=== PATIENT | female | born 1975 | race African-American/Black ===

== ENCOUNTER → 2020-01-09 14:00 | Outpatient (BNVA) | payer OTHER, SELFPAY | PROVIDERS: PCP Nurse Practitioner Family; Referring Provider Nurse Practitioner Family; Visit Provider Urology | DX: N30.10 Interstitial cystitis (chronic) without hematuria (principal); R35.1 Nocturia | CPT/HCPCS: 99212 ==

== ENCOUNTER → 2020-01-11 12:57 | Outpatient (BNVA) | payer OTHER, SELFPAY | PROVIDERS: PCP Nurse Practitioner Family; Visit Provider Urology | DX: R35.1 Nocturia (principal); N30.10 Interstitial cystitis (chronic) without hematuria; R10.2 Pelvic and perineal pain | CPT/HCPCS: 51700; 52000; 99212 ==

== ENCOUNTER → 2020-04-01 14:26 | Outpatient (BNVA) | payer OTHER, SELFPAY | PROVIDERS: PCP Nurse Practitioner Family; Visit Provider Internal Medicine Gastroenterology ==

== ENCOUNTER → 2020-05-21 13:36 | Outpatient (BNVA) | payer OTHER, SELFPAY | PROVIDERS: PCP Nurse Practitioner Family; Visit Provider Urology | DX: Z13.89 Encounter for screening for other disorder (principal) | CPT/HCPCS: 99212 ==

== ENCOUNTER → 2020-07-29 13:26 | Outpatient (BNVA) | payer OTHER, SELFPAY | PROVIDERS: PCP Nurse Practitioner Family; Visit Provider Internal Medicine Gastroenterology ==

== ENCOUNTER → 2020-09-12 14:57 | Outpatient (BNVA) | payer OTHER, SELFPAY | PROVIDERS: PCP Nurse Practitioner Family ==

== ENCOUNTER 2020-10-13 07:04 | Day surgery (SDC) | payer OTHER, SELFPAY ==
[2020-10-07 09:31] VITALS: BMI 35.7
[2020-10-13] VITALS (11 sets, daily range): BP systolic 109–168; BP diastolic 73–99; PULSE 65–84; RESP 16–20; TEMP 36.2–37; O2SAT 95–100
--- NOTE | 2020-10-13 07:39 | P.HPSUR_ITS ---
Pre-Procedural Eval Section A Date of Service: 10/13/20 Section B Chief Complaint: cystitis Details of Present Illness: recurrent IC Relevant Social History: None Present Medications: see Short Stay Collaborative assessment Medical History: No relevant PMH History of Previous Operations: Relevant previous surgery/procedure and date(s) Allergies: Allergies Allergy/AdvReac Type Severity Reaction Status Date / Time sertraline [From ZOLOFT] Allergy Intermediate prolonged Verified 10/07/20 09:01 QT interval Sulfa (Sulfonamide Allergy Intermediate RASH Verified 10/07/20 09:01 Antibiotics) [SULFA (SULFONAMIDE ANTIBIOTICS)] sulfamethoxazole Allergy Intermediate Rash Verified 10/07/20 09:01 [From BACTRIM] trimethoprim [From BACTRIM] Allergy Intermediate Rash Verified 10/07/20 09:01 morphine [MORPHINE] Allergy Mild Rash Verified 10/07/20 09:01 NSAIDS (Non-Steroidal AdvReac Intermediate STOMACH Verified 10/07/20 09:01 Anti-Inflamma UPSET [NSAIDS (NON-STEROIDAL ANTI-INFLAMMA] Review of Systems Sugical H&P ROS: Negative: Constitution, Cardiovascular, Respiratory, Neurological, Psychiatric, Hem-Onc, Allergic/Immunologic, Gastrointestinal, Genitourinary, Musculoskeletal, Integumentary, Endocrine and E yes/Ears/Nose/Throat Exam Surgical H&P Exam: Normal: HEENT, Normal: Heart, Normal: Lungs, Normal: Extremities, Normal: Abdomen, Normal: Skin and Normal: Neurological Plan Diagnosis/Plan: Unchanged (hydrodistention) I have reviewed the history and physical and performed a pertinent physical examination on my patient. No changes have occurred unless specified.
--- NOTE | 2020-10-13 07:41 | P.CONAN_ITS ---
HPI - Anesthesia Eval Consult details Narrative: 45 yo female patient for Cystoscopy, hydrodistension PMFSH Active Problems Active Problems: All Active Problems (Updated 10/07/20 @ 16:44 by Moraima marie) Nausea & vomiting (Acute) Diarrhea associated with pseudomembranous colitis (Acute) Epigastric abdominal pain (Acute) Dysuria (Acute) Interstitial cystitis (Acute) Nocturia more than twice per night (Acute) Pelvic pain in female (Acute) Past Medical History Medical History Anxiety Arthritis Asthma Burn injury Elevated cholesterol HTN (hypertension) Hypersomnia IBS (irritable bowel syndrome) Low back pain Mood disorder Numbness OAB (overactive bladder) Sleep apnea SOB (shortness of breath) Family History Family History Father Hx of colon cancer, stage IV Mother Family history of high blood pressure Family history of problems with anesthesia: No Surgical History Surgical History H/O gastric bypass History of History of colonoscopy History of cystoscopy Hx of endoscopy Hx of hysterectomy Hx of laparoscopic gastric banding History of Problems with Anesthesia: No Social History Social History Alcohol intake: never Patient Tobacco Use Status: Never used Tobacco Use of substances other than those prescribed or required for medical reasons: Yes Substance Use Type: Marijuana Substance Use Frequency: Daily Are you DNR?: No Advance Directives: No Advance Directives Information Provided: No Advance Directives on File: No Patient : No Meds Allergies Allergy/AdvReac Type Severity Reaction Status Date / Time sertraline [From ZOLOFT] Allergy Intermediate prolonged Verified 10/07/20 09:01 QT interval Sulfa (Sulfonamide Allergy Intermediate RASH Verified 10/07/20 09:01 Antibiotics) [SULFA (SULFONAMIDE ANTIBIOTICS)] sulfamethoxazole Allergy Intermediate Rash Verified 10/07/20 09:01 [From BACTRIM] trimethoprim [From BACTRIM] Allergy Intermediate Rash Verified 10/07/20 09:01 morphine [MORPHINE] Allergy Mild Rash Verified 10/07/20 09:01 NSAIDS (Non-Steroidal AdvReac Intermediate STOMACH Verified 10/07/20 09:01 Anti-Inflamma UPSET [NSAIDS (NON-STEROIDAL ANTI-INFLAMMA] Active Medications: Current Medications Generic Name Dose Route Start Last Admin Trade Name Monica PRN Reason Stop Dose Admin Levofloxacin 500 mg 10/13/20 07:38 Levofloxacin 500 Mg Tablet PO 10/13/20 07:39 ONCE ONE Home Medications Medication Instructions Recorded Confirmed Last Taken Type amlodipine 2.5 mg tablet 25 mg PO DAILY tab 07/29/20 10/07/20 10/13/20 06:30 History clonazepam 0.5 mg disintegrating 0.5 mg PO DAILY 07/29/20 10/07/20 10/13/20 06:30 History tablet promethazine 25 mg tablet 25 mg PO TID PRN 07/29/20 10/07/20 Unknown History zolpidem 5 mg tablet (Ambien) 5 mg PO BEDTIME PRN 07/29/20 10/07/20 Unknown History albuterol sulfate 1 vial INHALATION Q6H 10/07/20 10/07/20 Unknown History albuterol sulfate 90 mcg/actuation 2 puff PO Q6H PRN 10/07/20 10/07/20 Unknown History aerosol inhaler (ProAir HFA) bupropion HCl 150 mg 24 hr tablet, 1 tab PO QAM 10/07/20 10/07/20 Unknown History extended release divalproex 500 mg tablet,extended 1,000 mg PO BEDTIME 10/07/20 10/07/20 Unknown History release 24 hr divalproex 500 mg tablet,extended 500 mg PO DAILY@0730 10/07/20 10/07/20 10/13/20 06:30 History release 24 hr fluoxetine 10 mg capsule 10 mg PO DAILY 10/07/20 10/07/20 10/13/20 06:30 History fluticasone propionate 220 2 puff PO BID 10/07/20 10/07/20 Unknown History mcg/actuation HFA aerosol inhaler (Flovent HFA) gabapentin 100 mg capsule 200 mg PO TID 10/07/20 10/07/20 10/13/20 06:30 History montelukast 10 mg tablet 1 tab PO DAILY 10/07/20 10/07/20 Unknown History oxycodone 15 mg tablet 1 tab PO Q4H PRN 10/07/20 10/07/20 10/13/20 06:30 History quetiapine 200 mg tablet 1 tab PO BEDTIME PRN 10/07/20 10/07/20 Unknown History Exam Exam Date and Time: October 13, 2020 0741 Height,Weight and Vital Signs: Height 5 ft 5 in Weight 97.522 kg Last Vital Signs Temp 98.6 F 10/13/20 07:29 Pulse 68 10/13/20 07:29 Resp 16 10/13/20 07:29 BP 109/80 10/13/20 07:29 Pulse Ox 95 10/13/20 07:29 Airway Mallampati Class: II TM Dist: >3cm Neck ROM: Full Partial: Upper and Lower Heart: RRR Lungs: CTAB Assessment and Plan Assessment Anesthesia Assessment: Anesthesia Plan Discussed and Chart Reviewed Final Anesthetic Review Family History of Problems with Anesthesia: No History of Problems with Anesthesia: No NPO: Yes ASA Class: III Final Preanesthetic Review: No Changes in Pt Med Stat, Meds/Allgs Chart Reviewed , Consent Obtained/Reviewed and Anes Risks/Benef Reviewed Patient Risk: Intermediate Procedure Risk: Low Assessment/Block/Sedation in SS: Assess/Block/Sedation-SS Anesthetic Plan Anesthetic Plan: GA Disposition: Standard PACU
[2020-10-13] MEDS: levoFLOXacin 500 MG TABLET PO (07:43)
[2020-10-13] MEDS: Lactated Ringers 1,000 ML 100 ML IVCONT (07:43)
--- NOTE | 2020-10-13 08:26 | W.PM.OPN ---
Operative Note Operative Note Date of Service: 10/13/20 Narrative: PreOperative Diagnosis: Interstitial cystitis with pelvic pain Post Operative Diagnosis: Interstitial cystitis with pelvic pain Procedure: Hydrodistention Surgeon: Dr Kenneth Rodriguez Anesthesia: General Indications for procedure: Is a 45-year-old female with known interstitial cystitis. Prior hydrodistention with success in 2019. Recurrent pelvic pain syndrome. Requesting repeat hydrodistention. Procedure: After informed consent was verified the patient was brought to the operating room and placed in a supine position. Anesthesia was administered per protocol. The patient was placed in a modified dorsal lithotomy position and prepped and draped in sterile fashion. Safety pause time-out was observed. Antibiotics being given. A 22 [place]onian cystoscope was used to empty the bladder. A mixture of bupivacaine lidocaine gel 20 cc was instilled into the bladder and allowed to sit for 2-3 minutes. A belladonna and opiate rectal suppository was placed. Hydrodistention of the bladder was performed. The bladder was filled and allowed to sit for 2 minutes. Filling was from a height of 1 m. On the 1st fill there was 850 cc within the bladder. Cystoscopy revealed glomerulations consistent with interstitial cystitis. Second filling of the bladder was performed in similar fashion. Volume was approximately 1000 cc. Terminal hematuria noted. The the bladder was emptied. The patient tolerated procedure well was extubated in operating room transferred in stable condition to the recovery area. Appropriate postprocedure pain medication was provided. Pathology: None Drains: None
[2020-10-13] MEDS: Acetaminophen 325 MG TABLET 650 MG PO (08:44)
[2020-10-13] MEDS: Phenazopyridine HCL 100 MG TABLET PO (08:45)
[2020-10-13] MEDS: oxyCODONE HCl Immed Release 5 MG TABLET PO (08:46)
[2020-10-13] MEDS: fentaNYL citrate/PF 100 MCG/2 ML VIAL 25 MCG IVPUSH ×2 (09:20→09:27)
== END 2020-10-13 10:20 | disposition home or self-care (01) ==
PROVIDERS: PCP Nurse Practitioner Family; Visit Provider Urology
PROC: 0T7B7ZZ Dilation of Bladder, Via Natural or Artificial Opening (ICD-10-PCS; CPT 52260; principal; 2020-10-13 08:30)
DX: N30.10 Interstitial cystitis (chronic) without hematuria (principal); R10.2 Pelvic and perineal pain; I10 Essential (primary) hypertension; F41.9 Anxiety disorder, unspecified; G47.33 Obstructive sleep apnea (adult) (pediatric); G47.10 Hypersomnia, unspecified; F12.90 Cannabis use, unspecified, uncomplicated; Z79.51 Long term (current) use of inhaled steroids; Z79.1 Long term (current) use of non-steroidal anti-inflammatories (NSAID); Z79.899 Other long term (current) drug therapy; Z88.2 Allergy status to sulfonamides; Z88.8 Allergy status to other drugs, medicaments and biological substances; Z98.84 Bariatric surgery status
CPT/HCPCS: 52260; J1100; J2250; J2405; J3010

== ENCOUNTER → 2020-12-11 14:01 | Outpatient (BNVA) | payer OTHER, SELFPAY | PROVIDERS: PCP Nurse Practitioner Family | DX: R35.1 Nocturia (principal) | CPT/HCPCS: 51798; 99212 ==

== ENCOUNTER 2020-12-30 16:15 | Outpatient (REF) | payer OTHER, SELFPAY ==
[2020-12-30 17:27] LABS: Anion Gap 18 (12-20); Blood Urea Nitrogen 12 mg/dL (9-16); Calcium 9.1 mg/dL (8.4-10.2); Carbon Dioxide 20 mmol/L (22-29); Chloride 106 mmol/L (96-108); Estimated Glomerular Filt Rate > 60; Glucose Random 85 mg/dL (60-115); Potassium 4.7 mmol/L (3.3-5.1); Sodium 139 mmol/L (135-145)
[2020-12-30 17:30] LABS: Valproate 109.6 mcg/mL (50.0-100.0)
== END 2020-12-30 16:16 | disposition home or self-care (01) ==
LOC: HO.LAB 16:15
PROVIDERS: PCP Nurse Practitioner Family; Visit Provider Psychiatry & Neurology Neurology
DX: R55 Syncope and collapse (principal); Z79.899 Other long term (current) drug therapy
CPT/HCPCS: 36415; 80048; 80164

== ENCOUNTER → 2021-02-03 09:58 | Outpatient (BNVA) | payer OTHER, SELFPAY | PROVIDERS: PCP Nurse Practitioner Family; Visit Provider Internal Medicine Gastroenterology ==

== ENCOUNTER → 2021-02-10 12:58 | Outpatient (BNVA) | payer OTHER, SELFPAY | PROVIDERS: PCP Nurse Practitioner Family ==

== ENCOUNTER 2021-02-23 13:48 | Outpatient (REF) | payer OTHER, SELFPAY ==
[2021-02-23 14:16] LABS: Appearance Urine CLEAR; Color Urine YELLOW; Glucose Urine UA NEG (NEG); Leukocyte Esterase Urine NEG (NEG); Nitrite Urine NEG (NEG); PH 5.5 (5.0-8.0); Specific Gravity - Urine >= 1.030 (1.005-1.025); Urine Blood NEG (NEG); Urine Ketones NEG (NEG); Urine Protein NEG (NEG-TRACE)
[2021-02-23 14:46] LABS: Mucus Urine 2+ /LPF; RBC Urine 0 /HPF (0); Squamous Epithelial Cell Urine 3+ /LPF
== END 2021-02-23 13:49 | disposition home or self-care (01) ==
LOC: HO.LAB 13:48
PROVIDERS: PCP Nurse Practitioner Family
DX: R30.0 Dysuria (principal)
CPT/HCPCS: 81001; 87086

== ENCOUNTER → 2021-04-10 13:51 | Outpatient (BNVA) | payer MEDICARE, MEDICAID, SELFPAY | PROVIDERS: PCP Nurse Practitioner Family | DX: Z13.89 Encounter for screening for other disorder (principal) | CPT/HCPCS: Q3014 ==

== ENCOUNTER → 2021-05-25 12:53 | Outpatient (BNVA) | payer MEDICARE, MEDICAID, SELFPAY | PROVIDERS: PCP Nurse Practitioner Family; Visit Provider Internal Medicine Gastroenterology | DX: Z13.89 Encounter for screening for other disorder (principal) | CPT/HCPCS: Q3014 ==

== ENCOUNTER → 2021-08-21 09:06 | Outpatient (BNVA) | payer MEDICARE, MEDICAID, SELFPAY | PROVIDERS: PCP Nurse Practitioner Family; Visit Provider Internal Medicine Gastroenterology | DX: K59.03 Drug induced constipation (principal); K59.00 Constipation, unspecified; T40.2X5D Adverse effect of other opioids, subsequent encounter; R11.2 Nausea with vomiting, unspecified | CPT/HCPCS: 99212 ==

== ENCOUNTER → 2021-08-31 13:03 | Outpatient (BNVA) | payer MEDICARE, MEDICAID, SELFPAY | PROVIDERS: PCP Nurse Practitioner Family | DX: N30.10 Interstitial cystitis (chronic) without hematuria (principal) | CPT/HCPCS: Q3014 ==

== ENCOUNTER 2021-09-15 14:14 | Outpatient (REF) | payer MEDICARE, MEDICAID, SELFPAY ==
--- NOTE | ~2021-09-15 | XR_ITS ---
EXAMINATION: XR ABDOMEN KUB CLINICAL INDICATION: Constipation. COMPARISON: 02/02/2019 TECHNIQUE: 3 views of the abdomen. FINDINGS: The lung bases are clear. The bowel gas pattern is nonobstructive. Moderate gas and stool in the colon. Surgical clips and anastomotic suture material projects over the left upper quadrant. Sclerosis of the left sacroiliac joint. XR/XR KUB IMPRESSION: Moderate stool burden.
[2021-09-15 15:02] LABS: MANUAL DIFF FLAG NO
[2021-09-15 15:21] LABS: Alanine Aminotransferase 9 U/L (0-31); Albumin Level 4.1 g/dL (3.5-5.0); Alkaline Phosphatase 71 U/L (39-117); Anion Gap 12 (12-20); Aspartate Amino Transferase 12 U/L (5-31); Bilirubin Total 0.4 mg/dL (0.0-1.0); Blood Urea Nitrogen 9 mg/dL (9-16); Calcium 8.8 mg/dL (8.4-10.2); Carbon Dioxide 26 mmol/L (22-29); Chloride 106 mmol/L (96-108); Estimated Glomerular Filt Rate > 60; Glucose Random 97 mg/dL (60-115); Potassium 3.6 mmol/L (3.3-5.1); Sodium 140 mmol/L (135-145); Total Protein 7.2 g/dL (6.5-8.0)
[2021-09-15 15:43] LABS: Erythrocyte Sedimentation Rate 19 MM/HR (0-20)
[2021-09-15 15:44] LABS: Ferritin 51 ng/mL (10-250); TSH reflex Free T4 0.14 uIU/mL (0.32-4.0)
[2021-09-15 15:58] LABS: Folate 13.3 ng/mL (> or = 4.0); Vitamin B12 293 pg/mL (200-900)
[2021-09-15 16:41] LABS: Free T4 (Free Thyroxine) 1.14 ng/dL (0.71-1.85)
[2021-09-15 19:55] LABS: Basophils Percent Auto 0.6 % (0-2); Eosinophils Percent Auto 0.4 % (0-4); Hematocrit 31.9 % (37.0-47.0); Hemoglobin 11.1 g/dl (12.0-16.0); Imm Gran Abs Auto 0.01 X10*3/uL (0.00-0.03); Imm Gran Pct Auto 0.2 % (0.0-0.4); Lymphocytes Absolute Auto 2.2 X10*3/uL (1.2-4.9); Lymphocytes Percent Auto 40.4 % (20-40); Mean Corpuscular HGB Conc 34.8 g/dl (31.0-35.0); Mean Corpuscular Hemoglobin 29.6 pg (27.0-33.0); Mean Corpuscular Volume 85.1 fL (80.0-98.0); Mean Platelet Volume 10.7 fL (9.4-12.3); Monocytes Absolute Auto 0.5 X10*3/uL (0.1-1.2); Monocytes Percent Auto 8.7 % (2-11); Neutrophils Absolute Auto 2.7 x10*3/uL (2.0-8.3); Neutrophils Percent Auto 49.7 % (45-73); Platelet Count 181 X10*3/uL (160-400); Red Blood Count 3.75 X10*6/uL (4.20-5.50); Red Cell Distribution Width 13.7 % (11.0-16.0); White Blood Count 5.4 X10*3/uL (4.8-10.8)
[2021-09-17 11:31] LABS: Immunoglobulin G 1345 mg/dL (600-1640)
[2021-09-18 16:16] LABS: Zinc 78 mcg/dL (60-130)
[2021-09-18 16:31] LABS: Histamine Plasma <1.5 ng/mL (< OR = 1.8)
[2021-09-18 21:02] LABS: Vitamin A 51 mcg/dL (38-98)
[2021-09-19 11:26] LABS: Vitamin B6 5.4 ng/mL (2.1-21.7)
[2021-09-23 17:37] LABS: Nicotinamide 35 ng/mL; Vit B3 - Nicotinic Acid <20 ng/mL
[2021-09-25 16:37] LABS: Vitamin B5 (Pantothenic Acid) <40 ng/mL (<275)
== END 2021-09-15 14:15 | disposition home or self-care (01) ==
LOC: HO.XRAY 14:14
PROVIDERS: PCP Nurse Practitioner Family; Visit Provider Internal Medicine Gastroenterology
DX: A04.72 Enterocolitis due to Clostridium difficile, not specified as recurrent (principal); R19.7 Diarrhea, unspecified; K52.839 Microscopic colitis, unspecified; K75.81 Nonalcoholic steatohepatitis (NASH); T40.2X5A Adverse effect of other opioids, initial encounter; R11.2 Nausea with vomiting, unspecified; K59.03 Drug induced constipation
CPT/HCPCS: 36415; 74018; 80053; 82306; 82607; 82728; 82746; 82784; 83088; 83520; 84207; 84439; 84443; 84590; 84591; 84630; 85025; 85652

== ENCOUNTER → 2021-09-25 09:09 | Outpatient (BNVA) | payer MEDICARE, MEDICAID, SELFPAY | PROVIDERS: PCP Nurse Practitioner Family; Visit Provider Internal Medicine Gastroenterology | DX: R10.9 Unspecified abdominal pain (principal); M25.569 Pain in unspecified knee | CPT/HCPCS: Q3014 ==

== ENCOUNTER 2021-12-07 09:15 | Day surgery (SDC) | payer MEDICARE, MEDICAID, SELFPAY ==
[2021-12-02 10:24] VITALS: BMI 33.3
--- NOTE | 2021-12-04 10:07 | P.CONAN_ITS ---
Documented by User: Cecilia Wolff NP 12/04/21 10:14 HPI - Anesthesia Eval Consult details Narrative: 46yo F for Cystoscopy Bladder Botox Injection s/p same 10/2020 [facility]-LMA 4 ? Daily opioids *Multiple Med Allergies* PMFSH Active Problems Active Problems: All Active Problems (Updated 09/25/21 @ 09:30 by Sivan Patino MD) Nausea & vomiting (Acute) Diarrhea associated with pseudomembranous colitis (Acute) Epigastric abdominal pain (Acute) Dysuria (Acute) Interstitial cystitis (Acute) Nocturia more than twice per night (Acute) Pelvic pain in female (Acute) Therapeutic opioid-induced constipation (OIC) (Acute) Constipation (Acute) Visceral abdominal pain (Acute) Knee pain (Acute) Past Medical History Medical History (Updated 09/25/21 @ 09:30 by Sivan Patino MD) Anxiety Arthritis Asthma Burn injury Elevated cholesterol HTN (hypertension) Hypersomnia IBS (irritable bowel syndrome) Low back pain Mood disorder Numbness OAB (overactive bladder) Sleep apnea SOB (shortness of breath) Family History Family History Father Hx of colon cancer, stage IV Mother Family history of high blood pressure Family history of problems with anesthesia: No Surgical History Surgical History (Updated 12/02/21 @ 10:30 by Jannette Alicia RN) H/O gastric bypass History of History of colonoscopy History of cystoscopy Hx of endoscopy Hx of hysterectomy Hx of laparoscopic gastric banding History of Problems with Anesthesia: No Social History Social History Alcohol intake: never Patient Tobacco Use Status: Never used Tobacco Substance Use Type: Marijuana Meds Allergies Allergy/AdvReac Type Severity Reaction Status Date / Time sertraline [From ZOLOFT] Allergy Intermediate prolonged Verified 09/25/21 09:09 QT interval Sulfa (Sulfonamide Allergy Intermediate RASH Verified 09/25/21 09:09 Antibiotics) [SULFA (SULFONAMIDE ANTIBIOTICS)] sulfamethoxazole Allergy Intermediate Rash Verified 09/25/21 09:09 [From BACTRIM] trimethoprim [From BACTRIM] Allergy Intermediate Rash Verified 09/25/21 09:09 morphine [MORPHINE] Allergy Mild Rash Verified 09/25/21 09:09 haloperidol [From Haldol] Allergy Unknown unknown Verified 12/02/21 10:28 NSAIDS (Non-Steroidal AdvReac Intermediate STOMACH Verified 09/25/21 09:09 Anti-Inflamma UPSET [NSAIDS (NON-STEROIDAL ANTI-INFLAMMA] Home Medications Medication Instructions Recorded Confirmed Last Taken Type clonazepam 0.5 mg disintegrating 0.5 mg PO DAILY 07/29/20 10/07/20 10/13/20 06:30 History tablet promethazine 25 mg tablet 25 mg PO TID PRN Nausea 07/29/20 10/07/20 Unknown History albuterol sulfate 2.5 mg/3 mL 1 vial inhalation Q6H 10/07/20 12/02/21 Unknown History (0.083 %) solution for nebulization albuterol sulfate 90 mcg/actuation 2 puff PO Q6H PRN Shortness Of 10/07/20 12/02/21 Unknown History aerosol inhaler (ProAir HFA) Breath Or Wheezing fluoxetine 10 mg capsule 10 mg PO DAILY 10/07/20 10/07/20 10/13/20 06:30 History fluticasone propionate 220 2 puff PO BID 10/07/20 12/02/21 Unknown History mcg/actuation HFA aerosol inhaler (Flovent HFA) gabapentin 100 mg capsule 200 mg PO TID 10/07/20 12/02/21 10/13/20 06:30 History montelukast 10 mg tablet 1 tab PO DAILY 10/07/20 12/02/21 Unknown History oxycodone 15 mg tablet 1 tab PO Q4H PRN pain 10/07/20 10/07/20 10/13/20 06:30 History quetiapine 200 mg tablet 1 tab PO BEDTIME PRN insomnia 10/07/20 10/07/20 Unknown History amlodipine 10 mg tablet 10 mg PO DAILY 02/03/21 Unknown History bupropion HCl 300 mg 24 hr tablet, 300 mg PO QAM 02/03/21 12/02/21 Unknown History extended release fluoxetine 20 mg capsule 20 mg PO DAILY 02/03/21 12/02/21 Unknown History fluticasone propionate 50 2 spray intranasal DAILY 02/03/21 12/02/21 Unknown History mcg/actuation nasal spray,suspension oxcarbazepine 150 mg tablet 150 mg PO BID 02/03/21 12/02/21 Unknown History quetiapine 100 mg tablet 100 mg PO BEDTIME PRN insomnia 02/03/21 12/02/21 Unknown History tizanidine 2 mg tablet 2 mg PO Q8H PRN muscle spasm 02/03/21 Unknown History sucralfate 1 gram tablet 1 g PO QID 08/21/21 12/02/21 Unknown History ursodiol 300 mg capsule 300 mg PO BID 08/21/21 12/02/21 Unknown History amlodipine 5 mg-benazepril 10 mg 1 cap PO DAILY 09/25/21 12/02/21 Unknown History capsule buspirone 7.5 mg tablet 7.5 mg PO BID 09/25/21 12/02/21 Unknown History clonazepam 0.5 mg tablet 1 mg PO BID 09/25/21 12/02/21 Unknown History nitroglycerin 0.2 mg/hr 1 patch topical DAILY 09/25/21 Unknown History transdermal 24 hour patch scopolamine base 1 mg over 3 days 1 patch topical Q3D 09/25/21 Unknown History transdermal patch zolpidem 5 mg tablet 5 mg PO BEDTIME PRN Insomnia 09/25/21 12/02/21 Unknown History Exam Exam Date and Time: December 04, 2021 1007 Height,Weight and Vital Signs: Height 5 ft 5 in Weight 90.718 kg Pertinent Lab Results Pertinent Lab Results: Laboratory Tests 09/15/21 09/15/21 15:01 15:01 WBC 5.4 Hgb 11.1 L Hct 31.9 L Plt Count 181 Sodium 140 Potassium 3.6 D Chloride 106 Carbon Dioxide 26 BUN 9 Creatinine 0.89 Assessment and Plan Assessment Anesthesia Assessment: Chart Reviewed Final Anesthetic Review Family History of Problems with Anesthesia: No History of Problems with Anesthesia: No Documented by User: Rahat Plascencia MD 12/07/21 18:41 [facility] Past Medical History Medical History (Updated 09/25/21 @ 09:30 by Sivan Patino MD) Anxiety Arthritis Asthma Burn injury Elevated cholesterol HTN (hypertension) Hypersomnia IBS (irritable bowel syndrome) Low back pain Mood disorder Numbness OAB (overactive bladder) Sleep apnea SOB (shortness of breath) Functional capacity: uses cane/walker Family History Family History Father Hx of colon cancer, stage IV Mother Family history of high blood pressure Surgical History Surgical History (Updated 12/02/21 @ 10:30 by Jannette Alicia RN) H/O gastric bypass History of History of colonoscopy History of cystoscopy Hx of endoscopy Hx of hysterectomy Hx of laparoscopic gastric banding Social History Social History Alcohol intake: never Patient Tobacco Use Status: Never used Tobacco Substance Use Type: Marijuana Meds Allergies Allergy/AdvReac Type Severity Reaction Status Date / Time sertraline [From ZOLOFT] Allergy Intermediate prolonged Verified 09/25/21 09:09 QT interval Sulfa (Sulfonamide Allergy Intermediate RASH Verified 09/25/21 09:09 Antibiotics) [SULFA (SULFONAMIDE ANTIBIOTICS)] sulfamethoxazole Allergy Intermediate Rash Verified 09/25/21 09:09 [From BACTRIM] trimethoprim [From BACTRIM] Allergy Intermediate Rash Verified 09/25/21 09:09 morphine [MORPHINE] Allergy Mild Rash Verified 09/25/21 09:09 haloperidol [From Haldol] Allergy Unknown unknown Verified 12/02/21 10:28 NSAIDS (Non-Steroidal AdvReac Intermediate STOMACH Verified 09/25/21 09:09 Anti-Inflamma UPSET [NSAIDS (NON-STEROIDAL ANTI-INFLAMMA] Home Medications Medication Instructions Recorded Confirmed Last Taken Type clonazepam 0.5 mg disintegrating 0.5 mg PO DAILY 07/29/20 10/07/20 10/13/20 06:30 History tablet promethazine 25 mg tablet 25 mg PO TID PRN Nausea 07/29/20 10/07/20 Unknown History albuterol sulfate 2.5 mg/3 mL 1 vial inhalation Q6H 10/07/20 12/02/21 Unknown History (0.083 %) solution for nebulization albuterol sulfate 90 mcg/actuation 2 puff PO Q6H PRN Shortness Of 10/07/20 12/02/21 Unknown History aerosol inhaler (ProAir HFA) Breath Or Wheezing fluoxetine 10 mg capsule 10 mg PO DAILY 10/07/20 10/07/20 10/13/20 06:30 History fluticasone propionate 220 2 puff PO BID 10/07/20 12/02/21 Unknown History mcg/actuation HFA aerosol inhaler (Flovent HFA) gabapentin 100 mg capsule 200 mg PO TID 10/07/20 12/02/21 10/13/20 06:30 History montelukast 10 mg tablet 1 tab PO DAILY 10/07/20 12/02/21 Unknown History oxycodone 15 mg tablet 1 tab PO Q4H PRN pain 10/07/20 10/07/20 10/13/20 06:30 History quetiapine 200 mg tablet 1 tab PO BEDTIME PRN insomnia 10/07/20 10/07/20 Unknown History amlodipine 10 mg tablet 10 mg PO DAILY 02/03/21 Unknown History bupropion HCl 300 mg 24 hr tablet, 300 mg PO QAM 02/03/21 12/02/21 Unknown History extended release fluoxetine 20 mg capsule 20 mg PO DAILY 02/03/21 12/02/21 Unknown History fluticasone propionate 50 2 spray intranasal DAILY 02/03/21 12/02/21 Unknown History mcg/actuation nasal spray,suspension oxcarbazepine 150 mg tablet 150 mg PO BID 02/03/21 12/02/21 Unknown History quetiapine 100 mg tablet 100 mg PO BEDTIME PRN insomnia 02/03/21 12/02/21 U nknown History tizanidine 2 mg tablet 2 mg PO Q8H PRN muscle spasm 02/03/21 Unknown History sucralfate 1 gram tablet 1 g PO QID 08/21/21 12/02/21 Unknown History ursodiol 300 mg capsule 300 mg PO BID 08/21/21 12/02/21 Unknown History amlodipine 5 mg-benazepril 10 mg 1 cap PO DAILY 09/25/21 12/02/21 Unknown History capsule buspirone 7.5 mg tablet 7.5 mg PO BID 09/25/21 12/02/21 Unknown History clonazepam 0.5 mg tablet 1 mg PO BID 09/25/21 12/02/21 Unknown History nitroglycerin 0.2 mg/hr 1 patch topical DAILY 09/25/21 Unknown History transdermal 24 hour patch scopolamine base 1 mg over 3 days 1 patch topical Q3D 09/25/21 Unknown History transdermal patch zolpidem 5 mg tablet 5 mg PO BEDTIME PRN Insomnia 09/25/21 12/02/21 Unknown History Exam Airway Mallampati Class: IV TM Dist: >3cm Neck ROM: Full Loose/Missing/Broken Teeth: Yes (Multiple chipped , fillings ) Heart: S1,S2 Lungs: b/l breath sounds Assessment and Plan Assessment Anesthesia Assessment: Anesthesia Plan Discussed Final Anesthetic Review NPO: Yes ASA Class: II Final Preanesthetic Review: Meds/Allgs Chart Reviewed, Consent Obtained/Reviewed and Anes Risks/Benef Reviewed Patient Risk: Intermediate Procedure Risk: Intermediate Anesthetic Plan Anesthetic Plan: GA Disposition: Standard PACU
[2021-12-07 10:32] VITALS: BP 157/91; PULSE 67; RESP 16; TEMP 36.1; O2SAT 97; BMI 33.3
[2021-12-07] MEDS: Lactated Ringers 1,000 ML 100 ML IVCONT (10:53)
[2021-12-07] MEDS: levoFLOXacin 500 MG TABLET PO (11:07)
--- NOTE | 2021-12-07 11:46 | MHC.SHP ---
Pre-Procedural Eval Section A Date of Service: 12/07/21 The patient is an INPATIENT: No Changes since office visit: No Cold of Flu in the past 2 weeks, No New Medical Problems, No Changes in Medication and No Patient answered all questions The History & Physical has been completed within 30 days and I have reviewed it.: Yes Section B Chief Complaint: Interstitial cystitis (chronic) with hematuria Details of Present Illness: IC Relevant Family History (Specify if Yes): No Relevant Social History: None Present Medications: see Short Stay Collaborative assessment Medical History: No relevant PMH History of Previous Operations: Relevant previous surgery/procedure and date(s) Allergies: Allergies Allergy/AdvReac Type Severity Reaction Status Date / Time sertraline [From ZOLOFT] Allergy Intermediate prolonged Verified 09/25/21 09:09 QT interval Sulfa (Sulfonamide Allergy Intermediate RASH Verified 09/25/21 09:09 Antibiotics) [SULFA (SULFONAMIDE ANTIBIOTICS)] sulfamethoxazole Allergy Intermediate Rash Verified 09/25/21 09:09 [From BACTRIM] trimethoprim [From BACTRIM] Allergy Intermediate Rash Verified 09/25/21 09:09 morphine [MORPHINE] Allergy Mild Rash Verified 09/25/21 09:09 haloperidol [From Haldol] Allergy Unknown unknown Verified 12/02/21 10:28 NSAIDS (Non-Steroidal AdvReac Intermediate STOMACH Verified 09/25/21 09:09 Anti-Inflamma UPSET [NSAIDS (NON-STEROIDAL ANTI-INFLAMMA] Review of Systems Sugical H&P ROS: Negative: Constitution, Cardiovascular, Respiratory, Neurological, Psychiatric, Hem-Onc, Allergic/Immunologic, Gastrointestinal, Genitourinary, Musculoskeletal, Integumentary, Endocrine and Eyes/Ears/Nose/Throat Exam Surgical H&P Exam: Normal: HEENT, Normal: Heart, Normal: Lungs, Normal: Extremities, Normal: Abdomen, Normal: Skin and Normal: Neurological Plan Diagnosis/Plan: Unchanged (Plan hydrodistention) I have reviewed the history and physical and performed a pertinent physical examination on my patient. No changes have occurred unless specified.
[2021-12-07 12:40] VITALS: BP 169/97; PULSE 64; RESP 18; TEMP 36.7; O2SAT 100
--- NOTE | 2021-12-07 12:43 | W.PM.OPN ---
Operative Note Operative Note Date of Service: 12/07/21 Narrative: PreOperative Diagnosis: Interstitial cystitis with pelvic pain Post Operative Diagnosis: Interstitial cystitis with pelvic pain Procedure: Hydrodistention Surgeon: Dr Kenneth Rodriguez Anesthesia: General Indications for procedure: 46-year-old female with known interstitial cystitis. Last hydrodistention was October 2020. Procedure: After informed consent was verified the patient was brought to the operating room and placed in a supine position. Anesthesia was administered per protocol. The patient was placed in a modified dorsal lithotomy position and prepped and draped in sterile fashion. Safety pause time-out was observed. Antibiotics being given. A 22 Chinese cystoscope was used to empty the bladder. A mixture of bupivacaine lidocaine gel 20 cc was instilled into the bladder and allowed to sit for 2-3 minutes. A belladonna and opiate rectal suppository was placed. Hydrodistention of the bladder was performed. The bladder was filled and allowed to sit for 2 minutes. Filling was from a height of 1 m. On the 1st fill there was Eight hundred fifty cc within the bladder. Cystoscopy revealed glomerulations consistent with interstitial cystitis. moderate trabeculations consistent with collagen deposition and decreasing bladder wall compliance. Second filling of the bladder was performed in similar fashion. Volume was approximately 950 cc. Terminal hematuria noted. The the bladder was emptied. The patient tolerated procedure well was extubated in operating room transferred in stable condition to the recovery area. Appropriate postprocedure pain medication was provided. Pathology: - Drains: None
[2021-12-07 12:45] VITALS: BP 173/103; PULSE 63; RESP 18; O2SAT 100
[2021-12-07 12:50] VITALS: BP 151/74; PULSE 85; RESP 18; O2SAT 98
[2021-12-07] MEDS: Acetaminophen 325 MG TABLET 650 MG PO (12:52)
[2021-12-07] MEDS: Phenazopyridine HCL 100 MG TABLET PO (12:52)
[2021-12-07] MEDS: oxyCODONE HCl Immed Release 5 MG TABLET PO (12:53)
[2021-12-07 12:57] VITALS: BP 157/98; PULSE 78; RESP 18; O2SAT 100
[2021-12-07 13:12] VITALS: BP 156/100; PULSE 74; RESP 16; TEMP 36.4; O2SAT 99
== END 2021-12-07 14:37 | disposition home or self-care (01) ==
PROVIDERS: PCP Nurse Practitioner Family; Visit Provider Urology
PROC: 0T7B7ZZ Dilation of Bladder, Via Natural or Artificial Opening (ICD-10-PCS; CPT 52260; principal; 2021-12-07 10:40)
DX: N30.11 Interstitial cystitis (chronic) with hematuria (principal); N32.81 Overactive bladder; I10 Essential (primary) hypertension; E78.00 Pure hypercholesterolemia, unspecified; J45.909 Unspecified asthma, uncomplicated; G47.33 Obstructive sleep apnea (adult) (pediatric); Z79.51 Long term (current) use of inhaled steroids; Z79.899 Other long term (current) drug therapy; Z88.2 Allergy status to sulfonamides; Z88.8 Allergy status to other drugs, medicaments and biological substances; F12.90 Cannabis use, unspecified, uncomplicated; Z98.84 Bariatric surgery status
CPT/HCPCS: 52260; J1100; J2250; J2405; J3010

== ENCOUNTER → 2021-12-28 14:15 | Outpatient (BNVA) | payer MEDICARE, MEDICAID, SELFPAY | PROVIDERS: PCP Nurse Practitioner Family; Visit Provider Internal Medicine | DX: M54.50 Low back pain, unspecified (principal); G89.29 Other chronic pain; M53.3 Sacrococcygeal disorders, not elsewhere classified; M25.561 Pain in right knee; M25.562 Pain in left knee; M47.816 Spondylosis without myelopathy or radiculopathy, lumbar region; R10.9 Unspecified abdominal pain; Z98.84 Bariatric surgery status | CPT/HCPCS: 99202 ==

== ENCOUNTER → 2022-01-22 14:48 | Outpatient (BNVA) | payer MEDICARE, MEDICAID, SELFPAY | PROVIDERS: PCP Nurse Practitioner Family; Visit Provider Urology | DX: N30.10 Interstitial cystitis (chronic) without hematuria (principal); R10.2 Pelvic and perineal pain; R23.2 Flushing; T44.3X5A Adverse effect of other parasympatholytics [anticholinergics and antimuscarinics] and spasmolytics, initial encounter | CPT/HCPCS: Q3014 ==

== ENCOUNTER → 2022-01-25 13:59 | Outpatient (BNVA) | payer MEDICARE, MEDICAID, SELFPAY | PROVIDERS: PCP Nurse Practitioner Family; Visit Provider Internal Medicine Gastroenterology | DX: Z13.89 Encounter for screening for other disorder (principal) | CPT/HCPCS: 99212 ==

== ENCOUNTER 2022-01-25 14:42 | Emergency (ER) | payer MEDICARE, MEDICAID, SELFPAY ==
[2022-01-25 15:07] VITALS: BP 148/94; PULSE 83; RESP 20; TEMP 36.4; O2SAT 99; BMI 33.3
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
--- NOTE | 2022-01-25 15:12 | ECG_ITS ---
Test Reason : DEHYDRATION Blood Pressure : / mmHG Vent. Rate : 073 BPM Atrial Rate : 073 BPM P-R Int : 172 ms QRS Dur : 074 ms QT Int : 418 ms P-R-T Axes : 014 007 008 degrees QTc Int : 460 ms Normal sinus rhythm Nonspecific T wave abnormality Prolonged QT Abnormal ECG No previous ECGs available Referred By: Rhea Vicente Electronically Signed By:JARETH LOPEZ MD
[2022-01-25 17:43] LABS: Imm Gran Abs Auto 0.03 X10*3/uL (0.00-0.03); Imm Gran Pct Auto 0.3 % (0.0-0.4); MANUAL DIFF FLAG SCAN; PLT CLUMP 1; Red Cell Distribution Width 13.1 % (11.0-16.0); SCAN SMEAR FLAG 1
[2022-01-25 17:45] LABS: Basophils Percent Auto 0.4 % (0-2); Eosinophils Percent Auto 0.1 % (0-4); Hematocrit 36.5 % (37.0-47.0); Hemoglobin 12.4 g/dl (12.0-16.0); Lymphocytes Absolute Auto 2.3 X10*3/uL (1.2-4.9); Lymphocytes Percent Auto 21.2 % (20-40); Mean Corpuscular Hemoglobin 29.2 pg (27.0-33.0); Mean Corpuscular Volume 85.9 fL (80.0-98.0); Monocytes Absolute Auto 0.4 X10*3/uL (0.1-1.2); Neutrophils Absolute Auto 8.1 x10*3/uL (2.0-8.3); Red Blood Count 4.25 X10*6/uL (4.20-5.50)
[2022-01-25 17:47] LABS: COVID-19 Test Negative (Negative); IDNOW Serial# 9DB6401D
[2022-01-25 17:48] LABS: White Blood Count 10.9 X10*3/uL (4.8-10.8)
[2022-01-25 17:49] LABS: Lactic Acid 0.9 mmol/L (0.5-2.0)
[2022-01-25 17:52] LABS: Alanine Aminotransferase 12 U/L (0-31); Albumin Level 4.8 g/dL (3.5-5.0); Alkaline Phosphatase 90 U/L (39-117); Anion Gap 18 (12-20); Aspartate Amino Transferase 17 U/L (5-31); Bilirubin Direct 0.2 mg/dL (0.0-0.5); Bilirubin Total 0.5 mg/dL (0.0-1.0); Blood Urea Nitrogen 8 mg/dL (9-16); Calcium 9.6 mg/dL (8.4-10.2); Carbon Dioxide 22 mmol/L (22-29); Chloride 105 mmol/L (96-108); Creatinine Clr Calc Pharmacy 98.8; Estimated Glomerular Filt Rate > 60; Glucose Random 91 mg/dL (60-115); Lipase 21 U/L (8-78); Magnesium 1.8 mg/dL (1.6-2.6); Potassium 3.5 mmol/L (3.3-5.1); Sodium 141 mmol/L (135-145); Total Protein 8.6 g/dL (6.5-8.0)
[2022-01-25 17:56] LABS: Troponin-I High Sensitivity < 3.5 ng/L (<3.5-17.0)
[2022-01-25 18:36] LABS: Mean Platelet Volume 10.4 fL (9.4-12.3); Platelet Count 217 X10*3/uL (160-400); SLIDE REVIEW VERIFIED
[2022-01-25] MEDS: 0.9 % Sodium Chloride 1,000 ML 999 ML IV ×2 (21:31→21:32)
[2022-01-25] MEDS: Prochlorperazine Edisylate 10 MG/2 ML VIAL IVPUSH (21:33)
[2022-01-25] MEDS: HYDROmorphone HCl 1 MG/ML SYRINGE IVPUSH (21:33)
[2022-01-25] MEDS: Midazolam HCl/PF 2 MG/2 ML VIAL 1 MG IVPUSH (21:33)
[2022-01-25] MEDS: Famotidine/PF 20 MG/2 ML VIAL IVPUSH (21:33)
[2022-01-25 22:42] VITALS: BP 145/106; PULSE 77; RESP 18; TEMP 36.6; O2SAT 99
[2022-01-26] VITALS: BP 136/83; PULSE 74; RESP 16; TEMP 36.8; O2SAT 100
[2022-01-26 00:38] LABS: Appearance Urine Clear; Color Urine Yellow; Glucose Urine UA Negative (Negative); Leukocyte Esterase Urine Negative (Negative); Nitrite Urine Negative (Negative); Urine Blood Negative (Negative); Urine Ketones 40 mg/dL (Negative); Urine Protein Trace mg/dL (Neg-Trace)
[2022-01-26 00:48] LABS: Amphetamine Screen Urine Not Detected (Not Detect); Barbiturates, Urine Not Detected (Not Detect); Benzodiazepines Screen Urine POSITIVE (Not Detect); Cannabinoid Screen Urine POSITIVE (Not Detect); Cocaine Screen Urine Not Detected (Not Detect); Fentanyl, urine Not Detected (Not Detect); Opiate Screen Urine Not Detected (Not Detect); Phencyclidine Screen Urine Not Detected (Not Detect)
== END 2022-01-26 01:16 | disposition home or self-care (01) ==
PROVIDERS: Emergency Medicine; Emergency Provider Internal Medicine; PCP Nurse Practitioner Family
DX: R11.15 Cyclical vomiting syndrome unrelated to migraine (principal); R10.9 Unspecified abdominal pain; Z20.822 Contact with and (suspected) exposure to COVID-19; I10 Essential (primary) hypertension; F12.90 Cannabis use, unspecified, uncomplicated; Z79.899 Other long term (current) drug therapy
CPT/HCPCS: 36415; 80048; 80076; 80307; 81003; 83605; 83690; 83735; 84484; 85025; 87040; 87635; 93005; 96361; 96374; 96375; 99212; 99284; J1170; J2250

== ENCOUNTER → 2022-03-29 14:09 | Outpatient (BNVA) | payer MEDICARE, MEDICAID, SELFPAY | PROVIDERS: PCP Nurse Practitioner Family; Visit Provider Internal Medicine Gastroenterology | DX: K58.0 Irritable bowel syndrome with diarrhea (principal); Z98.84 Bariatric surgery status | CPT/HCPCS: Q3014 ==

== ENCOUNTER 2022-04-06 11:26 | Day surgery (SDC) | payer MEDICARE, MEDICAID, SELFPAY ==
--- NOTE | 2022-04-05 10:42 | HO.ANESPROP2 ---
Documented by User: Cecilia Wolff NP 04/05/22 10:45 HPI - Anesthesia Eval Consult details Narrative: 46yo F for Upper Endoscopy and Colonoscopy s/p cysto 11/2021 with GA-LMA 4 Chronic prn opioids *Multiple Med Allergies* PMFSH Active Problems Active Problems: All Active Problems (Updated 01/27/22 @ 00:02 by Austin Sabillon) Lumbar spondylosis (Acute) Right knee pain (Acute) Nausea & vomiting (Acute) Diarrhea associated with pseudomembranous colitis (Acute) Epigastric abdominal pain (Acute) Dysuria (Acute) Interstitial cystitis (Acute) Nocturia more than twice per night (Acute) Pelvic pain in female (Acute) Therapeutic opioid-induced constipation (OIC) (Acute) Constipation (Acute) Visceral abdominal pain (Acute) Knee pain (Acute) Past Medical History Medical History Anxiety Arthritis Asthma Burn injury Elevated cholesterol HTN (hypertension) Hypersomnia IBS (irritable bowel syndrome) Low back pain Mood disorder Numbness OAB (overactive bladder) Sleep apnea SOB (shortness of breath) Family History Family History Father Hx of colon cancer, stage IV Mother Family history of high blood pressure Family history of problems with anesthesia: No Surgical History Surgical History H/O gastric bypass History of History of colonoscopy History of cystoscopy Hx of endoscopy Hx of hernia repair Hx of hysterectomy Hx of laparoscopic gastric banding History of Problems with Anesthesia: No Social History Social History Alcohol intake: never Patient Tobacco Use Status: Never used Tobacco Use of substances other than those prescribed or required for medical reasons: Yes Substance Use Type: Marijuana Substance Use Frequency: Weekly Advance Directives: No Advance Directives Information Provided: Yes Meds Allergies Allergy/AdvReac Type Severity Reaction Status Date / Time sertraline [From ZOLOFT] Allergy Intermediate prolonged Verified 03/29/22 14:10 QT interval Sulfa (Sulfonamide Allergy Intermediate RASH Verified 03/29/22 14:10 Antibiotics) [SULFA (SULFONAMIDE ANTIBIOTICS)] morphine [MORPHINE] Allergy Mild Rash Verified 03/29/22 14:10 haloperidol [From Haldol] Allergy Unknown unknown Verified 03/29/22 14:10 NSAIDS (Non-Steroidal AdvReac Intermediate STOMACH Verified 03/29/22 14:10 Anti-Inflamma UPSET [NSAIDS (NON-STEROIDAL ANTI-INFLAMMA] fentanyl patch Allergy Severe Unresponsiv Uncoded 03/29/22 14:10 e Home Medications Medication Instructions Recorded Confirmed Last Taken Type albuterol sulfate 2.5 mg/3 mL 1 vial inhalation Q6H 10/07/20 01/22/22 Unknown History (0.083 %) solution for nebulization fluticasone propionate 220 2 puff PO BID 10/07/20 01/22/22 Unknown History mcg/actuation HFA aerosol inhaler (Flovent HFA) montelukast 10 mg tablet 1 tab PO DAILY 10/07/20 01/22/22 Unknown History oxycodone 15 mg tablet 1 tab PO Q4H PRN pain 10/07/20 01/22/22 10/13/20 06:30 History quetiapine 200 mg tablet 1 tab PO BEDTIME PRN insomnia 10/07/20 01/22/22 Unknown History bupropion HCl 300 mg 24 hr tablet, 300 mg PO QAM 02/03/21 01/22/22 Unknown History extended release fluticasone propionate 50 2 spray intranasal DAILY 02/03/21 01/22/22 Unknown History mcg/actuation nasal spray,suspension oxcarbazepine 150 mg tablet 150 mg PO BID 02/03/21 01/22/22 Unknown History tizanidine 2 mg tablet 2 mg PO Q8H PRN muscle spasm 02/03/21 01/22/22 Unknown History amlodipine 5 mg-benazepril 10 mg 1 cap PO DAILY 09/25/21 01/22/22 Unknown History capsule zolpidem 5 mg tablet 5 mg PO BEDTIME PRN Insomnia 09/25/21 01/22/22 Unknown History clonazepam 0.5 mg tablet 0.5 mg PO QID 12/28/21 01/22/22 Unknown History quetiapine 25 mg tablet 25 mg PO DAILY 12/28/21 01/22/22 Unknown History amlodipine 5 mg tablet 5 mg PO DAILY 01/25/22 Unknown History buspirone 10 mg tablet 10 mg PO BID 01/25/22 Unknown History buspirone 7.5 mg tablet 7.5 mg PO DAILY PRN 01/25/22 Unknown History fluoxetine 20 mg capsule 20 mg PO DAILY 01/25/22 Unknown History oxcarbazepine 300 mg tablet 450 mg PO BID 01/25/22 Unknown History scopolamine base 1 mg over 3 days 1 patch transdermal Q3D 01/25/22 Unknown History transdermal patch Exam Exam Date and Time: April 05, 2022 1042 Height,Weight and Vital Signs: Height 5 ft 5 in Weight 90.718 kg Pertinent Lab Results Pertinent Lab Results: Laboratory Tests 01/25/22 01/25/22 17:20 17:20 WBC 10.9 H Hgb 12.4 Hct 36.5 L Plt Count 217 Sodium 141 Potassium 3.5 Chloride 105 Carbon Dioxide 22 BUN 8 L Creatinine 0.80 Narrative Narrative: EKG 01/2022 (in ED for cyclic vomiting) Vent. Rate : 073 BPM ? ? Atrial Rate : 073 BPM ?? P-R Int : 172 ms? QRS Dur : 074 ms ? ? QT Int : 418 ms ? ? ? P-R-T Axes : 014 007 008 degrees ?? QTc Int : 460 ms ? Normal sinus rhythm Nonspecific T wave abnormality Prolonged QT Abnormal ECG No previous ECGs available Assessment and Plan Assessment Anesthesia Assessment: Chart Reviewed Final Anesthetic Review Family History of Problems with Anesthesia: No History of Problems with Anesthesia: No Documented by User: Rahat Plascencia MD 04/06/22 17:51 HPI - Anesthesia Eval Consult details Narrative: 46yo F for Upper Endoscopy and Colonoscopy s/p cysto 11/2021 with GA-LMA 4 Chronic prn opioids *Multiple Med Allergies* copd PMFSH Past Medical History Medical History Anxiety Arthritis Asthma Burn injury Elevated cholesterol HTN (hypertension) Hypersomnia IBS (irritable bowel syndrome) Low back pain Mood disorder Numbness OAB (overactive bladder) Sleep apnea SOB (shortness of breath) Functional capacity: uses cane/walker Family History Family History Father Hx of colon cancer, stage IV Mother Family history of high blood pressure Surgical History Surgical History H/O gastric bypass History of History of colonoscopy History of cystoscopy Hx of endoscopy Hx of hernia repair Hx of hysterectomy Hx of laparoscopic gastric banding Social History Social History Alcohol intake: never Patient Tobacco Use Status: Never used Tobacco Use of substances other than those prescribed or required for medical reasons: Yes Substance Use Type: Marijuana Substance Use Frequency: Weekly Advance Directives: No Advance Directives Information Provided: Yes Meds Allergies Allergy/AdvReac Type Severity Reaction Status Date / Time sertraline [From ZOLOFT] Allergy Intermediate prolonged Verified 03/29/22 14:10 QT interval Sulfa (Sulfonamide Allergy Intermediate RASH Verified 03/29/22 14:10 Antibiotics) [SULFA (SULFONAMIDE ANTIBIOTICS)] morphine [MORPHINE] Allergy Mild Rash Verified 03/29/22 14:10 haloperidol [From Haldol] Allergy Unknown unknown Verified 03/29/22 14:10 NSAIDS (Non-Steroidal AdvReac Intermediate STOMACH Verified 03/29/22 14:10 Anti-Inflamma UPSET [NSAIDS (NON-STEROIDAL ANTI-INFLAMMA] fentanyl patch Allergy Severe Unresponsiv Uncoded 03/29/22 14:10 e Home Medications Medication Instructions Recorded Confirmed Last Taken Type albuterol sulfate 2.5 mg/3 mL 1 vial inhalation Q6H 10/07/20 01/22/22 Unknown History (0.083 %) solution for nebulization fluticasone propionate 220 2 puff PO BID 10/07/20 01/22/22 Unknown History mcg/actuation HFA aerosol inhaler (Flovent HFA) montelukast 10 mg tablet 1 tab PO DAILY 10/07/20 01/22/22 Unknown History oxycodone 15 mg tablet 1 tab PO Q4H PRN pain 10/07/20 01/22/22 10/13/20 06:30 History quetiapine 200 mg tablet 1 tab PO BEDTIME PRN insomnia 10/07/20 01/22/22 Unknown History bupropion HCl 300 mg 24 hr tablet, 300 mg PO QAM 02/03/21 01/22/22 Unknown History extended release fluticasone propionate 50 2 spray intranasal DAILY 02/03/21 01/22/22 Unknown History mcg/actuation nasal spray,suspension oxcarbazepine 150 mg tablet 150 mg PO BID 02/03/21 01/22/22 Unknown History tizanidine 2 mg tablet 2 mg PO Q8H PRN muscle spasm 02/03/21 01/22/22 Unknown History amlodipine 5 mg-benazepril 10 mg 1 cap PO DAILY 09/25/21 01/22/22 Unknown History capsule zolpidem 5 mg tablet 5 mg PO BEDTIME PRN Insomnia 09/25/21 01/22/22 Unknown History clonazepam 0.5 mg tablet 0.5 mg PO QID 12/28/21 01/22/22 Unknown History quetiapine 25 mg tablet 25 mg PO DAILY 12/28/21 01/22/22 Unknown History amlodipine 5 mg tablet 5 mg PO DAILY 01/25/22 Unknown History buspirone 10 mg tablet 10 mg PO BID 01/25/22 Unknown History buspirone 7.5 mg tablet 7.5 mg PO DAILY PRN 01/25/22 Unknown History fluoxetine 20 mg capsule 20 mg PO DAILY 01/25/22 Unknown History oxcarbazepine 300 mg tablet 450 mg PO BID 01/25/22 Unknown History scopolamine base 1 mg over 3 days 1 patch transdermal Q3D 01/25/22 Unknown History transdermal patch Exam Airway Mallampati Class: III TM Dist: >3cm Neck ROM: Full Loose/Missing/Broken Teeth: Yes Heart: S1,S2 Lungs: b/l breath sounds Assessment and Plan Assessment Anesthesia Assessment: Anesthesia Plan Discussed Final Anesthetic Review NPO: Yes ASA Class: III Final Preanesthetic Review: Meds/Allgs Chart Reviewed, Consent Obtained/Reviewed and Anes Risks/Benef Reviewed Patient Risk: Intermediate Procedure Risk: Intermediate Anesthetic Plan Anesthetic Plan: MAC: Disposition: Standard PACU
[2022-04-06 11:56] VITALS: BMI 31.6
[2022-04-06 12:14] VITALS: BP 136/94; PULSE 88; RESP 16; TEMP 36.8; O2SAT 97
--- NOTE | 2022-04-06 12:29 | MHC.SHP ---
Pre-Procedural Eval Section A Date of Service: 04/06/22 The patient is an INPATIENT: No The History & Physical has been completed within 30 days and I have reviewed it.: No Section B Chief Complaint: Epigastric pain,Enterocolitis due to Clostridium d Details of Present Illness: Abdominal pain, diarrhea and weight loss Relevant Family History (Specify if Yes): Yes Relevant Social History: None Present Medications: see Short Stay Collaborative assessment Medical History: Significant History (Arthritis Asthma Burn injury Elevated cholesterol HTN (hypertension) Hypersomnia IBS (irritable bowel syndrome) Low back pain Mood disorder Numbness OAB (overactive bladder) Sleep apnea) History of Previous Operations: Relevant previous surgery/procedure and date(s) (H/O gastric bypass History of History of colonoscopy History of cystoscopy Hx of endoscopy Hx of hernia repair Hx of hysterectomy Hx of laparoscopic gastric banding) Allergies: Allergies Allergy/AdvReac Type Severity Reaction Status Date / Time sertraline [From ZOLOFT] Allergy Intermediate prolonged Verified 03/29/22 14:10 QT interval Sulfa (Sulfonamide Allergy Intermediate RASH Verified 03/29/22 14:10 Antibiotics) [SULFA (SULFONAMIDE ANTIBIOTICS)] morphine [MORPHINE] Allergy Mild Rash Verified 03/29/22 14:10 haloperidol [From Haldol] Allergy Unknown unknown Verified 03/29/22 14:10 NSAIDS (Non-Steroidal AdvReac Intermediate STOMACH Verified 03/29/22 14:10 Anti-Inflamma UPSET [NSAIDS (NON-STEROIDAL ANTI-INFLAMMA] fentanyl patch Allergy Severe Unresponsiv Uncoded 03/29/22 14:10 e Review of Systems Sugical H&P ROS: Negative: Constitution, Cardiovascular and Respiratory and Yes, Specify: Gastrointestinal (abdominal pain and wt loss) Exam Surgical H&P Exam: Normal: Heart, Normal: Lungs, Normal: Extremities and Normal: Abdomen Plan Diagnosis/Plan: Unchanged I have reviewed the history and physical and performed a pertinent physical examination on my patient. No changes have occurred unless specified. Time Spent With Patient Time: Total time managing care of this patient today ____ minutes.
--- NOTE | 2022-04-06 13:33 | PM.OP ---
Brief Operative Note Date of Service: 04/06/22 Pre-op diagnosis: Abdominal pain, diarrhea, weight loss. Pt had emergency surgery in Jan, 2022 at [facility] with conversion from gastric sleeve to Owen en Y gastric bypass surgery Post-op diagnosis: other (Owen en Y gastric bypass anatomy, Gastritis, anastomotic ulcer, colon polyps, hemorrhoids) Procedure: FLEXIBLE TRANSORAL UPPER GASTROINTESTINAL ENDOSCOPY WITH BIOPSIES AND COLONOSCOPY TILL CECUM WITH BIOPSIES AND SNARE POLYPECTOMY Surgeon: Moisés Allan MD Anesthesia: MAC Was an Crack Off Person used for this Procedure?: Yes Crack Off Person: Selina Boucher Estimated blood loss (mL): 0 Pathology: other (D: jedunal biopsy E: biopsy anastomotic site F:gastric body to rule out H: pylori G :T.I. biopsy H: Biopsy right colon to rule out microscopic colitis I:left colon biopsy to ) Condition: stable Disposition: PACU
--- NOTE | 2022-04-06 13:34 | P.OP_ITS ---
Operative Note Operative Note Date of Service: 04/06/22 Narrative: Pre-op diagnosis: Abdominal pain, diarrhea, weight loss. Pt had emergency surgery in Jan, 2022 at [facility] with conversion from gastric sleeve to Owen en Y gastric bypass surgery Post-op diagnosis:?other (Owen en Y gastric bypass anatomy, Gastritis, anastomotic ulcer, colon polyps, hemorrhoids) Surgeon: Moisés Allan MD Anesthesia:?MAC FLEXIBLE TRANSORAL UPPER GASTROINTESTINAL ENDOSCOPY WITH BIOPSIES AND COLONOSCOPY TILL CECUM WITH BIOPSIES AND SNARE POLYPECTOMY UPPER ENDOSCOPY Consent: Indications for the procedure and potential complications of bleeding, perforation, reaction to medications and missed diagnosis were discussed with the patient and informed consent was obtained. Instrument: Olympus GIF H 190 mid size upper endoscope Monitoring: Vital signs and clinical assessment, continuous EKG monitoring, Pulse oximetry, Carbon Dioxide monitoring and blood pressure monitoring were done throughout the procedure. Procedure: The patient was placed in the left lateral decubitis position and pre-procedure medications were administered and a bite block was placed. The endoscope was inserted into the mouth and advanced under direct vision to the third part of duodenum. A careful inspection was made as the upper endoscope was withdrawn including a retroflexed examination of the proximal stomach; Findings and interventions are described below. Findings: Larynx: Normal Esophagus: GE junction at 35 cms. No esophagitis or Anand's. Stomach: Owen en Y gastric bypass anatomy. Gastro-jejunal anastomosis at 45 cms with 2 sola visible with focal area of friable mucosa and 2 cms long superficial ulceration extending into the jejunum - biopsies were obtain. Mild gastric erythema. Biopsies were obtained from the gastric pouch to check for H Pylori. Grade 2 flap valve on retroflexed examination of the cardia. Jejunum: Normal - random biopsies were obtained to check for celiac sprue. Intervention: Biopsies as noted above COLONOSCOPY PROCEDURE NOTE Consent: Indications for the procedure and potential complications of bleeding, perforation, reaction to medications and missed diagnosis were discussed with the patient and informed consent was obtained. Instrument: Olympus PCF H 190 L variable stiffness pediatric colonoscope Monitoring: Vital signs and clinical assessment, intermittent blood pressure monitoring, continuous EKG monitoring, Pulse oximetry and Carbon Dioxide monitoring were done throughout the procedure. Colon withdrawl time was 22 minutes. Procedure: The patient was placed in the left lateral decubitis position and pre-procedure medications were administered. After a digital rectal examination of the ano-rectum, the video colonoscope was inserted into the rectum and advanced through the colon to the cecum. The colonoscope was slowly withdrawn in a retrograde panoramic fashion and the colon mucosa was carefully examined including a retroflexed view of the rectum. Findings and interventions are described below. Procedure Difficulty: Colon was long and tortuous and there was some loop formation - no maneuvers were required Findings: Terminal Ileum: Distal 5 cm was examined and appeared normal - random biopsies were obtained Cecum: Normal Ascending Colon: Normal Transverse Colon: Normal Descending Colon: Normal Sigmoid Colon: Two 6 to 8 mm diminutive appearing polyps - 1 was removed with a cold snare and 1 was biopsied. Rectum: Normal Ano-rectum: Small internal hemorrhoids Colon preparation: Good Impression and Post Procedure Diagnosis: Endoscopy Findings: STOMACH: Owen en Y gastric bypass anatomy. Gastro-jejunal anastomosis at 45 cms with 2 sola visible with focal area of friable mucosa and 2 cms long superficial ulceration extending into the jejunum - biopsies were obtain. Mild gastric erythema. Biopsies were obtained from the gastric pouch to check for H Pylori. JEJUNUM: Normal - random biopsies were obtained to check for celiac sprue. Colonoscopy Findings: A few diminutive appearing polyps removed. Biopsies were obtained from TI, right and left colon Small hemorrhoids on retroflexed exam. Stool samples were obtained (prior to irrigation) and sent for C Diff, GI panel and lactoferrin Plan: Await pathology results Patient has an appointment on 05/03/22 in the [facility] with Dr Patino. Repeat Colonoscopy interval based on path results - in 5 years if polyps are ad enomatous and 10 years if polyps are hyperplastic. Above findings were reviewed with the patient and colon polyps handouts were given in the discharge area BIOPSIES SHOWED: A.? Jejunum, biopsy:? Small bowel mucosa with preserved villi and no specific change.? B.? Labeled anastomotic site , biopsy:? Small bowel and gastric mucosa with active erosive enteritis and gastritis; negative for H pylori and dysplasia.? C.? Gastric body, biopsy:? Gastric body mucosa with mild reactive changes, focal lamina propria hemorrhage, and minimal chronic inactive gastritis; negative for H pylori, intestinal metaplasia and dysplasia.? D.? Terminal ileum, biopsy:? Ileal mucosa with no specific change.? E.? Colon, right, biopsy:? Colonic mucosa with minor crypt distortion, otherwise no specific change; no evidence of microscopic colitis. F. ? Colon, left, biopsy:? Colonic mucosa with minor crypt distortion, otherwise no specific change; no evidence of microscopic colitis.? G.? Colon, sigmoid, polyp:? Hyperplastic polyp.
[2022-04-06 14:44] VITALS: BP 117/86; PULSE 116; RESP 16; TEMP 36.4; O2SAT 100
[2022-04-06 14:59] VITALS: BP 125/92; PULSE 105; RESP 18; TEMP 36.2; O2SAT 98
[2022-04-06 16:17] LABS: CDiff Gene PCR NEGATIVE (Negative)
[2022-04-07 07:12] LABS: Campylobacter Not Detected (Not Detect.); E. coli EAEC Not Detected (Not Detect.); E. coli EPEC Not Detected (Not Detect.); Plesiomonas shigelloides Not Detected (Not Detect.); Salmonella Not Detected (Not Detect.); Vibrio Not Detected (Not Detect.); Vibrio Cholerae Not Detected (Not Detect.); Yersinia enterocolitica Not Detected (Not Detect.)
[2022-04-07 07:13] LABS: Adenovirus F 40/41 Not Detected (Not Detect.); Astrovirus Not Detected (Not Detect.); Cryptosporidium Not Detected (Not Detect.); Cyclospora cayetanensis Not Detected (Not Detect.); E. coli ETEC Not Detected (Not Detect.); E. coli STEC Not Detected (Not Detect.); Entamoeba histolytica Not Detected (Not Detect.); Giardia lamblia Not Detected (Not Detect.); Norovirus GI/GII Not Detected (Not Detect.); Rotavirus A Not Detected (Not Detect.); Sapovirus Not Detected (Not Detect.); Shigella sp./EIEC Not Detected (Not Detect.)
[2022-04-10 17:28] LABS: Lactoferrin, Fecal, Quant. <6.25 mcg/mL (<7.25)
== END 2022-04-06 15:36 | disposition home or self-care (01) ==
PROVIDERS: PCP Nurse Practitioner Family; Visit Provider Internal Medicine Gastroenterology
PROC: (CPT 45385; principal; 2022-04-06 12:40)
DX: Z12.11 Encounter for screening for malignant neoplasm of colon (principal); K63.5 Polyp of colon; K64.8 Other hemorrhoids; K58.9 Irritable bowel syndrome, unspecified; A04.72 Enterocolitis due to Clostridium difficile, not specified as recurrent; Z98.84 Bariatric surgery status; Z98.0 Intestinal bypass and anastomosis status; G47.33 Obstructive sleep apnea (adult) (pediatric); R10.13 Epigastric pain; J45.909 Unspecified asthma, uncomplicated; I10 Essential (primary) hypertension; E78.00 Pure hypercholesterolemia, unspecified; G47.10 Hypersomnia, unspecified; F39 Unspecified mood [affective] disorder; N32.81 Overactive bladder; Z79.51 Long term (current) use of inhaled steroids; Z79.899 Other long term (current) drug therapy; Z88.2 Allergy status to sulfonamides; Z88.8 Allergy status to other drugs, medicaments and biological substances
CPT/HCPCS: 45385; 45380; 43239; 83631; 87493; 87507; 88305; 88342

== ENCOUNTER → 2022-04-21 10:50 | Outpatient (BNVA) | payer MEDICARE, MEDICAID, SELFPAY | PROVIDERS: PCP Nurse Practitioner Family; Visit Provider Urology | DX: N39.0 Urinary tract infection, site not specified (principal); N30.10 Interstitial cystitis (chronic) without hematuria; R35.1 Nocturia | CPT/HCPCS: Q3014 ==

== ENCOUNTER → 2022-08-04 14:04 | Outpatient (BNVA) | payer MEDICARE, MEDICAID, SELFPAY | PROVIDERS: PCP Nurse Practitioner Family; Visit Provider Urology | DX: N30.10 Interstitial cystitis (chronic) without hematuria (principal); R39.15 Urgency of urination; R35.0 Frequency of micturition; N32.81 Overactive bladder; R10.2 Pelvic and perineal pain; Z79.891 Long term (current) use of opiate analgesic; Z79.899 Other long term (current) drug therapy | CPT/HCPCS: Q3014 ==

== ENCOUNTER → 2022-08-16 14:36 | Outpatient (BNVA) | payer MEDICARE, MEDICAID, SELFPAY | PROVIDERS: PCP Nurse Practitioner Family; Visit Provider Internal Medicine Gastroenterology | DX: R11.2 Nausea with vomiting, unspecified (principal); R10.13 Epigastric pain; K59.00 Constipation, unspecified | CPT/HCPCS: Q3014 ==

== ENCOUNTER 2022-08-24 09:24 | Day surgery (SDC) | payer MEDICARE, MEDICAID, SELFPAY ==
[2022-08-24 09:26] VITALS: BMI 29.5
[2022-08-24 09:35] VITALS: BP 122/90; PULSE 78; RESP 20; TEMP 36.3; O2SAT 97
[2022-08-24] MEDS: Lactated Ringers 1,000 ML 50 ML IVCONT (09:55)
--- NOTE | 2022-08-24 10:33 | MHC.SHP ---
Pre-Procedural Eval Section A Date of Service: 08/24/22 Section B Chief Complaint: Nausea with vomiting,epigastric pain, Relevant Family History (Specify if Yes): No Relevant Social History: Other (specify) (thc) Present Medications: see Short Stay Collaborative assessment Medical History: Significant History (Anxiety Arthritis Asthma Burn injury Elevated cholesterol HTN (hypertension) Hypersomnia IBS (irritable bowel syndrome) Low back pain Mood disorder Numbness OAB (overactive bladder) Sleep apnea SOB (shortness of breath)) History of Previous Operations: Relevant previous surgery/procedure and date(s) (H/O gastric bypass History of History of colonoscopy History of cystoscopy Hx of endoscopy Hx of hernia repair Hx of hysterectomy Hx of knee surgery Hx of laparoscopic gastric banding) Allergies: Allergies Allergy/AdvReac Type Severity Reaction Status Date / Time sertraline [From ZOLOFT] Allergy Intermediate prolonged Verified 08/16/22 14:37 QT interval Sulfa (Sulfonamide Allergy Intermediate RASH Verified 08/16/22 14:37 Antibiotics) [SULFA (SULFONAMIDE ANTIBIOTICS)] morphine [MORPHINE] Allergy Mild Rash Verified 08/16/22 14:37 haloperidol [From Haldol] Allergy Unknown unknown Verified 08/16/22 14:37 NSAIDS (Non-Steroidal AdvReac Intermediate STOMACH Verified 08/16/22 14:37 Anti-Inflamma UPSET [NSAIDS (NON-STEROIDAL ANTI-INFLAMMA] fentanyl patch Allergy Severe Unresponsiv Uncoded 08/16/22 14:37 e Review of Systems Sugical H&P ROS: Negative: Constitution, Cardiovascular, Respiratory, Neurological, Psychiatric, Hem-Onc, Allergic/Immunologic, Gastrointestinal, Genitourinary, Musculoskeletal, Integumentary, Endocrine and Eyes/Ears/Nose/Throat Exam Surgical H&P Exam: Normal: HEENT, Normal: Heart, Normal: Lungs, Normal: Extremities, Normal: Abdomen, Normal: Skin and Normal: Neurological Plan Diagnosis/Plan: Unchanged I have reviewed the history and physical and performed a pertinent physical examination on my patient. No changes have occurred unless specified. Time Spent With Patient Time: Total time managing care of this patient today ____ minutes.
--- NOTE | 2022-08-24 10:34 | HO.ANESPROP2 ---
HPI - Anesthesia Eval Consult details Narrative: 46 F for EGD PMFSH Active Problems Active Problems: All Active Problems (Updated 04/21/22 @ 11:49 by Kenneth Rodriguez MD) Nausea & vomiting (Acute) Diarrhea associated with pseudomembranous colitis (Acute) Epigastric abdominal pain (Acute) Dysuria (Acute) Interstitial cystitis (Acute) Nocturia more than twice per night (Acute) Pelvic pain in female (Acute) Therapeutic opioid-induced constipation (OIC) (Acute) Constipation (Acute) Visceral abdominal pain (Acute) Knee pain (Acute) Right knee pain (Acute) Lumbar spondylosis (Acute) Chronic UTI (urinary tract infection) (Acute) Past Medical History Medical History Anxiety Arthritis Asthma Burn injury Elevated cholesterol HTN (hypertension) Hypersomnia IBS (irritable bowel syndrome) Low back pain Mood disorder Numbness OAB (overactive bladder) Sleep apnea SOB (shortness of breath) Family History Family History Father Hx of colon cancer, stage IV Mother Family history of high blood pressure Family history of problems with anesthesia: No Surgical History Surgical History (Updated 08/24/22 @ 09:43 by Madonna Tillman RN) H/O gastric bypass History of History of colonoscopy History of cystoscopy Hx of endoscopy Hx of gastric bypass Hx of hernia repair Hx of hysterectomy Hx of knee surgery Hx of laparoscopic gastric banding Hx of total knee replacement History of Problems with Anesthesia: No Social History Social History Alcohol intake: never Patient Tobacco Use Status: Never used Tobacco Substance Use Type: Marijuana Are you DNR?: No Advance Directives: No Advance Directives Information Provided: Yes Patient : No Meds Allergies Allergy/AdvReac Type Severity Reaction Status Date / Time sertraline [From ZOLOFT] Allergy Intermediate prolonged Verified 08/16/22 14:37 QT interval Sulfa (Sulfonamide Allergy Intermediate RASH Verified 08/16/22 14:37 Antibiotics) [SULFA (SULFONAMIDE ANTIBIOTICS)] morphine [MORPHINE] Allergy Mild Rash Verified 08/16/22 14:37 haloperidol [From Haldol] Allergy Unknown unknown Verified 08/16/22 14:37 NSAIDS (Non-Steroidal AdvReac Intermediate STOMACH Verified 08/16/22 14:37 Anti-Inflamma UPSET [NSAIDS (NON-STEROIDAL ANTI-INFLAMMA] fentanyl patch Allergy Severe Unresponsiv Uncoded 08/16/22 14:37 e Active Medications: Current Medications Lactated Ringer's (Lr) 1,000 mls @ 50 mls/hr IVCONT .Q20H SILVINA Last Admin: 08/24/22 09:55 Dose: 50 mls/hr Home Medications Medication Instructions Recorded Confirmed Last Taken Type albuterol sulfate 2.5 mg/3 mL 1 vial inhalation Q6H 10/07/20 08/04/22 Unknown History (0.083 %) solution for nebulization fluticasone propionate 220 2 puff PO BID 10/07/20 08/04/22 08/23/22 History mcg/actuation HFA aerosol inhaler (Flovent HFA) montelukast 10 mg tablet 1 tab PO DAILY 10/07/20 08/04/22 Unknown History oxycodone 15 mg tablet 1 tab PO Q4H PRN pain 10/07/20 08/04/22 08/23/22 History quetiapine 200 mg tablet 1 tab PO BEDTIME PRN insomnia 10/07/20 08/04/22 08/23/22 History bupropion HCl 300 mg 24 hr tablet, 300 mg PO QAM 02/03/21 08/04/22 08/23/22 History extended release fluticasone propionate 50 2 spray intranasal DAILY 02/03/21 08/04/22 Unknown History mcg/actuation nasal spray,suspension amlodipine 5 mg-benazepril 10 mg 1 cap PO DAILY 09/25/21 08/04/22 08/23/22 History capsule zolpidem 5 mg tablet 5 mg PO BEDTIME PRN Insomnia 09/25/21 08/04/22 08/23/22 History clonazepam 0.5 mg tablet 0.5 mg PO QID 12/28/21 08/04/22 08/24/22 History quetiapine 25 mg tablet 25 mg PO DAILY 12/28/21 08/04/22 08/23/22 History amlodipine 5 mg tablet 5 mg PO DAILY 01/25/22 08/04/22 08/24/22 History buspirone 10 mg tablet 10 mg PO BID 11/08/04/22 08/23/22 History buspirone 7.5 mg tablet 7.5 mg PO DAILY PRN 01/25/22 08/04/22 Unknown History fluoxetine 20 mg capsule 20 mg PO DAILY 01/25/22 08/04/22 08/23/22 History scopolamine base 1 mg over 3 days 1 patch transdermal Q3D 01/25/22 08/04/22 08/21/22 History transdermal patch albuterol sulfate 90 mcg/actuation 2 puff inhalation QID PRN wheezing 08/16/22 08/23/22 History aerosol inhaler (Ventolin HFA) omeprazole 20 mg capsule,delayed 20 mg PO DAILY 08/24/22 08/24/22 08/24/22 History release oxcarbazepine 300 mg tablet 300 mg PO BID 08/24/22 08/24/22 08/24/22 History (Trileptal) Exam Exam Date and Time: August 24, 2022 1034 Height,Weight and Vital Signs: Height 5 ft 5 in Weight 177 lb Last Vital Signs Temp 97.3 F 08/24/22 09:35 Pulse 78 08/24/22 09:35 Resp 20 08/24/22 09:35 BP 122/90 H 08/24/22 09:35 Pulse Ox 97 08/24/22 09:35 O2 Del Method Room Air 08/24/22 09:35 Airway Mallampati Class: II TM Dist: >3cm Neck ROM: Full Denture: Upper Loose/Missing/Broken Teeth: No Assessment and Plan Assessment Anesthesia Assessment: Anesthesia Plan Discussed and Chart Reviewed Final Anesthetic Review Family History of Problems with Anesthesia: No History of Problems with Anesthesia: No NPO: Yes ASA Class: III Final Preanesthetic Review: No Changes in Pt Med Stat, Meds/Allgs Chart Reviewed, Consent Obtained/Reviewed and Anes Risks/Benef Reviewed Patient Risk: Intermediate Procedure Risk: Low Anesthetic Plan Anesthetic Plan: MAC: Disposition: Standard PACU
--- NOTE | 2022-08-24 10:34 | W.PM.OPN ---
Operative Note Operative Note Date of Service: 08/24/22 Narrative: Procedure Description: EGD Indication: hx of anastomotic ulcer Anesthesia: MAC FLEXIBLE TRANSORAL UPPER GASTROINTESTINAL ENDOSCOPY UPPER ENDOSCOPY Consent: Indications for the procedure and potential complications of bleeding, perforation, reaction to medications and missed diagnosis were discussed with the patient and informed consent was obtained. Instrument: Olympus GIF H 190 J mid size upper endoscope Monitoring: Vital signs and clinical assessment, continuous EKG monitoring, Pulse oximetry, Carbon Dioxide monitoring and blood pressure monitoring were done throughout the procedure. Procedure: The patient was placed in the left lateral decubitis position and pre-procedure medications were administered and a bite block was placed. The endoscope was inserted into the mouth and advanced under direct vision to the third part of duodenum. A careful inspection was made as the upper endoscope was withdrawn including a retroflexed examination of the proximal stomach; Findings and interventions are described below. Hx of gastric bypass Findings: Larynx:normal Esophagus: GE junction at 37 cm, diaphragm hiatus at 37 cm, no varices or esophagitis. Stomach pouch: x 4 retained sola noted with mild superficial inflammation and erosions noted around 3 of these. These were removed with cold forceps and bx taken from the anastomotic site and the pouch. Overall appearances appeared improved as compared to before. Jejunum: Normal Intervention: Biopsies as noted above, removal of retained sola Impression/Findings: retained sola mild inflammation around anstomosis PLAN: cont with PPI
[2022-08-24 11:10] VITALS: BP 119/80; PULSE 87; RESP 20; TEMP 36.3; O2SAT 100
[2022-08-24 11:25] VITALS: BP 130/93; PULSE 86; RESP 16; O2SAT 100
[2022-08-24 11:40] VITALS: BP 128/93; PULSE 82; RESP 14; TEMP 37; O2SAT 100
== END 2022-08-24 11:59 | disposition home or self-care (01) ==
PROVIDERS: PCP Nurse Practitioner Family; Visit Provider Internal Medicine Gastroenterology
PROC: 0DJ08ZZ Inspection of Upper Intestinal Tract, Via Natural or Artificial Opening Endoscopic (ICD-10-PCS; CPT 43235; principal; 2022-08-24 11:00)
DX: R10.13 Epigastric pain (principal); R11.2 Nausea with vomiting, unspecified; Z18.10 Retained metal fragments, unspecified; K29.50 Unspecified chronic gastritis without bleeding; K28.9 Gastrojejunal ulcer, unspecified as acute or chronic, without hemorrhage or perforation; Z98.84 Bariatric surgery status; K44.9 Diaphragmatic hernia without obstruction or gangrene; K58.9 Irritable bowel syndrome, unspecified; I10 Essential (primary) hypertension; G47.33 Obstructive sleep apnea (adult) (pediatric); J45.909 Unspecified asthma, uncomplicated; Z79.51 Long term (current) use of inhaled steroids; Z79.899 Other long term (current) drug therapy; Z88.2 Allergy status to sulfonamides; Z88.8 Allergy status to other drugs, medicaments and biological substances
CPT/HCPCS: 43239; 15851; 88305; 88342

== ENCOUNTER 2022-10-04 10:07 | Day surgery (SDC) | payer MEDICARE, MEDICAID, SELFPAY ==
--- NOTE | 2022-10-01 10:27 | HO.ANESPROP2 ---
Documented by User: Cecilia Wolff NP 10/01/22 10:29 HPI - Anesthesia Eval Consult details Narrative: 46yo F for Cystoscopy Hydrodistention of Bladder Chronic prn opioids *Multiple Med Allergies* athsma, copd, tyson s/p hysterectomyh PMFSH Active Problems Active Problems: All Active Problems (Updated 04/21/22 @ 11:49 by Kenneth Rodriguez MD) Nausea & vomiting (Acute) Diarrhea associated with pseudomembranous colitis (Acute) Epigastric abdominal pain (Acute) Dysuria (Acute) Interstitial cystitis (Acute) Nocturia more than twice per night (Acute) Pelvic pain in female (Acute) Therapeutic opioid-induced constipation (OIC) (Acute) Constipation (Acute) Visceral abdominal pain (Acute) Knee pain (Acute) Right knee pain (Acute) Lumbar spondylosis (Acute) Chronic UTI (urinary tract infection) (Acute) Past Medical History Medical History Anxiety Arthritis Asthma Burn injury Elevated cholesterol HTN (hypertension) Hypersomnia IBS (irritable bowel syndrome) Low back pain Mood disorder Numbness OAB (overactive bladder) Sleep apnea SOB (shortness of breath) Family History Family History Father Hx of colon cancer, stage IV Mother Family history of high blood pressure Family history of problems with anesthesia: No Surgical History Surgical History H/O gastric bypass History of History of colonoscopy History of cystoscopy Hx of endoscopy Hx of gastric bypass Hx of hernia repair Hx of hysterectomy Hx of knee surgery Hx of laparoscopic gastric banding Hx of total knee replacement History of Problems with Anesthesia: No Social History Social History (Updated 10/04/22 @ 11:17 by Pamella Martinez MD) Alcohol intake: never Patient Tobacco Use Status: Never used Tobacco Substance Use Type: Marijuana Meds Allergies Allergy/AdvReac Type Severity Reaction Status Date / Time sertraline [From ZOLOFT] Allergy Intermediate prolonged Verified 08/16/22 14:37 QT interval Sulfa (Sulfonamide Allergy Intermediate RASH Verified 08/16/22 14:37 Antibiotics) [SULFA (SULFONAMIDE ANTIBIOTICS)] morphine [MORPHINE] Allergy Mild Rash Verified 08/16/22 14:37 haloperidol [From Haldol] Allergy Unknown unknown Verified 08/16/22 14:37 NSAIDS (Non-Steroidal AdvReac Intermediate STOMACH Verified 08/16/22 14:37 Anti-Inflamma UPSET [NSAIDS (NON-STEROIDAL ANTI-INFLAMMA] fentanyl patch Allergy Severe Unresponsiv Uncoded 08/16/22 14:37 e Home Medications Medication Instructions Recorded Confirmed Last Taken Type albuterol sulfate 2.5 mg/3 mL 1 vial inhalation Q6H 10/07/20 09/29/22 10/04/22 History (0.083 %) solution for nebulization fluticasone propionate 220 2 puff PO BID 10/07/20 09/29/22 08/23/22 History mcg/actuation HFA aerosol inhaler (Flovent HFA) montelukast 10 mg tablet 1 tab PO DAILY 10/07/20 09/29/22 Unknown History quetiapine 200 mg tablet 1 tab PO BEDTIME PRN insomnia 10/07/20 08/04/22 08/23/22 History bupropion HCl 300 mg 24 hr tablet, 300 mg PO QAM 02/03/21 09/29/22 08/23/22 History extended release fluticasone propionate 50 2 spray intranasal DAILY 02/03/21 09/29/22 Unknown History mcg/actuation nasal spray,suspension amlodipine 5 mg-benazepril 10 mg 1 cap PO DAILY 09/25/21 09/29/22 08/23/22 History capsule zolpidem 5 mg tablet 5 mg PO BEDTIME PRN Insomnia 09/25/21 09/29/22 08/23/22 History clonazepam 0.5 mg tablet 0.5 mg PO QID 12/28/21 09/29/22 10/04/22 History quetiapine 25 mg tablet 25 mg PO DAILY 12/28/21 09/29/22 08/23/22 History amlodipine 5 mg tablet 5 mg PO DAILY 01/25/22 09/29/22 08/24/22 History buspirone 10 mg tablet 10 mg PO BID 01/25/22 09/29/22 08/23/22 History buspirone 7.5 mg tablet 7.5 mg PO DAILY PRN Anxiety 01/25/22 09/29/22 Unknown History fluoxetine 20 mg capsule 20 mg PO DAILY 01/25/22 09/29/2223 History scopolamine base 1 mg over 3 days 1 patch transdermal Q3D 01/25/22 09/29/22 08/21/22 History transdermal patch oxcarbazepine 300 mg tablet 300 mg PO BID 08/24/22 08/24/22 08/24/22 History (Trileptal) colesevelam 625 mg tablet 1,250 mg PO BID 09/29/22 09/29/22 Unknown History lansoprazole 30 mg capsule,delayed 30 mg PO DAILY 09/29/22 09/29/22 Unknown History release oxycodone 15 mg tablet 15 mg PO Q4H PRN pain 09/29/22 Unknown History oxycodone 5 mg tablet 5 mg PO Q8H PRN pain 09/29/22 Unknown History Exam Exam Date and Time: October 01, 2022 1027 Pertinent Lab Results Pertinent Lab Results: Laboratory Tests 01/25/22 01/25/22 17:20 17:20 WBC 10.9 H Hgb 12.4 Hct 36.5 L Plt Count 217 Sodium 141 Potassium 3.5 Chloride 105 Carbon Dioxide 22 BUN 8 L Creatinine 0.80 Narrative Narrative: EKG 01/2022 (in ED for cyclic vomiting) Vent. Rate : 073 BPM ? ? Atrial Rate : 073 BPM ?? P-R Int : 172 ms? QRS Dur : 074 ms ? ? QT Int : 418 ms ? ? ? P-R-T Axes : 014 007 008 degrees ?? QTc Int : 460 ms ? Normal sinus rhythm Nonspecific T wave abnormality Prolonged QT Abnormal ECG No previous ECGs available Assessment and Plan Assessment Anesthesia Assessment: Chart Reviewed Final Anesthetic Review Family History of Problems with Anesthesia: No History of Problems with Anesthesia: No Documented by User: Pamella Martinez MD 10/04/22 11:19 HPI - Anesthesia Eval Consult details Narrative: 46yo F for Cystoscopy Hydrodistention of Bladder Chronic prn opioids *Multiple Med Allergies* athsma, copd, tyson s/p hysterectomy PMFSH Active Problems Active Problems: All Active Problems (Updated 10/04/22 @ 10:35 by Pamella Martinez MD) Nausea & vomiting (Acute) Diarrhea associated with pseudomembranous colitis (Acute) Epigastric abdominal pain (Acute) Dysuria (Acute) Interstitial cystitis (Acute) Nocturia more than twice per night (Acute) Pelvic pain in female (Acute) Therapeutic opioid-induced constipation (OIC) (Acute) Constipation (Acute) Visceral abdominal pain (Acute) Knee pain (Acute) Right knee pain (Acute) Lumbar spondylosis (Acute) Chronic UTI (urinary tract infection) (Acute) Past Medical History Medical History Anxiety Arthritis Asthma Burn injury Elevated cholesterol HTN (hypertension) Hypersomnia IBS (irritable bowel syndrome) Low back pain Mood disorder Numbness OAB (overactive bladder) Sleep apnea SOB (shortness of breath) Family History Family History Father Hx of colon cancer, stage IV Mother Family history of high blood pressure Surgical History Surgical History H/O gastric bypass History of History of colonoscopy History of cystoscopy Hx of endoscopy Hx of gastric bypass Hx of hernia repair Hx of hysterectomy Hx of knee surgery Hx of laparoscopic gastric banding Hx of total knee replacement Social History Social History (Updated 10/04/22 @ 11:17 by Pamella Martinez MD) Alcohol intake: never Patient Tobacco Use Status: Never used Tobacco Substance Use Type: Marijuana Meds Allergies Allergy/AdvReac Type Severity Reaction Status Date / Time sertraline [From ZOLOFT] Allergy Intermediate prolonged Verified 08/16/22 14:37 QT interval Sulfa (Sulfonamide Allergy Intermediate RASH Verified 08/16/22 14:37 Antibiotics) [SULFA (SULFONAMIDE ANTIBIOTICS)] morphine [MORPHINE] Allergy Mild Rash Verified 08/16/22 14:37 haloperidol [From Haldol] Allergy Unknown unknown Verified 08/16/22 14:37 NSAIDS (Non-Steroidal AdvReac Intermediate STOMACH Verified 08/16/22 14:37 Anti-Inflamma UPSET [NSAIDS (NON-STEROIDAL ANTI-INFLAMMA] fentanyl patch Allergy Severe Unresponsiv Uncoded 08/16/22 14:37 e Home Medications Medication Instructions Recorded Confirmed Last Taken Type albuterol sulfate 2.5 mg/3 mL 1 vial inhalation Q6H 10/07/20 09/29/22 10/04/22 History (0.083 %) solution for nebulization fluticasone propionate 220 2 puff PO BID 10/07/20 09/29/22 08/23/22 History mcg/actuation HFA aerosol inhaler (Flovent HFA) montelukast 10 mg tablet 1 tab PO DAILY 10/07/20 09/29/22 Unknown History quetiapine 200 mg tablet 1 tab PO BEDTIME PRN insomnia 10/07/20 08/04/22 08/23/22 History bupropion HCl 300 mg 24 hr tablet, 300 mg PO QAM 02/03/21 09/29/22 08/23/22 History extended release fluticasone propionate 50 2 spray intranasal DAILY 02/03/21 09/29/22 Unknown History mcg/actuation nasal spray,suspension amlodipine 5 mg-benazepril 10 mg 1 cap PO DAILY 09/25/21 09/29/22 08/23/22 History capsule zolpidem 5 mg tablet 5 mg PO BEDTIME PRN Insomnia 09/25/21 09/29/22 08/23/22 History clonazepam 0.5 mg tablet 0.5 mg PO QID 12/28/21 09/29/22 10/04/22 History quetiapine 25 mg tablet 25 mg PO DAILY 12/28/21 09/29/22 08/23/22 History amlodipine 5 mg tablet 5 mg PO DAILY 01/25/22 09/29/22 08/24/22 History buspirone 10 mg tablet 10 mg PO BID 01/25/22 09/29/22 08/23/22 History buspirone 7.5 mg tablet 7.5 mg PO DAILY PRN Anxiety 01/25/22 09/29/22 Unknown History fluoxetine 20 mg capsule 20 mg PO DAILY 01/25/22 09/29/22 08/23/22 History scopolamine base 1 mg over 3 days 1 patch transdermal Q3D 01/25/22 09/29/22 08/21/22 History transdermal patch oxcarbazepine 300 mg tablet 300 mg PO BID 08/24/22 08/24/22 08/24/22 History (Trileptal) colesevelam 625 mg tablet 1,250 mg PO BID 09/29/22 09/29/22 Unknown History lansoprazole 30 mg capsule,delayed 30 mg PO DAILY 09/29/22 09/29/22 Unknown History release oxycodone 15 mg tablet 15 mg PO Q4H PRN pain 09/29/22 Unknown History oxycodone 5 mg tablet 5 mg PO Q8H PRN pain 09/29/22 Unknown History Exam Height,Weight and Vital Signs: Height 5 ft 5.5 in Weight 73.482 kg Vital Signs Temp Pulse Resp BP Pulse Ox O2 Del Method 10/04/22 10:30 96.9 F 96 18 125/82 100 Room Air Airway Mallampati Class: II TM Dist: >3cm Neck ROM: Full Partial: Upper and Lower Loose/Missing/Broken Teeth: Yes (Denies broken or loose teeth) Heart: RRR Lungs: CTAB Assessment and Plan Assessment Anesthesia Assessment: Anesthesia Plan Discussed Final Anesthetic Review NPO: Yes ASA Class: III Final Preanesthetic Review: No Changes in Pt Med Stat, Meds/Allgs Chart Reviewed, Consent Obtained/Reviewed and Anes Risks/Benef Reviewed Patient Risk: Intermediate Procedure Risk: Low Assessment/Block/Sedation in SS: Assess/Block/Sedation-SS Anesthetic Plan Anesthetic Plan: GA Disposition: Standard PACU
[2022-10-04] VITALS (7 sets, daily range): BP systolic 125–175; BP diastolic 82–114; PULSE 67–96; RESP 16–18; TEMP 36.1–36.5; O2SAT 98–100; BMI 26.5
[2022-10-04] MEDS: Lactated Ringers 1,000 ML 100 ML IVCONT (10:53)
--- NOTE | 2022-10-04 10:59 | MHC.SHP ---
Pre-Procedural Eval Section A Date of Service: 10/04/22 The patient is an INPATIENT: No Changes since office visit: No Cold of Flu in the past 2 weeks, No New Medical Problems, No Changes in Medication and No Patient answered all questions The History & Physical has been completed within 30 days and I have reviewed it.: No Section B Chief Complaint: Interstitial cystitis (chronic) without hematuria Relevant Family History (Specify if Yes): No Relevant Social History: None Present Medications: see Short Stay Collaborative assessment Medical History: No relevant PMH History of Previous Operations: Relevant previous surgery/procedure and date(s) Allergies: Allergies Allergy/AdvReac Type Severity Reaction Status Date / Time sertraline [From ZOLOFT] Allergy Intermediate prolonged Verified 08/16/22 14:37 QT interval Sulfa (Sulfonamide Allergy Intermediate RASH Verified 08/16/22 14:37 Antibiotics) [SULFA (SULFONAMIDE ANTIBIOTICS)] morphine [MORPHINE] Allergy Mild Rash Verified 08/16/22 14:37 haloperidol [From Haldol] Allergy Unknown unknown Verified 08/16/22 14:37 NSAIDS (Non-Steroidal AdvReac Intermediate STOMACH Verified 08/16/22 14:37 Anti-Inflamma UPSET [NSAIDS (NON-STEROIDAL ANTI-INFLAMMA] fentanyl patch Allergy Severe Unresponsiv Uncoded 08/16/22 14:37 e Review of Systems Sugical H&P ROS: Negative: Constitution, Cardiovascular, Respiratory, Neurological, Psychiatric, Hem-Onc, Allergic/Immunologic, Gastrointestinal, Genitourinary, Musculoskeletal, Integumentary, Endocrine and Eyes/Ears/Nose/Throat Exam Surgical H&P Exam: Normal: HEENT, Normal: Heart, Normal: Lungs, Normal: Extremities, Normal: Abdomen, Normal: Skin and Normal: Neurological Plan Diagnosis/Plan: Unchanged (hydrodistiention) I have reviewed the history and physical and performed a pertinent physical examination on my patient. No changes have occurred unless specified. Time Spent With Patient Time: Total time managing care of this patient today ____ minutes.
--- NOTE | 2022-10-04 11:41 | P.OP_ITS ---
Operative Note Operative Note Date of Service: 10/04/22 Narrative: PreOperative Diagnosis:? Interstitial cystitis with pelvic pain Post Operative Diagnosis:? Interstitial cystitis with pelvic pain Procedure:? Hydrodistention Surgeon: Dr Kenneth Rodriguez Anesthesia:? General Indications for procedure: Is a 45-year-old female with known interstitial cystitis.? Prior hydrodistention with success in 2019. Recurrent pelvic pain syndrome.? Requesting repeat hydrodistention.? Procedure: After informed consent was verified the patient was brought to the operating room and placed in a supine position.? Anesthesia was administered per protocol.? The patient was placed in a modified dorsal lithotomy position and prepped and draped in sterile fashion.? Safety pause time-out was observed.? Antibiotics being given. A 22 Turkish cystoscope was used to empty the bladder.? A mixture of bupivacaine lidocaine gel 20 cc was instilled into the bladder and allowed to sit for 2-3 minutes. Hydrodistention of the bladder was performed.? The bladder was filled and allowed to sit for 2 minutes.? Filling was from a height of 1 m. On the 1st fill there was 850 cc within the bladder.? Cystoscopy revealed glomerulations consistent with interstitial cystitis. Second filling of the bladder was performed in similar fashion.? Volume was approximately 1000 cc.? Terminal hematuria noted. The the bladder was emptied.? The patient tolerated procedure well was extubated in operating room transferred in stable condition to the recovery area.? Appropriate postprocedure pain medication was provided
[2022-10-04] MEDS: oxyCODONE HCl Immed Release 5 MG TABLET 10 MG PO (12:15)
[2022-10-04] MEDS: Phenazopyridine HCL 100 MG TABLET PO (12:15)
[2022-10-04] MEDS: Acetaminophen 325 MG TABLET 650 MG PO (12:20)
== END 2022-10-04 13:00 | disposition home or self-care (01) ==
PROVIDERS: PCP Nurse Practitioner Family; Visit Provider Urology
PROC: 0T7B7ZZ Dilation of Bladder, Via Natural or Artificial Opening (ICD-10-PCS; CPT 52260; principal; 2022-10-04 12:10)
DX: N30.10 Interstitial cystitis (chronic) without hematuria (principal); I10 Essential (primary) hypertension; J45.909 Unspecified asthma, uncomplicated; Z79.899 Other long term (current) drug therapy; Z88.2 Allergy status to sulfonamides; Z88.5 Allergy status to narcotic agent
CPT/HCPCS: 52260; J1100; J1956; J2250; J2405; J3010

== ENCOUNTER → 2022-10-04 10:07 | Outpatient (BNV) | payer MEDICARE, MEDICAID, SELFPAY | PROVIDERS: PCP Nurse Practitioner Family; Visit Provider Urology | DX: N30.10 Interstitial cystitis (chronic) without hematuria (principal); R10.2 Pelvic and perineal pain | CPT/HCPCS: 52260 ==

== ENCOUNTER 2022-11-26 14:09 | Outpatient (AMB) | payer MEDICARE, MEDICAID, SELFPAY ==
--- NOTE | 2022-11-26 14:12 | A.OFFVIS_ITS ---
Intake Intake Visit Reasons: 6 week (hydro) post op Intake Note: Pt stated she needs refills [employer] Leaser Required: No Allergies sertraline [From ZOLOFT] Allergy (Intermediate, Verified 11/26/22 14:26) prolonged QT interval Sulfa (Sulfonamide Antibiotics) [SULFA (SULFONAMIDE ANTIBIOTICS)] Allergy (Intermediate, Verified 11/26/22 14:26) RASH morphine [MORPHINE] Allergy (Mild, Verified 11/26/22 14:26) Rash haloperidol [From Haldol] Allergy (Unknown, Verified 11/26/22 14:26) unknown NSAIDS (Non-Steroidal Anti-Inflamma [NSAIDS (NON-STEROIDAL ANTI-INFLAMMA] Adverse Reaction (Intermediate, Verified 11/26/22 14:26) STOMACH UPSET fentanyl patch Allergy (Severe, Uncoded 11/26/22 14:26) Unresponsive HPI HPI Comments History of Present Illness Details Eboni is a pleasant female. She is a patient of Dr. Nassar. She is seen for the following urologic conditions - interstitial cystitis - recurring UTI Telemedicine Evaluation [address] [facility] Jeramy Video attempted Improvement post hydrodistention Continue with interstitial cystitis medications which include combination amitriptyline and gabapentin for nocturia relief, Toviaz during the day Reiterated dietary triggers 6 month follow-up Interstitial cystitis Have used combination amitriptyline, gabapentin for frequent nocturia Post recent hydrodistention - hydrodistention performed in February 2019. persistent urgency frequency. States nocturia times 5-6. Trouble holding urine and accidents. Already on strict diet secondary to gastric sleeve surgery - prior medications include Elmiron, oxy butynin, tolterodine - current medications Toviaz [facility] Medical History Anxiety Arthritis Asthma Burn injury Elevated cholesterol HTN (hypertension) Hypersomnia IBS (irritable bowel syndrome) Low back pain Mood disorder Numbness OAB (overactive bladder) Sleep apnea SOB (shortness of breath) Surgical History H/O gastric bypass History of History of colonoscopy History of cystoscopy Hx of endoscopy Hx of gastric bypass Hx of hernia repair Hx of hysterectomy Hx of knee surgery Hx of laparoscopic gastric banding Hx of total knee replacement Family History Father Hx of colon cancer, stage IV Mother Family history of high blood pressure Social History (Updated 10/04/22 @ 11:17 by Pamella Martinez MD) Alcohol intake: never Patient Tobacco Use Status: Never used Tobacco Substance Use Type: Marijuana Review of Systems Const All systems reviewed & are unremarkable except as noted in HPI and below Reports no additional complaints Resp Reports no additional complaints GI Reports no additional complaints Reports as per HPI Musc Reports no additional complaints Physical Exam Telemedicine evaluation Appropriate responses Regular breathing rate and rhythm HEENT Head: Yes normal to inspection Ears: hearing grossly normal bilaterally Eyes General: appearance normal, both eyes and all related structures Neck Neck: Yes normal visual inspection Chest Chest palpation & inspection: normal inspection of the chest Resp Effort & Inspection: normal respiratory effort and able to speak in complete sentences Assessment & Plan Assessment & Plan (1) Pelvic pain in female: Comment: 12/31 right pelvic side wall, bilateral anterior Code(s): R10.2 - Pelvic and perineal pain (2) Interstitial cystitis: Code(s): N30.10 - Interstitial cystitis (chronic) without hematuria (3) Nocturia more than twice per night: Code(s): R35.1 - Nocturia Plan Six month follow-up nurse practitioner Medications: Refilled fesoterodine ER 4 mg PO DAILY 90 tabs 1RF 90 days amitriptyline 25 mg PO BEDTIME 90 tabs 1RF 90 days N30.10 - Interstitial cystitis (chronic) without hematuria gabapentin 300 mg PO BEDTIME 90 caps 1RF 90 days N30.10 - Interstitial cystitis (chronic) without hematuria Discontinued nitrofurantoin macrocrystal must administer with a meal/food Discontinued Reason: Doctor's Order 50 mg PO BEDTIME 90 caps 1RF 90 days N39.0 - Urinary tract infection, site not specified Patient Instructions: Imaging studies, laboratory and physical exam results were discussed and reviewed in detail. No major barriers to patient understanding were identified. An opportunity to ask questions regarding the treatment plan was provided. All questions were answered. The patient expressed understanding and agreement with the above treatment plan. The patient is aware they should contact our office by phone for worsening of their current condition or the appearance of new urologic symptoms. Compliance is encouraged with any medications and followup testing that is ordered. It is a privilege to participate in the urologic care of your patient. If you have any questions or concerns regarding treatment for the above conditions, or other urologic issues, please do not hesitate to contact me. The office telephone contact is [phone]. This note is constructed using voice recognition software. While every effort has been made to ensure accuracy real estate assessor errors may have been included. Yours sincerely, Dr Kenneth Rodriguez MD, DEE [facility] - Urology Providers of Expert, Compassionate Care for the Genitourinary System Telehealth Telehealth Location of provider rendering services: practice address Location of patient: address on file Patient Identification confirmed using: Name, : Yes Telehealth method: video Patient verbally consented to treatment: Yes Patient verbally consented to billing insurance company: Yes Patient informed of any privacy concerns related to visit: Yes Coding Level of Care Code Tele Est Pt Level 3 (20908) Diagnoses Pelvic pain in female R10.2 Interstitial cystitis N30.10 Nocturia more than twice per night R35.1
== END 2022-11-26 14:52 | disposition home or self-care (01) ==
LOC: HO.HUSH 14:09
PROVIDERS: PCP Nurse Practitioner Family; Visit Provider Urology
DX: R10.2 Pelvic and perineal pain (principal); N30.10 Interstitial cystitis (chronic) without hematuria; R35.1 Nocturia
CPT/HCPCS: 99213

== ENCOUNTER → 2022-11-26 14:09 | Outpatient (BNVA) | payer MEDICARE, MEDICAID, SELFPAY | PROVIDERS: PCP Nurse Practitioner Family; Visit Provider Urology ==

== ENCOUNTER 2022-12-06 10:31 | Outpatient (REF) | payer MEDICARE, MEDICAID, SELFPAY ==
[2022-12-06 11:36] LABS: MANUAL DIFF FLAG NO
[2022-12-06 12:31] LABS: Basophils Percent Auto 0.5 % (0-2); Eosinophils Percent Auto 0.5 % (0-4); Hematocrit 36.4 % (37.0-47.0); Hemoglobin 12.2 g/dl (12.0-16.0); Imm Gran Abs Auto 0.01 X10*3/uL (0.00-0.03); Imm Gran Pct Auto 0.2 % (0.0-0.4); Lymphocytes Absolute Auto 1.5 X10*3/uL (1.2-4.9); Lymphocytes Percent Auto 34.2 % (20-40); Mean Corpuscular HGB Conc 33.5 g/dl (31.0-35.0); Mean Corpuscular Hemoglobin 28.3 pg (27.0-33.0); Mean Corpuscular Volume 84.5 fL (80.0-98.0); Monocytes Absolute Auto 0.3 X10*3/uL (0.1-1.2); Monocytes Percent Auto 6.6 % (2-11); Neutrophils Absolute Auto 2.5 x10*3/uL (2.0-8.3); Platelet Count 242 X10*3/uL (160-400); Red Blood Count 4.31 X10*6/uL (4.20-5.50); Red Cell Distribution Width 15.1 % (11.0-16.0); White Blood Count 4.3 X10*3/uL (4.8-10.8)
[2022-12-06 13:12] LABS: Alanine Aminotransferase 8 U/L (0-31); Albumin Level 4.7 g/dL (3.5-5.0); Alkaline Phosphatase 86 U/L (39-117); Anion Gap 18 (12-20); Aspartate Amino Transferase 16 U/L (5-31); Bilirubin Total 0.4 mg/dL (0.0-1.0); Blood Urea Nitrogen 6 mg/dL (9-16); Calcium 10.1 mg/dL (8.4-10.2); Carbon Dioxide 25 mmol/L (22-29); Chloride 104 mmol/L (96-108); Estimated Glomerular Filt Rate > 60; Glucose Random 105 mg/dL (60-115); Potassium 3.8 mmol/L (3.3-5.1); Sodium 143 mmol/L (135-145); Total Protein 8.8 g/dL (6.5-8.0)
[2022-12-06 13:35] LABS: Ferritin 32 ng/mL (10-250)
[2022-12-06 13:56] LABS: Folate 8.6 ng/mL (> or = 4.0); Vitamin B12 464 pg/mL (200-900)
[2022-12-09 22:59] LABS: Oxcarbazepine 11.7 mcg/mL (8.0-35.0)
== END 2022-12-06 10:32 | disposition home or self-care (01) ==
LOC: HO.LAB 10:31
PROVIDERS: PCP Nurse Practitioner Family; Visit Provider Internal Medicine Gastroenterology
DX: K75.81 Nonalcoholic steatohepatitis (NASH) (principal); K28.9 Gastrojejunal ulcer, unspecified as acute or chronic, without hemorrhage or perforation; E46 Unspecified protein-calorie malnutrition; R19.7 Diarrhea, unspecified; Z79.899 Other long term (current) drug therapy
CPT/HCPCS: 36415; 80053; 80339; 82607; 82728; 82746; 85025; 99212

== ENCOUNTER 2022-12-06 10:31 | Outpatient (AMB) | payer MEDICARE, MEDICAID, SELFPAY ==
--- NOTE | 2022-12-06 10:33 | A.OFFVIS_ITS ---
Intake Vital Signs 12/06/22 10:34 Height 5 ft 5 in Weight 158 lb 11.725 oz BMI 26.4 Blood Pressure Location Lt brachial Position Sitting Intake Visit Reasons: 3 month follow up Intake Note: Eboni presents in the office as a 3 month follow up. CC: She states that she has every day IBS symptoms. She has chronic gastritis as well. She does take the carafate as well but it does have an interaction with her acid reflux medications she states. Allergies sertraline [From ZOLOFT] Allergy (Intermediate, Verified 12/06/22 10:37) prolonged QT interval Sulfa (Sulfonamide Antibiotics) [SULFA (SULFONAMIDE ANTIBIOTICS)] Allergy (Intermediate, Verified 12/06/22 10:37) RASH morphine [MORPHINE] Allergy (Mild, Verified 12/06/22 10:37) Rash haloperidol [From Haldol] Allergy (Unknown, Verified 12/06/22 10:37) unknown NSAIDS (Non-Steroidal Anti-Inflamma [NSAIDS (NON-STEROIDAL ANTI-INFLAMMA] Adverse Reaction (Intermediate, Verified 12/06/22 10:37) STOMACH UPSET fentanyl patch Allergy (Severe, Uncoded 12/06/22 10:37) Unresponsive HPI 3 month follow up HPI Details RECAP: ? she has severe degen disease of spine and left knee, ? ongoing epigastric burning pain, she is on prevacid, also taking nexium and zantac at night ? vomiting and regurgitating food back up ? depression well controlled. sleep is poor, 4 hrs off and on ? she is on tramadol, having issues with constipation. once q4 days ? EGD 03/2018- gastritis ? also prior hx of kenalog trigger injection, hard to say if helped. ? she was given linaclotide to help with constipation ? GES---normal ? she was having ongoing issues with pain and was optimized on acid suppression with h2, PPI and carafate, was trying to get her movantik ? she represented 01/2019 to office with c/o worsening epigastric pain, nausea, and poor appetite with weight loss. using linaclotide helping her constipation, on fentanyl patch--goes every few days ? I offered her admission but she refused but she was dizzy so sent to ED, ? labs inc LFT, BMP, CBC were neg and CT was unremarkable without any acute pathology ? EGD then done 02/2019 with bx revealing chronic reflux damage and gastritis, looked like sandy but the stain was neg ? U/s 03/2019- liver normal, F0 on elastography, ?left kidney stone, ? Ba swallow 03/2019- patent GEJ, mild reflux ? pending urine 24 hr tests and metanephrines ? At f/u visit 05/2019--she was awaiting w/u for interstitial cystitis ? she was doing well with donantal and compazine ? capsule endoscopy was done and was neg was advised to try align, IBGARD, stress reduction She had cystoscopy with Dr Rodriguez for her IC she had surgery with removal of adhesions at [facility] 05/2021 and hiatal hernia repair she had ongoing problems and had EGD with gastrtiis, and bile reflux in stomach she is on trileptel for bipolar I ordered KUB with moderate stool burden Increased movantik to 25 mg but stopped it due to too much diarrhea she had kenalog injection to area of pain in abdomen, which she feels may have helped a little She had EGD/colon with Dr Allan 04/05 Marginal ulcer noted at [facility] colon was tortuous hyperplastic polyp removed with rando colo bx with crypt distortion REPT EGD: 08/24/22 Hx of gastric bypass Findings: Larynx:normal Esophagus: GE junction at 37 cm, diaphragm hiatus at 37 cm, no varices or esophagitis. Stomach pouch: x 4 retained sola noted with mild superficial inflammation and erosions noted around 3 of these. These were removed with cold forceps and bx taken from the anastomotic site and the pouch. Overall appearances appeared improved as compared to before. Jejunum: Normal Intervention: Biopsies as noted above, removal of retained sola Impression/Findings: retained sola mild inflammation around anstomosis PLAN: cont with PPI ?INTERIM: she is still recovering from knee surgery, ongoing swelling and using walking stick she has issues of urine retention she has been started on gabapentin and TCA< she is on oxycodone 6 times a day she has kept the weight off she has diarrhea almost every day-she has satiety she is seeign [facility] for hemorrhoids she is still taking carafate BID, still taking esomperazole with open capsules taking THC EXAM: GENERAL: The patient is well developed and nontoxic. VITAL SIGNS:see workflow HEENT: Nonicteric sclerae, PERRLA, EOMI. Oropharynx clear. Moist mucous membranes. Conjunctivae appear well perfused. No thyroid mass. CHEST: Chest wall is nontender. HEART: Regular rate and rhythm without murmurs. LUNGS: Clear to auscultation bilaterally. ABDOMEN: Soft, positive bowel sounds, nontender, no organomegaly.no flank tenderness SKIN: No rash, no excessive bruising, petechiae, or purpura. NEUROLOGIC: Cranial nerves II-XII intact without motor/sensory deficit. MUSC: swollen left knee Assessments ?1/ Diarrhea, maybe related to panc insuff and gastric bypass PLAN: 1/ trial of pancreatic enzymes 2/ cont to take lansoprazole, with open capsule and mix with apple sauce as she has altered anatomy affecting absorption along with famotidine, and carafate 3/ recheck c diff PFSH Medical History Burn injury Arthritis Low back pain Elevated cholesterol SOB (shortness of breath) Asthma Numbness Mood disorder IBS (irritable bowel syndrome) OAB (overactive bladder) HTN (hypertension) Sleep apnea Hypersomnia Anxiety Surgical History Hx of gastric bypass Hx of total knee replacement Hx of knee surgery Hx of hernia repair History of cystoscopy Hx of laparoscopic gastric banding Hx of hysterectomy History of H/O gastric bypass Hx of endoscopy History of colonoscopy Family History Father Hx of colon cancer, stage IV Mother Family history of high blood pressure Social History Alcohol intake: never Patient Tobacco Use Status: Never used Tobacco Substance Use Type: Marijuana Physical Exam Vital Signs: BMI result Body Mass Index 26.4 Assessment & Plan Assessment & Plan (1) Marginal ulcer: Code(s): K28.9 - Gastrojejunal ulcer, unspecified as acute or chronic, without hemorrhage or perforation (2) Malnutrition: Code(s): E46 - Unspecified protein-calorie malnutrition (3) Diarrhea: Code(s): R19.7 - Diarrhea, unspecified Orders: Orders Complete Blood Count Auto Diff Today E46 - Unspecified protein-calorie malnutrition, K28.9 - Gastrojejunal ulcer, unspecified as acute or chronic, without hemorrhage or perforation, R19.7 - Diarrhea, unspecified Vitamin B12 and Folate Today E46 - Unspecified protein-calorie malnutrition, K28.9 - Gastrojejunal ulcer, unspecified as acute or chronic, without hemorrhage or perforation, R19.7 - Diarrhea, unspecified Oxcarbazepine Today E46 - Unspecified protein-calorie malnutrition, K28.9 - Gastrojejunal ulcer, unspecified as acute or chronic, without hemorrhage or perforation, R19.7 - Diarrhea, unspecified Comprehensive Met. Panel Today E46 - Unspecified protein-calorie malnutrition, K28.9 - Gastrojejunal ulcer, unspecified as acute or chronic, without hemorrhage or perforation, K75.81 - Nonalcoholic steatohepatitis (CELIS), R19.7 - Diarrhea, unspecified Ferritin Today E46 - Unspecified protein-calorie malnutrition, K28.9 - Gastrojejunal ulcer, unspecified as acute or chronic, without hemorrhage or perforation, R19.7 - Diarrhea, unspecified CDiff Gene PCR Today E46 - Unspecified protein-calorie malnutrition, R19.7 - Diarrhea, unspecified Medications: New [id number] 12,000-38,000 -60,000 unit (Creon) administer with meals and/or snacks 2 caps PO TID 180 caps 2RF Refilled prochlorperazine 25 mg RI Q12H PRN 12 ea 3RF nausea and vomiting famotidine 40 mg PO BEDTIME 90 tabs 3RF 90 days Coding Level of Care Code Est Pt Level 3 (89856) Diagnoses Marginal ulcer K28.9 Malnutrition E46 Diarrhea R19.7
[2022-12-06 10:34] VITALS: BMI 26.4
== END 2022-12-06 11:09 | disposition home or self-care (01) ==
PROVIDERS: PCP Nurse Practitioner Family; Visit Provider Internal Medicine Gastroenterology
DX: K28.9 Gastrojejunal ulcer, unspecified as acute or chronic, without hemorrhage or perforation (principal); E46 Unspecified protein-calorie malnutrition; R19.7 Diarrhea, unspecified
CPT/HCPCS: 99213

== ENCOUNTER 2022-12-31 12:22 | Outpatient (REF) | payer OTHER, SELFPAY | END 2022-12-31 12:23 | disposition home or self-care (01) | LOC: HO.MDS 12:22 | PROVIDERS: PCP Nurse Practitioner Family; Visit Provider Internal Medicine Gastroenterology | DX: D50.8 Other iron deficiency anemias (principal) | CPT/HCPCS: 96365; J1756 ==

== ENCOUNTER 2023-01-25 11:45 | Outpatient (REF) | payer MEDICARE, MEDICAID, SELFPAY | END 2023-01-25 11:46 | disposition home or self-care (01) | LOC: HO.MDS 11:45 | PROVIDERS: Visit Provider Internal Medicine Gastroenterology | DX: D50.8 Other iron deficiency anemias (principal) | CPT/HCPCS: J1756 ==

== ENCOUNTER 2023-02-09 13:06 | Outpatient (REF) | payer MEDICARE, MEDICAID, SELFPAY | END 2023-02-09 13:07 | disposition home or self-care (01) | LOC: HO.MDS 13:06 | PROVIDERS: Visit Provider Internal Medicine Gastroenterology | DX: D50.8 Other iron deficiency anemias (principal) | CPT/HCPCS: 96374; J1756 ==

== ENCOUNTER 2023-02-15 10:59 | Day surgery (SDC) | payer MEDICARE, MEDICAID, SELFPAY ==
[2023-02-15 11:26] VITALS: BMI 27.3
[2023-02-15 11:37] VITALS: BP 125/89; PULSE 83; RESP 18; TEMP 36.6; O2SAT 97
[2023-02-15] MEDS: Lactated Ringers 1,000 ML 50 ML IVCONT (11:47)
--- NOTE | 2023-02-15 12:25 | P.HPSUR_ITS ---
Pre-Procedural Eval Section A Date of Service: 02/15/23 Section B Chief Complaint: Gastrojejunal ulcer, unspecified as acute or chron Details of Present Illness: worsening nausea and vomiting Relevant Family History (Specify if Yes): No Relevant Social History: Other (specify) (THC use) Present Medications: see Short Stay Collaborative assessment Medical History: Significant History (Burn injury Arthritis Low back pain Elevated cholesterol SOB (shortness of breath) Asthma Numbness Mood disorder IBS (irritable bowel syndrome) OAB (overactive bladder) HTN (hypertension) Sleep apnea Hypersomnia Anxiety) History of Previous Operations: Relevant previous surgery/procedure and date(s) (Hx of gastric bypass Hx of total knee replacement Hx of knee surgery Hx of hernia repair History of cystoscopy Hx of laparoscopic gastric banding Hx of hysterectomy History of H/O gastric bypass Hx of endoscopy History of colonoscopy) Allergies: Allergies Allergy/AdvReac Type Severity Reaction Status Date / Time sertraline [From ZOLOFT] Allergy Intermediate prolonged Verified 12/06/22 10:37 QT interval Sulfa (Sulfonamide Allergy Intermediate RASH Verified 12/06/22 10:37 Antibiotics) [SULFA (SULFONAMIDE ANTIBIOTICS)] haloperidol [From Haldol] Allergy Mild unknown Verified 02/15/23 11:40 morphine [MORPHINE] Allergy Mild Rash Verified 12/06/22 10:37 NSAIDS (Non-Steroidal AdvReac Intermediate STOMACH Verified 12/06/22 10:37 Anti-Inflamma UPSET [NSAIDS (NON-STEROIDAL ANTI-INFLAMMA] fentanyl patch Allergy Severe Unresponsiv Uncoded 12/06/22 10:37 e Review of Systems Sugical H&P ROS: Negative: Constitution, Cardiovascular, Respiratory, Neurological, Psychiatric, Hem-Onc, Allergic/Immunologic, Gastrointestinal, Genitourinary, Musculoskeletal, Integumentary, Endocrine and E yes/Ears/Nose/Throat Exam Surgical H&P Exam: Normal: HEENT, Normal: Heart, Normal: Lungs, Normal: Extremities, Normal: Skin and Normal: Neurological and Significant Findings: Abdomen (tender epigastrium) Plan Diagnosis/Plan: Unchanged I have reviewed the history and physical and performed a pertinent physical examination on my patient. No changes have occurred unless specified. EGD with possible push enteroscopy Time Spent With Patient Time: Total time managing care of this patient today ____ minutes.
--- NOTE | 2023-02-15 12:34 | HO.ANESPROP2 ---
HPI - Anesthesia Eval Consult details Narrative: EGD for epigastrial pain PMFSH Active Problems Active Problems: All Active Problems (Updated 12/06/22 @ 11:02 by Sivan Patino MD) Diarrhea (Acute) Marginal ulcer (Acute) Malnutrition (Acute) Chronic UTI (urinary tract infection) (Acute) Lumbar spondylosis (Acute) Right knee pain (Acute) Knee pain (Acute) Visceral abdominal pain (Acute) Constipation (Acute) Therapeutic opioid-induced constipation (OIC) (Acute) Pelvic pain in female (Acute) Nocturia more than twice per night (Acute) Interstitial cystitis (Acute) Dysuria (Acute) Epigastric abdominal pain (Acute) Diarrhea associated with pseudomembranous colitis (Acute) Nausea & vomiting (Acute) Past Medical History Medical History Burn injury Arthritis Low back pain Elevated cholesterol SOB (shortness of breath) Asthma Numbness Mood disorder IBS (irritable bowel syndrome) OAB (overactive bladder) HTN (hypertension) Sleep apnea Hypersomnia Anxiety Family History Family History Father Hx of colon cancer, stage IV Mother Family history of high blood pressure Family history of problems with anesthesia: No Surgical History Surgical History Hx of gastric bypass Hx of total knee replacement Hx of knee surgery Hx of hernia repair History of cystoscopy Hx of laparoscopic gastric banding Hx of hysterectomy History of H/O gastric bypass Hx of endoscopy History of colonoscopy History of Problems with Anesthesia: No Social History Social History Alcohol intake: never Comment: previously medicated Patient Tobacco Use Status: Never used Tobacco Substance Use Type: Marijuana Are you DNR?: No Advance Directives: No Advance Directives Information Provided: Yes Patient : No Meds Allergies Allergy/AdvReac Type Severity Reaction Status Date / Time sertraline [From ZOLOFT] Allergy Intermediate prolonged Verified 12/06/22 10:37 QT interval Sulfa (Sulfonamide Allergy Intermediate RASH Verified 12/06/22 10:37 Antibiotics) [SULFA (SULFONAMIDE ANTIBIOTICS)] haloperidol [From Haldol] Allergy Mild unknown Verified 02/15/23 11:40 morphine [MORPHINE] Allergy Mild Rash Verified 12/06/22 10:37 NSAIDS (Non-Steroidal AdvReac Intermediate STOMACH Verified 12/06/22 10:37 Anti-Inflamma UPSET [NSAIDS (NON-STEROIDAL ANTI-INFLAMMA] fentanyl patch Allergy Severe Unresponsiv Uncoded 12/06/22 10:37 e Active Medications: Current Medications Lactated Ringer's (Lr) 1,000 mls @ 50 mls/hr IVCONT .Q20H SILVINA Last Admin: 02/15/23 11:47 Dose: 50 mls/hr Home Medications Medication Instructions Recorded Confirmed Last Taken Type albuterol sulfate 2.5 mg/3 mL 1 vial inhalation Q6H 10/07/20 09/29/22 10/04/22 History (0.083 %) solution for nebulization fluticasone propionate 220 2 puff PO BID 10/07/20 09/29/22 08/23/22 History mcg/actuation HFA aerosol inhaler (Flovent HFA) montelukast 10 mg tablet 1 tab PO DAILY 10/07/20 09/29/22 Unknown History quetiapine 200 mg tablet 1 tab PO BEDTIME PRN insomnia 10/07/20 08/04/22 08/23/22 History fluticasone propionate 50 2 spray intranasal DAILY 02/03/21 09/29/22 Unknown History mcg/actuation nasal spray,suspension amlodipine 5 mg-benazepril 10 mg 1 cap PO DAILY 09/25/21 09/29/22 02/15/23 History capsule zolpidem 5 mg tablet 5 mg PO BEDTIME PRN Insomnia 09/25/21 09/29/22 08/23/22 History clonazepam 0.5 mg tablet 0.5 mg PO QID 12/28/21 09/29/22 02/15/23 History quetiapine 25 mg tablet 25 mg PO DAILY 12/28/21 09/29/22 08/23/22 History amlodipine 5 mg tablet 5 mg PO DAILY 01/25/22 09/29/22 08/24/22 History scopolamine base 1 mg over 3 days 1 patch transdermal Q3D 01/25/22 09/29/22 08/21/22 History transdermal patch oxcarbazepine 300 mg tablet 300 mg PO BID 08/24/22 08/24/2223 History (Trileptal) oxycodone 15 mg tablet 15 mg PO Q4H PRN pain 09/29/22 Unknown History albuterol sulfate 90 mcg/actuation inhalation 11/26/22 Unknown History aerosol inhaler (Ventolin HFA) cholecalciferol (vitamin D3) 1,250 1,250 mcg PO QWEEK 11/26/22 Unknown History mcg (50,000 unit) capsule esomeprazole magnesium 40 mg 40 mg PO DAILY 11/26/22 Unknown History capsule,delayed release sucralfate 1 gram tablet (Carafate) 1 g PO QIDACHS 12/06/22 Unknown History Exam Height,Weight and Vital Signs: Height 5 ft 5 in Weight 74.48 kg Last Vital Signs Temp 98 F 02/15/23 11:37 Pulse 83 02/15/23 11:37 Resp 18 02/15/23 11:37 BP 125/89 02/15/23 11:37 Pulse Ox 97 02/15/23 11:37 O2 Del Method Room Air 02/15/23 11:37 Airway Mallampati Class: II TM Dist: >3cm Neck ROM: Full Heart: rrr Lungs: cta Assessment and Plan Assessment Anesthesia Assessment: Anesthesia Plan Discussed Final Anesthetic Review Family History of Problems with Anesthesia: No History of Problems with Anesthesia: No NPO: Yes ASA Class: II Final Preanesthetic Review: No Changes in Pt Med Stat, Meds/Allgs Chart Reviewed, Consent Obtained/Reviewed and Anes Risks/Benef Reviewed Patient Risk: Intermediate Procedure Risk: Intermediate Anesthetic Plan Anesthetic Plan: GA, MAC: and Agree w/ Assess. and Plan Disposition: Standard PACU
--- NOTE | 2023-02-15 13:48 | W.PM.OPN ---
Operative Note Operative Note Date of Service: 02/15/23 Narrative: Procedure Description: EGD Indication: nausea, vomiting Anesthesia: MAC FLEXIBLE TRANSORAL UPPER GASTROINTESTINAL ENDOSCOPY UPPER ENDOSCOPY and Push enteroscopy Consent: Indications for the procedure and potential complications of bleeding, perforation, reaction to medications and missed diagnosis were discussed with the patient and informed consent was obtained. Instrument: Olympus GIF H 190 J mid size upper endoscope Monitoring: Vital signs and clinical assessment, continuous EKG monitoring, Pulse oximetry, Carbon Dioxide monitoring and blood pressure monitoring were done throughout the procedure. Procedure: The patient was placed in the left lateral decubitis position and pre-procedure medications were administered and a bite block was placed. The endoscope was inserted into the mouth and advanced under direct vision to the third part of duodenum. A careful inspection was made as the upper endoscope was withdrawn including a retroflexed examination of the proximal stomach; Findings and interventions are described below. Hx of gastric bypass Findings: Larynx:normal Esophagus: GE junction at 37 cm, diaphragm hiatus at 37 cm, swelling and congestion at GEJ, bx taken Stomach pouch: inflamamtion and redness around the pouch outlet, bx taken as well as from the stomach pouch Jejunum: Normal, bx taken, also reached the jejuno jejunal anastomosis and appeared normal, went up excluded limb and seemed normal Intervention: Biopsies as noted above, Impression/Findings: mild inflammation around anstomosis esophagitis PLAN: cont with PPI (open capsule_ with carafate) will also start urosdiol trial in case o retention gastritis might benefit from stopping THC for 3 months and see if helps sx in case of cannabis hyperemesis syndrome
[2023-02-15 13:52] VITALS: BP 142/93; PULSE 106; RESP 16; TEMP 36.1; O2SAT 100
[2023-02-15 14:07] VITALS: BP 143/102; PULSE 79; RESP 16; TEMP 36.1; O2SAT 99
== END 2023-02-15 14:38 | disposition home or self-care (01) ==
PROVIDERS: PCP Nurse Practitioner Family; Visit Provider Internal Medicine Gastroenterology
PROC: 0DJ08ZZ Inspection of Upper Intestinal Tract, Via Natural or Artificial Opening Endoscopic (ICD-10-PCS; CPT 43235; principal; 2023-02-15 12:40)
DX: K20.90 Esophagitis, unspecified without bleeding (principal); K22.10 Ulcer of esophagus without bleeding; K28.9 Gastrojejunal ulcer, unspecified as acute or chronic, without hemorrhage or perforation; K22.89 Other specified disease of esophagus; E46 Unspecified protein-calorie malnutrition; Z68.26 Body mass index [BMI] 26.0-26.9, adult; R19.7 Diarrhea, unspecified; E78.5 Hyperlipidemia, unspecified; J45.909 Unspecified asthma, uncomplicated; K58.9 Irritable bowel syndrome, unspecified; I10 Essential (primary) hypertension; G47.30 Sleep apnea, unspecified; F41.9 Anxiety disorder, unspecified; F12.90 Cannabis use, unspecified, uncomplicated; Z98.84 Bariatric surgery status; Z90.710 Acquired absence of both cervix and uterus; Z80.0 Family history of malignant neoplasm of digestive organs; Z79.899 Other long term (current) drug therapy
CPT/HCPCS: 43239; 88305; 88342; J2704

== ENCOUNTER → 2023-02-15 10:59 | Outpatient (BNV) | payer MEDICARE, MEDICAID, SELFPAY | PROVIDERS: PCP Nurse Practitioner Family; Visit Provider Internal Medicine Gastroenterology | DX: R11.2 Nausea with vomiting, unspecified (principal); K20.90 Esophagitis, unspecified without bleeding; Z98.0 Intestinal bypass and anastomosis status | CPT/HCPCS: 43239 ==

== ENCOUNTER 2023-02-25 13:45 | Outpatient (REF) | payer MEDICARE, MEDICAID, SELFPAY | END 2023-02-25 13:46 | disposition home or self-care (01) | LOC: HO.MDS 13:45 | PROVIDERS: PCP Nurse Practitioner Family; Visit Provider Internal Medicine Gastroenterology | DX: D50.8 Other iron deficiency anemias (principal) | CPT/HCPCS: 96365; J1756 ==

== ENCOUNTER 2023-03-04 11:22 | Outpatient (AMB) | payer MEDICARE, MEDICAID, SELFPAY ==
--- NOTE | 2023-03-04 11:23 | A.OFFVIS_ITS ---
Intake Vital Signs 03/04/23 11:23 Height 5 ft 5 in Blood Pressure Location Lt brachial Position Sitting Intake Visit Reasons: 3 month follow up Intake Note: Eboni presents as a video call today. CC: She states that she is having concerns with her stomach. She has been having alternating bowels between diarrhea and constipation. She woke up from a nap yesterday and she had feces all over. She states that she has gas that smells severe. She states that she had a gastric bypass last year. She gets diarrhea so much that she has to go in for fluids every so often. Gas Treater Required: No Allergies sertraline [From ZOLOFT] Allergy (Intermediate, Verified 03/04/23 11:24) prolonged QT interval Sulfa (Sulfonamide Antibiotics) [SULFA (SULFONAMIDE ANTIBIOTICS)] Allergy (Intermediate, Verified 03/04/23 11:24) RASH haloperidol [From Haldol] Allergy (Mild, Verified 03/04/23 11:24) unknown morphine [MORPHINE] Allergy (Mild, Verified 03/04/23 11:24) Rash NSAIDS (Non-Steroidal Anti-Inflamma [NSAIDS (NON-STEROIDAL ANTI-INFLAMMA] Adverse Reaction (Intermediate, Verified 03/04/23 11:24) STOMACH UPSET fentanyl patch Allergy (Severe, Uncoded 03/04/23 11:24) Unresponsive HPI 3 month follow up HPI Details 47 yr old f being called for f/u RECAP: she has 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 sleep is poor, 4 hrs off and on she is on tramadol, having issues with constipation. once q4 days EGD 03/2018- gastritis also prior hx of kenalog trigger injection, hard to say if helped. she was given linaclotide to help with constipation GES---normal she was having ongoing issues with pain and was optimized on acid suppression with h2, PPI and carafate, was trying to get her movantik she represented 01/2019 to office with c/o worsening epigastric pain, nausea, and poor appetite with weight loss. using linaclotide helping her constipation, on fentanyl patch--goes every few days I offered her admission but she refused but she was dizzy so sent to ED, labs inc LFT, BMP, CBC were neg and CT was unremarkable without any acute pathology EGD then done 02/2019 with bx revealing chronic reflux damage and gastritis, looked like sandy but the stain was neg U/s 03/2019- liver normal, F0 on elastography, ?left kidney stone, Ba swallow 03/2019- patent GEJ, mild reflux pending urine 24 hr tests and metanephrines At f/u visit 05/2019--she was awaiting w/u for interstitial cystitis she was doing well with donantal and compazine capsule endoscopy was done and was neg was advised to try align, IBGARD, stress reduction She had cystoscopy with Dr Rodriguez for her IC she had surgery with removal of adhesions at [facility] 05/2021 and hiatal hernia repair she had ongoing problems and had EGD with gastrtiis, and bile reflux in stomach she is on trileptel for bipolar I ordered KUB with moderate stool burden Increased movantik to 25 mg but stopped it due to too much diarrhea she had kenalog injection to area of pain in abdomen, which she feels may have helped a little She had EGD/colon with Dr Allan 04/05 Marginal ulcer noted at [facility] colon was tortuous hyperplastic polyp removed with rando colo bx with crypt distortion REPT EGD: 08/24/22 Hx of gastric bypass Findings: Larynx:normal Esophagus: GE junction at 37 cm, diaphragm hiatus at 37 cm, no varices or esophagitis. Stomach pouch: x 4 retained sola noted with mild superficial inflammation and erosions noted around 3 of these. These were removed with cold forceps and bx taken from the anastomotic site and the pouch. Overall appearances appeared improved as compared to before. Jejunum: Normal Intervention: Biopsies as noted above, removal of retained sola Impression/Findings: retained sola mild inflammation around anstomosis PLAN: cont with PPI I again scoped her for reassessment 02/15/23-- improved compared to before with chronic active inflammation at anasotmosis i added ursodiol INTERIM: she has been having worsening diarrhea --smells bad and has foamy appearance to it she has bloating not had c diff checked, she is still losing weight no fever EXAM: GENERAL: The patient is well developed and nontoxic. Assessments 1/ Diarrhea, maybe related to panc insuff and gastric bypass PLAN: 1/ trial of pancreatic enzymes as ordere d before 2/ cont to take lansoprazole, with open capsule 3/ check c diff-- GI PCR panel, labs and nutrients [facility] Medical History Burn injury Arthritis Low back pain Elevated cholesterol SOB (shortness of breath) Asthma Numbness Mood disorder IBS (irritable bowel syndrome) OAB (overactive bladder) HTN (hypertension) Sleep apnea Hypersomnia Anxiety Surgical History Hx of gastric bypass Hx of total knee replacement Hx of knee surgery Hx of hernia repair History of cystoscopy Hx of laparoscopic gastric banding Hx of hysterectomy History of H/O gastric bypass Hx of endoscopy History of colonoscopy Family History Father Hx of colon cancer, stage IV Mother Family history of high blood pressure Social History Alcohol intake: never Comment: previously medicated Patient Tobacco Use Status: Never used Tobacco Substance Use Type: Marijuana Assessment & Plan Assessment & Plan (1) Marginal ulcer: Code(s): K28.9 - Gastrojejunal ulcer, unspecified as acute or chronic, without hemorrhage or perforation Plan: see abive (2) Malnutrition: Code(s): E46 - Unspecified protein-calorie malnutrition Plan: see above (3) Diarrhea: Code(s): R19.7 - Diarrhea, unspecified Plan: see above Orders: Orders Comprehensive Met. Panel Today E46 - Unspecified protein-calorie malnutrition, K28.9 - Gastrojejunal ulcer, unspecified as acute or chronic, without hemorrhage or perforation, K75.81 - Nonalcoholic steatohepatitis (CELIS), R19.7 - Diarrhea, unspecified Zinc Today E46 - Unspecified protein-calorie malnutrition, K28.9 - Gastrojejunal ulcer, unspecified as acute or chronic, without hemorrhage or perforation, R19.7 - Diarrhea, unspecified Vitamin B12 and Folate Today E46 - Unspecified protein-calorie malnutrition, K28.9 - Gastrojejunal ulcer, unspecified as acute or chronic, without hemorrhage or perforation, R19.7 - Diarrhea, unspecified Ferritin Today E46 - Unspecified protein-calorie malnutrition, K28.9 - Gastrojejunal ulcer, unspecified as acute or chronic, without hemorrhage or perforation, R19.7 - Diarrhea, unspecified Vitamin B5 (Pantothenic Acid) Today E46 - Unspecified protein-calorie malnutrition, K28.9 - Gastrojejunal ulcer, unspecified as acute or chronic, without hemorrhage or perforation, R19.7 - Diarrhea, unspecified Vitamin B6 Today E46 - Unspecified protein-calorie malnutrition, K28.9 - Gastrojejunal ulcer, unspecified as acute or chronic, without hemorrhage or perforation, R19.7 - Diarrhea, unspecified Vitamin D 25-OH Total Today E46 - Unspecified protein-calorie malnutrition, K28.9 - Gastrojejunal ulcer, unspecified as acute or chronic, without hemorrhage or perforation, R19.7 - Diarrhea, unspecified Complete Blood Count Auto Diff Today E46 - Unspecified protein-calorie malnutrition, K28.9 - Gastrojejunal ulcer, unspecified as acute or chronic, without hemorrhage or perforation, R19.7 - Diarrhea, unspecified Magnesium Today E46 - Unspecified protein-calorie malnutrition, K28.9 - Gastrojejunal ulcer, unspecified as acute or chronic, without hemorrhage or perforation, R19.7 - Diarrhea, unspecified Vitamin B1 Today E46 - Unspecified protein-calorie malnutrition, K28.9 - Gastrojejunal ulcer, unspecified as acute or chronic, without hemorrhage or perforation, R19.7 - Diarrhea, unspecified Vitamin B3 (Niacin) Today E46 - Unspecified protein-calorie malnutrition, K28.9 - Gastrojejunal ulcer, unspecified as acute or chronic, without hemorrhage or perforation, R19.7 - Diarrhea, unspecified Vitamin C Today E46 - Unspecified protein-calorie malnutrition, K28.9 - Gastrojejunal ulcer, unspecified as acute or chronic, without hemorrhage or perforation, R19.7 - Diarrhea, unspecified CDiff Gene PCR Today E46 - Unspecified protein-calorie malnutrition, K28.9 - Gastrojejunal ulcer, unspecified as acute or chronic, without hemorrhage or perforation, R19.7 - Diarrhea, unspecified GI Panel Today E46 - Unspecified protein-calorie malnutrition, K28.9 - Gastrojejunal ulcer, unspecified as acute or chronic, without hemorrhage or perforation, R19.7 - Diarrhea, unspecified TSH reflex Free T4 Today E46 - Unspecified protein-calorie malnutrition, K28.9 - Gastrojejunal ulcer, unspecified as acute or chronic, without hemorrhage or perforation, R19.7 - Diarrhea, unspecified Telehealth Telehealth Location of provider rendering services: practice address Location of patient: address on file Patient Identification confirmed using: Name, : Yes Telehealth method: video Patient verbally consented to treatment: Yes Patient verbally consented to billing insurance company: Yes Patient informed of any privacy concerns related to visit: Yes Minutes spent on Phone/Video with Pt.: 11 Coding Level of Care Code Est Pt Level 3 (36437) Diagnoses Marginal ulcer K28.9 Malnutrition E46 Diarrhea R19.7
== END 2023-03-04 13:58 | disposition home or self-care (01) ==
LOC: HO.HGI 11:23
PROVIDERS: PCP Nurse Practitioner Family; Visit Provider Internal Medicine Gastroenterology
DX: K28.9 Gastrojejunal ulcer, unspecified as acute or chronic, without hemorrhage or perforation (principal); E46 Unspecified protein-calorie malnutrition; R19.7 Diarrhea, unspecified
CPT/HCPCS: 99213

== ENCOUNTER → 2023-03-04 11:22 | Outpatient (BNVA) | payer MEDICARE, MEDICAID, SELFPAY | PROVIDERS: PCP Nurse Practitioner Family; Visit Provider Internal Medicine Gastroenterology | DX: K28.9 Gastrojejunal ulcer, unspecified as acute or chronic, without hemorrhage or perforation (principal); E46 Unspecified protein-calorie malnutrition; R19.7 Diarrhea, unspecified | CPT/HCPCS: 99212 ==

== ENCOUNTER 2023-04-19 13:52 | Outpatient (REF) | payer MEDICARE, MEDICAID, SELFPAY ==
--- NOTE | ~2023-04-19 | US_ITS ---
EXAMINATION: US RETROPERITONEAL LIMITED (RENAL ONLY) CLINICAL INFORMATION: Urinary tract infection, site not specified. COMPARISON: Abdominal ultrasound 03/21/2019 TECHNIQUE: Real-time imaging of the kidneys. FINDINGS: RIGHT KIDNEY: 11.3 x 3.9 x 6.6 cm (SAG x AP x TRV). The kidney is normal in size, contour, and echogenicity. Renal cortical thickness is normal. No calculi or focal parenchymal lesions. No hydronephrosis. LEFT KIDNEY: 10.6 x 5.7 x 5.0 cm (SAG x AP x TRV). The kidney is normal in size, contour, and echogenicity. Renal cortical thickness is normal. No calculi or focal parenchymal lesions. No hydronephrosis. US/US renal BI IMPRESSION: Normal renal ultrasound.
== END 2023-04-19 13:53 | disposition home or self-care (01) ==
LOC: HO.US 13:52
PROVIDERS: PCP Nurse Practitioner Family; Visit Provider Urology
DX: N30.10 Interstitial cystitis (chronic) without hematuria (principal); R30.0 Dysuria; R10.2 Pelvic and perineal pain
CPT/HCPCS: 76775

== ENCOUNTER 2023-04-20 11:32 | Outpatient (AMB) | payer MEDICARE, MEDICAID, SELFPAY ==
--- NOTE | 2023-04-20 11:44 | A.OFFVIS_ITS ---
Intake Intake Visit Reasons: discuss hydrodistention Intake Note: Patient is present for telephone discussion on Hydrodistention Allergies sertraline [From ZOLOFT] Allergy (Intermediate, Verified 03/04/23 11:24) prolonged QT interval Sulfa (Sulfonamide Antibiotics) [SULFA (SULFONAMIDE ANTIBIOTICS)] Allergy (Intermediate, Verified 03/04/23 11:24) RASH haloperidol [From Haldol] Allergy (Mild, Verified 03/04/23 11:24) unknown morphine [MORPHINE] Allergy (Mild, Verified 03/04/23 11:24) Rash NSAIDS (Non-Steroidal Anti-Inflamma [NSAIDS (NON-STEROIDAL ANTI-INFLAMMA] Adverse Reaction (Intermediate, Verified 03/04/23 11:24) STOMACH UPSET fentanyl patch Allergy (Severe, Uncoded 03/04/23 11:24) Unresponsive HPI HPI Comments History of Present Illness Details Eboni is a pleasant female. She is a patient of Dr. Nassar. She is seen for the following urologic conditions - interstitial cystitis - recurring UTI Telemedicine Evaluation 15 min Consultation [employer] Jeramy Video attempted Is time to repeat hydrodistention Developing symptoms Interstitial cystitis Have used combination amitriptyline, gabapentin for frequent nocturia Post recent hydrodistention - hydrodistention performed in February 2019. persistent urgency frequency. States nocturia times 5-6. Trouble holding urine and accidents. Already on strict diet secondary to gastric sleeve surgery - prior medications include Elmiron, oxy butynin, tolterodine - current medications Toviaz - Last hydrodistention 10/03 PFSH Medical History Burn injury Arthritis Low back pain Elevated cholesterol SOB (shortness of breath) Asthma Numbness Mood disorder IBS (irritable bowel syndrome) OAB (overactive bladder) HTN (hypertension) Sleep apnea Hypersomnia Anxiety Surgical History Hx of gastric bypass Hx of total knee replacement Hx of knee surgery Hx of hernia repair History of cystoscopy Hx of laparoscopic gastric banding Hx of hysterectomy History of H/O gastric bypass Hx of endoscopy History of colonoscopy Family History Father Hx of colon cancer, stage IV Mother Family history of high blood pressure Social History Alcohol intake: never Comment: previously medicated Patient Tobacco Use Status: Never used Tobacco Substance Use Type: Marijuana Review of Systems Const All systems reviewed & are unremarkable except as noted in HPI and below Reports no additional complaints Resp Reports no additional complaints GI Reports no additional complaints Reports as per HPI Musc Reports no additional complaints Physical Exam Telemedicine evaluation Appropriate responses Regular breathing rate and rhythm HEENT Head: Yes normal to inspection Ears: hearing grossly normal bilaterally Eyes General: appearance normal, both eyes and all related structures Neck Neck: Yes normal visual inspection Chest Chest palpation & inspection: normal inspection of the chest Resp Effort & Inspection: normal respiratory effort and able to speak in complete sentences Assessment & Plan Assessment & Plan (1) Pelvic pain in female: Comment: 12/31 right pelvic side wall, bilateral anterior Code(s): R10.2 - Pelvic and perineal pain (2) Interstitial cystitis: Code(s): N30.10 - Interstitial cystitis (chronic) without hematuria Plan Risks, benefits and alternatives to therapy were discussed. These include but are not limited to infection, bleeding, damage to local organs and tissues, need for further interventions. Anesthetic risks regarding cardiac arrhythmia, blood clots, and potential mortality were discussed. The patient understands the typical recovery time and the outpatient nature of the procedure. After consideration of these risks the patient gives full informed consent and they wish to move ahead with the procedure. Hydrodistention Medications: Changed From fesoterodine ER 4 mg PO DAILY 90 days 90 tabs 1RF To fesoterodine ER 8 mg PO DAILY 30 tabs 1RF 30 days Patient Instructions: Imaging studies, laboratory and physical exam results were discussed and reviewed in detail. No major barriers to patient understanding were identified. An opportunity to ask questions regarding the treatment plan was provided. All questions were answered. The patient expressed understanding and agreement with the above treatment plan. The patient is aware they should contact our office by phone for worsening of their current condition or the appearance of new urologic symptoms. Compliance is encouraged with any medications and followup testing that is ordered. It is a privilege to participate in the urologic care of your patient. If you have any questions or concerns regarding treatment for the above conditions, or other urologic issues, please do not hesitate to contact me. The office telephone contact is [phone]. This note is constructed using voice recognition software. While every effort has been made to ensure accuracy convenience store clerk errors may have been included. Yours sincerely, Dr Kenneth Rodriguez MD, DEE [facility] - Urology Providers of Expert, Compassionate Care for the Genitourinary System Telehealth Telehealth Location of provider rendering services: practice address Location of patient: address on file Patient Identification confirmed using: Name, : Yes Telehealth method: video Patient verbally consented to treatment: Yes Patient verbally consented to billing insurance company: Yes Patient informed of any privacy concerns related to visit: Yes Coding Level of Care Code Tele Est Pt Level 4 (97321) Diagnoses Pelvic pain in female R10.2 Interstitial cystitis N30.10
== END 2023-04-20 12:09 | disposition home or self-care (01) ==
LOC: HO.HUSH 11:32
PROVIDERS: PCP Nurse Practitioner Family; Visit Provider Urology
DX: R10.2 Pelvic and perineal pain (principal); N30.10 Interstitial cystitis (chronic) without hematuria
CPT/HCPCS: 99214

== ENCOUNTER → 2023-04-20 11:32 | Outpatient (BNVA) | payer MEDICARE, MEDICAID, SELFPAY | PROVIDERS: PCP Nurse Practitioner Family; Visit Provider Urology ==

== ENCOUNTER 2023-04-25 09:36 | Outpatient (AMB) | payer MEDICARE, MEDICAID, SELFPAY ==
--- NOTE | 2023-04-25 09:37 | MHC.OFFVIS ---
Intake Intake Visit Reasons: nausea, abdominal pains Intake Note: Eboni presents as a video call today. CC: She states she always has nausea d/t IBS. She states she continues to have diarrhea, constipation, abdominal pain, and nausea. Sizing Machine Tender Required: No Allergies sertraline [From ZOLOFT] Allergy (Intermediate, Verified 04/25/23 09:38) prolonged QT interval Sulfa (Sulfonamide Antibiotics) [SULFA (SULFONAMIDE ANTIBIOTICS)] Allergy (Intermediate, Verified 04/25/23 09:38) RASH haloperidol [From Haldol] Allergy (Mild, Verified 04/25/23 09:38) unknown morphine [MORPHINE] Allergy (Mild, Verified 04/25/23 09:38) Rash NSAIDS (Non-Steroidal Anti-Inflamma [NSAIDS (NON-STEROIDAL ANTI-INFLAMMA] Adverse Reaction (Intermediate, Verified 04/25/23 09:38) STOMACH UPSET fentanyl patch Allergy (Severe, Uncoded 03/04/23 11:24) Unresponsive HPI nausea, abdominal pains HPI Details 47 yr old f being called for f/u RECAP: she has 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 sleep is poor, 4 hrs off and on she is on tramadol, having issues with constipation. once q4 days EGD 03/2018- gastritis also prior hx of kenalog trigger injection, hard to say if helped. she was given linaclotide to help with constipation GES---normal she was having ongoing issues with pain and was optimized on acid suppression with h2, PPI and carafate, was trying to get her movantik she represented 01/2019 to office with c/o worsening epigastric pain, nausea, and poor appetite with weight loss. using linaclotide helping her constipation, on fentanyl patch--goes every few days I offered her admission but she refused but she was dizzy so sent to ED, labs inc LFT, BMP, CBC were neg and CT was unremarkable without any acute pathology EGD then done 02/2019 with bx revealing chronic reflux damage and gastritis, looked like sandy but the stain was neg U/s 03/2019- liver normal, F0 on elastography, ?left kidney stone, Ba swallow 03/2019- patent GEJ, mild reflux pending urine 24 hr tests and metanephrines At f/u visit 05/2019--she was awaiting w/u for interstitial cystitis she was doing well with donantal and compazine capsule endoscopy was done and was neg was advised to try align, IBGARD, stress reduction She had cystoscopy with Dr Rodriguez for her IC she had surgery with removal of adhesions at [facility] 05/2021 and hiatal hernia repair she had ongoing problems and had EGD with gastrtiis, and bile reflux in stomach she is on trileptel for bipolar I ordered KUB with moderate stool burden Increased movantik to 25 mg but stopped it due to too much diarrhea she had kenalog injection to area of pain in abdomen, which she feels may have helped a little She had EGD/colon with Dr Allan 04/05 Marginal ulcer noted at [facility] colon was tortuous hyperplastic polyp removed with rando colo bx with crypt distortion REPT EGD: 08/24/22 Hx of gastric bypass Findings: Larynx:normal Esophagus: GE junction at 37 cm, diaphragm hiatus at 37 cm, no varices or esophagitis. Stomach pouch: x 4 retained sola noted with mild superficial inflammation and erosions noted around 3 of these. These were removed with cold forceps and bx taken from the anastomotic site and the pouch. Overall appearances appeared improved as compared to before. Jejunum: Normal Intervention: Biopsies as noted above, removal of retained sola Impression/Findings: retained sola mild inflammation around anstomosis PLAN: cont with PPI I again scoped her for reassessment 02/15/23-- improved compared to before with chronic active inflammation at anasotmosis i added ursodiol INTERIM: she has been having ongoing pain, she has no interest in food she is taking more tea she has ongoing diarrhea, coming and going she has not been taking ursodiol on regular basis she stopped taking carafate, only taking lansoprazole she has been taking protein shakes EXAM: GENERAL: The patient is well developed and nontoxic. undistressed Assessments 1/ Diarrhea, maybe related to panc insuff and gastric bypass as well as abdominal pain maybe related to vascular insuff and chronic inflammation at anastomosis, unlikely to have Intussusception? PLAN: 1/ cont to take open capsule esomeprazole and add back carafate 2/ trial of levsin and trental 3/ if ongoing weight loss might need G tube in excluded stomach and ancillary feeding PFSH Medical History Burn injury Arthritis Low back pain Elevated cholesterol SOB (shortness of breath) Asthma Numbness Mood disorder IBS (irritable bowel syndrome) OAB (overactive bladder) HTN (hypertension) Sleep apnea Hypersomnia Anxiety Surgical History Hx of gastric bypass Hx of total knee replacement Hx of knee surgery Hx of hernia repair History of cystoscopy Hx of laparoscopic gastric banding Hx of hysterectomy History of H/O gastric bypass Hx of endoscopy History of colonoscopy Family History Father Hx of colon cancer, stage IV Mother Family history of high blood pressure Social History Alcohol intake: never Comment: previously medicated Patient Tobacco Use Status: Never used Tobacco Substance Use Type: Marijuana Assessment & Plan Assessment & Plan (1) Marginal ulcer: Code(s): K28.9 - Gastrojejunal ulcer, unspecified as acute or chronic, without hemorrhage or perforation Plan: 1/ Diarrhea, maybe related to panc insuff and gastric bypass as well as abdominal pain maybe related to vascular insuff and chronic inflammation at anastomosis, unlikely to have Intussusception? PLAN: 1/ cont to take open capsule esomeprazole and add back carafate 2/ trial of levsin and trental 3/ if ongoing weight loss might need G tube in excluded stomach and ancillary feeding (2) Malnutrition: Code(s): E46 - Unspecified protein-calorie malnutrition Plan: 1/ Diarrhea, maybe related to panc insuff and gastric bypass as well as abdominal pain maybe related to vascular insuff and chronic inflammation at anastomosis, unlikely to have Intussusception? PLAN: 1/ cont to take open capsule esomeprazole and add back carafate 2/ trial of levsin and trental 3/ if ongoing weight loss might need G tube in excluded stomach and ancillary feeding Medications: New sucralfate 1 g PO QIDACHS 90 tabs 2RF hyoscyamine sulfate 0.125 mg PO BID-QID PRN 60 tabs 2RF dyspepsia pentoxifylline ER must administer with a meal/food 400 mg PO TID 120 tabs 2RF Telehealth Telehealth Location of provider rendering services: practice address Location of patient: address on file Patient Identification confirmed using: Name, : Yes Telehealth method: video Patient verbally consented to treatment: Yes Patient verbally consented to billing insurance company: Yes Patient informed of any privacy concerns related to visit: Yes Minutes spent on Phone/Video with Pt.: 14 Coding Level of Care Code Tele Est Pt Level 3 (56366) Diagnoses Marginal ulcer K28.9 Malnutrition E46
== END 2023-04-25 11:44 | disposition home or self-care (01) ==
LOC: HO.HGI 09:36
PROVIDERS: PCP Nurse Practitioner Family; Visit Provider Internal Medicine Gastroenterology
DX: K28.9 Gastrojejunal ulcer, unspecified as acute or chronic, without hemorrhage or perforation (principal); E46 Unspecified protein-calorie malnutrition
CPT/HCPCS: 99213

== ENCOUNTER → 2023-04-25 09:36 | Outpatient (BNVA) | payer MEDICARE, MEDICAID, SELFPAY | PROVIDERS: PCP Nurse Practitioner Family; Visit Provider Internal Medicine Gastroenterology ==

== ENCOUNTER 2023-05-03 09:05 | Day surgery (SDC) | payer MEDICARE, MEDICAID, SELFPAY ==
[2023-05-03] VITALS (8 sets, daily range): BP systolic 139–177; BP diastolic 69–111; PULSE 73–94; RESP 16–18; TEMP 36.4–37.1; O2SAT 97–100; BMI 25.1
[2023-05-03] MEDS: Lactated Ringers 1,000 ML 50 ML IVCONT (10:45)
--- NOTE | 2023-05-03 10:45 | HO.ANESPROP2 ---
HPI - Anesthesia Eval Consult details Narrative: for cysto, hydrodistension PMFSH Active Problems Active Problems: All Active Problems (Updated 12/06/22 @ 11:02 by Sivan Patino MD) Diarrhea (Acute) Marginal ulcer (Acute) Malnutrition (Acute) Chronic UTI (urinary tract infection) (Acute) Lumbar spondylosis (Acute) Right knee pain (Acute) Knee pain (Acute) Visceral abdominal pain (Acute) Constipation (Acute) Therapeutic opioid-induced constipation (OIC) (Acute) Pelvic pain in female (Acute) Nocturia more than twice per night (Acute) Interstitial cystitis (Acute) Dysuria (Acute) Epigastric abdominal pain (Acute) Diarrhea associated with pseudomembranous colitis (Acute) Nausea & vomiting (Acute) Past Medical History Medical History Burn injury Arthritis Low back pain Elevated cholesterol SOB (shortness of breath) Asthma Numbness Mood disorder IBS (irritable bowel syndrome) OAB (overactive bladder) HTN (hypertension) Sleep apnea Hypersomnia Anxiety Patient : No Family History Family History Father Hx of colon cancer, stage IV Mother Family history of high blood pressure Family history of problems with anesthesia: No Surgical History Surgical History Hx of gastric bypass Hx of total knee replacement Hx of knee surgery Hx of hernia repair History of cystoscopy Hx of laparoscopic gastric banding Hx of hysterectomy History of H/O gastric bypass Hx of endoscopy History of colonoscopy History of Problems with Anesthesia: No Social History Social History Alcohol intake: never Comment: previously medicated Patient Tobacco Use Status: Never used Tobacco Use of substances other than those prescribed or required for medical reasons: Yes Substance Use Type: Marijuana Are you DNR?: No Advance Directives: No Advance Directives Information Provided: Yes Meds Allergies Allergy/AdvReac Type Severity Reaction Status Date / Time sertraline [From ZOLOFT] Allergy Intermediate prolonged Verified 04/25/23 09:38 QT interval Sulfa (Sulfonamide Allergy Intermediate RASH Verified 02/12/24 09:38 Antibiotics) [SULFA (SULFONAMIDE ANTIBIOTICS)] haloperidol [From Haldol] Allergy Mild unknown Verified 04/25/23 09:38 morphine [MORPHINE] Allergy Mild Rash Verified 04/25/23 09:38 NSAIDS (Non-Steroidal AdvReac Intermediate STOMACH Verified 04/25/23 09:38 Anti-Inflamma UPSET [NSAIDS (NON-STEROIDAL ANTI-INFLAMMA] fentanyl patch Allergy Severe Unresponsiv Uncoded 03/04/23 11:24 e Home Medications Medication Instructions Recorded Confirmed Last Taken Type albuterol sulfate 2.5 mg/3 mL 1 vial inhalation Q6H 10/07/20 09/29/22 10/04/22 History (0.083 %) solution for nebulization fluticasone propionate 220 2 puff PO BID 10/07/20 09/29/22 08/23/22 History mcg/actuation HFA aerosol inhaler (Flovent HFA) montelukast 10 mg tablet 1 tab PO DAILY 10/07/20 09/29/22 Unknown History quetiapine 200 mg tablet 1 tab PO BEDTIME PRN insomnia 10/07/20 08/04/22 08/23/22 History fluticasone propionate 50 2 spray intranasal DAILY 02/03/21 09/29/22 Unknown History mcg/actuation nasal spray,suspension amlodipine 5 mg-benazepril 10 mg 1 cap PO DAILY 09/25/21 09/29/22 02/15/23 History capsule zolpidem 5 mg tablet 5 mg PO BEDTIME PRN Insomnia 09/25/21 09/29/22 08/23/22 History quetiapine 25 mg tablet 25 mg PO DAILY 12/28/21 09/29/22 08/23/22 History amlodipine 5 mg tablet 5 mg PO DAILY 01/25/22 09/29/22 08/24/22 History scopolamine base 1 mg over 3 days 1 patch transdermal Q3D 01/25/22 09/29/22 08/21/22 History transdermal patch oxcarbazepine 300 mg tablet 300 mg PO BID 08/24/22 08/24/22 08/24/22 History (Trileptal) oxycodone 15 mg tablet 15 mg PO Q4H PRN pain 09/29/22 Unknown History albuterol sulfate 90 mcg/actuation inhalation 11/26/22 Unknown History aerosol inhaler (Ventolin HFA) cholecalciferol (vitamin D3) 1,250 1,250 mcg PO QWEEK 11/26/22 Unknown History mcg (50,000 unit) capsule esomeprazole magnesium 40 mg 40 mg PO DAILY 11/26/22 Unknown History capsule,delayed release cetirizine 10 mg tablet 10 mg PO DAILY 03/04/23 Unknown History clonazepam 1 mg tablet 1 mg PO TID 03/04/23 Unknown History mometasone 200 mcg/actuation HFA 2 puff inhalation BID 03/04/23 Unknown History aerosol inhaler (Asmanex HFA) Exam Height,Weight and Vital Signs: Height 5 ft 5.5 in Weight 69.4 kg Last Vital Signs Temp 98.8 F 05/03/23 09:29 Pulse 94 05/03/23 09:29 Resp 18 05/03/23 09:29 Pulse Ox 97 05/03/23 09:29 O2 Del Method Room Air 05/03/23 09:29 Airway Mallampati Class: II TM Dist: >3cm Neck ROM: Full Partial: Upper and Lower Heart: ok Lungs: ok Assessment and Plan Assessment Anesthesia Assessment: Anesthesia Plan Discussed and Chart Reviewed Final Anesthetic Review Family History of Problems with Anesthesia: No History of Problems with Anesthesia: No NPO: Yes ASA Class: III Final Preanesthetic Review: No Changes in Pt Med Stat, Meds/Allgs Chart Reviewed, Consent Obtained/Reviewed and Anes Risks/Benef Reviewed Patient Risk: Intermediate Procedure Risk: Low Anesthetic Plan Anesthetic Plan: GA and Agree w/ Assess. and Plan Disposition: Standard PACU
--- NOTE | 2023-05-03 11:07 | MHC.SHP ---
Pre-Procedural Eval Section A - 24 Hr Update-Section A only Date of Service: 05/03/23 The patient is an INPATIENT: No The patient has been examined within 24 hours of the surgical procedure. The History & Physical has been completed within 30 days and I have reviewed it.: Yes Section B - Complete if H&P > 30 days Chief Complaint: Interstitial cystitis (chronic) without hematuria Allergies: Allergies Allergy/AdvReac Type Severity Reaction Status Date / Time sertraline [From ZOLOFT] Allergy Intermediate prolonged Verified 04/25/23 09:38 QT interval Sulfa (Sulfonamide Allergy Intermediate RASH Verified 04/25/23 09:38 Antibiotics) [SULFA (SULFONAMIDE ANTIBIOTICS)] haloperidol [From Haldol] Allergy Mild unknown Verified 04/25/23 09:38 morphine [MORPHINE] Allergy Mild Rash Verified 04/25/23 09:38 NSAIDS (Non-Steroidal AdvReac Intermediate STOMACH Verified 04/25/23 09:38 Anti-Inflamma UPSET [NSAIDS (NON-STEROIDAL ANTI-INFLAMMA] fentanyl patch Allergy Severe Unresponsiv Uncoded 03/04/23 11:24 e Plan Diagnosis/Plan: Unchanged I have reviewed the history and physical and performed a pertinent physical examination on my patient. No changes have occurred unless specified. Cystoscopy Hydrodistension Time Spent With Patient Time: Total time managing care of this patient today ____ minutes.
--- NOTE | 2023-05-03 11:48 | W.PM.OPN ---
Operative Note Operative Note Date of Service: 05/03/23 Narrative: PREOP DIAGNOSIS: Interstitial cystitis, pelvic pain, incomplete bladder emptying POSTOP DIAGNOSIS: Interstitial cystitis, pelvic pain, incomplete bladder emptying, urethral stenosis PROCEDURE: CYSTOSCOPY HYDRODISTENTION, BLADDER INSTILLATION, URETHRAL DILATION Anethesia: General Surgeon: Dr. Jeff Rodriges Indications: Interstitial Cystitis Details of procedure: The patient was brought into the operating room placed on the OR table in supine position. 2 g of Ancef IV. General anesthesia was administered. The patient was repositioned into lithotomy position, prepped and draped in the usual sterile fashion. Time-out was done per protocol. 2% lidocaine urojet was passed transurethrally, on attempts to place the 22 fr cystoscope transurethrally there was resistance at the uretheral meatus. The Disposable urethral dilators were used to dilate the urethral meatus starting with the 14 fr and sequentially dilated up to a 24 fr. The 22 fr cystoscope was than passed transurethrally into the bladder. Urine was drained from the bladder measuring 90 mL. The urine was sent for culture. The right and left ureteral orifices were visualized. The entire bladder was visualized. There were no suspicious bladder lesions seen. The bladder was filled with sterile water at 80 cm of water pressure under gravity. The bladder was distended for 2 minutes. Bladder capacity measured 700 mL. There was terminal hematuria. The bladder was refilled with sterile water again at 80 cm of water pressure under gravity. The bladder was distended for 3 minutes. The fluid was drained from the bladder and measured 900 mL. Revisualization of the bladder, noted moderate glomerulations on several quadrants of the bladder. No Benjamín ulcerations were noted. The cystoscope was removed. 2% lidocaine urojet was passed transurethrally, Solution of (1% lidocaine plain, 15 mL, 0.5 % Marcaine 15 mL mixed with 30, 000 units of heparin concentration 5000 units per mL total of 6 mL hepaine) instilled transurethrally into the bladder. The patient was brought out of anesthesia and taken to recovery in stable condition. Complications: None
[2023-05-03] MEDS: Phenazopyridine HCL 200 MG TABLET PO (12:23)
[2023-05-03] MEDS: oxyCODONE HCl Immed Release 5 MG TABLET PO (12:24)
== END 2023-05-03 13:41 | disposition home or self-care (01) ==
PROVIDERS: PCP Nurse Practitioner Family; Visit Provider Urology
PROC: 0T7B7ZZ Dilation of Bladder, Via Natural or Artificial Opening (ICD-10-PCS; CPT 52260; principal; 2023-05-03 10:50)
DX: N30.10 Interstitial cystitis (chronic) without hematuria (principal); R10.2 Pelvic and perineal pain; N32.81 Overactive bladder; I10 Essential (primary) hypertension; E78.00 Pure hypercholesterolemia, unspecified; G47.33 Obstructive sleep apnea (adult) (pediatric); G47.10 Hypersomnia, unspecified; F41.9 Anxiety disorder, unspecified; J45.909 Unspecified asthma, uncomplicated; Z79.51 Long term (current) use of inhaled steroids; Z79.899 Other long term (current) drug therapy; Z88.2 Allergy status to sulfonamides; Z88.5 Allergy status to narcotic agent; Z88.8 Allergy status to other drugs, medicaments and biological substances; F12.90 Cannabis use, unspecified, uncomplicated; Z80.0 Family history of malignant neoplasm of digestive organs; Z98.84 Bariatric surgery status; Z98.890 Other specified postprocedural states
CPT/HCPCS: 52260; 87086; J0690; J1170; J1644; J2250; J2704; J2795; J3010

== ENCOUNTER → 2023-05-03 09:05 | Outpatient (BNV) | payer MEDICARE, MEDICAID, SELFPAY | PROVIDERS: PCP Nurse Practitioner Family; Visit Provider Urology | DX: N30.10 Interstitial cystitis (chronic) without hematuria (principal) | CPT/HCPCS: 52260 ==

== ENCOUNTER 2023-05-18 11:39 | Outpatient (AMB) | payer MEDICARE, MEDICAID, SELFPAY ==
--- NOTE | 2023-05-18 11:45 | HO.NEPHOV ---
HPI HPI Comments History of Present Illness Details 46 years old with history of chronic gastritis, anxiety, depression, history of lap band removal, hypertension, FLOWER, bipolar disorder with chronic abdominal pain with frequent episodes of vomiting and diarrhea along with interstitial cystitis who follows up closely with Urology was seen consultation for her cystitis as well as hypertension. She has normal renal functions. She claimed to have family history of renal dysfunction. There was no family history of any sensorineural deafness, [place] syndrome, thin membrane disease. She is not a diabetic. 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 She denies taking excessive nonsteroidal anti-inflammatories. She is due to have cystoscopy. Her blood pressure has been well controlled. [facility] Medical History Burn injury Arthritis Low back pain Elevated cholesterol SOB (shortness of breath) Asthma Numbness Mood disorder IBS (irritable bowel syndrome) OAB (overactive bladder) HTN (hypertension) Sleep apnea Hypersomnia Anxiety Surgical History Hx of gastric bypass Hx of total knee replacement Hx of knee surgery Hx of hernia repair History of cystoscopy Hx of laparoscopic gastric banding Hx of hysterectomy History of H/O gastric bypass Hx of endoscopy History of colonoscopy Family History Father Hx of colon cancer, stage IV Mother Family history of high blood pressure Social History Alcohol intake: never Comment: previously medicated Patient Tobacco Use Status: Never used Tobacco Substance Use Type: Marijuana Vital Signs 05/18/23 11:46 Height 5 ft 5.5 in Weight 157 lb 8 oz BMI 25.8 BP 100/60 Blood Pressure Location Rt brachial Position Sitting Pulse 98 Pulse Source Pulse Oximeter Pulse Oximetry (%) 97 Oxygen Delivery Method Room Air Physical Exam Vital Signs: Last Vital Signs Pulse 98 05/18/23 11:46 BP 100/60 05/18/23 11:46 Pulse Ox 97 05/18/23 11:46 Oxygen Delivery Method Room Air 05/18/23 11:46 BMI result Body Mass Index 25.8 Const General: comfortable and no acute distress Orientation/consciousness: patient oriented x3 HEENT Head: Yes normocephalic Mouth: Normal oral and palatal mucosa present Eyes EOM: EOMs intact bilaterally Neck Neck: Yes supple Resp Auscultation: clear to auscultation bilaterally Cardio Jugular venous distension: no JVD Rate: regular rate GI Palpation (GI): Soft to palpation Auscultation: normal bowel sounds General: Yes no CVA tenderness Back/Spine/Pelvis Back: no CVA tenderness Skin General skin exam: no rashes or lesions noted Neuro General: patient oriented x3 and moves all extremities Extrem General: Yes no pedal edema Assessment & Plan Assessment & Plan (1) HTN (hypertension): Code(s): I10 - Essential (primary) hypertension Qualifiers: Hypertension type: primary hypertension Qualified Code(s): I10 - Essential (primary) hypertension Plan Her renal functions are normal. She had renal ultrasound which was normal. She has not known to have blood or protein in the urine. She is known to have interstitial cystitis for which she is closely followed up by her urologist. She avoids nonsteroidal anti-inflammatories .She is on amlodipine and benazepril. Her serum potassium is normal. I did not make any medication changes today but reassured her. I ordered repeat renal function. I answered all questions. Follow-up appointment given. Orders: Orders Creatinine 05/18/23 I10 - Essential (primary) hypertension Blood Urea Nitrogen 05/18/23 I10 - Essential (primary) hypertension Electrolytes 05/18/23 I10 - Essential (primary) hypertension Coding Level of Care Code New Pt Level 4 (09294) Diagnoses Primary hypertension I10 Hypertension type: primary hypertension Results Reviewed Nephrology Results: Renal US 04/19/23
[2023-05-18 11:46] VITALS: BP 100/60; PULSE 98; O2SAT 97; BMI 25.8
== END 2023-05-18 16:46 | disposition home or self-care (01) ==
PROVIDERS: PCP Nurse Practitioner Family; Visit Provider Internal Medicine Nephrology
DX: I10 Essential (primary) hypertension (principal)
CPT/HCPCS: 99204

== ENCOUNTER → 2023-05-18 11:39 | Outpatient (BNVA) | payer MEDICARE, MEDICAID, SELFPAY | PROVIDERS: PCP Nurse Practitioner Family; Visit Provider Internal Medicine Nephrology | DX: I10 Essential (primary) hypertension (principal) | CPT/HCPCS: 99202 ==

== ENCOUNTER → 2023-05-20 11:11 | Outpatient (BNVA) | payer MEDICARE, MEDICAID, SELFPAY | PROVIDERS: PCP Nurse Practitioner Family; Visit Provider Urology | DX: N30.10 Interstitial cystitis (chronic) without hematuria (principal) | CPT/HCPCS: 51798 ==

== ENCOUNTER 2023-06-02 10:47 | Outpatient (AMB) | payer MEDICARE, MEDICAID, SELFPAY ==
--- NOTE | 2023-06-02 10:58 | A.OFFVIS_ITS ---
Intake Visit Reasons: Hydrodistention follow up Intake Note: Patient presents today for a follow-up on hydrodistention Meds- None Allergies to Antibiotic- Sulfa Blood Thinner- None Post Void Residual: 0ml Patient stated she has a pain during urine stream. She also stated she needs a prior authorization for Fesoterodine 8mg. 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 Required: No Accompanied by: Self / Same As Patient Allergies sertraline [From ZOLOFT] Allergy (Intermediate, Verified 06/02/23 11:06) prolonged QT interval Sulfa (Sulfonamide Antibiotics) [SULFA (SULFONAMIDE ANTIBIOTICS)] Allergy (Intermediate, Verified 06/02/23 11:06) RASH haloperidol [From Haldol] Allergy (Mild, Verified 06/02/23 11:06) unknown morphine [MORPHINE] Allergy (Mild, Verified 06/02/23 11:06) Rash NSAIDS (Non-Steroidal Anti-Inflamma [NSAIDS (NON-STEROIDAL ANTI-INFLAMMA] Adverse Reaction (Intermediate, Verified 06/02/23 11:06) STOMACH UPSET fentanyl patch Allergy (Severe, Uncoded 06/02/23 11:06) Unresponsive Medication List - Last Reconciled 06/02/23 by Kenneth Rodriguez MD albuterol sulfate 1 vial inhalation Q6H albuterol sulfate 90 mcg/actuation (Ventolin HFA) inhalation amitriptyline 25 mg PO BEDTIME 90 days amlodipine 5 mg PO BEDTIME amlodipine-benazepril 5-10 mg 1 cap PO .every morning amoxicillin mg PO PRN cetirizine 10 mg PO DAILY clonazepam 1 mg PO TID esomeprazole magnesium 40 mg PO DAILY famotidine 40 mg PO BEDTIME 90 days fesoterodine ER 8 mg PO DAILY 30 days fluticasone propionate 250 mcg/actuation inhalation gabapentin 300 mg PO BEDTIME 90 days hyoscyamine sulfate 0.125 mg PO BID-QID PRN mometasone 200 mcg/actuation (Asmanex HFA) 2 puffs inhalation BID montelukast 1 tab PO DAILY oxcarbazepine (Trileptal) 300 mg PO BID oxycodone 15 mg PO Q4H PRN pentoxifylline ER 400 mg PO TID phenazopyridine 100 mg PO Q8H 14 days quetiapine 1 tab PO BEDTIME PRN quetiapine 25 mg PO DAILY scopolamine base 1 patch transdermal Q3D sucralfate 1 g PO Q6H tadalafil 5 mg PO DAILY 90 days zolpidem 5 mg PO BEDTIME PRN HPI Comments Details: Eboni is a pleasant female. She is a patient of Dr. Nassar. She is seen for the following urologic conditions - interstitial cystitis - recurring UTI Hydrodistention performed Dr. Davis 05/07 Doing well Improved symptoms Trial of daily tadalafil to preserve bladder stability Six-month follow-up Interstitial cystitis Have used combination amitriptyline, gabapentin for frequent nocturia Post recent hydrodistention - hydrodistention performed in February 2019. persistent urgency frequency. States nocturia times 5-6. Trouble holding urine and accidents. Already on strict diet secondary to gastric sleeve surgery - prior medications include Elmiron, oxybutynin, tolterodine - current medications Toviaz - Last hydrodistention 10/03 PFSH Medical History Burn injury Arthritis Low back pain Elevated cholesterol SOB (shortness of breath) Asthma Numbness Mood disorder IBS (irritable bowel syndrome) OAB (overactive bladder) HTN (hypertension) Sleep apnea Hypersomnia Anxiety Surgical History Hx of gastric bypass Hx of total knee replacement Hx of knee surgery Hx of hernia repair History of cystoscopy Hx of laparoscopic gastric banding Hx of hysterectomy History of H/O gastric bypass Hx of endoscopy History of colonoscopy Family History Father Hx of colon cancer, stage IV Mother Family history of high blood pressure Social History Alcohol intake: never Comment: previously medicated Patient Tobacco Use Status: Never used Tobacco Substance Use Type: Marijuana Review of Systems Const Denies chills and Denies fever(s) Card Reports no additional complaints and Denies syncope Resp Denies cough GI Denies abdominal pain and Denies heartburn Reports as per HPI and Denies change in libido Neuro Denies syncope Psych Denies change in libido Endo Denies change in libido Physical Exam Const General: cooperative, healthy appearing, comfortable and no acute distress Orientation/consciousness: patient oriented x3 HEENT Face and sinus: Yes normal facial exam Mouth: moist mucous membranes Neck Neck: Yes normal visual inspection, Yes full ROM and Yes trachea midline Chest Chest palpation & inspection: normal inspection of the chest Resp Effort & Inspection: normal respiratory effort, able to speak in complete sente nces and no respiratory distress GI Inspection: Yes normal to inspection Back/Spine/Pelvis Cervical Spine: normal cervical lordosis Thoracic/Lumbar Spine: thoracic and lumbar spine normal to inspection Skin General skin exam: no rashes or lesions noted Neuro General: patient oriented x3, gait normal, tone normal and moves all extremities Extrem General: Yes normal to inspection and Yes capillary refill normal Office Procedures Post Void Residual Post Residual Void Post Void Residual (PVR): 0 [id number] Void Residual by ultrasound Results AMB Urinalysis, Automated UA Leukoctes 0 Magy/uL Last Edit by Angie Saba [facility] on 06/02/23 11 :19 UA Nitrite Negative Last Edit by Angie Saba [facility] on 06/02/23 11: 19 UA Urobilinogen 0.2 mg/dL Last Edit by Angie Sabasusan Saba [facility] on 4 11:19 UA Protein 15 mg/dL Last Edit by Angie Sabasusan Saba [facility] on 06/02/23 11:1 9 UA pH 6.0 Last Edit by Angie Saba [facility] on 06/02/23 11:19 UA Blood 0 Xu/uL Last Edit by Angie Sabasusan Saba [facility] on 06/02/23 11:19 UA Specific [place] 1.020 Last Edit by Angie Sabasusan Saba [facility] on 11:19 UA Ketone Negative Last Edit by Angie Sabasusan Saba [facility] on 06/02/23 11:1 9 UA Bilirubin 1 mg/dL Last Edit by Angie Sabasusan Saba [facility] on 06/02/23 11: 19 UA Glucose 0 mg/dL Last Edit by Angie Saba [facility] on 06/02/23 11:19 Results Reviewed Results Reviewed: Laboratory Last Values Urine pH (Auto) 6.0 06/02/23 11:01 Specific [place] (Auto) 1.020 06/02/23 11:01 Urine Protein (Auto) 15 mg/dL 06/02/23 11:01 Glucose (UA)(Auto) 0 mg/dL 06/02/23 11:01 Urine Ketones (Auto) Negative 06/02/23 11:01 Urine Blood (Auto) 0 Xu/uL 06/02/23 11:01 Urine Nitrite (Auto) Negative 06/02/23 11:01 Urine Bilirubin (Auto) 1 mg/dL 06/02/23 11:01 Urine Urobilinogen (Auto) 0.2 mg/dL 06/02/23 11:01 Leukocyte Esterase (Auto) 0 Magy/uL 06/02/23 11:01 Assessment & Plan Assessment & Plan (1) Interstitial cystitis: Code(s): N30.10 - Interstitial cystitis (chronic) without hematuria Category: Medical Plan Three-month follow-up Dr. Davis Orders: Orders AMB Urinalysis Automated 06/02/23 R33.9 - Retention of urine, unspecified AMB Post Void Residual by ultrasound 06/02/23 R33.9 - Retention of urine, unspecified Medications: New tadalafil 5 mg PO DAILY 90 tabs 0RF sexual activity 90 days N30.10 - Interstitial cystitis (chronic) without hematuria phenazopyridine 100 mg PO Q8H 42 tabs 0RF 14 days N30.10 - Interstitial cystitis (chronic) without hematuria, M54.50 - Low back pain, unspecified, R31.9 - Hematuria, unspecified Patient Instructions: Imaging studies, laboratory and physical exam results were discussed and reviewed in detail. No major barriers to patient understanding were identified. An opportunity to ask questions regarding the treatment plan was provided. All questions were answered. The patient expressed understanding and agreement with the above treatment plan. The patient is aware they should contact our office by phone for worsening of their current condition or the appearance of new urologic symptoms. Compliance is encouraged with any medications and followup testing that is ordered. It is a privilege to participate in the urologic care of your patient. If you have any questions or concerns regarding treatment for the above conditions, or other urologic issues, please do not hesitate to contact me. The office te alfredo contact is [phone]. This note is constructed using voice recognition software. While every effort has been made to ensure accuracy plug making operator errors may have been included. Yours sincerely, Dr Kenneth Rodriguez MD, DEE [facility] - Urology Providers of Expert, Compassionate Care for the Genitourinary System
== END 2023-06-02 11:30 | disposition home or self-care (01) ==
PROVIDERS: PCP Nurse Practitioner Family; Visit Provider Urology
DX: N30.10 Interstitial cystitis (chronic) without hematuria (principal)
CPT/HCPCS: 99214

== ENCOUNTER → 2023-06-02 10:47 | Outpatient (BNVA) | payer MEDICARE, MEDICAID, SELFPAY | PROVIDERS: PCP Nurse Practitioner Family; Visit Provider Urology | DX: N30.10 Interstitial cystitis (chronic) without hematuria (principal); R31.9 Hematuria, unspecified; M54.50 Low back pain, unspecified; Z79.899 Other long term (current) drug therapy | CPT/HCPCS: 51798; 81003; 99212 ==

== ENCOUNTER 2023-06-30 13:03 | Outpatient (REF) | payer MEDICARE, MEDICAID, SELFPAY ==
--- NOTE | ~2023-06-30 | XR_ITS ---
EXAMINATION: XR ABDOMEN KUB CLINICAL INDICATION: Epigastric pain COMPARISON: None available. TECHNIQUE: AP view of the abdomen. FINDINGS: The bowel gas pattern is normal with no evidence of ileus or obstruction. No excessive stool burden. Calcification the left of the pelvis likely represents a phlebolith. Surgical clips are seen in the left upper quadrant. No acute osseous abnormality. XR/XR KUB IMPRESSION: 1. No obstruction. 2. No excessive stool burden.
--- NOTE | ~2023-06-30 | XR_ITS ---
EXAMINATION: XR CHEST CLINICAL INFORMATION: Epigastric pain COMPARISON: None available. TECHNIQUE: 2 views of the chest were obtained. FINDINGS: No significant abnormality is noted involving the heart, lungs, mediastinum, bony thorax or soft tissues. Surgical clips are seen in the left upper quadrant. XR/XR chest 2V IMPRESSION: No acute cardiopulmonary disease.
[2023-06-30 14:50] LABS: Anion Gap 9 (12-20); Blood Urea Nitrogen 9 mg/dL (9-16); Carbon Dioxide 29 mmol/L (22-29); Chloride 105 mmol/L (96-108); Estimated Glomerular Filt Rate > 60; Potassium 3.7 mmol/L (3.3-5.1); Sodium 139 mmol/L (135-145)
== END 2023-06-30 13:04 | disposition home or self-care (01) ==
LOC: HO.LAB 13:03
PROVIDERS: Absent Provider Internal Medicine Nephrology; PCP Nurse Practitioner Family; Visit Provider Internal Medicine Gastroenterology
DX: R10.13 Epigastric pain (principal); I10 Essential (primary) hypertension; R11.2 Nausea with vomiting, unspecified
CPT/HCPCS: 36415; 71046; 74018; 80051; 82565; 84520

== ENCOUNTER 2023-07-15 08:53 | Outpatient (AMB) | payer MEDICARE, MEDICAID, SELFPAY ==
--- NOTE | 2023-07-15 08:53 | A.OFFVIS_ITS ---
Intake Visit Reasons: f/u requested per patient Intake Note: Eboni presents as a video call. CC: Was seen by Dr Kuhn but she does not want to follow up over there. States that this is just a follow up to go over recent surgery that she had. Allergies sertraline [From ZOLOFT] Allergy (Intermediate, Verified 07/15/23 08:53) prolonged QT interval Sulfa (Sulfonamide Antibiotics) [SULFA (SULFONAMIDE ANTIBIOTICS)] Allergy (Intermediate, Verified 07/15/23 08:53) RASH haloperidol [From Haldol] Allergy (Mild, Verified 07/15/23 08:53) unknown morphine [MORPHINE] Allergy (Mild, Verified 07/15/23 08:53) Rash NSAIDS (Non-Steroidal Anti-Inflamma [NSAIDS (NON-STEROIDAL ANTI-INFLAMMA] Adverse Reaction (Intermediate, Verified 07/15/23 08:53) STOMACH UPSET fentanyl patch Allergy (Severe, Uncoded 07/15/23 08:53) Unresponsive HPI HPI f/u requested per patient: Details: 47 yr old f being called for f/u RECAP: she has 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 sleep is poor, 4 hrs off and on she is on tramadol, having issues with constipation. once q4 days EGD 03/2018- gastritis also prior hx of kenalog trigger injection, hard to say if helped. she was given linaclotide to help with constipation GES---normal she was having ongoing issues with pain and was optimized on acid suppression with h2, PPI and carafate, was trying to get her movantik she represented 01/2019 to office with c/o worsening epigastric pain, nausea, and poor appetite with weight loss. using linaclotide helping her constipation, on fentanyl patch--goes every few days I offered her admission but she refused but she was dizzy so sent to ED, labs inc LFT, BMP, CBC were neg and CT was unremarkable without any acute pathology EGD then done 02/2019 with bx revealing chronic reflux damage and gastritis, looked like sandy but the stain was neg U/s 03/2019- liver normal, F0 on elastography, ?left kidney stone, Ba swallow 03/2019- patent GEJ, mild reflux pending urine 24 hr tests and metanephrines At f/u visit 05/2019--she was awaiting w/u for interstitial cystitis she was doing well with donantal and compazine capsule endoscopy was done and was neg was advised to try align, IBGARD, stress reduction She had cystoscopy with Dr Rodriguez for her IC she had surgery with removal of adhesions at [facility] 05/2021 and hiatal hernia repair she had ongoing problems and had EGD with gastrtiis, and bile reflux in stomach she is on trileptel for bipolar I ordered KUB with moderate stool burden Increased movantik to 25 mg but stopped it due to too much diarrhea she had kenalog injection to area of pain in abdomen, which she feels may have helped a little She had EGD/colon with Dr Allan 04/05 Marginal ulcer noted at [facility] colon was tortuous hyperplastic polyp removed with rando colo bx with crypt distortion REPT EGD: 08/24/22 Hx of gastric bypass Findings: Larynx:normal Esophagus: GE junction at 37 cm, diaphragm hiatus at 37 cm, no varices or esophagitis. Stomach pouch: x 4 retained sola noted with mild superficial inflammation and erosions noted around 3 of these. These were removed with cold forceps and bx taken from the anastomotic site and the pouch. Overall appearances appeared improved as compared to before. Jejunum: Normal Intervention: Biopsies as noted above, removal of retained soal Impression/Findings: retained sola mild inflammation around anstomosis PLAN: cont with PPI I again scoped her for reassessment 02/15/23-- improved compared to before with chronic active inflammation at anastomosis i added ursodiol INTERIM: she has been feeling better since recent lap surgery --I had given her z pack due to concern for post op infection appetite is fair she has some gas symptoms and swelling since surgery she tries to take trental, not been taking urosdiol stressed as daughter is preg and due overall she thinks she is getting stronger EXAM: GENERAL: The patient is well developed and nontoxic. undistressed Assessments 1/ Diarrhea, maybe related to panc insuff and gastric bypass as well as abdominal pain maybe related to vascular insuff and chronic inflammation at anastomosis, unlikely to have Intussusception PLAN: 1/ cont to take open capsule esomeprazole and cont carafate 2/ cont levsin 3/ can commence ursodiol 4/ get [facility] from [facility] Medical History Burn injury Arthritis Low back pain Elevated cholesterol SOB (shortness of breath) Asthma Numbness Mood disorder IBS (irritable bowel syndrome) OAB (overactive bladder) HTN (hypertension) Sleep apnea Hypersomnia Anxiety Surgical History Hx of gastric bypass Hx of total knee replacement Hx of knee surgery Hx of hernia repair History of cystoscopy Hx of laparoscopic gastric banding Hx of hysterectomy History of H/O gastric bypass Hx of endoscopy History of colonoscopy Family History Father Hx of colon cancer, stage IV Mother Family history of high blood pressure Social History Alcohol intake: never Comment: previously medicated Patient Tobacco Use Status: Never used Tobacco Substance Use Type: Marijuana Telehealth Telehealth Telehealth Platform: [employer] Location of provider rendering services: practice address Location of patient: address on file Patient Identification confirmed using: Name, : Yes Telehealth method: video Patient verbally consented to treatment: Yes Patient verbally consented to billing insurance company: Yes Patient informed of any privacy concerns related to visit: Yes Minutes spent on Phone/Video with Pt.: 9 Assessment & Plan Assessment & Plan (1) Marginal ulcer: Code(s): K28.9 - Gastrojejunal ulcer, unspecified as acute or chronic, without hemorrhage or perforation Category: Medical Plan: see above Coding Level of Care Code Tele Est Pt Level 3 (89762) Diagnoses Marginal ulcer K28.9
== END 2023-07-15 11:01 | disposition home or self-care (01) ==
LOC: HO.HGI 08:53
PROVIDERS: PCP Nurse Practitioner Family; Visit Provider Internal Medicine Gastroenterology
DX: K28.9 Gastrojejunal ulcer, unspecified as acute or chronic, without hemorrhage or perforation (principal)
CPT/HCPCS: 99212

== ENCOUNTER → 2023-07-15 08:53 | Outpatient (BNVA) | payer MEDICARE, MEDICAID, SELFPAY | PROVIDERS: PCP Nurse Practitioner Family; Visit Provider Internal Medicine Gastroenterology ==

== ENCOUNTER 2023-08-12 09:02 | Outpatient (AMB) | payer MEDICARE, MEDICAID, SELFPAY ==
--- NOTE | 2023-08-12 09:03 | MHC.OFFVIS ---
Intake Visit Reasons: follow up Intake Note: Patient is Present for Telephone Follow Up For Urology Med: Fesoterodine, Tadalafil Antibiotic Allergy:Sulfa Antibiotics Blood Thinner: None Allergies sertraline [From ZOLOFT] Allergy (Intermediate, Verified 10/26/23 11:57) prolonged QT interval Sulfa (Sulfonamide Antibiotics) [SULFA (SULFONAMIDE ANTIBIOTICS)] Allergy (Intermediate, Verified 10/26/23 11:57) RASH haloperidol [From Haldol] Allergy (Mild, Verified 10/26/23 11:57) unknown morphine [MORPHINE] Allergy (Mild, Verified 10/26/23 11:57) Rash NSAIDS (Non-Steroidal Anti-Inflamma [NSAIDS (NON-STEROIDAL ANTI-INFLAMMA] Adverse Reaction (Intermediate, Verified 10/26/23 11:57) STOMACH UPSET fentanyl patch Allergy (Severe, Uncoded 10/21/23 09:27) Unresponsive Medication List - Last Reconciled 08/12/23 by Kenneth Rodriguez MD albuterol sulfate 1 vial inhalation Q6H albuterol sulfate 90 mcg/actuation (Ventolin HFA) inhalation amitriptyline 25 mg PO BEDTIME 90 days amlodipine 5 mg PO BEDTIME amlodipine-benazepril 5-10 mg 1 cap PO .every morning amoxicillin mg PO PRN azithromycin 500 mg PO DAILY 7 days buspirone 10 mg PO BID cetirizine 10 mg PO DAILY clonazepam mg PO esomeprazole magnesium 40 mg PO DAILY famotidine 40 mg PO BEDTIME 90 days fesoterodine ER 8 mg PO DAILY 90 days fluticasone propionate 250 mcg/actuation inhalation gabapentin 300 mg PO BEDTIME 90 days hyoscyamine sulfate 0.125 mg PO BID-QID PRN mometasone 200 mcg/actuation (Asmanex HFA) 2 puffs inhalation BID montelukast 1 tab PO DAILY oxcarbazepine (Trileptal) 300 mg PO BID oxycodone 15 mg PO Q4H PRN pentoxifylline ER 400 mg PO TID phenazopyridine 100 mg PO Q8H 14 days quetiapine 1 tab PO BEDTIME PRN quetiapine ER 50 mg PO BEDTIME scopolamine base 1 patch transdermal Q3D sucralfate 1 g PO Q6H tadalafil 5 mg PO DAILY 90 days thiamine HCl (vitamin B1) (Vitamin B-1) 100 mg PO DAILY zolpidem 5 mg PO BEDTIME PRN HPI Comments Details: Eboni is a pleasant female. She is a patient of Dr. Nassar. She is seen for the following urologic conditions - interstitial cystitis - recurring UTI Telemedicine Evaluation 15 min Consultation [employer] Jeramy Video attempted Hydrodistention performed Dr. Davis 05/07 Nocturia 2-4x Nephrology Interstitial cystitis Have used combination amitriptyline, gabapentin for frequent nocturia Post recent hydrodistention - hydrodistention performed in February 2019. persistent urgency frequency. States nocturia times 6-8. Trouble holding urine and accidents. 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 with cyclic nausea PFSH Medical History Burn injury Arthritis Low back pain Elevated cholesterol SOB (shortness of breath) Asthma Numbness Mood disorder IBS (irritable bowel syndrome) OAB (overactive bladder) HTN (hypertension) Sleep apnea Hypersomnia Anxiety Surgical History Hx of gastric bypass Hx of total knee replacement Hx of knee surgery Hx of hernia repair History of cystoscopy Hx of laparoscopic gastric banding Hx of hysterectomy History of H/O gastric bypass Hx of endoscopy History of colonoscopy Family History Father Hx of colon cancer, stage IV Mother Family history of high blood pressure Social History Alcohol intake: never Comment: previously medicated Patient Tobacco Use Status: Never used Tobacco Substance Use Type: Marijuana Review of Systems Const All systems reviewed & are unremarkable except as noted in HPI and below Reports no additional complaints Resp Reports no additional complaints GI Reports no additional complaints Reports as per HPI Musc Reports no additional complaints Physical Exam Telemedicine evaluation Appropriate responses Regular breathing rate and rhythm HEENT Head: Yes normal to inspection Ears: hearing grossly normal bilaterally Eyes General: appearance normal, both eyes and all related structures Neck Neck: Yes normal visual inspection Chest Chest palpation & inspection: normal inspection of the chest Resp Effort & Inspection: normal respiratory effort and able to speak in complete sentences Telehealth Telehealth Location of provider rendering services: practice address Location of patient: address on file Patient Identification confirmed using: Name, : Yes Telehealth method: voice only Patient verbally consented to treatment: Yes Patient verbally consented to billing insurance company: Yes Patient informed of any privacy concerns related to visit: Yes Assessment & Plan Assessment & Plan (1) Pelvic pain in female: Comment: 12/31 right pelvic side wall, bilateral anterior Code(s): R10.2 - Pelvic and perineal pain Category: Medical (2) Interstitial cystitis: Code(s): N30.10 - Interstitial cystitis (chronic) without hematuria Category: Medical Plan Three-month follow-up Medications: Changed From fesoterodine ER 8 mg PO DAILY 30 days 30 tabs 1RF N30.10 - Interstitial cystitis (chronic) without hematuria To fesoterodine ER 8 mg PO DAILY 90 tabs 1RF 90 days N30.10 - Interstitial cystitis (chronic) without hematuria From amitriptyline 25 mg PO BEDTIME 90 days 90 tabs 1RF N30.10 - Interstitial cystitis (chronic) without hematuria To amitriptyline 50 mg PO BEDTIME 90 tabs 0RF 90 days N30.10 - Interstitial cystitis (chronic) without hematuria Patient Instructions: Imaging studies, laboratory and physical exam results were discussed and reviewed in detail. No major barriers to patient understanding were identified. An opportunity to ask questions regarding the treatment plan was provided. All questions were answered. The patient expressed understanding and agreement with the above treatment plan. The patient is aware they should contact our office by phone for worsening of their current condition or the appearance of new urologic symptoms. Compliance is encouraged with any medications and followup testing that is ordered. It is a privilege to participate in the urologic care of your patient. If you have any questions or concerns regarding treatment for the above conditions, or other urologic issues, please do not hesitate to contact me. The office telephone contact is [phone]. This note is constructed using voice recognition software. While every effort has been made to ensure accuracy application integration specialist errors may have been included. Yours sincerely, Dr Kenneth Rodriguez MD, DEE [facility] - Urology Providers of Expert, Compassionate Care for the Genitourinary System Coding Level of Care Code Tele Est Pt Level 3 (20389) Diagnoses Pelvic pain in female R10.2 Interstitial cystitis N30.10
== END 2023-08-12 10:14 | disposition home or self-care (01) ==
LOC: HO.HUSH 09:02
PROVIDERS: PCP Nurse Practitioner Family; Visit Provider Urology
DX: R10.2 Pelvic and perineal pain (principal); N30.10 Interstitial cystitis (chronic) without hematuria
CPT/HCPCS: 99442

== ENCOUNTER → 2023-08-12 09:02 | Outpatient (BNVA) | payer MEDICARE, MEDICAID, SELFPAY | PROVIDERS: PCP Nurse Practitioner Family; Visit Provider Urology ==

== ENCOUNTER 2023-08-16 05:52 | Day surgery (SDC) | payer MEDICARE, MEDICAID, SELFPAY ==
--- NOTE | 2023-08-15 14:52 | P.CONAN_ITS ---
Documented by User: Cecilia Wolff NP 08/24/23 14:08 HPI - Anesthesia Eval Consult details Narrative: 47yo F for Cystoscopy Hydrodistention of Bladder s/p sa,e 04/2023 with GA-LMA 4 PMFSH Active Problems Active Problems: All Active Problems HTN (hypertension) (Acute) Diarrhea (Acute) Marginal ulcer (Acute) Malnutrition (Acute) Chronic UTI (urinary tract infection) (Acute) Lumbar spondylosis (Acute) Right knee pain (Acute) Knee pain (Acute) Visceral abdominal pain (Acute) Constipation (Acute) Therapeutic opioid-induced constipation (OIC) (Acute) Pelvic pain in female (Acute) Nocturia more than twice per night (Acute) Interstitial cystitis (Acute) Dysuria (Acute) Epigastric abdominal pain (Acute) Diarrhea associated with pseudomembranous colitis (Acute) Nausea & vomiting (Acute) Past Medical History Medical History Burn injury Arthritis Low back pain Elevated cholesterol SOB (shortness of breath) Asthma Numbness Mood disorder IBS (irritable bowel syndrome) OAB (overactive bladder) HTN (hypertension) Sleep apnea Hypersomnia Anxiety Family History Family History Father Hx of colon cancer, stage IV Mother Family history of high blood pressure Family history of problems with anesthesia: No Surgical History Surgical History Hx of gastric bypass Hx of total knee replacement Hx of knee surgery Hx of hernia repair History of cystoscopy Hx of laparoscopic gastric banding Hx of hysterectomy History of H/O gastric bypass Hx of endoscopy History of colonoscopy History of Problems with Anesthesia: No Social History Social History Alcohol intake: never Comment: previously medicated Patient Tobacco Use Status: Never used Tobacco Substance Use Type: Marijuana Meds Allergies Allergy/AdvReac Type Severity Reaction Status Date / Time sertraline [From ZOLOFT] Allergy Intermediate prolonged Verified 08/16/23 06:30 QT interval Sulfa (Sulfonamide Allergy Intermediate RASH Verified 08/16/23 06:30 Antibiotics) [SULFA (SULFONAMIDE ANTIBIOTICS)] haloperidol [From Haldol] Allergy Mild unknown Verified 08/16/23 06:30 morphine [MORPHINE] Allergy Mild Rash Verified 08/16/23 06:30 NSAIDS (Non-Steroidal AdvReac Intermediate STOMACH Verified 08/16/23 06:30 Anti-Inflamma UPSET [NSAIDS (NON-STEROIDAL ANTI-INFLAMMA] fentanyl patch Allergy Severe Unresponsiv Uncoded 08/16/23 06:30 e Home Medications ?Medication ?Instructions ?Recorded ?Confirmed ?Last Taken ?Type albuterol sulfate 2.5 mg/3 mL 1 vial inhalation Q6H 10/07/20 08/12/23 10/04/22 History (0.083 %) solution for nebulization montelukast 10 mg tablet 1 tab PO DAILY 10/07/20 08/12/23 Unknown History quetiapine 200 mg tablet 1 tab PO BEDTIME PRN insomnia 10/07/20 08/12/23 08/23/22 History zolpidem 5 mg tablet 5 mg PO BEDTIME PRN Insomnia 09/25/21 08/12/23 08/23/22 History scopolamine base 1 mg over 3 days 1 patch transdermal Q3D 01/25/22 08/12/23 08/21/22 History transdermal patch oxcarbazepine 300 mg tablet 300 mg PO BID 08/24/22 08/16/23 08/16/23 History (Trileptal) albuterol sulfate 90 mcg/actuation inhalation 11/26/22 08/12/23 Unknown History aerosol inhaler (Ventolin HFA) esomeprazole magnesium 40 mg 40 mg PO DAILY 11/26/22 08/12/23 Unknown History capsule,delayed release cetirizine 10 mg tablet 10 mg PO DAILY 03/04/23 08/12/23 Unknown History mometasone 200 mcg/actuation HFA 2 puff inhalation BID 03/04/23 08/12/23 Unknown History aerosol inhaler (Asmanex HFA) amlodipine 5 mg tablet 5 mg PO BEDTIME 05/18/23 08/12/23 Unknown History amlodipine 5 mg-benazepril 10 mg 1 cap PO .every morning 05/18/23 08/12/23 Unknown History capsule amoxicillin 500 mg tablet mg PO PRN 05/18/23 08/12/23 Unknown History fluticasone propionate 250 inhalation 05/18/23 08/12/23 Unknown History mcg/actuation blister powder for inhalation buspirone 10 mg tablet 10 mg PO BID 07/15/23 08/12/23 Unknown History clonazepam 2 mg tablet 2 mg PO NEEDED anxiety 07/15/23 08/16/23 08/16/23 History quetiapine 50 mg tablet,extended 50 mg PO BEDTIME 07/15/23 08/12/23 Unknown History release 24 hr thiamine HCl (vitamin B1) 100 mg 100 mg PO DAILY 07/15/23 08/12/23 Unknown History tablet (Vitamin B-1) Assessment and Plan Assessment Anesthesia Assessment: Chart Reviewed Final Anesthetic Review Family History of Problems with Anesthesia: No History of Problems with Anesthesia: No Documented by User: Martinez Hoff MD 08/25/23 17:02 [facility] Past Medical History Medical History Burn injury Arthritis Low back pain Elevated cholesterol SOB (shortness of breath) Asthma Numbness Mood disorder IBS (irritable bowel syndrome) OAB (overactive bladder) HTN (hypertension) Sleep apnea Hypersomnia Anxiety Family History Family History Father Hx of colon cancer, stage IV Mother Family history of high blood pressure Surgical History Surgical History Hx of gastric bypass Hx of total knee replacement Hx of knee surgery Hx of hernia repair History of cystoscopy Hx of laparoscopic gastric banding Hx of hysterectomy History of H/O gastric bypass Hx of endoscopy History of colonoscopy Social History Social History Alcohol intake: never Comment: previously medicated Patient Tobacco Use Status: Never used Tobacco Substance Use Type: Marijuana Meds Allergies Allergy/AdvReac Type Severity Reaction Status Date / Time sertraline [From ZOLOFT] Allergy Intermediate prolonged Verified 08/16/23 06:30 QT interval Sulfa (Sulfonamide Allergy Intermediate RASH Verified 08/16/23 06:30 Antibiotics) [SULFA (SULFONAMIDE ANTIBIOTICS)] haloperidol [From Haldol] Allergy Mild unknown Verified 08/16/23 06:30 morphine [MORPHINE] Allergy Mild Rash Verified 08/16/23 06:30 NSAIDS (Non-Steroidal AdvReac Intermediate STOMACH Verified 08/16/23 06:30 Anti-Inflamma UPSET [NSAIDS (NON-STEROIDAL ANTI-INFLAMMA] fentanyl patch Allergy Severe Unresponsiv Uncoded 08/16/23 06:30 e Home Medications ?Medication ?Instructions ?Recorded ?Confirmed ?Last Taken ?Type albuterol sulfate 2.5 mg/3 mL 1 vial inhalation Q6H 10/07/20 08/12/23 10/04/22 History (0.083 %) solution for nebulization montelukast 10 mg tablet 1 tab PO DAILY 10/07/20 08/12/23 Unknown History quetiapine 200 mg tablet 1 tab PO BEDTIME PRN insomnia 10/07/20 08/12/23 08/23/22 History zolpidem 5 mg tablet 5 mg PO BEDTIME PRN Insomnia 09/25/21 08/12/23 08/23/22 History scopolamine base 1 mg over 3 days 1 patch transdermal Q3D 01/25/22 08/12/23 08/21/22 History transdermal patch oxcarbazepine 300 mg tablet 300 mg PO BID 08/24/22 08/16/23 08/16/23 History (Trileptal) albuterol sulfate 90 mcg/actuation inhalation 11/26/22 08/12/23 Unknown History aerosol inhaler (Ventolin HFA) esomeprazole magnesium 40 mg 40 mg PO DAILY 11/26/22 08/12/23 Unknown History capsule,delayed release cetirizine 10 mg tablet 10 mg PO DAILY 03/04/23 08/12/23 Unknown History mometasone 200 mcg/actuation HFA 2 puff inhalation BID 03/04/23 08/12/23 Unknown History aerosol inhaler (Asmanex HFA) amlodipine 5 mg tablet 5 mg PO BEDTIME 05/18/23 08/12/23 Unknown History amlodipine 5 mg-benazepril 10 mg 1 cap PO .every morning 05/18/23 08/12/23 Unknown History capsule amoxicillin 500 mg tablet mg PO PRN 05/18/23 08/12/23 Unknown History fluticasone propionate 250 inhalation 05/18/23 08/12/23 Unknown History mcg/actuation blister powder for inhalation buspirone 10 mg tablet 10 mg PO BID 07/15/23 08/12/23 Unknown History clonazepam 2 mg tablet 2 mg PO NEEDED anxiety 07/15/23 08/16/23 08/16/23 History quetiapine 50 mg tablet,extended 50 mg PO BEDTIME 07/15/23 08/12/23 Unknown History release 24 hr thiamine HCl (vitamin B1) 100 mg 100 mg PO DAILY 07/15/23 08/12/23 Unknown History tablet (Vitamin B-1) Assessment and Plan Assessment Anesthesia Assessment: Anesthesia Plan Discussed Final Anesthetic Review NPO: No ASA Class: III Final Preanesthetic Review: No Changes in Pt Med Stat, Meds/Allgs Chart Reviewed, Consent Obtained/Reviewed and Anes Risks/Benef Reviewed Patient Risk: Intermediate Procedure Risk: Low Anesthetic Plan Anesthetic Plan: GA Disposition: Standard PACU
[2023-08-16 06:00] VITALS: BMI 26.6
[2023-08-16 06:20] VITALS: BP 101/73; PULSE 72; RESP 16; TEMP 36.7; O2SAT 100
[2023-08-16] MEDS: Lactated Ringers 1,000 ML 100 ML IVCONT (06:26)
--- NOTE | 2023-08-16 07:13 | MHC.SHP ---
Pre-Procedural Eval Section A - 24 Hr Update-Section A only Date of Service: 08/16/23 The patient is an INPATIENT: No The patient has been examined within 24 hours of the surgical procedure. The History & Physical has been completed within 30 days and I have reviewed it.: Yes Section B - Complete if H&P > 30 days Chief Complaint: Interstitial cystitis (chronic) without hematuria Allergies: Allergies Allergy/AdvReac Type Severity Reaction Status Date / Time sertraline [From ZOLOFT] Allergy Intermediate prolonged Verified 08/16/23 06:30 QT interval Sulfa (Sulfonamide Allergy Intermediate RASH Verified 08/16/23 06:30 Antibiotics) [SULFA (SULFONAMIDE ANTIBIOTICS)] haloperidol [From Haldol] Allergy Mild unknown Verified 08/16/23 06:30 morphine [MORPHINE] Allergy Mild Rash Verified 08/16/23 06:30 NSAIDS (Non-Steroidal AdvReac Intermediate STOMACH Verified 08/16/23 06:30 Anti-Inflamma UPSET [NSAIDS (NON-STEROIDAL ANTI-INFLAMMA] fentanyl patch Allergy Severe Unresponsiv Uncoded 08/16/23 06:30 e Plan Diagnosis/Plan: Unchanged I have reviewed the history and physical and performed a pertinent physical examination on my patient. No changes have occurred unless specified. Cystoscopy Hydrodistention. Discussed risks to include but not limited to, blood in the urine, burning with urination, urgency. Time Spent With Patient Time: Total time managing care of this patient today ____ minutes.
--- NOTE | 2023-08-16 08:18 | W.PM.OPN ---
Operative Note Operative Note Date of Service: 08/16/23 Narrative: PREOP DIAGNOSIS: Interstitial cystitis, bladder pain, microscopic hematuria POSTOP DIAGNOSIS: Interstitial cystitis, bladder pain, microscopic hematuria, PROCEDURE: CYSTOSCOPY HYDRODISTENTION, BLADDER INSTILLATION Anethesia: General Surgeon: Dr. Jeff Rodriges Indications: Chronic interstitial cystitis with bladder pain syndrome Details of procedure: The patient was brought into the operating room placed on the OR table in supine position. 2 g of Ancef IV. General anesthesia was administered. The patient was repositioned into lithotomy position, prepped and draped in the usual sterile fashion. Time-out was done per protocol. A 22 fr cystoscope was placed transurethrally into the bladder. Urine was drained from the bladder measuring 90 mL. Urine sent for culture. The right and left ureteral orifices were visualized. The entire bladder was visualized. There were no suspicious bladder lesions seen. The bladder was filled with sterile water at 80 cm of water pressure under gravity. The bladder was distended for 3 minutes. Bladder capacity measured 1000 mL. Revisualization of the bladder, noted mild to moderate glomerulations. No Benjamín ulcerations. The bladder was refilled with sterile water again at 80 cm of water pressure under gravity. The bladder was distended for 3 minutes. The fluid was drained from the bladder and measured 1000 mL. The cystoscope was removed. 2% lidocaine urojet was passed transurethrally, Solution of (1% lidocaine plain, 15 mL, 0.5 % Marcaine 15 mL mixed with 30, 000 units of heparin concentration 5000 units per mL total of 6 mL hepaine) instilled transurethrally into the bladder. The patient was brought out of anesthesia and taken to recovery in stable condition. Complications: None Drains: none
[2023-08-16 08:20] VITALS: BP 155/97; PULSE 77; RESP 16; TEMP 36.3; O2SAT 96
[2023-08-16 08:35] VITALS: BP 155/99; PULSE 89; RESP 18; O2SAT 99
[2023-08-16 08:50] VITALS: BP 141/97; PULSE 82; RESP 18; TEMP 36.3; O2SAT 97
[2023-08-16] MEDS: Phenazopyridine HCL 200 MG TABLET PO (08:51)
[2023-08-16] MEDS: hydrOXYzine HCL 25 MG TABLET PO (08:51)
[2023-08-16] MEDS: oxyCODONE HCl Immed Release 5 MG TABLET PO (08:59)
== END 2023-08-16 09:50 | disposition home or self-care (01) ==
PROVIDERS: PCP Nurse Practitioner Family; Visit Provider Urology
PROC: 0T7B7ZZ Dilation of Bladder, Via Natural or Artificial Opening (ICD-10-PCS; CPT 52260; principal; 2023-08-16 07:30)
DX: N30.11 Interstitial cystitis (chronic) with hematuria (principal); I10 Essential (primary) hypertension; J45.909 Unspecified asthma, uncomplicated; Z79.899 Other long term (current) drug therapy; Z88.2 Allergy status to sulfonamides; Z88.5 Allergy status to narcotic agent; Z88.8 Allergy status to other drugs, medicaments and biological substances
CPT/HCPCS: 52260; 51700; 87086; J0690; J1100; J1644; J2405; J2704; J2795; J3010

== ENCOUNTER → 2023-08-16 05:52 | Outpatient (BNV) | payer MEDICARE, MEDICAID, SELFPAY | PROVIDERS: PCP Nurse Practitioner Family; Visit Provider Urology | DX: N30.10 Interstitial cystitis (chronic) without hematuria (principal) | CPT/HCPCS: 52260; 52287 ==

== ENCOUNTER 2023-09-12 11:13 | Outpatient (AMB) | payer MEDICARE, MEDICAID, SELFPAY ==
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
--- OUTSIDE RECORDS SUMMARY | 2023-09-12 11:18 | XMS_ITS | Continuity of Care Document ---
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 Start Date: 05/12/22 Status: Ordered albuterol CFC free 90 mcg/inh inhalation aerosol 2, puffs, Inhalation, 4 times a day, PRN, Dispense brand as required by insurance, # 18 Gm, [id number], Tot. Refills 11, Maintenance, 05/12/22 11:38:00 EST, Aerosol, Route to Pharmacy Electronically, [id number], [facility]... Start Date: 05/12/22 Status: Ordered albuterol-ipratropium 3 mg-0.5 mg/3 ml inhalation solution 1 vials, Inhalation, 4 times a day, # 180 mL, 11 Refills, Maintenance, 05/12/22 11:38:00 EST, [facility] #[id number], 15, 1 vials Inhalation 4 times a day, 168, cm, 05/12/22 11:30:00 EST, Height, 85, kg, 05/10/22 9:23:00 EST, Dry Weight Start Date: 05/12/22 Status: Ordered Ambien 5 mg oral tablet [...] Status: Ordered amLODIPine 5 mg oral tablet 5 mg, 1, tablet, By Mouth, Daily at bedtime, Refills 0, Maintenance, 05/28/22 8:26:00 EDT, Partial fill upon patient request if the prescription is for a schedule II opioid drug. Start Date: 05/28/22 Status: Ordered amlodipine-benazepril 5 mg-10 mg oral capsule 1 capsule, By Mouth, Daily, To replace prior prescription (amlodipine)., # 90 capsule, 11 Refills, Maintenance, 03/01/22 16:04:00 EST, Capsule, [id number], Partial fill upon patient request if the prescription is for a schedule II opi... Start Date: 03/01/22 Stop Date: 02/13/25 Status: Ordered apixaban 2.5 mg oral tablet 1 tablet = 2.5 mg, By Mouth, 2 times a day, # 60 tablet, 0 Refills, Maintenance, 05/28/22 8:20:00 EDT, Tablet, [facility], Partial fill upon patient request if the prescription is for aschedule II opioid drug., 165, cm, 05/28/22 6:49:00... Start Date: 05/28/22 Stop Date: 06/27/22 Status: Ordered Bedside Commode See Instructions, # [...] opioid drug. Start Date: 05/03/22 Status: Ordered busPIRone 10 mg oral tablet 7.5 mg, 0.75, tablet, By Mouth, Daily at bedtime, Refills 0, Maintenance, 05/28/22 8:26:00 EDT, Partial fill upon patient request if the prescription is for a schedule II opioid drug. Start Date: 05/28/22 Status: Ordered cetirizine 10 mg oral tablet 1 tablet, By Mouth, Daily, # 30 tablet, 11 Refills, Maintenance, 09/25/21 11:17:00 EDT, [facility] #[id number], 165, cm, 09/25/21 11:04:00 EDT, Height, 96, kg, 07/13/21 10:52:00 EDT, Dry Weight Start Date: 09/25/21 Status: Ordered clonazePAM 0.5 mg oral tablet 1 tablet = 0.5 mg, By Mouth, 3 times a day, PRN Anxiety, to be filled on or after 03/07/17 use sparingly; for pcp=julianne Nassar checked, # 90 tablet, 0 Refills, Maintenance, 03/02/17 12:54:41 Start Date: 03/02/17 Stop Date: 04/01/17 Status: Ordered Colace Capsule 100 mg, 1, [...] opioid drug. Start Date: 07/10/21 Status: Ordered EpiPen 2-Chandrakant 0.3 mg injectable kit = 0.3 mg, Intramuscular, Once, May use generic, # 1 each, 0 Refills, Soft Stop, 10/25/17 17:42:51 EDT Start Date: 10/25/17 Status: Ordered famotidine 20 mg oral tablet [...] each, 11 Refills, Maintenance, 09/25/21 11:17:00 EDT, [place], [facility] #[id number], 1 sprays Nares, Both 2 times a day,x30 days, 165, cm, 09/25/21 11:04:00 EDT, Height, 96, kg, 07/13/21 10:52:00 EDT, Dry... Start Date: 09/25/21 Stop Date: 09/20/22 Status: Ordered Flovent HFA 220 mcg/inh inhalation aerosol 2 puffs, Inhalation, 2 times a day, # 12 Gm, 11 Refills, Maintenance, 05/19/22 13:39:00 EST, Aerosol, [facility] #[id number], Partial fill upon patient request if the prescription is for a schedule II opioid drug., 168, cm, 05/12/22 11:30:00 EST,... Start Date: 05/19/22 Status: Ordered fluocinonide 0.05% topical cream 1 applicator, Topically, 3 times a day, # 30 Gm, 3 Refills, Maintenance, 06/02/17 13:39:56, 1 applicator Topically 3 times a day Start Date: 06/02/17 Status: Ordered gabapentin 300 mg oral capsule [...] EDT, Supply Start Date: 11/01/19 Status: Ordered lisinopril 10 mg oral tablet 10 mg, 1, tablet, By Mouth, Daily, Refills 0, Maintenance, 05/28/22 8:29:00 EDT, Partial fill upon patient request if the prescription is for a schedule II opioid drug. Start Date: 05/28/22 Status: Ordered MiraLax Powder 1 pack/packet = 17 Gm, By Mouth, Daily, PRN Constipation, 0 Refills, Maintenance, 05/28/22 8:29:00 EDT, Powder, Partial fill upon patient request if the prescription is for a schedule II opioid drug. Start Date: 05/28/22 Status: Ordered mupirocin 2% topical ointment 1 application, Topically, 3 times a day, # 30 Gm, 2 Refills, Acute 03/13/23 15:24:00 EST, 09/01/22 15:23:00 EDT, Ointment, [facility] #[id number], Partial fill upon patient request if the prescription is for a schedule II opioid drug., 1 applicat... Start Date: 09/01/22 Stop Date: 03/13/23 Status: Ordered Nebulizer/Compressor See Instructions, # 1 each, Refills 11, Tot. Refills 11, Maintenance, please dispense nebulizer supplies to be used with albuterol Dx J45.909, 10/22/20 9:02:00 EDT, Compound Start Date: 10/22/20 Status: Ordered Nebulizer/Compressor See Instructions, # 1 each, Maintenance, please dispense one nebulizer to be used with albuterol DxJ45.909, 05/07/19 10:44:00 EST, Compound Start Date: 05/07/19 Status: Ordered ondansetron 8 mg oral tablet 1 tablet = 8 mg, By Mouth, Every 8 hours, PRN Nausea & Vomiting, # 30 tablet, 4 Refills, Maintenance, 01/24/18 13:29:03 EST, Tablet Start Date: 01/24/18 Status: Ordered OXcarbazepine 300 mg oral tablet [...] pain; may fill less; May fill on/after 10/07/2022, # 180 tablet, 0 Refills, Maintenance, 10/01/22 15:11:00 EDT, Tablet, [facility]... Start Date: 10/01/22 Stop Date: 10/31/22 Status: Ordered oxyCODONE 15 mg oral tablet 1 tablet = 15 mg, By Mouth, Every 4 hours, PRN as needed for pain, Pt on narcotic contract; MassPatchecked; Dx chronic low back pain; may fill less; May fill on/after 10/12/2022; short RX due to supply at pharmacy, # 15 tablet, 0 Refills, Maintenance,... Start Date: 10/12/22 Stop Date: 10/16/22 Status: Ordered Prevacid 30 mg oral enteric coated capsule 1 capsule = 30 mg, By Mouth, Daily, # 30 capsule, 4 Refills, Maintenance, 04/25/18 12:04:00 EST Start Date: 04/25/18 Stop Date: 09/22/18 Status: Ordered promethazine 25 mg oral tablet 1 tablet = 25 mg, By Mouth, Every 4 hours, PRN for nausea/vomiting, # 60 tablet, 11 Refills, Maintenance, 01/12/19 9:54:33 EDT, Tablet Start Date: 01/12/19 Status: Ordered Quetiapine 200 mg, By Mouth, [...] tablet, By Mouth, Daily in PM, # 30 tablet, Refills 11, Tot. Refills 11, Maintenance, 05/12/22 11:38:00 EST, Route to Pharmacy Electronically, [facility] #[id number], 168, cm, 05/12/2310:30:00 EST, Height, 85, kg, 05/10/22 9:23:00 EST,... Start Date: 05/12/22 Status: Ordered Transfer Bench See Instructions, # 1 each, Maintenance, Dx M48, M54.16, M54.5, 03/20/18 13:26:26 EST, Compound Start Date: 03/20/18 Status: Ordered Walker See Instructions, # 1 each, Maintenance, Please dispense one front wheeled walker Dx M48, M54.16, M54.5, 03/20/18 13:25:58 EST, Compound Start Date: 03/20/18 Status: Ordered Wellbutrin XL 300 mg/24 hours oral tablet, extended release 1 tablet = 300 mg, By Mouth, Every 24 hours, 0 Refills, Maintenance, 04/07/17 13:08:22 EST Start Date: 04/07/17 Status: Ordered Wheelchair See Instructions, # 1 [...] cystitis Confirmed Active Chronic sinusitis Confirmed Active Discoloration of skin Confirmed Active [...] allergies Confirmed Active Nonallergic rhinitis Confirmed Active Obese class I Confirmed Active Obesity Confirmed Active Obstructive sleep apnea Confirmed Active Osteoarthritis of knee Confirmed Active Controlled substance agreement signed 04/14/2022 Confirmed Active Palpitation Confirmed Active COVID-19 virus detected Confirmed Active COVID-19 virus detected 2 Confirmed Active Allergic sinusitis 3 Confirmed Active Spinal stenosis Confirmed Active 1began in 3rd [facility] 10/21/2020 3allergy testing showed dust mites, mold, cats, dogs, maple, oak; starting immunotherapy 07/2015 Social History Social History Type Response Tobacco Use: MARIJUANA. Sex Patient Care team information Care Team Personnel Name: Tristin Hunt RN Position: S RN Member Role: Primary Care Nurse Name: Lisseth Nassar NP Position: [facility] PCO Associate Professional Member Role: PCP Address: Address: [address] [place] [id number]- Name: Edenilson Puckett MD Position: [facility] FOIL SPINNER MD Member Role: Lifetime FOIL SPINNER Physician Address: Address: [address] [place] [id number]- Name: Jovana Park RN Position: S RN Member Role: Primary Care Nurse Name: Chidi Clark DO Position: [facility] Renal MD Member Role: Lifetime Consulting Physician Address: Address: [address] [place] [address] [address] [facility] [place] [address]- Name: Mireya Torres RN Position: S RN Member Role: Primary Care Nurse Name: Kelly Maddox RN Position: S RN Member Role: Primary Care Nurse Care Team Related Persons Name: MARYA ADRIAN Address: home [address] [place] [address] Name: MORALES HOWELL Address: home [address] [place] [id number]
--- OUTSIDE RECORDS SUMMARY | 2023-09-12 11:19 | XMS_ITS | Continuity of Care Document ---
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 Start Date: 05/12/22 Status: Ordered albuterol CFC free 90 mcg/inh inhalation aerosol 2, puffs, Inhalation, 4 times a day, PRN, Dispense brand as required by insurance, # 18 Gm, [id number], Tot. Refills 11, Maintenance, 05/12/22 11:38:00 EST, Aerosol, Route to Pharmacy Electronically, [id number], [facility]... Start Date: 05/12/22 Status: Ordered albuterol-ipratropium 3 mg-0.5 mg/3 ml inhalation solution 1 vials, Inhalation, 4 times a day, # 180 mL, 11 Refills, Maintenance, 05/12/22 11:38:00 EST, [facility] #[id number], 15, 1 vials Inhalation 4 times a [...] By Mouth, Daily, take at bedtime, # 30 tablet, 6 Refills, Maintenance, 12/07/22 16:46:00 EDT, [facility] #[id number], 165, cm, 12/06/22 17:39:00 EDT, Height, 88.2, kg, 05/26/22 7:52:00EDT, Dry Weight Start Date: 12/07/22 Status: Ordered amlodipine-benazepril 5 mg-10 mg oral capsule 1 capsule, By Mouth, Daily, To replace prior prescription (amlodipine)., # 90 capsule, 11 Refills, Maintenance, 03/01/22 16:04:00 EST, Capsule, [facility] #[id number], Partial fill upon patient request if the prescription is for a schedule II opi... Start Date: 03/01/22 Stop Date: 02/13/25 Status: Ordered apixaban 2.5 mg oral tablet 1 tablet = 2.5 mg, By Mouth, 2 times a day, # 60 tablet, 0 Refills, Maintenance, 05/28/22 8:20:00 EDT, Tablet, [facility], Partial fill upon patient request if [...] tablet, 11 Refills, Maintenance, 09/25/21 11:17:00 EDT, [facility] #[id number], 165, cm, 09/25/21 11:04:00 EDT, Height, 96, [...] each, 11 Refills, Maintenance, 09/25/21 11:17:00 EDT, [place], [facility] #[id number], 1 sprays Nares, Both 2 times a day,x30 days, 165, cm, 09/25/21 11:04:00 EDT, Height, 96, kg, 07/13/21 10:52:00 EDT, Dry... Start Date: 09/25/21 Stop Date: 09/20/22 Status: Ordered Flovent HFA 220 mcg/inh inhalation aerosol 2 puffs, Inhalation, 2 times a day, # 12 Gm, 11 Refills, Maintenance, 05/19/22 13:39:00 EST, [id number], Partial fill upon patient request if the [...] 03/13/23 15:24:00 EST, 09/01/22 15:23:00 EDT, Ointment, [facility] #[id number], Partial fill upon patient request if the [...] pain; may fill less; May fill on/after 12/29/2022, # 180 tablet, 0 Refills, Maintenance, 12/21/22 8:29:00 EDT, Tablet, [facility] Start Date: 12/21/22 Stop Date: 01/20/23 Status: Ordered oxyCODONE 15 mg oral tablet [...] 05/12/22 11:38:00 EST, Route to Pharmacy Electronically, [facility] #[id number], 168, cm, 05/12/2310:30:00 EST, Height, 85, kg, [...] Team Personnel Name: Tristin Hunt RN Position: [facility] RN Member Role: Primary Care Nurse Name: Lisseth Nassar NP Position: [facility] PCO Associate Professional Member Role: PCP Address: Address: [address] [place] [address]- Name: Lavern SPENCER, Edenilson Chen Position: [facility] CEMENT MIXER DRIVER MD Member Role: Lifetime CEMENT MIXER DRIVER Physician Address: Address: [address] [place] [address]- Name: Jovana Park RN Position: S RN Member Role: Primary Care Nurse Name: Chidi Clark DO Position: [facility] Renal MD Member Role: Lifetime Consulting Physician Address: Address: [address] [place], [place] [address] [place] [address]- Name: Mireya Torres RN Position: [facility] RN Member Role: Primary Care Nurse Name: Starr Harper RN Position: [facility] SN RN Member Role: Primary Care Nurse Name: Kelly Maddox RN Position: S RN Member Role: Primary Care Nurse Care Team Related Persons Name: MARYA ADRIAN Address: [address] [place] [address] Name: MORALES HOWELL Address: home [address] [place] [address]
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
--- OUTSIDE RECORDS SUMMARY | 2023-09-12 11:19 | XMS_ITS | Continuity of Care Document ---
Author Organization [facility] Address [address] [place] [address]- Care Team Providers Care Rn Neurology Name Role Phone Cesario VALDEZ, Lisseth Hancock Primary Care Physician [phone] Encounter [facility] Date(s): 07/16/22 - 11/13/22 [facility] [address] [place] [address]- Attending Physician: Lyle Zhang MD Admitting Physician: Lyle Zhang MD Referring Physician: Lisseth Nassar NP Allergies, Adverse Reactions, Alerts Substance Reaction Severity Status sulfADIAZINE rash Active sertraline 1 QT wave change Active fentanyl topical passed out Active sulfa drugs rash Active Haldol Agitation Active Bactrim rash Active NSAIDs 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 Active 1 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 Start Date: 05/12/22 Status: Ordered albuterol CFC free 90 mcg/inh inhalation aerosol 2, puffs, Inhalation, 4 times a day, PRN, Dispense brand as required by insurance, # 18 Gm, [id number], Tot. Refills 11, Maintenance, 05/12/22 11:38:00 EST, Aerosol, Route to Pharmacy Electronically, [id number], [facility]... Start Date: 05/12/22 Status: Ordered albuterol-ipratropium 3 mg-0.5 mg/3 ml inhalation solution 1 vials, Inhalation, 4 times a day, # 180 mL, 11 Refills, Maintenance, 05/12/22 11:38:00 EST, [facility] #55583, 15, 1 vials Inhalation 4 times a [...] 11 Refills, Maintenance, 03/01/22 16:04:00 EST, Capsule, [id number], Partial fill upon patient request if the prescription is for a schedule II opi... Start Date: 03/01/22 Stop Date: 02/13/25 Status: Ordered apixaban 2.5 mg oral tablet 1 tablet = 2.5 mg, By Mouth, 2 times a day, # 60 tablet, 0 Refills, Maintenance, 05/28/22 8:20:00 EDT, Tablet, [facility], Partial fill upon patient request if [...] tablet, 11 Refills, Maintenance, 09/25/21 11:17:00 EDT, [facility] #10868, 165, cm, 09/25/21 11:04:00 EDT, Height, 96, [...] each, 11 Refills, Maintenance, 09/25/21 11:17:00 EDT, [place], [facility] #[id number], 1 sprays Nares, Both 2 times a day,x30 days, 165, cm, 09/25/21 11:04:00 EDT, Height, 96, kg, 07/13/21 10:52:00 EDT, Dry... Start Date: 09/25/21 Stop Date: 09/20/22 Status: Ordered Flovent HFA 220 mcg/inh inhalation aerosol 2 puffs, Inhalation, 2 times a day, # 12 Gm, 11 Refills, Maintenance, 05/19/22 13:39:00 EST, Aerosol, [facility] #[id number], Partial fill upon patient request if the [...] 03/13/23 15:24:00 EST, 09/01/22 15:23:00 EDT, Ointment, [facility] #[id number], Partial fill upon patient request if the [...] pain; may fill less; May fill on/after 11/04/2022, # 180 tablet, 0 Refills, Maintenance, 11/04/22 8:16:00 EDT, Tablet, [facility]... Start Date: 11/04/22 Stop Date: 12/04/22 Status: Ordered oxyCODONE 15 mg oral tablet [...] 05/12/22 11:38:00 EST, Route to Pharmacy Electronically, [facility] #[id number], 168, cm, 05/12/2310:30:00 EST, Height, 85, kg, [...] History Type Response Tobacco Use: MARIJUANA. Sex Cardiology Outpatient Note * Lyle Zhang MD: PERFORM Event Display: Cardiology Note Office Authored Date: [id number] The patient did not show for her f/u appointment today. Patient Care team information Care Team Personnel Name: Tristin Hunt RN Position: [facility] RN Member Role: Primary Care Nurse Name: Lisseth Nassar NP Position: [facility] PCO Associate Professional Member Role: PCP Address: Address: [address] [place] [id number]- Name: Edenilson Puckett MD Position: [facility] PRN OCCUPATIONAL THERAPIST MD Member Role: Lifetime PRN OCCUPATIONAL THERAPIST Physician Address: Address: [address] [place] [address]- Name: Jovana Park RN Position: S RN Member Role: Primary Care Nurse Name: Chidi Clark DO Position: [facility] Renal MD Member Role: Lifetime Consulting Physician Address: Address: [address] [place], [place] [address] [place] [address]- Name: Mireya Torres RN Position: S RN Member Role: Primary Care Nurse Name: Starr Harper RN Position: [facility] SN RN Member Role: Primary Care Nurse Name: Kelly Maddox RN Position: S RN Member Role: Primary Care Nurse Care Team Related Persons Name: KAYLAH MARYA Address: home [address] [place] [address] Name: MORALES HOWELL Address: home [address] [place] [address]
--- OUTSIDE RECORDS SUMMARY | 2023-09-12 11:19 | XMS_ITS | Continuity of Care Document ---
Author Organization [facility] Address [address] [place] [address]- Care Team Providers Care Trust Clerk Name Role Phone Cesario VALDEZ, Lisseth Hancock Primary Care Physician [phone] [place] [facility] [place]26[place]23 - 02/25/[address] [address]- Attending Physician: Admtr, Ar8 Allergies, Adverse Reactions, Alerts Substance Reaction Severity Status sulfADIAZINE rash Active sertraline 1 QT wave change Active fentanyl topical passed out Active sulfa drugs rash Active Haldol Agitation Active Bactrim rash Active NSAIDs 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 Active 1 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 Start Date: 01/26/23 Status: Ordered albuterol CFC free 90 mcg/inh inhalation aerosol 2, puffs, Inhalation, 4 times a day, PRN, Dispense brand as required by insurance, # 1 each, Refills 11, Tot. Refills 11, Maintenance, 01/26/23 14:00:00 EST, Aerosol, Route to Pharmacy Electronically, [id number], [facility]. Start Date: 01/26/23 Status: Ordered albuterol-ipratropium 3 mg-0.5 mg/3 ml inhalation solution 1 vials, Inhalation, 4 times a day, # 180 mL, 11 Refills, Maintenance, 01/27/23 9:25:00 EST, [facility] #63009, 15, 1 vials Inhalation 4 times a [...] tablet, 6 Refills, Maintenance, 12/07/22 16:46:00 EDT, [facility] #[id number], 165, cm, 12/06/22 17:39:00 EDT, Height, 88.2, kg, 05/26/22 7:52:00EDT, Dry Weight Start Date: 12/07/22 Status: Ordered amlodipine-benazepril 5 mg-10 mg oral capsule 1 capsule, By Mouth, Daily, To replace prior prescription (amlodipine)., # 90 capsule, 11 Refills, Maintenance, 03/01/22 16:04:00 EST, Capsule, [facility] #74499, Partial fill upon patient request if the prescription is for a schedule II opi... Start Date: 03/01/22 Stop Date: 02/13/25 Status: Ordered Bedside Commode See Instructions, # [...] tablet, 3 Refills, Maintenance, 01/26/23 14:00:00 EST, [facility] #[id number], 165, cm, 01/26/23 13:31:00 EST, Height, 88.2, kg, 05/26/22 7:52:00 EDT, Dry Weight Start Date: 01/26/23 Stop Date: 01/21/24 Status: Ordered clonazePAM 0.5 mg oral tablet [...] each, 11 Refills, Maintenance, 09/25/21 11:17:00 EDT, [place], [facility] #[id number], 1 sprays Nares, Both 2 times a day,x30 days, 165, cm, 09/25/21 11:04:00 EDT, Height, 96, kg, 07/13/21 10:52:00 EDT, Dry... Start Date: 09/25/21 Stop Date: 09/20/22 Status: Ordered fluconazole 150 mg oral tablet 1 tablet = 150 mg, By Mouth, Once, Repeat dose if still having symptoms in 72 hours, # 2 tablet, 1 Refills, Soft Stop, 01/26/23 14:19:00 EST, Tablet, [facility] #[id number], Partial fill upon patient request if the prescription is for a schedule... Start Date: 01/26/23 Status: Ordered gabapentin 300 mg oral capsule [...] opioid drug. Start Date: 05/28/22 Status: Ordered mometasone 200 mcg/inh inhalation aerosol 2 puffs, Inhalation, 2 times a day, rinse mouth and throat after use; to replace flovent, # 13 Gm, 11 Refills, Maintenance, 01/26/23 14:04:00 EST, Aerosol, [facility] #[id number], Partial fill upon patient request if the prescription is for a s... Start Date: 01/26/23 Status: Ordered mupirocin 2% topical ointment 1 application, Topically, 3 times a day, # 30 Gm, 2 Refills, Acute 03/13/23 15:24:00 EST, 09/01/22 15:23:00 EDT, Ointment, [facility] #[id number], Partial fill upon patient request if the [...] pain; may fill less; May fill on/after 02/25/2023 to replace previous RX, # 180 tablet, 0 Refills, Maintenance, 02/24/23... Start Date: 02/24/23 Stop Date: 03/26/23 Status: Ordered Prevacid 30 mg oral enteric coated capsule 1 capsule = 30 mg, By Mouth, Daily, # 90 capsule, 4 Refills, Maintenance, 01/26/23 14:02:00 EST, [facility] #[id number], 165, cm, 01/26/23 13:31:00 EST, Height, 88.2, [...] 01/26/23 14:02:00 EST, Route to Pharmacy Electronically, [facility] #[id number], 165, cm, 01/26/23 13:31:00 EST, Height, 88.2, [...] History Type Response Tobacco Other: WEED. Sex Hospital Consult note * Event Display: Inpatient Consult Note, Non-BH Authored Date: * Event Display: Inpatient Consult Note, Non-BH Authored Date: * Event Display: Inpatient Consult Note, Non-BH Authored Date: Cardiology * Event Display: Holter Report Authored Date: * Renée Cohenrely: PERFORM Event Display: Cardiovascular Results Scanned Authored Date: * Vicki , Laxmi: PERFORM Event Display: Cardiovascular Results Scanned Authored Date: Laboratory * Event Display: Non BH Lab Results Authored Date: * Event Display: Non BH Lab Results Authored Date: * Event Display: Non BH Lab Results Authored Date: Cardiology Consult note * Event Display: Consult Note Cardiology Authored Date: * Event Display: Consult Note Cardiology Authored Date: * Event Display: Consult Note Cardiology Authored Date: Radiology * Event Display: IR Special Procedures, Non-BH Authored Date: * Event Display: IR Special Procedures, Non-BH Authored Date: * Event Display: X-Ray Abdomen, Non- BH Authored Date: * Event Display: IR Special Procedures, Non-BH Authored Date: * Event Display: MRI Knee Authored Date: * Event Display: NM Nuclear Medicine Authored Date: * Event Display: Non BH Radiology Results Authored Date: * Lili Arellano: PERFORM Event Display: Radiology Results Scanned Authored Date: * Sunshine Monique: PERFORM Event Display: Radiology Results Scanned Authored Date: US Lower extremity * Event Display: Ultrasound Lower Extremity Authored Date: Patient Care team information Care Team Personnel Name: Tristin Hunt RN Position: S RN Member Role: Primary Care Nurse Name: Lisseth Nassar NP Position: [facility] PCO Associate Professional Member Role: PCP Address: Address: [address] [place] [address]- [place] Name: Edenilson Puckett MD Position: [facility] BOOTH USHER MD Member Role: Lifetime BOOTH USHER Physician Address: Address: [address] [place] [address]- [place] Name: Jovana Park RN Position: S SN RN Member Role: Primary Care Nurse Name: Chidi Clark DO Position: [facility] Renal MD Member Role: Lifetime Consulting Physician Address: Address: [address] [place], [place] [address] [place] [address]- [place] Name: Mireya Torres RN Position: S RN Member Role: Primary Care Nurse Name: Starr Harper RN Position: S SN RN Member Role: Primary Care Nurse Name: Kelly Maddox RN Position: S RN Member Role: Primary Care Nurse Care Team Related Persons Name: OLEG ADRIANELA Address: [address] [place] [address] Name: MORALES HOWELL Address: [address] [place] [address]
--- OUTSIDE RECORDS SUMMARY | 2023-09-12 11:19 | XMS_ITS | Continuity of Care Document ---
Author Organization [facility] Address [address] [place] [address]- Care Team Providers Care Boat Hoist Operator Name Role Phone Cesario VALDEZ, Lisseth Hancock Primary Care Physician [phone] [place] [facility] [place] 03/25/[address] [address]- Attending Physician: Tristin Brown MD Admitting Physician: Tristin Brown MD Allergies, Adverse Reactions, Alerts Substance Reaction Severity Status sulfADIAZINE rash Active morphine rash & swelling Active sertraline 1 QT wave change Active sulfa drugs rash Active Bactrim rash Active NSAIDs 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 Active 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 Immunizations Given and Recorded Vaccine Date Status Refusal Reason tetanus-diphtheria toxoids (Td) 09/03/20 Given SARS-CoV-2 (COVID-19) mRNA BNT-162b2 vac 07/13/20 Recorded SARS-CoV-2 (COVID-19) mRNA BNT-162b2 vac 06/21/20 Recorded influenza virus vaccine, inactivated 03/16/20 Anthony rded [...] 5 Refills, Maintenance, 05/07/19 10:46:00 EST, Solution, [facility] #[id number], 167.64, cm, 04/24/19 16:16:00 EST, Height, 100.4, kg, 08/03/18 10:14:00 EDT, Dry Weight Start Date: 05/07/19 Status: Ordered albuterol CFC free 90 mcg/inh inhalation aerosol 2, puffs, Inhalation, 4 times a day, PRN, # 25 Gm, Refills 11, Tot. Refills 11, Maintenance, 11/24/17 13:49:05 EDT, Aerosol, Route to Pharmacy Electronically, [id number], [facility] [id number], Compound Start Date: 11/24/17 Status: Ordered albuterol-ipratropium 3 mg-0.5 mg/3 ml inhalation solution 1 vials, Inhalation, 4 times a day, # 180 mL, 5 Refills, Maintenance, 07/30/19 11:02:00 EDT, [facility] #[id number], 15, INHALE CONTENTS OF 1 VIAL VIA NEBULIZER FOUR TIMES DAILY, 167.64, cm, 04/24/19 16:16:00 EST, Height, 100.4, kg, 08/03/18 10:1... Start Date: 07/30/19 Status: Ordered amlodipine-benazepril 5 mg-10 mg oral capsule 1 capsule, By Mouth, Daily, To replace prior prescription (amlodipine)., # 30 capsule, 3 Refills, Maintenance, 03/10/21 15:34:00 EST, Capsule, [facility] #[id number], Partial fill upon patient request if the prescription is for a schedule II opio... Start Date: 03/10/21 Status: Ordered aspirin 81 mg oral delayed release tablet 81 mg, 1, tablet, By Mouth, Daily, # 30 tablet, Refills 5, Tot. Refills 5, Maintenance, 11/02/19 11:39:00 EDT, Route to Pharmacy Electronically, [facility] #[id number], 167.64, cm, 11/02/19 10:58:00 EDT, Height, 100.4, kg, 08/03/18 10:14:00 EDT,... Start Date: 11/02/19 Status: Ordered bacitracin topical 500 u/gm ointment 1 application, Topically, 4 times a day, # 30 Gm, 0 Refills, Maintenance, 09/02/20 15:20:00 EDT, Ointment, [facility] #[id number], Partial fill upon patient request if the prescription is for a schedule II opioid drug., 1 application Topically 4... Start Date: 09/02/20 Stop Date: 09/12/20 Status: Ordered baclofen 10 mg oral tablet 1, tablet, By Mouth, 3 times a day, # 60 tablet, Refills 0, Tot. Refills 0, Maintenance, 02/25/20 13:59:00 EST, Route to Pharmacy Electronically, [facility] #[id number], 167.64, cm, 11/12/19 15:34:00 EDT, Height, 100.4, kg, 08/03/18 10:14:00 EDT,... Start Date: 02/25/20 Status: Ordered Bedside Commode See Instructions, # 1 each, Maintenance, please dispense bedside commode Dx M48.00, M54.5, R10.9, M17.10; length of need 99, 04/16/19 11:58:00 EST, Compound Start Date: 04/16/19 Status: Ordered cetirizine 10 mg oral tablet 1 tablet, By Mouth, Daily, # 30 tablet, 11 Refills, Maintenance, 01/11/20 10:43:00 EDT, [facility] #[id number], 167.64, cm, 11/12/19 15:34:00 EDT, Height, 100.4, kg, 08/03/18 10:14:00 EDT, Dry Weight Start Date: 01/11/20 Status: Ordered clonazePAM 0.5 mg oral tablet [...] DAILY, # 44 mL, 0 Refills, Maintenance, [id number], 29, SPRAY TWICE IN EACH NOSTRIL FOUR TIMES DAILY, 167.64, cm, 04/24/19 16:16:00 EST, Height, 100.4, kg, 08/03/18 10:14:00 EDT... Start Date: 06/17/19 Status: Ordered Depakote 500 mg oral enteric coated tablet 1 tablet = 500 mg, By Mouth, 2 times a day, 0 Refills, Maintenance, 06/13/17 14:38:25 EDT Start Date: 06/13/17 Status: Ordered EpiPen 2-Chandrakant 0.3 mg injectable kit = 0.3 mg, Intramuscular, Once, May use generic, # 1 each, 0 Refills, Soft Stop, 10/25/17 17:42:51 EDT Start Date: 10/25/17 Status: Ordered ferrous sulfate 325 mg oral enteric coated tablet 325 mg, 1, tablet, By Mouth, Daily, To be taken tuesday, tuesday and tuesday may take with food to minimize abdominal discomfort, # 90 tablet, Refills 3, Tot. Refills 3, Maintenance, 07/18/20 12:54:00 EDT, Route to Pharmacy Electronically, [facility]... Start Date: 07/18/20 Stop Date: 07/13/21 Status: Ordered Flonase 50 mcg/inh nasal spray 1 sprays, Nares, Both, 2 times a day, # 1 each, 5 Refills, Maintenance, 06/05/18 19:53:47 EDT, [place], 1 sprays Nares, Both 2 times a [...] a day Start Date: 06/02/17 Status: Ordered fluocinonide 0.05% topical ointment 1 application, Topically, 3 times a day, # 30 Gm, 11 Refills, Acute 03/13/22 14:45:00 EST, 03/20/2213:45:00 EST, Ointment, [facility] #[id number], Partial fill upon patient request if the prescription is for a schedule II opioid drug., 1 applica... Start Date: 03/20/21 Stop Date: 03/13/22 Status: Ordered Home Blood Pressure Monitor See Instructions, # 1 each, Refills 0, Tot. Refills 0, Maintenance, Use to measure blood pressure at rest daily. Dx HTN on Rx I10, 11/01/19 17:06:00 EDT, Supply Start Date: 11/01/19 Status: Ordered Lyrica 75 mg oral capsule 1 capsule = 75 mg, By Mouth, 2 times a day, # 60 capsule, 5 Refills, Maintenance, 12/19/18 9:15:42 EDT, Capsule Start Date: 12/19/18 Status: Ordered multivitamin Multiple Vitamins oral capsule 1 capsule, By Mouth, Daily, # 30 capsule, 11 Refills, Maintenance, 03/02/19 10:19:00 EST, Capsule, [facility] #[id number], 1 capsule By Mouth Daily, 167.64, cm, [...] Date: 04/25/18 Stop Date: 09/22/18 Status: Ordered PriLOSEC 2.5 mg oral powder for reconstitution, delayed release 2 each = 5 mg, By Mouth, Daily, 0 Refills, Maintenance, 11/12/19 15:38:00 EDT Start Date: 11/12/19 Status: Ordered promethazine 25 mg oral tablet 1 tablet = 25 mg, By Mouth, Every 4 hours, PRN for nausea/vomiting, # 60 tablet, 11 Refills, Maintenance, 01/12/19 9:54:33 EDT, Tablet Start Date: 01/12/19 Status: Ordered promethazine 25 mg oral tablet See Instructions, # 60 tablet, TAKE 1 TABLET BY MOUTH EVERY 4 HOURS NEEDED FOR NAUSEA OR VOMITING, [facility] #[id number] Start Date: 12/05/18 Status: Ordered raised toilet [...] Maintenance, 06/02/17 13:39:59, Route to Pharmacy Electronically, [id number], [facility] [address] Start Date: 06/02/17 Status: Ordered tiZANidine 2 mg oral tablet 2 mg, 1, tablet, By Mouth, Every 8 hours, PRN, # 90 tablet, Refills 3, Tot. Refills 3, Maintenance,as needed for muscle spasm, 01/30/21 8:11:00 EST, Route to Pharmacy Electronically, [facility] #[id number], Partial fill upon patient request, 167... Start Date: 01/30/21 Status: Ordered Transfer Bench See Instructions, # [...] EDT, Compound Start Date: 06/29/19 Status: Ordered Zantac 300 oral tablet 1 [...] 04/29/16 negative.(Confirmed) Active Chronic abdominal pain(Confirmed) Active Interstitial cystitis(Confirmed) Active Chronic sinusitis(Confirmed) Active Discoloration of skin(Confirmed) Active Plantar fascia rupture(Confirmed) Active Dysmenorrhea(Confirmed) Active Pedal edema(Confirmed) Active Lower leg edema(Confirmed) Active Fall at home(Confirmed) Active Known history of pelvic adhe sions [...] Multiple environmental allergies(Confirmed) Active Nonallergic rhinitis(Confirmed) Active Obese class I(Confirmed) Active Obesity(Confirmed) Active Obstructive sleep apnea(Confirmed) Active Osteoarthritis of knee(Confirmed) Active Controlled substance agreeme nt signed 09/20/2017(Confirmed) Active Palpitation(Confirmed) Active COVID-19 virus detected(Confirmed) Active COVID-19 virus detected(Confirmed) 2 Active Allergic sinusitis(Confirmed) 3 Active Spinal stenosis(Confirmed) Active 1began [facility] 3rd [facility] 10/21/2020 3allergy testing showed dust mites, mold, cats, dogs, maple, oak; starting immunotherapy 07/2015 Social History Social History Type Response Smoking Status Never smoker entered on: 04/07/17 Sex Female
--- OUTSIDE RECORDS SUMMARY | 2023-09-12 11:19 | XMS_ITS | Continuity of Care Document ---
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 Refills 11, Maintenance, 11/24/17 13:49:05 EDT, Aerosol, Route to Pharmacy Electronically, [id number], [facility] [id number], Compound Start Date: 11/24/17 Status: Ordered albuterol-ipratropium 3 mg-0.5 mg/3 ml inhalation solution 1 vials, Inhalation, 4 times a day, # 180 mL, 5 Refills, Maintenance, 07/30/19 11:02:00 EDT, [facility] #[id number], 15, INHALE CONTENTS OF 1 VIAL VIA NEBULIZER FOUR TIMES DAILY, 167.64, cm, 04/24/19 16:16:00 EST, Height, 100.4, kg, 08/03/18 10:1... Start Date: 07/30/19 Status: Ordered amLODIPine 10 mg oral tablet 1 tablet, By Mouth, Daily, # 30 tablet, 6 Refills, Maintenance, 10/04/19 12:22:00 EDT, [facility] #[id number], 167.64, cm, 04/24/19 16:16:00 EST, Height, 100.4, kg, 08/03/18 10:14:00 EDT, Dry Weight Start Date: 10/04/19 Status: Ordered aspirin 81 mg oral delayed release tablet 81 mg, 1, tablet, By Mouth, Daily, # 30 tablet, Refills 5, Tot. Refills 5, Maintenance, 11/02/19 11:39:00 EDT, Route to Pharmacy Electronically, [facility] #[id number], 167.64, cm, 11/02/19 10:58:00 EDT, Height, 100.4, kg, 08/03/18 10:14:00 EDT,... Start Date: 11/02/19 Status: Ordered baclofen 10 mg oral tablet 1, tablet, By Mouth, 3 times a day, # 60 tablet, Refills 2, Tot. Refills 2, Maintenance, 11/22/19 8:56:00 EDT, Route to Pharmacy Electronically, [facility] #[id number], 167.64, cm, 11/12/19 15:34:00 EDT, Height, 100.4, kg, 08/03/18 10:14:00 EDT,... Start Date: 11/22/19 Status: Ordered baclofen 10 mg oral tablet 1, tablet, By Mouth, 3 times a day, # 60 tablet, Refills 2, Tot. Refills 2, Maintenance, 06/14/19 9:10:00 EDT, Route to Pharmacy Electronically, [facility] #[id number], 167.64, cm, 04/24/19 16:16:00 EST, Height, 100.4, [...] 5 Refills, Maintenance, 04/16/19 13:06:00 EST, Tablet, [facility] #[id number], 167.64, cm, 03/02/19 10:23:00 EST, Height, 100.4, [...] DAILY, # 44 mL, 0 Refills, Maintenance, [facility] #[id number], 29, SPRAY TWICE IN EACH NOSTRIL FOUR [...] each, 5 Refills, Maintenance, 06/05/18 19:53:47 EDT, [place], 1 sprays Nares, Both 2 times a [...] a day Start Date: 06/02/17 Status: Ordered Home Blood Pressure Monitor See [...] 11 Refills, Maintenance, 03/02/19 10:19:00 EST, Capsule, [facility] #[id number], 1 capsule By Mouth Daily, 167.64, cm, [...] 4 HOURS NEEDED FOR NAUSEA OR VOMITING, [facility] #[id number] Start Date: 12/05/18 Status: Ordered raised toilet [...] Maintenance, 06/02/17 13:39:59, Route to Pharmacy Electronically, [id number], [facility] [address] Start Date: 06/02/17 Status: Ordered Transfer Bench [...]
--- OUTSIDE RECORDS SUMMARY | 2023-09-12 11:19 | XMS_ITS | Continuity of Care Document ---
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 Start Date: 07/30/19 Status: Ordered Ambien 5 mg oral tablet 1 tablet = 5 mg, By Mouth, Daily at bedtime, PRN Insomnia, 0 Refills, Maintenance, 07/10/21 11:47:00 EDT, Partial fill upon patient request if the prescription is for a schedule II opioid drug. Start Date: 07/10/21 Status: Ordered amlodipine-benazepril 5 mg-10 mg oral capsule 1 capsule, By Mouth, Daily, To replace prior prescription (amlodipine)., # 30 capsule, 11 Refills, Maintenance, 04/23/21 14:51:00 EST, Capsule, [facility] #[id number], Partial fill upon patient request if the prescription is for a schedule II opi... Start Date: 04/23/21 Status: Ordered aspirin 81 mg oral delayed release tablet 81 mg, 1, tablet, By Mouth, Daily, # 30 tablet, Refills 5, Tot. Refills 5, Maintenance, 11/02/19 11:39:00 EDT, Route to Pharmacy Electronically, [facility] #[id number], 167.64, cm, 11/02/19 10:58:00 EDT, Height, 100.4, kg, 08/03/18 10:14:00 EDT,... Start Date: 11/02/19 Status: Ordered Bedside Commode See Instructions, # 1 each, Maintenance, please dispense bedside commode Dx M48.00, M54.5, R10.9, M17.10; length of need 99, 04/16/19 11:58:00 EST, Compound Start Date: 04/16/19 Status: Ordered cetirizine 10 mg oral tablet 1 tablet, By Mouth, Daily, # 30 tablet, 11 Refills, Maintenance, 01/11/20 10:43:00 EDT, [facility] #[id number], 167.64, cm, 11/12/19 15:34:00 EDT, Height, 100.4, [...] Date: 03/02/17 Stop Date: 04/01/17 Status: Ordered Compression Stockings See Instructions, # 2 each, Refills 2, Tot. Refills 2, Maintenance, surgical, calf length 20-30 mm Hg, Dx lower leg edema R60.0, 05/11/19 16:43:00 EST, Compound Start Date: 05/11/19 Status: Ordered Ditropan 4mg 2 tablets, By [...] each, 5 Refills, Maintenance, 06/05/18 19:53:47 EDT, [place], 1 sprays Nares, Both 2 times a day,x30 days Start Date: 06/05/18 Stop Date: 12/02/18 Status: Ordered fluocinonide 0.05% topical cream 1 applicator, Topically, 3 times a day, # 30 Gm, 3 Refills, Maintenance, 06/02/17 13:39:56, 1 applicator Topically 3 times a day Start Date: 06/02/17 Status: Ordered fluocinonide 0.05% topical ointment 1 application, Topically, 3 times a day, # 30 Gm, 11 Refills, Acute 03/13/22 14:45:00 EST, 03/20/2213:45:00 EST, Ointment, [facility] #[id number], Partial fill upon patient request if the prescription is for a schedule II opioid drug., 1 applica... Start Date: 03/20/21 Stop Date: 03/13/22 Status: Ordered Home Blood Pressure Monitor See Instructions, # 1 each, Refills 0, Tot. Refills 0, Maintenance, Use to measure blood pressure at rest daily. Dx HTN on Rx I10, 11/01/19 17:06:00 EDT, Supply Start Date: 11/01/19 Status: Ordered Movantik 12.5 mg oral tablet 1 tablet = 12.5 mg, By Mouth, 2 times a day, 0 Refills, Maintenance, 07/10/21 11:44:00 EDT, Partialfill upon patient request if the prescription is for a schedule II opioid drug. Start Date: 07/10/21 Status: Ordered multivitamin Multiple Vitamins oral capsule 1 capsule, By Mouth, Daily, # 30 capsule, 11 Refills, Maintenance, 03/02/19 10:19:00 EST, Capsule, [facility] #[id number], 1 capsule By Mouth Daily, 167.64, cm, [...] EST, Tablet Start Date: 01/24/18 Status: Ordered oxyCODONE 15 mg oral tablet 1 tablet = 15 mg, By Mouth, Every 6 hours, 0 Refills, Maintenance, 05/14/21 8:08:00 EST, Partial fill upon patient request if the prescription is for a schedule II opioid drug. Start Date: 05/14/21 Status: Ordered oxyCODONE 15 mg oral tablet 1 tablet = 15 mg, By Mouth, Every 4 hours, PRN as needed for pain, Pt on narcotic contract; MassPatchecked; Dx chronic low back pain; may fill less; fill on/after 08/13/2021, # 130 tablet, 0 Refills, Acute 03/13/22 8:16:00 EST, 08/13/21 8:16:00 EDT, Ta... Start Date: 08/13/21 Stop Date: 03/13/22 Status: Ordered Prevacid 30 mg oral enteric [...] opioid drug. Start Date: 07/10/21 Status: Ordered raised toilet seat raised toilet [...] Maintenance, 06/02/17 13:39:59, Route to Pharmacy Electronically, [id number], [facility] [address] Start Date: 06/02/17 Status: Ordered tiZANidine 2 mg oral tablet 2 mg, 1, tablet, By Mouth, Every 8 hours, PRN, # 90 tablet, Refills 3, Tot. Refills 3, Maintenance,as needed for muscle spasm, 06/18/21 10:33:00 EDT, Route to Pharmacy Electronically, [facility] #[id number], Partial fill upon patient request, 16... Start Date: 06/18/21 Status: Ordered Transfer Bench See Instructions, # 1 each, Maintenance, Dx M48, M54.16, M54.5, 03/20/18 13:26:26 EST, Compound Start Date: 03/20/18 Status: Ordered Trileptal 300 mg oral tablet 300 mg, 1, tablet, By Mouth, 2 times a day, # 60 tablet, Refills 5, Maintenance, 05/14/21 8:08:00 EST, Partial fill upon patient request if the prescription is for a schedule II opioid drug. Start Date: 05/14/21 Status: Ordered Walker See Instructions, # 1 each, Maintenance, Please dispense one front wheeled walker Dx M48, M54.16, M54.5, 03/20/18 13:25:58 EST, Compound Start Date: 03/20/18 Status: Ordered Wellbutrin XL 300 mg/24 hours oral tablet, extended release 1 tablet = 300 mg, By Mouth, Every 24 hours, Takes w 150mg to = 450mg, 0 Refills, Maintenance, 04/07/17 13:08:22 EST Start Date: 04/07/17 Status: Ordered Wheelchair See Instructions, # 1 each, Maintenance, Please dispense 1 large wheelchair with elevated leg rest;Ht 167cm, wt 100kg length of need 99mo Dx M17.1, M54.16, 06/29/19 14:53:00 EDT, [facility] Start Date: 06/29/19 Status: Ordered Problem List Condition Effective Dates [...] allergies(Confirmed) Active Nonallergic rhinitis(Confirmed) Active Obese class II(Confirmed) Active Obesity(Confirmed) Active Obstructive sleep apnea(Confirmed) Active Osteoarthritis of knee(Confirmed) Active Controlled substance agreeme nt signed 04/23/21(Confirmed) Active Palpitation(Confirmed) Active COVID-19 virus detected(Confirmed) Active COVID-19 virus detected(Confirmed) 2 Active Allergic sinusitis(Confirmed) 3 Active Spinal stenosis(Confirmed) Active 1began [facility] 3rd [facility] 10/21/2020 3allergy testing showed dust mites, mold, cats, dogs, maple, oak; starting immunotherapy 07/2015 Social History Social History Type Response Tobacco Use: MARIJUANA. Sex Female
--- OUTSIDE RECORDS SUMMARY | 2023-09-12 11:19 | XMS_ITS | Continuity of Care Document ---
Author Organization [facility] Tory tayler Address [address] [place] [address] [address] [place] [address]- Care Team Providers Care Manager Wound Name Role Phone Cesario BUSINESS INTELLIGENCE ANALYST, Lisseth Hancock Primary Care Physician [phone] Encounter [facility] Date(s): 09/11/20 - 10/11/20 [facility] [address] [place] [address]- Allergies, Adverse Reactions, Alerts Substance Reaction Severity Status sulfADIAZINE rash Active morphine rash & swelling Active sertraline 1 QT wave change Active sulfa drugs rash Active Bactrim rash Active NSAIDs 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 Active 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 Refills 11, Maintenance, 11/24/17 13:49:05 EDT, Aerosol, Route to Pharmacy Electronically, [id number], [facility], Compound Start Date: 11/24/17 Status: Ordered albuterol-ipratropium 3 mg-0.5 mg/3 ml inhalation solution 1 vials, Inhalation, 4 times a day, # 180 mL, 5 Refills, Maintenance, 07/30/19 11:02:00 EDT, [facility] #[id number], 15, INHALE CONTENTS OF 1 VIAL VIA NEBULIZER FOUR TIMES DAILY, 167.64, cm, 04/24/19 16:16:00 EST, Height, 100.4, kg, 08/03/18 10:1... Start Date: 07/30/19 Status: Ordered amLODIPine 10 mg oral tablet 1 tablet, By Mouth, Daily, # 30 tablet, 5 Refills, Maintenance, 05/06/20 12:30:00 EST, [facility] #03901, 167.64, cm, 03/25/20 14:59:00 EST, Height, 100.4, kg, 08/03/18 10:14:00 EDT, Dry Weight Start Date: 05/06/20 Status: Ordered aspirin 81 mg oral delayed release tablet 81 mg, 1, tablet, By Mouth, Daily, # 30 tablet, Refills 5, Tot. Refills 5, Maintenance, 11/02/19 11:39:00 EDT, Route to Pharmacy Electronically, [facility] #[id number], 167.64, cm, 11/02/19 10:58:00 EDT, Height, 100.4, kg, 08/03/18 10:14:00 EDT,... Start Date: 11/02/19 Status: Ordered bacitracin topical 500 u/gm ointment 1 application, Topically, 4 times a day, # 30 Gm, 0 Refills, Maintenance, 09/02/20 15:20:00 EDT, Ointment, [facility] #[id number], Partial fill upon patient request if the prescription is for a schedule II opioid drug., 1 application Topically 4... Start Date: 09/02/20 Stop Date: 09/12/20 Status: Ordered baclofen 10 mg oral tablet 1, tablet, By Mouth, 3 times a day, # 60 tablet, Refills 0, Tot. Refills 0, Maintenance, 02/25/20 13:59:00 EST, Route to Pharmacy Electronically, [facility] #[id number], 167.64, cm, 11/12/19 15:34:00 EDT, Height, 100.4, [...] tablet, 11 Refills, Maintenance, 01/11/20 10:43:00 EDT, [facility] #87536, 167.64, cm, 11/12/19 15:34:00 EDT, Height, 100.4, [...] DAILY, # 44 mL, 0 Refills, Maintenance, [facility] #25923, 29, SPRAY TWICE IN EACH NOSTRIL FOUR [...] 07/18/20 12:54:00 EDT, Route to Pharmacy Electronically, [facility]... Start Date: 07/18/20 Stop Date: 07/13/21 Status: Ordered Flonase 50 mcg/inh nasal spray 1 sprays, Nares, Both, 2 times a day, # 1 each, 5 Refills, Maintenance, 06/05/18 19:53:47 EDT, [place], 1 sprays Nares, Both 2 times a [...] 11 Refills, Maintenance, 03/02/19 10:19:00 EST, Capsule, [facility] #76017, 1 capsule By Mouth Daily, 167.64, cm, [...] 4 HOURS NEEDED FOR NAUSEA OR VOMITING, [facility] #[id number] Start Date: 12/05/18 Status: Ordered raised toilet [...] Maintenance, 06/02/17 13:39:59, Route to Pharmacy Electronically, [id number], [facility] [address] Start Date: 06/02/17 Status: Ordered tiZANidine 2 mg oral tablet 2 mg, 1, tablet, By Mouth, Every 8 hours, PRN, # 90 tablet, Refills 3, Tot. Refills 3, Maintenance,as needed for muscle spasm, 02/08/20 9:24:00 EST, Route to Pharmacy Electronically, [facility] #[id number], Partial fill upon patient request, 167... Start Date: 02/08/20 Status: Ordered Transfer Bench See Instructions, # [...] Pedal edema(Confirmed) Active Lower leg edema(Confirmed) Active Known history [...] agreeme nt signed 09/20/2017(Confirmed) Active Palpitation(Confirmed) Active Allergic sinusitis(Confirmed) 2 Active Spinal stenosis(Confirmed) Active 1began in 3rd 2allergy testing showed dust mites, mold, cats, dogs, maple, oak; starting immunotherapy 07/2015 Social History Social History Type Response Smoking Status Never smoker entered on: 04/07/17 Sex Female
--- OUTSIDE RECORDS SUMMARY | 2023-09-12 11:19 | XMS_ITS | Continuity of Care Document ---
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 Start Date: 05/12/22 Status: Ordered albuterol CFC free 90 mcg/inh inhalation aerosol 2, puffs, Inhalation, 4 times a day, PRN, Dispense brand as required by insurance, # 18 Gm, [id number], Tot. Refills 11, Maintenance, 05/12/22 11:38:00 EST, Aerosol, Route to Pharmacy Electronically, [id number], [facility]... Start Date: 05/12/22 Status: Ordered albuterol-ipratropium 3 mg-0.5 mg/3 ml inhalation solution 1 vials, Inhalation, 4 times a day, # 180 mL, 11 Refills, Maintenance, 05/12/22 11:38:00 EST, [facility] #12453, 15, 1 vials Inhalation 4 times a [...] 11 Refills, Maintenance, 03/01/22 16:04:00 EST, Capsule, [facility] #43319, Partial fill upon patient request if the prescription is for a schedule II opi... Start Date: 03/01/22 Stop Date: 02/13/25 Status: Ordered apixaban 2.5 mg oral tablet 1 tablet = 2.5 mg, By Mouth, 2 times a day, # 60 tablet, 0 Refills, Maintenance, 05/28/22 8:20:00 EDT, Tablet, [facility] 3, Partial fill upon patient request if [...] tablet, 11 Refills, Maintenance, 09/25/21 11:17:00 EDT, [facility] #11313, 165, cm, 09/25/21 11:04:00 EDT, Height, 96, [...] each, 11 Refills, Maintenance, 09/25/21 11:17:00 EDT, [place], [facility] #11026, 1 sprays Nares, Both 2 times a day,x30 days, 165, cm, 09/25/21 11:04:00 EDT, Height, 96, kg, 07/13/21 10:52:00 EDT, Dry... Start Date: 09/25/21 Stop Date: 09/20/22 Status: Ordered Flovent HFA 220 mcg/inh inhalation aerosol 2 puffs, Inhalation, 2 times a day, # 12 Gm, 11 Refills, Maintenance, 05/19/22 13:39:00 EST, Aerosol, [facility] #23429, Partial fill upon patient request if the [...] pain; may fill less; May fill on/after 06/14/2022, # 180 tablet, 0 Refills, Maintenance, 06/14/22 14:56:00 EDT, Tablet, [facility]... Start Date: 06/14/22 Stop Date: 07/14/22 Status: Ordered Prevacid 30 mg oral enteric [...] 05/12/22 11:38:00 EST, Route to Pharmacy Electronically, [facility] #[id number], 168, cm, 05/12/2310:30:00 EST, Height, 85, kg, [...] Team Personnel Name: Tristin Hunt RN Position: [facility] RN Member Role: Primary Care Nurse Name: Lisseth Nassar NP Position: [facility] PCO Associate Professional Member Role: PCP Address: Address: [address] [place] [address]- Name: Edenilson Puckett MD Position: [facility] PROGRAM PROPOSALS COORDINATOR MD Member Role: Lifetime PROGRAM PROPOSALS COORDINATOR Physician Address: Address: [address] [place] [address]- Name: Jovana Park RN Position: S RN Member Role: Primary Care Nurse Name: Chidi Clark DO Position: [facility] Renal MD Member Role: Lifetime Consulting Physician Address: Address: [address] [place] [address] [address] [facility] [place] [address]- Name: Mireya Torres RN Position: S RN Member Role: Primary Care Nurse Name: Kelly Maddox RN Position: S RN Member Role: Primary Care Nurse Care Team Related Persons Name: KAYLAH MARYA Address: home [address] [place] [address] Name: MORALES HOWELL Address: home [address] [place] [address]
--- OUTSIDE RECORDS SUMMARY | 2023-09-12 11:20 | XMS_ITS | Continuity of Care Document ---
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 Start Date: 05/12/22 Status: Ordered albuterol CFC free 90 mcg/inh inhalation aerosol 2, puffs, Inhalation, 4 times a day, PRN, Dispense brand as required by insurance, # 18 Gm, [id number], Tot. Refills 11, Maintenance, 05/12/22 11:38:00 EST, Aerosol, Route to Pharmacy Electronically, [id number], [facility]... Start Date: 05/12/22 Status: Ordered albuterol-ipratropium 3 mg-0.5 mg/3 ml inhalation solution 1 vials, Inhalation, 4 times a day, # 180 mL, 11 Refills, Maintenance, 05/12/22 11:38:00 EST, [facility] #75304, 15, 1 vials Inhalation 4 times a [...] 11 Refills, Maintenance, 03/01/22 16:04:00 EST, Capsule, [facility] #59791, Partial fill upon patient request if the prescription is for a schedule II opi... Start Date: 03/01/22 Stop Date: 02/13/25 Status: Ordered apixaban 2.5 mg oral tablet 1 tablet = 2.5 mg, By Mouth, 2 times a day, # 60 tablet, 0 Refills, Maintenance, 05/28/22 8:20:00 EDT, Tablet, [facility] 3, Partial fill upon patient request [...] tablet, 11 Refills, Maintenance, 09/25/21 11:17:00 EDT, [facility] #05682, 165, cm, 09/25/21 11:04:00 EDT, Height, 96, [...] each, 11 Refills, Maintenance, 09/25/21 11:17:00 EDT, [place], [facility] #17690, 1 sprays Nares, Both 2 times a day,x30 days, 165, cm, 09/25/21 11:04:00 EDT, Height, 96, kg, 07/13/21 10:52:00 EDT, Dry... Start Date: 09/25/21 Stop Date: 09/20/22 Status: Ordered Flovent HFA 220 mcg/inh inhalation aerosol 2 puffs, Inhalation, 2 times a day, # 12 Gm, 11 Refills, Maintenance, 05/19/22 13:39:00 EST, Aerosol, [facility] #08561, Partial fill upon patient request if the [...] pain; may fill less; May fill on/after 07/13/2022, # 180 tablet, 0 Refills, Maintenance, 07/12/22 10:14:00 EDT, Tablet, [facility]... Start Date: 07/12/22 Stop Date: 08/11/22 Status: Ordered Prevacid 30 mg oral enteric [...] 05/12/22 11:38:00 EST, Route to Pharmacy Electronically, [facility] #28030, 168, cm, 05/12/2310:30:00 EST, Height, 85, kg, [...] History Type Response Tobacco Use: MARIJUANA. Sex Hospital Consult note * Event Display: Inpatient Consult Note, Non-BH Authored Date: * Event Display: Inpatient Consult Note, Non-BH Authored Date: * Event Display: Inpatient Consult Note, Non-BH Authored Date: Cardiology * Event Display: Holter Report Authored Date: * Vicki , Laxmi: PERFORM [...] Nuclear Medicine Authored Date: * Event Display: IR Special Procedures, Non-BH Authored Date: * Event Display: Non BH Radiology Results Authored Date: * Lili Arellano: PERFORM Event Display: Radiology Results Scanned Authored Date: * Sunshine Monique: PERFORM Event Display: Radiology Results Scanned Authored Date: US Lower extremity * Event Display: Ultrasound Lower Extremity Authored Date: Patient Care team information Care Team Personnel Name: Tristin Hunt RN Position: [facility] RN Member Role: Primary Care Nurse Name: Lisseth Nassar NP Position: [facility] PCO Associate Professional Member Role: PCP Address: Address: [address] [place] [address]- [place] Name: Edenilson Puckett MD Position: [facility] LACROSSE PLAYER MD Member Role: Lifetime LACROSSE PLAYER Physician Address: Address: [address] [place] [address]- [place] Name: Jovana Park RN Position: [facility] RN Member Role: Primary Care Nurse Name: Chidi Clark DO Position: [facility] Renal MD Member Role: Lifetime Consulting Physician Address: Address: [address] [place] [address] [address] [facility] [place] [address]- Name: Mireya Torres RN Position: [facility] RN Member Role: Primary Care Nurse Name: Kelly Maddox RN Position: [facility] RN Member Role: Primary Care Nurse Care Team Related Persons Name: MARYA ADRIAN Address: home [address] [place] [address] Name: MORALES HOWELL Address: home [address] [place] [address]
--- OUTSIDE RECORDS SUMMARY | 2023-09-12 11:20 | XMS_ITS | Continuity of Care Document ---
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 Refills 11, Maintenance, 11/24/17 13:49:05 EDT, Aerosol, Route to Pharmacy Electronically, [id number], [facility] [address], Compound Start Date: 11/24/17 Status: Ordered albuterol-ipratropium 3 mg-0.5 mg/3 ml inhalation solution 1 vials, Inhalation, 4 times a day, # 180 mL, 5 Refills, Maintenance, 07/30/19 11:02:00 EDT, [facility] #[id number], 15, INHALE CONTENTS OF 1 VIAL VIA NEBULIZER FOUR TIMES DAILY, 167.64, cm, 04/24/19 16:16:00 EST, Height, 100.4, kg, 08/03/18 10:1... Start Date: 07/30/19 Status: Ordered amLODIPine 10 mg oral tablet 1 tablet, By Mouth, Daily, # 30 tablet, 5 Refills, Maintenance, 05/06/20 12:30:00 EST, [facility] #91332, 167.64, cm, 03/25/20 14:59:00 EST, Height, 100.4, kg, 08/03/18 10:14:00 EDT, Dry Weight Start Date: 05/06/20 Status: Ordered aspirin 81 mg oral delayed release tablet 81 mg, 1, tablet, By Mouth, Daily, # 30 tablet, Refills 5, Tot. Refills 5, Maintenance, 11/02/19 11:39:00 EDT, Route to Pharmacy Electronically, [facility] #[id number], 167.64, cm, 11/02/19 10:58:00 EDT, Height, 100.4, kg, 08/03/18 10:14:00 EDT,... Start Date: 11/02/19 Status: Ordered bacitracin topical 500 u/gm ointment 1 application, Topically, 4 times a day, # 30 Gm, 0 Refills, Maintenance, 09/02/20 15:20:00 EDT, Ointment, [facility] #[id number], Partial fill upon patient request if the prescription is for a schedule II opioid drug., 1 application Topically 4... Start Date: 09/02/20 Stop Date: 09/12/20 Status: Ordered baclofen 10 mg oral tablet 1, tablet, By Mouth, 3 times a day, # 60 tablet, Refills 0, Tot. Refills 0, Maintenance, 02/25/20 13:59:00 EST, Route to Pharmacy Electronically, [facility] #92559, 167.64, cm, 11/12/19 15:34:00 EDT, Height, 100.4, [...] tablet, 11 Refills, Maintenance, 01/11/20 10:43:00 EDT, [facility] #[id number], 167.64, cm, 11/12/19 15:34:00 EDT, Height, 100.4, [...] DAILY, # 44 mL, 0 Refills, Maintenance, [facility]31701, 29, SPRAY TWICE IN EACH NOSTRIL FOUR [...] each, 5 Refills, Maintenance, 06/05/18 19:53:47 EDT, [place], 1 sprays Nares, Both 2 times a [...] 11 Refills, Maintenance, 03/02/19 10:19:00 EST, Capsule, [facility] #40849, 1 capsule By Mouth Daily, 167.64, cm, [...] 4 HOURS NEEDED FOR NAUSEA OR VOMITING, [facility] #87605 Start Date: 12/05/18 Status: Ordered raised toilet [...] Maintenance, 06/02/17 13:39:59, Route to Pharmacy Electronically, [id number], [facility] [address] Start Date: 06/02/17 Status: Ordered tiZANidine 2 mg oral tablet 2 mg, 1, tablet, By Mouth, Every 8 hours, PRN, # 90 tablet, Refills 3, Tot. Refills 3, Maintenance,as needed for muscle spasm, 02/08/20 9:24:00 EST, Route to Pharmacy Electronically, [facility] #[id number], Partial fill upon patient request, 167... Start [...]
--- OUTSIDE RECORDS SUMMARY | 2023-09-12 11:20 | XMS_ITS | Continuity of Care Document ---
Author Organization [facility] Address [address] [place] [address]- Care Team Providers Care Supervisor Cleaning And Annealing Name Role Phone Cesario VALDEZ, Lisseth Hancock Primary Care Physician [place] [facility] [place] - 02/26/[address] [address]- Attending Physician: Lisseth Nassar NP Admitting Physician: Lisseth Nassar NP Referring Physician: Lisseth Nassar NP Allergies, Adverse Reactions, Alerts Substance Reaction Severity Status sulfADIAZINE rash Active sertraline 1 QT wave change Active fentanyl topical passed out Active sulfa drugs rash Active Bactrim rash Active NSAIDs 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 Active 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 Immunizations Given and Recorded Vaccine Date Status [...] Anthony rded influenza virus vaccine, inactivated 1 10/13/10 Gi cecilia tetanus/diphtheria/pertussis, acel(Tdap) 05/29/13 Given Hepatitis B Vaccine (old term) 2 12/24/09 Given Hepatitis B Vaccine (old term) 10/19/04 Given 1Admin Note: VIS 10/21/09 2Admin Note: vis 09/28/2006 Medications albuterol 0.083% inhalation solution 3 mL = 2.5 mg, Inhalation, Every 6 hours, PRN Wheezing/Shortness of Breath, # 100 each, 0 Refills, Maintenance, 10/19/21 12:05:00 EDT, Solution, [facility] #[id number], 165, cm, 09/25/21 11:04:00 EDT, Height, 96, kg, 07/13/21 10:52:00 EDT, Dry We... Start Date: 10/19/21 Status: Ordered albuterol-ipratropium 3 mg-0.5 mg/3 ml inhalation solution 1 vials, Inhalation, 4 times a day, # 180 mL, 5 Refills, Maintenance, 07/30/19 11:02:00 EDT, [facility] #[id number], 15, INHALE CONTENTS OF 1 VIAL VIA [...] opioid drug. Start Date: 07/10/21 Status: Ordered amLODIPine 5 mg oral tablet 1 tablet, By Mouth, Daily, # 30 tablet, 11 Refills, Maintenance, 12/07/21 8:02:00 EDT, [facility] #[id number], 165, cm, 10/27/21 1:44:00 EDT, Height, 90.9, kg, 10/27/21 1:44:00 EDT, Dry Weight Start Date: 12/07/21 Status: Ordered amlodipine-benazepril 5 mg-10 mg oral capsule 1 capsule, By Mouth, Daily, To replace prior prescription (amlodipine)., # 30 capsule, 11 Refills, Maintenance, 04/23/21 14:51:00 EST, Capsule, [facility] #[id number], Partial fill upon patient request if the prescription is for a schedule II opi... Start Date: 04/23/21 Status: Ordered aspirin 81 mg oral delayed release tablet 81 mg, 1, tablet, By Mouth, Daily, # 30 tablet, Refills 5, Tot. Refills 5, Maintenance, 11/02/19 11:39:00 EDT, Route to Pharmacy Electronically, [facility] #[id number], 167.64, cm, 11/02/19 10:58:00 EDT, Height, 100.4, kg, 08/03/18 10:14:00 EDT,... Start Date: 11/02/19 Status: Ordered baclofen 10 mg oral tablet 10 mg, 1, tablet, By Mouth, Daily at bedtime, # 30 tablet, Refills 5, Tot. Refills 5, Maintenance, 02/09/22 13:45:00 EST, Route to Pharmacy Electronically, [facility] #[id number], Partial fill upon patient request if the prescription is for a rose... Start Date: 02/09/22 Stop Date: 08/08/22 Status: Ordered Bedside Commode See Instructions, # 1 each, Maintenance, please dispense bedside commode Dx M48.00, M54.5, R10.9, M17.10; length of need 99, 04/16/19 11:58:00 EST, Compound Start Date: 04/16/19 Status: Ordered cetirizine 10 mg oral tablet 1 tablet, By Mouth, Daily, # 30 tablet, 11 Refills, Maintenance, 09/25/21 11:17:00 EDT, [facility] #[id number], 165, cm, 09/25/21 11:04:00 EDT, Height, 96, [...] drug. Start Date: 07/10/21 Status: Ordered EpiPen 2-Chandrkaant 0.3 mg injectable kit = 0.3 mg, [...] each, 11 Refills, Maintenance, 09/25/21 11:17:00 EDT, [facility] #[id number], 1 sprays Nares, Both 2 times a day,x30 days, 165, cm, 09/25/21 11:04:00 EDT, Height, 96, kg, 07/13/21 10:52:00 EDT, Dry... Start Date: 09/25/21 Stop Date: 09/20/22 Status: Ordered fluconazole 150 mg oral tablet 1 tablet = 150 mg, By Mouth, Once, Repeat dose if still having symptoms in 72 hours, # 2 tablet, 0 Refills, Soft Stop, 02/09/22 13:43:00 EST, Tablet, [facility] #[id number], Partial fill upon patient request if the prescription is for a schedule... Start Date: 02/09/22 Status: Ordered fluocinonide 0.05% topical cream 1 applicator, Topically, 3 times a day, # 30 Gm, 3 Refills, Maintenance, 06/02/17 13:39:56, 1 applicator Topically 3 times a day Start Date: 06/02/17 Status: Ordered fluocinonide 0.05% topical ointment 1 application, Topically, 3 times a day, # 30 Gm, 11 Refills, Acute 03/13/22 13:51:00 EST, 12/14/2212:50:00 EDT, Ointment, [facility] #[id number], Partial fill upon patient request if the prescription is for a schedule II opioid drug., 1 applica... Start Date: 12/14/21 Stop Date: 03/13/22 Status: Ordered Home Blood [...] 11 Refills, Maintenance, 03/02/19 10:19:00 EST, Capsule, [facility] #[id number], 1 capsule By Mouth Daily, 167.64, cm, [...] EST, Compound Start Date: 05/07/19 Status: Ordered Nitro-Dur 0.2 mg/hr transdermal film, extended release 1 patch, Daily, 0 Refills, Maintenance, 09/24/21 14:42:00 EDT, Partial fill upon patient request ifthe prescription is for a schedule II opioid drug. Start Date: 09/24/21 Status: Ordered ondansetron 8 mg oral tablet [...] chronic low back pain; may fill less; may fill on/after 02/18/2022; max 6/day, # 126 tablet, 0 Refills, Maintenance, 02/16/22 9:09:00 EST, T... Start Date: 02/16/22 Status: Ordered Paxlovid 150 mg-100 mg oral tablet See Instructions, 300mg nirmatrelvir (two 150mg tablets) with 100mg ritonavir (one tablet). All 3 tablets taken together twice daily By Mouth for 5 days, with or without food, # 30 tablet, 0 Refills,Maintenance, 10/18/21 16:41:00 EDT, [facility]... Start Date: 10/18/21 Status: Ordered Prevacid 30 mg oral enteric [...] tablet, Refills 11, Tot. Refills 11, Maintenance, 09/25/21 11:17:00 EDT, Route to Pharmacy Electronically, [facility] #[id number], 165, cm, 09/25/2210:04:00 EDT, Height, 96, kg, 07/13/21 10:52:00 EDT... Start Date: 09/25/21 Status: Ordered tiZANidine 2 mg oral tablet 2 mg, 1, tablet, By Mouth, Every 8 hours, PRN, # 90 tablet, Refills 3, Tot. Refills 3, Maintenance,as needed for muscle spasm, 06/18/21 10:33:00 EDT, Route to Pharmacy Electronically, [facility] #[id number], Partial fill upon patient request, 16... Start [...] knee Confirmed Active Controlled substance agreement signed 04/23/21 Confirmed Active Palpitation Confirmed Active COVID-19 virus detected Confirmed Active COVID-19 virus detected 2 Confirmed Active Allergic sinusitis 3 Confirmed Active Spinal stenosis Confirmed Active 1began in 3rd [facility] 10/21/2020 3allergy testing showed dust mites, mold, cats, dogs, maple, oak; starting immunotherapy 07/2015 Social History Social History Type Response Tobacco Use: MARIJUANA. Sex Female Patient Care team information Care Team Personnel Name: Lisseth Nassar NP Position: [facility] PCO Associate Professional Member Role: PCP Address: Address: [address] [place] [address]- Name: Lavern SPENCER, Edenilson Chen Position: [facility] AUDIO PRODUCTION ENGINEER MD Member Role: Lifetime AUDIO PRODUCTION ENGINEER Physician Address: Address: [address] [place] [address] [address]- Name: Chidi Clark DO Position: [facility] Renal MD Member Role: Lifetime Consulting Physician Address: Address: [address] [place] [address] [address] [facility] [place] [address]- [place] Name: Starr Harper RN Position: [facility] RN Member Role: Primary Care Nurse Care Team Related Persons Name: MARYA ADRIAN Address: home [address] [place] [id number]
--- OUTSIDE RECORDS SUMMARY | 2023-09-12 11:20 | XMS_ITS | Continuity of Care Document ---
Author Organization [facility] Address [address] [place] [address]- Care Team Providers Care Interface Developer Name Role Phone Cesario VALDEZ, Lisseth Terrell Primary Care Physician [phone] Encounter [facility] [place] Date(s): 04/17/19 - 06/10/[address] [address]- [facility] Attending Physician: Not on Staff, Attending MD Allergies, Adverse Reactions, Alerts Substance Reaction Severity Status sulfADIAZINE rash Active morphine rash & swelling Active sertraline 1 QT wave change Active sulfa drugs rash Active Bactrim rash Active NSAIDs 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 Active 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 Refills 11, Maintenance, 11/24/17 13:49:05 EDT, Aerosol, Route to Pharmacy Electronically, [id number], [facility] [id number], Compound Start Date: 11/24/17 Status: Ordered albuterol-ipratropium 3 mg-0.5 mg/3 ml inhalation solution 3 mL, Inhalation, 4 times a day, # 60 each, 6 Refills, Maintenance, 02/17/18 14:50:32 EST, Solution, 3 mL Inhalation 4 times a day Start Date: 02/17/18 Status: Ordered amLODIPine 10 mg oral tablet 1 tablet, By Mouth, Daily, # 30 tablet, 0 Refills, Maintenance, 05/16/19 10:09:00 EST, [facility] #[id number], 167.64, cm, 04/24/19 16:16:00 EST, Height, 100.4, kg, 08/03/18 10:14:00 EDT, Dry Weight Start Date: 05/16/19 Status: Ordered baclofen 10 mg oral tablet 1, tablet, By Mouth, 3 times a day, # 60 tablet, Refills 0, Tot. Refills 0, Maintenance, 04/16/19 14:21:00 EST, Route to Pharmacy Electronically, [facility] #[id number], 167.64, cm, 03/02/19 10:23:00 EST, Height, 100.4, kg, 08/03/18 10:14:00 EDT,... Start Date: 04/16/19 Status: Ordered Bedside Commode See Instructions, # 1 each, Maintenance, please dispense bedside commode Dx M48.00, M54.5, R10.9, M17.10; length of need 99, 04/16/19 11:58:00 EST, Compound Start Date: 04/16/19 Status: Ordered cetirizine 10 mg oral tablet 1 tablet = 10 mg, By Mouth, Daily, # 30 tablet, 5 Refills, Maintenance, 04/16/19 13:06:00 EST, Tablet, [facility] #35154, 167.64, cm, 03/02/19 10:23:00 EST, Height, 100.4, [...] R60.0, Compound Start Date: 09/11/18 Status: Ordered Depakote 500 mg oral enteric coated tablet 1 tablet = 500 mg, By Mouth, 2 times a day, 0 Refills, Maintenance, 06/13/17 14:38:25 EDT Start Date: 06/13/17 Status: Ordered DuoNeb 3 mg-0.5 mg/3 ml [...] each, 5 Refills, Maintenance, 06/05/18 19:53:47 EDT, [place], 1 sprays Nares, Both 2 times a [...] 11 Refills, Maintenance, 03/02/19 10:19:00 EST, Capsule, [facility] #[id number], 1 capsule By Mouth Daily, 167.64, cm, [...] 4 HOURS NEEDED FOR NAUSEA OR VOMITING, [facility] #[id number] Start Date: 12/05/18 Status: Ordered raised toilet seat raised toilet seat, See Instructions, # 1 each, Refills 0, Tot. Refills 0, Maintenance, please dispense one raised toilet seat Dx M48, M54.16, M54.5, 03/20/18 13:26:38 EST, Compound Start Date: 03/20/18 Status: Ordered Saline Mist 0.65% nasal spray 2 sprays, Nares, Both, 4 times a day, # 1 each, 11 Refills, Maintenance, 05/19/18 9:17:03 EST, 2 sprays Nares, Both 4 times a day Start Date: 05/19/18 Status: Ordered Shower Bar See Instructions, # 1 each, Maintenance, please dispense shower bar Dx M48.00, M54.5, R10.9, M17.10; length of need 99, 04/16/19 11:58:00 EST, Compound Start Date: 04/16/19 Status: Ordered Singulair 10 mg oral tablet 10 mg, 1, tablet, By Mouth, Daily in PM, # 30 tablet, Refills 5, Tot. Refills 5, Maintenance, 06/02/17 13:39:59, Route to Pharmacy Electronically, [id number], [facility] Start Date: 06/02/17 Status: Ordered Transfer Bench [...]
--- OUTSIDE RECORDS SUMMARY | 2023-09-12 11:20 | XMS_ITS | Continuity of Care Document ---
Author Organization [facility] Address [address] [place] [address]- Care Team Providers Care Wool Hat Hydraulicker Name Role Phone Cesario VALDEZ, Lisseth Hancock Primary Care Physician [phone] Encounter [facility] Date(s): 01/27/23 - 02/26/[address] [address]- Allergies, Adverse Reactions, Alerts Substance Reaction Severity Status sulfADIAZINE rash Active sertraline 1 QT wave change Active fentanyl topical passed out Active sulfa drugs rash Active Haldol Agitation Active Bactrim rash Active NSAIDs 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 Active 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 Start Date: 01/26/23 Status: Ordered albuterol CFC free 90 mcg/inh inhalation aerosol 2, puffs, Inhalation, 4 times a day, PRN, Dispense brand as required by insurance, # 1 each, Refills 11, Tot. Refills 11, Maintenance, 01/26/23 14:00:00 EST, Aerosol, Route to Pharmacy Electronically, [id number], [facility]. Start Date: 01/26/23 Status: Ordered albuterol-ipratropium 3 mg-0.5 mg/3 ml inhalation solution 1 vials, Inhalation, 4 times a day, # 180 mL, 11 Refills, Maintenance, 01/27/23 9:25:00 EST, [facility] #[id number], 15, 1 vials Inhalation 4 times a day, 165, cm, 01/26/23 13:31:00 EST, Height,88.2, kg, 05/26/22 7:52:00 EDT, Dry Weight Start Date: 01/27/23 Status: Ordered Ambien 5 mg oral tablet 1 tablet = 5 mg, By Mouth, Daily at bedtime, PRN Insomnia, 0 Refills, Maintenance, 04/29/22 11:47:00 EDT, Partial fill upon patient request [...] tablet, 6 Refills, Maintenance, 12/07/22 16:46:00 EDT, [facility] #[id number], 165, cm, 12/06/22 17:39:00 EDT, Height, 88.2, kg, 05/26/22 7:52:00EDT, Dry Weight Start Date: 12/07/22 Status: Ordered amlodipine-benazepril 5 mg-10 mg oral capsule 1 capsule, By Mouth, Daily, To replace prior prescription (amlodipine)., # 90 capsule, 11 Refills, Maintenance, 03/01/22 16:04:00 EST, Capsule, [facility] #[id number], Partial fill upon patient request if the [...] tablet, 3 Refills, Maintenance, 01/26/23 14:00:00 EST, [facility] #[id number], 165, cm, 01/26/23 13:31:00 EST, Height, 88.2, [...] each, 11 Refills, Maintenance, 09/25/21 11:17:00 EDT, [place], [facility] #[id number], 1 sprays Nares, Both 2 times a day,x30 days, 165, cm, 09/25/21 11:04:00 EDT, Height, 96, kg, 07/13/21 10:52:00 EDT, Dry... Start Date: 09/25/21 Stop Date: 09/20/22 Status: Ordered fluconazole 150 mg oral tablet 1 tablet = 150 mg, By Mouth, Once, Repeat dose if still having symptoms in 72 hours, # 2 tablet, 1 Refills, Soft Stop, 01/26/23 14:19:00 EST, Tablet, [facility] #[id number], Partial fill upon patient request if the [...] 11 Refills, Maintenance, 01/26/23 14:04:00 EST, Aerosol, [facility] #[id number], Partial fill upon patient request if the prescription is for a s... Start Date: 01/26/23 Status: Ordered mupirocin 2% topical ointment 1 application, Topically, 3 times a day, # 30 Gm, 2 Refills, Acute 03/13/23 15:24:00 EST, 09/01/22 15:23:00 EDT, Ointment, [facility] #39249, Partial fill upon patient request if the [...] capsule, 4 Refills, Maintenance, 01/26/23 14:02:00 EST, [facility] #48820, 165, cm, 01/26/23 13:31:00 EST, Height, 88.2, [...] 01/26/23 14:02:00 EST, Route to Pharmacy Electronically, [facility] #[id number], 165, cm, 01/26/23 13:31:00 EST, Height, 88.2, [...] Team Personnel Name: Tristin Hunt RN Position: [facility] RN Member Role: Primary Care Nurse Name: Lisseth Nassar NP Position: [facility] PCO Associate Professional Member Role: PCP Address: Address: [address] [place] [address]- Name: Edenilson Puckett MD Position: [facility] POLICY CHANGE CLERK MD Member Role: [employer]etime POLICY CHANGE CLERK Physician Address: Address: [address] [place] [address]- Name: Jovana Park RN Position: [facility] SN RN Member Role: Primary Care Nurse Name: Chidi Clark DO Position: [facility] Renal MD Member Role: Lifetime Consulting Physician Address: Address: [address] [place] [address] [address] [facility] [place] [address]- Name: Mireya Torres RN Position: S RN Member Role: Primary Care Nurse Name: Starr Harper RN Position: [facility] SN RN Member Role: Primary Care Nurse Name: Kelly Maddox RN Position: S RN Member Role: Primary Care Nurse Care Team Related Persons Name: MARYA ADRIAN Address: home [address] [place] [address] Name: MORALES HOWELL Address: home [address] [place] [id number]
--- OUTSIDE RECORDS SUMMARY | 2023-09-12 11:20 | XMS_ITS | Continuity of Care Document ---
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 Refills 11, Maintenance, 11/24/17 13:49:05 EDT, Aerosol, Route to Pharmacy Electronically, [id number], [facility] 289[facility], Compound Start Date: 11/24/17 Status: Ordered albuterol-ipratropium 3 mg-0.5 mg/3 ml inhalation solution 1 vials, Inhalation, 4 times a day, # 180 mL, 5 Refills, Maintenance, 07/30/19 11:02:00 EDT, [facility] #[id number], 15, INHALE CONTENTS OF 1 VIAL VIA NEBULIZER FOUR TIMES DAILY, 167.64, cm, 04/24/19 16:16:00 EST, Height, 100.4, kg, 08/03/18 10:1... Start Date: 07/30/19 Status: Ordered amLODIPine 10 mg oral tablet 1 tablet, By Mouth, Daily, # 30 tablet, 6 Refills, Maintenance, 10/04/19 12:22:00 EDT, [facility] #[id number], 167.64, cm, 04/24/19 16:16:00 EST, Height, 100.4, kg, 08/03/18 10:14:00 EDT, Dry Weight Start Date: 10/04/19 Status: Ordered aspirin 81 mg oral delayed release tablet 81 mg, 1, tablet, By Mouth, Daily, # 30 tablet, Refills 5, Tot. Refills 5, Maintenance, 11/02/19 11:39:00 EDT, Route to Pharmacy Electronically, [facility] #[id number], 167.64, cm, 11/02/19 10:58:00 EDT, Height, 100.4, kg, 08/03/18 10:14:00 EDT,... Start Date: 11/02/19 Status: Ordered baclofen 10 mg oral tablet 1, tablet, By Mouth, 3 times a day, # 60 tablet, Refills 0, Tot. Refills 0, Maintenance, 02/25/20 13:59:00 EST, Route to Pharmacy Electronically, [facility] #[id number], 167.64, cm, 11/12/19 15:34:00 EDT, Height, 100.4, [...] tablet, 11 Refills, Maintenance, 01/11/20 10:43:00 EDT, [facility] #[id number], 167.64, cm, 11/12/19 15:34:00 EDT, Height, 100.4, [...] DAILY, # 44 mL, 0 Refills, Maintenance, [facility] #12752, 29, SPRAY TWICE IN EACH NOSTRIL FOUR [...] each, 5 Refills, Maintenance, 06/05/18 19:53:47 EDT, [place], 1 sprays Nares, Both 2 times a [...] 11 Refills, Maintenance, 03/02/19 10:19:00 EST, Capsule, [facility] #[id number], 1 capsule By Mouth Daily, 167.64, cm, [...] 4 HOURS NEEDED FOR NAUSEA OR VOMITING, [facility] #[id number] Start Date: 12/05/18 Status: Ordered raised toilet [...] Maintenance, 06/02/17 13:39:59, Route to Pharmacy Electronically, [id number], [facility] [address] Start Date: 06/02/17 Status: Ordered tiZANidine 2 mg oral tablet 2 mg, 1, tablet, By Mouth, Every 8 hours, PRN, # 90 tablet, Refills 3, Tot. Refills 3, Maintenance,as needed for muscle spasm, 02/08/20 9:24:00 EST, Route to Pharmacy Electronically, [facility] #[id number], Partial fill upon patient request, 167... Start [...]
--- OUTSIDE RECORDS SUMMARY | 2023-09-12 11:20 | XMS_ITS | Continuity of Care Document ---
Author Organization [facility] Address [address] [place] [address]- Care Team Providers Care Mechanical Shovel Operator Name Role Phone Cesario VALDEZ, Lisseth Hancock Primary Care Physician Encounter [facility] [place] Date(s): 09/02/20 - 10/02/[address] [address]- Attending Physician: Not on Staff, Attending MD Allergies, Adverse Reactions, Alerts Substance Reaction Severity Status sulfADIAZINE rash Active morphine rash & swelling Active sertraline 1 QT wave change Active sulfa drugs rash Active Bactrim rash Active NSAIDs 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 Active 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 Refills 11, Maintenance, 11/24/17 13:49:05 EDT, Aerosol, Route to Pharmacy Electronically, [id number], [facility] [address], Compound Start Date: 11/24/17 Status: Ordered albuterol-ipratropium 3 mg-0.5 mg/3 ml inhalation solution 1 vials, Inhalation, 4 times a day, # 180 mL, 5 Refills, Maintenance, 07/30/19 11:02:00 EDT, [facility] #[id number], 15, INHALE CONTENTS OF 1 VIAL VIA NEBULIZER FOUR TIMES DAILY, 167.64, cm, 04/24/19 16:16:00 EST, Height, 100.4, kg, 08/03/18 10:1... Start Date: 07/30/19 Status: Ordered amLODIPine 10 mg oral tablet 1 tablet, By Mouth, Daily, # 30 tablet, 5 Refills, Maintenance, 05/06/20 12:30:00 EST, [facility] #[id number], 167.64, cm, 03/25/20 14:59:00 EST, Height, 100.4, kg, 08/03/18 10:14:00 EDT, Dry Weight Start Date: 05/06/20 Status: Ordered aspirin 81 mg oral delayed release tablet 81 mg, 1, tablet, By Mouth, Daily, # 30 tablet, Refills 5, Tot. Refills 5, Maintenance, 11/02/19 11:39:00 EDT, Route to Pharmacy Electronically, [facility] #08631, 167.64, cm, 11/02/19 10:58:00 EDT, Height, 100.4, kg, 08/03/18 10:14:00 EDT,... Start Date: 11/02/19 Status: Ordered bacitracin topical 500 u/gm ointment 1 application, Topically, 4 times a day, # 30 Gm, 0 Refills, Maintenance, 09/02/20 15:20:00 EDT, Ointment, [facility] #34517, Partial fill upon patient request if the prescription is for a schedule II opioid drug., 1 application Topically 4... Start Date: 09/02/20 Stop Date: 09/12/20 Status: Ordered baclofen 10 mg oral tablet 1, tablet, By Mouth, 3 times a day, # 60 tablet, Refills 0, Tot. Refills 0, Maintenance, 02/25/20 13:59:00 EST, Route to Pharmacy Electronically, [facility] #44261, 167.64, cm, 11/12/19 15:34:00 EDT, Height, 100.4, [...] tablet, 11 Refills, Maintenance, 01/11/20 10:43:00 EDT, [facility] #65506, 167.64, cm, 11/12/19 15:34:00 EDT, Height, 100.4, [...] DAILY, # 44 mL, 0 Refills, Maintenance, [facility] #02433, 29, SPRAY TWICE IN EACH NOSTRIL FOUR [...] each, 5 Refills, Maintenance, 06/05/18 19:53:47 EDT, [place], 1 sprays Nares, Both 2 times a [...] 11 Refills, Maintenance, 03/02/19 10:19:00 EST, Capsule, [facility] #71734, 1 capsule By Mouth Daily, 167.64, cm, [...] 4 HOURS NEEDED FOR NAUSEA OR VOMITING, [facility] #55473 Start Date: 12/05/18 Status: Ordered raised toilet [...] Maintenance, 06/02/17 13:39:59, Route to Pharmacy Electronically, [id number], [facility] [address] Start Date: 06/02/17 Status: Ordered tiZANidine 2 mg oral tablet 2 mg, 1, tablet, By Mouth, Every 8 hours, PRN, # 90 tablet, Refills 3, Tot. Refills 3, Maintenance,as needed for muscle spasm, 02/08/20 9:24:00 EST, Route to Pharmacy Electronically, [facility] #60575, Partial fill upon patient request, 167... Start [...]
--- OUTSIDE RECORDS SUMMARY | 2023-09-12 11:20 | XMS_ITS | Continuity of Care Document ---
Author Organization [facility] Address [address] [place] [address]- Care Team Providers Care Press Manager Name Role Phone Cesario VALDEZ, Lisseth Hancock Primary Care Physician Encounter [facility] Date(s): 03/30/22 - 04/29/22 [facility] [address] [place] [address]- [place] Allergies, Adverse Reactions, Alerts Substance Reaction Severity Status sulfADIAZINE rash Active sertraline 1 QT wave change Active fentanyl topical passed out Active sulfa drugs rash Active Haldol Agitation Active Bactrim rash Active NSAIDs 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 Active 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 Start Date: 10/19/21 Status: Ordered albuterol-ipratropium 3 mg-0.5 mg/3 ml inhalation solution 1 vials, Inhalation, 4 times a day, # 180 mL, 5 Refills, Maintenance, 07/30/19 11:02:00 EDT, [facility] #02459, 15, INHALE CONTENTS OF 1 VIAL VIA [...] tablet, 11 Refills, Maintenance, 12/07/21 8:02:00 EDT, [facility] #64379, 165, cm, 10/27/21 1:44:00 EDT, Height, 90.9, kg, 10/27/21 1:44:00 EDT, Dry Weight Start Date: 12/07/21 Status: Ordered amlodipine-benazepril 5 mg-10 mg oral capsule 1 capsule, By Mouth, Daily, To replace prior prescription (amlodipine)., # 90 capsule, 11 Refills, Maintenance, 03/01/22 16:04:00 EST, Capsule, [facility] #02425, Partial fill upon patient request if the prescription is for a schedule II opi... Start Date: 03/01/22 Stop Date: 02/13/25 Status: Ordered aspirin 81 mg oral delayed release tablet 81 mg, 1, tablet, By Mouth, Daily, # 30 tablet, Refills 5, Tot. Refills 5, Maintenance, 11/02/19 11:39:00 EDT, Route to Pharmacy Electronically, [facility] #74194, 167.64, cm, 11/02/19 10:58:00 EDT, Height, 100.4, kg, 08/03/18 10:14:00 EDT,... Start Date: 11/02/19 Status: Ordered baclofen 10 mg oral tablet 10 mg, 1, tablet, By Mouth, Daily at bedtime, # 30 tablet, Refills 5, Tot. Refills 5, Maintenance, 02/09/22 13:45:00 EST, Route to Pharmacy Electronically, [facility] #15206, Partial fill upon patient request if the [...] tablet, 11 Refills, Maintenance, 09/25/21 11:17:00 EDT, [facility] #37873, 165, cm, 09/25/21 11:04:00 EDT, Height, 96, [...] Refills 11, Tot. Refills 11, Maintenance, large briefs; Dx R32, N30.10, 04/14/22 12:45:00 EST, Supply Start Date: 04/14/22 Status: Ordered disposable andrea pads disposable andrea [...] each, 11 Refills, Maintenance, 09/25/21 11:17:00 EDT, [place], [facility] #30941, 1 sprays Nares, Both 2 times a day,x30 days, 165, cm, 09/25/21 11:04:00 EDT, Height, 96, kg, 07/13/21 10:52:00 EDT, Dry... Start Date: 09/25/21 Stop Date: 09/20/22 Status: Ordered fluconazole 150 mg oral tablet 1 tablet = 150 mg, By Mouth, Once, Repeat dose if still having symptoms in 72 hours, # 2 tablet, 0 Refills, Soft Stop, 02/09/22 13:43:00 EST, Tablet, [facility] #05205, Partial fill upon patient request if the prescription is for a schedule... Start Date: 02/09/22 Status: Ordered fluconazole 150 mg oral tablet 1 tablet = 150 mg, By Mouth, Once, repeat dose if still having symptoms in 72 hours, # 2 tablet, 2 Refills, Soft Stop, 04/14/22 10:57:00 EST, Tablet, [facility] #09092, Partial fill upon patient request if the prescription is for a schedule... Start Date: 04/14/22 Status: Ordered fluocinonide 0.05% topical cream 1 [...] 11 Refills, Maintenance, 03/02/19 10:19:00 EST, Capsule, [facility] #52045, 1 capsule By Mouth Daily, 167.64, cm, [...] pain; may fill less; May fill on/after 04/20/2022, # 180 tablet, 0 Refills, Maintenance, 04/14/22 12:38:00 EST, Tablet, [facility]... Start Date: 04/14/22 Stop Date: 05/14/22 Status: Ordered oxyCODONE 15 mg oral tablet 1 tablet = 15 mg, By Mouth, Every 6 hours, 0 Refills, Maintenance, 05/14/21 8:08:00 EST, Partial fill upon patient request if the prescription is for a schedule II opioid drug. Start Date: 05/14/21 Status: Ordered Paxlovid 150 mg-100 mg oral tablet See Instructions, 300mg nirmatrelvir (two 150mg tablets) with 100mg ritonavir (one tablet). All 3 tablets taken together twice daily By Mouth for 5 days, with or without food, # 30 tablet, 0 Refills,Maintenance, 10/18/21 16:41:00 EDT, [facility] Start Date: 10/18/21 Status: Ordered Prevacid [...] 09/25/21 11:17:00 EDT, Route to Pharmacy Electronically, [facility] #[id number], 165, cm, 09/25/2210:04:00 EDT, Height, 96, kg, 07/13/21 10:52:00 EDT... Start Date: 09/25/21 Status: Ordered tiZANidine 2 mg oral tablet 2 mg, 1, tablet, By Mouth, Every 8 hours, PRN, # 90 tablet, Refills 3, Tot. Refills 3, Maintenance,as needed for muscle spasm, 06/18/21 10:33:00 EDT, Route to Pharmacy Electronically, [facility] #[id number], Partial fill upon patient request, 16... Start [...] Team Personnel Name: Lisseth Nassar NP Position: [facility] PCO Associate Professional Member Role: PCP Address: Address: [address] [place] [address]- [place] Name: Edenilson Puckett MD Position: [facility] PARACHUTE ACCESSORIES ATTACHER MD Member Role: [employer]ACHUTE [employer]ESS[employer] ATTACHER Physician Address: Address: [address] [place], [place] [address] [place] [address]- [place] Name: Chidi Clark DO Position: [facility] Renal MD Member Role: [employer] Consulting Physician Address: Address: [address] [facility] [place] [address]- [place] Name: Starr Harper RN Position: [facility] RN Member Role: Primary Care Nurse Care Team Related Persons Name: KAYLAH MARYA Address: home [address] [place] [id number]
--- OUTSIDE RECORDS SUMMARY | 2023-09-12 11:20 | XMS_ITS | Continuity of Care Document ---
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 Refills 11, Maintenance, 11/24/17 13:49:05 EDT, Aerosol, Route to Pharmacy Electronically, [id number], [facility] [address], Compound Start Date: 11/24/17 Status: Ordered albuterol-ipratropium 3 mg-0.5 mg/3 ml inhalation solution 1 vials, Inhalation, 4 times a day, # 180 mL, 5 Refills, Maintenance, 07/30/19 11:02:00 EDT, [facility] #28453, 15, INHALE CONTENTS OF 1 VIAL VIA NEBULIZER FOUR TIMES DAILY, 167.64, cm, 04/24/19 16:16:00 EST, Height, 100.4, kg, 08/03/18 10:1... Start Date: 07/30/19 Status: Ordered amLODIPine 10 mg oral tablet 1 tablet, By Mouth, Daily, # 90 tablet, 1 Refills, Maintenance, 01/27/21 9:34:00 EST, [facility] #43005, 167.64, cm, 09/03/20 14:59:00 EDT, Height Start Date: 01/27/21 Status: Ordered aspirin 81 mg oral delayed release tablet 81 mg, 1, tablet, By Mouth, Daily, # 30 tablet, Refills 5, Tot. Refills 5, Maintenance, 11/02/19 11:39:00 EDT, Route to Pharmacy Electronically, [facility] #[id number], 167.64, cm, 11/02/19 10:58:00 EDT, Height, 100.4, kg, 08/03/18 10:14:00 EDT,... Start Date: 11/02/19 Status: Ordered bacitracin topical 500 u/gm ointment 1 application, Topically, 4 times a day, # 30 Gm, 0 Refills, Maintenance, 09/02/20 15:20:00 EDT, Ointment, [facility] #41453, Partial fill upon patient request if the prescription is for a schedule II opioid drug., 1 application Topically 4... Start Date: 09/02/20 Stop Date: 09/12/20 Status: Ordered baclofen 10 mg oral tablet 1, tablet, By Mouth, 3 times a day, # 60 tablet, Refills 0, Tot. Refills 0, Maintenance, 02/25/20 13:59:00 EST, Route to Pharmacy Electronically, [facility] #19292, 167.64, cm, 11/12/19 15:34:00 EDT, Height, 100.4, [...] tablet, 11 Refills, Maintenance, 01/11/20 10:43:00 EDT, [facility] #21827, 167.64, cm, 11/12/19 15:34:00 EDT, Height, 100.4, [...] DAILY, # 44 mL, 0 Refills, Maintenance, [facility] #33137, 29, SPRAY TWICE IN EACH NOSTRIL FOUR [...] each, 5 Refills, Maintenance, 06/05/18 19:53:47 EDT, [place], 1 sprays Nares, Both 2 times a [...] 11 Refills, Maintenance, 03/02/19 10:19:00 EST, Capsule, [facility] #87838, 1 capsule By Mouth Daily, 167.64, cm, [...] 4 HOURS NEEDED FOR NAUSEA OR VOMITING, [facility] #28183 Start Date: 12/05/18 Status: Ordered raised toilet [...] Maintenance, 06/02/17 13:39:59, Route to Pharmacy Electronically, [id number], [facility] [address] Start Date: 06/02/17 Status: Ordered tiZANidine 2 mg oral tablet 2 mg, 1, tablet, By Mouth, Every 8 hours, PRN, # 90 tablet, Refills 3, Tot. Refills 3, Maintenance,as needed for muscle spasm, 01/30/21 8:11:00 EST, Route to Pharmacy Electronically, [facility] #61608, Partial fill upon patient request, 167... Start [...]
--- OUTSIDE RECORDS SUMMARY | 2023-09-12 11:21 | XMS_ITS | Continuity of Care Document ---
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 Immunizations Given and Recorded Vaccine Date Status [...] Given Hepatitis B Vaccine (old term) 2 10/13/10 Given Hepatitis B Vaccine (old term) 10/19/04 Given 1Admin Note: VIS 10/21/09 2Admin Note: vis 09/28/2006 Medications albuterol 0.083% inhalation solution 3 mL = 2.5 mg, Inhalation, Every 6 hours, # 120 each, 5 Refills, Maintenance, 05/07/19 10:46:00 EST, Solution, [facility] #[id number], 167.64, cm, 04/24/19 16:16:00 EST, Height, 100.4, kg, 08/03/18 10:14:00 EDT, Dry Weight Start Date: 05/07/19 Status: Ordered albuterol CFC free 90 mcg/inh inhalation aerosol 2, puffs, Inhalation, 4 times a day, PRN, # 25 Gm, Refills 11, Tot. Refills 11, Maintenance, 11/24/17 13:49:05 EDT, Aerosol, Route to Pharmacy Electronically, [id number], [facility] [address], Compound Start Date: 11/24/17 Status: Ordered albuterol-ipratropium 3 mg-0.5 mg/3 ml inhalation solution 1 vials, Inhalation, 4 times a day, # 180 mL, 5 Refills, Maintenance, 07/30/19 11:02:00 EDT, [facility] #10149, 15, INHALE CONTENTS OF 1 VIAL VIA NEBULIZER FOUR TIMES DAILY, 167.64, cm, 04/24/19 16:16:00 EST, Height, 100.4, kg, 08/03/18 10:1... Start Date: 07/30/19 Status: Ordered amLODIPine 10 mg oral tablet 1 tablet, By Mouth, Daily, # 30 tablet, 5 Refills, Maintenance, 05/06/20 12:30:00 EST, [facility] #60821, 167.64, cm, 03/25/20 14:59:00 EST, Height, 100.4, kg, 08/03/18 10:14:00 EDT, Dry Weight Start Date: 05/06/20 Status: Ordered aspirin 81 mg oral delayed release tablet 81 mg, 1, tablet, By Mouth, Daily, # 30 tablet, Refills 5, Tot. Refills 5, Maintenance, 11/02/19 11:39:00 EDT, Route to Pharmacy Electronically, [facility] #[id number], 167.64, cm, 11/02/19 10:58:00 EDT, Height, 100.4, kg, 08/03/18 10:14:00 EDT,... Start Date: 11/02/19 Status: Ordered bacitracin topical 500 u/gm ointment 1 application, Topically, 4 times a day, # 30 Gm, 0 Refills, Maintenance, 09/02/20 15:20:00 EDT, Ointment, [facility] #23930, Partial fill upon patient request if the prescription is for a schedule II opioid drug., 1 application Topically 4... Start Date: 09/02/20 Stop Date: 09/12/20 Status: Ordered baclofen 10 mg oral tablet 1, tablet, By Mouth, 3 times a day, # 60 tablet, Refills 0, Tot. Refills 0, Maintenance, 02/25/20 13:59:00 EST, Route to Pharmacy Electronically, [facility] #[id number], 167.64, cm, 11/12/19 15:34:00 EDT, Height, 100.4, [...] tablet, 11 Refills, Maintenance, 01/11/20 10:43:00 EDT, [facility] #74228, 167.64, cm, 11/12/19 15:34:00 EDT, Height, 100.4, [...] DAILY, # 44 mL, 0 Refills, Maintenance, [facility]06[facility], 29, SPRAY TWICE IN EACH NOSTRIL FOUR [...] each, 5 Refills, Maintenance, 06/05/18 19:53:47 EDT, [place], 1 sprays Nares, Both 2 times a [...] 11 Refills, Maintenance, 03/02/19 10:19:00 EST, Capsule, [facility] #83655, 1 capsule By Mouth Daily, 167.64, cm, [...] 4 HOURS NEEDED FOR NAUSEA OR VOMITING, [facility] #70864 Start Date: 12/05/18 Status: Ordered raised toilet [...] Maintenance, 06/02/17 13:39:59, Route to Pharmacy Electronically, [id number], [facility] [address] Start Date: 06/02/17 Status: Ordered tiZANidine 2 mg oral tablet 2 mg, 1, tablet, By Mouth, Every 8 hours, PRN, # 90 tablet, Refills 3, Tot. Refills 3, Maintenance,as needed for muscle spasm, 02/08/20 9:24:00 EST, Route to Pharmacy Electronically, [facility] #22396, Partial fill upon patient request, 167... Start [...]
--- OUTSIDE RECORDS SUMMARY | 2023-09-12 11:21 | XMS_ITS | Continuity of Care Document ---
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 Active Bactrim rash Active 1 changed 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 Immunizations Given and Recorded Vaccine Date Status [...] inactivated 1 12/24/09 Gi cec[facility] tetanus/diphtheria/pertussis, acel(Tdap) 3/18/14 Given Hepatitis B Vaccine (old term) 2 12/24/09 Given Hepatitis B Vaccine (old term) 10/19/04 Given 1Admin Note: VIS 10/21/09 2Admin Note: vis 09/28/2006 Medications albuterol 0.083% inhalation solution 3 mL = 2.5 mg, Inhalation, Every 6 hours, # 120 each, 5 Refills, Maintenance, 05/07/19 10:46:00 EST, Solution, [facility] #[id number], 167.64, cm, 04/24/19 16:16:00 EST, Height, 100.4, kg, 08/03/18 10:14:00 EDT, Dry Weight Start Date: 05/07/19 Status: Ordered albuterol CFC free 90 mcg/inh inhalation aerosol 2, puffs, Inhalation, 4 times a day, PRN, # 25 Gm, Refills 11, Tot. Refills 11, Maintenance, 11/24/17 13:49:05 EDT, Aerosol, Route to Pharmacy Electronically, [id number], [facility] [address], Compound Start Date: 11/24/17 Status: Ordered albuterol-ipratropium 3 mg-0.5 mg/3 ml inhalation solution 1 vials, Inhalation, 4 times a day, # 180 mL, 5 Refills, Maintenance, 07/30/19 11:02:00 EDT, [facility] #35960, 15, INHALE CONTENTS OF 1 VIAL VIA NEBULIZER FOUR TIMES DAILY, 167.64, cm, 04/24/19 16:16:00 EST, Height, 100.4, kg, 08/03/18 10:1... Start Date: 07/30/19 Status: Ordered amlodipine-benazepril 5 mg-10 mg oral capsule 1 capsule, By Mouth, Daily, To replace prior prescription (amlodipine)., # 30 capsule, 3 Refills, Maintenance, 03/10/21 15:34:00 EST, Capsule, [facility] #09391, Partial fill upon patient request if the prescription is for a schedule II opio... Start Date: 03/10/21 Status: Ordered aspirin 81 mg oral delayed release tablet 81 mg, 1, tablet, By Mouth, Daily, # 30 tablet, Refills 5, Tot. Refills 5, Maintenance, 11/02/19 11:39:00 EDT, Route to Pharmacy Electronically, [facility] #[id number], 167.64, cm, 11/02/19 10:58:00 EDT, Height, 100.4, kg, 08/03/18 10:14:00 EDT,... Start Date: 11/02/19 Status: Ordered bacitracin topical 500 u/gm ointment 1 application, Topically, 4 times a day, # 30 Gm, 0 Refills, Maintenance, 09/02/20 15:20:00 EDT, Ointment, [facility] #31096, Partial fill upon patient request if the prescription is for a schedule II opioid drug., 1 application Topically 4... Start Date: 09/02/20 Stop Date: 09/12/20 Status: Ordered baclofen 10 mg oral tablet 1, tablet, By Mouth, 3 times a day, # 60 tablet, Refills 0, Tot. Refills 0, Maintenance, 02/25/20 13:59:00 EST, Route to Pharmacy Electronically, [facility] #[id number], 167.64, cm, 11/12/19 15:34:00 EDT, Height, 100.4, [...] tablet, 11 Refills, Maintenance, 01/11/20 10:43:00 EDT, [facility] #33911, 167.64, cm, 11/12/19 15:34:00 EDT, Height, 100.4, [...] DAILY, # 44 mL, 0 Refills, Maintenance, [facility] #52401, 29, SPRAY TWICE IN EACH NOSTRIL FOUR [...] each, 5 Refills, Maintenance, 06/05/18 19:53:47 EDT, [place], 1 sprays Nares, Both 2 times a [...] 11 Refills, Maintenance, 03/02/19 10:19:00 EST, Capsule, [facility] #42120, 1 capsule By Mouth Daily, 167.64, cm, [...] 4 HOURS NEEDED FOR NAUSEA OR VOMITING, [facility] #97627 Start Date: 12/05/18 Status: Ordered raised toilet [...] Maintenance, 06/02/17 13:39:59, Route to Pharmacy Electronically, [id number], [facility] [address] Start Date: 06/02/17 Status: Ordered tiZANidine 2 mg oral tablet 2 mg, 1, tablet, By Mouth, Every 8 hours, PRN, # 90 tablet, Refills 3, Tot. Refills 3, Maintenance,as needed for muscle spasm, 01/30/21 8:11:00 EST, Route to Pharmacy Electronically, [facility] #75024, Partial fill upon patient request, 167... Start [...]
--- OUTSIDE RECORDS SUMMARY | 2023-09-12 11:21 | XMS_ITS | Continuity of Care Document ---
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 Refills 11, Maintenance, 11/24/17 13:49:05 EDT, Aerosol, Route to Pharmacy Electronically, [id number], [id number], Compound Start Date: 11/24/17 Status: Ordered albuterol-ipratropium 3 mg-0.5 mg/3 ml inhalation solution 1 vials, Inhalation, 4 times a day, # 180 mL, 5 Refills, Maintenance, 07/30/19 11:02:00 EDT, [facility] #[id number], 15, INHALE CONTENTS OF 1 VIAL VIA NEBULIZER FOUR TIMES DAILY, 167.64, cm, 04/24/19 16:16:00 EST, Height, 100.4, kg, 08/03/18 10:1... Start Date: 07/30/19 Status: Ordered amlodipine-benazepril 5 mg-10 mg oral capsule 1 capsule, By Mouth, Daily, To replace prior prescription (amlodipine)., # 30 capsule, 3 Refills, Maintenance, 03/10/21 15:34:00 EST, Capsule, [facility] #[id number], Partial fill upon patient request if the prescription is for a schedule II opio... Start Date: 03/10/21 Status: Ordered aspirin 81 mg oral delayed release tablet 81 mg, 1, tablet, By Mouth, Daily, # 30 tablet, Refills 5, Tot. Refills 5, Maintenance, 11/02/19 11:39:00 EDT, Route to Pharmacy Electronically, [facility] #[id number], 167.64, cm, 11/02/19 10:58:00 EDT, Height, 100.4, kg, 08/03/18 10:14:00 EDT,... Start Date: 11/02/19 Status: Ordered bacitracin topical 500 u/gm ointment 1 application, Topically, 4 times a day, # 30 Gm, 0 Refills, Maintenance, 09/02/20 15:20:00 EDT, Ointment, [facility] #[id number], Partial fill upon patient request if the prescription is for a schedule II opioid drug., 1 application Topically 4... Start Date: 09/02/20 Stop Date: 09/12/20 Status: Ordered baclofen 10 mg oral tablet 1, tablet, By Mouth, 3 times a day, # 60 tablet, Refills 0, Tot. Refills 0, Maintenance, 02/25/20 13:59:00 EST, Route to Pharmacy Electronically, [facility] #[id number], 167.64, cm, 11/12/19 15:34:00 EDT, Height, 100.4, [...] tablet, 11 Refills, Maintenance, 01/11/20 10:43:00 EDT, [facility] #[id number], 167.64, cm, 11/12/19 15:34:00 EDT, Height, 100.4, [...] DAILY, # 44 mL, 0 Refills, Maintenance, [facility] #[id number], 29, SPRAY TWICE IN EACH NOSTRIL FOUR [...] 07/18/20 12:54:00 EDT, Route to Pharmacy Electronically, [facility]... Start Date: 07/18/20 Stop Date: 07/13/21 Status: Ordered Flonase 50 mcg/inh nasal spray 1 sprays, Nares, Both, 2 times a day, # 1 each, 5 Refills, Maintenance, 06/05/18 19:53:47 EDT, [place], 1 sprays Nares, Both 2 times a [...] Acute 03/13/22 14:45:00 EST, 03/20/2213:45:00 EST, Ointment, [facility] #[id number], Partial fill upon patient request if the [...] 11 Refills, Maintenance, 03/02/19 10:19:00 EST, Capsule, [email or web address] #[id number], 1 capsule By Mouth Daily, 167.64, cm, [...] 4 HOURS NEEDED FOR NAUSEA OR VOMITING, [facility] #[id number] Start Date: 12/05/18 Status: Ordered raised toilet [...] Maintenance, 06/02/17 13:39:59, Route to Pharmacy Electronically, [id number], [facility] [address] Start Date: 06/02/17 Status: Ordered tiZANidine 2 mg oral tablet 2 mg, 1, tablet, By Mouth, Every 8 hours, PRN, # 90 tablet, Refills 3, Tot. Refills 3, Maintenance,as needed for muscle spasm, 01/30/21 8:11:00 EST, Route to Pharmacy Electronically, [facility] #[id number], Partial fill upon patient request, 167... Start [...]
--- OUTSIDE RECORDS SUMMARY | 2023-09-12 11:21 | XMS_ITS | Continuity of Care Document ---
Author Organization [facility] Address [address] [place] [address]- Care Team Providers Care Title Checker Name Role Phone Cesario VALDEZ, Lisseth Hancock Primary Care Physician [phone] [place] [facility] 06/21/23 - 07/21/[address] [address]- Allergies, Adverse Reactions, Alerts Substance Reaction Severity Status sulfADIAZINE rash Active sertraline 1 QT wave change Active fentanyl topical passed out Active sulfa drugs rash Active Haldol Agitation Active Bactrim rash Active NSAIDs 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 Active 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 Start Date: 01/26/23 Status: Ordered albuterol CFC free 90 mcg/inh inhalation aerosol 2, puffs, Inhalation, 4 times a day, PRN, Dispense brand as required by insurance, # 1 each, Refills 11, Tot. Refills 11, Maintenance, 01/26/23 14:00:00 EST, Aerosol, Route to Pharmacy Electronically, [id number], [facility]. Start Date: 01/26/23 Status: Ordered albuterol-ipratropium 3 mg-0.5 mg/3 ml inhalation solution 1 vials, Inhalation, 4 times a day, # 180 mL, 11 Refills, Maintenance, 01/27/23 9:25:00 EST, [facility] #[id number], 15, 1 vials Inhalation 4 times a [...] tablet, 6 Refills, Maintenance, 05/30/23 14:38:00 EDT, [facility] #[id number], 165, cm, 05/30/23 14:22:00 EDT, Height, 88.2, kg, 05/26/22 7:52:00EDT, Dry Weight Start Date: 05/30/23 Stop Date: 02/18/25 Status: Ordered amlodipine-benazepril 5 mg-10 mg oral capsule 1 capsule, By Mouth, Daily, TO. REPLACE BEFORE PRESCRIPTION AMLODIPINE, # 90 capsule, 3 Refills, Maintenance, 05/30/23 14:38:00 EDT, [facility] #08235, 90, 1 capsule By Mouth Daily,Instr:TO. REPLACE [...] tablet, 3 Refills, Maintenance, 01/26/23 14:00:00 EST, [facility] #44882, 165, cm, 01/26/23 13:31:00 EST, Height, 88.2, kg, 05/26/22 7:52:00 EDT, Dry Weight Start Date: 01/26/23 Stop Date: 01/21/24 Status: Ordered clonazePAM 2 mg oral tablet 0.5 tablet = 1 mg, By Mouth, 3 times a day, please note dosage strength, # 45 tablet, 1 Refills, Maintenance, 07/04/23 11:11:00 EDT, Tablet, [facility] #07483, Partial fill upon patient request if the [...] each, 11 Refills, Maintenance, 09/25/21 11:17:00 EDT, [place], [facility] #13414, 1 sprays Nares, Both 2 times a day,x30 days, 165, cm, 09/25/21 11:04:00 EDT, Height, 96, kg, 07/13/21 10:52:00 EDT, Dry... Start Date: 09/25/21 Stop Date: 09/20/22 Status: Ordered fluconazole 150 mg oral tablet 1 tablet = 150 mg, By Mouth, Once, Repeat dose if still having symptoms in 72 hours, # 2 tablet, 1 Refills, Soft Stop, 04/27/23 14:34:00 EST, [facility] #[id number], Partial fill upon patient request if the prescription is for a schedule... Start Date: 04/27/23 Status: Ordered fluticasone 250 mcg/inh inhalation powder 1 puffs, Inhalation, 2 times a day, dispense brand as required by insurance, # 120 each, 11 Refills, Maintenance, 04/29/23 9:44:00 EST, Powder, [facility] #[id number], Partial fill upon patient request if the [...] capsule, 4 Refills, Maintenance, 01/26/23 14:02:00 EST, [facility] #[id number], 165, cm, 01/26/23 13:31:00 EST, Height, 88.2, [...] 01/26/23 14:02:00 EST, Route to Pharmacy Electronically, [facility] #[id number], 165, cm, 01/26/23 13:31:00 EST, Height, 88.2, [...] Personnel Name: Tristin Hunt RN Position: [facility] RN Member Role: Primary Care Nurse Name: Lisseth Nassar NP Position: [facility] PCO Associate Professional Member Role: PCP Address: Address: [address] [place] [id number]- Name: Edenilson Puckett MD Position: [facility] GRAPHITE GRINDER MD Member Role: Lifetime GRAPHITE GRINDER Physician Address: Address: [address] [place] [address]- Name: Jovana Park RN Position: [facility] SN RN Member Role: Primary Care Nurse Name: Chidi Clark DO Position: [facility] Renal MD Member Role: Lifetime Consulting Physician Address: Address: [address] [place], [place] [address] [place] [address]- Name: Mireya Torres RN Position: [facility] RN Member Role: Primary Care Nurse Name: Starr Harper RN Position: [facility] AMB Nurse Member Role: Primary Care Nurse Name: Kelly Maddox RN Position: [facility] RN Member Role: Primary Care Nurse Care Team Related Persons Name: MARYA ADRIAN Address: home [address] [place] [address] Name: MORALES HOWELL Address: home [address] [place] [id number]
--- OUTSIDE RECORDS SUMMARY | 2023-09-12 11:21 | XMS_ITS | Continuity of Care Document ---
Author Organization [facility] Address [address] [place] [address]- Care Team Providers Care Child Day Care Teacher Name Role Phone Cesario VALDEZ, Lisseth Hancock Primary Care Physician Encounter [facility] Date(s): 10/18/19 - 11/17/19 [facility] [address] [place] [address]- [facility] Allergies, Adverse Reactions, Alerts Substance Reaction Severity Status sulfADIAZINE rash Active morphine rash & swelling Active sertraline 1 QT wave change Active sulfa drugs rash Active Bactrim rash Active NSAIDs 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 Active 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 Refills 11, Maintenance, 11/24/17 13:49:05 EDT, Aerosol, Route to Pharmacy Electronically, [id number], [facility] [id number], Compound Start Date: 11/24/17 Status: Ordered albuterol-ipratropium 3 mg-0.5 mg/3 ml inhalation solution 1 vials, Inhalation, 4 times a day, # 180 mL, 5 Refills, Maintenance, 07/30/19 11:02:00 EDT, [facility] #[id number], 15, INHALE CONTENTS OF 1 VIAL VIA NEBULIZER FOUR TIMES DAILY, 167.64, cm, 04/24/19 16:16:00 EST, Height, 100.4, kg, 08/03/18 10:1... Start Date: 07/30/19 Status: Ordered amLODIPine 10 mg oral tablet 1 tablet, By Mouth, Daily, # 30 tablet, 6 Refills, Maintenance, 10/04/19 12:22:00 EDT, [facility] #[id number], 167.64, cm, 04/24/19 16:16:00 EST, Height, 100.4, kg, 08/03/18 10:14:00 EDT, Dry Weight Start Date: 10/04/19 Status: Ordered aspirin 81 mg oral delayed release tablet 81 mg, 1, tablet, By Mouth, Daily, # 30 tablet, Refills 5, Tot. Refills 5, Maintenance, 11/02/19 11:39:00 EDT, Route to Pharmacy Electronically, [facility] #[id number], 167.64, cm, 11/02/19 10:58:00 EDT, Height, 100.4, kg, 08/03/18 10:14:00 EDT,... Start Date: 11/02/19 Status: Ordered baclofen 10 mg oral tablet 1, tablet, By Mouth, 3 times a day, # 60 tablet, Refills 2, Tot. Refills 2, Maintenance, 06/14/19 9:10:00 EDT, Route to Pharmacy Electronically, [facility] #[id number], 167.64, cm, 04/24/19 16:16:00 EST, Height, 100.4, [...] 5 Refills, Maintenance, 04/16/19 13:06:00 EST, Tablet, [facility] #[id number], 167.64, cm, 03/02/19 10:23:00 EST, Height, 100.4, [...] DAILY, # 44 mL, 0 Refills, Maintenance, [facility] #[id number], 29, SPRAY TWICE IN EACH NOSTRIL FOUR [...] each, 5 Refills, Maintenance, 06/05/18 19:53:47 EDT, [place], 1 sprays Nares, Both 2 times a [...] 11 Refills, Maintenance, 03/02/19 10:19:00 EST, Capsule, [facility] #08466, 1 capsule By Mouth Daily, 167.64, cm, [...] 4 HOURS NEEDED FOR NAUSEA OR VOMITING, [facility] #[id number] Start Date: 12/05/18 Status: Ordered raised toilet [...] Maintenance, 06/02/17 13:39:59, Route to Pharmacy Electronically, [id number], [facility] [address] Start Date: 06/02/17 Status: Ordered Transfer Bench [...]
--- OUTSIDE RECORDS SUMMARY | 2023-09-12 11:21 | XMS_ITS | Continuity of Care Document ---
Author Organization [facility] Address [address] [place] [address]- Care Team Providers Care Military Cook Name Role Phone Cesario VALDEZ, Lisseth Hancock Primary Care Physician [phone] Encounter [facility] [place] Date(s): 08/24/21 - 10/02/[address] [address]- Attending Physician: Not on Staff, Attending MD Allergies, Adverse Reactions, Alerts Substance Reaction Severity Status sulfADIAZINE rash Active sertraline 1 QT wave change Active sulfa drugs rash Active NSAIDs 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 Active fentanyl topical passed out Active Bactrim rash Active 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 Immunizations Given and Recorded Vaccine Date Status [...] 5 Refills, Maintenance, 05/07/19 10:46:00 EST, Solution, [facility] #02290, 167.64, cm, 04/24/19 16:16:00 EST, Height, 100.4, kg, 08/03/18 10:14:00 EDT, Dry Weight Start Date: 05/07/19 Status: Ordered albuterol-ipratropium 3 mg-0.5 mg/3 ml inhalation solution 1 vials, Inhalation, 4 times a day, # 180 mL, 5 Refills, Maintenance, 07/30/19 11:02:00 EDT, [facility] #[id number], 15, INHALE CONTENTS OF 1 VIAL VIA [...] 11 Refills, Maintenance, 04/23/21 14:51:00 EST, Capsule, [facility] #[id number], Partial fill upon patient request if the prescription is for a schedule II opi... Start Date: 04/23/21 Status: Ordered aspirin 81 mg oral delayed release tablet 81 mg, 1, tablet, By Mouth, Daily, # 30 tablet, Refills 5, Tot. Refills 5, Maintenance, 11/02/19 11:39:00 EDT, Route to Pharmacy Electronically, [facility] #[id number], 167.64, cm, 11/02/19 10:58:00 EDT, Height, 100.4, [...] tablet, 11 Refills, Maintenance, 09/25/21 11:17:00 EDT, [facility] #48863, 165, cm, 09/25/21 11:04:00 EDT, Height, 96, [...] each, 11 Refills, Maintenance, 09/25/21 11:17:00 EDT, [place], [facility] #08783, 1 sprays Nares, Both 2 times a day,x30 days, 165, cm, 09/25/21 11:04:00 EDT, Height, 96, kg, 07/13/21 10:52:00 EDT, Dry... Start Date: 09/25/21 Stop Date: 09/20/22 Status: Ordered fluocinonide 0.05% topical cream 1 applicator, Topically, 3 times a day, # 30 Gm, 3 Refills, Maintenance, 06/02/17 13:39:56, 1 applicator Topically 3 times a day Start Date: 06/02/17 Status: Ordered fluocinonide 0.05% topical ointment 1 application, Topically, 3 times a day, # 30 Gm, 11 Refills, Acute 03/13/22 14:45:00 EST, 03/20/2213:45:00 EST, Ointment, [facility] #[id number], Partial fill upon patient request if the [...] 11 Refills, Maintenance, 03/02/19 10:19:00 EST, Capsule, [facility] #[id number], 1 capsule By Mouth Daily, 167.64, cm, [...] back pain; may fill less; fill on/after 10/01/2021, # 130 tablet, 0 Refills,Acute 03/13/22 12:19:00 EST, 09/28/21 12:18:00 EDT,... Start Date: 09/28/21 Stop Date: 03/13/22 Status: Ordered oxyCODONE 15 mg oral tablet 1 tablet = 15 mg, By Mouth, Every 4 hours, PRN as needed for pain, Pt on narcotic contract; MassPatchecked; Dx chronic low back pain; may fill less; fill on/after 09/10/2021; Rx to make up for insufficient tablets, # 4 tablet, 0 Refills, Acute ... Start Date: 09/23/21 Stop Date: 03/13/22 Status: Ordered oxyCODONE 15 mg oral tablet 1 tablet = 15 mg, By Mouth, Every 6 hours, 0 Refills, Maintenance, 05/14/21 8:08:00 EST, Partial fill upon patient request if the prescription is for a schedule II opioid drug. Start Date: 05/14/21 Status: Ordered Prevacid 30 mg oral enteric [...] 09/25/21 11:17:00 EDT, Route to Pharmacy Electronically, [facility] #[id number], 165, cm, 09/25/2210:04:00 EDT, Height, 96, kg, 07/13/21 10:52:00 EDT... Start Date: 09/25/21 Status: Ordered tiZANidine 2 mg oral tablet 2 mg, 1, tablet, By Mouth, Every 8 hours, PRN, # 90 tablet, Refills 3, Tot. Refills 3, Maintenance,as needed for muscle spasm, 06/18/21 10:33:00 EDT, Route to Pharmacy Electronically, [facility] #[id number], Partial fill upon patient request, 16... Start [...]
--- OUTSIDE RECORDS SUMMARY | 2023-09-12 11:21 | XMS_ITS | Continuity of Care Document ---
Author Organization [facility] Address [address] [place] [address]- Care Team Providers Care Rn Plastic Surgery Name Role Phone Cesario VALDEZ, Lisseth Hancock Primary Care Physician [phone] Encounter [facility] Date(s): 02/20/21 - 03/22/21 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 Refills 11, Maintenance, 11/24/17 13:49:05 EDT, Aerosol, Route to Pharmacy Electronically, [id number], [facility] [address]27, Compound Start Date: 11/24/17 Status: Ordered albuterol-ipratropium 3 mg-0.5 mg/3 ml inhalation solution 1 vials, Inhalation, 4 times a day, # 180 mL, 5 Refills, Maintenance, 07/30/19 11:02:00 EDT, [facility] #[id number], 15, INHALE CONTENTS OF 1 VIAL VIA NEBULIZER FOUR TIMES DAILY, 167.64, cm, 04/24/19 16:16:00 EST, Height, 100.4, kg, 08/03/18 10:1... Start Date: 07/30/19 Status: Ordered amlodipine-benazepril 5 mg-10 mg oral capsule 1 capsule, By Mouth, Daily, To replace prior prescription (amlodipine)., # 30 capsule, 3 Refills, Maintenance, 03/10/21 15:34:00 EST, Capsule, [facility] #[id number], Partial fill upon patient request if the prescription is for a schedule II opio... Start Date: 03/10/21 Status: Ordered aspirin 81 mg oral delayed release tablet 81 mg, 1, tablet, By Mouth, Daily, # 30 tablet, Refills 5, Tot. Refills 5, Maintenance, 11/02/19 11:39:00 EDT, Route to Pharmacy Electronically, [facility] #[id number], 167.64, cm, 11/02/19 10:58:00 EDT, Height, 100.4, kg, 08/03/18 10:14:00 EDT,... Start Date: 11/02/19 Status: Ordered bacitracin topical 500 u/gm ointment 1 application, Topically, 4 times a day, # 30 Gm, 0 Refills, Maintenance, 09/02/20 15:20:00 EDT, Ointment, [facility] #[id number], Partial fill upon patient request if the prescription is for a schedule II opioid drug., 1 application Topically 4... Start Date: 09/02/20 Stop Date: 09/12/20 Status: Ordered baclofen 10 mg oral tablet 1, tablet, By Mouth, 3 times a day, # 60 tablet, Refills 0, Tot. Refills 0, Maintenance, 02/25/20 13:59:00 EST, Route to Pharmacy Electronically, [facility] #[id number], 167.64, cm, 11/12/19 15:34:00 EDT, Height, 100.4, [...] tablet, 11 Refills, Maintenance, 01/11/20 10:43:00 EDT, [facility] #[id number], 167.64, cm, 11/12/19 15:34:00 EDT, Height, 100.4, [...] DAILY, # 44 mL, 0 Refills, Maintenance, [facility] #[id number], 29, SPRAY TWICE IN EACH NOSTRIL FOUR [...] 07/18/20 12:54:00 EDT, Route to Pharmacy Electronically, [facility]... Start Date: 07/18/20 Stop Date: 07/13/21 Status: Ordered Flonase 50 mcg/inh nasal spray 1 sprays, Nares, Both, 2 times a day, # 1 each, 5 Refills, Maintenance, 06/05/18 19:53:47 EDT, [place], 1 sprays Nares, Both 2 times a [...] Acute 03/13/22 14:45:00 EST, 03/20/2213:45:00 EST, Ointment, [facility] #[id number], Partial fill upon patient request if the [...] 11 Refills, Maintenance, 03/02/19 10:19:00 EST, Capsule, [facility] #[id number], 1 capsule By Mouth Daily, 167.64, cm, [...] 4 HOURS NEEDED FOR NAUSEA OR VOMITING, [facility] #[id number] Start Date: 12/05/18 Status: Ordered raised toilet [...] Maintenance, 06/02/17 13:39:59, Route to Pharmacy Electronically, [id number], [facility] [address] Start Date: 06/02/17 Status: Ordered tiZANidine 2 mg oral tablet 2 mg, 1, tablet, By Mouth, Every 8 hours, PRN, # 90 tablet, Refills 3, Tot. Refills 3, Maintenance,as needed for muscle spasm, 01/30/21 8:11:00 EST, Route to Pharmacy Electronically, [facility] #[id number], Partial fill upon patient request, 167... Start [...]
--- OUTSIDE RECORDS SUMMARY | 2023-09-12 11:21 | XMS_ITS | Continuity of Care Document ---
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 Start Date: 05/12/22 Status: Ordered albuterol CFC free 90 mcg/inh inhalation aerosol 2, puffs, Inhalation, 4 times a day, PRN, Dispense brand as required by insurance, # 18 Gm, [id number], Tot. Refills 11, Maintenance, 05/12/22 11:38:00 EST, Aerosol, Route to Pharmacy Electronically, [id number], [facility]... Start Date: 05/12/22 Status: Ordered albuterol-ipratropium 3 mg-0.5 mg/3 ml inhalation solution 1 vials, Inhalation, 4 times a day, # 180 mL, 11 Refills, Maintenance, 05/12/22 11:38:00 EST, [facility] #[id number], 15, 1 vials Inhalation 4 times a [...] 11 Refills, Maintenance, 03/01/22 16:04:00 EST, Capsule, [facility] #[id number], Partial fill upon patient request if the prescription is for a schedule II opi... Start Date: 03/01/22 Stop Date: 02/13/25 Status: Ordered apixaban 2.5 mg oral tablet 1 tablet = 2.5 mg, By Mouth, 2 times a day, # 60 tablet, 0 Refills, Maintenance, 05/28/22 8:20:00 EDT, Tablet, [facility] 3, Partial fill upon patient [...] tablet, 11 Refills, Maintenance, 09/25/21 11:17:00 EDT, [facility] #23612, 165, cm, 09/25/21 11:04:00 EDT, Height, 96, [...] each, 11 Refills, Maintenance, 09/25/21 11:17:00 EDT, [place], [facility] #67061, 1 sprays Nares, Both 2 times a day,x30 days, 165, cm, 09/25/21 11:04:00 EDT, Height, 96, kg, 07/13/21 10:52:00 EDT, Dry... Start Date: 09/25/21 Stop Date: 09/20/22 Status: Ordered Flovent HFA 220 mcg/inh inhalation aerosol 2 puffs, Inhalation, 2 times a day, # 12 Gm, 11 Refills, Maintenance, 05/19/22 13:39:00 EST, Aerosol, [facility] #34265, Partial fill upon patient request if the [...] 05/12/22 11:38:00 EST, Route to Pharmacy Electronically, [facility] #[id number], 168, cm, 05/12/2310:30:00 EST, Height, 85, kg, [...] Team Personnel Name: Tristin Hunt RN Position: [facility] RN Member Role: Primary Care Nurse Name: Lisseth Nassar NP Position: [facility] PCO Associate Professional Member Role: PCP Address: Address: [address] [place] [id number]- Name: Edenilson Puckett MD Position: [facility] DISABILITY EXAMINER MD Member Role: Lifetime DISABILITY EXAMINER Physician Address: Address: [address] [place] [address]- Name: Jovana Park RN Position: S RN Member Role: Primary Care Nurse Name: Chidi Clark DO Position: [facility] Renal MD Member Role: Lifetime Consulting Physician Address: Address: [address] [place] [address] [address] [facility] [place] [place] [address]- Name: Mireya Torres RN Position: S RN Member Role: Primary Care Nurse Name: Kelly Maddox RN Position: S RN Member Role: Primary Care Nurse Care Team Related Persons Name: KAYLAH MARYA Address: home [address] [place] [address] Name: MORALES HOWELL Address: home [address] [place] [id number]
--- OUTSIDE RECORDS SUMMARY | 2023-09-12 11:21 | XMS_ITS | Continuity of Care Document ---
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 Refills 11, Maintenance, 11/24/17 13:49:05 EDT, Aerosol, Route to Pharmacy Electronically, [id number], [facility] [address], Compound Start Date: 11/24/17 Status: Ordered albuterol-ipratropium 3 mg-0.5 mg/3 ml inhalation solution 1 vials, Inhalation, 4 times a day, # 180 mL, 5 Refills, Maintenance, 07/30/19 11:02:00 EDT, [facility] #40963, 15, INHALE CONTENTS OF 1 VIAL VIA NEBULIZER FOUR TIMES DAILY, 167.64, cm, 04/24/19 16:16:00 EST, Height, 100.4, kg, 08/03/18 10:1... Start Date: 07/30/19 Status: Ordered amLODIPine 10 mg oral tablet 1 tablet, By Mouth, Daily, # 30 tablet, 6 Refills, Maintenance, 10/04/19 12:22:00 EDT, [facility] #10409, 167.64, cm, 04/24/19 16:16:00 EST, Height, 100.4, kg, 08/03/18 10:14:00 EDT, Dry Weight Start Date: 10/04/19 Status: Ordered baclofen 10 mg oral tablet 1, tablet, By Mouth, 3 times a day, # 60 tablet, Refills 2, Tot. Refills 2, Maintenance, 06/14/19 9:10:00 EDT, Route to Pharmacy Electronically, [facility] #88180, 167.64, cm, 04/24/19 16:16:00 EST, Height, 100.4, [...] 5 Refills, Maintenance, 04/16/19 13:06:00 EST, Tablet, [facility] #89762, 167.64, cm, 03/02/19 10:23:00 EST, Height, 100.4, [...] DAILY, # 44 mL, 0 Refills, Maintenance, [facility] #74192, 29, SPRAY TWICE IN EACH NOSTRIL FOUR [...] each, 5 Refills, Maintenance, 06/05/18 19:53:47 EDT, [place], 1 sprays Nares, Both 2 times a [...] 11 Refills, Maintenance, 03/02/19 10:19:00 EST, Capsule, [facility] #94542, 1 capsule By Mouth Daily, 167.64, cm, [...] 4 HOURS NEEDED FOR NAUSEA OR VOMITING, [facility] Start Date: 12/05/18 Status: Ordered raised toilet [...] Maintenance, 06/02/17 13:39:59, Route to Pharmacy Electronically, [id number], [facility] [address] Start Date: 06/02/17 Status: Ordered Transfer Bench [...]
--- OUTSIDE RECORDS SUMMARY | 2023-09-12 11:21 | XMS_ITS | Continuity of Care Document ---
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 Refills 11, Maintenance, 11/24/17 13:49:05 EDT, Aerosol, Route to Pharmacy Electronically, [id number], [facility] [address], Compound Start Date: 11/24/17 Status: Ordered albuterol-ipratropium 3 mg-0.5 mg/3 ml inhalation solution 1 vials, Inhalation, 4 times a day, # 180 mL, 5 Refills, Maintenance, 07/30/19 11:02:00 EDT, [facility] #33839, 15, INHALE CONTENTS OF 1 VIAL VIA NEBULIZER FOUR TIMES DAILY, 167.64, cm, 04/24/19 16:16:00 EST, Height, 100.4, kg, 08/03/18 10:1... Start Date: 07/30/19 Status: Ordered amLODIPine 10 mg oral tablet 1 tablet, By Mouth, Daily, # 30 tablet, 6 Refills, Maintenance, 10/04/19 12:22:00 EDT, [facility] #[id number], 167.64, cm, 04/24/19 16:16:00 EST, Height, 100.4, kg, 08/03/18 10:14:00 EDT, Dry Weight Start Date: 10/04/19 Status: Ordered aspirin 81 mg oral delayed release tablet 81 mg, 1, tablet, By Mouth, Daily, # 30 tablet, Refills 5, Tot. Refills 5, Maintenance, 11/02/19 11:39:00 EDT, Route to Pharmacy Electronically, [facility] #76090, 167.64, cm, 11/02/19 10:58:00 EDT, Height, 100.4, kg, 08/03/18 10:14:00 EDT,... Start Date: 11/02/19 Status: Ordered baclofen 10 mg oral tablet 1, tablet, By Mouth, 3 times a day, # 60 tablet, Refills 2, Tot. Refills 2, Maintenance, 11/22/19 8:56:00 EDT, Route to Pharmacy Electronically, [facility] #90193, 167.64, cm, 11/12/19 15:34:00 EDT, Height, 100.4, kg, 08/03/18 10:14:00 EDT,... Start Date: 11/22/19 Status: Ordered baclofen 10 mg oral tablet 1, tablet, By Mouth, 3 times a day, # 60 tablet, Refills 2, Tot. Refills 2, Maintenance, 06/14/19 9:10:00 EDT, Route to Pharmacy Electronically, [facility] #99598, 167.64, cm, 04/24/19 16:16:00 EST, Height, 100.4, [...] tablet, 11 Refills, Maintenance, 01/11/20 10:43:00 EDT, [facility] #03454, 167.64, cm, 11/12/19 15:34:00 EDT, Height, 100.4, [...] DAILY, # 44 mL, 0 Refills, Maintenance, [facility] #71944, 29, SPRAY TWICE IN EACH NOSTRIL FOUR [...] 11 Refills, Maintenance, 03/02/19 10:19:00 EST, Capsule, [facility] #82013, 1 capsule By Mouth Daily, 167.64, cm, [...] 4 HOURS NEEDED FOR NAUSEA OR VOMITING, [facility] #30813 Start Date: 12/05/18 Status: Ordered raised toilet [...] Maintenance, 06/02/17 13:39:59, Route to Pharmacy Electronically, [id number], [facility] [address] Start Date: 06/02/17 Status: Ordered Transfer Bench [...]
--- OUTSIDE RECORDS SUMMARY | 2023-09-12 11:21 | XMS_ITS | Continuity of Care Document ---
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 Refills 11, Maintenance, 11/24/17 13:49:05 EDT, Aerosol, Route to Pharmacy Electronically, [id number], [facility] [address], Compound Start Date: 11/24/17 Status: Ordered albuterol-ipratropium 3 mg-0.5 mg/3 ml inhalation solution 1 vials, Inhalation, 4 times a day, # 180 mL, 5 Refills, Maintenance, 07/30/19 11:02:00 EDT, [facility] #[id number], 15, INHALE CONTENTS OF 1 VIAL VIA NEBULIZER FOUR TIMES DAILY, 167.64, cm, 04/24/19 16:16:00 EST, Height, 100.4, kg, 08/03/18 10:1... Start Date: 07/30/19 Status: Ordered amLODIPine 10 mg oral tablet 1 tablet, By Mouth, Daily, # 30 tablet, 5 Refills, Maintenance, 05/06/20 12:30:00 EST, [facility] #97511, 167.64, cm, 03/25/20 14:59:00 EST, Height, 100.4, kg, 08/03/18 10:14:00 EDT, Dry Weight Start Date: 05/06/20 Status: Ordered aspirin 81 mg oral delayed release tablet 81 mg, 1, tablet, By Mouth, Daily, # 30 tablet, Refills 5, Tot. Refills 5, Maintenance, 11/02/19 11:39:00 EDT, Route to Pharmacy Electronically, [facility] #14061, 167.64, cm, 11/02/19 10:58:00 EDT, Height, 100.4, kg, 08/03/18 10:14:00 EDT,... Start Date: 11/02/19 Status: Ordered baclofen 10 mg oral tablet 1, tablet, By Mouth, 3 times a day, # 60 tablet, Refills 0, Tot. Refills 0, Maintenance, 02/25/20 13:59:00 EST, Route to Pharmacy Electronically, [facility] #90796, 167.64, cm, 11/12/19 15:34:00 EDT, Height, 100.4, [...] tablet, 11 Refills, Maintenance, 01/11/20 10:43:00 EDT, [facility] #36220, 167.64, cm, 11/12/19 15:34:00 EDT, Height, 100.4, [...] DAILY, # 44 mL, 0 Refills, Maintenance, [facility], 29, SPRAY TWICE IN EACH NOSTRIL FOUR [...] 07/18/20 12:54:00 EDT, [facility] to [facility] Electronically[facility] Start Date: 07/18/20 Stop Date: 07/13/21 Status: Ordered Flonase 50 mcg/inh nasal spray 1 sprays, Nares, Both, 2 times a day, # 1 each, 5 Refills, Maintenance, 06/05/18 19:53:47 EDT, [facility], 1 sprays Nares, Both 2 times a [...] 11 Refills, Maintenance, 03/02/19 10:19:00 EST, Capsule, [facility] #41613, 1 capsule By Mouth Daily, 167.64, cm, [...] 4 HOURS NEEDED FOR NAUSEA OR VOMITING, [facility] #49863 Start Date: 12/05/18 Status: Ordered raised toilet [...] Maintenance, 06/02/17 13:39:59, Route to Pharmacy Electronically, [id number], [facility] [address] Start Date: 06/02/17 Status: Ordered tiZANidine 2 mg oral tablet 2 mg, 1, tablet, By Mouth, Every 8 hours, PRN, # 90 tablet, Refills 3, Tot. Refills 3, Maintenance,as needed for muscle spasm, 02/08/20 9:24:00 EST, Route to Pharmacy Electronically, [facility] #15370, Partial fill upon patient request, 167... Start [...]
--- OUTSIDE RECORDS SUMMARY | 2023-09-12 11:21 | XMS_ITS | Continuity of Care Document ---
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 Refills 11, Maintenance, 11/24/17 13:49:05 EDT, Aerosol, Route to Pharmacy Electronically, [id number], [facility] [address], Compound Start Date: 11/24/17 Status: Ordered albuterol-ipratropium 3 mg-0.5 mg/3 ml inhalation solution 1 vials, Inhalation, 4 times a day, # 180 mL, 5 Refills, Maintenance, 07/30/19 11:02:00 EDT, [facility] #62830, 15, INHALE CONTENTS OF 1 VIAL VIA NEBULIZER FOUR TIMES DAILY, 167.64, cm, 04/24/19 16:16:00 EST, Height, 100.4, kg, 08/03/18 10:1... Start Date: 07/30/19 Status: Ordered amLODIPine 10 mg oral tablet 1 tablet, By Mouth, Daily, # 30 tablet, 6 Refills, Maintenance, 10/04/19 12:22:00 EDT, [facility] #46723, 167.64, cm, 04/24/19 16:16:00 EST, Height, 100.4, kg, 08/03/18 10:14:00 EDT, Dry Weight Start Date: 10/04/19 Status: Ordered aspirin 81 mg oral delayed release tablet 81 mg, 1, tablet, By Mouth, Daily, # 30 tablet, Refills 5, Tot. Refills 5, Maintenance, 11/02/19 11:39:00 EDT, Route to Pharmacy Electronically, [facility] #18757, 167.64, cm, 11/02/19 10:58:00 EDT, Height, 100.4, kg, 08/03/18 10:14:00 EDT,... Start Date: 11/02/19 Status: Ordered baclofen 10 mg oral tablet 1, tablet, By Mouth, 3 times a day, # 60 tablet, Refills 2, Tot. Refills 2, Maintenance, 11/22/19 8:56:00 EDT, Route to Pharmacy Electronically, [facility] #10567, 167.64, cm, 11/12/19 15:34:00 EDT, Height, 100.4, kg, 08/03/18 10:14:00 EDT,... Start Date: 11/22/19 Status: Ordered baclofen 10 mg oral tablet 1, tablet, By Mouth, 3 times a day, # 60 tablet, Refills 2, Tot. Refills 2, Maintenance, 06/14/19 9:10:00 EDT, Route to Pharmacy Electronically, [facility] #48984, 167.64, cm, 04/24/19 16:16:00 EST, Height, 100.4, [...] 5 Refills, Maintenance, 04/16/19 13:06:00 EST, Tablet, [facility] #36309, 167.64, cm, 03/02/19 10:23:00 EST, Height, 100.4, [...] DAILY, # 44 mL, 0 Refills, Maintenance, [facility] #46126, 29, SPRAY TWICE IN EACH NOSTRIL FOUR [...] each, 5 Refills, Maintenance, 06/05/18 19:53:47 EDT, [place], 1 sprays Nares, Both 2 times a [...] 11 Refills, Maintenance, 03/02/19 10:19:00 EST, Capsule, [facility] #60068, 1 capsule By Mouth Daily, 167.64, cm, [...] 4 HOURS NEEDED FOR NAUSEA OR VOMITING, [facility] #42131 Start Date: 12/05/18 Status: Ordered raised toilet seat raised toilet seat, See Instructions, # 1 each, Refills 0, Tot. Refills 0, Maintenance, please dispense one raised toilet seat Dx M48, M54.16, M54.5, 01/07/19 13:26:38 EST, [facility] Start Date: 03/20/18 Status: [...] Maintenance, 06/02/17 13:39:59, Route to Pharmacy Electronically, [id number], [facility] [address] Start Date: 06/02/17 Status: Ordered Transfer Bench [...]
--- OUTSIDE RECORDS SUMMARY | 2023-09-12 11:22 | XMS_ITS | Continuity of Care Document ---
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 Immunizations Given and Recorded Vaccine Date Status [...] 5 Refills, Maintenance, 05/07/19 10:46:00 EST, Solution, [facility] #[id number], 167.64, cm, 04/24/19 16:16:00 EST, Height, 100.4, kg, 08/03/18 10:14:00 EDT, Dry Weight Start Date: 05/07/19 Status: Ordered albuterol-ipratropium 3 mg-0.5 mg/3 ml inhalation solution 1 vials, Inhalation, 4 times a day, # 180 mL, 5 Refills, Maintenance, 07/30/19 11:02:00 EDT, [facility] #63825, 15, INHALE CONTENTS OF 1 VIAL VIA [...] 11 Refills, Maintenance, 04/23/21 14:51:00 EST, Capsule, [facility] #[id number], Partial fill upon patient request if the prescription is for a schedule II opi... Start Date: 04/23/21 Status: Ordered aspirin 81 mg oral delayed release tablet 81 mg, 1, tablet, By Mouth, Daily, # 30 tablet, Refills 5, Tot. Refills 5, Maintenance, 11/02/19 11:39:00 EDT, Route to Pharmacy Electronically, [facility] #12540, 167.64, cm, 11/02/19 10:58:00 EDT, Height, 100.4, [...] tablet, 11 Refills, Maintenance, 01/11/20 10:43:00 EDT, [facility] #67424, 167.64, cm, 11/12/19 15:34:00 EDT, Height, 100.4, [...] each, 5 Refills, Maintenance, 06/05/18 19:53:47 EDT, [place], 1 sprays Nares, Both 2 times a [...] Acute 03/13/22 14:45:00 EST, 03/20/2213:45:00 EST, Ointment, [facility] #[id number], Partial fill upon patient request if the [...] 11 Refills, Maintenance, 03/02/19 10:19:00 EST, Capsule, [facility] #56012, 1 capsule By Mouth Daily, 167.64, cm, [...] Maintenance, 06/02/17 13:39:59, Route to Pharmacy Electronically, [id number], [facility] [address] Start Date: 06/02/17 Status: Ordered tiZANidine 2 mg oral tablet 2 mg, 1, tablet, By Mouth, Every 8 hours, PRN, # 90 tablet, Refills 3, Tot. Refills 3, Maintenance,as needed for muscle spasm, 06/18/21 10:33:00 EDT, Route to Pharmacy Electronically, [facility] #[id number], Partial fill upon patient request, 16... Start [...]
--- OUTSIDE RECORDS SUMMARY | 2023-09-12 11:22 | XMS_ITS | Continuity of Care Document ---
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 Start Date: 01/26/23 Status: Ordered albuterol CFC free 90 mcg/inh inhalation aerosol 2, puffs, Inhalation, 4 times a day, PRN, Dispense brand as required by insurance, # 1 each, Refills 11, Tot. Refills 11, Maintenance, 01/26/23 14:00:00 EST, Aerosol, Route to Pharmacy Electronically, [id number], [facility]. Start Date: 01/26/23 Status: Ordered albuterol-ipratropium 3 mg-0.5 mg/3 ml inhalation solution 1 vials, Inhalation, 4 times a day, # 180 mL, 11 Refills, Maintenance, 01/27/23 9:25:00 EST, [facility] #[id number], 15, 1 vials Inhalation 4 times a [...] tablet, 6 Refills, Maintenance, 05/30/23 14:38:00 EDT, [facility] #[id number], 165, cm, 05/30/23 14:22:00 EDT, Height, 88.2, kg, 05/26/22 7:52:00EDT, Dry Weight Start Date: 05/30/23 Stop Date: 02/18/25 Status: Ordered amlodipine-benazepril 5 mg-10 mg oral capsule 1 capsule, By Mouth, Daily, TO. REPLACE BEFORE PRESCRIPTION AMLODIPINE, # 90 capsule, 3 Refills, Maintenance, 05/30/23 14:38:00 EDT, [facility] #[id number], 90, 1 capsule By Mouth Daily,Instr:TO. REPLACE [...] Daily, # 90 tablet, 3 Refills, Maintenance, 11/15/23 14:00:00 EST, [facility] #[id number], 165, cm, 01/26/23 13:31:00 EST, Height, 88.2, kg, 05/26/22 7:52:00 EDT, Dry Weight Start Date: 01/26/23 Stop Date: 01/21/24 Status: Ordered clonazePAM 1 mg oral tablet 1 tablet = 1 mg, By Mouth, 3 times a day, To use sparingly; to fill on/after 08/03/2023, # 90 tablet, 1 Refills, Maintenance, 08/03/23 8:28:00 EDT, Tablet, [facility] #[id number], Partial fill upon patient request if the prescription is for a sche... Start Date: 08/03/23 Status: Ordered clonazePAM 2 mg oral tablet 0.5 tablet = 1 mg, By Mouth, 3 times a day, please note dosage strength, # 45 tablet, 1 Refills, Maintenance, 08/01/23 14:14:00 EDT, Tablet, [facility] #[id number], Partial fill upon patient request if the prescription is for a schedule II opioid... Start Date: 08/01/23 Stop Date: 09/30/23 Status: Ordered Colace Capsule 100 mg, 1, [...] each, 11 Refills, Maintenance, 09/25/21 11:17:00 EDT, [place], [facility] #[id number], 1 sprays Nares, Both 2 times a day,x30 days, 165, cm, 09/25/21 11:04:00 EDT, Height, 96, kg, 07/13/21 10:52:00 EDT, Dry... Start Date: 09/25/21 Stop Date: 09/20/22 Status: Ordered fluconazole 150 mg oral tablet 1 tablet = 150 mg, By Mouth, Once, Repeat dose if still having symptoms in 72 hours, # 2 tablet, 1 Refills, Soft Stop, 04/27/23 14:34:00 EST, Tablet, [facility] #[id number], Partial fill upon patient request if the prescription is for a schedule... Start Date: 04/27/23 Status: Ordered fluticasone 250 mcg/inh inhalation powder 1 puffs, Inhalation, 2 times a day, dispense brand as required by insurance, # 120 each, 11 Refills, Maintenance, 04/29/23 9:44:00 EST, Powder, [facility] #[id number], Partial fill upon patient request if the [...] pain; may fill less; May fill on/after 08/03/2023 to replace previous lost RX, # 180 tablet, 0 Refills, Maintenance, 08/02... Start Date: 08/03/23 Stop Date: 09/02/23 Status: Ordered oxyCODONE 15 mg oral tablet 1 tablet = 15 mg, By Mouth, Every 4 hours, PRN as needed for pain, Pt on narcotic contract; MassPatchecked; Dx chronic low back pain; may fill less; May fill on/after 10/12/2022; short RX due to supply at pharmacy, # 15 tablet, 0 Refills, Maintenance,... Start Date: 01/27/23 Stop Date: 01/31/23 Status: Ordered pantoprazole 40 mg oral delayed [...] capsule, 4 Refills, Maintenance, 01/26/23 14:02:00 EST, [facility] #[id number], 165, cm, 01/26/23 13:31:00 EST, Height, 88.2, [...] 01/26/23 14:02:00 EST, Route to Pharmacy Electronically, [facility] #[id number], 165, cm, 01/26/23 13:31:00 EST, Height, 88.2, [...] Team Personnel Name: Tristin Hunt RN Position: [facility] RN Member Role: Primary Care Nurse Name: Lisseth Nassar NP Position: [facility] PCO Associate Professional Member Role: PCP Address: Address: [address] [place] [address]- Name: Edenilson Puckett MD Position: [facility] BRUSH HOLDER INSPECTOR MD Member Role: Lifetime BRUSH HOLDER INSPECTOR Physician Address: Address: [address] [place] [address]- Name: Jovana Park RN Position: [facility] SN RN Member Role: Primary Care Nurse Name: Chidi Clark DO Position: [facility] Renal MD Member Role: Lifetime Consulting Physician Address: Address: [address] [place] [address] [address] [facility] [place], [place] [address] Name: Mireya Torres RN Position: [facility] RN Member Role: Primary Care Nurse Name: Starr Harper RN Position: [facility] AMB Nurse Member Role: Primary Care Nurse Name: Kelly Maddox RN Position: [facility] RN Member Role: Primary Care Nurse Care Team Related Persons Name: KAYLAH MARYA Address: home [address] [place] [address] Name: MORALES HOWELL Address: home [address] [place] [address]
--- OUTSIDE RECORDS SUMMARY | 2023-09-12 11:22 | XMS_ITS | Continuity of Care Document ---
Author Organization [facility] Tory tayler Address [address] [place] [address] [address] [place] [address]- Care Team Providers Care Fur Farmer Name Role Phone Cesario GEODETIC TECHNICIAN, Lisseth Hancock Primary Care Physician [phone] Encounter [facility] Date(s): 09/11/20 - 10/11/20 [facility] [address] [place] [address]- Allergies, Adverse Reactions, Alerts Substance Reaction Severity Status sulfADIAZINE rash Active morphine rash & swelling Active sertraline 1 QT wave change Active sulfa drugs rash Active Bactrim rash Active NSAIDs 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 Active 1 changed 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 Refills 11, Maintenance, 11/24/17 13:49:05 EDT, Aerosol, Route to Pharmacy Electronically, [id number], [facility] [address], Compound Start Date: 11/24/17 Status: Ordered albuterol-ipratropium 3 mg-0.5 mg/3 ml inhalation solution 1 vials, Inhalation, 4 times a day, # 180 mL, 5 Refills, Maintenance, 07/30/19 11:02:00 EDT, [facility] #[id number], 15, INHALE CONTENTS OF 1 VIAL VIA NEBULIZER FOUR TIMES DAILY, 167.64, cm, 04/24/19 16:16:00 EST, Height, 100.4, kg, 08/03/18 10:1... Start Date: 07/30/19 Status: Ordered amLODIPine 10 mg oral tablet 1 tablet, By Mouth, Daily, # 30 tablet, 5 Refills, Maintenance, 05/06/20 12:30:00 EST, [facility] #[id number], 167.64, cm, 03/25/20 14:59:00 EST, Height, 100.4, kg, 08/03/18 10:14:00 EDT, Dry Weight Start Date: 05/06/20 Status: Ordered aspirin 81 mg oral delayed release tablet 81 mg, 1, tablet, By Mouth, Daily, # 30 tablet, Refills 5, Tot. Refills 5, Maintenance, 11/02/19 11:39:00 EDT, Route to Pharmacy Electronically, [facility] #[id number], 167.64, cm, 11/02/19 10:58:00 EDT, Height, 100.4, kg, 08/03/18 10:14:00 EDT,... Start Date: 11/02/19 Status: Ordered bacitracin topical 500 u/gm ointment 1 application, Topically, 4 times a day, # 30 Gm, 0 Refills, Maintenance, 09/02/20 15:20:00 EDT, Ointment, [facility] #16484, Partial fill upon patient request if the prescription is for a schedule II opioid drug., 1 application Topically 4... Start Date: 09/02/20 Stop Date: 09/12/20 Status: Ordered baclofen 10 mg oral tablet 1, tablet, By Mouth, 3 times a day, # 60 tablet, Refills 0, Tot. Refills 0, Maintenance, 02/25/20 13:59:00 EST, Route to Pharmacy Electronically, [facility] #[id number], 167.64, cm, 11/12/19 15:34:00 EDT, Height, 100.4, [...] tablet, 11 Refills, Maintenance, 01/11/20 10:43:00 EDT, [facility] #54934, 167.64, cm, 11/12/19 15:34:00 EDT, Height, 100.4, [...] DAILY, # 44 mL, 0 Refills, Maintenance, [facility] #02974, 29, SPRAY TWICE IN EACH NOSTRIL FOUR [...] each, 5 Refills, Maintenance, 06/05/18 19:53:47 EDT, [place], 1 sprays Nares, Both 2 times a [...] 11 Refills, Maintenance, 03/02/19 10:19:00 EST, Capsule, [facility] #49485, 1 capsule By Mouth Daily, 167.64, cm, [...] 4 HOURS NEEDED FOR NAUSEA OR VOMITING, [facility] #[id number] Start Date: 12/05/18 Status: Ordered raised toilet [...] Maintenance, 06/02/17 13:39:59, Route to Pharmacy Electronically, [id number], [facility] [address] Start Date: 06/02/17 Status: Ordered tiZANidine 2 mg oral tablet 2 mg, 1, tablet, By Mouth, Every 8 hours, PRN, # 90 tablet, Refills 3, Tot. Refills 3, Maintenance,as needed for muscle spasm, 02/08/20 9:24:00 EST, Route to Pharmacy Electronically, [facility] #62703, Partial fill upon patient request, 167... Start [...]
--- OUTSIDE RECORDS SUMMARY | 2023-09-12 11:22 | XMS_ITS | Continuity of Care Document ---
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 Start Date: 05/12/22 Status: Ordered albuterol CFC free 90 mcg/inh inhalation aerosol 2, puffs, Inhalation, 4 times a day, PRN, Dispense brand as required by insurance, # 18 Gm, Prabfei52, Tot. Refills 11, Maintenance, 05/12/22 11:38:00 EST, Aerosol, Route to Pharmacy Electronically, [id number], [facility]... Start Date: 05/12/22 Status: Ordered albuterol-ipratropium 3 mg-0.5 mg/3 ml inhalation solution 1 vials, Inhalation, 4 times a day, # 180 mL, 11 Refills, Maintenance, 05/12/22 11:38:00 EST, [facility] #37397, 15, 1 vials Inhalation 4 times a [...] tablet, 6 Refills, Maintenance, 12/07/22 16:46:00 EDT, [facility] #49373, 165, cm, 12/06/22 17:39:00 EDT, Height, 88.2, kg, 05/26/22 7:52:00EDT, Dry Weight Start Date: 12/07/22 Status: Ordered amlodipine-benazepril 5 mg-10 mg oral capsule 1 capsule, By Mouth, Daily, To replace prior prescription (amlodipine)., # 90 capsule, 11 Refills, Maintenance, 03/01/22 16:04:00 EST, Capsule, [facility] #72416, Partial fill upon patient request if the prescription is for a schedule II opi... Start Date: 03/01/22 Stop Date: 02/13/25 Status: Ordered apixaban 2.5 mg oral tablet 1 tablet = 2.5 mg, By Mouth, 2 times a day, # 60 tablet, 0 Refills, Maintenance, 05/28/22 8:20:00 EDT, Tablet, [facility], Partial fill upon patient request [...] tablet, 11 Refills, Maintenance, 09/25/21 11:17:00 EDT, [facility] #01000, 165, cm, 09/25/21 11:04:00 EDT, Height, 96, [...] each, 11 Refills, Maintenance, 09/25/21 11:17:00 EDT, [place], [facility] #64417, 1 sprays Nares, Both 2 times a day,x30 days, 165, cm, 09/25/21 11:04:00 EDT, Height, 96, kg, 07/13/21 10:52:00 EDT, Dry... Start Date: 09/25/21 Stop Date: 09/20/22 Status: Ordered Flovent HFA 220 mcg/inh inhalation aerosol 2 puffs, Inhalation, 2 times a day, # 12 Gm, 11 Refills, Maintenance, 05/19/22 13:39:00 EST, [facility]04424, Partial fill upon patient request if the [...] 03/13/23 15:24:00 EST, 09/01/22 15:23:00 EDT, Ointment, [facility] #09600, Partial fill upon patient request if the [...] 05/12/22 11:38:00 EST, Route to Pharmacy Electronically, [facility] #53934, 168, cm, 05/12/2310:30:00 EST, Height, 85, kg, [...] Team Personnel Name: Tristin Hunt RN Position: [facility] RN Member Role: Primary Care Nurse Name: Lisseth Nassar NP Position: [facility] PCO Associate Professional Member Role: PCP Address: Address: [address] [place] [id number]- Name: Lavern SPENCER, Edenilson Chen Position: [facility] HAND LAUNDERER MD Member Role: Lifetime HAND LAUNDERER Physician Address: Address: [address] [place] [address]- Name: Jovana Park RN Position: S RN Member Role: Primary Care Nurse Name: Chidi Clark DO Position: [facility] Renal MD Member Role: Lifetime Consulting Physician Address: Address: [address] [place], [place] [address] [place] [address]- Name: Mireya Torres RN Position: [facility] RN Member Role: Primary Care Nurse Name: Starr Harper RN Position: [facility] SN RN Member Role: Primary Care Nurse Name: Kelly Maddox RN Position: S RN Member Role: Primary Care Nurse Care Team Related Persons Name: MARYA ADRIAN Address: home [address] [place] [address] Name: MORALES HOWELL Address: home [address] [place] [id number]
--- OUTSIDE RECORDS SUMMARY | 2023-09-12 11:22 | XMS_ITS | Continuity of Care Document ---
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 Refills 11, Maintenance, 11/24/17 13:49:05 EDT, Aerosol, Route to Pharmacy Electronically, [id number], [facility] [address], Compound Start Date: 11/24/17 Status: Ordered albuterol-ipratropium 3 mg-0.5 mg/3 ml inhalation solution 1 vials, Inhalation, 4 times a day, # 180 mL, 5 Refills, Maintenance, 07/30/19 11:02:00 EDT, [facility] #36510, 15, INHALE CONTENTS OF 1 VIAL VIA NEBULIZER FOUR TIMES DAILY, 167.64, cm, 04/24/19 16:16:00 EST, Height, 100.4, kg, 08/03/18 10:1... Start Date: 07/30/19 Status: Ordered amLODIPine 10 mg oral tablet 1 tablet, By Mouth, Daily, # 30 tablet, 5 Refills, Maintenance, 05/06/20 12:30:00 EST, [facility] #64562, 167.64, cm, 03/25/20 14:59:00 EST, Height, 100.4, kg, 08/03/18 10:14:00 EDT, Dry Weight Start Date: 05/06/20 Status: Ordered aspirin 81 mg oral delayed release tablet 81 mg, 1, tablet, By Mouth, Daily, # 30 tablet, Refills 5, Tot. Refills 5, Maintenance, 11/02/19 11:39:00 EDT, Route to Pharmacy Electronically, [facility] #11642, 167.64, cm, 11/02/19 10:58:00 EDT, Height, 100.4, kg, 08/03/18 10:14:00 EDT,... Start Date: 11/02/19 Status: Ordered bacitracin topical 500 u/gm ointment 1 application, Topically, 4 times a day, # 30 Gm, 0 Refills, Maintenance, 09/02/20 15:20:00 EDT, Ointment, [facility] #62939, Partial fill upon patient request if the prescription is for a schedule II opioid drug., 1 application Topically 4... Start Date: 09/02/20 Stop Date: 09/12/20 Status: Ordered baclofen 10 mg oral tablet 1, tablet, By Mouth, 3 times a day, # 60 tablet, Refills 0, Tot. Refills 0, Maintenance, 02/25/20 13:59:00 EST, Route to Pharmacy Electronically, [facility] #[id number], 167.64, cm, 11/12/19 15:34:00 EDT, Height, 100.4, [...] tablet, 11 Refills, Maintenance, 01/11/20 10:43:00 EDT, [facility] #56713, 167.64, cm, 11/12/19 15:34:00 EDT, Height, 100.4, [...] DAILY, # 44 mL, 0 Refills, Maintenance, [facility] #72011, 29, SPRAY TWICE IN EACH NOSTRIL FOUR [...] each, 5 Refills, Maintenance, 06/05/18 19:53:47 EDT, [place], 1 sprays Nares, Both 2 times a [...] 11 Refills, Maintenance, 03/02/19 10:19:00 EST, Capsule, [facility] #94061, 1 capsule By Mouth Daily, 167.64, cm, [...] 4 HOURS NEEDED FOR NAUSEA OR VOMITING, [facility] #49488 Start Date: 12/05/18 Status: Ordered raised toilet [...] Maintenance, 06/02/17 13:39:59, Route to Pharmacy Electronically, [id number], [facility] [address] Start Date: 06/02/17 Status: Ordered tiZANidine 2 mg oral tablet 2 mg, 1, tablet, By Mouth, Every 8 hours, PRN, # 90 tablet, Refills 3, Tot. Refills 3, Maintenance,as needed for muscle spasm, 02/08/20 9:24:00 EST, Route to Pharmacy Electronically, [facility] #[id number], Partial fill upon patient request, 167... Start [...]
--- OUTSIDE RECORDS SUMMARY | 2023-09-12 11:22 | XMS_ITS | Continuity of Care Document ---
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 Immunizations Given and Recorded Vaccine Date Status [...] 5 Refills, Maintenance, 05/07/19 10:46:00 EST, Solution, [facility] #46810, 167.64, cm, 04/24/19 16:16:00 EST, Height, 100.4, kg, 08/03/18 10:14:00 EDT, Dry Weight Start Date: 05/07/19 Status: Ordered albuterol-ipratropium 3 mg-0.5 mg/3 ml inhalation solution 1 vials, Inhalation, 4 times a day, # 180 mL, 5 Refills, Maintenance, 07/30/19 11:02:00 EDT, [facility] #11041, 15, INHALE CONTENTS OF 1 VIAL VIA [...] 11 Refills, Maintenance, 04/23/21 14:51:00 EST, Capsule, [facility] #[id number], Partial fill upon patient request if the prescription is for a schedule II opi... Start Date: 04/23/21 Status: Ordered aspirin 81 mg oral delayed release tablet 81 mg, 1, tablet, By Mouth, Daily, # 30 tablet, Refills 5, Tot. Refills 5, Maintenance, 11/02/19 11:39:00 EDT, Route to Pharmacy Electronically, [facility] #01717, 167.64, cm, 11/02/19 10:58:00 EDT, Height, 100.4, [...] tablet, 11 Refills, Maintenance, 01/11/20 10:43:00 EDT, [facility] #19707, 167.64, cm, 11/12/19 15:34:00 EDT, Height, 100.4, [...] each, 5 Refills, Maintenance, 06/05/18 19:53:47 EDT, [place], 1 sprays Nares, Both 2 times a [...] Acute 03/13/22 14:45:00 EST, 03/20/2213:45:00 EST, Ointment, [facility] #[id number], Partial fill upon patient request if the [...] 11 Refills, Maintenance, 03/02/19 10:19:00 EST, Capsule, [facility] #31961, 1 capsule By Mouth Daily, 167.64, cm, [...] Maintenance, 06/02/17 13:39:59, Route to Pharmacy Electronically, [id number], [facility] [address] Start Date: 06/02/17 Status: Ordered tiZANidine 2 mg oral tablet 2 mg, 1, tablet, By Mouth, Every 8 hours, PRN, # 90 tablet, Refills 3, Tot. Refills 3, Maintenance,as needed for muscle spasm, 06/18/21 10:33:00 EDT, Route to Pharmacy Electronically, [facility] #[id number], Partial fill upon patient request, 16... Start [...]
--- OUTSIDE RECORDS SUMMARY | 2023-09-12 11:22 | XMS_ITS | Continuity of Care Document ---
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 Start Date: 01/26/23 Status: Ordered albuterol CFC free 90 mcg/inh inhalation aerosol 2, puffs, Inhalation, 4 times a day, PRN, Dispense brand as required by insurance, # 1 each, Refills 11, Tot. Refills 11, Maintenance, 01/26/23 14:00:00 EST, Aerosol, Route to Pharmacy Electronically, [id number], [facility]. Start Date: 01/26/23 Status: Ordered albuterol-ipratropium 3 mg-0.5 mg/3 ml inhalation solution 1 vials, Inhalation, 4 times a day, # 180 mL, 11 Refills, Maintenance, 01/27/23 9:25:00 EST, [facility] #[id number], 15, 1 vials Inhalation 4 times a [...] tablet, 6 Refills, Maintenance, 12/07/22 16:46:00 EDT, [facility] #[id number], 165, cm, 12/06/22 17:39:00 EDT, Height, 88.2, kg, 05/26/22 7:52:00EDT, Dry Weight Start Date: 12/07/22 Status: Ordered amlodipine-benazepril 5 mg-10 mg oral capsule 1 capsule, By Mouth, Daily, TO. REPLACE BEFORE PRESCRIPTION AMLODIPINE, # 90 capsule, 0 Refills, Maintenance, 04/05/23 10:10:00 EST, [facility] #[id number], 90, TAKE 1 CAPSULE BY MOUTH DAILY TO.REPLACE BEFORE PRESCRIPTION AMLODIPINE, 165, cm, 11... Start Date: 04/05/23 Status: Ordered Bedside Commode See Instructions, # [...] tablet, 3 Refills, Maintenance, 01/26/23 14:00:00 EST, [facility] #60081, 165, cm, 01/26/23 13:31:00 EST, Height, 88.2, kg, 05/26/22 7:52:00 EDT, Dry Weight Start Date: 01/26/23 Stop Date: 01/21/24 Status: Ordered clonazePAM 1 mg oral tablet 1 tablet = 1 mg, By Mouth, 3 times a day, To use sparingly; to fill on/after 04/03/2023, # 90 tablet, 1 Refills, Maintenance, 03/29/23 12:46:00 EST, Tablet, [facility] #59482, Partial fill upon patient request if the prescription is for a rose... Start Date: 03/29/23 Status: Ordered Colace Capsule 100 mg, 1, [...] each, 11 Refills, Maintenance, 09/25/21 11:17:00 EDT, [place], [facility] #46324, 1 sprays Nares, Both 2 times a day,x30 days, 165, cm, 09/25/21 11:04:00 EDT, Height, 96, kg, 07/13/21 10:52:00 EDT, Dry... Start Date: 09/25/21 Stop Date: 09/20/22 Status: Ordered fluconazole 150 mg oral tablet 1 tablet = 150 mg, By Mouth, Once, Repeat dose if still having symptoms in 72 hours, # 2 tablet, 1 Refills, Soft Stop, 04/27/23 14:34:00 EST, Tablet, [facility] #[id number], Partial fill upon patient request if the prescription is for a schedule... Start Date: 04/27/23 Status: Ordered fluticasone 250 mcg/inh inhalation powder 1 puffs, Inhalation, 2 times a day, dispense brand as required by insurance, # 120 each, 11 Refills, Maintenance, 04/29/23 9:44:00 EST, Powder, [facility] #43954, Partial fill upon patient request if the [...] pain; may fill less; May fill on/after 05/24/2023 to replace previous RX, # 180 tablet, 0 Refills, Maintenance, 05/20/23 8... Start Date: 05/20/23 Stop Date: 06/19/23 Status: Ordered Prevacid 30 mg oral enteric coated capsule 1 capsule = 30 mg, By Mouth, Daily, # 90 capsule, 4 Refills, Maintenance, 01/26/23 14:02:00 EST, [facility] #[id number], 165, cm, 01/26/23 13:31:00 EST, Height, 88.2, [...] 01/26/23 14:02:00 EST, Route to Pharmacy Electronically, [facility] #[id number], 165, cm, 01/26/23 13:31:00 EST, Height, 88.2, [...] Care Nurse Name: Lisseth Nassar NP Position: [facility] PCO Associate Professional Member Role: PCP Address: Address: [address] [place] [address]- Name: Edenilson Puckett MD Position: [facility] MIXER AND BLENDER MD Member Role: Lifetime MIXER AND BLENDER Physician Address: Address: [address] [place] [address]- Name: Jovana Park RN Position: [facility] SN RN Member Role: Primary Care Nurse Name: Chidi Clark DO Position: [facility] Renal MD Member Role: Lifetime Consulting Physician Address: Address: [address] [place], [place] [address] [place] [address]- Name: Mireya Torres RN Position: S RN Member Role: Primary Care Nurse Name: Starr Harper RN Position: [facility] SN RN Member Role: Primary Care Nurse Name: Kelly Maddox RN Position: S RN Member Role: Primary Care Nurse Care Team Related Persons Name: KAYLAH MARYA Address: [address] [place] [address] Name: MORALES HOWELL Address: home [address] [place] [address]
--- OUTSIDE RECORDS SUMMARY | 2023-09-12 11:22 | XMS_ITS | Continuity of Care Document ---
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 Refills 11, Maintenance, 11/24/17 13:49:05 EDT, Aerosol, Route to Pharmacy Electronically, [id number], [facility] 70[facility], Compound Start Date: 11/24/17 Status: Ordered albuterol-ipratropium 3 mg-0.5 mg/3 ml inhalation solution 1 vials, Inhalation, 4 times a day, # 180 mL, 5 Refills, Maintenance, 07/30/19 11:02:00 EDT, [email or web address] #88897, 15, INHALE CONTENTS OF 1 VIAL VIA NEBULIZER FOUR TIMES DAILY, 167.64, cm, 04/24/19 16:16:00 EST, Height, 100.4, kg, 08/03/18 10:1... Start Date: 07/30/19 Status: Ordered amlodipine-benazepril 5 mg-10 mg oral capsule 1 capsule, By Mouth, Daily, To replace prior prescription (amlodipine)., # 30 capsule, 11 Refills, Maintenance, 04/23/21 14:51:00 EST, Capsule, [email or web address] #13053, Partial fill upon patient request if the prescription is for a schedule II opi... Start Date: 04/23/21 Status: Ordered aspirin 81 mg oral delayed release tablet 81 mg, 1, tablet, By Mouth, Daily, # 30 tablet, Refills 5, Tot. Refills 5, Maintenance, 11/02/19 11:39:00 EDT, Route to Pharmacy Electronically, [email or web address] #86142, 167.64, cm, 11/02/19 10:58:00 EDT, Height, 100.4, kg, 08/03/18 10:14:00 EDT,... Start Date: 11/02/19 Status: Ordered bacitracin topical 500 u/gm ointment 1 application, Topically, 4 times a day, # 30 Gm, 0 Refills, Maintenance, 09/02/20 15:20:00 EDT, Ointment, [email or web address] #64764, Partial fill upon patient request if the prescription is for a schedule II opioid drug., 1 application Topically 4... Start Date: 09/02/20 Stop Date: 09/12/20 Status: Ordered baclofen 10 mg oral tablet 1, tablet, By Mouth, 3 times a day, # 60 tablet, Refills 0, Tot. Refills 0, Maintenance, 02/25/20 13:59:00 EST, Route to Pharmacy Electronically, [email or web address] #[id number], 167.64, cm, 11/12/19 15:34:00 EDT, Height, 100.4, [...] tablet, 11 Refills, Maintenance, 01/11/20 10:43:00 EDT, [email or web address] #29365, 167.64, cm, 11/12/19 15:34:00 EDT, Height, 100.4, [...] DAILY, # 44 mL, 0 Refills, Maintenance, [facility], 29, SPRAY TWICE IN EACH NOSTRIL FOUR [...] 07/18/20 12:54:00 EDT, [facility] Start Date: 07/18/20 Stop Date: 07/13/21 Status: Ordered Flonase 50 mcg/inh nasal spray 1 sprays, Nares, Both, 2 times a day, # 1 each, 5 Refills, Maintenance, 06/05/18 19:53:47 EDT, [place], 1 sprays Nares, Both 2 times a [...] Acute 03/13/22 14:45:00 EST, 03/20/2213:45:00 EST, [facility]intment, [facility], Partial fill upon patient request if the [...] 11 Refills, Maintenance, 03/02/19 10:19:00 EST, Capsule, [email or web address] #90471, 1 capsule By Mouth Daily, 167.64, cm, [...] 4 HOURS NEEDED FOR NAUSEA OR VOMITING, [email or web address] #78915 Start Date: 12/05/18 Status: Ordered raised toilet [...] Maintenance, 06/02/17 13:39:59, Route to Pharmacy Electronically, [id number], [facility] [address] Start Date: 06/02/17 Status: Ordered tiZANidine 2 mg oral tablet 2 mg, 1, tablet, By Mouth, Every 8 hours, PRN, # 90 tablet, Refills 3, Tot. Refills 3, Maintenance,as needed for muscle spasm, 01/30/21 8:11:00 EST, Route to Pharmacy Electronically, [facility] #52454, Partial fill upon patient request, 167... Start [...]
--- OUTSIDE RECORDS SUMMARY | 2023-09-12 11:22 | XMS_ITS | Continuity of Care Document ---
Author Organization [facility] ter Address [address] [place] [address]- Care Team Providers Care Tax Evaluator Name Role Phone Cesario VALDEZ, Lisseth Hancock Primary Care Physician [place] [facility] [place] - 10/21/[address] [id number] Attending Physician: Jay Vogel NP Admitting Physician: Lela VALDEZ, Jay Nickerson Referring Physician: Lela VALDEZ, Jay Nickerson Allergies, Adverse Reactions, Alerts Substance Reaction Severity Status sulfADIAZINE rash Active sertraline 1 QT wave change Active fentanyl topical passed out Active sulfa drugs rash Active Haldol Agitation Active Bactrim rash Active NSAIDs 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 Start Date: 05/12/22 Status: Ordered albuterol CFC free 90 mcg/inh inhalation aerosol 2, puffs, Inhalation, 4 times a day, PRN, Dispense brand as required by insurance, # 18 Gm, [email or web address], Tot. Refills 11, Maintenance, 05/12/22 11:38:00 EST, Aerosol, Route to Pharmacy Electronically, [id number], [facility]... Start Date: 05/12/22 Status: Ordered albuterol-ipratropium 3 mg-0.5 mg/3 ml inhalation solution 1 vials, Inhalation, 4 times a day, # 180 mL, 11 Refills, Maintenance, 05/12/22 11:38:00 EST, [email or web address] #08392, 15, 1 vials Inhalation 4 times a [...] 11 Refills, Maintenance, 03/01/22 16:04:00 EST, Capsule, [facility] #50019, Partial fill upon patient request if the prescription is for a schedule II opi... Start Date: 03/01/22 Stop Date: 02/13/25 Status: Ordered apixaban 2.5 mg oral tablet 1 tablet = 2.5 mg, By Mouth, 2 times a day, # 60 tablet, 0 Refills, Maintenance, 05/28/22 8:20:00 EDT, Tablet, [facility] 3, Partial fill upon patient request if [...] tablet, 11 Refills, Maintenance, 09/25/21 11:17:00 EDT, [facility] #81932, 165, cm, 09/25/21 11:04:00 EDT, Height, 96, [...] each, 11 Refills, Maintenance, 09/25/21 11:17:00 EDT, [place], [facility] #62242, 1 sprays Nares, Both 2 times a day,x30 days, 165, cm, 09/25/21 11:04:00 EDT, Height, 96, kg, 07/13/21 10:52:00 EDT, Dry... Start Date: 09/25/21 Stop Date: 09/20/22 Status: Ordered Flovent HFA 220 mcg/inh inhalation aerosol 2 puffs, Inhalation, 2 times a day, # 12 Gm, 11 Refills, Maintenance, 05/19/22 13:39:00 EST, Aerosol, [facility] #08528, Partial fill upon patient request if the [...] 03/13/23 15:24:00 EST, 09/01/22 15:23:00 EDT, Ointment, [facility] #13366, Partial fill upon patient request if the [...] 05/12/22 11:38:00 EST, Route to Pharmacy Electronically, [facility] #31897, 168, cm, 05/12/2310:30:00 EST, Height, 85, kg, [...] Care Nurse Name: Lisseth Nassar NP Position: [facility] PCO Associate Professional Member Role: PCP Address: Address: [address] [place] [address]- Name: Edenilson Puckett MD Position: [facility] RESPIRATORY THERAPY MANAGER MD Member Role: Lifetime RESPIRATORY THERAPY MANAGER Physician Address: Address: [address] [place] [address]- Name: Jovana Park RN Position: S RN Member Role: Primary Care Nurse Name: Chidi Clark DO Position: [facility] Renal MD Member Role: Lifetime Consulting Physician Address: Address: [address] [place], [place] [address]E [facility] [place] [address]- Name: Mireya Torres RN Position: S RN Member Role: Primary Care Nurse Name: Kelly Maddox RN Position: S RN Member Role: Primary Care Nurse Care Team Related Persons Name: MARYA ADRIAN Address: home [address] [place] [address] Name: MORALES HOWELL Address: home [address] [place] [address]
--- OUTSIDE RECORDS SUMMARY | 2023-09-12 11:22 | XMS_ITS | Continuity of Care Document ---
Author Organization [facility] Address [address] [place] [address]- Care Team Providers Care Shoemaking Finisher Name Role Phone Cesario MANAGER INTENSIVE CARE, Lisseth Hancock Primary Care Physician [facility] Date(s): 03/10/20 - 04/09/20 [facility] [address] [place] [address] Allergies, Adverse Reactions, Alerts Substance Reaction Severity Status sulfADIAZINE rash Active morphine rash & swelling Active sertraline 1 QT wave change Active sulfa drugs rash Active Bactrim rash Active NSAIDs 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 Refills 11, Maintenance, 11/24/17 13:49:05 EDT, Aerosol, Route to Pharmacy Electronically, [id number], [facility] [address], Compound Start Date: 11/24/17 Status: Ordered albuterol-ipratropium 3 mg-0.5 mg/3 ml inhalation solution 1 vials, Inhalation, 4 times a day, # 180 mL, 5 Refills, Maintenance, 07/30/19 11:02:00 EDT, [facility] #98772, 15, INHALE CONTENTS OF 1 VIAL VIA NEBULIZER FOUR TIMES DAILY, 167.64, cm, 04/24/19 16:16:00 EST, Height, 100.4, kg, 08/03/18 10:1... Start Date: 07/30/19 Status: Ordered amLODIPine 10 mg oral tablet 1 tablet, By Mouth, Daily, # 30 tablet, 6 Refills, Maintenance, 10/04/19 12:22:00 EDT, [facility] #47391, 167.64, cm, 04/24/19 16:16:00 EST, Height, 100.4, kg, 08/03/18 10:14:00 EDT, Dry Weight Start Date: 10/04/19 Status: Ordered aspirin 81 mg oral delayed release tablet 81 mg, 1, tablet, By Mouth, Daily, # 30 tablet, Refills 5, Tot. Refills 5, Maintenance, 11/02/19 11:39:00 EDT, Route to Pharmacy Electronically, [facility] #12732, 167.64, cm, 11/02/19 10:58:00 EDT, Height, 100.4, kg, 08/03/18 10:14:00 EDT,... Start Date: 11/02/19 Status: Ordered baclofen 10 mg oral tablet 1, tablet, By Mouth, 3 times a day, # 60 tablet, Refills 0, Tot. Refills 0, Maintenance, 02/25/20 13:59:00 EST, Route to Pharmacy Electronically, [facility] #27210, 167.64, cm, 11/12/19 15:34:00 EDT, Height, 100.4, [...] tablet, 11 Refills, Maintenance, 01/11/20 10:43:00 EDT, [facility] #83267, 167.64, cm, 11/12/19 15:34:00 EDT, Height, 100.4, [...] DAILY, # 44 mL, 0 Refills, Maintenance, [facility] #62194, 29, SPRAY TWICE IN EACH NOSTRIL FOUR [...] each, 5 Refills, Maintenance, 06/05/18 19:53:47 EDT, [place], 1 sprays Nares, Both 2 times a [...] 11 Refills, Maintenance, 03/02/19 10:19:00 EST, Capsule, [facility] #69925, 1 capsule By Mouth Daily, 167.64, cm, [...] 4 HOURS NEEDED FOR NAUSEA OR VOMITING, [facility] #51662 Start Date: 12/05/18 Status: Ordered raised toilet [...] Maintenance, 06/02/17 13:39:59, Route to Pharmacy Electronically, [id number], [facility] [address] Start Date: 06/02/17 Status: Ordered tiZANidine 2 mg oral tablet 2 mg, 1, tablet, By Mouth, Every 8 hours, PRN, # 90 tablet, Refills 3, Tot. Refills 3, Maintenance,as needed for muscle spasm, 02/08/20 9:24:00 EST, Route to Pharmacy Electronically, [facility] #[id number], Partial fill upon patient request, 167... Start [...]
--- OUTSIDE RECORDS SUMMARY | 2023-09-12 11:22 | XMS_ITS | Continuity of Care Document ---
Author Organization [facility] Address [address] [place] [address]- Care Team Providers Care Door Paneler Name Role Phone Cesario VALDEZ, Lisseth Hancock. 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 Immunizations Given and Recorded Vaccine Date Status Refusal Reason influenza virus vaccine, inactivated 12/27/17 Give n influenza virus vaccine, inactivated 01/06/16 Give n influenza virus vaccine, inactivated 03/13/15 Give n influenza virus vaccine, inactivated 1 12/24/09 Gi cecilia tetanus/diphtheria/pertussis, acel(Tdap) 05/29/13 Given Hepatitis B Vaccine (old term) 2 12/24/09 Given Hepatitis B Vaccine (old term) 10/19/04 Given 1Admin Note: VIS 10/21/09 2Admin Note: vis 09/28/2006 Medications albuterol CFC free 90 mcg/inh inhalation aerosol 2, puffs, Inhalation, 4 times a day, PRN, # 25 Gm, Refills 11, Tot. Refills 11, Maintenance, 11/24/17 13:49:05 EDT, Aerosol, Route to Pharmacy Electronically, [id number], [facility] [address]2626, Compound Start Date: 11/24/17 Status: Ordered albuterol-ipratropium 3 mg-0.5 mg/3 ml inhalation solution 3 mL, Inhalation, 4 times a day, # 60 each, 6 Refills, Maintenance, 02/17/18 14:50:32 EST, Solution, 3 mL Inhalation 4 times a day Start Date: 02/17/18 Status: Ordered amLODIPine 10 mg oral tablet 10 mg, 1, tablet, By Mouth, Daily, # 30 tablet, Refills 5, Tot. Refills 5, Maintenance, 08/10/18 14:07:26 EDT, Route to Pharmacy Electronically, [id number], [facility] [address]26 Start Date: 08/10/18 Stop Date: 02/06/19 Status: Ordered baclofen 10 mg oral tablet 10 mg, 1, tablet, By Mouth, 3 times a day, # 60 tablet, Refills 2, Tot. Refills 2, Maintenance, 09/11/18 16:10:46 EDT, Route to Pharmacy Electronically, [id number], [facility] [address]648 Start Date: 09/11/18 Status: Ordered Bedside Commode See Instructions, # 1 each, Maintenance, please dispense bedside commode Dx M48.00, M54.5, R10.9, M17.10; length of need 99, 08/02/18 8:14:44 EDT, [facility] Start Date: 08/02/18 Status: Ordered cetirizine 10 mg oral tablet 1 tablet = 10 mg, By Mouth, Daily, # 30 tablet, 5 Refills, Maintenance, 09/28/18 11:50:40 EDT, Tablet Start Date: 09/28/18 Status: Ordered clonazePAM 0.5 mg oral tablet [...] Ordered Compression Stockings See Instructions, # 2 pair, Maintenance, surgical, calf length 20-30 mm Hg, Dx lower leg edema R60.0, 01/26/18 10:01:00 EST, [facility] Start Date: 01/26/18 Status: Ordered Compression Stockings See Instructions, # [...] each, 5 Refills, Maintenance, 06/05/18 19:53:47 EDT, [place], 1 sprays Nares, Both 2 times a [...] a day Start Date: 06/02/17 Status: Ordered hydrocortisone 1% topical cream 1 application, Topically, 2 times a day, # 30 Gm, 11 Refills, Acute 03/13/19 9:53:00 EST, 01/12/19 9:53:35 EDT, Cream, 1 application Topically 2 times a day Start Date: 01/12/19 Stop Date: 03/13/19 Status: Ordered Lyrica 75 mg oral capsule 1 capsule = 75 mg, By Mouth, 2 times a day, # 60 capsule, 5 Refills, Maintenance, 12/19/18 9:15:42 EDT, Capsule Start Date: 12/19/18 Status: Ordered multivitamin Multiple Vitamins oral capsule 1 capsule, By Mouth, Daily, # 30 capsule, 11 Refills, Maintenance, 03/02/19 10:19:00 EST, Capsule, [facility] #70719, 1 capsule By Mouth Daily, 167.64, cm, 03/02/19 9:49:00 EST, Height, 100.4, kg, 08/03/18 10:14:00 EDT, Dry Weight Start Date: 03/02/19 Status: Ordered NexIUM 24HR 20 mg oral [...] 4 HOURS NEEDED FOR NAUSEA OR VOMITING, [facility]46449 Start Date: 12/05/18 Status: Ordered raised toilet [...] M54.5, R10.9, M17.10; length of need 99, 08/02/18 8:16:56 EDT, [facility] Start Date: 08/02/18 Status: Ordered Singulair 10 mg oral tablet 10 mg, 1, tablet, By Mouth, Daily in PM, # 30 tablet, Refills 5, Tot. Refills 5, Maintenance, 06/02/17 13:39:59, Route to Pharmacy Electronically, [id number], [facility] [address] Start Date: 06/02/17 Status: Ordered Transfer Bench [...] 100kg length of need99 Dx M17.1, M54.16, 08/03/18 16:23:47 EDT, [facility] Start Date: 08/03/18 Status: Ordered Zantac 300 oral tablet 1 tablet = 300 mg, By Mouth, Daily at bedtime, # 30 tablet, 2 Refills, Maintenance, 06/07/18 15:01:00 EDT, Tablet Start Date: 06/07/18 Status: Ordered Problem List Condition Effective Dates Status Health Status Inform ant Abdominal pain(Confirmed) Active Anxiety(Confirmed) Active Bipolar disorder - is on depakote(Confirmed) Active Breakthrough bleeding on dep o provera(Confirmed) Active History of LSIL 01/02/14 and ASCUS HPV+ 02/23/11, otherwise all paps normal. Last pap smear 04/29/16 negative.(Confirmed) Active Chronic abdominal pain(Confirmed) Active Chronic sinusitis(Confirmed) Active Discoloration of skin(Confirmed) Active Dysmenorrhea(Confirmed) Active Lower leg edema(Confirmed) Active [...]
--- OUTSIDE RECORDS SUMMARY | 2023-09-12 11:23 | XMS_ITS | Continuity of Care Document ---
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 Refills 11, Maintenance, 11/24/17 13:49:05 EDT, Aerosol, Route to Pharmacy Electronically, [id number], [id number], Compound Start Date: 11/24/17 Status: Ordered albuterol-ipratropium 3 mg-0.5 mg/3 ml inhalation solution 1 vials, Inhalation, 4 times a day, # 180 mL, 5 Refills, Maintenance, 07/30/19 11:02:00 EDT, [facility] #[id number], 15, INHALE CONTENTS OF 1 VIAL VIA NEBULIZER FOUR TIMES DAILY, 167.64, cm, 04/24/19 16:16:00 EST, Height, 100.4, kg, 08/03/18 10:1... Start Date: 07/30/19 Status: Ordered amLODIPine 10 mg oral tablet 1 tablet, By Mouth, Daily, # 30 tablet, 6 Refills, Maintenance, 10/04/19 12:22:00 EDT, [facility] #[id number], 167.64, cm, 04/24/19 16:16:00 EST, Height, 100.4, kg, 08/03/18 10:14:00 EDT, Dry Weight Start Date: 10/04/19 Status: Ordered aspirin 81 mg oral delayed release tablet 81 mg, 1, tablet, By Mouth, Daily, # 30 tablet, Refills 5, Tot. Refills 5, Maintenance, 11/02/19 11:39:00 EDT, Route to Pharmacy Electronically, [facility] #[id number], 167.64, cm, 11/02/19 10:58:00 EDT, Height, 100.4, kg, 08/03/18 10:14:00 EDT,... Start Date: 11/02/19 Status: Ordered baclofen 10 mg oral tablet 1, tablet, By Mouth, 3 times a day, # 60 tablet, Refills 2, Tot. Refills 2, Maintenance, 06/14/19 9:10:00 EDT, Route to Pharmacy Electronically, [facility] #[id number], 167.64, cm, 04/24/19 16:16:00 EST, Height, 100.4, [...] 5 Refills, Maintenance, 04/16/19 13:06:00 EST, Tablet, [facility] #[id number], 167.64, cm, 03/02/19 10:23:00 EST, Height, 100.4, [...] DAILY, # 44 mL, 0 Refills, Maintenance, [facility] #[id number], 29, SPRAY TWICE IN EACH NOSTRIL FOUR [...] each, 5 Refills, Maintenance, 06/05/18 19:53:47 EDT, [place], 1 sprays Nares, Both 2 times a [...] 11 Refills, Maintenance, 03/02/19 10:19:00 EST, Capsule, [facility] #[id number], 1 capsule By Mouth Daily, 167.64, cm, [...] 4 HOURS NEEDED FOR NAUSEA OR VOMITING, [facility] #[id number] Start Date: 12/05/18 Status: Ordered raised toilet [...] Maintenance, 06/02/17 13:39:59, Route to Pharmacy Electronically, [id number], [facility] [address] Start Date: 06/02/17 Status: Ordered Transfer Bench [...]
--- OUTSIDE RECORDS SUMMARY | 2023-09-12 11:23 | XMS_ITS | Continuity of Care Document ---
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 Start Date: 05/12/22 Status: Ordered albuterol CFC free 90 mcg/inh inhalation aerosol 2, puffs, Inhalation, 4 times a day, PRN, Dispense brand as required by insurance, # 18 Gm, [id number], Tot. Refills 11, Maintenance, 05/12/22 11:38:00 EST, Aerosol, Route to Pharmacy Electronically, [id number], [facility]... Start Date: 05/12/22 Status: Ordered albuterol-ipratropium 3 mg-0.5 mg/3 ml inhalation solution 1 vials, Inhalation, 4 times a day, # 180 mL, 11 Refills, Maintenance, 05/12/22 11:38:00 EST, [facility] #[id number], 15, 1 vials Inhalation 4 times a [...] 11 Refills, Maintenance, 03/01/22 16:04:00 EST, Capsule, [facility] #[id number], Partial fill upon patient request if the prescription is for a schedule II opi... Start Date: 03/01/22 Stop Date: 02/13/25 Status: Ordered apixaban 2.5 mg oral tablet 1 tablet = 2.5 mg, By Mouth, 2 times a day, # 60 tablet, 0 Refills, Maintenance, 05/28/22 8:20:00 EDT, Tablet, [facility] 3, Partial fill upon patient request [...] tablet, 11 Refills, Maintenance, 09/25/21 11:17:00 EDT, [facility] #[id number], 165, cm, 09/25/21 11:04:00 EDT, Height, 96, [...] each, 11 Refills, Maintenance, 09/25/21 11:17:00 EDT, [place], [facility] #45925, 1 sprays Nares, Both 2 times a day,x30 days, 165, cm, 09/25/21 11:04:00 EDT, Height, 96, kg, 07/13/21 10:52:00 EDT, Dry... Start Date: 09/25/21 Stop Date: 09/20/22 Status: Ordered Flovent HFA 220 mcg/inh inhalation aerosol 2 puffs, Inhalation, 2 times a day, # 12 Gm, 11 Refills, Maintenance, 05/19/22 13:39:00 EST, Aerosol, [facility] #[id number], Partial fill upon patient request if the [...] 05/12/22 11:38:00 EST, Route to Pharmacy Electronically, [facility] #[id number], 168, cm, 05/12/2310:30:00 EST, Height, 85, kg, [...] Team Personnel Name: Tristin Hunt RN Position: [facility] RN Member Role: Primary Care Nurse Name: Lisseth Nassar NP Position: [facility] PCO Associate Professional Member Role: PCP Address: Address: [address] [place] [address]- Name: Edenilson Puckett MD Position: [facility] MAGNETIC RESONANCE IMAGING DIRECTOR MD Member Role: Lifetime MAGNETIC RESONANCE IMAGING DIRECTOR Physician Address: Address: [address] [place] [address]- Name: Jovana Park RN Position: [facility] RN Member Role: Primary Care Nurse Name: Chidi Clark DO Position: [facility] Renal MD Member Role: Lifetime Consulting Physician Address: Address: [address] [place] [address] [address] [facility] [place] [place] [address] Name: Mireya Torres RN Position: S RN Member Role: Primary Care Nurse Name: Kelly Maddox RN Position: S RN Member Role: Primary Care Nurse Care Team Related Persons Name: MARYA ADRIAN Address: home [address] [place] [address] Name: MORALES HOWELL Address: home [address] [place] [address]
--- OUTSIDE RECORDS SUMMARY | 2023-09-12 11:23 | XMS_ITS | Continuity of Care Document ---
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 Start Date: 01/26/23 Status: Ordered albuterol CFC free 90 mcg/inh inhalation aerosol 2, puffs, Inhalation, 4 times a day, PRN, Dispense brand as required by insurance, # 1 each, Refills 11, Tot. Refills 11, Maintenance, 01/26/23 14:00:00 EST, Aerosol, Route to Pharmacy Electronically, [id number], [facility]. Start Date: 01/26/23 Status: Ordered albuterol-ipratropium 3 mg-0.5 mg/3 ml inhalation solution 1 vials, Inhalation, 4 times a day, # 180 mL, 11 Refills, Maintenance, 01/27/23 9:25:00 EST, [facility] #[id number], 15, 1 vials Inhalation 4 times a [...] tablet, 6 Refills, Maintenance, 12/07/22 16:46:00 EDT, [facility] #[id number], 165, cm, 12/06/22 17:39:00 EDT, Height, 88.2, kg, 05/26/22 7:52:00EDT, Dry Weight Start Date: 12/07/22 Status: Ordered amlodipine-benazepril 5 mg-10 mg oral capsule 1 capsule, By Mouth, Daily, To replace prior prescription (amlodipine)., # 90 capsule, 11 Refills, Maintenance, 03/01/22 16:04:00 EST, Capsule, [facility] #[id number], Partial fill upon patient request if the [...] tablet, 3 Refills, Maintenance, 01/26/23 14:00:00 EST, [facility] #[id number], 165, cm, 01/26/23 13:31:00 EST, Height, 88.2, [...] each, 11 Refills, Maintenance, 09/25/21 11:17:00 EDT, [place], [facility] #02289, 1 sprays Nares, Both 2 times a day,x30 days, 165, cm, 09/25/21 11:04:00 EDT, Height, 96, kg, 07/13/21 10:52:00 EDT, Dry... Start Date: 09/25/21 Stop Date: 09/20/22 Status: Ordered fluconazole 150 mg oral tablet 1 tablet = 150 mg, By Mouth, Once, Repeat dose if still having symptoms in 72 hours, # 2 tablet, 1 Refills, Soft Stop, 01/26/23 14:19:00 EST, Tablet, [facility] #[id number], Partial fill upon patient request if the [...] 11 Refills, Maintenance, 01/26/23 14:04:00 EST, Aerosol, [facility] #[id number], Partial fill upon patient request if the prescription is for a s... Start Date: 01/26/23 Status: Ordered mupirocin 2% topical ointment 1 application, Topically, 3 times a day, # 30 Gm, 2 Refills, Acute 03/13/23 15:24:00 EST, 09/01/22 15:23:00 EDT, Ointment, [facility] #[id number], Partial fill upon patient request if the [...] capsule, 4 Refills, Maintenance, 01/26/23 14:02:00 EST, [facility] #[id number], 165, cm, 01/26/23 13:31:00 EST, Height, 88.2, [...] 01/26/23 14:02:00 EST, Route to Pharmacy Electronically, [facility] #[id number], 165, cm, 01/26/23 13:31:00 EST, Height, 88.2, [...] Team Personnel Name: Tristin Hunt RN Position: [facility] RN Member Role: Primary Care Nurse Name: Lisseth Nassar NP Position: [facility] PCO Associate Professional Member Role: PCP Address: Address: [address] [place] [address]- Name: Edenilson Puckett MD Position: [facility] FINANCIAL SECRETARY MD Member Role: [employer]etime FINANCIAL SECRETARY Physician Address: Address: [address] [place] [address]- Name: Jovana Park RN Position: [facility] SN RN Member Role: Primary Care Nurse Name: Chidi Clark DO Position: [facility] Renal MD Member Role: Lifetime Consulting Physician Address: Address: [address] [place] [address] [address] [facility] [place] [address]- Name: Mireya Torres RN Position: S RN Member Role: Primary Care Nurse Name: Starr Harper RN Position: [facility] SN RN Member Role: Primary Care Nurse Name: Kelly Maddox RN Position: S RN Member Role: Primary Care Nurse Care Team Related Persons Name: MARYA ADRIAN Address: home [address] [place] [address] Name: MORALES HOWELL Address: home [address] [place] [id number]
--- OUTSIDE RECORDS SUMMARY | 2023-09-12 11:23 | XMS_ITS | Continuity of Care Document ---
Author Organization 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 Refills 11, Maintenance, 11/24/17 13:49:05 EDT, Aerosol, Route to Pharmacy Electronically, [id number], [facility] 18[facility], Compound Start Date: 11/24/17 Status: Ordered albuterol-ipratropium 3 mg-0.5 mg/3 ml inhalation solution 1 vials, Inhalation, 4 times a day, # 180 mL, 5 Refills, Maintenance, 07/30/19 11:02:00 EDT, [facility] #[id number], 15, INHALE CONTENTS OF 1 VIAL VIA NEBULIZER FOUR TIMES DAILY, 167.64, cm, 04/24/19 16:16:00 EST, Height, 100.4, kg, 08/03/18 10:1... Start Date: 07/30/19 Status: Ordered amLODIPine 10 mg oral tablet 1 tablet, By Mouth, Daily, # 30 tablet, 5 Refills, Maintenance, 05/06/20 12:30:00 EST, [facility] #[id number], 167.64, cm, 03/25/20 14:59:00 EST, Height, 100.4, kg, 08/03/18 10:14:00 EDT, Dry Weight Start Date: 05/06/20 Status: Ordered aspirin 81 mg oral delayed release tablet 81 mg, 1, tablet, By Mouth, Daily, # 30 tablet, Refills 5, Tot. Refills 5, Maintenance, 11/02/19 11:39:00 EDT, Route to Pharmacy Electronically, [facility] #[id number], 167.64, cm, 11/02/19 10:58:00 EDT, Height, 100.4, kg, 08/03/18 10:14:00 EDT,... Start Date: 11/02/19 Status: Ordered baclofen 10 mg oral tablet 1, tablet, By Mouth, 3 times a day, # 60 tablet, Refills 0, Tot. Refills 0, Maintenance, 02/25/20 13:59:00 EST, Route to Pharmacy Electronically, [facility] #[id number], 167.64, cm, 11/12/19 15:34:00 EDT, Height, 100.4, [...] tablet, 11 Refills, Maintenance, 01/11/20 10:43:00 EDT, [facility] #[id number], 167.64, cm, 11/12/19 15:34:00 EDT, Height, 100.4, [...] DAILY, # 44 mL, 0 Refills, Maintenance, [facility] #72248, 29, SPRAY TWICE IN EACH NOSTRIL FOUR [...] each, 5 Refills, Maintenance, 06/05/18 19:53:47 EDT, [place], 1 sprays Nares, Both 2 times a [...] 11 Refills, Maintenance, 03/02/19 10:19:00 EST, Capsule, [facility] #[id number], 1 capsule By Mouth Daily, 167.64, cm, [...] 4 HOURS NEEDED FOR NAUSEA OR VOMITING, [facility] #[id number] Start Date: 12/05/18 Status: Ordered raised toilet [...] Maintenance, 06/02/17 13:39:59, Route to Pharmacy Electronically, [id number], [facility] [address] Start Date: 06/02/17 Status: Ordered tiZANidine 2 mg oral tablet 2 mg, 1, tablet, By Mouth, Every 8 hours, PRN, # 90 tablet, Refills 3, Tot. Refills 3, Maintenance,as needed for muscle spasm, 02/08/20 9:24:00 EST, Route to Pharmacy Electronically, [facility] #[id number], Partial fill upon patient request, 167... Start [...]
--- OUTSIDE RECORDS SUMMARY | 2023-09-12 11:23 | XMS_ITS | Continuity of Care Document ---
Author Organization 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 Start Date: 01/26/23 Status: Ordered albuterol CFC free 90 mcg/inh inhalation aerosol 2, puffs, Inhalation, 4 times a day, PRN, Dispense brand as required by insurance, # 1 each, Refills 11, Tot. Refills 11, Maintenance, 01/26/23 14:00:00 EST, Aerosol, Route to Pharmacy Electronically, [id number], [facility]. Start Date: 01/26/23 Status: Ordered albuterol-ipratropium 3 mg-0.5 mg/3 ml inhalation solution 1 vials, Inhalation, 4 times a day, # 180 mL, 11 Refills, Maintenance, 01/27/23 9:25:00 EST, [facility] #[id number], 15, 1 vials Inhalation 4 times a [...] tablet, 6 Refills, Maintenance, 05/30/23 14:38:00 EDT, [facility] #[id number], 165, cm, 05/30/23 14:22:00 EDT, Height, 88.2, kg, 05/26/22 7:52:00EDT, Dry Weight Start Date: 05/30/23 Stop Date: 02/18/25 Status: Ordered amlodipine-benazepril 5 mg-10 mg oral capsule 1 capsule, By Mouth, Daily, TO. REPLACE BEFORE PRESCRIPTION AMLODIPINE, # 90 capsule, 3 Refills, Maintenance, 05/30/23 14:38:00 EDT, [facility] #01662, 90, 1 capsule By Mouth Daily,Instr:TO. REPLACE [...] tablet, 3 Refills, Maintenance, 11/15/23 14:00:00 EST, [facility] #07393, 165, cm, 01/26/23 13:31:00 EST, Height, 88.2, kg, 05/26/22 7:52:00 EDT, Dry Weight Start Date: 01/26/23 Stop Date: 01/21/24 Status: Ordered clonazePAM 1 mg oral tablet 1 tablet = 1 mg, By Mouth, 3 times a day, To use sparingly; to fill on/after 05/30/2023, # 90 tablet, 1 Refills, Maintenance, 05/30/23 14:36:00 EDT, Tablet, [facility] #99674, Partial fill upon patient request if the prescription is for a rose... Start Date: 05/30/23 Status: Ordered Colace Capsule 100 mg, 1, [...] each, 11 Refills, Maintenance, 09/25/21 11:17:00 EDT, [place], [facility] #[id number], 1 sprays Nares, Both 2 times a day,x30 days, 165, cm, 09/25/21 11:04:00 EDT, Height, 96, kg, 07/13/21 10:52:00 EDT, Dry... Start Date: 09/25/21 Stop Date: 09/20/22 Status: Ordered fluconazole 150 mg oral tablet 1 tablet = 150 mg, By Mouth, Once, Repeat dose if still having symptoms in 72 hours, # 2 tablet, 1 Refills, Soft Stop, 04/27/23 14:34:00 EST, [facility] #[id number], Partial fill upon patient request if the prescription is for a schedule... Start Date: 04/27/23 Status: Ordered fluticasone 250 mcg/inh inhalation powder 1 puffs, Inhalation, 2 times a day, dispense brand as required by insurance, # 120 each, 11 Refills, Maintenance, 04/29/23 9:44:00 EST, [place], [facility] #[id number], Partial fill upon patient request if the [...] pain; may fill less; May fill on/after 06/22/2023 to replace previous RX, # 180 tablet, 0 Refills, Maintenance, 06/22/23 7... Start Date: 06/22/23 Stop Date: 07/22/23 Status: Ordered pantoprazole 40 mg oral delayed [...] capsule, 4 Refills, Maintenance, 01/26/23 14:02:00 EST, [facility] #[id number], 165, cm, 01/26/23 13:31:00 EST, Height, 88.2, [...] 01/26/23 14:02:00 EST, Route to Pharmacy Electronically, [facility] #[id number], 165, cm, 01/26/23 13:31:00 EST, Height, 88.2, [...] Team Personnel Name: Tristin Hunt RN Position: [facility] RN Member Role: Primary Care Nurse Name: Lisseth Nassar NP Position: [facility] PCO Associate Professional Member Role: PCP Address: Address: [address] [place] [phone]- Name: Edenilson Puckett MD Position: [facility] SALES AND TRAINING SPECIALIST MD Member Role: Lifetime SALES AND TRAINING SPECIALIST Physician Address: Address: [address] [place] [id number]- [place] Name: Jovana Park RN Position: [facility] RN Member Role: Primary Care Nurse Name: Chidi Clark DO Position: [facility] Renal MD Member Role: Lifetime Consulting Physician Address: Address: [address] [place], [place] [address] [place] [address]- Name: Mireya Torres RN Position: [facility] RN Member Role: Primary Care Nurse Name: Starr Harper RN Position: [facility] AMB Nurse Member Role: Primary Care Nurse Name: Kelly Maddox RN Position: [facility] RN Member Role: Primary Care Nurse Care Team Related Persons Name: AMRYA ADRIAN Address: home [address] [place] [address] Name: MORALES HOWELL Address: home [address] [place] [id number]
--- OUTSIDE RECORDS SUMMARY | 2023-09-12 11:23 | XMS_ITS | Continuity of Care Document ---
Author Organization [facility] Tory tayler Address [address] [place] [address] D[address] [place] [address]- Care Team Providers Care Senior Energy Consultant Name Role Phone Cesario VALDEZ, Lisseth Hancock Primary Care Physician En[facility] Date(s): 09/04/20 - 10/04/20 [facility] [address] [place] [address] Drive [address] [place] [address]- Allergies, Adverse Reactions, Alerts Substance Reaction Severity Status sulfADIAZINE rash Active morphine rash & swelling Active sertraline 1 QT wave change Active sulfa drugs rash Active Bactrim rash Active NSAIDs 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 Refills 11, Maintenance, 11/24/17 13:49:05 EDT, Aerosol, Route to Pharmacy Electronically, [id number], [facility], Compound Start Date: 11/24/17 Status: Ordered albuterol-ipratropium 3 mg-0.5 mg/3 ml inhalation solution 1 vials, Inhalation, 4 times a day, # 180 mL, 5 Refills, Maintenance, 07/30/19 11:02:00 EDT, [facility] #[id number], 15, INHALE CONTENTS OF 1 VIAL VIA NEBULIZER FOUR TIMES DAILY, 167.64, cm, 04/24/19 16:16:00 EST, Height, 100.4, kg, 08/03/18 10:1... Start Date: 07/30/19 Status: Ordered amLODIPine 10 mg oral tablet 1 tablet, By Mouth, Daily, # 30 tablet, 5 Refills, Maintenance, 05/06/20 12:30:00 EST, [facility] #45377, 167.64, cm, 03/25/20 14:59:00 EST, Height, 100.4, kg, 08/03/18 10:14:00 EDT, Dry Weight Start Date: 05/06/20 Status: Ordered aspirin 81 mg oral delayed release tablet 81 mg, 1, tablet, By Mouth, Daily, # 30 tablet, Refills 5, Tot. Refills 5, Maintenance, 11/02/19 11:39:00 EDT, Route to Pharmacy Electronically, [facility] #[id number], 167.64, cm, 11/02/19 10:58:00 EDT, Height, 100.4, kg, 08/03/18 10:14:00 EDT,... Start Date: 11/02/19 Status: Ordered bacitracin topical 500 u/gm ointment 1 application, Topically, 4 times a day, # 30 Gm, 0 Refills, Maintenance, 09/02/20 15:20:00 EDT, Ointment, [facility] #48793, Partial fill upon patient request if the prescription is for a schedule II opioid drug., 1 application Topically 4... Start Date: 09/02/20 Stop Date: 09/12/20 Status: Ordered baclofen 10 mg oral tablet 1, tablet, By Mouth, 3 times a day, # 60 tablet, Refills 0, Tot. Refills 0, Maintenance, 02/25/20 13:59:00 EST, Route to Pharmacy Electronically, [facility] #03690, 167.64, cm, 11/12/19 15:34:00 EDT, Height, 100.4, [...] tablet, 11 Refills, Maintenance, 01/11/20 10:43:00 EDT, [facility] #74554, 167.64, cm, 11/12/19 15:34:00 EDT, Height, 100.4, [...] DAILY, # 44 mL, 0 Refills, Maintenance, [id number], 29, SPRAY TWICE IN EACH NOSTRIL FOUR [...] each, 5 Refills, Maintenance, 06/05/18 19:53:47 EDT, [place], 1 sprays Nares, Both 2 times a [...] 11 Refills, Maintenance, 03/02/19 10:19:00 EST, Capsule, [facility] #50715, 1 capsule By Mouth Daily, 167.64, cm, [...] 4 HOURS NEEDED FOR NAUSEA OR VOMITING, [facility] #85264 Start Date: 12/05/18 Status: Ordered raised toilet [...] Maintenance, 06/02/17 13:39:59, Route to Pharmacy Electronically, [id number], [facility] Start Date: 06/02/17 Status: Ordered tiZANidine 2 mg oral tablet 2 mg, 1, tablet, By Mouth, Every 8 hours, PRN, # 90 tablet, Refills 3, Tot. Refills 3, Maintenance,as needed for muscle spasm, 02/08/20 9:24:00 EST, Route to Pharmacy Electronically, [facility] #[id number], Partial fill upon patient request, 167... Start [...]
--- OUTSIDE RECORDS SUMMARY | 2023-09-12 11:23 | XMS_ITS | Continuity of Care Document ---
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 Start Date: 05/12/22 Status: Ordered albuterol CFC free 90 mcg/inh inhalation aerosol 2, puffs, Inhalation, 4 times a day, PRN, Dispense brand as required by insurance, # 18 Gm, Mgatpsn22, Tot. Refills 11, Maintenance, 05/12/22 11:38:00 EST, Aerosol, Route to Pharmacy Electronically, [id number], [facility]... Start Date: 05/12/22 Status: Ordered albuterol-ipratropium 3 mg-0.5 mg/3 ml inhalation solution 1 vials, Inhalation, 4 times a day, # 180 mL, 11 Refills, Maintenance, 05/12/22 11:38:00 EST, [facility] #73063, 15, 1 vials Inhalation 4 times a [...] 11 Refills, Maintenance, 03/01/22 16:04:00 EST, Capsule, [facility] #98086, Partial fill upon patient request if the prescription is for a schedule II opi... Start Date: 03/01/22 Stop Date: 02/13/25 Status: Ordered apixaban 2.5 mg oral tablet 1 tablet = 2.5 mg, By Mouth, 2 times a day, # 60 tablet, 0 Refills, Maintenance, 05/28/22 8:20:00 EDT, Tablet, [facility] 3, Partial fill upon patient request [...] tablet, 11 Refills, Maintenance, 09/25/21 11:17:00 EDT, [facility] #85253, 165, cm, 09/25/21 11:04:00 EDT, Height, 96, [...] each, 11 Refills, Maintenance, 09/25/21 11:17:00 EDT, [place], [facility] #69676, 1 sprays Nares, Both 2 times a day,x30 days, 165, cm, 09/25/21 11:04:00 EDT, Height, 96, kg, 07/13/21 10:52:00 EDT, Dry... Start Date: 09/25/21 Stop Date: 09/20/22 Status: Ordered Flovent HFA 220 mcg/inh inhalation aerosol 2 puffs, Inhalation, 2 times a day, # 12 Gm, 11 Refills, Maintenance, 05/19/22 13:39:00 EST, Aerosol, [facility] #09204, Partial fill upon patient request if the [...] 03/13/23 15:24:00 EST, 09/01/22 15:23:00 EDT, Ointment, [facility] #11710, Partial fill upon patient request if the [...] Date: 10/12/22 Stop Date: 10/16/22 Status: Ordered oxyCODONE 15 mg oral tablet 1 tablet = 15 mg, By Mouth, Every 4 hours, PRN as needed for pain, Pt on narcotic contract; MassPatchecked; Dx chronic low back pain; may fill less; May fill on/after 12/02/2022, # 180 tablet, 0 Refills, Maintenance, 11/29/22 8:26:00 EDT, Tablet, [facility]... Start Date: 11/29/22 Stop Date: 12/29/22 Status: Ordered Prevacid 30 mg oral enteric [...] 05/12/22 11:38:00 EST, Route to Pharmacy Electronically, [facility] #[id number], 168, cm, 05/12/2310:30:00 EST, Height, 85, kg, [...] Associate Professional Member Role: PCP Address: Address: [address] [place] [address]- Name: Edenilson Puckett MD Position: [facility] ADVERTISING PHOTOGRAPHER MD Member Role: Lifetime ADVERTISING PHOTOGRAPHER Physician Address: Address: [address] [place] [address]- Name: Jovana Park RN Position: [facility] RN Member Role: Primary Care Nurse Name: Chidi Clark DO Position: [facility] Renal MD Member Role: Lifetime Consulting Physician Address: Address: [address] [place] [address] [address] [facility] [place] [address]- Name: Mireya Torres RN Position: [facility] RN Member Role: Primary Care Nurse Name: Starr Harper RN Position: [facility] SN RN Member Role: Primary Care Nurse Name: Kelly Maddox RN Position: [facility] RN Member Role: Primary Care Nurse Care Team Related Persons Name: KAYLAH MARYA Address: home [address] [place] [address] Name: MORALES HOWELL Address: home [address] [place] [address]
--- OUTSIDE RECORDS SUMMARY | 2023-09-12 11:23 | XMS_ITS | Continuity of Care Document ---
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 Refills 11, Maintenance, 11/24/17 13:49:05 EDT, Aerosol, Route to Pharmacy Electronically, [id number], [facility], Compound Start Date: 11/24/17 Status: Ordered albuterol-ipratropium 3 mg-0.5 mg/3 ml inhalation solution 1 vials, Inhalation, 4 times a day, # 180 mL, 5 Refills, Maintenance, 07/30/19 11:02:00 EDT, [facility] #79656, 15, INHALE CONTENTS OF 1 VIAL VIA NEBULIZER FOUR TIMES DAILY, 167.64, cm, 04/24/19 16:16:00 EST, Height, 100.4, kg, 08/03/18 10:1... Start Date: 07/30/19 Status: Ordered amLODIPine 10 mg oral tablet 1 tablet, By Mouth, Daily, # 30 tablet, 6 Refills, Maintenance, 10/04/19 12:22:00 EDT, [facility] #52056, 167.64, cm, 04/24/19 16:16:00 EST, Height, 100.4, kg, 08/03/18 10:14:00 EDT, Dry Weight Start Date: 10/04/19 Status: Ordered aspirin 81 mg oral delayed release tablet 81 mg, 1, tablet, By Mouth, Daily, # 30 tablet, Refills 5, Tot. Refills 5, Maintenance, 11/02/19 11:39:00 EDT, Route to Pharmacy Electronically, [facility] #[id number], 167.64, cm, 11/02/19 10:58:00 EDT, Height, 100.4, kg, 08/03/18 10:14:00 EDT,... Start Date: 11/02/19 Status: Ordered baclofen 10 mg oral tablet 1, tablet, By Mouth, 3 times a day, # 60 tablet, Refills 0, Tot. Refills 0, Maintenance, 02/25/20 13:59:00 EST, Route to Pharmacy Electronically, [facility] #[id number], 167.64, cm, 11/12/19 15:34:00 EDT, Height, 100.4, [...] tablet, 11 Refills, Maintenance, 01/11/20 10:43:00 EDT, [facility] #38120, 167.64, cm, 11/12/19 15:34:00 EDT, Height, 100.4, [...] DAILY, # 44 mL, 0 Refills, Maintenance, [facility] #95343, 29, SPRAY TWICE IN EACH NOSTRIL FOUR [...] each, 5 Refills, Maintenance, 06/05/18 19:53:47 EDT, [place], 1 sprays Nares, Both 2 times a [...] 11 Refills, Maintenance, 03/02/19 10:19:00 EST, Capsule, [facility] #81207, 1 capsule By Mouth Daily, 167.64, cm, [...] 4 HOURS NEEDED FOR NAUSEA OR VOMITING, [facility]00583 Start Date: 12/05/18 Status: Ordered raised toilet [...] Maintenance, 06/02/17 13:39:59, Route to Pharmacy Electronically, [id number], [facility] [address] Start Date: 06/02/17 Status: Ordered tiZANidine 2 mg oral tablet 2 mg, 1, tablet, By Mouth, Every 8 hours, PRN, # 90 tablet, Refills 3, Tot. Refills 3, Maintenance,as needed for muscle spasm, 02/08/20 9:24:00 EST, Route to Pharmacy Electronically, [facility] #[id number], Partial fill upon patient request, 167... Start [...]
--- OUTSIDE RECORDS SUMMARY | 2023-09-12 11:24 | XMS_ITS | Continuity of Care Document ---
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 Start Date: 05/12/22 Status: Ordered albuterol CFC free 90 mcg/inh inhalation aerosol 2, puffs, Inhalation, 4 times a day, PRN, Dispense brand as required by insurance, # 18 Gm, [id number], Tot. Refills 11, Maintenance, 05/12/22 11:38:00 EST, Aerosol, Route to Pharmacy Electronically, [id number], [facility]... Start Date: 05/12/22 Status: Ordered albuterol-ipratropium 3 mg-0.5 mg/3 ml inhalation solution 1 vials, Inhalation, 4 times a day, # 180 mL, 11 Refills, Maintenance, 05/12/22 11:38:00 EST, [facility] #24906, 15, 1 vials Inhalation 4 times a [...] tablet, 6 Refills, Maintenance, 12/07/22 16:46:00 EDT, [facility] #66515, 165, cm, 12/06/22 17:39:00 EDT, Height, 88.2, kg, 05/26/22 7:52:00EDT, Dry Weight Start Date: 12/07/22 Status: Ordered amlodipine-benazepril 5 mg-10 mg oral capsule 1 capsule, By Mouth, Daily, To replace prior prescription (amlodipine)., # 90 capsule, 11 Refills, Maintenance, 03/01/22 16:04:00 EST, Capsule, [facility] #41765, Partial fill upon patient request if the prescription is for a schedule II opi... Start Date: 03/01/22 Stop Date: 02/13/25 Status: Ordered apixaban 2.5 mg oral tablet 1 tablet = 2.5 mg, By Mouth, 2 times a day, # 60 tablet, 0 Refills, Maintenance, 05/28/22 8:20:00 EDT, Tablet, [facility] 3, Partial fill upon patient request if [...] tablet, 11 Refills, Maintenance, 09/25/21 11:17:00 EDT, [facility] #06822, 165, cm, 09/25/21 11:04:00 EDT, Height, 96, [...] each, 11 Refills, Maintenance, 09/25/21 11:17:00 EDT, [place], [facility] #57605, 1 sprays Nares, Both 2 times a day,x30 days, 165, cm, 09/25/21 11:04:00 EDT, Height, 96, kg, 07/13/21 10:52:00 EDT, Dry... Start Date: 09/25/21 Stop Date: 09/20/22 Status: Ordered Flovent HFA 220 mcg/inh inhalation aerosol 2 puffs, Inhalation, 2 times a day, # 12 Gm, 11 Refills, Maintenance, 05/19/22 13:39:00 EST, [facility], Partial fill upon patient request if the [...] 03/13/23 15:24:00 EST, 09/01/22 15:23:00 EDT, Ointment, [facility] #58403, Partial fill upon patient request if the [...] 05/12/22 11:38:00 EST, Route to Pharmacy Electronically, [facility] #65129, 168, cm, 05/12/2310:30:00 EST, Height, 85, kg, [...] Team Personnel Name: Tristin Hunt RN Position: [facility] RN Member Role: Primary Care Nurse Name: Lisseth Nassar NP Position: [facility] PCO Associate Professional Member Role: PCP Address: Address: [address] [place] [address]- Name: Lavern SPENCER, Edenilson Chen Position: [facility] PAIRER SUBSTANDARD MD Member Role: Lifetime PAIRER SUBSTANDARD Physician Address: Address: [address] [place] [id number]- Name: Jovana Park RN Position: S RN Member Role: Primary Care Nurse Name: Chidi Clark DO Position: [facility] Renal MD Member Role: Lifetime Consulting Physician Address: Address: [address] [place], [place] [address] [place] [address]- Name: Mireya Torres RN Position: [facility] RN Member Role: Primary Care Nurse Name: Starr Harper RN Position: [facility] SN RN Member Role: Primary Care Nurse Name: Kelly Maddox RN Position: S RN Member Role: Primary Care Nurse Care Team Related Persons Name: MARYA ADRIAN Address: home [address] [place] [address] Name: MORALES HOWELL Address: home [address] [place] [address]
--- OUTSIDE RECORDS SUMMARY | 2023-09-12 11:24 | XMS_ITS | Continuity of Care Document ---
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 Refills 11, Maintenance, 11/24/17 13:49:05 EDT, Aerosol, Route to Pharmacy Electronically, [id number], [facility], Compound Start Date: 11/24/17 Status: Ordered albuterol-ipratropium 3 mg-0.5 mg/3 ml inhalation solution 1 vials, Inhalation, 4 times a day, # 180 mL, 5 Refills, Maintenance, 07/30/19 11:02:00 EDT, [facility] #75618, 15, INHALE CONTENTS OF 1 VIAL VIA NEBULIZER FOUR TIMES DAILY, 167.64, cm, 04/24/19 16:16:00 EST, Height, 100.4, kg, 08/03/18 10:1... Start Date: 07/30/19 Status: Ordered amLODIPine 10 mg oral tablet 1 tablet, By Mouth, Daily, # 30 tablet, 5 Refills, Maintenance, 05/06/20 12:30:00 EST, [facility] #56102, 167.64, cm, 03/25/20 14:59:00 EST, Height, 100.4, kg, 08/03/18 10:14:00 EDT, Dry Weight Start Date: 05/06/20 Status: Ordered aspirin 81 mg oral delayed release tablet 81 mg, 1, tablet, By Mouth, Daily, # 30 tablet, Refills 5, Tot. Refills 5, Maintenance, 11/02/19 11:39:00 EDT, Route to Pharmacy Electronically, [facility] #38686, 167.64, cm, 11/02/19 10:58:00 EDT, Height, 100.4, kg, 08/03/18 10:14:00 EDT,... Start Date: 11/02/19 Status: Ordered bacitracin topical 500 u/gm ointment 1 application, Topically, 4 times a day, # 30 Gm, 0 Refills, Maintenance, 09/02/20 15:20:00 EDT, Ointment, [facility] #14157, Partial fill upon patient request if the prescription is for a schedule II opioid drug., 1 application Topically 4... Start Date: 09/02/20 Stop Date: 09/12/20 Status: Ordered baclofen 10 mg oral tablet 1, tablet, By Mouth, 3 times a day, # 60 tablet, Refills 0, Tot. Refills 0, Maintenance, 02/25/20 13:59:00 EST, Route to Pharmacy Electronically, [facility] #76550, 167.64, cm, 11/12/19 15:34:00 EDT, Height, 100.4, [...] tablet, 11 Refills, Maintenance, 01/11/20 10:43:00 EDT, [facility] #87066, 167.64, cm, 11/12/19 15:34:00 EDT, Height, 100.4, [...] DAILY, # 44 mL, 0 Refills, Maintenance, [facility] #52743, 29, SPRAY TWICE IN EACH NOSTRIL FOUR [...] each, 5 Refills, Maintenance, 06/05/18 19:53:47 EDT, [place], 1 sprays Nares, Both 2 times a [...] 11 Refills, Maintenance, 03/02/19 10:19:00 EST, Capsule, [facility] #55200, 1 capsule By Mouth Daily, 167.64, cm, [...] 4 HOURS NEEDED FOR NAUSEA OR VOMITING, [facility] #[id number] Start Date: 12/05/18 Status: Ordered raised toilet [...] Maintenance, 06/02/17 13:39:59, Route to Pharmacy Electronically, [id number], [facility] [address] Start Date: 06/02/17 Status: Ordered tiZANidine 2 mg oral tablet 2 mg, 1, tablet, By Mouth, Every 8 hours, PRN, # 90 tablet, Refills 3, Tot. Refills 3, Maintenance,as needed for muscle spasm, 02/08/20 9:24:00 EST, Route to Pharmacy Electronically, [facility] #75478, Partial fill upon patient request, 167... Start [...] reflu x disease)(Confirmed) Active 5, Para 3205. 12/19/ 91 section. 11/18/92 section. 11/05/97 section due to [...]
--- OUTSIDE RECORDS SUMMARY | 2023-09-12 11:24 | XMS_ITS | Continuity of Care Document ---
Author Organization 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 Refills 11, Maintenance, 11/24/17 13:49:05 EDT, Aerosol, Route to Pharmacy Electronically, [id number], [facility] [address], Compound Start Date: 11/24/17 Status: Ordered albuterol-ipratropium 3 mg-0.5 mg/3 ml inhalation solution 1 vials, Inhalation, 4 times a day, # 180 mL, 5 Refills, Maintenance, 07/30/19 11:02:00 EDT, [facility] #[id number], 15, INHALE CONTENTS OF 1 VIAL VIA NEBULIZER FOUR TIMES DAILY, 167.64, cm, 04/24/19 16:16:00 EST, Height, 100.4, kg, 08/03/18 10:1... Start Date: 07/30/19 Status: Ordered amLODIPine 10 mg oral tablet 1 tablet, By Mouth, Daily, # 30 tablet, 5 Refills, Maintenance, 05/06/20 12:30:00 EST, [facility] #[id number], 167.64, cm, 03/25/20 14:59:00 EST, Height, 100.4, kg, 08/03/18 10:14:00 EDT, Dry Weight Start Date: 05/06/20 Status: Ordered aspirin 81 mg oral delayed release tablet 81 mg, 1, tablet, By Mouth, Daily, # 30 tablet, Refills 5, Tot. Refills 5, Maintenance, 11/02/19 11:39:00 EDT, Route to Pharmacy Electronically, [facility] #[id number], 167.64, cm, 11/02/19 10:58:00 EDT, Height, 100.4, kg, 08/03/18 10:14:00 EDT,... Start Date: 11/02/19 Status: Ordered bacitracin topical 500 u/gm ointment 1 application, Topically, 4 times a day, # 30 Gm, 0 Refills, Maintenance, 09/02/20 15:20:00 EDT, Ointment, [facility] #[id number], Partial fill upon patient request if the prescription is for a schedule II opioid drug., 1 application Topically 4... Start Date: 09/02/20 Stop Date: 09/12/20 Status: Ordered baclofen 10 mg oral tablet 1, tablet, By Mouth, 3 times a day, # 60 tablet, Refills 0, Tot. Refills 0, Maintenance, 02/25/20 13:59:00 EST, Route to Pharmacy Electronically, [facility] #[id number], 167.64, cm, 11/12/19 15:34:00 EDT, Height, 100.4, [...] tablet, 11 Refills, Maintenance, 01/11/20 10:43:00 EDT, [facility] #72225, 167.64, cm, 11/12/19 15:34:00 EDT, Height, 100.4, [...] DAILY, # 44 mL, 0 Refills, Maintenance, [facility] #95566, 29, SPRAY TWICE IN EACH NOSTRIL FOUR [...] each, 5 Refills, Maintenance, 06/05/18 19:53:47 EDT, [place], 1 sprays Nares, Both 2 times a [...] 11 Refills, Maintenance, 03/02/19 10:19:00 EST, Capsule, [facility] #[id number], 1 capsule By Mouth Daily, 167.64, cm, [...] 4 HOURS NEEDED FOR NAUSEA OR VOMITING, [facility] #[id number] Start Date: 12/05/18 Status: Ordered raised toilet [...] Maintenance, 06/02/17 13:39:59, Route to Pharmacy Electronically, [id number], [facility] [address] Start Date: 06/02/17 Status: Ordered tiZANidine 2 mg oral tablet 2 mg, 1, tablet, By Mouth, Every 8 hours, PRN, # 90 tablet, Refills 3, Tot. Refills 3, Maintenance,as needed for muscle spasm, 02/08/20 9:24:00 EST, Route to Pharmacy Electronically, [facility] #[id number], Partial fill upon patient request, 167... Start [...]
--- OUTSIDE RECORDS SUMMARY | 2023-09-12 11:24 | XMS_ITS | Continuity of Care Document ---
Author Organization 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 Refills 11, Maintenance, 11/24/17 13:49:05 EDT, Aerosol, Route to Pharmacy Electronically, [id number], [facility] [address], Compound Start Date: 11/24/17 Status: Ordered albuterol-ipratropium 3 mg-0.5 mg/3 ml inhalation solution 1 vials, Inhalation, 4 times a day, # 180 mL, 5 Refills, Maintenance, 07/30/19 11:02:00 EDT, [facility] #[id number], 15, INHALE CONTENTS OF 1 VIAL VIA NEBULIZER FOUR TIMES DAILY, 167.64, cm, 04/24/19 16:16:00 EST, Height, 100.4, kg, 08/03/18 10:1... Start Date: 07/30/19 Status: Ordered amLODIPine 10 mg oral tablet 1 tablet, By Mouth, Daily, # 30 tablet, 5 Refills, Maintenance, 05/06/20 12:30:00 EST, [facility] #17156, 167.64, cm, 03/25/20 14:59:00 EST, Height, 100.4, kg, 08/03/18 10:14:00 EDT, Dry Weight Start Date: 05/06/20 Status: Ordered aspirin 81 mg oral delayed release tablet 81 mg, 1, tablet, By Mouth, Daily, # 30 tablet, Refills 5, Tot. Refills 5, Maintenance, 11/02/19 11:39:00 EDT, Route to Pharmacy Electronically, [facility] #[id number], 167.64, cm, 11/02/19 10:58:00 EDT, Height, 100.4, kg, 08/03/18 10:14:00 EDT,... Start Date: 11/02/19 Status: Ordered bacitracin topical 500 u/gm ointment 1 application, Topically, 4 times a day, # 30 Gm, 0 Refills, Maintenance, 09/02/20 15:20:00 EDT, Ointment, [facility] #[id number], Partial fill upon patient request if the prescription is for a schedule II opioid drug., 1 application Topically 4... Start Date: 09/02/20 Stop Date: 09/12/20 Status: Ordered baclofen 10 mg oral tablet 1, tablet, By Mouth, 3 times a day, # 60 tablet, Refills 0, Tot. Refills 0, Maintenance, 02/25/20 13:59:00 EST, Route to Pharmacy Electronically, [facility] #[id number], 167.64, cm, 11/12/19 15:34:00 EDT, Height, 100.4, [...] tablet, 11 Refills, Maintenance, 01/11/20 10:43:00 EDT, [facility] #[id number], 167.64, cm, 11/12/19 15:34:00 EDT, Height, 100.4, [...] DAILY, # 44 mL, 0 Refills, Maintenance, [id number], 29, SPRAY TWICE IN EACH NOSTRIL FOUR [...] each, 5 Refills, Maintenance, 06/05/18 19:53:47 EDT, [place], 1 sprays Nares, Both 2 times a [...] 11 Refills, Maintenance, 03/02/19 10:19:00 EST, Capsule, [facility] #48501, 1 capsule By Mouth Daily, 167.64, cm, [...] 4 HOURS NEEDED FOR NAUSEA OR VOMITING, [facility] #[id number] Start Date: 12/05/18 Status: Ordered raised toilet [...] Maintenance, 06/02/17 13:39:59, Route to Pharmacy Electronically, [id number], [facility] [address] Start Date: 06/02/17 Status: Ordered tiZANidine 2 mg oral tablet 2 mg, 1, tablet, By Mouth, Every 8 hours, PRN, # 90 tablet, Refills 3, Tot. Refills 3, Maintenance,as needed for muscle spasm, 02/08/20 9:24:00 EST, Route to Pharmacy Electronically, [facility] #13808, Partial fill upon patient request, 167... Start [...]
--- OUTSIDE RECORDS SUMMARY | 2023-09-12 11:24 | XMS_ITS | Continuity of Care Document ---
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 Start Date: 01/26/23 Status: Ordered albuterol CFC free 90 mcg/inh inhalation aerosol 2, puffs, Inhalation, 4 times a day, PRN, Dispense brand as required by insurance, # 1 each, Refills 11, Tot. Refills 11, Maintenance, 01/26/23 14:00:00 EST, Aerosol, Route to Pharmacy Electronically, [id number], [facility]. Start Date: 01/26/23 Status: Ordered albuterol-ipratropium 3 mg-0.5 mg/3 ml inhalation solution 1 vials, Inhalation, 4 times a day, # 180 mL, 11 Refills, Maintenance, 01/27/23 9:25:00 EST, [facility] #[id number], 15, 1 vials Inhalation 4 times a [...] tablet, 6 Refills, Maintenance, 12/07/22 16:46:00 EDT, [facility] #56042, 165, cm, 12/06/22 17:39:00 EDT, Height, 88.2, kg, 05/26/22 7:52:00EDT, Dry Weight Start Date: 12/07/22 Status: Ordered amlodipine-benazepril 5 mg-10 mg oral capsule 1 capsule, By Mouth, Daily, To replace prior prescription (amlodipine)., # 90 capsule, 11 Refills, Maintenance, 03/01/22 16:04:00 EST, Capsule, [facility] #61809, Partial fill upon patient request if the [...] tablet, 3 Refills, Maintenance, 01/26/23 14:00:00 EST, [facility] #36310, 165, cm, 01/26/23 13:31:00 EST, Height, 88.2, [...] each, 11 Refills, Maintenance, 09/25/21 11:17:00 EDT, [place], [facility] #09126, 1 sprays Nares, Both 2 times a day,x30 days, 165, cm, 09/25/21 11:04:00 EDT, Height, 96, kg, 07/13/21 10:52:00 EDT, Dry... Start Date: 09/25/21 Stop Date: 09/20/22 Status: Ordered fluconazole 150 mg oral tablet 1 tablet = 150 mg, By Mouth, Once, Repeat dose if still having symptoms in 72 hours, # 2 tablet, 1 Refills, Soft Stop, 01/26/23 14:19:00 EST, Tablet, [facility] #07312, Partial fill upon patient request if the [...] 11 Refills, Maintenance, 01/26/23 14:04:00 EST, Aerosol, [facility] #41482, Partial fill upon patient request if the prescription is for a s... Start Date: 01/26/23 Status: Ordered mupirocin 2% topical ointment 1 application, Topically, 3 times a day, # 30 Gm, 2 Refills, Acute 03/13/23 15:24:00 EST, 09/01/22 15:23:00 EDT, Ointment, [facility] #96077, Partial fill upon patient request if the [...] capsule, 4 Refills, Maintenance, 01/26/23 14:02:00 EST, [facility] #42238, 165, cm, 01/26/23 13:31:00 EST, Height, 88.2, [...] 01/26/23 14:02:00 EST, Route to Pharmacy Electronically, [facility] #[id number], 165, cm, 01/26/23 13:31:00 EST, Height, 88.2, [...] Team Personnel Name: Tristin Hunt RN Position: [facility] RN Member Role: Primary Care Nurse Name: Lisseth Nassar NP Position: [facility] PCO Associate Professional Member Role: PCP Address: Address: [address] [place] [address]- Name: Edenilson Puckett MD Position: [facility] MACHINE SHOP WORKER MD Member Role: Lifetime MACHINE SHOP WORKER Physician Address: Address: [address] [place] [address]- Name: Jovana Park RN Position: [facility] SN RN Member Role: Primary Care Nurse Name: Chidi Clark DO Position: [facility] Renal MD Member Role: Lifetime Consulting Physician Address: Address: [address] [place] [address] [address] [facility] [place] [address]- Name: Mireya Torres RN Position: S RN Member Role: Primary Care Nurse Name: Starr Harper RN Position: [facility] SN RN Member Role: Primary Care Nurse Name: Kelly Maddox RN Position: S RN Member Role: Primary Care Nurse Care Team Related Persons Name: MARYA ADRIAN Address: home [address] [place] [address] Name: MORALES HOWELL Address: home [address] [place] [id number]
--- OUTSIDE RECORDS SUMMARY | 2023-09-12 11:24 | XMS_ITS | Continuity of Care Document ---
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 Start Date: 01/26/23 Status: Ordered albuterol CFC free 90 mcg/inh inhalation aerosol 2, puffs, Inhalation, 4 times a day, PRN, Dispense brand as required by insurance, # 1 each, Refills 11, Tot. Refills 11, Maintenance, 01/26/23 14:00:00 EST, Aerosol, Route to Pharmacy Electronically, [id number], [facility]. Start Date: 01/26/23 Status: Ordered albuterol-ipratropium 3 mg-0.5 mg/3 ml inhalation solution 1 vials, Inhalation, 4 times a day, # 180 mL, 11 Refills, Maintenance, 01/27/23 9:25:00 EST, [facility] #[id number], 15, 1 vials Inhalation 4 times a [...] tablet, 6 Refills, Maintenance, 12/07/22 16:46:00 EDT, [facility] #[id number], 165, cm, 12/06/22 17:39:00 EDT, Height, 88.2, kg, 05/26/22 7:52:00EDT, Dry Weight Start Date: 12/07/22 Status: Ordered amlodipine-benazepril 5 mg-10 mg oral capsule 1 capsule, By Mouth, Daily, TO. REPLACE BEFORE PRESCRIPTION AMLODIPINE, # 90 capsule, 0 Refills, Maintenance, 04/05/23 10:10:00 EST, [facility] #22202, 90, TAKE 1 CAPSULE BY MOUTH DAILY [...] tablet, 3 Refills, Maintenance, 01/26/23 14:00:00 EST, [facility] #[id number], 165, cm, 01/26/23 13:31:00 EST, Height, 88.2, kg, 05/26/22 7:52:00 EDT, Dry Weight Start Date: 01/26/23 Stop Date: 01/21/24 Status: Ordered clonazePAM 1 mg oral tablet 1 tablet = 1 mg, By Mouth, 3 times a day, To use sparingly; to fill on/after 04/03/2023, # 90 tablet, 1 Refills, Maintenance, 03/29/23 12:46:00 EST, Tablet, [facility] #81023, Partial fill upon patient request if the [...] each, 11 Refills, Maintenance, 09/25/21 11:17:00 EDT, [place], [facility] #49573, 1 sprays Nares, Both 2 times a day,x30 days, 165, cm, 09/25/21 11:04:00 EDT, Height, 96, kg, 07/13/21 10:52:00 EDT, Dry... Start Date: 09/25/21 Stop Date: 09/20/22 Status: Ordered fluconazole 150 mg oral tablet 1 tablet = 150 mg, By Mouth, Once, Repeat dose if still having symptoms in 72 hours, # 2 tablet, 1 Refills, Soft Stop, 04/27/23 14:34:00 EST, Tablet, [facility] #58896, Partial fill upon patient request if the prescription is for a schedule... Start Date: 04/27/23 Status: Ordered fluticasone 250 mcg/inh inhalation powder 1 puffs, Inhalation, 2 times a day, dispense brand as required by insurance, # 120 each, 11 Refills, Maintenance, 04/29/23 9:44:00 EST, Powder, [facility] #41539, Partial fill upon patient request if the [...] capsule, 4 Refills, Maintenance, 01/26/23 14:02:00 EST, [facility] #09962, 165, cm, 01/26/23 13:31:00 EST, Height, 88.2, [...] 01/26/23 14:02:00 EST, Route to Pharmacy Electronically, [facility] #[id number], 165, cm, 01/26/23 13:31:00 EST, Height, 88.2, [...] Care Nurse Name: Lisseth Nassar NP Position: [facility] PCO Associate Professional Member Role: PCP Address: Address: [address] [place] [address]- Name: Edenilson Puckett MD Position: [facility] BETTING AGENCY MANAGER MD Member Role: Lifetime BETTING AGENCY MANAGER Physician Address: Address: [address] [place] [address]- Name: Jovana Park RN Position: [facility] SN RN Member Role: Primary Care Nurse Name: Chidi Clark DO Position: [facility] Renal MD Member Role: Lifetime Consulting Physician Address: Address: [address] [place], [place] [address] [place] [address]- Name: Mireya Torres RN Position: S RN Member Role: Primary Care Nurse Name: Starr Harper RN Position: [facility] SN RN Member Role: Primary Care Nurse Name: Kelly Maddox RN Position: S RN Member Role: Primary Care Nurse Care Team Related Persons Name: KAYLAH MARYA Address: [address] [place] [address] Name: MORALES HOWELL Address: home [address] [place] [address]
--- OUTSIDE RECORDS SUMMARY | 2023-09-12 11:24 | XMS_ITS | Continuity of Care Document ---
Author Organization 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 Start Date: 05/12/22 Status: Ordered albuterol CFC free 90 mcg/inh inhalation aerosol 2, puffs, Inhalation, 4 times a day, PRN, Dispense brand as required by insurance, # 18 Gm, [id number], Tot. Refills 11, Maintenance, 05/12/22 11:38:00 EST, Aerosol, Route to Pharmacy Electronically, [id number], [facility]... Start Date: 05/12/22 Status: Ordered albuterol-ipratropium 3 mg-0.5 mg/3 ml inhalation solution 1 vials, Inhalation, 4 times a day, # 180 mL, 11 Refills, Maintenance, 05/12/22 11:38:00 EST, [facility] #[id number], 15, 1 vials Inhalation 4 times a [...] 11 Refills, Maintenance, 03/01/22 16:04:00 EST, Capsule, [facility] #36937, Partial fill upon patient request if the prescription is for a schedule II opi... Start Date: 03/01/22 Stop Date: 02/13/25 Status: Ordered apixaban 2.5 mg oral tablet 1 tablet = 2.5 mg, By Mouth, 2 times a day, # 60 tablet, 0 Refills, Maintenance, 05/28/22 8:20:00 EDT, Tablet, [facility], Partial fill upon patient request [...] tablet, 11 Refills, Maintenance, 09/25/21 11:17:00 EDT, [facility] #28831, 165, cm, 09/25/21 11:04:00 EDT, Height, 96, [...] each, 11 Refills, Maintenance, 09/25/21 11:17:00 EDT, [place], [facility] #36954, 1 sprays Nares, Both 2 times a day,x30 days, 165, cm, 09/25/21 11:04:00 EDT, Height, 96, kg, 07/13/21 10:52:00 EDT, Dry... Start Date: 09/25/21 Stop Date: 09/20/22 Status: Ordered Flovent HFA 220 mcg/inh inhalation aerosol 2 puffs, Inhalation, 2 times a day, # 12 Gm, 11 Refills, Maintenance, 05/19/22 13:39:00 EST, Aerosol, [facility] #13999, Partial fill upon patient request if the [...] 03/13/23 15:24:00 EST, 09/01/22 15:23:00 EDT, [facility], [facility], Partial fill upon patient request if the [...] 05/12/22 11:38:00 EST, Route to Pharmacy Electronically, [facility] #[id number], 168, cm, 05/12/2310:30:00 EST, Height, 85, kg, [...] RN Member Role: Primary Care Nurse Name: Cesario PUBLIC HEALTH REPRESENTATIVELisseth Position: [facility] PCO Associate Professional Member Role: PCP Address: Address: [address] [place] [id number]- Name: Edenilson Puckett MD Position: [facility] MANAGER FUND MD Member Role: Lifetime MANAGER FUND Physician Address: Address: [address] [place] [address]- Name: Jovana Park RN Position: [facility] RN Member Role: Primary Care Nurse Name: Chidi Clark DO Position: [facility] Renal MD Member Role: Lifetime Consulting Physician Address: Address: [address] [place] [address] [address] [facility] [place] [address]- Name: Mireya Torres RN Position: S RN Member Role: Primary Care Nurse Name: Kelly Maddox RN Position: S RN Member Role: Primary Care Nurse Care Team Related Persons Name: MARYA ADRIAN Address: home [address] [place] [address] Name: MORALES HOWELL Address: home [address] [place] [address]
--- OUTSIDE RECORDS SUMMARY | 2023-09-12 11:24 | XMS_ITS | Continuity of Care Document ---
Author Organization [facility] Address [address] [place] [address]- Care Team Providers Care Type Bar And Segment Assembler Name Role Phone Cesario VALDEZ, Lisseth Hancock Primary Care Physician Encounter 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 Start Date: 10/19/21 Status: Ordered albuterol-ipratropium 3 mg-0.5 mg/3 ml inhalation solution 1 vials, Inhalation, 4 times a day, # 180 mL, 5 Refills, Maintenance, 07/30/19 11:02:00 EDT, [facility] #[id number], 15, INHALE CONTENTS OF 1 VIAL VIA [...] tablet, 11 Refills, Maintenance, 12/07/21 8:02:00 EDT, [facility] #[id number], 165, cm, 10/27/21 1:44:00 EDT, Height, 90.9, kg, 10/27/21 1:44:00 EDT, Dry Weight Start Date: 12/07/21 Status: Ordered amlodipine-benazepril 5 mg-10 mg oral capsule 1 capsule, By Mouth, Daily, To replace prior prescription (amlodipine)., # 90 capsule, 11 Refills, Maintenance, 03/01/22 16:04:00 EST, Capsule, [facility] #[id number], Partial fill upon patient request if the prescription is for a schedule II opi... Start Date: 03/01/22 Stop Date: 02/13/25 Status: Ordered aspirin 81 mg oral delayed release tablet 81 mg, 1, tablet, By Mouth, Daily, # 30 tablet, Refills 5, Tot. Refills 5, Maintenance, 11/02/19 11:39:00 EDT, Route to Pharmacy Electronically, [facility] #[id number], 167.64, cm, 11/02/19 10:58:00 EDT, Height, 100.4, kg, 08/03/18 10:14:00 EDT,... Start Date: 11/02/19 Status: Ordered baclofen 10 mg oral tablet 10 mg, 1, tablet, By Mouth, Daily at bedtime, # 30 tablet, Refills 5, Tot. Refills 5, Maintenance, 02/09/22 13:45:00 EST, Route to Pharmacy Electronically, [facility] #[id number], Partial fill upon patient request if the [...] tablet, 11 Refills, Maintenance, 09/25/21 11:17:00 EDT, [facility] #[id number], 165, cm, 09/25/21 11:04:00 EDT, Height, 96, [...] each, 11 Refills, Maintenance, 09/25/21 11:17:00 EDT, [place], [facility] #[id number], 1 sprays Nares, Both 2 times a day,x30 days, 165, cm, 09/25/21 11:04:00 EDT, Height, 96, kg, 07/13/21 10:52:00 EDT, Dry... Start Date: 09/25/21 Stop Date: 09/20/22 Status: Ordered fluconazole 150 mg oral tablet 1 tablet = 150 mg, By Mouth, Once, Repeat dose if still having symptoms in 72 hours, # 2 tablet, 0 Refills, Soft Stop, 02/09/22 13:43:00 EST, Tablet, [facility] #[id number], Partial fill upon patient request if the [...] 11 Refills, Maintenance, 03/02/19 10:19:00 EST, Capsule, [facility] #[id number], 1 capsule By Mouth Daily, 167.64, cm, [...] Dx chronic low back pain; may fill less;, # 126 tablet, 0 Refills, Maintenance, 03/10/22 10:18:00 EST, Tablet, [facility] #00297, [place]... Start Date: 03/10/22 Stop Date: 03/31/22 Status: Ordered Paxlovid 150 mg-100 mg oral tablet See Instructions, 300mg nirmatrelvir (two 150mg tablets) with 100mg ritonavir (one tablet). All 3 tablets taken together twice daily By Mouth for 5 days, with or without food, # 30 tablet, 0 Refills,Maintenance, 10/18/21 16:41:00 EDT, [facility]... Start Date: 10/18/21 Status: Ordered Prevacid [...] 09/25/21 11:17:00 EDT, Route to Pharmacy Electronically, [facility] #[id number], 165, cm, 09/25/2210:04:00 EDT, Height, 96, kg, 07/13/21 10:52:00 EDT... Start Date: 09/25/21 Status: Ordered tiZANidine 2 mg oral tablet 2 mg, 1, tablet, By Mouth, Every 8 hours, PRN, # 90 tablet, Refills 3, Tot. Refills 3, Maintenance,as needed for muscle spasm, 06/18/21 10:33:00 EDT, Route to Pharmacy Electronically, [facility] #[id number], Partial fill upon patient request, 16... Start [...] Type Response Tobacco Use: MARIJUANA. Sex Female Hospital Consult note * Event Display: Inpatient Consult Note, Non-BH Authored Date: * Event Display: Inpatient Consult Note, Non-BH Authored Date: * Event Display: Inpatient Consult Note, Non-BH Authored Date: Note * Event Display: IR Special Procedures, Non-BH Authored Date: * Event Display: Non BH Lab Results Authored Date: * Event Display: IR Special Procedures, Non-BH Authored Date: * Event Display: Non BH Lab Results Authored Date: * Event Display: Non BH Lab Results Authored Date: * Event Display: MRI Knee Authored Date: * Event Display: NM Nuclear Medicine Authored Date: * Event Display: IR Special Procedures, Non-BH Authored Date: * Event Display: Holter Report Authored Date: * Event Display: Non BH Radiology Results Authored Date: * Lili Arellano: PERFORM Event Display: Radiology Results Scanned Authored Date: * Sunshine Monique: PERFORM Event Display: Radiology Results Scanned Authored Date: * Vicki , Laxmi: PERFORM Event Display: Cardiovascular Results Scanned Authored Date: * Vicki , Laxmi: PERFORM Event Display: Cardiovascular Results Scanned Authored Date: Cardiology Consult note * Event Display: Consult Note Cardiology Authored Date: * Event Display: Consult Note Cardiology Authored Date: * Event Display: Consult Note Cardiology Authored Date: US Lower extremity * Event Display: Ultrasound Lower Extremity Authored Date: Patient Care team information Care Team Personnel Name: Lisseth Nassar NP Position: [facility] PCO Associate Professional Member Role: PCP Address: Address: [address] [place] [address]- [place] Name: Lavern SPENCER, Edenilson Chen Position: [facility] AUTOMOBILE BRAKES BONDER MD Member Role: Lifetime AUTOMOBILE BRAKES BONDER Physician Address: Address: [address] [place] [address]- [place] Name: Chidi Clark DO Position: [facility] Renal MD Member Role: Lifetime Consulting Physician Address: Address: [address] [place] [address] [address] [facility] [place] [address]- [place] Name: Starr Harper RN Position: [facility] RN Member Role: Primary Care Nurse Care Team Related Persons Name: MARYA ADRIAN Address: home [address] [place] [id number]
--- OUTSIDE RECORDS SUMMARY | 2023-09-12 11:24 | XMS_ITS | Continuity of Care Document ---
Author Organization [facility] Address [address] [place] [address]- Care Team Providers Care Cancer Program Director Name Role Phone Cesario VALDEZ, Lisseth Terrell Primary Care Physician Encounter [facility] Date(s): 04/24/19 - 05/04/[address] [address]- [facility] Attending Physician: Admtr, Janette Allergies, Adverse Reactions, Alerts Substance Reaction Severity Status sulfADIAZINE rash Active morphine rash & swelling Active sertraline 1 QT wave change Active sulfa drugs rash Active Bactrim rash Active NSAIDs 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 Active 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 Refills 1, Maintenance, 03/19/19 9:35:00 EST, Route to Pharmacy Electronically, [facility] #[id number], 167.64, cm, 03/02/19 10:23:00 EST, Height, 100.4, kg, 08/03/18 10:14:00 EDT, D... Start Date: 03/19/19 Stop Date: 05/18/19 Status: Ordered baclofen 10 mg oral tablet 1, tablet, By Mouth, 3 times a day, # 60 tablet, Refills 0, Tot. Refills 0, Maintenance, 04/16/19 14:21:00 EST, Route to Pharmacy Electronically, [facility] #[id number], 167.64, cm, 03/02/19 10:23:00 EST, Height, 100.4, [...] 5 Refills, Maintenance, 04/16/19 13:06:00 EST, Tablet, [facility] #[id number], 167.64, cm, 03/02/19 10:23:00 EST, Height, 100.4, [...] each, 5 Refills, Maintenance, 06/05/18 19:53:47 EDT, [place], 1 sprays Nares, Both 2 times a [...] 11 Refills, Maintenance, 03/02/19 10:19:00 EST, Capsule, [facility] #[id number], 1 capsule By Mouth Daily, 167.64, cm, [...] 4 HOURS NEEDED FOR NAUSEA OR VOMITING, [facility] #[id number] Start Date: 12/05/18 Status: Ordered raised toilet [...] Maintenance, 06/02/17 13:39:59, Route to Pharmacy Electronically, [id number], [facility] [address] Start Date: 06/02/17 Status: Ordered Transfer Bench [...]
--- OUTSIDE RECORDS SUMMARY | 2023-09-12 11:25 | XMS_ITS | Continuity of Care Document ---
Author Organization [facility] Address [address] [place] [address] [address] [place] [address]- Care Team Providers Care Safety Investigator/Cause Analyst Name Role Phone Cesario VALDEZ, Lisseth Hancock Primary Care Physician Encounter [facility] Date(s): 09/03/20 - 09/10/20 [facility] [address] [place] [address] Drive [address] [place] [address]- Attending Physician: Jac Smith MD Referring Physician: Lisseth Nassar NP Allergies, Adverse Reactions, Alerts Substance Reaction Severity Status sulfADIAZINE rash Active morphine rash & swelling Active sertraline 1 QT wave change Active sulfa drugs rash Active Bactrim rash Active NSAIDs 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 Active 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 Refills 11, Maintenance, 11/24/17 13:49:05 EDT, Aerosol, Route to Pharmacy Electronically, [id number], [facility] [address]28, Compound Start Date: 11/24/17 Status: Ordered albuterol-ipratropium 3 mg-0.5 mg/3 ml inhalation solution 1 vials, Inhalation, 4 times a day, # 180 mL, 5 Refills, Maintenance, 07/30/19 11:02:00 EDT, [facility] #[id number], 15, INHALE CONTENTS OF 1 VIAL VIA NEBULIZER FOUR TIMES DAILY, 167.64, cm, 04/24/19 16:16:00 EST, Height, 100.4, kg, 08/03/18 10:1... Start Date: 07/30/19 Status: Ordered amLODIPine 10 mg oral tablet 1 tablet, By Mouth, Daily, # 30 tablet, 5 Refills, Maintenance, 05/06/20 12:30:00 EST, [facility] #[id number], 167.64, cm, 03/25/20 14:59:00 EST, Height, 100.4, kg, 08/03/18 10:14:00 EDT, Dry Weight Start Date: 05/06/20 Status: Ordered aspirin 81 mg oral delayed release tablet 81 mg, 1, tablet, By Mouth, Daily, # 30 tablet, Refills 5, Tot. Refills 5, Maintenance, 11/02/19 11:39:00 EDT, Route to Pharmacy Electronically, [facility] #[id number], 167.64, cm, 11/02/19 10:58:00 EDT, Height, 100.4, kg, 08/03/18 10:14:00 EDT,... Start Date: 11/02/19 Status: Ordered bacitracin topical 500 u/gm ointment 1 application, Topically, 4 times a day, # 30 Gm, 0 Refills, Maintenance, 09/02/20 15:20:00 EDT, Ointment, [facility] #[id number], Partial fill upon patient request if the prescription is for a schedule II opioid drug., 1 application Topically 4... Start Date: 09/02/20 Stop Date: 09/12/20 Status: Ordered baclofen 10 mg oral tablet 1, tablet, By Mouth, 3 times a day, # 60 tablet, Refills 0, Tot. Refills 0, Maintenance, 02/25/20 13:59:00 EST, Route to Pharmacy Electronically, [facility] #[id number], 167.64, cm, 11/12/19 15:34:00 EDT, Height, 100.4, [...] tablet, 11 Refills, Maintenance, 01/11/20 10:43:00 EDT, [facility] #[id number], 167.64, cm, 11/12/19 15:34:00 EDT, Height, 100.4, [...] DAILY, # 44 mL, 0 Refills, Maintenance, [facility] #[id number], 29, SPRAY TWICE IN EACH NOSTRIL FOUR [...] each, 5 Refills, Maintenance, 06/05/18 19:53:47 EDT, [place], 1 sprays Nares, Both 2 times a [...] 11 Refills, Maintenance, 03/02/19 10:19:00 EST, Capsule, [facility] #[id number], 1 capsule By Mouth Daily, 167.64, cm, [...] 4 HOURS NEEDED FOR NAUSEA OR VOMITING, [facility] #15362 Start Date: 12/05/18 Status: Ordered raised toilet [...] Maintenance, 06/02/17 13:39:59, Route to Pharmacy Electronically, [id number], [facility] Start Date: 06/02/17 Status: Ordered tiZANidine 2 mg oral tablet 2 mg, 1, tablet, By Mouth, Every 8 hours, PRN, # 90 tablet, Refills 3, Tot. Refills 3, Maintenance,as needed for muscle spasm, 02/08/20 9:24:00 EST, Route to Pharmacy Electronically, [facility] #[id number], Partial fill upon patient request, 167... Start [...] cats, dogs, maple, oak; starting immunotherapy 07/2015 Vital Signs Most recent to oldest [Reference Range]: 1 Height 167.64 cm (09/03/20 2:59 PM) Weight 100 kg (09/03/20 2:59 PM) Body Mass Index [18.5-24.99] 35.58 *>HHI* (09/03/20 2:59 PM) Temperature [96.8-100.4 DegF] 98.6 DegF (09/03/20 2:59 PM) Social History Social History Type Response Smoking Status Never smoker entered on: 04/07/17 Sex Female
--- OUTSIDE RECORDS SUMMARY | 2023-09-12 11:25 | XMS_ITS | Continuity of Care Document ---
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 Start Date: 10/19/21 Status: Ordered albuterol-ipratropium 3 mg-0.5 mg/3 ml inhalation solution 1 vials, Inhalation, 4 times a day, # 180 mL, 5 Refills, Maintenance, 07/30/19 11:02:00 EDT, [facility] #21573, 15, INHALE CONTENTS OF 1 VIAL VIA [...] tablet, 11 Refills, Maintenance, 12/07/21 8:02:00 EDT, [facility] #95798, 165, cm, 10/27/21 1:44:00 EDT, Height, 90.9, kg, 10/27/21 1:44:00 EDT, Dry Weight Start Date: 12/07/21 Status: Ordered amlodipine-benazepril 5 mg-10 mg oral capsule 1 capsule, By Mouth, Daily, To replace prior prescription (amlodipine)., # 30 capsule, 11 Refills, Maintenance, 04/23/21 14:51:00 EST, Capsule, [facility] #50213, Partial fill upon patient request if the prescription is for a schedule II opi... Start Date: 04/23/21 Status: Ordered aspirin 81 mg oral delayed release tablet 81 mg, 1, tablet, By Mouth, Daily, # 30 tablet, Refills 5, Tot. Refills 5, Maintenance, 11/02/19 11:39:00 EDT, Route to Pharmacy Electronically, [facility] #01955, 167.64, cm, 11/02/19 10:58:00 EDT, Height, 100.4, [...] tablet, 11 Refills, Maintenance, 09/25/21 11:17:00 EDT, [facility] #[id number], 165, cm, 09/25/21 11:04:00 EDT, Height, 96, [...] each, 11 Refills, Maintenance, 09/25/21 11:17:00 EDT, [place], [facility] #[id number], 1 sprays Nares, Both 2 times a [...] Acute 03/13/22 13:51:00 EST, 12/14/2212:50:00 EDT, Ointment, [facility] #86368, Partial fill upon patient request if the [...] 11 Refills, Maintenance, 03/02/19 10:19:00 EST, Capsule, [facility] #70136, 1 capsule By Mouth Daily, 167.64, cm, [...] pain; may fill less; may fill on/after 01/29/2022; max 6/day, # 126 tablet, 0 Refills, Maintenance, 01/25/22 8:30:00 EST,... Start Date: 01/25/22 Status: Ordered Paxlovid 150 mg-100 mg oral tablet See Instructions, 300mg nirmatrelvir (two 150mg tablets) with 100mg ritonavir (one tablet). All 3 tablets taken together twice daily By Mouth for 5 days, with or without food, # 30 tablet, 0 Refills,Maintenance, 10/18/21 16:41:00 EDT, [facility] Start Date: 10/18/21 Status: Ordered Prevacid [...] 09/25/21 11:17:00 EDT, Route to Pharmacy Electronically, [facility] #[id number], 165, cm, 09/25/2210:04:00 EDT, Height, 96, kg, 07/13/21 10:52:00 EDT... Start Date: 09/25/21 Status: Ordered tiZANidine 2 mg oral tablet 2 mg, 1, tablet, By Mouth, Every 8 hours, PRN, # 90 tablet, Refills 3, Tot. Refills 3, Maintenance,as needed for muscle spasm, 06/18/21 10:33:00 EDT, Route to Pharmacy Electronically, [facility] #[id number], Partial fill upon patient request, 16... Start [...] Team Personnel Name: Lisseth Nassar NP Position: [facility] PCO Associate Professional Member Role: PCP Address: Address: [address] [place] [address]- Name: Lavern SPENCER, Edenilson Chen Position: [facility] POLE FRAMER MACHINE MD Member Role: Lifetime POLE FRAMER MACHINE Physician Address: Address: [address] [place] [address]- Name: Chidi Clark DO Position: [facility] Renal MD Member Role: Lifetime Consulting Physician Address: Address: [address] [place] [address] [address] [facility] [place] [address]- Name: Starr Harper RN Position: [facility] RN Member Role: Primary Care Nurse Care Team Related Persons Name: MARYA ADRIAN Address: [address] [place] [address]
--- OUTSIDE RECORDS SUMMARY | 2023-09-12 11:25 | XMS_ITS | Continuity of Care Document ---
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 Refills 11, Maintenance, 11/24/17 13:49:05 EDT, Aerosol, Route to Pharmacy Electronically, [id number], [facility] [address], Compound Start Date: 11/24/17 Status: Ordered albuterol-ipratropium 3 mg-0.5 mg/3 ml inhalation solution 1 vials, Inhalation, 4 times a day, # 180 mL, 5 Refills, Maintenance, 07/30/19 11:02:00 EDT, [facility] #[id number], 15, INHALE CONTENTS OF 1 VIAL VIA NEBULIZER FOUR TIMES DAILY, 167.64, cm, 04/24/19 16:16:00 EST, Height, 100.4, kg, 08/03/18 10:1... Start Date: 07/30/19 Status: Ordered amLODIPine 10 mg oral tablet 1 tablet, By Mouth, Daily, # 30 tablet, 6 Refills, Maintenance, 10/04/19 12:22:00 EDT, [facility] #[id number], 167.64, cm, 04/24/19 16:16:00 EST, Height, 100.4, kg, 08/03/18 10:14:00 EDT, Dry Weight Start Date: 10/04/19 Status: Ordered aspirin 81 mg oral delayed release tablet 81 mg, 1, tablet, By Mouth, Daily, # 30 tablet, Refills 5, Tot. Refills 5, Maintenance, 11/02/19 11:39:00 EDT, Route to Pharmacy Electronically, [facility] #[id number], 167.64, cm, 11/02/19 10:58:00 EDT, Height, 100.4, kg, 08/03/18 10:14:00 EDT,... Start Date: 11/02/19 Status: Ordered baclofen 10 mg oral tablet 1, tablet, By Mouth, 3 times a day, # 60 tablet, Refills 0, Tot. Refills 0, Maintenance, 02/25/20 13:59:00 EST, Route to Pharmacy Electronically, [facility] #[id number], 167.64, cm, 11/12/19 15:34:00 EDT, Height, 100.4, [...] tablet, 11 Refills, Maintenance, 01/11/20 10:43:00 EDT, [facility] #46998, 167.64, cm, 11/12/19 15:34:00 EDT, Height, 100.4, [...] DAILY, # 44 mL, 0 Refills, Maintenance, [facility] #05161, 29, SPRAY TWICE IN EACH NOSTRIL FOUR [...] each, 5 Refills, Maintenance, 06/05/18 19:53:47 EDT, [facility], 1 sprays Nares, Both 2 times a [...] 11 Refills, Maintenance, 03/02/19 10:19:00 EST, Capsule, [facility] #[id number], 1 capsule By Mouth Daily, 167.64, cm, [...] 4 HOURS NEEDED FOR NAUSEA OR VOMITING, [facility] #67575 Start Date: 12/05/18 Status: Ordered raised toilet [...] Maintenance, 06/02/17 13:39:59, Route to Pharmacy Electronically, [id number], [facility] [address] Start Date: 06/02/17 Status: Ordered tiZANidine 2 mg oral tablet 2 mg, 1, tablet, By Mouth, Every 8 hours, PRN, # 90 tablet, Refills 3, Tot. Refills 3, Maintenance,as needed for muscle spasm, 02/08/20 9:24:00 EST, Route to Pharmacy Electronically, [facility] #15751, Partial fill upon patient request, 167... Start [...]
--- OUTSIDE RECORDS SUMMARY | 2023-09-12 11:25 | XMS_ITS | Continuity of Care Document ---
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 Start Date: 05/12/22 Status: Ordered albuterol CFC free 90 mcg/inh inhalation aerosol 2, puffs, Inhalation, 4 times a day, PRN, Dispense brand as required by insurance, # 18 Gm, [id number], Tot. Refills 11, Maintenance, 05/12/22 11:38:00 EST, Aerosol, Route to Pharmacy Electronically, [id number], [email or web address]... Start Date: 05/12/22 Status: Ordered albuterol-ipratropium 3 mg-0.5 mg/3 ml inhalation solution 1 vials, Inhalation, 4 times a day, # 180 mL, 11 Refills, Maintenance, 05/12/22 11:38:00 EST, [facility] #01236, 15, 1 vials Inhalation 4 times a [...] 11 Refills, Maintenance, 03/01/22 16:04:00 EST, Capsule, [email or web address] #[id number], Partial fill upon patient request if the prescription is for a schedule II opi... Start Date: 03/01/22 Stop Date: 02/13/25 Status: Ordered apixaban 2.5 mg oral tablet 1 tablet = 2.5 mg, By Mouth, 2 times a day, # 60 tablet, 0 Refills, Maintenance, 05/28/22 8:20:00 EDT, Tablet, [facility] 3, Partial fill upon patient request if [...] tablet, 11 Refills, Maintenance, 09/25/21 11:17:00 EDT, [email or web address] #33059, 165, cm, 09/25/21 11:04:00 EDT, Height, 96, [...] each, 11 Refills, Maintenance, 09/25/21 11:17:00 EDT, [place], [email or web address] #03097, 1 sprays Nares, Both 2 times a day,x30 days, 165, cm, 09/25/21 11:04:00 EDT, Height, 96, kg, 07/13/21 10:52:00 EDT, Dry... Start Date: 09/25/21 Stop Date: 09/20/22 Status: Ordered Flovent HFA 220 mcg/inh inhalation aerosol 2 puffs, Inhalation, 2 times a day, # 12 Gm, 11 Refills, Maintenance, 05/19/22 13:39:00 EST, Aerosol, [email or web address] #71161, Partial fill upon patient request if the [...] 03/13/23 15:24:00 EST, 09/01/22 15:23:00 EDT, Ointment, [facility] #21327, Partial fill upon patient request if the [...] Date: 10/01/22 Stop Date: 10/31/22 Status: Ordered Prevacid 30 mg oral enteric [...] 05/12/22 11:38:00 EST, Route to Pharmacy Electronically, [facility]06[facility], 168, cm, 05/12/2310:30:00 EST, Height, 85, kg, [...] Care team information Care Team Personnel Name: Gilbert VASQUEZ, Tristin Wick Position: S RN Member Role: Primary Care Nurse Name: Lisseth Nassar NP Position: [facility] PCO Associate Professional Member Role: PCP Address: Address: [address] [place] [address]- [place] Name: Edenilson Puckett MD Position: [facility] PROTOHISTORIAN MD Member Role: Lifetime PROTOHISTORIAN Physician Address: Address: [address] [place], [place] [address] [address]- [place] Name: Jovana Park RN Position: [facility] RN Member Role: Primary Care Nurse Name: Chidi Clark DO Position: [facility] Renal MD Member Role: Lifetime Consulting Physician Address: Address: [address] [place] [address] [address] [facility] [place] [address]- [place] Name: Mireya Torres RN Position: [facility] RN Member Role: Primary Care Nurse Name: Kelly Maddox RN Position: [facility] RN Member Role: Primary Care Nurse Care Team Related Persons Name: KAYLAHMARYA SULTANA Address: home [address] [place] [address] Name: MORALES HOWELL Address: home [address] [place] [address]
--- OUTSIDE RECORDS SUMMARY | 2023-09-12 11:25 | XMS_ITS | Continuity of Care Document ---
Author Organization [facility] Address [address] [place] [address]- Care Team Providers Care Metrology Specialist Name Role Phone Cesario VALDEZ, Lisseth Hancock Primary Care Physician [place] [facility] [place]24[place]20 - 10/24/20 [facility] [address] [place] [address] Attending Physician: Janette Connelly Admitting Physician: Janette Connelly Referring Physician: Janette Connelly Allergies, Adverse Reactions, Alerts Substance Reaction Severity Status sulfADIAZINE rash Active morphine rash & swelling Active sertraline 1 QT wave change Active sulfa drugs rash Active NSAIDs 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 Refills 11, Maintenance, 11/24/17 13:49:05 EDT, Aerosol, Route to Pharmacy Electronically, [id number], [id number], Compound Start Date: 11/24/17 Status: Ordered albuterol-ipratropium 3 mg-0.5 mg/3 ml inhalation solution 1 vials, Inhalation, 4 times a day, # 180 mL, 5 Refills, Maintenance, 07/30/19 11:02:00 EDT, [facility] #80107, 15, INHALE CONTENTS OF 1 VIAL VIA NEBULIZER FOUR TIMES DAILY, 167.64, cm, 04/24/19 16:16:00 EST, Height, 100.4, kg, 08/03/18 10:1... Start Date: 07/30/19 Status: Ordered amLODIPine 10 mg oral tablet 1 tablet, By Mouth, Daily, # 30 tablet, 5 Refills, Maintenance, 05/06/20 12:30:00 EST, [facility] #06534, 167.64, cm, 03/25/20 14:59:00 EST, Height, 100.4, kg, 08/03/18 10:14:00 EDT, Dry Weight Start Date: 05/06/20 Status: Ordered aspirin 81 mg oral delayed release tablet 81 mg, 1, tablet, By Mouth, Daily, # 30 tablet, Refills 5, Tot. Refills 5, Maintenance, 11/02/19 11:39:00 EDT, Route to Pharmacy Electronically, [facility] #34208, 167.64, cm, 11/02/19 10:58:00 EDT, Height, 100.4, kg, 08/03/18 10:14:00 EDT,... Start Date: 11/02/19 Status: Ordered bacitracin topical 500 u/gm ointment 1 application, Topically, 4 times a day, # 30 Gm, 0 Refills, Maintenance, 09/02/20 15:20:00 EDT, Ointment, [facility] #24787, Partial fill upon patient request if the prescription is for a schedule II opioid drug., 1 application Topically 4... Start Date: 09/02/20 Stop Date: 09/12/20 Status: Ordered baclofen 10 mg oral tablet 1, tablet, By Mouth, 3 times a day, # 60 tablet, Refills 0, Tot. Refills 0, Maintenance, 02/25/20 13:59:00 EST, Route to Pharmacy Electronically, [facility] #33239, 167.64, cm, 11/12/19 15:34:00 EDT, Height, 100.4, [...] tablet, 11 Refills, Maintenance, 01/11/20 10:43:00 EDT, [facility] #01531, 167.64, cm, 11/12/19 15:34:00 EDT, Height, 100.4, [...] DAILY, # 44 mL, 0 Refills, Maintenance, [facility] #76212, 29, SPRAY TWICE IN EACH NOSTRIL FOUR [...] each, 5 Refills, Maintenance, 06/05/18 19:53:47 EDT, [place], 1 sprays Nares, Both 2 times a [...] 11 Refills, Maintenance, 03/02/19 10:19:00 EST, Capsule, [facility] #[id number], 1 capsule By Mouth Daily, 167.64, cm, [...] 4 HOURS NEEDED FOR NAUSEA OR VOMITING, [facility] #16536 Start Date: 12/05/18 Status: Ordered raised toilet [...] Maintenance, 06/02/17 13:39:59, Route to Pharmacy Electronically, [id number], [id number] Start Date: 06/02/17 Status: Ordered tiZANidine 2 mg oral tablet 2 mg, 1, tablet, By Mouth, Every 8 hours, PRN, # 90 tablet, Refills 3, Tot. Refills 3, Maintenance,as needed for muscle spasm, 02/08/20 9:24:00 EST, Route to Pharmacy Electronically, [facility] #51377, Partial fill upon patient request, 167... Start [...]
--- OUTSIDE RECORDS SUMMARY | 2023-09-12 11:25 | XMS_ITS | Continuity of Care Document ---
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 Start Date: 01/26/23 Status: Ordered albuterol CFC free 90 mcg/inh inhalation aerosol 2, puffs, Inhalation, 4 times a day, PRN, Dispense brand as required by insurance, # 1 each, Refills 11, Tot. Refills 11, Maintenance, 01/26/23 14:00:00 EST, Aerosol, Route to Pharmacy Electronically, [id number], [facility]. Start Date: 01/26/23 Status: Ordered albuterol-ipratropium 3 mg-0.5 mg/3 ml inhalation solution 1 vials, Inhalation, 4 times a day, # 180 mL, 11 Refills, Maintenance, 01/27/23 9:25:00 EST, [facility] #[id number], 15, 1 vials Inhalation 4 times a [...] tablet, 6 Refills, Maintenance, 12/07/22 16:46:00 EDT, [facility] #94447, 165, cm, 12/06/22 17:39:00 EDT, Height, 88.2, kg, 05/26/22 7:52:00EDT, Dry Weight Start Date: 12/07/22 Status: Ordered amlodipine-benazepril 5 mg-10 mg oral capsule 1 capsule, By Mouth, Daily, To replace prior prescription (amlodipine)., # 90 capsule, 11 Refills, Maintenance, 03/01/22 16:04:00 EST, Capsule, [facility] #[id number], Partial fill upon patient request if the [...] tablet, 3 Refills, Maintenance, 01/26/23 14:00:00 EST, [facility] #87198, 165, cm, 01/26/23 13:31:00 EST, Height, 88.2, [...] each, 11 Refills, Maintenance, 09/25/21 11:17:00 EDT, [place], [facility] #81035, 1 sprays Nares, Both 2 times a day,x30 days, 165, cm, 09/25/21 11:04:00 EDT, Height, 96, kg, 07/13/21 10:52:00 EDT, Dry... Start Date: 09/25/21 Stop Date: 09/20/22 Status: Ordered fluconazole 150 mg oral tablet 1 tablet = 150 mg, By Mouth, Once, Repeat dose if still having symptoms in 72 hours, # 2 tablet, 1 Refills, Soft Stop, 01/26/23 14:19:00 EST, Tablet, [facility] #86955, Partial fill upon patient request if the [...] 11 Refills, Maintenance, 01/26/23 14:04:00 EST, Aerosol, [facility] #92099, Partial fill upon patient request if the prescription is for a s... Start Date: 01/26/23 Status: Ordered mupirocin 2% topical ointment 1 application, Topically, 3 times a day, # 30 Gm, 2 Refills, Acute 03/13/23 15:24:00 EST, 09/01/22 15:23:00 EDT, Ointment, [facility] #55818, Partial fill upon patient request if the [...] pain; may fill less; May fill on/after 01/26/2023 to replace previous RX, # 180 tablet, 0 Refills, Maintenance, 01/31/23... Start Date: 01/31/23 Stop Date: 03/02/23 Status: Ordered Prevacid 30 mg oral enteric coated capsule 1 capsule = 30 mg, By Mouth, Daily, # 90 capsule, 4 Refills, Maintenance, 01/26/23 14:02:00 EST, [facility] #60767, 165, cm, 01/26/23 13:31:00 EST, Height, 88.2, [...] 01/26/23 14:02:00 EST, Route to Pharmacy Electronically, [facility] #[id number], 165, cm, 01/26/23 13:31:00 EST, Height, 88.2, [...] Team Personnel Name: Tristin Hunt RN Position: [facility] RN Member Role: Primary Care Nurse Name: Lisseth Nassar NP Position: [facility] PCO Associate Professional Member Role: PCP Address: Address: [address] [place] [address]- Name: Edenilson Puckett MD Position: [facility] PRODUCE ASSISTANT MD Member Role: Lifetime PRODUCE ASSISTANT Physician Address: Address: [address] [place] [address]- Name: Jovana Park RN Position: [facility] RN Member Role: Primary Care Nurse Name: Chidi Clark DO Position: [facility] Renal MD Member Role: Lifetime Consulting Physician Address: Address: [address] [place] [address] [address] [facility] [place] [address]- Name: Mireya Torres RN Position: S RN Member Role: Primary Care Nurse Name: Starr Harper RN Position: [facility] SN RN Member Role: Primary Care Nurse Name: Kelly Maddox RN Position: S RN Member Role: Primary Care Nurse Care Team Related Persons Name: KAYLAH MARYA Address: home [address] [place] [address] Name: LYNDA MORALES Address: home [address] [place] [address]
--- OUTSIDE RECORDS SUMMARY | 2023-09-12 11:25 | XMS_ITS | Continuity of Care Document ---
Author Organization [facility] Address [address] [place] [address]- Care Team Providers Care Masking Machine Feeder Name Role Phone Cesario VALDEZ, Lisseth Hancock Primary Care Physician [phone] 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 Start Date: 05/12/22 Status: Ordered albuterol CFC free 90 mcg/inh inhalation aerosol 2, puffs, Inhalation, 4 times a day, PRN, Dispense brand as required by insurance, # 18 Gm, [id number], Tot. Refills 11, Maintenance, 05/12/22 11:38:00 EST, Aerosol, Route to Pharmacy Electronically, [id number], [facility] Start Date: 05/12/22 Status: Ordered albuterol-ipratropium 3 mg-0.5 mg/3 ml inhalation solution 1 vials, Inhalation, 4 times a day, # 180 mL, 11 Refills, Maintenance, 05/12/22 11:38:00 EST, [facility] #01105, 15, 1 vials Inhalation 4 times a [...] 11 Refills, Maintenance, 03/01/22 16:04:00 EST, Capsule, [facility] #57543, Partial fill upon patient request if the prescription is for a schedule II opi... Start Date: 03/01/22 Stop Date: 02/13/25 Status: Ordered apixaban 2.5 mg oral tablet 1 tablet = 2.5 mg, By Mouth, 2 times a day, # 60 tablet, 0 Refills, Maintenance, 05/28/22 8:20:00 EDT, Tablet, [facility] 3, Partial fill upon patient request [...] tablet, 11 Refills, Maintenance, 09/25/21 11:17:00 EDT, [facility] #49853, 165, cm, 09/25/21 11:04:00 EDT, Height, 96, [...] each, 11 Refills, Maintenance, 09/25/21 11:17:00 EDT, [place], [facility] #07215, 1 sprays Nares, Both 2 times a day,x30 days, 165, cm, 09/25/21 11:04:00 EDT, Height, 96, kg, 07/13/21 10:52:00 EDT, Dry... Start Date: 09/25/21 Stop Date: 09/20/22 Status: Ordered Flovent HFA 220 mcg/inh inhalation aerosol 2 puffs, Inhalation, 2 times a day, # 12 Gm, 11 Refills, Maintenance, 05/19/22 13:39:00 EST, Aerosol, [facility] #37181, Partial fill upon patient request if the [...] 05/12/22 11:38:00 EST, Route to Pharmacy Electronically, [facility] #[id number], 168, cm, 05/12/2310:30:00 EST, Height, 85, kg, [...] Team Personnel Name: Tristin Hunt RN Position: [facility] RN Member Role: Primary Care Nurse Name: Lisseth Nassar NP Position: [facility] PCO Associate Professional Member Role: PCP Address: Address: [address] [place] [address]- Name: Lavern SPENCER, Edenilson Chen Position: [facility] TRUSS BUILDER MD Member Role: Lifetime TRUSS BUILDER Physician Address: Address: [address] [place], [place] [address] [place] [address]- Name: Jovana Park RN Position: S RN Member Role: Primary Care Nurse Name: Chidi Clark DO Position: [facility] Renal MD Member Role: Lifetime Consulting Physician Address: Address: [address] [place] [address] [address] [facility] [place] [address]- Name: Mireya Torres RN Position: S RN Member Role: Primary Care Nurse Name: Kelly Maddox RN Position: S RN Member Role: Primary Care Nurse Care Team Related Persons Name: KAYLAH MARYA Address: home [address] [place] [address] Name: MORALES HOWELL Address: home [address] [place] [address]
--- OUTSIDE RECORDS SUMMARY | 2023-09-12 11:25 | XMS_ITS | Continuity of Care Document ---
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 Start Date: 05/12/22 Status: Ordered albuterol CFC free 90 mcg/inh inhalation aerosol 2, puffs, Inhalation, 4 times a day, PRN, Dispense brand as required by insurance, # 18 Gm, [id number], Tot. Refills 11, Maintenance, 05/12/22 11:38:00 EST, Aerosol, Route to Pharmacy Electronically, [id number], [facility]... Start Date: 05/12/22 Status: Ordered albuterol-ipratropium 3 mg-0.5 mg/3 ml inhalation solution 1 vials, Inhalation, 4 times a day, # 180 mL, 11 Refills, Maintenance, 05/12/22 11:38:00 EST, [facility] #93631, 15, 1 vials Inhalation 4 times a [...] 11 Refills, Maintenance, 03/01/22 16:04:00 EST, Capsule, [facility] #31875, Partial fill upon patient request if the prescription is for a schedule II opi... Start Date: 03/01/22 Stop Date: 02/13/25 Status: Ordered apixaban 2.5 mg oral tablet 1 tablet = 2.5 mg, By Mouth, 2 times a day, # 60 tablet, 0 Refills, Maintenance, 05/28/22 8:20:00 EDT, Tablet, [facility] 3, Partial fill upon patient [...] tablet, 11 Refills, Maintenance, 09/25/21 11:17:00 EDT, [facility] #60423, 165, cm, 09/25/21 11:04:00 EDT, Height, 96, [...] each, 11 Refills, Maintenance, 09/25/21 11:17:00 EDT, [place], [facility] #79012, 1 sprays Nares, Both 2 times a day,x30 days, 165, cm, 09/25/21 11:04:00 EDT, Height, 96, kg, 07/13/21 10:52:00 EDT, Dry... Start Date: 09/25/21 Stop Date: 09/20/22 Status: Ordered Flovent HFA 220 mcg/inh inhalation aerosol 2 puffs, Inhalation, 2 times a day, # 12 Gm, 11 Refills, Maintenance, 05/19/22 13:39:00 EST, Aerosol, [facility] #30333, Partial fill upon patient request if the [...] 03/13/23 15:24:00 EST, 09/01/22 15:23:00 EDT, [facility]intment, [facility]4727, Partial fill upon patient request if the [...] pain; may fill less; May fill on/after 08/11/2022, # 180 tablet, 0 Refills, Maintenance, 08/06/22 12:45:00 EDT, Tablet, [facility]... Start Date: 08/06/22 Stop Date: 09/05/22 Status: Ordered Prevacid 30 mg oral enteric [...] 05/12/22 11:38:00 EST, Route to Pharmacy Electronically, [facility] #[id number], 168, cm, 05/12/2310:30:00 EST, Height, 85, kg, [...] Name: Lisseth Nassar NP Position: [facility] PCO Associate Professional Member Role: PCP Address: Address: [address] [place] [address]- [place] Name: Edenilson Puckett MD Position: [facility] RESIDENTIAL SUPPORT WORKER MD Member Role: Lifetime RESIDENTIAL SUPPORT WORKER Physician Address: Address: [address] [place] [address]- Name: Jovana Park RN Position: S RN Member Role: Primary Care Nurse Name: Chidi Clark DO Position: [facility] Renal MD Member Role: Lifetime Consulting Physician Address: Address: [address] [place], [place] [address] [place] [address]- Name: Mireya Torres RN Position: S RN Member Role: Primary Care Nurse Name: Kelly Maddox RN Position: S RN Member Role: Primary Care Nurse Care Team Related Persons Name: MARYA ADRIAN Address: home [address] [place] [address] Name: MORALES HOWELL Address: [address] [place] [address]
--- OUTSIDE RECORDS SUMMARY | 2023-09-12 11:26 | XMS_ITS | Continuity of Care Document ---
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 Start Date: 01/26/23 Status: Ordered albuterol CFC free 90 mcg/inh inhalation aerosol 2, puffs, Inhalation, 4 times a day, PRN, Dispense brand as required by insurance, # 1 each, Refills 11, Tot. Refills 11, Maintenance, 01/26/23 14:00:00 EST, Aerosol, Route to Pharmacy Electronically, [id number], [facility]. Start Date: 01/26/23 Status: Ordered albuterol-ipratropium 3 mg-0.5 mg/3 ml inhalation solution 1 vials, Inhalation, 4 times a day, # 180 mL, 11 Refills, Maintenance, 01/27/23 9:25:00 EST, [facility] #[id number], 15, 1 vials Inhalation 4 times a [...] tablet, 6 Refills, Maintenance, 12/07/22 16:46:00 EDT, [facility] #[id number], 165, cm, 12/06/22 17:39:00 EDT, Height, 88.2, kg, 05/26/22 7:52:00EDT, Dry Weight Start Date: 12/07/22 Status: Ordered amlodipine-benazepril 5 mg-10 mg oral capsule 1 capsule, By Mouth, Daily, To replace prior prescription (amlodipine)., # 90 capsule, 11 Refills, Maintenance, 03/01/22 16:04:00 EST, Capsule, [facility] #[id number], Partial fill upon patient request if the [...] tablet, 3 Refills, Maintenance, 01/26/23 14:00:00 EST, [facility] #[id number], 165, cm, 01/26/23 13:31:00 EST, Height, 88.2, [...] each, 11 Refills, Maintenance, 09/25/21 11:17:00 EDT, [place], [facility] #62124, 1 sprays Nares, Both 2 times a day,x30 days, 165, cm, 09/25/21 11:04:00 EDT, Height, 96, kg, 07/13/21 10:52:00 EDT, Dry... Start Date: 09/25/21 Stop Date: 09/20/22 Status: Ordered fluconazole 150 mg oral tablet 1 tablet = 150 mg, By Mouth, Once, Repeat dose if still having symptoms in 72 hours, # 2 tablet, 1 Refills, Soft Stop, 01/26/23 14:19:00 EST, Tablet, [facility] #[id number], Partial fill upon patient request if the [...] 11 Refills, Maintenance, 01/26/23 14:04:00 EST, Aerosol, [facility] #17459, Partial fill upon patient request if the prescription is for a s... Start Date: 01/26/23 Status: Ordered mupirocin 2% topical ointment 1 application, Topically, 3 times a day, # 30 Gm, 2 Refills, Acute 03/13/23 15:24:00 EST, 09/01/22 15:23:00 EDT, Ointment, [facility] #[id number], Partial fill upon patient request if the [...] capsule, 4 Refills, Maintenance, 01/26/23 14:02:00 EST, [facility] #65171, 165, cm, 01/26/23 13:31:00 EST, Height, 88.2, [...] 01/26/23 14:02:00 EST, Route to Pharmacy Electronically, [facility] #[id number], 165, cm, 01/26/23 13:31:00 EST, Height, 88.2, [...] Team Personnel Name: Tristin Hunt RN Position: [facility] RN Member Role: Primary Care Nurse Name: Lisseth Nassar NP Position: [facility] PCO Associate Professional Member Role: PCP Address: Address: [address] [place] [address]- Name: Edenilson Puckett MD Position: [facility] ONLINE USER EXPERIENCE STRATEGIST MD Member Role: Lifetime ONLINE USER EXPERIENCE STRATEGIST Physician Address: Address: [address] [place] [address]- Name: Jovana Park RN Position: [facility] SN RN Member Role: Primary Care Nurse Name: Chidi Clark DO Position: [facility] Renal MD Member Role: Lifetime Consulting Physician Address: Address: [address] [place] [address] [address] [facility] [place] [address]- Name: Mireya Torres RN Position: S RN Member Role: Primary Care Nurse Name: Starr Harper RN Position: [facility] SN RN Member Role: Primary Care Nurse Name: Kelly Maddox RN Position: S RN Member Role: Primary Care Nurse Care Team Related Persons Name: MARYA ADRIAN Address: home [address] [place] [address] Name: MORALES HOWELL Address: home [address] [place] [address]
--- OUTSIDE RECORDS SUMMARY | 2023-09-12 11:26 | XMS_ITS | Continuity of Care Document ---
Author Organization [facility] Address [address] [place] [address]- Care Team Providers Care Barrel Liner Name Role Phone Cesario VALDEZ, Lisseth Hancock Primary Care Physician [phone] Encounter [facility] Date(s): 05/14/21 - 06/13/21 [facility] [address] [place] [address]- Attending Physician: Janette Connelly Admitting Physician: Janette Connelly Referring Physician: AdmtrJanette Allergies, Adverse Reactions, Alerts Substance Reaction Severity Status sulfADIAZINE rash Active morphine rash & swelling Active sertraline 1 QT wave change Active sulfa drugs rash Active NSAIDs 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 Refills 11, Maintenance, 11/24/17 13:49:05 EDT, Aerosol, Route to Pharmacy Electronically, [id number], [facility] [id number], Compound Start Date: 11/24/17 Status: Ordered albuterol-ipratropium 3 mg-0.5 mg/3 ml inhalation solution 1 vials, Inhalation, 4 times a day, # 180 mL, 5 Refills, Maintenance, 07/30/19 11:02:00 EDT, [facility] #53533, 15, INHALE CONTENTS OF 1 VIAL VIA NEBULIZER FOUR TIMES DAILY, 167.64, cm, 04/24/19 16:16:00 EST, Height, 100.4, kg, 08/03/18 10:1... Start Date: 07/30/19 Status: Ordered amlodipine-benazepril 5 mg-10 mg oral capsule 1 capsule, By Mouth, Daily, To replace prior prescription (amlodipine)., # 30 capsule, 11 Refills, Maintenance, 04/23/21 14:51:00 EST, Capsule, [facility] #39850, Partial fill upon patient request if the prescription is for a schedule II opi... Start Date: 04/23/21 Status: Ordered aspirin 81 mg oral delayed release tablet 81 mg, 1, tablet, By Mouth, Daily, # 30 tablet, Refills 5, Tot. Refills 5, Maintenance, 11/02/19 11:39:00 EDT, Route to Pharmacy Electronically, [facility] #[id number], 167.64, cm, 11/02/19 10:58:00 EDT, Height, 100.4, kg, 08/03/18 10:14:00 EDT,... Start Date: 11/02/19 Status: Ordered bacitracin topical 500 u/gm ointment 1 application, Topically, 4 times a day, # 30 Gm, 0 Refills, Maintenance, 09/02/20 15:20:00 EDT, Ointment, [facility] #39038, Partial fill upon patient request if the prescription is for a schedule II opioid drug., 1 application Topically 4... Start Date: 09/02/20 Stop Date: 09/12/20 Status: Ordered baclofen 10 mg oral tablet 1, tablet, By Mouth, 3 times a day, # 60 tablet, Refills 0, Tot. Refills 0, Maintenance, 02/25/20 13:59:00 EST, Route to Pharmacy Electronically, [facility] #[id number], 167.64, cm, 11/12/19 15:34:00 EDT, Height, 100.4, [...] tablet, 11 Refills, Maintenance, 01/11/20 10:43:00 EDT, [facility] #61199, 167.64, cm, 11/12/19 15:34:00 EDT, Height, 100.4, [...] DAILY, # 44 mL, 0 Refills, Maintenance, [facility], 29, SPRAY TWICE IN EACH NOSTRIL FOUR [...] 07/18/20 12:54:00 EDT, Route to Pharmacy Electronically, [facility]... Start Date: 07/18/20 Stop Date: 07/13/21 Status: Ordered Flonase 50 mcg/inh nasal spray 1 sprays, Nares, Both, 2 times a day, # 1 each, 5 Refills, Maintenance, 06/05/18 19:53:47 EDT, [place], 1 sprays Nares, Both 2 times a [...] Acute 03/13/22 14:45:00 EST, 03/20/2213:45:00 EST, Ointment, [facility] #[id number], Partial fill upon patient request if the [...] 11 Refills, Maintenance, 03/02/19 10:19:00 EST, Capsule, [facility] #62990, 1 capsule By Mouth Daily, 167.64, cm, [...] 4 HOURS NEEDED FOR NAUSEA OR VOMITING, [facility] #[id number] Start Date: 12/05/18 Status: Ordered raised toilet [...] Maintenance, 06/02/17 13:39:59, Route to Pharmacy Electronically, [id number], [facility] [address] Start Date: 06/02/17 Status: Ordered tiZANidine 2 mg oral tablet 2 mg, 1, tablet, By Mouth, Every 8 hours, PRN, # 90 tablet, Refills 3, Tot. Refills 3, Maintenance,as needed for muscle spasm, 01/30/21 8:11:00 EST, Route to Pharmacy Electronically, [facility] #38598, Partial fill upon patient request, 167... Start [...] opioid drug. Start Date: 05/14/21 Status: Ordered Ventolin HFA 108 mcg/inh inhalation [...]
--- OUTSIDE RECORDS SUMMARY | 2023-09-12 11:26 | XMS_ITS | Continuity of Care Document ---
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 Start Date: 05/12/22 Status: Ordered albuterol CFC free 90 mcg/inh inhalation aerosol 2, puffs, Inhalation, 4 times a day, PRN, Dispense brand as required by insurance, # 18 Gm, [id number], Tot. Refills 11, Maintenance, 05/12/22 11:38:00 EST, Aerosol, Route to Pharmacy Electronically, [id number], [facility]... Start Date: 05/12/22 Status: Ordered albuterol-ipratropium 3 mg-0.5 mg/3 ml inhalation solution 1 vials, Inhalation, 4 times a day, # 180 mL, 11 Refills, Maintenance, 05/12/22 11:38:00 EST, [facility] #23302, 15, 1 vials Inhalation 4 times a [...] tablet, 6 Refills, Maintenance, 12/07/22 16:46:00 EDT, [facility] #51740, 165, cm, 12/06/22 17:39:00 EDT, Height, 88.2, kg, 05/26/22 7:52:00EDT, Dry Weight Start Date: 12/07/22 Status: Ordered amlodipine-benazepril 5 mg-10 mg oral capsule 1 capsule, By Mouth, Daily, To replace prior prescription (amlodipine)., # 90 capsule, 11 Refills, Maintenance, 03/01/22 16:04:00 EST, Capsule, [facility] #38897, Partial fill upon patient request if the prescription is for a schedule II opi... Start Date: 03/01/22 Stop Date: 02/13/25 Status: Ordered apixaban 2.5 mg oral tablet 1 tablet = 2.5 mg, By Mouth, 2 times a day, # 60 tablet, 0 Refills, Maintenance, 05/28/22 8:20:00 EDT, Tablet, [facility] 3, [...] tablet, 11 Refills, Maintenance, 09/25/21 11:17:00 EDT, [facility] #29655, 165, cm, 09/25/21 11:04:00 EDT, Height, 96, [...] each, 11 Refills, Maintenance, 09/25/21 11:17:00 EDT, [place], [facility] #[id number], 1 sprays Nares, Both 2 times a day,x30 days, 165, cm, 09/25/21 11:04:00 EDT, Height, 96, kg, 07/13/21 10:52:00 EDT, Dry... Start Date: 09/25/21 Stop Date: 09/20/22 Status: Ordered Flovent HFA 220 mcg/inh inhalation aerosol 2 puffs, Inhalation, 2 times a day, # 12 Gm, 11 Refills, Maintenance, 05/19/22 13:39:00 EST, Aerosol, [facility] #10815, Partial fill upon patient request if the [...] 03/13/23 15:24:00 EST, 09/01/22 15:23:00 EDT, Ointment, [facility] #40977, Partial fill upon patient request if the [...] 05/12/22 11:38:00 EST, Route to Pharmacy Electronically, [facility] #34930, 168, cm, 05/12/2310:30:00 EST, Height, 85, kg, [...] Care Nurse Name: Lisseth Nassar NP Position: [facility] PCO Associate Professional Member Role: PCP Address: Address: [address] [place] [address]- Name: Edenilson Puckett MD Position: [facility] BETTING CLERKS MD Member Role: Lifetime BETTING CLERKS Physician Address: Address: [address] [place] [address]- Name: Jovana Park RN Position: S RN Member Role: Primary Care Nurse Name: Chidi Clark DO Position: [facility] Renal MD Member Role: Lifetime Consulting Physician Address: Address: [address] [place], [place] [address] [place] [address]- Name: Mireya Torres RN Position: S RN Member Role: Primary Care Nurse Name: Starr Harper RN Position: [facility] SN RN Member Role: Primary Care Nurse Name: Kelly Maddox RN Position: S RN Member Role: Primary Care Nurse Care Team Related Persons Name: KAYLAHMARYA SULTANA Address: home [address] [place] [address] Name: MORALES HOWELL Address: home [address] [place] [address]
--- OUTSIDE RECORDS SUMMARY | 2023-09-12 11:26 | XMS_ITS | Continuity of Care Document ---
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 Active 1 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 Start Date: 01/26/23 Status: Ordered albuterol CFC free 90 mcg/inh inhalation aerosol 2, puffs, Inhalation, 4 times a day, PRN, Dispense brand as required by insurance, # 1 each, Refills 11, Tot. Refills 11, Maintenance, 01/26/23 14:00:00 EST, Aerosol, Route to Pharmacy Electronically, [id number], [facility]. Start Date: 01/26/23 Status: Ordered albuterol-ipratropium 3 mg-0.5 mg/3 ml inhalation solution 1 vials, Inhalation, 4 times a day, # 180 mL, 11 Refills, Maintenance, 01/27/23 9:25:00 EST, [facility] #80132, 15, 1 vials Inhalation 4 times a [...] tablet, 6 Refills, Maintenance, 05/30/23 14:38:00 EDT, [facility] #37581, 165, cm, 05/30/23 14:22:00 EDT, Height, 88.2, kg, 05/26/22 7:52:00EDT, Dry Weight Start Date: 05/30/23 Stop Date: 02/18/25 Status: Ordered amlodipine-benazepril 5 mg-10 mg oral capsule 1 capsule, By Mouth, Daily, TO. REPLACE BEFORE PRESCRIPTION AMLODIPINE, # 90 capsule, 3 Refills, Maintenance, 05/30/23 14:38:00 EDT, [facility] #16521, 90, 1 capsule By Mouth Daily,Instr:TO. REPLACE [...] tablet, 3 Refills, Maintenance, 01/26/23 14:00:00 EST, [facility] #90170, 165, cm, 01/26/23 13:31:00 EST, Height, 88.2, kg, 05/26/22 7:52:00 EDT, Dry Weight Start Date: 01/26/23 Stop Date: 01/21/24 Status: Ordered clonazePAM 2 mg oral tablet 0.5 tablet = 1 mg, By Mouth, 3 times a day, please note dosage strength, # 45 tablet, 1 Refills, Maintenance, 07/04/23 11:11:00 EDT, Tablet, [facility] #22103, Partial fill upon patient request if the [...] each, 11 Refills, Maintenance, 09/25/21 11:17:00 EDT, [place], [facility] #09230, 1 sprays Nares, Both 2 times a day,x30 days, 165, cm, 09/25/21 11:04:00 EDT, Height, 96, kg, 07/13/21 10:52:00 EDT, Dry... Start Date: 09/25/21 Stop Date: 09/20/22 Status: Ordered fluconazole 150 mg oral tablet 1 tablet = 150 mg, By Mouth, Once, Repeat dose if still having symptoms in 72 hours, # 2 tablet, 1 Refills, Soft Stop, 04/27/23 14:34:00 EST, [facility]64021, Partial fill upon patient request if the prescription is for a schedule... Start Date: 04/27/23 Status: Ordered fluticasone 250 mcg/inh inhalation powder 1 puffs, Inhalation, 2 times a day, dispense brand as required by insurance, # 120 each, 11 Refills, Maintenance, 04/29/23 9:44:00 EST, Powder, [facility] #18642, Partial fill upon patient request if the [...] capsule, 4 Refills, Maintenance, 01/26/23 14:02:00 EST, [facility] #19492, 165, cm, 01/26/23 13:31:00 EST, Height, 88.2, [...] 01/26/23 14:02:00 EST, Route to Pharmacy Electronically, [facility] #02074, 165, cm, 01/26/23 13:31:00 EST, Height, 88.2, [...] Associate Professional Member Role: PCP Address: Address: [address] [place] [address]- Name: Edenilson Pukcett MD Position: [facility] SKI MAKER WOOD MD Member Role: Lifetime SKI MAKER WOOD Physician Address: Address: [address] [place] [address]- Name: Jovana Park RN Position: [facility] SN RN Member Role: Primary Care Nurse Name: Chidi Clark DO Position: [facility] Renal MD Member Role: Lifetime Consulting Physician Address: Address: [address] [place], [place] [address]E [facility] [place] [address]- Name: Mireya Torres RN Position: [facility] RN Member Role: Primary Care Nurse Name: Starr Harper RN Position: [facility] AMB Nurse Member Role: Primary Care Nurse Name: Kelly Maddox RN Position: [facility] RN Member Role: Primary Care Nurse Care Team Related Persons Name: MARYA ADRIAN Address: home [address] [place] [address] Name: MORALES HOWELL Address: home [address] [place] [address]
--- OUTSIDE RECORDS SUMMARY | 2023-09-12 11:26 | XMS_ITS | Continuity of Care Document ---
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 Start Date: 10/19/21 Status: Ordered albuterol-ipratropium 3 mg-0.5 mg/3 ml inhalation solution 1 vials, Inhalation, 4 times a day, # 180 mL, 5 Refills, Maintenance, 07/30/19 11:02:00 EDT, [facility] #90402, 15, INHALE CONTENTS OF 1 VIAL VIA [...] tablet, 11 Refills, Maintenance, 12/07/21 8:02:00 EDT, [facility] #36835, 165, cm, 10/27/21 1:44:00 EDT, Height, 90.9, kg, 10/27/21 1:44:00 EDT, Dry Weight Start Date: 12/07/21 Status: Ordered amlodipine-benazepril 5 mg-10 mg oral capsule 1 capsule, By Mouth, Daily, To replace prior prescription (amlodipine)., # 90 capsule, 11 Refills, Maintenance, 03/01/22 16:04:00 EST, Capsule, [facility] #33961, Partial fill upon patient request if the prescription is for a schedule II opi... Start Date: 03/01/22 Stop Date: 02/13/25 Status: Ordered aspirin 81 mg oral delayed release tablet 81 mg, 1, tablet, By Mouth, Daily, # 30 tablet, Refills 5, Tot. Refills 5, Maintenance, 11/02/19 11:39:00 EDT, Route to Pharmacy Electronically, [facility] #03701, 167.64, cm, 11/02/19 10:58:00 EDT, Height, 100.4, kg, 08/03/18 10:14:00 EDT,... Start Date: 11/02/19 Status: Ordered baclofen 10 mg oral tablet 10 mg, 1, tablet, By Mouth, Daily at bedtime, # 30 tablet, Refills 5, Tot. Refills 5, Maintenance, 02/09/22 13:45:00 EST, Route to Pharmacy Electronically, [facility] #16012, Partial fill upon patient request if the [...] tablet, 11 Refills, Maintenance, 09/25/21 11:17:00 EDT, [facility] #23930, 165, cm, 09/25/21 11:04:00 EDT, Height, 96, [...] each, 11 Refills, Maintenance, 09/25/21 11:17:00 EDT, [place], [facility] #51006, 1 sprays Nares, Both 2 times a day,x30 days, 165, cm, 09/25/21 11:04:00 EDT, Height, 96, kg, 07/13/21 10:52:00 EDT, Dry... Start Date: 09/25/21 Stop Date: 09/20/22 Status: Ordered fluconazole 150 mg oral tablet 1 tablet = 150 mg, By Mouth, Once, Repeat dose if still having symptoms in 72 hours, # 2 tablet, 0 Refills, Soft Stop, 02/09/22 13:43:00 EST, Tablet, [facility] #47752, Partial fill upon patient request if the [...] 11 Refills, Maintenance, 03/02/19 10:19:00 EST, Capsule, [facility] #23937, 1 capsule By Mouth Daily, 167.64, cm, [...] 0 Refills, Maintenance, 03/10/22 10:18:00 EST, Tablet, [facility] #07655, Pa... Start Date: 03/10/22 Stop Date: 03/31/22 Status: Ordered Paxlovid 150 mg-100 mg oral tablet See Instructions, 300mg nirmatrelvir (two 150mg tablets) with 100mg ritonavir (one tablet). All 3 tablets taken together twice daily By Mouth for 5 days, with or without food, # 30 tablet, 0 Refills,Maintenance, 10/18/21 16:41:00 EDT, [facility] Start Date: 10/18/21 Status: Ordered Prevacid [...] 09/25/21 11:17:00 EDT, Route to Pharmacy Electronically, [facility] #01205, 165, cm, 09/25/2210:04:00 EDT, Height, 96, kg, 07/13/21 10:52:00 EDT... Start Date: 09/25/21 Status: Ordered tiZANidine 2 mg oral tablet 2 mg, 1, tablet, By Mouth, Every 8 hours, PRN, # 90 tablet, Refills 3, Tot. Refills 3, Maintenance,as needed for muscle spasm, 06/18/21 10:33:00 EDT, Route to Pharmacy Electronically, [facility] #[id number], Partial fill upon patient request, 16... Start [...] Team Personnel Name: Lisseth Nassar NP Position: [facility] PCO Associate Professional Member Role: PCP Address: Address: [address] [place] [id number]- [place] Name: Lavern SPENCER, Edenilson Chen Position: [facility] COMPLAINT INSPECTOR MD Member Role: Lifetime COMPLAINT INSPECTOR Physician Address: Address: [address] [place] [address]- Name: Chidi lCark DO Position: [facility] Renal MD Member Role: Lifetime Consulting Physician Address: Address: [address] [place] [address] [address] [facility] [place] [address]- [place] Name: Meredith VASQUEZ, Starr Position: [facility] RN Member Role: Primary Care Nurse Care Team Related Persons Name: MARYA ADRIAN Address: home [address] [place] [address]
--- OUTSIDE RECORDS SUMMARY | 2023-09-12 11:26 | XMS_ITS | Continuity of Care Document ---
Author Organization [facility] ter Address [address] [place] [address]- Care Team Providers Care Meteorological Observer Name Role Phone Cesario VALDEZ, Lisseth Hancock Primary Care Physician Encounter [facility] Date(s): 10/26/21 - 10/27/[address] [address]- Discharge Disposition: A-D/C Walkout Attending Physician: Not on Staff, Attending MD Admitting Physician: Not on Staff, Admitting MD Referring Physician: Not on Staff, Referring MD Allergies, Adverse Reactions, Alerts Substance Reaction Severity Status sulfADIAZINE rash Active sertraline 1 QT wave change Active sulfa drugs rash Active NSAIDs 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 Start Date: 10/19/21 Status: Ordered albuterol-ipratropium 3 mg-0.5 mg/3 ml inhalation solution 1 vials, Inhalation, 4 times a day, # 180 mL, 5 Refills, Maintenance, 07/30/19 11:02:00 EDT, [facility] #[id number], 15, INHALE CONTENTS OF 1 VIAL VIA [...] tablet 5 mg, 1, tablet, By Mouth, Daily, # 30 tablet, Refills 0, Tot. Refills 0, Maintenance, 10/12/21 16:19:00 EDT, Route to Pharmacy Electronically, [facility] #[id number], 165, cm, 09/25/21 11:04:00EDT, Height, 96, kg, 07/13/21 10:52:00 EDT, Dry Weight Start Date: 10/12/21 Status: Ordered amlodipine-benazepril 5 mg-10 mg oral capsule 1 capsule, By Mouth, Daily, To replace prior prescription (amlodipine)., # 30 capsule, 11 Refills, Maintenance, 04/23/21 14:51:00 EST, Capsule, [facility] #[id number], Partial fill upon patient request if the prescription is for a schedule II opi... Start Date: 04/23/21 Status: Ordered aspirin 81 mg oral delayed release tablet 81 mg, 1, tablet, By Mouth, Daily, # 30 tablet, Refills 5, Tot. Refills 5, Maintenance, 11/02/19 11:39:00 EDT, Route to Pharmacy Electronically, [facility] #[id number], 167.64, cm, 11/02/19 10:58:00 EDT, Height, 100.4, [...] tablet, 11 Refills, Maintenance, 09/25/21 11:17:00 EDT, [facility] #[id number], 165, cm, 09/25/21 11:04:00 EDT, Height, 96, [...] each, 11 Refills, Maintenance, 09/25/21 11:17:00 EDT, [place], [facility] #[id number], 1 sprays Nares, Both 2 times a [...] Refills, Acute 03/13/22 14:45:00 EST, 03/20/2213:45:00 EST, [facility] #[id number], Partial fill upon patient request if the [...] 11 Refills, Maintenance, 03/02/19 10:19:00 EST, Capsule, [facility] #[id number], 1 capsule By Mouth Daily, 167.64, cm, [...] Dx chronic low back pain; may fill less, # 130 tablet, 0 Refills, Maintenance, 10/19/21 12:07:00 EDT, Tablet, [facility] #[id number], Par... Start Date: 10/19/21 Status: Ordered Paxlovid 150 mg-100 mg oral tablet See Instructions, 300mg nirmatrelvir (two 150mg tablets) with 100mg ritonavir (one tablet). All 3 tablets taken together twice daily By Mouth for 5 days, with or without food, # 30 tablet, 0 Refills,Maintenance, 10/18/21 16:41:00 EDT, [facility] Start Date: 10/18/21 Status: Ordered Prevacid [...] 09/25/21 11:17:00 EDT, Route to Pharmacy Electronically, [facility] #[id number], 165, cm, 09/25/2210:04:00 EDT, Height, 96, kg, 07/13/21 10:52:00 EDT... Start Date: 09/25/21 Status: Ordered tiZANidine 2 mg oral tablet 2 mg, 1, tablet, By Mouth, Every 8 hours, PRN, # 90 tablet, Refills 3, Tot. Refills 3, Maintenance,as needed for muscle spasm, 06/18/21 10:33:00 EDT, Route to Pharmacy Electronically, [facility][id number], Partial fill upon patient request, 16... Start [...] cats, dogs, maple, oak; starting immunotherapy 07/2015 Results Radiology Reports * Exam Date Time Procedure Performing Provider Status 10/26/21 7:26 PM Chest 2 Views Frontal and Lat Fred Kennedy; María (Verified) Notes: (Chest 2 Views Frontal and Lat) Reason For Exam: Shortness of Breath RESULT: Chest 2 Views Frontal and Lat Chest 2 Views Frontal and Lat Reason: Shortness of Breath; Clinical Question(s): Pneumonia COMPARISON: 06/02/2019 FINDINGS: LINES AND TUBES: None. LUNGS AND PLEURA: Probable nipple shadow in the left and right lower chest No evidence of pulmonary abnormality. No pleural effusion. No pneumothorax. HEART, MEDIASTINUM AND GILDA: Heart is normal in size. Normal upper mediastinal and hilar contour. BONES AND SOFT TISSUES: No acute abnormality. IMPRESSION: No acute abnormality. WSN: [id number] Ordering Physician: Yolette Rod Dictated By: Andres Guerra MD Dictated Date/Time: 10/26/21 7:30 pm Reviewed By: Andres Guerra MD Signed By: Andres Guerra MD Signed Date/Time: 10/26/21 7:30 pm Transcribed By: CARLIE Transcribed Date/Time: 10/26/21 7:30 pm Vital Signs Most recent to oldest [Reference Range]: 1 2 3 Height 165 cm (10/27/21 1:44 AM) 165 cm (10/26/21 7:50 PM) Weight 90.9 kg (10/27/21 1:44 AM) 90.9 kg (10/26/21 7:50 PM) Oxygen Saturation [94-100 %] 100 % (10/27/21 1:44 AM) 100 % (10/26/21 10:15 PM) 100 % (10/26/21 6:54 PM) Pulse Rate [55-90 bpm] 104 bpm *H* (10/27/21 1:44 AM) 98 bpm *H* (10/26/21 10:15 PM) 102 bpm *H* (10/26/21 6:54 PM) Blood Pressure [90-138/55-84 mm Hg] 132/112mm Hg (10/27/21 1:44 AM) 136/91mm Hg (10/26/21 10:15 PM) 135/93mm Hg (10/26/21 6:54 PM) Respiratory Rate [16-30 br/min] 16 br/min (10/27/21 1:44 AM) 16 br/min (10/26/21 10:15 PM) 18 br/min (10/26/21 6:54 PM) Temperature [96.8-100.4 DegF] 98.4 DegF (10/26/21 10:15 PM) 98.3 DegF (10/26/21 6:54 PM) Mode of Delivery (Oxygen) Room air (10/27/21 1:44 AM) Room air (10/26/21 10:15 PM) Room air (10/26/21 6:54 PM) Blood pressure sites Arm, left (10/26/21 6:54 PM) Temperature Route Oral (10/26/21 10:15 PM) Oral (10/26/21 6:54 PM) Dry Weight 90.9 kg (10/27/21 1:44 AM) 90.9 kg (10/26/21 7:50 PM) Social History Social History Type Response Tobacco Use: MARIJUANA. Sex Female
--- OUTSIDE RECORDS SUMMARY | 2023-09-12 11:26 | XMS_ITS | Continuity of Care Document ---
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 Refills 11, Maintenance, 11/24/17 13:49:05 EDT, Aerosol, Route to Pharmacy Electronically, [id number], [facility] [id number], Compound Start Date: 11/24/17 Status: Ordered albuterol-ipratropium 3 mg-0.5 mg/3 ml inhalation solution 1 vials, Inhalation, 4 times a day, # 180 mL, 5 Refills, Maintenance, 07/30/19 11:02:00 EDT, [facility] #[id number], 15, INHALE CONTENTS OF 1 VIAL VIA NEBULIZER FOUR TIMES DAILY, 167.64, cm, 04/24/19 16:16:00 EST, Height, 100.4, kg, 08/03/18 10:1... Start Date: 07/30/19 Status: Ordered amLODIPine 10 mg oral tablet 1 tablet, By Mouth, Daily, # 30 tablet, 2 Refills, Maintenance, 06/15/19 9:43:00 EDT, [facility] #[id number], 167.64, cm, 04/24/19 16:16:00 EST, Height, 100.4, kg, 08/03/18 10:14:00 EDT, Dry Weight Start Date: 06/15/19 Status: Ordered baclofen 10 mg oral tablet 1, tablet, By Mouth, 3 times a day, # 60 tablet, Refills 2, Tot. Refills 2, Maintenance, 06/14/19 9:10:00 EDT, Route to Pharmacy Electronically, [facility] #[id number], 167.64, cm, 04/24/19 16:16:00 EST, Height, 100.4, [...] 5 Refills, Maintenance, 04/16/19 13:06:00 EST, Tablet, [facility] #[id number], 167.64, cm, 03/02/19 10:23:00 EST, Height, 100.4, [...] DAILY, # 44 mL, 0 Refills, Maintenance, [facility] #23629, 29, SPRAY TWICE IN EACH NOSTRIL FOUR [...] each, 5 Refills, Maintenance, 06/05/18 19:53:47 EDT, [place], 1 sprays Nares, Both 2 times a [...] 11 Refills, Maintenance, 03/02/19 10:19:00 EST, Capsule, [facility] #48526, 1 capsule By Mouth Daily, 167.64, cm, [...] 4 HOURS NEEDED FOR NAUSEA OR VOMITING, [facility] #[id number] Start Date: 12/05/18 Status: Ordered raised toilet [...] Maintenance, 06/02/17 13:39:59, Route to Pharmacy Electronically, [id number], [facility] [id number] Start Date: 06/02/17 Status: Ordered Transfer Bench [...]
--- OUTSIDE RECORDS SUMMARY | 2023-09-12 11:26 | XMS_ITS | Continuity of Care Document ---
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 Start Date: 05/12/22 Status: Ordered albuterol CFC free 90 mcg/inh inhalation aerosol 2, puffs, Inhalation, 4 times a day, PRN, Dispense brand as required by insurance, # 18 Gm, [id number], Tot. Refills 11, Maintenance, 05/12/22 11:38:00 EST, Aerosol, Route to Pharmacy Electronically, [id number], [facility]... Start Date: 05/12/22 Status: Ordered albuterol-ipratropium 3 mg-0.5 mg/3 ml inhalation solution 1 vials, Inhalation, 4 times a day, # 180 mL, 11 Refills, Maintenance, 05/12/22 11:38:00 EST, [facility] #[id number], 15, 1 vials Inhalation 4 times a [...] tablet, 6 Refills, Maintenance, 12/07/22 16:46:00 EDT, [facility] #38720, 165, cm, 12/06/22 17:39:00 EDT, Height, 88.2, kg, 05/26/22 7:52:00EDT, Dry Weight Start Date: 12/07/22 Status: Ordered amlodipine-benazepril 5 mg-10 mg oral capsule 1 capsule, By Mouth, Daily, To replace prior prescription (amlodipine)., # 90 capsule, 11 Refills, Maintenance, 03/01/22 16:04:00 EST, Capsule, [facility] #65733, Partial fill upon patient request if the prescription is for a schedule II opi... Start Date: 03/01/22 Stop Date: 02/13/25 Status: Ordered apixaban 2.5 mg oral tablet 1 tablet = 2.5 mg, By Mouth, 2 times a day, # 60 tablet, 0 Refills, Maintenance, 05/28/22 8:20:00 EDT, Tablet, [facility], Partial fill upon patient request if [...] tablet, 11 Refills, Maintenance, 09/25/21 11:17:00 EDT, [facility] #52482, 165, cm, 09/25/21 11:04:00 EDT, Height, 96, [...] each, 11 Refills, Maintenance, 09/25/21 11:17:00 EDT, [place], [facility] #[id number], 1 sprays Nares, Both 2 times a day,x30 days, 165, cm, 09/25/21 11:04:00 EDT, Height, 96, kg, 07/13/21 10:52:00 EDT, Dry... Start Date: 09/25/21 Stop Date: 09/20/22 Status: Ordered Flovent HFA 220 mcg/inh inhalation aerosol 2 puffs, Inhalation, 2 times a day, # 12 Gm, 11 Refills, Maintenance, 05/19/22 13:39:00 EST, [facility] #31173, Partial fill upon patient request if the [...] 03/13/23 15:24:00 EST, 09/01/22 15:23:00 EDT, Ointment, [facility] #55425, Partial fill upon patient request if the [...] 05/12/22 11:38:00 EST, Route to Pharmacy Electronically, [facility] #38806, 168, cm, 05/12/2310:30:00 EST, Height, 85, kg, [...] Team Personnel Name: Tristin Hunt RN Position: [facility] RN Member Role: Primary Care Nurse Name: Lisseth Nassar NP Position: [facility] PCO Associate Professional Member Role: PCP Address: Address: [address] [place] [address]- Name: Lavern SPENCER, Edenilson Chen Position: [facility] VEGETABLE BUNCHER MD Member Role: Lifetime VEGETABLE BUNCHER Physician Address: Address: [address] [place] [address]- Name: Jovana Park RN Position: S RN Member Role: Primary Care Nurse Name: Chidi Clark DO Position: [facility] Renal MD Member Role: Lifetime Consulting Physician Address: Address: [address] [place], [place] [address] [place] [address]- Name: Mireya Torres RN Position: [facility] RN Member Role: Primary Care Nurse Name: Starr Harper RN Position: [facility] SN RN Member Role: Primary Care Nurse Name: Kelly Maddox RN Position: S RN Member Role: Primary Care Nurse Care Team Related Persons Name: MARYA ADRIAN Address: home [address] [place] [address] Name: MORALES HOWELL Address: home [address] [place] [address]
--- OUTSIDE RECORDS SUMMARY | 2023-09-12 11:27 | XMS_ITS | Continuity of Care Document ---
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 Start Date: 10/19/21 Status: Ordered albuterol-ipratropium 3 mg-0.5 mg/3 ml inhalation solution 1 vials, Inhalation, 4 times a day, # 180 mL, 5 Refills, Maintenance, 07/30/19 11:02:00 EDT, [facility] #54291, 15, INHALE CONTENTS OF 1 VIAL VIA [...] tablet, 11 Refills, Maintenance, 12/07/21 8:02:00 EDT, [facility] #30959, 165, cm, 10/27/21 1:44:00 EDT, Height, 90.9, kg, 10/27/21 1:44:00 EDT, Dry Weight Start Date: 12/07/21 Status: Ordered amlodipine-benazepril 5 mg-10 mg oral capsule 1 capsule, By Mouth, Daily, To replace prior prescription (amlodipine)., # 30 capsule, 11 Refills, Maintenance, 04/23/21 14:51:00 EST, Capsule, [facility] #22985, Partial fill upon patient request if the prescription is for a schedule II opi... Start Date: 04/23/21 Status: Ordered aspirin 81 mg oral delayed release tablet 81 mg, 1, tablet, By Mouth, Daily, # 30 tablet, Refills 5, Tot. Refills 5, Maintenance, 11/02/19 11:39:00 EDT, Route to Pharmacy Electronically, [facility] #99277, 167.64, cm, 11/02/19 10:58:00 EDT, Height, 100.4, kg, 08/03/18 10:14:00 EDT,... Start Date: 11/02/19 Status: Ordered baclofen 10 mg oral tablet 10 mg, 1, tablet, By Mouth, Daily at bedtime, # 30 tablet, Refills 5, Tot. Refills 5, Maintenance, 02/09/22 13:45:00 EST, Route to Pharmacy Electronically, [facility] #[id number], Partial fill upon patient request if the [...] tablet, 11 Refills, Maintenance, 09/25/21 11:17:00 EDT, [facility] #07057, 165, cm, 09/25/21 11:04:00 EDT, Height, 96, kg, 07/13/21 10:52:00 EDT, Dry Weight Start Date: 09/25/21 Status: Ordered clonazePAM 0.5 mg oral tablet 1 tablet = 0.5 mg, By Mouth, 3 times a day, PRN Anxiety, to be filled on or after 03/07/17 use sparingly; for pcp=julianne Nassar, # 90 tablet, 0 Refills, Maintenance, 03/02/17 [...] each, 11 Refills, Maintenance, 09/25/21 11:17:00 EDT, [place], [facility] #11175, 1 sprays Nares, Both 2 times a day,x30 days, 165, cm, 09/25/21 11:04:00 EDT, Height, 96, kg, 07/13/21 10:52:00 EDT, Dry... Start Date: 09/25/21 Stop Date: 09/20/22 Status: Ordered fluconazole 150 mg oral tablet 1 tablet = 150 mg, By Mouth, Once, Repeat dose if still having symptoms in 72 hours, # 2 tablet, 0 Refills, Soft Stop, 02/09/22 13:43:00 EST, Tablet, [facility] #81053, Partial fill upon patient request if the [...] Acute 03/13/22 13:51:00 EST, 12/14/2212:50:00 EDT, Ointment, [facility] #52543, Partial fill upon patient request if the [...] 11 Refills, Maintenance, 03/02/19 10:19:00 EST, Capsule, [facility] #[id number], 1 capsule By Mouth Daily, 167.64, cm, [...] 09/25/21 11:17:00 EDT, Route to Pharmacy Electronically, [facility] #[id number], 165, cm, 09/25/2210:04:00 EDT, Height, 96, kg, 07/13/21 10:52:00 EDT... Start Date: 09/25/21 Status: Ordered tiZANidine 2 mg oral tablet 2 mg, 1, tablet, By Mouth, Every 8 hours, PRN, # 90 tablet, Refills 3, Tot. Refills 3, Maintenance,as needed for muscle spasm, 06/18/21 10:33:00 EDT, Route to Pharmacy Electronically, [facility] #[id number], Partial fill upon patient request, 16... Start [...] Associate Professional Member Role: PCP Address: Address: [address] [place] [address]- Name: Lavern SPENCER, Edenilson Chen Position: [facility] GARDE MANGER MD Member Role: Lifetime GARDE MANGER Physician Address: Address: [address] [place] [address]- [place] Name: Chidi Clark DO Position: [facility] Renal MD Member Role: Lifetime Consulting Physician Address: Address: [address] [place] [address] [address] [facility] [place] [place] [address]- [place] Name: Meredith VASQUEZ, Starr Position: [facility] RN Member Role: Primary Care Nurse Care Team Related Persons Name: MARYA ADRIAN Address: home [address] [place] [address]
--- OUTSIDE RECORDS SUMMARY | 2023-09-12 11:27 | XMS_ITS | Continuity of Care Document ---
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 Start Date: 10/19/21 Status: Ordered albuterol-ipratropium 3 mg-0.5 mg/3 ml inhalation solution 1 vials, Inhalation, 4 times a day, # 180 mL, 5 Refills, Maintenance, 07/30/19 11:02:00 EDT, [facility] #[id number], 15, INHALE CONTENTS OF 1 VIAL VIA [...] tablet, 11 Refills, Maintenance, 12/07/21 8:02:00 EDT, [facility] #[id number], 165, cm, 10/27/21 1:44:00 EDT, Height, 90.9, kg, 10/27/21 1:44:00 EDT, Dry Weight Start Date: 12/07/21 Status: Ordered amlodipine-benazepril 5 mg-10 mg oral capsule 1 capsule, By Mouth, Daily, To replace prior prescription (amlodipine)., # 90 capsule, 11 Refills, Maintenance, 03/01/22 16:04:00 EST, Capsule, [facility] #09523, Partial fill upon patient request if the prescription is for a schedule II opi... Start Date: 03/01/22 Stop Date: 02/13/25 Status: Ordered aspirin 81 mg oral delayed release tablet 81 mg, 1, tablet, By Mouth, Daily, # 30 tablet, Refills 5, Tot. Refills 5, Maintenance, 11/02/19 11:39:00 EDT, Route to Pharmacy Electronically, [facility] #96246, 167.64, cm, 11/02/19 10:58:00 EDT, Height, 100.4, kg, 08/03/18 10:14:00 EDT,... Start Date: 11/02/19 Status: Ordered baclofen 10 mg oral tablet 10 mg, 1, tablet, By Mouth, Daily at bedtime, # 30 tablet, Refills 5, Tot. Refills 5, Maintenance, 02/09/22 13:45:00 EST, Route to Pharmacy Electronically, [facility] #[id number], Partial fill upon patient request if the [...] tablet, 11 Refills, Maintenance, 09/25/21 11:17:00 EDT, [facility] #29707, 165, cm, 09/25/21 11:04:00 EDT, Height, 96, kg, 07/13/21 10:52:00 EDT, Dry Weight Start Date: 09/25/21 Status: Ordered clonazePAM 0.5 mg oral tablet 1 tablet = 0.5 mg, By Mouth, 3 times a day, PRN Anxiety, to be filled on or after 03/07/17 use sparingly; for pcp=julianne Nassar checked, # 90 tablet, 0 Refills, Maintenance, 03/02/17 12:54:41 Start Date: 03/02/17 Stop Date: 1/19/18 Status: Ordered Compression Stockings See Instructions, # [...] each, 11 Refills, Maintenance, 09/25/21 11:17:00 EDT, [place], [facility] #50593, 1 sprays Nares, Both 2 times a day,x30 days, 165, cm, 09/25/21 11:04:00 EDT, Height, 96, kg, 07/13/21 10:52:00 EDT, Dry... Start Date: 09/25/21 Stop Date: 09/20/22 Status: Ordered fluconazole 150 mg oral tablet 1 tablet = 150 mg, By Mouth, Once, Repeat dose if still having symptoms in 72 hours, # 2 tablet, 0 Refills, Soft Stop, 02/09/22 13:43:00 EST, Tablet, [facility] #84905, Partial fill upon patient request if the [...] Acute 03/13/22 13:51:00 EST, 12/14/2212:50:00 EDT, Ointment, [facility] #72164, Partial fill upon patient request if the [...] 11 Refills, Maintenance, 03/02/19 10:19:00 EST, Capsule, [facility] #49446, 1 capsule By Mouth Daily, 167.64, cm, [...] 0 Refills, Maintenance, 03/10/22 10:18:00 EST, Tablet, [facility] #42043, Pa... Start Date: 03/10/22 Stop Date: 03/31/22 Status: Ordered Paxlovid 150 mg-100 mg oral tablet See Instructions, 300mg nirmatrelvir (two 150mg tablets) with 100mg ritonavir (one tablet). All 3 tablets taken together twice daily By Mouth for 5 days, with or without food, # 30 tablet, 0 Refills,Maintenance, 10/18/21 16:41:00 EDT, [facility] Start Date: 10/18/21 Status: Ordered Prevacid [...] 09/25/21 11:17:00 EDT, [id number], 165, cm, 09/25/2210:04:00 EDT, Height, 96, kg, 07/13/21 10:52:00 EDT... Start Date: 09/25/21 Status: Ordered tiZANidine 2 mg oral tablet 2 mg, 1, tablet, By Mouth, Every 8 hours, PRN, # 90 tablet, Refills 3, Tot. Refills 3, Maintenance,as needed for muscle spasm, 06/18/21 10:33:00 EDT, Route to Pharmacy Electronically, [facility] #[id number], Partial fill upon patient request, 16... Start [...] Team Personnel Name: Lisseth Nassar NP Position: [facility] PCO Associate Professional Member Role: PCP Address: Address: [address] [place] [address]- Name: Edenilson Puckett MD Position: [facility] DIRECTOR OF REIMBURSEMENT MD Member Role: Lifetime DIRECTOR OF REIMBURSEMENT Physician Address: Address: [address] [place] [address]- Name: Cihdi Clark DO Position: [facility] Renal MD Member Role: Lifetime Consulting Physician Address: Address: [address] [place] [address] [address] [facility] [place] [address]- Name: Starr Harper RN Position: [facility] RN Member Role: Primary Care Nurse Care Team Related Persons Name: MARYA ADRIAN Address: home [address] [place] [address]
--- OUTSIDE RECORDS SUMMARY | 2023-09-12 11:27 | XMS_ITS | Continuity of Care Document ---
Author Organization [facility] Address [address] [place] [address]- Care Team Providers Care Psychological Anthropologist Name Role Phone Cesario VALDEZ, Lisseth Hancock Primary Care Physician [facility] Date[facility]): 08/[facility] - 09/08/19 [facility] [address] [place] [address]- [facility] Attending Physician: Janette Connelly Admitting Physician: AdmJanette pa Referring Physician: AdmtrJanette Allergies, Adverse Reactions, Alerts Substance Reaction Severity Status sulfADIAZINE rash Active morphine rash & swelling Active sertraline 1 QT wave change Active sulfa drugs rash Active Bactrim rash Active NSAIDs 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 Active 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 Refills 11, Maintenance, 11/24/17 13:49:05 EDT, Aerosol, Route to Pharmacy Electronically, [id number], [facility] [id number], Compound Start Date: 11/24/17 Status: Ordered albuterol-ipratropium 3 mg-0.5 mg/3 ml inhalation solution 1 vials, Inhalation, 4 times a day, # 180 mL, 5 Refills, Maintenance, 07/30/19 11:02:00 EDT, [facility] #[id number], 15, INHALE CONTENTS OF 1 VIAL VIA NEBULIZER FOUR TIMES DAILY, 167.64, cm, 04/24/19 16:16:00 EST, Height, 100.4, kg, 08/03/18 10:1... Start Date: 07/30/19 Status: Ordered amLODIPine 10 mg oral tablet 1 tablet, By Mouth, Daily, # 30 tablet, 2 Refills, Maintenance, 06/15/19 9:43:00 EDT, [facility] #49795, 167.64, cm, 04/24/19 16:16:00 EST, Height, 100.4, kg, 08/03/18 10:14:00 EDT, Dry Weight Start Date: 06/15/19 Status: Ordered baclofen 10 mg oral tablet 1, tablet, By Mouth, 3 times a day, # 60 tablet, Refills 2, Tot. Refills 2, Maintenance, 06/14/19 9:10:00 EDT, Route to Pharmacy Electronically, [facility] #[id number], 167.64, cm, 04/24/19 16:16:00 EST, Height, 100.4, [...] 5 Refills, Maintenance, 04/16/19 13:06:00 EST, Tablet, [facility] #64547, 167.64, cm, 03/02/19 10:23:00 EST, Height, 100.4, [...] Maintenance, [facility] #[id number], 29, SPRAY TWICE IN EACH NOSTRIL FOUR [...] each, 5 Refills, Maintenance, 06/05/18 19:53:47 EDT, [place], 1 sprays Nares, Both 2 times a [...] 11 Refills, Maintenance, 03/02/19 10:19:00 EST, Capsule, [facility] #03468, 1 capsule By Mouth Daily, 167.64, cm, [...] 4 HOURS NEEDED FOR NAUSEA OR VOMITING, [facility] #72907 Start Date: 12/05/18 Status: Ordered raised toilet [...] Maintenance, 06/02/17 13:39:59, Route to Pharmacy Electronically, [id number], [facility] [address] Start Date: 06/02/17 Status: Ordered Transfer Bench [...]
--- OUTSIDE RECORDS SUMMARY | 2023-09-12 11:27 | XMS_ITS | Continuity of Care Document ---
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 Refills 11, Maintenance, 11/24/17 13:49:05 EDT, Aerosol, Route to Pharmacy Electronically, [id number], [facility] [address], Compound Start Date: 11/24/17 Status: Ordered albuterol-ipratropium 3 mg-0.5 mg/3 ml inhalation solution 1 vials, Inhalation, 4 times a day, # 180 mL, 5 Refills, Maintenance, 07/30/19 11:02:00 EDT, [facility] #58398, 15, INHALE CONTENTS OF 1 VIAL VIA NEBULIZER FOUR TIMES DAILY, 167.64, cm, 04/24/19 16:16:00 EST, Height, 100.4, kg, 08/03/18 10:1... Start Date: 07/30/19 Status: Ordered amlodipine-benazepril 5 mg-10 mg oral capsule 1 capsule, By Mouth, Daily, To replace prior prescription (amlodipine)., # 30 capsule, 3 Refills, Maintenance, 03/10/21 15:34:00 EST, Capsule, [facility] #91172, Partial fill upon patient request if the prescription is for a schedule II opio... Start Date: 03/10/21 Status: Ordered aspirin 81 mg oral delayed release tablet 81 mg, 1, tablet, By Mouth, Daily, # 30 tablet, Refills 5, Tot. Refills 5, Maintenance, 11/02/19 11:39:00 EDT, Route to Pharmacy Electronically, [facility] #11395, 167.64, cm, 11/02/19 10:58:00 EDT, Height, 100.4, kg, 08/03/18 10:14:00 EDT,... Start Date: 11/02/19 Status: Ordered bacitracin topical 500 u/gm ointment 1 application, Topically, 4 times a day, # 30 Gm, 0 Refills, Maintenance, 09/02/20 15:20:00 EDT, Ointment, [facility] #[id number], Partial fill upon patient request if the prescription is for a schedule II opioid drug., 1 application Topically 4... Start Date: 09/02/20 Stop Date: 09/12/20 Status: Ordered baclofen 10 mg oral tablet 1, tablet, By Mouth, 3 times a day, # 60 tablet, Refills 0, Tot. Refills 0, Maintenance, 02/25/20 13:59:00 EST, Route to Pharmacy Electronically, [facility] #[id number], 167.64, cm, 11/12/19 15:34:00 EDT, Height, 100.4, [...] tablet, 11 Refills, Maintenance, 01/11/20 10:43:00 EDT, [facility] #32321, 167.64, cm, 11/12/19 15:34:00 EDT, Height, 100.4, [...] DAILY, # 44 mL, 0 Refills, Maintenance, [id number], 29, SPRAY TWICE IN EACH NOSTRIL FOUR [...] 07/18/20 12:54:00 EDT, [facility] Start Date: 07/18/20 Stop Date: 07/13/21 Status: Ordered Flonase 50 mcg/inh nasal spray 1 sprays, Nares, Both, 2 times a day, # 1 each, 5 Refills, Maintenance, 06/05/18 19:53:47 EDT, [place], 1 sprays Nares, Both 2 times a [...] Acute 03/13/22 14:45:00 EST, 03/20/2213:45:00 EST, Ointment, [facility], Partial fill upon patient request if the [...] 11 Refills, Maintenance, 03/02/19 10:19:00 EST, Capsule, [facility] #33137, 1 capsule By Mouth Daily, 167.64, cm, [...] 4 HOURS NEEDED FOR NAUSEA OR VOMITING, [facility] #89236 Start Date: 12/05/18 Status: Ordered raised toilet [...] Maintenance, 06/02/17 13:39:59, Route to Pharmacy Electronically, [id number], [facility] [address] Start Date: 06/02/17 Status: Ordered tiZANidine 2 mg oral tablet 2 mg, 1, tablet, By Mouth, Every 8 hours, PRN, # 90 tablet, Refills 3, Tot. Refills 3, Maintenance,as needed for muscle spasm, 01/30/21 8:11:00 EST, Route to Pharmacy Electronically, [facility] #[id number], Partial fill upon patient request, 167... Start [...]
--- OUTSIDE RECORDS SUMMARY | 2023-09-12 11:27 | XMS_ITS | Continuity of Care Document ---
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 Refills 11, Maintenance, 11/24/17 13:49:05 EDT, Aerosol, Route to Pharmacy Electronically, [id number], [facility] [address], Compound Start Date: 11/24/17 Status: Ordered albuterol-ipratropium 3 mg-0.5 mg/3 ml inhalation solution 1 vials, Inhalation, 4 times a day, # 180 mL, 5 Refills, Maintenance, 07/30/19 11:02:00 EDT, [facility] #[id number], 15, INHALE CONTENTS OF 1 VIAL VIA NEBULIZER FOUR TIMES DAILY, 167.64, cm, 04/24/19 16:16:00 EST, Height, 100.4, kg, 08/03/18 10:1... Start Date: 07/30/19 Status: Ordered amLODIPine 10 mg oral tablet 1 tablet, By Mouth, Daily, # 30 tablet, 5 Refills, Maintenance, 05/06/20 12:30:00 EST, [facility] #62201, 167.64, cm, 03/25/20 14:59:00 EST, Height, 100.4, kg, 08/03/18 10:14:00 EDT, Dry Weight Start Date: 05/06/20 Status: Ordered aspirin 81 mg oral delayed release tablet 81 mg, 1, tablet, By Mouth, Daily, # 30 tablet, Refills 5, Tot. Refills 5, Maintenance, 11/02/19 11:39:00 EDT, Route to Pharmacy Electronically, [facility] #[id number], 167.64, cm, 11/02/19 10:58:00 EDT, Height, 100.4, kg, 08/03/18 10:14:00 EDT,... Start Date: 11/02/19 Status: Ordered bacitracin topical 500 u/gm ointment 1 application, Topically, 4 times a day, # 30 Gm, 0 Refills, Maintenance, 09/02/20 15:20:00 EDT, Ointment, [facility] #[id number], Partial fill upon patient request if the prescription is for a schedule II opioid drug., 1 application Topically 4... Start Date: 09/02/20 Stop Date: 09/12/20 Status: Ordered baclofen 10 mg oral tablet 1, tablet, By Mouth, 3 times a day, # 60 tablet, Refills 0, Tot. Refills 0, Maintenance, 02/25/20 13:59:00 EST, Route to Pharmacy Electronically, [facility] #[id number], 167.64, cm, 11/12/19 15:34:00 EDT, Height, 100.4, [...] tablet, 11 Refills, Maintenance, 01/11/20 10:43:00 EDT, [facility] #60106, 167.64, cm, 11/12/19 15:34:00 EDT, Height, 100.4, [...] DAILY, # 44 mL, 0 Refills, Maintenance, [facility] #35088, 29, SPRAY TWICE IN EACH NOSTRIL FOUR [...] each, 5 Refills, Maintenance, 06/05/18 19:53:47 EDT, [place], 1 sprays Nares, Both 2 times a [...] 11 Refills, Maintenance, 03/02/19 10:19:00 EST, Capsule, [facility] #49497, 1 capsule By Mouth Daily, 167.64, cm, [...] 4 HOURS NEEDED FOR NAUSEA OR VOMITING, [facility] #48303 Start Date: 12/05/18 Status: Ordered raised toilet [...] Maintenance, 06/02/17 13:39:59, Route to Pharmacy Electronically, [id number], [facility] [address] Start Date: 06/02/17 Status: Ordered tiZANidine 2 mg oral tablet 2 mg, 1, tablet, By Mouth, Every 8 hours, PRN, # 90 tablet, Refills 3, Tot. Refills 3, Maintenance,as needed for muscle spasm, 02/08/20 9:24:00 EST, Route to Pharmacy Electronically, [facility] #[id number], Partial fill upon patient request, 167... Start [...]
--- OUTSIDE RECORDS SUMMARY | 2023-09-12 11:27 | XMS_ITS | Continuity of Care Document ---
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 Refills 11, Maintenance, 11/24/17 13:49:05 EDT, Aerosol, Route to Pharmacy Electronically, [id number], [facility] [address], Compound Start Date: 11/24/17 Status: Ordered albuterol-ipratropium 3 mg-0.5 mg/3 ml inhalation solution 1 vials, Inhalation, 4 times a day, # 180 mL, 5 Refills, Maintenance, 07/30/19 11:02:00 EDT, [facility] #31006, 15, INHALE CONTENTS OF 1 VIAL VIA NEBULIZER FOUR TIMES DAILY, 167.64, cm, 04/24/19 16:16:00 EST, Height, 100.4, kg, 08/03/18 10:1... Start Date: 07/30/19 Status: Ordered amlodipine-benazepril 5 mg-10 mg oral capsule 1 capsule, By Mouth, Daily, To replace prior prescription (amlodipine)., # 30 capsule, 11 Refills, Maintenance, 04/23/21 14:51:00 EST, Capsule, [facility] #12609, Partial fill upon patient request if the prescription is for a schedule II opi... Start Date: 04/23/21 Status: Ordered aspirin 81 mg oral delayed release tablet 81 mg, 1, tablet, By Mouth, Daily, # 30 tablet, Refills 5, Tot. Refills 5, Maintenance, 11/02/19 11:39:00 EDT, Route to Pharmacy Electronically, [facility] #[id number], 167.64, cm, 11/02/19 10:58:00 EDT, Height, 100.4, kg, 08/03/18 10:14:00 EDT,... Start Date: 11/02/19 Status: Ordered bacitracin topical 500 u/gm ointment 1 application, Topically, 4 times a day, # 30 Gm, 0 Refills, Maintenance, 09/02/20 15:20:00 EDT, Ointment, [facility] #[id number], Partial fill upon patient request if the prescription is for a schedule II opioid drug., 1 application Topically 4... Start Date: 09/02/20 Stop Date: 09/12/20 Status: Ordered baclofen 10 mg oral tablet 1, tablet, By Mouth, 3 times a day, # 60 tablet, Refills 0, Tot. Refills 0, Maintenance, 02/25/20 13:59:00 EST, Route to Pharmacy Electronically, [facility] #[id number], 167.64, cm, 11/12/19 15:34:00 EDT, Height, 100.4, [...] tablet, 11 Refills, Maintenance, 01/11/20 10:43:00 EDT, [facility] #97198, 167.64, cm, 11/12/19 15:34:00 EDT, Height, 100.4, [...] DAILY, # 44 mL, 0 Refills, Maintenance, [facility], 29, SPRAY TWICE IN EACH NOSTRIL FOUR [...] 07/18/20 12:54:00 EDT, [facility] to [facility]ically, [facility] Start Date: 07/18/20 Stop Date: 07/13/21 Status: Ordered Flonase 50 mcg/inh nasal spray 1 sprays, Nares, Both, 2 times a day, # 1 each, 5 Refills, Maintenance, 06/05/18 19:53:47 EDT, [place], 1 sprays Nares, Both 2 times a [...] Acute 03/13/22 14:45:00 EST, 03/20/2213:45:00 EST, Ointment, [id number], Partial fill upon patient request if the [...] 11 Refills, Maintenance, 03/02/19 10:19:00 EST, Capsule, [facility] #[id number], 1 capsule By Mouth Daily, 167.64, cm, [...] 4 HOURS NEEDED FOR NAUSEA OR VOMITING, [facility] #03659 Start Date: 12/05/18 Status: Ordered raised toilet [...] Maintenance, 06/02/17 13:39:59, Route to Pharmacy Electronically, [id number], [facility] [address] Start Date: 06/02/17 Status: Ordered tiZANidine 2 mg oral tablet 2 mg, 1, tablet, By Mouth, Every 8 hours, PRN, # 90 tablet, Refills 3, Tot. Refills 3, Maintenance,as needed for muscle spasm, 01/30/21 8:11:00 EST, Route to Pharmacy Electronically, [facility] #07643, Partial fill upon patient request, 167... Start [...]
--- OUTSIDE RECORDS SUMMARY | 2023-09-12 11:27 | XMS_ITS | Continuity of Care Document ---
Author Organization [facility] Address [address] [place] [address]- Care Team Providers Care Drill Runner Name Role Phone Cesario VALDEZ, Lisseth Hancock Primary Care Physician [phone] [facility]): 03[facility]02[facility]21 - 04/01/21 [facility] [address] [place] [address]- [place] Allergies, Adverse Reactions, Alerts Substance Reaction Severity Status sulfADIAZINE rash Active morphine rash & swelling Active sertraline 1 QT wave change Active sulfa drugs rash Active Bactrim rash Active NSAIDs 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 Active 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 Refills 11, Maintenance, 11/24/17 13:49:05 EDT, Aerosol, Route to Pharmacy Electronically, [id number], [facility] [address], Compound Start Date: 11/24/17 Status: Ordered albuterol-ipratropium 3 mg-0.5 mg/3 ml inhalation solution 1 vials, Inhalation, 4 times a day, # 180 mL, 5 Refills, Maintenance, 07/30/19 11:02:00 EDT, [facility] #[id number], 15, INHALE CONTENTS OF 1 VIAL VIA NEBULIZER FOUR TIMES DAILY, 167.64, cm, 04/24/19 16:16:00 EST, Height, 100.4, kg, 08/03/18 10:1... Start Date: 07/30/19 Status: Ordered amlodipine-benazepril 5 mg-10 mg oral capsule 1 capsule, By Mouth, Daily, To replace prior prescription (amlodipine)., # 30 capsule, 3 Refills, Maintenance, 03/10/21 15:34:00 EST, Capsule, [facility] #43558, Partial fill upon patient request if the prescription is for a schedule II opio... Start Date: 03/10/21 Status: Ordered aspirin 81 mg oral delayed release tablet 81 mg, 1, tablet, By Mouth, Daily, # 30 tablet, Refills 5, Tot. Refills 5, Maintenance, 11/02/19 11:39:00 EDT, Route to Pharmacy Electronically, [facility] #95829, 167.64, cm, 11/02/19 10:58:00 EDT, Height, 100.4, kg, 08/03/18 10:14:00 EDT,... Start Date: 11/02/19 Status: Ordered bacitracin topical 500 u/gm ointment 1 application, Topically, 4 times a day, # 30 Gm, 0 Refills, Maintenance, 09/02/20 15:20:00 EDT, Ointment, [facility] #36363, Partial fill upon patient request if the prescription is for a schedule II opioid drug., 1 application Topically 4... Start Date: 09/02/20 Stop Date: 09/12/20 Status: Ordered baclofen 10 mg oral tablet 1, tablet, By Mouth, 3 times a day, # 60 tablet, Refills 0, Tot. Refills 0, Maintenance, 02/25/20 13:59:00 EST, Route to Pharmacy Electronically, [facility] #19201, 167.64, cm, 11/12/19 15:34:00 EDT, Height, 100.4, [...] tablet, 11 Refills, Maintenance, 01/11/20 10:43:00 EDT, [facility] #92609, 167.64, cm, 11/12/19 15:34:00 EDT, Height, 100.4, [...] DAILY, # 44 mL, 0 Refills, Maintenance, [facility] #98929, 29, SPRAY TWICE IN EACH NOSTRIL FOUR [...] 07/18/20 12:54:00 EDT, Route to Pharmacy Electronically, [facility]... Start Date: 07/18/20 Stop Date: 07/13/21 Status: Ordered Flonase 50 mcg/inh nasal spray 1 sprays, Nares, Both, 2 times a day, # 1 each, 5 Refills, Maintenance, 06/05/18 19:53:47 EDT, [place], 1 sprays Nares, Both 2 times a [...] Acute 03/13/22 14:45:00 EST, 03/20/2213:45:00 EST, Ointment, [facility] #[id number], Partial fill upon patient request if the [...] 11 Refills, Maintenance, 03/02/19 10:19:00 EST, Capsule, [facility] #71186, 1 capsule By Mouth Daily, 167.64, cm, [...] 4 HOURS NEEDED FOR NAUSEA OR VOMITING, [facility] #90984 Start Date: 12/05/18 Status: Ordered raised toilet [...] Maintenance, 06/02/17 13:39:59, Route to Pharmacy Electronically, [id number], [facility] [address] Start Date: 06/02/17 Status: Ordered tiZANidine 2 mg oral tablet 2 mg, 1, tablet, By Mouth, Every 8 hours, PRN, # 90 tablet, Refills 3, Tot. Refills 3, Maintenance,as needed for muscle spasm, 01/30/21 8:11:00 EST, Route to Pharmacy Electronically, [facility] #16972, Partial fill upon patient request, 167... Start [...]
--- OUTSIDE RECORDS SUMMARY | 2023-09-12 11:27 | XMS_ITS | Continuity of Care Document ---
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 Start Date: 01/26/23 Status: Ordered albuterol CFC free 90 mcg/inh inhalation aerosol 2, puffs, Inhalation, 4 times a day, PRN, Dispense brand as required by insurance, # 1 each, Refills 11, Tot. Refills 11, Maintenance, 01/26/23 14:00:00 EST, Aerosol, Route to Pharmacy Electronically, [id number], [facility]. Start Date: 01/26/23 Status: Ordered albuterol-ipratropium 3 mg-0.5 mg/3 ml inhalation solution 1 vials, Inhalation, 4 times a day, # 180 mL, 11 Refills, Maintenance, 01/27/23 9:25:00 EST, [facility] #[id number], 15, 1 vials Inhalation 4 times a [...] tablet, 6 Refills, Maintenance, 12/07/22 16:46:00 EDT, [facility] #00759, 165, cm, 12/06/22 17:39:00 EDT, Height, 88.2, kg, 05/26/22 7:52:00EDT, Dry Weight Start Date: 12/07/22 Status: Ordered amlodipine-benazepril 5 mg-10 mg oral capsule 1 capsule, By Mouth, Daily, TO. REPLACE BEFORE PRESCRIPTION AMLODIPINE, # 90 capsule, 0 Refills, Maintenance, 04/05/23 10:10:00 EST, [facility] #[id number], 90, TAKE 1 CAPSULE BY MOUTH DAILY [...] tablet, 3 Refills, Maintenance, 01/26/23 14:00:00 EST, [facility] #[id number], 165, cm, 01/26/23 13:31:00 EST, Height, 88.2, kg, 05/26/22 7:52:00 EDT, Dry Weight Start Date: 01/26/23 Stop Date: 01/21/24 Status: Ordered clonazePAM 1 mg oral tablet 1 tablet = 1 mg, By Mouth, 3 times a day, To use sparingly; to fill on/after 04/03/2023, # 90 tablet, 1 Refills, Maintenance, 03/29/23 12:46:00 EST, Tablet, [facility] #[id number], Partial fill upon patient request if the [...] each, 11 Refills, Maintenance, 09/25/21 11:17:00 EDT, [place], [facility] #06813, 1 sprays Nares, Both 2 times a day,x30 days, 165, cm, 09/25/21 11:04:00 EDT, Height, 96, kg, 07/13/21 10:52:00 EDT, Dry... Start Date: 09/25/21 Stop Date: 09/20/22 Status: Ordered fluconazole 150 mg oral tablet 1 tablet = 150 mg, By Mouth, Once, Repeat dose if still having symptoms in 72 hours, # 2 tablet, 1 Refills, Soft Stop, 01/26/23 14:19:00 EST, Tablet, [facility] #[id number], Partial fill upon patient request if the [...] pain; may fill less; May fill on/after 03/28/2023 to replace previous RX, # 180 tablet, 0 Refills, Maintenance, 03/25/23 8... Start Date: 03/25/23 Stop Date: 04/24/23 Status: Ordered oxyCODONE 15 mg oral tablet 1 tablet = 15 mg, By Mouth, Every 4 hours, PRN as needed for pain, Pt on narcotic contract; MassPatchecked; Dx chronic low back pain; may fill less; May fill on/after 10/12/2022; short RX due to supply at pharmacy, # 15 tablet, 0 Refills, Maintenance,... Start Date: 01/27/23 Stop Date: 01/31/23 Status: Ordered Prevacid 30 mg oral enteric coated capsule 1 capsule = 30 mg, By Mouth, Daily, # 90 capsule, 4 Refills, Maintenance, 01/26/23 14:02:00 EST, [facility] #[id number], 165, cm, 01/26/23 13:31:00 EST, Height, 88.2, kg, 05/26/22 7:52:00 EDT, Dry Weight Start Date: 01/26/23 Stop Date: 04/20/24 Status: Ordered Pulmicort Flexhaler 180 mcg 1 puffs, Inhalation, 2 times a day, # 3 each, 11 Refills, Maintenance, 04/11/23 10:54:00 EST, Powder, [facility] #[id number], Partial fill upon patient request if the prescription is for a schedule II opioid drug., 1 puffs Inhalation 2 times a da... Start Date: 04/11/23 Status: Ordered Quetiapine 200 mg, By Mouth, [...] 01/26/23 14:02:00 EST, Route to Pharmacy Electronically, [facility] #[id number], 165, cm, 01/26/23 13:31:00 EST, Height, 88.2, [...] Care Nurse Name: Lisseth Nassar NP Position: [facility] PCO Associate Professional Member Role: PCP Address: Address: [address] [place] [address]- Name: Edenilson Puckett MD Position: [facility] RUBBER TUBING BACKER MD Member Role: Lifetime RUBBER TUBING BACKER Physician Address: Address: [address] [place] [address]- Name: Jovana Park RN Position: [facility] SN RN Member Role: Primary Care Nurse Name: Chidi Clark DO Position: [facility] Renal MD Member Role: Lifetime Consulting Physician Address: Address: [address] [place], [place] [address]E [facility] [place] [address]- Name: Mireya Torres RN Position: S RN Member Role: Primary Care Nurse Name: Starr Harper RN Position: [facility] SN RN Member Role: Primary Care Nurse Name: Kelly Maddox RN Position: S RN Member Role: Primary Care Nurse Care Team Related Persons Name: KAYLAH MARYA Address: home [address] [place] [address] Name: MORALES HOWELL Address: home [address] [place] [address]
--- OUTSIDE RECORDS SUMMARY | 2023-09-12 11:27 | XMS_ITS | Continuity of Care Document ---
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 Refills 11, Maintenance, 11/24/17 13:49:05 EDT, Aerosol, Route to Pharmacy Electronically, [id number], [facility] [id number], Compound Start Date: 11/24/17 Status: Ordered albuterol-ipratropium 3 mg-0.5 mg/3 ml inhalation solution 1 vials, Inhalation, 4 times a day, # 180 mL, 5 Refills, Maintenance, 07/30/19 11:02:00 EDT, [facility] #50471, 15, INHALE CONTENTS OF 1 VIAL VIA NEBULIZER FOUR TIMES DAILY, 167.64, cm, 04/24/19 16:16:00 EST, Height, 100.4, kg, 08/03/18 10:1... Start Date: 07/30/19 Status: Ordered amLODIPine 10 mg oral tablet 1 tablet, By Mouth, Daily, # 30 tablet, 5 Refills, Maintenance, 05/06/20 12:30:00 EST, [facility] #40151, 167.64, cm, 03/25/20 14:59:00 EST, Height, 100.4, kg, 08/03/18 10:14:00 EDT, Dry Weight Start Date: 05/06/20 Status: Ordered aspirin 81 mg oral delayed release tablet 81 mg, 1, tablet, By Mouth, Daily, # 30 tablet, Refills 5, Tot. Refills 5, Maintenance, 11/02/19 11:39:00 EDT, Route to Pharmacy Electronically, [facility] #52829, 167.64, cm, 11/02/19 10:58:00 EDT, Height, 100.4, kg, 08/03/18 10:14:00 EDT,... Start Date: 11/02/19 Status: Ordered bacitracin topical 500 u/gm ointment 1 application, Topically, 4 times a day, # 30 Gm, 0 Refills, Maintenance, 09/02/20 15:20:00 EDT, Ointment, [facility] #52634, Partial fill upon patient request if the prescription is for a schedule II opioid drug., 1 application Topically 4... Start Date: 09/02/20 Stop Date: 09/12/20 Status: Ordered baclofen 10 mg oral tablet 1, tablet, By Mouth, 3 times a day, # 60 tablet, Refills 0, Tot. Refills 0, Maintenance, 02/25/20 13:59:00 EST, Route to Pharmacy Electronically, [facility] #[id number], 167.64, cm, 11/12/19 15:34:00 EDT, Height, 100.4, [...] tablet, 11 Refills, Maintenance, 01/11/20 10:43:00 EDT, [facility] #24314, 167.64, cm, 11/12/19 15:34:00 EDT, Height, 100.4, kg, 08/03/18 10:14:00 EDT, Dry Weight Start Date: 01/11/20 Status: Ordered clonazePAM 0.5 mg oral tablet 1 tablet = 0.5 mg, By Mouth, 3 times a day, PRN Anxiety, to be filled on or after 03/07/17 use sparingly; for pcp=juilanne Nassar checked, # 90 tablet, 0 Refills, [...] DAILY, # 44 mL, 0 Refills, Maintenance, [facility]07[facility], 29, SPRAY TWICE IN EACH NOSTRIL FOUR [...] each, 5 Refills, Maintenance, 06/05/18 19:53:47 EDT, [place], 1 sprays Nares, Both 2 times a [...] 11 Refills, Maintenance, 03/02/19 10:19:00 EST, Capsule, [facility] #[id number], 1 capsule By Mouth Daily, 167.64, cm, [...] 4 HOURS NEEDED FOR NAUSEA OR VOMITING, [facility] #36189 Start Date: 12/05/18 Status: Ordered raised toilet [...] Maintenance, 06/02/17 13:39:59, Route to Pharmacy Electronically, [id number], [facility] [address] Start Date: 06/02/17 Status: Ordered tiZANidine 2 mg oral tablet 2 mg, 1, tablet, By Mouth, Every 8 hours, PRN, # 90 tablet, Refills 3, Tot. Refills 3, Maintenance,as needed for muscle spasm, 02/08/20 9:24:00 EST, Route to Pharmacy Electronically, [facility] #[id number], Partial fill upon patient request, 167... Start [...]
--- OUTSIDE RECORDS SUMMARY | 2023-09-12 11:27 | XMS_ITS | Continuity of Care Document ---
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 Start Date: 05/12/22 Status: Ordered albuterol CFC free 90 mcg/inh inhalation aerosol 2, puffs, Inhalation, 4 times a day, PRN, Dispense brand as required by insurance, # 18 Gm, [id number], Tot. Refills 11, Maintenance, 05/12/22 11:38:00 EST, Aerosol, Route to Pharmacy Electronically, [id number], [facility]... Start Date: 05/12/22 Status: Ordered albuterol-ipratropium 3 mg-0.5 mg/3 ml inhalation solution 1 vials, Inhalation, 4 times a day, # 180 mL, 11 Refills, Maintenance, 05/12/22 11:38:00 EST, [facility] #[id number], 15, 1 vials Inhalation 4 times a [...] tablet, 6 Refills, Maintenance, 12/07/22 16:46:00 EDT, [facility] #[id number], 165, cm, 12/06/22 17:39:00 EDT, Height, 88.2, kg, 05/26/22 7:52:00EDT, Dry Weight Start Date: 12/07/22 Status: Ordered amlodipine-benazepril 5 mg-10 mg oral capsule 1 capsule, By Mouth, Daily, To replace prior prescription (amlodipine)., # 90 capsule, 11 Refills, Maintenance, 03/01/22 16:04:00 EST, Capsule, [facility] #33996, Partial fill upon patient request if the prescription is for a schedule II opi... Start Date: 03/01/22 Stop Date: 02/13/25 Status: Ordered apixaban 2.5 mg oral tablet 1 tablet = 2.5 mg, By Mouth, 2 times a day, # 60 tablet, 0 Refills, Maintenance, 05/28/22 8:20:00 EDT, Tablet, [facility] [...] tablet, 11 Refills, Maintenance, 09/25/21 11:17:00 EDT, [facility] #[id number], 165, cm, 09/25/21 11:04:00 EDT, Height, 96, [...] each, 11 Refills, Maintenance, 09/25/21 11:17:00 EDT, [place], [facility] #[id number], 1 sprays Nares, Both 2 times a day,x30 days, 165, cm, 09/25/21 11:04:00 EDT, Height, 96, kg, 07/13/21 10:52:00 EDT, Dry... Start Date: 09/25/21 Stop Date: 09/20/22 Status: Ordered Flovent HFA 220 mcg/inh inhalation aerosol 2 puffs, Inhalation, 2 times a day, # 12 Gm, 11 Refills, Maintenance, 05/19/22 13:39:00 EST, [facility]88059, Partial fill upon patient request if the [...] EDT, Ointment, [facility] #70885, Partial fill upon patient request if the [...] 05/12/22 11:38:00 EST, Route to Pharmacy Electronically, [facility] #06069, 168, cm, 05/12/2310:30:00 EST, Height, 85, kg, [...] Associate Professional Member Role: PCP Address: Address: [address] [place] [address]- Name: Lavern SPENCER, Edenilson Chen Position: [facility] MARKET ANALYST MD Member Role: Lifetime MARKET ANALYST Physician Address: Address: [address] [place] [address]- Name: Jovana Park RN Position: S RN Member Role: Primary Care Nurse Name: Chidi Clark DO Position: [facility] Renal MD Member Role: Lifetime Consulting Physician Address: Address: [address] [place], [place] [address]E [facility] [place] [address]- Name: Mireya Torres RN Position: [facility] RN Member Role: Primary Care Nurse Name: Starr Harper RN Position: [facility] SN RN Member Role: Primary Care Nurse Name: Kelly Maddox RN Position: S RN Member Role: Primary Care Nurse Care Team Related Persons Name: MARYA ADRIAN Address: home [address] [place] [address] Name: MORALES HOWELL Address: home [address] [place] [address]
--- OUTSIDE RECORDS SUMMARY | 2023-09-12 11:28 | XMS_ITS | Continuity of Care Document ---
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 Refills 11, Maintenance, 11/24/17 13:49:05 EDT, Aerosol, Route to Pharmacy Electronically, [id number], [facility] 69185, Compound Start Date: 11/24/17 Status: Ordered albuterol-ipratropium 3 mg-0.5 mg/3 ml inhalation solution 1 vials, Inhalation, 4 times a day, # 180 mL, 5 Refills, Maintenance, 07/30/19 11:02:00 EDT, [facility] #30910, 15, INHALE CONTENTS OF 1 VIAL VIA NEBULIZER FOUR TIMES DAILY, 167.64, cm, 04/24/19 16:16:00 EST, Height, 100.4, kg, 08/03/18 10:1... Start Date: 07/30/19 Status: Ordered amlodipine-benazepril 5 mg-10 mg oral capsule 1 capsule, By Mouth, Daily, To replace prior prescription (amlodipine)., # 30 capsule, 11 Refills, Maintenance, 04/23/21 14:51:00 EST, Capsule, [facility] #79754, Partial fill upon patient request if the prescription is for a schedule II opi... Start Date: 04/23/21 Status: Ordered aspirin 81 mg oral delayed release tablet 81 mg, 1, tablet, By Mouth, Daily, # 30 tablet, Refills 5, Tot. Refills 5, Maintenance, 11/02/19 11:39:00 EDT, Route to Pharmacy Electronically, [facility] #46352, 167.64, cm, 11/02/19 10:58:00 EDT, Height, 100.4, kg, 08/03/18 10:14:00 EDT,... Start Date: 11/02/19 Status: Ordered bacitracin topical 500 u/gm ointment 1 application, Topically, 4 times a day, # 30 Gm, 0 Refills, Maintenance, 09/02/20 15:20:00 EDT, Ointment, [facility] #25990, Partial fill upon patient request if the prescription is for a schedule II opioid drug., 1 application Topically 4... Start Date: 09/02/20 Stop Date: 09/12/20 Status: Ordered baclofen 10 mg oral tablet 1, tablet, By Mouth, 3 times a day, # 60 tablet, Refills 0, Tot. Refills 0, Maintenance, 02/25/20 13:59:00 EST, Route to Pharmacy Electronically, [facility] #[id number], 167.64, cm, 11/12/19 15:34:00 EDT, Height, 100.4, [...] tablet, 11 Refills, Maintenance, 01/11/20 10:43:00 EDT, [facility] #[id number], 167.64, cm, 11/12/19 15:34:00 EDT, Height, 100.4, [...] DAILY, # 44 mL, 0 Refills, Maintenance, [facility]438[facility], 29, SPRAY TWICE IN EACH NOSTRIL FOUR [...] 07/18/20 12:54:00 EDT, [facility] Start Date: 07/18/20 Stop Date: 07/13/21 Status: Ordered Flonase 50 mcg/inh nasal spray 1 sprays, Nares, Both, 2 times a day, # 1 each, 5 Refills, Maintenance, 06/05/18 19:53:47 EDT, [place], 1 sprays Nares, Both 2 times a [...] Acute 03/13/22 14:45:00 EST, 03/20/2213:45:00 EST, Ointment, [facility][id number], Partial fill upon patient request if the [...] 11 Refills, Maintenance, 03/02/19 10:19:00 EST, Capsule, [facility] #84800, 1 capsule By Mouth Daily, 167.64, cm, [...] 4 HOURS NEEDED FOR NAUSEA OR VOMITING, [facility] #51785 Start Date: 12/05/18 Status: Ordered raised toilet [...] Maintenance, 06/02/17 13:39:59, Route to Pharmacy Electronically, [id number], [facility] [address] Start Date: 06/02/17 Status: Ordered tiZANidine 2 mg oral tablet 2 mg, 1, tablet, By Mouth, Every 8 hours, PRN, # 90 tablet, Refills 3, Tot. Refills 3, Maintenance,as needed for muscle spasm, 01/30/21 8:11:00 EST, Route to Pharmacy Electronically, [facility] #[id number], Partial fill upon patient request, 167... Start [...]
--- OUTSIDE RECORDS SUMMARY | 2023-09-12 11:28 | XMS_ITS | Continuity of Care Document ---
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 Start Date: 10/19/21 Status: Ordered albuterol-ipratropium 3 mg-0.5 mg/3 ml inhalation solution 1 vials, Inhalation, 4 times a day, # 180 mL, 5 Refills, Maintenance, 07/30/19 11:02:00 EDT, [facility] #95932, 15, INHALE CONTENTS OF 1 VIAL VIA [...] tablet, 11 Refills, Maintenance, 12/07/21 8:02:00 EDT, [facility] #42422, 165, cm, 10/27/21 1:44:00 EDT, Height, 90.9, kg, 10/27/21 1:44:00 EDT, Dry Weight Start Date: 12/07/21 Status: Ordered amlodipine-benazepril 5 mg-10 mg oral capsule 1 capsule, By Mouth, Daily, To replace prior prescription (amlodipine)., # 30 capsule, 11 Refills, Maintenance, 04/23/21 14:51:00 EST, Capsule, [facility] #50723, Partial fill upon patient request if the prescription is for a schedule II opi... Start Date: 04/23/21 Status: Ordered aspirin 81 mg oral delayed release tablet 81 mg, 1, tablet, By Mouth, Daily, # 30 tablet, Refills 5, Tot. Refills 5, Maintenance, 11/02/19 11:39:00 EDT, Route to Pharmacy Electronically, [facility] #43452, 167.64, cm, 11/02/19 10:58:00 EDT, Height, 100.4, [...] tablet, 11 Refills, Maintenance, 09/25/21 11:17:00 EDT, [facility] #89604, 165, cm, 09/25/21 11:04:00 EDT, Height, 96, [...] each, 11 Refills, Maintenance, 09/25/21 11:17:00 EDT, [email or web address] #25472, 1 sprays Nares, Both 2 times a [...] Acute 03/13/22 13:51:00 EST, 12/14/2212:50:00 EDT, Ointment, [facility] #05801, Partial fill upon patient request if the [...] 11 Refills, Maintenance, 03/02/19 10:19:00 EST, Capsule, [facility] #68070, 1 capsule By Mouth Daily, 167.64, cm, [...] 30 tablet, 0 Refills,Maintenance, 10/18/21 16:41:00 EDT, [facility] Start Date: 10/18/21 Status: Ordered Prevacid [...] 09/25/21 11:17:00 EDT, Route to Pharmacy Electronically, [facility] #[id number], 165, cm, 09/25/2210:04:00 EDT, Height, 96, kg, 07/13/21 10:52:00 EDT... Start Date: 09/25/21 Status: Ordered tiZANidine 2 mg oral tablet 2 mg, 1, tablet, By Mouth, Every 8 hours, PRN, # 90 tablet, Refills 3, Tot. Refills 3, Maintenance,as needed for muscle spasm, 06/18/21 10:33:00 EDT, Route to Pharmacy Electronically, [facility] #95042, Partial fill upon patient request, 16... Start [...] Professional Member Role: PCP Address: Address: [address] [place] [address]- Name: Lavern SPENCER, Edenilson Chen Position: [facility] SPRINKLER WORKER MD Member Role: Lifetime SPRINKLER WORKER Physician Address: Address: [address] [place] [address]- Name: Chidi Clark DO Position: [facility] Renal MD Member Role: Lifetime Consulting Physician Address: Address: [address] [place] [address] [address] [facility] [place] [address]- Name: Starr Harper RN Position: [facility] RN Member Role: Primary Care Nurse Care Team Related Persons Name: MARYA ADRIAN Address: home [address] [place] [id number]
--- OUTSIDE RECORDS SUMMARY | 2023-09-12 11:28 | XMS_ITS | Continuity of Care Document ---
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 Active 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 Immunizations Given and Recorded Vaccine Date Status Refusal Reason influenza virus vaccine, inactivated 04/14/22 Give n influenza virus vaccine, inactivated 03/16/20 Anthony rded influenza virus vaccine, inactivated 04/26/19 Anthony rded influenza virus vaccine, inactivated 12/27/17 Give n influenza virus vaccine, inactivated 01/06/16 Give n influenza virus vaccine, inactivated 03/13/15 Give n influenza virus vaccine, inactivated 01/01/13 Anhtony rded influenza virus vaccine, inactivated 1 12/24/09 [...] each, 11 Refills,Maintenance, 01/26/23 14:00:00 EST, Solution, [facility] #[id number], 165, cm, 01/26/23 13:31:00 EST, Height, 88.2, kg, 05/26/22 7:52:00 EDT, Dry... Start Date: 01/26/23 Status: Ordered albuterol CFC free 90 mcg/inh inhalation aerosol 2, puffs, Inhalation, 4 times a day, PRN, Dispense brand as required by insurance, # 1 each, Refills 11, Tot. Refills 11, Maintenance, 01/26/23 14:00:00 EST, Aerosol, Route to Pharmacy Electronically, [id number], [facility]. Start Date: 01/26/23 Status: Ordered albuterol-ipratropium 3 mg-0.5 mg/3 ml inhalation solution 1 vials, Inhalation, 4 times a day, # 180 mL, 11 Refills, Maintenance, 01/27/23 9:25:00 EST, [facility] #[id number], 15, 1 vials Inhalation 4 times a [...] tablet, 6 Refills, Maintenance, 12/07/22 16:46:00 EDT, [facility] #[id number], 165, cm, 12/06/22 17:39:00 EDT, Height, 88.2, kg, 05/26/22 7:52:00EDT, Dry Weight Start Date: 12/07/22 Status: Ordered amlodipine-benazepril 5 mg-10 mg oral capsule 1 capsule, By Mouth, Daily, TO. REPLACE BEFORE PRESCRIPTION AMLODIPINE, # 90 capsule, 0 Refills, Maintenance, 04/05/23 10:10:00 EST, [facility] #[id number], 90, TAKE 1 CAPSULE BY MOUTH DAILY [...] tablet, 3 Refills, Maintenance, 01/26/23 14:00:00 EST, [facility] #[id number], 165, cm, 11/15/23 13:31:00 EST, Height, 88.2, kg, 05/26/22 7:52:00 EDT, Dry Weight Start Date: 01/26/23 Stop Date: 01/21/24 Status: Ordered clonazePAM 1 mg oral tablet 1 tablet = 1 mg, By Mouth, 3 times a day, To use sparingly; to fill on/after 04/03/2023, # 90 tablet, 1 Refills, Maintenance, 03/29/23 12:46:00 EST, Tablet, [facility] #[id number], Partial fill upon patient request if the [...] each, 11 Refills, Maintenance, 09/25/21 11:17:00 EDT, [place], [facility] #[id number], 1 sprays Nares, Both 2 times a day,x30 days, 165, cm, 09/25/21 11:04:00 EDT, Height, 96, kg, 07/13/21 10:52:00 EDT, Dry... Start Date: 09/25/21 Stop Date: 09/20/22 Status: Ordered fluconazole 150 mg oral tablet 1 tablet = 150 mg, By Mouth, Once, Repeat dose if still having symptoms in 72 hours, # 2 tablet, 1 Refills, Soft Stop, 04/27/23 14:34:00 EST, Tablet, [facility] #[id number], Partial fill upon patient request if the prescription is for a schedule... Start Date: 04/27/23 Status: Ordered fluticasone 250 mcg/inh inhalation powder 1 puffs, Inhalation, 2 times a day, dispense brand as required by insurance, # 120 each, 11 Refills, Maintenance, 04/29/23 9:44:00 EST, Powder, [facility] #[id number], Partial fill upon patient request if the [...] pain; may fill less; May fill on/after 04/25/2023 to replace previous RX, # 180 tablet, 0 Refills, Maintenance, 04/25/23 1... Start Date: 04/25/23 Stop Date: 05/25/23 Status: Ordered oxyCODONE 15 mg oral tablet [...] capsule, 4 Refills, Maintenance, 01/26/23 14:02:00 EST, [facility] #[id number], 165, cm, 01/26/23 13:31:00 EST, Height, 88.2, [...] 01/26/23 14:02:00 EST, Route to Pharmacy Electronically, [facility] #[id number], 165, cm, 01/26/23 13:31:00 EST, Height, 88.2, [...] Care Nurse Name: Lisseth Nassar NP Position: [facility] PCO Associate Professional Member Role: PCP Address: Address: [address] [place] [address]- Name: Edenilson Puckett MD Position: [facility] ADMITTING OFFICE ESCORT MD Member Role: Lifetime ADMITTING OFFICE ESCORT Physician Address: Address: [address] [place] [address]- Name: Jovana Park RN Position: [facility] SN RN Member Role: Primary Care Nurse Name: Chidi Clark DO Position: [facility] Renal MD Member Role: Lifetime Consulting Physician Address: Address: [address] [place], [place] [address] [place] [address]- Name: Mireya Torres RN Position: S RN Member Role: Primary Care Nurse Name: Starr Harper RN Position: [facility] SN RN Member Role: Primary Care Nurse Name: Kelly Maddox RN Position: S RN Member Role: Primary Care Nurse Care Team Related Persons Name: KAYLAH MARYA Address: [address] [place] [address] Name: MORALES HOWELL Address: home [address] [place] [address]
--- OUTSIDE RECORDS SUMMARY | 2023-09-12 11:28 | XMS_ITS | Continuity of Care Document ---
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 Start Date: 01/26/23 Status: Ordered albuterol CFC free 90 mcg/inh inhalation aerosol 2, puffs, Inhalation, 4 times a day, PRN, Dispense brand as required by insurance, # 1 each, Refills 11, Tot. Refills 11, Maintenance, 01/26/23 14:00:00 EST, Aerosol, Route to Pharmacy Electronically, [id number], [facility]. Start Date: 01/26/23 Status: Ordered albuterol-ipratropium 3 mg-0.5 mg/3 ml inhalation solution 1 vials, Inhalation, 4 times a day, # 180 mL, 11 Refills, Maintenance, 01/27/23 9:25:00 EST, [facility] #[id number], 15, 1 vials Inhalation 4 times a [...] tablet, 6 Refills, Maintenance, 12/07/22 16:46:00 EDT, [facility] #[id number], 165, cm, 12/06/22 17:39:00 EDT, Height, 88.2, kg, 05/26/22 7:52:00EDT, Dry Weight Start Date: 12/07/22 Status: Ordered amlodipine-benazepril 5 mg-10 mg oral capsule 1 capsule, By Mouth, Daily, To replace prior prescription (amlodipine)., # 90 capsule, 11 Refills, Maintenance, 03/01/22 16:04:00 EST, Capsule, [facility] #[id number], Partial fill upon patient request if the [...] tablet, 3 Refills, Maintenance, 01/26/23 14:00:00 EST, [facility] #[id number], 165, cm, 01/26/23 13:31:00 EST, Height, 88.2, [...] each, 11 Refills, Maintenance, 09/25/21 11:17:00 EDT, [place], [facility] #[id number], 1 sprays Nares, Both 2 times a day,x30 days, 165, cm, 09/25/21 11:04:00 EDT, Height, 96, kg, 07/13/21 10:52:00 EDT, Dry... Start Date: 09/25/21 Stop Date: 09/20/22 Status: Ordered fluconazole 150 mg oral tablet 1 tablet = 150 mg, By Mouth, Once, Repeat dose if still having symptoms in 72 hours, # 2 tablet, 1 Refills, Soft Stop, 01/26/23 14:19:00 EST, Tablet, [facility] #[id number], Partial fill upon patient request if the [...] 11 Refills, Maintenance, 01/26/23 14:04:00 EST, Aerosol, [facility] #[id number], Partial fill upon patient request if the prescription is for a s... Start Date: 01/26/23 Status: Ordered mupirocin 2% topical ointment 1 application, Topically, 3 times a day, # 30 Gm, 2 Refills, Acute 03/13/23 15:24:00 EST, 09/01/22 15:23:00 EDT, Ointment, [facility] #[id number], Partial fill upon patient request if the [...] pain; may fill less; May fill on/after 03/02/2023 to replace previous RX, # 180 tablet, 0 Refills, Maintenance, 02/23/23... Start Date: 02/23/23 Stop Date: 03/25/23 Status: Ordered oxyCODONE 15 mg oral tablet [...] capsule, 4 Refills, Maintenance, 01/26/23 14:02:00 EST, [facility] #[id number], 165, cm, 01/26/23 13:31:00 EST, Height, 88.2, [...] 01/26/23 14:02:00 EST, Route to Pharmacy Electronically, [facility] #[id number], 165, cm, 01/26/23 13:31:00 EST, Height, 88.2, [...] Team Personnel Name: Tristin Hunt RN Position: [facility] RN Member Role: Primary Care Nurse Name: Lisseth Nassar NP Position: [facility] PCO Associate Professional Member Role: PCP Address: Address: [address] [place] [address]- Name: Edenilson Puckett MD Position: [facility] LIGHTING SPECIALIST MD Member Role: Lifetime LIGHTING SPECIALIST Physician Address: Address: [address] [place] [address]- Name: Jovana Park RN Position: [facility] SN RN Member Role: Primary Care Nurse Name: Chidi Clark DO Position: [facility] Renal MD Member Role: Lifetime Consulting Physician Address: Address: [address] [place] [address] [address] [facility] [place] [address]- Name: Mireya Torres RN Position: S RN Member Role: Primary Care Nurse Name: Starr Harper RN Position: [facility] SN RN Member Role: Primary Care Nurse Name: Kelly Maddox RN Position: S RN Member Role: Primary Care Nurse Care Team Related Persons Name: MARYA ADRIAN Address: home [address] [place] [address] Name: MORALES HOWELL Address: home [address] [place] [address]
--- OUTSIDE RECORDS SUMMARY | 2023-09-12 11:28 | XMS_ITS | Continuity of Care Document ---
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 Start Date: 01/26/23 Status: Ordered albuterol CFC free 90 mcg/inh inhalation aerosol 2, puffs, Inhalation, 4 times a day, PRN, Dispense brand as required by insurance, # 1 each, Refills 11, Tot. Refills 11, Maintenance, 01/26/23 14:00:00 EST, Aerosol, Route to Pharmacy Electronically, [id number], [facility]. Start Date: 01/26/23 Status: Ordered albuterol-ipratropium 3 mg-0.5 mg/3 ml inhalation solution 1 vials, Inhalation, 4 times a day, # 180 mL, 11 Refills, Maintenance, 01/27/23 9:25:00 EST, [facility] #[id number], 15, 1 vials Inhalation 4 times a [...] tablet, 6 Refills, Maintenance, 12/07/22 16:46:00 EDT, [facility] #[id number], 165, cm, 12/06/22 17:39:00 EDT, Height, 88.2, kg, 05/26/22 7:52:00EDT, Dry Weight Start Date: 12/07/22 Status: Ordered amlodipine-benazepril 5 mg-10 mg oral capsule 1 capsule, By Mouth, Daily, TO. REPLACE BEFORE PRESCRIPTION AMLODIPINE, # 90 capsule, 0 Refills, Maintenance, 04/05/23 10:10:00 EST, [facility] #[id number], 90, TAKE 1 CAPSULE BY MOUTH DAILY [...] tablet, 3 Refills, Maintenance, 01/26/23 14:00:00 EST, [facility] #[id number], 165, cm, 11/15/23 13:31:00 EST, Height, 88.2, kg, 05/26/22 7:52:00 EDT, Dry Weight Start Date: 01/26/23 Stop Date: 01/21/24 Status: Ordered clonazePAM 1 mg oral tablet 1 tablet = 1 mg, By Mouth, 3 times a day, To use sparingly; to fill on/after 04/03/2023, # 90 tablet, 1 Refills, Maintenance, 03/29/23 12:46:00 EST, Tablet, [email or web address] #[id number], Partial fill upon patient request if the [...] each, 11 Refills, Maintenance, 09/25/21 11:17:00 EDT, [place], [facility] #69247, 1 sprays Nares, Both 2 times a day,x30 days, 165, cm, 09/25/21 11:04:00 EDT, Height, 96, kg, 07/13/21 10:52:00 EDT, Dry... Start Date: 09/25/21 Stop Date: 09/20/22 Status: Ordered fluconazole 150 mg oral tablet 1 tablet = 150 mg, By Mouth, Once, Repeat dose if still having symptoms in 72 hours, # 2 tablet, 1 Refills, Soft Stop, 04/27/23 14:34:00 EST, Tablet, [facility] #[id number], Partial fill upon patient request if the prescription is for a schedule... Start Date: 04/27/23 Status: Ordered fluticasone 250 mcg/inh inhalation powder 1 puffs, Inhalation, 2 times a day, dispense brand as required by insurance, # 120 each, 11 Refills, Maintenance, 04/29/23 9:44:00 EST, Powder, [facility] #[id number], Partial fill upon patient request if the [...] capsule, 4 Refills, Maintenance, 01/26/23 14:02:00 EST, [facility] #[id number], 165, cm, 01/26/23 13:31:00 EST, Height, 88.2, [...] 01/26/23 14:02:00 EST, Route to Pharmacy Electronically, [facility] #[id number], 165, cm, 01/26/23 13:31:00 EST, Height, 88.2, [...] Care Nurse Name: Lisseth Nassar NP Position: [facility] PCO Associate Professional Member Role: PCP Address: Address: [address] [place] [address]- Name: Edenilson Puckett MD Position: [facility] GUEST ASSOCIATE MD Member Role: Lifetime GUEST ASSOCIATE Physician Address: Address: [address] [place] [address]- Name: Jovana Park RN Position: [facility] SN RN Member Role: Primary Care Nurse Name: Chidi Clark DO Position: [facility] Renal MD Member Role: Lifetime Consulting Physician Address: Address: [address] [place], [place] [address] [place] [address]- Name: Mireya Torres RN Position: S RN Member Role: Primary Care Nurse Name: Starr Harper RN Position: [facility] SN RN Member Role: Primary Care Nurse Name: Klely Maddox RN Position: S RN Member Role: Primary Care Nurse Care Team Related Persons Name: KAYLAH MARYA Address: [address] [place] [address] Name: MORALES HOWELL Address: home [address] [place] [address]
--- OUTSIDE RECORDS SUMMARY | 2023-09-12 11:28 | XMS_ITS | Continuity of Care Document ---
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 Start Date: 05/12/22 Status: Ordered albuterol CFC free 90 mcg/inh inhalation aerosol 2, puffs, Inhalation, 4 times a day, PRN, Dispense brand as required by insurance, # 18 Gm, [email or web address], Tot. Refills 11, Maintenance, 05/12/22 11:38:00 EST, Aerosol, Route to Pharmacy Electronically, [id number], [facility]... Start Date: 05/12/22 Status: Ordered albuterol-ipratropium 3 mg-0.5 mg/3 ml inhalation solution 1 vials, Inhalation, 4 times a day, # 180 mL, 11 Refills, Maintenance, 05/12/22 11:38:00 EST, [facility] #[id number], 15, 1 vials Inhalation 4 times a [...] tablet, 6 Refills, Maintenance, 12/07/22 16:46:00 EDT, [facility] #30739, 165, cm, 12/06/22 17:39:00 EDT, Height, 88.2, kg, 05/26/22 7:52:00EDT, Dry Weight Start Date: 12/07/22 Status: Ordered amlodipine-benazepril 5 mg-10 mg oral capsule 1 capsule, By Mouth, Daily, To replace prior prescription (amlodipine)., # 90 capsule, 11 Refills, Maintenance, 03/01/22 16:04:00 EST, Capsule, [facility] #98715, Partial fill upon patient request if the prescription is for a schedule II opi... Start Date: 03/01/22 Stop Date: 02/13/25 Status: Ordered apixaban 2.5 mg oral tablet 1 tablet = 2.5 mg, By Mouth, 2 times a day, # 60 tablet, 0 Refills, Maintenance, 05/28/22 8:20:00 EDT, Tablet, [facility], Partial fill upon patient request [...] tablet, 11 Refills, Maintenance, 09/25/21 11:17:00 EDT, [facility] #[id number], 165, cm, 09/25/21 11:04:00 EDT, Height, 96, [...] each, 11 Refills, Maintenance, 09/25/21 11:17:00 EDT, [place], [facility] #18657, 1 sprays Nares, Both 2 times a day,x30 days, 165, cm, 09/25/21 11:04:00 EDT, Height, 96, kg, 07/13/21 10:52:00 EDT, Dry... Start Date: 09/25/21 Stop Date: 09/20/22 Status: Ordered Flovent HFA 220 mcg/inh inhalation aerosol 2 puffs, Inhalation, 2 times a day, # 12 Gm, 11 Refills, Maintenance, 05/19/22 13:39:00 EST, [facility] #[id number], Partial fill upon patient request if the [...] 03/13/23 15:24:00 EST, 09/01/22 15:23:00 EDT, Ointment, [facility] #[id number], Partial fill upon patient request if the [...] 05/12/22 11:38:00 EST, Route to Pharmacy Electronically, [facility] #[id number], 168, cm, 05/12/2310:30:00 EST, Height, 85, kg, [...] Associate Professional Member Role: PCP Address: Address: [address] [place] [address]- Name: Lavern SPENCER, Edenilson Chen Position: [facility] GUARD MUSEUM MD Member Role: Lifetime GUARD MUSEUM Physician Address: Address: [address] [place] [address]- Name: Jovana Park RN Position: S RN Member Role: Primary Care Nurse Name: Chidi Clark DO Position: [facility] Renal MD Member Role: Lifetime Consulting Physician Address: Address: [address] [place], [place] [address] [place] [address]- Name: Mireya Torres RN Position: [facility] RN Member Role: Primary Care Nurse Name: Starr Harper RN Position: [facility] SN RN Member Role: Primary Care Nurse Name: Kelly Maddox RN Position: S RN Member Role: Primary Care Nurse Care Team Related Persons Name: MARYA ADRIAN Address: [address] [place] [address] Name: MORALES HOWELL Address: home [address] [place] [address]
--- OUTSIDE RECORDS SUMMARY | 2023-09-12 11:28 | XMS_ITS | Continuity of Care Document ---
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 Start Date: 10/19/21 Status: Ordered albuterol-ipratropium 3 mg-0.5 mg/3 ml inhalation solution 1 vials, Inhalation, 4 times a day, # 180 mL, 5 Refills, Maintenance, 07/30/19 11:02:00 EDT, [facility] #[id number], 15, INHALE CONTENTS OF 1 VIAL VIA [...] tablet, 11 Refills, Maintenance, 12/07/21 8:02:00 EDT, [facility] #27842, 165, cm, 10/27/21 1:44:00 EDT, Height, 90.9, kg, 10/27/21 1:44:00 EDT, Dry Weight Start Date: 12/07/21 Status: Ordered amlodipine-benazepril 5 mg-10 mg oral capsule 1 capsule, By Mouth, Daily, To replace prior prescription (amlodipine)., # 90 capsule, 11 Refills, Maintenance, 03/01/22 16:04:00 EST, Capsule, [facility] #09326, Partial fill upon patient request if the prescription is for a schedule II opi... Start Date: 03/01/22 Stop Date: 02/13/25 Status: Ordered aspirin 81 mg oral delayed release tablet 81 mg, 1, tablet, By Mouth, Daily, # 30 tablet, Refills 5, Tot. Refills 5, Maintenance, 11/02/19 11:39:00 EDT, Route to Pharmacy Electronically, [facility] #[id number], 167.64, cm, 11/02/19 10:58:00 EDT, Height, 100.4, kg, 08/03/18 10:14:00 EDT,... Start Date: 11/02/19 Status: Ordered baclofen 10 mg oral tablet 10 mg, 1, tablet, By Mouth, Daily at bedtime, # 30 tablet, Refills 5, Tot. Refills 5, Maintenance, 02/09/22 13:45:00 EST, Route to Pharmacy Electronically, [facility] #[id number], Partial fill upon patient request if the [...] tablet, 11 Refills, Maintenance, 09/25/21 11:17:00 EDT, [facility] #[id number], 165, cm, 09/25/21 11:04:00 EDT, Height, 96, [...] each, 11 Refills, Maintenance, 09/25/21 11:17:00 EDT, [place], [facility] #[id number], 1 sprays Nares, Both 2 times a day,x30 days, 165, cm, 09/25/21 11:04:00 EDT, Height, 96, kg, 07/13/21 10:52:00 EDT, Dry... Start Date: 09/25/21 Stop Date: 09/20/22 Status: Ordered fluconazole 150 mg oral tablet 1 tablet = 150 mg, By Mouth, Once, Repeat dose if still having symptoms in 72 hours, # 2 tablet, 0 Refills, Soft Stop, 02/09/22 13:43:00 EST, Tablet, [facility] #[id number], Partial fill upon patient request if the [...] Acute 03/13/22 13:51:00 EST, 12/14/2212:50:00 EDT, Ointment, [facility] #[id number], Partial fill upon patient request if the [...] 11 Refills, Maintenance, 03/02/19 10:19:00 EST, Capsule, [facility] #[id number], 1 capsule By Mouth Daily, 167.64, cm, [...] 30 tablet, 0 Refills,Maintenance, 10/18/21 16:41:00 EDT, [facility] Start Date: 10/18/21 Status: Ordered Prevacid [...] 09/25/21 11:17:00 EDT, Route to Pharmacy Electronically, [facility] #[id number], 165, cm, 09/25/2210:04:00 EDT, Height, 96, kg, 07/13/21 10:52:00 EDT... Start Date: 09/25/21 Status: Ordered tiZANidine 2 mg oral tablet 2 mg, 1, tablet, By Mouth, Every 8 hours, PRN, # 90 tablet, Refills 3, Tot. Refills 3, Maintenance,as needed for muscle spasm, 06/18/21 10:33:00 EDT, Route to Pharmacy Electronically, [facility] #[id number], Partial fill upon patient request, 16... Start [...] Team Personnel Name: Lisseth Nassar NP Position: [facility] PCO Associate Professional Member Role: PCP Address: Address: [address] [place] [address]- [place] Name: Lavern SPENCER, Edenilson Chen Position: [facility] NEW ACCOUNTS CLERK MD Member Role: Lifetime NEW ACCOUNTS CLERK Physician Address: Address: [address] [place], [place] [address] [place] [address]- Name: Chidi Clark DO Position: [facility] Renal MD Member Role: Lifetime Consulting Physician Address: Address: [address] [place] [address] [address] [facility] [place] [address]- Name: Starr Harper RN Position: [facility] RN Member Role: Primary Care Nurse Care Team Related Persons Name: MARYA ADRIAN Address: home [address] [place] [id number]
--- OUTSIDE RECORDS SUMMARY | 2023-09-12 11:29 | XMS_ITS | Continuity of Care Document ---
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 Start Date: 01/26/23 Status: Ordered albuterol CFC free 90 mcg/inh inhalation aerosol 2, puffs, Inhalation, 4 times a day, PRN, Dispense brand as required by insurance, # 1 each, Refills 11, Tot. Refills 11, Maintenance, 01/26/23 14:00:00 EST, Aerosol, Route to Pharmacy Electronically, [id number], [facility]. Start Date: 01/26/23 Status: Ordered albuterol-ipratropium 3 mg-0.5 mg/3 ml inhalation solution 1 vials, Inhalation, 4 times a day, # 180 mL, 11 Refills, Maintenance, 01/27/23 9:25:00 EST, [facility] #[id number], 15, 1 vials Inhalation 4 times a [...] tablet, 6 Refills, Maintenance, 12/07/22 16:46:00 EDT, [facility] #[id number], 165, cm, 12/06/22 17:39:00 EDT, Height, 88.2, kg, 05/26/22 7:52:00EDT, Dry Weight Start Date: 12/07/22 Status: Ordered amlodipine-benazepril 5 mg-10 mg oral capsule 1 capsule, By Mouth, Daily, To replace prior prescription (amlodipine)., # 90 capsule, 11 Refills, Maintenance, 03/01/22 16:04:00 EST, Capsule, [facility] #[id number], Partial fill upon patient request if the [...] tablet, 3 Refills, Maintenance, 01/26/23 14:00:00 EST, [facility] #[id number], 165, cm, 01/26/23 13:31:00 EST, Height, 88.2, [...] Weight Start Date: 05/20/22 Status: Ordered disposable adnrea pads disposable andrea pads, See Instructions, # [...] each, 11 Refills, Maintenance, 09/25/21 11:17:00 EDT, [place], [facility] #[id number], 1 sprays Nares, Both 2 times a day,x30 days, 165, cm, 09/25/21 11:04:00 EDT, Height, 96, kg, 07/13/21 10:52:00 EDT, Dry... Start Date: 09/25/21 Stop Date: 09/20/22 Status: Ordered fluconazole 150 mg oral tablet 1 tablet = 150 mg, By Mouth, Once, Repeat dose if still having symptoms in 72 hours, # 2 tablet, 1 Refills, Soft Stop, 01/26/23 14:19:00 EST, Tablet, [facility] #[id number], Partial fill upon patient request if the [...] 11 Refills, Maintenance, 01/26/23 14:04:00 EST, Aerosol, [facility] #[id number], Partial fill upon patient request if the prescription is for a s... Start Date: 01/26/23 Status: Ordered mupirocin 2% topical ointment 1 application, Topically, 3 times a day, # 30 Gm, 2 Refills, Acute 03/13/23 15:24:00 EST, 09/01/22 15:23:00 EDT, Ointment, [facility] #[id number], Partial fill upon patient request if the [...] capsule, 4 Refills, Maintenance, 01/26/23 14:02:00 EST, [facility] #[id number], 165, cm, 01/26/23 13:31:00 EST, Height, 88.2, [...] 01/26/23 14:02:00 EST, Route to Pharmacy Electronically, [facility] #[id number], 165, cm, 01/26/23 13:31:00 EST, Height, 88.2, [...] Care team information Care Team Personnel Name: Tirstin Hunt RN Position: [facility] RN Member Role: Primary Care Nurse Name: Lisseth Nassar NP Position: [facility] PCO Associate Professional Member Role: PCP Address: Address: [address] [place] [address]- Name: Edenilson Puckett MD Position: [facility] CARPENTER MINE MD Member Role: Lifetime CARPENTER MINE Physician Address: Address: [address] [place], [place] [address] [place] [address]- Name: Jovana Park RN Position: S RN Member Role: Primary Care Nurse Name: Chidi Clark DO Position: [facility] Renal MD Member Role: Lifetime Consulting Physician Address: Address: [address] [place], [place] [address]E [facility] [place] [address]- Name: Mireya Torres RN Position: S RN Member Role: Primary Care Nurse Name: Starr Harper RN Position: [facility] SN RN Member Role: Primary Care Nurse Name: Kelly Maddox RN Position: S RN Member Role: Primary Care Nurse Care Team Related Persons Name: MARYA ADRIAN Address: home [address] [place] [address] Name: MORALES HOWELL Address: home [address] [place] [address]
--- OUTSIDE RECORDS SUMMARY | 2023-09-12 11:29 | XMS_ITS | Continuity of Care Document ---
Author Organization [facility] Address [address] [place] [address]- Care Team Providers Care Motor Racer Name Role Phone Cesario VALDEZ, Lisseth Hancock Primary Care Physician Encounter [facility] [place] Date(s): 08/10/19 - 09/19/[address] [address]- [facility] Attending Physician: Lyle Zhang MD Admitting Physician: Lyle Zhang MD Referring Physician: Lyle Zhang MD Allergies, Adverse Reactions, Alerts Substance Reaction Severity Status sulfADIAZINE rash Active morphine rash & swelling Active sertraline 1 QT wave change Active sulfa drugs rash Active Bactrim rash Active NSAIDs 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 Active 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 Refills 11, Maintenance, 11/24/17 13:49:05 EDT, Aerosol, Route to Pharmacy Electronically, [id number], [facility], Compound Start Date: 11/24/17 Status: Ordered albuterol-ipratropium 3 mg-0.5 mg/3 ml inhalation solution 1 vials, Inhalation, 4 times a day, # 180 mL, 5 Refills, Maintenance, 07/30/19 11:02:00 EDT, [facility] #[id number], 15, INHALE CONTENTS OF 1 VIAL VIA NEBULIZER FOUR TIMES DAILY, 167.64, cm, 04/24/19 16:16:00 EST, Height, 100.4, kg, 08/03/18 10:1... Start Date: 07/30/19 Status: Ordered amLODIPine 10 mg oral tablet 1 tablet, By Mouth, Daily, # 30 tablet, 2 Refills, Maintenance, 06/15/19 9:43:00 EDT, [facility] #01698, 167.64, cm, 04/24/19 16:16:00 EST, Height, 100.4, kg, 08/03/18 10:14:00 EDT, Dry Weight Start Date: 06/15/19 Status: Ordered baclofen 10 mg oral tablet 1, tablet, By Mouth, 3 times a day, # 60 tablet, Refills 2, Tot. Refills 2, Maintenance, 06/14/19 9:10:00 EDT, Route to Pharmacy Electronically, [facility] #[id number], 167.64, cm, 04/24/19 16:16:00 EST, Height, 100.4, [...] 5 Refills, Maintenance, 04/16/19 13:06:00 EST, Tablet, [facility] #[id number], 167.64, cm, 03/02/19 10:23:00 EST, Height, 100.4, [...] DAILY, # 44 mL, 0 Refills, Maintenance, [facility] #49351, 29, SPRAY TWICE IN EACH NOSTRIL FOUR [...] each, 5 Refills, Maintenance, 06/05/18 19:53:47 EDT, [place], 1 sprays Nares, Both 2 times a [...] 11 Refills, Maintenance, 03/02/19 10:19:00 EST, Capsule, [facility] #95338, 1 capsule By Mouth Daily, 167.64, cm, [...] 4 HOURS NEEDED FOR NAUSEA OR VOMITING, [facility] #10407 Start Date: 12/05/18 Status: Ordered raised toilet [...] Maintenance, 06/02/17 13:39:59, Route to Pharmacy Electronically, [id number], [facility] [address] Start Date: 06/02/17 Status: Ordered Transfer Bench [...]
--- OUTSIDE RECORDS SUMMARY | 2023-09-12 11:29 | XMS_ITS | Continuity of Care Document ---
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 Refills 11, Maintenance, 11/24/17 13:49:05 EDT, Aerosol, Route to Pharmacy Electronically, [id number], [facility] [address], Compound Start Date: 11/24/17 Status: Ordered albuterol-ipratropium 3 mg-0.5 mg/3 ml inhalation solution 1 vials, Inhalation, 4 times a day, # 180 mL, 5 Refills, Maintenance, 07/30/19 11:02:00 EDT, [facility] #58963, 15, INHALE CONTENTS OF 1 VIAL VIA NEBULIZER FOUR TIMES DAILY, 167.64, cm, 04/24/19 16:16:00 EST, Height, 100.4, kg, 08/03/18 10:1... Start Date: 07/30/19 Status: Ordered amLODIPine 10 mg oral tablet 1 tablet, By Mouth, Daily, # 30 tablet, 5 Refills, Maintenance, 05/06/20 12:30:00 EST, [facility] #68951, 167.64, cm, 03/25/20 14:59:00 EST, Height, 100.4, kg, 08/03/18 10:14:00 EDT, Dry Weight Start Date: 05/06/20 Status: Ordered aspirin 81 mg oral delayed release tablet 81 mg, 1, tablet, By Mouth, Daily, # 30 tablet, Refills 5, Tot. Refills 5, Maintenance, 11/02/19 11:39:00 EDT, Route to Pharmacy Electronically, [facility] #39577, 167.64, cm, 11/02/19 10:58:00 EDT, Height, 100.4, kg, 08/03/18 10:14:00 EDT,... Start Date: 11/02/19 Status: Ordered baclofen 10 mg oral tablet 1, tablet, By Mouth, 3 times a day, # 60 tablet, Refills 0, Tot. Refills 0, Maintenance, 02/25/20 13:59:00 EST, Route to Pharmacy Electronically, [facility] #82542, 167.64, cm, 11/12/19 15:34:00 EDT, Height, 100.4, [...] tablet, 11 Refills, Maintenance, 01/11/20 10:43:00 EDT, [facility] #74523, 167.64, cm, 11/12/19 15:34:00 EDT, Height, 100.4, [...] DAILY, # 44 mL, 0 Refills, Maintenance, [facility] #46681, 29, SPRAY TWICE IN EACH NOSTRIL FOUR [...] each, 5 Refills, Maintenance, 06/05/18 19:53:47 EDT, [place], 1 sprays Nares, Both 2 times a [...] 11 Refills, Maintenance, 03/02/19 10:19:00 EST, Capsule, [facility] #05253, 1 capsule By Mouth Daily, 167.64, cm, [...] 4 HOURS NEEDED FOR NAUSEA OR VOMITING, [facility] #71980 Start Date: 12/05/18 Status: Ordered raised toilet [...] Maintenance, 06/02/17 13:39:59, Route to Pharmacy Electronically, [id number], [facility] [address] Start Date: 06/02/17 Status: Ordered tiZANidine 2 mg oral tablet 2 mg, 1, tablet, By Mouth, Every 8 hours, PRN, # 90 tablet, Refills 3, Tot. Refills 3, Maintenance,as needed for muscle spasm, 02/08/20 9:24:00 EST, Route to Pharmacy Electronically, [facility] #15242, Partial fill upon patient request, 167... Start [...]
--- OUTSIDE RECORDS SUMMARY | 2023-09-12 11:29 | XMS_ITS | Continuity of Care Document ---
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 Start Date: 01/26/23 Status: Ordered albuterol CFC free 90 mcg/inh inhalation aerosol 2, puffs, Inhalation, 4 times a day, PRN, Dispense brand as required by insurance, # 1 each, Refills 11, Tot. Refills 11, Maintenance, 01/26/23 14:00:00 EST, Aerosol, Route to Pharmacy Electronically, [id number], [facility]. Start Date: 01/26/23 Status: Ordered albuterol-ipratropium 3 mg-0.5 mg/3 ml inhalation solution 1 vials, Inhalation, 4 times a day, # 180 mL, 11 Refills, Maintenance, 01/27/23 9:25:00 EST, [facility] #39850, 15, 1 vials Inhalation 4 times a [...] tablet, 6 Refills, Maintenance, 12/07/22 16:46:00 EDT, [facility] #27118, 165, cm, 12/06/22 17:39:00 EDT, Height, 88.2, kg, 05/26/22 7:52:00EDT, Dry Weight Start Date: 12/07/22 Status: Ordered amlodipine-benazepril 5 mg-10 mg oral capsule 1 capsule, By Mouth, Daily, To replace prior prescription (amlodipine)., # 90 capsule, 11 Refills, Maintenance, 03/01/22 16:04:00 EST, Capsule, [facility] #86207, Partial fill upon patient request if the [...] tablet, 3 Refills, Maintenance, 01/26/23 14:00:00 EST, [facility] #95049, 165, cm, 01/26/23 13:31:00 EST, Height, 88.2, [...] each, 11 Refills, Maintenance, 09/25/21 11:17:00 EDT, [place], [facility] #77493, 1 sprays Nares, Both 2 times a day,x30 days, 165, cm, 09/25/21 11:04:00 EDT, Height, 96, kg, 07/13/21 10:52:00 EDT, Dry... Start Date: 09/25/21 Stop Date: 09/20/22 Status: Ordered fluconazole 150 mg oral tablet 1 tablet = 150 mg, By Mouth, Once, Repeat dose if still having symptoms in 72 hours, # 2 tablet, 1 Refills, Soft Stop, 01/26/23 14:19:00 EST, Tablet, [facility] #87080, Partial fill upon patient request if the [...] 11 Refills, Maintenance, 01/26/23 14:04:00 EST, Aerosol, [facility] #38635, Partial fill upon patient request if the prescription is for a s... Start Date: 01/26/23 Status: Ordered Nebulizer/Compressor See Instructions, # 1 [...] capsule, 4 Refills, Maintenance, 01/26/23 14:02:00 EST, [facility] #[id number], 165, cm, 01/26/23 13:31:00 EST, Height, 88.2, [...] 01/26/23 14:02:00 EST, Route to Pharmacy Electronically, [facility] #[id number], 165, cm, 01/26/23 13:31:00 EST, Height, 88.2, [...] Care Nurse Name: Lisseth Nassar NP Position: [facility] PCO Associate Professional Member Role: PCP Address: Address: [address] [place] [address]- Name: Edenilson Puckett MD Position: [facility] TIPPLE MECHANIC MD Member Role: Lifetime TIPPLE MECHANIC Physician Address: Address: [address] [place] [address]- Name: Jovana Park RN Position: [facility] SN RN Member Role: Primary Care Nurse Name: Chidi Clark DO Position: [facility] Renal MD Member Role: Lifetime Consulting Physician Address: Address: [address] [place], [place] [address]E [facility] [place] [address]- Name: Mireya Torres RN Position: S RN Member Role: Primary Care Nurse Name: Starr Harper RN Position: [facility] SN RN Member Role: Primary Care Nurse Name: Kelly Maddox RN Position: S RN Member Role: Primary Care Nurse Care Team Related Persons Name: MARYA ADRIAN Address: [place] [address] [place] [address] Name: MORALES HOWELL Address: home [address] [place] [address]
--- OUTSIDE RECORDS SUMMARY | 2023-09-12 11:29 | XMS_ITS | Continuity of Care Document ---
Author Organization [facility] Address [address] [place] [address]- Care Team Providers Care Booking Officer Name Role Phone Cesario VALDEZ, Lisseth Hancock Primary Care Physician Encounter [facility] Date(s): 03/31/22 - 05/08/[address] [address]- Attending Physician: Not on Staff, Attending MD Allergies, Adverse Reactions, Alerts Substance Reaction Severity Status sulfADIAZINE rash Active sertraline 1 QT wave change Active fentanyl topical passed out Active sulfa drugs rash Active Haldol Agitation Active Bactrim rash Active NSAIDs 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 Active 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 Start Date: 10/19/21 Status: Ordered albuterol-ipratropium 3 mg-0.5 mg/3 ml inhalation solution 1 vials, Inhalation, 4 times a day, # 180 mL, 5 Refills, Maintenance, 07/30/19 11:02:00 EDT, [facility] #99344, 15, INHALE CONTENTS OF 1 VIAL VIA [...] tablet, 11 Refills, Maintenance, 12/07/21 8:02:00 EDT, [facility] #59403, 165, cm, 10/27/21 1:44:00 EDT, Height, 90.9, kg, 10/27/21 1:44:00 EDT, Dry Weight Start Date: 12/07/21 Status: Ordered amlodipine-benazepril 5 mg-10 mg oral capsule 1 capsule, By Mouth, Daily, To replace prior prescription (amlodipine)., # 90 capsule, 11 Refills, Maintenance, 03/01/22 16:04:00 EST, Capsule, [facility] #64996, Partial fill upon patient request if the prescription is for a schedule II opi... Start Date: 03/01/22 Stop Date: 02/13/25 Status: Ordered aspirin 81 mg oral delayed release tablet 81 mg, 1, tablet, By Mouth, Daily, # 30 tablet, Refills 5, Tot. Refills 5, Maintenance, 11/02/19 11:39:00 EDT, Route to Pharmacy Electronically, [facility] #[id number], 167.64, cm, 11/02/19 10:58:00 EDT, Height, 100.4, kg, 08/03/18 10:14:00 EDT,... Start Date: 11/02/19 Status: Ordered baclofen 10 mg oral tablet 10 mg, 1, tablet, By Mouth, Daily at bedtime, # 30 tablet, Refills 5, Tot. Refills 5, Maintenance, 02/09/22 13:45:00 EST, Route to Pharmacy Electronically, [facility] #[id number], Partial fill upon patient request if the [...] tablet, 11 Refills, Maintenance, 09/25/21 11:17:00 EDT, [facility] #26766, 165, cm, 09/25/21 11:04:00 EDT, Height, 96, [...] each, 11 Refills, Maintenance, 09/25/21 11:17:00 EDT, [place], [facility] #91785, 1 sprays Nares, Both 2 times a day,x30 days, 165, cm, 09/25/21 11:04:00 EDT, Height, 96, kg, 07/13/21 10:52:00 EDT, Dry... Start Date: 09/25/21 Stop Date: 09/20/22 Status: Ordered fluconazole 150 mg oral tablet 1 tablet = 150 mg, By Mouth, Once, Repeat dose if still having symptoms in 72 hours, # 2 tablet, 0 Refills, Soft Stop, 02/09/22 13:43:00 EST, Tablet, [facility] #76063, Partial fill upon patient request if the prescription is for a schedule... Start Date: 02/09/22 Status: Ordered fluconazole 150 mg oral tablet 1 tablet = 150 mg, By Mouth, Once, repeat dose if still having symptoms in 72 hours, # 2 tablet, 2 Refills, Soft Stop, 04/14/22 10:57:00 EST, Tablet, [facility] #22697, Partial fill upon patient request if the [...] EDT, Supply Start Date: 11/01/19 Status: Ordered multivitamin Multiple Vitamins oral capsule 1 capsule, By Mouth, Daily, # 30 capsule, 11 Refills, Maintenance, 03/02/19 10:19:00 EST, Capsule, [facility] #10641, 1 capsule By Mouth Daily, 167.64, cm, [...] Date: 04/14/22 Stop Date: 05/14/22 Status: Ordered Paxlovid 150 mg-100 mg oral tablet See Instructions, 300mg nirmatrelvir (two 150mg tablets) with 100mg ritonavir (one tablet). All 3 tablets taken together twice daily By Mouth for 5 days, with or without food, # 30 tablet, 0 Refills,Maintenance, 10/18/21 16:41:00 EDT, [facility]... Start Date: 10/18/21 Status: Ordered Prevacid [...] EST, [facility] Start Date: 03/20/18 Status: Ordered Scopolamine 1 film, Topically, Every 72 hours, 0 Refills, Maintenance, 05/03/22 14:42:00 EST, Partial fill uponpatient request if the prescription is for a schedule II opioid drug. Start Date: 05/03/22 Status: Ordered Shower Bar See Instructions, # [...] 09/25/21 11:17:00 EDT, Route to Pharmacy Electronically, [facility] #77510, 165, cm, 09/25/2210:04:00 EDT, Height, 96, kg, 07/13/21 10:52:00 EDT... Start Date: 09/25/21 Status: Ordered tiZANidine 2 mg oral tablet 2 mg, 1, tablet, By Mouth, Every 8 hours, PRN, # 90 tablet, Refills 3, Tot. Refills 3, Maintenance,as needed for muscle spasm, 06/18/21 10:33:00 EDT, Route to Pharmacy Electronically, [facility] #[id number], Partial fill upon patient request, 16... Start [...] sleep apnea Confirmed Active Hypertension 1 Confirmed 1998 Active Hypokalemia Confirmed Active Low back pain [...] Team Personnel Name: Lisseth Nassar NP Position: [facility] PCO Associate Professional Member Role: PCP Address: Address: [address] [place] [id number]- [place] Name: Edenilson Puckett MD Position: [facility] MANAGER CLINICAL APPLICATIONS MD Member Role: Lifetime MANAGER CLINICAL APPLICATIONS Physician Address: Address: [address] [place] [address]- [place] Name: Chidi Clark DO Position: [facility] Renal MD Member Role: Lifetime Consulting Physician Address: Address: [address] [place] [address] [address] [facility] [place] [address]- [place] Name: Starr Harper RN Position: [facility] RN Member Role: Primary Care Nurse Care Team Related Persons Name: MARYA ADRIAN Address: home [address] [place] [address] Name: MORALES HOWELL Address: home [address] [place] [address]
--- OUTSIDE RECORDS SUMMARY | 2023-09-12 11:29 | XMS_ITS | Continuity of Care Document ---
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 Immunizations Given and Recorded Vaccine Date Status [...] 5 Refills, Maintenance, 05/07/19 10:46:00 EST, Solution, [facility] #[id number], 167.64, cm, 04/24/19 16:16:00 EST, Height, 100.4, kg, 08/03/18 10:14:00 EDT, Dry Weight Start Date: 05/07/19 Status: Ordered albuterol-ipratropium 3 mg-0.5 mg/3 ml inhalation solution 1 vials, Inhalation, 4 times a day, # 180 mL, 5 Refills, Maintenance, 07/30/19 11:02:00 EDT, [facility] #75056, 15, INHALE CONTENTS OF 1 VIAL VIA [...] 11 Refills, Maintenance, 04/23/21 14:51:00 EST, Capsule, [facility] #[id number], Partial fill upon patient request if the prescription is for a schedule II opi... Start Date: 04/23/21 Status: Ordered aspirin 81 mg oral delayed release tablet 81 mg, 1, tablet, By Mouth, Daily, # 30 tablet, Refills 5, Tot. Refills 5, Maintenance, 11/02/19 11:39:00 EDT, Route to Pharmacy Electronically, [facility] #[id number], 167.64, cm, 11/02/19 10:58:00 EDT, Height, 100.4, [...] tablet, 11 Refills, Maintenance, 01/11/20 10:43:00 EDT, [facility] #[id number], 167.64, cm, 11/12/19 15:34:00 EDT, Height, 100.4, [...] each, 5 Refills, Maintenance, 06/05/18 19:53:47 EDT, [place], 1 sprays Nares, Both 2 times a [...] Acute 03/13/22 14:45:00 EST, 03/20/2213:45:00 EST, Ointment, [facility] #[id number], Partial fill upon patient request if the [...] 11 Refills, Maintenance, 03/02/19 10:19:00 EST, Capsule, [facility] #45265, 1 capsule By Mouth Daily, 167.64, cm, [...] back pain; may fill less; fill on/after 07/14/2021, # 130 tablet, 0 Refills, Acute 03/13/22 14:53:00 EST, 07/14/21 14:52:00 EDT,... Start Date: 07/14/21 Stop Date: 03/13/22 Status: Ordered Prevacid 30 [...] Maintenance, 06/02/17 13:39:59, Route to Pharmacy Electronically, [id number], [facility] [address] Start Date: 06/02/17 Status: Ordered tiZANidine 2 mg oral tablet 2 mg, 1, tablet, By Mouth, Every 8 hours, PRN, # 90 tablet, Refills 3, Tot. Refills 3, Maintenance,as needed for muscle spasm, 06/18/21 10:33:00 EDT, Route to Pharmacy Electronically, [facility] #[id number], Partial fill upon patient request, 16... Start [...]
--- OUTSIDE RECORDS SUMMARY | 2023-09-12 11:29 | XMS_ITS | Continuity of Care Document ---
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 Start Date: 10/19/21 Status: Ordered albuterol-ipratropium 3 mg-0.5 mg/3 ml inhalation solution 1 vials, Inhalation, 4 times a day, # 180 mL, 5 Refills, Maintenance, 07/30/19 11:02:00 EDT, [facility] #[id number], 15, INHALE CONTENTS OF 1 VIAL VIA [...] tablet, 11 Refills, Maintenance, 12/07/21 8:02:00 EDT, [facility] #42853, 165, cm, 10/27/21 1:44:00 EDT, Height, 90.9, kg, 10/27/21 1:44:00 EDT, Dry Weight Start Date: 12/07/21 Status: Ordered amlodipine-benazepril 5 mg-10 mg oral capsule 1 capsule, By Mouth, Daily, To replace prior prescription (amlodipine)., # 90 capsule, 11 Refills, Maintenance, 03/01/22 16:04:00 EST, Capsule, [facility] #86472, Partial fill upon patient request if the prescription is for a schedule II opi... Start Date: 03/01/22 Stop Date: 02/13/25 Status: Ordered aspirin 81 mg oral delayed release tablet 81 mg, 1, tablet, By Mouth, Daily, # 30 tablet, Refills 5, Tot. Refills 5, Maintenance, 11/02/19 11:39:00 EDT, Route to Pharmacy Electronically, [facility] #[id number], 167.64, cm, 11/02/19 10:58:00 EDT, Height, 100.4, kg, 08/03/18 10:14:00 EDT,... Start Date: 11/02/19 Status: Ordered baclofen 10 mg oral tablet 10 mg, 1, tablet, By Mouth, Daily at bedtime, # 30 tablet, Refills 5, Tot. Refills 5, Maintenance, 02/09/22 13:45:00 EST, Route to Pharmacy Electronically, [facility] #[id number], Partial fill upon patient request if the [...] tablet, 11 Refills, Maintenance, 09/25/21 11:17:00 EDT, [facility] #[id number], 165, cm, 09/25/21 11:04:00 EDT, Height, 96, kg, 07/13/21 10:52:00 EDT, Dry Weight Start Date: 09/25/21 Status: Ordered clonazePAM 0.5 mg oral tablet 1 tablet = 0.5 mg, By Mouth, 3 times a day, PRN Anxiety, to be filled on or after 03/07/17 use sparingly; for pcp=julianne Nassar checked, # 90 tablet, 0 Refills, Maintenance, 12/20/17 12:54:41 Start Date: 03/02/17 Stop Date: 04/01/17 [...] each, 11 Refills, Maintenance, 09/25/21 11:17:00 EDT, [place], [facility] #27606, 1 sprays Nares, Both 2 times a day,x30 days, 165, cm, 09/25/21 11:04:00 EDT, Height, 96, kg, 07/13/21 10:52:00 EDT, Dry... Start Date: 09/25/21 Stop Date: 09/20/22 Status: Ordered fluconazole 150 mg oral tablet 1 tablet = 150 mg, By Mouth, Once, Repeat dose if still having symptoms in 72 hours, # 2 tablet, 0 Refills, Soft Stop, 02/09/22 13:43:00 EST, Tablet, [facility] #[id number], Partial fill upon patient request if the prescription is for a schedule... Start Date: 02/09/22 Status: Ordered fluconazole 150 mg oral tablet 1 tablet = 150 mg, By Mouth, Once, repeat dose if still having symptoms in 72 hours, # 2 tablet, 2 Refills, Soft Stop, 04/14/22 10:57:00 EST, Tablet, [facility] #26380, Partial fill upon patient request if the [...] 11 Refills, Maintenance, 03/02/19 10:19:00 EST, Capsule, [facility] #70754, 1 capsule By Mouth Daily, 167.64, cm, [...] 0 Refills, Maintenance, 04/14/22 12:38:00 EST, Tablet, [facility]... Start Date: 04/14/22 Stop Date: 05/14/22 Status: [...] 30 tablet, 0 Refills,Maintenance, 10/18/21 16:41:00 EDT, [facility]... Start Date: 10/18/21 Status: Ordered Prevacid 30 [...] 09/25/21 11:17:00 EDT, Route to Pharmacy Electronically, [facility] #59789, 165, cm, 09/25/2210:04:00 EDT, Height, 96, kg, 07/13/21 10:52:00 EDT... Start Date: 09/25/21 Status: Ordered tiZANidine 2 mg oral tablet 2 mg, 1, tablet, By Mouth, Every 8 hours, PRN, # 90 tablet, Refills 3, Tot. Refills 3, Maintenance,as needed for muscle spasm, 06/18/21 10:33:00 EDT, Route to Pharmacy Electronically, [facility] #[id number], Partial fill upon patient request, 16... Start [...] Team Personnel Name: Lisseth Nassar NP Position: [facility] PCO Associate Professional Member Role: PCP Address: Address: [address] [place] [address]- [place] Name: Edenilson Puckett MD Position: [facility] DRUG DEPARTMENT WORKER MD Member Role: [facility] [employer] DEPARTMENT WORKER Physician Address: Address: [address] [place], [place] [address] [place] [address]- [place] Name: Cihdi Clark DO Position: [facility] Renal MD Member Role: [facility] Consulting Physician Address: Address: [address] [place] [address] [address] [facility] [place] [place] [address]- Name: Starr Harper RN Position: [facility] RN Member Role: Primary Care Nurse Care Team Related Persons Name: MARYA ADRIAN Address: [address] [address]
--- OUTSIDE RECORDS SUMMARY | 2023-09-12 11:29 | XMS_ITS | Continuity of Care Document ---
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 Refills 11, Maintenance, 11/24/17 13:49:05 EDT, Aerosol, Route to Pharmacy Electronically, [id number], [facility] [address], Compound Start Date: 11/24/17 Status: Ordered albuterol-ipratropium 3 mg-0.5 mg/3 ml inhalation solution 1 vials, Inhalation, 4 times a day, # 180 mL, 5 Refills, Maintenance, 07/30/19 11:02:00 EDT, [facility] #64247, 15, INHALE CONTENTS OF 1 VIAL VIA NEBULIZER FOUR TIMES DAILY, 167.64, cm, 04/24/19 16:16:00 EST, Height, 100.4, kg, 08/03/18 10:1... Start Date: 07/30/19 Status: Ordered amLODIPine 10 mg oral tablet 1 tablet, By Mouth, Daily, # 30 tablet, 6 Refills, Maintenance, 10/04/19 12:22:00 EDT, [facility] #[id number], 167.64, cm, 04/24/19 16:16:00 EST, Height, 100.4, kg, 08/03/18 10:14:00 EDT, Dry Weight Start Date: 10/04/19 Status: Ordered aspirin 81 mg oral delayed release tablet 81 mg, 1, tablet, By Mouth, Daily, # 30 tablet, Refills 5, Tot. Refills 5, Maintenance, 11/02/19 11:39:00 EDT, Route to Pharmacy Electronically, [facility] #58524, 167.64, cm, 11/02/19 10:58:00 EDT, Height, 100.4, kg, 08/03/18 10:14:00 EDT,... Start Date: 11/02/19 Status: Ordered baclofen 10 mg oral tablet 1, tablet, By Mouth, 3 times a day, # 60 tablet, Refills 0, Tot. Refills 0, Maintenance, 02/25/20 13:59:00 EST, Route to Pharmacy Electronically, [facility] #47705, 167.64, cm, 11/12/19 15:34:00 EDT, Height, 100.4, [...] tablet, 11 Refills, Maintenance, 01/11/20 10:43:00 EDT, [facility] #96245, 167.64, cm, 11/12/19 15:34:00 EDT, Height, 100.4, [...] DAILY, # 44 mL, 0 Refills, Maintenance, [facility] #67140, 29, SPRAY TWICE IN EACH NOSTRIL FOUR [...] each, 5 Refills, Maintenance, 06/05/18 19:53:47 EDT, [place], 1 sprays Nares, Both 2 times a [...] 11 Refills, Maintenance, 03/02/19 10:19:00 EST, Capsule, [facility] #58213, 1 capsule By Mouth Daily, 167.64, cm, [...] 4 HOURS NEEDED FOR NAUSEA OR VOMITING, [facility] #79061 Start Date: 12/05/18 Status: Ordered raised toilet [...] Maintenance, 06/02/17 13:39:59, Route to Pharmacy Electronically, [id number], [facility] [address] Start Date: 06/02/17 Status: Ordered tiZANidine 2 mg oral tablet 2 mg, 1, tablet, By Mouth, Every 8 hours, PRN, # 90 tablet, Refills 3, Tot. Refills 3, Maintenance,as needed for muscle spasm, 02/08/20 9:24:00 EST, Route to Pharmacy Electronically, [facility] #[id number], Partial fill upon patient request, 167... Start [...]
--- OUTSIDE RECORDS SUMMARY | 2023-09-12 11:29 | XMS_ITS | Continuity of Care Document ---
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 Refills 11, Maintenance, 11/24/17 13:49:05 EDT, Aerosol, Route to Pharmacy Electronically, [id number], [facility] [address], Compound Start Date: 11/24/17 Status: Ordered albuterol-ipratropium 3 mg-0.5 mg/3 ml inhalation solution 1 vials, Inhalation, 4 times a day, # 180 mL, 5 Refills, Maintenance, 07/30/19 11:02:00 EDT, [facility] #50576, 15, INHALE CONTENTS OF 1 VIAL VIA NEBULIZER FOUR TIMES DAILY, 167.64, cm, 04/24/19 16:16:00 EST, Height, 100.4, kg, 08/03/18 10:1... Start Date: 07/30/19 Status: Ordered amlodipine-benazepril 5 mg-10 mg oral capsule 1 capsule, By Mouth, Daily, To replace prior prescription (amlodipine)., # 30 capsule, 3 Refills, Maintenance, 03/10/21 15:34:00 EST, Capsule, [facility] #63626, Partial fill upon patient request if the prescription is for a schedule II opio... Start Date: 03/10/21 Status: Ordered aspirin 81 mg oral delayed release tablet 81 mg, 1, tablet, By Mouth, Daily, # 30 tablet, Refills 5, Tot. Refills 5, Maintenance, 11/02/19 11:39:00 EDT, Route to Pharmacy Electronically, [facility] #65118, 167.64, cm, 11/02/19 10:58:00 EDT, Height, 100.4, kg, 08/03/18 10:14:00 EDT,... Start Date: 11/02/19 Status: Ordered bacitracin topical 500 u/gm ointment 1 application, Topically, 4 times a day, # 30 Gm, 0 Refills, Maintenance, 09/02/20 15:20:00 EDT, Ointment, [facility] #93721, Partial fill upon patient request if the prescription is for a schedule II opioid drug., 1 application Topically 4... Start Date: 09/02/20 Stop Date: 09/12/20 Status: Ordered baclofen 10 mg oral tablet 1, tablet, By Mouth, 3 times a day, # 60 tablet, Refills 0, Tot. Refills 0, Maintenance, 02/25/20 13:59:00 EST, Route to Pharmacy Electronically, [facility] #67135, 167.64, cm, 11/12/19 15:34:00 EDT, Height, 100.4, [...] tablet, 11 Refills, Maintenance, 01/11/20 10:43:00 EDT, [facility] #[id number], 167.64, cm, 11/12/19 15:34:00 EDT, Height, 100.4, [...] DAILY, # 44 mL, 0 Refills, Maintenance, [facility] #[id number], 29, SPRAY TWICE IN EACH NOSTRIL FOUR [...] 07/18/20 12:54:00 EDT, Route to Pharmacy Electronically, [facility]... Start Date: 07/18/20 Stop Date: 07/13/21 Status: Ordered Flonase 50 mcg/inh nasal spray 1 sprays, Nares, Both, 2 times a day, # 1 each, 5 Refills, Maintenance, 06/05/18 19:53:47 EDT, [place], 1 sprays Nares, Both 2 times a [...] Acute 03/13/22 14:45:00 EST, 03/20/2213:45:00 EST, [facility], [id number], Partial fill upon patient request if the [...] 11 Refills, Maintenance, 03/02/19 10:19:00 EST, Capsule, [facility] #39572, 1 capsule By Mouth Daily, 167.64, cm, [...] 4 HOURS NEEDED FOR NAUSEA OR VOMITING, [facility] #20793 Start Date: 12/05/18 Status: Ordered raised toilet [...] Maintenance, 06/02/17 13:39:59, Route to Pharmacy Electronically, [id number], [facility] [address] Start Date: 06/02/17 Status: Ordered tiZANidine 2 mg oral tablet 2 mg, 1, tablet, By Mouth, Every 8 hours, PRN, # 90 tablet, Refills 3, Tot. Refills 3, Maintenance,as needed for muscle spasm, 01/30/21 8:11:00 EST, Route to Pharmacy Electronically, [email or web address] #[id number], Partial fill upon patient request, 167... Start [...]
--- OUTSIDE RECORDS SUMMARY | 2023-09-12 11:29 | XMS_ITS | Continuity of Care Document ---
Author Organization [facility] Address [address] [place] [id number]- Care Team Providers Care Multi Slide Machine Tender Name Role Phone Lisseth Nassar NP Primary Care Physician [place] [facility] [place]/13[place] - 10/11/20 [facility] [address] [place] [address] Attending Physician: Lyle Zhang MD Admitting Physician: Lyle Zhang MD Referring Physician: Lisseth Nassar NP Allergies, Adverse Reactions, Alerts Substance Reaction Severity Status sulfADIAZINE rash Active morphine rash & swelling Active sertraline 1 QT wave change Active sulfa drugs rash Active Bactrim rash Active NSAIDs 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 Refills 11, Maintenance, 11/24/17 13:49:05 EDT, Aerosol, Route to Pharmacy Electronically, [id number], [facility] [address], Compound Start Date: 11/24/17 Status: Ordered albuterol-ipratropium 3 mg-0.5 mg/3 ml inhalation solution 1 vials, Inhalation, 4 times a day, # 180 mL, 5 Refills, Maintenance, 07/30/19 11:02:00 EDT, [facility] #08508, 15, INHALE CONTENTS OF 1 VIAL VIA NEBULIZER FOUR TIMES DAILY, 167.64, cm, 04/24/19 16:16:00 EST, Height, 100.4, kg, 08/03/18 10:1... Start Date: 07/30/19 Status: Ordered amLODIPine 10 mg oral tablet 1 tablet, By Mouth, Daily, # 30 tablet, 5 Refills, Maintenance, 05/06/20 12:30:00 EST, [facility] #10650, 167.64, cm, 03/25/20 14:59:00 EST, Height, 100.4, kg, 08/03/18 10:14:00 EDT, Dry Weight Start Date: 05/06/20 Status: Ordered aspirin 81 mg oral delayed release tablet 81 mg, 1, tablet, By Mouth, Daily, # 30 tablet, Refills 5, Tot. Refills 5, Maintenance, 11/02/19 11:39:00 EDT, Route to Pharmacy Electronically, [facility] #49203, 167.64, cm, 11/02/19 10:58:00 EDT, Height, 100.4, kg, 08/03/18 10:14:00 EDT,... Start Date: 11/02/19 Status: Ordered bacitracin topical 500 u/gm ointment 1 application, Topically, 4 times a day, # 30 Gm, 0 Refills, Maintenance, 09/02/20 15:20:00 EDT, Ointment, [facility] #13749, Partial fill upon patient request if the prescription is for a schedule II opioid drug., 1 application Topically 4... Start Date: 09/02/20 Stop Date: 09/12/20 Status: Ordered baclofen 10 mg oral tablet 1, tablet, By Mouth, 3 times a day, # 60 tablet, Refills 0, Tot. Refills 0, Maintenance, 02/25/20 13:59:00 EST, Route to Pharmacy Electronically, [facility] #[id number], 167.64, cm, 11/12/19 15:34:00 EDT, Height, 100.4, [...] tablet, 11 Refills, Maintenance, 01/11/20 10:43:00 EDT, [facility] #74672, 167.64, cm, 11/12/19 15:34:00 EDT, Height, 100.4, [...] DAILY, # 44 mL, 0 Refills, Maintenance[facility]09740, 29, SPRAY TWICE IN EACH NOSTRIL FOUR [...] each, 5 Refills, Maintenance, 06/05/18 19:53:47 EDT, [place], 1 sprays Nares, Both 2 times a [...] 11 Refills, Maintenance, 03/02/19 10:19:00 EST, Capsule, [facility] #47129, 1 capsule By Mouth Daily, 167.64, cm, [...] 4 HOURS NEEDED FOR NAUSEA OR VOMITING, [facility] #17478 Start Date: 12/05/18 Status: Ordered raised toilet [...] Maintenance, 06/02/17 13:39:59, Route to Pharmacy Electronically, [id number], [facility] [address] Start Date: 06/02/17 Status: Ordered tiZANidine 2 mg oral tablet 2 mg, 1, tablet, By Mouth, Every 8 hours, PRN, # 90 tablet, Refills 3, Tot. Refills 3, Maintenance,as needed for muscle spasm, 02/08/20 9:24:00 EST, Route to Pharmacy Electronically, [facility] #[id number], Partial fill upon patient request, 167... Start [...]
--- OUTSIDE RECORDS SUMMARY | 2023-09-12 11:29 | XMS_ITS | Continuity of Care Document ---
Author Organization 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 Immunizations Given and Recorded Vaccine Date Status [...] 5 Refills, Maintenance, 05/07/19 10:46:00 EST, Solution, [facility] #[id number], 167.64, cm, 04/24/19 16:16:00 EST, Height, 100.4, kg, 08/03/18 10:14:00 EDT, Dry Weight Start Date: 05/07/19 Status: Ordered albuterol-ipratropium 3 mg-0.5 mg/3 ml inhalation solution 1 vials, Inhalation, 4 times a day, # 180 mL, 5 Refills, Maintenance, 07/30/19 11:02:00 EDT, [facility] #38798, 15, INHALE CONTENTS OF 1 VIAL VIA [...] 11 Refills, Maintenance, 04/23/21 14:51:00 EST, Capsule, [facility] #[id number], Partial fill upon patient request if the prescription is for a schedule II opi... Start Date: 04/23/21 Status: Ordered aspirin 81 mg oral delayed release tablet 81 mg, 1, tablet, By Mouth, Daily, # 30 tablet, Refills 5, Tot. Refills 5, Maintenance, 11/02/19 11:39:00 EDT, Route to Pharmacy Electronically, [facility] #[id number], 167.64, cm, 11/02/19 10:58:00 EDT, Height, 100.4, [...] tablet, 11 Refills, Maintenance, 01/11/20 10:43:00 EDT, [facility] #96430, 167.64, cm, 11/12/19 15:34:00 EDT, Height, 100.4, [...] each, 5 Refills, Maintenance, 06/05/18 19:53:47 EDT, [place], 1 sprays Nares, Both 2 times a [...] Acute 03/13/22 14:45:00 EST, 03/20/2213:45:00 EST, Ointment, [facility] #[id number], Partial fill upon patient request if the [...] 11 Refills, Maintenance, 03/02/19 10:19:00 EST, Capsule, [facility] #94657, 1 capsule By Mouth Daily, 167.64, cm, [...] Maintenance, 06/02/17 13:39:59, Route to Pharmacy Electronically, [id number], [facility] [address] Start Date: 06/02/17 Status: Ordered tiZANidine 2 mg oral tablet 2 mg, 1, tablet, By Mouth, Every 8 hours, PRN, # 90 tablet, Refills 3, Tot. Refills 3, Maintenance,as needed for muscle spasm, 06/18/21 10:33:00 EDT, Route to Pharmacy Electronically, [facility] #14803, Partial fill upon patient request, 16... Start [...]
--- OUTSIDE RECORDS SUMMARY | 2023-09-12 11:30 | XMS_ITS | Continuity of Care Document ---
Author Organization [facility] Address [address] [place] [address]- Care Team Providers Care Central Services Tech Name Role Phone Cesario VALDEZ, Lisesth Hancock Primary Care Physician [phone] [facility]counter [facility] Date(s): 01/21/20 - 02/20/20 [facility] [address] [place] [address] Allergies, Adverse Reactions, Alerts Substance Reaction Severity Status sulfADIAZINE rash Active morphine rash & swelling Active sertraline 1 QT wave change Active sulfa drugs rash Active Bactrim rash Active NSAIDs 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 Refills 11, Maintenance, 11/24/17 13:49:05 EDT, Aerosol, Route to Pharmacy Electronically, [id number], [facility] [address], Compound Start Date: 11/24/17 Status: Ordered albuterol-ipratropium 3 mg-0.5 mg/3 ml inhalation solution 1 vials, Inhalation, 4 times a day, # 180 mL, 5 Refills, Maintenance, 07/30/19 11:02:00 EDT, [facility] #55981, 15, INHALE CONTENTS OF 1 VIAL VIA NEBULIZER FOUR TIMES DAILY, 167.64, cm, 04/24/19 16:16:00 EST, Height, 100.4, kg, 08/03/18 10:1... Start Date: 07/30/19 Status: Ordered amLODIPine 10 mg oral tablet 1 tablet, By Mouth, Daily, # 30 tablet, 6 Refills, Maintenance, 10/04/19 12:22:00 EDT, [facility] #54874, 167.64, cm, 04/24/19 16:16:00 EST, Height, 100.4, kg, 08/03/18 10:14:00 EDT, Dry Weight Start Date: 10/04/19 Status: Ordered aspirin 81 mg oral delayed release tablet 81 mg, 1, tablet, By Mouth, Daily, # 30 tablet, Refills 5, Tot. Refills 5, Maintenance, 11/02/19 11:39:00 EDT, Route to Pharmacy Electronically, [facility] #[id number], 167.64, cm, 11/02/19 10:58:00 EDT, Height, 100.4, kg, 08/03/18 10:14:00 EDT,... Start Date: 11/02/19 Status: Ordered baclofen 10 mg oral tablet 1, tablet, By Mouth, 3 times a day, # 60 tablet, Refills 2, Tot. Refills 2, Maintenance, 06/14/19 9:10:00 EDT, Route to Pharmacy Electronically, [facility] #[id number], 167.64, cm, 04/24/19 16:16:00 EST, Height, 100.4, kg, 08/03/18 10:14:00 EDT,... Start Date: 06/14/19 Status: Ordered baclofen 10 mg oral tablet 1, tablet, By Mouth, 3 times a day, # 60 tablet, Refills 2, Tot. Refills 2, Maintenance, 11/22/19 8:56:00 EDT, Route to Pharmacy Electronically, [facility] #57850, 167.64, cm, 11/12/19 15:34:00 EDT, Height, 100.4, kg, 08/03/18 10:14:00 EDT,... Start Date: 11/22/19 Status: Ordered Bedside Commode See Instructions, # 1 each, Maintenance, please dispense bedside commode Dx M48.00, M54.5, R10.9, M17.10; length of need 99, 04/16/19 11:58:00 EST, [facility] Start Date: 04/16/19 Status: Ordered cetirizine 10 mg oral tablet 1 tablet, By Mouth, Daily, # 30 tablet, 11 Refills, Maintenance, 01/11/20 10:43:00 EDT, [facility] #13891, 167.64, cm, 11/12/19 15:34:00 EDT, Height, 100.4, [...] DAILY, # 44 mL, 0 Refills, Maintenance, [facility] #30181, 29, SPRAY TWICE IN EACH NOSTRIL FOUR [...] each, 5 Refills, Maintenance, 06/05/18 19:53:47 EDT, [place], 1 sprays Nares, Both 2 times a [...] 11 Refills, Maintenance, 03/02/19 10:19:00 EST, Capsule, [facility] #21465, 1 capsule By Mouth Daily, 167.64, cm, [...] 4 HOURS NEEDED FOR NAUSEA OR VOMITING, [facility] #53591 Start Date: 12/05/18 Status: Ordered raised toilet [...] Maintenance, 06/02/17 13:39:59, Route to Pharmacy Electronically, [id number], [facility] [address] Start Date: 06/02/17 Status: Ordered tiZANidine 2 mg oral tablet 2 mg, 1, tablet, By Mouth, Every 8 hours, PRN, # 90 tablet, Refills 3, Tot. Refills 3, Maintenance,as needed for muscle spasm, 02/08/20 9:24:00 EST, Route to Pharmacy Electronically, [facility] #51573, Partial fill upon patient request, 167... Start [...]
--- OUTSIDE RECORDS SUMMARY | 2023-09-12 11:30 | XMS_ITS | Continuity of Care Document ---
Author Organization [facility] Address [address] [place] [address]- Care Team Providers Care Progress Developer Name Role Phone Cesario VALDEZ, Lisseth Terrell Primary Care Physician [phone] Encounter [facility] Date(s): 05/17/19 - 06/22/[address] [address]- [facility] Attending Physician: Lisseth Nassar NP Admitting Physician: Lisseth Nassar NP Referring Physician: Lisseth Nassar NP Allergies, Adverse Reactions, Alerts Substance Reaction Severity Status sulfADIAZINE rash Active morphine rash & swelling Active sertraline 1 QT wave change Active sulfa drugs rash Active Bactrim rash Active NSAIDs 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 Active 1 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 Refills 11, Maintenance, 11/24/17 13:49:05 EDT, Aerosol, Route to Pharmacy Electronically, [id number], [facility] [address], Compound Start Date: 11/24/17 Status: Ordered albuterol-ipratropium 3 mg-0.5 mg/3 ml inhalation solution 3 mL, Inhalation, 4 times a day, # 60 each, 6 Refills, Maintenance, 02/17/18 14:50:32 EST, Solution, 3 mL Inhalation 4 times a day Start Date: 02/17/18 Status: Ordered amLODIPine 10 mg oral tablet 1 tablet, By Mouth, Daily, # 30 tablet, 2 Refills, Maintenance, 06/15/19 9:43:00 EDT, [facility] #66232, 167.64, cm, 04/24/19 16:16:00 EST, Height, 100.4, kg, 08/03/18 10:14:00 EDT, Dry Weight Start Date: 06/15/19 Status: Ordered baclofen 10 mg oral tablet 1, tablet, By Mouth, 3 times a day, # 60 tablet, Refills 2, Tot. Refills 2, Maintenance, 06/14/19 9:10:00 EDT, Route to Pharmacy Electronically, [facility] #84993, 167.64, cm, 04/24/19 16:16:00 EST, Height, 100.4, [...] 5 Refills, Maintenance, 04/16/19 13:06:00 EST, Tablet, [facility] #74891, 167.64, cm, 03/02/19 10:23:00 EST, Height, 100.4, [...] DAILY, # 44 mL, 0 Refills, Maintenance, [facility] #73289, 29, SPRAY TWICE IN EACH NOSTRIL FOUR [...] 06/23/19 10:51:00 EDT, 06/13/19 10:51:00 EDT, Capsule, [facility] #14137, 167.64, cm, 04/24/19 16:16:00 EST, Height, 100.4, [...] each, 5 Refills, Maintenance, 06/05/18 19:53:47 EDT, [place], 1 sprays Nares, Both 2 times a [...] 11 Refills, Maintenance, 03/02/19 10:19:00 EST, Capsule, [facility] #73356, 1 capsule By Mouth Daily, 167.64, cm, [...] 4 HOURS NEEDED FOR NAUSEA OR VOMITING, [facility] #18838 Start Date: 12/05/18 Status: Ordered raised toilet [...] Maintenance, 06/02/17 13:39:59, Route to Pharmacy Electronically, [id number], [facility] [address] Start Date: 06/02/17 Status: Ordered Transfer Bench [...]
--- OUTSIDE RECORDS SUMMARY | 2023-09-12 11:30 | XMS_ITS | Continuity of Care Document ---
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 Refills 11, Maintenance, 11/24/17 13:49:05 EDT, Aerosol, Route to Pharmacy Electronically, [id number], [facility] [address], Compound Start Date: 11/24/17 Status: Ordered albuterol-ipratropium 3 mg-0.5 mg/3 ml inhalation solution 1 vials, Inhalation, 4 times a day, # 180 mL, 5 Refills, Maintenance, 07/30/19 11:02:00 EDT, [facility] #84176, 15, INHALE CONTENTS OF 1 VIAL VIA NEBULIZER FOUR TIMES DAILY, 167.64, cm, 04/24/19 16:16:00 EST, Height, 100.4, kg, 08/03/18 10:1... Start Date: 07/30/19 Status: Ordered amLODIPine 10 mg oral tablet 1 tablet, By Mouth, Daily, # 30 tablet, 6 Refills, Maintenance, 10/04/19 12:22:00 EDT, [facility] #43163, 167.64, cm, 04/24/19 16:16:00 EST, Height, 100.4, kg, 08/03/18 10:14:00 EDT, Dry Weight Start Date: 10/04/19 Status: Ordered aspirin 81 mg oral delayed release tablet 81 mg, 1, tablet, By Mouth, Daily, # 30 tablet, Refills 5, Tot. Refills 5, Maintenance, 11/02/19 11:39:00 EDT, Route to Pharmacy Electronically, [facility] #77048, 167.64, cm, 11/02/19 10:58:00 EDT, Height, 100.4, kg, 08/03/18 10:14:00 EDT,... Start Date: 11/02/19 Status: Ordered baclofen 10 mg oral tablet 1, tablet, By Mouth, 3 times a day, # 60 tablet, Refills 2, Tot. Refills 2, Maintenance, 06/14/19 9:10:00 EDT, Route to Pharmacy Electronically, [facility] #88255, 167.64, cm, 04/24/19 16:16:00 EST, Height, 100.4, [...] 5 Refills, Maintenance, 04/16/19 13:06:00 EST, Tablet, [facility] #64482, 167.64, cm, 03/02/19 10:23:00 EST, Height, 100.4, [...] DAILY, # 44 mL, 0 Refills, Maintenance, [facility] #33432, 29, SPRAY TWICE IN EACH NOSTRIL FOUR [...] each, 5 Refills, Maintenance, 06/05/18 19:53:47 EDT, [place], 1 sprays Nares, Both 2 times a [...] 11 Refills, Maintenance, 03/02/19 10:19:00 EST, Capsule, [facility] #67479, 1 capsule By Mouth Daily, 167.64, cm, [...] 4 HOURS NEEDED FOR NAUSEA OR VOMITING, [facility] #07283 Start Date: 12/05/18 Status: Ordered raised toilet [...] Maintenance, 06/02/17 13:39:59, Route to Pharmacy Electronically, [id number], [facility] [address] Start Date: 06/02/17 Status: Ordered Transfer Bench [...]
--- OUTSIDE RECORDS SUMMARY | 2023-09-12 11:30 | XMS_ITS | Continuity of Care Document ---
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 Start Date: 10/19/21 Status: Ordered albuterol-ipratropium 3 mg-0.5 mg/3 ml inhalation solution 1 vials, Inhalation, 4 times a day, # 180 mL, 5 Refills, Maintenance, 07/30/19 11:02:00 EDT, [facility] #06084, 15, INHALE CONTENTS OF 1 VIAL VIA [...] tablet, 11 Refills, Maintenance, 12/07/21 8:02:00 EDT, [facility] #81377, 165, cm, 10/27/21 1:44:00 EDT, Height, 90.9, kg, 10/27/21 1:44:00 EDT, Dry Weight Start Date: 12/07/21 Status: Ordered amlodipine-benazepril 5 mg-10 mg oral capsule 1 capsule, By Mouth, Daily, To replace prior prescription (amlodipine)., # 90 capsule, 11 Refills, Maintenance, 03/01/22 16:04:00 EST, Capsule, [facility] #82867, Partial fill upon patient request if the prescription is for a schedule II opi... Start Date: 03/01/22 Stop Date: 02/13/25 Status: Ordered aspirin 81 mg oral delayed release tablet 81 mg, 1, tablet, By Mouth, Daily, # 30 tablet, Refills 5, Tot. Refills 5, Maintenance, 11/02/19 11:39:00 EDT, Route to Pharmacy Electronically, [facility] #28583, 167.64, cm, 11/02/19 10:58:00 EDT, Height, 100.4, kg, 08/03/18 10:14:00 EDT,... Start Date: 11/02/19 Status: Ordered baclofen 10 mg oral tablet 10 mg, 1, tablet, By Mouth, Daily at bedtime, # 30 tablet, Refills 5, Tot. Refills 5, Maintenance, 02/09/22 13:45:00 EST, Route to Pharmacy Electronically, [facility] #[id number], Partial fill upon patient request if the [...] tablet, 11 Refills, Maintenance, 09/25/21 11:17:00 EDT, [facility] #35251, 165, cm, 09/25/21 11:04:00 EDT, Height, 96, [...] each, 11 Refills, Maintenance, 09/25/21 11:17:00 EDT, [place], [facility] #06605, 1 sprays Nares, Both 2 times a day,x30 days, 165, cm, 09/25/21 11:04:00 EDT, Height, 96, kg, 07/13/21 10:52:00 EDT, Dry... Start Date: 09/25/21 Stop Date: 09/20/22 Status: Ordered fluconazole 150 mg oral tablet 1 tablet = 150 mg, By Mouth, Once, Repeat dose if still having symptoms in 72 hours, # 2 tablet, 0 Refills, Soft Stop, 02/09/22 13:43:00 EST, Tablet, [facility] #45327, Partial fill upon patient request if the prescription is for a schedule... Start Date: 02/09/22 Status: Ordered fluconazole 150 mg oral tablet 1 tablet = 150 mg, By Mouth, Once, repeat dose if still having symptoms in 72 hours, # 2 tablet, 2 Refills, Soft Stop, 04/14/22 10:57:00 EST, Tablet, [facility] #99924, Partial fill upon patient request if the [...] 11 Refills, Maintenance, 03/02/19 10:19:00 EST, Capsule, [facility] #63611, 1 capsule By Mouth Daily, 167.64, cm, [...] 30 tablet, 0 Refills,Maintenance, 10/18/21 16:41:00 EDT, [facility]... Start Date: 10/18/21 Status: Ordered Prevacid 30 [...] 09/25/21 11:17:00 EDT, Route to Pharmacy Electronically, [facility] #78315, 165, cm, 09/25/2210:04:00 EDT, Height, 96, kg, 07/13/21 10:52:00 EDT... Start Date: 09/25/21 Status: Ordered tiZANidine 2 mg oral tablet 2 mg, 1, tablet, By Mouth, Every 8 hours, PRN, # 90 tablet, Refills 3, Tot. Refills 3, Maintenance,as needed for muscle spasm, 06/18/21 10:33:00 EDT, Route to Pharmacy Electronically, [facility] #77400, Partial fill upon patient request, 16... Start [...] Team Personnel Name: Lisseth Nassar NP Position: [facility] PCO Associate Professional Member Role: PCP Address: Address: [address] [place] [address]- [place] Name: Edenilson Puckett MD Position: [facility] UPPER TIER MD Member Role: Lifetime UPPER TIER Physician Address: Address: [address] [place], [place] [address] [place] [address]- [place] Name: Chidi Clark DO Position: [facility] Renal MD Member Role: Lifetime Consulting Physician Address: Address: [address] [place] [address] [address] [facility] [place] [address]- Name: Starr Harper RN Position: [facility] RN Member Role: Primary Care Nurse Care Team Related Persons Name: MARYA ADRIAN Address: [address] [address]
--- OUTSIDE RECORDS SUMMARY | 2023-09-12 11:30 | XMS_ITS | Continuity of Care Document ---
Author Organization [facility] Address [address] [place] [address]- Care Team Providers Care House Mover Name Role Phone Cesario VALDEZ, Lisseth Hancock Primary Care Physician [phone] [facility]counter [facility] Date(s): 10/14/22 - 11/13/22 [facility] [address] [place] [address]- Attending Physician: Janette Connelly Admitting Physician: Janette Connelly Referring Physician: Janette Connelly Allergies, Adverse Reactions, Alerts Substance Reaction Severity Status sulfADIAZINE rash Active sertraline 1 QT wave change Active sulfa drugs rash Active NSAIDs 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 Start Date: 05/12/22 Status: Ordered albuterol CFC free 90 mcg/inh inhalation aerosol 2, puffs, Inhalation, 4 times a day, PRN, Dispense brand as required by insurance, # 18 Gm, [id number], Tot. Refills 11, Maintenance, 05/12/22 11:38:00 EST, Aerosol, Route to Pharmacy Electronically, [id number], [facility]... Start Date: 05/12/22 Status: Ordered albuterol-ipratropium 3 mg-0.5 mg/3 ml inhalation solution 1 vials, Inhalation, 4 times a day, # 180 mL, 11 Refills, Maintenance, 05/12/22 11:38:00 EST, [facility] #58218, 15, 1 vials Inhalation 4 times a [...] 11 Refills, Maintenance, 03/01/22 16:04:00 EST, [facility]ule[facility], Partial fill upon patient request if the prescription is for a schedule II opi... Start Date: 03/01/22 Stop Date: 02/13/25 Status: Ordered apixaban 2.5 mg oral tablet 1 tablet = 2.5 mg, By Mouth, 2 times a day, # 60 tablet, 0 Refills, Maintenance, 05/28/22 8:20:00 EDT, Tablet, [facility], Partial fill upon patient request if [...] tablet, 11 Refills, Maintenance, 09/25/21 11:17:00 EDT, [facility] #35778, 165, cm, 09/25/21 11:04:00 EDT, Height, 96, [...] each, 11 Refills, Maintenance, 09/25/21 11:17:00 EDT, [place], [facility] #63355, 1 sprays Nares, Both 2 times a day,x30 days, 165, cm, 09/25/21 11:04:00 EDT, Height, 96, kg, 07/13/21 10:52:00 EDT, Dry... Start Date: 09/25/21 Stop Date: 09/20/22 Status: Ordered Flovent HFA 220 mcg/inh inhalation aerosol 2 puffs, Inhalation, 2 times a day, # 12 Gm, 11 Refills, Maintenance, 05/19/22 13:39:00 EST, Aerosol, [facility] #47087, Partial fill upon patient request if the [...] 03/13/23 15:24:00 EST, 09/01/22 15:23:00 EDT, Ointment, [facility] #45763, Partial fill upon patient request if the [...] 0 Refills, Maintenance, 11/04/22 8:16:00 EDT, Tablet, [facility]... Start Date: 11/04/22 Stop Date: 12/04/22 Status: [...] 05/12/22 11:38:00 EST, Route to Pharmacy Electronically, [facility] #23985, 168, cm, 05/12/2310:30:00 EST, Height, 85, kg, [...] Type Response Tobacco Use: MARIJUANA. Sex Cardiology * Event Display: Cardiology Office Note, Non- Authored Date: * Event Display: Cardiology Office Note, Non- Authored Date: Radiology * Event Display: [place] Nuclear Medicine, Non- Authored Date: Patient Care team information Care Team Personnel Name: Tristin Hunt RN Position: S RN Member Role: Primary Care Nurse Name: Lisseth Nassar NP Position: [facility] PCO Associate Professional Member Role: PCP Address: Address: [address] [place] [address]- Name: Edenilson Puckett MD Position: [facility] [employer] MD Member Role: Lifetime [employer] Physician Address: Address: [address] [place] [address]- Name: Jovana Park RN Position: S RN Member Role: Primary Care Nurse Name: Chidi Clark DO Position: [facility] Renal MD Member Role: Lifetime Consulting Physician Address: Address: [address] [place] [address] [address] [facility] [place] [address]- Name: Mireya Torres RN Position: S RN Member Role: Primary Care Nurse Name: Starr Harper RN Position: [facility] SN RN Member Role: Primary Care Nurse Name: Kelly Maddox RN Position: S RN Member Role: Primary Care Nurse Care Team Related Persons Name: KAYLAH MARYA Address: home [address] [place] [address] Name: MORALES HOWELL Address: home [address] [place] [address]
--- OUTSIDE RECORDS SUMMARY | 2023-09-12 11:30 | XMS_ITS | Continuity of Care Document ---
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 Start Date: 01/26/23 Status: Ordered albuterol CFC free 90 mcg/inh inhalation aerosol 2, puffs, Inhalation, 4 times a day, PRN, Dispense brand as required by insurance, # 1 each, Refills 11, Tot. Refills 11, Maintenance, 01/26/23 14:00:00 EST, Aerosol, Route to Pharmacy Electronically, [id number], [facility]. Start Date: 01/26/23 Status: Ordered albuterol-ipratropium 3 mg-0.5 mg/3 ml inhalation solution 1 vials, Inhalation, 4 times a day, # 180 mL, 11 Refills, Maintenance, 01/27/23 9:25:00 EST, [facility] #[id number], 15, 1 vials Inhalation 4 times a [...] tablet, 6 Refills, Maintenance, 12/07/22 16:46:00 EDT, [facility] #[id number], 165, cm, 12/06/22 17:39:00 EDT, Height, 88.2, kg, 05/26/22 7:52:00EDT, Dry Weight Start Date: 12/07/22 Status: Ordered amlodipine-benazepril 5 mg-10 mg oral capsule 1 capsule, By Mouth, Daily, To replace prior prescription (amlodipine)., # 90 capsule, 11 Refills, Maintenance, 03/01/22 16:04:00 EST, Capsule, [facility] #[id number], Partial fill upon patient request if the [...] tablet, 3 Refills, Maintenance, 01/26/23 14:00:00 EST, [facility] #[id number], 165, cm, 01/26/23 13:31:00 EST, Height, 88.2, [...] each, 11 Refills, Maintenance, 09/25/21 11:17:00 EDT, [place], [facility] #47015, 1 sprays Nares, Both 2 times a day,x30 days, 165, cm, 09/25/21 11:04:00 EDT, Height, 96, kg, 07/13/21 10:52:00 EDT, Dry... Start Date: 09/25/21 Stop Date: 09/20/22 Status: Ordered fluconazole 150 mg oral tablet 1 tablet = 150 mg, By Mouth, Once, Repeat dose if still having symptoms in 72 hours, # 2 tablet, 1 Refills, Soft Stop, 01/26/23 14:19:00 EST, Tablet, [facility] #84305, Partial fill upon patient request if the [...] 11 Refills, Maintenance, 01/26/23 14:04:00 EST, Aerosol, [facility] #[id number], Partial fill upon patient request if the prescription is for a s... Start Date: 01/26/23 Status: Ordered mupirocin 2% topical ointment 1 application, Topically, 3 times a day, # 30 Gm, 2 Refills, Acute 03/13/23 15:24:00 EST, 09/01/22 15:23:00 EDT, Ointment, [facility] #12758, Partial fill upon patient request if the [...] capsule, 4 Refills, Maintenance, 01/26/23 14:02:00 EST, [facility] #23740, 165, cm, 01/26/23 13:31:00 EST, Height, 88.2, [...] 01/26/23 14:02:00 EST, Route to Pharmacy Electronically, [facility] #[id number], 165, cm, 01/26/23 13:31:00 EST, Height, 88.2, [...] Team Personnel Name: Tristin Hunt RN Position: [facility] RN Member Role: Primary Care Nurse Name: Lisseth Nassar NP Position: [facility] PCO Associate Professional Member Role: PCP Address: Address: [address] [place] [address]- Name: Edenilson Puckett MD Position: [facility] RECRUITING TEAM LEAD MD Member Role: [employer]etime RECRUITING TEAM LEAD Physician Address: Address: [address] [place] [address]- Name: Jovana Park RN Position: [facility] SN RN Member Role: Primary Care Nurse Name: Chidi Clark DO Position: [facility] Renal MD Member Role: Lifetime Consulting Physician Address: Address: [address] [place] [address] [address] [facility] [place] [address]- Name: Mireya Torres RN Position: S RN Member Role: Primary Care Nurse Name: Starr Harper RN Position: [facility] SN RN Member Role: Primary Care Nurse Name: Kelly Maddox RN Position: [facility] RN Member Role: Primary Care Nurse Care Team Related Persons Name: KAYLAH MARYA Address: home [address] [place] [address] Name: MORALES HOWELL Address: home [address] [place] [address]
--- OUTSIDE RECORDS SUMMARY | 2023-09-12 11:30 | XMS_ITS | Continuity of Care Document ---
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 Immunizations Given and Recorded Vaccine Date Status Refusal Reason SARS-CoV-2 (COVID-19) mRNA BNT-162b2 vac 07/13/20 Recorded SARS-CoV-2 (COVID-19) mRNA BNT-162b2 vac 06/21/20 Recorded influenza virus vaccine, inactivated 04/26/19 Anthnoy rded influenza virus vaccine, inactivated 12/27/17 Give [...] 5 Refills, Maintenance, 05/07/19 10:46:00 EST, Solution, [facility] #[id number], 167.64, cm, 04/24/19 16:16:00 EST, Height, 100.4, kg, 08/03/18 10:14:00 EDT, Dry Weight Start Date: 05/07/19 Status: Ordered albuterol CFC free 90 mcg/inh inhalation aerosol 2, puffs, Inhalation, 4 times a day, PRN, # 25 Gm, Refills 11, Tot. Refills 11, Maintenance, 11/24/17 13:49:05 EDT, Aerosol, Route to Pharmacy Electronically, [id number], [id number], Compound Start Date: 11/24/17 Status: Ordered albuterol-ipratropium 3 mg-0.5 mg/3 ml inhalation solution 1 vials, Inhalation, 4 times a day, # 180 mL, 5 Refills, Maintenance, 07/30/19 11:02:00 EDT, [facility] #[id number], 15, INHALE CONTENTS OF 1 VIAL VIA NEBULIZER FOUR TIMES DAILY, 167.64, cm, 04/24/19 16:16:00 EST, Height, 100.4, kg, 08/03/18 10:1... Start Date: 07/30/19 Status: Ordered amLODIPine 10 mg oral tablet 1 tablet, By Mouth, Daily, # 30 tablet, 5 Refills, Maintenance, 05/06/20 12:30:00 EST, [facility] #[id number], 167.64, cm, 03/25/20 14:59:00 EST, Height, 100.4, kg, 08/03/18 10:14:00 EDT, Dry Weight Start Date: 05/06/20 Status: Ordered aspirin 81 mg oral delayed release tablet 81 mg, 1, tablet, By Mouth, Daily, # 30 tablet, Refills 5, Tot. Refills 5, Maintenance, 11/02/19 11:39:00 EDT, Route to Pharmacy Electronically, [facility] #07907, 167.64, cm, 11/02/19 10:58:00 EDT, Height, 100.4, kg, 08/03/18 10:14:00 EDT,... Start Date: 11/02/19 Status: Ordered baclofen 10 mg oral tablet 1, tablet, By Mouth, 3 times a day, # 60 tablet, Refills 0, Tot. Refills 0, Maintenance, 02/25/20 13:59:00 EST, Route to Pharmacy Electronically, [facility] #79476, 167.64, cm, 11/12/19 15:34:00 EDT, Height, 100.4, [...] tablet, 11 Refills, Maintenance, 01/11/20 10:43:00 EDT, [facility] #[id number], 167.64, cm, 11/12/19 15:34:00 EDT, Height, 100.4, [...] DAILY, # 44 mL, 0 Refills, Maintenance, [facility] #04685, 29, SPRAY TWICE IN EACH NOSTRIL FOUR [...] each, 5 Refills, Maintenance, 06/05/18 19:53:47 EDT, [place], 1 sprays Nares, Both 2 times a [...] 11 Refills, Maintenance, 03/02/19 10:19:00 EST, Capsule, [facility] #69609, 1 capsule By Mouth Daily, 167.64, cm, [...] 4 HOURS NEEDED FOR NAUSEA OR VOMITING, [facility] #[id number] Start Date: 12/05/18 Status: Ordered raised toilet [...] Maintenance, 06/02/17 13:39:59, Route to Pharmacy Electronically, [id number], [facility] [address]3091 Start Date: 06/02/17 Status: Ordered tiZANidine 2 mg oral tablet 2 mg, 1, tablet, By Mouth, Every 8 hours, PRN, # 90 tablet, Refills 3, Tot. Refills 3, Maintenance,as needed for muscle spasm, 02/08/20 9:24:00 EST, Route to Pharmacy Electronically, [facility] #[id number], Partial fill upon patient request, 167... Start [...]
--- OUTSIDE RECORDS SUMMARY | 2023-09-12 11:30 | XMS_ITS | Continuity of Care Document ---
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 Start Date: 05/12/22 Status: Ordered albuterol CFC free 90 mcg/inh inhalation aerosol 2, puffs, Inhalation, 4 times a day, PRN, Dispense brand as required by insurance, # 18 Gm, [id number], Tot. Refills 11, Maintenance, 05/12/22 11:38:00 EST, Aerosol, Route to Pharmacy Electronically, [id number], [facility]... Start Date: 05/12/22 Status: Ordered albuterol-ipratropium 3 mg-0.5 mg/3 ml inhalation solution 1 vials, Inhalation, 4 times a day, # 180 mL, 11 Refills, Maintenance, 05/12/22 11:38:00 EST, [facility] #[id number], 15, 1 vials Inhalation 4 times a [...] 11 Refills, Maintenance, 03/01/22 16:04:00 EST, Capsule, [facility] #43454, Partial fill upon patient request if the prescription is for a schedule II opi... Start Date: 03/01/22 Stop Date: 02/13/25 Status: Ordered apixaban 2.5 mg oral tablet 1 tablet = 2.5 mg, By Mouth, 2 times a day, # 60 tablet, 0 Refills, Maintenance, 05/28/22 8:20:00 EDT, Tablet, [facility] 3, Partial fill upon patient [...] tablet, 11 Refills, Maintenance, 09/25/21 11:17:00 EDT, [facility] #03469, 165, cm, 09/25/21 11:04:00 EDT, Height, 96, [...] each, 11 Refills, Maintenance, 09/25/21 11:17:00 EDT, [place], [facility] #66863, 1 sprays Nares, Both 2 times a day,x30 days, 165, cm, 09/25/21 11:04:00 EDT, Height, 96, kg, 07/13/21 10:52:00 EDT, Dry... Start Date: 09/25/21 Stop Date: 09/20/22 Status: Ordered Flovent HFA 220 mcg/inh inhalation aerosol 2 puffs, Inhalation, 2 times a day, # 12 Gm, 11 Refills, Maintenance, 05/19/22 13:39:00 EST, Aerosol, [facility] #[id number], Partial fill upon patient request if the [...] 03/13/23 15:24:00 EST, 09/01/22 15:23:00 EDT, Ointment, [facility] #[id number], Partial fill upon patient request if the [...] pain; may fill less; May fill on/after 09/09/2022, # 180 tablet, 0 Refills, Maintenance, 09/07/22 9:44:00 EDT, Tablet, [facility]... Start Date: 09/07/22 Stop Date: 10/07/22 Status: Ordered Prevacid 30 mg oral enteric [...] 05/12/22 11:38:00 EST, Route to Pharmacy Electronically, [facility][id number], 168, cm, 05/12/2310:30:00 EST, Height, 85, kg, [...] Personnel Name: Tristin Hunt RN Position: [facility] RN Member Role: Primary Care Nurse Name: Lisseth Nassar NP Position: [facility] PCO Associate Professional Member Role: PCP Address: Address: [address] [place] [address]- [place] Name: Edenilson Puckett MD Position: [facility] FIREBREAK CUTTER MD Member Role: Lifetime FIREBREAK CUTTER Physician Address: Address: [address] [place] [address]- [place] Name: Jovana Park RN Position: [facility] RN Member Role: Primary Care Nurse Name: Chidi Clark DO Position: [facility] Renal MD Member Role: Lifetime Consulting Physician Address: Address: [address] [place] [address] [address] [facility] [place] [address]- [place] Name: Mireya Torres RN Position: [facility] RN Member Role: Primary Care Nurse Name: Kelly Madodx RN Position: [facility] RN Member Role: Primary Care Nurse Care Team Related Persons Name: MARYA ADRIAN Address: home [address] [place] [address] Name: MORALES HOWELL Address: home [address] [place] [address]
--- OUTSIDE RECORDS SUMMARY | 2023-09-12 11:31 | XMS_ITS | Continuity of Care Document ---
Author Organization [facility] Address [address] [place] [address]- Care Team Providers Care Heel Scorer Name Role Phone Cesario VALDEZ, Lisseth Hancock Primary Care Physician Encounter [facility] Date(s): 04/22/22 - 05/22/22 [facility] [address] [place] [address]- Attending Physician: Janette Connelly Admitting Physician: AdmJanette pa Referring Physician: AdmtrJanette Allergies, Adverse Reactions, Alerts Substance Reaction Severity Status sulfADIAZINE rash Active sertraline 1 QT wave change Active fentanyl topical passed out Active sulfa drugs rash Active NSAIDs 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 Start Date: 05/12/22 Status: Ordered albuterol CFC free 90 mcg/inh inhalation aerosol 2, puffs, Inhalation, 4 times a day, PRN, Dispense brand as required by insurance, # 18 Gm, [id number], Tot. Refills 11, Maintenance, 05/12/22 11:38:00 EST, Aerosol, Route to Pharmacy Electronically, [id number], [facility]... Start Date: 05/12/22 Status: Ordered albuterol-ipratropium 3 mg-0.5 mg/3 ml inhalation solution 1 vials, Inhalation, 4 times a day, # 180 mL, 11 Refills, Maintenance, 05/12/22 11:38:00 EST, [facility] #[id number], 15, 1 vials Inhalation 4 times a [...] tablet, 11 Refills, Maintenance, 12/07/21 8:02:00 EDT, [facility] #96605, 165, cm, 10/27/21 1:44:00 EDT, Height, 90.9, kg, 10/27/21 1:44:00 EDT, Dry Weight Start Date: 12/07/21 Status: Ordered amlodipine-benazepril 5 mg-10 mg oral capsule 1 capsule, By Mouth, Daily, To replace prior prescription (amlodipine)., # 90 capsule, 11 Refills, Maintenance, 03/01/22 16:04:00 EST, Capsule, [facility] #[id number], Partial fill upon patient request if the prescription is for a schedule II opi... Start Date: 03/01/22 Stop Date: 02/13/25 Status: Ordered aspirin 81 mg oral delayed release tablet 81 mg, 1, tablet, By Mouth, Daily, # 30 tablet, Refills 5, Tot. Refills 5, Maintenance, 11/02/19 11:39:00 EDT, Route to Pharmacy Electronically, [facility] #75363, 167.64, cm, 11/02/19 10:58:00 EDT, Height, 100.4, kg, 08/03/18 10:14:00 EDT,... Start Date: 11/02/19 Status: Ordered baclofen 10 mg oral tablet 10 mg, 1, tablet, By Mouth, Daily at bedtime, # 30 tablet, Refills 5, Tot. Refills 5, Maintenance, 02/09/22 13:45:00 EST, Route to Pharmacy Electronically, [facility] #[id number], Partial fill upon patient request if the [...] tablet, 11 Refills, Maintenance, 09/25/21 11:17:00 EDT, [facility] #[id number], 165, cm, 09/25/21 11:04:00 EDT, Height, 96, [...] each, 11 Refills, Maintenance, 09/25/21 11:17:00 EDT, [place], [facility] #52043, 1 sprays Nares, Both 2 times a day,x30 days, 165, cm, 09/25/21 11:04:00 EDT, Height, 96, kg, 07/13/21 10:52:00 EDT, Dry... Start Date: 09/25/21 Stop Date: 09/20/22 Status: Ordered Flovent HFA 220 mcg/inh inhalation aerosol 2 puffs, Inhalation, 2 times a day, # 12 Gm, 11 Refills, Maintenance, 05/19/22 13:39:00 EST, Aerosol, [facility] #25529, Partial fill upon patient request if the prescription is for a schedule II opioid drug., 168, cm, 05/12/22 11:30:00 EST,... Start Date: 05/19/22 Status: Ordered fluconazole 150 mg oral tablet 1 tablet = 150 mg, By Mouth, Once, Repeat dose if still having symptoms in 72 hours, # 2 tablet, 0 Refills, Soft Stop, 02/09/22 13:43:00 EST, Tablet, [facility] #[id number], Partial fill upon patient request if the prescription is for a schedule... Start Date: 02/09/22 Status: Ordered fluconazole 150 mg oral tablet 1 tablet = 150 mg, By Mouth, Once, repeat dose if still having symptoms in 72 hours, # 2 tablet, 2 Refills, Soft Stop, 04/14/22 10:57:00 EST, Tablet, [facility] #73099, Partial fill upon patient request if the [...] 11 Refills, Maintenance, 03/02/19 10:19:00 EST, Capsule, [facility] #63188, 1 capsule By Mouth Daily, 167.64, cm, [...] pain; may fill less; May fill on/after 05/18/2022, # 180 tablet, 0 Refills, Maintenance, 05/14/22 11:18:00 EST, Tablet, [facility] Start Date: 05/14/22 Stop Date: 06/13/22 Status: Ordered Paxlovid 150 mg-100 mg oral tablet See Instructions, 300mg nirmatrelvir (two 150mg tablets) with 100mg ritonavir (one tablet). All 3 tablets taken together twice daily By Mouth for 5 days, with or without food, # 30 tablet, 0 Refills,Maintenance, 10/18/21 16:41:00 EDT, [facility] Start Date: 10/18/21 Status: Ordered Prevacid [...] 05/12/22 11:38:00 EST, Route to Pharmacy Electronically, [facility] #[id number], 168, cm, 05/12/2310:30:00 EST, Height, 85, kg, 05/10/22 9:23:00 EST,... Start Date: 05/12/22 Status: Ordered tiZANidine 2 mg oral tablet 2 mg, 1, tablet, By Mouth, Every 8 hours, PRN, # 90 tablet, Refills 3, Tot. Refills 3, Maintenance,as needed for muscle spasm, 06/18/21 10:33:00 EDT, Route to Pharmacy Electronically, [facility] #[id number], Partial fill upon patient request, 16... Start [...] Type Response Tobacco Use: MARIJUANA. Sex Female Note * Event Display: [place] [facility], Non- Authored Date: * Event Display: Cardiology Office Note, Non- Authored Date: * Event Display: Cardiology Office Note, Non- Authored Date: Patient Care team information Care Team Personnel Name: Cesario POLICE CAPTAIN SENIOR, Lisseth Hancock Position: [facility] PCO Associate Professional Member Role: PCP Address: Address: [address] [place] [address]- Name: Lavern SPENCER, Edenilson Chen Position: [facility] AUTOMATIC TRIMMING SEWER MD Member Role: Lifetime AUTOMATIC TRIMMING SEWER Physician Address: Address: [address] [place] [address]- [place] Name: Chidi Clark DO Position: [facility] Renal MD Member Role: Lifetime Consulting Physician Address: Address: [address] [place] [address] [address] [facility] [place] [place] [address]- Care Team Related Persons Name: MARYA ADRIAN Address: home [address] [place] [address] Name: MORALES HOWELL Address: home [address] [place] [address]
--- OUTSIDE RECORDS SUMMARY | 2023-09-12 11:31 | XMS_ITS | Continuity of Care Document ---
Author Organization [facility] Address [address] [place] [address]- Care Team Providers Care Metallurgist Process Name Role Phone Lisseth Nassar NP Primary Care Physician Encounter 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 Immunizations Given and Recorded Vaccine Date Status [...] 5 Refills, Maintenance, 05/07/19 10:46:00 EST, Solution, [facility] #[id number], 167.64, cm, 04/24/19 16:16:00 EST, Height, 100.4, kg, 08/03/18 10:14:00 EDT, Dry Weight Start Date: 05/07/19 Status: Ordered albuterol-ipratropium 3 mg-0.5 mg/3 ml inhalation solution 1 vials, Inhalation, 4 times a day, # 180 mL, 5 Refills, Maintenance, 07/30/19 11:02:00 EDT, [facility] #[id number], 15, INHALE CONTENTS OF 1 VIAL VIA [...] 11 Refills, Maintenance, 04/23/21 14:51:00 EST, Capsule, [facility] #45190, Partial fill upon patient request if the prescription is for a schedule II opi... Start Date: 04/23/21 Status: Ordered aspirin 81 mg oral delayed release tablet 81 mg, 1, tablet, By Mouth, Daily, # 30 tablet, Refills 5, Tot. Refills 5, Maintenance, 11/02/19 11:39:00 EDT, Route to Pharmacy Electronically, [facility] #75701, 167.64, cm, 11/02/19 10:58:00 EDT, Height, 100.4, [...] tablet, 11 Refills, Maintenance, 01/11/20 10:43:00 EDT, [facility] #65056, 167.64, cm, 11/12/19 15:34:00 EDT, Height, 100.4, [...] each, 5 Refills, Maintenance, 06/05/18 19:53:47 EDT, [place], 1 sprays Nares, Both 2 times a [...] Acute 03/13/22 14:45:00 EST, 03/20/2213:45:00 EST, Ointment, [facility] #00342, Partial fill upon patient request if the [...] 11 Refills, Maintenance, 03/02/19 10:19:00 EST, Capsule, [facility] #23530, 1 capsule By Mouth Daily, 167.64, cm, [...] Maintenance, 06/02/17 13:39:59, Route to Pharmacy Electronically, [id number], [facility] [address] Start Date: 06/02/17 Status: Ordered tiZANidine 2 mg oral tablet 2 mg, 1, tablet, By Mouth, Every 8 hours, PRN, # 90 tablet, Refills 3, Tot. Refills 3, Maintenance,as needed for muscle spasm, 06/18/21 10:33:00 EDT, [facility] to [facility] Electronically, [facility], Partial fill upon patient request, 16... Start [...]
--- OUTSIDE RECORDS SUMMARY | 2023-09-12 11:31 | XMS_ITS | Continuity of Care Document ---
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 Refills 11, Maintenance, 11/24/17 13:49:05 EDT, Aerosol, Route to Pharmacy Electronically, [id number], [facility] [address], Compound Start Date: 11/24/17 Status: Ordered albuterol-ipratropium 3 mg-0.5 mg/3 ml inhalation solution 1 vials, Inhalation, 4 times a day, # 180 mL, 5 Refills, Maintenance, 07/30/19 11:02:00 EDT, [facility] #[id number], 15, INHALE CONTENTS OF 1 VIAL VIA NEBULIZER FOUR TIMES DAILY, 167.64, cm, 04/24/19 16:16:00 EST, Height, 100.4, kg, 08/03/18 10:1... Start Date: 07/30/19 Status: Ordered amLODIPine 10 mg oral tablet 1 tablet, By Mouth, Daily, # 30 tablet, 5 Refills, Maintenance, 05/06/20 12:30:00 EST, [facility] #[id number], 167.64, cm, 03/25/20 14:59:00 EST, Height, 100.4, kg, 08/03/18 10:14:00 EDT, Dry Weight Start Date: 05/06/20 Status: Ordered aspirin 81 mg oral delayed release tablet 81 mg, 1, tablet, By Mouth, Daily, # 30 tablet, Refills 5, Tot. Refills 5, Maintenance, 11/02/19 11:39:00 EDT, Route to Pharmacy Electronically, [facility] #[id number], 167.64, cm, 11/02/19 10:58:00 EDT, Height, 100.4, kg, 08/03/18 10:14:00 EDT,... Start Date: 11/02/19 Status: Ordered bacitracin topical 500 u/gm ointment 1 application, Topically, 4 times a day, # 30 Gm, 0 Refills, Maintenance, 09/02/20 15:20:00 EDT, Ointment, [facility] #[id number], Partial fill upon patient request if the prescription is for a schedule II opioid drug., 1 application Topically 4... Start Date: 09/02/20 Stop Date: 09/12/20 Status: Ordered baclofen 10 mg oral tablet 1, tablet, By Mouth, 3 times a day, # 60 tablet, Refills 0, Tot. Refills 0, Maintenance, 02/25/20 13:59:00 EST, Route to Pharmacy Electronically, [facility] #[id number], 167.64, cm, 11/12/19 15:34:00 EDT, Height, 100.4, [...] tablet, 11 Refills, Maintenance, 01/11/20 10:43:00 EDT, [facility] #[id number], 167.64, cm, 11/12/19 15:34:00 EDT, Height, 100.4, [...] DAILY, # 44 mL, 0 Refills, Maintenance, [id number], 29, SPRAY TWICE IN EACH NOSTRIL FOUR [...] each, 5 Refills, Maintenance, 06/05/18 19:53:47 EDT, [place], 1 sprays Nares, Both 2 times a [...] 11 Refills, Maintenance, 03/02/19 10:19:00 EST, Capsule, [facility] #[id number], 1 capsule By Mouth Daily, 167.64, cm, [...] 4 HOURS NEEDED FOR NAUSEA OR VOMITING, [facility] #31389 Start Date: 12/05/18 Status: Ordered raised toilet [...] Maintenance, 06/02/17 13:39:59, Route to Pharmacy Electronically, [id number], [facility] [address] Start Date: 06/02/17 Status: Ordered tiZANidine 2 mg oral tablet 2 mg, 1, tablet, By Mouth, Every 8 hours, PRN, # 90 tablet, Refills 3, Tot. Refills 3, Maintenance,as needed for muscle spasm, 02/08/20 9:24:00 EST, Route to Pharmacy Electronically, [facility] #[id number], Partial fill upon patient request, 167... Start [...]
--- OUTSIDE RECORDS SUMMARY | 2023-09-12 11:31 | XMS_ITS | Continuity of Care Document ---
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 Refills 11, Maintenance, 11/24/17 13:49:05 EDT, Aerosol, Route to Pharmacy Electronically, [id number], [facility] [address], Compound Start Date: 11/24/17 Status: Ordered albuterol-ipratropium 3 mg-0.5 mg/3 ml inhalation solution 1 vials, Inhalation, 4 times a day, # 180 mL, 5 Refills, Maintenance, 07/30/19 11:02:00 EDT, [facility] #[id number], 15, INHALE CONTENTS OF 1 VIAL VIA NEBULIZER FOUR TIMES DAILY, 167.64, cm, 04/24/19 16:16:00 EST, Height, 100.4, kg, 08/03/18 10:1... Start Date: 07/30/19 Status: Ordered amLODIPine 10 mg oral tablet 1 tablet, By Mouth, Daily, # 30 tablet, 5 Refills, Maintenance, 05/06/20 12:30:00 EST, [facility] #[id number], 167.64, cm, 03/25/20 14:59:00 EST, Height, 100.4, kg, 08/03/18 10:14:00 EDT, Dry Weight Start Date: 05/06/20 Status: Ordered aspirin 81 mg oral delayed release tablet 81 mg, 1, tablet, By Mouth, Daily, # 30 tablet, Refills 5, Tot. Refills 5, Maintenance, 11/02/19 11:39:00 EDT, Route to Pharmacy Electronically, [facility] #[id number], 167.64, cm, 11/02/19 10:58:00 EDT, Height, 100.4, kg, 08/03/18 10:14:00 EDT,... Start Date: 11/02/19 Status: Ordered bacitracin topical 500 u/gm ointment 1 application, Topically, 4 times a day, # 30 Gm, 0 Refills, Maintenance, 09/02/20 15:20:00 EDT, Ointment, [facility] #69278, Partial fill upon patient request if the prescription is for a schedule II opioid drug., 1 application Topically 4... Start Date: 09/02/20 Stop Date: 09/12/20 Status: Ordered baclofen 10 mg oral tablet 1, tablet, By Mouth, 3 times a day, # 60 tablet, Refills 0, Tot. Refills 0, Maintenance, 02/25/20 13:59:00 EST, Route to Pharmacy Electronically, [facility] #[id number], 167.64, cm, 11/12/19 15:34:00 EDT, Height, 100.4, [...] tablet, 11 Refills, Maintenance, 01/11/20 10:43:00 EDT, [facility] #25398, 167.64, cm, 11/12/19 15:34:00 EDT, Height, 100.4, [...] mL, 0 Refills, Maintenance, [facility] #[id number], 29, SPRAY TWICE IN EACH NOSTRIL FOUR [...] each, 5 Refills, Maintenance, 06/05/18 19:53:47 EDT, [place], 1 sprays Nares, Both 2 times a [...] 11 Refills, Maintenance, 03/02/19 10:19:00 EST, Capsule, [facility] #[id number], 1 capsule By Mouth Daily, 167.64, cm, [...] 4 HOURS NEEDED FOR NAUSEA OR VOMITING, [facility] #83117 Start Date: 12/05/18 Status: Ordered raised toilet [...] Maintenance, 06/02/17 13:39:59, Route to Pharmacy Electronically, [id number], [facility] [address] Start Date: 06/02/17 Status: Ordered tiZANidine 2 mg oral tablet 2 mg, 1, tablet, By Mouth, Every 8 hours, PRN, # 90 tablet, Refills 3, Tot. Refills 3, Maintenance,as needed for muscle spasm, 02/08/20 9:24:00 EST, Route to Pharmacy Electronically, [facility] #[id number], Partial fill upon patient request, 167... Start [...]
--- OUTSIDE RECORDS SUMMARY | 2023-09-12 11:31 | XMS_ITS | Continuity of Care Document ---
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 Refills 11, Maintenance, 11/24/17 13:49:05 EDT, Aerosol, Route to Pharmacy Electronically, [id number], [facility] [address], Compound Start Date: 11/24/17 Status: Ordered albuterol-ipratropium 3 mg-0.5 mg/3 ml inhalation solution 1 vials, Inhalation, 4 times a day, # 180 mL, 5 Refills, Maintenance, 07/30/19 11:02:00 EDT, [facility] #53417, 15, INHALE CONTENTS OF 1 VIAL VIA NEBULIZER FOUR TIMES DAILY, 167.64, cm, 04/24/19 16:16:00 EST, Height, 100.4, kg, 08/03/18 10:1... Start Date: 07/30/19 Status: Ordered amlodipine-benazepril 5 mg-10 mg oral capsule 1 capsule, By Mouth, Daily, To replace prior prescription (amlodipine)., # 30 capsule, 11 Refills, Maintenance, 04/23/21 14:51:00 EST, Capsule, [facility] #81673, Partial fill upon patient request if the prescription is for a schedule II opi... Start Date: 04/23/21 Status: Ordered aspirin 81 mg oral delayed release tablet 81 mg, 1, tablet, By Mouth, Daily, # 30 tablet, Refills 5, Tot. Refills 5, Maintenance, 11/02/19 11:39:00 EDT, Route to Pharmacy Electronically, [facility] #84760, 167.64, cm, 11/02/19 10:58:00 EDT, Height, 100.4, kg, 08/03/18 10:14:00 EDT,... Start Date: 11/02/19 Status: Ordered bacitracin topical 500 u/gm ointment 1 application, Topically, 4 times a day, # 30 Gm, 0 Refills, Maintenance, 09/02/20 15:20:00 EDT, Ointment, [facility] #13873, Partial fill upon patient request if the prescription is for a schedule II opioid drug., 1 application Topically 4... Start Date: 09/02/20 Stop Date: 09/12/20 Status: Ordered baclofen 10 mg oral tablet 1, tablet, By Mouth, 3 times a day, # 60 tablet, Refills 0, Tot. Refills 0, Maintenance, 02/25/20 13:59:00 EST, Route to Pharmacy Electronically, [facility] #78061, 167.64, cm, 11/12/19 15:34:00 EDT, Height, 100.4, [...] tablet, 11 Refills, Maintenance, 01/11/20 10:43:00 EDT, [facility] #[id number], 167.64, cm, 11/12/19 15:34:00 EDT, Height, 100.4, [...] DAILY, # 44 mL, 0 Refills, Maintenance, [facility]93516, 29, SPRAY TWICE IN EACH NOSTRIL FOUR [...] each, 5 Refills, Maintenance, 06/05/18 19:53:47 EDT, [place], 1 sprays Nares, Both 2 times a [...] Acute 03/13/22 14:45:00 EST, 03/20/2213:45:00 EST, Ointment, [facility] #[id number], Partial fill upon patient request if the [...] 11 Refills, Maintenance, 03/02/19 10:19:00 EST, Capsule, [facility] #71158, 1 capsule By Mouth Daily, 167.64, cm, [...] 4 HOURS NEEDED FOR NAUSEA OR VOMITING, [facility] #65846 Start Date: 12/05/18 Status: Ordered raised toilet [...] Maintenance, 06/02/17 13:39:59, Route to Pharmacy Electronically, [id number], [facility] [address] Start Date: 06/02/17 Status: Ordered tiZANidine 2 mg oral tablet 2 mg, 1, tablet, By Mouth, Every 8 hours, PRN, # 90 tablet, Refills 3, Tot. Refills 3, Maintenance,as needed for muscle spasm, 01/30/21 8:11:00 EST, Route to Pharmacy Electronically, [facility] #68249, Partial fill upon patient request, 167... Start [...]
--- OUTSIDE RECORDS SUMMARY | 2023-09-12 11:31 | XMS_ITS | Continuity of Care Document ---
Author Organization [facility] Address [address] [place] [address]- Care Team Providers Care Coroner/Medical Examiner Name Role Phone Cesario VALDEZ, Lisseth Hancock Primary Care Physician [phone] Encounter [facility] Date(s): 09/10/20 - 10/16/[address] [address] [place] Attending Physician: Lisseth Nassar NP Admitting Physician: Lisseth Nassar NP Referring Physician: Lisseth Nassar NP Allergies, Adverse Reactions, Alerts Substance Reaction Severity Status sulfADIAZINE rash Active morphine rash & swelling Active sertraline 1 QT wave change Active sulfa drugs rash Active Bactrim rash Active NSAIDs 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 Active 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 Refills 11, Maintenance, 11/24/17 13:49:05 EDT, Aerosol, Route to Pharmacy Electronically, [id number], [facility] [address], Compound Start Date: 11/24/17 Status: Ordered albuterol-ipratropium 3 mg-0.5 mg/3 ml inhalation solution 1 vials, Inhalation, 4 times a day, # 180 mL, 5 Refills, Maintenance, 07/30/19 11:02:00 EDT, [facility] #[id number], 15, INHALE CONTENTS OF 1 VIAL VIA NEBULIZER FOUR TIMES DAILY, 167.64, cm, 04/24/19 16:16:00 EST, Height, 100.4, kg, 08/03/18 10:1... Start Date: 07/30/19 Status: Ordered amLODIPine 10 mg oral tablet 1 tablet, By Mouth, Daily, # 30 tablet, 5 Refills, Maintenance, 05/06/20 12:30:00 EST, [facility] #55812, 167.64, cm, 03/25/20 14:59:00 EST, Height, 100.4, kg, 08/03/18 10:14:00 EDT, Dry Weight Start Date: 05/06/20 Status: Ordered aspirin 81 mg oral delayed release tablet 81 mg, 1, tablet, By Mouth, Daily, # 30 tablet, Refills 5, Tot. Refills 5, Maintenance, 11/02/19 11:39:00 EDT, Route to Pharmacy Electronically, [facility] #[id number], 167.64, cm, 11/02/19 10:58:00 EDT, Height, 100.4, kg, 08/03/18 10:14:00 EDT,... Start Date: 11/02/19 Status: Ordered bacitracin topical 500 u/gm ointment 1 application, Topically, 4 times a day, # 30 Gm, 0 Refills, Maintenance, 09/02/20 15:20:00 EDT, Ointment, [facility] #56591, Partial fill upon patient request if the prescription is for a schedule II opioid drug., 1 application Topically 4... Start Date: 09/02/20 Stop Date: 09/12/20 Status: Ordered baclofen 10 mg oral tablet 1, tablet, By Mouth, 3 times a day, # 60 tablet, Refills 0, Tot. Refills 0, Maintenance, 02/25/20 13:59:00 EST, Route to Pharmacy Electronically, [facility] #[id number], 167.64, cm, 11/12/19 15:34:00 EDT, Height, 100.4, [...] tablet, 11 Refills, Maintenance, 01/11/20 10:43:00 EDT, [facility] #94974, 167.64, cm, 11/12/19 15:34:00 EDT, Height, 100.4, [...] Refills, Maintenance, [facility], 29, SPRAY TWICE IN EACH NOSTRIL FOUR [...] 11 Refills, Maintenance, 03/02/19 10:19:00 EST, Capsule, [facility] #76193, 1 capsule By Mouth Daily, 167.64, cm, [...] 4 HOURS NEEDED FOR NAUSEA OR VOMITING, [facility] #43604 Start Date: 12/05/18 Status: Ordered raised toilet [...] Maintenance, 06/02/17 13:39:59, Route to Pharmacy Electronically, [id number], [facility] [address] Start Date: 06/02/17 Status: Ordered tiZANidine 2 mg oral tablet 2 mg, 1, tablet, By Mouth, Every 8 hours, PRN, # 90 tablet, Refills 3, Tot. Refills 3, Maintenance,as needed for muscle spasm, 02/08/20 9:24:00 EST, Route to Pharmacy Electronically, [facility] #75455, Partial fill upon patient request, 167... Start [...]
--- OUTSIDE RECORDS SUMMARY | 2023-09-12 11:31 | XMS_ITS | Continuity of Care Document ---
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 Start Date: 01/26/23 Status: Ordered albuterol CFC free 90 mcg/inh inhalation aerosol 2, puffs, Inhalation, 4 times a day, PRN, Dispense brand as required by insurance, # 1 each, Refills 11, Tot. Refills 11, Maintenance, 01/26/23 14:00:00 EST, Aerosol, Route to Pharmacy Electronically, [id number], [facility]. Start Date: 01/26/23 Status: Ordered albuterol-ipratropium 3 mg-0.5 mg/3 ml inhalation solution 1 vials, Inhalation, 4 times a day, # 180 mL, 11 Refills, Maintenance, 01/27/23 9:25:00 EST, [facility] #53275, 15, 1 vials Inhalation 4 times a [...] tablet, 6 Refills, Maintenance, 12/07/22 16:46:00 EDT, [facility] #35294, 165, cm, 12/06/22 17:39:00 EDT, Height, 88.2, kg, 05/26/22 7:52:00EDT, Dry Weight Start Date: 12/07/22 Status: Ordered amlodipine-benazepril 5 mg-10 mg oral capsule 1 capsule, By Mouth, Daily, To replace prior prescription (amlodipine)., # 90 capsule, 11 Refills, Maintenance, 03/01/22 16:04:00 EST, Capsule, [facility] #29611, Partial fill upon patient request if the [...] tablet, 3 Refills, Maintenance, 01/26/23 14:00:00 EST, [facility] #71479, 165, cm, 01/26/23 13:31:00 EST, Height, 88.2, [...] each, 11 Refills, Maintenance, 09/25/21 11:17:00 EDT, [place], [facility] #65558, 1 sprays Nares, Both 2 times a day,x30 days, 165, cm, 09/25/21 11:04:00 EDT, Height, 96, kg, 07/13/21 10:52:00 EDT, Dry... Start Date: 09/25/21 Stop Date: 09/20/22 Status: Ordered fluconazole 150 mg oral tablet 1 tablet = 150 mg, By Mouth, Once, Repeat dose if still having symptoms in 72 hours, # 2 tablet, 1 Refills, Soft Stop, 01/26/23 14:19:00 EST, Tablet, [facility] #50840, Partial fill upon patient request if the [...] 11 Refills, Maintenance, 01/26/23 14:04:00 EST, Aerosol, [facility] #12426, Partial fill upon patient request if the prescription is for a s... Start Date: 01/26/23 Status: Ordered mupirocin 2% topical ointment 1 application, Topically, 3 times a day, # 30 Gm, 2 Refills, Acute 03/13/23 15:24:00 EST, 09/01/22 15:23:00 EDT, Ointment, [facility] #57433, Partial fill upon patient request if the [...] RX, # 180 tablet, 0 Refills, Maintenance, 01/27/23... Start Date: 01/27/23 Stop Date: 02/26/23 Status: Ordered Prevacid 30 mg oral enteric coated capsule 1 capsule = 30 mg, By Mouth, Daily, # 90 capsule, 4 Refills, Maintenance, 01/26/23 14:02:00 EST, [facility] #44135, 165, cm, 01/26/23 13:31:00 EST, Height, 88.2, [...] 01/26/23 14:02:00 EST, Route to Pharmacy Electronically, [facility] #[id number], 165, cm, 01/26/23 13:31:00 EST, Height, 88.2, [...] Team Personnel Name: Tristin Hunt RN Position: [facility] RN Member Role: Primary Care Nurse Name: Lisseth Nassar NP Position: [facility] PCO Associate Professional Member Role: PCP Address: Address: [address] [place] [address]- Name: Edenilson Puckett MD Position: [facility] PRINTING GREY CLOTH TENDER MD Member Role: [employer] PRINTING GREY CLOTH TENDER Physician Address: Address: [address] [place] [address]- Name: Jovana aPrk RN Position: [facility] RN Member Role: Primary Care Nurse Name: Chidi Clark DO Position: [facility] Renal MD Member Role: Lifetime Consulting Physician Address: Address: [address] [place] [address] [address] [facility] [place] [address]- Name: Mireya Torres RN Position: S RN Member Role: Primary Care Nurse Name: Starr Harper RN Position: [facility] SN RN Member Role: Primary Care Nurse Name: Kelly Maddox RN Position: S RN Member Role: Primary Care Nurse Care Team Related Persons Name: MARYA ADRIAN Address: home [address] [place] [id number] Name: MORALES HOWELL Address: home [address] [place] [id number]
--- OUTSIDE RECORDS SUMMARY | 2023-09-12 11:31 | XMS_ITS | Continuity of Care Document ---
Author Organization [facility] Address [address] [place] [address]- Care Team Providers Care Surgical Dressing Maker Name Role Phone Cesario VALDEZ, Lisseth Hancock Primary Care Physician [phone] Encounter [facility] [place] Date(s): 08/04/23 - 09/03/[address] [address]- Allergies, Adverse Reactions, Alerts Substance Reaction Severity Status sulfADIAZINE rash Active sertraline 1 QT wave change Active fentanyl topical passed out Active sulfa drugs rash Active Haldol Agitation Active Bactrim rash Active NSAIDs 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 Active 1 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 Start Date: 07/10/21 Status: Ordered amitriptyline 50 mg oral tablet 1 tablet = 50 mg, By Mouth, Daily at bedtime, # 90 tablet, 0 Refills, Maintenance, 08/19/23 21:23:00 EDT, Tablet, Partial fill upon patient request if the prescription is for a schedule II opioid drug. Start Date: 08/19/23 Status: Ordered aspirin 81 mg oral delayed release tablet 81 mg, 1, tablet, By Mouth, Daily, # 30 tablet, Refills 3, Tot. Refills 3, Maintenance, 08/24/23 12:23:00 EDT, Route to Pharmacy Electronically, [facility], Partial fill upon patient request if the prescription is for a schedule II opioi... Start Date: 08/24/23 Stop Date: 12/22/23 Status: Ordered Bedside Commode See Instructions, # [...] opioid drug. Start Date: 05/03/22 Status: Ordered clonazePAM 1 mg oral tablet 1 tablet = 1 mg, By Mouth, 3 times a day, To use sparingly; to fill on/after 08/03/2023, # 90 tablet, 1 Refills, Maintenance, 08/03/23 8:28:00 EDT, Tablet, [facility] #[id number], Partial fill upon patient request if the prescription is for a sche... Start Date: 08/03/23 Status: Ordered Compression Stockings See Instructions, # [...] opioid drug. Start Date: 07/10/21 Status: Ordered Fesoterodine 8 mg oral tablet, extended release TAKE 1 TABLET BY MOUTH DAILY Start Date: 08/19/23 Status: Ordered fluticasone 250 mcg/inh inhalation powder 1 puffs, Inhalation, 2 times a day, dispense brand as required by insurance, # 120 each, 11 Refills, Maintenance, 04/29/23 9:44:00 EST, Powder, [facility] #[id number], Partial fill upon patient request if the prescription is for a schedule II opi... Start Date: 04/29/23 Status: Ordered gabapentin 300 mg oral capsule 300 mg, 1, capsule, By Mouth, Daily at bedtime, Refills 0, Maintenance, 05/03/22 14:39:00 EST, Partial fill upon patient request if the prescription is for a schedule II opioid drug. Start Date: 05/03/22 Status: Ordered Home Blood Pressure Monitor See Instructions, # 1 each, Refills 0, Tot. Refills 0, Maintenance, Use to measure blood pressure at rest daily. Dx HTN on Rx I10, 11/01/19 17:06:00 EDT, Supply Start Date: 11/01/19 Status: Ordered metoprolol 25 mg oral tablet, extended release 25 mg, 1, tablet, By Mouth, Daily, # 30 tablet, Refills 3, Tot. Refills 3, Maintenance, 08/24/23 12:23:00 EDT, Route to Pharmacy Electronically, [facility], Partial fill upon patient request if the prescription is for a schedule II opioi... Start Date: 08/24/23 Stop Date: 12/22/23 Status: Ordered Nebulizer/Compressor See Instructions, # 1 each, Refills 11, Tot. Refills 11, Maintenance, please dispense nebulizer supplies to be used with albuterol Dx J45.909, 10/22/20 9:02:00 EDT, Compound Start Date: 10/22/20 Status: Ordered Nebulizer/Compressor See Instructions, # 1 each, Maintenance, please dispense one nebulizer to be used with albuterol DxJ45.909, 05/07/19 10:44:00 EST, Compound Start Date: 05/07/19 Status: Ordered Oxybutynin = 8 mg, By Mouth, Daily at bedtime, 0 Refills, Maintenance, 08/19/23 22:38:00 EDT, Partial fill upon patient request if the prescription is for a schedule II opioid drug. Start Date: 08/19/23 Status: Ordered oxyCODONE 15 mg oral tablet 1 tablet = 15 mg, By Mouth, Every 4 hours, PRN as needed for pain, Pt on narcotic contract; MassPatchecked; Dx chronic low back pain; may fill less; May fill on/after 08/31/2023 to replace previous lost RX, # 180 tablet, 0 Refills, Maintenance, 08/30... Start Date: 08/31/23 Stop Date: 09/30/23 Status: Ordered pantoprazole 40 mg oral delayed release tablet 1 tablet = 40 mg, By Mouth, 2 times a day, to replace lansoprozole, # 60 tablet, 6 Refills, Maintenance, 06/06/23 10:02:00 EDT, CR Tablet, 165, cm, 05/30/23 14:22:00 EDT, Height, 88.2, kg, 05/26/22 7:52:00 EDT, Dry Weight Start Date: 06/06/23 Stop Date: 01/02/24 Status: Ordered pentoxifylline 400 mg oral tablet, extended release 400 mg, 1, tablet, By Mouth, 3 times a day, # 270 tablet, Refills 0, Maintenance, 08/19/23 21:26:00EDT, Partial fill upon patient request if the prescription is for a schedule II opioid drug. Start Date: 08/19/23 Status: Ordered QUEtiapine 200 mg oral tablet 200 mg, 1, tablet, TAKE 1 TABLET BY MOUTH AT BEDTIME Start Date: 08/19/23 Status: Ordered QUEtiapine 50 mg oral tablet, extended release 1 tablet = 50 mg, By Mouth, Daily, # 30 tablet, 0 Refills, Maintenance, 08/19/23 22:12:00 EDT, ER Tablet, Partial fill upon patient request if the prescription is for a schedule II opioid drug. Start Date: 08/19/23 Status: Ordered raised toilet seat raised toilet [...] 01/26/23 14:02:00 EST, Route to Pharmacy Electronically, [facility] #[id number], 165, cm, 01/26/23 13:31:00 EST, Height, 88.2, [...] Care team information Care Team Personnel Name: Siria Lopes RN Position: [facility] RN Member Role: Primary Care Nurse Name: Tristin Hunt RN Position: [facility] RN Member Role: Primary Care Nurse Name: Lisseth Nassar NP Position: [facility] PCO Associate Professional Member Role: PCP Address: Address: [address] [place] [address]- Name: Edenilson Puckett MD Position: [facility] RESPIRATORY SUPPORT TECHNICIAN MD Member Role: Lifetime RESPIRATORY SUPPORT TECHNICIAN Physician Address: Address: [address] [place] [address]- Name: Jovana Park RN Position: [facility] SN RN Member Role: Primary Care Nurse Name: Ana Maria Grady RN Position: [facility] RN Member Role: Primary Care Nurse Name: Chidi Clark DO Position: [facility] Renal MD Member Role: Lifetime Consulting Physician Address: Address: [address] [place], [place] [address] [place] [address]- Name: Mireya Torres RN Position: [facility] RN Member Role: Primary Care Nurse Name: Starr Harper RN Position: [facility] [place] Nurse Member Role: Primary Care Nurse Name: Tristin Hill RN Position: [facility] RN Member Role: Primary Care Nurse Name: Kelly Maddox RN Position: [facility] RN Member Role: Primary Care Nurse Care Team Related Persons Name: MARYA ADRIAN Address: [place] [address] Name: MORALES HOWELL Address: home [address] [place] [id number]
--- OUTSIDE RECORDS SUMMARY | 2023-09-12 11:31 | XMS_ITS | Continuity of Care Document ---
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 Start Date: 10/19/21 Status: Ordered albuterol-ipratropium 3 mg-0.5 mg/3 ml inhalation solution 1 vials, Inhalation, 4 times a day, # 180 mL, 5 Refills, Maintenance, 07/30/19 11:02:00 EDT, [facility] #[id number], 15, INHALE CONTENTS OF 1 VIAL VIA [...] 10/12/21 16:19:00 EDT, Route to Pharmacy Electronically, [facility] #[id number], 165, cm, 09/25/21 11:04:00EDT, Height, 96, kg, 07/13/21 10:52:00 EDT, Dry Weight Start Date: 10/12/21 Status: Ordered amlodipine-benazepril 5 mg-10 mg oral capsule 1 capsule, By Mouth, Daily, To replace prior prescription (amlodipine)., # 30 capsule, 11 Refills, Maintenance, 04/23/21 14:51:00 EST, Capsule, [facility] #97014, Partial fill upon patient request if the prescription is for a schedule II opi... Start Date: 04/23/21 Status: Ordered aspirin 81 mg oral delayed release tablet 81 mg, 1, tablet, By Mouth, Daily, # 30 tablet, Refills 5, Tot. Refills 5, Maintenance, 11/02/19 11:39:00 EDT, Route to Pharmacy Electronically, [facility] #71633, 167.64, cm, 11/02/19 10:58:00 EDT, Height, 100.4, [...] tablet, 11 Refills, Maintenance, 09/25/21 11:17:00 EDT, [facility] #77505, 165, cm, 09/25/21 11:04:00 EDT, Height, 96, [...] each, 11 Refills, Maintenance, 09/25/21 11:17:00 EDT, [place], [facility] #[id number], 1 sprays Nares, Both 2 times a [...] Acute 03/13/22 14:45:00 EST, 03/20/2213:45:00 EST, Ointment, [facility] #07019, Partial fill upon patient request if the [...] 11 Refills, Maintenance, 03/02/19 10:19:00 EST, Capsule, [facility] #22789, 1 capsule By Mouth Daily, 167.64, cm, [...] 0 Refills, Maintenance, 10/19/21 12:07:00 EDT, Tablet, [facility] #54121, Par... Start Date: 10/19/21 Status: Ordered Paxlovid 150 mg-100 mg oral tablet See Instructions, 300mg nirmatrelvir (two 150mg tablets) with 100mg ritonavir (one tablet). All 3 tablets taken together twice daily By Mouth for 5 days, with or without food, # 30 tablet, 0 Refills,Maintenance, 10/18/21 16:41:00 EDT, [facility] Start Date: 10/18/21 Status: Ordered Prevacid [...] 09/25/21 11:17:00 EDT, Route to Pharmacy Electronically, [facility] #[id number], 165, cm, 09/25/2210:04:00 EDT, Height, 96, kg, 07/13/21 10:52:00 EDT... Start Date: 09/25/21 Status: Ordered tiZANidine 2 mg oral tablet 2 mg, 1, tablet, By Mouth, Every 8 hours, PRN, # 90 tablet, Refills 3, Tot. Refills 3, Maintenance,as needed for muscle spasm, 06/18/21 10:33:00 EDT, Route to Pharmacy Electronically, [facility] #[id number], Partial fill upon patient request, 16... Start [...] x disease)(Confirmed) Active 5, Para 3205. section. 9/7/93 section. 11/05/97 section due to toxemia. 10/28/00 [...]
--- OUTSIDE RECORDS SUMMARY | 2023-09-12 11:31 | XMS_ITS | Continuity of Care Document ---
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 Start Date: 01/26/23 Status: Ordered albuterol CFC free 90 mcg/inh inhalation aerosol 2, puffs, Inhalation, 4 times a day, PRN, Dispense brand as required by insurance, # 1 each, Refills 11, Tot. Refills 11, Maintenance, 01/26/23 14:00:00 EST, Aerosol, Route to Pharmacy Electronically, [id number], [facility]. Start Date: 01/26/23 Status: Ordered albuterol-ipratropium 3 mg-0.5 mg/3 ml inhalation solution 1 vials, Inhalation, 4 times a day, # 180 mL, 11 Refills, Maintenance, 01/27/23 9:25:00 EST, [email or web address] #[id number], 15, 1 vials Inhalation 4 times a [...] tablet, 6 Refills, Maintenance, 12/07/22 16:46:00 EDT, [facility] #[id number], 165, cm, 12/06/22 17:39:00 EDT, Height, 88.2, kg, 05/26/22 7:52:00EDT, Dry Weight Start Date: 12/07/22 Status: Ordered amlodipine-benazepril 5 mg-10 mg oral capsule 1 capsule, By Mouth, Daily, To replace prior prescription (amlodipine)., # 90 capsule, 11 Refills, Maintenance, 03/01/22 16:04:00 EST, Capsule, [facility] #[id number], Partial fill upon patient request if the [...] Maintenance, 01/26/23 14:00:00 EST, [facility] #85053, 165, cm, 01/26/23 13:31:00 EST, Height, 88.2, [...] each, 11 Refills, Maintenance, 09/25/21 11:17:00 EDT, [place], [facility] #09796, 1 sprays Nares, Both 2 times a day,x30 days, 165, cm, 09/25/21 11:04:00 EDT, Height, 96, kg, 07/13/21 10:52:00 EDT, Dry... Start Date: 09/25/21 Stop Date: 09/20/22 Status: Ordered fluconazole 150 mg oral tablet 1 tablet = 150 mg, By Mouth, Once, Repeat dose if still having symptoms in 72 hours, # 2 tablet, 1 Refills, Soft Stop, 01/26/23 14:19:00 EST, Tablet, [facility] #55871, Partial fill upon patient request if the [...] 11 Refills, Maintenance, 01/26/23 14:04:00 EST, Aerosol, [facility] #[id number], Partial fill upon patient request if the [...] capsule, 4 Refills, Maintenance, 01/26/23 14:02:00 EST, [id number], 165, cm, 01/26/23 13:31:00 EST, Height, 88.2, [...] 01/26/23 14:02:00 EST, Route to Pharmacy Electronically, [facility] #[id number], 165, cm, 01/26/23 13:31:00 EST, Height, 88.2, [...] NP Position: [facility] PCO Associate Professional Member Role: PCP Address: Address: [address] [place] [address]- Name: Edenilson Puckett MD Position: [facility] SUBSTATION OPERATOR MD Member Role: Lifetime SUBSTATION OPERATOR Physician Address: Address: [address] [place] [address]- Name: Jovana Park RN Position: [facility] SN RN Member Role: Primary Care Nurse Name: Chidi Clark DO Position: [facility] Renal MD Member Role: Lifetime Consulting Physician Address: Address: [address] [place], [place] [address]E [facility] [place] [address]- Name: Mireya Torres RN Position: S RN Member Role: Primary Care Nurse Name: Starr Harper RN Position: [facility] SN RN Member Role: Primary Care Nurse Name: Kelly Maddox RN Position: S RN Member Role: Primary Care Nurse Care Team Related Persons Name: KAYLAH MARYA Address: [address] [place] [address] Name: MORALES HOWELL Address: home [address] [place] [address]
--- OUTSIDE RECORDS SUMMARY | 2023-09-12 11:31 | XMS_ITS | Continuity of Care Document ---
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 Refills 11, Maintenance, 11/24/17 13:49:05 EDT, Aerosol, Route to Pharmacy Electronically, [id number], [email or web address] [address], Compound Start Date: 11/24/17 Status: Ordered albuterol-ipratropium 3 mg-0.5 mg/3 ml inhalation solution 1 vials, Inhalation, 4 times a day, # 180 mL, 5 Refills, Maintenance, 07/30/19 11:02:00 EDT, [facility] #[id number], 15, INHALE CONTENTS OF 1 VIAL VIA NEBULIZER FOUR TIMES DAILY, 167.64, cm, 04/24/19 16:16:00 EST, Height, 100.4, kg, 08/03/18 10:1... Start Date: 07/30/19 Status: Ordered amLODIPine 10 mg oral tablet 1 tablet, By Mouth, Daily, # 30 tablet, 6 Refills, Maintenance, 10/04/19 12:22:00 EDT, [facility] #[id number], 167.64, cm, 04/24/19 16:16:00 EST, Height, 100.4, kg, 08/03/18 10:14:00 EDT, Dry Weight Start Date: 10/04/19 Status: Ordered aspirin 81 mg oral delayed release tablet 81 mg, 1, tablet, By Mouth, Daily, # 30 tablet, Refills 5, Tot. Refills 5, Maintenance, 11/02/19 11:39:00 EDT, Route to Pharmacy Electronically, [facility] #[id number], 167.64, cm, 11/02/19 10:58:00 EDT, Height, 100.4, kg, 08/03/18 10:14:00 EDT,... Start Date: 11/02/19 Status: Ordered baclofen 10 mg oral tablet 1, tablet, By Mouth, 3 times a day, # 60 tablet, Refills 0, Tot. Refills 0, Maintenance, 02/25/20 13:59:00 EST, Route to Pharmacy Electronically, [facility] #[id number], 167.64, cm, 11/12/19 15:34:00 EDT, Height, 100.4, [...] tablet, 11 Refills, Maintenance, 01/11/20 10:43:00 EDT, [facility] #[id number], 167.64, cm, 11/12/19 15:34:00 EDT, Height, 100.4, [...] DAILY, # 44 mL, 0 Refills, Maintenance, [facility] #76648, 29, SPRAY TWICE IN EACH NOSTRIL FOUR [...] each, 5 Refills, Maintenance, 06/05/18 19:53:47 EDT, [place], 1 sprays Nares, Both 2 times a [...] 11 Refills, Maintenance, 03/02/19 10:19:00 EST, Capsule, [facility] #00172, 1 capsule By Mouth Daily, 167.64, cm, [...] 4 HOURS NEEDED FOR NAUSEA OR VOMITING, [id number] Start Date: 12/05/18 Status: Ordered raised toilet [...] Maintenance, 06/02/17 13:39:59, Route to Pharmacy Electronically, [id number], [facility] [address] Start Date: 06/02/17 Status: Ordered tiZANidine 2 mg oral tablet 2 mg, 1, tablet, By Mouth, Every 8 hours, PRN, # 90 tablet, Refills 3, Tot. Refills 3, Maintenance,as needed for muscle spasm, 02/08/20 9:24:00 EST, Route to Pharmacy Electronically, [facility] #[id number], Partial fill upon patient request, 167... Start [...]
--- OUTSIDE RECORDS SUMMARY | 2023-09-12 11:32 | XMS_ITS | Continuity of Care Document ---
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 Start Date: 01/26/23 Status: Ordered albuterol CFC free 90 mcg/inh inhalation aerosol 2, puffs, Inhalation, 4 times a day, PRN, Dispense brand as required by insurance, # 1 each, Refills 11, Tot. Refills 11, Maintenance, 01/26/23 14:00:00 EST, Aerosol, Route to Pharmacy Electronically, [id number], [facility]. Start Date: 01/26/23 Status: Ordered albuterol-ipratropium 3 mg-0.5 mg/3 ml inhalation solution 1 vials, Inhalation, 4 times a day, # 180 mL, 11 Refills, Maintenance, 01/27/23 9:25:00 EST, [facility] #[id number], 15, 1 vials Inhalation 4 times a [...] tablet, 6 Refills, Maintenance, 12/07/22 16:46:00 EDT, [facility] #[id number], 165, cm, 12/06/22 17:39:00 EDT, Height, 88.2, kg, 05/26/22 7:52:00EDT, Dry Weight Start Date: 12/07/22 Status: Ordered amlodipine-benazepril 5 mg-10 mg oral capsule 1 capsule, By Mouth, Daily, TO. REPLACE BEFORE PRESCRIPTION AMLODIPINE, # 90 capsule, 0 Refills, Maintenance, 04/05/23 10:10:00 EST, [facility] #64079, 90, TAKE 1 CAPSULE BY MOUTH DAILY [...] tablet, 3 Refills, Maintenance, 01/26/23 14:00:00 EST, [facility] #[id number], 165, cm, 01/26/23 13:31:00 EST, Height, 88.2, kg, 05/26/22 7:52:00 EDT, Dry Weight Start Date: 01/26/23 Stop Date: 01/21/24 Status: Ordered clonazePAM 1 mg oral tablet 1 tablet = 1 mg, By Mouth, 3 times a day, To use sparingly; to fill on/after 04/03/2023, # 90 tablet, 1 Refills, Maintenance, 03/29/23 12:46:00 EST, Tablet, [facility] #96221, Partial fill upon patient request if the [...] each, 11 Refills, Maintenance, 09/25/21 11:17:00 EDT, [place], [facility] #97094, 1 sprays Nares, Both 2 times a day,x30 days, 165, cm, 09/25/21 11:04:00 EDT, Height, 96, kg, 07/13/21 10:52:00 EDT, Dry... Start Date: 09/25/21 Stop Date: 09/20/22 Status: Ordered fluconazole 150 mg oral tablet 1 tablet = 150 mg, By Mouth, Once, Repeat dose if still having symptoms in 72 hours, # 2 tablet, 1 Refills, Soft Stop, 01/26/23 14:19:00 EST, Tablet, [facility] #87645, Partial fill upon patient request if the [...] capsule, 4 Refills, Maintenance, 01/26/23 14:02:00 EST, [facility] #44531, 165, cm, 01/26/23 13:31:00 EST, Height, 88.2, kg, 05/26/22 7:52:00 EDT, Dry Weight Start Date: 01/26/23 Stop Date: 04/20/24 Status: Ordered Pulmicort Flexhaler 180 mcg 1 puffs, Inhalation, 2 times a day, # 3 each, 11 Refills, Maintenance, 04/11/23 10:54:00 EST, Powder, [facility] #[id number], Partial fill upon patient request if the [...] 01/26/23 14:02:00 EST, Route to Pharmacy Electronically, [facility] #[id number], 165, cm, 01/26/23 13:31:00 EST, Height, 88.2, [...] Care Nurse Name: Lisseth Nassar NP Position: [facility] PCO Associate Professional Member Role: PCP Address: Address: [address] [place] [address]- Name: Edenilson Puckett MD Position: [facility] ACID STRENGTH INSPECTOR MD Member Role: Lifetime ACID STRENGTH INSPECTOR Physician Address: Address: [address] [place] [address]- Name: Jovana Park RN Position: [facility] SN RN Member Role: Primary Care Nurse Name: Chidi Clark DO Position: [facility] Renal MD Member Role: Lifetime Consulting Physician Address: Address: [address] [place], [place] [address] [place] [address]- Name: Mireya Torres RN Position: S RN Member Role: Primary Care Nurse Name: Starr Harper RN Position: [facility] SN RN Member Role: Primary Care Nurse Name: Kelly Maddox RN Position: S RN Member Role: Primary Care Nurse Care Team Related Persons Name: KAYLAH MARYA Address: home [address] [place] [address] Name: MORALES HOWELL Address: home [address] [place] [address]
--- OUTSIDE RECORDS SUMMARY | 2023-09-12 11:32 | XMS_ITS | Continuity of Care Document ---
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 Refills 11, Maintenance, 11/24/17 13:49:05 EDT, Aerosol, Route to Pharmacy Electronically, [id number], [facility] [id number], Compound Start Date: 11/24/17 Status: Ordered albuterol-ipratropium 3 mg-0.5 mg/3 ml inhalation solution 1 vials, Inhalation, 4 times a day, # 180 mL, 5 Refills, Maintenance, 07/30/19 11:02:00 EDT, [facility] #[id number], 15, INHALE CONTENTS OF 1 VIAL VIA NEBULIZER FOUR TIMES DAILY, 167.64, cm, 04/24/19 16:16:00 EST, Height, 100.4, kg, 08/03/18 10:1... Start Date: 07/30/19 Status: Ordered amLODIPine 10 mg oral tablet 1 tablet, By Mouth, Daily, # 30 tablet, 6 Refills, Maintenance, 10/04/19 12:22:00 EDT, [facility] #[id number], 167.64, cm, 04/24/19 16:16:00 EST, Height, 100.4, kg, 08/03/18 10:14:00 EDT, Dry Weight Start Date: 10/04/19 Status: Ordered aspirin 81 mg oral delayed release tablet 81 mg, 1, tablet, By Mouth, Daily, # 30 tablet, Refills 5, Tot. Refills 5, Maintenance, 11/02/19 11:39:00 EDT, Route to Pharmacy Electronically, [facility] #[id number], 167.64, cm, 11/02/19 10:58:00 EDT, Height, 100.4, kg, 08/03/18 10:14:00 EDT,... Start Date: 11/02/19 Status: Ordered baclofen 10 mg oral tablet 1, tablet, By Mouth, 3 times a day, # 60 tablet, Refills 0, Tot. Refills 0, Maintenance, 02/25/20 13:59:00 EST, Route to Pharmacy Electronically, [facility] #[id number], 167.64, cm, 11/12/19 15:34:00 EDT, Height, 100.4, [...] tablet, 11 Refills, Maintenance, 01/11/20 10:43:00 EDT, [facility] #[id number], 167.64, cm, 11/12/19 15:34:00 EDT, Height, 100.4, [...] DAILY, # 44 mL, 0 Refills, Maintenance, [facility] #[id number], 29, SPRAY TWICE IN EACH NOSTRIL FOUR [...] each, 5 Refills, Maintenance, 06/05/18 19:53:47 EDT, [place], 1 sprays Nares, Both 2 times a [...] 11 Refills, Maintenance, 03/02/19 10:19:00 EST, Capsule, [facility] #[id number], 1 capsule By Mouth Daily, 167.64, cm, [...] 4 HOURS NEEDED FOR NAUSEA OR VOMITING, [id number] Start Date: 12/05/18 Status: Ordered raised toilet [...] Maintenance, 06/02/17 13:39:59, Route to Pharmacy Electronically, [id number], [facility] [address] Start Date: 06/02/17 Status: Ordered tiZANidine 2 mg oral tablet 2 mg, 1, tablet, By Mouth, Every 8 hours, PRN, # 90 tablet, Refills 3, Tot. Refills 3, Maintenance,as needed for muscle spasm, 02/08/20 9:24:00 EST, Route to Pharmacy Electronically, [facility] #[id number], Partial fill upon patient request, 167... Start [...]
--- OUTSIDE RECORDS SUMMARY | 2023-09-12 11:32 | XMS_ITS | Continuity of Care Document ---
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 Refills 11, Maintenance, 11/24/17 13:49:05 EDT, Aerosol, Route to Pharmacy Electronically, [id number], [facility] [id number], Compound Start Date: 11/24/17 Status: Ordered albuterol-ipratropium 3 mg-0.5 mg/3 ml inhalation solution 1 vials, Inhalation, 4 times a day, # 180 mL, 5 Refills, Maintenance, 07/30/19 11:02:00 EDT, [facility] #[id number], 15, INHALE CONTENTS OF 1 VIAL VIA NEBULIZER FOUR TIMES DAILY, 167.64, cm, 04/24/19 16:16:00 EST, Height, 100.4, kg, 08/03/18 10:1... Start Date: 07/30/19 Status: Ordered amLODIPine 10 mg oral tablet 1 tablet, By Mouth, Daily, # 30 tablet, 5 Refills, Maintenance, 05/06/20 12:30:00 EST, [facility] #[id number], 167.64, cm, 03/25/20 14:59:00 EST, Height, 100.4, kg, 08/03/18 10:14:00 EDT, Dry Weight Start Date: 05/06/20 Status: Ordered aspirin 81 mg oral delayed release tablet 81 mg, 1, tablet, By Mouth, Daily, # 30 tablet, Refills 5, Tot. Refills 5, Maintenance, 11/02/19 11:39:00 EDT, Route to Pharmacy Electronically, [facility] #[id number], 167.64, cm, 11/02/19 10:58:00 EDT, Height, 100.4, kg, 08/03/18 10:14:00 EDT,... Start Date: 11/02/19 Status: Ordered bacitracin topical 500 u/gm ointment 1 application, Topically, 4 times a day, # 30 Gm, 0 Refills, Maintenance, 09/02/20 15:20:00 EDT, Ointment, [facility] #[id number], Partial fill upon patient request if the prescription is for a schedule II opioid drug., 1 application Topically 4... Start Date: 09/02/20 Stop Date: 09/12/20 Status: Ordered baclofen 10 mg oral tablet 1, tablet, By Mouth, 3 times a day, # 60 tablet, Refills 0, Tot. Refills 0, Maintenance, 02/25/20 13:59:00 EST, Route to Pharmacy Electronically, [facility] #[id number], 167.64, cm, 11/12/19 15:34:00 EDT, Height, 100.4, [...] tablet, 11 Refills, Maintenance, 01/11/20 10:43:00 EDT, [facility] #[id number], 167.64, cm, 11/12/19 15:34:00 EDT, Height, 100.4, [...] DAILY, # 44 mL, 0 Refills, Maintenance, [facility], 29, SPRAY TWICE IN EACH NOSTRIL FOUR [...] each, 5 Refills, Maintenance, 06/05/18 19:53:47 EDT, [place], 1 sprays Nares, Both 2 times a [...] 11 Refills, Maintenance, 03/02/19 10:19:00 EST, Capsule, [facility] #[id number], 1 capsule By Mouth Daily, 167.64, cm, [...] 4 HOURS NEEDED FOR NAUSEA OR VOMITING, [facility] #[id number] Start Date: 12/05/18 Status: Ordered raised toilet [...] Maintenance, 06/02/17 13:39:59, Route to Pharmacy Electronically, [id number], [facility] [address] Start Date: 06/02/17 Status: Ordered tiZANidine 2 mg oral tablet 2 mg, 1, tablet, By Mouth, Every 8 hours, PRN, # 90 tablet, Refills 3, Tot. Refills 3, Maintenance,as needed for muscle spasm, 02/08/20 9:24:00 EST, Route to Pharmacy Electronically, [facility] #[id number], Partial fill upon patient request, 167... Start [...]
--- OUTSIDE RECORDS SUMMARY | 2023-09-12 11:32 | XMS_ITS | Continuity of Care Document ---
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 Refills 11, Maintenance, 11/24/17 13:49:05 EDT, Aerosol, Route to Pharmacy Electronically, [id number], [facility] [address], Compound Start Date: 11/24/17 Status: Ordered albuterol-ipratropium 3 mg-0.5 mg/3 ml inhalation solution 1 vials, Inhalation, 4 times a day, # 180 mL, 5 Refills, Maintenance, 07/30/19 11:02:00 EDT, [facility] #[id number], 15, INHALE CONTENTS OF 1 VIAL VIA NEBULIZER FOUR TIMES DAILY, 167.64, cm, 04/24/19 16:16:00 EST, Height, 100.4, kg, 08/03/18 10:1... Start Date: 07/30/19 Status: Ordered amLODIPine 10 mg oral tablet 1 tablet, By Mouth, Daily, # 90 tablet, 1 Refills, Maintenance, 01/27/21 9:34:00 EST, [facility] #[id number], 167.64, cm, 09/03/20 14:59:00 EDT, Height Start Date: 01/27/21 Status: Ordered aspirin 81 mg oral delayed release tablet 81 mg, 1, tablet, By Mouth, Daily, # 30 tablet, Refills 5, Tot. Refills 5, Maintenance, 11/02/19 11:39:00 EDT, Route to Pharmacy Electronically, [facility] #[id number], 167.64, cm, 11/02/19 10:58:00 EDT, Height, 100.4, kg, 08/03/18 10:14:00 EDT,... Start Date: 11/02/19 Status: Ordered bacitracin topical 500 u/gm ointment 1 application, Topically, 4 times a day, # 30 Gm, 0 Refills, Maintenance, 09/02/20 15:20:00 EDT, Ointment, [facility] #[id number], Partial fill upon patient request if the prescription is for a schedule II opioid drug., 1 application Topically 4... Start Date: 09/02/20 Stop Date: 09/12/20 Status: Ordered baclofen 10 mg oral tablet 1, tablet, By Mouth, 3 times a day, # 60 tablet, Refills 0, Tot. Refills 0, Maintenance, 02/25/20 13:59:00 EST, Route to Pharmacy Electronically, [facility] #[id number], 167.64, cm, 11/12/19 15:34:00 EDT, Height, 100.4, [...] tablet, 11 Refills, Maintenance, 01/11/20 10:43:00 EDT, [facility] #[id number], 167.64, cm, 11/12/19 15:34:00 EDT, Height, 100.4, [...] 0 Refills, Maintenance, [facility] #[id number], 29, SPRAY TWICE IN EACH NOSTRIL FOUR [...] each, 5 Refills, Maintenance, 06/05/18 19:53:47 EDT, [place], 1 sprays Nares, Both 2 times a [...] 11 Refills, Maintenance, 03/02/19 10:19:00 EST, Capsule, [facility] #00903, 1 capsule By Mouth Daily, 167.64, cm, [...] 4 HOURS NEEDED FOR NAUSEA OR VOMITING, [facility] #[id number] Start Date: 12/05/18 Status: Ordered raised toilet [...] Maintenance, 06/02/17 13:39:59, Route to Pharmacy Electronically, [id number], [facility] [address] Start Date: 06/02/17 Status: Ordered tiZANidine 2 mg oral tablet 2 mg, 1, tablet, By Mouth, Every 8 hours, PRN, # 90 tablet, Refills 3, Tot. Refills 3, Maintenance,as needed for muscle spasm, 01/30/21 8:11:00 EST, Route to Pharmacy Electronically, [facility] #[id number], Partial fill upon patient request, 167... Start [...]
--- OUTSIDE RECORDS SUMMARY | 2023-09-12 11:32 | XMS_ITS | Continuity of Care Document ---
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 Start Date: 10/19/21 Status: Ordered albuterol-ipratropium 3 mg-0.5 mg/3 ml inhalation solution 1 vials, Inhalation, 4 times a day, # 180 mL, 5 Refills, Maintenance, 07/30/19 11:02:00 EDT, [facility] #[id number], 15, INHALE CONTENTS OF 1 VIAL VIA [...] tablet, 11 Refills, Maintenance, 12/07/21 8:02:00 EDT, [facility] #[id number], 165, cm, 10/27/21 1:44:00 EDT, Height, 90.9, kg, 10/27/21 1:44:00 EDT, Dry Weight Start Date: 12/07/21 Status: Ordered amlodipine-benazepril 5 mg-10 mg oral capsule 1 capsule, By Mouth, Daily, To replace prior prescription (amlodipine)., # 90 capsule, 11 Refills, Maintenance, 03/01/22 16:04:00 EST, Capsule, [facility] #[id number], Partial fill upon patient request if the prescription is for a schedule II opi... Start Date: 03/01/22 Stop Date: 02/13/25 Status: Ordered aspirin 81 mg oral delayed release tablet 81 mg, 1, tablet, By Mouth, Daily, # 30 tablet, Refills 5, Tot. Refills 5, Maintenance, 11/02/19 11:39:00 EDT, Route to Pharmacy Electronically, [facility] #[id number], 167.64, cm, 11/02/19 10:58:00 EDT, Height, 100.4, kg, 08/03/18 10:14:00 EDT,... Start Date: 11/02/19 Status: Ordered baclofen 10 mg oral tablet 10 mg, 1, tablet, By Mouth, Daily at bedtime, # 30 tablet, Refills 5, Tot. Refills 5, Maintenance, 02/09/22 13:45:00 EST, Route to Pharmacy Electronically, [facility] #[id number], Partial fill upon patient request if the [...] tablet, 11 Refills, Maintenance, 09/25/21 11:17:00 EDT, [facility] #[id number], 165, cm, 09/25/21 11:04:00 EDT, Height, 96, [...] each, 11 Refills, Maintenance, 09/25/21 11:17:00 EDT, [place], [facility] #[id number], 1 sprays Nares, Both 2 times a day,x30 days, 165, cm, 09/25/21 11:04:00 EDT, Height, 96, kg, 07/13/21 10:52:00 EDT, Dry... Start Date: 09/25/21 Stop Date: 09/20/22 Status: Ordered fluconazole 150 mg oral tablet 1 tablet = 150 mg, By Mouth, Once, Repeat dose if still having symptoms in 72 hours, # 2 tablet, 0 Refills, Soft Stop, 02/09/22 13:43:00 EST, Tablet, [facility] #[id number], Partial fill upon patient request if the [...] 11 Refills, Maintenance, 03/02/19 10:19:00 EST, Capsule, [facility] #[id number], 1 capsule By Mouth Daily, 167.64, cm, [...] less;, # 126 tablet, 0 Refills, Maintenance, 03/24/22 16:10:00 EST, Tablet, [facility] #[id number], Pa... Start Date: 03/24/22 Stop Date: 04/14/22 Status: Ordered Paxlovid 150 mg-100 mg oral tablet See Instructions, 300mg nirmatrelvir (two 150mg tablets) with 100mg ritonavir (one tablet). All 3 tablets taken together twice daily By Mouth for 5 days, with or without food, # 30 tablet, 0 Refills,Maintenance, 10/18/21 16:41:00 EDT, [facility]... Start Date: 10/18/21 Status: Ordered Prevacid [...] 09/25/21 11:17:00 EDT, Route to Pharmacy Electronically, [facility] #[id number], 165, cm, 09/25/2210:04:00 EDT, Height, 96, kg, 07/13/21 10:52:00 EDT... Start Date: 09/25/21 Status: Ordered tiZANidine 2 mg oral tablet 2 mg, 1, tablet, By Mouth, Every 8 hours, PRN, # 90 tablet, Refills 3, Tot. Refills 3, Maintenance,as needed for muscle spasm, 06/18/21 10:33:00 EDT, Route to Pharmacy Electronically, [facility] #[id number], Partial fill upon patient request, 16... Start [...] Professional Member Role: PCP Address: Address: [address] [place] [address]- Name: Lavern SPENCER, Edenilson Chen Position: [facility] SEPHORA OPERATIONS CONSULTANT MD Member Role: Lifetime SEPHORA OPERATIONS CONSULTANT Physician Address: Address: [address] [place], [place] [address] [place] [address]- Name: Chidi Clark DO Position: [facility] Renal MD Member Role: Lifetime Consulting Physician Address: Address: [address] [place] [address] [address] [facility] [place] [place] [address]- [place] Name: Starr Harper RN Position: [facility] RN Member Role: Primary Care Nurse Care Team Related Persons Name: MARYA ADRIAN Address: home [address] [place] [id number]
--- OUTSIDE RECORDS SUMMARY | 2023-09-12 11:32 | XMS_ITS | Continuity of Care Document ---
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 Name Role Phone Cesario VALDEZ, Lisseth Hancock Primary Care Physician Encounter [facility] Date(s): 08/19/23 - 08/24/[address] [id number] Discharge Disposition: A-D/C Home Attending Physician: Tiarra Wood MD Admitting Physician: Lavonne Garcia MD Referring Physician: Not on Staff, Referring MD Allergies, Adverse Reactions, Alerts Substance Reaction Severity Status sulfADIAZINE rash Active sertraline 1 QT wave change Active fentanyl topical passed out Active sulfa drugs rash Active Haldol Agitation Active Bactrim rash Active NSAIDs 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 Active 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 Immunizations Given and Recorded Vaccine Date [...] 08/24/23 12:23:00 EDT, Route to Pharmacy Electronically, [facility], Partial fill upon patient request if [...] 1 Refills, Maintenance, 08/03/23 8:28:00 EDT, Tablet, [facility] #[id number], Partial fill upon patient request if the [...] 11 Refills, Maintenance, 04/29/23 9:44:00 EST, Powder, [facility] #[id number], Partial fill upon patient request if the [...] EDT, Supply Start Date: 11/01/19 Status: Ordered HYDROmorphone 2 mg oral tablet 1 mg, Tablet, By Mouth, Every 6 hours, PRN for Pain , Severe, Routine, 08/23/23 16:48:00 EDT Start Date: 08/23/23 Stop Date: 08/25/23 Status: Discontinued metoprolol 25 mg oral tablet, extended release 25 mg, 1, tablet, By Mouth, Daily, # 30 tablet, Refills 3, Tot. Refills 3, Maintenance, 08/24/23 12:23:00 EDT, Route to Pharmacy Electronically, [facility], Partial fill upon patient request if the prescription is for a schedule II opioi... Start Date: 08/24/23 Stop Date: 12/22/23 Status: Ordered metoprolol 25 mg oral tablet, extended release 25 mg, XL Tablet, By Mouth, 08/24/23 9:00:00 EDT Start Date: 08/24/23 Stop Date: 08/24/23 Status: Completed Nebulizer/Compressor See Instructions, # 1 each, Refills [...] 08/03/23 Stop Date: 09/02/23 Status: Ordered oxyCODONE 5 mg oral tablet 15 mg, Tablet, By Mouth, Every 4 hours, PRN for Pain , Moderate, Routine, 08/19/23 22:44:00 EDT Start Date: 08/19/23 Stop Date: 08/25/23 Status: Discontinued pantoprazole 40 mg oral delayed release tablet [...] 01/26/23 14:02:00 EST, Route to Pharmacy Electronically, [facility] #[id number], 165, cm, 01/26/23 13:31:00 EST, Height, 88.2, [...] Range]: 1 2 3 Height 165 cm (08/24/23 2:05 PM) 165 cm (08/24/23 8:25 AM) 165 cm (08/24/23 7:25 AM) Weight 73.8 kg (08/24/23 5:00 AM) 73.4 kg (08/22/23 6:11 AM) 69.0 kg (08/21/23 11:48 PM) Oxygen Saturation [94-100 %] 100 % (08/24/23 2:05 PM) 100 % (08/24/23 7:25 AM) 99 % (08/24/23 2:00 AM) Pulse Rate [55-90 bpm] 72 bpm (08/24/23 2:05 PM) 63 bpm (08/24/23 8:25 AM) 77 bpm (08/24/23 7:27 AM) Body Mass Index [18.5-24.99 kg/m2] 26.96 kg/m2 *H* (08/22/23 6:11 AM) 25.12 kg/m2 *H* (08/19/23 8:57 PM) Blood Pressure [90-138/55-84 mm Hg] 131/84mm Hg (08/24/23 2:05 PM) 124/87mm Hg (08/24/23 8:25 AM) 103/77mm Hg (08/24/23 7:27 AM) Respiratory Rate [16-30 br/min] 18 br/min (08/24/23 2:34 PM) 18 br/min (08/24/23 2:34 PM) 18 br/min (08/24/23 2:05 PM) Temperature [96.8-100.4 DegF] 97.8 DegF (08/24/23 2:05 PM) 97.7 DegF (08/24/23 7:25 AM) 97.9 DegF (08/24/23 2:00 AM) Mode of Delivery (Oxygen) Room air (08/24/23 2:05 PM) Room air (08/24/23 7:25 AM) Room air (08/24/23 2:00 AM) Blood pressure sites Leg, left (08/24/23 2:05 PM) Leg, right (08/24/23 8:25 AM) Arm, right (08/24/23 7:25 AM) Temperature Route Oral (08/24/23 2:05 PM) Temporal (08/24/23 7:25 AM) Oral (08/24/23 2:00 AM) Dry Weight 68.4 kg (08/19/23 8:57 PM) Weight Obtained Via Bed scale (08/24/23 5:00 AM) Standing scale (08/22/23 6:11 AM) Bed scale (08/21/23 4:00 AM) Social History Social History Type Response Tobacco Other: WEED. Sex Note * Event Display: Hemodynamic Procedure Report Authored Date: [id number] * Muna Bob RN: PERFORM Event Display: Discharge/Transfer Note Hospital Authored Date: [id number] Nursing Discharge Note Entered On: 08/24/2023 15:11 EDT Performed On: 08/24/2023 15:11 EDT by Muna Bob RN Nursing Discharge Note 2 Discharge Time : 08/24/2023 15:47 EDT Muna Bob RN - 08/24/2023 15:47 EDT Discharge Level of Care at Discharge : Home/[facility] Patient Left Unit Via : Wheelchair Patient Accompanied Off Unit with : Responsible adult DC Instructions Provided & Signed by Pt : Yes Patient Understands D/C Instructions : Yes Patient Instructions Discharge Signed : Yes Did Pt have Specialty Bed or Wound Vac : No Muna Bob RN - 08/24/2023 15:11 EDT * Ade Bautista NP: PERFORM Event Display: Discharge/Transfer Note Hospital Authored Date: [id number] Patient: ??EBONI HOWELL ? Age:??47 Years?Sex:??Female?:??1975?? Patient Information Discharge Location: Primary Care Physician: Lisseth Nassar NP Admit Date/Time: 08/19/23 20:50 Discharge Disposition Discharge Disposition: Home: No Services Discharge Diagnosis NSTEMI (non-ST elevated myocardial infarction) (I21.4) _ Discharge Medications amiTRIPTYLINE (amitriptyline 50 mg oral tablet)?1?tab(s)?50?Milligram?By Mouth?Daily at bedtime Aspirin (aspirin 81 mg oral delayed release tablet)?81?Milligram?1?tablet?By Mouth?Daily?for 30?Days BusPIRone (busPIRone 10 mg oral tablet)?10?Milligram?1?tablet?By Mouth?2 times a day Clonazepam (clonazePAM 1 mg oral tablet)?1?tab(s)?1?Milligram?By Mouth?3 times a day?To use sparingly; to fill on/after 08/03/2023 Durable Medical Equipment (Walker)?See Instructions?Please dispense one front wheeled walker Dx M48, M54.16, M54.5 Durable Medical Equipment (Transfer Bench)?See Instructions?Dx M48, M54.16, M54.5 Durable Medical Equipment (raised toilet seat)?See Instructions?please dispense one raised toilet seat Dx M48, M54.16, M54.5 Durable Medical Equipment (Bedside Commode)?See Instructions?please dispense bedside commode Dx M48.00, M54.5, R10.9, M17.10; length of need 99 Durable Medical Equipment (Shower Bar)?See Instructions?please dispense shower bar Dx M48.00,M54.5, R10.9, M17.10; length of need 99 Durable Medical Equipment (Nebulizer/Compressor)?See Instructions?please dispense one nebulizer to be used with albuterol Dx J45.909 Durable Medical Equipment (Compression Stockings)?See Instructions?surgical, calf length 20-30 mm Hg, Dx lower leg edema R60.0 Durable Medical Equipment (Wheelchair)?See Instructions?Please dispense 1 large wheelchair with elevated leg rest; Ht 167cm, wt 100kg length of need 99mo Dx M17.1, M54.16 Durable Medical Equipment (Home Blood Pressure Monitor)?See Instructions?Use to measure bloodpressure at rest daily. Dx HTN on Rx I10 Durable Medical Equipment (Nebulizer/Compressor)?See Instructions?please dispense nebulizer supplies to be used with albuterol Dx J45.909 Durable Medical Equipment (Side bed rails)?See Instructions?DC M17.1, M54.16, M54.5, R60.0 Durable Medical Equipment (disposable andrea pads)?See Instructions?Dx R32, N30.10 Durable Medical Equipment (Diapers)?See Instructions?large pull ups; ??Dx R32, N30.10 fesoterodine (Fesoterodine 8 mg oral tablet, extended release)?TAKE 1 TABLET BY MOUTH DAILY Fluticasone (fluticasone 250 mcg/inh inhalation powder)?1?puff(s)?Inhalation?2 times a day?dispense brand as required by insurance Gabapentin (gabapentin 300 mg oral capsule)?300?Milligram?1?capsule?By Mouth?Daily at bedtime Metoprolol (metoprolol 25 mg oral tablet, extended release)?25?Milligram?1?tablet?ByMouth?Daily?for 30?Days Montelukast (Singulair 10 mg oral tablet)?10?Milligram?1?tablet?By Mouth?Daily inPM?for 90?Days Oxybutynin (Ditropan)?4mg 2 tablets?By Mouth?Daily at bedtime Oxybutynin?8?Milligram?By Mouth?Daily at bedtime Oxycodone (oxyCODONE 15 mg oral tablet)?1?tab(s)?15?Milligram?By Mouth?Every 4 hours?as needed?as needed for pain?for 30?Days?Pt on narcotic contract; MassPat checked; Dx chronic low back pain; may fill less; May fill on/after 08/03/2023to replace previous lost RX Pantoprazole (pantoprazole 40 mg oral delayed release tablet)?1?tab(s)?40?Milligram?By Mouth?2 times a day?for 30?Days?to replace lansoprozole Pentoxifylline (pentoxifylline 400 mg oral tablet, extended release)?400?Milligram?1?tablet?By Mouth?3 times a day Quetiapine (QUEtiapine 200 mg oral tablet)?200?Milligram?1?tablet?TAKE 1 TABLET BY MOUTH AT BEDTIME Quetiapine (QUEtiapine 50 mg oral tablet, extended release)?1?tab(s)?50?Milligram?ByMouth?Daily Zolpidem (Ambien 5 mg oral tablet)?1?tab(s)?5?Milligram?By Mouth?Daily at bedtime?as needed?Insomnia ? Quality Measures Chest Pain, AMI Quality Measures:?Beta-Radha Prescribed at Discharge:??Beta-Radha Prescibed ?Aspirin Prescribed at Discharge:??Aspirin Prescribed ? Future Appointments Tuesday 10:45 AM EDT ?? With: Chuyita Baer Where: [facility] [address] [place] [address]- Status: Pending 2023 2:00 PM EDT ?? Where: [facility] [address], [address] [place] [address]- Status: Pending Hospital Course Eboni is a 47-year-old woman with a medical history of hypertension, anxiety, bipolar disorder, asthma, GERD, history of gastric sleeve and multiple abdominal surgeries who presents to [facility] as a transfer from [facility] for evaluation and management of NSTEMI. Patient mentions that yesterday she started having abdominal pain, nausea and vomiting for which she decidedto go to the emergency department at [facility] but she waited for too long and eventually decided to leave the hospital before being evaluated. This morning, she again developed the same symptoms but this time they were accompanied by chest pain. She rates the chest pain an 8 out of 10 in severity which was present in the middle of her chest and radiated to her left arm and her back. She called her bariatric surgery doctor, Dr. Allen, who advised her to present to the ED again. On arrival to [facility]'s ED she was found to have an elevated troponin I of 8700, ECG showed TWI in inferolateral leads and ST elevation in lead V2. Given that her chest pain was radiating to her back a CT angio of the chest and abdomen was obtained which showed no evidence of aortic dissection or aneurysm. CXR showed noacute abnormalities. She was started on heparin and nitroglycerin drips and transferred to [facility] for further management of NSTEMI. Hospital course complicated by prolonged QTc of 505. Echo shows a reduc ed EF 25-60% with seevere HK to the distal 2/3 LV, sparing of the basal segment c/w stress vs. large LAD territoru. Has since underwent a cardiac cath with no cornonary disease found, consistent withTakotsubo. ?? Objective Assessment and Plan Assessment:? NSTEMI Risk factors: Hypertension and family history. HS-Casey of 397. ECG with TWI in anterolateral leads, ST elevation in lead V2 (is elevated over 1.5 mm but has a deep S wave which is likely the cause why ST is elevated). QTc prolonged of 505 ms. Currently chest pain free. CTA of chest and abdomen at [facility] showed no aortic dissection. Patient appears euvolemic to dry on exam. Echocardiogram revealed LVEF 25-30%, severe hypokinesis to distal 2/3 LV, sparing of basal segment c/w stress CM vs. large LAD territory infarct 08/23?? cardiac cath with no cornonary disease found, consistent with Takotsubo. ?? Plan: - Aspirin 81 mg daily - Atorvastatin 40 mg at bedtime. - Cardiac rehab ordered - Continue toprol XL 25 mg daily - would consider adding an Rodrigo/ARB given as an outpatient. noted to be hypotensive in the hospital.?? - pt to follow up with Dr. Mays/ROSSY ? Anxiety Bipolar disorder? Patient takes Seroquel 50 mg XL in AM and 200 mg??at bedtime, amitriptyline 50 mg daily at bedtime,buspirone 10 mg twice daily and clonazepam??1 mg three times daily as needed. Patient had a prolonged??QTc of 505 ms. now 458 - REsume home medications: Seroquel and amitriptylin - Continue home buspirone and as needed clonazepam. ?? Elevated serum creatinine, resolved SCr baseline earlier this ear was 0.9 likely her baseline, was 0.7-0.9 in 2022. ?? Chronic back pain Chronic abdominal pain Patient takes oxycodone 15 mg??every 4 hours as needed for pain and Dilaudid 2 mg as needed for pain every 4 hours at home. Discussed with pharmacy and pain management dilaudid and oxycodone is not associated generally withQt prolongation. ?? - Continue home oxycodone as needed, ? Chronic/Stable/Resolved medical problems: Asthma:??Breo Ellipta and as needed albuterol. GERD:??Continue PPI. ? pt discussed with attending, Dr. Wood ?? Discharge Planning:? Vital Signs?? Temperature: 97.8 DegF (08/24/23 14:05:00) Temperature Route: Oral (08/24/23 14:05:00) Pulse Rate: 72 bpm (08/24/23 14:05:00) Respiratory Rate: 18 br/min (08/24/23 14:05:00) Systolic Blood Pressure: 131 mm Hg (08/24/23 14:05:00) Diastolic Blood Pressure: 84 mm Hg (08/24/23 14:05:00) Blood pressure sites: Leg, left (08/24/23 14:05:00) Mean Arterial Pressure: 100 mm Hg (08/24/23 14:05:00) Pulse Pressure: 47 mm Hg (08/24/23 14:05:00) Oxygen Saturation: 100 % (08/24/23 14:05:00) Mode of Delivery (Oxygen): Room air (06/12/24 14:05:00) Early Warning Score: 2 (08/24/23 14:06:23) ? . Physical Exam General:??Alert, in no acute cardiopulmonary distress. Mental Status:??Oriented to person, place and time. Normal affect. Head:??Normocephalic. Eyes:??No xanthomas or scleral icterus. Extraocular muscles intact. Respiratory:??Clear to auscultation and percussion. No wheezing, rales or rhonchi. Cardiovascular:??Heart sounds normal. No thrills. Regular rate and rhythm, no murmurs, rubs or gallops. No JVD appreciated Extremities:??+2 peripheral pulses bilaterally. No edema noted. Gastrointestinal:??Abdomen soft, non-tender, non-distended. Normal bowel sounds. No pulsatile mass.No hepatosplenomegaly.. Skin:??Right wrist cath site CDI, no hematoma or bleeding noted ?? Pending Results Add On Lab Order ordered on 08/19/2023 Add On Lab Order ordered on 08/19/2023 PTT ordered on 08/22/2023 Follow-Up Appointments Added Follow Up ?Time Frame ?Comments Christina Mays MD?2 to 5 weeks?The office will contact you with an apt time and date Home Health Face to Face ^HomeHealthFTF Results Discharge Labs BLOOD COUNT & DIFF WBC 5.7 k/mm3 ()?? 08/24/2023 00:43 RBC 3.13 m/mm3 (Low)?? 08/24/2023 00:43 Hgb 8.9 Gm/dL (Low)?? 08/24/2023 00:43 Hct 27.1 % (Low)?? 08/24/2023 00:43 MCV 86.6 femtoliters ()?? 08/24/2023 00:43 MCH 28.4 pg ()?? 08/24/2023 00:43 MCHC 32.8 g/dL (Low)?? 08/24/2023 00:43 Platelet Count 191 k/mm3 ()?? 08/24/2023 00:43 RDW-SD 42.6 femtoliters ()?? 08/24/2023 00:43 MPV 10.6 femtoliters ()?? 08/24/2023 00:43 Nucleated RBC (Automated) 0.0 #/100 WBC'S ()?? 08/24/2023 00:43 Abs. NRBC 0.0 k/mm3 ()?? 08/24/2023 00:43 Abs. Neut 7.2 k/mm3 (High)?? 08/19/2023 21:58 Abs. Lymph 3.6 k/mm3 (High)?? 08/19/2023 21:58 Abs. Telfair 1.4 k/mm3 (High)?? 08/19/2023 21:58 Abs. Eo 0.0 k/mm3 ()?? 08/19/2023 21:58 Abs. Baso 0.0 k/mm3 ()?? 08/19/2023 21:58 Neut % 58.7 % ()?? 08/19/2023 21:58 Lymph % 29.2 % ()?? 08/19/2023 21:58 Telfair % 11.5 % (High)?? 08/19/2023 21:58 Eos % 0.0 % ()?? 08/19/2023 21:58 Baso % 0.3 % ()?? 08/19/2023 21:58 Imm Gran 0.3 % ()?? 08/19/2023 21:58 Abs. Imm Gran 0.0 k/mm3 ()?? 08/19/2023 21:58 ?? CARDIAC High Sensitivity Troponin (HSTnT) 195 ng/L (Critical)?? 08/21/2023 15:04 ? CHEM GENERAL Sodium 142 mmol/L ()?? 08/24/2023 00:43 Potassium 4.0 mmol/L ()?? 08/24/2023 00:43 Chloride 109 mmol/L (High)?? 08/24/2023 00:43 Bicarbonate Level 24 mmol/L ()?? 08/24/2023 00:43 Anion Gap 9 ()?? 08/24/2023 00:43 Glucose Level 79 mg/dL ()?? 08/24/2023 00:43 Hemoglobin A1C (Monitoring) 5.6 % ()?? 08/19/2023 21:58 BUN 10 mg/dL ()?? 08/24/2023 00:43 Creatinine-Blood 0.99 mg/dL ()?? 08/24/2023 00:43 Estimated GFR Creatinine 71 ML/MIN/1.73 M2 ()?? 08/24/2023 00:43 Calcium 7.8 mg/dL (Low)?? 08/24/2023 00:43 Magnesium 1.7 mg/dL ()?? 08/24/2023 00:43 Protein, Total 5.7 Gm/dL (Low)?? 08/21/2023 06:34 Albumin 3.3 Gm/dL (Low)?? 08/21/2023 06:34 AG Ratio 1.4 ()?? 08/19/2023 21:58 Alkaline Phosphatase 66 units/L ()?? 08/21/2023 06:34 AST (SGOT) 25 units/L ()?? 08/21/2023 06:34 ALT (SGPT) 10 units/L ()?? 08/21/2023 06:34 Bilirubin, Total 0.3 mg/dL ()?? 08/21/2023 06:34 Bilirubin, Direct <0.2 mg/dL ()?? 08/21/2023 06:34 Bilirubin, Indirect Direct bilirubin is less than the measureable limit. Therefore, indirect mg/dL ()?? 08/21/2023 06:34 Lactate 1.0 mmol/L ()?? 08/21/2023 06:40 C-Reactive Protein 0.7 mg/dL (High)?? 08/19/2023 21:58 ? COAG APTT 70.0 seconds (High)?? 08/22/2023 05:06 ? ENDOCRINE/TUMOR MARKER TSH 2.41 uIU/mL ()?? 08/19/2023 21:58 ? HEME OTHER Sed Rate 38 mm/hr (High)?? 08/19/2023 21:58 Hold Lavender Top SPECIMEN DISCARDED AFTER 24 HOURS. ()?? 08/20/2023 07:51 ?? LIPID STUDIES Cholesterol 195 mg/dL ()?? 08/19/2023 21:58 Triglycerides 70 mg/dL ()?? 08/19/2023 21:58 HDL Cholesterol 92 mg/dL ()?? 08/19/2023 21:58 LDL Cholesterol 89 mg/dL ()?? 08/19/2023 21:58 Non HDL Cholesterol 103 mg/dL ()?? 08/19/2023 21:58 ? MISC. CHEMISTRY Hold Green Top SPECIMEN DISCARDED AFTER 1 WEEK ()?? 08/20/2023 07:51 Hold Gel Top SPECIMEN DISCARDED AFTER 1 WEEK ()?? 08/20/2023 07:51 ?? URINE OTHER Est Creatinine Clearance 63.79 mL/min ()?? 08/24/2023 01:35 ? Procedure ?Coronary Angiography??08/24/2023 08:06 by Edgardo Montes MD ? Image ?Echo Complete??08/21/2023 09:02 by Lyle Zhang MD ? _44 minutes spent on discharge * Muna Bob RN: PERFORM Event Display: Patient Education/Instruction Authored Date: [id number] Inpatient Adult Discharge Instructions. [place] [id number] Name: EBONI HOWELL : 1975?? Visit: 08/19/2023 20:50?? Current Date: 08/24/2023 15:06 ?? Account: [id number]?? Inpatient Adult Discharge Instructions We would like to thank you for allowing us to assist you with your healthcare needs. The following includes patient education materials and information regarding your injury/illness. Our entire staffstrives to provide an excellent experience for our patients and their families. PLEASE ENSURE YOU FOLLOW-UP PER THE INSTRUCTIONS BELOW! ?? YOUR OPINION IS IMPORTANT TO US! Please complete the survey you may receive by mail or email. Your feedback will be used to make improvements to the healthcare experiences of our patients and their families. Surveys are administered by [employer] ?? If further treatment with your primary care physician or another doctor is recommended, it is important for you to keep the appointment. Call your primary care physician or return to the Emergency Department immediately if your condition worsens, fails to improve, or new symptoms develop. If you need to find a doctor, you can call [facility] for a referral at [phone] or toll free at [phone]) or log in to [email or web address] ?? [facility], in keeping with [facility] guidance, no longer requires face masks for staff, patientsor visitors in most situations. Similiar to time spent indoors at other locations, there is the chance that you were exposed to repiratory viruses during your time with us (such as flu or COVID-19). If you develop symptoms concerning for a viral respiratory infection, please seek testing (and treatment if indicated) from your medical provider or home test kit. ?? You can view and manage your care through the patient portal or by using a health care rossy of your choosing. [employer] is a website that allows you to securely view your medical information including your hospital discharge summary, office visit summaries, medications and follow-up visits. You can also request appointments, renew medications, and request access to your medical information using a health care rossy of your choosing, or just ask a question. You can enroll at [email or web address] or register during your next office visit. You have been discharged from [facility], Patient Care Unit: M7??. If you have any questions regarding these instructions, including results of studies pending, afteryou leave, please call us and we will be happy to assist you 04/10. [facility] Your Care Team Attending Physician Tiarra Wood MD?? Consulting Providers Tiarra Wood MD?? Discharging Providers Ade Bautista NP Your Diagnosis NSTEMI (non-ST elevated myocardial infarction) Tests Performed Below is a partial list of the tests performed during your hospitalization. You may have had other tests and procedures not included in this list. Please discuss all test results with your provider. Basic Metabolic Panel C-REACTIVE PROTEIN CBC Comprehensive Metabolic Panel DIFFERENTIAL Hemoglobin A1C (Monitoring) HOLD GEL TUBE HOLD GREEN TUBE HOLD LAVENDER TUBE Lactate Level LFT's Lipid Panel Magnesium Level SEDIMENTATION RATE,AUTOMATED Troponin T, High Sensitivity TSH Add On Lab Order?? High??Sensitivity??Troponin T (Troponin T, High Sensitivity)?? PTT?? Primary Care Provider Cesario VALDEZ, Lisseth Hancock? Advance Directive Health Care Proxy on File Yes - Health Care Proxy Discharge Vitals Temperature: 97.8 DegF Height: 165 cm Pulse Rate: 72 bpm Weight: 73.8 kg Respiratory Rate: 18 br/min Body Mass Index:??26.96 kg/m2??High Respiratory Rate: 18 br/min Body surface area: 1.83 Systolic Blood Pressure: 131 mm Hg ?? Diastolic Blood Pressure: 84 mm Hg ?? Oxygen Saturation: 100 % ?? Studies Pending All studies ordered during this hospital stay have been completed unless listed below. Please discuss all pending results with your provider listed above in these instructions. ?? Add On Lab Order?? High??Sensitivity??Troponin T (Troponin T, High Sensitivity)?? PTT?? What to do next Instructions From Your Doctor ?? Orders? 08/24/23 14:14:00 EDT?? Scheduled Follow-Up Appointments Tuesday 10:45 AM EDT ?? With: Mode DELATORRE, Chuyita Alves Where: [facility] [address] [place] [address]- Status: Pending 2023 2:00 PM EDT ?? Where: [facility] Radiology [facility] [address], [address] [place] [address]- Status: Pending You Need to Schedule the Following Appointments Follow Up with??Tabatha SPENCER, Christina Zavaleta When:??Within 2 to 5 weeks Why: The office will contact you with an apt time and date Discharge Medications EBONI HOWELL :1975 Visit Date:08/19/2023 Medications: Please continue your medications until treatment is completed or stopped by your provider. Medications not listed below should be discontinued. Discuss any questions related to medications with your provider. What How Much When Why Instructions Next Dose New Aspirin (aspirin 81 mg oral delayed release tablet) 1 tab(s) Oral Daily Duration: 30 Days Refills: 3 Pickup at [facility] 3 08/25/23 9AM New Metoprolol (metoprolol 25 mg oral tablet, extended release) 1 tab(s) Oral Daily Duration: 30 Days Refills: 3 Pickup at [facility] 3 08/25/23 9AM Changed Quetiapine (QUEtiapine 200 mg oral tablet) 1 tab(s) TAKE 1 TABLET BY MOUTH AT BEDTIME ?? 08/24/23 9PM Changed Quetiapine (QUEtiapine 50 mg oral tablet, extended release) 1 tab(s) Oral Daily 08/24/23 9PM Changed amiTRIPTYLINE (amitriptyline 50 mg oral tablet) 1 tab(s) Oral Daily at Bedtime 08/24/23 9PM Unchanged BusPIRone (busPIRone 10 mg oral tablet) 1 tab(s) Oral Twice a day 08/24/23 9PM Unchanged Clonazepam (clonazePAM 1 mg oral tablet) 1 tab(s) Oral 3 times a day To use sparingly; to fill on/ after 2023 ?? 08/24/23 9PM Unchanged Durable Medical Equipment (Bedside Commode) See instructions please dispense bedside commode Dx M48.00, M54.5, R10.9, M17.10; length of need 99 ?? Unchanged Durable Medical Equipment (Compression Stockings) See instructions surgical, calf length 20-30 mm Hg, Dx lower leg edema R60.0 ?? Unchanged Durable Medical Equipment (Diapers) See instructions large pull ups; ??Dx R32, N30.10 ?? Unchanged Durable Medical Equipment (disposable andrea pads) See instructions Dx R32, N30.10 ?? Unchanged Durable Medical Equipment (Home Blood Pressure Monitor) See instructions HTN (hypertension) Use to measure blood pressure at rest daily. Dx HTN on Rx I10 ?? Unchanged Durable Medical Equipment (Nebulizer/ Compressor) See instructions Asthma exacerbation please dispense nebulizer supplies to be used with albuterol Dx J45.909 ?? Unchanged Durable Medical Equipment (Nebulizer/ Compressor) See instructions please dispense one nebulizer to be used with albuterol Dx J45.909 ?? Unchanged Durable Medical Equipment (raised toilet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
--- OUTSIDE RECORDS SUMMARY | 2023-09-12 11:32 | XMS_ITS | Continuity of Care Document ---
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 Immunizations Given and Recorded Vaccine Date Status [...] 5 Refills, Maintenance, 05/07/19 10:46:00 EST, Solution, [facility] #[id number], 167.64, cm, 04/24/19 16:16:00 EST, Height, 100.4, kg, 08/03/18 10:14:00 EDT, Dry Weight Start Date: 05/07/19 Status: Ordered albuterol-ipratropium 3 mg-0.5 mg/3 ml inhalation solution 1 vials, Inhalation, 4 times a day, # 180 mL, 5 Refills, Maintenance, 07/30/19 11:02:00 EDT, [facility] #[id number], 15, INHALE CONTENTS OF 1 VIAL VIA [...] 10/12/21 16:19:00 EDT, Route to Pharmacy Electronically, [facility] #[id number], 165, cm, 09/25/21 11:04:00EDT, Height, 96, kg, 07/13/21 10:52:00 EDT, Dry Weight Start Date: 10/12/21 Status: Ordered amlodipine-benazepril 5 mg-10 mg oral capsule 1 capsule, By Mouth, Daily, To replace prior prescription (amlodipine)., # 30 capsule, 11 Refills, Maintenance, 04/23/21 14:51:00 EST, Capsule, [facility] #47068, Partial fill upon patient request if the prescription is for a schedule II opi... Start Date: 04/23/21 Status: Ordered aspirin 81 mg oral delayed release tablet 81 mg, 1, tablet, By Mouth, Daily, # 30 tablet, Refills 5, Tot. Refills 5, Maintenance, 11/02/19 11:39:00 EDT, Route to Pharmacy Electronically, [facility] #14253, 167.64, cm, 11/02/19 10:58:00 EDT, Height, 100.4, [...] tablet, 11 Refills, Maintenance, 09/25/21 11:17:00 EDT, [facility] #49325, 165, cm, 09/25/21 11:04:00 EDT, Height, 96, [...] each, 11 Refills, Maintenance, 09/25/21 11:17:00 EDT, [place], [facility] #[id number], 1 sprays Nares, Both 2 times a [...] Acute 03/13/22 14:45:00 EST, 03/20/2213:45:00 EST, Ointment, [facility] #56015, Partial fill upon patient request if the [...] 11 Refills, Maintenance, 03/02/19 10:19:00 EST, Capsule, [facility] #06176, 1 capsule By Mouth Daily, 167.64, cm, [...] 09/25/21 11:17:00 EDT, Route to Pharmacy Electronically, [facility] #[id number], 165, cm, 09/25/2210:04:00 EDT, Height, 96, kg, 07/13/21 10:52:00 EDT... Start Date: 09/25/21 Status: Ordered tiZANidine 2 mg oral tablet 2 mg, 1, tablet, By Mouth, Every 8 hours, PRN, # 90 tablet, Refills 3, Tot. Refills 3, Maintenance,as needed for muscle spasm, 06/18/21 10:33:00 EDT, Route to Pharmacy Electronically, [facility] #[id number], Partial fill upon patient request, 16... Start [...]
--- OUTSIDE RECORDS SUMMARY | 2023-09-12 11:32 | XMS_ITS | Continuity of Care Document ---
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 Start Date: 01/26/23 Status: Ordered albuterol CFC free 90 mcg/inh inhalation aerosol 2, puffs, Inhalation, 4 times a day, PRN, Dispense brand as required by insurance, # 1 each, Refills 11, Tot. Refills 11, Maintenance, 01/26/23 14:00:00 EST, Aerosol, Route to Pharmacy Electronically, [id number], [facility]. Start Date: 01/26/23 Status: Ordered albuterol-ipratropium 3 mg-0.5 mg/3 ml inhalation solution 1 vials, Inhalation, 4 times a day, # 180 mL, 11 Refills, Maintenance, 01/27/23 9:25:00 EST, [facility] #[id number], 15, 1 vials Inhalation 4 times a [...] tablet, 6 Refills, Maintenance, 12/07/22 16:46:00 EDT, [facility] #86485, 165, cm, 12/06/22 17:39:00 EDT, Height, 88.2, kg, 05/26/22 7:52:00EDT, Dry Weight Start Date: 12/07/22 Status: Ordered amlodipine-benazepril 5 mg-10 mg oral capsule 1 capsule, By Mouth, Daily, To replace prior prescription (amlodipine)., # 90 capsule, 11 Refills, Maintenance, 03/01/22 16:04:00 EST, Capsule, [facility] #18447, Partial fill upon patient request if the [...] tablet, 3 Refills, Maintenance, 01/26/23 14:00:00 EST, [facility] #99050, 165, cm, 01/26/23 13:31:00 EST, Height, 88.2, [...] each, 11 Refills, Maintenance, 09/25/21 11:17:00 EDT, [place], [facility] #89664, 1 sprays Nares, Both 2 times a day,x30 days, 165, cm, 09/25/21 11:04:00 EDT, Height, 96, kg, 07/13/21 10:52:00 EDT, Dry... Start Date: 09/25/21 Stop Date: 09/20/22 Status: Ordered fluconazole 150 mg oral tablet 1 tablet = 150 mg, By Mouth, Once, Repeat dose if still having symptoms in 72 hours, # 2 tablet, 1 Refills, Soft Stop, 01/26/23 14:19:00 EST, Tablet, [facility] #11171, Partial fill upon patient request if the [...] 11 Refills, Maintenance, 01/26/23 14:04:00 EST, Aerosol, [facility] #93912, Partial fill upon patient request if the [...] capsule, 4 Refills, Maintenance, 01/26/23 14:02:00 EST, [facility] #18334, 165, cm, 01/26/23 13:31:00 EST, Height, 88.2, [...] 01/26/23 14:02:00 EST, Route to Pharmacy Electronically, [facility] #[id number], 165, cm, 01/26/23 13:31:00 EST, Height, 88.2, [...] Care Nurse Name: Lisseth Nassar NP Position: [facility] PCO Associate Professional Member Role: PCP Address: Address: [address] [place] [address]- Name: Edenilson Puckett MD Position: [facility] GRADES 7 8 TUTOR MD Member Role: [employer] GRADES 7 8 TUTOR Physician Address: Address: [address] [place] [address]- Name: Jovana Park RN Position: [facility] SN RN Member Role: Primary Care Nurse Name: Chidi Clark DO Position: [facility] Renal MD Member Role: Lifetime Consulting Physician Address: Address: [address] [place], [place] [address] [place] [address]- Name: Mireya Torres RN Position: S RN Member Role: Primary Care Nurse Name: Starr Harper RN Position: [facility] SN RN Member Role: Primary Care Nurse Name: Kelly Maddox RN Position: S RN Member Role: Primary Care Nurse Care Team Related Persons Name: KAYLAH MARYA Address: home [address] [place] [address] Name: MORALES HOWELL Address: home [address] [place] [id number]
--- OUTSIDE RECORDS SUMMARY | 2023-09-12 11:32 | XMS_ITS | Continuity of Care Document ---
Author Organization [facility] Address [address] [place] [address]- Care Team Providers Care Election Assistant Name Role Phone Cesario VALDEZ, Lisseth Hancock Primary Care Physician Encounter 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 Start Date: 01/26/23 Status: Ordered albuterol CFC free 90 mcg/inh inhalation aerosol 2, puffs, Inhalation, 4 times a day, PRN, Dispense brand as required by insurance, # 1 each, Refills 11, Tot. Refills 11, Maintenance, 01/26/23 14:00:00 EST, Aerosol, Route to Pharmacy Electronically, [id number], [facility]. Start Date: 01/26/23 Status: Ordered albuterol-ipratropium 3 mg-0.5 mg/3 ml inhalation solution 1 vials, Inhalation, 4 times a day, # 180 mL, 11 Refills, Maintenance, 01/27/23 9:25:00 EST, [facility] #48006, 15, 1 vials Inhalation 4 times a [...] tablet, 6 Refills, Maintenance, 05/30/23 14:38:00 EDT, [facility] #49961, 165, cm, 05/30/23 14:22:00 EDT, Height, 88.2, kg, 05/26/22 7:52:00EDT, Dry Weight Start Date: 05/30/23 Stop Date: 02/18/25 Status: Ordered amlodipine-benazepril 5 mg-10 mg oral capsule 1 capsule, By Mouth, Daily, TO. REPLACE BEFORE PRESCRIPTION AMLODIPINE, # 90 capsule, 3 Refills, Maintenance, 05/30/23 14:38:00 EDT, [facility] #01072, 90, 1 capsule By Mouth Daily,Instr:TO. REPLACE [...] tablet, 3 Refills, Maintenance, 11/15/23 14:00:00 EST, [facility] #22855, 165, cm, 01/26/23 13:31:00 EST, Height, 88.2, kg, 05/26/22 7:52:00 EDT, Dry Weight Start Date: 01/26/23 Stop Date: 01/21/24 Status: Ordered clonazePAM 2 mg oral tablet 0.5 tablet = 1 mg, By Mouth, 3 times a day, please note dosage strength, # 45 tablet, 1 Refills, Maintenance, 07/04/23 11:11:00 EDT, Tablet, [facility] #68421, Partial fill upon patient request if the [...] each, 11 Refills, Maintenance, 09/25/21 11:17:00 EDT, [place], [facility] #51942, 1 sprays Nares, Both 2 times a day,x30 days, 165, cm, 09/25/21 11:04:00 EDT, Height, 96, kg, 07/13/21 10:52:00 EDT, Dry... Start Date: 09/25/21 Stop Date: 09/20/22 Status: Ordered fluconazole 150 mg oral tablet 1 tablet = 150 mg, By Mouth, Once, Repeat dose if still having symptoms in 72 hours, # 2 tablet, 1 Refills, Soft Stop, 04/27/23 14:34:00 EST, [facility] #05659, Partial fill upon patient request if the prescription is for a schedule... Start Date: 04/27/23 Status: Ordered fluticasone 250 mcg/inh inhalation powder 1 puffs, Inhalation, 2 times a day, dispense brand as required by insurance, # 120 each, 11 Refills, Maintenance, 04/29/23 9:44:00 EST, [place], [facility] #90055, Partial fill upon patient request if the [...] capsule, 4 Refills, Maintenance, 01/26/23 14:02:00 EST, [facility] #20521, 165, cm, 01/26/23 13:31:00 EST, Height, 88.2, [...] 01/26/23 14:02:00 EST, Route to Pharmacy Electronically, [facility] #03030, 165, cm, 01/26/23 13:31:00 EST, Height, 88.2, [...] Team Personnel Name: Tristin Hunt RN Position: [facility] RN Member Role: Primary Care Nurse Name: Lisseth Nassar NP Position: [facility] PCO Associate Professional Member Role: PCP Address: Address: [address] [place] [address]- Name: Edenilson Puckett MD Position: [facility] FRAME RUNNER MD Member Role: Lifetime FRAME RUNNER Physician Address: Address: [address] [place] [address]- [place] Name: Jovana Park RN Position: [facility] SN RN Member Role: Primary Care Nurse Name: Chidi Clark DO Position: [facility] Renal MD Member Role: Lifetime Consulting Physician Address: Address: [address] [place], [place] [address]E [facility] [place] [address]- [place] Name: Mireya Torres RN Position: [facility] RN Member Role: Primary Care Nurse Name: Starr Harper RN Position: [facility] AMB Nurse Member Role: Primary Care Nurse Name: Kelly Maddox RN Position: [facility] RN Member Role: Primary Care Nurse Care Team Related Persons Name: MARYA ADRIAN Address: home [address] [place] [address] Name: MORALES HOWELL Address: home [address] [place] [address]
--- OUTSIDE RECORDS SUMMARY | 2023-09-12 11:33 | XMS_ITS | Continuity of Care Document ---
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 Immunizations Given and Recorded Vaccine Date Status [...] 5 Refills, Maintenance, 05/07/19 10:46:00 EST, Solution, [facility] #[id number], 167.64, cm, 04/24/19 16:16:00 EST, Height, 100.4, kg, 08/03/18 10:14:00 EDT, Dry Weight Start Date: 05/07/19 Status: Ordered albuterol-ipratropium 3 mg-0.5 mg/3 ml inhalation solution 1 vials, Inhalation, 4 times a day, # 180 mL, 5 Refills, Maintenance, 07/30/19 11:02:00 EDT, [facility] #03968, 15, INHALE CONTENTS OF 1 VIAL VIA [...] 11 Refills, Maintenance, 04/23/21 14:51:00 EST, Capsule, [facility] #[id number], Partial fill upon patient request if the prescription is for a schedule II opi... Start Date: 04/23/21 Status: Ordered aspirin 81 mg oral delayed release tablet 81 mg, 1, tablet, By Mouth, Daily, # 30 tablet, Refills 5, Tot. Refills 5, Maintenance, 11/02/19 11:39:00 EDT, Route to Pharmacy Electronically, [facility] #71320, 167.64, cm, 11/02/19 10:58:00 EDT, Height, 100.4, [...] tablet, 11 Refills, Maintenance, 01/11/20 10:43:00 EDT, [facility] #97843, 167.64, cm, 11/12/19 15:34:00 EDT, Height, 100.4, [...] each, 5 Refills, Maintenance, 06/05/18 19:53:47 EDT, [place], 1 sprays Nares, Both 2 times a [...] Acute 03/13/22 14:45:00 EST, 03/20/2213:45:00 EST, Ointment, [facility] #33270, Partial fill upon patient request if the [...] 11 Refills, Maintenance, 03/02/19 10:19:00 EST, Capsule, [facility] #11305, 1 capsule By Mouth Daily, 167.64, cm, [...] Maintenance, 06/02/17 13:39:59, Route to Pharmacy Electronically, [id number], [facility] [address] Start Date: 06/02/17 Status: Ordered tiZANidine 2 mg oral tablet 2 mg, 1, tablet, By Mouth, Every 8 hours, PRN, # 90 tablet, Refills 3, Tot. Refills 3, Maintenance,as needed for muscle spasm, 06/18/21 10:33:00 EDT, Route to Pharmacy Electronically, [facility] #[id number], Partial fill upon patient request, 16... Start [...]
--- OUTSIDE RECORDS SUMMARY | 2023-09-12 11:33 | XMS_ITS | Continuity of Care Document ---
Author Organization [facility] Address [address] [place] [address]- Care Team Providers Care Flash Welding Machine Operator Name Role Phone Cesario VALDEZ, Lisseth Hancock Primary Care Physician [phone] Encounter [facility] Date(s): 10/17/19 - 11/16/19 [facility] [address] [place] [address] [facility] Allergies, Adverse Reactions, Alerts Substance Reaction Severity Status sulfADIAZINE rash Active morphine rash & swelling Active sertraline 1 QT wave change Active sulfa drugs rash Active Bactrim rash Active NSAIDs 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 Active 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 Refills 11, Maintenance, 11/24/17 13:49:05 EDT, Aerosol, Route to Pharmacy Electronically, [id number], [facility] [address], [facility] Start Date: 11/24/17 Status: Ordered albuterol-ipratropium 3 mg-0.5 mg/3 ml inhalation solution 1 vials, Inhalation, 4 times a day, # 180 mL, 5 Refills, Maintenance, 07/30/19 11:02:00 EDT, [facility] #38984, 15, INHALE CONTENTS OF 1 VIAL VIA NEBULIZER FOUR TIMES DAILY, 167.64, cm, 04/24/19 16:16:00 EST, Height, 100.4, kg, 08/03/18 10:1... Start Date: 07/30/19 Status: Ordered amLODIPine 10 mg oral tablet 1 tablet, By Mouth, Daily, # 30 tablet, 6 Refills, Maintenance, 10/04/19 12:22:00 EDT, [facility] #29955, 167.64, cm, 04/24/19 16:16:00 EST, Height, 100.4, kg, 08/03/18 10:14:00 EDT, Dry Weight Start Date: 10/04/19 Status: Ordered aspirin 81 mg oral delayed release tablet 81 mg, 1, tablet, By Mouth, Daily, # 30 tablet, Refills 5, Tot. Refills 5, Maintenance, 11/02/19 11:39:00 EDT, Route to Pharmacy Electronically, [facility] #02254, 167.64, cm, 11/02/19 10:58:00 EDT, Height, 100.4, kg, 08/03/18 10:14:00 EDT,... Start Date: 11/02/19 Status: Ordered baclofen 10 mg oral tablet 1, tablet, By Mouth, 3 times a day, # 60 tablet, Refills 2, Tot. Refills 2, Maintenance, 06/14/19 9:10:00 EDT, Route to Pharmacy Electronically, [facility] #33594, 167.64, cm, 04/24/19 16:16:00 EST, Height, 100.4, [...] 5 Refills, Maintenance, 04/16/19 13:06:00 EST, Tablet, [facility] #81242, 167.64, cm, 03/02/19 10:23:00 EST, Height, 100.4, [...] DAILY, # 44 mL, 0 Refills, Maintenance, [facility] #90550, 29, SPRAY TWICE IN EACH NOSTRIL FOUR [...] each, 5 Refills, Maintenance, 06/05/18 19:53:47 EDT, [place], 1 sprays Nares, Both 2 times a [...] 11 Refills, Maintenance, 03/02/19 10:19:00 EST, Capsule, [facility] #62605, 1 capsule By Mouth Daily, 167.64, cm, [...] 4 HOURS NEEDED FOR NAUSEA OR VOMITING, [facility] #89658 Start Date: 12/05/18 Status: Ordered raised toilet [...] Maintenance, 06/02/17 13:39:59, Route to Pharmacy Electronically, [id number], [facility] [address] Start Date: 06/02/17 Status: Ordered Transfer Bench [...]
--- OUTSIDE RECORDS SUMMARY | 2023-09-12 11:33 | XMS_ITS | Continuity of Care Document ---
Author Organization [facility] Address [address] [place] [address]- Care Team Providers Care Central Office Inspector Name Role Phone Cesario VALDEZ, Lisseth Terrell Primary Care Physician [place] [facility] [place]/13/[place] - 06/23/[address] [address]- 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 Refills 11, Maintenance, 11/24/17 13:49:05 EDT, Aerosol, Route to Pharmacy Electronically, [id number], [facility] [address], [facility] Start Date: 11/24/17 Status: Ordered albuterol-ipratropium 3 mg-0.5 mg/3 ml inhalation solution 3 mL, Inhalation, 4 times a day, # 60 each, 6 Refills, Maintenance, 02/17/18 14:50:32 EST, Solution, 3 mL Inhalation 4 times a day Start Date: 02/17/18 Status: Ordered amLODIPine 10 mg oral tablet 1 tablet, By Mouth, Daily, # 30 tablet, 2 Refills, Maintenance, 06/15/19 9:43:00 EDT, [facility] #92489, 167.64, cm, 04/24/19 16:16:00 EST, Height, 100.4, kg, 08/03/18 10:14:00 EDT, Dry Weight Start Date: 06/15/19 Status: Ordered baclofen 10 mg oral tablet 1, tablet, By Mouth, 3 times a day, # 60 tablet, Refills 2, Tot. Refills 2, Maintenance, 06/14/19 9:10:00 EDT, Route to Pharmacy Electronically, [facility] #50054, 167.64, cm, 04/24/19 16:16:00 EST, Height, 100.4, [...] 5 Refills, Maintenance, 04/16/19 13:06:00 EST, Tablet, [facility] #48864, 167.64, cm, 03/02/19 10:23:00 EST, Height, 100.4, [...] DAILY, # 44 mL, 0 Refills, Maintenance, [facility] #47420, 29, SPRAY TWICE IN EACH NOSTRIL FOUR [...] each, 5 Refills, Maintenance, 06/05/18 19:53:47 EDT, [facility], 1 sprays Nares, Both 2 times a [...] 11 Refills, Maintenance, 03/02/19 10:19:00 EST, Capsule, [facility] #89820, 1 capsule By Mouth Daily, 167.64, cm, [...] 4 HOURS NEEDED FOR NAUSEA OR VOMITING, [facility] #62348 Start Date: 12/05/18 Status: Ordered raised toilet [...] Maintenance, 06/02/17 13:39:59, Route to Pharmacy Electronically, [id number], [facility] [address] Start Date: 06/02/17 Status: Ordered Transfer Bench [...]
--- OUTSIDE RECORDS SUMMARY | 2023-09-12 11:33 | XMS_ITS | Continuity of Care Document ---
Author Organization [facility] Address [address] [place] [phone]- Care Team Providers Care Presiding Judge Name Role Phone Cesairo VALDEZ, Lisseth Hancock Primary Care Physician [facility]counter [facility] Date(s): 11/12/19 - 12/12/19 [facility] [address] [place] [address]- [facility] Attending Physician: Janette Connelly Admitting Physician: Janette Connelly Referring Physician: AdmtrJanette Allergies, Adverse Reactions, Alerts Substance Reaction Severity Status sulfADIAZINE rash Active morphine rash & swelling Active sertraline 1 QT wave change Active sulfa drugs rash Active NSAIDs 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 Refills 11, Maintenance, 11/24/17 13:49:05 EDT, Aerosol, Route to Pharmacy Electronically, [id number], [facility] [id number], Compound Start Date: 11/24/17 Status: Ordered albuterol-ipratropium 3 mg-0.5 mg/3 ml inhalation solution 1 vials, Inhalation, 4 times a day, # 180 mL, 5 Refills, Maintenance, 07/30/19 11:02:00 EDT, [facility] #[id number], 15, INHALE CONTENTS OF 1 VIAL VIA NEBULIZER FOUR TIMES DAILY, 167.64, cm, 04/24/19 16:16:00 EST, Height, 100.4, kg, 08/03/18 10:1... Start Date: 07/30/19 Status: Ordered amLODIPine 10 mg oral tablet 1 tablet, By Mouth, Daily, # 30 tablet, 6 Refills, Maintenance, 10/04/19 12:22:00 EDT, [facility] #[id number], 167.64, cm, 04/24/19 16:16:00 EST, Height, 100.4, kg, 08/03/18 10:14:00 EDT, Dry Weight Start Date: 10/04/19 Status: Ordered aspirin 81 mg oral delayed release tablet 81 mg, 1, tablet, By Mouth, Daily, # 30 tablet, Refills 5, Tot. Refills 5, Maintenance, 11/02/19 11:39:00 EDT, Route to Pharmacy Electronically, [facility] #[id number], 167.64, cm, 11/02/19 10:58:00 EDT, Height, 100.4, kg, 08/03/18 10:14:00 EDT,... Start Date: 11/02/19 Status: Ordered baclofen 10 mg oral tablet 1, tablet, By Mouth, 3 times a day, # 60 tablet, Refills 2, Tot. Refills 2, Maintenance, 11/22/19 8:56:00 EDT, Route to Pharmacy Electronically, [facility] #[id number], 167.64, cm, 11/12/19 15:34:00 EDT, Height, 100.4, kg, 08/03/18 10:14:00 EDT,... Start Date: 11/22/19 Status: Ordered baclofen 10 mg oral tablet 1, tablet, By Mouth, 3 times a day, # 60 tablet, Refills 2, Tot. Refills 2, Maintenance, 06/14/19 9:10:00 EDT, Route to Pharmacy Electronically, [facility] #[id number], 167.64, cm, 04/24/19 16:16:00 EST, Height, 100.4, [...] 5 Refills, Maintenance, 04/16/19 13:06:00 EST, Tablet, [facility] #[id number], 167.64, cm, 03/02/19 10:23:00 EST, Height, 100.4, [...] DAILY, # 44 mL, 0 Refills, Maintenance, [facility] #81234, 29, SPRAY TWICE IN EACH NOSTRIL FOUR [...] each, 5 Refills, Maintenance, 06/05/18 19:53:47 EDT, [facility], 1 sprays Nares, Both 2 times a [...] 11 Refills, Maintenance, 03/02/19 10:19:00 EST, Capsule, [facility] #[id number], 1 capsule By Mouth Daily, 167.64, cm, [...] 4 HOURS NEEDED FOR NAUSEA OR VOMITING, [facility] #[id number] Start Date: 12/05/18 Status: Ordered raised toilet [...] Maintenance, 06/02/17 13:39:59, Route to Pharmacy Electronically, [id number], [facility] [address] Start Date: 06/02/17 Status: Ordered Transfer Bench [...]
--- OUTSIDE RECORDS SUMMARY | 2023-09-12 11:33 | XMS_ITS | Continuity of Care Document ---
Author Organization 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 Refills 11, Maintenance, 11/24/17 13:49:05 EDT, Aerosol, Route to Pharmacy Electronically, [id number], [facility] [id number], Compound Start Date: 11/24/17 Status: Ordered albuterol-ipratropium 3 mg-0.5 mg/3 ml inhalation solution 1 vials, Inhalation, 4 times a day, # 180 mL, 5 Refills, Maintenance, 07/30/19 11:02:00 EDT, [facility] #[id number], 15, INHALE CONTENTS OF 1 VIAL VIA NEBULIZER FOUR TIMES DAILY, 167.64, cm, 04/24/19 16:16:00 EST, Height, 100.4, kg, 08/03/18 10:1... Start Date: 07/30/19 Status: Ordered amLODIPine 10 mg oral tablet 1 tablet, By Mouth, Daily, # 30 tablet, 6 Refills, Maintenance, 10/04/19 12:22:00 EDT, [facility] #[id number], 167.64, cm, 04/24/19 16:16:00 EST, Height, 100.4, kg, 08/03/18 10:14:00 EDT, Dry Weight Start Date: 10/04/19 Status: Ordered aspirin 81 mg oral delayed release tablet 81 mg, 1, tablet, By Mouth, Daily, # 30 tablet, Refills 5, Tot. Refills 5, Maintenance, 11/02/19 11:39:00 EDT, Route to Pharmacy Electronically, [facility] #[id number], 167.64, cm, 11/02/19 10:58:00 EDT, Height, 100.4, kg, 08/03/18 10:14:00 EDT,... Start Date: 11/02/19 Status: Ordered baclofen 10 mg oral tablet 1, tablet, By Mouth, 3 times a day, # 60 tablet, Refills 2, Tot. Refills 2, Maintenance, 11/22/19 8:56:00 EDT, Route to Pharmacy Electronically, [facility] #[id number], 167.64, cm, 11/12/19 15:34:00 EDT, Height, 100.4, kg, 08/03/18 10:14:00 EDT,... Start Date: 11/22/19 Status: Ordered baclofen 10 mg oral tablet 1, tablet, By Mouth, 3 times a day, # 60 tablet, Refills 2, Tot. Refills 2, Maintenance, 06/14/19 9:10:00 EDT, Route to Pharmacy Electronically, [facility] #[id number], 167.64, cm, 04/24/19 16:16:00 EST, Height, 100.4, [...] 5 Refills, Maintenance, 04/16/19 13:06:00 EST, Tablet, [facility] #[id number], 167.64, cm, 03/02/19 10:23:00 EST, Height, 100.4, [...] DAILY, # 44 mL, 0 Refills, Maintenance, [facility] #59843, 29, SPRAY TWICE IN EACH NOSTRIL FOUR [...] each, 5 Refills, Maintenance, 06/05/18 19:53:47 EDT, [place], 1 sprays Nares, Both 2 times a [...] 11 Refills, Maintenance, 03/02/19 10:19:00 EST, Capsule, [facility] #83821, 1 capsule By Mouth Daily, 167.64, cm, [...] 4 HOURS NEEDED FOR NAUSEA OR VOMITING, [facility] #[id number] Start Date: 12/05/18 Status: Ordered raised toilet [...] Maintenance, 06/02/17 13:39:59, Route to Pharmacy Electronically, [id number], [facility] [address] Start Date: 06/02/17 Status: Ordered Transfer Bench [...]
--- OUTSIDE RECORDS SUMMARY | 2023-09-12 11:33 | XMS_ITS | Continuity of Care Document ---
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 Start Date: 01/26/23 Status: Ordered albuterol CFC free 90 mcg/inh inhalation aerosol 2, puffs, Inhalation, 4 times a day, PRN, Dispense brand as required by insurance, # 1 each, Refills 11, Tot. Refills 11, Maintenance, 01/26/23 14:00:00 EST, Aerosol, Route to Pharmacy Electronically, [id number], [facility]. Start Date: 01/26/23 Status: Ordered albuterol-ipratropium 3 mg-0.5 mg/3 ml inhalation solution 1 vials, Inhalation, 4 times a day, # 180 mL, 11 Refills, Maintenance, 01/27/23 9:25:00 EST, [facility] #[id number], 15, 1 vials Inhalation 4 times a [...] tablet, 6 Refills, Maintenance, 12/07/22 16:46:00 EDT, [facility] #[id number], 165, cm, 12/06/22 17:39:00 EDT, Height, 88.2, kg, 05/26/22 7:52:00EDT, Dry Weight Start Date: 12/07/22 Status: Ordered amlodipine-benazepril 5 mg-10 mg oral capsule 1 capsule, By Mouth, Daily, TO. REPLACE BEFORE PRESCRIPTION AMLODIPINE, # 90 capsule, 0 Refills, Maintenance, 04/05/23 10:10:00 EST, [facility] #[id number], 90, TAKE 1 CAPSULE BY MOUTH DAILY [...] tablet, 3 Refills, Maintenance, 01/26/23 14:00:00 EST, [facility] #[id number], 165, cm, 01/26/23 13:31:00 EST, Height, 88.2, kg, 05/26/22 7:52:00 EDT, Dry Weight Start Date: 01/26/23 Stop Date: 01/21/24 Status: Ordered clonazePAM 1 mg oral tablet 1 tablet = 1 mg, By Mouth, 3 times a day, To use sparingly; to fill on/after 04/03/2023, # 90 tablet, 1 Refills, Maintenance, 03/29/23 12:46:00 EST, Tablet, [facility] #[id number], Partial fill upon patient request if the [...] each, 11 Refills, Maintenance, 09/25/21 11:17:00 EDT, Pain[place], [facility] #[id number], 1 sprays Nares, Both 2 times a day,x30 days, 165, cm, 09/25/21 11:04:00 EDT, Height, 96, kg, 07/13/21 10:52:00 EDT, Dry... Start Date: 09/25/21 Stop Date: 09/20/22 Status: Ordered fluconazole 150 mg oral tablet 1 tablet = 150 mg, By Mouth, Once, Repeat dose if still having symptoms in 72 hours, # 2 tablet, 1 Refills, Soft Stop, 04/27/23 14:34:00 EST, Tablet, [facility] #[id number], Partial fill upon patient request if the prescription is for a schedule... Start Date: 04/27/23 Status: Ordered fluticasone 250 mcg/inh inhalation powder 1 puffs, Inhalation, 2 times a day, dispense brand as required by insurance, # 120 each, 11 Refills, Maintenance, 04/29/23 9:44:00 EST, Powder, [facility] #[id number], Partial fill upon patient request if the [...] capsule, 4 Refills, Maintenance, 01/26/23 14:02:00 EST, [facility] #07975, 165, cm, 01/26/23 13:31:00 EST, Height, 88.2, [...] 01/26/23 14:02:00 EST, Route to Pharmacy Electronically, [facility] #[id number], 165, cm, 01/26/23 13:31:00 EST, Height, 88.2, [...] Team Personnel Name: Tristin Hunt RN Position: [facility] RN Member Role: Primary Care Nurse Name: Lisseth Nassar NP Position: [facility] PCO Associate Professional Member Role: PCP Address: Address: [address] [place] [address]- Name: Edenilson Puckett MD Position: [facility] RURAL MAIL CARRIER MD Member Role: Lifetime RURAL MAIL CARRIER Physician Address: Address: [address] [place] [address]- [place] Name: Jovana Park RN Position: [facility] SN RN Member Role: Primary Care Nurse Name: Chidi Clark DO Position: [facility] Renal MD Member Role: Lifetime Consulting Physician Address: Address: [address] [place] [address] [address] [facility] [place] [address]- [place] Name: Mireya Torres RN Position: S RN Member Role: Primary Care Nurse Name: Starr Harper RN Position: [facility] SN RN Member Role: Primary Care Nurse Name: Kelly Maddox RN Position: S RN Member Role: Primary Care Nurse Care Team Related Persons Name: MARYA ADRIAN Address: home [address] [place] [address] Name: MORALES HOWELL Address: home [address] [place] [id number]
--- OUTSIDE RECORDS SUMMARY | 2023-09-12 11:33 | XMS_ITS | Continuity of Care Document ---
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 Start Date: 01/26/23 Status: Ordered albuterol CFC free 90 mcg/inh inhalation aerosol 2, puffs, Inhalation, 4 times a day, PRN, Dispense brand as required by insurance, # 1 each, Refills 11, Tot. Refills 11, Maintenance, 01/26/23 14:00:00 EST, Aerosol, Route to Pharmacy Electronically, [id number], [facility]. Start Date: 01/26/23 Status: Ordered albuterol-ipratropium 3 mg-0.5 mg/3 ml inhalation solution 1 vials, Inhalation, 4 times a day, # 180 mL, 11 Refills, Maintenance, 01/27/23 9:25:00 EST, [facility] #[id number], 15, 1 vials Inhalation 4 times a [...] tablet, 6 Refills, Maintenance, 05/30/23 14:38:00 EDT, [facility] #[id number], 165, cm, 05/30/23 14:22:00 EDT, Height, 88.2, kg, 05/26/22 7:52:00EDT, Dry Weight Start Date: 05/30/23 Stop Date: 02/18/25 Status: Ordered amlodipine-benazepril 5 mg-10 mg oral capsule 1 capsule, By Mouth, Daily, TO. REPLACE BEFORE PRESCRIPTION AMLODIPINE, # 90 capsule, 3 Refills, Maintenance, 05/30/23 14:38:00 EDT, [facility] #11524, 90, 1 capsule By Mouth Daily,Instr:TO. REPLACE [...] tablet, 3 Refills, Maintenance, 01/26/23 14:00:00 EST, [facility] #65053, 165, cm, 01/26/23 13:31:00 EST, Height, 88.2, kg, 05/26/22 7:52:00 EDT, Dry Weight Start Date: 01/26/23 Stop Date: 01/21/24 Status: Ordered clonazePAM 2 mg oral tablet 0.5 tablet = 1 mg, By Mouth, 3 times a day, please note dosage strength, # 45 tablet, 1 Refills, Maintenance, 07/04/23 11:11:00 EDT, Tablet, [facility] #37418, Partial fill upon patient request if the [...] each, 11 Refills, Maintenance, 09/25/21 11:17:00 EDT, [place], [facility] #08154, 1 sprays Nares, Both 2 times a day,x30 days, 165, cm, 09/25/21 11:04:00 EDT, Height, 96, kg, 07/13/21 10:52:00 EDT, Dry... Start Date: 09/25/21 Stop Date: 09/20/22 Status: Ordered fluconazole 150 mg oral tablet 1 tablet = 150 mg, By Mouth, Once, Repeat dose if still having symptoms in 72 hours, # 2 tablet, 1 Refills, Soft Stop, 04/27/23 14:34:00 EST, [facility] #96362, Partial fill upon patient request if the prescription is for a schedule... Start Date: 04/27/23 Status: Ordered fluticasone 250 mcg/inh inhalation powder 1 puffs, Inhalation, 2 times a day, dispense brand as required by insurance, # 120 each, 11 Refills, Maintenance, 04/29/23 9:44:00 EST, Powder, [facility] #[id number], Partial fill upon patient request if the [...] capsule, 4 Refills, Maintenance, 01/26/23 14:02:00 EST, [facility] #96014, 165, cm, 01/26/23 13:31:00 EST, Height, 88.2, [...] 01/26/23 14:02:00 EST, Route to Pharmacy Electronically, [facility] #[id number], 165, cm, 01/26/23 13:31:00 EST, Height, 88.2, [...] Team Personnel Name: Tristin Hunt RN Position: [facility] RN Member Role: Primary Care Nurse Name: Lisseth Nassar NP Position: [facility] PCO Associate Professional Member Role: PCP Address: Address: [address] [place] [address]- Name: Edenilson Puckett MD Position: [facility] TEACHER SPECIALIST MD Member Role: Lifetime TEACHER SPECIALIST Physician Address: Address: [address] [place] [id number]- Name: Jovana Park RN Position: [facility] SN RN Member Role: Primary Care Nurse Name: Chidi Clark DO Position: [facility] Renal MD Member Role: Lifetime Consulting Physician Address: Address: [address] [place], [place] [address] [place] [address]- Name: Mireya Torres RN Position: [facility] RN Member Role: Primary Care Nurse Name: Starr Harper RN Position: [facility] AMB Nurse Member Role: Primary Care Nurse Name: Kelly Maddox RN Position: [facility] RN Member Role: Primary Care Nurse Care Team Related Persons Name: MARYA ADRIAN Address: home [address] [place] [address] Name: MORALES HOWELL Address: home [address] [place] [id number]
--- OUTSIDE RECORDS SUMMARY | 2023-09-12 11:33 | XMS_ITS | Continuity of Care Document ---
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 Start Date: 01/26/23 Status: Ordered albuterol CFC free 90 mcg/inh inhalation aerosol 2, puffs, Inhalation, 4 times a day, PRN, Dispense brand as required by insurance, # 1 each, Refills 11, Tot. Refills 11, Maintenance, 01/26/23 14:00:00 EST, Aerosol, Route to Pharmacy Electronically, [id number], [facility]. Start Date: 01/26/23 Status: Ordered albuterol-ipratropium 3 mg-0.5 mg/3 ml inhalation solution 1 vials, Inhalation, 4 times a day, # 180 mL, 11 Refills, Maintenance, 01/27/23 9:25:00 EST, [facility] #[id number], 15, 1 vials Inhalation 4 times a [...] tablet, 6 Refills, Maintenance, 12/07/22 16:46:00 EDT, [facility] #70324, 165, cm, 12/06/22 17:39:00 EDT, Height, 88.2, kg, 05/26/22 7:52:00EDT, Dry Weight Start Date: 12/07/22 Status: Ordered amlodipine-benazepril 5 mg-10 mg oral capsule 1 capsule, By Mouth, Daily, To replace prior prescription (amlodipine)., # 90 capsule, 11 Refills, Maintenance, 03/01/22 16:04:00 EST, Capsule, [facility] #96583, Partial fill upon patient request if the [...] tablet, 3 Refills, Maintenance, 01/26/23 14:00:00 EST, [facility] #[id number], 165, cm, 01/26/23 13:31:00 EST, Height, 88.2, [...] 05/20/22 Status: Ordered disposable andrea pads disposable andera pads, See Instructions, # 90 each, Refills [...] each, 11 Refills, Maintenance, 09/25/21 11:17:00 EDT, [place], [facility] #95215, 1 sprays Nares, Both 2 times a day,x30 days, 165, cm, 09/25/21 11:04:00 EDT, Height, 96, kg, 07/13/21 10:52:00 EDT, Dry... Start Date: 09/25/21 Stop Date: 09/20/22 Status: Ordered fluconazole 150 mg oral tablet 1 tablet = 150 mg, By Mouth, Once, Repeat dose if still having symptoms in 72 hours, # 2 tablet, 1 Refills, Soft Stop, 01/26/23 14:19:00 EST, Tablet, [facility] #81341, Partial fill upon patient request if the [...] 11 Refills, Maintenance, 01/26/23 14:04:00 EST, Aerosol, [facility] #75286, Partial fill upon patient request if the prescription is for a s... Start Date: 01/26/23 Status: Ordered mupirocin 2% topical ointment 1 application, Topically, 3 times a day, # 30 Gm, 2 Refills, Acute 03/13/23 15:24:00 EST, 09/01/22 15:23:00 EDT, Ointment, [facility] #55908, Partial fill upon patient request if the [...] capsule, 4 Refills, Maintenance, 01/26/23 14:02:00 EST, [facility] #[id number], 165, cm, 01/26/23 13:31:00 EST, Height, 88.2, [...] 01/26/23 14:02:00 EST, Route to Pharmacy Electronically, [facility] #[id number], 165, cm, 01/26/23 13:31:00 EST, Height, 88.2, [...] Team Personnel Name: Tristin Hunt RN Position: [facility] RN Member Role: Primary Care Nurse Name: Lisseth Nassar NP Position: [facility] PCO Associate Professional Member Role: PCP Address: Address: [address] [place] [address]- Name: Edenilson Puckett MD Position: [facility] WAREHOUSE TEAM MEMBER MD Member Role: Lifetime WAREHOUSE TEAM MEMBER Physician Address: Address: [address] [place] [address]- Name: Jovana Park RN Position: [facility] SN RN Member Role: Primary Care Nurse Name: Chidi Clark DO Position: [facility] Renal MD Member Role: Lifetime Consulting Physician Address: Address: [address] [place] [address] [address] [facility] [place] [address]- Name: Mireya Torres RN Position: S RN Member Role: Primary Care Nurse Name: Starr Harper RN Position: [facility] SN RN Member Role: Primary Care Nurse Name: Kelly Maddox RN Position: [facility] RN Member Role: Primary Care Nurse Care Team Related Persons Name: KAYLAH MARYA Address: home [address] [place] [address] Name: MORALES HOWELL Address: home [address] [place] [address]
--- OUTSIDE RECORDS SUMMARY | 2023-09-12 11:33 | XMS_ITS | Continuity of Care Document ---
Author Organization [facility] Address [address] [place] [address]- Care Team Providers Care Tentmaker Name Role Phone Cesario VALDEZ, Lisseth Hancock Primary Care Physician [place] [facility] [place] 09/16/20 - 10/16/[address] [address] Attending Physician: Janette Connelly Admitting Physician: Janette Connelly Referring Physician: AdmtrJanette Allergies, Adverse Reactions, Alerts Substance Reaction Severity Status sulfADIAZINE rash Active morphine rash & swelling Active sertraline 1 QT wave change Active sulfa drugs rash Active Bactrim rash Active NSAIDs 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 Active 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 Refills 11, Maintenance, 11/24/17 13:49:05 EDT, Aerosol, Route to Pharmacy Electronically, [id number], [facility], Compound Start Date: 11/24/17 Status: Ordered albuterol-ipratropium 3 mg-0.5 mg/3 ml inhalation solution 1 vials, Inhalation, 4 times a day, # 180 mL, 5 Refills, Maintenance, 07/30/19 11:02:00 EDT, [facility] #[id number], 15, INHALE CONTENTS OF 1 VIAL VIA NEBULIZER FOUR TIMES DAILY, 167.64, cm, 04/24/19 16:16:00 EST, Height, 100.4, kg, 08/03/18 10:1... Start Date: 07/30/19 Status: Ordered amLODIPine 10 mg oral tablet 1 tablet, By Mouth, Daily, # 30 tablet, 5 Refills, Maintenance, 05/06/20 12:30:00 EST, [facility] #[id number], 167.64, cm, 03/25/20 14:59:00 EST, Height, 100.4, kg, 08/03/18 10:14:00 EDT, Dry Weight Start Date: 05/06/20 Status: Ordered aspirin 81 mg oral delayed release tablet 81 mg, 1, tablet, By Mouth, Daily, # 30 tablet, Refills 5, Tot. Refills 5, Maintenance, 11/02/19 11:39:00 EDT, Route to Pharmacy Electronically, [facility] #[id number], 167.64, cm, 11/02/19 10:58:00 EDT, Height, 100.4, kg, 08/03/18 10:14:00 EDT,... Start Date: 11/02/19 Status: Ordered bacitracin topical 500 u/gm ointment 1 application, Topically, 4 times a day, # 30 Gm, 0 Refills, Maintenance, 09/02/20 15:20:00 EDT, Ointment, [facility] #[id number], Partial fill upon patient request if the prescription is for a schedule II opioid drug., 1 application Topically 4... Start Date: 09/02/20 Stop Date: 09/12/20 Status: Ordered baclofen 10 mg oral tablet 1, tablet, By Mouth, 3 times a day, # 60 tablet, Refills 0, Tot. Refills 0, Maintenance, 02/25/20 13:59:00 EST, Route to Pharmacy Electronically, [facility] #[id number], 167.64, cm, 11/12/19 15:34:00 EDT, Height, 100.4, [...] tablet, 11 Refills, Maintenance, 01/11/20 10:43:00 EDT, [facility] #[id number], 167.64, cm, 11/12/19 15:34:00 EDT, Height, 100.4, [...] DAILY, # 44 mL, 0 Refills, Maintenance, [id number], 29, SPRAY TWICE IN EACH NOSTRIL FOUR [...] each, 5 Refills, Maintenance, 06/05/18 19:53:47 EDT, [place], 1 sprays Nares, Both 2 times a [...] 11 Refills, Maintenance, 03/02/19 10:19:00 EST, Capsule, [facility] #76157, 1 capsule By Mouth Daily, 167.64, cm, [...] 4 HOURS NEEDED FOR NAUSEA OR VOMITING, [facility] #41281 Start Date: 12/05/18 Status: Ordered raised toilet [...] Maintenance, 06/02/17 13:39:59, Route to Pharmacy Electronically, [id number], [facility] [address] Start Date: 06/02/17 Status: Ordered tiZANidine 2 mg oral tablet 2 mg, 1, tablet, By Mouth, Every 8 hours, PRN, # 90 tablet, Refills 3, Tot. Refills 3, Maintenance,as needed for muscle spasm, 02/08/20 9:24:00 EST, Route to Pharmacy Electronically, [facility] #[id number], Partial fill upon patient request, 167... Start [...]
--- OUTSIDE RECORDS SUMMARY | 2023-09-12 11:33 | XMS_ITS | Continuity of Care Document ---
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 Refills 11, Maintenance, 11/24/17 13:49:05 EDT, Aerosol, Route to Pharmacy Electronically, [id number], [facility] [address], Compound Start Date: 11/24/17 Status: Ordered albuterol-ipratropium 3 mg-0.5 mg/3 ml inhalation solution 1 vials, Inhalation, 4 times a day, # 180 mL, 5 Refills, Maintenance, 07/30/19 11:02:00 EDT, [facility] #34245, 15, INHALE CONTENTS OF 1 VIAL VIA NEBULIZER FOUR TIMES DAILY, 167.64, cm, 04/24/19 16:16:00 EST, Height, 100.4, kg, 08/03/18 10:1... Start Date: 07/30/19 Status: Ordered amlodipine-benazepril 5 mg-10 mg oral capsule 1 capsule, By Mouth, Daily, To replace prior prescription (amlodipine)., # 30 capsule, 3 Refills, Maintenance, 03/10/21 15:34:00 EST, Capsule, [facility] #56109, Partial fill upon patient request if the prescription is for a schedule II opio... Start Date: 03/10/21 Status: Ordered aspirin 81 mg oral delayed release tablet 81 mg, 1, tablet, By Mouth, Daily, # 30 tablet, Refills 5, Tot. Refills 5, Maintenance, 11/02/19 11:39:00 EDT, Route to Pharmacy Electronically, [facility] #31078, 167.64, cm, 11/02/19 10:58:00 EDT, Height, 100.4, kg, 08/03/18 10:14:00 EDT,... Start Date: 11/02/19 Status: Ordered bacitracin topical 500 u/gm ointment 1 application, Topically, 4 times a day, # 30 Gm, 0 Refills, Maintenance, 09/02/20 15:20:00 EDT, Ointment, [facility] #59134, Partial fill upon patient request if the prescription is for a schedule II opioid drug., 1 application Topically 4... Start Date: 09/02/20 Stop Date: 09/12/20 Status: Ordered baclofen 10 mg oral tablet 1, tablet, By Mouth, 3 times a day, # 60 tablet, Refills 0, Tot. Refills 0, Maintenance, 02/25/20 13:59:00 EST, Route to Pharmacy Electronically, [facility] #44612, 167.64, cm, 11/12/19 15:34:00 EDT, Height, 100.4, [...] tablet, 11 Refills, Maintenance, 01/11/20 10:43:00 EDT, [facility] #47677, 167.64, cm, 11/12/19 15:34:00 EDT, Height, 100.4, [...] 44 mL, 0 Refills, Maintenance[facility]87693, 29, SPRAY TWICE IN EACH NOSTRIL FOUR [...] 07/18/20 12:54:00 EDT, [facility] Start Date: 07/18/20 Stop Date: 07/13/21 Status: Ordered Flonase 50 mcg/inh nasal spray 1 sprays, Nares, Both, 2 times a day, # 1 each, 5 Refills, Maintenance, 06/05/18 19:53:47 EDT, [place], 1 sprays Nares, Both 2 times a [...] Acute 03/13/22 14:45:00 EST, 03/20/2213:45:00 EST, Ointment, [facility] #[id number], Partial fill upon patient request if the [...] 11 Refills, Maintenance, 03/02/19 10:19:00 EST, Capsule, [facility] #99907, 1 capsule By Mouth Daily, 167.64, cm, [...] 4 HOURS NEEDED FOR NAUSEA OR VOMITING, [facility] #[id number] Start Date: 12/05/18 Status: Ordered raised toilet [...] Maintenance, 06/02/17 13:39:59, Route to Pharmacy Electronically, [id number], [facility] [address] Start Date: 06/02/17 Status: Ordered tiZANidine 2 mg oral tablet 2 mg, 1, tablet, By Mouth, Every 8 hours, PRN, # 90 tablet, Refills 3, Tot. Refills 3, Maintenance,as needed for muscle spasm, 01/30/21 8:11:00 EST, Route to Pharmacy Electronically, [facility] #[id number], Partial fill upon patient request, 167... Start [...]
--- OUTSIDE RECORDS SUMMARY | 2023-09-12 11:33 | XMS_ITS | Continuity of Care Document ---
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 Immunizations Given and Recorded Vaccine Date Status [...] 08/24/23 12:23:00 EDT, Route to Pharmacy Electronically, [facility], Partial fill upon patient request [...] 1 Refills, Maintenance, 08/03/23 8:28:00 EDT, Tablet, [facility] #[id number], Partial fill upon patient request if the [...] 11 Refills, Maintenance, 04/29/23 9:44:00 EST, Powder, [facility] #22750, Partial fill upon patient request if the [...] 08/24/23 12:23:00 EDT, Route to Pharmacy Electronically, [facility], Partial fill upon patient request [...] 01/26/23 14:02:00 EST, Route to Pharmacy Electronically, [facility] #[id number], 165, cm, 01/26/23 13:31:00 EST, Height, 88.2, [...] Team Personnel Name: Siria Lopes RN Position: [facility] RN Member Role: Primary Care Nurse Name: Tristin Hunt RN Position: [facility] RN Member Role: Primary Care Nurse Name: Lisseth Nassar NP Position: [facility] PCO Associate Professional Member Role: PCP Address: Address: [address] [place] [address]- Name: Edenilson Puckett MD Position: [facility] HEAD OF STOCK MD Member Role: [employer] HEAD OF STOCK Physician Address: Address: [address] [place] [address]- Name: Jovana Park RN Position: [facility] SN RN Member Role: Primary Care Nurse Name: Ana Maria Grady RN Position: [facility] RN Member Role: Primary Care Nurse Name: Chidi Clark DO Position: [facility] Renal MD Member Role: Lifetime Consulting Physician Address: Address: [address] [place], [place] [address] [place] [address]- Name: Mireya Torres RN Position: [facility] RN Member Role: Primary Care Nurse Name: Starr Harper RN Position: [facility] AMB Nurse Member Role: Primary Care Nurse Name: Tristin Hill RN Position: [facility] RN Member Role: Primary Care Nurse Name: Kelly Maddox RN Position: [facility] RN Member Role: Primary Care Nurse Care Team Related Persons Name: MARYA ADRIAN Address: [place] [address] Name: MORALES HOWELL Address: home [address] [place] [address]
--- OUTSIDE RECORDS SUMMARY | 2023-09-12 11:34 | XMS_ITS | Continuity of Care Document ---
Author Organization [facility] Address [address] [place] [address]- Care Team Providers Care Compressor Station Operator Name Role Phone Cesario TELESCOPE REPAIRER, Lisseth Hancock Primary Care Physician [phone] [place] [facility] [place] 04/[place]/21 - 06/27/21 [facility] [address] [place] [address]- Attending Physician: Lyle Zhang MD Admitting Physician: Lyle Zhang MD Referring Physician: Lyle Zhang MD Allergies, Adverse Reactions, Alerts Substance Reaction Severity Status sulfADIAZINE rash Active morphine rash & swelling Active sertraline 1 QT wave change Active sulfa drugs rash Active NSAIDs 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 #[id number], 167.64, cm, 04/24/19 16:16:00 EST, Height, 100.4, kg, 08/03/18 10:14:00 EDT, Dry Weight Start Date: 05/07/19 Status: Ordered albuterol CFC free 90 mcg/inh inhalation aerosol 2, puffs, Inhalation, 4 times a day, PRN, # 25 Gm, Refills 11, Tot. Refills 11, Maintenance, 11/24/17 13:49:05 EDT, Aerosol, Route to Pharmacy Electronically, [id number], [facility] [address]4581, Compound Start Date: 11/24/17 Status: Ordered albuterol-ipratropium 3 mg-0.5 mg/3 ml inhalation solution 1 vials, Inhalation, 4 times a day, # 180 mL, 5 Refills, Maintenance, 07/30/19 11:02:00 EDT, [facility] #[id number], 15, INHALE CONTENTS OF 1 VIAL VIA NEBULIZER FOUR TIMES DAILY, 167.64, cm, 04/24/19 16:16:00 EST, Height, 100.4, kg, 08/03/18 10:1... Start Date: 07/30/19 Status: Ordered amlodipine-benazepril 5 mg-10 mg oral capsule 1 capsule, By Mouth, Daily, To replace prior prescription (amlodipine)., # 30 capsule, 11 Refills, Maintenance, 04/23/21 14:51:00 EST, Capsule, [facility] #34314, Partial fill upon patient request if the prescription is for a schedule II opi... Start Date: 04/23/21 Status: Ordered aspirin 81 mg oral delayed release tablet 81 mg, 1, tablet, By Mouth, Daily, # 30 tablet, Refills 5, Tot. Refills 5, Maintenance, 11/02/19 11:39:00 EDT, Route to Pharmacy Electronically, [facility] #[id number], 167.64, cm, 11/02/19 10:58:00 EDT, Height, 100.4, kg, 08/03/18 10:14:00 EDT,... Start Date: 11/02/19 Status: Ordered bacitracin topical 500 u/gm ointment 1 application, Topically, 4 times a day, # 30 Gm, 0 Refills, Maintenance, 09/02/20 15:20:00 EDT, Ointment, [facility] #74091, Partial fill upon patient request if the prescription is for a schedule II opioid drug., 1 application Topically 4... Start Date: 09/02/20 Stop Date: 09/12/20 Status: Ordered baclofen 10 mg oral tablet 1, tablet, By Mouth, 3 times a day, # 60 tablet, Refills 0, Tot. Refills 0, Maintenance, 02/25/20 13:59:00 EST, Route to Pharmacy Electronically, [facility] #75458, 167.64, cm, 11/12/19 15:34:00 EDT, Height, 100.4, [...] tablet, 11 Refills, Maintenance, 01/11/20 10:43:00 EDT, [facility] #34951, 167.64, cm, 11/12/19 15:34:00 EDT, Height, 100.4, [...] DAILY, # 44 mL, 0 Refills, Maintenance, [facility] #77830, 29, SPRAY TWICE IN EACH NOSTRIL FOUR [...] each, 5 Refills, Maintenance, 06/05/18 19:53:47 EDT, [place], 1 sprays Nares, Both 2 times a [...] Acute 03/13/22 14:45:00 EST, 03/20/2213:45:00 EST, Ointment, [facility] #08487, Partial fill upon patient request if the [...] 11 Refills, Maintenance, 03/02/19 10:19:00 EST, Capsule, [facility] #11974, 1 capsule By Mouth Daily, 167.64, cm, [...] NEEDED FOR NAUSEA [facility] VOMITING, [facility] Start Date: 12/05/18 Status: Ordered raised toilet [...] Maintenance, 06/02/17 13:39:59, Route to Pharmacy Electronically, [id number], [facility] [address] Start Date: 06/02/17 Status: Ordered tiZANidine 2 mg oral tablet 2 mg, 1, tablet, By Mouth, Every 8 hours, PRN, # 90 tablet, Refills 3, Tot. Refills 3, Maintenance,as needed for muscle spasm, 06/18/21 10:33:00 EDT, [facility] Electronically, [facility], Partial fill upon patient request, 16... Start [...]
--- OUTSIDE RECORDS SUMMARY | 2023-09-12 11:34 | XMS_ITS | Continuity of Care Document ---
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 Immunizations Given and Recorded Vaccine Date [...] 08/24/23 12:23:00 EDT, Route to Pharmacy Electronically, [facility], Partial fill upon patient request [...] 1 Refills, Maintenance, 08/03/23 8:28:00 EDT, Tablet, [facility] #45208, Partial fill upon patient request if the [...] 11 Refills, Maintenance, 04/29/23 9:44:00 EST, Powder, [facility] #59471, Partial fill upon patient request if the [...] 08/24/23 12:23:00 EDT, Route to Pharmacy Electronically, [facility], Partial fill upon patient request [...] 01/26/23 14:02:00 EST, Route to Pharmacy Electronically, [facility] #[id number], 165, cm, 01/26/23 13:31:00 EST, Height, 88.2, [...] Team Personnel Name: Siria Lopes RN Position: [facility] RN Member Role: Primary Care Nurse Name: Tristin Hunt RN Position: [facility] RN Member Role: Primary Care Nurse Name: Lisseth Nassar NP Position: [facility] PCO Associate Professional Member Role: PCP Address: Address: [address] [place] [address]- Name: Edenilson Puckett MD Position: [facility] LEAD NUCLEAR MEDICINE TECHNOLOGIST MD Member Role: [employer] LEAD NUCLEAR MEDICINE TECHNOLOGIST Physician Address: Address: [address] [place] [address]- Name: Jovana Park RN Position: [facility] SN RN Member Role: Primary Care Nurse Name: Ana Maria Grady RN Position: [facility] RN Member Role: Primary Care Nurse Name: Chidi Clark DO Position: [facility] Renal MD Member Role: Lifetime Consulting Physician Address: Address: [address] [place], [place] [address]E [facility] [place] [address]- Name: Mireya Torres RN Position: [facility] RN Member Role: Primary Care Nurse Name: Starr Harper RN Position: [facility] AMB Nurse Member Role: Primary Care Nurse Name: Tristin Hill RN Position: [facility] RN Member Role: Primary Care Nurse Name: Kelly Maddox RN Position: [facility] RN Member Role: Primary Care Nurse Care Team Related Persons Name: MARYA ADRIAN Address: [place] [address] Name: MORALES HOWELL Address: home [address] [place] [id number]
--- OUTSIDE RECORDS SUMMARY | 2023-09-12 11:34 | XMS_ITS | Continuity of Care Document ---
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 Immunizations Given and Recorded Vaccine Date Status [...] 08/24/23 12:23:00 EDT, Route to Pharmacy Electronically, [facility], Partial fill upon patient [...] 1 Refills, Maintenance, 08/03/23 8:28:00 EDT, Tablet, [facility] #[id number], Partial fill upon patient request if the [...] 11 Refills, Maintenance, 04/29/23 9:44:00 EST, Powder, [facility] #[id number], Partial fill upon patient request if the [...] 08/24/23 12:23:00 EDT, Route to Pharmacy Electronically, [facility], Partial fill upon patient [...] Date: 08/03/23 Stop Date: 09/02/23 Status: Ordered pantoprazole 40 mg oral delayed [...] 01/26/23 14:02:00 EST, Route to Pharmacy Electronically, [facility] #[id number], 165, cm, 01/26/23 13:31:00 EST, Height, 88.2, [...] team information Care Team Personnel Name: Moses VASQUEZ, July Arlyn Position: [facility] RN Member Role: Primary Care Nurse Name: Tristin Hunt RN Position: [facility] RN Member Role: Primary Care Nurse Name: Lisseth Nassar NP Position: [facility] PCO Associate Professional Member Role: PCP Address: Address: [address] [place] [address]- Name: Edenilson Puckett MD Position: [facility] DIRECTOR PRODUCT MD Member Role: Lifetime DIRECTOR PRODUCT Physician Address: Address: [address] [place] [address]- Name: Jovana Park RN Position: [facility] SN RN Member Role: Primary Care Nurse Name: Ana Maria Grady RN Position: [facility] RN Member Role: Primary Care Nurse Name: Chidi Clark DO Position: [facility] Renal MD Member Role: Lifetime Consulting Physician Address: Address: [address] [place], [place] [address]E [facility] [place] [address]- Name: Mireya Torres RN Position: [facility] RN Member Role: Primary Care Nurse Name: Starr Harper RN Position: [facility] Nurse Member Role: Primary Care Nurse Name: Tristin Hill RN Position: [facility] RN Member Role: Primary Care Nurse Name: Kelly Maddox RN Position: S RN Member Role: Primary Care Nurse Care Team Related Persons Name: MARYA ADRIAN Address: home [address] [place] [id number] Name: MORALES HOWELL Address: home [address] [place] [phone]
--- OUTSIDE RECORDS SUMMARY | 2023-09-12 11:34 | XMS_ITS | Continuity of Care Document ---
Author Organization [facility] Tory tayler Address [address] [place] [address] [address] [place] [address]- Care Team Providers Care Materials Clerk Name Role Phone Cesario VALDEZ, Lisseth Hancock Primary Care Physician [facility] Date[facility]s): 09/03/20 - 10/11/20 [facility] [address] [place], [place] [address] Attending Physician: Maria L SPENCER, Feliz Fraga Allergies, Adverse Reactions, Alerts Substance Reaction Severity Status sulfADIAZINE rash Active morphine rash & swelling Active sertraline 1 QT wave change Active sulfa drugs rash Active Bactrim rash Active NSAIDs 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 Refills 11, Maintenance, 11/24/17 13:49:05 EDT, Aerosol, Route to Pharmacy Electronically, [id number], [id number], Compound Start Date: 11/24/17 Status: Ordered albuterol-ipratropium 3 mg-0.5 mg/3 ml inhalation solution 1 vials, Inhalation, 4 times a day, # 180 mL, 5 Refills, Maintenance, 07/30/19 11:02:00 EDT, [facility] #[id number], 15, INHALE CONTENTS OF 1 VIAL VIA NEBULIZER FOUR TIMES DAILY, 167.64, cm, 04/24/19 16:16:00 EST, Height, 100.4, kg, 08/03/18 10:1... Start Date: 07/30/19 Status: Ordered amLODIPine 10 mg oral tablet 1 tablet, By Mouth, Daily, # 30 tablet, 5 Refills, Maintenance, 05/06/20 12:30:00 EST, [facility] #43959, 167.64, cm, 03/25/20 14:59:00 EST, Height, 100.4, kg, 08/03/18 10:14:00 EDT, Dry Weight Start Date: 05/06/20 Status: Ordered aspirin 81 mg oral delayed release tablet 81 mg, 1, tablet, By Mouth, Daily, # 30 tablet, Refills 5, Tot. Refills 5, Maintenance, 11/02/19 11:39:00 EDT, Route to Pharmacy Electronically, [facility] #[id number], 167.64, cm, 11/02/19 10:58:00 EDT, Height, 100.4, kg, 08/03/18 10:14:00 EDT,... Start Date: 11/02/19 Status: Ordered bacitracin topical 500 u/gm ointment 1 application, Topically, 4 times a day, # 30 Gm, 0 Refills, Maintenance, 09/02/20 15:20:00 EDT, Ointment, [facility] #[id number], Partial fill upon patient request if the prescription is for a schedule II opioid drug., 1 application Topically 4... Start Date: 09/02/20 Stop Date: 09/12/20 Status: Ordered baclofen 10 mg oral tablet 1, tablet, By Mouth, 3 times a day, # 60 tablet, Refills 0, Tot. Refills 0, Maintenance, 02/25/20 13:59:00 EST, Route to Pharmacy Electronically, [facility] #[id number], 167.64, cm, 11/12/19 15:34:00 EDT, Height, 100.4, [...] tablet, 11 Refills, Maintenance, 01/11/20 10:43:00 EDT, [facility] #[id number], 167.64, cm, 11/12/19 15:34:00 EDT, Height, 100.4, [...] 44 mL, 0 Refills, Maintenance, [facility] #46579, 29, SPRAY TWICE IN EACH NOSTRIL FOUR [...] 07/18/20 12:54:00 EDT, Route to Pharmacy Electronically, [email or web address] Start Date: 07/18/20 Stop Date: 07/13/21 Status: Ordered Flonase 50 mcg/inh nasal spray 1 sprays, Nares, Both, 2 times a day, # 1 each, 5 Refills, Maintenance, 06/05/18 19:53:47 EDT, [place], 1 sprays Nares, Both 2 times a [...] 11 Refills, Maintenance, 03/02/19 10:19:00 EST, Capsule, [facility] #[id number], 1 capsule By Mouth Daily, 167.64, cm, [...] 4 HOURS NEEDED FOR NAUSEA OR VOMITING, [facility] #[id number] Start Date: 12/05/18 Status: Ordered raised toilet [...] Maintenance, 06/02/17 13:39:59, Route to Pharmacy Electronically, [id number], [facility] [address] Start Date: 06/02/17 Status: Ordered tiZANidine 2 mg oral tablet 2 mg, 1, tablet, By Mouth, Every 8 hours, PRN, # 90 tablet, Refills 3, Tot. Refills 3, Maintenance,as needed for muscle spasm, 02/08/20 9:24:00 EST, Route to Pharmacy Electronically, [facility] #[id number], Partial fill upon patient request, 167... Start [...]
--- OUTSIDE RECORDS SUMMARY | 2023-09-12 11:34 | XMS_ITS | Continuity of Care Document ---
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 Start Date: 05/12/22 Status: Ordered albuterol CFC free 90 mcg/inh inhalation aerosol 2, puffs, Inhalation, 4 times a day, PRN, Dispense brand as required by insurance, # 18 Gm, [id number], Tot. Refills 11, Maintenance, 05/12/22 11:38:00 EST, Aerosol, Route to Pharmacy Electronically, [id number], [facility]... Start Date: 05/12/22 Status: Ordered albuterol-ipratropium 3 mg-0.5 mg/3 ml inhalation solution 1 vials, Inhalation, 4 times a day, # 180 mL, 11 Refills, Maintenance, 05/12/22 11:38:00 EST, [facility] #44912, 15, 1 vials Inhalation 4 times a [...] 11 Refills, Maintenance, 03/01/22 16:04:00 EST, Capsule, [facility] #37038, Partial fill upon patient request if the prescription is for a schedule II opi... Start Date: 03/01/22 Stop Date: 02/13/25 Status: Ordered apixaban 2.5 mg oral tablet 1 tablet = 2.5 mg, By Mouth, 2 times a day, # 60 tablet, 0 Refills, Maintenance, 05/28/22 8:20:00 EDT, Tablet, [facility] 3, Partial fill upon patient request [...] tablet, 11 Refills, Maintenance, 09/25/21 11:17:00 EDT, [facility] #24239, 165, cm, 09/25/21 11:04:00 EDT, Height, 96, [...] each, 11 Refills, Maintenance, 09/25/21 11:17:00 EDT, [place], [facility] #80747, 1 sprays Nares, Both 2 times a day,x30 days, 165, cm, 09/25/21 11:04:00 EDT, Height, 96, kg, 07/13/21 10:52:00 EDT, Dry... Start Date: 09/25/21 Stop Date: 09/20/22 Status: Ordered Flovent HFA 220 mcg/inh inhalation aerosol 2 puffs, Inhalation, 2 times a day, # 12 Gm, 11 Refills, Maintenance, 05/19/22 13:39:00 EST, Aerosol, [facility] #96432, Partial fill upon patient request if the [...] 05/12/22 11:38:00 EST, Route to Pharmacy Electronically, [facility] #55842, 168, cm, 05/12/2310:30:00 EST, Height, 85, kg, [...] Associate Professional Member Role: PCP Address: Address: [address] [place] [address]- Name: Edenilson Puckett MD Position: [facility] INTERNET SALES ASSOCIATE MD Member Role: Lifetime INTERNET SALES ASSOCIATE Physician Address: Address: [address] [place] [address]- Name: Jovana Park RN Position: [facility] RN Member Role: Primary Care Nurse Name: Chidi Clark DO Position: [facility] Renal MD Member Role: Lifetime Consulting Physician Address: Address: [address] [place] [address] [address] [facility] [place] [place] [address] Name: Mireya Torres RN Position: S RN Member Role: Primary Care Nurse Name: Kelly Maddox RN Position: S RN Member Role: Primary Care Nurse Care Team Related Persons Name: MARYA ADRIAN Address: home [address] [place] [address] Name: MORALES HOWELL Address: home [address] [place] [address]
--- OUTSIDE RECORDS SUMMARY | 2023-09-12 11:34 | XMS_ITS | Continuity of Care Document ---
Author Organization [facility] Address [address] [place] [address]- Care Team Providers Care Digital Media Specialist Name Role Phone Cesario ARMHOLE FELLER HANDSTITCHING MACHINE, Lisseth Hancock Primary Care Physician [phone] Encounter [facility] Date(s): 05/03/22 - 06/02/22 [facility] [address] [place] [address]- Attending Physician: Janette Connelly Admitting Physician: Janette Connelly Referring Physician: Janette Connelly Allergies, Adverse Reactions, Alerts Substance Reaction Severity Status sulfADIAZINE rash Active sertraline 1 QT wave change Active sulfa drugs rash Active Haldol Agitation Active Bactrim rash Active NSAIDs 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 Start Date: 05/12/22 Status: Ordered albuterol CFC free 90 mcg/inh inhalation aerosol 2, puffs, Inhalation, 4 times a day, PRN, Dispense brand as required by insurance, # 18 Gm, Calerpy52, Tot. Refills 11, Maintenance, 05/12/22 11:38:00 EST, Aerosol, Route to Pharmacy Electronically, [id number], [facility]... Start Date: 05/12/22 Status: Ordered albuterol-ipratropium 3 mg-0.5 mg/3 ml inhalation solution 1 vials, Inhalation, 4 times a day, # 180 mL, 11 Refills, Maintenance, 05/12/22 11:38:00 EST, [facility] #88801, 15, 1 vials Inhalation 4 times a [...] 11 Refills, Maintenance, 03/01/22 16:04:00 EST, Capsule, [facility] #73814, Partial fill upon patient request if the prescription is for a schedule II opi... Start Date: 03/01/22 Stop Date: 02/13/25 Status: Ordered apixaban 2.5 mg oral tablet 1 tablet = 2.5 mg, By Mouth, 2 times a day, # 60 tablet, 0 Refills, Maintenance, 05/28/22 8:20:00 EDT, Tablet, [facility] 3, Partial fill upon patient request [...] tablet, 11 Refills, Maintenance, 09/25/21 11:17:00 EDT, [facility] #66272, 165, cm, 09/25/21 11:04:00 EDT, Height, 96, [...] Dry Weight Start Date: 05/20/22 Status: Ordered Dilaudid 4 mg oral tablet See Instructions, PRN Pain , Severe, Take 0.5-1 tablet By Mouth Every 4 hours, # 42 tablet, 0 Refills, Acute 06/04/22 7:00:00 EDT, 05/28/22 8:20:00 EDT, Tablet, [facility] 3, Partial fillupon patient request if the prescription is for a s... Start Date: 05/28/22 Stop Date: 06/04/22 Status: Ordered disposable andrea pads disposable andrea [...] each, 11 Refills, Maintenance, 09/25/21 11:17:00 EDT, [place], [facility] #19163, 1 sprays Nares, Both 2 times a day,x30 days, 165, cm, 09/25/21 11:04:00 EDT, Height, 96, kg, 07/13/21 10:52:00 EDT, Dry... Start Date: 09/25/21 Stop Date: 09/20/22 Status: Ordered Flovent HFA 220 mcg/inh inhalation aerosol 2 puffs, Inhalation, 2 times a day, # 12 Gm, 11 Refills, Maintenance, 05/19/22 13:39:00 EST, Aerosol, [facility] #78098, Partial fill upon patient request if the [...] J45.909, 10/22/20 9:02:00 EDT, Compound Start Date: 8/11/21 Status: Ordered Nebulizer/Compressor See Instructions, # 1 [...] Date: 05/14/22 Stop Date: 06/13/22 Status: Ordered Prevacid 30 mg oral enteric [...] 05/12/22 11:38:00 EST, Route to Pharmacy Electronically, [facility] #56158, 168, cm, 05/12/2310:30:00 EST, Height, 85, kg, [...] note * Event Display: Inpatient Consult Note, Non- Authored Date: * Event Display: Inpatient Consult Note, Non- Authored Date: Patient Care team information Care Team Personnel Name: Tristin Hunt RN Position: [place] RN Member Role: Primary Care Nurse Name: Lisseth Nassar NP Position: [facility] PCO Associate Professional Member Role: PCP Address: Address: [address] [place] [address]- [place] Name: Edenilson Puckett MD Position: [facility] BURIAL NEEDS SALESPERSON MD Member Role: Lifetime BURIAL NEEDS SALESPERSON Physician Address: Address: [address] [place] [address]- [place] Name: Jovana Park RN Position: [facility] RN Member Role: Primary Care Nurse Name: Chidi Clark DO Position: [facility] Renal MD Member Role: Lifetime Consulting Physician Address: Address: [address] [place] [address] [address] [facility] [place] [address]- [place] Name: Mireya Torres RN Position: [facility] RN Member Role: Primary Care Nurse Name: Kelly Maddox RN Position: [facility] RN Member Role: Primary Care Nurse Care Team Related Persons Name: KAYLAHMARYA SULTANA Address: home [address] [place] [address] Name: MORALES HOWELL Address: home [address] [place] [address]
--- OUTSIDE RECORDS SUMMARY | 2023-09-12 11:34 | XMS_ITS | Continuity of Care Document ---
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 Start Date: 01/26/23 Status: Ordered albuterol CFC free 90 mcg/inh inhalation aerosol 2, puffs, Inhalation, 4 times a day, PRN, Dispense brand as required by insurance, # 1 each, Refills 11, Tot. Refills 11, Maintenance, 01/26/23 14:00:00 EST, Aerosol, Route to Pharmacy Electronically, [id number], [facility]. Start Date: 01/26/23 Status: Ordered albuterol-ipratropium 3 mg-0.5 mg/3 ml inhalation solution 1 vials, Inhalation, 4 times a day, # 180 mL, 11 Refills, Maintenance, 01/27/23 9:25:00 EST, [facility] #[id number], 15, 1 vials Inhalation 4 times a [...] tablet, 6 Refills, Maintenance, 12/07/22 16:46:00 EDT, [facility] #12240, 165, cm, 12/06/22 17:39:00 EDT, Height, 88.2, kg, 05/26/22 7:52:00EDT, Dry Weight Start Date: 12/07/22 Status: Ordered amlodipine-benazepril 5 mg-10 mg oral capsule 1 capsule, By Mouth, Daily, TO. REPLACE BEFORE PRESCRIPTION AMLODIPINE, # 90 capsule, 0 Refills, Maintenance, 04/05/23 10:10:00 EST, [facility] #25504, 90, TAKE 1 CAPSULE BY MOUTH DAILY [...] tablet, 3 Refills, Maintenance, 01/26/23 14:00:00 EST, [facility] #11132, 165, cm, 01/26/23 13:31:00 EST, Height, 88.2, kg, 05/26/22 7:52:00 EDT, Dry Weight Start Date: 01/26/23 Stop Date: 01/21/24 Status: Ordered clonazePAM 1 mg oral tablet 1 tablet = 1 mg, By Mouth, 3 times a day, To use sparingly; to fill on/after 04/03/2023, # 90 tablet, 1 Refills, Maintenance, 03/29/23 12:46:00 EST, Tablet, [facility] #13119, Partial fill upon patient request if the [...] each, 11 Refills, Maintenance, 09/25/21 11:17:00 EDT, [place], [facility] #88780, 1 sprays Nares, Both 2 times a day,x30 days, 165, cm, 09/25/21 11:04:00 EDT, Height, 96, kg, 07/13/21 10:52:00 EDT, Dry... Start Date: 09/25/21 Stop Date: 09/20/22 Status: Ordered fluconazole 150 mg oral tablet 1 tablet = 150 mg, By Mouth, Once, Repeat dose if still having symptoms in 72 hours, # 2 tablet, 1 Refills, Soft Stop, 04/27/23 14:34:00 EST, Tablet, [facility] #91567, Partial fill upon patient request if the prescription is for a schedule... Start Date: 04/27/23 Status: Ordered fluticasone 250 mcg/inh inhalation powder 1 puffs, Inhalation, 2 times a day, dispense brand as required by insurance, # 120 each, 11 Refills, Maintenance, 04/29/23 9:44:00 EST, Powder, [facility] #21518, Partial fill upon patient request if the [...] capsule, 4 Refills, Maintenance, 01/26/23 14:02:00 EST, [facility] #14808, 165, cm, 01/26/23 13:31:00 EST, Height, 88.2, [...] 01/26/23 14:02:00 EST, Route to Pharmacy Electronically, [facility] #[id number], 165, cm, 01/26/23 13:31:00 EST, Height, 88.2, [...] Professional Member Role: PCP Address: Address: [address] [place] [address]- Name: Edenilson Puckett MD Position: [facility] SALON ASSISTANT MD Member Role: Lifetime SALON ASSISTANT Physician Address: Address: [address] [place] [address]- Name: Jovana Park RN Position: [facility] SN RN Member Role: Primary Care Nurse Name: Chidi Clark DO Position: [facility] Renal MD Member Role: Lifetime Consulting Physician Address: Address: [address] [place], [place] [address] [place] [address]- Name: Mireya Torres RN Position: S RN Member Role: Primary Care Nurse Name: Starr Harper RN Position: [facility] SN RN Member Role: Primary Care Nurse Name: Kelly Maddox RN Position: S RN Member Role: Primary Care Nurse Care Team Related Persons Name: KAYLAH MARYA Address: [address] [place] [address] Name: MORALES HOWELL Address: home [address] [place] [address]
--- OUTSIDE RECORDS SUMMARY | 2023-09-12 11:34 | XMS_ITS | Continuity of Care Document ---
Author Organization [facility] Address [address] [place] [address]- Care Team Providers Care Physical Chemist Name Role Phone Cesario VALDEZ, Lisseth Hancock Primary Care Physician [place] [facility] Date(s): 08/09/19 - 08/16/19 [facility] [address] [place] [address]- [facility] Attending Physician: Lyle Zhang MD Referring Physician: Lisseth Nassar NP Allergies, Adverse Reactions, Alerts Substance Reaction Severity Status sulfADIAZINE rash Active morphine rash & swelling Active sertraline 1 QT wave change Active sulfa drugs rash Active Bactrim rash Active NSAIDs 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 Refills 11, Maintenance, 11/24/17 13:49:05 EDT, Aerosol, Route to Pharmacy Electronically, [id number], [facility], [facility] Start Date: 11/24/17 Status: Ordered albuterol-ipratropium 3 mg-0.5 mg/3 ml inhalation solution 1 vials, Inhalation, 4 times a day, # 180 mL, 5 Refills, Maintenance, 07/30/19 11:02:00 EDT, [facility] #01617, 15, INHALE CONTENTS OF 1 VIAL VIA NEBULIZER FOUR TIMES DAILY, 167.64, cm, 04/24/19 16:16:00 EST, Height, 100.4, kg, 08/03/18 10:1... Start Date: 07/30/19 Status: Ordered amLODIPine 10 mg oral tablet 1 tablet, By Mouth, Daily, # 30 tablet, 2 Refills, Maintenance, 06/15/19 9:43:00 EDT, [facility] #93176, 167.64, cm, 04/24/19 16:16:00 EST, Height, 100.4, kg, 08/03/18 10:14:00 EDT, Dry Weight Start Date: 06/15/19 Status: Ordered baclofen 10 mg oral tablet 1, tablet, By Mouth, 3 times a day, # 60 tablet, Refills 2, Tot. Refills 2, Maintenance, 06/14/19 9:10:00 EDT, Route to Pharmacy Electronically, [facility] #42954, 167.64, cm, 04/24/19 16:16:00 EST, Height, 100.4, [...] 5 Refills, Maintenance, 04/16/19 13:06:00 EST, Tablet, [facility] #[id number], 167.64, cm, 03/02/19 10:23:00 EST, Height, 100.4, [...] DAILY, # 44 mL, 0 Refills, Maintenance, [facility] #39081, 29, SPRAY TWICE IN EACH NOSTRIL FOUR [...] each, 5 Refills, Maintenance, 06/05/18 19:53:47 EDT, [place], 1 sprays Nares, Both 2 times a [...] 11 Refills, Maintenance, 03/02/19 10:19:00 EST, Capsule, [facility] #57461, 1 capsule By Mouth Daily, 167.64, cm, [...] 4 HOURS NEEDED FOR NAUSEA OR VOMITING, [facility] #97802 Start Date: 12/05/18 Status: Ordered raised toilet [...] Maintenance, 06/02/17 13:39:59, Route to Pharmacy Electronically, [id number][facility] [address] Start Date: 06/02/17 Status: Ordered Transfer Bench [...]
--- OUTSIDE RECORDS SUMMARY | 2023-09-12 11:34 | XMS_ITS | Continuity of Care Document ---
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 Refills 11, Maintenance, 11/24/17 13:49:05 EDT, Aerosol, Route to Pharmacy Electronically, [id number], [facility] 922[facility], [facility] Start Date: 11/24/17 Status: Ordered albuterol-ipratropium 3 mg-0.5 mg/3 ml inhalation solution 3 mL, Inhalation, 4 times a day, # 60 each, 6 Refills, Maintenance, 02/17/18 14:50:32 EST, Solution, 3 mL Inhalation 4 times a day Start Date: 02/17/18 Status: Ordered amLODIPine 10 mg oral tablet 1 tablet, By Mouth, Daily, # 30 tablet, 2 Refills, Maintenance, 06/15/19 9:43:00 EDT, [facility] #08776, 167.64, cm, 04/24/19 16:16:00 EST, Height, 100.4, kg, 08/03/18 10:14:00 EDT, Dry Weight Start Date: 06/15/19 Status: Ordered baclofen 10 mg oral tablet 1, tablet, By Mouth, 3 times a day, # 60 tablet, Refills 2, Tot. Refills 2, Maintenance, 06/14/19 9:10:00 EDT, Route to Pharmacy Electronically, [facility] #[id number], 167.64, cm, 04/24/19 16:16:00 EST, Height, 100.4, [...] 5 Refills, Maintenance, 04/16/19 13:06:00 EST, Tablet, [facility] #59886, 167.64, cm, 03/02/19 10:23:00 EST, Height, 100.4, [...] DAILY, # 44 mL, 0 Refills, Maintenance, [facility] #97307, 29, SPRAY TWICE IN EACH NOSTRIL FOUR [...] 06/23/19 10:51:00 EDT, 06/13/19 10:51:00 EDT, Capsule, [facility] #17255, 167.64, cm, 04/24/19 16:16:00 EST, Height, 100.4, [...] each, 5 Refills, Maintenance, 06/05/18 19:53:47 EDT, [place], 1 sprays Nares, Both 2 times a [...] 11 Refills, Maintenance, 03/02/19 10:19:00 EST, Capsule, [facility] #24030, 1 capsule By Mouth Daily, 167.64, cm, [...] 4 HOURS NEEDED FOR NAUSEA OR VOMITING, [facility] #23875 Start Date: 12/05/18 Status: Ordered raised toilet [...] Maintenance, 06/02/17 13:39:59, Route to Pharmacy Electronically, [id number], [facility] [address] Start Date: 06/02/17 Status: Ordered Transfer Bench [...]
--- OUTSIDE RECORDS SUMMARY | 2023-09-12 11:35 | XMS_ITS | Continuity of Care Document ---
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 Immunizations Given and Recorded Vaccine Date [...] 5 Refills, Maintenance, 05/07/19 10:46:00 EST, Solution, [facility] #[id number], 167.64, cm, 04/24/19 16:16:00 EST, Height, 100.4, kg, 08/03/18 10:14:00 EDT, Dry Weight Start Date: 05/07/19 Status: Ordered albuterol-ipratropium 3 mg-0.5 mg/3 ml inhalation solution 1 vials, Inhalation, 4 times a day, # 180 mL, 5 Refills, Maintenance, 07/30/19 11:02:00 EDT, [facility] #90161, 15, INHALE CONTENTS OF 1 VIAL VIA [...] 11 Refills, Maintenance, 04/23/21 14:51:00 EST, Capsule, [facility] #[id number], Partial fill upon patient request if the prescription is for a schedule II opi... Start Date: 04/23/21 Status: Ordered aspirin 81 mg oral delayed release tablet 81 mg, 1, tablet, By Mouth, Daily, # 30 tablet, Refills 5, Tot. Refills 5, Maintenance, 11/02/19 11:39:00 EDT, Route to Pharmacy Electronically, [facility] #48962, 167.64, cm, 11/02/19 10:58:00 EDT, Height, 100.4, [...] tablet, 11 Refills, Maintenance, 09/25/21 11:17:00 EDT, [facility] #09678, 165, cm, 09/25/21 11:04:00 EDT, Height, 96, [...] Mouth, Daily at bedtime, Refills 0, Maintenance, 04/29/22 11:35:00 EDT, Partial fill upon patient request if the prescription is for a schedule II opioid drug. Start Date: 07/10/21 Status: Ordered Flonase 50 mcg/inh nasal spray 1 sprays, Nares, Both, 2 times a day, # 1 each, 11 Refills, Maintenance, 09/25/21 11:17:00 EDT, [place], [facility] #21560, 1 sprays Nares, Both 2 times a [...] Acute 03/13/22 14:45:00 EST, 03/20/2213:45:00 EST, Ointment, [facility] #60226, Partial fill upon patient request if the [...] 11 Refills, Maintenance, 03/02/19 10:19:00 EST, Capsule, [facility] #85604, 1 capsule By Mouth Daily, 167.64, cm, [...] 09/25/21 11:17:00 EDT, Route to Pharmacy Electronically, [facility] #92549, 165, cm, 09/25/2210:04:00 EDT, Height, 96, kg, 05/02/22 10:52:00 EDT... Start Date: 09/25/21 Status: Ordered tiZANidine 2 mg oral tablet 2 mg, 1, tablet, By Mouth, Every 8 hours, PRN, # 90 tablet, Refills 3, Tot. Refills 3, Maintenance,as needed for muscle spasm, 06/18/21 10:33:00 EDT, Route to Pharmacy Electronically, [facility] #13754, Partial fill upon patient request, 16... Start [...]
--- OUTSIDE RECORDS SUMMARY | 2023-09-12 11:35 | XMS_ITS | Continuity of Care Document ---
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 Start Date: 10/19/21 Status: Ordered albuterol-ipratropium 3 mg-0.5 mg/3 ml inhalation solution 1 vials, Inhalation, 4 times a day, # 180 mL, 5 Refills, Maintenance, 07/30/19 11:02:00 EDT, [facility] #24028, 15, INHALE CONTENTS OF 1 VIAL VIA [...] tablet, 11 Refills, Maintenance, 12/07/21 8:02:00 EDT, [facility] #75978, 165, cm, 10/27/21 1:44:00 EDT, Height, 90.9, kg, 10/27/21 1:44:00 EDT, Dry Weight Start Date: 12/07/21 Status: Ordered amlodipine-benazepril 5 mg-10 mg oral capsule 1 capsule, By Mouth, Daily, To replace prior prescription (amlodipine)., # 90 capsule, 11 Refills, Maintenance, 03/01/22 16:04:00 EST, Capsule, [facility] #03896, Partial fill upon patient request if the prescription is for a schedule II opi... Start Date: 03/01/22 Stop Date: 02/13/25 Status: Ordered aspirin 81 mg oral delayed release tablet 81 mg, 1, tablet, By Mouth, Daily, # 30 tablet, Refills 5, Tot. Refills 5, Maintenance, 11/02/19 11:39:00 EDT, Route to Pharmacy Electronically, [facility] #57232, 167.64, cm, 11/02/19 10:58:00 EDT, Height, 100.4, kg, 08/03/18 10:14:00 EDT,... Start Date: 11/02/19 Status: Ordered baclofen 10 mg oral tablet 10 mg, 1, tablet, By Mouth, Daily at bedtime, # 30 tablet, Refills 5, Tot. Refills 5, Maintenance, 02/09/22 13:45:00 EST, Route to Pharmacy Electronically, [facility] #[id number], Partial fill upon patient request if the [...] tablet, 11 Refills, Maintenance, 09/25/21 11:17:00 EDT, [facility] #38908, 165, cm, 09/25/21 11:04:00 EDT, Height, 96, [...] each, 11 Refills, Maintenance, 09/25/21 11:17:00 EDT, [place], [facility] #22311, 1 sprays Nares, Both 2 times a day,x30 days, 165, cm, 09/25/21 11:04:00 EDT, Height, 96, kg, 07/13/21 10:52:00 EDT, Dry... Start Date: 09/25/21 Stop Date: 09/20/22 Status: Ordered fluconazole 150 mg oral tablet 1 tablet = 150 mg, By Mouth, Once, Repeat dose if still having symptoms in 72 hours, # 2 tablet, 0 Refills, Soft Stop, 02/09/22 13:43:00 EST, Tablet, [facility] #82380, Partial fill upon patient request if the prescription is for a schedule... Start Date: 02/09/22 Status: Ordered fluconazole 150 mg oral tablet 1 tablet = 150 mg, By Mouth, Once, repeat dose if still having symptoms in 72 hours, # 2 tablet, 2 Refills, Soft Stop, 04/14/22 10:57:00 EST, Tablet, [facility] #56826, Partial fill upon patient request if the [...] 11 Refills, Maintenance, 03/02/19 10:19:00 EST, Capsule, [facility] #[id number], 1 capsule By Mouth Daily, 167.64, cm, [...] 30 tablet, 0 Refills,Maintenance, 10/18/21 16:41:00 EDT, [facility]... Start Date: 10/18/21 Status: Ordered Prevacid 30 [...] 09/25/21 11:17:00 EDT, Route to Pharmacy Electronically, [facility] #29607, 165, cm, 09/25/2210:04:00 EDT, Height, 96, kg, 07/13/21 10:52:00 EDT... Start Date: 09/25/21 Status: Ordered tiZANidine 2 mg oral tablet 2 mg, 1, tablet, By Mouth, Every 8 hours, PRN, # 90 tablet, Refills 3, Tot. Refills 3, Maintenance,as needed for muscle spasm, 06/18/21 10:33:00 EDT, Route to Pharmacy Electronically, [facility] #24999, Partial fill upon patient request, 16... Start [...] Team Personnel Name: Lisseth Nassar NP Position: [facility] PCO Associate Professional Member Role: PCP Address: Address: [address] [place] [id number]- [place] Name: Edenilson Puckett MD Position: [facility] COSMETICIAN APPRENTICE MD Member Role: [employer] COSMETICIAN APPRENTICE Physician Address: Address: [address] [place], [place] [address] [place] [address]- [place] Name: Chidi Clark DO Position: [facility] Renal MD Member Role: Lifetime Consulting Physician Address: Address: [address] [place] [address] [address] [facility] [place] [address]- [place] Name: Starr Harper RN Position: [facility] RN Member Role: Primary Care Nurse Care Team Related Persons Name: KAYLAH MARYA Address: home [address] [place] [id number]
--- OUTSIDE RECORDS SUMMARY | 2023-09-12 11:35 | XMS_ITS | Continuity of Care Document ---
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 Refills 11, Maintenance, 11/24/17 13:49:05 EDT, Aerosol, Route to Pharmacy Electronically, [id number], [facility] [address], Compound Start Date: 11/24/17 Status: Ordered albuterol-ipratropium 3 mg-0.5 mg/3 ml inhalation solution 1 vials, Inhalation, 4 times a day, # 180 mL, 5 Refills, Maintenance, 07/30/19 11:02:00 EDT, [facility] #[id number], 15, INHALE CONTENTS OF 1 VIAL VIA NEBULIZER FOUR TIMES DAILY, 167.64, cm, 04/24/19 16:16:00 EST, Height, 100.4, kg, 08/03/18 10:1... Start Date: 07/30/19 Status: Ordered amLODIPine 10 mg oral tablet 1 tablet, By Mouth, Daily, # 30 tablet, 6 Refills, Maintenance, 10/04/19 12:22:00 EDT, [facility] #67002, 167.64, cm, 04/24/19 16:16:00 EST, Height, 100.4, kg, 08/03/18 10:14:00 EDT, Dry Weight Start Date: 10/04/19 Status: Ordered aspirin 81 mg oral delayed release tablet 81 mg, 1, tablet, By Mouth, Daily, # 30 tablet, Refills 5, Tot. Refills 5, Maintenance, 11/02/19 11:39:00 EDT, Route to Pharmacy Electronically, [facility] #[id number], 167.64, cm, 11/02/19 10:58:00 EDT, Height, 100.4, kg, 08/03/18 10:14:00 EDT,... Start Date: 11/02/19 Status: Ordered baclofen 10 mg oral tablet 1, tablet, By Mouth, 3 times a day, # 60 tablet, Refills 0, Tot. Refills 0, Maintenance, 02/25/20 13:59:00 EST, Route to Pharmacy Electronically, [facility] #[id number], 167.64, cm, 11/12/19 15:34:00 EDT, Height, 100.4, [...] tablet, 11 Refills, Maintenance, 01/11/20 10:43:00 EDT, [facility] #25924, 167.64, cm, 11/12/19 15:34:00 EDT, Height, 100.4, [...] DAILY, # 44 mL, 0 Refills, Maintenance, [facility] #81372, 29, SPRAY TWICE IN EACH NOSTRIL FOUR [...] each, 5 Refills, Maintenance, 06/05/18 19:53:47 EDT, [place], 1 sprays Nares, Both 2 times a [...] 11 Refills, Maintenance, 03/02/19 10:19:00 EST, Capsule, [facility] #93457, 1 capsule By Mouth Daily, 167.64, cm, [...] 4 HOURS NEEDED FOR NAUSEA OR VOMITING, [facility] Start Date: 12/05/18 Status: Ordered raised toilet [...] Maintenance, 06/02/17 13:39:59, Route to Pharmacy Electronically, [id number], [facility] [address] Start Date: 06/02/17 Status: Ordered tiZANidine 2 mg oral tablet 2 mg, 1, tablet, By Mouth, Every 8 hours, PRN, # 90 tablet, Refills 3, Tot. Refills 3, Maintenance,as needed for muscle spasm, 02/08/20 9:24:00 EST, Route to Pharmacy Electronically, [facility] #[id number], Partial fill upon patient request, 167... Start [...]
--- OUTSIDE RECORDS SUMMARY | 2023-09-12 11:35 | XMS_ITS | Continuity of Care Document ---
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 Refills 11, Maintenance, 11/24/17 13:49:05 EDT, Aerosol, Route to Pharmacy Electronically, [id number], [facility] [address], Compound Start Date: 11/24/17 Status: Ordered albuterol-ipratropium 3 mg-0.5 mg/3 ml inhalation solution 1 vials, Inhalation, 4 times a day, # 180 mL, 5 Refills, Maintenance, 07/30/19 11:02:00 EDT, [facility] #79122, 15, INHALE CONTENTS OF 1 VIAL VIA NEBULIZER FOUR TIMES DAILY, 167.64, cm, 04/24/19 16:16:00 EST, Height, 100.4, kg, 08/03/18 10:1... Start Date: 07/30/19 Status: Ordered amLODIPine 10 mg oral tablet 1 tablet, By Mouth, Daily, # 30 tablet, 5 Refills, Maintenance, 05/06/20 12:30:00 EST, [facility] #99316, 167.64, cm, 03/25/20 14:59:00 EST, Height, 100.4, kg, 08/03/18 10:14:00 EDT, Dry Weight Start Date: 05/06/20 Status: Ordered aspirin 81 mg oral delayed release tablet 81 mg, 1, tablet, By Mouth, Daily, # 30 tablet, Refills 5, Tot. Refills 5, Maintenance, 11/02/19 11:39:00 EDT, Route to Pharmacy Electronically, [facility] #[id number], 167.64, cm, 11/02/19 10:58:00 EDT, Height, 100.4, kg, 08/03/18 10:14:00 EDT,... Start Date: 11/02/19 Status: Ordered bacitracin topical 500 u/gm ointment 1 application, Topically, 4 times a day, # 30 Gm, 0 Refills, Maintenance, 09/02/20 15:20:00 EDT, Ointment, [facility] #06519, Partial fill upon patient request if the prescription is for a schedule II opioid drug., 1 application Topically 4... Start Date: 09/02/20 Stop Date: 09/12/20 Status: Ordered baclofen 10 mg oral tablet 1, tablet, By Mouth, 3 times a day, # 60 tablet, Refills 0, Tot. Refills 0, Maintenance, 02/25/20 13:59:00 EST, Route to Pharmacy Electronically, [facility] #76998, 167.64, cm, 11/12/19 15:34:00 EDT, Height, 100.4, [...] tablet, 11 Refills, Maintenance, 01/11/20 10:43:00 EDT, [facility] #86234, 167.64, cm, 11/12/19 15:34:00 EDT, Height, 100.4, [...] DAILY, # 44 mL, 0 Refills, Maintenance, [facility] #34608, 29, SPRAY TWICE IN EACH NOSTRIL FOUR [...] each, 5 Refills, Maintenance, 06/05/18 19:53:47 EDT, [place], 1 sprays Nares, Both 2 times a [...] 11 Refills, Maintenance, 03/02/19 10:19:00 EST, Capsule, [facility] #13820, 1 capsule By Mouth Daily, 167.64, cm, [...] 4 HOURS NEEDED FOR NAUSEA OR VOMITING, [facility] #26380 Start Date: 12/05/18 Status: Ordered raised toilet [...] Maintenance, 06/02/17 13:39:59, Route to Pharmacy Electronically, [id number], [facility] [address] Start Date: 06/02/17 Status: Ordered tiZANidine 2 mg oral tablet 2 mg, 1, tablet, By Mouth, Every 8 hours, PRN, # 90 tablet, Refills 3, Tot. Refills 3, Maintenance,as needed for muscle spasm, 02/08/20 9:24:00 EST, Route to Pharmacy Electronically, [facility] #25603, Partial fill upon patient request, 167... Start [...]
--- OUTSIDE RECORDS SUMMARY | 2023-09-12 11:35 | XMS_ITS | Continuity of Care Document ---
Author Organization [facility] Tory tayler Address [address] [place] [address] [address] [place] [address]- Care Team Providers Care Access Control Specialist Name Role Phone Cesario VALDEZ, Lisseth Hancock Primary Care Physician [phone] Encounter [facility] Date(s): 09/11/20 - 10/11/20 [facility] [address] [place], [place] [address] Attending Physician: Janette Connelly Admitting Physician: AdmJanette pa Referring Physician: AdmtrJanette Allergies, Adverse Reactions, Alerts Substance Reaction Severity Status sulfADIAZINE rash Active morphine rash & swelling Active sertraline 1 QT wave change Active sulfa drugs rash Active Bactrim rash Active NSAIDs 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 Refills 11, Maintenance, 11/24/17 13:49:05 EDT, Aerosol, Route to Pharmacy Electronically, [id number], [facility] [address]24, Compound Start Date: 11/24/17 Status: Ordered albuterol-ipratropium 3 mg-0.5 mg/3 ml inhalation solution 1 vials, Inhalation, 4 times a day, # 180 mL, 5 Refills, Maintenance, 07/30/19 11:02:00 EDT, [facility] #07895, 15, INHALE CONTENTS OF 1 VIAL VIA NEBULIZER FOUR TIMES DAILY, 167.64, cm, 04/24/19 16:16:00 EST, Height, 100.4, kg, 08/03/18 10:1... Start Date: 07/30/19 Status: Ordered amLODIPine 10 mg oral tablet 1 tablet, By Mouth, Daily, # 30 tablet, 5 Refills, Maintenance, 05/06/20 12:30:00 EST, [facility] #82912, 167.64, cm, 03/25/20 14:59:00 EST, Height, 100.4, kg, 08/03/18 10:14:00 EDT, Dry Weight Start Date: 05/06/20 Status: Ordered aspirin 81 mg oral delayed release tablet 81 mg, 1, tablet, By Mouth, Daily, # 30 tablet, Refills 5, Tot. Refills 5, Maintenance, 11/02/19 11:39:00 EDT, Route to Pharmacy Electronically, [facility] #[id number], 167.64, cm, 11/02/19 10:58:00 EDT, Height, 100.4, kg, 08/03/18 10:14:00 EDT,... Start Date: 11/02/19 Status: Ordered bacitracin topical 500 u/gm ointment 1 application, Topically, 4 times a day, # 30 Gm, 0 Refills, Maintenance, 09/02/20 15:20:00 EDT, Ointment, [facility] #62914, Partial fill upon patient request if the prescription is for a schedule II opioid drug., 1 application Topically 4... Start Date: 09/02/20 Stop Date: 09/12/20 Status: Ordered baclofen 10 mg oral tablet 1, tablet, By Mouth, 3 times a day, # 60 tablet, Refills 0, Tot. Refills 0, Maintenance, 02/25/20 13:59:00 EST, Route to Pharmacy Electronically, [facility] #[id number], 167.64, cm, 11/12/19 15:34:00 EDT, Height, 100.4, [...] tablet, 11 Refills, Maintenance, 01/11/20 10:43:00 EDT, [facility] #02451, 167.64, cm, 11/12/19 15:34:00 EDT, Height, 100.4, [...] 44 mL, 0 Refills, Maintenance, [facility] #90305, 29, SPRAY TWICE IN EACH NOSTRIL FOUR [...] each, 5 Refills, Maintenance, 06/05/18 19:53:47 EDT, [place], 1 sprays Nares, Both 2 times a [...] 11 Refills, Maintenance, 03/02/19 10:19:00 EST, Capsule, [facility] #05978, 1 capsule By Mouth Daily, 167.64, cm, [...] 4 HOURS NEEDED FOR NAUSEA OR VOMITING, [facility] #61589 Start Date: 12/05/18 Status: Ordered raised toilet [...] Maintenance, 06/02/17 13:39:59, Route to Pharmacy Electronically, [id number], [facility] [address] Start Date: 06/02/17 Status: Ordered tiZANidine 2 mg oral tablet 2 mg, 1, tablet, By Mouth, Every 8 hours, PRN, # 90 tablet, Refills 3, Tot. Refills 3, Maintenance,as needed for muscle spasm, 02/08/20 9:24:00 EST, Route to Pharmacy Electronically, [facility] #53009, Partial fill upon patient request, 167... Start [...]
--- OUTSIDE RECORDS SUMMARY | 2023-09-12 11:35 | XMS_ITS | Continuity of Care Document ---
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 Start Date: 01/26/23 Status: Ordered albuterol CFC free 90 mcg/inh inhalation aerosol 2, puffs, Inhalation, 4 times a day, PRN, Dispense brand as required by insurance, # 1 each, Refills 11, Tot. Refills 11, Maintenance, 01/26/23 14:00:00 EST, Aerosol, Route to Pharmacy Electronically, [id number], [facility]. Start Date: 01/26/23 Status: Ordered albuterol-ipratropium 3 mg-0.5 mg/3 ml inhalation solution 1 vials, Inhalation, 4 times a day, # 180 mL, 11 Refills, Maintenance, 01/27/23 9:25:00 EST, [facility] #[id number], 15, 1 vials Inhalation 4 times a [...] tablet, 6 Refills, Maintenance, 05/30/23 14:38:00 EDT, [facility] #[id number], 165, cm, 05/30/23 14:22:00 EDT, Height, 88.2, kg, 05/26/22 7:52:00EDT, Dry Weight Start Date: 05/30/23 Stop Date: 02/18/25 Status: Ordered amlodipine-benazepril 5 mg-10 mg oral capsule 1 capsule, By Mouth, Daily, TO. REPLACE BEFORE PRESCRIPTION AMLODIPINE, # 90 capsule, 3 Refills, Maintenance, 05/30/23 14:38:00 EDT, [facility] #93105, 90, 1 capsule By Mouth Daily,Instr:TO. REPLACE [...] tablet, 3 Refills, Maintenance, 11/15/23 14:00:00 EST, [facility] #47895, 165, cm, 01/26/23 13:31:00 EST, Height, 88.2, kg, 05/26/22 7:52:00 EDT, Dry Weight Start Date: 01/26/23 Stop Date: 01/21/24 Status: Ordered clonazePAM 1 mg oral tablet 1 tablet = 1 mg, By Mouth, 3 times a day, To use sparingly; to fill on/after 05/30/2023, # 90 tablet, 1 Refills, Maintenance, 05/30/23 14:36:00 EDT, Tablet, [facility] #24030, Partial fill upon patient request if the [...] each, 11 Refills, Maintenance, 09/25/21 11:17:00 EDT, [place], [facility] #[id number], 1 sprays Nares, Both 2 times a day,x30 days, 165, cm, 09/25/21 11:04:00 EDT, Height, 96, kg, 07/13/21 10:52:00 EDT, Dry... Start Date: 09/25/21 Stop Date: 09/20/22 Status: Ordered fluconazole 150 mg oral tablet 1 tablet = 150 mg, By Mouth, Once, Repeat dose if still having symptoms in 72 hours, # 2 tablet, 1 Refills, Soft Stop, 04/27/23 14:34:00 EST, [facility] #[id number], Partial fill upon patient request if the prescription is for a schedule... Start Date: 04/27/23 Status: Ordered fluticasone 250 mcg/inh inhalation powder 1 puffs, Inhalation, 2 times a day, dispense brand as required by insurance, # 120 each, 11 Refills, Maintenance, 04/29/23 9:44:00 EST, Powder, [facility] #04299, Partial fill upon patient request if the [...] Date: 05/20/23 Stop Date: 06/19/23 Status: Ordered pantoprazole 40 mg oral delayed [...] capsule, 4 Refills, Maintenance, 01/26/23 14:02:00 EST, [facility] #55895, 165, cm, 01/26/23 13:31:00 EST, Height, 88.2, [...] 01/26/23 14:02:00 EST, Route to Pharmacy Electronically, [facility] #[id number], 165, cm, 01/26/23 13:31:00 EST, Height, 88.2, [...] Professional Member Role: PCP Address: Address: [address] [place] [phone]- Name: Edenilson Puckett MD Position: [facility] RUBBER VULCANIZING MACHINE OPERATOR MD Member Role: Lifetime RUBBER VULCANIZING MACHINE OPERATOR Physician Address: Address: [address] [place] [address]- [place] Name: Jovana Park RN Position: [facility] SN RN Member Role: Primary Care Nurse Name: Chidi Clark DO Position: [facility] Renal MD Member Role: Lifetime Consulting Physician Address: Address: [address] [place], [place] [address] [place] [address]- [place] Name: Mireya Torres RN Position: S RN Member Role: Primary Care Nurse Name: Starr Harper RN Position: [facility] SN RN Member Role: Primary Care Nurse Name: Kelly Maddox RN Position: [facility] RN Member Role: Primary Care Nurse Care Team Related Persons Name: MARYA ADRIAN Address: home [address] [place] [address] Name: MORALES HOWELL Address: home [address] [place] [address]
--- OUTSIDE RECORDS SUMMARY | 2023-09-12 11:35 | XMS_ITS | Continuity of Care Document ---
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 Refills 11, Maintenance, 11/24/17 13:49:05 EDT, Aerosol, Route to Pharmacy Electronically, [id number], [facility] 20404, Compound Start Date: 11/24/17 Status: Ordered albuterol-ipratropium 3 mg-0.5 mg/3 ml inhalation solution 1 vials, Inhalation, 4 times a day, # 180 mL, 5 Refills, Maintenance, 07/30/19 11:02:00 EDT, [facility] #44756, 15, INHALE CONTENTS OF 1 VIAL VIA NEBULIZER FOUR TIMES DAILY, 167.64, cm, 04/24/19 16:16:00 EST, Height, 100.4, kg, 08/03/18 10:1... Start Date: 07/30/19 Status: Ordered amLODIPine 10 mg oral tablet 1 tablet, By Mouth, Daily, # 30 tablet, 5 Refills, Maintenance, 05/06/20 12:30:00 EST, [facility] #23186, 167.64, cm, 03/25/20 14:59:00 EST, Height, 100.4, kg, 08/03/18 10:14:00 EDT, Dry Weight Start Date: 05/06/20 Status: Ordered aspirin 81 mg oral delayed release tablet 81 mg, 1, tablet, By Mouth, Daily, # 30 tablet, Refills 5, Tot. Refills 5, Maintenance, 11/02/19 11:39:00 EDT, Route to Pharmacy Electronically, [facility] #34309, 167.64, cm, 11/02/19 10:58:00 EDT, Height, 100.4, kg, 08/03/18 10:14:00 EDT,... Start Date: 11/02/19 Status: Ordered bacitracin topical 500 u/gm ointment 1 application, Topically, 4 times a day, # 30 Gm, 0 Refills, Maintenance, 09/02/20 15:20:00 EDT, Ointment, [facility] #80804, Partial fill upon patient request if the prescription is for a schedule II opioid drug., 1 application Topically 4... Start Date: 09/02/20 Stop Date: 09/12/20 Status: Ordered baclofen 10 mg oral tablet 1, tablet, By Mouth, 3 times a day, # 60 tablet, Refills 0, Tot. Refills 0, Maintenance, 02/25/20 13:59:00 EST, Route to Pharmacy Electronically, [facility] #52882, 167.64, cm, 11/12/19 15:34:00 EDT, Height, 100.4, [...] tablet, 11 Refills, Maintenance, 01/11/20 10:43:00 EDT, [facility] #65752, 167.64, cm, 11/12/19 15:34:00 EDT, Height, 100.4, [...] DAILY, # 44 mL, 0 Refills, Maintenance, [facility] #89791, 29, SPRAY TWICE IN EACH NOSTRIL FOUR [...] each, 5 Refills, Maintenance, 06/05/18 19:53:47 EDT, [place], 1 sprays Nares, Both 2 times a [...] 11 Refills, Maintenance, 03/02/19 10:19:00 EST, Capsule, [facility] #48480, 1 capsule By Mouth Daily, 167.64, cm, [...] 4 HOURS NEEDED FOR NAUSEA OR VOMITING, [facility] #16223 Start Date: 12/05/18 Status: Ordered raised toilet [...] Maintenance, 06/02/17 13:39:59, Route to Pharmacy Electronically, [id number], [facility] [address] Start Date: 06/02/17 Status: Ordered tiZANidine 2 mg oral tablet 2 mg, 1, tablet, By Mouth, Every 8 hours, PRN, # 90 tablet, Refills 3, Tot. Refills 3, Maintenance,as needed for muscle spasm, 02/08/20 9:24:00 EST, Route to Pharmacy Electronically, [facility] #[id number], Partial fill upon patient request, 167... Start [...]
--- OUTSIDE RECORDS SUMMARY | 2023-09-12 11:35 | XMS_ITS | Continuity of Care Document ---
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 Refills 11, Maintenance, 11/24/17 13:49:05 EDT, Aerosol, Route to Pharmacy Electronically, [id number], [facility] [address]69, [place] Start Date: 11/24/17 Status: Ordered albuterol-ipratropium 3 mg-0.5 mg/3 ml inhalation solution 1 vials, Inhalation, 4 times a day, # 180 mL, 5 Refills, Maintenance, 07/30/19 11:02:00 EDT, [facility] #[id number], 15, INHALE CONTENTS OF 1 VIAL VIA NEBULIZER FOUR TIMES DAILY, 167.64, cm, 04/24/19 16:16:00 EST, Height, 100.4, kg, 08/03/18 10:1... Start Date: 07/30/19 Status: Ordered amLODIPine 10 mg oral tablet 1 tablet, By Mouth, Daily, # 30 tablet, 2 Refills, Maintenance, 06/15/19 9:43:00 EDT, [facility] #65444, 167.64, cm, 04/24/19 16:16:00 EST, Height, 100.4, kg, 08/03/18 10:14:00 EDT, Dry Weight Start Date: 06/15/19 Status: Ordered baclofen 10 mg oral tablet 1, tablet, By Mouth, 3 times a day, # 60 tablet, Refills 2, Tot. Refills 2, Maintenance, 06/14/19 9:10:00 EDT, Route to Pharmacy Electronically, [facility] #16175, 167.64, cm, 04/24/19 16:16:00 EST, Height, 100.4, [...] 5 Refills, Maintenance, 04/16/19 13:06:00 EST, Tablet, [facility] #14111, 167.64, cm, 03/02/19 10:23:00 EST, Height, 100.4, [...] Maintenance, [facility] #33620, 29, SPRAY TWICE IN EACH NOSTRIL FOUR [...] each, 5 Refills, Maintenance, 06/05/18 19:53:47 EDT, [place], 1 sprays Nares, Both 2 times a [...] 11 Refills, Maintenance, 03/02/19 10:19:00 EST, Capsule, [facility] #63647, 1 capsule By Mouth Daily, 167.64, cm, [...] 4 HOURS NEEDED FOR NAUSEA OR VOMITING, [facility] #[id number] Start Date: 12/05/18 Status: Ordered raised toilet [...] Maintenance, 06/02/17 13:39:59, Route to Pharmacy Electronically, [id number], [facility] [address] Start Date: 06/02/17 Status: Ordered Transfer Bench [...]
--- OUTSIDE RECORDS SUMMARY | 2023-09-12 11:35 | XMS_ITS | Continuity of Care Document ---
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 Refills 11, Maintenance, 11/24/17 13:49:05 EDT, Aerosol, Route to Pharmacy Electronically, [id number], [facility] 17076, Compound Start Date: 11/24/17 Status: Ordered albuterol-ipratropium 3 mg-0.5 mg/3 ml inhalation solution 1 vials, Inhalation, 4 times a day, # 180 mL, 5 Refills, Maintenance, 07/30/19 11:02:00 EDT, [facility] #45465, 15, INHALE CONTENTS OF 1 VIAL VIA NEBULIZER FOUR TIMES DAILY, 167.64, cm, 04/24/19 16:16:00 EST, Height, 100.4, kg, 08/03/18 10:1... Start Date: 07/30/19 Status: Ordered amLODIPine 10 mg oral tablet 1 tablet, By Mouth, Daily, # 30 tablet, 5 Refills, Maintenance, 05/06/20 12:30:00 EST, [facility] #48333, 167.64, cm, 03/25/20 14:59:00 EST, Height, 100.4, kg, 08/03/18 10:14:00 EDT, Dry Weight Start Date: 05/06/20 Status: Ordered aspirin 81 mg oral delayed release tablet 81 mg, 1, tablet, By Mouth, Daily, # 30 tablet, Refills 5, Tot. Refills 5, Maintenance, 11/02/19 11:39:00 EDT, Route to Pharmacy Electronically, [facility] #48189, 167.64, cm, 11/02/19 10:58:00 EDT, Height, 100.4, kg, 08/03/18 10:14:00 EDT,... Start Date: 11/02/19 Status: Ordered baclofen 10 mg oral tablet 1, tablet, By Mouth, 3 times a day, # 60 tablet, Refills 0, Tot. Refills 0, Maintenance, 02/25/20 13:59:00 EST, Route to Pharmacy Electronically, [facility] #09964, 167.64, cm, 11/12/19 15:34:00 EDT, Height, 100.4, [...] tablet, 11 Refills, Maintenance, 01/11/20 10:43:00 EDT, [facility] #88360, 167.64, cm, 11/12/19 15:34:00 EDT, Height, 100.4, [...] DAILY, # 44 mL, 0 Refills, Maintenance, [facility] #37840, 29, SPRAY TWICE IN EACH NOSTRIL FOUR [...] each, 5 Refills, Maintenance, 06/05/18 19:53:47 EDT, [place], 1 sprays Nares, Both 2 times a [...] 11 Refills, Maintenance, 03/02/19 10:19:00 EST, Capsule, [facility] #68701, 1 capsule By Mouth Daily, 167.64, cm, [...] 4 HOURS NEEDED FOR NAUSEA OR VOMITING, [facility] #28491 Start Date: 12/05/18 Status: Ordered raised toilet [...] Maintenance, 06/02/17 13:39:59, Route to Pharmacy Electronically, [id number], [facility] [address] Start Date: 06/02/17 Status: Ordered tiZANidine 2 mg oral tablet 2 mg, 1, tablet, By Mouth, Every 8 hours, PRN, # 90 tablet, Refills 3, Tot. Refills 3, Maintenance,as needed for muscle spasm, 02/08/20 9:24:00 EST, Route to Pharmacy Electronically, [facility] #95771, Partial fill upon patient request, 167... Start [...]
--- OUTSIDE RECORDS SUMMARY | 2023-09-12 11:35 | XMS_ITS | Continuity of Care Document ---
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 Start Date: 05/12/22 Status: Ordered albuterol CFC free 90 mcg/inh inhalation aerosol 2, puffs, Inhalation, 4 times a day, PRN, Dispense brand as required by insurance, # 18 Gm, [id number], Tot. Refills 11, Maintenance, 05/12/22 11:38:00 EST, Aerosol, Route to Pharmacy Electronically, [id number], [facility]... Start Date: 05/12/22 Status: Ordered albuterol-ipratropium 3 mg-0.5 mg/3 ml inhalation solution 1 vials, Inhalation, 4 times a day, # 180 mL, 11 Refills, Maintenance, 05/12/22 11:38:00 EST, [facility] #21257, 15, 1 vials Inhalation 4 times a [...] 11 Refills, Maintenance, 03/01/22 16:04:00 EST, Capsule, [facility] #39575, Partial fill upon patient request if the prescription is for a schedule II opi... Start Date: 03/01/22 Stop Date: 02/13/25 Status: Ordered apixaban 2.5 mg oral tablet 1 tablet = 2.5 mg, By Mouth, 2 times a day, # 60 tablet, 0 Refills, Maintenance, 05/28/22 8:20:00 EDT, Tablet, [facility] 3, Partial fill upon patient request [...] tablet, 11 Refills, Maintenance, 09/25/21 11:17:00 EDT, [facility] #00362, 165, cm, 09/25/21 11:04:00 EDT, Height, 96, [...] 11 Refills, Maintenance, 09/25/21 11:17:00 EDT, [place], [facility] #25291, 1 sprays Nares, Both 2 times a day,x30 days, 165, cm, 09/25/21 11:04:00 EDT, Height, 96, kg, 07/13/21 10:52:00 EDT, Dry... Start Date: 09/25/21 Stop Date: 09/20/22 Status: Ordered Flovent HFA 220 mcg/inh inhalation aerosol 2 puffs, Inhalation, 2 times a day, # 12 Gm, 11 Refills, Maintenance, 05/19/22 13:39:00 EST, Aerosol, [facility] #73615, Partial fill upon patient request if the [...] 05/12/22 11:38:00 EST, Route to Pharmacy Electronically, [facility] #19161, 168, cm, 05/12/2310:30:00 EST, Height, 85, kg, [...] Personnel Name: Tristin Hunt RN Position: [facility] RN Member Role: Primary Care Nurse Name: Lisseth Nassar NP Position: [facility] PCO Associate Professional Member Role: PCP Address: Address: [address] [place] [address]- Name: Edenilson Puckett MD Position: [facility] CONCRETING SUPERVISOR MD Member Role: Lifetime CONCRETING SUPERVISOR Physician Address: Address: [address] [place] [address]- Name: Jovana Park RN Position: [facility] RN Member Role: Primary Care Nurse Name: Chidi Clark DO Position: [facility] Renal MD Member Role: Lifetime Consulting Physician Address: Address: [address] [place] [address] [address] [facility] [place], [place] [address] Name: Mireya Torres RN Position: S RN Member Role: Primary Care Nurse Name: Kelly Maddox RN Position: S RN Member Role: Primary Care Nurse Care Team Related Persons Name: MARYA ADRIAN Address: home [address] [place] [address] Name: MORALES HOWELL Address: home [address] [place] [address]
--- OUTSIDE RECORDS SUMMARY | 2023-09-12 11:36 | XMS_ITS | Continuity of Care Document ---
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 Refills 11, Maintenance, 11/24/17 13:49:05 EDT, Aerosol, Route to Pharmacy Electronically, [id number], [facility] [address]234, [facility] Start Date: 11/24/17 Status: Ordered albuterol-ipratropium 3 mg-0.5 mg/3 ml inhalation solution 1 vials, Inhalation, 4 times a day, # 180 mL, 5 Refills, Maintenance, 07/30/19 11:02:00 EDT, [facility] #94528, 15, INHALE CONTENTS OF 1 VIAL VIA NEBULIZER FOUR TIMES DAILY, 167.64, cm, 04/24/19 16:16:00 EST, Height, 100.4, kg, 08/03/18 10:1... Start Date: 07/30/19 Status: Ordered amLODIPine 10 mg oral tablet 1 tablet, By Mouth, Daily, # 30 tablet, 6 Refills, Maintenance, 10/04/19 12:22:00 EDT, [facility] #25842, 167.64, cm, 04/24/19 16:16:00 EST, Height, 100.4, kg, 08/03/18 10:14:00 EDT, Dry Weight Start Date: 10/04/19 Status: Ordered aspirin 81 mg oral delayed release tablet 81 mg, 1, tablet, By Mouth, Daily, # 30 tablet, Refills 5, Tot. Refills 5, Maintenance, 11/02/19 11:39:00 EDT, Route to Pharmacy Electronically, [facility] #91203, 167.64, cm, 11/02/19 10:58:00 EDT, Height, 100.4, kg, 08/03/18 10:14:00 EDT,... Start Date: 11/02/19 Status: Ordered baclofen 10 mg oral tablet 1, tablet, By Mouth, 3 times a day, # 60 tablet, Refills 2, Tot. Refills 2, Maintenance, 06/14/19 9:10:00 EDT, Route to Pharmacy Electronically, [facility] #22115, 167.64, cm, 04/24/19 16:16:00 EST, Height, 100.4, [...] 5 Refills, Maintenance, 04/16/19 13:06:00 EST, Tablet, [facility] #42559, 167.64, cm, 03/02/19 10:23:00 EST, Height, 100.4, [...] DAILY, # 44 mL, 0 Refills, Maintenance, [facility] #73368, 29, SPRAY TWICE IN EACH NOSTRIL FOUR [...] each, 5 Refills, Maintenance, 06/05/18 19:53:47 EDT, [facility], 1 sprays Nares, Both 2 times a [...] 11 Refills, Maintenance, 03/02/19 10:19:00 EST, Capsule, [facility] #84193, 1 capsule By Mouth Daily, 167.64, cm, [...] 4 HOURS NEEDED FOR NAUSEA OR VOMITING, [facility] #73057 Start Date: 12/05/18 Status: Ordered raised toilet [...] Maintenance, 06/02/17 13:39:59, Route to Pharmacy Electronically, [id number], [facility] [address] Start Date: 06/02/17 Status: Ordered Transfer Bench [...]
--- OUTSIDE RECORDS SUMMARY | 2023-09-12 11:36 | XMS_ITS | Continuity of Care Document ---
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 Start Date: 05/12/22 Status: Ordered albuterol CFC free 90 mcg/inh inhalation aerosol 2, puffs, Inhalation, 4 times a day, PRN, Dispense brand as required by insurance, # 18 Gm, [id number], Tot. Refills 11, Maintenance, 05/12/22 11:38:00 EST, Aerosol, Route to Pharmacy Electronically, [id number], [facility]... Start Date: 05/12/22 Status: Ordered albuterol-ipratropium 3 mg-0.5 mg/3 ml inhalation solution 1 vials, Inhalation, 4 times a day, # 180 mL, 11 Refills, Maintenance, 05/12/22 11:38:00 EST, [facility] #[id number], 15, 1 vials Inhalation 4 times a [...] 11 Refills, Maintenance, 03/01/22 16:04:00 EST, Capsule, [facility] #[id number], Partial fill upon patient request if the prescription is for a schedule II opi... Start Date: 03/01/22 Stop Date: 02/13/25 Status: Ordered apixaban 2.5 mg oral tablet 1 tablet = 2.5 mg, By Mouth, 2 times a day, # 60 tablet, 0 Refills, Maintenance, 05/28/22 8:20:00 EDT, Tablet, [facility], Partial fill upon patient request [...] tablet, 11 Refills, Maintenance, 09/25/21 11:17:00 EDT, [facility] #[id number], 165, cm, 09/25/21 11:04:00 EDT, Height, 96, [...] each, 11 Refills, Maintenance, 09/25/21 11:17:00 EDT, [place], [facility] #[id number], 1 sprays Nares, Both 2 times a day,x30 days, 165, cm, 09/25/21 11:04:00 EDT, Height, 96, kg, 07/13/21 10:52:00 EDT, Dry... Start Date: 09/25/21 Stop Date: 09/20/22 Status: Ordered Flovent HFA 220 mcg/inh inhalation aerosol 2 puffs, Inhalation, 2 times a day, # 12 Gm, 11 Refills, Maintenance, 05/19/22 13:39:00 EST, Aerosol, [facility] #65261, Partial fill upon patient request if the [...] 03/13/23 15:24:00 EST, 09/01/22 15:23:00 EDT, Ointment, [facility] #[id number], Partial fill upon patient request if the [...] 05/12/22 11:38:00 EST, Route to Pharmacy Electronically, [facility] #[id number], 168, cm, 05/12/2310:30:00 EST, Height, 85, kg, [...] Team Personnel Name: Tristin Hunt RN Position: [facility] RN Member Role: Primary Care Nurse Name: Lisseth Nassar NP Position: [facility] PCO Associate Professional Member Role: PCP Address: Address: [address] [place] [address]- Name: Edenilson Puckett MD Position: [facility] MAJOR GIFTS MANAGER MD Member Role: Lifetime MAJOR GIFTS MANAGER Physician Address: Address: [address] [place] [address]- Name: Jovana Park RN Position: [facility] RN Member Role: Primary Care Nurse Name: Chidi Clark DO Position: [facility] Renal MD Member Role: Lifetime Consulting Physician Address: Address: [address] [place] [address] [address] [facility] [place] [address]- Name: Mireya Torres RN Position: [facility] RN Member Role: Primary Care Nurse Name: Starr Harper RN Position: [facility] SN RN Member Role: Primary Care Nurse Name: Kelly Maddox RN Position: [facility] RN Member Role: Primary Care Nurse Care Team Related Persons Name: KAYLAH MARYA Address: home [address] [place] [address] Name: MORALES HOWELL Address: home [address] [place] [id number]
--- OUTSIDE RECORDS SUMMARY | 2023-09-12 11:36 | XMS_ITS | Continuity of Care Document ---
Author Organization [facility] Address [address] [place] [address]- Care Team Providers Care Fur Cutting Machine Operator Name Role Phone Cesario VALDEZ, Lisseth Hancock Primary Care Physician [phone] Encounter [facility] Date(s): 09/18/20 - 10/24/20 [facility] [address] [place] [id number] Attending Physician: Benjamín Duarte MD Admitting Physician: Benjamín Duarte MD Referring Physician: Lisseth Nassar NP Allergies, Adverse Reactions, Alerts Substance Reaction Severity Status sulfADIAZINE rash Active morphine rash & swelling Active sertraline 1 QT wave change Active sulfa drugs rash Active Bactrim rash Active NSAIDs 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 Refills 11, Maintenance, 11/24/17 13:49:05 EDT, Aerosol, Route to Pharmacy Electronically, [id number], [facility] [id number], Compound Start Date: 11/24/17 Status: Ordered albuterol-ipratropium 3 mg-0.5 mg/3 ml inhalation solution 1 vials, Inhalation, 4 times a day, # 180 mL, 5 Refills, Maintenance, 07/30/19 11:02:00 EDT, [facility] #[id number], 15, INHALE CONTENTS OF 1 VIAL VIA NEBULIZER FOUR TIMES DAILY, 167.64, cm, 04/24/19 16:16:00 EST, Height, 100.4, kg, 08/03/18 10:1... Start Date: 07/30/19 Status: Ordered amLODIPine 10 mg oral tablet 1 tablet, By Mouth, Daily, # 30 tablet, 5 Refills, Maintenance, 05/06/20 12:30:00 EST, [facility] #[id number], 167.64, cm, 03/25/20 14:59:00 EST, Height, 100.4, kg, 08/03/18 10:14:00 EDT, Dry Weight Start Date: 05/06/20 Status: Ordered aspirin 81 mg oral delayed release tablet 81 mg, 1, tablet, By Mouth, Daily, # 30 tablet, Refills 5, Tot. Refills 5, Maintenance, 11/02/19 11:39:00 EDT, Route to Pharmacy Electronically, [facility] #[id number], 167.64, cm, 11/02/19 10:58:00 EDT, Height, 100.4, kg, 08/03/18 10:14:00 EDT,... Start Date: 11/02/19 Status: Ordered bacitracin topical 500 u/gm ointment 1 application, Topically, 4 times a day, # 30 Gm, 0 Refills, Maintenance, 09/02/20 15:20:00 EDT, Ointment, [facility] #48108, Partial fill upon patient request if the prescription is for a schedule II opioid drug., 1 application Topically 4... Start Date: 09/02/20 Stop Date: 09/12/20 Status: Ordered baclofen 10 mg oral tablet 1, tablet, By Mouth, 3 times a day, # 60 tablet, Refills 0, Tot. Refills 0, Maintenance, 02/25/20 13:59:00 EST, Route to Pharmacy Electronically, [facility] #[id number], 167.64, cm, 11/12/19 15:34:00 EDT, Height, 100.4, [...] tablet, 11 Refills, Maintenance, 01/11/20 10:43:00 EDT, [facility] #13551, 167.64, cm, 11/12/19 15:34:00 EDT, Height, 100.4, [...] DAILY, # 44 mL, 0 Refills, Maintenance, [facility], 29, SPRAY TWICE IN EACH NOSTRIL FOUR [...] each, 5 Refills, Maintenance, 06/05/18 19:53:47 EDT, [place], 1 sprays Nares, Both 2 times a [...] 11 Refills, Maintenance, 03/02/19 10:19:00 EST, Capsule, [facility] #63276, 1 capsule By Mouth Daily, 167.64, cm, [...] 4 HOURS NEEDED FOR NAUSEA OR VOMITING, [facility] #[id number] Start Date: 12/05/18 Status: Ordered raised toilet [...] Maintenance, 06/02/17 13:39:59, Route to Pharmacy Electronically, [id number], [facility] [address] Start Date: 06/02/17 Status: Ordered tiZANidine 2 mg oral tablet 2 mg, 1, tablet, By Mouth, Every 8 hours, PRN, # 90 tablet, Refills 3, Tot. Refills 3, Maintenance,as needed for muscle spasm, 02/08/20 9:24:00 EST, Route to Pharmacy Electronically, [facility] #89759, Partial fill upon patient request, 167... Start [...]
--- OUTSIDE RECORDS SUMMARY | 2023-09-12 11:36 | XMS_ITS | Continuity of Care Document ---
Author Organization [facility] ter Address [address] [place] [address]- Care Team Providers Care Pass Worker Name Role Phone Cesario VALDEZ, Lisseth Hancock Primary Care Physician [phone] Encounter [facility] Date(s): 07/13/21 - 07/13/[address] [address] Discharge Disposition: A-D/C Home Attending Physician: Edenilson Puckett MD Admitting Physician: Edenilson Puckett MD Referring Physician: Edenilson Puckett MD Allergies, Adverse Reactions, Alerts Substance Reaction Severity Status sulfADIAZINE rash Active sertraline 1 QT wave change Active fentanyl topical passed out Active sulfa drugs rash Active NSAIDs 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 Active Bactrim rash Active 1 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 Immunizations Given and Recorded Vaccine Date [...] Maintenance, 05/07/19 10:46:00 EST, Solution, [facility] #04021, 167.64, cm, 04/24/19 16:16:00 EST, Height, 100.4, kg, 08/03/18 10:14:00 EDT, Dry Weight Start Date: 05/07/19 Status: Ordered albuterol-ipratropium 3 mg-0.5 mg/3 ml inhalation solution 1 vials, Inhalation, 4 times a day, # 180 mL, 5 Refills, Maintenance, 07/30/19 11:02:00 EDT, [facility] #04995, 15, INHALE CONTENTS OF 1 VIAL VIA [...] 11 Refills, Maintenance, 04/23/21 14:51:00 EST, Capsule, [facility] #10307, Partial fill upon patient request if the prescription is for a schedule II opi... Start Date: 04/23/21 Status: Ordered aspirin 81 mg oral delayed release tablet 81 mg, 1, tablet, By Mouth, Daily, # 30 tablet, Refills 5, Tot. Refills 5, Maintenance, 11/02/19 11:39:00 EDT, Route to Pharmacy Electronically, [facility] #[id number], 167.64, cm, 11/02/19 10:58:00 EDT, Height, 100.4, [...] tablet, 11 Refills, Maintenance, 01/11/20 10:43:00 EDT, [facility] #18002, 167.64, cm, 11/12/19 15:34:00 EDT, Height, 100.4, [...] Soft Stop, 10/25/17 17:42:51 EDT Start Date: 8/14/18 Status: Ordered famotidine 20 mg oral tablet [...] each, 5 Refills, Maintenance, 06/05/18 19:53:47 EDT, [place], 1 sprays Nares, Both 2 times a [...] Refills, Acute 03/13/22 14:45:00 EST, 03/20/2213:45:00 EST, [facility]22035, Partial fill upon patient request if the [...] capsule, 11 Refills, Maintenance, 03/02/19 10:19:00 EST, [facility]57381, 1 capsule By Mouth Daily, 167.64, cm, [...] opioid drug. Start Date: 05/14/21 Status: Ordered OxyCODONE IR Tablet 10 mg, Tablet, By Mouth, Every 4 hours, in PACU ONLY, if patient can tolerate PO, PRN for Pain , Moderate, Routine, 07/13/21 13:23:00 EDT Start Date: 07/13/21 Stop Date: 07/13/21 Status: Discontinued Prevacid 30 mg oral enteric coated capsule [...] Maintenance, 06/02/17 13:39:59, Route to Pharmacy Electronically, [id number], [facility] [address] Start Date: 06/02/17 Status: Ordered tiZANidine 2 mg oral tablet 2 mg, 1, tablet, By Mouth, Every 8 hours, PRN, # 90 tablet, Refills 3, Tot. Refills 3, Maintenance,as needed for muscle spasm, 06/18/21 10:33:00 EDT, Route to Pharmacy Electronically, [facility][id number], Partial fill upon patient request, 16... Start [...] Range]: 1 2 3 Height 165 cm (07/13/21 10:52 AM) 165 cm (07/10/21 12:24 PM) Weight 96 kg (07/13/21 10:52 AM) 93.6 kg (07/10/21 12:24 PM) Oxygen Saturation [94-100 %] 100 % (07/13/21 2:00 PM) 100 % (07/13/21 1:30 PM) 100 % (07/13/21 1:15 PM) Pulse Rate [55-90 bpm] 89 bpm (07/13/21 10:52 AM) Body Mass Index [18.5-24.99] 35.26 *>HHI* (07/13/21 10:52 AM) 34.38 *>HHI* (07/10/21 12:24 PM) Blood Pressure [90-138/55-84 mm Hg] 158/89mm Hg *H* (07/13/21 2:00 PM) 160/89mm Hg *H* (07/13/21 1:45 PM) 139/86mm Hg *H* (07/13/21 1:30 PM) Respiratory Rate [16-30 br/min] 18 br/min (07/13/21 2:40 PM) 11 br/min *L* (07/13/21 2:00 PM) 15 br/min *L* (07/13/21 1:51 PM) Temperature [96.8-100.4 DegF] 98.2 DegF (07/13/21 2:00 PM) 98.5 DegF (07/13/21 1:00 PM) 98.3 DegF (07/13/21 10:52 AM) Liters per Minute 6 L/min (07/13/21 1:30 PM) 6 L/min (07/13/21 1:15 PM) 6 L/min (07/13/21 1:00 PM) Mode of Delivery (Oxygen) Room air (07/13/21 2:00 PM) Room air (07/13/21 1:45 PM) Simple face mask (07/13/21 1:30 PM) Blood pressure sites Arm, left (07/13/21 10:52 AM) Temperature Route Temporal (07/13/21 2:00 PM) Temporal (07/13/21 1:00 PM) Temporal (07/13/21 10:52 AM) Dry Weight 96 kg (07/13/21 10:52 AM) 93.6 kg (07/10/21 12:24 PM) Weight Obtained Via Standing scale (07/13/21 10:52 AM) Patient/family stated (07/10/21 12:24 PM) Dry Weight Obtained Via Standing scale (07/13/21 10:52 AM) Patient/family stated (07/10/21 12:24 PM) Social History Social History Type Response Tobacco Use: MARIJUANA. Sex Female
--- OUTSIDE RECORDS SUMMARY | 2023-09-12 11:36 | XMS_ITS | Continuity of Care Document ---
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 Start Date: 01/26/23 Status: Ordered albuterol CFC free 90 mcg/inh inhalation aerosol 2, puffs, Inhalation, 4 times a day, PRN, Dispense brand as required by insurance, # 1 each, Refills 11, Tot. Refills 11, Maintenance, 01/26/23 14:00:00 EST, Aerosol, Route to Pharmacy Electronically, [id number], [facility]. Start Date: 01/26/23 Status: Ordered albuterol-ipratropium 3 mg-0.5 mg/3 ml inhalation solution 1 vials, Inhalation, 4 times a day, # 180 mL, 11 Refills, Maintenance, 01/27/23 9:25:00 EST, [facility] #[id number], 15, 1 vials Inhalation 4 times a [...] tablet, 6 Refills, Maintenance, 12/07/22 16:46:00 EDT, [facility] #[id number], 165, cm, 12/06/22 17:39:00 EDT, Height, 88.2, kg, 05/26/22 7:52:00EDT, Dry Weight Start Date: 12/07/22 Status: Ordered amlodipine-benazepril 5 mg-10 mg oral capsule 1 capsule, By Mouth, Daily, To replace prior prescription (amlodipine)., # 90 capsule, 11 Refills, Maintenance, 03/01/22 16:04:00 EST, Capsule, [facility] #65395, Partial fill upon patient request if the [...] tablet, 3 Refills, Maintenance, 01/26/23 14:00:00 EST, [facility] #90386, 165, cm, 01/26/23 13:31:00 EST, Height, 88.2, [...] each, 11 Refills, Maintenance, 09/25/21 11:17:00 EDT, [place], [facility] #70894, 1 sprays Nares, Both 2 times a day,x30 days, 165, cm, 09/25/21 11:04:00 EDT, Height, 96, kg, 07/13/21 10:52:00 EDT, Dry... Start Date: 09/25/21 Stop Date: 09/20/22 Status: Ordered fluconazole 150 mg oral tablet 1 tablet = 150 mg, By Mouth, Once, Repeat dose if still having symptoms in 72 hours, # 2 tablet, 1 Refills, Soft Stop, 01/26/23 14:19:00 EST, Tablet, [facility] #75223, Partial fill upon patient request if the [...] 11 Refills, Maintenance, 01/26/23 14:04:00 EST, Aerosol, [facility] #43618, Partial fill upon patient request if the prescription is for a s... Start Date: 01/26/23 Status: Ordered mupirocin 2% topical ointment 1 application, Topically, 3 times a day, # 30 Gm, 2 Refills, Acute 03/13/23 15:24:00 EST, 09/01/22 15:23:00 EDT, Ointment, [facility] #57229, Partial fill upon patient request if the [...] capsule, 4 Refills, Maintenance, 01/26/23 14:02:00 EST, [facility] #25022, 165, cm, 01/26/23 13:31:00 EST, Height, 88.2, [...] 01/26/23 14:02:00 EST, Route to Pharmacy Electronically, [facility] #[id number], 165, cm, 01/26/23 13:31:00 EST, Height, 88.2, [...] Professional Member Role: PCP Address: Address: [address] [place] [id number]- Name: Edenilson Puckett MD Position: [facility] OUTBOARD SYSTEM OPERATOR MD Member Role: Lifetime OUTBOARD SYSTEM OPERATOR Physician Address: Address: [address] [place] [id number]- Name: Jovana Park RN Position: [facility] SN RN Member Role: Primary Care Nurse Name: Chidi Clark DO Position: [facility] Renal MD Member Role: Lifetime Consulting Physician Address: Address: [address] [place] [address] [address] [facility] [place] [address]- Name: Mireya Torres RN Position: S RN Member Role: Primary Care Nurse Name: Starr Harper RN Position: [facility] SN RN Member Role: Primary Care Nurse Name: Kelly Maddox RN Position: S RN Member Role: Primary Care Nurse Care Team Related Persons Name: AMRYA ADRIAN Address: home [address] [place] [address] Name: MORALES HOWELL Address: home [address] [place] [id number]
--- OUTSIDE RECORDS SUMMARY | 2023-09-12 11:36 | XMS_ITS | Continuity of Care Document ---
Author Organization [facility] ter Address [address] [place] [address]- Care Team Providers Care Canvas Baster Jumpbasting Name Role Phone Cesario VALDEZ, Lisseth Hancock Primary Care Physician Encounter [facility] Date(s): 05/14/22 - 06/13/[address] [address] Attending Physician: Janette Connelly Admitting Physician: AdmJanette pa Referring Physician: Admtr ArKeraa Allergies, Adverse Reactions, Alerts Substance Reaction Severity Status sulfADIAZINE rash Active sertraline 1 QT wave change Active fentanyl topical passed out Active sulfa drugs rash Active Haldol Agitation Active Bactrim rash Active NSAIDs 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 Active 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 Start Date: 05/12/22 Status: Ordered albuterol CFC free 90 mcg/inh inhalation aerosol 2, puffs, Inhalation, 4 times a day, PRN, Dispense brand as required by insurance, # 18 Gm, [id number], Tot. Refills 11, Maintenance, 05/12/22 11:38:00 EST, Aerosol, Route to Pharmacy Electronically, [id number], [facility]... Start Date: 05/12/22 Status: Ordered albuterol-ipratropium 3 mg-0.5 mg/3 ml inhalation solution 1 vials, Inhalation, 4 times a day, # 180 mL, 11 Refills, Maintenance, 05/12/22 11:38:00 EST, [facility] #[id number], 15, 1 vials Inhalation 4 times a [...] 11 Refills, Maintenance, 03/01/22 16:04:00 EST, Capsule, [facility] #41215, Partial fill upon patient request if the prescription is for a schedule II opi... Start Date: 03/01/22 Stop Date: 02/13/25 Status: Ordered apixaban 2.5 mg oral tablet 1 tablet = 2.5 mg, By Mouth, 2 times a day, # 60 tablet, 0 Refills, Maintenance, 05/28/22 8:20:00 EDT, Tablet, [facility] 3, Partial fill upon patient request [...] tablet, 11 Refills, Maintenance, 09/25/21 11:17:00 EDT, [facility] #[id number], 165, cm, 09/25/21 11:04:00 EDT, Height, 96, [...] Status: Ordered Dilaudid 4 mg oral tablet 1 tablet = 4 mg, By Mouth, Every 12 hours, PRN for pain, for 7 days, DX post surgical knee pain, # 14 tablet, 0 Refills, Acute 06/15/22 15:57:00 EDT, 06/08/22 15:57:00 EDT, Tablet, [facility] #87007, Partial fill upon patient request if the... Start Date: 06/08/22 Stop Date: 06/15/22 Status: Ordered disposable andrea pads disposable andrea [...] each, 11 Refills, Maintenance, 09/25/21 11:17:00 EDT, [place], [facility] #[id number], 1 sprays Nares, Both 2 times a day,x30 days, 165, cm, 09/25/21 11:04:00 EDT, Height, 96, kg, 07/13/21 10:52:00 EDT, Dry... Start Date: 09/25/21 Stop Date: 09/20/22 Status: Ordered Flovent HFA 220 mcg/inh inhalation aerosol 2 puffs, Inhalation, 2 times a day, # 12 Gm, 11 Refills, Maintenance, 05/19/22 13:39:00 EST, Aerosol, [facility] #[id number], Partial fill upon patient request if the [...] 0 Refills, Maintenance, 05/14/22 11:18:00 EST, Tablet, [facility]... Start Date: 05/14/22 Stop Date: 06/13/22 Status: [...] 05/12/22 11:38:00 EST, Route to Pharmacy Electronically, [facility] #[id number], 168, cm, 05/12/2310:30:00 EST, Height, 85, kg, [...] Team Personnel Name: Tristin Hunt RN Position: [facility] RN Member Role: Primary Care Nurse Name: Lisseth Nassar NP Position: [facility] PCO Associate Professional Member Role: PCP Address: Address: [address] [place] [address]- Name: Edenilson Puckett MD Position: [facility] BLOCK SETTER GYPSUM MD Member Role: Lifetime BLOCK SETTER GYPSUM Physician Address: Address: [address] [place] [address]- Name: Jovana Park RN Position: S RN Member Role: Primary Care Nurse Name: Chidi Clark DO Position: [facility] Renal MD Member Role: Lifetime Consulting Physician Address: Address: [address] [place] [address] [address] [facility] [place] [address]- Name: Mireya Torres RN Position: [facility] RN Member Role: Primary Care Nurse Name: Kelly Maddox RN Position: [facility] RN Member Role: Primary Care Nurse Care Team Related Persons Name: KAYLAH MARYA Address: home [address] [place] [address] Name: MORALES HOWELL Address: home [address] [place] [address]
--- OUTSIDE RECORDS SUMMARY | 2023-09-12 11:36 | XMS_ITS | Continuity of Care Document ---
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 Start Date: 01/26/23 Status: Ordered albuterol CFC free 90 mcg/inh inhalation aerosol 2, puffs, Inhalation, 4 times a day, PRN, Dispense brand as required by insurance, # 1 each, Refills 11, Tot. Refills 11, Maintenance, 01/26/23 14:00:00 EST, Aerosol, Route to Pharmacy Electronically, [id number], [facility] Start Date: 01/26/23 Status: Ordered albuterol-ipratropium 3 mg-0.5 mg/3 ml inhalation solution 1 vials, Inhalation, 4 times a day, # 180 mL, 11 Refills, Maintenance, 01/27/23 9:25:00 EST, [facility] #[id number], 15, 1 vials Inhalation 4 times a [...] tablet, 6 Refills, Maintenance, 12/07/22 16:46:00 EDT, [facility] #[id number], 165, cm, 12/06/22 17:39:00 EDT, Height, 88.2, kg, 05/26/22 7:52:00EDT, Dry Weight Start Date: 12/07/22 Status: Ordered amlodipine-benazepril 5 mg-10 mg oral capsule 1 capsule, By Mouth, Daily, TO. REPLACE BEFORE PRESCRIPTION AMLODIPINE, # 90 capsule, 0 Refills, Maintenance, 04/05/23 10:10:00 EST, [facility] #[id number], 90, TAKE 1 CAPSULE BY MOUTH DAILY [...] tablet, 3 Refills, Maintenance, 01/26/23 14:00:00 EST, [facility] #[id number], 165, cm, 01/26/23 13:31:00 EST, Height, 88.2, kg, 05/26/22 7:52:00 EDT, Dry Weight Start Date: 01/26/23 Stop Date: 01/21/24 Status: Ordered clonazePAM 1 mg oral tablet 1 tablet = 1 mg, By Mouth, 3 times a day, To use sparingly; to fill on/after 04/03/2023, # 90 tablet, 1 Refills, Maintenance, 03/29/23 12:46:00 EST, Tablet, [facility] #[id number], Partial fill upon patient request if the [...] each, 11 Refills, Maintenance, 09/25/21 11:17:00 EDT, [place], [facility] #[id number], 1 sprays Nares, Both 2 times a day,x30 days, 165, cm, 09/25/21 11:04:00 EDT, Height, 96, kg, 07/13/21 10:52:00 EDT, Dry... Start Date: 09/25/21 Stop Date: 09/20/22 Status: Ordered fluconazole 150 mg oral tablet 1 tablet = 150 mg, By Mouth, Once, Repeat dose if still having symptoms in 72 hours, # 2 tablet, 1 Refills, Soft Stop, 01/26/23 14:19:00 EST, Tablet, [facility] #[id number], Partial fill upon patient request if the [...] 11 Refills, Maintenance, 01/26/23 14:04:00 EST, Aerosol, [facility] #[id number], Partial fill upon patient request if the [...] capsule, 4 Refills, Maintenance, 01/26/23 14:02:00 EST, [facility] #[id number], 165, cm, 01/26/23 13:31:00 EST, Height, 88.2, [...] 01/26/23 14:02:00 EST, Route to Pharmacy Electronically, [facility] #[id number], 165, cm, 01/26/23 13:31:00 EST, Height, 88.2, [...] Professional Member Role: PCP Address: Address: [address] [place] [address]- Name: Edenilson Puckett MD Position: [facility] REAL PROPERTY APPRAISER MD Member Role: Lifetime REAL PROPERTY APPRAISER Physician Address: Address: [address] [place] [address]- Name: Jovana Park RN Position: S RN Member Role: Primary Care Nurse Name: Chidi Clark DO Position: [facility] Renal MD Member Role: Lifetime Consulting Physician Address: Address: [address] [place], [place] [address] [place] [address]- Name: Mireya Torres RN Position: S RN Member Role: Primary Care Nurse Name: Starr Harper RN Position: [facility] SN RN Member Role: Primary Care Nurse Name: Kelly Maddox RN Position: S RN Member Role: Primary Care Nurse Care Team Related Persons Name: KAYLAH MARYA Address: home [address] [place] [address] Name: MORALES HOWELL Address: home [address] [place] [address]
--- OUTSIDE RECORDS SUMMARY | 2023-09-12 11:36 | XMS_ITS | Continuity of Care Document ---
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 Start Date: 01/26/23 Status: Ordered albuterol CFC free 90 mcg/inh inhalation aerosol 2, puffs, Inhalation, 4 times a day, PRN, Dispense brand as required by insurance, # 1 each, Refills 11, Tot. Refills 11, Maintenance, 01/26/23 14:00:00 EST, Aerosol, Route to Pharmacy Electronically, [id number], [facility]. Start Date: 01/26/23 Status: Ordered albuterol-ipratropium 3 mg-0.5 mg/3 ml inhalation solution 1 vials, Inhalation, 4 times a day, # 180 mL, 11 Refills, Maintenance, 01/27/23 9:25:00 EST, [facility] #98450, 15, 1 vials Inhalation 4 times a [...] tablet, 6 Refills, Maintenance, 12/07/22 16:46:00 EDT, [facility] #67379, 165, cm, 12/06/22 17:39:00 EDT, Height, 88.2, kg, 05/26/22 7:52:00EDT, Dry Weight Start Date: 12/07/22 Status: Ordered amlodipine-benazepril 5 mg-10 mg oral capsule 1 capsule, By Mouth, Daily, TO. REPLACE BEFORE PRESCRIPTION AMLODIPINE, # 90 capsule, 0 Refills, Maintenance, 04/05/23 10:10:00 EST, [facility] #26085, 90, TAKE 1 CAPSULE BY MOUTH DAILY [...] tablet, 3 Refills, Maintenance, 01/26/23 14:00:00 EST, [facility] #17376, 165, cm, 01/26/23 13:31:00 EST, Height, 88.2, kg, 05/26/22 7:52:00 EDT, Dry Weight Start Date: 01/26/23 Stop Date: 01/21/24 Status: Ordered clonazePAM 1 mg oral tablet 1 tablet = 1 mg, By Mouth, 3 times a day, To use sparingly; to fill on/after 04/03/2023, # 90 tablet, 1 Refills, Maintenance, 03/29/23 12:46:00 EST, Tablet, [facility] #42461, Partial fill upon patient request if the [...] each, 11 Refills, Maintenance, 09/25/21 11:17:00 EDT, [place], [facility] #01543, 1 sprays Nares, Both 2 times a day,x30 days, 165, cm, 09/25/21 11:04:00 EDT, Height, 96, kg, 07/13/21 10:52:00 EDT, Dry... Start Date: 09/25/21 Stop Date: 09/20/22 Status: Ordered fluconazole 150 mg oral tablet 1 tablet = 150 mg, By Mouth, Once, Repeat dose if still having symptoms in 72 hours, # 2 tablet, 1 Refills, Soft Stop, 04/27/23 14:34:00 EST, [facility] #[id number], Partial fill upon patient request if the prescription is for a schedule... Start Date: 04/27/23 Status: Ordered fluticasone 250 mcg/inh inhalation powder 1 puffs, Inhalation, 2 times a day, dispense brand as required by insurance, # 120 each, 11 Refills, Maintenance, 04/29/23 9:44:00 EST, Powder, [facility] #09688, Partial fill upon patient request if the [...] rest daily. Dx HTN on Rx I10, 08/20/20 17:06:00 EDT, Supply Start Date: 11/01/19 Status: [...] capsule, 4 Refills, Maintenance, 01/26/23 14:02:00 EST, [facility] #74522, 165, cm, 01/26/23 13:31:00 EST, Height, 88.2, [...] 01/26/23 14:02:00 EST, Route to Pharmacy Electronically, [facility] #[id number], 165, cm, 01/26/23 13:31:00 EST, Height, 88.2, [...] Display: Inpatient Consult Note, Non- Authored Date: Cardiology * Event Display: Holter Report Authored Date: * Vicki , Laxmi: PERFORM Event Display: Cardiovascular Results Scanned Authored Date: * Vicki , Laxmi: PERFORM Event Display: Cardiovascular Results Scanned Authored Date: Laboratory * Event Display: Laboratory Result Scanned Authored Date: * Event Display: Non BH Lab Results Authored Date: * Event Display: Non BH Lab Results Authored Date: Cardiology Consult note * Event Display: Consult Note Cardiology Authored Date: * Event Display: Consult Note Cardiology Authored Date: * Event Display: Consult Note Cardiology Authored Date: Radiology * Event Display: Ultrasound Renal, Non BH Authored Date: * Event Display: IR [...] Care Nurse Name: Lisseth Nassar NP Position: [facility] PCO Associate Professional Member Role: PCP Address: Address: [address] [place] [address]- [place] Name: Edenilson Puckett MD Position: [facility] TYPESETTERS PRINTER MD Member Role: Lifetime TYPESETTERS PRINTER Physician Address: Address: [address] [place] [address]- [place] Name: Jovana Park RN Position: [facility] SN RN Member Role: Primary Care Nurse Name: Chidi Clark DO Position: [facility] Renal MD Member Role: Lifetime Consulting Physician Address: Address: [address] [place] [address] [address] [facility] [place] [address]- [place] Name: Mireya Torres RN Position: S RN Member Role: Primary Care Nurse Name: Starr Harper RN Position: [facility] SN RN Member Role: Primary Care Nurse Name: Kelly Maddox RN Position: S RN Member Role: Primary Care Nurse Care Team Related Persons Name: MARYA ADRIAN Address: home [address] [place] [address] Name: MORALES HOWELL Address: home [address] [place] [address]
--- OUTSIDE RECORDS SUMMARY | 2023-09-12 11:36 | XMS_ITS | Continuity of Care Document ---
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 Immunizations Given and Recorded Vaccine Date [...] 08/24/23 12:23:00 EDT, Route to Pharmacy Electronically, [facility], Partial fill upon patient [...] 1 Refills, Maintenance, 08/03/23 8:28:00 EDT, Tablet, [facility] #07780, Partial fill upon patient request if the [...] 11 Refills, Maintenance, 04/29/23 9:44:00 EST, Powder, [facility] #12578, Partial fill upon patient request if the [...] 08/24/23 12:23:00 EDT, Route to Pharmacy Electronically, [facility] 3, Partial fill upon patient [...] 01/26/23 14:02:00 EST, Route to Pharmacy Electronically, [facility] #[id number], 165, cm, 01/26/23 13:31:00 EST, Height, 88.2, [...] Team Personnel Name: Siria Lopes RN Position: [facility] RN Member Role: Primary Care Nurse Name: Tristin Hunt RN Position: [facility] RN Member Role: Primary Care Nurse Name: Lisseth Nassar NP Position: [facility] PCO Associate Professional Member Role: PCP Address: Address: [address] [place] [address]- Name: Edenilson Puckett MD Position: [facility] BOOM STORAGE MD Member Role: Lifetime BOOM STORAGE Physician Address: Address: [address] [place] [address]- Name: Jovana Park RN Position: [facility] SN RN Member Role: Primary Care Nurse Name: Ana Maria Grady RN Position: [facility] RN Member Role: Primary Care Nurse Name: Chidi Clark DO Position: [facility] Renal MD Member Role: Lifetime Consulting Physician Address: Address: [address] [place], [place] [address] [place] [address]- Name: Mireya Torres RN Position: [facility] RN Member Role: Primary Care Nurse Name: Starr Harper RN Position: [facility] AMB Nurse Member Role: Primary Care Nurse Name: Tristin Hill RN Position: [facility] RN Member Role: Primary Care Nurse Name: Kelly Maddox RN Position: [facility] RN Member Role: Primary Care Nurse Care Team Related Persons Name: MARYA ADRIAN Address: [place] [address] Name: MORALES HOWELL Address: home [address] [place] [address]
--- OUTSIDE RECORDS SUMMARY | 2023-09-12 11:37 | XMS_ITS | Continuity of Care Document ---
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 Start Date: 05/12/22 Status: Ordered albuterol CFC free 90 mcg/inh inhalation aerosol 2, puffs, Inhalation, 4 times a day, PRN, Dispense brand as required by insurance, # 18 Gm, [id number], Tot. Refills 11, Maintenance, 05/12/22 11:38:00 EST, Aerosol, Route to Pharmacy Electronically, [id number], [facility]... Start Date: 05/12/22 Status: Ordered albuterol-ipratropium 3 mg-0.5 mg/3 ml inhalation solution 1 vials, Inhalation, 4 times a day, # 180 mL, 11 Refills, Maintenance, 05/12/22 11:38:00 EST, [facility] #41226, 15, 1 vials Inhalation 4 times a [...] 11 Refills, Maintenance, 03/01/22 16:04:00 EST, Capsule, [facility] #63593, Partial fill upon patient request if the prescription is for a schedule II opi... Start Date: 03/01/22 Stop Date: 02/13/25 Status: Ordered apixaban 2.5 mg oral tablet 1 tablet = 2.5 mg, By Mouth, 2 times a day, # 60 tablet, 0 Refills, Maintenance, 05/28/22 8:20:00 EDT, Tablet, [facility] 3, Partial fill upon patient request [...] tablet, 11 Refills, Maintenance, 09/25/21 11:17:00 EDT, [facility] #85589, 165, cm, 09/25/21 11:04:00 EDT, Height, 96, [...] each, 11 Refills, Maintenance, 09/25/21 11:17:00 EDT, [place], [facility] #79244, 1 sprays Nares, Both 2 times a day,x30 days, 165, cm, 09/25/21 11:04:00 EDT, Height, 96, kg, 07/13/21 10:52:00 EDT, Dry... Start Date: 09/25/21 Stop Date: 09/20/22 Status: Ordered Flovent HFA 220 mcg/inh inhalation aerosol 2 puffs, Inhalation, 2 times a day, # 12 Gm, 11 Refills, Maintenance, 05/19/22 13:39:00 EST, Aerosol, [facility] #09388, Partial fill upon patient request if the [...] 05/12/22 11:38:00 EST, Route to Pharmacy Electronically, [facility] #[id number], 168, cm, 05/12/2310:30:00 EST, Height, 85, kg, [...] Team Personnel Name: Tristin Hunt RN Position: [facility] RN Member Role: Primary Care Nurse Name: Lisseth Nassar NP Position: [facility] PCO Associate Professional Member Role: PCP Address: Address: [address] [place] [address]- Name: Edenilson Puckett MD Position: [facility] CINDER SNAPPER MD Member Role: Lifetime CINDER SNAPPER Physician Address: Address: [address] [place] [address]- Name: Jovana Park RN Position: S RN Member Role: Primary Care Nurse Name: Chidi Clark DO Position: [facility] Renal MD Member Role: Lifetime Consulting Physician Address: Address: [address] [place] [address] [address] [facility] [place] [address]- Name: Mireya Torres RN Position: S RN Member Role: Primary Care Nurse Name: Kelly Maddox RN Position: S RN Member Role: Primary Care Nurse Care Team Related Persons Name: KAYLAH MARYA Address: home [address] [place] [address] Name: MORALES HOWELL Address: home [address] [place] [address]
--- OUTSIDE RECORDS SUMMARY | 2023-09-12 11:37 | XMS_ITS | Continuity of Care Document ---
Author Organization [facility] Address [address] [place] [address]- Care Team Providers Care Electrotype Finisher Name Role Phone Cesario VALDEZ, Lisseth Hancock Primary Care Physician Encounter [facility] Date(s): 03/02/21 - 04/03/[address] [address]- Attending Physician: Philomena Floyd MD Admitting Physician: Philomena Floyd MD Referring Physician: Lisseth Nassar NP Allergies, Adverse Reactions, Alerts Substance Reaction Severity Status sulfADIAZINE rash Active morphine rash & swelling Active sertraline 1 QT wave change Active sulfa drugs rash Active Bactrim rash Active NSAIDs 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 Refills 11, Maintenance, 11/24/17 13:49:05 EDT, Aerosol, Route to Pharmacy Electronically, [id number], [facility], Compound Start Date: 11/24/17 Status: Ordered albuterol-ipratropium 3 mg-0.5 mg/3 ml inhalation solution 1 vials, Inhalation, 4 times a day, # 180 mL, 5 Refills, Maintenance, 07/30/19 11:02:00 EDT, [facility] #95558, 15, INHALE CONTENTS OF 1 VIAL VIA NEBULIZER FOUR TIMES DAILY, 167.64, cm, 04/24/19 16:16:00 EST, Height, 100.4, kg, 08/03/18 10:1... Start Date: 07/30/19 Status: Ordered amlodipine-benazepril 5 mg-10 mg oral capsule 1 capsule, By Mouth, Daily, To replace prior prescription (amlodipine)., # 30 capsule, 3 Refills, Maintenance, 03/10/21 15:34:00 EST, Capsule, [facility] #46159, Partial fill upon patient request if the prescription is for a schedule II opio... Start Date: 03/10/21 Status: Ordered aspirin 81 mg oral delayed release tablet 81 mg, 1, tablet, By Mouth, Daily, # 30 tablet, Refills 5, Tot. Refills 5, Maintenance, 11/02/19 11:39:00 EDT, Route to Pharmacy Electronically, [facility] #08392, 167.64, cm, 11/02/19 10:58:00 EDT, Height, 100.4, kg, 08/03/18 10:14:00 EDT,... Start Date: 11/02/19 Status: Ordered bacitracin topical 500 u/gm ointment 1 application, Topically, 4 times a day, # 30 Gm, 0 Refills, Maintenance, 09/02/20 15:20:00 EDT, Ointment, [facility] #77920, Partial fill upon patient request if the prescription is for a schedule II opioid drug., 1 application Topically 4... Start Date: 09/02/20 Stop Date: 09/12/20 Status: Ordered baclofen 10 mg oral tablet 1, tablet, By Mouth, 3 times a day, # 60 tablet, Refills 0, Tot. Refills 0, Maintenance, 02/25/20 13:59:00 EST, Route to Pharmacy Electronically, [facility] #[id number], 167.64, cm, 11/12/19 15:34:00 EDT, Height, 100.4, [...] tablet, 11 Refills, Maintenance, 01/11/20 10:43:00 EDT, [facility] #95944, 167.64, cm, 11/12/19 15:34:00 EDT, Height, 100.4, [...] DAILY, # 44 mL, 0 Refills, Maintenance, [facility] #55764, 29, SPRAY TWICE IN EACH NOSTRIL FOUR [...] 07/18/20 12:54:00 EDT, Route to Pharmacy Electronically, [facility]... Start Date: 07/18/20 Stop Date: 07/13/21 Status: Ordered Flonase 50 mcg/inh nasal spray 1 sprays, Nares, Both, 2 times a day, # 1 each, 5 Refills, Maintenance, 06/05/18 19:53:47 EDT, [place], 1 sprays Nares, Both 2 times a [...] Acute 03/13/22 14:45:00 EST, 03/20/2213:45:00 EST, Ointment, [facility] #43591, Partial fill upon patient request if the [...] 11 Refills, Maintenance, 03/02/19 10:19:00 EST, Capsule, [facility] #59339, 1 capsule By Mouth Daily, 167.64, cm, [...] 4 HOURS NEEDED FOR NAUSEA OR VOMITING, [facility] #62443 Start Date: 12/05/18 Status: Ordered raised toilet [...] Maintenance, 06/02/17 13:39:59, Route to Pharmacy Electronically, [id number], [facility] [address] Start Date: 06/02/17 Status: Ordered tiZANidine 2 mg oral tablet 2 mg, 1, tablet, By Mouth, Every 8 hours, PRN, # 90 tablet, Refills 3, Tot. Refills 3, Maintenance,as needed for muscle spasm, 01/30/21 8:11:00 EST, Route to Pharmacy Electronically, [facility] #45507, Partial fill upon patient request, 167... Start [...]
--- OUTSIDE RECORDS SUMMARY | 2023-09-12 11:37 | XMS_ITS | Continuity of Care Document ---
Author Organization [facility] Address [address] [place] [address]- Care Team Providers Care Molder Labels Name Role Phone Cesario VALDEZ, Lisseth Terrell Primary Care Physician [phone] Encounter [facility] [place] Date(s): 05/23/19 - 06/02/[address] [address]- 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 Refills 11, Maintenance, 11/24/17 13:49:05 EDT, Aerosol, Route to Pharmacy Electronically, [id number], [facility] 89707, Compound Start Date: 11/24/17 Status: Ordered albuterol-ipratropium 3 mg-0.5 mg/3 ml inhalation solution 3 mL, Inhalation, 4 times a day, # 60 each, 6 Refills, Maintenance, 02/17/18 14:50:32 EST, Solution, 3 mL Inhalation 4 times a day Start Date: 02/17/18 Status: Ordered amLODIPine 10 mg oral tablet 1 tablet, By Mouth, Daily, # 30 tablet, 0 Refills, Maintenance, 05/16/19 10:09:00 EST, [facility] #60028, 167.64, cm, 04/24/19 16:16:00 EST, Height, 100.4, kg, 08/03/18 10:14:00 EDT, Dry Weight Start Date: 05/16/19 Status: Ordered baclofen 10 mg oral tablet 1, tablet, By Mouth, 3 times a day, # 60 tablet, Refills 0, Tot. Refills 0, Maintenance, 04/16/19 14:21:00 EST, Route to Pharmacy Electronically, [facility] #[id number], 167.64, cm, 03/02/19 10:23:00 EST, Height, 100.4, [...] 5 Refills, Maintenance, 04/16/19 13:06:00 EST, Tablet, [facility] #47838, 167.64, cm, 03/02/19 10:23:00 EST, Height, 100.4, [...] each, 5 Refills, Maintenance, 06/05/18 19:53:47 EDT, [place], 1 sprays Nares, Both 2 times a [...] 11 Refills, Maintenance, 03/02/19 10:19:00 EST, Capsule, [facility] #20268, 1 capsule By Mouth Daily, 167.64, cm, [...] 4 HOURS NEEDED FOR NAUSEA OR VOMITING, [facility] #72147 Start Date: 12/05/18 Status: Ordered raised toilet [...] Maintenance, 06/02/17 13:39:59, Route to Pharmacy Electronically, [id number], [facility] [address] Start Date: 06/02/17 Status: Ordered Transfer Bench [...]
--- OUTSIDE RECORDS SUMMARY | 2023-09-12 11:37 | XMS_ITS | Continuity of Care Document ---
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 Refills 11, Maintenance, 11/24/17 13:49:05 EDT, Aerosol, Route to Pharmacy Electronically, [id number], [facility] [address], Compound Start Date: 11/24/17 Status: Ordered albuterol-ipratropium 3 mg-0.5 mg/3 ml inhalation solution 1 vials, Inhalation, 4 times a day, # 180 mL, 5 Refills, Maintenance, 07/30/19 11:02:00 EDT, [facility] #66064, 15, INHALE CONTENTS OF 1 VIAL VIA NEBULIZER FOUR TIMES DAILY, 167.64, cm, 04/24/19 16:16:00 EST, Height, 100.4, kg, 08/03/18 10:1... Start Date: 07/30/19 Status: Ordered amLODIPine 10 mg oral tablet 1 tablet, By Mouth, Daily, # 30 tablet, 2 Refills, Maintenance, 06/15/19 9:43:00 EDT, [facility] #98067, 167.64, cm, 04/24/19 16:16:00 EST, Height, 100.4, kg, 08/03/18 10:14:00 EDT, Dry Weight Start Date: 06/15/19 Status: Ordered baclofen 10 mg oral tablet 1, tablet, By Mouth, 3 times a day, # 60 tablet, Refills 2, Tot. Refills 2, Maintenance, 06/14/19 9:10:00 EDT, Route to Pharmacy Electronically, [facility] #19012, 167.64, cm, 04/24/19 16:16:00 EST, Height, 100.4, [...] 5 Refills, Maintenance, 04/16/19 13:06:00 EST, Tablet, [facility] #19954, 167.64, cm, 03/02/19 10:23:00 EST, Height, 100.4, [...] # 44 mL, 0 Refills, Maintenance, [facility] #89193, 29, SPRAY TWICE IN EACH NOSTRIL FOUR [...] each, 5 Refills, Maintenance, 06/05/18 19:53:47 EDT, [place], 1 sprays Nares, Both 2 times a [...] 11 Refills, Maintenance, 03/02/19 10:19:00 EST, Capsule, [facility] #18786, 1 capsule By Mouth Daily, 167.64, cm, [...] 4 HOURS NEEDED FOR NAUSEA OR VOMITING, [facility] #69810 Start Date: 12/05/18 Status: Ordered raised toilet [...] Maintenance, 06/02/17 13:39:59, Route to Pharmacy Electronically, [id number], [facility] [address] Start Date: 06/02/17 Status: Ordered Transfer Bench [...]
--- OUTSIDE RECORDS SUMMARY | 2023-09-12 11:37 | XMS_ITS | Continuity of Care Document ---
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 Refills 11, Maintenance, 11/24/17 13:49:05 EDT, Aerosol, Route to Pharmacy Electronically, [id number], [facility] [address], Compound Start Date: 11/24/17 Status: Ordered albuterol-ipratropium 3 mg-0.5 mg/3 ml inhalation solution 1 vials, Inhalation, 4 times a day, # 180 mL, 5 Refills, Maintenance, 07/30/19 11:02:00 EDT, [facility] #61650, 15, INHALE CONTENTS OF 1 VIAL VIA NEBULIZER FOUR TIMES DAILY, 167.64, cm, 04/24/19 16:16:00 EST, Height, 100.4, kg, 08/03/18 10:1... Start Date: 07/30/19 Status: Ordered amlodipine-benazepril 5 mg-10 mg oral capsule 1 capsule, By Mouth, Daily, To replace prior prescription (amlodipine)., # 30 capsule, 11 Refills, Maintenance, 04/23/21 14:51:00 EST, Capsule, [facility] #75820, Partial fill upon patient request if the prescription is for a schedule II opi... Start Date: 04/23/21 Status: Ordered aspirin 81 mg oral delayed release tablet 81 mg, 1, tablet, By Mouth, Daily, # 30 tablet, Refills 5, Tot. Refills 5, Maintenance, 11/02/19 11:39:00 EDT, Route to Pharmacy Electronically, [facility] #04740, 167.64, cm, 11/02/19 10:58:00 EDT, Height, 100.4, kg, 08/03/18 10:14:00 EDT,... Start Date: 11/02/19 Status: Ordered bacitracin topical 500 u/gm ointment 1 application, Topically, 4 times a day, # 30 Gm, 0 Refills, Maintenance, 09/02/20 15:20:00 EDT, Ointment, [facility] #84929, Partial fill upon patient request if the prescription is for a schedule II opioid drug., 1 application Topically 4... Start Date: 09/02/20 Stop Date: 09/12/20 Status: Ordered baclofen 10 mg oral tablet 1, tablet, By Mouth, 3 times a day, # 60 tablet, Refills 0, Tot. Refills 0, Maintenance, 02/25/20 13:59:00 EST, Route to Pharmacy Electronically, [facility] #31734, 167.64, cm, 11/12/19 15:34:00 EDT, Height, 100.4, [...] tablet, 11 Refills, Maintenance, 01/11/20 10:43:00 EDT, [facility] #90086, 167.64, cm, 11/12/19 15:34:00 EDT, Height, 100.4, [...] DAILY, # 44 mL, 0 Refills, Maintenance, [facility]05[facility], 29, SPRAY TWICE IN EACH NOSTRIL FOUR [...] 07/18/20 12:54:00 EDT, Route to Pharmacy Electronically, [facility]... Start Date: 07/18/20 Stop Date: 07/13/21 Status: Ordered Flonase 50 mcg/inh nasal spray 1 sprays, Nares, Both, 2 times a day, # 1 each, 5 Refills, Maintenance, 06/05/18 19:53:47 EDT, [place], 1 sprays Nares, Both 2 times a [...] Acute 03/13/22 14:45:00 EST, 03/20/2213:45:00 EST, Ointment, [facility] #37232, Partial fill upon patient request if the [...] 11 Refills, Maintenance, 03/02/19 10:19:00 EST, Capsule, [facility] #67208, 1 capsule By Mouth Daily, 167.64, cm, [...] 4 HOURS NEEDED FOR NAUSEA OR VOMITING, [facility] #24640 Start Date: 12/05/18 Status: Ordered raised toilet [...] Maintenance, 06/02/17 13:39:59, Route to Pharmacy Electronically, [id number], [facility] Start Date: 06/02/17 Status: Ordered tiZANidine 2 mg oral tablet 2 mg, 1, tablet, By Mouth, Every 8 hours, PRN, # 90 tablet, Refills 3, Tot. Refills 3, Maintenance,as needed for muscle spasm, 01/30/21 8:11:00 EST, Route to Pharmacy Electronically, [facility] #67526, Partial fill upon patient request, 167... Start [...]
--- OUTSIDE RECORDS SUMMARY | 2023-09-12 11:37 | XMS_ITS | Continuity of Care Document ---
Author Organization [facility] Address [address] [place] [address]- Care Team Providers Care Creative Intern Name Role Phone Cesario JACQUARD CARD CUTTER, Lisseth Hancock Primary Care Physician [phone] Encounter [facility] Date(s): 05/10/22 - 06/09/22 [facility] [address] [place], [place] [address] Attending Physician: Janette Connelly Admitting Physician: Janette Connelly Referring Physician: AdmtrJanette Allergies, Adverse Reactions, Alerts Substance Reaction Severity Status sulfADIAZINE rash Active sertraline 1 QT wave change Active fentanyl topical passed out Active sulfa drugs rash Active Haldol Agitation Active Bactrim rash Active NSAIDs 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 Start Date: 05/12/22 Status: Ordered albuterol CFC free 90 mcg/inh inhalation aerosol 2, puffs, Inhalation, 4 times a day, PRN, Dispense brand as required by insurance, # 18 Gm, [id number], Tot. Refills 11, Maintenance, 05/12/22 11:38:00 EST, Aerosol, Route to Pharmacy Electronically, [id number], [facility]... Start Date: 05/12/22 Status: Ordered albuterol-ipratropium 3 mg-0.5 mg/3 ml inhalation solution 1 vials, Inhalation, 4 times a day, # 180 mL, 11 Refills, Maintenance, 05/12/22 11:38:00 EST, [facility] #88071, 15, 1 vials Inhalation 4 times a [...] 11 Refills, Maintenance, 03/01/22 16:04:00 EST, Capsule, [facility] #61033, Partial fill upon patient request if the prescription is for a schedule II opi... Start Date: 03/01/22 Stop Date: 02/13/25 Status: Ordered apixaban 2.5 mg oral tablet 1 tablet = 2.5 mg, By Mouth, 2 times a day, # 60 tablet, 0 Refills, Maintenance, 05/28/22 8:20:00 EDT, Tablet, [facility] 3, Partial fill upon patient [...] tablet, 11 Refills, Maintenance, 09/25/21 11:17:00 EDT, [facility] #05226, 165, cm, 09/25/21 11:04:00 EDT, Height, 96, [...] 06/15/22 15:57:00 EDT, 06/08/22 15:57:00 EDT, Tablet, [facility] #00611, Partial fill upon patient request if the... [...] each, 11 Refills, Maintenance, 09/25/21 11:17:00 EDT, [place], [facility] #59486, 1 sprays Nares, Both 2 times a day,x30 days, 165, cm, 09/25/21 11:04:00 EDT, Height, 96, kg, 07/13/21 10:52:00 EDT, Dry... Start Date: 09/25/21 Stop Date: 09/20/22 Status: Ordered Flovent HFA 220 mcg/inh inhalation aerosol 2 puffs, Inhalation, 2 times a day, # 12 Gm, 11 Refills, Maintenance, 05/19/22 13:39:00 EST, Aerosol, [facility] #53541, Partial fill upon patient request if the [...] 05/12/22 11:38:00 EST, Route to Pharmacy Electronically, [facility] #85158, 168, cm, 05/12/2310:30:00 EST, Height, 85, kg, [...] Care Nurse Name: Lisseth Nassar NP Position: [facility] PCO Associate Professional Member Role: PCP Address: Address: [address] [place] [address]- Name: Edenilson Puckett MD Position: [facility] MAILROOM COORDINATOR MD Member Role: Lifetime MAILROOM COORDINATOR Physician Address: Address: [address] [place] [address]- [place] Name: Jovana Park RN Position: S RN Member Role: Primary Care Nurse Name: Chidi Clark DO Position: [facility] Renal MD Member Role: Lifetime Consulting Physician Address: Address: [address] [place] [address] [address] [facility] [place] [address]- Name: Mireya Torres RN Position: S RN Member Role: Primary Care Nurse Name: Kelly Maddox RN Position: [facility] RN Member Role: Primary Care Nurse Care Team Related Persons Name: KAYLAH MARYA Address: home [address] [place] [address] Name: MORALES HOWELL Address: home [address] [place] [address]
--- OUTSIDE RECORDS SUMMARY | 2023-09-12 11:37 | XMS_ITS | Continuity of Care Document ---
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 Start Date: 05/12/22 Status: Ordered albuterol CFC free 90 mcg/inh inhalation aerosol 2, puffs, Inhalation, 4 times a day, PRN, Dispense brand as required by insurance, # 18 Gm, [id number], Tot. Refills 11, Maintenance, 05/12/22 11:38:00 EST, Aerosol, Route to Pharmacy Electronically, [id number], [facility]... Start Date: 05/12/22 Status: Ordered albuterol-ipratropium 3 mg-0.5 mg/3 ml inhalation solution 1 vials, Inhalation, 4 times a day, # 180 mL, 11 Refills, Maintenance, 05/12/22 11:38:00 EST, [facility] #50553, 15, 1 vials Inhalation 4 times a [...] 11 Refills, Maintenance, 03/01/22 16:04:00 EST, Capsule, [facility] #00605, Partial fill upon patient request if the prescription is for a schedule II opi... Start Date: 03/01/22 Stop Date: 02/13/25 Status: Ordered apixaban 2.5 mg oral tablet 1 tablet = 2.5 mg, By Mouth, 2 times a day, # 60 tablet, 0 Refills, Maintenance, 05/28/22 8:20:00 EDT, Tablet, [facility] 3, Partial fill upon patient request [...] tablet, 11 Refills, Maintenance, 09/25/21 11:17:00 EDT, [facility] #21258, 165, cm, 09/25/21 11:04:00 EDT, Height, 96, [...] each, 11 Refills, Maintenance, 09/25/21 11:17:00 EDT, [place], [facility] #29592, 1 sprays Nares, Both 2 times a day,x30 days, 165, cm, 09/25/21 11:04:00 EDT, Height, 96, kg, 07/13/21 10:52:00 EDT, Dry... Start Date: 09/25/21 Stop Date: 09/20/22 Status: Ordered Flovent HFA 220 mcg/inh inhalation aerosol 2 puffs, Inhalation, 2 times a day, # 12 Gm, 11 Refills, Maintenance, 05/19/22 13:39:00 EST, Aerosol, [facility] #45857, Partial fill upon patient request if the [...] 03/13/23 15:24:00 EST, 09/01/22 15:23:00 EDT, Ointment, [facility] #44661, Partial fill upon patient request if the [...] 05/12/22 11:38:00 EST, [facility] to [facility]ically, [facility], 168, cm, 05/12/2310:30:00 EST, Height, 85, kg, [...] Team Personnel Name: Tristin Hunt RN Position: [facility] RN Member Role: Primary Care Nurse Name: Lisseth Nassar NP Position: [facility] PCO Associate Professional Member Role: PCP Address: Address: [address] [place] [address]- [place] Name: Edenilson Puckett MD Position: [facility] GRAPHIC COORDINATOR MD Member Role: Lifetime GRAPHIC COORDINATOR Physician Address: Address: [address] [place] [address]- [place] Name: Jovana Park RN Position: [facility] RN Member Role: Primary Care Nurse Name: Chidi Clark DO Position: [facility] Renal MD Member Role: Lifetime Consulting Physician Address: Address: [address] [place] [address] [address] [facility] [place] [place] [address]- [place] Name: Mireya Torres RN Position: [facility] RN Member Role: Primary Care Nurse Name: Kelly Maddox RN Position: [facility] RN Member Role: Primary Care Nurse Care Team Related Persons Name: MARYA ADRIAN Address: home [address] [place] [address] Name: MORALES HOWELL Address: home [address] [place] [address]
--- OUTSIDE RECORDS SUMMARY | 2023-09-12 11:37 | XMS_ITS | Continuity of Care Document ---
Author Organization [facility] Address [address] [place] [address]- Care Team Providers Care Transverse Abdominal Muscle Nurse Name Role Phone Cesario BUSINESS MANAGEMENT SPECIALIST, Lisseth Hancock Primary Care Physician [phone] Encounter [facility] Date(s): 10/09/20 - 11/08/20 [facility] [address] [place] [address]- [place] Allergies, Adverse Reactions, Alerts Substance Reaction Severity Status sulfADIAZINE rash Active morphine rash & swelling Active sertraline 1 QT wave change Active sulfa drugs rash Active Bactrim rash Active NSAIDs 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 Refills 11, Maintenance, 11/24/17 13:49:05 EDT, Aerosol, Route to Pharmacy Electronically, [id number], [facility] [address], Compound Start Date: 11/24/17 Status: Ordered albuterol-ipratropium 3 mg-0.5 mg/3 ml inhalation solution 1 vials, Inhalation, 4 times a day, # 180 mL, 5 Refills, Maintenance, 07/30/19 11:02:00 EDT, [facility] #31722, 15, INHALE CONTENTS OF 1 VIAL VIA NEBULIZER FOUR TIMES DAILY, 167.64, cm, 04/24/19 16:16:00 EST, Height, 100.4, kg, 08/03/18 10:1... Start Date: 07/30/19 Status: Ordered amLODIPine 10 mg oral tablet 1 tablet, By Mouth, Daily, # 30 tablet, 5 Refills, Maintenance, 05/06/20 12:30:00 EST, [facility] #12454, 167.64, cm, 03/25/20 14:59:00 EST, Height, 100.4, kg, 08/03/18 10:14:00 EDT, Dry Weight Start Date: 05/06/20 Status: Ordered aspirin 81 mg oral delayed release tablet 81 mg, 1, tablet, By Mouth, Daily, # 30 tablet, Refills 5, Tot. Refills 5, Maintenance, 11/02/19 11:39:00 EDT, Route to Pharmacy Electronically, [facility] #11403, 167.64, cm, 11/02/19 10:58:00 EDT, Height, 100.4, kg, 08/03/18 10:14:00 EDT,... Start Date: 11/02/19 Status: Ordered bacitracin topical 500 u/gm ointment 1 application, Topically, 4 times a day, # 30 Gm, 0 Refills, Maintenance, 09/02/20 15:20:00 EDT, Ointment, [facility] #02946, Partial fill upon patient request if the prescription is for a schedule II opioid drug., 1 application Topically 4... Start Date: 09/02/20 Stop Date: 09/12/20 Status: Ordered baclofen 10 mg oral tablet 1, tablet, By Mouth, 3 times a day, # 60 tablet, Refills 0, Tot. Refills 0, Maintenance, 02/25/20 13:59:00 EST, Route to Pharmacy Electronically, [facility] #71679, 167.64, cm, 11/12/19 15:34:00 EDT, Height, 100.4, [...] tablet, 11 Refills, Maintenance, 01/11/20 10:43:00 EDT, [facility] #80834, 167.64, cm, 11/12/19 15:34:00 EDT, Height, 100.4, [...] DAILY, # 44 mL, 0 Refills, Maintenance, [facility] #33656, 29, SPRAY TWICE IN EACH NOSTRIL FOUR [...] each, 5 Refills, Maintenance, 06/05/18 19:53:47 EDT, [place], 1 sprays Nares, Both 2 times a [...] 10:19:00 EST, Capsule, [facility] #21419, 1 capsule By Mouth Daily, 167.64, cm, [...] Refills, Maintenance, 11/12/19 15:38:00 EDT Start Date: 8/31/20 Status: Ordered promethazine 25 mg oral tablet 1 tablet = 25 mg, By Mouth, Every 4 hours, PRN for nausea/vomiting, # 60 tablet, 11 Refills, Maintenance, 01/12/19 9:54:33 EDT, Tablet Start Date: 01/12/19 Status: Ordered promethazine 25 mg oral tablet See Instructions, # 60 tablet, TAKE 1 TABLET BY MOUTH EVERY 4 HOURS NEEDED FOR NAUSEA OR VOMITING, [facility] #62748 Start Date: 12/05/18 Status: Ordered raised toilet [...] Maintenance, 06/02/17 13:39:59, Route to Pharmacy Electronically, [id number], [facility] [address] Start Date: 06/02/17 Status: Ordered tiZANidine 2 mg oral tablet 2 mg, 1, tablet, By Mouth, Every 8 hours, PRN, # 90 tablet, Refills 3, Tot. Refills 3, Maintenance,as needed for muscle spasm, 02/08/20 9:24:00 EST, Route to Pharmacy Electronically, [facility] #36350, Partial fill upon patient request, 167... Start [...]
--- OUTSIDE RECORDS SUMMARY | 2023-09-12 11:37 | XMS_ITS | Continuity of Care Document ---
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 Start Date: 01/26/23 Status: Ordered albuterol CFC free 90 mcg/inh inhalation aerosol 2, puffs, Inhalation, 4 times a day, PRN, Dispense brand as required by insurance, # 1 each, Refills 11, Tot. Refills 11, Maintenance, 01/26/23 14:00:00 EST, Aerosol, Route to Pharmacy Electronically, [id number], [facility]. Start Date: 01/26/23 Status: Ordered albuterol-ipratropium 3 mg-0.5 mg/3 ml inhalation solution 1 vials, Inhalation, 4 times a day, # 180 mL, 11 Refills, Maintenance, 01/27/23 9:25:00 EST, [facility] #[id number], 15, 1 vials Inhalation 4 times a [...] tablet, 6 Refills, Maintenance, 12/07/22 16:46:00 EDT, [facility] #66988, 165, cm, 12/06/22 17:39:00 EDT, Height, 88.2, kg, 05/26/22 7:52:00EDT, Dry Weight Start Date: 12/07/22 Status: Ordered amlodipine-benazepril 5 mg-10 mg oral capsule 1 capsule, By Mouth, Daily, To replace prior prescription (amlodipine)., # 90 capsule, 11 Refills, Maintenance, 03/01/22 16:04:00 EST, Capsule, [facility] #98602, Partial fill upon patient request if the [...] tablet, 3 Refills, Maintenance, 01/26/23 14:00:00 EST, [facility] #28603, 165, cm, 01/26/23 13:31:00 EST, Height, 88.2, kg, 05/26/22 7:52:00 EDT, Dry Weight Start Date: 01/26/23 Stop Date: 01/21/24 Status: Ordered clonazePAM 1 mg oral tablet 1 tablet = 1 mg, By Mouth, 3 times a day, To use sparingly; to fill on/after 04/03/2023, # 90 tablet, 1 Refills, Maintenance, 03/29/23 12:46:00 EST, Tablet, [facility] #23234, Partial fill upon patient request if the [...] each, 11 Refills, Maintenance, 09/25/21 11:17:00 EDT, [place], [facility] #94189, 1 sprays Nares, Both 2 times a day,x30 days, 165, cm, 09/25/21 11:04:00 EDT, Height, 96, kg, 07/13/21 10:52:00 EDT, Dry... Start Date: 09/25/21 Stop Date: 09/20/22 Status: Ordered fluconazole 150 mg oral tablet 1 tablet = 150 mg, By Mouth, Once, Repeat dose if still having symptoms in 72 hours, # 2 tablet, 1 Refills, Soft Stop, 01/26/23 14:19:00 EST, Tablet, [facility] #16932, Partial fill upon patient request if the [...] 14:04:00 EST, Aerosol, [facility] #66827, Partial fill upon patient request if the [...] capsule, 4 Refills, Maintenance, 01/26/23 14:02:00 EST, [facility] #30718, 165, cm, 01/26/23 13:31:00 EST, Height, 88.2, [...] 01/26/23 14:02:00 EST, [facility], 165, cm, 01/26/23 13:31:00 EST, Height, 88.2, [...] Care Nurse Name: Lisseth Nassar NP Position: [facility] PCO Associate Professional Member Role: PCP Address: Address: [address] [place] [address]- Name: Edenilson Puckett MD Position: [facility] C T TECH MD Member Role: Lifetime C T TECH Physician Address: Address: [address] [place] [address]- Name: Jovana Park RN Position: [facility] SN RN Member Role: Primary Care Nurse Name: Chidi Clark DO Position: [facility] Renal MD Member Role: Lifetime Consulting Physician Address: Address: [address] [place] [address] [address] [facility] [place] [address]- Name: Mireya Torres RN Position: S RN Member Role: Primary Care Nurse Name: Starr Harper RN Position: [facility] SN RN Member Role: Primary Care Nurse Name: Kelly Maddox RN Position: S RN Member Role: Primary Care Nurse Care Team Related Persons Name: MARYA ADRIAN Address: [address] [address] Name: MORALES HOWELL Address: home [address] [place] [address]
--- OUTSIDE RECORDS SUMMARY | 2023-09-12 11:37 | XMS_ITS | Continuity of Care Document ---
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 Refills 11, Maintenance, 11/24/17 13:49:05 EDT, Aerosol, Route to Pharmacy Electronically, [id number], [email or web address] [address], Compound Start Date: 11/24/17 Status: Ordered albuterol-ipratropium 3 mg-0.5 mg/3 ml inhalation solution 1 vials, Inhalation, 4 times a day, # 180 mL, 5 Refills, Maintenance, 07/30/19 11:02:00 EDT, [facility] #54371, 15, INHALE CONTENTS OF 1 VIAL VIA NEBULIZER FOUR TIMES DAILY, 167.64, cm, 04/24/19 16:16:00 EST, Height, 100.4, kg, 08/03/18 10:1... Start Date: 07/30/19 Status: Ordered amLODIPine 10 mg oral tablet 1 tablet, By Mouth, Daily, # 30 tablet, 5 Refills, Maintenance, 05/06/20 12:30:00 EST, [facility] #98890, 167.64, cm, 03/25/20 14:59:00 EST, Height, 100.4, kg, 08/03/18 10:14:00 EDT, Dry Weight Start Date: 05/06/20 Status: Ordered aspirin 81 mg oral delayed release tablet 81 mg, 1, tablet, By Mouth, Daily, # 30 tablet, Refills 5, Tot. Refills 5, Maintenance, 11/02/19 11:39:00 EDT, Route to Pharmacy Electronically, [facility] #29713, 167.64, cm, 11/02/19 10:58:00 EDT, Height, 100.4, kg, 08/03/18 10:14:00 EDT,... Start Date: 11/02/19 Status: Ordered bacitracin topical 500 u/gm ointment 1 application, Topically, 4 times a day, # 30 Gm, 0 Refills, Maintenance, 09/02/20 15:20:00 EDT, Ointment, [facility] #85116, Partial fill upon patient request if the prescription is for a schedule II opioid drug., 1 application Topically 4... Start Date: 09/02/20 Stop Date: 09/12/20 Status: Ordered baclofen 10 mg oral tablet 1, tablet, By Mouth, 3 times a day, # 60 tablet, Refills 0, Tot. Refills 0, Maintenance, 02/25/20 13:59:00 EST, Route to Pharmacy Electronically, [facility] #67724, 167.64, cm, 11/12/19 15:34:00 EDT, Height, 100.4, [...] tablet, 11 Refills, Maintenance, 01/11/20 10:43:00 EDT, [facility] #25415, 167.64, cm, 11/12/19 15:34:00 EDT, Height, 100.4, [...] DAILY, # 44 mL, 0 Refills, Maintenance, [facility] #62545, 29, SPRAY TWICE IN EACH NOSTRIL FOUR [...] injectable kit = 0.3 mg, Intramuscular, Once, July use generic, # 1 each, 0 Refills, [...] each, 5 Refills, Maintenance, 06/05/18 19:53:47 EDT, [place], 1 sprays Nares, Both 2 times a [...] 11 Refills, Maintenance, 03/02/19 10:19:00 EST, Capsule, [facility] #25881, 1 capsule By Mouth Daily, 167.64, cm, [...] 4 HOURS NEEDED FOR NAUSEA OR VOMITING, [facility] #73458 Start Date: 12/05/18 Status: Ordered raised toilet [...] Maintenance, 06/02/17 13:39:59, Route to Pharmacy Electronically, [id number], [facility] [address] Start Date: 06/02/17 Status: Ordered tiZANidine 2 mg oral tablet 2 mg, 1, tablet, By Mouth, Every 8 hours, PRN, # 90 tablet, Refills 3, Tot. Refills 3, Maintenance,as needed for muscle spasm, 02/08/20 9:24:00 EST, Route to Pharmacy Electronically, [facility] #00091, Partial fill upon patient request, 167... Start [...]
--- OUTSIDE RECORDS SUMMARY | 2023-09-12 11:38 | XMS_ITS | Continuity of Care Document ---
Author Organization [facility] Address [address] [place] [address]- Care Team Providers Care Supervisor Plastering Name Role Phone Cesario MEDICAL OFFICE CLERK, Lisseth Hancock Primary Care Physician Encounter [facility] [place] Date(s): 09/10/20 - 10/10/20 [facility] [address] [place] [address]- Allergies, Adverse Reactions, Alerts Substance Reaction Severity Status sulfADIAZINE rash Active morphine rash & swelling Active sertraline 1 QT wave change Active sulfa drugs rash Active Bactrim rash Active NSAIDs 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 Active 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 Refills 11, Maintenance, 11/24/17 13:49:05 EDT, Aerosol, Route to Pharmacy Electronically, [id number], [facility] [address], Compound Start Date: 11/24/17 Status: Ordered albuterol-ipratropium 3 mg-0.5 mg/3 ml inhalation solution 1 vials, Inhalation, 4 times a day, # 180 mL, 5 Refills, Maintenance, 07/30/19 11:02:00 EDT, [facility] #38985, 15, INHALE CONTENTS OF 1 VIAL VIA NEBULIZER FOUR TIMES DAILY, 167.64, cm, 04/24/19 16:16:00 EST, Height, 100.4, kg, 08/03/18 10:1... Start Date: 07/30/19 Status: Ordered amLODIPine 10 mg oral tablet 1 tablet, By Mouth, Daily, # 30 tablet, 5 Refills, Maintenance, 05/06/20 12:30:00 EST, [facility] #03662, 167.64, cm, 03/25/20 14:59:00 EST, Height, 100.4, kg, 08/03/18 10:14:00 EDT, Dry Weight Start Date: 05/06/20 Status: Ordered aspirin 81 mg oral delayed release tablet 81 mg, 1, tablet, By Mouth, Daily, # 30 tablet, Refills 5, Tot. Refills 5, Maintenance, 11/02/19 11:39:00 EDT, Route to Pharmacy Electronically, [facility] #74600, 167.64, cm, 11/02/19 10:58:00 EDT, Height, 100.4, kg, 08/03/18 10:14:00 EDT,... Start Date: 11/02/19 Status: Ordered bacitracin topical 500 u/gm ointment 1 application, Topically, 4 times a day, # 30 Gm, 0 Refills, Maintenance, 09/02/20 15:20:00 EDT, Ointment, [facility] #29715, Partial fill upon patient request if the prescription is for a schedule II opioid drug., 1 application Topically 4... Start Date: 09/02/20 Stop Date: 09/12/20 Status: Ordered baclofen 10 mg oral tablet 1, tablet, By Mouth, 3 times a day, # 60 tablet, Refills 0, Tot. Refills 0, Maintenance, 02/25/20 13:59:00 EST, Route to Pharmacy Electronically, [facility] #30066, 167.64, cm, 11/12/19 15:34:00 EDT, Height, 100.4, [...] tablet, 11 Refills, Maintenance, 01/11/20 10:43:00 EDT, [facility] #19996, 167.64, cm, 11/12/19 15:34:00 EDT, Height, 100.4, [...] Refills, Maintenance, [facility], 29, SPRAY TWICE IN EACH NOSTRIL FOUR [...] 5 Refills, Maintenance, 06/05/18 19:53:47 EDT, [place], 1 sprays Nares, Both 2 times a [...] 11 Refills, Maintenance, 03/02/19 10:19:00 EST, Capsule, [facility] #56073, 1 capsule By Mouth Daily, 167.64, cm, [...] 4 HOURS NEEDED FOR NAUSEA OR VOMITING, [facility] #45297 Start Date: 12/05/18 Status: Ordered raised toilet [...] Maintenance, 06/02/17 13:39:59, Route to Pharmacy Electronically, [id number], [facility] [address] Start Date: 06/02/17 Status: Ordered tiZANidine 2 mg oral tablet 2 mg, 1, tablet, By Mouth, Every 8 hours, PRN, # 90 tablet, Refills 3, Tot. Refills 3, Maintenance,as needed for muscle spasm, 02/08/20 9:24:00 EST, Route to Pharmacy Electronically, [facility] #50421, Partial fill upon patient request, 167... Start [...]
--- OUTSIDE RECORDS SUMMARY | 2023-09-12 11:38 | XMS_ITS | Continuity of Care Document ---
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 Immunizations Given and Recorded Vaccine Date Status [...] influenza virus vaccine, inactivated 1 12/24/09 Gi cecliia tetanus/diphtheria/pertussis, acel(Tdap) 05/29/13 Given Hepatitis B Vaccine (old term) 2 12/24/09 Given Hepatitis B Vaccine (old term) 10/19/04 Given 1Admin Note: VIS 10/21/09 2Admin Note: vis 09/28/2006 Medications albuterol 0.083% inhalation solution 3 mL = 2.5 mg, Inhalation, Every 6 hours, # 120 each, 5 Refills, Maintenance, 05/07/19 10:46:00 EST, Solution, [facility] #94265, 167.64, cm, 04/24/19 16:16:00 EST, Height, 100.4, kg, 08/03/18 10:14:00 EDT, Dry Weight Start Date: 05/07/19 Status: Ordered albuterol CFC free 90 mcg/inh inhalation aerosol 2, puffs, Inhalation, 4 times a day, PRN, # 25 Gm, Refills 11, Tot. Refills 11, Maintenance, 11/24/17 13:49:05 EDT, Aerosol, Route to Pharmacy Electronically, [id number], [facility] [address], Compound Start Date: 11/24/17 Status: Ordered albuterol-ipratropium 3 mg-0.5 mg/3 ml inhalation solution 1 vials, Inhalation, 4 times a day, # 180 mL, 5 Refills, Maintenance, 07/30/19 11:02:00 EDT, [facility] #07517, 15, INHALE CONTENTS OF 1 VIAL VIA NEBULIZER FOUR TIMES DAILY, 167.64, cm, 04/24/19 16:16:00 EST, Height, 100.4, kg, 08/03/18 10:1... Start Date: 07/30/19 Status: Ordered amlodipine-benazepril 5 mg-10 mg oral capsule 1 capsule, By Mouth, Daily, To replace prior prescription (amlodipine)., # 30 capsule, 11 Refills, Maintenance, 04/23/21 14:51:00 EST, Capsule, [facility] #63101, Partial fill upon patient request if the prescription is for a schedule II opi... Start Date: 04/23/21 Status: Ordered aspirin 81 mg oral delayed release tablet 81 mg, 1, tablet, By Mouth, Daily, # 30 tablet, Refills 5, Tot. Refills 5, Maintenance, 11/02/19 11:39:00 EDT, Route to Pharmacy Electronically, [facility] #22927, 167.64, cm, 11/02/19 10:58:00 EDT, Height, 100.4, kg, 08/03/18 10:14:00 EDT,... Start Date: 11/02/19 Status: Ordered bacitracin topical 500 u/gm ointment 1 application, Topically, 4 times a day, # 30 Gm, 0 Refills, Maintenance, 09/02/20 15:20:00 EDT, Ointment, [facility] #22211, Partial fill upon patient request if the prescription is for a schedule II opioid drug., 1 application Topically 4... Start Date: 09/02/20 Stop Date: 09/12/20 Status: Ordered baclofen 10 mg oral tablet 1, tablet, By Mouth, 3 times a day, # 60 tablet, Refills 0, Tot. Refills 0, Maintenance, 02/25/20 13:59:00 EST, Route to Pharmacy Electronically, [facility] #33574, 167.64, cm, 11/12/19 15:34:00 EDT, Height, 100.4, [...] tablet, 11 Refills, Maintenance, 01/11/20 10:43:00 EDT, [facility] #09888, 167.64, cm, 11/12/19 15:34:00 EDT, Height, 100.4, [...] DAILY, # 44 mL, 0 Refills, Maintenance, [facility], 29, SPRAY TWICE IN EACH NOSTRIL FOUR [...] 07/18/20 12:54:00 EDT, [facility] Start Date: 07/18/20 Stop Date: 07/13/21 Status: Ordered Flonase 50 mcg/inh nasal spray 1 sprays, Nares, Both, 2 times a day, # 1 each, 5 Refills, Maintenance, 06/05/18 19:53:47 EDT, [place], 1 sprays Nares, Both 2 times a [...] Acute 03/13/22 14:45:00 EST, 03/20/2213:45:00 EST, Ointment, [facility] #07452, Partial fill upon patient request if the [...] 11 Refills, Maintenance, 03/02/19 10:19:00 EST, Capsule, [facility] #69399, 1 capsule By Mouth Daily, 167.64, cm, [...] Vomiting, # 30 tablet, 4 Refills, Maintenance, 11/13/18 13:29:03 EST, Tablet Start Date: 01/24/18 Status: [...] 4 HOURS NEEDED FOR NAUSEA OR VOMITING, [facility] #47048 Start Date: 12/05/18 Status: Ordered raised toilet [...] Maintenance, 06/02/17 13:39:59, Route to Pharmacy Electronically, [id number], [facility] [address] Start Date: 06/02/17 Status: Ordered tiZANidine 2 mg oral tablet 2 mg, 1, tablet, By Mouth, Every 8 hours, PRN, # 90 tablet, Refills 3, Tot. Refills 3, Maintenance,as needed for muscle spasm, 01/30/21 8:11:00 EST, Route to Pharmacy Electronically, [facility] #[id number], Partial fill upon patient request, 167... Start [...]
--- OUTSIDE RECORDS SUMMARY | 2023-09-12 11:38 | XMS_ITS | Continuity of Care Document ---
Author Organization [facility] Address [address] [place] [address]- Care Team Providers Care Stud Sheep Farmer Name Role Phone Cesario VALDEZ, Lisseth Hancock Primary Care Physician [phone] Encounter [facility] [place] Date(s): 05/11/19 - 09/08/19 [facility] [address] [place] [address]- [facility] Attending Physician: Lyle Zhang MD Admitting Physician: Lyle Zhang MD Referring Physician: Lisseth Nassar NP. 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 Refills 11, Maintenance, 11/24/17 13:49:05 EDT, Aerosol, Route to Pharmacy Electronically, [id number], [facility] [address], Compound Start Date: 11/24/17 Status: Ordered albuterol-ipratropium 3 mg-0.5 mg/3 ml inhalation solution 1 vials, Inhalation, 4 times a day, # 180 mL, 5 Refills, Maintenance, 07/30/19 11:02:00 EDT, [facility] #37318, 15, INHALE CONTENTS OF 1 VIAL VIA NEBULIZER FOUR TIMES DAILY, 167.64, cm, 04/24/19 16:16:00 EST, Height, 100.4, kg, 08/03/18 10:1... Start Date: 07/30/19 Status: Ordered amLODIPine 10 mg oral tablet 1 tablet, By Mouth, Daily, # 30 tablet, 2 Refills, Maintenance, 06/15/19 9:43:00 EDT, [facility] #45545, 167.64, cm, 04/24/19 16:16:00 EST, Height, 100.4, kg, 08/03/18 10:14:00 EDT, Dry Weight Start Date: 06/15/19 Status: Ordered baclofen 10 mg oral tablet 1, tablet, By Mouth, 3 times a day, # 60 tablet, Refills 2, Tot. Refills 2, Maintenance, 06/14/19 9:10:00 EDT, Route to Pharmacy Electronically, [facility] #99064, 167.64, cm, 04/24/19 16:16:00 EST, Height, 100.4, [...] 5 Refills, Maintenance, 04/16/19 13:06:00 EST, Tablet, [facility] #80813, 167.64, cm, 03/02/19 10:23:00 EST, Height, 100.4, [...] 0 Refills, Maintenance, [facility] #40805, 29, SPRAY TWICE IN EACH NOSTRIL FOUR [...] each, 5 Refills, Maintenance, 06/05/18 19:53:47 EDT, [place], 1 sprays Nares, Both 2 times a [...] 11 Refills, Maintenance, 03/02/19 10:19:00 EST, Capsule, [facility] #43169, 1 capsule By Mouth Daily, 167.64, cm, [...] 4 HOURS NEEDED FOR NAUSEA OR VOMITING, [facility] #67925 Start Date: 12/05/18 Status: Ordered raised toilet [...] Maintenance, 06/02/17 13:39:59, Route to Pharmacy Electronically, [id number], [facility] [address] Start Date: 06/02/17 Status: Ordered Transfer Bench [...]
--- OUTSIDE RECORDS SUMMARY | 2023-09-12 11:38 | XMS_ITS | Continuity of Care Document ---
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 Start Date: 01/26/23 Status: Ordered albuterol CFC free 90 mcg/inh inhalation aerosol 2, puffs, Inhalation, 4 times a day, PRN, Dispense brand as required by insurance, # 1 each, Refills 11, Tot. Refills 11, Maintenance, 01/26/23 14:00:00 EST, Aerosol, Route to Pharmacy Electronically, [id number], [facility]. Start Date: 01/26/23 Status: Ordered albuterol-ipratropium 3 mg-0.5 mg/3 ml inhalation solution 1 vials, Inhalation, 4 times a day, # 180 mL, 11 Refills, Maintenance, 01/27/23 9:25:00 EST, [facility] #[id number], 15, 1 vials Inhalation 4 times a [...] tablet, 6 Refills, Maintenance, 12/07/22 16:46:00 EDT, [facility] #[id number], 165, cm, 12/06/22 17:39:00 EDT, Height, 88.2, kg, 05/26/22 7:52:00EDT, Dry Weight Start Date: 12/07/22 Status: Ordered amlodipine-benazepril 5 mg-10 mg oral capsule 1 capsule, By Mouth, Daily, To replace prior prescription (amlodipine)., # 90 capsule, 11 Refills, Maintenance, 03/01/22 16:04:00 EST, Capsule, [facility] #[id number], Partial fill upon patient request if the [...] tablet, 3 Refills, Maintenance, 01/26/23 14:00:00 EST, [facility] #[id number], 165, cm, 01/26/23 13:31:00 EST, Height, 88.2, [...] each, 11 Refills, Maintenance, 09/25/21 11:17:00 EDT, [place], [facility] #30543, 1 sprays Nares, Both 2 times a day,x30 days, 165, cm, 09/25/21 11:04:00 EDT, Height, 96, kg, 07/13/21 10:52:00 EDT, Dry... Start Date: 09/25/21 Stop Date: 09/20/22 Status: Ordered fluconazole 150 mg oral tablet 1 tablet = 150 mg, By Mouth, Once, Repeat dose if still having symptoms in 72 hours, # 2 tablet, 1 Refills, Soft Stop, 01/26/23 14:19:00 EST, Tablet, [facility] #[id number], Partial fill upon patient request if the [...] 11 Refills, Maintenance, 01/26/23 14:04:00 EST, Aerosol, [facility] #[id number], Partial fill upon patient request if the prescription is for a s... Start Date: 01/26/23 Status: Ordered mupirocin 2% topical ointment 1 application, Topically, 3 times a day, # 30 Gm, 2 Refills, Acute 03/13/23 15:24:00 EST, 09/01/22 15:23:00 EDT, Ointment, [facility] #58012, Partial fill upon patient request if the [...] capsule, 4 Refills, Maintenance, 01/26/23 14:02:00 EST, [facility] #[id number], 165, cm, 01/26/23 13:31:00 EST, Height, 88.2, [...] 01/26/23 14:02:00 EST, Route to Pharmacy Electronically, [facility] #[id number], 165, cm, 01/26/23 13:31:00 EST, Height, 88.2, [...] Associate Professional Member Role: PCP Address: Address: [address] [place] [address]- Name: Edenilson Puckett MD Position: [facility] MIRROR POLISHER MD Member Role: Lifetime MIRROR POLISHER Physician Address: Address: [address] [place] [address]- Name: Jovana Park RN Position: [facility] SN RN Member Role: Primary Care Nurse Name: Chidi Clark DO Position: [facility] Renal MD Member Role: Lifetime Consulting Physician Address: Address: [address] [place] [address] [address] [facility] [place] [address]- Name: Mireya Torres RN Position: S RN Member Role: Primary Care Nurse Name: Starr Harper RN Position: [facility] SN RN Member Role: Primary Care Nurse Name: Kelly Maddox RN Position: S RN Member Role: Primary Care Nurse Care Team Related Persons Name: MARYA ADRIAN Address: home [address] [place] [address] Name: MORALES HOWELL Address: home [address] [place] [address]
--- OUTSIDE RECORDS SUMMARY | 2023-09-12 11:38 | XMS_ITS | Continuity of Care Document ---
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 Start Date: 10/19/21 Status: Ordered albuterol-ipratropium 3 mg-0.5 mg/3 ml inhalation solution 1 vials, Inhalation, 4 times a day, # 180 mL, 5 Refills, Maintenance, 07/30/19 11:02:00 EDT, [facility] #65703, 15, INHALE CONTENTS OF 1 VIAL VIA [...] 11 Refills, Maintenance, 04/23/21 14:51:00 EST, Capsule, [facility] #61997, Partial fill upon patient request if the prescription is for a schedule II opi... Start Date: 04/23/21 Status: Ordered aspirin 81 mg oral delayed release tablet 81 mg, 1, tablet, By Mouth, Daily, # 30 tablet, Refills 5, Tot. Refills 5, Maintenance, 11/02/19 11:39:00 EDT, Route to Pharmacy Electronically, [facility] #[id number], 167.64, cm, 11/02/19 10:58:00 EDT, Height, 100.4, [...] tablet, 11 Refills, Maintenance, 09/25/21 11:17:00 EDT, [facility] #96052, 165, cm, 09/25/21 11:04:00 EDT, Height, 96, [...] each, 11 Refills, Maintenance, 09/25/21 11:17:00 EDT, [place], [facility] #15821, 1 sprays Nares, Both 2 times a [...] Acute 03/13/22 14:45:00 EST, 03/20/2213:45:00 EST, Ointment, [facility] #[id number], Partial fill upon patient request if the [...] 11 Refills, Maintenance, 03/02/19 10:19:00 EST, Capsule, [facility] #80568, 1 capsule By Mouth Daily, 167.64, cm, [...] back pain; may fill less; may fill on/after11/10/2021; 21d supply, # 126 tablet, 0 Refills, Maintenance, 11/09/21 14:10:00 EDT,... Start Date: 11/09/21 Status: Ordered Paxlovid 150 mg-100 mg oral tablet See Instructions, 300mg nirmatrelvir (two 150mg tablets) with 100mg ritonavir (one tablet). All 3 tablets taken together twice daily By Mouth for 5 days, with or without food, # 30 tablet, 0 Refills,Maintenance, 10/18/21 16:41:00 EDT, [facility] Start Date: 10/18/21 Status: Ordered Prevacid [...] 09/25/21 11:17:00 EDT, Route to Pharmacy Electronically, [facility] #[id number], 165, cm, 09/25/2210:04:00 EDT, Height, 96, kg, 07/13/21 10:52:00 EDT... Start Date: 09/25/21 Status: Ordered tiZANidine 2 mg oral tablet 2 mg, 1, tablet, By Mouth, Every 8 hours, PRN, # 90 tablet, Refills 3, Tot. Refills 3, Maintenance,as needed for muscle spasm, 06/18/21 10:33:00 EDT, Route to Pharmacy Electronically, [facility] #01563, Partial fill upon patient request, 16... Start [...] knee(Confirmed) Active Controlled substance agreeme nt signed 2/10/22(Confirmed) Active Palpitation(Confirmed) Active COVID-19 virus detected(Confirmed) Active COVID-19 virus detected(Confirmed) 2 Active Allergic sinusitis(Confirmed) 3 Active Spinal stenosis(Confirmed) Active 1began in 3rd [facility] 10/21/2020 3allergy testing showed dust mites, mold, cats, dogs, maple, oak; starting immunotherapy 07/2015 Social History Social History Type Response Tobacco Use: MARIJUANA. Sex Female Care Team Personnel Name: Cesario VALDEZ, Lisseth Hancock Address: [address] [place] [address]
--- OUTSIDE RECORDS SUMMARY | 2023-09-12 11:38 | XMS_ITS | Continuity of Care Document ---
Author Organization [facility] Address [address] [place] [address]- Care Team Providers Care Telesales Representative Name Role Phone Cesario VALDEZ, Lisseth Terrell Primary Care Physician [phone] Encounter [facility] Date(s): 03/02/19 - 03/12/[address] [address]- [facility] Attending Physician: Admtr, Ar8 Allergies, Adverse Reactions, Alerts Substance Reaction Severity Status sulfADIAZINE rash Active morphine rash & swelling Active sertraline 1 QT wave change Active sulfa drugs rash Active Bactrim rash Active NSAIDs 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 Active 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 Refills 2, Maintenance, 09/11/18 16:10:46 EDT, Route to Pharmacy Electronically, [id number], [facility] [address] Start Date: 09/11/18 Status: Ordered Bedside Commode [...] each, 5 Refills, Maintenance, 06/05/18 19:53:47 EDT, [place], 1 sprays Nares, Both 2 times a [...] 11 Refills, Maintenance, 03/02/19 10:19:00 EST, Capsule, [facility] #75819, 1 capsule By Mouth Daily, 167.64, cm, [...] 4 HOURS NEEDED FOR NAUSEA OR VOMITING, [facility] #[id number] Start Date: 12/05/18 Status: Ordered raised toilet [...] Maintenance, 06/02/17 13:39:59, Route to Pharmacy Electronically, [id number], [facility] [address] Start Date: 06/02/17 Status: Ordered Transfer Bench [...]
--- OUTSIDE RECORDS SUMMARY | 2023-09-12 11:38 | XMS_ITS | Continuity of Care Document ---
Author Organization [facility] Address [address] [place] [address]- Care Team Providers Care Efficiency Miner Blasting Name Role Phone Cesario VALDEZ, Lisseth Hancock Primary Care Physician [phone] Encounter [facility] Date(s): 07/01/23 - 07/31/23 [facility] [address] [place] [address]- Attending Physician: Janette Connelly Admitting Physician: Janette Connelly Referring Physician: AdmtrJanette Allergies, Adverse Reactions, Alerts Substance Reaction Severity Status sulfADIAZINE rash Active sertraline 1 QT wave change Active fentanyl topical passed out Active sulfa drugs rash Active Haldol Agitation Active Bactrim rash Active NSAIDs 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 Active 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 Start Date: 01/26/23 Status: Ordered albuterol CFC free 90 mcg/inh inhalation aerosol 2, puffs, Inhalation, 4 times a day, PRN, Dispense brand as required by insurance, # 1 each, Refills 11, Tot. Refills 11, Maintenance, 01/26/23 14:00:00 EST, Aerosol, Route to Pharmacy Electronically, [id number], [facility]. Start Date: 01/26/23 Status: Ordered albuterol-ipratropium 3 mg-0.5 mg/3 ml inhalation solution 1 vials, Inhalation, 4 times a day, # 180 mL, 11 Refills, Maintenance, 01/27/23 9:25:00 EST, [facility] #84884, 15, 1 vials Inhalation 4 times a [...] tablet, 6 Refills, Maintenance, 05/30/23 14:38:00 EDT, [facility] #03062, 165, cm, 05/30/23 14:22:00 EDT, Height, 88.2, kg, 05/26/22 7:52:00EDT, Dry Weight Start Date: 05/30/23 Stop Date: 02/18/25 Status: Ordered amlodipine-benazepril 5 mg-10 mg oral capsule 1 capsule, By Mouth, Daily, TO. REPLACE BEFORE PRESCRIPTION AMLODIPINE, # 90 capsule, 3 Refills, Maintenance, 05/30/23 14:38:00 EDT, [facility] #52353, 90, 1 capsule By Mouth Daily,Instr:TO. REPLACE [...] tablet, 3 Refills, Maintenance, 01/26/23 14:00:00 EST, [facility] #29798, 165, cm, 01/26/23 13:31:00 EST, Height, 88.2, kg, 05/26/22 7:52:00 EDT, Dry Weight Start Date: 01/26/23 Stop Date: 01/21/24 Status: Ordered clonazePAM 2 mg oral tablet 0.5 tablet = 1 mg, By Mouth, 3 times a day, please note dosage strength, # 45 tablet, 1 Refills, Maintenance, 07/04/23 11:11:00 EDT, Tablet, [facility] #98359, Partial fill upon patient request if the [...] each, 11 Refills, Maintenance, 09/25/21 11:17:00 EDT, [place], [facility] #71019, 1 sprays Nares, Both 2 times a day,x30 days, 165, cm, 09/25/21 11:04:00 EDT, Height, 96, kg, 07/13/21 10:52:00 EDT, Dry... Start Date: 09/25/21 Stop Date: 09/20/22 Status: Ordered fluconazole 150 mg oral tablet 1 tablet = 150 mg, By Mouth, Once, Repeat dose if still having symptoms in 72 hours, # 2 tablet, 1 Refills, Soft Stop, 04/27/23 14:34:00 EST, [facility] #64223, Partial fill upon patient request if the prescription is for a schedule... Start Date: 04/27/23 Status: Ordered fluticasone 250 mcg/inh inhalation powder 1 puffs, Inhalation, 2 times a day, dispense brand as required by insurance, # 120 each, 11 Refills, Maintenance, 04/29/23 9:44:00 EST, Powder, [facility] #37465, Partial fill upon patient request if the [...] capsule, 4 Refills, Maintenance, 01/26/23 14:02:00 EST, [facility] #85702, 165, cm, 01/26/23 13:31:00 EST, Height, 88.2, [...] 01/26/23 14:02:00 EST, Route to Pharmacy Electronically, [facility] #[id number], 165, cm, 01/26/23 13:31:00 EST, Height, 88.2, [...] History Type Response Tobacco Other: WEED. Sex Cardiology * Event Display: Cardiology Office Note, Non- Authored Date: * Event Display: Cardiology Office Note, Non- Authored Date: Radiology * Event Display: [place] Nuclear Medicine, Non- Authored Date: Patient Care team information Care Team Personnel Name: Tristin Hunt RN Position: [facility] RN Member Role: Primary Care Nurse Name: Lisseth Nassar NP Position: [facility] PCO Associate Professional Member Role: PCP Address: Address: [address] [place] [address]- [place] Name: Edenilson Puckett MD Position: [facility] CHIMNEY SUPERVISOR BRICK MD Member Role: Lifetime CHIMNEY SUPERVISOR BRICK Physician Address: Address: [address] [place] [address]- [place] Name: Jovana Park RN Position: [facility] SN RN Member Role: Primary Care Nurse Name: Chidi Clark DO Position: [facility] Renal MD Member Role: Lifetime Consulting Physician Address: Address: [address] [facility] [place] [address]- Name: Mireya Torres RN Position: [facility] RN Member Role: Primary Care Nurse Name: Starr Harper RN Position: [facility] CLEMENTE Nurse Member Role: Primary Care Nurse Name: Kelly Maddox RN Position: [facility] RN Member Role: Primary Care Nurse Care Team Related Persons Name: KAYLAH MARYA Address: home [address] [place] [address] Name: MORALES HOWELL Address: [address] [place] [address]
--- OUTSIDE RECORDS SUMMARY | 2023-09-12 11:38 | XMS_ITS | Continuity of Care Document ---
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 Start Date: 01/26/23 Status: Ordered albuterol CFC free 90 mcg/inh inhalation aerosol 2, puffs, Inhalation, 4 times a day, PRN, Dispense brand as required by insurance, # 1 each, Refills 11, Tot. Refills 11, Maintenance, 01/26/23 14:00:00 EST, Aerosol, Route to Pharmacy Electronically, [id number], [facility]. Start Date: 01/26/23 Status: Ordered albuterol-ipratropium 3 mg-0.5 mg/3 ml inhalation solution 1 vials, Inhalation, 4 times a day, # 180 mL, 11 Refills, Maintenance, 01/27/23 9:25:00 EST, [facility] #99257, 15, 1 vials Inhalation 4 times a [...] tablet, 6 Refills, Maintenance, 12/07/22 16:46:00 EDT, [email or web address] #23164, 165, cm, 12/06/22 17:39:00 EDT, Height, 88.2, kg, 05/26/22 7:52:00EDT, Dry Weight Start Date: 12/07/22 Status: Ordered amlodipine-benazepril 5 mg-10 mg oral capsule 1 capsule, By Mouth, Daily, TO. REPLACE BEFORE PRESCRIPTION AMLODIPINE, # 90 capsule, 0 Refills, Maintenance, 04/05/23 10:10:00 EST, [email or web address] #[id number], 90, TAKE 1 CAPSULE BY MOUTH DAILY [...] tablet, 3 Refills, Maintenance, 01/26/23 14:00:00 EST, [email or web address] #24576, 165, cm, 11/15/23 13:31:00 EST, Height, 88.2, kg, 05/26/22 7:52:00 EDT, Dry Weight Start Date: 01/26/23 Stop Date: 01/21/24 Status: Ordered clonazePAM 1 mg oral tablet 1 tablet = 1 mg, By Mouth, 3 times a day, To use sparingly; to fill on/after 04/03/2023, # 90 tablet, 1 Refills, Maintenance, 03/29/23 12:46:00 EST, Tablet, [facility] #11256, Partial fill upon patient request if the [...] each, 11 Refills, Maintenance, 09/25/21 11:17:00 EDT, [place], [email or web address] #40710, 1 sprays Nares, Both 2 times a day,x30 days, 165, cm, 09/25/21 11:04:00 EDT, Height, 96, kg, 07/13/21 10:52:00 EDT, Dry... Start Date: 09/25/21 Stop Date: 09/20/22 Status: Ordered fluconazole 150 mg oral tablet 1 tablet = 150 mg, By Mouth, Once, Repeat dose if still having symptoms in 72 hours, # 2 tablet, 1 Refills, Soft Stop, 04/27/23 14:34:00 EST, Tablet, [facility] #65105, Partial fill upon patient request if the prescription is for a schedule... Start Date: 04/27/23 Status: Ordered fluticasone 250 mcg/inh inhalation powder 1 puffs, Inhalation, 2 times a day, dispense brand as required by insurance, # 120 each, 11 Refills, Maintenance, 04/29/23 9:44:00 EST, Powder, [facility] #11490, Partial fill upon patient request if the [...] capsule, 4 Refills, Maintenance, 01/26/23 14:02:00 EST, [email or web address] #37125, 165, cm, 01/26/23 13:31:00 EST, Height, 88.2, [...] 01/26/23 14:02:00 EST, Route to Pharmacy Electronically, [email or web address] #06255, 165, cm, 01/26/23 13:31:00 EST, Height, 88.2, [...] Care Nurse Name: Lisseth Nassar NP Position: [facility] PCO Associate Professional Member Role: PCP Address: Address: [address] [place] [address]- Name: Edenilson Puckett MD Position: [facility] WAREHOUSE DISTRIBUTION SPECIALIST MD Member Role: Lifetime WAREHOUSE DISTRIBUTION SPECIALIST Physician Address: Address: [address] [place] [address]- Name: Jovana Park RN Position: [facility] SN RN Member Role: Primary Care Nurse Name: Chidi Clark DO Position: [facility] Renal MD Member Role: Lifetime Consulting Physician Address: Address: [address] [place], [place] [address] [place] [address]- Name: Mireya Torres RN Position: S RN Member Role: Primary Care Nurse Name: Starr Harper RN Position: [facility] SN RN Member Role: Primary Care Nurse Name: Kelly Maddox RN Position: S RN Member Role: Primary Care Nurse Care Team Related Persons Name: KAYLAH MARYA Address: [address] [place] [address] Name: MORALES HOWELL Address: home [address] [place] [address]
--- OUTSIDE RECORDS SUMMARY | 2023-09-12 11:38 | XMS_ITS | Continuity of Care Document ---
Author Organization 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 Start Date: 05/12/22 Status: Ordered albuterol CFC free 90 mcg/inh inhalation aerosol 2, puffs, Inhalation, 4 times a day, PRN, Dispense brand as required by insurance, # 18 Gm, [id number], Tot. Refills 11, Maintenance, 05/12/22 11:38:00 EST, Aerosol, Route to Pharmacy Electronically, [id number], [facility]... Start Date: 05/12/22 Status: Ordered albuterol-ipratropium 3 mg-0.5 mg/3 ml inhalation solution 1 vials, Inhalation, 4 times a day, # 180 mL, 11 Refills, Maintenance, 05/12/22 11:38:00 EST, [facility] #[id number], 15, 1 vials Inhalation 4 times a [...] 11 Refills, Maintenance, 03/01/22 16:04:00 EST, Capsule, [facility] #[id number], Partial fill upon patient request if the prescription is for a schedule II opi... Start Date: 03/01/22 Stop Date: 02/13/25 Status: Ordered apixaban 2.5 mg oral tablet 1 tablet = 2.5 mg, By Mouth, 2 times a day, # 60 tablet, 0 Refills, Maintenance, 05/28/22 8:20:00 EDT, Tablet, [facility] 3, Partial fill upon patient [...] tablet, 11 Refills, Maintenance, 09/25/21 11:17:00 EDT, [facility] #[id number], 165, cm, 09/25/21 11:04:00 EDT, Height, 96, [...] each, 11 Refills, Maintenance, 09/25/21 11:17:00 EDT, [place] #[id number], 1 sprays Nares, Both 2 times a day,x30 days, 165, cm, 09/25/21 11:04:00 EDT, Height, 96, kg, 07/13/21 10:52:00 EDT, Dry... Start Date: 09/25/21 Stop Date: 09/20/22 Status: Ordered Flovent HFA 220 mcg/inh inhalation aerosol 2 puffs, Inhalation, 2 times a day, # 12 Gm, 11 Refills, Maintenance, 05/19/22 13:39:00 EST, Aerosol, [facility] #[id number], Partial fill upon patient request if the [...] 05/12/22 11:38:00 EST, Route to Pharmacy Electronically, [facility] #[id number], 168, cm, 05/12/2310:30:00 EST, Height, 85, kg, [...] History of LSIL 01/02/14 and ASCUS HPV+ 12/13/11, otherwise all paps normal. Last pap smear [...] Associate Professional Member Role: PCP Address: Address: [address] [place] [id number]- Name: Edenilson Puckett MD Position: [facility] BELT DRESSER MD Member Role: Lifetime BELT DRESSER Physician Address: Address: [address] [place], [place] [address] [place] [address]- Name: Jovana Park RN Position: [facility] RN Member Role: Primary Care Nurse Name: Chidi Clark DO Position: [facility] Renal MD Member Role: Lifetime Consulting Physician Address: Address: [address] [place], [place] [address] [place] [address]- [place] Name: Mireya Torres RN Position: S RN Member Role: Primary Care Nurse Name: Kelly Maddox RN Position: S RN Member Role: Primary Care Nurse Care Team Related Persons Name: KAYLAH MARYA Address: home [address] [place] [address] Name: MORALES HOWELL Address: home [address] [place] [address]
--- OUTSIDE RECORDS SUMMARY | 2023-09-12 11:38 | XMS_ITS | Continuity of Care Document ---
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 Start Date: 10/19/21 Status: Ordered albuterol-ipratropium 3 mg-0.5 mg/3 ml inhalation solution 1 vials, Inhalation, 4 times a day, # 180 mL, 5 Refills, Maintenance, 07/30/19 11:02:00 EDT, [facility] #[id number], 15, INHALE CONTENTS OF 1 VIAL VIA [...] 11 Refills, Maintenance, 04/23/21 14:51:00 EST, Capsule, [facility] #[id number], Partial fill upon patient request if the prescription is for a schedule II opi... Start Date: 04/23/21 Status: Ordered aspirin 81 mg oral delayed release tablet 81 mg, 1, tablet, By Mouth, Daily, # 30 tablet, Refills 5, Tot. Refills 5, Maintenance, 11/02/19 11:39:00 EDT, Route to Pharmacy Electronically, [facility] #[id number], 167.64, cm, 11/02/19 10:58:00 EDT, Height, 100.4, [...] tablet, 11 Refills, Maintenance, 09/25/21 11:17:00 EDT, [facility] #[id number], 165, cm, 09/25/21 11:04:00 EDT, Height, 96, [...] each, 11 Refills, Maintenance, 09/25/21 11:17:00 EDT, [place], [facility] #[id number], 1 sprays Nares, Both 2 times a [...] Acute 03/13/22 14:45:00 EST, 03/20/2213:45:00 EST, Ointment, [facility] #[id number], Partial fill upon patient request if the [...] 11 Refills, Maintenance, 03/02/19 10:19:00 EST, Capsule, [facility] #[id number], 1 capsule By Mouth Daily, 167.64, cm, [...] 30 tablet, 0 Refills,Maintenance, 10/18/21 16:41:00 EDT[facility] Start Date: 10/18/21 Status: Ordered Prevacid [...] 09/25/21 11:17:00 EDT, Route to Pharmacy Electronically, [facility] #[id number], 165, cm, 09/25/2210:04:00 EDT, Height, 96, kg, 07/13/21 10:52:00 EDT... Start Date: 09/25/21 Status: Ordered tiZANidine 2 mg oral tablet 2 mg, 1, tablet, By Mouth, Every 8 hours, PRN, # 90 tablet, Refills 3, Tot. Refills 3, Maintenance,as needed for muscle spasm, 06/18/21 10:33:00 EDT, Route to Pharmacy Electronically, [facility] #[id number], Partial fill upon patient request, 16... Start [...] MARIJUANA. Sex Female Care Team Personnel Name: Lisseth Nassar NP Address: [address] [place] [address]
--- OUTSIDE RECORDS SUMMARY | 2023-09-12 11:39 | XMS_ITS | Continuity of Care Document ---
Author Organization [facility] Address [address] [place] [address]- Care Team Providers Care Energy Crop Farmer Name Role Phone Cesario VALDEZ, Lisseth Hancock Primary Care Physician [phone] Encounter [facility] Date(s): 11/09/21 - 12/09/21 [facility] [address] [place] [address]- [place] Allergies, Adverse Reactions, Alerts Substance Reaction Severity Status sulfADIAZINE rash Active sertraline 1 QT wave change Active fentanyl topical passed out Active sulfa drugs rash Active Bactrim rash Active NSAIDs 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 Start Date: 10/19/21 Status: Ordered albuterol-ipratropium 3 mg-0.5 mg/3 ml inhalation solution 1 vials, Inhalation, 4 times a day, # 180 mL, 5 Refills, Maintenance, 07/30/19 11:02:00 EDT, [facility] #[id number], 15, INHALE CONTENTS OF 1 VIAL VIA [...] tablet, 11 Refills, Maintenance, 12/07/21 8:02:00 EDT, [facility] #[id number], 165, cm, 10/27/21 1:44:00 EDT, Height, 90.9, kg, 10/27/21 1:44:00 EDT, Dry Weight Start Date: 12/07/21 Status: Ordered amlodipine-benazepril 5 mg-10 mg oral capsule 1 capsule, By Mouth, Daily, To replace prior prescription (amlodipine)., # 30 capsule, 11 Refills, Maintenance, 04/23/21 14:51:00 EST, Capsule, [facility] #[id number], Partial fill upon patient request if the prescription is for a schedule II opi... Start Date: 04/23/21 Status: Ordered aspirin 81 mg oral delayed release tablet 81 mg, 1, tablet, By Mouth, Daily, # 30 tablet, Refills 5, Tot. Refills 5, Maintenance, 11/02/19 11:39:00 EDT, Route to Pharmacy Electronically, [facility] #[id number], 167.64, cm, 11/02/19 10:58:00 EDT, Height, 100.4, [...] tablet, 11 Refills, Maintenance, 09/25/21 11:17:00 EDT, [facility] #[id number], 165, cm, 09/25/21 11:04:00 EDT, Height, 96, [...] each, 11 Refills, Maintenance, 09/25/21 11:17:00 EDT, [place], [facility] #[id number], 1 sprays Nares, Both 2 times a [...] Acute 03/13/22 14:45:00 EST, 03/20/2213:45:00 EST, Ointment, [facility] #[id number], Partial fill upon patient request if the [...] 11 Refills, Maintenance, 03/02/19 10:19:00 EST, Capsule, [facility] #[id number], 1 capsule By Mouth Daily, 167.64, cm, [...] tablets, # 4 tablet, 0 Refills, Acute 12/31/2... Start Date: 09/23/21 Stop Date: 03/13/22 Status: [...] back pain; may fill less; may fill on/after11/30/2021; max 6/day, # 126 tablet, 0 Refills, Maintenance, 11/30/21 16:09:00 EDT, T... Start Date: 11/30/21 Status: Ordered Paxlovid 150 mg-100 mg oral tablet See Instructions, 300mg nirmatrelvir (two 150mg tablets) with 100mg ritonavir (one tablet). All 3 tablets taken together twice daily By Mouth for 5 days, with or without food, # 30 tablet, 0 Refills,Maintenance, 10/18/21 16:41:00 EDT, [email or web address]... Start Date: 10/18/21 Status: Ordered Prevacid [...] 09/25/21 11:17:00 EDT, Route to Pharmacy Electronically, [email or web address] #[id number], 165, cm, 09/25/2210:04:00 EDT, Height, 96, kg, 07/13/21 10:52:00 EDT... Start Date: 09/25/21 Status: Ordered tiZANidine 2 mg oral tablet 2 mg, 1, tablet, By Mouth, Every 8 hours, PRN, # 90 tablet, Refills 3, Tot. Refills 3, Maintenance,as needed for muscle spasm, 06/18/21 10:33:00 EDT, Route to Pharmacy Electronically, [email or web address][id number], Partial fill upon patient request, 16... Start [...] MARIJUANA. Sex Female Patient Care team information Personnel Name: Cesario VALDEZ, Lisseth Hancock Address: Address: [address] [place] [address]
--- OUTSIDE RECORDS SUMMARY | 2023-09-12 11:39 | XMS_ITS | Continuity of Care Document ---
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 Start Date: 05/12/22 Status: Ordered albuterol CFC free 90 mcg/inh inhalation aerosol 2, puffs, Inhalation, 4 times a day, PRN, Dispense brand as required by insurance, # 18 Gm, [id number], Tot. Refills 11, Maintenance, 05/12/22 11:38:00 EST, Aerosol, Route to Pharmacy Electronically, [id number], [facility]... Start Date: 05/12/22 Status: Ordered albuterol-ipratropium 3 mg-0.5 mg/3 ml inhalation solution 1 vials, Inhalation, 4 times a day, # 180 mL, 11 Refills, Maintenance, 05/12/22 11:38:00 EST, [facility] #[id number], 15, 1 vials Inhalation 4 times a [...] 11 Refills, Maintenance, 03/01/22 16:04:00 EST, Capsule, [facility] #[id number], Partial fill upon patient request if the prescription is for a schedule II opi... Start Date: 03/01/22 Stop Date: 02/13/25 Status: Ordered apixaban 2.5 mg oral tablet 1 tablet = 2.5 mg, By Mouth, 2 times a day, # 60 tablet, 0 Refills, Maintenance, 05/28/22 8:20:00 EDT, Tablet, [facility] 3, Partial fill upon patient request if [...] tablet, 11 Refills, Maintenance, 09/25/21 11:17:00 EDT, [facility] #[id number], 165, cm, 09/25/21 11:04:00 EDT, Height, 96, [...] each, 11 Refills, Maintenance, 09/25/21 11:17:00 EDT, [place], [facility] #[id number], 1 sprays Nares, Both 2 times a day,x30 days, 165, cm, 09/25/21 11:04:00 EDT, Height, 96, kg, 07/13/21 10:52:00 EDT, Dry... Start Date: 09/25/21 Stop Date: 09/20/22 Status: Ordered Flovent HFA 220 mcg/inh inhalation aerosol 2 puffs, Inhalation, 2 times a day, # 12 Gm, 11 Refills, Maintenance, 05/19/22 13:39:00 EST, Aerosol, [facility] #[id number], Partial fill upon patient request if the [...] 15:23:00 EDT, Ointment, [facility] #[id number], Partial fill upon patient request if the [...] 05/12/22 11:38:00 EST, [id number], 168, cm, 05/12/2310:30:00 EST, Height, 85, kg, [...] Team Personnel Name: Tristin Hunt RN Position: [facility] RN Member Role: Primary Care Nurse Name: Lisseth Nassar NP Position: [facility] PCO Associate Professional Member Role: PCP Address: Address: [address] [place] [address]- [place] Name: Edenilson Puckett MD Position: [facility] GEOLOGICAL SAMPLE TESTER MD Member Role: Lifetime GEOLOGICAL SAMPLE TESTER Physician Address: Address: [address] [place] [id number]- [place] Name: Jovana Park RN Position: [facility] RN Member Role: Primary Care Nurse Name: Chidi Clark DO Position: [facility] Renal MD Member Role: Lifetime Consulting Physician Address: Address: [address] [place] [address] [address] [facility] [place] [address]- [place] Name: Mireya Torres RN Position: [facility] RN Member Role: Primary Care Nurse Name: Kelly Maddox RN Position: [facility] RN Member Role: Primary Care Nurse Care Team Related Persons Name: MARYA ADRIAN Address: home [address] [place] [address] Name: MORALES HOWELL Address: home [address] [place] [address]
--- OUTSIDE RECORDS SUMMARY | 2023-09-12 11:39 | XMS_ITS | Continuity of Care Document ---
Author Organization [facility] ter Address [address] [place] [id number]- Care Team Providers Care Banquet Food Server Name Role Phone Cesario VALDEZ, Lisseth Hancock Primary Care Physician [place] [facility] [place](s): 05/27/22 - 05/30/[address] [address] Discharge Disposition: A-Transfer VNA/Home Health Attending Physician: Kenneth Vernon MD Admitting Physician: Kenneth Vernon MD Referring Physician: Kenneth Vernon MD Allergies, Adverse Reactions, Alerts Substance Reaction Severity Status sulfADIAZINE rash Active sertraline 1 QT wave change Active fentanyl topical passed out Active sulfa drugs rash Active Haldol Agitation Active Bactrim rash Active NSAIDs 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 Active 1 changed my QT interval has a hide or skin buffer Immunizations Given and Recorded Vaccine Date Status [...] 07/13/20 Recorded SARS-CoV-2 (COVID-19) mRNA BNT-162b2 vac 4/10/21 Recorded tetanus/diphtheria/pertussis, acel(Tdap) 05/29/13 Given Hepatitis B [...] opioid drug. Start Date: 05/28/22 Status: Ordered Acetaminophen Tablet 975 mg, Tablet, By Mouth, 05/30/22 9:00:00 EDT Start Date: 05/30/22 Stop Date: 05/30/22 Status: Completed albuterol 0.083% inhalation solution 3 mL = 2.5 mg, Inhalation, Every 6 hours, PRN Wheezing/Shortness of Breath, # 100 each, 11 Refills,Maintenance, 05/12/22 11:38:00 EST, Solution, [facility] #[id number], 168, cm, 05/12/22 11:30:00 EST, Height, 85, kg, 05/10/22 9:23:00 EST, Dry We... Start Date: 05/12/22 Status: Ordered albuterol CFC free 90 mcg/inh inhalation aerosol 2, puffs, Inhalation, 4 times a day, PRN, Dispense brand as required by insurance, # 18 Gm, [id number], Tot. Refills 11, Maintenance, 05/12/22 11:38:00 EST, Aerosol, Route to Pharmacy Electronically, [id number], [facility]... Start Date: 05/12/22 Status: Ordered albuterol-ipratropium 3 mg-0.5 mg/3 ml inhalation solution 1 vials, Inhalation, 4 times a day, # 180 mL, 11 Refills, Maintenance, 05/12/22 11:38:00 EST, [facility] #[id number], 15, 1 vials Inhalation 4 times a [...] opioid drug. Start Date: 05/28/22 Status: Ordered AmLODipine Tablet 5 mg, Tablet, By Mouth, Hold for: SBP less than 130, 05/30/22 9:00:00 EDT Start Date: 05/30/22 Stop Date: 05/30/22 Status: Completed amlodipine-benazepril 5 mg-10 mg oral capsule 1 capsule, By Mouth, Daily, To replace prior prescription (amlodipine)., # 90 capsule, 11 Refills, Maintenance, 03/01/22 16:04:00 EST, Capsule, [facility] #[id number], Partial fill upon patient request if the prescription is for a schedule II opi... Start Date: 03/01/22 Stop Date: 02/13/25 Status: Ordered apixaban 2.5 mg oral tablet 1 tablet = 2.5 mg, By Mouth, 2 times a day, # 60 tablet, 0 Refills, Maintenance, 05/28/22 8:20:00 EDT, Tablet, [facility], Partial fill upon patient request if [...] tablet, 11 Refills, Maintenance, 09/25/21 11:17:00 EDT, [facility] #[id number], 165, cm, 09/25/21 11:04:00 EDT, Height, 96, [...] Status: Ordered Dilaudid 4 mg oral tablet 4 mg, Tablet, By Mouth, Every 3 hours, PRN for Pain , Severe, Routine, 05/28/22 7:48:00 EDT Start Date: 05/28/22 Stop Date: 05/30/22 Status: Discontinued Dilaudid 4 mg oral tablet See Instructions, PRN Pain , Severe, Take 0.5-1 tablet By Mouth Every 4 hours, # 42 tablet, 0 Refills, Acute 06/04/22 7:00:00 EDT, 05/28/22 8:20:00 EDT, Tablet, [facility] 3, Partial fillupon patient request if the [...] each, 11 Refills, Maintenance, 09/25/21 11:17:00 EDT, [place] #[id number], 1 sprays Nares, Both 2 times a day,x30 days, 165, cm, 09/25/21 11:04:00 EDT, Height, 96, kg, 07/13/21 10:52:00 EDT, Dry... Start Date: 09/25/21 Stop Date: 09/20/22 Status: Ordered Flovent HFA 220 mcg/inh inhalation aerosol 2 puffs, Inhalation, 2 times a day, # 12 Gm, 11 Refills, Maintenance, 05/19/22 13:39:00 EST, Aerosol, [facility] #[id number], Partial fill upon patient request if the [...] lisinopril 10 mg oral tablet 10 mg, Tablet, By Mouth, 05/30/22 9:00:00 EDT Start Date: 05/30/22 Stop Date: 05/30/22 Status: Completed lisinopril 10 mg oral tablet 10 mg, [...] Date: 05/14/22 Stop Date: 06/13/22 Status: Ordered OxyCODONE IR Tablet 15 mg, Tablet, By Mouth, 05/30/22 9:30:00 EDT Start Date: 05/30/22 Stop Date: 05/30/22 Status: Completed Prevacid 30 mg oral enteric coated capsule [...] 05/12/22 11:38:00 EST, Route to Pharmacy Electronically, [facility] #[id number], 168, cm, 05/12/2310:30:00 EST, Height, 85, kg, [...] Exam Date Time Procedure Performing Provider Status 05/29/22 10:46 PM Knee 1 or 2 Views Left Mony Rodriguez ica; Auth (Verified) Notes: (Knee 1 or 2 Views Left) Reason For Exam: Pain RESULT: Knee 1 or 2 Views Left Portable Knee 1 or 2 Views Left Reason: Pain; Clinical Question(s): Other:; Special Instructions: portable COMPARISON: 05/26/2022 FINDINGS: Left knee arthroplasty remains in anatomic alignment without fragmentation, dislocation or loosening. There is no fracture. There is a persistent moderate suprapatellar joint effusion. There is persistent but decreased postoperative gas. IMPRESSION: Left knee arthroplasty remains in anatomic alignment. Persistent moderate suprapatellar joint effusion with decreasing postoperative gas. WSN: [id number] Ordering Physician: Elli Gutierrez Dictated By: Chidi Armstrong MD Dictated Date/Time: 05/29/22 11:16 p Reviewed By: Chidi Armstrong MD Signed By: Chidi Armstrong MD Signed Date/Time: 05/29/22 11:16 pm Transcribed By: CARLIE Transcribed Date/Time: 05/29/22 11:15 pm * Exam Date Time Procedure Performing Provider Status 05/26/22 11:24 PM Knee 1 or 2 Views Left Santi Floyd E; Auth (Verified) Notes: (Knee 1 or 2 Views Left) Reason For Exam: Postop;Postop RESULT: Knee 1 or 2 Views Left Knee 1 or 2 Views Left, 2 views Reason: Postop; Clinical Question(s): Other:; Implant Position; Special Instructions: Do today at 2200, No flexed knee in the lateral position. Keep leg straight; 2 Views COMPARISON: None. FINDINGS: Status post total knee arthroplasty with normal alignment of the hardware. No acute fracture. Expected soft tissue swelling and emphysema about the knee. IMPRESSION: Status post total knee arthroplasty with no evidence of hardware failure or complication. WSN: [id number] Ordering Physician: Paras Nettles Dictated By: Georgia Mcnulty MD Dictated Date/Time: 05/26/22 11:11 p Reviewed By: Georgia Mcnulty MD Signed By: Georgia Mcnulty MD Signed Date/Time: 05/26/22 11:11 pm Transcribed By: CARLIE Transcribed Date/Time: 05/26/22 11:10 pm Vital Signs Most recent to oldest [Reference Range]: 1 2 3 Height 165 cm (05/30/22 7:00 AM) 165 cm (05/30/22 4:58 AM) 165 cm (05/29/22 6:14 PM) Weight 88.2 kg (05/26/22 2:00 PM) 88.2 kg (05/26/22 7:12 AM) Oxygen Saturation [94-100 %] 100 % (05/30/22 7:00 AM) 100 % (05/30/22 4:58 AM) 100 % (05/29/22 6:14 PM) Pulse Rate [55-90 bpm] 119 bpm *H* (05/30/22 7:00 AM) 113 bpm *H* (05/30/22 4:58 AM) 116 bpm *H* (05/29/22 6:14 PM) Body Mass Index [18.5-24.99 kg/m2] 32.4 kg/m2 *>HHI* (05/26/22 2:00 PM) 32.4 kg/m2 *>HHI* (05/26/22 7:12 AM) Blood Pressure [90-138/55-84 mm Hg] 119/68mm Hg (05/30/22 7:43 AM) 119/68mm Hg (05/30/22 7:43 AM) 131/91mm Hg (05/30/22 7:00 AM) Respiratory Rate [16-30 br/min] 18 br/min (05/30/22 9:41 AM) 18 br/min (05/30/22 8:43 AM) 18 br/min (05/30/22 8:42 AM) Temperature [96.8-100.4 DegF] 98.7 DegF (05/30/22 7:00 AM) 98.0 DegF (05/30/22 4:58 AM) 99.0 DegF (05/29/22 6:14 PM) Liters per Minute 6 L/min (05/26/22 4:45 PM) 5 L/min (05/26/22 4:30 PM) Mode of Delivery (Oxygen) Room air (05/30/22 7:00 AM) Room air (05/30/22 4:58 AM) Room air (05/29/22 6:14 PM) Blood pressure sites Arm, left (05/30/22 7:00 AM) Arm, right (05/30/22 4:58 AM) Arm, right (05/29/22 6:14 PM) Temperature Route Oral (05/30/22 7:00 AM) Oral (05/30/22 4:58 AM) Oral (05/29/22 6:14 PM) Dry Weight 88.2 kg (05/26/22 7:12 AM) Weight Obtained Via Standing scale (05/26/22 7:12 AM) Social History Social History Type Response Tobacco Use: MARIJUANA. Sex Female History and physical note * Event Display: History and Physical Hospital Authored Date: [id number] * Florentino VALDEZ, Marisela Mckenzie: MODIFY Event Display: History and Physical Hospital Authored Date: [id number] SURGICAL HISTORY AND PHYSICAL DATE: 05/26/2022 PRIMARY DIAGNOSIS: Osteoarthritis of the left knee. REASON FOR THE ADMISSION: The patient is being admitted for a left total knee arthroplasty by Dr. Vernon on 05/26/2022. HISTORY OF PRESENT ILLNESS: The patient is a 46-year-old female who presents here today with left knee pain. The pain is severe, it is worsened with activity, it has gotten to the point where it limits the patient's ability to ambulate moderate distances without needing to rest for pain relief. Thepatient uses a cane for ambulation. She has tried and failed nonoperative treatment including anti-inflammatories, physical therapy, injections and Tylenol. The pain has been getting progressively worse, severe nature. The patient states it limits her activities of daily living and she would now like to pursue a left total knee arthroplasty with Dr. Vernon on 05/26/2022. PAST MEDICAL HISTORY: 1. Osteoarthritis. 2. Irritable bowel syndrome. 3. Bladder incontinence. 4. Anxiety. 5. Chronic interstitial cystitis. 6. Hypertension. 7. Obesity with a BMI of 31. 8. Bipolar. 9. Obstructive sleep apnea where the patient no longer uses CPAP after losing a significant amount of weight post-bariatric surgery. 10. Pelvic adhesions. 11. Anemia. 12. Chronic abdominal pain. 13. GERD. 14. Insomnia. 15. Plantar fasciitis. 16. Spinal stenosis. 17. Lumbar radiculopathy. PAST SURGICAL HISTORY: 1. Laparoscopic-assisted total vaginal hysterectomy in 2017. 2. Sigmoidoscopy in 06/2017. 3. Hysteroscopy with tubal sterilization on 05/2017. 4. Arthroscopic partial left medial meniscectomy patellar chondroplasty in 01/2016. 5. Lap band removal and gastric sleeve performed in 2015. 6. Fracture and internal fixation of the third digit of the right hand in 2012. 7. Adjustment laparoscopic gastric band in 07/2011. 8. section x5. 9. Breast reduction in 1993. 10. Sleeve gastrectomy with conversion to gastric bypass in 2021. MEDICATIONS: 1. Albuterol inhaler 2 inhalations twice a day. The patient states she uses it every day and feels her asthma is well managed. 2. Ambien 5 mg by mouth once a day at bedtime taken as needed for insomnia. 3. Amlodipine 5 mg by mouth once a day at bedtime. 4. Amlodipine/benazepril combination 5 mg/10 mg by mouth once daily in the morning. 5. Cetirizine 10 mg by mouth once daily in the morning. 6. Clonazepam 0.5 mg by mouth taken 4 times a day as needed for anxiety, which the patient states she uses 4 times a day. 7. Ditropan 8 mg by mouth once a day at bedtime. 8. Famotidine 20 mg by mouth once a day at bedtime. 9. Flonase 50 mcg inhalation 2 sprays to each naris twice a day. The patient was instructed to bring to the hospital. 10. Oxycodone 15 mg by mouth every 4 hours as needed for pain, which the patient is prescribed by her primary care provider and states she takes it every 4 hours. 11. Prevacid 30 mg by mouth once a day. 12. Promethazine 25 mg by mouth every 4 hours as needed for nausea. 13. Seroquel 200 mg by mouth once a day at bedtime. 14. Singulair 10 mg by mouth once a day at bedtime. 15. Trileptal 300 mg by mouth twice a day. 16. Wellbutrin-XL 450 mg extended release by mouth once a day. 17. Sucralfate 1 gram by mouth twice a day, although the patient states she is instructed to take it 4 times a day. She only tolerates it twice a day. 18. Macrobid 50 mg by mouth once a day at bedtime for 3 months as prescribed by her urologist for her chronic cystitis prophylactically for the scheduled surgery. ALLERGIES: THE PATIENT REPORTS AN ALLERGY TO ZOLOFT, WHICH CAUSES PROLONGED QT, SULFA MEDICATIONS, WHICH CAUSES A RASH. HALDOL, WHICH CAUSES RESTLESSNESS. THE PATIENT IS NOT ABLE TO TOLERATE ANY NSAIDS DUE TO HER PAST GI SURGERIES. SHE REPORTS SENSITIVITY TO THE FENTANYL PATCH WHERE SHE WAS FOUND UNCONSCIOUS ON THE GROUND AND MORPHINE SENSITIVITY, WHICH CAUSED A MILD RASH. SOCIAL HISTORY: The patient is single. She has 5 children. 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 She denies the use of any alcohol or tobacco products, and states she uses marijuana tincture multiple timesa week. The patient was instructed not to use for at least 3 days prior to surgery and not well on prescribed narcotics from Orthopedic team postop. REVIEW OF SYSTEMS: Denies headache, dizziness or syncope. Denies fever, chills, unexplained weight loss or fatigue. Denies rash or lesions. Denies rhinorrhea, earache, sore throat or swollen glands. Denies cough, shortness of breath or wheezing. Denies chest pain, pressure or palpitations. Positivefor edema in bilateral lower extremities. Denies nausea, vomiting. The patient states she has chronic diarrhea. Denies constipation or abdominal pain. Denies dysuria, urinary urgency or frequency, states she does have chronic cystitis. Denies calf pain, history of blood clots in the legs. Denies numbness or tingling. Denies bruising or bleeding tendencies. PHYSICAL EXAMINATION: VITAL SIGNS: Height 55.5 inches, weight 190 pounds, temperature 97.2 degrees, blood pressure 108/72, pulse 99 beats per minute. GENERAL: Alert and oriented. Normal insight, affect and grooming. SKIN: Intact without rash or lesion. Nails without clubbing or cyanosis. HEENT: Normocephalic. Conjunctivae pink. Sclerae are anicteric. NECK: Supple. Trachea midline. No lymphadenopathy. CHEST: Lungs are clear to auscultation bilaterally, breathing unlabored. CARDIOVASCULAR: Heart has a regular rate and rhythm with a normal S1 and S2. No murmur, rub or gallop appreciated. No JVD. Carotid pulses without bruit. ABDOMEN: Soft, nontender, normal bowel sounds. EXTREMITIES: Lower extremities from previous exam, the patient's left knee has no erythema, no abrasions and no edema noted. The skin temperature is normal. There is no swelling present. Alignment is varus. The range of motion includes in extension at 0 degrees and flexion greater than 125 degrees. There is no flexion contraction and there is no extensor lag. Bilateral lower extremities have motor sensation screening intact. The calves are supple and nontender. Ankle motion is satisfactory. Pedal pulses palpable bilaterally and skin about the feet is intact. PREOPERATIVE DIAGNOSTIC DATA: EKG reads normal sinus rhythm with prolonged QTc at 472 at 89 beats per minute. Orthopedic x-ray demonstrates severe DJD present, changes consistent with osteoarthritis including joint space narrowing, subchondral sclerosis and osteophyte formation. The arthrosis primarily affects the medial compartment and the alignment is varus. LABORATORY DATA: CBC from 05/10/2022 shows a hemoglobin 11.7, a hematocrit of 34.9 and platelet count of 253. Coags are within normal limits. INR is 1.0. Chemistries show a hemoglobin A1c of 5.0, creatinine of 0.7 and estimated GFR of 110. PHYSICIANS: The patient's primary care provider is Lisseth Nassar, nurse practitioner who also is her pain management provider and prescribed her oxycodone and her GI doctor is Dr. Patino, the patient'scardiologist is Dr. Zhang. The patient's urologist is Dr. Rodriguez and the patient's bariatric Dr. . ASSESSMENT AND PLAN: The patient has advanced osteoarthritis of the left knee and is now scheduled for left total knee arthroplasty by Dr. Vernon on 05/26/2022. The patient was seen by the medical consultative preop clinic on the who feel the patient is a low cardiac and pulmonary risk and there are no absolute medical contraindications to proceeding with the surgery. The patient was seen by her hide or skin buffer, Dr. Zhang, who states they do not see a significant cardiac contraindication to undergoing the surgery. They recommended to be mindful monitoring her blood pressure, pre and postopsaid she does have a history with poor pain management of spiking significantly high blood pressures with systolics greater than 200. The patient was seen by the pain management team who recommended that the patient should continue on her home dose of oxycodone 15 mg q. 4, Tylenol 975 q. 8 hours and postop be ordered a Dilaudid CYLINDER INSPECTOR of 0.2 mg every 8 minutes for the immediate postop period. They recommend should be discharged on her home oxycodone and then additional Dilaudid of 2-4 mg as neededevery 4-6 hours for 2 weeks, then the Dilaudid should be discontinued and she will remain on her home oxycodone, which will be managed by her chronic pain specialist. I spoke with Dr. Vernon about this. He states he is okay with prescribing the Dilaudid for 2 weeks postop. The patient was also seen by her urologist for her chronic interstitial cystitis, who recommended prophylactic antibiotics around to the surgery, for which the patient will be taking 90 days of Macrobid. The patient denies any symptoms of urinary cystitis at this time. The patient was also seen by her bariatric surgeon who states that the patient underwent a sleeve gastrectomy followed by a conversion to gastric bypass last year. She has been doing very well with weight loss. She is being treated currently for marginal ulcer at the anastomosis and it is their opinion that there are no contraindications to the planned knee replacement surgery. The patient will receive IV TXA. We will use Eliquis 2.5 mg by mouth twice a day for 30 days postop due to her current GI ulcer, history of gastric bypass and we will not use Celebrex due to her GI history. Plan will be to use a Dilaudid CYLINDER INSPECTOR for pain. Recommendations for postop pain control and will be discharged on her home oxycodone regimen with Dilaudid 2-4 mg every 4-6 hours for 2 weeks. Discharge plans will be to home with services. The patient is not a candidatefor same day discharge. The patient has been counseled regarding the risks and benefits of the proposed surgery. Questions have been answered and he acknowledges understanding. The patient wishes to proceed with surgery and signed the consents. The patient will have 1 week of in-home physical therapy prior to going to outpatient physical therapy. Prescription sent to the pharmacy at the time of this appointment include none. She will need Eliquis and pain medications sent home the day of surgery. The patient does not wish to get any Colace and is already on home PPI. CONTACTS: The patient's daughter who can be reached at [phone]. Dictated by: Marisela Good N.P. Signing Clinician: Kenneth Vernon M.D. Dictated: 05/11/2022 11:11:16 Transcribed: 07:00:46 AM Transcribed by: ERROL DocID: [id number] PRELIMINARY REPORT UNLESS MANUALLY/ELECTRONICALLY SIGNED Note * Mireya Torres RN: PERFORM Event Display: Discharge/Transfer Note Hospital Authored Date: [id number] Nursing Discharge Note Entered On: 05/30/2022 11:09 EDT Performed On: 05/30/2022 11:08 EDT by Mireya Torres RN Nursing Discharge Note 2 Discharge Time : 05/30/2022 11:20 EDT Discharge Level of Care at Discharge : Homehealth/VNA Patient Left Unit Via : Wheelchair Patient Accompanied Off Unit with : Other: Edgardo CASTAÑEDA DC Instructions Provided & Signed by Pt : Yes Patient Understands D/C Instructions : Yes Patient Instructions Discharge Signed : Yes Did Pt have Specialty Bed or Wound Vac : No Mireya Torres RN - 05/30/2022 11:08 EDT * Mireya Torres RN: PERFORM Event Display: Patient Education/Instruction Authored Date: [id number] Inpatient Adult Discharge Instructions [address] [address] Name: DIANNE HOWELL : 1975 Visit: 05/27/2022 16:37:00 Current Date: 05/30/2022 10:42 Account: [id number] Inpatient Adult Discharge Instructions We would like [...] and their families. Surveys are administered by [facility]. ?? If further treatment with your primary care physician or another doctor is recommended, it is important for you to keep the appointment. Call your primary care physician or return to the Emergency Department immediately if your condition worsens, fails to improve, or new symptoms develop. If you need to find a doctor, you can call [facility] for a referral at [phone] or toll free at [phone]) or log in to [email or web address] ?? You can view and manage your care through the patient portal or by using a health care shraddha of your choosing. [employer] is a website that allows you to securely view your medical information including your hospital discharge summary, office visit summaries, medications and follow-up visits. You can also request appointments, renew medications, and request access to your medical information using a health care shraddha of your choosing, or just ask a question. You can enroll at [email or web address] or register during your next office visit. You have been discharged from [facility], Patient Care Unit: SW7. If you have any questions regarding these instructions after you leave, please call us and we will be happy to assist you. [facility] Your Care Team Attending Physician Juan David SPENCER, Kenneth Driver Discharging Providers Wayne SPENCER, Kelly Kathleen Reason for Admission OA LEFT KNEE XIONG MALIK Your Diagnosis Osteoarthritis of left knee Tests Performed Below is a partial list of the tests performed during your hospitalization. You may have had other tests and procedures not included in this list. Please discuss all test results with your provider. Beta HCG Serum (Females Only) BUN COMPLETE BLOOD COUNT Creatinine Electrolytes HOLD GEL TUBE HOLD LAVENDER TUBE Potassium Level Knee 1 or 2 Views Left XR Knee 1 or 2 Views Left Primary Care Provider Cesario VALDEZ, Lisseth Hancock Advance Directive Health Care Proxy on File Yes - Health Care Proxy Discharge Vitals Temperature: 98.7 DegF Height: 165 cm Pulse Rate:??119 bpm??High Weight: 88.2 kg Respiratory Rate: 18 br/min Body Mass Index:??32.4 kg/m2??Critical Systolic Blood Pressure: 119 mm Hg Body surface area: 2.01 Systolic Blood Pressure: 119 mm Hg ?? Diastolic Blood Pressure: 68 mm Hg ?? Diastolic Blood Pressure: 68 mm Hg ?? Oxygen Saturation: 100 % ?? Studies Pending All tests and labs ordered during this hospital stay have been completed unless listed below. Please discuss all pending results with your provider listed above in these instructions. ?? BUN CBC COVID-19 (2019 Novel Coronavirus) PCR Creatinine Electrolytes What to do next Instructions From Your Doctor Discharge Orders You Need to Schedule the Following Appointments Follow Up with??Juan David SPENCER, Kenneth Driver When?? Why: Call office Tuesday to verify follow up appointments dates and times. Where: [address] [facility] [address] [facility] [place] [address]- Follow Up with??[facility] When??Within 1 to 2 weeks Why: PLEASE CALL [facility] WITH ANY QUESTIONS AVAILABLE 04/10 Where: [address] [facility] [address] [place] [address]- Discharge Medications DIANNE HOWELL :1975 Visit Date:05/27/2022 Medications: Please continue your medications until treatment is completed or stopped by your provider. Medications not listed below should be discontinued. Discuss any questions related to medications with your provider. What How Much When Why Instructions Next Dose New Acetaminophen (acetaminophen 325 mg oral tablet) 975 Milligram Oral Every 8 hours may take OTC. not to exceed 4000 mg/ day ?? Next dose due 2pm today New apixaban (apixaban 2.5 mg oral tablet) 1 tab(s) Oral Twice a day Duration: 30 Days Pickup at [facility] 3 Next dose due tonight 8pm New Docusate (Colace Capsule) 100 Milligram Oral Twice a day As needed New Hydromorphone (Dilaudid 4 mg oral tablet) See instructions Take 0.5-1 tablet By Mouth Every 4 hours ?? Pickup at [facility] 3 Next dose due 11:45am today as needed for pain. New Lisinopril (lisinopril 10 mg oral tablet) 1 tab(s) Oral Daily Next dose due tomorrow morning. New Polyethylene Glycol 3350 (MiraLax Powder) 17 gram Oral Daily as needed for Constipation As needed. Changed Amlodipine (amLODIPine 5 mg oral tablet) 1 tab(s) Oral Daily at Bedtime Next dose due tonight at bedtime. Changed BusPIRone (busPIRone 10 mg oral tablet) 0.75 tab(s) Oral Daily at Bedtime Next dose due tonight at bedtime. Changed BusPIRone (busPIRone 10 mg oral tablet) 1 tab(s) Oral Twice a day Next dose due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 ?Keep elevated as much as possible. ?Ice the knee 4 times a day for 20 minutes each time. Be sure not to put the ice/ice pack directly on your skin. Use a dish towel or something similar between the ice and your skin. ??? Moving ? Get up and walk frequently. ??? Do 20 ankle pumps every hour. ??? Complete your exercises 4times a day, bending and straightening your knee ??? Begin exercises the evening you go home ??? Moving is especially important. This helps to prevent blood clots. Take short frequent walks. ? Wear your knee brace when walking until your surgeon or physical therapist tells you to stop. ??? You may sleep with or without the brace and sleep anyway you are comfortable. ??? Place a pillow underthe ankle/lower leg when lying down to help with extension of your knee. ??? Do not put a pillow under your knee ??? Continue to move your foot up and down, this exercise helps to prevent blood clotsand to help reduce swelling in your knee ??? No driving until approved by your surgeon ?? Incision ?Your incision is closed with absorbable stitches and surgical glue. ?The dressing iswaterproof. You may shower the next day. ??? You may develop some discoloration around your incision (yellowish or bruising) ??? Your dressing will stay on for 1-2 weeks ?You cannot go in a bath, pool, ocean, pond, koo or jacuzzi for 6 weeks. This is to reduce your risk of infection ? You may have some numbness around the incision. This is normal and will improve with time. Some patients have numbness that does not completely go away. ?? When to call the Surgeon?CALL [phone] ?If you have shortness of breath or chest pain, call 911 or go to the nearest emergency department. ??? If you have drainage and/or redness around your wound. ?If you have a fever greater than 101.5 (38.5 degrees Celsius). ?If you have persistent calf pain or swelling (This couldbe a blood clot). ??? If your pain is worsening. ? If you have any difficulty with urination or burning with urination ? * Dolly VASQUEZAmanda: PERFORM Event Display: Patient Education Leaflets Authored Date: [id number] Managing Post-Op Pain at Home: Non-Medicine Relief ?? [id number] Managing Post-Op Pain at Home: Non-Medicine Relief Medicines are not the only way to ease pain after surgery. Try these methods instead of pain medicine or to lower the amount of pain medicine you need. Visualization or guided imagery Visualization helps take your mind off the pain: ??? Close your eyes. Breathe deeply. ??? Picture yourself in a quiet, peaceful place. ??? Imagine how you feel in that place. ??? If other thoughts come into your mind, take a deep breath and try again. ?? Progressive body relaxation Relaxation helps ease stress and pain: ??? Close your eyes. Clench your foot muscles. ??? Hold for a few seconds. Release. ??? Repeat with the muscles in your calves. ??? Work slowly up your body. Tense and relax different muscle groups from your belly, chest, arms, neck, and face. ?? Deep breathing Deep breathing relaxes your whole body: ??? Inhale through your nose??slowly and deeply. ??? Hold your breath for a few seconds. ??? Exhale through your mouth slowly and deeply. ??? Repeat 3 more times. ?? Last Reviewed Date: 2021 ?? 6224-0092 [employer]. All rights reserved. This information is not intended as a substitute for professional medical care. Always follow your healthcare professional's instructions. ?? * Event Display: Adult Preadmission Health Questionnaire Authored Date: * Wayne SPENCER, Kelly Kathleen: SIGN, MODIFY, SIGN, MODIFY Tiffanie Carlson NP: MODIFY, SIGN Aldo VALDEZ, Tiffanie Anne: SIGN, MODIFY Aldo VALDEZ, Tiffanie Anne: MODIFY, SIGN Aldo VALDEZ, Tiffanie Anne: SIGN, PERFORM Aldo VALDEZ, Tiffanie Anne: PERFORM, SIGN Aldo VALDEZ, Tiffanie Anne: SIGN, VERIFY Tiffanie Carlson NP: VERIFY Event Display: Discharge/Transfer Note Hospital Authored Date: Patient: DIANNE HOWELL Age: 46 years Sex: Female : 1975 Associated Diagnoses: None Author: Aldo VALDEZ, Tiffanie Anne Discharge Summary Admission Date: 05/26/22 Discharge Date: 05/28/22 Admitting Diagnosis: osteoarthritis left knee Discharge Diagnosis: osteoarthritis left knee Final Diagnosis : osteoarthritis left knee Procedure: arthroplasty left knee Surgeon: Dr. Vernon Past Medical History: 1. Osteoarthritis. 2. Irritable bowel syndrome. 3. Bladder incontinence. 4. Anxiety. 5. Chronic interstitial cystitis. 6. Hypertension. 7. Obesity with a BMI of 31. 8. Bipolar. 9. Obstructive sleep apnea where the patient no longer uses CPAP after losing a significant amount of weight post-bariatric surgery. 10. Pelvic adhesions. 11. Anemia. 12. Chronic abdominal pain. 13. GERD. 14. Insomnia. 15. Plantar fasciitis. 16. Spinal stenosis. 17. Lumbar radiculopathy. Orthopedics: The patient is status post left total knee arthroplasty. It is anticipated that she will be discharged home today pending PT, OT clearance. The patient is doing well from a surgical standpoint. Her incision is healing well. Neurovascular status is intact. Calves are supple and nontender. Making good progress with Physical Therapy and Occupational therapy. Supervision with ambulation walking 25 feet , ambulating with a walker. ROM pending. Pain is well controlled on her current regimen, Acetaminophen 650 mg every 6 hours and Oxycodone IR 15mg every 4 hours, Dilaudid 2-4mg every 4 hours as needed. Patient is tolerating this well. She will be sent home with a prescription for this medication. Prescription: Dilaudid 4mg tablet. Take 0.5- 1 tablets every 4 hours as needed for pain x 7 days. #42 tablet. [employer] insurance restrictions. Patient also filled a prescription of home Oxycodone 15mg for 180 tablets on 05/17/22. She may continue to take the Oxycodone 15mg every 4 hours with Dilaudid in between every 4 hours as needed for pain. Hospital course: Relatively uneventful medically. Struggled with pain during stay. Pain service consulted and patient refused a reblock initially but then ended up getting a reblock with little improvement. She remained on CYLINDER INSPECTOR pump until POD 2 where it was increased on POD 1. Oxycodone IR 15mg changed from PRN to scheduled every 4 hours per pain management. POD 2 her CYLINDER INSPECTOR was discontinued and she was started on PODilaudid 2-4mg Q4h in addition to her home regimen of Oxycodone 15mg Q4h. Patient unable to void onown after surgery and khan was placed. Patient did not want khan removed POD 1 and it was removedon POD 2 for voiding trial prior to discharge. Patient is voiding spontaneously. + bowel sounds. Noother issues. No calf tenderness. Potassium 3.3 POD 1 and PO replacement ordered and recheck in place. Current Medication List: Acetaminophen (acetaminophen 325 mg oral tablet) 975 Milligram By Mouth Every 8 hours may take OTC.not to exceed 4000 mg/day Albuterol (albuterol 0.083% inhalation solution) 3 Milliliter 2.5 Milligram Inhalation Every 6 hours as needed Wheezing/Shortness of Breath Albuterol (albuterol CFC free 90 mcg/inh inhalation aerosol) 2 puff(s) Inhalation 4 times a day as needed amiTRIPTYLINE (amitriptyline 25 mg oral tablet) 25 Milligram 1 tablet By Mouth Daily at bedtime Amlodipine (amLODIPine 5 mg oral tablet) 5 Milligram 1 tablet By Mouth Daily at bedtime Amlodipine-Benazepril (amlodipine-benazepril 5 mg-10 mg oral capsule) 1 capsule By Mouth Daily apixaban (apixaban 2.5 mg oral tablet) 1 tab(s) 2.5 Milligram By Mouth 2 times a day for 30 Days BuPROpion (Wellbutrin XL 300 mg/24 hours oral tablet, extended release) 1.5 tab(s) 450 Milligram ByMouth Every 24 hours BusPIRone (busPIRone 10 mg oral tablet) 10 Milligram 1 tablet By Mouth 2 times a day BusPIRone (busPIRone 10 mg oral tablet) 7.5 Milligram 0.75 tablet By Mouth Daily at bedtime Cetirizine (cetirizine 10 mg oral tablet) 1 tab(s) By Mouth Daily Clonazepam (clonazePAM 0.5 mg oral tablet) 1 tab(s) 0.5 Milligram By Mouth 3 times a day as needed Anxiety for 30 Days to be filled on or after 03/07/17 use sparingly; for pcp=julianne Nassar checked Docusate (Colace Capsule) 100 Milligram 1 capsule By Mouth 2 times a day Epinephrine (EpiPen 2-Chandrakant 0.3 mg injectable kit) 0.3 Milligram Intramuscular Once PRN Anaphylaxis Famotidine (famotidine 20 mg oral tablet) 20 Milligram 1 tablet By Mouth Daily at bedtime Fluticasone (Flovent HFA 220 mcg/inh inhalation aerosol) 2 puff(s) Inhalation 2 times a day Fluticasone Nasal (Flonase 50 mcg/inh nasal spray) 1 spray(s) Nares, Both 2 times a day for 30 Days Gabapentin (gabapentin 300 mg oral capsule) 300 Milligram 1 capsule By Mouth Daily Hydromorphone (Dilaudid 4 mg oral tablet) See Instructions as needed Pain , Severe Take 0.5-1 tablet By Mouth Every 4 hours Lansoprazole (Prevacid 30 mg oral enteric coated capsule) 1 capsule 30 Milligram By Mouth Daily for30 Days Montelukast (Singulair 10 mg oral tablet) 10 Milligram 1 tablet By Mouth Daily in PM Ondansetron (ondansetron 8 mg oral tablet) 1 tab(s) 8 Milligram By Mouth Every 8 hours as needed Nausea & Vomiting Oxcarbazepine (OXcarbazepine 300 mg oral tablet) 450 Milligram 1.5 tablet By Mouth 2 times a day Oxybutynin (Ditropan) 4mg 2 tablets By Mouth Daily at bedtime Oxycodone (oxyCODONE 15 mg oral tablet) 1 tab(s) 15 Milligram By Mouth Every 4 hours as needed as needed for pain for 30 Days Pt on narcotic contract; MassPat checked; Dx chronic low back pain; may fill less; May fill on/after 05/18/2022 Polyethylene Glycol 3350 (MiraLax Powder) 1 pack/packet 17 gram By Mouth Daily as needed Constipation Promethazine (promethazine 25 mg oral tablet) 1 tab(s) 25 Milligram By Mouth Every 4 hours as needed for nausea/vomiting Quetiapine 200 Milligram By Mouth Daily at bedtime Zolpidem (Ambien 5 mg oral tablet) 1 tab(s) 5 Milligram By Mouth Daily at bedtime as needed Insomnia Allergies: Allergies (Active and Proposed Allergies Only) Haldol (Severity: Unknown severity, Onset: Unknown) Reactions: Agitation fentanyl topical (Severity: Unknown severity, Onset: Unknown) Reactions: passed out sulfADIAZINE (Severity: Unknown severity, Onset: Unknown) Reactions: rash sulfa drugs (Severity: Unknown severity, Onset: Unknown) Reactions: rash sertraline (Severity: Unknown severity, Onset: Unknown) Reactions: QT wave change Comments: changed my QT interval has a hide or skin buffer NSAIDs (Severity: Unknown severity, Onset: Unknown) Reactions: 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 secondary to gastric bypass Bactrim (Severity: Unknown severity, Onset: Unknown) Reactions: rash Current Labs: Last 24 Hours Basic Metabolic Panel: Sodium: 135 mmol/L (05/28/22) Potassium (POC): 3.3 mmol/L (05/28/22) Phosphorus: ------ Magnesium: ------ BUN (POC) POC Cartridge: 5 mg/dL (05/28/22) Creatinine-Blood: 0.7 mg/dL (05/28/22) Creatinine Clearance: ------ Additional - Last 24 Hours Anion Gap: 9 (05/28/22) Bicarbonate Level: 27 mmol/L (05/28/22) BUN: BUN (05/28/22) Chloride: 99 mmol/L (05/28/22) Creatinine, Blood: Creatinine, Blood (05/28/22) Estimated GFR Creatinine: 102 ML/MIN/1.73 M2 (05/28/22) DVT prophylaxis Eliquis 2.5 mg p o bid x 30 days Disposition: Anticipates being discharged today to home. Follow up at [facility] on 06/10/22 at 1:00pm , patient is aware of this. The patient has an Aquacel dressing in place. she may shower with it and the dressing can be discontinued on POD 14. Case discussed with Dr. Vernon Discharge Information Admission Date: 05/26/2022 Principal Discharge Diagnosis Discharge Plan Discharge Disposition Discharge: home with VNA. Home Health Face to Face I certify that this patient is under my care and that I or an allowed non- physician practitioner working with me, had a [id number] encounter with the patient on this date: 05/27/2022. The encounter with the patient was in whole, or in part, for the following medical condition, whichis the primary reason for home health care: Osteoarthritis of left knee. Physical Therapy: Functional mobility training, Home exercise program to strengthen, increase ROM, Falls prevention training. Homebound due to: Inability to leave home without assistance/supervision, Inability to ambulate without assistance, Pain, decreased strength, and endurance, Unsteady gait. Physician Signature: Juan David SPENCER, Kenneth Nance * Kelly Black MD, V: PERFORM Event Display: Discharge/Transfer Note Hospital Authored Date: Patient required an additional night's stay due to poor pain control just prior to discharge on POD#2. Pain improved overnight on a regimen of Oxycodone 15mg + Dilaudid 4mg q4h prn. Will work with PTagain this morning and anticipate discharge home today. Labs (Last four charted values) WBC 9.8 (MAY 18) 9.1 (MAY 17) 8.0 (MAY 16) Hgb L 9.5 (MAY 18) L 10.2 (MAY 17) L 10.8 (MAY 16) Hct L 28.3 (MAY 18) L 30.4 (MAY 17) L 32.0 (MAY 16) Plt 213 (MAY 18) 246 (MAY 17) 257 (MAY 16) Na 134 (MAY 18) 135 (MAY 17) 138 (MAY 16) K 3.9 (MAY 18) L 3.3 (MAY 17) L 3.3 (MAY 17) 4.0 (MAY 16) Cr 0.7 (MAY 18) 0.7 (MAY 17) 0.7 (MAY 16) BUN 9 (MAY 18) L 5 (MAY 17) L 4 (MAY 16) * Kelly Black MD, V: PERFORM Event Display: Discharge/Transfer Note Hospital Authored Date: Patient had an episode of a sudden movement of her leg on POD#3 resulting in increased swelling andpain. Did not do well with PT following this episode, and clearance for home rescinded. Pain bettermanaged over the evening and on POD#4 worked again with PT, cleared for home. Hospital Progress note * Mireya Torres RN: PERFORM, SIGN, VERIFY Event Display: Progress Note Hospital Authored Date: Patient: DIANNE HOWELL Age: 46 years Sex: Female : 1975 Associated Diagnoses: None Author: Brian VASQUEZ, Mireya Findings Problem Related to Alteration in Musculoskeletal : Alteration in Musculoskeletal Func/new 05/30/2022 10:00 EDT Alteration in Musculoskeletal Related to Mobility, Orthopedic Procedure, Total joint replacement, Other: LTK REPLACEMENT DR VERNON 05/26 Goals & Outcomes, Musculoskeletal Affected extremity will maintain color/motion/sensation, Pt able to perform ADL's to best of ability, Pt demonstrates precautions/exercise/ transfers per protocol, Pt will ambulate safely with assistive device, Pt will be free from complications of immobility, Pt will demonstrate ability to participate in ADL's, Pt will report acceptable level of comfort/painrelief Interventions, Musculoskeletal [place] Pt/caregiver to Total Knee Replacement protocol Goals/Interventions, Musculoskeletal Yes Musculoskeletal, Problem Start 05/26/2022 22:00 Reviewed Plan with, Musculoskeletal Patient Patient Progression, Musculoskeletal Pt progressing according to plan . Evaluation P- as per musculoskeltal plan of care I-as per updated plan of care E- POD #[address] Vernon. [facility] and face sheet and called agency rn admissions to inform of discharge today. Pain better controlled today on dilaudid 4mf po q 4hours and oxycodone 15mg q 4. Has remained alert and oriented x4. Left knee immobilizer in place, using walker with steady gait. Aquacel surgical incision, clean, dry and intact with one very small old blood stain. +dorsi/plantar flexion. Eating, drinking and voiding as per her normal routine. IV discontinued. Discharge instructions reviewed with patient. . * Wayne SPENCER, Kelly V: PERFORM Event Display: Progress Note Hospital Authored Date: [id number] Ortho POD 4 s/p left TKA (Dr. Humphries) S: Did well with PT in the morning, but had trouble later in the day with increased pain and swelling after footrest on recliner dropped unexpectedly. Based on afternoon PT session, she was no longercleared for home and stayed another night. Notes that she is doing much better this morning, anxious to get home, highly motivated to work with PT this morning. O: Vital Signs (last 24 hrs) Last Charted Heart Rate Peripheral H 113bpm (MAY 30 04:58) Resp Rate 18 br/min (MAY 30 05:23) SBP 119 mm Hg (MAY 30 04:58) DBP 68 mm Hg (MAY 30 04:58) SpO2 100 % (MAY 30 04:58) Height 165 cm (MAY 30 04:58) General: alert, lucid, in NAD Abdomen: soft NT BS active Neurovascular: calves soft NT, +DF/+PF Dressing: CDI Labs (Last four charted values) WBC 7.7 (MAY 30) 7.5 (MAY 30) 9.8 (MAY 29) 9.1 (MAY 28) Hgb L 8.9 (MAY 30) L 8.9 (MAY 30) L 9.5 (MAY 29) L 10.2 (MAY 28) Hct L 26.1 (MAY 30) L 26.9 (MAY 30) L 28.3 (MAY 29) L 30.4 (MAY 28) Plt 212 (MAY 30) 221 (MAY 30) 213 (MAY 29) 246 (MAY 28) Na 134 (MAY 30) 134 (MAY 29) 135 (MAY 28) 138 (MAY 27) K 3.7 (MAY 30) 3.9 (MAY 29) L 3.3 (MAY 28) L 3.3 (MAY 28) Cr H 1.1 (MAY 30) 0.7 (MAY 29) 0.7 (MAY 28) 0.7 (MAY 27) BUN 14 (MAY 30) 9 (MAY 29) L 5 (MAY 28) L 4 (MAY 27) A/P: 46 year old female with history of Anxiety, HTN, Bipolar, Anemia, FLOWER, GERD now s/p left TKA POD4 Urinary retention: resolved, voiding without difficulty HTN: stable. cont with Amlodipine and Amlodipine/Benazepril Anxiety and Bipolar: cont with Clonazepam, Wellbutrin GERD: Continue pantoprazole FLOWER: does not use CPAP, cont with ETCO2/O2 monitoring Pain: Acetaminophen 650 mg every 6 hours, Oxycodone 15mg + Dilaudid 4mg PO q3-4h prn DVT prophylaxis: Eliquis 2.5 mg PO BID x 30 days WBAT, to work with PT one more time this morning Discharge: home today once cleared again by PT * Humaira Carter: PERFORM, MODIFY, SIGN, VERIFY Event Display: Progress Note Hospital Authored Date: [id number] Patient: DIANNE HOWELL Age: 46 years Sex: Female : 1975 Associated Diagnoses: None Author: Humaira Carter Findings Problem Related to Alteration in Musculoskeletal : Alteration in Musculoskeletal Func/new 05/29/2022 22:11 EDT Alteration in Musculoskeletal Related to Mobility, Orthopedic Procedure, Total joint replacement, Other: LTK REPLACEMENT DR VERNON 05/26 Goals & Outcomes, Musculoskeletal Affected extremity will maintain color/motion/sensation, Pt able to perform ADL's to best of ability, Pt demonstrates precautions/exercise/ transfers per protocol, Pt will ambulate safely with assistive device, Pt will be free from complications of immobility, Pt will demonstrate ability to participate in ADL's, Pt will report acceptable level of comfort/painrelief Interventions, Musculoskeletal Monitor patients ambulation status, monitor Color/Motion/Sensation, Encourage deep breathing & coughing exercises, Obtain assistive devices as needed, Teach & Encourage use of Incentive spirometer, Teach Pt/caregiver on exercises, Teach pt/caregiver on use of pain scale, Teach Pt/caregiver complications of immobility, Teach Pt/caregiver techniques to increase mobility, Teach Pt/caregiver on safety precautions BH Goals/Interventions, Musculoskeletal Yes Musculoskeletal, Problem Start 05/26/2022 22:00 Reviewed Plan with, Musculoskeletal Patient Patient Progression, Musculoskeletal Pt progressing according to plan . Nursing Data Vital Signs : VITAL SIGNS SECTION 05/29/2022 18:14 EDT Temperature 99.0 DegF Temperature Route Oral Pulse Rate 116 bpm H Respiratory Rate 18 br/min Systolic Blood Pressure 129 mm Hg Diastolic Blood Pressure 87 mm Hg H Blood pressure sites Arm, right Mean Arterial Pressure 101 mm Hg Pulse Pressure 42 mm Hg Oxygen Saturation 100 % Mode of Delivery (Oxygen) Room air . Narrative/Incidental Pt is AOx4.VS stable. Lungs CTA. Pt denies SOB/CP.Abd SNT, +BS. last BM 05/26, refusing scheduled stool softeners, education provided. Pt is tolerating diet, denies N/V. Pt is voiding adequate amountsof CYU using a bathroom. Belongings/callbell within reach and is encouraged to use. Bed is in the lo west,locked position with 2 siderails up. Pt is resting in bed at this time. Pts needs met, hourly rounds. P: Alteration in musculoskeletal I: See interventions as listed above E: +PP, +CMS, + dorsi/plantar flexion to BLE. Aquacel dressing to the left knee with small amount of old bloody staining, ice bag applied. Swelling to the knee noted, LLE elevated on the pillows. Perpts statement recliner chair went under her not supporting her knee and it was bent unexpectedly causing her more pain during dayshift. Covering NEOS Андрей, Elli DELATORRE notified. Order for Xray obtained, pending at this time. Pt is complaining 6-7/10 pain, given Dilaudid 4 mg, Oxycodone 15 mg with some effect. Per pts statement her pain is 5/10 after receiving pain medications. Pt denies numbness/tingling/calf pain. Cboots and Eliquis for DVT prophylaxis. OOB with 1 assist and a walker. Immobilizer while ambulating, Cboots while in bed. Progressing along plan of care.. Discharge Information Case Management Discharge Plan : Case Management Discharge Plan Data 05/28/2022 15:28 EDT Discharge Level of Care at Discharge Not Done: Order Discontinued (Not Done) 05/28/2022 14:28 EDT Discharge Level of Care at Discharge In Error (In Error) 05/26/2022 14:53 EDT Discharge Level of Care at Discharge Homehealth/VNA Name of Agency #1 [facility] Respite Worker # Service Categories #1 Physical Therapy Service Comments #1 [facility] will contact you to set up a visit time after discharge. Please call [phone] if you don't hear from them. Rehabilitation Discharge : Rehab Discharge Index 05/29/2022 15:58 EDT Walker: distance < 10 05/28/2022 8:20 EDT Walker: distance >50 05/27/2022 10:14 EDT Comments on treatment indicated adls functl mob safety pt edu car [facility] Hospital course Hospital course 05/26/2022 17:14 EDT Full chart review completed Yes 05/26/2022 17:01 EDT Comments on treatment indicated 46 yo F s/p L TKA on 05/[address] Vernon. WBAT L LE, KI only if pt unable to SLR. Skilled PT for therex, transfers, amb with RW, stairs. Rec home with services pending progress. Walker: distance 10-20 Distance pt will ambulate 100 ft with RW Full chart review completed Yes Hospital course Hospital course Other findings see comment Plan of care PT Gait training, Transfer training, Therapeutic exercise, Functional Activities, Balance training XR Knee - left 1 or 2 Views * MACIELoweraraceli , CIS S: TRANSCRIChidi Wilcox MD: VERIFY Event Display: Result: Authored Date: [id number] Portable Knee 1 or 2 Views Left Reason: Pain; Clinical Question(s): Other:; Special Instructions: portable COMPARISON: 05/26/2022 FINDINGS: Left knee arthroplasty remains in anatomic alignment without fragmentation, dislocation or loosening. There is no fracture. There is a persistent moderate suprapatellar joint effusion. There is persistent but decreased postoperative gas. IMPRESSION: Left knee arthroplasty remains in anatomic alignment. Persistent moderate suprapatellar joint effusion with decreasing postoperative gas. WSN: [id number] Ordering Physician: Elli Gutierrez Dictated By: Chidi Armstrong MD Dictated Date/Time: 05/29/22 11:16 p Reviewed By: Chidi Armstrong MD Signed By: Chidi Armstrong MD Signed Date/Time: 05/29/22 11:16 pm Transcribed By: CARLIE Transcribed Date/Time: 05/29/22 11:15 pm * RAISPowerscribe , CIS S: TRANSCRIGeorgia Alva MD: VERIFY Event Display: Result: Authored Date: [id number] Knee 1 or 2 Views Left, 2 views Reason: Postop; Clinical Question(s): Other:; Implant Position; Special Instructions: Do today at 2200, No flexed knee in the lateral position. Keep leg straight; 2 Views COMPARISON: None. FINDINGS: Status post total knee arthroplasty with normal alignment of the hardware. No acute fracture. Expected soft tissue swelling and emphysema about the knee. IMPRESSION: Status post total knee arthroplasty with no evidence of hardware failure or complication. WSN: [id number] Ordering Physician: Paras Nettles Dictated By: Georgia Mcnulty MD Dictated Date/Time: 05/26/22 11:11 p Reviewed By: Georgia Mcnulty MD Signed By: Georgia Mcnulty MD Signed Date/Time: 05/26/22 11:11 pm Transcribed By: CARLIE Transcribed Date/Time: 05/26/22 11:10 pm Patient Care team information Care Team Personnel Name: Tristin Hunt RN Position: S RN Member Role: Primary Care Nurse Name: Lisseth Nassar NP Position: [facility] PCO Associate Professional Member Role: PCP Address: Address: [address] [place] [address]- Name: Edenilson Puckett MD Position: [facility] INSURANCE CLAIM APPROVER MD Member Role: Lifetime INSURANCE CLAIM APPROVER Physician Address: Address: [address] [place] [id number]- [place] Name: Jovana Park RN Position: S RN Member Role: Primary Care Nurse Name: Chidi Clark DO Position: [facility] Renal MD Member Role: Lifetime Consulting Physician Address: Address: [address] [place], [place] [address] [place] [address]- Name: Mireya Torres RN Position: S RN Member Role: Primary Care Nurse Name: Kelly Maddox RN Position: S RN Member Role: Primary Care Nurse Care Team Related Persons Name: KAYLAH MARYA Address: home [address] [place] [address] Name: MORALES HOWELL Address: home [address] [place] [id number]
--- OUTSIDE RECORDS SUMMARY | 2023-09-12 11:39 | XMS_ITS | Continuity of Care Document ---
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 Start Date: 05/12/22 Status: Ordered albuterol CFC free 90 mcg/inh inhalation aerosol 2, puffs, Inhalation, 4 times a day, PRN, Dispense brand as required by insurance, # 18 Gm, [id number], Tot. Refills 11, Maintenance, 05/12/22 11:38:00 EST, Aerosol, Route to Pharmacy Electronically, [id number], [facility]... Start Date: 05/12/22 Status: Ordered albuterol-ipratropium 3 mg-0.5 mg/3 ml inhalation solution 1 vials, Inhalation, 4 times a day, # 180 mL, 11 Refills, Maintenance, 05/12/22 11:38:00 EST, [facility] #[id number], 15, 1 vials Inhalation 4 times a [...] 11 Refills, Maintenance, 03/01/22 16:04:00 EST, Capsule, [facility] #98003, Partial fill upon patient request if the [...] tablet, 11 Refills, Maintenance, 09/25/21 11:17:00 EDT, [facility] #[id number], 165, cm, 09/25/21 11:04:00 EDT, Height, 96, [...] each, 11 Refills, Maintenance, 09/25/21 11:17:00 EDT, [place], [facility] #27553, 1 sprays Nares, Both 2 times a day,x30 days, 165, cm, 09/25/21 11:04:00 EDT, Height, 96, kg, 07/13/21 10:52:00 EDT, Dry... Start Date: 09/25/21 Stop Date: 09/20/22 Status: Ordered Flovent HFA 220 mcg/inh inhalation aerosol 2 puffs, Inhalation, 2 times a day, # 12 Gm, 11 Refills, Maintenance, 05/19/22 13:39:00 EST, Aerosol, [facility] #04879, Partial fill upon patient request if the [...] 05/12/22 11:38:00 EST, Route to Pharmacy Electronically, [facility] #[id number], 168, cm, 05/12/2310:30:00 EST, Height, 85, kg, [...] Team Personnel Name: Tristin Hunt RN Position: [facility] RN Member Role: Primary Care Nurse Name: Lisseth Nassar NP Position: [facility] PCO Associate Professional Member Role: PCP Address: Address: [address] [place] [address]- Name: Edenilson Puckett MD Position: [facility] JUSTICE COURT JUDGE MD Member Role: Lifetime JUSTICE COURT JUDGE Physician Address: Address: [address] [place] [address]- Name: Jovana Park RN Position: [facility] RN Member Role: Primary Care Nurse Name: Chidi Clark DO Position: [facility] Renal MD Member Role: Lifetime Consulting Physician Address: Address: [address] [place] [address] [address] [facility] [place], [place] [address] Name: Mireya Torres RN Position: S RN Member Role: Primary Care Nurse Name: Kelly Maddox RN Position: S RN Member Role: Primary Care Nurse Care Team Related Persons Name: MARYA ADRIAN Address: home [address] [place] [address] Name: MORALES HOWELL Address: home [address] [place] [address]
--- OUTSIDE RECORDS SUMMARY | 2023-09-12 11:39 | XMS_ITS | Continuity of Care Document ---
Author Organization [facility] Address [address] [place] [address]- Care Team Providers Care Academic Success Coordinator Name Role Phone Cesario VALDEZ, Lisseth Hancock Primary Care Physician [place] [facility] [place] Date(s): 06/20/19 - 08/20/[address] [address] [facility] Discharge Disposition: A-D/C Home Attending Physician: Lisseth Nassar NP Admitting Physician: Lisseth Nassar NP Referring Physician: Lisseth Nassar NP Allergies, Adverse Reactions, Alerts Substance Reaction Severity Status sulfADIAZINE rash Active morphine rash & swelling Active sertraline 1 QT wave change Active sulfa drugs rash Active Bactrim rash Active NSAIDs 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 Refills 11, Maintenance, 11/24/17 13:49:05 EDT, Aerosol, Route to Pharmacy Electronically, [id number], [facility] [address], Compound Start Date: 11/24/17 Status: Ordered albuterol-ipratropium 3 mg-0.5 mg/3 ml inhalation solution 1 vials, Inhalation, 4 times a day, # 180 mL, 5 Refills, Maintenance, 07/30/19 11:02:00 EDT, [facility] #[id number], 15, INHALE CONTENTS OF 1 VIAL VIA NEBULIZER FOUR TIMES DAILY, 167.64, cm, 04/24/19 16:16:00 EST, Height, 100.4, kg, 08/03/18 10:1... Start Date: 07/30/19 Status: Ordered amLODIPine 10 mg oral tablet 1 tablet, By Mouth, Daily, # 30 tablet, 2 Refills, Maintenance, 06/15/19 9:43:00 EDT, [facility] #85885, 167.64, cm, 04/24/19 16:16:00 EST, Height, 100.4, kg, 08/03/18 10:14:00 EDT, Dry Weight Start Date: 06/15/19 Status: Ordered baclofen 10 mg oral tablet 1, tablet, By Mouth, 3 times a day, # 60 tablet, Refills 2, Tot. Refills 2, Maintenance, 06/14/19 9:10:00 EDT, Route to Pharmacy Electronically, [facility] #75674, 167.64, cm, 04/24/19 16:16:00 EST, Height, 100.4, [...] 5 Refills, Maintenance, 04/16/19 13:06:00 EST, Tablet, [facility] #93133, 167.64, cm, 03/02/19 10:23:00 EST, Height, 100.4, [...] Maintenance, surgical, calf length 30-40 mm Hg, 07/01/19 16:16:14 EDT, [place]x R60.0, [facility] Start Date: 09/11/18 Status: Ordered Deep Sea Nasal 0.65% nasal spray See Instructions, SPRAY TWICE IN EACH NOSTRIL FOUR TIMES DAILY, # 44 mL, 0 Refills, Maintenance, [facility], 29, SPRAY TWICE IN EACH NOSTRIL FOUR [...] each, 5 Refills, Maintenance, 06/05/18 19:53:47 EDT, [place], 1 sprays Nares, Both 2 times a [...] 11 Refills, Maintenance, 03/02/19 10:19:00 EST, Capsule, [id number] #63763, 1 capsule By Mouth Daily, 167.64, cm, [...] 4 HOURS NEEDED FOR NAUSEA OR VOMITING, [facility] #18548 Start Date: 12/05/18 Status: Ordered raised toilet [...] Maintenance, 06/02/17 13:39:59, Route to Pharmacy Electronically, [id number], [facility] [address] Start Date: 06/02/17 Status: Ordered Transfer Bench [...]
--- OUTSIDE RECORDS SUMMARY | 2023-09-12 11:39 | XMS_ITS | Continuity of Care Document ---
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 Start Date: 03/19/19 Stop Date: 05/18/19 Status: Ordered baclofen 10 mg oral tablet 10 mg, 1, tablet, By Mouth, 3 times a day, # 60 tablet, Refills 2, Tot. Refills 2, Maintenance, 09/11/18 16:10:46 EDT, Route to Pharmacy Electronically, [id number], [facility] [address] Start Date: 09/11/18 Status: Ordered Bedside Commode [...] each, 5 Refills, Maintenance, 06/05/18 19:53:47 EDT, [place], 1 sprays Nares, Both 2 times a [...] 11 Refills, Maintenance, 03/02/19 10:19:00 EST, Capsule, [facility] #92525, 1 capsule By Mouth Daily, 167.64, cm, [...] 4 HOURS NEEDED FOR NAUSEA OR VOMITING, [facility] #18381 Start Date: 12/05/18 Status: Ordered raised toilet [...] Maintenance, 06/02/17 13:39:59, Route to Pharmacy Electronically, [id number], [facility] [address] Start Date: 06/02/17 Status: Ordered Transfer Bench [...]
--- OUTSIDE RECORDS SUMMARY | 2023-09-12 11:39 | XMS_ITS | Continuity of Care Document ---
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 Start Date: 10/19/21 Status: Ordered albuterol-ipratropium 3 mg-0.5 mg/3 ml inhalation solution 1 vials, Inhalation, 4 times a day, # 180 mL, 5 Refills, Maintenance, 07/30/19 11:02:00 EDT, [facility] #[id number], 15, INHALE CONTENTS OF 1 VIAL VIA [...] 10/12/21 16:19:00 EDT, Route to Pharmacy Electronically, [facility] #[id number], 165, cm, 09/25/21 11:04:00EDT, Height, 96, kg, 07/13/21 10:52:00 EDT, Dry Weight Start Date: 10/12/21 Status: Ordered amlodipine-benazepril 5 mg-10 mg oral capsule 1 capsule, By Mouth, Daily, To replace prior prescription (amlodipine)., # 30 capsule, 11 Refills, Maintenance, 04/23/21 14:51:00 EST, Capsule, [facility] #08659, Partial fill upon patient request if the prescription is for a schedule II opi... Start Date: 04/23/21 Status: Ordered aspirin 81 mg oral delayed release tablet 81 mg, 1, tablet, By Mouth, Daily, # 30 tablet, Refills 5, Tot. Refills 5, Maintenance, 11/02/19 11:39:00 EDT, Route to Pharmacy Electronically, [facility] #04638, 167.64, cm, 11/02/19 10:58:00 EDT, Height, 100.4, [...] tablet, 11 Refills, Maintenance, 09/25/21 11:17:00 EDT, [facility] #60420, 165, cm, 09/25/21 11:04:00 EDT, Height, 96, [...] each, 11 Refills, Maintenance, 09/25/21 11:17:00 EDT, [place], [facility] #99259, 1 sprays Nares, Both 2 times a [...] Acute 03/13/22 14:45:00 EST, 03/20/2213:45:00 EST, Ointment, [facility] #14503, Partial fill upon patient request if the [...] 11 Refills, Maintenance, 03/02/19 10:19:00 EST, Capsule, [facility] #36010, 1 capsule By Mouth Daily, 167.64, cm, [...] 0 Refills, Maintenance, 10/19/21 12:07:00 EDT, Tablet, [facility] #37369, Par... Start Date: 10/19/21 Status: Ordered Paxlovid 150 mg-100 mg oral tablet See Instructions, 300mg nirmatrelvir (two 150mg tablets) with 100mg ritonavir (one tablet). All 3 tablets taken together twice daily By Mouth for 5 days, with or without food, # 30 tablet, 0 Refills,Maintenance, 10/18/21 16:41:00 EDT, [facility] Start Date: 10/18/21 Status: Ordered Prevacid [...] 09/25/21 11:17:00 EDT, Route to Pharmacy Electronically, [facility] #06642, 165, cm, 09/25/2210:04:00 EDT, Height, 96, kg, 07/13/21 10:52:00 EDT... Start Date: 09/25/21 Status: Ordered tiZANidine 2 mg oral tablet 2 mg, 1, tablet, By Mouth, Every 8 hours, PRN, # 90 tablet, Refills 3, Tot. Refills 3, Maintenance,as needed for muscle spasm, 06/18/21 10:33:00 EDT, Route to Pharmacy Electronically, [facility] #48225, Partial fill upon patient request, 16... Start [...]
--- OUTSIDE RECORDS SUMMARY | 2023-09-12 11:39 | XMS_ITS | Continuity of Care Document ---
Author Organization [facility] ter Address [address] [place] [address]- Care Team Providers Care Community Center Worker Name Role Phone Lisseth Nassar NP Primary Care Physician [phone] [place]counter [facility] [place] Date(s): 08/04/21 - 09/20/[address] [address] Attending Physician: Lisseth Nassar NP Admitting Physician: Lisseth Nassar NP Referring Physician: Lisseth Nassar NP Allergies, Adverse Reactions, Alerts Substance Reaction Severity Status sulfADIAZINE rash Active sertraline 1 QT wave change Active sulfa drugs rash Active NSAIDs 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 Active fentanyl topical passed out Active Bactrim rash Active 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 Immunizations Given and Recorded Vaccine Date [...] 5 Refills, Maintenance, 05/07/19 10:46:00 EST, Solution, [facility] #49513, 167.64, cm, 04/24/19 16:16:00 EST, Height, 100.4, kg, 08/03/18 10:14:00 EDT, Dry Weight Start Date: 05/07/19 Status: Ordered albuterol-ipratropium 3 mg-0.5 mg/3 ml inhalation solution 1 vials, Inhalation, 4 times a day, # 180 mL, 5 Refills, Maintenance, 07/30/19 11:02:00 EDT, [facility] #44172, 15, INHALE CONTENTS OF 1 VIAL VIA [...] 11 Refills, Maintenance, 04/23/21 14:51:00 EST, Capsule, [facility] #68286, Partial fill upon patient request if the prescription is for a schedule II opi... Start Date: 04/23/21 Status: Ordered aspirin 81 mg oral delayed release tablet 81 mg, 1, tablet, By Mouth, Daily, # 30 tablet, Refills 5, Tot. Refills 5, Maintenance, 11/02/19 11:39:00 EDT, Route to Pharmacy Electronically, [facility] #82501, 167.64, cm, 11/02/19 10:58:00 EDT, Height, 100.4, [...] tablet, 11 Refills, Maintenance, 01/11/20 10:43:00 EDT, [facility] #34857, 167.64, cm, 11/12/19 15:34:00 EDT, Height, 100.4, [...] each, 5 Refills, Maintenance, 06/05/18 19:53:47 EDT, [place], 1 sprays Nares, Both 2 times a [...] Acute 03/13/22 14:45:00 EST, 03/20/2213:45:00 EST, Ointment, [facility] #[id number], Partial fill upon patient request if the [...] 11 Refills, Maintenance, 03/02/19 10:19:00 EST, Capsule, [facility] #08328, 1 capsule By Mouth Daily, 167.64, cm, [...] back pain; may fill less; fill on/after 09/10/2021, # 130 tablet, 0 Refills,Acute 03/13/22 16:39:00 EST, 09/09/21 16:39:00 EDT,... Start Date: 09/09/21 Stop Date: 03/13/22 Status: Ordered oxyCODONE 15 [...] Maintenance, 06/02/17 13:39:59, Route to Pharmacy Electronically, [id number], [facility] [address] Start Date: 06/02/17 Status: Ordered tiZANidine 2 mg oral tablet 2 mg, 1, tablet, By Mouth, Every 8 hours, PRN, # 90 tablet, Refills 3, Tot. Refills 3, Maintenance,as needed for muscle spasm, 06/18/21 10:33:00 EDT, [facility] to Pharm[facility] Electronically, [id number], Partial fill upon patient request, 16... Start [...]
--- OUTSIDE RECORDS SUMMARY | 2023-09-12 11:39 | XMS_ITS | Continuity of Care Document ---
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 Refills 11, Maintenance, 11/24/17 13:49:05 EDT, Aerosol, Route to Pharmacy Electronically, [id number], [facility] [address], Compound Start Date: 11/24/17 Status: Ordered albuterol-ipratropium 3 mg-0.5 mg/3 ml inhalation solution 1 vials, Inhalation, 4 times a day, # 180 mL, 5 Refills, Maintenance, 07/30/19 11:02:00 EDT, [facility] #73344, 15, INHALE CONTENTS OF 1 VIAL VIA NEBULIZER FOUR TIMES DAILY, 167.64, cm, 04/24/19 16:16:00 EST, Height, 100.4, kg, 08/03/18 10:1... Start Date: 07/30/19 Status: Ordered amLODIPine 10 mg oral tablet 1 tablet, By Mouth, Daily, # 30 tablet, 5 Refills, Maintenance, 05/06/20 12:30:00 EST, [facility] #45658, 167.64, cm, 03/25/20 14:59:00 EST, Height, 100.4, kg, 08/03/18 10:14:00 EDT, Dry Weight Start Date: 05/06/20 Status: Ordered aspirin 81 mg oral delayed release tablet 81 mg, 1, tablet, By Mouth, Daily, # 30 tablet, Refills 5, Tot. Refills 5, Maintenance, 11/02/19 11:39:00 EDT, Route to Pharmacy Electronically, [facility] #53046, 167.64, cm, 11/02/19 10:58:00 EDT, Height, 100.4, kg, 08/03/18 10:14:00 EDT,... Start Date: 11/02/19 Status: Ordered bacitracin topical 500 u/gm ointment 1 application, Topically, 4 times a day, # 30 Gm, 0 Refills, Maintenance, 09/02/20 15:20:00 EDT, Ointment, [facility] #64601, Partial fill upon patient request if the prescription is for a schedule II opioid drug., 1 application Topically 4... Start Date: 09/02/20 Stop Date: 09/12/20 Status: Ordered baclofen 10 mg oral tablet 1, tablet, By Mouth, 3 times a day, # 60 tablet, Refills 0, Tot. Refills 0, Maintenance, 02/25/20 13:59:00 EST, Route to Pharmacy Electronically, [facility] #[id number], 167.64, cm, 11/12/19 15:34:00 EDT, Height, 100.4, [...] tablet, 11 Refills, Maintenance, 01/11/20 10:43:00 EDT, [facility] #95799, 167.64, cm, 11/12/19 15:34:00 EDT, Height, 100.4, [...] mL, 0 Refills, Maintenance, [facility]293[facility], 29, SPRAY TWICE IN EACH NOSTRIL FOUR [...] each, 5 Refills, Maintenance, 06/05/18 19:53:47 EDT, [place], 1 sprays Nares, Both 2 times a [...] 11 Refills, Maintenance, 03/02/19 10:19:00 EST, Capsule, [facility] #08186, 1 capsule By Mouth Daily, 167.64, cm, [...] 4 HOURS NEEDED FOR NAUSEA OR VOMITING, [facility] #25935 Start Date: 12/05/18 Status: Ordered raised toilet [...] Maintenance, 06/02/17 13:39:59, Route to Pharmacy Electronically, [id number], [facility] [address] Start Date: 06/02/17 Status: Ordered tiZANidine 2 mg oral tablet 2 mg, 1, tablet, By Mouth, Every 8 hours, PRN, # 90 tablet, Refills 3, Tot. Refills 3, Maintenance,as needed for muscle spasm, 02/08/20 9:24:00 EST, Route to Pharmacy Electronically, [facility] #77589, Partial fill upon patient request, 167... Start [...]
--- OUTSIDE RECORDS SUMMARY | 2023-09-12 11:39 | XMS_ITS | Continuity of Care Document ---
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 Immunizations Given and Recorded Vaccine Date [...] 5 Refills, Maintenance, 05/07/19 10:46:00 EST, Solution, [facility] #58971, 167.64, cm, 04/24/19 16:16:00 EST, Height, 100.4, kg, 08/03/18 10:14:00 EDT, Dry Weight Start Date: 05/07/19 Status: Ordered albuterol-ipratropium 3 mg-0.5 mg/3 ml inhalation solution 1 vials, Inhalation, 4 times a day, # 180 mL, 5 Refills, Maintenance, 07/30/19 11:02:00 EDT, [facility] #20554, 15, INHALE CONTENTS OF 1 VIAL VIA [...] 11 Refills, Maintenance, 04/23/21 14:51:00 EST, Capsule, [facility] #45113, Partial fill upon patient request if the prescription is for a schedule II opi... Start Date: 04/23/21 Status: Ordered aspirin 81 mg oral delayed release tablet 81 mg, 1, tablet, By Mouth, Daily, # 30 tablet, Refills 5, Tot. Refills 5, Maintenance, 11/02/19 11:39:00 EDT, Route to Pharmacy Electronically, [facility] #87819, 167.64, cm, 11/02/19 10:58:00 EDT, Height, 100.4, [...] tablet, 11 Refills, Maintenance, 01/11/20 10:43:00 EDT, [facility] #25865, 167.64, cm, 11/12/19 15:34:00 EDT, Height, 100.4, [...] each, 5 Refills, Maintenance, 06/05/18 19:53:47 EDT, [place], 1 sprays Nares, Both 2 times a [...] Acute 03/13/22 14:45:00 EST, 03/20/2213:45:00 EST, Ointment, [facility] #72506, Partial fill upon patient request if the [...] 11 Refills, Maintenance, 03/02/19 10:19:00 EST, Capsule, [facility] #03905, 1 capsule By Mouth Daily, 167.64, cm, [...] Maintenance, 06/02/17 13:39:59, Route to Pharmacy Electronically, [id number], [facility] [address] Start Date: 06/02/17 Status: Ordered tiZANidine 2 mg oral tablet 2 mg, 1, tablet, By Mouth, Every 8 hours, PRN, # 90 tablet, Refills 3, Tot. Refills 3, Maintenance,as needed for muscle spasm, 06/18/21 10:33:00 EDT, [facility]ically, [facility]92, Partial fill upon patient request, 16... Start [...]
--- OUTSIDE RECORDS SUMMARY | 2023-09-12 11:40 | XMS_ITS | Continuity of Care Document ---
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 Start Date: 05/12/22 Status: Ordered albuterol CFC free 90 mcg/inh inhalation aerosol 2, puffs, Inhalation, 4 times a day, PRN, Dispense brand as required by insurance, # 18 Gm, [id number], Tot. Refills 11, Maintenance, 05/12/22 11:38:00 EST, Aerosol, Route to Pharmacy Electronically, [id number], [facility]... Start Date: 05/12/22 Status: Ordered albuterol-ipratropium 3 mg-0.5 mg/3 ml inhalation solution 1 vials, Inhalation, 4 times a day, # 180 mL, 11 Refills, Maintenance, 05/12/22 11:38:00 EST, [facility] #[id number], 15, 1 vials Inhalation 4 times a [...] 11 Refills, Maintenance, 03/01/22 16:04:00 EST, Capsule, [facility] #[id number], Partial fill upon patient request if the prescription is for a schedule II opi... Start Date: 03/01/22 Stop Date: 02/13/25 Status: Ordered apixaban 2.5 mg oral tablet 1 tablet = 2.5 mg, By Mouth, 2 times a day, # 60 tablet, 0 Refills, Maintenance, 05/28/22 8:20:00 EDT, Tablet, [facility] 3, Partial fill upon patient request if [...] tablet, 11 Refills, Maintenance, 09/25/21 11:17:00 EDT, [facility] #[id number], 165, cm, 09/25/21 11:04:00 EDT, Height, 96, [...] each, 11 Refills, Maintenance, 09/25/21 11:17:00 EDT, [place], [facility] #[id number], 1 sprays Nares, Both 2 times a day,x30 days, 165, cm, 09/25/21 11:04:00 EDT, Height, 96, kg, 07/13/21 10:52:00 EDT, Dry... Start Date: 09/25/21 Stop Date: 09/20/22 Status: Ordered Flovent HFA 220 mcg/inh inhalation aerosol 2 puffs, Inhalation, 2 times a day, # 12 Gm, 11 Refills, Maintenance, 05/19/22 13:39:00 EST, Aerosol, [facility] #[id number], Partial fill upon patient request if the [...] 05/12/22 11:38:00 EST, Route to Pharmacy Electronically, [facility][id number], 168, cm, 05/12/2310:30:00 EST, Height, 85, kg, [...] Team Personnel Name: Tristin Hunt RN Position: [facility] RN Member Role: Primary Care Nurse Name: Lisseth Nassar NP Position: [facility] PCO Associate Professional Member Role: PCP Address: Address: [address] [place] [address]- Name: Edenilson Puckett MD Position: [facility] BIKE DESIGNER MD Member Role: Lifetime BIKE DESIGNER Physician Address: Address: [address] [place] [address]- Name: Jovana Park RN Position: S RN Member Role: Primary Care Nurse Name: Chidi Clark DO Position: [facility] Renal MD Member Role: Lifetime Consulting Physician Address: Address: [address] [place] [address] [address] [facility] [place] [address]- Name: Mireya Torres RN Position: S RN Member Role: Primary Care Nurse Name: Kelly Maddox RN Position: S RN Member Role: Primary Care Nurse Care Team Related Persons Name: KAYLAH MARYA Address: home [address] [place] [address] Name: MORALES HOWELL Address: home [address] [place] [address]
--- OUTSIDE RECORDS SUMMARY | 2023-09-12 11:40 | XMS_ITS | Continuity of Care Document ---
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 fentanyl topical passed out Active Haldol Agitation Active Bactrim rash Active 1 changed my QT interval has a dinker Immunizations Given and Recorded Vaccine Date Status [...] 08/24/23 12:23:00 EDT, Route to Pharmacy Electronically, [facility], Partial fill upon [...] 08/03/23 8:28:00 EDT, Tablet, [facility] #[id number], Partial fill upon patient request if [...] 11 Refills, Maintenance, 04/29/23 9:44:00 EST, Powder, [facility] #[id number], Partial fill upon patient request if the [...] 08/24/23 12:23:00 EDT, Route to Pharmacy Electronically, [facility], Partial fill upon patient request [...] 01/26/23 14:02:00 EST, Route to Pharmacy Electronically, [facility] #[id number], 165, cm, 01/26/23 13:31:00 EST, Height, 88.2, [...] Team Personnel Name: Siria Lopes RN Position: [facility] RN Member Role: Primary Care Nurse Name: Tristin Hunt RN Position: [facility] RN Member Role: Primary Care Nurse Name: Lisseth Nassar NP Position: [facility] PCO Associate Professional Member Role: PCP Address: Address: [address] [place] [address]- Name: Edenilson Puckett MD Position: [facility] RIVET TAPPING MACHINE OPERATOR MD Member Role: Lifetime RIVET TAPPING MACHINE OPERATOR Physician Address: Address: [address] [place] [address]- Name: Jovana Park RN Position: [facility] SN RN Member Role: Primary Care Nurse Name: Ana Maria Grady RN Position: [facility] RN Member Role: Primary Care Nurse Name: Chidi Clark DO Position: [facility] Renal MD Member Role: Lifetime Consulting Physician Address: Address: [address] [place], [place] [address]E [facility] [place] [address]- Name: Mireya Torres RN Position: [facility] RN Member Role: Primary Care Nurse Name: Starr Harper RN Position: [facility] CLEMENTE Nurse Member Role: Primary Care Nurse Name: Tristin Hill RN Position: [facility] RN Member Role: Primary Care Nurse Name: Kelly Maddox RN Position: [facility] RN Member Role: Primary Care Nurse Care Team Related Persons Name: MARYA ADRIAN Address: [place] [address] Name: MORALES HOWELL Address: home [address] [place] [address]
--- OUTSIDE RECORDS SUMMARY | 2023-09-12 11:40 | XMS_ITS | Continuity of Care Document ---
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 Refills 11, Maintenance, 11/24/17 13:49:05 EDT, Aerosol, Route to Pharmacy Electronically, [id number], [facility], Compound Start Date: 11/24/17 Status: Ordered albuterol-ipratropium 3 mg-0.5 mg/3 ml inhalation solution 1 vials, Inhalation, 4 times a day, # 180 mL, 5 Refills, Maintenance, 07/30/19 11:02:00 EDT, [facility] #[id number], 15, INHALE CONTENTS OF 1 VIAL VIA NEBULIZER FOUR TIMES DAILY, 167.64, cm, 04/24/19 16:16:00 EST, Height, 100.4, kg, 08/03/18 10:1... Start Date: 07/30/19 Status: Ordered amLODIPine 10 mg oral tablet 1 tablet, By Mouth, Daily, # 90 tablet, 1 Refills, Maintenance, 01/27/21 9:34:00 EST, [facility] #[id number], 167.64, cm, 09/03/20 14:59:00 EDT, Height Start Date: 01/27/21 Status: Ordered aspirin 81 mg oral delayed release tablet 81 mg, 1, tablet, By Mouth, Daily, # 30 tablet, Refills 5, Tot. Refills 5, Maintenance, 11/02/19 11:39:00 EDT, Route to Pharmacy Electronically, [facility] #66057, 167.64, cm, 11/02/19 10:58:00 EDT, Height, 100.4, kg, 08/03/18 10:14:00 EDT,... Start Date: 11/02/19 Status: Ordered bacitracin topical 500 u/gm ointment 1 application, Topically, 4 times a day, # 30 Gm, 0 Refills, Maintenance, 09/02/20 15:20:00 EDT, Ointment, [facility] #[id number], Partial fill upon patient request if the prescription is for a schedule II opioid drug., 1 application Topically 4... Start Date: 09/02/20 Stop Date: 09/12/20 Status: Ordered baclofen 10 mg oral tablet 1, tablet, By Mouth, 3 times a day, # 60 tablet, Refills 0, Tot. Refills 0, Maintenance, 02/25/20 13:59:00 EST, Route to Pharmacy Electronically, [facility] #[id number], 167.64, cm, 11/12/19 15:34:00 EDT, Height, 100.4, [...] tablet, 11 Refills, Maintenance, 01/11/20 10:43:00 EDT, [facility] #[id number], 167.64, cm, 11/12/19 15:34:00 EDT, Height, 100.4, [...] Maintenance, [facility] #[id number], 29, SPRAY TWICE IN EACH NOSTRIL FOUR [...] each, 5 Refills, Maintenance, 06/05/18 19:53:47 EDT, [place], 1 sprays Nares, Both 2 times a [...] 11 Refills, Maintenance, 03/02/19 10:19:00 EST, Capsule, [facility] #62268, 1 capsule By Mouth Daily, 167.64, cm, [...] 4 HOURS NEEDED FOR NAUSEA OR VOMITING, [facility] #[id number] Start Date: 12/05/18 Status: Ordered raised toilet [...] Maintenance, 06/02/17 13:39:59, Route to Pharmacy Electronically, [id number], [id number] Start Date: 06/02/17 Status: Ordered tiZANidine 2 mg oral tablet 2 mg, 1, tablet, By Mouth, Every 8 hours, PRN, # 90 tablet, Refills 3, Tot. Refills 3, Maintenance,as needed for muscle spasm, 01/30/21 8:11:00 EST, Route to Pharmacy Electronically, [facility] #[id number], Partial fill upon patient request, 167... Start [...]
--- OUTSIDE RECORDS SUMMARY | 2023-09-12 11:40 | XMS_ITS | Continuity of Care Document ---
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 Start Date: 10/19/21 Status: Ordered albuterol-ipratropium 3 mg-0.5 mg/3 ml inhalation solution 1 vials, Inhalation, 4 times a day, # 180 mL, 5 Refills, Maintenance, 07/30/19 11:02:00 EDT, [facility] #[id number], 15, INHALE CONTENTS OF 1 VIAL VIA [...] tablet, 11 Refills, Maintenance, 12/07/21 8:02:00 EDT, [facility] #[id number], 165, cm, 10/27/21 1:44:00 EDT, Height, 90.9, kg, 10/27/21 1:44:00 EDT, Dry Weight Start Date: 12/07/21 Status: Ordered amlodipine-benazepril 5 mg-10 mg oral capsule 1 capsule, By Mouth, Daily, To replace prior prescription (amlodipine)., # 90 capsule, 11 Refills, Maintenance, 03/01/22 16:04:00 EST, Capsule, [facility] #[id number], Partial fill upon patient request if the prescription is for a schedule II opi... Start Date: 03/01/22 Stop Date: 02/13/25 Status: Ordered aspirin 81 mg oral delayed release tablet 81 mg, 1, tablet, By Mouth, Daily, # 30 tablet, Refills 5, Tot. Refills 5, Maintenance, 11/02/19 11:39:00 EDT, Route to Pharmacy Electronically, [facility] #[id number], 167.64, cm, 11/02/19 10:58:00 EDT, Height, 100.4, kg, 08/03/18 10:14:00 EDT,... Start Date: 11/02/19 Status: Ordered baclofen 10 mg oral tablet 10 mg, 1, tablet, By Mouth, Daily at bedtime, # 30 tablet, Refills 5, Tot. Refills 5, Maintenance, 02/09/22 13:45:00 EST, Route to Pharmacy Electronically, [facility] #[id number], Partial fill upon patient request if the [...] tablet, 11 Refills, Maintenance, 09/25/21 11:17:00 EDT, [facility] #[id number], 165, cm, 09/25/21 11:04:00 EDT, Height, 96, [...] each, 11 Refills, Maintenance, 09/25/21 11:17:00 EDT, [place], [facility] #[id number], 1 sprays Nares, Both 2 times a day,x30 days, 165, cm, 09/25/21 11:04:00 EDT, Height, 96, kg, 07/13/21 10:52:00 EDT, Dry... Start Date: 09/25/21 Stop Date: 09/20/22 Status: Ordered fluconazole 150 mg oral tablet 1 tablet = 150 mg, By Mouth, Once, Repeat dose if still having symptoms in 72 hours, # 2 tablet, 0 Refills, Soft Stop, 02/09/22 13:43:00 EST, Tablet, [facility] #03725, Partial fill upon patient request if the [...] 11 Refills, Maintenance, 03/02/19 10:19:00 EST, Capsule, [facility] #72120, 1 capsule By Mouth Daily, 167.64, cm, [...] 0 Refills, Maintenance, 03/24/22 16:10:00 EST, Tablet, [facility] #[id number], [place]... Start Date: 03/24/22 Stop Date: 04/14/22 Status: Ordered Paxlovid 150 mg-100 mg oral tablet See Instructions, 300mg nirmatrelvir (two 150mg tablets) with 100mg ritonavir (one tablet). All 3 tablets taken together twice daily By Mouth for 5 days, with or without food, # 30 tablet, 0 Refills,Maintenance, 10/18/21 16:41:00 EDT, [facility]... Start Date: 10/18/21 Status: Ordered Prevacid [...] 09/25/21 11:17:00 EDT, Route to Pharmacy Electronically, [facility] #[id number], 165, cm, 09/25/2210:04:00 EDT, Height, 96, kg, 07/13/21 10:52:00 EDT... Start Date: 09/25/21 Status: Ordered tiZANidine 2 mg oral tablet 2 mg, 1, tablet, By Mouth, Every 8 hours, PRN, # 90 tablet, Refills 3, Tot. Refills 3, Maintenance,as needed for muscle spasm, 06/18/21 10:33:00 EDT, Route to Pharmacy Electronically, [facility] #[id number], Partial fill upon patient request, 16... Start [...] Team Personnel Name: Lisseth Nassar NP Position: [facility] PCO Associate Professional Member Role: PCP Address: Address: [address] [place] [address]- Name: Lavern SPENCER, Edenilson Chen Position: [facility] TRADE SHOW COORDINATOR MD Member Role: Lifetime TRADE SHOW COORDINATOR Physician Address: Address: [address] [place], [place] [address] [place] [address]- Name: Chidi Clark DO Position: [facility] Renal MD Member Role: Lifetime Consulting Physician Address: Address: [address] [place] [address] [address] [facility] [place] [address]- [place] Name: Starr Harper RN Position: [facility] RN Member Role: Primary Care Nurse Care Team Related Persons Name: MARYA ADRIAN Address: home [address] [place] [address]
--- OUTSIDE RECORDS SUMMARY | 2023-09-12 11:40 | XMS_ITS | Continuity of Care Document ---
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 Start Date: 01/26/23 Status: Ordered albuterol CFC free 90 mcg/inh inhalation aerosol 2, puffs, Inhalation, 4 times a day, PRN, Dispense brand as required by insurance, # 1 each, Refills 11, Tot. Refills 11, Maintenance, 01/26/23 14:00:00 EST, Aerosol, Route to Pharmacy Electronically, [id number], [facility]. Start Date: 01/26/23 Status: Ordered albuterol-ipratropium 3 mg-0.5 mg/3 ml inhalation solution 1 vials, Inhalation, 4 times a day, # 180 mL, 11 Refills, Maintenance, 01/27/23 9:25:00 EST, [facility] #[id number], 15, 1 vials Inhalation 4 times a [...] tablet, 6 Refills, Maintenance, 12/07/22 16:46:00 EDT, [facility] #56848, 165, cm, 12/06/22 17:39:00 EDT, Height, 88.2, kg, 05/26/22 7:52:00EDT, Dry Weight Start Date: 12/07/22 Status: Ordered amlodipine-benazepril 5 mg-10 mg oral capsule 1 capsule, By Mouth, Daily, To replace prior prescription (amlodipine)., # 90 capsule, 11 Refills, Maintenance, 03/01/22 16:04:00 EST, Capsule, [facility] #38742, Partial fill upon patient request if the [...] tablet, 3 Refills, Maintenance, 01/26/23 14:00:00 EST, [facility] #[id number], 165, cm, 01/26/23 13:31:00 EST, Height, 88.2, [...] each, 11 Refills, Maintenance, 09/25/21 11:17:00 EDT, [place], [facility] #[id number], 1 sprays Nares, Both 2 times a day,x30 days, 165, cm, 09/25/21 11:04:00 EDT, Height, 96, kg, 07/13/21 10:52:00 EDT, Dry... Start Date: 09/25/21 Stop Date: 09/20/22 Status: Ordered fluconazole 150 mg oral tablet 1 tablet = 150 mg, By Mouth, Once, Repeat dose if still having symptoms in 72 hours, # 2 tablet, 1 Refills, Soft Stop, 01/26/23 14:19:00 EST, Tablet, [facility] #31515, Partial fill upon patient request if the [...] 11 Refills, Maintenance, 01/26/23 14:04:00 EST, Aerosol, [facility] #[id number], Partial fill upon patient request if the prescription is for a s... Start Date: 01/26/23 Status: Ordered mupirocin 2% topical ointment 1 application, Topically, 3 times a day, # 30 Gm, 2 Refills, Acute 03/13/23 15:24:00 EST, 09/01/22 15:23:00 EDT, Ointment, [facility] #[id number], Partial fill upon patient request if the [...] capsule, 4 Refills, Maintenance, 01/26/23 14:02:00 EST, [facility] #06784, 165, cm, 01/26/23 13:31:00 EST, Height, 88.2, [...] 01/26/23 14:02:00 EST, Route to Pharmacy Electronically, [facility] #[id number], 165, cm, 01/26/23 13:31:00 EST, Height, 88.2, [...] Team Personnel Name: Tristin Hunt RN Position: [facility] RN Member Role: Primary Care Nurse Name: Lisseth Nassar NP Position: [facility] PCO Associate Professional Member Role: PCP Address: Address: [address] [place] [address]- Name: Edenilson Puckett MD Position: [facility] BARBER MD Member Role: Lifetime BARBER Physician Address: Address: [address] [place] [address]- Name: Jovana Park RN Position: [facility] RN Member Role: Primary Care Nurse Name: Chidi Clark DO Position: [facility] Renal MD Member Role: Lifetime Consulting Physician Address: Address: [address] [place] [address] [address] [facility] [place] [address]- Name: Mireya Torres RN Position: [facility] RN Member Role: Primary Care Nurse Name: Starr Harper RN Position: [facility] SN RN Member Role: Primary Care Nurse Name: Kelly Maddox RN Position: [facility] RN Member Role: Primary Care Nurse Care Team Related Persons Name: KAYLAHMARYA SULTANA Address: [address] [address] Name: MORALES HOWELL Address: home [address] [place] [address]
--- OUTSIDE RECORDS SUMMARY | 2023-09-12 11:40 | XMS_ITS | Continuity of Care Document ---
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 Start Date: 01/26/23 Status: Ordered albuterol CFC free 90 mcg/inh inhalation aerosol 2, puffs, Inhalation, 4 times a day, PRN, Dispense brand as required by insurance, # 1 each, Refills 11, Tot. Refills 11, Maintenance, 01/26/23 14:00:00 EST, Aerosol, Route to Pharmacy Electronically, [id number], [facility]. Start Date: 01/26/23 Status: Ordered albuterol-ipratropium 3 mg-0.5 mg/3 ml inhalation solution 1 vials, Inhalation, 4 times a day, # 180 mL, 11 Refills, Maintenance, 01/27/23 9:25:00 EST, [facility] #[id number], 15, 1 vials Inhalation 4 times a [...] tablet, 6 Refills, Maintenance, 12/07/22 16:46:00 EDT, [facility] #[id number], 165, cm, 12/06/22 17:39:00 EDT, Height, 88.2, kg, 05/26/22 7:52:00EDT, Dry Weight Start Date: 12/07/22 Status: Ordered amlodipine-benazepril 5 mg-10 mg oral capsule 1 capsule, By Mouth, Daily, To replace prior prescription (amlodipine)., # 90 capsule, 11 Refills, Maintenance, 03/01/22 16:04:00 EST, Capsule, [facility] #[id number], Partial fill upon patient request if the [...] tablet, 3 Refills, Maintenance, 01/26/23 14:00:00 EST, [facility] #[id number], 165, cm, 01/26/23 13:31:00 EST, Height, 88.2, [...] each, 11 Refills, Maintenance, 09/25/21 11:17:00 EDT, [place], [facility] #[id number], 1 sprays Nares, Both 2 times a day,x30 days, 165, cm, 09/25/21 11:04:00 EDT, Height, 96, kg, 07/13/21 10:52:00 EDT, Dry... Start Date: 09/25/21 Stop Date: 09/20/22 Status: Ordered fluconazole 150 mg oral tablet 1 tablet = 150 mg, By Mouth, Once, Repeat dose if still having symptoms in 72 hours, # 2 tablet, 1 Refills, Soft Stop, 01/26/23 14:19:00 EST, Tablet, [facility] #[id number], Partial fill upon patient request if the [...] 11 Refills, Maintenance, 01/26/23 14:04:00 EST, Aerosol, [facility] #[id number], Partial fill upon patient request if the prescription is for a s... Start Date: 01/26/23 Status: Ordered mupirocin 2% topical ointment 1 application, Topically, 3 times a day, # 30 Gm, 2 Refills, Acute 03/13/23 15:24:00 EST, 09/01/22 15:23:00 EDT, Ointment, [facility] #[id number], Partial fill upon patient request if the [...] capsule, 4 Refills, Maintenance, 01/26/23 14:02:00 EST, [facility] #[id number], 165, cm, 01/26/23 13:31:00 EST, Height, 88.2, [...] 01/26/23 14:02:00 EST, Route to Pharmacy Electronically, [facility] #[id number], 165, cm, 01/26/23 13:31:00 EST, Height, 88.2, [...] Team Personnel Name: Tristin Hunt RN Position: [facility] RN Member Role: Primary Care Nurse Name: Lisseth Nassar NP Position: [facility] PCO Associate Professional Member Role: PCP Address: Address: [address] [place] [address]- Name: Edenilson Puckett MD Position: [facility] ORDINARY SEAMAN MD Member Role: Lifetime ORDINARY SEAMAN Physician Address: Address: [address] [place] [address]- Name: Jovana Park RN Position: [facility] RN Member Role: Primary Care Nurse Name: Chidi Clark DO Position: [facility] Renal MD Member Role: Lifetime Consulting Physician Address: Address: [address] [place] [address] [address] [facility] [place] [address]- Name: Mireya Torres RN Position: S RN Member Role: Primary Care Nurse Name: Starr Harper RN Position: [facility] SN RN Member Role: Primary Care Nurse Name: Kelly Maddox RN Position: S RN Member Role: Primary Care Nurse Care Team Related Persons Name: KAYLAH MARYA Address: home [address] [place] [address] Name: LYNDA MORALES Address: home [address] [place] [address]
--- OUTSIDE RECORDS SUMMARY | 2023-09-12 11:40 | XMS_ITS | Continuity of Care Document ---
Author Organization [facility] Address [address] [place] [address]- Care Team Providers Care Jinrikisha Driver Name Role Phone Cesario VALDEZ, Lisseth Hancock Primary Care Physician [place] [facility] [place] - 03/18/[address] [address]- Attending Physician: Not on Staff, Attending MD Allergies, Adverse Reactions, Alerts Substance Reaction Severity Status sulfADIAZINE rash Active sertraline 1 QT wave change Active fentanyl topical passed out Active sulfa drugs rash Active Bactrim rash Active NSAIDs She can't take NSAIDs secondary to gastri c bypass Active 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 Start Date: 10/19/21 Status: Ordered albuterol-ipratropium 3 mg-0.5 mg/3 ml inhalation solution 1 vials, Inhalation, 4 times a day, # 180 mL, 5 Refills, Maintenance, 07/30/19 11:02:00 EDT, [facility] #[id number], 15, INHALE CONTENTS OF 1 VIAL VIA [...] tablet, 11 Refills, Maintenance, 12/07/21 8:02:00 EDT, [facility] #[id number], 165, cm, 10/27/21 1:44:00 EDT, Height, 90.9, kg, 10/27/21 1:44:00 EDT, Dry Weight Start Date: 12/07/21 Status: Ordered amlodipine-benazepril 5 mg-10 mg oral capsule 1 capsule, By Mouth, Daily, To replace prior prescription (amlodipine)., # 90 capsule, 11 Refills, Maintenance, 03/01/22 16:04:00 EST, Capsule, [facility] #[id number], Partial fill upon patient request if the prescription is for a schedule II opi... Start Date: 03/01/22 Stop Date: 02/13/25 Status: Ordered aspirin 81 mg oral delayed release tablet 81 mg, 1, tablet, By Mouth, Daily, # 30 tablet, Refills 5, Tot. Refills 5, Maintenance, 11/02/19 11:39:00 EDT, Route to Pharmacy Electronically, [facility] #[id number], 167.64, cm, 11/02/19 10:58:00 EDT, Height, 100.4, kg, 08/03/18 10:14:00 EDT,... Start Date: 11/02/19 Status: Ordered baclofen 10 mg oral tablet 10 mg, 1, tablet, By Mouth, Daily at bedtime, # 30 tablet, Refills 5, Tot. Refills 5, Maintenance, 02/09/22 13:45:00 EST, Route to Pharmacy Electronically, [facility] #[id number], Partial fill upon patient request if the [...] tablet, 11 Refills, Maintenance, 09/25/21 11:17:00 EDT, [facility] #[id number], 165, cm, 09/25/21 11:04:00 EDT, Height, 96, [...] each, 11 Refills, Maintenance, 09/25/21 11:17:00 EDT, [place], [facility] #[id number], 1 sprays Nares, Both 2 times a day,x30 days, 165, cm, 09/25/21 11:04:00 EDT, Height, 96, kg, 07/13/21 10:52:00 EDT, Dry... Start Date: 09/25/21 Stop Date: 09/20/22 Status: Ordered fluconazole 150 mg oral tablet 1 tablet = 150 mg, By Mouth, Once, Repeat dose if still having symptoms in 72 hours, # 2 tablet, 0 Refills, Soft Stop, 02/09/22 13:43:00 EST, Tablet, [facility] #[id number], Partial fill upon patient request if the [...] 11 Refills, Maintenance, 03/02/19 10:19:00 EST, Capsule, [facility] #[id number], 1 capsule By Mouth Daily, 167.64, cm, [...] 0 Refills, Maintenance, 03/10/22 10:18:00 EST, Tablet, [facility] #[id number], [place]... Start Date: 03/10/22 Stop Date: 03/31/22 Status: Ordered Paxlovid 150 mg-100 mg oral tablet See Instructions, 300mg nirmatrelvir (two 150mg tablets) with 100mg ritonavir (one tablet). All 3 tablets taken together twice daily By Mouth for 5 days, with or without food, # 30 tablet, 0 Refills,Maintenance, 10/18/21 16:41:00 EDT, [facility] Start Date: 10/18/21 Status: Ordered Prevacid [...] 09/25/21 11:17:00 EDT, Route to Pharmacy Electronically, [facility] #[id number], 165, cm, 09/25/2210:04:00 EDT, Height, 96, kg, 07/13/21 10:52:00 EDT... Start Date: 09/25/21 Status: Ordered tiZANidine 2 mg oral tablet 2 mg, 1, tablet, By Mouth, Every 8 hours, PRN, # 90 tablet, Refills 3, Tot. Refills 3, Maintenance,as needed for muscle spasm, 06/18/21 10:33:00 EDT, Route to Pharmacy Electronically, [facility] #[id number], Partial fill upon patient request, 16... Start [...] team information Care Team Personnel Name: Cesario VALDEZ, Lisseth Hancock Position: [facility] PCO Associate Professional Member Role: PCP Address: Address: [address] [place] [address]- Name: Lavern SPENCER, Edenilson Chen Position: [facility] FIELD WORKER MD Member Role: Lifetime FIELD WORKER Physician Address: Address: [address] [place] [address]- [place] Name: Chidi Clark DO Position: [facility] Renal MD Member Role: Lifetime Consulting Physician Address: Address: [address] [place] [address] [address] [facility] [place] [address]- [place] Name: Meredith VASQUEZ, Starr Position: [facility] RN Member Role: Primary Care Nurse Care Team Related Persons Name: MARYA ADRIAN Address: home [address] [place] [address]
--- OUTSIDE RECORDS SUMMARY | 2023-09-12 11:41 | XMS_ITS | Continuity of Care Document ---
Author Organization [facility] ter Address [address] [place] [address]- Care Team Providers Care Cover Marker Name Role Phone Cesario VALDEZ, Lisseth Hancock Primary Care Physician Encounter [facility] Date(s): 09/21/22 - 10/30/[address] [address] Attending Physician: Jay Vogel NP Admitting Physician: Jay Vogel NP Referring Physician: Lela VALDEZ, Jay Nickerson Allergies, Adverse Reactions, Alerts Substance Reaction Severity Status sulfADIAZINE rash Active sertraline 1 QT wave change Active sulfa drugs rash Active NSAIDs She can't take NSAIDs secondary to gastri c bypass Active fentanyl topical passed out Active Haldol Agitation Active Bactrim rash Active 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 Start Date: 05/12/22 Status: Ordered albuterol CFC free 90 mcg/inh inhalation aerosol 2, puffs, Inhalation, 4 times a day, PRN, Dispense brand as required by insurance, # 18 Gm, [id number], Tot. Refills 11, Maintenance, 05/12/22 11:38:00 EST, Aerosol, Route to Pharmacy Electronically, [id number], [facility]... Start Date: 05/12/22 Status: Ordered albuterol-ipratropium 3 mg-0.5 mg/3 ml inhalation solution 1 vials, Inhalation, 4 times a day, # 180 mL, 11 Refills, Maintenance, 05/12/22 11:38:00 EST, [facility] #[id number], 15, 1 vials Inhalation 4 times a [...] 11 Refills, Maintenance, 03/01/22 16:04:00 EST, Capsule, [facility] #[id number], Partial fill upon patient request if the prescription is for a schedule II opi... Start Date: 03/01/22 Stop Date: 02/13/25 Status: Ordered apixaban 2.5 mg oral tablet 1 tablet = 2.5 mg, By Mouth, 2 times a day, # 60 tablet, 0 Refills, Maintenance, 05/28/22 8:20:00 EDT, Tablet, [facility], Partial fill upon patient request [...] tablet, 11 Refills, Maintenance, 09/25/21 11:17:00 EDT, [facility] #[id number], 165, cm, 09/25/21 11:04:00 EDT, Height, 96, [...] each, 11 Refills, Maintenance, 09/25/21 11:17:00 EDT, [place], [facility] #[id number], 1 sprays Nares, Both 2 times a day,x30 days, 165, cm, 09/25/21 11:04:00 EDT, Height, 96, kg, 07/13/21 10:52:00 EDT, Dry... Start Date: 09/25/21 Stop Date: 09/20/22 Status: Ordered Flovent HFA 220 mcg/inh inhalation aerosol 2 puffs, Inhalation, 2 times a day, # 12 Gm, 11 Refills, Maintenance, 05/19/22 13:39:00 EST, Aerosol, [facility] #[id number], Partial fill upon patient request if the [...] 03/13/23 15:24:00 EST, 09/01/22 15:23:00 EDT, Ointment, [facility] #[id number], Partial fill upon patient request if the [...] 05/12/22 11:38:00 EST, Route to Pharmacy Electronically, [facility] #[id number], 168, cm, 05/12/2310:30:00 EST, Height, 85, kg, [...] Care Nurse Name: Lisseth Nassar NP Position: [facility] PCO Associate Professional Member Role: PCP Address: Address: [address] [place] [address]- Name: Edenilson Puckett MD Position: [facility] SAFETY LEAD MD Member Role: Lifetime SAFETY LEAD Physician Address: Address: [address] [place] [address]- Name: Jovana Park RN Position: S RN Member Role: Primary Care Nurse Name: Chidi Clark DO Position: [facility] Renal MD Member Role: Lifetime Consulting Physician Address: Address: [address] [place], [place] [address] [place] [address]- Name: Mireya Torres RN Position: S RN Member Role: Primary Care Nurse Name: Kelly Maddox RN Position: S RN Member Role: Primary Care Nurse Care Team Related Persons Name: MARYA ADRIAN Address: home [address] [place] [address] Name: MORALES HOWELL Address: home [address] [place] [address]
--- OUTSIDE RECORDS SUMMARY | 2023-09-12 11:41 | XMS_ITS | Continuity of Care Document ---
Author Organization 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 Refills 11, Maintenance, 11/24/17 13:49:05 EDT, Aerosol, Route to Pharmacy Electronically, [id number], [facility] [id number], Compound Start Date: 11/24/17 Status: Ordered albuterol-ipratropium 3 mg-0.5 mg/3 ml inhalation solution 1 vials, Inhalation, 4 times a day, # 180 mL, 5 Refills, Maintenance, 07/30/19 11:02:00 EDT, [facility] #[id number], 15, INHALE CONTENTS OF 1 VIAL VIA NEBULIZER FOUR TIMES DAILY, 167.64, cm, 04/24/19 16:16:00 EST, Height, 100.4, kg, 08/03/18 10:1... Start Date: 07/30/19 Status: Ordered amlodipine-benazepril 5 mg-10 mg oral capsule 1 capsule, By Mouth, Daily, To replace prior prescription (amlodipine)., # 30 capsule, 11 Refills, Maintenance, 04/23/21 14:51:00 EST, Capsule, [facility] #[id number], Partial fill upon patient request if the prescription is for a schedule II opi... Start Date: 04/23/21 Status: Ordered aspirin 81 mg oral delayed release tablet 81 mg, 1, tablet, By Mouth, Daily, # 30 tablet, Refills 5, Tot. Refills 5, Maintenance, 11/02/19 11:39:00 EDT, Route to Pharmacy Electronically, [facility] #[id number], 167.64, cm, 11/02/19 10:58:00 EDT, Height, 100.4, kg, 08/03/18 10:14:00 EDT,... Start Date: 11/02/19 Status: Ordered bacitracin topical 500 u/gm ointment 1 application, Topically, 4 times a day, # 30 Gm, 0 Refills, Maintenance, 09/02/20 15:20:00 EDT, Ointment, [facility] #[id number], Partial fill upon patient request if the prescription is for a schedule II opioid drug., 1 application Topically 4... Start Date: 09/02/20 Stop Date: 09/12/20 Status: Ordered baclofen 10 mg oral tablet 1, tablet, By Mouth, 3 times a day, # 60 tablet, Refills 0, Tot. Refills 0, Maintenance, 02/25/20 13:59:00 EST, Route to Pharmacy Electronically, [facility] #[id number], 167.64, cm, 11/12/19 15:34:00 EDT, Height, 100.4, [...] tablet, 11 Refills, Maintenance, 01/11/20 10:43:00 EDT, [facility] #[id number], 167.64, cm, 11/12/19 15:34:00 EDT, Height, 100.4, [...] DAILY, # 44 mL, 0 Refills, Maintenance, [facility][id number], 29, SPRAY TWICE IN EACH NOSTRIL FOUR [...] 07/18/20 12:54:00 EDT, Route to Pharmacy Electronically, [facility] Start Date: 07/18/20 Stop Date: 07/13/21 Status: Ordered Flonase 50 mcg/inh nasal spray 1 sprays, Nares, Both, 2 times a day, # 1 each, 5 Refills, Maintenance, 06/05/18 19:53:47 EDT, [place], 1 sprays Nares, Both 2 times a [...] Acute 03/13/22 14:45:00 EST, 03/20/2213:45:00 EST, Ointment, [facility][id number], Partial fill upon patient request if the [...] 11 Refills, Maintenance, 03/02/19 10:19:00 EST, Capsule, [facility] #[id number], 1 capsule By Mouth Daily, 167.64, cm, [...] 4 HOURS NEEDED FOR NAUSEA OR VOMITING, [facility] #[id number] Start Date: 12/05/18 Status: Ordered raised toilet [...] Maintenance, 06/02/17 13:39:59, Route to Pharmacy Electronically, [id number], [facility] [address] Start Date: 06/02/17 Status: Ordered tiZANidine 2 mg oral tablet 2 mg, 1, tablet, By Mouth, Every 8 hours, PRN, # 90 tablet, Refills 3, Tot. Refills 3, Maintenance,as needed for muscle spasm, 01/30/21 8:11:00 EST, Route to Pharmacy Electronically, [facility] #[id number], Partial fill upon patient request, 167... Start [...]
== END 2023-09-12 13:38 | disposition home or self-care (01) ==
LOC: HO.HGI 11:13
PROVIDERS: PCP Nurse Practitioner Family; Visit Provider Internal Medicine Gastroenterology
DX: R10.13 Epigastric pain (principal)
CPT/HCPCS: 99442

== ENCOUNTER → 2023-09-12 11:13 | Outpatient (BNVA) | payer MEDICARE, MEDICAID, SELFPAY | PROVIDERS: PCP Nurse Practitioner Family; Visit Provider Internal Medicine Gastroenterology ==

== ENCOUNTER 2023-10-14 13:58 | Outpatient (AMB) | payer MEDICARE, MEDICAID, SELFPAY ==
--- NOTE | 2023-10-14 14:18 | MHC.OFFVIS ---
Vital Signs 10/14/23 14:19 Height 5 ft 5.5 in Weight 158 lb BMI 25.9 BP 126/84 Blood Pressure Location Lt brachial Position Sitting Pulse 70 Pulse Source Pulse Oximeter Pulse Oximetry (%) 100 Oxygen Delivery Method Room Air Intake Visit Reasons: Hypertension Nurse Healthcare Manager Required: No Accompanied by: Self / Same As Patient Allergies sertraline [From ZOLOFT] Allergy (Intermediate, Verified 10/14/23 14:21) prolonged QT interval Sulfa (Sulfonamide Antibiotics) [SULFA (SULFONAMIDE ANTIBIOTICS)] Allergy (Intermediate, Verified 10/14/23 14:21) RASH haloperidol [From Haldol] Allergy (Mild, Verified 10/14/23 14:21) unknown morphine [MORPHINE] Allergy (Mild, Verified 10/14/23 14:21) Rash NSAIDS (Non-Steroidal Anti-Inflamma [NSAIDS (NON-STEROIDAL ANTI-INFLAMMA] Adverse Reaction (Intermediate, Verified 10/14/23 14:21) STOMACH UPSET fentanyl patch Allergy (Severe, Uncoded 09/16/23 13:27) Unresponsive HPI Comments Details: 46 years old with history of chronic gastritis, anxiety, depression, history of lap band removal, hypertension, FLOWER, bipolar disorder as well as interstitial cystitis who follows up closely with Urology was seen consultation for her cystitis as well as hypertension. She has normal renal functions. She claimed to have family history of renal dysfunction ( Mom). There was no family history of any sensorineural deafness, Alport syndrome, thin membrane disease. She is not a diabetic. 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 She denies taking excessive nonsteroidal anti-inflammatories. She recently had NSTEMI and had cardiac catheterization. Her blood pressure is not well controlled. [facility] Medical History Burn injury Arthritis Low back pain Elevated cholesterol SOB (shortness of breath) Asthma Numbness Mood disorder IBS (irritable bowel syndrome) OAB (overactive bladder) HTN (hypertension) Sleep apnea Hypersomnia Anxiety Surgical History Hx of gastric bypass Hx of total knee replacement Hx of knee surgery Hx of hernia repair History of cystoscopy Hx of laparoscopic gastric banding Hx of hysterectomy History of H/O gastric bypass Hx of endoscopy History of colonoscopy Family History Father Hx of colon cancer, stage IV Mother Family history of high blood pressure Social History Alcohol intake: never Comment: previously medicated Patient Tobacco Use Status: Never used Tobacco Substance Use Type: Marijuana Review of Systems Const All systems reviewed & are unremarkable except as noted in HPI and below Physical Exam Vital Signs: Last Vital Signs Pulse 70 10/14/23 14:19 BP 126/84 10/14/23 14:19 Pulse Ox 100 10/14/23 14:19 Oxygen Delivery Method Room Air 10/14/23 14:19 BMI result Body Mass Index 25.9 Const General: comfortable and no acute distress Orientation/consciousness: patient oriented x3 HEENT Head: Yes normocephalic Mouth: Normal oral and palatal mucosa present Eyes EOM: EOMs intact bilaterally Neck Neck: Yes supple Resp Auscultation: clear to auscultation bilaterally Cardio Jugular venous distension: no JVD Rate: regular rate GI Palpation (GI): Soft to palpation Auscultation: normal bowel sounds General: Yes no CVA tenderness Back/Spine/Pelvis Back: no CVA tenderness Skin General skin exam: no rashes or lesions noted Neuro General: patient oriented x3 and moves all extremities Extrem General: Yes no pedal edema Assessment & Plan Assessment & Plan (1) HTN (hypertension): Code(s): I10 - Essential (primary) hypertension Category: Medical Qualifiers: Hypertension type: primary hypertension Qualified Code(s): I10 - Essential (primary) hypertension Plan Her renal functions are normal. She had renal ultrasound which was normal. She has not known to have blood or protein in the urine. She is known to have interstitial cystitis for which she is closely followed up by her urologist. She avoids nonsteroidal anti-inflammatories . I increased her Carvedilol to 12.5 mg bid and asked to take lisinopril 10 mg in the middle of the day. Her serum potassium is normal. I did not make any other medication changes today.I answered all questions. Follow-up appointment given. Coding Level of Care Code Est Pt Level 4 (94929) Diagnoses Primary hypertension I10 Hypertension type: primary hypertension
[2023-10-14 14:19] VITALS: BP 126/84; PULSE 70; O2SAT 100; BMI 25.9
== END 2023-10-14 14:51 | disposition home or self-care (01) ==
PROVIDERS: PCP Nurse Practitioner Family; Visit Provider Internal Medicine Nephrology
DX: I10 Essential (primary) hypertension (principal)
CPT/HCPCS: 99214

== ENCOUNTER → 2023-10-14 13:58 | Outpatient (BNVA) | payer MEDICARE, MEDICAID, SELFPAY | PROVIDERS: PCP Nurse Practitioner Family; Visit Provider Internal Medicine Nephrology | DX: I10 Essential (primary) hypertension (principal) | CPT/HCPCS: 99212 ==

== ENCOUNTER 2023-10-21 09:27 | Outpatient (AMB) | payer MEDICARE, MEDICAID, SELFPAY ==
--- NOTE | 2023-10-21 09:27 | MHC.OFFVIS ---
Intake Visit Reasons: f/u Allergies sertraline [From ZOLOFT] Allergy (Intermediate, Verified 10/21/23 09:27) prolonged QT interval Sulfa (Sulfonamide Antibiotics) [SULFA (SULFONAMIDE ANTIBIOTICS)] Allergy (Intermediate, Verified 10/21/23 09:27) RASH haloperidol [From Haldol] Allergy (Mild, Verified 10/21/23 09:27) unknown morphine [MORPHINE] Allergy (Mild, Verified 10/21/23 09:27) Rash NSAIDS (Non-Steroidal Anti-Inflamma [NSAIDS (NON-STEROIDAL ANTI-INFLAMMA] Adverse Reaction (Intermediate, Verified 10/21/23 09:27) STOMACH UPSET fentanyl patch Allergy (Severe, Uncoded 10/21/23 09:27) Unresponsive HPI HPI f/u: Details: 48 yr old f being called for f/u RECAP: she has 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 sleep is poor, 4 hrs off and on she is on tramadol, having issues with constipation. once q4 days EGD 03/2018- gastritis also prior hx of kenalog trigger injection, hard to say if helped. she was given linaclotide to help with constipation GES---normal she was having ongoing issues with pain and was optimized on acid suppression with h2, PPI and carafate, was trying to get her movantik she represented 01/2019 to office with c/o worsening epigastric pain, nausea, and poor appetite with weight loss. using linaclotide helping her constipation, on fentanyl patch--goes every few days I offered her admission but she refused but she was dizzy so sent to ED, labs inc LFT, BMP, CBC were neg and CT was unremarkable without any acute pathology EGD then done 02/2019 with bx revealing chronic reflux damage and gastritis, looked like sandy but the stain was neg U/s 03/2019- liver normal, F0 on elastography, ?left kidney stone, Ba swallow 03/2019- patent GEJ, mild reflux pending urine 24 hr tests and metanephrines At f/u visit 05/2019--she was awaiting w/u for interstitial cystitis she was doing well with donantal and compazine capsule endoscopy was done and was neg was advised to try align, IBGARD, stress reduction She had cystoscopy with Dr Rodriguez for her IC she had surgery with removal of adhesions at [facility] 05/2021 and hiatal hernia repair she had ongoing problems and had EGD with gastritis, and bile reflux in stomach she is on trileptel for bipolar I ordered KUB with moderate stool burden Increased movantik to 25 mg but stopped it due to too much diarrhea she had kenalog injection to area of pain in abdomen, which she feels may have helped a little She had EGD/colon with Dr Allan 04/05 Marginal ulcer noted at [facility] colon was tortuous hyperplastic polyp removed with random colo bx with crypt distortion REPT EGD: 08/24/22 Hx of gastric bypass Findings: Larynx:normal Esophagus: GE junction at 37 cm, diaphragm hiatus at 37 cm, no varices or esophagitis. Stomach pouch: x 4 retained sola noted with mild superficial inflammation and erosions noted around 3 of these. These were removed with cold forceps and bx taken from the anastomotic site and the pouch. Overall appearances appeared improved as compared to before. Jejunum: Normal Intervention: Biopsies as noted above, removal of retained sola Impression/Findings: retained sola mild inflammation around anstomosis PLAN: cont with PPI I again scoped her for reassessment 02/15/23-- improved compared to before with chronic active inflammation at anastomosis i added ursodiol INTERIM: she feels like her bowels are having spasms, cramps having diarrhea, nausea, vomiting she can be normal for 2-3 weeks food makes her sx worse, she feels heart racing fast, pain but does not happen all the time then she has these attacks she is using scopolamine patches she has been having HTN and been getting treatment for this, has improved she is taking tami, TCA prn can have headaches -occipital EXAM: GENERAL: The patient is well developed and nontoxic. undistressed Assessments 1/ Tako tusbo possibly from stress, nausea --better now 2/ attacks of abdominal pain, diarrhea, nausea, uncertain etiology, ?adhesions, dumping syndrome, cyclic vomiting, central cause PLAN: 1/ cont to take open capsule esomeprazole and cont carafate 2/ cont levsin 3/ cont wiht cardiac meds, 4/ CT head 5/ small bowel f/ thru 6/ labs incl nutrient levels , hormone levels PFSH Medical History Burn injury Arthritis Low back pain Elevated cholesterol SOB (shortness of breath) Asthma Numbness Mood disorder IBS (irritable bowel syndrome) OAB (overactive bladder) HTN (hypertension) Sleep apnea Hypersomnia Anxiety Surgical History Hx of gastric bypass Hx of total knee replacement Hx of knee surgery Hx of hernia repair History of cystoscopy Hx of laparoscopic gastric banding Hx of hysterectomy History of H/O gastric bypass Hx of endoscopy History of colonoscopy Family History Father Hx of colon cancer, stage IV Mother Family history of high blood pressure Social History Alcohol intake: never Comment: previously medicated Patient Tobacco Use Status: Never used Tobacco Substance Use Type: Marijuana Telehealth Telehealth Telehealth Platform: [employer] Location of provider rendering services: practice address Location of patient: address on file Patient Identification confirmed using: Name, : Yes Telehealth method: video Patient verbally consented to treatment: Yes Patient verbally consented to billing insurance company: Yes Patient informed of any privacy concerns related to visit: Yes Minutes spent on Phone/Video with Pt.: 12 Assessment & Plan Assessment & Plan (1) Marginal ulcer: Code(s): K28.9 - Gastrojejunal ulcer, unspecified as acute or chronic, without hemorrhage or perforation Category: Medical Plan: see above (2) Headache: Code(s): R51.9 - Headache, unspecified Category: Medical Plan: see avoe (3) Malnutrition: Code(s): E46 - Unspecified protein-calorie malnutrition Category: Medical Plan: above Orders: Orders FL small bowel follow through Today K28.9 - Gastrojejunal ulcer, unspecified as acute or chronic, without hemorrhage or perforation, R51.9 - Headache, unspecified CT head/brain wo IV con Today R51.9 - Headache, unspecified C Reactive Protein Today E46 - Unspecified protein-calorie malnutrition, K28.9 - Gastrojejunal ulcer, unspecified as acute or chronic, without hemorrhage or perforation, R51.9 - Headache, unspecified Immunoglobulins,IgG IgA IgM Today E46 - Unspecified protein-calorie malnutrition, K28.9 - Gastrojejunal ulcer, unspecified as acute or chronic, without hemorrhage or perforation, R51.9 - Headache, unspecified Vitamin B5 (Pantothenic Acid) Today E46 - Unspecified protein-calorie malnutrition, K28.9 - Gastrojejunal ulcer, unspecified as acute or chronic, without hemorrhage or perforation, R51.9 - Headache, unspecified Vitamin D 25-OH Total Today E46 - Unspecified protein-calorie malnutrition, K28.9 - Gastrojejunal ulcer, unspecified as acute or chronic, without hemorrhage or perforation, R51.9 - Headache, unspecified Vitamin E Today E46 - Unspecified protein-calorie malnutrition, K28.9 - Gastrojejunal ulcer, unspecified as acute or chronic, without hemorrhage or perforation, R51.9 - Headache, unspecified Metanephrines, Plasma Today E46 - Unspecified protein-calorie malnutrition, K28.9 - Gastrojejunal ulcer, unspecified as acute or chronic, without hemorrhage or perforation, R51.9 - Headache, unspecified Tryptase Today E46 - Unspecified protein-calorie malnutrition, K28.9 - Gastrojejunal ulcer, unspecified as acute or chronic, without hemorrhage or perforation, R19.7 - Diarrhea, unspecified, R51.9 - Headache, unspecified TSH reflex Free T4 Today E46 - Unspecified protein-calorie malnutrition, K28.9 - Gastrojejunal ulcer, unspecified as acute or chronic, without hemorrhage or perforation, R51.9 - Headache, unspecified Calcium, Ionized Today E46 - Unspecified protein-calorie malnutrition, E83.52 - Hypercalcemia, K28.9 - Gastrojejunal ulcer, unspecified as acute or chronic, without hemorrhage or perforation, R51.9 - Headache, unspecified Histamine Plasma Today E46 - Unspecified protein-calorie malnutrition, K28.9 - Gastrojejunal ulcer, unspecified as acute or chronic, without hemorrhage or perforation, R51.9 - Headache, unspecified ANCA Vasculitides Today E46 - Unspecified protein-calorie malnutrition, K28.9 - Gastrojejunal ulcer, unspecified as acute or chronic, without hemorrhage or perforation, R51.9 - Headache, unspecified Somatostatin Today E46 - Unspecified protein-calorie malnutrition, K28.9 - Gastrojejunal ulcer, unspecified as acute or chronic, without hemorrhage or perforation, R51.9 - Headache, unspecified Vitamin B1 Today E46 - Unspecified protein-calorie malnutrition, K28.9 - Gastrojejunal ulcer, unspecified as acute or chronic, without hemorrhage or perforation, R51.9 - Headache, unspecified Vitamin B3 (Niacin) Today E46 - Unspecified protein-calorie malnutrition, K28.9 - Gastrojejunal ulcer, unspecified as acute or chronic, without hemorrhage or perforation, R51.9 - Headache, unspecified Vitamin B6 Today E46 - Unspecified protein-calorie malnutrition, K28.9 - Gastrojejunal ulcer, unspecified as acute or chronic, without hemorrhage or perforation, R51.9 - Headache, unspecified Vitamin C Today E46 - Unspecified protein-calorie malnutrition, K28.9 - Gastrojejunal ulcer, unspecified as acute or chronic, without hemorrhage or perforation, R51.9 - Headache, unspecified Vitamin K1 Today E46 - Unspecified protein-calorie malnutrition, K28.9 - Gastrojejunal ulcer, unspecified as acute or chronic, without hemorrhage or perforation, R51.9 - Headache, unspecified Zinc Today E46 - Unspecified protein-calorie malnutrition, K28.9 - Gastrojejunal ulcer, unspecified as acute or chronic, without hemorrhage or perforation, R51.9 - Headache, unspecified Vitamin B12 and Folate Today E46 - Unspecified protein-calorie malnutrition, K28.9 - Gastrojejunal ulcer, unspecified as acute or chronic, without hemorrhage or perforation, R51.9 - Headache, unspecified Vitamin A Today E46 - Unspecified protein-calorie malnutrition, K28.9 - Gastrojejunal ulcer, unspecified as acute or chronic, without hemorrhage or perforation, R51.9 - Headache, unspecified Ferritin Today E46 - Unspecified protein-calorie malnutrition, K28.9 - Gastrojejunal ulcer, unspecified as acute or chronic, without hemorrhage or perforation, R51.9 - Headache, unspecified Gastrin Today E46 - Unspecified protein-calorie malnutrition, K28.9 - Gastrojejunal ulcer, unspecified as acute or chronic, without hemorrhage or perforation, R51.9 - Headache, unspecified Glucagon Today E46 - Unspecified protein-calorie malnutrition, K28.9 - Gastrojejunal ulcer, unspecified as acute or chronic, without hemorrhage or perforation, R51.9 - Headache, unspecified Complete Blood Count Auto Diff Today E46 - Unspecified protein-calorie malnutrition, K28.9 - Gastrojejunal ulcer, unspecified as acute or chronic, without hemorrhage or perforation, R51.9 - Headache, unspecified Comprehensive Met. Panel Today E46 - Unspecified protein-calorie malnutrition, K28.9 - Gastrojejunal ulcer, unspecified as acute or chronic, without hemorrhage or perforation, K75.81 - Nonalcoholic steatohepatitis (CELIS), R51.9 - Headache, unspecified Creatine Kinase Total Today E46 - Unspecified protein-calorie malnutrition, K28.9 - Gastrojejunal ulcer, unspecified as acute or chronic, without hemorrhage or perforation, R51.9 - Headache, unspecified Calcitonin Today E46 - Unspecified protein-calorie malnutrition, K28.9 - Gastrojejunal ulcer, unspecified as acute or chronic, without hemorrhage or perforation, R51.9 - Headache, unspecified Angiotensin Converting Enzyme Today E46 - Unspecified protein-calorie malnutrition, K28.9 - Gastrojejunal ulcer, unspecified as acute or chronic, without hemorrhage or perforation, R51.9 - Headache, unspecified Aldolase Today E46 - Unspecified protein-calorie malnutrition, K28.9 - Gastrojejunal ulcer, unspecified as acute or chronic, without hemorrhage or perforation, R51.9 - Headache, unspecified Coding Level of Care Code Tele [facility] Pt Level 4 (69484) Diagnoses Marginal ulcer K28.9 Headache R51.9 Malnutrition E46
== END 2023-10-21 10:17 | disposition home or self-care (01) ==
LOC: HO.HGI 09:27
PROVIDERS: PCP Nurse Practitioner Family; Visit Provider Internal Medicine Gastroenterology
DX: K28.9 Gastrojejunal ulcer, unspecified as acute or chronic, without hemorrhage or perforation (principal); R51.9 Headache, unspecified; E46 Unspecified protein-calorie malnutrition
CPT/HCPCS: 99214

== ENCOUNTER → 2023-10-21 09:27 | Outpatient (BNVA) | payer MEDICARE, MEDICAID, SELFPAY | PROVIDERS: PCP Nurse Practitioner Family; Visit Provider Internal Medicine Gastroenterology ==

== ENCOUNTER 2023-10-26 11:34 | Outpatient (REF) | payer MEDICARE, MEDICAID, SELFPAY ==
[2023-10-26 13:14] LABS: MANUAL DIFF FLAG NO
[2023-10-26 13:44] LABS: Basophils Percent Auto 0.6 % (0-2); Eosinophils Absolute Auto 0.1 X10*3/uL (0.0-0.4); Eosinophils Percent Auto 1.7 % (0-4); Hematocrit 30.6 % (37.0-47.0); Hemoglobin 10.3 g/dl (12.0-16.0); Imm Gran Abs Auto 0.01 X10*3/uL (0.00-0.03); Imm Gran Pct Auto 0.2 % (0.0-0.4); Lymphocytes Absolute Auto 2.7 X10*3/uL (1.2-4.9); Mean Corpuscular HGB Conc 33.7 g/dl (31.0-35.0); Mean Corpuscular Hemoglobin 28.4 pg (27.0-33.0); Mean Corpuscular Volume 84.3 fL (80.0-98.0); Mean Platelet Volume 10.1 fL (9.4-12.3); Monocytes Absolute Auto 0.7 X10*3/uL (0.1-1.2); Monocytes Percent Auto 11.2 % (2-11); Neutrophils Absolute Auto 2.8 x10*3/uL (2.0-8.3); Neutrophils Percent Auto 44.3 % (45-73); Platelet Count 207 X10*3/uL (160-400); Red Blood Count 3.63 X10*6/uL (4.20-5.50); Red Cell Distribution Width 16.1 % (11.0-16.0); White Blood Count 6.4 X10*3/uL (4.8-10.8)
[2023-10-26 14:14] LABS: Alanine Aminotransferase 10 U/L (0-31); Albumin Level 4.4 g/dL (3.5-5.0); Alkaline Phosphatase 75 U/L (39-117); Anion Gap 13 (12-20); Aspartate Amino Transferase 18 U/L (5-31); Bilirubin Total 0.5 mg/dL (0.0-1.0); Blood Urea Nitrogen 15 mg/dL (9-16); C Reactive Protein 0.51 mg/dL (< or = 0.50); Calcium 9.5 mg/dL (8.4-10.2); Carbon Dioxide 27 mmol/L (22-29); Chloride 104 mmol/L (96-108); Estimated Glomerular Filt Rate 33; Glucose Random 86 mg/dL (60-115); Magnesium 1.9 mg/dL (1.6-2.6); Potassium 3.8 mmol/L (3.3-5.1); Sodium 140 mmol/L (135-145); Total Protein 7.6 g/dL (6.5-8.0)
[2023-10-26 14:31] LABS: Ferritin 28 ng/mL (10-250); Vitamin D 25-OH Total 24.8 ng/mL (>30)
[2023-10-26 14:42] LABS: Folate 10.8 ng/mL (> or = 4.0); Vitamin B12 272 pg/mL (200-900)
[2023-10-27 11:02] LABS: IgA 258 mg/dL (47-310); IgG 1377 mg/dL (600-1640); IgM 88 mg/dL (50-300)
[2023-10-28 15:04] LABS: Myeloperoxidase Antibody <1.0 AI; Proteinase 3 PR3 Antibodies <1.0 AI
[2023-10-29 12:04] LABS: Zinc 75 mcg/dL (60-130)
[2023-10-30 15:39] LABS: Gastrin 133 pg/mL (<=100)
[2023-10-31 12:19] LABS: Vitamin B6 10.3 ng/mL (2.1-21.7)
[2023-11-01 06:54] LABS: Vitamin C 1.3 mg/dL (0.3-2.7)
[2023-11-01 12:14] LABS: Vitamin A 57 mcg/dL (38-98)
[2023-11-01 16:03] LABS: Angiotensin Converting Enzyme 6.8 U/L (9-67)
[2023-11-01 16:18] LABS: Calcitonin <2 pg/mL (<=5)
[2023-11-01 18:48] LABS: Alpha-Tocopherol 10.5 mg/L (5.7-19.9); Beta-Gamma Tocopherol 1.1 mg/L (<=4.3)
[2023-11-01 20:33] LABS: Aldolase 5.7 U/L (<=8.1)
[2023-11-02 00:19] LABS: Metanephrine, Free 35 pg/mL (<=57); Normetanephrines, Free 126 pg/mL (<=148); Total Metanephrine, Free 161 pg/mL (<=205)
[2023-11-02 15:17] LABS: Vitamin B5 (Pantothenic Acid) <=40 ng/mL (<275)
[2023-11-02 17:42] LABS: Vitamin K1 162 pg/mL (130-1500)
[2023-11-03 11:03] LABS: Vitamin B1 10 nmol/L (8-30)
[2023-11-04 16:33] LABS: Histamine Plasma <1.5 ng/mL (< OR = 1.8)
[2023-11-05 15:58] LABS: Nicotinamide <20 ng/mL (see note); Vit B3 - Nicotinic Acid <20 ng/mL (see note)
== END 2023-10-26 11:35 | disposition home or self-care (01) ==
LOC: HO.LAB 11:34
PROVIDERS: Absent Provider Internal Medicine Gastroenterology; PCP Nurse Practitioner Family; Visit Provider Internal Medicine Nephrology
DX: K75.81 Nonalcoholic steatohepatitis (NASH) (principal); K28.9 Gastrojejunal ulcer, unspecified as acute or chronic, without hemorrhage or perforation; E46 Unspecified protein-calorie malnutrition; R19.7 Diarrhea, unspecified; R51.9 Headache, unspecified; E83.52 Hypercalcemia; I10 Essential (primary) hypertension
CPT/HCPCS: 36415; 80053; 82085; 82164; 82180; 82306; 82308; 82330; 82550; 82607; 82728; 82746; 82784; 82941; 82943; 83088; 83520; 83735; 83835; 84207; 84307; 84425; 84443; 84446; 84590; 84591; 84597; 84630; 85025; 86021; 86140; 99212

== ENCOUNTER 2023-10-26 11:34 | Outpatient (AMB) | payer MEDICARE, MEDICAID, SELFPAY ==
--- NOTE | 2023-10-26 11:39 | HO.NEPHOV_ITS ---
Vital Signs 10/26/23 11:51 Height 5 ft 5.5 in Weight 157 lb 6 oz BMI 25.8 Intake Visit Reasons: Hypertension/ Conf Operator Weapon Locating Radar Required: No Accompanied by: Self / Same As Patient Allergies sertraline [From ZOLOFT] Allergy (Intermediate, Verified 10/26/23 11:57) prolonged QT interval Sulfa (Sulfonamide Antibiotics) [SULFA (SULFONAMIDE ANTIBIOTICS)] Allergy (Intermediate, Verified 10/26/23 11:57) RASH haloperidol [From Haldol] Allergy (Mild, Verified 10/26/23 11:57) unknown morphine [MORPHINE] Allergy (Mild, Verified 10/26/23 11:57) Rash NSAIDS (Non-Steroidal Anti-Inflamma [NSAIDS (NON-STEROIDAL ANTI-INFLAMMA] Adverse Reaction (Intermediate, Verified 10/26/23 11:57) STOMACH UPSET fentanyl patch Allergy (Severe, Uncoded 10/21/23 09:27) Unresponsive HPI Comments Details: 46 years old with history of chronic gastritis, anxiety, depression, history of lap band removal, hypertension, FLOWER, bipolar disorder as well as interstitial cystitis who follows up closely with Urology for her cystitis was seen in follow up for hypertension. She has normal renal functions. She claimed to have family history of renal dysfunction ( Mom). There was no family history of any sensorineural deafness, Alport syndrome, thin membrane disease. She is not a diabetic. 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 She denies taking excessive nonsteroidal anti-inflammatories. She recently had NSTEMI and had cardiac catheterization. Her blood pressure is not well controlled and had an ER visit where they increased her lisinopril to 20 mg daily. [facility] Medical History Burn injury Arthritis Low back pain Elevated cholesterol SOB (shortness of breath) Asthma Numbness Mood disorder IBS (irritable bowel syndrome) OAB (overactive bladder) HTN (hypertension) Sleep apnea Hypersomnia Anxiety Surgical History Hx of gastric bypass Hx of total knee replacement Hx of knee surgery Hx of hernia repair History of cystoscopy Hx of laparoscopic gastric banding Hx of hysterectomy History of H/O gastric bypass Hx of endoscopy History of colonoscopy Family History Father Hx of colon cancer, stage IV Mother Family history of high blood pressure Social History Alcohol intake: never Comment: previously medicated Patient Tobacco Use Status: Never used Tobacco Substance Use Type: Marijuana Review of Systems Const All systems reviewed & are unremarkable except as noted in HPI and below Physical Exam Vital Signs: BMI result Body Mass Index 25.8 Const General: comfortable and no acute distress Orientation/consciousness: patient oriented x3 HEENT Head: Yes normocephalic Mouth: Normal oral and palatal mucosa present Eyes EOM: EOMs intact bilaterally Neck Neck: Yes supple Resp Auscultation: clear to auscultation bilaterally Cardio Jugular venous distension: no JVD Rate: regular rate GI Palpation (GI): Soft to palpation Auscultation: normal bowel sounds General: Yes no CVA tenderness Back/Spine/Pelvis Back: no CVA tenderness Skin General skin exam: no rashes or lesions noted Neuro General: patient oriented x3 and moves all extremities Extrem General: Yes no pedal edema Results Reviewed Nephrology Results: No Data to Display Assessment & Plan Assessment & Plan (1) HTN (hypertension): Code(s): I10 - Essential (primary) hypertension Category: Medical Qualifiers: Hypertension type: primary hypertension Qualified Code(s): I10 - Essential (primary) hypertension Plan Her renal functions are normal. She had renal ultrasound which was normal. She has not known to have blood or protein in the urine. She is known to have interstitial cystitis for which she is closely followed up by her urologist. She avoids nonsteroidal anti-inflammatories . C/W Carvedilol 12.5 mg bid and asked to take lisinopril 20 mg in the middle of the day. Her serum potassium is normal. I did not make any other medication changes today.I answered all questions. She has no renal reservations for a surgical procedure. Follow-up appointment given. Coding Level of Care Code Est Pt Level 4 (54184) Diagnoses Primary hypertension I10 Hypertension type: primary hypertension
[2023-10-26 11:51] VITALS: BMI 25.8
== END 2023-10-26 12:18 | disposition home or self-care (01) ==
PROVIDERS: PCP Nurse Practitioner Family; Visit Provider Internal Medicine Nephrology
DX: I10 Essential (primary) hypertension (principal)
CPT/HCPCS: 99214

== ENCOUNTER 2023-11-03 11:46 | Outpatient (AMB) | payer MEDICARE, MEDICAID, SELFPAY ==
--- NOTE | 2023-09-16 13:23 | A.OFFVIS_ITS ---
Intake Visit Reasons: IC- follow up Intake Note: Patient is present for IC F/U Urology Medication:OXYCODONE,GABAPE NTIN,PHENAZOPYRIDINE,TAALAFIL,AMITRIPTYLINE,FESOTERODINE Antibiotic Allergy:SULFA Blood Thinner:ASPIRIN Research Test Engine Operator Required: No Allergies sertraline [From ZOLOFT] Allergy (Intermediate, Verified 09/16/23 13:27) prolonged QT interval Sulfa (Sulfonamide Antibiotics) [SULFA (SULFONAMIDE ANTIBIOTICS)] Allergy (Intermediate, Verified 09/16/23 13:27) RASH haloperidol [From Haldol] Allergy (Mild, Verified 09/16/23 13:27) unknown morphine [MORPHINE] Allergy (Mild, Verified 09/16/23 13:27) Rash NSAIDS (Non-Steroidal Anti-Inflamma [NSAIDS (NON-STEROIDAL ANTI-INFLAMMA] Adverse Reaction (Intermediate, Verified 09/16/23 13:27) STOMACH UPSET fentanyl patch Allergy (Severe, Uncoded 09/16/23 13:27) Unresponsive [facility] Medical History Burn injury Arthritis Low back pain Elevated cholesterol SOB (shortness of breath) Asthma Numbness Mood disorder IBS (irritable bowel syndrome) OAB (overactive bladder) HTN (hypertension) Sleep apnea Hypersomnia Anxiety Surgical History Hx of gastric bypass Hx of total knee replacement Hx of knee surgery Hx of hernia repair History of cystoscopy Hx of laparoscopic gastric banding Hx of hysterectomy History of H/O gastric bypass Hx of endoscopy History of colonoscopy Family History Father Hx of colon cancer, stage IV Mother Family history of high blood pressure Social History Alcohol intake: never Comment: previously medicated Patient Tobacco Use Status: Never used Tobacco Substance Use Type: Marijuana Coding
--- NOTE | 2023-11-03 12:26 | MHC.OFFVIS ---
Intake Visit Reasons: IC- follow up Spray Gun Operator Required: No Allergies sertraline [From ZOLOFT] Allergy (Intermediate, Verified 12/12/23 11:28) prolonged QT interval Sulfa (Sulfonamide Antibiotics) [SULFA (SULFONAMIDE ANTIBIOTICS)] Allergy (Intermediate, Verified 12/12/23 11:28) RASH haloperidol [From Haldol] Allergy (Mild, Verified 12/12/23 11:28) unknown morphine [MORPHINE] Allergy (Mild, Verified 12/12/23 11:28) Rash NSAIDS (Non-Steroidal Anti-Inflamma [NSAIDS (NON-STEROIDAL ANTI-INFLAMMA] Adverse Reaction (Intermediate, Verified 12/12/23 11:28) STOMACH UPSET fentanyl patch Allergy (Severe, Uncoded 10/21/23 09:27) Unresponsive HPI Comments Details: Eboni is a pleasant female. She is a patient of Dr. Nassar. She is seen for the following urologic conditions - interstitial cystitis - recurring UTI Telemedicine Evaluation 15 min Consultation DoxEasy[employer] Jeramy Video attempted Hydrodistention performed Dr. Davis 05/07 Nocturia 2-4x Nephrology Interstitial cystitis Have used combination amitriptyline, gabapentin for frequent nocturia Post recent hydrodistention - hydrodistention performed in February 2019. persistent urgency frequency. States nocturia times 6-8. Trouble holding urine and accidents. 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 with cyclic nausea PFSH Medical History Burn injury Arthritis Low back pain Elevated cholesterol SOB (shortness of breath) Asthma Numbness Mood disorder IBS (irritable bowel syndrome) OAB (overactive bladder) HTN (hypertension) Sleep apnea Hypersomnia Anxiety Surgical History Hx of gastric bypass Hx of total knee replacement Hx of knee surgery Hx of hernia repair History of cystoscopy Hx of laparoscopic gastric banding Hx of hysterectomy History of H/O gastric bypass Hx of endoscopy History of colonoscopy Family History Father Hx of colon cancer, stage IV Mother Family history of high blood pressure Social History Alcohol intake: never Comment: previously medicated Patient Tobacco Use Status: Never used Tobacco Substance Use Type: Marijuana Review of Systems Const All systems reviewed & are unremarkable except as noted in HPI and below Reports no additional complaints Resp Reports no additional complaints GI Reports no additional complaints Reports as per HPI Musc Reports no additional complaints Physical Exam Telemedicine evaluation Appropriate responses Regular breathing rate and rhythm HEENT Head: Yes normal to inspection Ears: hearing grossly normal bilaterally Eyes General: appearance normal, both eyes and all related structures Neck Neck: Yes normal visual inspection Chest Chest palpation & inspection: normal inspection of the chest Resp Effort & Inspection: normal respiratory effort and able to speak in complete sentences Telehealth Telehealth Telehealth Platform: [employer] Location of provider rendering services: practice address Location of patient: address on file Patient Identification confirmed using: Name, : Yes Telehealth method: video Patient verbally consented to treatment: Yes Patient verbally consented to billing insurance company: Yes Patient informed of any privacy concerns related to visit: Yes Minutes spent on Phone/Video with Pt.: 15 Assessment & Plan Assessment & Plan (1) Interstitial cystitis: Code(s): N30.10 - Interstitial cystitis (chronic) without hematuria Category: Medical (2) Nocturia more than twice per night: Code(s): R35.1 - Nocturia Category: Medical (3) Chronic UTI (urinary tract infection): Code(s): N39.0 - Urinary tract infection, site not specified Category: Medical Plan Will call if pass flat Patient Instructions: Imaging studies, laboratory and physical exam results were discussed and reviewed in detail. No major barriers to patient understanding were identified. An opportunity to ask questions regarding the treatment plan was provided. All questions were answered. The patient expressed understanding and agreement with the above treatment plan. The patient is aware they should contact our office by phone for worsening of their current condition or the appearance of new urologic symptoms. Compliance is encouraged with any medications and followup testing that is ordered. It is a privilege to participate in the urologic care of your patient. If you have any questions or concerns regarding treatment for the above conditions, or other urologic issues, please do not hesitate to contact me. The office telephone contact is [phone]. This note is constructed using voice recognition software. While every effort has been made to ensure accuracy steamfitter supervisor errors may have been included. Yours sincerely, Dr Kenneth Rodriguez MD, DEE [facility] - Urology Providers of Expert, Compassionate Care for the Genitourinary System Coding Level of Care Code Tele Est Pt Level 3 (29937) Diagnoses Interstitial cystitis N30.10 Nocturia more than twice per night R35.1 Chronic UTI (urinary tract infection) N39.0
== END 2023-11-03 16:00 | disposition home or self-care (01) ==
LOC: HO.HUSH 11:46
PROVIDERS: PCP Nurse Practitioner Family; Visit Provider Urology
DX: N30.10 Interstitial cystitis (chronic) without hematuria (principal); R35.1 Nocturia; N39.0 Urinary tract infection, site not specified
CPT/HCPCS: 99213

== ENCOUNTER → 2023-11-03 11:46 | Outpatient (BNVA) | payer MEDICARE, MEDICAID, SELFPAY | PROVIDERS: PCP Nurse Practitioner Family; Visit Provider Urology ==

== ENCOUNTER 2023-11-16 10:39 | Outpatient (AMB) | payer MEDICARE, MEDICAID, SELFPAY ==
[2023-11-16 11:02] VITALS: BP 90/60; PULSE 67; O2SAT 99; BMI 24.9
--- NOTE | 2023-11-16 11:02 | HO.NEPHOV_ITS ---
Vital Signs 11/16/23 11:02 Height 5 ft 5.5 in Weight 152 lb 4 oz BMI 24.9 BP 90/60 Blood Pressure Location Lt brachial Position Sitting Pulse 67 Pulse Source Pulse Oximeter Pulse Oximetry (%) 99 Oxygen Delivery Method Room Air Intake Visit Reasons: Pt seen at [facility] on 11/07/23 Cone Examiner Required: No Accompanied by: Self / Same As Patient Allergies sertraline [From ZOLOFT] Allergy (Intermediate, Verified 11/16/23 11:04) prolonged QT interval Sulfa (Sulfonamide Antibiotics) [SULFA (SULFONAMIDE ANTIBIOTICS)] Allergy (Intermediate, Verified 11/16/23 11:04) RASH haloperidol [From Haldol] Allergy (Mild, Verified 11/16/23 11:04) unknown morphine [MORPHINE] Allergy (Mild, Verified 11/16/23 11:04) Rash NSAIDS (Non-Steroidal Anti-Inflamma [NSAIDS (NON-STEROIDAL ANTI-INFLAMMA] Adverse Reaction (Intermediate, Verified 11/16/23 11:04) STOMACH UPSET fentanyl patch Allergy (Severe, Uncoded 10/21/23 09:27) Unresponsive HPI Comments Details: 46 years old with history of chronic gastritis, anxiety, depression, history of lap band removal, hypertension, FLOWER, bipolar disorder as well as interstitial cystitis who follows up closely with Urology for her cystitis was seen in follow up for hypertension. She had normal renal functions but recently had MELANY. She claimed to have family history of renal dysfunction ( Mom). There was no family history of any sensorineural deafness, Alport syndrome, thin membrane disease. She is not a diabetic. 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 She denies taking excessive nonsteroidal anti-inflammatories. She recently had NSTEMI and had cardiac catheterization. Her blood pressure was not well controlled and had medication increase but her BP is on lower side now. She has MELANY recently. Her ACEI has been put on hold. [facility] Medical History Burn injury Arthritis Low back pain Elevated cholesterol SOB (shortness of breath) Asthma Numbness Mood disorder IBS (irritable bowel syndrome) OAB (overactive bladder) HTN (hypertension) Sleep apnea Hypersomnia Anxiety Surgical History Hx of gastric bypass Hx of total knee replacement Hx of knee surgery Hx of hernia repair History of cystoscopy Hx of laparoscopic gastric banding Hx of hysterectomy History of H/O gastric bypass Hx of endoscopy History of colonoscopy Family History Father Hx of colon cancer, stage IV Mother Family history of high blood pressure Social History Alcohol intake: never Comment: previously medicated Patient Tobacco Use Status: Never used Tobacco Substance Use Type: Marijuana Review of Systems Const All systems reviewed & are unremarkable except as noted in HPI and below Physical Exam Vital Signs: Last Vital Signs Pulse 67 11/16/23 11:02 BP 90/60 11/16/23 11:02 Pulse Ox 99 11/16/23 11:02 Oxygen Delivery Method Room Air 11/16/23 11:02 BMI result Body Mass Index 24.9 Const General: comfortable and no acute distress Orientation/consciousness: patient oriented x3 HEENT Head: Yes normocephalic Mouth: Normal oral and palatal mucosa present Eyes EOM: EOMs intact bilaterally Neck Neck: Yes supple Resp Auscultation: clear to auscultation bilaterally Cardio Jugular venous distension: no JVD Rate: regular rate GI Palpation (GI): Soft to palpation Auscultation: normal bowel sounds General: Yes no CVA tenderness Back/Spine/Pelvis Back: no CVA tenderness Skin General skin exam: no rashes or lesions noted Neuro General: patient oriented x3 and moves all extremities Extrem General: Yes no pedal edema Results Reviewed Nephrology Results: Hgb 10.3 g/dl (12.0-16.0) L 10/26/23 WBC 6.4 X10*3/uL (4.8-10.8) 10/26/23 Plt Count 207 X10*3/uL (160-400) 10/26/23 Sodium 140 mmol/L (135-145) 10/26/23 Potassium 3.8 mmol/L (3.3-5.1) 10/26/23 Chloride 104 mmol/L (96-108) 10/26/23 Carbon Dioxide 27 mmol/L (22-29) 10/26/23 BUN 15 mg/dL (9-16) 10/26/23 Creatinine 1.67 mg/dL (0.5-1.4) H 10/26/23 Calcium 9.5 mg/dL (8.4-10.2) 10/26/23 Assessment & Plan Assessment & Plan (1) HTN (hypertension): Code(s): I10 - Essential (primary) hypertension Category: Medical Qualifiers: Hypertension type: primary hypertension Qualified Code(s): I10 - Essential (primary) hypertension (2) MELANY (acute kidney injury): Code(s): N17.9 - Acute kidney failure, unspecified Category: Medical Plan Her renal functions are normal at baseline but has developed MELANY due to tubular injury. Her last renal ultrasound was normal. She has not known to have blood or protein in the urine. She is known to have interstitial cystitis for which she is closely followed up by her urologist. She avoids nonsteroidal anti-inflammatories . Her BP is running low now. I asked her to take Carvedilol 3.125 mg AM & 6.25 mg PM. She needs to hold ACEI given MELANY. Her serum potassium is normal. I did not make any other medication changes today.I answered all questions. She has no renal reservations for a surgical procedure. Follow-up appointment given. Orders: Orders Creatinine Today I10 - Essential (primary) hypertension, N17.9 - Acute kidney failure, unspecified Blood Urea Nitrogen Today I10 - Essential (primary) hypertension, N17.9 - Acute kidney failure, unspecified Electrolytes Today I10 - Essential (primary) hypertension, N17.9 - Acute kidney failure, unspecified Coding Level of Care Code Est Pt Level 4 (33492) Diagnoses Primary hypertension I10 Hypertension type: primary hypertension MELANY (acute kidney injury) N17.9
== END 2023-11-16 11:40 | disposition home or self-care (01) ==
PROVIDERS: PCP Nurse Practitioner Family; Visit Provider Internal Medicine Nephrology
DX: I10 Essential (primary) hypertension (principal); N17.9 Acute kidney failure, unspecified
CPT/HCPCS: 99214

== ENCOUNTER → 2023-11-16 10:39 | Outpatient (BNVA) | payer MEDICARE, MEDICAID, SELFPAY | PROVIDERS: PCP Nurse Practitioner Family; Visit Provider Internal Medicine Nephrology | DX: I10 Essential (primary) hypertension (principal); N17.9 Acute kidney failure, unspecified | CPT/HCPCS: 99212 ==

== ENCOUNTER 2023-11-18 07:29 | Outpatient (REF) | payer MEDICARE, MEDICAID, SELFPAY ==
--- NOTE | ~2023-11-18 | CT_ITS ---
EXAMINATION CT HEAD WITHOUT CONTRAST CLINICAL INFORMATION: Headache COMPARISON: None TECHNIQUE: CT of the head was performed without intravenous contrast. Reformatted axial, coronal, and sagittal images were reviewed. This CT examination was performed using dose optimization techniques as appropriate, variously including the following: *Automated exposure control *Adjustment of mA and/or kV according to patient size (this includes techniques or standardized protocols for targeted exams where dose is matched to indication/reason for exam; i.e. extremities or head) *Use of iterative reconstruction technique DLP: 797 mGy-cm FINDINGS: No intracranial hemorrhage, extra-axial fluid collection, or midline shift is identified. Mccoy-white matter differentiation is preserved. The ventricles are within normal limits. Basal cisterns are within normal limits. Paranasal sinuses are clear. Mastoid air cells and middle ear cavities are clear. No acute calvarial fractures. CT/CT head/brain wo IV con IMPRESSION: No intracranial abnormality. Electronically signed by: Royce Nixon DO 11/23/2023 02:52 PM EDT
[2023-11-18 08:58] LABS: Anion Gap 10 (12-20); Blood Urea Nitrogen 8 mg/dL (9-16); Carbon Dioxide 25 mmol/L (22-29); Chloride 107 mmol/L (96-108); Estimated Glomerular Filt Rate > 60; Potassium 3.4 mmol/L (3.3-5.1); Sodium 139 mmol/L (135-145)
== END 2023-11-18 07:30 | disposition home or self-care (01) ==
LOC: HO.CT 07:29
PROVIDERS: Internal Medicine Nephrology; PCP Nurse Practitioner Family; Visit Provider Internal Medicine Gastroenterology
DX: R51.9 Headache, unspecified (principal); N17.9 Acute kidney failure, unspecified; I10 Essential (primary) hypertension
CPT/HCPCS: 36415; 70450; 80051; 82565; 84520

== ENCOUNTER 2023-11-23 11:46 | Outpatient (AMB) | payer MEDICARE, MEDICAID, SELFPAY ==
[2023-11-23 11:50] VITALS: BP 80/60; PULSE 83; O2SAT 95; BMI 26.0
--- NOTE | 2023-11-23 11:50 | HO.NEPHOV ---
Vital Signs 11/23/23 11:50 Height 5 ft 5.5 in Weight 158 lb 8 oz BMI 26.0 BP 80/60 L Blood Pressure Location Lt brachial Position Sitting Pulse 83 Pulse Source Pulse Oximeter Pulse Oximetry (%) 95 Oxygen Delivery Method Room Air Intake Visit Reasons: 1 week f/u- Conf Alternative Financing Specialist Required: No Accompanied by: Self / Same As Patient Allergies sertraline [From ZOLOFT] Allergy (Intermediate, Verified 11/23/23 11:52) prolonged QT interval Sulfa (Sulfonamide Antibiotics) [SULFA (SULFONAMIDE ANTIBIOTICS)] Allergy (Intermediate, Verified 11/23/23 11:52) RASH haloperidol [From Haldol] Allergy (Mild, Verified 11/23/23 11:52) unknown morphine [MORPHINE] Allergy (Mild, Verified 11/23/23 11:52) Rash NSAIDS (Non-Steroidal Anti-Inflamma [NSAIDS (NON-STEROIDAL ANTI-INFLAMMA] Adverse Reaction (Intermediate, Verified 11/23/23 11:52) STOMACH UPSET fentanyl patch Allergy (Severe, Uncoded 10/21/23 09:27) Unresponsive HPI Comments Details: 46 year old with history of chronic gastritis, anxiety, depression, history of lap band removal, hypertension, FLOWER, bipolar disorder as well as interstitial cystitis who follows up closely with Urology for her cystitis was seen in follow up for hypertension. She had normal renal functions but recently had MELANY which has resolved. She claims to have family history of renal dysfunction ( Mom). There was no family history of any sensorineural deafness, Alport syndrome, thin membrane disease. She is not a diabetic. 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 She denies taking excessive nonsteroidal anti-inflammatories. She recently had NSTEMI and had cardiac catheterization. Her blood pressure was not well controlled and had medication increase but her BP became too low and her medications were adjusted. She was again seen in the emergency room had a brief hospitalization. [facility] Medical History Burn injury Arthritis Low back pain Elevated cholesterol SOB (shortness of breath) Asthma Numbness Mood disorder IBS (irritable bowel syndrome) OAB (overactive bladder) HTN (hypertension) Sleep apnea Hypersomnia Anxiety Surgical History Hx of gastric bypass Hx of total knee replacement Hx of knee surgery Hx of hernia repair History of cystoscopy Hx of laparoscopic gastric banding Hx of hysterectomy History of H/O gastric bypass Hx of endoscopy History of colonoscopy Family History Father Hx of colon cancer, stage IV Mother Family history of high blood pressure Social History Alcohol intake: never Comment: previously medicated Patient Tobacco Use Status: Never used Tobacco Substance Use Type: Marijuana Review of Systems Const All systems reviewed & are unremarkable except as noted in HPI and below Physical Exam Vital Signs: Last Vital Signs Pulse 83 11/23/23 11:50 BP 80/60 L 11/23/23 11:50 Pulse Ox 95 11/23/23 11:50 Oxygen Delivery Method Room Air 11/23/23 11:50 BMI result Body Mass Index 26.0 Const General: comfortable and no acute distress Orientation/consciousness: patient oriented x3 HEENT Head: Yes normocephalic Mouth: Normal oral and palatal mucosa present Eyes EOM: EOMs intact bilaterally Neck Neck: Yes supple Resp Auscultation: clear to auscultation bilaterally Cardio Jugular venous distension: no JVD Rate: regular rate GI Palpation (GI): Soft to palpation Auscultation: normal bowel sounds General: Yes no CVA tenderness Back/Spine/Pelvis Back: no CVA tenderness Skin General skin exam: no rashes or lesions noted Neuro General: patient oriented x3 and moves all extremities Extrem General: Yes no pedal edema Results Reviewed Nephrology Results: Hgb 10.3 g/dl (12.0-16.0) L 10/26/23 WBC 6.4 X10*3/uL (4.8-10.8) 10/26/23 Plt Count 207 X10*3/uL (160-400) 10/26/23 Sodium 139 mmol/L (135-145) 11/18/23 Potassium 3.4 mmol/L (3.3-5.1) 11/18/23 Chloride 107 mmol/L (96-108) 11/18/23 Carbon Dioxide 25 mmol/L (22-29) 11/18/23 BUN 8 mg/dL (9-16) L 11/18/23 Creatinine 0.86 mg/dL (0.5-1.4) 11/18/23 Calcium 9.5 mg/dL (8.4-10.2) 10/26/23 Assessment & Plan Assessment & Plan (1) MELANY (acute kidney injury): Code(s): N17.9 - Acute kidney failure, unspecified Category: Medical (2) HTN (hypertension): Code(s): I10 - Essential (primary) hypertension Category: Medical Qualifiers: Hypertension type: primary hypertension Qualified Code(s): I10 - Essential (primary) hypertension Plan Her renal functions are normal at baseline but has developed MELANY due to tubular injury but resolved now. Her last renal ultrasound was normal. She has not known to have blood or protein in the urine. She is known to have interstitial cystitis for which she is closely followed up by her urologist. She avoids nonsteroidal anti-inflammatories . Her BP is running low now. I asked her to take Carvedilol 3.125 mg AM & 9.375 mg PM. She needs to hold ACEI given recent MELANY and low BP. She will need an ECHO. Her serum potassium is normal. I did not make any other medication changes today.I answered all questions. Follow-up appointment given. Coding Level of Care Code Est Pt Level 4 (59247) Diagnoses MELANY (acute kidney injury) N17.9 Primary hypertension I10 Hypertension type: primary hypertension
== END 2023-11-23 12:20 | disposition home or self-care (01) ==
PROVIDERS: PCP Nurse Practitioner Family; Visit Provider Internal Medicine Nephrology
DX: N17.9 Acute kidney failure, unspecified (principal); I10 Essential (primary) hypertension
CPT/HCPCS: 99214

== ENCOUNTER → 2023-11-23 11:46 | Outpatient (BNVA) | payer MEDICARE, MEDICAID, SELFPAY | PROVIDERS: PCP Nurse Practitioner Family; Visit Provider Internal Medicine Nephrology | DX: I10 Essential (primary) hypertension (principal); N17.9 Acute kidney failure, unspecified | CPT/HCPCS: 99212 ==

== ENCOUNTER 2023-12-12 11:13 | Outpatient (AMB) | payer MEDICARE, MEDICAID, SELFPAY ==
[2023-12-12 11:21] VITALS: BP 140/90; BMI 25.1
--- NOTE | 2023-12-12 11:21 | HO.NEPHOV_ITS ---
Vital Signs 12/12/23 11:21 Height 5 ft 5.5 in Weight 153 lb BMI 25.1 BP 140/90 H Blood Pressure Location Lt brachial Position Sitting Intake Visit Reasons: MELANY- Conf Professional Bondsman Required: No Accompanied by: Self / Same As Patient Allergies sertraline [From ZOLOFT] Allergy (Intermediate, Verified 12/12/23 11:28) prolonged QT interval Sulfa (Sulfonamide Antibiotics) [SULFA (SULFONAMIDE ANTIBIOTICS)] Allergy (Intermediate, Verified 12/12/23 11:28) RASH haloperidol [From Haldol] Allergy (Mild, Verified 12/12/23 11:28) unknown morphine [MORPHINE] Allergy (Mild, Verified 12/12/23 11:28) Rash NSAIDS (Non-Steroidal Anti-Inflamma [NSAIDS (NON-STEROIDAL ANTI-INFLAMMA] Adverse Reaction (Intermediate, Verified 12/12/23 11:28) STOMACH UPSET fentanyl patch Allergy (Severe, Uncoded 10/21/23 09:27) Unresponsive HPI Comments Details: 46 year old with history of chronic gastritis, anxiety, depression, history of lap band removal, hypertension, FLOWER, bipolar disorder as well as interstitial cystitis who follows up closely with Urology for her cystitis was seen in follow up for hypertension. She had normal renal functions but recently had MELANY which has resolved. She claims to have family history of renal dysfunction ( Mom). There was no family history of any sensorineural deafness, Alport syndrome, thin membrane disease. She is not a diabetic. 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 She denies taking excessive nonsteroidal anti-inflammatories. Her blood pressure continues to be labile but better in the office today. She was again seen in the emergency room had a brief hospitalization. [facility] Medical History Burn injury Arthritis Low back pain Elevated cholesterol SOB (shortness of breath) Asthma Numbness Mood disorder IBS (irritable bowel syndrome) OAB (overactive bladder) HTN (hypertension) Sleep apnea Hypersomnia Anxiety Surgical History Hx of gastric bypass Hx of total knee replacement Hx of knee surgery Hx of hernia repair History of cystoscopy Hx of laparoscopic gastric banding Hx of hysterectomy History of H/O gastric bypass Hx of endoscopy History of colonoscopy Family History Father Hx of colon cancer, stage IV Mother Family history of high blood pressure Social History Alcohol intake: never Comment: previously medicated Patient Tobacco Use Status: Never used Tobacco Substance Use Type: Marijuana Review of Systems Const All systems reviewed & are unremarkable except as noted in HPI and below Physical Exam Vital Signs: Last Vital Signs BP 140/90 H 12/12/23 11:21 BMI result Body Mass Index 25.1 Const General: comfortable and no acute distress Orientation/consciousness: patient oriented x3 HEENT Head: Yes normocephalic Mouth: Normal oral and palatal mucosa present Eyes EOM: EOMs intact bilaterally Neck Neck: Yes supple Resp Auscultation: clear to auscultation bilaterally Cardio Jugular venous distension: no JVD Rate: regular rate GI Palpation (GI): Soft to palpation Auscultation: normal bowel sounds General: Yes no CVA tenderness Back/Spine/Pelvis Back: no CVA tenderness Skin General skin exam: no rashes or lesions noted Neuro General: patient oriented x3 and moves all extremities Extrem General: Yes no pedal edema Results Reviewed Nephrology Results: Hgb 10.3 g/dl (12.0-16.0) L 10/26/23 WBC 6.4 X10*3/uL (4.8-10.8) 10/26/23 Plt Count 207 X10*3/uL (160-400) 10/26/23 Sodium 139 mmol/L (135-145) 11/18/23 Potassium 3.4 mmol/L (3.3-5.1) 11/18/23 Chloride 107 mmol/L (96-108) 11/18/23 Carbon Dioxide 25 mmol/L (22-29) 11/18/23 BUN 8 mg/dL (9-16) L 11/18/23 Creatinine 0.86 mg/dL (0.5-1.4) 11/18/23 Calcium 9.5 mg/dL (8.4-10.2) 10/26/23 Assessment & Plan Assessment & Plan (1) HTN (hypertension): Code(s): I10 - Essential (primary) hypertension Category: Medical Qualifiers: Hypertension type: primary hypertension Qualified Code(s): I10 - Essential (primary) hypertension Plan Her renal functions is at baseline now. Her last renal ultrasound was normal. She has not known to have blood or protein in the urine. She is known to have interstitial cystitis for which she is closely followed up by her urologist. She avoids nonsteroidal anti-inflammatories . I asked her to C/W Carvedilol 6.25 mg bid. I started her on Spironolactone 12.5 mg AM. She recently had an ECHO. Her serum potassium is normal. I did not make any other medication changes today.I answered all questions. Follow-up appointment given Orders: Orders Blood Urea Nitrogen Today I10 - Essential (primary) hypertension Electrolytes Today I10 - Essential (primary) hypertension Creatinine Today I10 - Essential (primary) hypertension Medications: New spironolactone 12.5 mg (1/2 x 25 mg) PO DAILY 30 days 15 tabs 6RF Changed From carvedilol 12.5 mg PO BID 60 tabs 4RF To carvedilol 6.25 mg PO BID 90 days 180 tabs 4RF Coding Level of Care Code Est Pt Level 4 (75870) Diagnoses Primary hypertension I10 Hypertension type: primary hypertension
== END 2023-12-12 11:55 | disposition home or self-care (01) ==
PROVIDERS: PCP Nurse Practitioner Family; Visit Provider Internal Medicine Nephrology
DX: I10 Essential (primary) hypertension (principal)
CPT/HCPCS: 99214

== ENCOUNTER → 2023-12-12 11:13 | Outpatient (BNVA) | payer MEDICARE, MEDICAID, SELFPAY | PROVIDERS: PCP Nurse Practitioner Family; Visit Provider Internal Medicine Nephrology | DX: I10 Essential (primary) hypertension (principal); N30.10 Interstitial cystitis (chronic) without hematuria | CPT/HCPCS: 99212 ==

== ENCOUNTER 2024-01-05 08:30 | Outpatient (REF) | payer MEDICARE, MEDICAID, SELFPAY ==
--- NOTE | ~2024-01-05 | FL_ITS ---
EXAMINATION: FL UPPER GI WITH SMALL BOWEL SERIES CLINICAL INFORMATION: Status post gastric bypass. Abdominal pain. COMPARISON: None available. TECHNIQUE: Fluoroscopic air contrast upper GI examination was performed utilizing standard techniques with thin and thick barium and effervescent granules. Numerous spot images were obtained. Several fluoroscopic image hold cine sequences were also obtained. This was followed by small bowel series using standard overhead radiographic techniques at specified intervals until contrast was seen in the right colon. Fluoroscopic spot radiographs were then obtained of the terminal ileum and any abnormal findings in the small bowel. FINDINGS: Dual and single contrast images of the esophagus demonstrate normal caliber, contour, and mucosal pattern. No evidence of stricture, mass, or ulcerations identified. Esophageal peristalsis was normal. No evidence of hiatus hernia identified. No significant gastroesophageal reflux was seen during the course of the examination and on reflux views. Dual contrast and single contrast images of the stomach demonstrated post surgical changes consistent with prior history of Owen-en-Y gastric bypass. Gastric pouch demonstrates dependent mild irregular pooling of contrast suggesting superficial aphthous ulcerations. The gastrojejunostomy is widely patent, without evidence of stricture. No masses or ulcerations are seen. Contrast freely passed into the alimentary limb without delay. SMALL BOWEL SERIES: Barrow Worker view demonstrates a normal bowel gas pattern with stool noted throughout the colon. Surgical clips and sola are present in the left upper quadrant. Sequential imaging of the jejunum demonstrates a normal caliber, fold pattern, and appearance without evidence of mass, stricture, or abnormal dilatation. The ileal folds have a thickened appearance. The contrast becomes dilute as it passes distally through the ileum. There is faint opacification of the right colon in less than 10 minutes. The terminal ileum is not well visualized due to dilution of the contrast. FLUOROSCOPY TIME: 5 minutes 14 seconds Number of Spot Images:7 Number of cines obtained: 15 DOSE AREA PRODUCT: 2147 uGy-m2 (microgray-meter squared) FL/FL upper GI small bowel IMPRESSION: 1. Post surgical changes consistent with prior history of Owen-en-Y gastric bypass. The gastric jejunostomy is widely patent, without evidence of stricture. 2. Suspect small superficial aphthous ulcers within the gastric pouch dependently. 3. Abnormal/thickened appearance of the ileal folds. There is dilution of the barium as it passes distally. There is faint opacification of the right colon less than 10 minutes. These findings are suggestive of a malabsorption disorder. This procedure was performed by Chidi Larson PA-C, and supervised by Dr. White Electronically signed by: Vlad White MD 01/05/2024 03:45 PM EDT
== END 2024-01-05 08:31 | disposition home or self-care (01) ==
LOC: HO.XRAY 08:30
PROVIDERS: PCP Nurse Practitioner Family; Visit Provider Internal Medicine Gastroenterology
DX: K28.9 Gastrojejunal ulcer, unspecified as acute or chronic, without hemorrhage or perforation (principal); R51.9 Headache, unspecified; Z98.84 Bariatric surgery status
CPT/HCPCS: 74240; 74248; 74250

== ENCOUNTER → 2024-01-05 08:34 | Outpatient (BNV) | payer MEDICARE, MEDICAID, SELFPAY | PROVIDERS: PCP Nurse Practitioner Family; Visit Provider Physician Assistant Surgical | DX: R10.9 Unspecified abdominal pain (principal); Z98.84 Bariatric surgery status | CPT/HCPCS: 74246; 74248 ==

== ENCOUNTER 2024-01-17 07:56 | Outpatient (REF) | payer MEDICARE, MEDICAID, SELFPAY ==
--- NOTE | ~2024-01-17 | FL_ITS ---
EXAMINATION: XR SMALL BOWEL SERIES CLINICAL INFORMATION: Abdominal pain. Status post gastric bypass. COMPARISON: Small bowel follow-through January 01 4024 SMALL BOWEL SERIES: [place] Carpenter view demonstrates a normal bowel gas pattern with stool present in the right colon. Surgical clips are present in the left upper quadrant and epigastric region. Slightly elevated right hemidiaphragm. Mild lower lumbar spine degenerative changes, and mild bilateral hip joint degenerative changes. No organomegaly. No suspicious abnormal soft tissue calcifications. Lung bases are clear. Study is mildly limited, as the patient did not consume enough oral contrast to well opacify in the small bowel in its entirety. Post surgical changes are consistent with prior history of Owen-en-Y gastric bypass. Sequential imaging of the jejunum and ileum have normal caliber, fold pattern, and appearance without evidence of mass, stricture, or abnormal dilatation. The terminal ileum is not well-visualized. No dilution of contrast noted through progression. Contrast was seen in the right colon after 90 minutes. FLUOROSCOPY TIME: 0.7 minutes Number of Spot Images:2 Number of cines obtained: 1 DOSE AREA PRODUCT: 585.52 uGy-m2 (microgray-meter squared) FL/FL small bowel follow through IMPRESSION: 1. Study somewhat limited due to suboptimal intake of oral contrast by the patient. 2. Post surgical changes consistent with prior history of Owen-en-Y gastric bypass. Otherwise, unremarkable small bowel series. Electronically signed by: Vlad White MD 01/18/2024 10:11 AM SUHAIL
== END 2024-01-17 07:57 | disposition home or self-care (01) ==
LOC: HO.XRAY 07:56
PROVIDERS: Absent Provider Internal Medicine Nephrology; PCP Nurse Practitioner Family; Visit Provider Internal Medicine Gastroenterology
DX: K28.9 Gastrojejunal ulcer, unspecified as acute or chronic, without hemorrhage or perforation (principal); R51.9 Headache, unspecified
CPT/HCPCS: 74250

== ENCOUNTER → 2024-01-17 08:02 | Outpatient (BNV) | payer MEDICARE, MEDICAID, SELFPAY | PROVIDERS: Absent Provider Internal Medicine Nephrology; PCP Nurse Practitioner Family; Visit Provider Physician Assistant Surgical | DX: R10.9 Unspecified abdominal pain (principal); Z98.84 Bariatric surgery status | CPT/HCPCS: 74250 ==

== ENCOUNTER 2024-01-18 15:47 | Outpatient (REF) | payer MEDICARE, MEDICAID, SELFPAY ==
[2024-01-18 16:58] LABS: Anion Gap 13 (12-20); Blood Urea Nitrogen 7 mg/dL (9-16); Carbon Dioxide 25 mmol/L (22-29); Chloride 107 mmol/L (96-108); Estimated Glomerular Filt Rate > 60; Potassium 3.8 mmol/L (3.3-5.1); Sodium 141 mmol/L (135-145)
[2024-01-18 17:25] LABS: Cortisol Random 2.1 ug/dL
[2024-01-23 14:43] LABS: Metanephrine, Free <25 pg/mL (<=57); Normetanephrines, Free 31 pg/mL (<=148); Total Metanephrine, Free 31 pg/mL (<=205)
== END 2024-01-18 15:48 | disposition home or self-care (01) ==
LOC: HO.LAB 15:47
PROVIDERS: Urology; PCP Nurse Practitioner Family; Referring Provider Internal Medicine Nephrology; Visit Provider Internal Medicine Gastroenterology
DX: N17.9 Acute kidney failure, unspecified (principal); I10 Essential (primary) hypertension; R19.7 Diarrhea, unspecified; R10.9 Unspecified abdominal pain; K28.9 Gastrojejunal ulcer, unspecified as acute or chronic, without hemorrhage or perforation; R51.9 Headache, unspecified; E46 Unspecified protein-calorie malnutrition
CPT/HCPCS: 36415; 80051; 82533; 82565; 83835; 84307; 84520; 99212

== ENCOUNTER 2024-01-18 16:27 | Outpatient (AMB) | payer MEDICARE, MEDICAID, SELFPAY ==
--- NOTE | 2024-01-18 16:29 | HO.NEPHOV_ITS ---
Vital Signs 01/18/24 16:31 Height 5 ft 5.5 in Weight 154 lb BMI 25.2 BP 110/70 Blood Pressure Location Rt brachial Position Sitting Pulse 63 Pulse Source Pulse Oximeter Pulse Oximetry (%) 97 Oxygen Delivery Method Room Air Intake Visit Reasons: High BP- [facility] 01/08/24-Conf Financial Business Analyst Required: No Accompanied by: Self / Same As Patient Allergies sertraline [From ZOLOFT] Allergy (Intermediate, Verified 01/18/24 16:30) prolonged QT interval Sulfa (Sulfonamide Antibiotics) [SULFA (SULFONAMIDE ANTIBIOTICS)] Allergy (Intermediate, Verified 01/18/24 16:30) RASH haloperidol [From Haldol] Allergy (Mild, Verified 01/18/24 16:30) unknown morphine [MORPHINE] Allergy (Mild, Verified 01/18/24 16:30) Rash NSAIDS (Non-Steroidal Anti-Inflamma [NSAIDS (NON-STEROIDAL ANTI-INFLAMMA] Adverse Reaction (Intermediate, Verified 01/18/24 16:30) STOMACH UPSET fentanyl patch Allergy (Severe, Uncoded 10/21/23 09:27) Unresponsive HPI Comments Details: 46 year old with history of chronic gastritis, anxiety, depression, history of lap band removal, hypertension, FLOWER, bipolar disorder as well as interstitial cystitis who follows up closely with Urology for her cystitis, was seen in follow up for hypertension. She had normal renal functions but hsa H/O MELANY which has been resolved. She has been having BP spikes when her pain control is not optimal. She is on pain medications. She feels she needs long acting pain medications. She claims to have family history of renal dysfunction ( Mom). There was no family history of any sensorineural deafness, Alport syndrome, thin membrane disease. She is not a diabetic. 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 She denies taking excessive nonsteroidal anti-inflammatories. Her blood pressure is at goal in the office today. [facility] Medical History Burn injury Arthritis Low back pain Elevated cholesterol SOB (shortness of breath) Asthma Numbness Mood disorder IBS (irritable bowel syndrome) OAB (overactive bladder) HTN (hypertension) Sleep apnea Hypersomnia Anxiety Surgical History Hx of gastric bypass Hx of total knee replacement Hx of knee surgery Hx of hernia repair History of cystoscopy Hx of laparoscopic gastric banding Hx of hysterectomy History of H/O gastric bypass Hx of endoscopy History of colonoscopy Family History Father Hx of colon cancer, stage IV Mother Family history of high blood pressure Social History Alcohol intake: never Comment: previously medicated Patient Tobacco Use Status: Never used Tobacco Substance Use Type: Marijuana Review of Systems Const All systems reviewed & are unremarkable except as noted in HPI and below Physical Exam Vital Signs: Last Vital Signs Pulse 63 01/18/24 16:31 BP 110/70 01/18/24 16:31 Pulse Ox 97 01/18/24 16:31 Oxygen Delivery Method Room Air 01/18/24 16:31 BMI result Body Mass Index 25.2 Const General: comfortable and no acute distress Orientation/consciousness: patient oriented x3 HEENT Head: Yes normocephalic Mouth: Normal oral and palatal mucosa present Eyes EOM: EOMs intact bilaterally Neck Neck: Yes supple Resp Auscultation: clear to auscultation bilaterally Cardio Jugular venous distension: no JVD Rate: regular rate GI Palpation (GI): Soft to palpation Auscultation: normal bowel sounds General: Yes no CVA tenderness Back/Spine/Pelvis Back: no CVA tenderness Skin General skin exam: no rashes or lesions noted Neuro General: patient oriented x3 and moves all extremities Extrem General: Yes no pedal edema Results Reviewed Nephrology Results: Sodium 141 mmol/L (135-145) 01/18/24 Potassium 3.8 mmol/L (3.3-5.1) 01/18/24 Chloride 107 mmol/L (96-108) 01/18/24 Carbon Dioxide 25 mmol/L (22-29) 01/18/24 BUN 7 mg/dL (9-16) L 01/18/24 Creatinine 0.80 mg/dL (0.5-1.4) 01/18/24 Assessment & Plan Assessment & Plan (1) HTN (hypertension): Code(s): I10 - Essential (primary) hypertension Category: Medical Qualifiers: Hypertension type: primary hypertension Qualified Code(s): I10 - Essential (primary) hypertension Plan Her renal functions is at baseline now. Her last renal ultrasound was normal. She has not known to have blood or protein in the urine. She is known to have interstitial cystitis for which she is closely followed up by her urologist. She avoids nonsteroidal anti-inflammatories . I asked her to C/W Carvedilol 6.25 mg bid and Spironolactone 12.5 mg AM. She recently had an ECHO/Cardiac MRI. Her serum potassium is normal. Her BP spikes are happening at the time of sub optimal pain control. She strongly feels these spikes of BP and resultant ER visits could be avoided if she is on long acting narcotics. I did not make any other medication changes today.I answered all questions. Coding Level of Care Code Est Pt Level 4 (81359) Diagnoses Primary hypertension I10 Hypertension type: primary hypertension
[2024-01-18 16:31] VITALS: BP 110/70; PULSE 63; O2SAT 97; BMI 25.2
== END 2024-01-18 16:51 | disposition home or self-care (01) ==
LOC: HO.HKA 16:28
PROVIDERS: PCP Nurse Practitioner Family; Visit Provider Internal Medicine Nephrology
DX: I10 Essential (primary) hypertension (principal)
CPT/HCPCS: 99214

== ENCOUNTER 2024-01-23 14:02 | Outpatient (AMB) | payer MEDICARE, MEDICAID, SELFPAY ==
--- NOTE | 2024-01-22 21:01 | A.OFFVIS_ITS ---
Intake Visit Reasons: IC instillation discussion Intake Note: Patient is present for IC follow-up Urology Medication: Toviaz 8 mg Antibiotic Allergy:SULFA Blood Thinner:NONE Electrical Design Technologist Required: No Allergies sertraline [From ZOLOFT] Allergy (Intermediate, Verified 01/23/24 14:07) prolonged QT interval Sulfa (Sulfonamide Antibiotics) [SULFA (SULFONAMIDE ANTIBIOTICS)] Allergy (Intermediate, Verified 01/23/24 14:07) RASH haloperidol [From Haldol] Allergy (Mild, Verified 01/23/24 14:07) unknown morphine [MORPHINE] Allergy (Mild, Verified 01/23/24 14:07) Rash NSAIDS (Non-Steroidal Anti-Inflamma [NSAIDS (NON-STEROIDAL ANTI-INFLAMMA] Adverse Reaction (Intermediate, Verified 01/23/24 14:07) STOMACH UPSET fentanyl patch Allergy (Severe, Uncoded 01/23/24 14:07) Unresponsive Medication List - Last Reconciled 01/23/24 by Jeff Rodriges MD albuterol sulfate 1 vial inhalation Q6H albuterol sulfate 90 mcg/actuation (Ventolin HFA) inhalation carvedilol 6.25 mg PO BID 90 days clonazepam 1 mg PO NEEDED duloxetine 20 mg PO DAILY fesoterodine ER (Toviaz) 8 mg PO DAILY hydroxyzine pamoate (Vistaril) 25 mg PO BEDTIME magnesium oxide 400 mg PO BID metoclopramide HCl 5 mg PO BEDTIME PRN montelukast 1 tab PO DAILY oxycodone mg PO Q4-5H pantoprazole 40 mg PO BID quetiapine 100 mg PO BEDTIME PRN spironolactone 12.5 mg (1/2 x 25 mg) PO DAILY 30 days thiamine HCl (vitamin B1) 100 mg PO DAILY zolpidem 5 mg PO BEDTIME PRN HPI Comments Details: 01/23/24--IC patient Lorin has been followed by Dr. Rodriguez in the past and has had cystoscopy hydrodistention by Dr. Rodriguez and also by me. Her last cystoscopy hydrodistention was performed by me in August 2023. She is currently on Toviaz 8 mg daily for bladder spasms. She has been on amitriptyline and gabapentin in the past per review of her urology records. I have discussed trial of hydroxyzine 25 mg at bedtime. The patient states that that procedure she had a cardiac event and had workup to rule out an MO. Lorin is a 46 year old with multiple medical conditions. 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 Past medical history of chronic gastritis, anxiety, depression, history of lap band removal, hypertension, FLOWER, bipolar disorder. She is on chronic opioid management. She is followed by nephrology. Renal US 04/19/23- kidneys WNL Plan repeat cystoscopy hydrodistention. [facility], [facility] Medical History Burn injury Arthritis Low back pain Elevated cholesterol SOB (shortness of breath) Asthma Numbness Mood disorder IBS (irritable bowel syndrome) OAB (overactive bladder) HTN (hypertension) Sleep apnea Hypersomnia Anxiety Surgical History Hx of gastric bypass Hx of total knee replacement Hx of knee surgery Hx of hernia repair History of cystoscopy Hx of laparoscopic gastric banding Hx of hysterectomy History of H/O gastric bypass Hx of endoscopy History of colonoscopy Family History Father Hx of colon cancer, stage IV Mother Family history of high blood pressure Social History Alcohol intake: never Comment: previously medicated Patient Tobacco Use Status: Never used Tobacco Substance Use Type: Marijuana Review of Systems Const All systems reviewed & are unremarkable except as noted in HPI and below Reports no additional complaints Eyes Reports no additional complaints ENT Reports no additional complaints Card Reports no additional complaints Resp Reports no additional complaints GI Reports no additional complaints Reports as per HPI Musc Reports no additional complaints Skin/Breast Reports system reviewed and no additional complaints, except as documented Neuro Reports no additional complaints Psych Reports no additional complaints Endo Reports no additional complaints Doug/Lymph Reports no additional complaints Aller/Immun Reports no additional complaints Results AMB Urinalysis, Automated UA Leukoctes 0 Magy/uL Last Edit by KARIE Hood on 01/23/24 14:32 UA Nitrite Negative Last Edit by KARIE Hood on 01/23/24 14:32 UA Urobilinogen 0.2 mg/dL Last Edit by KARIE Hood on 01/23/24 14:3 2 UA Protein 15 mg/dL Last Edit by KARIE Hood on 01/23/24 14:32 UA pH 5.5 Last Edit by KARIE Hood on 01/23/24 14:32 UA Blood 0 Xu/uL Last Edit by KARIE Hood on 01/23/24 14:32 UA Specific Storden 1.025 Last Edit by KARIE Hood on 01/23/24 14: 32 UA Ketone Negative Last Edit by KARIE Hood on 01/23/24 14:32 UA Bilirubin 1 mg/dL Last Edit by KARIE Hood on 01/23/24 14:32 UA Glucose 0 mg/dL Last Edit by KARIE Hood on 01/23/24 14:32 Results Reviewed Results Reviewed: Date of Service: 04/19/23 US RETROPERITONEAL LIMITED (RENAL ONLY) CLINICAL INFORMATION: Urinary tract infection, site not specified. COMPARISON: Abdominal ultrasound 03/21/2019 TECHNIQUE: Real-time imaging of the kidneys. FINDINGS: RIGHT KIDNEY: 11.3 x 3.9 x 6.6 cm (SAG x AP x TRV). The kidney is normal in size, contour, and echogenicity. Renal cortical thickness is normal. No calculi or focal parenchymal lesions. No hydronephrosis. LEFT KIDNEY: 10.6 x 5.7 x 5.0 cm (SAG x AP x TRV). The kidney is normal in size, contour, and echogenicity. Renal cortical thickness is normal. No calculi or focal parenchymal lesions. No hydronephrosis. IMPRESSION: Normal renal ultrasound. Assessment & Plan Assessment & Plan (1) Interstitial cystitis: Code(s): N30.10 - Interstitial cystitis (chronic) without hematuria Category: Medical (2) Nocturia more than twice per night: Code(s): R35.1 - Nocturia Category: Medical (3) Chronic UTI (urinary tract infection): Code(s): N39.0 - Urinary tract infection, site not specified Category: Medical Plan Continue Toviaz 8 mg daily. Trial Vistaril 25 mg at bedtime. Schedule repeat cystoscopy hydrodistention. Orders: Orders AMB Urinalysis Automated Today Z13.9 - Encounter for screening, unspecified Medications: New fesoterodine ER (Toviaz) 8 mg PO DAILY 90 tabs 2RF hydroxyzine pamoate (Vistaril) 25 mg PO BEDTIME 30 caps 2RF Patient Instructions: The patient had an opportunity to ask questions regarding treatment plan. The patient expressed understanding and agreement with the above treatment plan. The patient is aware they should contact our office by phone for worsening of their current condition or the appearance of new symptoms. Compliance is encouraged with any medications and followup testing that is ordered. It is a privilege to be allowed the opportunity to participate in the urologic care of your patient. If you have any questions or concerns regarding treatment for the above conditions please do not hesitate to contact me. The office telephone contact is [phone]. This note is constructed in part using voice recognition software. While every effort has been made to ensure accuracy feeder operator automatic errors may have been included. Yours sincerely, Jeff Rodriges MD Coding Level of Care Code Est Pt Level 4 (16336) Diagnoses Interstitial cystitis N30.10 Nocturia more than twice per night R35.1 Chronic UTI (urinary tract infection) N39.0
== END 2024-01-23 14:41 | disposition home or self-care (01) ==
PROVIDERS: PCP Nurse Practitioner Family; Visit Provider Urology
DX: N30.10 Interstitial cystitis (chronic) without hematuria (principal); R35.1 Nocturia; N39.0 Urinary tract infection, site not specified; Z13.9 Encounter for screening, unspecified
CPT/HCPCS: 99214

== ENCOUNTER → 2024-01-23 14:02 | Outpatient (BNVA) | payer MEDICARE, MEDICAID, SELFPAY | PROVIDERS: PCP Nurse Practitioner Family; Visit Provider Urology | DX: N30.10 Interstitial cystitis (chronic) without hematuria (principal); R35.1 Nocturia | CPT/HCPCS: 81003; 99212 ==

== ENCOUNTER 2024-01-27 08:59 | Outpatient (REF) | payer MEDICARE, MEDICAID, SELFPAY ==
[2024-02-03 06:19] LABS: Metanephrine, Free 24U 81 mcg/24 h (58-203); Normetanephrine, Free 24U 138 mcg/24 h (88-649); Total Metanephrine, Free 24U 219 mcg/24 h (182-739); Total Volume 24U 650 mL
[2024-02-06 19:50] LABS: Hydroindolacetic Acid,5- 1.8 mg/24 h (< OR = 6.0); Total Volume 650 mL
[2024-02-16 10:03] LABS: Creatinine 24Hr Urine 1125 mg/24 h (603 - 1783); N-Methylhistamine, 24Hr Urine 80 mcg/g Cr (30-200); Total Volume 650
[2024-02-20 15:32] LABS: Total Volume, 24 Hr Urine 650
== END 2024-01-27 09:00 | disposition home or self-care (01) ==
LOC: HO.LNP 08:59
PROVIDERS: Visit Provider Internal Medicine Gastroenterology
DX: R19.7 Diarrhea, unspecified (principal); R10.9 Unspecified abdominal pain
CPT/HCPCS: 81050; 82530; 82542; 83497; 83835

== ENCOUNTER 2024-02-14 12:48 | Day surgery (SDC) | payer MEDICARE, MEDICAID, SELFPAY ==
[2024-02-08 09:40] VITALS: BMI 26.6
--- NOTE | 2024-02-13 11:51 | HO.ANESPROP2 ---
Documented by User: Cecilia Wolff NP 02/13/24 12:46 HPI - Anesthesia Eval Consult details Narrative: 48yo F for Cystoscopy Hydrodistention of Bladder s/p same 08/2023 with GA-LMA 4 Follows [facility] cardiology. Optimized for surgery per 01/2024 letter. Last office visit 12/2023, reports feeling better since hospitalization in September. On arrival to [facility] ED September 2023 she was found to have an elevated troponin I of 8700, ECG showed TWI in inferolateral leads and ST elevation in lead V2. Given that her chest pain was radiating to her back a CT angio of the chest and abdomen was obtained which showed no evidence of aortic dissection or aneurysm. CXR showed no acute abnormalities. She was started on heparin and nitroglycerin drips and transferred to [facility] for further management of NSTEMI. Hospital course complicated by prolonged QTc of 505. Echo shows a reduced EF 25-30% with severe HK to the distal 2/3 LV, sparing of the basal segment c/w stress vs. large LAD territory. Has since underwent a cardiac cath with no coronary disease found, consistent with Takotsubo. Cardiac MRI 12/2023 with LVEF 53% PMFSH Active Problems Active Problems: All Active Problems Low serum cortisol level (Acute) MELANY (acute kidney injury) (Acute) Headache (Acute) Diarrhea (Acute) Marginal ulcer (Acute) Malnutrition (Acute) Chronic UTI (urinary tract infection) (Acute) Lumbar spondylosis (Acute) Right knee pain (Acute) Knee pain (Acute) Visceral abdominal pain (Acute) Constipation (Acute) Therapeutic opioid-induced constipation (OIC) (Acute) Pelvic pain in female (Acute) Nocturia more than twice per night (Acute) Interstitial cystitis (Acute) Dysuria (Acute) Epigastric abdominal pain (Acute) Diarrhea associated with pseudomembranous colitis (Acute) Nausea & vomiting (Acute) HTN (hypertension) (Acute) Past Medical History Medical History Takotsubo cardiomyopathy Burn injury Arthritis Low back pain Elevated cholesterol SOB (shortness of breath) Asthma Numbness Mood disorder IBS (irritable bowel syndrome) OAB (overactive bladder) HTN (hypertension) Sleep apnea Hypersomnia Anxiety Family History Family History Father Hx of colon cancer, stage IV Mother Family history of high blood pressure Family history of problems with anesthesia: No Surgical History Surgical History Hx of gastric bypass Hx of total knee replacement Hx of knee surgery Hx of hernia repair History of cystoscopy Hx of laparoscopic gastric banding Hx of hysterectomy History of H/O gastric bypass Hx of endoscopy History of colonoscopy History of Problems with Anesthesia: No Social History Social History Are you a primary wound care rn to a significant other at home: No Do you presently have visiting nurse or other home services: No Alcohol intake: never Comment: previously medicated Patient Tobacco Use Status: Never used Tobacco Use of substances other than those prescribed or required for medical reasons: Yes Substance Use Type: Marijuana Have you been hit, kicked, punched, or otherwise hurt by someone within the past year? If so, by whom?: No Are you DNR?: No Advance Directives: No Advance Directives Information Provided: Yes Recently lost weight without trying: No Meds Allergies Allergy/AdvReac Type Severity Reaction Status Date / Time sertraline [From ZOLOFT] Allergy Intermediate prolonged Verified 01/23/24 14:07 QT interval Sulfa (Sulfonamide Allergy Intermediate RASH Verified 01/23/24 14:07 Antibiotics) [SULFA (SULFONAMIDE ANTIBIOTICS)] haloperidol [From Haldol] Allergy Mild unknown Verified 01/23/24 14:07 morphine [MORPHINE] Allergy Mild Rash Verified 01/23/24 14:07 NSAIDS (Non-Steroidal AdvReac Intermediate STOMACH Verified 01/23/24 14:07 Anti-Inflamma UPSET [NSAIDS (NON-STEROIDAL ANTI-INFLAMMA] fentanyl patch Allergy Severe Unresponsiv Uncoded 01/23/24 14:07 e Home Medications ?Medication ?Instructions ?Recorded ?Confirmed ?Last Taken ?Type albuterol sulfate 2.5 mg/3 mL 1 vial inhalation Q6H 10/07/20 02/08/24 10/04/22 History (0.083 %) solution for nebulization montelukast 10 mg tablet 1 tab PO DAILY 10/07/20 02/08/24 Unknown History zolpidem 5 mg tablet 5 mg PO BEDTIME PRN Insomnia 09/25/21 02/08/24 08/23/22 History albuterol sulfate 90 mcg/actuation 1 inh inhalation Q4H PRN Shortness 11/26/22 02/08/24 Unknown History aerosol inhaler (Ventolin HFA) Of Breath pantoprazole 40 mg tablet,delayed 40 mg PO BID 10/14/23 02/08/24 Unknown History release quetiapine 200 mg tablet 100 mg PO BEDTIME PRN insomnia 11/16/23 02/08/24 Unknown History clonazepam 2 mg tablet 1 mg PO DAILY PRN anxiety 12/12/23 02/08/24 Unknown History magnesium oxide 400 mg PO BID 12/12/23 02/08/24 Unknown History metoclopramide HCl 5 mg tablet 5 mg PO BEDTIME PRN gi distress 12/12/23 02/08/24 Unknown History oxycodone 15 mg tablet 5 mg PO Q4-5H 12/12/23 02/08/24 Unknown History thiamine HCl (vitamin B1) 100 mg 100 mg PO DAILY 12/12/23 02/08/24 Unknown History tablet duloxetine 20 mg capsule,delayed 20 mg PO DAILY 01/18/24 02/08/24 Unknown History release Exam Height,Weight and Vital Signs: Height 5 ft 5 in Weight 72.575 kg Pertinent Lab Results Pertinent Lab Results: Laboratory Tests 10/26/23 01/18/24 13:10 16:22 WBC 6.4 Hgb 10.3 L Hct 30.6 L Plt Count 207 Sodium 141 Potassium 3.8 Chloride 107 Carbon Dioxide 25 BUN 7 L Creatinine 0.80 Narrative Narrative: [facility] Cardiac W+W/O Contrast ? 16:46:05 IMPRESSION: 1. The left ventricle is at the upper limit of normal in size and myocardial mass. LV wall thickness is normal. LV systolic function is normal/preserved. Quantitative LVEF 53%. No significant LV regional wall motion abnormalities. 2. The right ventricle is normal in size and systolic function. Quantitative RVEF 54%. Normal RV wall motion. 3. The left atrium is mildly dilated. 4. No visual evidence of significant valve dysfunction. 5. No T1 evidence of diffuse myocardial fibrosis. T2 images are technically inadequate for analysis. 6. No MRI evidence of myocardial infarction, myocarditis, infiltrative or hypertrophic cardiomyopathy on delayed contrast imaging. WSN: [id number] Ordering Physician: Christina Mays ? Signed By: Abigail MD, Tomas Wick ECGECG 12-Lead * Preliminary * ? 10:28:57 Please click on pdf link to open report ? ECG 12-Lead * Preliminary * ? 10:28:57 Ventricular Rate: 60 BPM Atrial Rate: 60 BPM P-R Interval: 204 ms QRS Duration: 72 ms Q-T Interval: 438 ms QTC Calculation(Bazett): 438 ms P [place]: 46 degrees R [place]: 36 degrees T [place]: 49 degrees Normal sinus rhythm Nonspecific T wave abnormality Abnormal ECG When compared with ECG of 15-SEP-2023 16:09, T wave inversion no longer evident in Inferior leads T wave inversion no longer evident in Lateral leads [place]: , EchoEchocardiogram - Complete ? 09:02:55 Summary The left ventricular size is normal. The left ventricular wall thickness is upper normal. The LV systolic function is severely reduced . The left ventricular ejection fraction is 25-30 %. Severe hypokinesis to akinesis of the distal 2/3rds of the LV with sparing of the basal segments. Consider stress cardiomyopathy in the differential, but also consider ischemia of a very large LAD. Clinical correlation suggested. The global longitudinal strain (GLS) from 3D analysis is -12.2 %. There is mild apical tethering of the both leaflets of the mitral valve. There is mild mitral regurgitation. The right ventricular size and function appears grossly normal. Impressions Severe hypokinesis to akinesis of the distal 2/3rds of the LV with sparing of the basal segments. Consider stress cardiomyopathy in the differential, but also consider ischemia of a very large LAD. Clinical correlation suggested. Comparison Comparison is made to the study of June 16, 2018. Overall LV systolic function is significantly worse as detailed above. Signature ? Signed By: Vicente SPENCER, Lyle Cardiac Cath ProcedureCardiac Cath Procedure ? 08:06:00 Conclusions Diagnostic Summary No obstructive coronary artery disease (greater than 50% stenosis) Elevated LV end-diastolic pressure No significant gradient between the left ventricle and aorta upon pullback Right radial artery hemostatic with compressive device Diagnostic Recommendations No significant coronary disease was identified with presentation most consistent with stress cardiomyopathy. Continue supportive medical therapy. ACC Diagnostic Recommendations: Medical therapy and/or counseling. Complications:None. Signatures ? Signed By: Edgardo Montes MD Assessment and Plan Assessment Anesthesia Assessment: Chart Reviewed Final Anesthetic Review Family History of Problems with Anesthesia: No History of Problems with Anesthesia: No Documented by User: Mauro Sharma MD 02/14/24 15:51 PMFSH Past Medical History Medical History Takotsubo cardiomyopathy Burn injury Arthritis Low back pain Elevated cholesterol SOB (shortness of breath) Asthma Numbness Mood disorder IBS (irritable bowel syndrome) OAB (overactive bladder) HTN (hypertension) Sleep apnea Hypersomnia Anxiety Family History Family History Father Hx of colon cancer, stage IV Mother Family history of high blood pressure Surgical History Surgical History Hx of gastric bypass Hx of total knee replacement Hx of knee surgery Hx of hernia repair History of cystoscopy Hx of laparoscopic gastric banding Hx of hysterectomy History of H/O gastric bypass Hx of endoscopy History of colonoscopy Social History Social History Are you a primary wound care rn to a significant other at home: No Do you presently have visiting nurse or other home services: No Alcohol intake: never Comment: previously medicated Patient Tobacco Use Status: Never used Tobacco Use of substances other than those prescribed or required for medical reasons: Yes Substance Use Type: Marijuana Have you been hit, kicked, punched, or otherwise hurt by someone within the past year? If so, by whom?: No Are you DNR?: No Advance Directives: No Advance Directives Information Provided: Yes Recently lost weight without trying: No Meds Allergies Allergy/AdvReac Type Severity Reaction Status Date / Time sertraline [From ZOLOFT] Allergy Intermediate prolonged Verified 01/23/24 14:07 QT interval Sulfa (Sulfonamide Allergy Intermediate RASH Verified 01/23/24 14:07 Antibiotics) [SULFA (SULFONAMIDE ANTIBIOTICS)] haloperidol [From Haldol] Allergy Mild unknown Verified 01/23/24 14:07 morphine [MORPHINE] Allergy Mild Rash Verified 01/23/24 14:07 NSAIDS (Non-Steroidal AdvReac Intermediate STOMACH Verified 01/23/24 14:07 Anti-Inflamma UPSET [NSAIDS (NON-STEROIDAL ANTI-INFLAMMA] fentanyl patch Allergy Severe Unresponsiv Uncoded 01/23/24 14:07 e Home Medications ?Medication ?Instructions ?Recorded ?Confirmed ?Last Taken ?Type albuterol sulfate 2.5 mg/3 mL 1 vial inhalation Q6H 10/07/20 02/08/24 10/04/22 History (0.083 %) solution for nebulization montelukast 10 mg tablet 1 tab PO DAILY 10/07/20 02/08/24 Unknown History zolpidem 5 mg tablet 5 mg PO BEDTIME PRN Insomnia 09/25/21 02/08/24 08/23/22 History albuterol sulfate 90 mcg/actuation 1 inh inhalation Q4H PRN Shortness 11/26/22 02/08/24 Unknown History aerosol inhaler (Ventolin HFA) Of Breath pantoprazole 40 mg tablet,delayed 40 mg PO BID 10/14/23 02/08/24 Unknown History release quetiapine 200 mg tablet 100 mg PO BEDTIME PRN insomnia 11/16/23 02/08/24 Unknown History clonazepam 2 mg tablet 1 mg PO DAILY PRN anxiety 12/12/23 02/08/24 Unknown History magnesium oxide 400 mg PO BID 12/12/23 02/08/24 Unknown History metoclopramide HCl 5 mg tablet 5 mg PO BEDTIME PRN gi distress 12/12/23 02/08/24 Unknown History oxycodone 15 mg tablet 5 mg PO Q4-5H 12/12/23 02/08/24 Unknown History thiamine HCl (vitamin B1) 100 mg 100 mg PO DAILY 12/12/23 02/08/24 Unknown History tablet duloxetine 20 mg capsule,delayed 20 mg PO DAILY 01/18/24 02/08/24 Unknown History release Exam Airway Partial: Upper and Lower Loose/Missing/Broken Teeth: Yes, Upper and Lower Heart: ok. see above. Lungs: ok. Assessment and Plan Final Anesthetic Review NPO: Yes Final Preanesthetic Review: No Changes in Pt Med Stat, Meds/Allgs Chart Reviewed, Consent Obtained/Reviewed and Anes Risks/Benef Reviewed Patient Risk: Intermediate Procedure Risk: Low Anesthetic Plan Anesthetic Plan: GA and Agree w/ Assess. and Plan Disposition: Standard PACU
[2024-02-14 14:02] VITALS: BP 152/94; PULSE 71; RESP 16; TEMP 36.9; O2SAT 99; BMI 24.6
[2024-02-14] MEDS: Lactated Ringers 1,000 ML 100 ML IVCONT (14:29)
--- NOTE | 2024-02-14 15:42 | MHC.SHP ---
Pre-Procedural Eval Section A - 24 Hr Update-Section A only Date of Service: 02/14/24 The patient is an INPATIENT: No The patient has been examined within 24 hours of the surgical procedure. The History & Physical has been completed within 30 days and I have reviewed it.: Yes Section B - Complete if H&P > 30 days Chief Complaint: Interstitial cystitis Allergies: Allergies Allergy/AdvReac Type Severity Reaction Status Date / Time sertraline [From ZOLOFT] Allergy Intermediate prolonged Verified 01/23/24 14:07 QT interval Sulfa (Sulfonamide Allergy Intermediate RASH Verified 01/23/24 14:07 Antibiotics) [SULFA (SULFONAMIDE ANTIBIOTICS)] haloperidol [From Haldol] Allergy Mild unknown Verified 01/23/24 14:07 morphine [MORPHINE] Allergy Mild Rash Verified 01/23/24 14:07 NSAIDS (Non-Steroidal AdvReac Intermediate STOMACH Verified 01/23/24 14:07 Anti-Inflamma UPSET [NSAIDS (NON-STEROIDAL ANTI-INFLAMMA] fentanyl patch Allergy Severe Unresponsiv Uncoded 01/23/24 14:07 e Plan Diagnosis/Plan: Unchanged I have reviewed the history and physical and performed a pertinent physical examination on my patient. No changes have occurred unless specified. Cystoscopy Hydrodistension. Time Spent With Patient Time: Total time managing care of this patient today ____ minutes.
[2024-02-14 16:31] VITALS: BP 158/97; PULSE 80; RESP 18; TEMP 37.2; O2SAT 99
--- NOTE | 2024-02-14 16:32 | W.PM.OPN ---
Operative Note Operative Note Date of Service: 02/14/24 Narrative: PREOP DIAGNOSIS: Interstitial cystitis, pelvic pain, urethral stenosis POSTOP DIAGNOSIS: Interstitial cystitis, pelvic pain, urethral stenosis PROCEDURE: CYSTOSCOPY HYDRODISTENTION, Urethral dilation Anethesia: General Surgeon: Dr. Jeff Rodriges Indications: Chronic interstitial cystitis with bladder pain syndrome and complaints of slowing of urinary stream Details of procedure: The patient was brought into the operating room placed on the OR table in supine position. 2 g of Ancef IV. General anesthesia was administered. The patient was repositioned into lithotomy position, prepped and draped in the usual sterile fashion. Time-out was done per protocol. On attempts to place the 22 fr cystoscope transurethrally there was some resistance at the uretheral meatus. The female sounds were used to dilate the urethral meatus starting with the 18 fr and sequentially dilated up to a 26 fr. The 22 fr cystoscope was than passed transurethrally into the bladder. Urine was drained from the bladder measuring 150 mL.The right and left ureteral orifices were visualized. The entire bladder was visualized. There were no suspicious bladder lesions seen. The bladder was filled with sterile water at 80 cm of water pressure under gravity. The bladder was distended for 2 minutes. Bladder capacity measured 725 mL. Revisualization of the bladder, noted no glomerulations. No Benjamín ulcerations. The bladder was refilled with sterile water again at 80 cm of water pressure under gravity. The bladder was distended for 3 minutes. The fluid was drained from the bladder and measured 800 mL. The cystoscope was removed. 2% lidocaine urojet was passed transurethrally, Solution of (1% lidocaine plain, 15 mL, 0.5 % Marcaine 15 mL mixed with 30, 000 units of heparin concentration 5000 units per mL total of 6 mL hepaine) instilled transurethrally into the bladder. Belladonna supository per rectum. The patient was brought out of anesthesia and taken to recovery in stable condition. Complications: None
[2024-02-14 16:35] VITALS: BP 160/97; PULSE 68; RESP 16; O2SAT 99
[2024-02-14 16:40] VITALS: BP 150/97; PULSE 66; RESP 16; O2SAT 99
[2024-02-14] MEDS: Phenazopyridine HCL 200 MG TABLET PO (16:44)
[2024-02-14 16:45] VITALS: BP 150/94; PULSE 68; RESP 16; O2SAT 99
[2024-02-14] MEDS: oxyCODONE HCl Immed Release 5 MG TABLET PO (16:48)
[2024-02-14 17:00] VITALS: BP 159/98; PULSE 70; RESP 16; TEMP 36.9; O2SAT 99
== END 2024-02-14 17:21 | disposition home or self-care (01) ==
PROVIDERS: PCP Nurse Practitioner Family; Visit Provider Urology
PROC: 0T7B7ZZ Dilation of Bladder, Via Natural or Artificial Opening (ICD-10-PCS; CPT 52260; principal; 2024-02-14 14:50)
DX: N30.10 Interstitial cystitis (chronic) without hematuria (principal); R39.82 Chronic bladder pain; R39.198 Other difficulties with micturition; N32.81 Overactive bladder; N32.89 Other specified disorders of bladder; R35.1 Nocturia; I51.81 Takotsubo syndrome; I10 Essential (primary) hypertension; E78.00 Pure hypercholesterolemia, unspecified; G47.33 Obstructive sleep apnea (adult) (pediatric); J45.909 Unspecified asthma, uncomplicated; M54.50 Low back pain, unspecified; K29.50 Unspecified chronic gastritis without bleeding; K58.9 Irritable bowel syndrome, unspecified; F31.9 Bipolar disorder, unspecified; F41.9 Anxiety disorder, unspecified; Z79.891 Long term (current) use of opiate analgesic; Z79.899 Other long term (current) drug therapy; Z88.2 Allergy status to sulfonamides; Z88.5 Allergy status to narcotic agent; Z98.84 Bariatric surgery status; Z98.890 Other specified postprocedural states
CPT/HCPCS: 52260; 87086; J0690; J1644; J1885; J2003; J2405; J2704; J2795; J3010

== ENCOUNTER → 2024-02-14 12:48 | Outpatient (BNV) | payer MEDICARE, MEDICAID, SELFPAY | PROVIDERS: PCP Nurse Practitioner Family; Visit Provider Urology | DX: N30.10 Interstitial cystitis (chronic) without hematuria (principal); N13.5 Crossing vessel and stricture of ureter without hydronephrosis | CPT/HCPCS: 52260; 52341 ==

== ENCOUNTER 2024-02-20 07:33 | Outpatient (RCR) | payer MEDICARE, MEDICAID, SELFPAY ==
[2024-02-20 07:37] VITALS: BP 93/65; PULSE 99; RESP 14; TEMP 37.1; O2SAT 96
[2024-02-20] MEDS: Cosyntropin 0.25 MG VIAL IVPUSH (07:57)
[2024-02-20 08:38] LABS: Cortisol Random < 1.0 ug/dL
[2024-02-22 11:03] LABS: Cortisol 30 Minute 10.6 mcg/dL; Cortisol Baseline 0.8 mcg/dL
[2024-02-23 21:04] LABS: Adrenocorticotropic Hormone <5 pg/mL (6-50)
== END 2024-02-20 15:28 | disposition home or self-care (01) ==
LOC: HO.INF 07:33
PROVIDERS: Visit Provider Internal Medicine Gastroenterology
DX: R79.89 Other specified abnormal findings of blood chemistry (principal)
CPT/HCPCS: 36415; 82024; 82533; 96374; J0834

== ENCOUNTER 2024-03-05 13:22 | Outpatient (AMB) | payer MEDICARE, MEDICAID, SELFPAY ==
--- NOTE | 2024-03-05 13:11 | MHC.OFFVIS ---
Intake Visit Reasons: Hydrodistention- F/U Intake Note: Patient is present for Urology Med: Toviaz, hydroxyzine, Flomax Antibiotic Allergy: Blood Thinner: Patient Symptoms: Urinary burning improved post hydrodistention Allergies sertraline [From ZOLOFT] Allergy (Intermediate, Verified 01/23/24 14:07) prolonged QT interval Sulfa (Sulfonamide Antibiotics) [SULFA (SULFONAMIDE ANTIBIOTICS)] Allergy (Intermediate, Verified 01/23/24 14:07) RASH haloperidol [From Haldol] Allergy (Mild, Verified 01/23/24 14:07) unknown morphine [MORPHINE] Allergy (Mild, Verified 01/23/24 14:07) Rash NSAIDS (Non-Steroidal Anti-Inflamma [NSAIDS (NON-STEROIDAL ANTI-INFLAMMA] Adverse Reaction (Intermediate, Verified 01/23/24 14:07) STOMACH UPSET fentanyl patch Allergy (Severe, Uncoded 01/23/24 14:07) Unresponsive Medication List - Last Reconciled 03/05/24 by Jeff Rodriges MD albuterol sulfate 1 vial inhalation Q6H albuterol sulfate 90 mcg/actuation (Ventolin HFA) 1 inh inhalation Q4H PRN carvedilol 6.25 mg PO BID 90 days clonazepam 1 mg PO DAILY PRN duloxetine 20 mg PO DAILY fesoterodine ER (Toviaz) 4 mg PO DAILY 30 days hydrocortisone orally 2 times a day; 10 mg at 8 AM and 5 mg at 6 PM hydroxyzine pamoate (Vistaril) 25 mg PO BEDTIME magnesium oxide 400 mg PO BID metoclopramide HCl 5 mg PO BEDTIME PRN montelukast 1 tab PO DAILY oxycodone 5 mg PO Q4-5H pantoprazole 40 mg PO BID quetiapine 100 mg PO BEDTIME PRN spironolactone 12.5 mg (1/2 x 25 mg) PO DAILY 30 days tamsulosin 0.4 mg PO BEDTIME thiamine HCl (vitamin B1) 100 mg PO DAILY zolpidem 5 mg PO BEDTIME PRN HPI Comments Details: 03/05/24---Lorin is followed for interstitial cystitis and urinary symptoms of urgency and urge incontinence. She states after the cystoscopy hydrodistention she has relief of the burning sensation and pain associated with voiding. She states that she has been noticing hesitancy with urination and sometimes has to wait up to 20 minutes before she can empty her bladder. I have discussed decreasing the Toviaz from 8 mg to 4 mg. She is tolerating hydroxyzine at bedtime. Will consider InterStim therapy in the future if urge symptoms persist. Follow-up in 2 months. Eboni states that she feels overwhelmed her medical health due to chronic pain and states she needs surgery knee. Review of chart: 01/23/24--IC patient Lorin has been followed by Dr. Rodriguez in the past and has had cystoscopy hydrodistention by Dr. Rodriguez and also by me. Her last cystoscopy hydrodistention was performed by me in August 2023. She is currently on Toviaz 8 mg daily for bladder spasms. She has been on amitriptyline and gabapentin in the past per review of her urology records. I have discussed trial of hydroxyzine 25 mg at bedtime. The patient states that that procedure she had a cardiac event and had workup to rule out an SD. Lorin is a 46 year old with multiple medical conditions. 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 Past medical history of chronic gastritis, anxiety, depression, history of lap band removal, hypertension, FLOWER, bipolar disorder. She is on chronic opioid management. She is followed by nephrology. Renal US 04/19/23- kidneys WNL Plan repeat cystoscopy hydrodistention. [facility] Medical History Takotsubo cardiomyopathy Burn injury Arthritis Low back pain Elevated cholesterol SOB (shortness of breath) Asthma Numbness Mood disorder IBS (irritable bowel syndrome) OAB (overactive bladder) HTN (hypertension) Sleep apnea Hypersomnia Anxiety Surgical History Hx of gastric bypass Hx of total knee replacement Hx of knee surgery Hx of hernia repair History of cystoscopy Hx of laparoscopic gastric banding Hx of hysterectomy History of H/O gastric bypass Hx of endoscopy History of colonoscopy Family History Father Hx of colon cancer, stage IV Mother Family history of high blood pressure Social History Are you a primary toddler caregiver to a significant other at home: No Do you presently have visiting nurse or other home services: No Alcohol intake: never Comment: previously medicated Patient Tobacco Use Status: Never used Tobacco Substance Use Type: Marijuana Review of Systems Const All systems reviewed & are unremarkable except as noted in HPI and below Reports no additional complaints Eyes Reports no additional complaints ENT Reports no additional complaints Card Reports no additional complaints Resp Reports no additional complaints GI Reports no additional complaints Reports as per HPI Musc Reports no additional complaints Skin/Breast Reports system reviewed and no additional complaints, except as documented Neuro Reports no additional complaints Psych Reports no additional complaints Endo Reports no additional complaints Doug/Lymph Reports no additional complaints Aller/Immun Reports no additional complaints Telehealth Telehealth Telehealth Platform: Telephone Location of provider rendering services: practice address Location of patient: address on file Patient Identification confirmed using: Name, : Yes Telehealth method: voice only Patient verbally consented to treatment: Yes Patient verbally consented to billing insurance company: Yes Patient informed of any privacy concerns related to visit: Yes Minutes spent on Phone/Video with Pt.: 16 Assessment & Plan Assessment & Plan (1) Interstitial cystitis: Code(s): N30.10 - Interstitial cystitis (chronic) without hematuria Category: Medical (2) Nocturia more than twice per night: Code(s): R35.1 - Nocturia Category: Medical (3) Chronic UTI (urinary tract infection): Code(s): N39.0 - Urinary tract infection, site not specified Category: Medical (4) Urge incontinence of urine: Code(s): N39.41 - Urge incontinence Category: Medical Plan I have discussed decreasing the Toviaz from 8 mg to 4 mg. She is tolerating hydroxyzine bedtime. Will consider InterStim therapy in the future if urge symptoms persist. Follow-up in 2 months. Medications: New fesoterodine ER (Toviaz) 4 mg PO DAILY 30 days 30 tabs 4RF Discontinued fesoterodine ER (Toviaz) Discontinued Reason: Doctor's Order 8 mg PO DAILY 90 tabs 2RF Patient Instructions: The patient had an opportunity to ask questions regarding treatment plan. The patient expressed understanding and agreement with the above treatment plan. The patient is aware they should contact our office by phone for worsening of their current condition or the appearance of new symptoms. Compliance is encouraged with any medications and followup testing that is ordered. It is a privilege to be allowed the opportunity to participate in the urologic care of your patient. If you have any questions or concerns regarding treatment for the above conditions please do not hesitate to contact me. The office telephone contact is [phone]. This note is constructed in part using voice recognition software. While every effort has been made to ensure accuracy food processing plant manager errors may have been included. Yours sincerely, Jeff Rodriges MD Coding Level of Care Code Tele Est Pt Level 4 (39397) Diagnoses Interstitial cystitis N30.10 Nocturia more than twice per night R35.1 Chronic UTI (urinary tract infection) N39.0 Urge incontinence of urine N39.41
== END 2024-03-05 13:54 | disposition home or self-care (01) ==
LOC: HO.HUSH 13:22
PROVIDERS: PCP Nurse Practitioner Family; Visit Provider Urology
DX: N30.10 Interstitial cystitis (chronic) without hematuria (principal); R35.1 Nocturia; N39.0 Urinary tract infection, site not specified; N39.41 Urge incontinence
CPT/HCPCS: 99442

== ENCOUNTER 2024-03-26 08:26 | Outpatient (REF) | payer MEDICARE, MEDICAID, SELFPAY ==
--- NOTE | ~2024-03-26 | MR_ITS ---
EXAMINATION: MR BRAIN WITHOUT IV CONTRAST HISTORY: R79.89 - Other specified abnormal findings of blood chemistry TECHNIQUE: Sagittal T1, and axial FLAIR, T2, and diffusion weighted MR images of the brain were obtained. In addition, sagittal and coronal thin section T1-weighted images were obtained through the pituitary. However, the patient refused intravenous contrast administration. COMPARISON: Correlation is made with an unenhanced head CT dated 11/18/2023. FINDINGS: There are scattered periventricular and subcortical T2 hyperintense white matter foci on the FLAIR and T2-weighted images which are nonspecific but often seen with small vessel ischemic disease. There is no mass effect or midline shift. No intra or extra-axial fluid collections are identified. There are no foci of restricted diffusion. The pituitary gland is normal in size and shape. There is a normal posterior pituitary bright spot. Evaluation for masses is limited. Normal vascular flow voids are noted in the basilar and carotid arteries. The visualized paranasal sinuses are clear. MR/MR head/brain wo con IMPRESSION: 1. Nonspecific white matter hyperintensities, often seen in the setting of small vessel ischemic disease. Differential diagnostic considerations include migraine, Lyme disease, demyelinating disease, vasculitis. 2. The pituitary is normal in size and shape. Evaluation for masses is limited without intravenous contrast. Electronically signed by: Vikas Mayo MD 03/27/2024 02:[address] [facility]
== END 2024-03-26 08:27 | disposition home or self-care (01) ==
LOC: HO.MRI 08:26
PROVIDERS: PCP Nurse Practitioner Family; Visit Provider Internal Medicine Gastroenterology
DX: R79.89 Other specified abnormal findings of blood chemistry (principal)
CPT/HCPCS: 70551

== ENCOUNTER → 2024-03-26 08:39 | Outpatient (BNV) | payer MEDICARE, MEDICAID, SELFPAY | PROVIDERS: PCP Nurse Practitioner Family; Visit Provider Radiology Diagnostic Radiology | DX: R79.89 Other specified abnormal findings of blood chemistry (principal) | CPT/HCPCS: 70551 ==

== ENCOUNTER 2024-04-05 10:56 | Outpatient (AMB) | payer MEDICARE, MEDICAID, SELFPAY ==
[2024-04-05 11:01] VITALS: BP 82/54; PULSE 94; O2SAT 98; BMI 23.6
--- NOTE | 2024-04-05 11:01 | HO.NEPHOV ---
Vital Signs 04/05/24 11:01 Height 5 ft 5.5 in Weight 144 lb BMI 23.6 BP 82/54 L Blood Pressure Location Rt brachial Position Sitting Pulse 94 Pulse Source Pulse Oximeter Pulse Oximetry (%) 98 Oxygen Delivery Method Room Air Intake Visit Reasons: Dr Murillo PT- High BP Senior Financial Required: No Accompanied by: Self / Same As Patient Allergies sertraline [From ZOLOFT] Allergy (Intermediate, Verified 04/05/24 11:04) prolonged QT interval Sulfa (Sulfonamide Antibiotics) [SULFA (SULFONAMIDE ANTIBIOTICS)] Allergy (Intermediate, Verified 04/05/24 11:04) RASH haloperidol [From Haldol] Allergy (Mild, Verified 04/05/24 11:04) unknown morphine [MORPHINE] Allergy (Mild, Verified 04/05/24 11:04) Rash NSAIDS (Non-Steroidal Anti-Inflamma [NSAIDS (NON-STEROIDAL ANTI-INFLAMMA] Adverse Reaction (Intermediate, Verified 04/05/24 11:04) STOMACH UPSET fentanyl patch Allergy (Severe, Uncoded 01/23/24 14:07) Unresponsive Medication List - Last Reconciled 04/05/24 by Lopez Cota MD albuterol sulfate 1 vial inhalation Q6H albuterol sulfate 90 mcg/actuation (Ventolin HFA) 1 inh inhalation Q4H PRN carvedilol 6.25 mg PO BID 90 days clonazepam 1 mg PO TID fesoterodine ER (Toviaz) 4 mg PO DAILY 30 days hydrocortisone orally 2 times a day; 10 mg at 8 AM and 5 mg at 6 PM hydroxyzine pamoate (Vistaril) 25 mg PO BEDTIME metoclopramide HCl 5 mg PO BEDTIME PRN montelukast 1 tab PO DAILY nortriptyline 75 mg PO DAILY oxycodone 5 mg PO Q4-5H oxycodone myristate CR-ER (Xtampza ER) 18 mg PO DAILY pantoprazole 40 mg PO BID quetiapine 100 mg PO BEDTIME tamsulosin 0.4 mg PO BEDTIME thiamine HCl (vitamin B1) 100 mg PO DAILY zolpidem 5 mg PO BEDTIME PRN HPI Comments Details: 46 year old with history of chronic gastritis, anxiety, depression, history of lap band removal, hypertension, FLOWER, bipolar disorder as well as interstitial cystitis who follows up closely with Urology for her cystitis, was seen in follow up for hypertension. She had normal renal functions but hsa H/O MELANY which has been resolved. She has been having BP spikes when her pain control is not optimal. She is on pain medications. She feels she needs long acting pain medications. She claims to have family history of renal dysfunction ( Mom). There was no family history of any sensorineural deafness, Alport syndrome, thin membrane disease. She is not a diabetic. 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 She denies taking excessive nonsteroidal anti-inflammatories. Her blood pressure is at goal in the office today. 04/05/24 Seen for follow up She says she was admitted to [facility] with [facility]. Sustained MELANY Meds were changed. Also, BP has been low. Cortisol is low Refered to Endocrine by on - no appt yet Currently on Coreg 6.25 BID Overall she has lost about 130 lbs since here gastric bypass in 2021 [facility] Medical History Takotsubo cardiomyopathy Burn injury Arthritis Low back pain Elevated cholesterol SOB (shortness of breath) Asthma Numbness Mood disorder IBS (irritable bowel syndrome) OAB (overactive bladder) HTN (hypertension) Sleep apnea Hypersomnia Anxiety Surgical History Hx of gastric bypass Hx of total knee replacement Hx of knee surgery Hx of hernia repair History of cystoscopy Hx of laparoscopic gastric banding Hx of hysterectomy History of H/O gastric bypass Hx of endoscopy History of colonoscopy Family History Father Hx of colon cancer, stage IV Mother Family history of high blood pressure Social History Are you a primary medicare nurse to a significant other at home: No Do you presently have visiting nurse or other home services: No Alcohol intake: never Comment: previously medicated Patient Tobacco Use Status: Never used Tobacco Substance Use Type: Marijuana Review of Systems Const Denies fever(s) Card Denies chest pain Resp Denies cough and Denies hemoptysis GI Denies abdominal pain, Denies diarrhea and Denies nausea Musc Denies back pain Neuro Denies focal weakness Physical Exam Vital Signs: Last Vital Signs Pulse 94 04/05/24 11:01 BP 82/54 L 04/05/24 11:01 Pulse Ox 98 04/05/24 11:01 Oxygen Delivery Method Room Air 04/05/24 11:01 BMI result Body Mass Index 23.6 Comfortable Neck supple no JVD. Lungs entry equal no rales. Heart S1-S2 heard no gallop or rub. Abdomen soft nontender. Neuro alert awake oriented. No asterixis. Extremities no edema. Results Reviewed Results Reviewed: Recent Creatinine as on Mar 2024 = 0.9 Nephrology Results: Sodium 141 mmol/L (135-145) 01/18/24 Potassium 3.8 mmol/L (3.3-5.1) 01/18/24 Chloride 107 mmol/L (96-108) 01/18/24 Carbon Dioxide 25 mmol/L (22-29) 01/18/24 BUN 7 mg/dL (9-16) L 01/18/24 Creatinine 0.80 mg/dL (0.5-1.4) 01/18/24 Assessment & Plan Assessment & Plan (1) HTN (hypertension): Code(s): I10 - Essential (primary) hypertension Category: Medical Qualifiers: Hypertension type: primary hypertension Qualified Code(s): I10 - Essential (primary) hypertension (2) Low serum cortisol level: Code(s): R79.89 - Other specified abnormal findings of blood chemistry Category: Medical Plan Her renal functions is at baseline now. Her last renal ultrasound was normal. She has not known to have blood or protein in the urine. She is known to have interstitial cystitis for which she is closely followed up by her urologist. She avoids nonsteroidal anti-inflammatories . I asked her to C/W Carvedilol 6.25 mg bid and Spironolactone 12.5 mg AM. She recently had an ECHO/Cardiac MRI. Her serum potassium is normal. Her BP spikes are happening at the time of sub optimal pain control. She strongly feels these spikes of BP and resultant ER visits could be avoided if she is on long acting narcotics. I did not make any other medication changes today.I answered all questions. 04/05/24 At present BP is rather LOW Low BP may be due to both the combination of automic dysfunction secondary to massive weight loss post gastric bypass and /or adrenal insufficiency Advised to skip the evening dose of Coreg Restart at 3.125 mg BID tomorrow If SBP stays < 100, she would have to hold Coreg She understands the plan MELANY has resolved. Low cortisol Work up in progress Await Endocrine evaluation Will order again Orders: Referrals Endocrinology Referral R79.89 - Other specified abnormal findings of blood chemistry Coding Level of Care Code Est Pt Level 4 (02642) Diagnoses Primary hypertension I10 Hypertension type: primary hypertension Low serum cortisol level R79.89
== END 2024-04-05 11:22 | disposition home or self-care (01) ==
PROVIDERS: PCP Nurse Practitioner Family; Visit Provider Internal Medicine Hypertension Specialist
DX: I10 Essential (primary) hypertension (principal); R79.89 Other specified abnormal findings of blood chemistry
CPT/HCPCS: 99214

== ENCOUNTER → 2024-04-05 10:56 | Outpatient (BNVA) | payer MEDICARE, MEDICAID, SELFPAY | PROVIDERS: PCP Nurse Practitioner Family; Visit Provider Internal Medicine Hypertension Specialist | DX: I10 Essential (primary) hypertension (principal); R79.89 Other specified abnormal findings of blood chemistry | CPT/HCPCS: 99212 ==

== ENCOUNTER 2024-04-06 10:01 | Emergency (ER) | payer MEDICARE, MEDICAID, SELFPAY ==
[2024-04-06 10:14] VITALS: BP 128/78; PULSE 76; RESP 18; TEMP 36.8; O2SAT 99; BMI 24.0
--- NOTE | 2024-04-06 10:26 | ECG_ITS ---
Test Reason : WEAKNESS Blood Pressure : */* mmHG Vent. Rate : 78 BPM Atrial Rate : 78 BPM P-R Int : 194 ms QRS Dur : 74 ms QT Int : 406 ms P-R-T Axes : 65 19 41 degrees QTcB Int : 462 ms Normal sinus rhythm Possible Left atrial enlargement Borderline ECG When compared with ECG of 25-Jan-2022 16:48, Nonspecific T wave abnormality no longer evident in Inferior leads Nonspecific T wave abnormality no longer evident in Lateral leads Referred By: Marina Andrade Electronically Signed By: AMILCAR TAFOYA MD
[2024-04-06 11:14] LABS: Appearance Urine Clear; Color Urine Yellow; Glucose Urine UA Negative (Negative); Leukocyte Esterase Urine Trace (Negative); Nitrite Urine Negative (Negative); PH 5.5 (5.0-9.0); UMIC TRIGGER UACC YES; Urine Blood Negative (Negative); Urine Ketones Negative (Negative); Urine Protein Negative (Neg-Trace)
[2024-04-06 11:16] LABS: Bacteria Urine None Seen (None Seen); Hyaline Casts Urine 0-2 /LPF (0-2); RBC Urine 0-2 /HPF (0-2); Squamous Epithelial Cell Urine 0-2 /HPF (0-2); WBC Urine 0-5 /HPF (0-5)
--- NOTE | 2024-04-06 11:36 | ED_ITS ---
HPI - General Adult General Chief complaint: General Medical Stated complaint: multiple symptoms Time Seen by Provider: 04/06/24 10:25 Source: patient and old records reviewed Mode of arrival: wheelchair Limitations: no limitations History of Present Illness ED Provider: СЕРГЕЙ RUBI narrative: 48 yo female with extensive bariatric hx including slipped lap band, gastric sleeve, gastric bypass and recent JAMI of adhesions in June by her surgeon Dr. Allen, she also has adrenal insuffiency on hydrocortisone daily, hiatal hernia, HTN, nonischemic cardiomyopathy EF 50%, asthma, chronic UTI, MELANY, chronic joint pain, chronic abdominal pain, chronic n/v she states she lives at [facility] and had a recent admit from 03/16 to 03/19 for MELANY and n/v. She is on daily ER oxycodone TID. She went to [facility] office today for her GI follow up and he felt she looked more ill she notes no new pain no difference in n/v but she feels weak and has some body aches and runny nose. She feels she is coming down with something. She took her hydrocortisone this AM. She states her visit today for her and [facility] usually keeps her and she stays NPO for a day. MD complaint: multiple complaints Onset (ago): year(s) Location: abdomen Radiation: non-radiation Severity: moderate Quality: aching Pain Consistency: constant Relieving factors: none Exacerbating factors: eating Associated symptoms: loss of appetite, malaise, nausea/vomiting and weakness Treatments prior to arrival: other (Rx medications) Related Data Home Medications ?Medication ?Instructions ?Recorded ?Confirmed albuterol sulfate 2.5 mg/3 mL 1 vial inhalation Q6H 10/07/20 04/05/24 (0.083 %) solution for nebulization montelukast 10 mg tablet 1 tab PO DAILY 10/07/20 04/05/24 zolpidem 5 mg tablet 5 mg PO BEDTIME PRN Insomnia 09/25/21 04/05/24 albuterol sulfate 90 mcg/actuation 1 inh inhalation Q4H PRN Shortness 11/26/22 04/05/24 aerosol inhaler (Ventolin HFA) Of Breath pantoprazole 40 mg tablet,delayed 40 mg PO BID 10/14/23 04/05/24 release metoclopramide HCl 5 mg tablet 5 mg PO BEDTIME PRN gi distress 12/12/23 04/05/24 oxycodone 15 mg tablet 5 mg PO Q4-5H 12/12/23 04/05/24 thiamine HCl (vitamin B1) 100 mg 100 mg PO DAILY 12/12/23 04/05/24 tablet clonazepam 1 mg tablet 1 mg PO TID 04/05/24 04/05/24 nortriptyline 75 mg capsule 75 mg PO DAILY 04/05/24 04/05/24 oxycodone myristate 18 mg capsule 18 mg PO DAILY 04/05/24 04/05/24 sprinkle extended release 12hr(DON'T CRUSH) (Xtampza ER) quetiapine 100 mg tablet 100 mg PO BEDTIME 04/05/24 04/05/24 Previous Rx's ?Medication ?Instructions ?Recorded carvedilol 6.25 mg tablet 6.25 mg PO BID 90 days #180 tabs 12/12/23 hydroxyzine pamoate 25 mg capsule 25 mg PO BEDTIME #30 caps 01/23/24 (Vistaril) tamsulosin 0.4 mg capsule 0.4 mg PO BEDTIME help with 02/14/24 urinary flow #30 caps hydrocortisone 5 mg tablet See Rx Instructions PO BID #90 tabs 02/25/24 fesoterodine 4 mg tablet,extended 4 mg PO DAILY 30 days #30 tabs 03/05/24 release 24 hr (Toviaz) Allergies Allergy/AdvReac Type Severity Reaction Status Date / Time sertraline [From ZOLOFT] Allergy Intermediate prolonged Verified 04/06/24 10:18 QT interval Sulfa (Sulfonamide Allergy Intermediate RASH Verified 04/06/24 10:18 Antibiotics) [SULFA (SULFONAMIDE ANTIBIOTICS)] haloperidol [From Haldol] Allergy Mild unknown Verified 04/06/24 10:18 morphine [MORPHINE] Allergy Mild Rash Verified 04/06/24 10:18 NSAIDS (Non-Steroidal AdvReac Intermediate STOMACH Verified 04/06/24 10:18 Anti-Inflamma UPSET [NSAIDS (NON-STEROIDAL ANTI-INFLAMMA] fentanyl patch Allergy Severe Unresponsiv Uncoded 04/06/24 10:18 e Review of Systems 2 Review of Systems: Constitutional : No Fever, No Chills, pos fatigue ENT/Mouth : No sore throat, pos Rhinorrhea Eyes: No Swelling, No Redness Cardiovascular : No Chest Pain, No SOB, No Edema Respiratory : No Cough, No Sputum, No Wheezing Gastrointestinal : Positive Nausea, Positive Vomiting, no Diarrhea, positive abdominal Pain, No Hematochezia, No Melena Genitourinary : No Dysuria, No Urinary Frequency, No Hematuria, No Urgency Musculoskeletal : pos joint pain, pos Myalgias, No Joint Swelling Skin : No Skin Lesions, No rash Neuro : pos Weakness, No Numbness, No Dizziness, No Headache All other systems reviewed and are negative. [facility] Past Medical History Attestation statement: The following information was validated with the patient. Source: old records reviewed Medical History Takotsubo cardiomyopathy Burn injury Arthritis Low back pain Elevated cholesterol SOB (shortness of breath) Asthma Numbness Mood disorder IBS (irritable bowel syndrome) OAB (overactive bladder) HTN (hypertension) Sleep apnea Hypersomnia Anxiety Surgical History Hx of gastric bypass Hx of total knee replacement Hx of knee surgery Hx of hernia repair History of cystoscopy Hx of laparoscopic gastric banding Hx of hysterectomy History of H/O gastric bypass Hx of endoscopy History of colonoscopy Family History Family History Father Hx of colon cancer, stage IV Mother Family history of high blood pressure Social History Social History Are you a primary outdoor emergency care technician to a significant other at home: No Do you presently have visiting nurse or other home services: No Alcohol intake: never Comment: previously medicated Patient Tobacco Use Status: Never used Tobacco Substance Use Type: Marijuana Advance Directives: Yes Advance Directives Information Provided: Yes Advance Directives on File: No Do you have a plan to hurt others: No Plan Physical Exam ED Vital Signs: Vital Signs - 24 hr 04/06/24 10:14 Temperature 98.3 F Pulse Rate 76 Respiratory Rate 18 Blood Pressure 128/78 Pulse Oximetry 99 Oxygen Delivery Method Room Air BMI result Body Mass Index 24.0 Appearance: Alert. Oriented X3. No acute distress. Eyes: Pupils equal, round and reactive to light. ENT: Pharynx mildly dry MM Neck: Normal inspection. Neck supple. CVS: Normal heart rate and rhythm. Pulses normal. Respiratory: No respiratory distress. Breath sounds normal. Abdomen: Soft and mild diffuse ttp but no rebound or guarding and not distended Skin: Skin warm and dry. pale skin color. Normal skin turgor. Extremities: No lower extremity edema. Neuro: Oriented X 3. No motor deficit. No sensory deficit. CN2-12 intact Medications Administered Discontinued Medications Generic Name Dose Route Start Last Admin Trade Name Alvarezq PRN Reason Stop Dose Admin Hydrocortisone Sodium Succinate 50 mg 04/06/24 10:26 04/06/24 11:55 Hydrocortisone Sod Succ/Pf 100 Mg Vial IVPUSH 04/06/24 10:27 50 mg ONCE ONE Administration Hydromorphone HCl 1 mg 04/06/24 10:38 04/06/24 11:54 Hydromorphone Hcl 1 Mg/Ml Syringe IVPUSH 04/06/24 10:39 1 mg ONCE ONE Administration Protocol Lactated Ringer's 1,000 mls @ 999 mls/hr 04/06/24 10:26 04/06/24 11:55 Lr IV 04/06/24 11:26 999 mls/hr .Q1H1M ONE Administration Prochlorperazine Edisylate 10 mg 04/06/24 10:38 04/06/24 11:55 Prochlorperazine Edisylate 10 Mg/2 Ml Vial IVPUSH 04/06/24 10:39 10 mg ONCE ONE Administration Medical Decision Making Medical Decision Making MDM Narrative: 48 yo female with extensive bariatric hx including slipped lap band, gastric sleeve, gastric bypass and recent JAMI of adhesions in June by her surgeon Dr. Allen, she also has adrenal insuffiency on hydrocortisone daily, hiatal hernia, HTN, nonischemic cardiomyopathy EF 50%, asthma, chronic UTI, MELANY, chronic joint pain, chronic abdominal pain, chronic n/v she now reports unchanged chronic issues but feels she is coming down with something like a cold possibly. At this time she will need labs, IV pain control for her chronic pain issues, nausea medications, labs and EKG. Will also obtain UA to look for UTI Differential Diagnosis Differential Diagnoses: The differential diagnosis associated with the presentation includes anemia, dehydration, chronic GI issues, FTT Admission/Observation Consideration of admission/observation: Escalation of care including admission/observation considered labs reassuring she is eating and drinking she feels she can go home and tolerate PO Consult Healthcare Provider Management of the patient was discussed with: Distresser Lab Data MDM Lab Attestation statement: I reviewed the patient's lab results. 04/06/24 11:44 04/06/24 11:44 Labs: Lab Results 04/06/24 04/06/24 Range/Units 11:08 11:44 WBC 7.2 (4.8-10.8) X10*3/uL RBC 3.19 L (4.20-5.50) X10*6/uL Hgb 9.1 L (12.0-16.0) g/dl Hct 27.2 L (37.0-47.0) % MCV 85.3 (80.0-98.0) fL MCH 28.5 (27.0-33.0) pg MCHC 33.5 (31.0-35.0) g/dl RDW 17.8 H (11.0-16.0) % Plt Count 201 (160-400) X10*3/uL MPV 8.8 L (9.4-12.3) fL Immature Gran % (Auto) 0.4 (0.0-0.4) % Neut % (Auto) 53.1 (45-73) % Lymph % (Auto) 34.9 (20-40) % [facility] % (Auto) 10.4 (2-11) % Eos % (Auto) 0.6 (0-4) % Baso % (Auto) 0.6 (0-2) % Lymph # (Auto) 2.5 (1.2-4.9) X10*3/uL [facility] # (Auto) 0.8 (0.1-1.2) X10*3/uL Eos # (Auto) 0.0 (0.0-0.4) X10*3/uL Baso # (Auto) 0.0 (0.0-0.2) X10*3/uL Abs Immat Gran (auto) 0.03 (0.00-0.03) X10*3/uL Absolute Neuts (auto) 3.8 (2.0-8.3) x10*3/uL Absolute Nucleated RBC 0.000 (0.0-0.012) X10*3/uL Nucleated RBC % (auto) 0.0 (0.0-0.2) /100WBC Sodium 142 (135-145) mmol/L Potassium 3.7 (3.3-5.1) mmol/L Chloride 111 H (96-108) mmol/L Carbon Dioxide 25 (22-29) mmol/L Anion Gap 10 L (12-20) BUN 11 (9-16) mg/dL Creatinine 0.78 (0.5-1.4) mg/dL Estim Creat Clear Calc 80.2 Estimated GFR > 60 Random Glucose 74 (60-115) mg/dL Calcium 8.2 L D (8.4-10.2) mg/dL Magnesium 2.0 (1.6-2.6) mg/dL Total Bilirubin 0.2 (0.0-1.0) mg/dL Direct Bilirubin < 0.2 (0.0-0.5) mg/dL AST 18 (5-31) U/L ALT 12 (0-31) U/L Troponin I High Sens < 2.7 (<3.5-17.0) ng/L C-Reactive Protein 0.50 (< or = 0.50) mg/dL Total Protein 6.8 (6.5-8.0) g/dL Albumin 3.6 (3.5-5.0) g/dL Lipase 25 (8-78) U/L Procalcitonin < 0.02 ng/mL TSH 0.39 (0.32-4.0) uIU/mL Urine Color Yellow Urine Appearance Clear Urine pH 5.5 (5.0-9.0) Ur Specific [place] 1.010 (1.005-1.025) Urine Protein Negative (Neg-Trace) mg/dL Urine Glucose (UA) Negative (Negative) mg/dL Urine Ketones Negative (Negative) mg/dL Urine Blood Negative (Negative) Urine Nitrite Negative (Negative) Ur Leukocyte Esterase Trace H (Negative) Urine RBC 0-2 (0-2) /HPF Urine WBC 0-5 (0-5) /HPF Ur Squamous Epith Cells 0-2 (0-2) /HPF Urine Bacteria None Seen (None Seen) Hyaline Casts 0-2 (0-2) /LPF Influenza Type A (PCR) NEGATIVE (Negative) Influenza Type B (PCR) NEGATIVE (Negative) RSV RNA Qual (PCR) NEGATIVE (Negative) SARS-CoV-2 RNA (RT-PCR) NEGATIVE (Negative) Independent Interpretation I performed an independent interpretation of an: EKG Interpretation: Rate: 78 Rhythm: NSR [place]: normal Normal P waves. Normal NOEL. Normal QRS complex. ST T wave : normal no BARBRA, inverted t waves V1-V2 qTC: 462 prior studies: no acute ischemia The study has been interpreted contemporaneously by me. . Independent Historian Clinical information obtained from an independent historian. History obtained from or confirmed by: EMS External Record Review External record reviewed: Inpatient record and Outpatient record Prescription Management I considered prescription management with: Other Discharge Plan Discharge Clinical Impression: Chronic abdominal pain Nausea & vomiting Qualifiers: Vomiting type: unspecified Qualified Code(s): R11.2 - Nausea with vomiting, unspecified Patient Disposition: Home, Self-Care Instructions: Acute Nausea and Vomiting (ED), Chronic Abdominal Pain (ED) Additional Instructions: no UTI, labs reassuring kidney function normal return for any worsening symptoms or concerns tests for heart were not elevated either negative for flu, covid, rsv follow up with your specialists, take your medications as prescribed. Prescriptions: No Action hydrocortisone 5 mg tablet See Rx Instructions PO BID Qty: 90 1RF Rx Instructions: orally 2 times a day; 10 mg at 8 AM and 5 mg at 6 PM albuterol sulfate 2.5 mg /3 mL (0.083 %) solution for nebulization 1 vial inhalation Q6H montelukast 10 mg tablet 1 tab PO DAILY tamsulosin 0.4 mg capsule 0.4 mg PO BEDTIME Qty: 30 3RF zolpidem 5 mg tablet 5 mg PO BEDTIME PRN (Reason: Insomnia) pantoprazole 40 mg tablet,delayed release (DR/EC) 40 mg PO BID metoclopramide HCl 5 mg tablet 5 mg PO BEDTIME PRN (Reason: gi distress) thiamine HCl (vitamin B1) 100 mg tablet 100 mg PO DAILY carvedilol 6.25 mg tablet 6.25 mg PO BID 90 Days Qty: 180 4RF hydroxyzine pamoate [Vistaril] 25 mg capsule 25 mg PO BEDTIME Qty: 30 2RF fesoterodine [Toviaz] 4 mg tablet extended release 24 hr 4 mg PO DAILY 30 Days Qty: 30 4RF quetiapine 100 mg tablet 100 mg PO BEDTIME nortriptyline 75 mg capsule 75 mg PO DAILY clonazepam 1 mg tablet 1 mg PO TID Xtampza ER 18 mg cap,sprinkl,ER12hr(DONT CRUSH) 18 mg PO DAILY albuterol sulfate [Ventolin HFA] 90 mcg/actuation HFA aerosol inhaler 1 inh inhalation Q4H PRN (Reason: Shortness Of Breath) oxycodone 15 mg tablet 5 mg PO Q4-5H Print Language: [place]
[2024-04-06 11:49] LABS: MANUAL DIFF FLAG NO
[2024-04-06 11:51] LABS: Basophils Percent Auto 0.6 % (0-2); Eosinophils Percent Auto 0.6 % (0-4); Hematocrit 27.2 % (37.0-47.0); Hemoglobin 9.1 g/dl (12.0-16.0); Imm Gran Abs Auto 0.03 X10*3/uL (0.00-0.03); Imm Gran Pct Auto 0.4 % (0.0-0.4); Lymphocytes Absolute Auto 2.5 X10*3/uL (1.2-4.9); Lymphocytes Percent Auto 34.9 % (20-40); Mean Corpuscular HGB Conc 33.5 g/dl (31.0-35.0); Mean Corpuscular Hemoglobin 28.5 pg (27.0-33.0); Mean Corpuscular Volume 85.3 fL (80.0-98.0); Mean Platelet Volume 8.8 fL (9.4-12.3); Monocytes Absolute Auto 0.8 X10*3/uL (0.1-1.2); Monocytes Percent Auto 10.4 % (2-11); Neutrophils Absolute Auto 3.8 x10*3/uL (2.0-8.3); Neutrophils Percent Auto 53.1 % (45-73); Platelet Count 201 X10*3/uL (160-400); Red Blood Count 3.19 X10*6/uL (4.20-5.50); Red Cell Distribution Width 17.8 % (11.0-16.0); White Blood Count 7.2 X10*3/uL (4.8-10.8)
[2024-04-06 11:53] LABS: Influenza A PCR NEGATIVE (Negative); Influenza B PCR NEGATIVE (Negative); Resp Syncy Virus RNA Qual PCR NEGATIVE (Negative); SARS COV2 PCR INHOUSE NEGATIVE (Negative)
[2024-04-06] MEDS: HYDROmorphone HCl 1 MG/ML SYRINGE IVPUSH (11:54)
[2024-04-06] MEDS: Hydrocortisone Sod Succ/PF 100 MG VIAL 50 MG IVPUSH (11:55)
[2024-04-06] MEDS: Lactated Ringers 1,000 ML 999 ML IV (11:55)
[2024-04-06] MEDS: Prochlorperazine Edisylate 10 MG/2 ML VIAL IVPUSH (11:55)
[2024-04-06 12:12] LABS: Troponin-I High Sensitivity < 2.7 ng/L (<3.5-17.0)
[2024-04-06 12:17] LABS: Alanine Aminotransferase 12 U/L (0-31); Albumin Level 3.6 g/dL (3.5-5.0); Anion Gap 10 (12-20); Aspartate Amino Transferase 18 U/L (5-31); Bilirubin Direct < 0.2 mg/dL (0.0-0.5); Bilirubin Total 0.2 mg/dL (0.0-1.0); Blood Urea Nitrogen 11 mg/dL (9-16); Calcium 8.2 mg/dL (8.4-10.2); Carbon Dioxide 25 mmol/L (22-29); Chloride 111 mmol/L (96-108); Creatinine Clr Calc Pharmacy 80.2; Estimated Glomerular Filt Rate > 60; Glucose Random 74 mg/dL (60-115); Lipase 25 U/L (8-78); Potassium 3.7 mmol/L (3.3-5.1); Sodium 142 mmol/L (135-145); Total Protein 6.8 g/dL (6.5-8.0)
[2024-04-06 12:27] LABS: Procalcitonin < 0.02 ng/mL; TSH reflex Free T4 0.39 uIU/mL (0.32-4.0)
[2024-04-06 13:50] VITALS: BP 128/78; PULSE 76; RESP 18; TEMP 36.8; O2SAT 99
[2024-04-06 14:10] LABS: Alkaline Phosphatase 70 U/L (39-117)
== END 2024-04-06 13:51 | disposition home or self-care (01) ==
PROVIDERS: Emergency Provider Emergency Medicine; PCP Nurse Practitioner Family
DX: R10.2 Pelvic and perineal pain (principal); R11.2 Nausea with vomiting, unspecified; R94.31 Abnormal electrocardiogram [ECG] [EKG]; I10 Essential (primary) hypertension; Z98.84 Bariatric surgery status; Z03.818 Encounter for observation for suspected exposure to other biological agents ruled out; Z79.899 Other long term (current) drug therapy
CPT/HCPCS: 0241U; 80048; 80076; 81001; 83690; 83735; 84145; 84443; 84484; 85025; 86140; 93005; 96361; 96374; 96375; 99212; 99284; J0737; J1171; J1720; J7120

== ENCOUNTER → 2024-04-06 10:26 | Outpatient (BNV) | payer MEDICARE, MEDICAID, SELFPAY | PROVIDERS: Emergency Provider Emergency Medicine; PCP Nurse Practitioner Family; Visit Provider Internal Medicine Cardiovascular Disease | DX: R94.31 Abnormal electrocardiogram [ECG] [EKG] (principal) | CPT/HCPCS: 93010 ==

== ENCOUNTER → 2024-04-09 12:52 | Outpatient (BNV) | payer MEDICARE, MEDICAID, SELFPAY | PROVIDERS: Admitting Provider Nurse Practitioner Acute Care; Emergency Provider Emergency Medicine; PCP Nurse Practitioner Family; Visit Provider Internal Medicine | DX: R94.31 Abnormal electrocardiogram [ECG] [EKG] (principal) | CPT/HCPCS: 93010 ==

== ENCOUNTER → 2024-04-09 15:53 | Outpatient (BNV) | payer MEDICARE, MEDICAID, SELFPAY | PROVIDERS: Admitting Provider Nurse Practitioner Acute Care; Emergency Provider Emergency Medicine; PCP Nurse Practitioner Family; Visit Provider Internal Medicine Gastroenterology | DX: R62.7 Adult failure to thrive (principal); R63.8 Other symptoms and signs concerning food and fluid intake; R10.13 Epigastric pain; K29.70 Gastritis, unspecified, without bleeding; K20.90 Esophagitis, unspecified without bleeding | CPT/HCPCS: 43239; 99223; 99232; 99233 ==

== ENCOUNTER → 2024-04-09 15:53 | Outpatient (BNV) | payer MEDICARE, MEDICAID, SELFPAY | PROVIDERS: Admitting Provider Nurse Practitioner Acute Care; Emergency Provider Emergency Medicine; PCP Nurse Practitioner Family; Visit Provider Nurse Practitioner Acute Care | DX: I10 Essential (primary) hypertension (principal) | CPT/HCPCS: 99232; 99239 ==

== ENCOUNTER → 2024-04-11 08:45 | Outpatient (BNV) | payer MEDICARE, MEDICAID, SELFPAY | PROVIDERS: Admitting Provider Nurse Practitioner Acute Care; Emergency Provider Emergency Medicine; PCP Nurse Practitioner Family; Visit Provider Radiology Diagnostic Radiology | DX: N20.0 Calculus of kidney (principal); J18.0 Bronchopneumonia, unspecified organism; R05.9 Cough, unspecified | CPT/HCPCS: 71045; 74150 ==

== ENCOUNTER 2024-04-18 10:30 | Outpatient (AMB) | payer MEDICARE, MEDICAID, SELFPAY ==
--- NOTE | 2024-04-18 10:50 | HO.NEPHOV_ITS ---
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: No Accompanied by: Self / Same As Patient Allergies sertraline [From ZOLOFT] Allergy (Intermediate, Verified 04/18/24 10:53) prolonged QT interval Sulfa (Sulfonamide Antibiotics) [SULFA (SULFONAMIDE ANTIBIOTICS)] Allergy (Intermediate, Verified 04/18/24 10:53) RASH haloperidol [From Haldol] Allergy (Mild, Verified 04/18/24 10:53) unknown morphine [MORPHINE] Allergy (Mild, Verified 04/18/24 10:53) Rash NSAIDS (Non-Steroidal Anti-Inflamma [NSAIDS (NON-STEROIDAL ANTI-INFLAMMA] Adverse Reaction (Intermediate, Verified 04/18/24 10:53) STOMACH UPSET fentanyl patch Allergy (Severe, Uncoded 04/06/24 10:18) Unresponsive HPI Comments Details: 46 year old with history of chronic gastritis, anxiety, depression, history of lap band removal, hypertension, FLOWER, bipolar disorder as well as interstitial cystitis who follows up closely with Urology for her cystitis, was seen in follow up for hypertension. She had normal renal functions but hsa H/O MELANY which has been resolved. She has been having BP spikes when her pain control is not optimal. She is on pain medications. She feels she needs long acting pain medications. She claims to have family history of renal dysfunction ( Mom). There was no family history of any sensorineural deafness, Alport syndrome, thin membrane disease. She is not a diabetic. 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 She denies taking excessive nonsteroidal anti-inflammatories. Her blood pressure is at goal in the office today. [facility] Medical History (Updated 04/18/24 @ 11:06 by Serge Murillo MD) HTN (hypertension) Decreased oral intake Takotsubo cardiomyopathy Burn injury Arthritis Low back pain Elevated cholesterol SOB (shortness of breath) Asthma Numbness Mood disorder IBS (irritable bowel syndrome) OAB (overactive bladder) Sleep apnea Hypersomnia Anxiety Surgical History Hx of gastric bypass Hx of total knee replacement Hx of knee surgery Hx of hernia repair History of cystoscopy Hx of laparoscopic gastric banding Hx of hysterectomy History of H/O gastric bypass Hx of endoscopy History of colonoscopy Family History Father Hx of colon cancer, stage IV Mother Family history of high blood pressure Social History Household Members: Children Household Members Other:: My son Housing: Apartment Are you a primary day care provider to a significant other at home: No Do you presently have visiting nurse or other home services: Yes (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) Alcohol intake: never Comment: previously medicated Patient Tobacco Use Status: Never used Tobacco e-Cigarette/Vaping Use: Never Used Second Hand Smoke Exposure: No Substance Use Type: Marijuana service: No Review of Systems Const All systems reviewed & are unremarkable except as noted in HPI and below Physical Exam Vital Signs: Last Vital Signs BP 90/60 04/18/24 10:53 BMI result Body Mass Index 24.0 Const General: comfortable and no acute distress Orientation/consciousness: patient oriented x3 HEENT Head: Yes normocephalic Mouth: Normal oral and palatal mucosa present Eyes EOM: EOMs intact bilaterally Neck Neck: Yes supple Resp Auscultation: clear to auscultation bilaterally Cardio Jugular venous distension: no JVD Rate: regular rate GI Palpation (GI): Soft to palpation Auscultation: normal bowel sounds General: Yes no CVA tenderness Back/Spine/Pelvis Back: no CVA tenderness Skin General skin exam: no rashes or lesions noted Neuro General: patient oriented x3 and moves all extremities Extrem General: Yes no pedal edema Results Reviewed Nephrology Results: Hgb 10.5 g/dl (12.0-16.0) L 04/10/24 WBC 6.2 X10*3/uL (4.8-10.8) 04/10/24 Plt Count 205 X10*3/uL (160-400) 04/10/24 Sodium 140 mmol/L (135-145) 04/10/24 Potassium 3.9 mmol/L (3.3-5.1) 04/10/24 Chloride 109 mmol/L (96-108) H 04/10/24 Carbon Dioxide 25 mmol/L (22-29) 04/10/24 BUN 6 mg/dL (9-16) L 04/10/24 Creatinine 0.74 mg/dL (0.5-1.4) 04/10/24 Calcium 9.0 mg/dL (8.4-10.2) 04/10/24 Urine Protein Negative mg/dL (Neg-Trace) 04/09/24 Assessment & Plan Assessment & Plan (1) HTN (hypertension): Code(s): I10 - Essential (primary) hypertension Category: Medical Qualifiers: Hypertension type: primary hypertension Qualified Code(s): I10 - Essential (primary) hypertension Plan Her renal functions is at baseline now. Her last renal ultrasound was normal. She has not known to have blood or protein in the urine. She is known to have interstitial cystitis for which she is closely followed up by her urologist. She avoids nonsteroidal anti-inflammatories . I asked her to C/W Carvedilol 6.25 mg bid . She had an ECHO/Cardiac MRI. Her serum potassium is normal. I did not make any other medication changes today.I answered all questions Orders: Orders Blood Urea Nitrogen 3 Months I10 - Essential (primary) hypertension Creatinine 3 Months I10 - Essential (primary) hypertension Electrolytes 3 Months I10 - Essential (primary) hypertension Coding Level of Care Code Est Pt Level 4 (38301) Diagnoses Primary hypertension I10 Hypertension type: primary hypertension
[2024-04-18 10:53] VITALS: BP 90/60; BMI 24.0
--- OUTSIDE RECORDS SUMMARY | 2024-04-18 11:28 | XMS_ITS | Clinical Summary ---
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 0 01/08/2022 Active clonazePAM (KlonoPIN) 0.5 MG tablet Take 1 tablet (0.5 mg total) by mouth daily as needed. 0 02/17/2022 Active fluticasone (FLONASE) 50 MCG/ACT nasal spray SHAKE LIQUID AND USE 1 SPRAY IN EACH NOSTRIL TWICE DAILY 0 12/31/2021 Active montelukast (SINGULAIR) 10 MG tablet Take 1 tablet (10 mg total) by mouth every evening. 0 12/18/2021 Active oxyCODONE (ROXICODONE) 15 MG immediate release tablet Take 1 tablet (15 mg total) by mouth. 0 02/16/2022 Active Scopolamine (TRANSDERM-SCOP) 1 MG/3DAYS PLACE 1 MG PATCH INTO THE SKIN EVERY 3 DAYS 0 02/16/2022 Active sucralfate (CARAFATE) 1 g tablet Take 1 tablet (1 g total) by mouth 4 (four) times a day. 0 02/16/2022 Active ursodiol (ACTIGALL) 300 MG capsule Take 2 capsules (600 mg total) by mouth daily. 0 02/02/2022 Active Peppermint Oil 90 MG CPCR Take by mouth. 0 Active albuterol (2.5 MG/3ML) 0.083% NEBU 3 mL, albuterol (5 MG/ML) 0.5% NEBU 0.5 mL Inhale into the lungs. 0 Active divalproex (DEPAKOTE) [address] tablet Take 1 tablet (500 mg total) by mouth daily. 0 Active omeprazole (PriLOSEC) 20 MG capsule Take 1 capsule (20 mg total) by mouth daily. 0 Active Social History Tobacco Use Types Packs/Day Years Used Date Smoking Tobacco: Never Assessed Sex and Gender Information Value Date Recorded Sex Assigned at Not on file Gender Identity Not on file Sexual Orientation Not on file Job Start Date Occupation Industry Not on file Not on file Not on file Last Filed Vital Signs Vital Sign Reading Time Taken Comments Blood Pressure 93/65 02/18/2022 3:06 PM EST Pulse 82 02/18/2022 3:06 PM EST Temperature 36 ??C (96.8 ??F) 02/18/2022 3:06 PM EST Respiratory Rate 18 02/18/2022 3:06 PM EST Oxygen Saturation 97% 02/18/2022 3:06 PM EST Inhaled Oxygen Concentration - - Weight - - Height - - Body Mass Index - - Plan of Treatment Health Maintenance Due Date Last Done Comments Hepatitis C Screening 1976 Depression Screening 1988 Preventative Health Evaluation 1994 Cervical Cancer Screening (Pap Smear) 1997 Hepatitis B Vaccines (3 of 3 - 19+ 3-dose series) 02/18/2010 12/24/2009, 10/19/2004 DTap / Tdap / Td (1 - Tdap) 09/04/2020 09/03/2020 Colon Cancer Screening (Colonoscopy) 2021 COVID-19 Vaccine ( season) 2023 07/13/2020, 06/21/2020 Influenza Vaccine (#1) 2023 , 04/26/2019, 12/27/2017, Additional history exists Pneumococcal Vaccine Aged Out No long er eligible based on patient's age to complete this topic RSV Ped < 20 months Aged Out No longe r eligible based on patient's age to complete this topic
--- OUTSIDE RECORDS SUMMARY | 2024-04-18 11:28 | XMS_ITS | Clinical Summary ---
Author Organization [facility] Address [address] [place] [address] Phone Care Team Providers Care Weight Inspector Name Role Phone Lisseth Nassar SENIOR MASTER SCHEDULER Primary Care Provider [phone] Allergies Active Allergy Reactions Criticality Noted Date Comments Fentanyl Other,Fainting 02/09/2022 Haloperidol Anxiety Low 02/15/2022 Other Reaction(s): Feeling Irritable Morphine Low 08/12/2020 Redness around the site Nsaids (Non-Steroidal Anti-Inflammatory Drug) Other 09/08/2020 GI bleeding Sertraline Other 09/08/2020 Other Reaction(s): QT wave change interferes withQT waves of heart changed my QT interval has a assistant chief nursing officer changed my QT interval has a assistant chief nursing officer Sulfa (Sulfonamide Antibiotics) Rash Low 09/08/2020 Sulfamethoxazole-Trimet hopri Rash High 09/08/2020 Medications Medication Sig Dispensed Refills Start Date End Date Status carvediloL (COREG) 12.5 mg tablet Take 1 tablet (12.5 mg total) by mouth 2 (two) times a day. Active clonazePAM (KlonoPIN) 1 mg tablet Take 1 tablet (1 mg total) by mouth 3 (three) times a day if needed for anxiety. Max Daily Amount: 3 mg Active estradioL (ESTRACE) 0.01 % (0.1 mg/gram) vaginal cream Insert 1 g into the vagina 3 (three) times a week. 10/25/2023 Active fesoterodine 4 mg tablet extended release 24 hr Take 1 tablet by mouth 1 (one) time each day. Active hydrocortisone (CORTEF) 5 mg tablet Take 1-2 tablets (5-10 mg total) by mouth 2 (two) times a day. TAKE 2 TABLETS AT 8 AM AND TAKE 1 TABLET 6PM 02/27/2024 Active hydrOXYzine pamoate (VISTARIL) 25 mg capsule Take 1 capsule (25 mg total) by mouth at bedtime. Active nortriptyline (PAMELOR) 25 mg capsule Take 2 capsules (50 mg total) by mouth 1 (one) time each day. 02/28/2024 Active oxyCODONE (ROXICODONE) 15 mg immediate release tablet Take 1 tablet (15 mg total) by mouth every 8 (eight) hours if needed. Max Daily Amount: 45 mg 03/15/2024 Active Xtampza ER 18 mg capsule,sprinkle,ER 12hr tmprr Take 54 mg by mouth 2 (two) times a day. Max Daily Amount: 108 mg 03/15/2024 Active QUEtiapine (SEROquel) 100 mg tablet Take 1 tablet (100 mg total) by mouth at bedtime. Active scopolamine (TRANSDERM-SCOP) 1 mg over 3 days patch 3 day Apply 1 patch topically every 3rd (third) day. 02/16/2022 Active spironolactone (ALDACTONE) 25 mg tablet Take 0.5 tablets (12.5 mg total) by mouth 1 (one) time each day. 03/06/2024 Active tamsulosin (FLOMAX) 0.4 mg 24 hr capsule Take 1 capsule (0.4 mg total) by mouth at bedtime. Active zolpidem (AMBIEN) 5 mg tablet Take 1 tablet (5 mg total) by mouth at bedtime as needed for sleep. Max Daily Amount: 5 mg 07/10/2021 Active pantoprazole (PROTONIX) 40 mg EC tablet Take 1 tablet (40 mg total) by mouth 2 (two) times a day. Do not crush, chew, or split. 60 each 03/19/2024 04/18/2024 Active Active Problems Problem Noted Date Diagnosed Date Acute renal failure 03/17/2024 Acute kidney injury 03/17/2024 Encounters Date Type Department Care Team Description 03/19/2024 12:06 PM EST Anesthesia Event [facility] [address] [place] [id number] Benigno Knight DO 03/16/2024 6:41 PM EST - 03/19/2024 3:40 PM EST Hospital Encounter [facility] [address] [place] [id number] Sade Lutz MD Jones, Christopher, MD Nasser, Nada S, MD Surendran, Anupama, MD Acute kidney injury (CMS/HCC) (Primary Dx); Cyclic vomiting syndrome; History of gastric bypass; Cardiac enzymes elevated Discharge Disposition: Home or Self Care from Last 3 Months Surgical History Surgery Date Site/Laterality Comments BREAST REDUCTION PROCEDURE: AK BREAST REDUCTION LAPAROSCOPIC GASTRIC BANDING PROCEDURE: LAP ADJUSTABLE GASTRIC BAND SLEEVE GASTROPLASTY 03/14/2015 - 03/13/2016 Converted from lap band GASTRIC BYPASS 01/29/2022 Conversion of sleeve gastrectomy to vazquez-en-Y gastric bypass HIATAL HERNIA REPAIR 06/05/2021 SECTION, LOW TRANSVERSE TOTAL KNEE ARTHROPLASTY Left Medical History Medical History Date Comments HTN (hypertension) DX:HTN (hyper tension) Anxiety DX:Anxiety Depression DX:Depression Opioid type dependence, continuous (CMS/HCC) Chronic abdominal pain Non-ischemic cardiomyopathy (CMS/HCC) Irritable bowel syndrome GERD (gastroesophageal reflux disease) Family History Medical History Relation Name Comments Lung cancer Father Diabetes Mother Heart disease Mother Relation Name Status Comments Father Mother Social History Tobacco Use Types Packs/Day Years Used Date Smoking Tobacco: Never Smokeless Tobacco: Never Alcohol Use Standard Drinks/Week Comments Yes 0.8 (1 standard drink = 0.6 oz p ure alcohol) Interpersonal Safety Answer Date Record ed Physical Abuse 03/19/2024 Verbal Abuse 03/19/2024 Sex and Gender Information Value Date Recorded Sex Assigned at Female 03/16/2024 7:40 PM EST Gender Identity Female 03/16/2024 7:40 PM EST Sexual Orientation Straight 03/16/2024 7: 40 PM EST Job Start Date Occupation Industry Not on file Not on file Not on file Obstetrics History Last Filed Vital Signs Vital Sign Reading Time Taken Comments Blood Pressure 136/85 03/19/2024 1:00 PM EST Pulse 73 03/19/2024 1:00 PM EST Temperature 36.7 ??C (98.1 ??F) 03/19/2024 1:00 PM ES T Respiratory Rate 16 03/19/2024 1:00 PM EST Oxygen Saturation 98% 03/19/2024 1:00 PM EST Inhaled Oxygen Concentration - - Weight 62.6 kg (138 lb) 03/19/2024 11:53 AM EST Height 165.1 cm (5' 5 ) 03/19/2024 11:53 AM EST Body Mass Index 22.96 03/19/2024 11:53 AM EST Plan of Treatment Health Maintenance Due Date Last Done Comments Breast Cancer Screening 1975 Pneumococcal Vaccine: Pediatrics (0 to 5 Years) and At-Risk Patients (6 to 64 Years) (1 of 2 - PCV) 1982 Cervical Cancer Screening: Pap Smear 1997 Hepatitis B Vaccines (3 of 3 - 19+ 3-dose series) 02/18/2010 12/24/2009, 10/19/2004 Cholesterol Screening (Lipid Panel) 02/20/2022 Colorectal Cancer Screening: Colonoscopy 02/20/2022 Depression Screening 02/20/2022 HIV Screening 02/20/2022 Hepatitis C Screening 02/20/2022 Medicare Annual Wellness Visit 02/20/2022 Social Influencers of Health Screening 02/20/2022 COVID-19 Vaccine ( season) 2023 02/26/2022, 04/09/2021, 07/13/2020, Additional history exists Hypertension/CHF/CAD Annual BMP Blood Test 03/18/2025 03/18/2024, 03/17/2024, 03/16/2024, Additional history exists DTaP,Tdap,and Td Vaccines (3 - Td or Tdap) 09/03/2030 09/03/2020, 05/29/2013 Influenza Vaccine Completed 12/30/2023, , 04/14/2022, Additional history exists HIB Vaccines Aged Out No longer eligi ble based on patient's age to complete this topic HPV Vaccines Aged Out No longer eligi ble based on patient's age to complete this topic Hepatitis A Vaccines Aged Out No long er eligible based on patient's age to complete this topic IPV Vaccines Aged Out No longer eligi ble based on patient's age to complete this topic MMR Vaccines Aged Out No longer eligi ble based on patient's age to complete this topic Meningococcal ACWY Vaccine Aged Out N o longer eligible based on patient's age to complete this topic RSV Immunization Patients Under 20 months Aged Out No longer eligible based on patient's age to complete this topic Varicella Vaccines Aged Out No longer eligible based on patient's age to complete this topic Medical Devices Implanted Type Area Cigarette Making Machine Operator Device Identifier Shelf Expiration Date Model / Serial / Lot Arthroscopy Implants Sports Med Arthroscopy Implants Sports Med Left: Knee Description:LEFT KNEE REPLAC EMENT Procedures Procedure Name Priority Date/Time Associated Diagnosis Comments EGD Routine 03/19/2024 12:19 PM EST TISSUE EXAM Routine 03/19/2024 12:13 PM EST Acute kidney injury (CMS/HCC) Cyclic vomiting syndrome History of gastric bypass Cardiac enzymes elevated ECG ANNOTATED 03/19/2024 TROPONIN I HIGH SENSITIVITY Routine 03/18/2024 6:25 AM EST PROTHROMBIN TIME WITH INR Routine 03/18/2024 6:25 AM EST CBC WITH AUTO DIFFERENTIAL Routine 03/18/2024 6:24 AM EST C-REACTIVE PROTEIN Routine 03/18/2024 6: 24 AM EST LIPASE Routine 03/18/2024 6:24 AM EST COMPREHENSIVE METABOLIC PANEL Routine 03/18/2024 6:24 AM EST CBC AND DIFFERENTIAL Routine 03/18/2024 6:24 AM EST PHOSPHORUS Routine 03/18/2024 6:24 AM EST MAGNESIUM Routine 03/18/2024 6:24 AM EST ECG 12-LEAD Routine 03/18/2024 6:00 AM EST ECG 12-LEAD Routine 03/17/2024 5:12 PM EST XR ABDOMEN 1 VIEW STAT 03/17/2024 11: 44 AM EST LIPASE Add-On 03/17/2024 5:34 AM EST CBC WITH AUTO DIFFERENTIAL Routine 03/17/2024 5:34 AM EST CBC AND DIFFERENTIAL Routine 03/17/2024 5:34 AM EST BASIC METABOLIC PANEL Routine 03/17/2024 5:34 AM EST SODIUM, URINE, RANDOM STAT 03/17/2024 4:06 AM EST PROTEIN, URINE, RANDOM STAT 4:06 AM EST CREATININE, URINE, RANDOM STAT 03/17/2024 4:06 AM EST URINALYSIS WITH REFLEX MICROSCOPIC STAT 03/17/2024 4:06 AM EST HCG QUALITATIVE, URINE STAT 4:06 AM EST URINALYSIS WITH REFLEX MICROSCOPIC STAT 03/17/2024 4:06 AM EST US RETROPERITONEAL COMPLETE Routine 03/17/2024 2:05 AM EST ECG 12-LEAD STAT 03/17/2024 12:59 AM EST ECG OUTSIDE 03/17/2024 TROPONIN I HIGH SENSITIVITY STAT 03/16/2024 10:55 PM EST BASIC METABOLIC PANEL STAT 03/16/2024 10:55 PM EST XR KNEE 4+ VIEWS RIGHT STAT 6:33 PM EST XR CHEST 2 VIEWS STAT 03/16/2024 6:33 PM EST TROPONIN I HIGH SENSITIVITY STAT 03/16/2024 6:22 PM EST CBC WITH AUTO DIFFERENTIAL STAT 03/16/2024 2:59 PM EST B-TYPE NATRIURETIC PEPTIDE STAT 03/16/2024 2:59 PM EST MAGNESIUM STAT 03/16/2024 2:59 PM EST LIPASE STAT 03/16/2024 2:59 PM EST COMPREHENSIVE METABOLIC PANEL STAT 03/16/2024 2:59 PM EST CBC AND DIFFERENTIAL STAT 03/16/2024 2:59 PM EST TROPONIN I HIGH SENSITIVITY STAT 03/16/2024 2:59 PM EST ECG 12-LEAD STAT 03/16/2024 1:37 PM EST from Last 3 Months Results * EGD Anesthesia - MAC; [facility] ENDOSCOPY (03/19/2024 12:19 PM EST) Anatomical Region Laterality Modality Endoscopy 03/19/2024 12:0 4 PM EST Impressions 03/19/2024 12:21 PM EST - Normal esophagus. ? - Normal examined jejunum. ? - Gastric bypass. ? - Erythematous mucosa in the stomach. Biopsied. Clip ? was placed. 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 Recommendation: ?- Discharge patient to home. ? - Resume previous diet. ? - Continue present medications. ? - Await pathology results. ? - Bleeding from gastric biopsy site treated with an ? endoclip as the bleeding would not stop spontaneously. ? - Coagulation profile ? - Marijuana cessation recommended. ? - [place] [facility] [place] Narrative 03/19/2024 12:21 PM EST [facility] Patient Name: Eboni Tatum Procedure Date: 03/19/2024 12:04 PM Date of : 1975 Age: 48 Gender: Female Note Status: Finalized Attending MD: Jesse Saenz DO, [id number] Procedure Date No Time: 03/19/2024 Procedure: ? Upper GI endoscopy Indications: ? Epigastric abdominal pain, Nausea with vomiting Providers: ? Jesse Saenz DO Referring MD: ?Gm Ahuja MD Medicines: ? Monitored Anesthesia Care Complications: ? No immediate complications. Estimated blood loss: ? Minimal. Estimated Blood Loss: ? Estimated blood loss was minimal. Procedure: ? Pre-Anesthesia Assessment: ? - - Prior to the procedure, a History and Physical was ? performed, and patient medications and allergies were ? reviewed. The patient is competent. The risks and ? benefits of the procedure and the sedation options and ? risks were discussed with the patient. All questions ? were answered and informed consent was obtained. ? Patient identification and proposed procedure were ? verified by the physician, the nurse, the ? anesthesiologist, the geodesist and the aircraft systems technician ? in the pre-procedure area in the endoscopy suite. ? Mental Status Examination: alert and oriented. Airway ? Examination: normal oropharyngeal airway and neck ? mobility. Respiratory Examination: clear to ? auscultation. CV Examination: normal. Prophylactic ? Antibiotics: The patient does not require prophylactic ? antibiotics. Prior Anticoagulants: The patient has ? taken no anticoagulant or antiplatelet agents. ASA ? Grade Assessment: II - A patient with severe systemic ? disease. After reviewing the risks and benefits, the ? patient was deemed in satisfactory condition to ? undergo the procedure. The anesthesia plan was to use ? monitored anesthesia care (MAC). Immediately prior to ? administration of medications, the patient was ? re-assessed for adequacy to receive sedatives. The ? heart rate, respiratory rate, oxygen saturations, ? blood pressure, adequacy of pulmonary ventilation, and ? response to care were monitored throughout the ? procedure. The physical status of the patient was ? re-assessed after the procedure. ? After obtaining informed consent, the endoscope was ? passed under direct vision. Throughout the procedure, ? the patient's blood pressure, pulse, and oxygen ? saturations were monitored continuously. The Olympus ? Gastroscope was introduced through the mouth, and ? advanced to the jejunum. The upper GI endoscopy was ? accomplished without difficulty. The patient tolerated ? the procedure well. Findings: ?The esophagus was normal. ? The examined jejunum was normal. ? Evidence of a gastric bypass was found. A gastric ? pouch was found. ? Diffuse moderately erythematous mucosa without ? bleeding was found in the stomach. Biopsies were taken ? with a cold forceps for histology. For hemostasis, one ? hemostatic clip was successfully placed. Clip ? master naval parachutist: [employer]. There was no bleeding ? at the end of the procedure. Estimated blood loss was ? minimal. Procedure Code(s): ? --- Professional --- ? 28227, 59, Esophagogastroduodenoscopy, flexible, ? transoral; with control of bleeding, any method ? 67021, Esophagogastroduodenoscopy, flexible, ? transoral; with biopsy, single or multiple Diagnosis Code(s): ? --- Professional --- ? Z98.84, Bariatric surgery status ? K31.89, Other diseases of stomach and duodenum ? R10.13, Epigastric pain ? R11.2, Nausea with vomiting, unspecified CPT copyright 2020 [employer]. All rights reserved. The codes documented in this report are preliminary and upon controls designer review may be revised to meet current compliance requirements. JESSE Saenz DO 03/19/2024 12:21:51 PM This report has been signed electronically.Jesse Saenz DO Number of Addenda: 0 Note Initiated On: 03/19/2024 12:04 PM Scope In: Scope Out: ? Endoscopy Department at [facility] - [address] [place] [address], ? [place] [address] Procedure Note Jesse Saenz DO - 03/19/2024 [facility] Patient Name: Eboni Tatum Procedure Date: 03/19/2024 12:04 PM Date of : 1975 Age: 48 Gender: Female Note Status: Finalized Attending MD: Jesse Saenz DO, [id number] Procedure Date No Time: 03/19/2024 Procedure: Upper GI endoscopy Indications: Epigastric abdominal pain, Nausea with vomiting Providers: Jesse Saenz DO Referring MD: Gm Ahuja MD Medicines: Monitored Anesthesia Care Complications: No immediate complications. Estimated blood loss: Minimal. Estimated Blood Loss: Estimated blood loss was minimal. Procedure: Pre-Anesthesia Assessment: - - Prior to the procedure, a History and Physicalwas performed, and patient medications and allergieswere reviewed. The patient is competent. The risks and benefits of the procedure and the sedation optionsand risks were discussed with the patient. Allquestions were answered and informed consent was obtained. Patient identification and proposed procedure were verified by the physician, the nurse, the anesthesiologist, the geodesist and thetechnician in the pre-procedure area in the endoscopy suite. Mental Status Examination: alert and oriented.Airway Examination: normal oropharyngeal airway and neck mobility. Respiratory Examination: clear to auscultation. CV Examination: normal. Prophylactic Antibiotics: The patient does not requireprophylactic antibiotics. Prior Anticoagulants: The patient has taken no anticoagulant or antiplatelet agents. ASA Grade Assessment: II - A patient with severesystemic disease. After reviewing the risks and benefits,the patient was deemed in satisfactory condition to undergo the procedure. The anesthesia plan was touse monitored anesthesia care (MAC). Immediately priorto administration of medications, the patient was re-assessed for adequacy to receive sedatives. The heart rate, respiratory rate, oxygen saturations, blood pressure, adequacy of pulmonary ventilation,and response to care were monitored throughout the procedure. The physical status of the patient was re-assessed after the procedure. After obtaining informed consent, the endoscope was passed under direct vision. Throughout theprocedure, the patient's blood pressure, pulse, and oxygen saturations were monitored continuously. TheOlympus Gastroscope was introduced through the mouth, and advanced to the jejunum. The upper GI endoscopy was accomplished without difficulty. The patienttolerated the procedure well. Findings: The esophagus was normal. The examined jejunum was normal. Evidence of a gastric bypass was found. A gastric pouch was found. Diffuse moderately erythematous mucosa without bleeding was found in the stomach. Biopsies weretaken with a cold forceps for histology. For hemostasis,one hemostatic clip was successfully placed. 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 There was nobleeding at the end of the procedure. Estimated blood losswas minimal. Procedure Code(s): --- Professional --- 30749, 59, Esophagogastroduodenoscopy, flexible, transoral; with control of bleeding, any method 85849, Esophagogastroduodenoscopy, flexible, transoral; with biopsy, single or multiple Diagnosis Code(s): --- Professional --- Z98.84, Bariatric surgery status K31.89, Other diseases of stomach and duodenum R10.13, Epigastric pain R11.2, Nausea with vomiting, unspecified CPT copyright 2020 [employer]. All rights reserved. The codes documented in this report are preliminary and upon controls designer reviewmay be revised to meet current compliance requirements. JESSE Saenz DO 03/19/2024 12:21:51 PM This report has been signed electronically.Jesse Saenz DO Number of Addenda: 0 Note Initiated On: 03/19/2024 12:04 PM Scope In: Scope Out: Endoscopy Department at [facility] - [address] [place] [phone] IMPRESSION: - Normal esophagus. - Normal examined jejunum. - Gastric bypass. - Erythematous mucosa in the stomach. Biopsied.Clip was placed. 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 Recommendation: - Discharge patient to home. - Resume previous diet. - Continue present medications. - Await pathology results. - Bleeding from gastric biopsy site treated with an endoclip as the bleeding would not stopspontaneously. - Coagulation profile - Marijuana cessation recommended. - [place] with [place] [facility] [place] Jesse Saenz DO GI~PROCEDURE ORDERAB LES * Tissue exam (03/19/2024 12:13 PM EST) Final Diagnosis Stomach, biopsy: Gastric antral and oxyntic-type mucosa with minimal chronic inflammation. No active gastritis and no intestinal metaplasia identified. No Helicobacter pylori identified on hematoxylin and eosin stained sections. 03/20/2024 11:19 AM EST [facility] Gross Description A. Stomach, biopsies, gastric: Labeled stomach biopsies . Received in formalin are three irregular morley mucosal tissue fragments, ranging from 0.3 cm to 0.6 cm in greatest dimension, which are wrapped in paper and submitted in toto in one cassette, three pieces, multiple levels on one slide. ABDOUL 03/20/2024 11:19 AM EST [facility] Disclaimer Unless otherwise specified, all tissue is 10% NB formalin fixed and paraffin embedded. 03/20/2024 11:19 AM EST [facility] Tissue Stomach structure / Unknown 03/19/2024 12:13 PM EST 03/19/2024 12:58 PM EST Jesse Saenz DO LAB PATHOLOGY ORDERA BLES Performing Organization Address [facility]/ZIP Co de Phone Number [facility] [address] [place] [address], * ECG-Annotated (03/19/2024) Provider Onbase MD ECG ORDERABLES * Troponin I high sensitivity (03/18/2024 6:25 AM EST) Only the most recent of4 resultswithin the time period is included. Pathologist [facility] High Sensitivity Troponin I 15 <=54 ng/L LAB CHEMISTRY METHOD 03/18/2024 8:06 AM EST [facility] Blood Venous blood specimen / Unknown Venipuncture / Unknown 03/18/2024 6:25 AM EST 03/18/2024 7:16 AM EST Narrative [facility] - 03/18/2024 8:06 AM EST High levels of biotin in samples may falsely decrease hsTroponin values. ??Use caution when interpreting hsTroponin results in patients taking biotin who exhibit renal impairment (eGFR <60) or in patients taking more than 20 mg/day of biotin. Derrick Severino MD LAB BLOOD ORDERABLES Performing Organization Address City/[facility]/ZIP Co de Phone Number [facility] [address] [place] [address], [place] [phone] * Prothrombin time with INR (03/18/2024 6:25 AM EST) Protime 10.6 10.6 - 13.9 sec LAB COAGULATION METHOD 03/18/2024 8:03 AM EST [facility] INR 0.9 LAB COAGULATION METHOD 03/18/2024 8:03 AM [facility] Blood Venous blood specimen / Unknown Venipuncture / Unknown 03/18/2024 6:25 AM EST 03/18/2024 7:16 AM EST Derrick Severino MD LAB BLOOD ORDERABLES [facility] [address] [place] [address], * (ABNORMAL) CBC auto differential (03/18/2024 6:24 AM EST) Only the most recent of3 resultswithin the time period is included. WBC 9.2 4.8 - 10.8 K/mcL LAB HEMETOLOGY METHOD 03/18/2024 8:03 AM [facility] RBC 3.60(L) 3.80 - 4.80 M/mcL LAB HEMETOLOGY METHOD 03/18/2024 8:03 AM [facility] Hemoglobin 10.1(L) 11.5 - 16.0 g/dL LAB HEMETOLOGY METHOD 03/18/2024 8:03 AM [facility] Hematocrit 31.2(L) 35.0 - 47.0 % LAB HEMETOLOGY METHOD 03/18/2024 8:03 AM [facility] MCV 86.0 79.0 - 98.0 FL LAB HEMETOLOGY METHOD 03/18/2024 8:03 AM [facility] MCH 27.8 27.0 - 32.0 pcg LAB HEMETOLOGY METHOD 03/18/2024 8:03 AM [facility] MCHC 32.4 32.0 - 37.0 g/dL LAB HEMETOLOGY METHOD 03/18/2024 8:03 AM [facility] RDW 17.2(H) 11.0 - 15.0 % LAB HEMETOLOGY METHOD 03/18/2024 8:03 AM [facility] Platelets 187 130 - 400 K/mcL LAB HEMETOLOGY METHOD 03/18/2024 8:03 AM [facility] MPV 9.7 7.0 - 11.0 FL LAB HEMETOLOGY METHOD 03/18/2024 8:03 AM [facility] NRBC 0.0 <1.0 % LAB HEMETOLOGY METHOD 03/18/2024 8:03 AM [facility] NRBC Absolute 0.00 <0.10 K/mcL LAB HEMETOLOGY METHOD 03/18/2024 8:03 AM [facility] Neutrophils Relative 66.8 % LAB HEMETOLOGY METHOD 03/18/2024 8:03 AM [facility] Lymphocytes Relative 24.1 % LAB HEMETOLOGY METHOD 03/18/2024 8:03 AM [facility] Monocytes Relative 8.4 % LAB HEMETOLOGY METHOD 03/18/2024 8:03 AM [facility] Eosinophils Relative 0.2 % LAB HEMETOLOGY METHOD 03/18/2024 8:03 AM [facility] Basophils Relative 0.2 % LAB HEMETOLOGY METHOD 03/18/2024 8:03 AM [facility] Immature Granulocytes Relative 0.3 % LAB HEMETOLOGY METHOD 03/18/2024 8:03 AM [facility] Neutrophils Absolute 6.16 1.50 - 7.00 K/mcL LAB HEMETOLOGY METHOD 03/18/2024 8:03 AM [facility] Lymphocytes Absolute 2.23 1.00 - 5.00 K/mcL LAB HEMETOLOGY METHOD 03/18/2024 8:03 AM [facility] Monocytes Absolute 0.78 0.20 - 1.00 K/mcL LAB HEMETOLOGY METHOD 03/18/2024 8:03 AM EST [facility] Eosinophils Absolute 0.02 0.00 - 0.50 K/[facility] LAB HEMETOLOGY METHOD 03/18/2024 8:03 AM EST [facility] Basophils Absolute 0.02 0.00 - 0.20 K/[facility] LAB HEMETOLOGY METHOD 03/18/2024 8:03 AM [facility] Immature Granulocytes Absolute 0.03 0.00 - 0.03 K/[facility] LAB HEMETOLOGY METHOD 03/18/2024 8:03 AM [facility] Blood Venous blood specimen / Unknown Venipuncture / Unknown 03/18/2024 6:24 AM EST 03/18/2024 7:16 AM EST Derrick Severino MD LAB BLOOD ORDERABLES Performing Organization Address City/[facility]/ZIP Co de Phone Number [facility] [address] [place] [address], * C-reactive protein (03/18/2024 6:24 AM EST) C-Reactive Protein <0.29 <=0.50 mg/dL LAB CHEMISTRY METHOD 03/18/2024 8:14 AM [facility] Blood Venous blood specimen / Unknown Venipuncture / Unknown 03/18/2024 6:24 AM EST 03/18/2024 7:15 AM EST Derrick Severino MD LAB BLOOD ORDERABLES [facility] [address] [place] [address], * (ABNORMAL) Phosphorus (03/18/2024 6:24 AM EST) Phosphorus 2.3(L) 2.5 - 4.5 mg/dL LAB CHEMISTRY METHOD 03/18/2024 8:14 AM EST [facility] Blood Venous blood specimen / Unknown Venipuncture / Unknown 03/18/2024 6:24 AM EST 03/18/2024 7:15 AM EST Derrick Severino MD LAB BLOOD ORDERABLES Performing Organization Address [facility]/ZIP Co de Phone Number [facility] [address] [place] [address], * Magnesium (03/18/2024 6:24 AM EST) Only the most recent of2 resultswithin the time period is included. Magnesium 1.9 1.9 - 2.6 mg/dL LAB CHEMISTRY METHOD 03/18/2024 8:14 AM EST [facility] Blood Venous blood specimen / Unknown Venipuncture / Unknown 03/18/2024 6:24 AM EST 03/18/2024 7:15 AM EST Derrick Severino MD LAB BLOOD ORDERABLES Performing Organization Address [facility] Co de Phone Number [facility] [address] [place] [address], [place] [phone] * Lipase (03/18/2024 6:24 AM EST) Only the most recent of3 resultswithin the time period is included. Lipase 27 13 - 75 unit/L LAB CHEMISTRY METHOD 03/18/2024 8:14 AM EST [facility] Blood Venous blood specimen / Unknown Venipuncture / Unknown 03/18/2024 6:24 AM EST 03/18/2024 7:15 AM EST Derrick Severino MD LAB BLOOD ORDERABLES Performing Organization Address City/[facility]/ZIP Co de Phone Number [facility] [address] [place] [address], [place] [phone] * (ABNORMAL) Comprehensive metabolic panel (03/18/2024 6:24 AM EST) Only the most recent of2 resultswithin the time period is included. Sodium 136 133 - 145 mmol/L LAB CHEMISTRY METHOD 03/18/2024 8:14 AM [facility] Potassium 4.3 3.5 - 5.5 mmol/L LAB CHEMISTRY METHOD 03/18/2024 8:14 AM [facility] Chloride 103 96 - 110 mmol/L LAB CHEMISTRY METHOD 03/18/2024 8:14 AM [facility] CO2 29 21 - 32 mmol/L LAB CHEMISTRY METHOD 03/18/2024 8:14 AM [facility] Anion Gap 4 3 - 11 LAB CHEMISTRY METHOD 03/18/2024 8:14 AM [facility] Glucose 106(H) 70 - 100 mg/dL LAB CHEMISTRY METHOD 03/18/2024 8:14 AM [facility] BUN 15 5 - 25 mg/dL LAB CHEMISTRY METHOD 03/18/2024 8:14 AM [facility] Creatinine 1.00 0.50 - 1.10 mg/dL LAB CHEMISTRY METHOD 03/18/2024 8:14 AM [facility] eGFR 70 >=60 mL/min/1. 73m2 LAB CHEMISTRY METHOD 03/18/2024 8:14 AM [facility] Comment:Calculation based on the??Chronic Kidney Disease Epidemiology Collaboration (CKD-EPI) equation refit??without adjustment for race. BUN/Creatinine Ratio 15.0 LAB CHEMISTRY METHOD 03/18/2024 8:14 AM [facility] Calcium 9.0 8.5 - 10.5 mg/dL LAB CHEMISTRY METHOD 03/18/2024 8:14 AM [facility] AST (SGOT) 12 10 - 42 unit/L LAB CHEMISTRY METHOD 03/18/2024 8:14 AM [facility] ALT (SGPT) 20 10 - 60 unit/L LAB CHEMISTRY METHOD 03/18/2024 8:14 AM EST [facility] Alkaline Phosphatase 75 42 - 121 unit/L LAB CHEMISTRY METHOD 03/18/2024 8:14 AM EST [facility] Total Protein 7.2 6.0 - 8.0 g/dL LAB CHEMISTRY METHOD 03/18/2024 8:14 AM EST [facility] Albumin 3.8 3.2 - 5.0 g/dL LAB CHEMISTRY METHOD 03/18/2024 8:14 AM EST [facility] Total Bilirubin 0.5 0.0 - 1.4 mg/dL LAB CHEMISTRY METHOD 03/18/2024 8:14 AM EST [facility] Blood Venous blood specimen / Unknown Venipuncture / Unknown 03/18/2024 6:24 AM EST 03/18/2024 7:15 AM EST Derrick Severino MD LAB BLOOD ORDERABLES [facility] [address] [place] [address], * ECG 12 lead (03/18/2024 6:00 AM EST) Only the most recent of4 resultswithin the time period is included. Ventricular Rate ECG 68 BPM GEMUSE Atrial Rate 68 BPM GEMUSE P-R Interval 182 ms GEMUSE QRS Duration 84 ms GEMUSE Q-T Interval 444 ms GEMUSE QTc 472 ms GEMUSE P Wave [place] 68 degrees GEMUSE R [place] 35 degrees GEMUSE T [place] 61 degrees GEMUSE ECG Interpretation Normal sinus rhythm Normal ECG When compared with ECG of 17-MAR-2024 17:12, (unconfirmed) No significant change was found Confirmed by MAGALYS GOODEN ([id number]) on 03/19/2024 3:55:16 PM GEMUSE 03/18/2024 6:00 AM EST 03/19/2024 3:55 PM EST Derrcik Severino MD ECG ORDERABLES GEMUSE * XR Abdomen 1 View (03/17/2024 11:44 AM EST) Anatomical Region Laterality Modality Body Radiographic Vicenta ging 03/17/2024 11:5 5 AM EST Impressions 03/17/2024 11:56 AM EST FINDINGS/IMPRESSION: Postsurgical changes in the left upper quadrant. ??Nonobstructive bowel gas pattern. ??Lung bases are clear. ??Mild lower lumbar facet arthritis. -------- FINAL REPORT -------- Dictated By: URBANO MATTHEWS Dictated Date: 03/17/2024 11:55 ET Assigned Physician: URBANO MATTHEWS Reviewed and Electronically Signed By: URBANO MATTHEWS Signed Date: 03/17/2024 11:56 ET Workstation ID: [id number] Transcribed By: Self Edit Transcribed Date: 03/17/2024 11:55 ET Narrative 03/17/2024 11:56 AM EST XR ABDOMEN 1 VIEW INDICATION: ??Nausea and vomiting TECHNIQUE: XR ABDOMEN 1 VIEW COMPARISON: No priors available. Procedure Note Urbano Matthews MD - 03/17/2024 XR ABDOMEN 1 VIEW INDICATION: Nausea and vomiting TECHNIQUE: XR ABDOMEN 1 VIEW COMPARISON: No priors available. IMPRESSION: FINDINGS/IMPRESSION: Postsurgical changes in the left upper quadrant.Nonobstructive bowel gas pattern. Lung bases are clear. Mild lowerlumbar facet arthritis. -------- FINAL REPORT -------- Dictated By: URBANO MATTHEWS Dictated Date: 03/17/2024 11:55 ET Assigned Physician: URBANO MATTHEWS Reviewed and Electronically Signed By: URBANO MATTHEWS Signed Date: 03/17/2024 11:56 ET Workstation ID: [id number] Transcribed By: Self Edit Transcribed Date: 03/17/2024 11:55 ET Derrick Severino MD IMG XR PROCEDURES * (ABNORMAL) Basic metabolic panel (03/17/2024 5:34 AM EST) Only the most recent of2 resultswithin the time period is included. Sodium 133 133 - 145 mmol/L LAB CHEMISTRY METHOD 03/17/2024 6:27 AM [facility] Potassium 4.2 3.5 - 5.5 mmol/L LAB CHEMISTRY METHOD 03/17/2024 6:27 AM [facility] Comment:Hemolysis present Chloride 101 96 - 110 mmol/L LAB CHEMISTRY METHOD 03/17/2024 6:27 AM [facility] CO2 28 21 - 32 mmol/L LAB CHEMISTRY METHOD 03/17/2024 6:27 AM [facility] Anion Gap 4 3 - 11 LAB CHEMISTRY METHOD 03/17/2024 6:27 AM [facility] Glucose 129(H) 70 - 100 mg/dL LAB CHEMISTRY METHOD 03/17/2024 6:27 AM [facility] BUN 29(H) 5 - 25 mg/dL LAB CHEMISTRY METHOD 03/17/2024 6:27 AM [facility] Creatinine 1.80(H) 0.50 - 1.10 mg/dL LAB CHEMISTRY METHOD 03/17/2024 6:27 AM [facility] eGFR 35(L) >=60 mL/min/1. 73m2 LAB CHEMISTRY METHOD 03/17/2024 6:27 AM [facility] Comment:Calculation based on the??Chronic Kidney Disease Epidemiology Collaboration (CKD-EPI) equation refit??without adjustment for race. BUN/Creatinine Ratio 16.1 LAB CHEMISTRY METHOD 03/17/2024 6:27 AM [facility] Calcium 8.7 8.5 - 10.5 mg/dL LAB CHEMISTRY METHOD 03/17/2024 6:27 AM [facility] Blood Venous blood specimen / Unknown Venipuncture / Unknown 03/17/2024 5:34 AM EST 03/17/2024 5:46 AM EST Gabe Coronado MD LAB BLOOD ORDERABLE S [facility] [address] [place] [address], * Urinalysis with reflex microscopic (03/17/2024 4:06 AM EST) Specific [place] Urine 1.009 1.003 - 1.030 LAB URINALYSIS - AUTOMATED METHOD 03/17/2024 4:36 AM [facility] pH, Urine 5.5 5.0 - 8.0 pH LAB URINALYSIS - AUTOMATED METHOD 03/17/2024 4:36 AM [facility] Leukocytes, Urine Negative Negative LAB URINALYSIS - AUTOMATED METHOD 03/17/2024 4:36 AM [facility] Nitrite, Urine Negative Negative LAB URINALYSIS - AUTOMATED METHOD 03/17/2024 4:36 AM [facility] Protein, Urine Trace <=Trace mg/dL LAB URINALYSIS - AUTOMATED METHOD 03/17/2024 4:36 AM [facility] Glucose, Urine Negative Negative mg/dL LAB URINALYSIS - AUTOMATED METHOD 03/17/2024 4:36 AM [facility] Ketones, Urine Negative Negative mg/dL LAB URINALYSIS - AUTOMATED METHOD 03/17/2024 4:36 AM [facility] Urobilinogen, Urine 0.2 0.2 - 1.0 mg/dL LAB URINALYSIS - AUTOMATED METHOD 03/17/2024 4:36 AM [facility] Bilirubin, Urine Negative Negative LAB URINALYSIS - AUTOMATED METHOD 03/17/2024 4:36 AM [facility] Blood, Urine Negative Negative LAB URINALYSIS - AUTOMATED METHOD 03/17/2024 4:36 AM [facility] Urine Urine specimen obtained by clean catch procedure / Unknown Non-blood Collection / Unknown 03/17/2024 4:06 AM EST 03/17/2024 4:25 AM EST Gabe Coronado MD LAB URINE ORDERABLE S Performing Organization Address [facility] Co de Phone Number [facility] [address] [place] [address], * Sodium, urine, random (03/17/2024 4:06 AM EST) Sodium, Ur 19 mmol/L LAB CHEMISTRY METHOD 03/17/2024 4:54 AM EST [facility] Urine Urine specimen obtained by clean catch procedure / Unknown Non-blood Collection / Unknown 03/17/2024 4:06 AM EST 03/17/2024 4:25 AM EST Gabe Coronado MD LAB URINE ORDERABLE S Performing Organization Address [facility] de Phone Number [facility] [address] [place] [address], * Protein, urine, random (03/17/2024 4:06 AM EST) Protein, Urine 20 mg/dL LAB CHEMISTRY METHOD 03/17/2024 4:54 AM EST [facility] Urine Urine specimen obtained by clean catch procedure / Unknown Non-blood Collection / Unknown 03/17/2024 4:06 AM EST 03/17/2024 4:25 AM EST Gabe Coronado MD LAB URINE ORDERABLE S Performing Organization Address [facility] Co de Phone Number [facility] [address] [place] [address], [place] [phone] * HCG qualitative, urine (03/17/2024 4:06 AM EST) Preg Test, Ur Negative Negative 03/17/2024 4:56 AM EST [facility] Urine Urine specimen obtained by clean catch procedure / Unknown Non-blood Collection / Unknown 03/17/2024 4:06 AM EST 03/17/2024 4:25 AM EST Gabe Coronado MD LAB URINE ORDERABLE S Performing Organization Address [facility]/ZIP Co de Phone Number [facility] [address] [place] [address], [place] [phone] * Creatinine, urine, random (03/17/2024 4:06 AM EST) Creatinine, Urine 77.0 mg/dL LAB CHEMISTRY METHOD 03/17/2024 4:54 AM EST [facility] Urine Urine specimen obtained by clean catch procedure / Unknown Non-blood Collection / Unknown 03/17/2024 4:06 AM EST 03/17/2024 4:25 AM EST Gabe Coronado MD LAB URINE ORDERABLE S Performing Organization Address [facility]/ZIP Co de Phone Number [facility] [address] [place] [address], [place] [phone] * [place] Retroperitoneal Complete (03/17/2024 2:05 AM EST) Anatomical Region Laterality Modality Body Ultrasound 03/17/2024 2:34 AM EST Impressions 03/17/2024 2:34 AM EST Impression: 1. Nonobstructive left nephrolithiasis. This document has been electronically signed by: Tristin Mcmillan MD on 03/17/2024 02:34:03 Narrative 03/17/2024 2:34 AM EST Renal Ultrasound Comparison: None Findings: Right Kidney: length measures 11 cm. No hydronephrosis, masses or calculi. Cortical echogenicity and thickness are normal. Normal color flow. Left Kidney: length measures 11 cm. 3 mm midpole echogenic focus.No hydronephrosis masses. Cortical echogenicity and thickness are normal. Normal color flow. Additional findings: Bilateral ureteral jets visualized. No bladder wall thickening or calculi. Procedure Note Tristin Mcmillan MD - 03/17/2024 Renal Ultrasound Comparison: None Findings: Right Kidney: length measures 11 cm. No hydronephrosis, masses orcalculi. Cortical echogenicity and thickness are normal. Normal color flow. Left Kidney: length measures 11 cm. 3 mm midpole echogenic focus.No hydronephrosis masses. Cortical echogenicity and thickness are normal. Normal color flow. Additional findings: Bilateral ureteral jets visualized. No bladder wall thickening or calculi. IMPRESSION: Impression: 1. Nonobstructive left nephrolithiasis. This document has been electronically signed by: Will Sepulveda 03/17/2024 02:34:03 Gabe Coronado MD IMG US PROCEDURES * ECG-Outside (03/17/2024) Provider Onbase ECG ORDERABLES * XR Knee 4+ Views Right (03/16/2024 6:33 PM EST) Anatomical Region Laterality Modality Lower Extremities, Knee [facility] 03/16/2024 6:46 PM EST Impressions 03/16/2024 6:47 PM EST FINDINGS/IMPRESSION: No acute fracture or dislocation. ??Mild medial compartment predominant degenerative change. ??No joint effusion or focal soft tissue swelling. -------- FINAL REPORT -------- Dictated By: URBANO MATTHEWS Dictated Date: 03/16/2024 18:46 ET Assigned Physician: URBANO MATTHEWS Reviewed and Electronically Signed By: URBANO MATTHEWS Signed Date: 03/16/2024 18:47 ET Workstation ID: [id number] Transcribed By: Self Edit Transcribed Date: 03/16/2024 18:46 ET Narrative 03/16/2024 6:47 PM EST XR KNEE 4+ VIEWS RIGHT INDICATION: ??Pain TECHNIQUE: XR KNEE 4+ VIEWS RIGHT COMPARISON: No priors available. Procedure Note Urbano Matthews MD - 03/16/2024 XR KNEE 4+ VIEWS RIGHT INDICATION: Pain TECHNIQUE: XR KNEE 4+ VIEWS RIGHT COMPARISON: No priors available. IMPRESSION: FINDINGS/IMPRESSION: No acute fracture or dislocation. Mild medialcompartment predominant degenerative change. No joint effusion or focalsoft tissue swelling. -------- FINAL REPORT -------- Dictated By: URBANO MATTHEWS Dictated Date: 03/16/2024 18:46 ET Assigned Physician: URBANO MATTHEWS Reviewed and Electronically Signed By: URBANO MATTHEWS Signed Date: 03/16/2024 18:47 ET Workstation ID: [id number] Transcribed By: Self Edit Transcribed Date: 03/16/2024 18:46 ET Anil Louis MD IMG XR PROCEDURES * XR Chest 2 Views (03/16/2024 6:33 PM EST) Anatomical Region Laterality Modality Body Radiographic Vicenta ging 03/16/2024 6:48 PM EST Impressions 03/16/2024 6:49 PM EST FINDINGS/IMPRESSION: Lungs are clear. ??No pleural effusion or pneumothorax. ??Cardiac silhouette is normal in size. ??Dextroconvex thoracic and levoconvex lumbar curvature. ??No acute displaced fracture. -------- FINAL REPORT -------- Dictated By: URBANO MATTHEWS Dictated Date: 03/16/2024 18:48 ET Assigned Physician: URBANO MATTHEWS Reviewed and Electronically Signed By: URBANO MATTHEWS Signed Date: 03/16/2024 18:49 ET Workstation ID: [id number] Transcribed By: Self Edit Transcribed Date: 03/16/2024 18:48 ET Narrative 03/16/2024 6:49 PM EST XR CHEST 2 VIEWS INDICATION: ??Chest pain TECHNIQUE: XR CHEST 2 VIEWS COMPARISON: 01/08/2024 Procedure Note Urbano Matthews MD - 03/16/2024 XR CHEST 2 VIEWS INDICATION: Chest pain TECHNIQUE: XR CHEST 2 VIEWS COMPARISON: 01/08/2024 IMPRESSION: FINDINGS/IMPRESSION: Lungs are clear. No pleural effusion orpneumothorax. Cardiac silhouette is normal in size. Dextroconvexthoracic and levoconvex lumbar curvature. No acute displaced fracture. -------- FINAL REPORT -------- Dictated By: URBANO MATTHEWS Dictated Date: 03/16/2024 18:48 ET Assigned Physician: URBANO MATTHEWS Reviewed and Electronically Signed By: URBANO MATTHEWS Signed Date: 03/16/2024 18:49 ET Workstation ID: [id number] Transcribed By: Self Edit Transcribed Date: 03/16/2024 18:48 ET Kit Nixon MD IMG XR PROCEDURES * (ABNORMAL) B-type natriuretic peptide (03/16/2024 2:59 PM EST) BNP 134(H) <=100 pcg/mL LAB CHEMISTRY METHOD 03/16/2024 4:37 PM EST [facility] Blood Venous blood specimen / Unknown Venipuncture / Unknown 03/16/2024 2:59 PM EST 03/16/2024 3:37 PM EST Kit Nixon MD LAB BLOOD ORDERABLES [facility] [address] [place] [address], from Last 3 Months Advance Directives * Full Code - Default (Latest Code Status on File) Date Activated Date Inactivated Comments 03/17/2024 1:26 AM 03/19/2024 5:51 PM This is order is used when code status has not been discussed with the patient, or code status is otherwise unknown/unconfirmed To update the patient's code status, place a code status order. Do not modify or discontinue any currently active code status orders. Care Teams Weight Inspector Relationship Specialty Start Date End Date Lisseth Nassar NP [address] [place] [phone] PCP - General 07/07/21
--- OUTSIDE RECORDS SUMMARY | 2024-04-18 11:28 | XMS_ITS | Encounter Summary ---
Author Organization [employer] Address [address] [place] [address] Care Team Providers Care Upholsterer Helper Name Role Phone Lisseth Nassar MECHANICAL SERVICE REPRESENTATIVE Primary Care Provider [phone] Reason for Visit * Reason Comments Chest Pain CP starting this AM. * Auth/Cert (Routine) Specialty Diagnoses / Procedures Referred By Contac t Referred To Contact Diagnoses Acute renal failure (CMS/HCC) Procedures [address]166 Gabe Coronado MD [address] [place] [address] [facility] Emergency [address] [place] [address] Referral ID Status Reason Start Date Expiration Date Visits Re quested Visits Authorized [id number] 1 1 Encounter Details Date Type Department Care Team (Latest Contact Info) Description 03/16/2024 6:41 PM EST - 03/19/2024 3:40 PM EST Hospital Encounter [facility] [address] [place] [id number] Sade Lutz MD [address] [place], [place] [id number] Gabe Coronado MD [address] [place] [address] Derrick Severino MD [address] [place] [address] Yesika Kerns MD [address] [place] [id number] Acute kidney injury (CMS/HCC) (Primary Dx); Cyclic vomiting syndrome; History of gastric bypass; Cardiac enzymes elevated Discharge Disposition: Home or Self Care Social History Tobacco Use Types Packs/Day Years [...] file Not on file Not on file documented as of this encounter Last Filed Vital Signs Vital Sign Reading [...] Mass Index 22.96 03/19/2024 11:53 AM EST documented in this encounter Discharge Summaries * Yesika Kerns MD - 03/19/2024 12:53 PM EST Images from the original note were not included. [place] DISCHARGE SUMMARY Patient Information Eboni Tatum : 1975 [48 y.o.] Admitting Provider Derrick Severino MD Discharge Provider Yesika Kerns MD, Yesika Kerns MD Primary Care Physician Lisseth Nassar NP Admission Date 03/16/2024 Discharge Date 03/19/2024 Summary of Hospital Problems Presenting Chief Complaint: Nausea vomiting Primary Discharge Diagnosis: Acute renal failure (CMS/HCC) improved Nausea, vomiting improved Secondary Discharge Diagnosis: Adrenal insufficiency History of nonischemic cardiomyopathy Chronic pain on opiates Anxiety Discharge Destination: Home Code Status at Discharge: Full Code - Default Hospital Course Summary 48 year-old female with history chronic nausea and abdominal pain, multiple bariatric procedures, hypertension, non-ischemic cardiomyopathy LVEF 50-55%, GERD, irritable bowel syndrome, adrenal insufficiency on oral hydrocortisone, anxiety, and opioid dependence secondary to chronic pain presents with acute renal failure, nausea/vomiting, and elevated troponin. Acute renal failure- resolved Secondary to nausea vomiting, with volume depletion. Spironolactone was held initially on presentation. Creatinine was elevated to 2.8 from baseline. Was placed on IV fluids, creatinine improved and back to normal at this time. Renal ultrasound done does not show any evidence of obstruction at this time. Showed non obstructive left nephrolithiasis. Resume back on spironolactone on DC Nausea and vomiting - improved Patient has history of multiple abdominal surgeries, gastric bypass surgery in the past, has had similar history in the past. X-ray was negative for any evidence of acute obstruction. Patient has been tolerating clears with some toast and crackers thus far without any significant nausea or vomiting. Diet being advanced, encourage small frequent meals with oral supplements at this time. Placed on Protonix twice daily for now and seems to be helping Seen by GI in consultation. Given her history of gastric bypass recommended doing an EGD to rule out any marginal ulcers. Patient underwent EGD today, normal esophagus, erythematous area of the stomach noted, biops follow-up outpatient with primary GI. Also encourage complete cessation of cannabis use Adrenal insufficiency- Received a dose of IV dexamethasone initially as she had not taken any of her oral medications on presentation. Resumed back on hydrocortisone home dosing 10 mg in the morning and 5 mg in the evening. She is scheduled to have an outpatient MRI to evaluate her pituitary for a cause of her adrenal insufficiency. Elevated troponin- The patient is a known nonischemic cardiomyopathy, believed likely to be Takotsubo's cardiomyopathy. recently underwent cardiac catheterization in 08/2023 which demonstrated clean coronary arteries. Her troponin has normalized and she is currently chest pain-free. We will continue her on carvedilol 12.5 mg twice daily. Opioid dependence secondary to chronic pain- Continue home medications of OxyContin and oxycodone at this time. Anxiety- Continue nortriptyline 50 mg daily, quetiapine 100 mg nightly, hydroxyzine 25 mg nightly, and clonazepam 1 mg every 8 hours as needed. CODE STATUS- FULL CODE. Patient medically stable for discharge, improved nausea and vomiting. Also improved renal functionsat this time. Outpatient follow-up with PCP in 1 to 2 weeks Follow-Up Instructions and Recommendations Follow-up with PCP as outpatient in1 to 2 weeks Follow up biopsy results as outpatient Discharge Medications Your medication list START taking these medications Instructions Last Dose Given Next Dose Due pantoprazole 40 mg EC tablet Commonly known as: PROTONIX Take 1 tablet (40 mg total) by mouth 2 (two) times a day. Do not crush, chew, or split. CONTINUE taking these medications Instructions Last Dose Given Next Dose Due carvediloL 12.5 mg tablet Commonly known as: COREG Take 1 tablet (12.5 mg total) by mouth 2 (two) times a day. clonazePAM 1 mg tablet Commonly known as: KlonoPIN Take 1 tablet (1 mg total) by mouth 3 (three) times a day if needed for anxiety. Max Daily Amount: 3 mg estradioL 0.01 % (0.1 mg/gram) vaginal cream Commonly known as: ESTRACE Notes to patient: Resume normal schedule Insert 1 g into the vagina 3 (three) times a week. fesoterodine 4 mg tablet extended release 24 hr Notes to patient: Resume normal schedule Take 1 tablet by mouth 1 (one) time each day. hydrocortisone 5 mg tablet Commonly known as: CORTEF Take 1-2 tablets (5-10 mg total) by mouth 2 (two) times a day. TAKE 2 TABLETS AT 8 AM AND TAKE 1 TABLET 6PM hydrOXYzine pamoate 25 mg capsule Commonly known as: VISTARIL Take 1 capsule (25 mg total) by mouth at bedtime. nortriptyline 25 mg capsule Commonly known as: PAMELOR Take 2 capsules (50 mg total) by mouth 1 (one) time each day. oxyCODONE 15 mg immediate release tablet Commonly known as: ROXICODONE Take 1 tablet (15 mg total) by mouth every 8 (eight) hours if needed. Max Daily Amount: 45 mg QUEtiapine 100 mg tablet Commonly known as: SEROquel Take 1 tablet (100 mg total) by mouth at bedtime. scopolamine 1 mg over 3 days patch 3 day Commonly known as: TRANSDERM-SCOP Notes to patient: Resume normal schedule Apply 1 patch topically every 3rd (third) day. spironolactone 25 mg tablet Commonly known as: ALDACTONE Notes to patient: Resume normal schedule Take 0.5 tablets (12.5 mg total) by mouth 1 (one) time each day. tamsulosin 0.4 mg 24 hr capsule Commonly known as: FLOMAX Take 1 capsule (0.4 mg total) by mouth at bedtime. Xtampza ER 18 mg capsule,sprinkle,ER 12hr tmprr Generic drug: oxyCODONE myristate Notes to patient: Resume normal schedule Take 54 mg by mouth 2 (two) times a day. Max Daily Amount: 108 mg zolpidem 5 mg tablet Commonly known as: AMBIEN Take 1 tablet (5 mg total) by mouth at bedtime as needed for sleep. Max Daily Amount: 5 mg Where to Get Your Medications These medications were sent to [facility] #[id number] - [address] AT [address] [id number] Hours: 24-hours pantoprazole 40 mg EC tablet Physical Exam at time of Discharge Physical Exam Middle-age female not in any acute distress HEENT PERRLA Neck supple Chest clear to auscultation bilaterally Heart S1-S2 regular Abdomen soft no significant tenderness noted bowel sounds present Extremities no edema pulses present bilaterally. Vitals Visit Vitals BP (!) 129/90 Pulse 66 Temp 36.8 ??C (98.3 ??F) (Temporal) Resp 18 Temp (24hrs), Av.7 ??C (98 ??F), Min:36.2 ??C (97.2 ??F), Max:36.9 ??C (98.4 ??F) Body mass index is 22.96 kg/m??. No results found for: PTWT , PTHT Results from last 7 days Lab Units 03/18/24 0624 03/17/24 0534 03/16/24 2255 SODIUM mmol/L 136 133 132* POTASSIUM mmol/L 4.3 4.2 3.9 CHLORIDE mmol/L 103 101 99 CO2 mmol/L 29 28 27 BUN mg/dL 15 29* 33* CREATININE mg/dL 1.00 1.80* 2.51* GLUCOSE mg/dL 106* 129* 101* CALCIUM mg/dL 9.0 8.7 9.2 XR Abdomen 1 View Final Result FINDINGS/IMPRESSION: Postsurgical changes in the left upper quadrant. Nonobstructive bowel gas pattern. Lung bases are clear. Mild lower lumbar facet arthritis. -------- FINAL REPORT -------- Dictated By: URBANO MATTHEWS Dictated Date: 03/17/2024 11:55 ET Assigned Physician: URBANO MATTHEWS Reviewed and Electronically Signed By: URBANO MATTHEWS Signed Date: 03/17/2024 11:56 ET Workstation ID: [id number] Transcribed By: Self Edit Transcribed Date: 03/17/2024 11:55 ET US Retroperitoneal Complete Final Result Impression: 1. Nonobstructive left nephrolithiasis. This document has been electronically signed by: Tristin Mcmillan MD on 03/17/2024 02:34:03 XR Chest 2 Views Final Result FINDINGS/IMPRESSION: Lungs are clear. No pleural effusion or pneumothorax. Cardiac silhouette is normal in size. Dextroconvex thoracic and levoconvex lumbar curvature. No acute displaced fracture. -------- FINAL REPORT -------- Dictated By: URBANO MATTHEWS Dictated Date: 03/16/2024 18:48 ET Assigned Physician: URBANO MATTHEWS Reviewed and Electronically Signed By: URBANO MATTHEWS Signed Date: 03/16/2024 18:49 ET Workstation ID: [id number] Transcribed By: Self Edit Transcribed Date: 03/16/2024 18:48 ET XR Knee 4+ Views Right Final Result FINDINGS/IMPRESSION: No acute fracture or dislocation. Mild medial compartment predominant degenerative change. No joint effusion or focal soft tissue swelling. -------- FINAL REPORT -------- Dictated By: URBANO MATTHEWS Dictated Date: 03/16/2024 18:46 ET Assigned Physician: URBANO MATTHEWS Reviewed and Electronically Signed By: URBANO MATTHEWS Signed Date: 03/16/2024 18:47 ET Workstation ID: [id number] Transcribed By: Self Edit Transcribed Date: 03/16/2024 18:46 ET Total time spent 45 minutes doing chart review, seeing patient performing physical exam, formulating plan, coordinating with RN, ICC for discharge, and documentation This dictation was performed using voice recognition software. Word substitution may have occurred and may have gone unnoticed and uncorrected * Yesika Kerns MD - 03/18/2024 1:45 PM EST Images from the original note were not included. [place] DISCHARGE SUMMARY Patient Information Eboni Tatum : 1975 [48 y.o.] Admitting Provider Derrick Severino MD Discharge Provider Yesika Kerns MD, Yesika Kerns MD Primary Care Physician Lisseth Nassar NP Admission Date 03/16/2024 Discharge Date 03/18/2024 Plan for discharge canceled at this time. Seen by GI, will plan to do upper endoscopy in a.m. givenher history of GERD to rule out any marginal ulcers. Hold AC. N.p.o. past midnight for EGD in a.m. Summary of Hospital Problems Presenting Chief Complaint: Nausea vomiting Primary Discharge Diagnosis: Acute renal failure (CMS/HCC) improved Nausea, vomiting improved Secondary Discharge Diagnosis: Adrenal insufficiency History of nonischemic cardiomyopathy Chronic pain on opiates Anxiety Discharge Destination: Home Code Status at Discharge: Full Code - Default Hospital Course Summary 48 year-old female with history chronic nausea and abdominal pain, multiple bariatric procedures, hypertension, non-ischemic cardiomyopathy LVEF 50-55%, GERD, irritable bowel syndrome, adrenal insufficiency on oral hydrocortisone, anxiety, and opioid dependence secondary to chronic pain presents with acute renal failure, nausea/vomiting, and elevated troponin. Acute renal failure- resolved Secondary to nausea vomiting, with volume depletion. Spironolactone was held initially on presentation. Creatinine was elevated to 2.8 from baseline. Was placed on IV fluids, creatinine improved and back to normal at this time. Renal ultrasound done does not show any evidence of obstruction at this time. Showed non obstructive left nephrolithiasis. Resume back on spironolactone on DC Nausea and vomiting - improved Patient has history of multiple abdominal surgeries, gastric bypass surgery in the past, has had similar history in the past. X-ray was negative for any evidence of acute obstruction. Patient has been tolerating clears with some toast and crackers thus far without any significant nausea or vomiting. Diet being advanced, encourage small frequent meals with oral supplements at this time. Placed on Protonix twice daily for now and seems to be helping Adrenal insufficiency- Received a dose of IV dexamethasone initially as she had not taken any of her oral medications on presentation. Resumed back on hydrocortisone home dosing 10 mg in the morning and 5 mg in the evening. She is scheduled to have an outpatient MRI to evaluate her pituitary for a cause of her adrenal insufficiency. Elevated troponin- The patient is a known nonischemic cardiomyopathy, believed likely to be Takotsubo's cardiomyopathy. recently underwent cardiac catheterization in 08/2023 which demonstrated clean coronary arteries. Her troponin has normalized and she is currently chest pain-free. We will continue her on carvedilol 12.5 mg twice daily. Opioid dependence secondary to chronic pain- Continue home medications of OxyContin and oxycodone at this time. Anxiety- Continue nortriptyline 50 mg daily, quetiapine 100 mg nightly, hydroxyzine 25 mg nightly, and clonazepam 1 mg every 8 hours as needed. CODE STATUS- FULL CODE. Patient medically stable for discharge, improved nausea and vomiting tolerating diet. Also improvedrenal functions at this time. Outpatient follow-up with PCP in 1 to 2 weeks Follow-Up Instructions and Recommendations Follow-up with PCP as outpatient in1 to 2 weeks Discharge Medications Your medication list START taking these medications Instructions Last Dose Given Next Dose Due pantoprazole 40 mg EC tablet Commonly known as: PROTONIX Take 1 tablet (40 mg total) by mouth 2 (two) times a day. Do not crush, chew, or split. CONTINUE taking these medications Instructions Last Dose Given Next Dose Due carvediloL 12.5 mg tablet Commonly known as: COREG Take 1 tablet (12.5 mg total) by mouth 2 (two) times a day. clonazePAM 1 mg tablet Commonly known as: KlonoPIN Take 1 tablet (1 mg total) by mouth 3 (three) times a day if needed for anxiety. Max Daily Amount: 3 mg estradioL 0.01 % (0.1 mg/gram) vaginal cream Commonly known as: ESTRACE Insert 1 g into the vagina 3 (three) times a week. fesoterodine 4 mg tablet extended release 24 hr Take 1 tablet by mouth 1 (one) time each day. hydrocortisone 5 mg tablet Commonly known as: CORTEF Take 1-2 tablets (5-10 mg total) by mouth 2 (two) times a day. TAKE 2 TABLETS AT 8 AM AND TAKE 1 TABLET 6PM hydrOXYzine pamoate 25 mg capsule Commonly known as: VISTARIL Take 1 capsule (25 mg total) by mouth at bedtime. nortriptyline 25 mg capsule Commonly known as: PAMELOR Take 2 capsules (50 mg total) by mouth 1 (one) time each day. oxyCODONE 15 mg immediate release tablet Commonly known as: ROXICODONE Take 1 tablet (15 mg total) by mouth every 8 (eight) hours if needed. Max Daily Amount: 45 mg scopolamine 1 mg over 3 days patch 3 day Commonly known as: TRANSDERM-SCOP Apply 1 patch topically every 3rd (third) day. spironolactone 25 mg tablet Commonly known as: ALDACTONE Take 0.5 tablets (12.5 mg total) by mouth 1 (one) time each day. tamsulosin 0.4 mg 24 hr capsule Commonly known as: FLOMAX Take 1 capsule (0.4 mg total) by mouth at bedtime. Xtampza ER 18 mg capsule,sprinkle,ER 12hr tmprr Generic drug: oxyCODONE myristate Take 54 mg by mouth 2 (two) times a day. Max Daily Amount: 108 mg zolpidem 5 mg tablet Commonly known as: AMBIEN Take 1 tablet (5 mg total) by mouth at bedtime as needed for sleep. Max Daily Amount: 5 mg ASK your doctor about these medications Instructions Last Dose Given Next Dose Due QUEtiapine 100 mg tablet Commonly known as: SEROquel Take 1 tablet (100 mg total) by mouth at bedtime. Where to Get Your Medications These medications were sent to [id number] - [place], [place] - [address] [facility] [address] [facility] [phone] Hours: 24-hours pantoprazole 40 mg EC tablet Physical Exam at time of Discharge Physical Exam Middle-age female not in any acute distress HEENT PERRLA Neck supple Chest clear to auscultation bilaterally Heart S1-S2 regular Abdomen soft no significant tenderness noted bowel sounds present Extremities no edema pulses present bilaterally. Vitals Visit Vitals BP (!) 131/90 (BP Location: Right arm;Upper, Patient Position: Sitting) Pulse 65 Temp 36.6 ??C (97.9 ??F) (Oral) Resp 18 Temp (24hrs), Av.5 ??C (97.7 ??F), Min:36.2 ??C (97.1 ??F), Max:36.7 ??C (98.1 ??F) Body mass index is 23.43 kg/m??. No results found for: PTWT , PTHT Results from last 7 days Lab Units 03/18/24 0624 03/17/24 0534 03/16/24 2255 SODIUM mmol/L 136 133 132* POTASSIUM mmol/L 4.3 4.2 3.9 CHLORIDE mmol/L 103 101 99 CO2 mmol/L 29 28 27 BUN mg/dL 15 29* 33* CREATININE mg/dL 1.00 1.80* 2.51* GLUCOSE mg/dL 106* 129* 101* CALCIUM mg/dL 9.0 8.7 9.2 XR Abdomen 1 View Final Result FINDINGS/IMPRESSION: Postsurgical changes in the left upper quadrant. Nonobstructive bowel gas pattern. Lung bases are clear. Mild lower lumbar facet arthritis. -------- FINAL REPORT -------- Dictated By: URBANO MATTHEWS Dictated Date: 03/17/2024 11:55 ET Assigned Physician: URBANO MATTHEWS Reviewed and Electronically Signed By: URBANO MATTHEWS Signed Date: 03/17/2024 11:56 ET Workstation ID: [id number] Transcribed By: Self Edit Transcribed Date: 03/17/2024 11:55 ET US Retroperitoneal Complete Final Result Impression: 1. Nonobstructive left nephrolithiasis. This document has been electronically signed by: Tristin Mcmillan MD on 03/17/2024 02:34:03 XR Chest 2 Views Final Result FINDINGS/IMPRESSION: Lungs are clear. No pleural effusion or pneumothorax. Cardiac silhouette is normal in size. Dextroconvex thoracic and levoconvex lumbar curvature. No acute displaced fracture. -------- FINAL REPORT -------- Dictated By: URBANO MATTHEWS Dictated Date: 03/16/2024 18:48 ET Assigned Physician: URBANO MATTHEWS Reviewed and Electronically Signed By: URBANO MATTHEWS Signed Date: 03/16/2024 18:49 ET Workstation ID: [id number] Transcribed By: Self Edit Transcribed Date: 03/16/2024 18:48 ET XR Knee 4+ Views Right Final Result FINDINGS/IMPRESSION: No acute fracture or dislocation. Mild medial compartment predominant degenerative change. No joint effusion or focal soft tissue swelling. -------- FINAL REPORT -------- Dictated By: URBANO MATTHEWS Dictated Date: 03/16/2024 18:46 ET Assigned Physician: URBANO MATTHEWS Reviewed and Electronically Signed By: URBANO MATTHEWS Signed Date: 03/16/2024 18:47 ET Workstation ID: [id number] Transcribed By: Self Edit Transcribed Date: 03/16/2024 18:46 ET Total time spent 45 minutes doing chart review, seeing patient performing physical exam, formulating plan, coordinating with RN, ICC for discharge, and documentation This dictation was performed using voice recognition software. Word substitution may have occurred and may have gone unnoticed and uncorrected * Yesika Kerns MD - 03/18/2024 1:45 PM EST Small frequent meals, Ensure oral supplements to increase calorie intake * Yesika Kerns MD - 03/18/2024 1:45 PM EST As tolerated documented in this encounter Discharge Instructions * Discharge Instructions* Yesika Kerns MD - 03/18/2024 1:45 PM EST Follow-up with your primary care physician as outpatient in a week Continue taking rest of the medications as before. Protonix has been added at this time documented in this encounter Medications at Time of Discharge Medication Sig Dispensed Refills Start Date End Date estradioL (ESTRACE) 0.01 % (0.1 mg/gram) vaginal cream Insert 1 g into the vagina 3 (three) times a week. 10/25/2023 hydrocortisone (CORTEF) 5 mg tablet Take 1-2 tablets (5-10 mg total) by mouth 2 (two) times a day. TAKE 2 TABLETS AT 8 AM AND TAKE 1 TABLET 6PM 02/27/2024 nortriptyline (PAMELOR) 25 mg capsule Take 2 capsules (50 mg total) by mouth 1 (one) time each day. 02/28/2024 oxyCODONE (ROXICODONE) 15 mg immediate release tablet Take 1 tablet (15 mg total) by mouth every 8 (eight) hours if needed. Max Daily Amount: 45 mg 03/15/2024 pantoprazole (PROTONIX) 40 mg EC tablet Take 1 tablet (40 mg total) by mouth 2 (two) times a day. Do not crush, chew, or split. 60 each 03/19/2024 04/18/2024 scopolamine (TRANSDERM-SCOP) 1 mg over 3 days patch 3 day Apply 1 patch topically every 3rd (third) day. 02/16/2022 spironolactone (ALDACTONE) 25 mg tablet Take 0.5 tablets (12.5 mg total) by mouth 1 (one) time each day. 03/06/2024 Xtampza ER 18 mg capsule,sprinkle,ER 12hr tmprr Take 54 mg by mouth 2 (two) times a day. Max Daily Amount: 108 mg 03/15/2024 zolpidem (AMBIEN) 5 mg tablet Take 1 tablet (5 mg total) by mouth at bedtime as needed for sleep. Max Daily Amount: 5 mg 07/10/2021 carvediloL (COREG) 12.5 mg tablet Take 1 tablet (12.5 mg total) by mouth 2 (two) times a day. clonazePAM (KlonoPIN) 1 mg tablet Take 1 tablet (1 mg total) by mouth 3 (three) times a day if needed for anxiety. Max Daily Amount: 3 mg fesoterodine 4 mg tablet extended release 24 hr Take 1 tablet by mouth 1 (one) time each day. hydrOXYzine pamoate (VISTARIL) 25 mg capsule Take 1 capsule (25 mg total) by mouth at bedtime. QUEtiapine (SEROquel) 100 mg tablet Take 1 tablet (100 mg total) by mouth at bedtime. tamsulosin (FLOMAX) 0.4 mg 24 hr capsule Take 1 capsule (0.4 mg total) by mouth at bedtime. documented as of this encounter Ordered Prescriptions Prescription Sig Dispensed Refills Start Date End Da te pantoprazole (PROTONIX) 40 mg EC tablet Take 1 tablet (40 mg total) by mouth 2 (two) times a day. Do not crush, chew, or split. 60 each 03/19/2024 04/18/2024 pantoprazole (PROTONIX) 40 mg EC tablet Take 1 tablet (40 mg total) by mouth 2 (two) times a day. Do not crush, chew, or split. 60 each 1 03/18/2024 03/19/2024 documented in this encounter Discharge Disposition Disposition Code Departure Means Destination Comment s Home or Self Care documented in this encounter Progress Notes * Jesse Saenz DO - 03/19/2024 3:40 PM EST Please let the patient know that her stomach biopsies show that she continues to have active acid inflammation without any precancer cells or infections. This is important and could explain some of her symptoms. It is my recommendation that she increase his omeprazole 40 mg twice daily for the next2 weeks and then she decreases it to 20 mg daily indefinitely after that. She should certainly follo w-up with her primary GI doctor, Dr. Patino, at [facility]. Thank you. * Sandi Clement MA - 03/19/2024 3:40 PM EST Patient informed. Egd and path faxed to her GI dr at [facility] [place] -Dr Patino * Marleny Cortes RN - 03/19/2024 2:35 PM EST 03/19/24 1435 Back up Transition Plan Back up Transition plan Home Discharge Planning Living Arrangements Children Type of Residence Private residence Assistive Devices Walker;Wheelchair;Cane Support Systems Spouse/significant other;Caregiver Medication Coverage Has Med Coverage Under Insurance Plan Yes Transportation Transportation at discharge Family What day is the transport expected? 03/19/24 Final Discharge Disposition Home or Self Care ICC reviewed and met with Pt at the bedside. No discharge needs identified. Plan is home with self care today. Daughter to transprot home. * Geronimo Bardales RN - 03/19/2024 12:16 PM EST Clip placed in stomach bleeding site * Marcella Luna RN - 03/19/2024 5:09 AM EST Goals: Problem: Sensory: Acute Pain Goal: Pain level will improve or be tolerable Outcome: Progressing Problem: Fluid Volume: Nausea Goal: Will show no signs and symptoms of electrolyte imbalance Outcome: Progressing Identify possible barriers to meeting goals/advancing plan of care: Medical condition Stability of the patient: Moderately Stable - Low risk of patient condition declining or worsening End of Shift Summary: Pt is alert and oriented. Pain is being controlled with pain meds. Will continue to monitor * Milly Redding RN - 03/18/2024 1:23 PM EST Goals: Identify possible barriers to meeting goals/advancing plan of care: Stability of the patient: Moderately Stable - Low risk of patient condition declining or worsening End of Shift Summary: Patient alert and oriented x 4. Patient OOB ad marlin. VSS. Medicated for abdominal pain, see MAR. Patient to be discharged home this afternoon. * Ambrose Friedman RN - 03/18/2024 3:15 AM EST Problem: Cognitive: Acute Pain Goal: Expressions of feelings of enhanced comfort will increase Outcome: Progressing Problem: Patient Specific Problem: Acute Pain Goal: Patient Specific Outcome Outcome: Progressing Goals: Identify possible barriers to meeting goals/advancing plan of care: pt continues to express pain educated on medication and administration window this shift. Stability of the patient: Moderately Stable - Low risk of patient condition declining or worsening End of Shift Summary: pt did not have any episodes of vomited this shift however did complain of nausea this shift. Pt continues to C/O pain prn medication given several times and has been effective for a small period of time. Pt is currently in bed resting call neal in reach safety measure maintained. * Derrick Severino MD - 03/17/2024 4:52 PM EST Seen and examined in the emergency room earlier today when she was in the room 27 in the ER and later on when she came up to room 507 bed to This is a pleasant 48-year-old lady with chronic abdominal pain related to prior abdominal surgeries including gastric bypass and prior banding, presented with abdominal pain nausea and vomiting, andprogressive weight loss found to have acute renal failure The patient initial creatinine was 2.8 and she had normal creatinine in November The patient received IV hydration in the ER, shock dose of steroid for adrenal insufficiency with dexamethasone And her pain required intravenous Dilaudid On examination, pleasant middle-aged lady appears under built with signs of muscle loss Not in distress Not jaundiced Abdomen examination: Generalized tenderness without rigidity 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 KUB obtained in the emergency room did not show any bowel obstruction Renal ultrasound showed nonobstructive nephrolithiasis Acute on chronic abdominal pain Possible gastritis /less likely bowel obstruction I am starting the patient on intravenous proton pump inhibitor IV Protonix, sucralfate, changed herstatus to inpatient, Serial abdominal examination She can have clear liquid diet with crackers that she has been requesting I discussed the case peripherally with the surgical team and since the patient does not have any findings on the KUB she does not require surgical consultation at this time But I did place GI consultation A.m. labs ordered including lipase Discussed with patient, nurse Milly at the bedside, and case management Angelika Taveras addendum EKG showed normal sinus rhythm, QT C is 480 discussed with clinical pharmacist Sravan Foster, reports the new Protonix or sucralfate are not responsible for QT prolongation . She has only received her Seroquel at 0200 today and IV Zofran around 0800 but no QT prolonging agent recently. But will need to be careful with Zofran or clonazepam For now we will continue current management , and repeat EKG in a.m. Orders Placed This Encounter Procedures XR Chest 2 Views Standing Status: Standing Number of Occurrences: 1 Order Specific Question: Is the patient ? Answer: Unknown XR Knee 4+ Views Right Standing Status: Standing Number of Occurrences: 1 Order Specific Question: Is the patient ? Answer: No US Retroperitoneal Complete Standing Status: Standing Number of Occurrences: 1 XR Abdomen 1 View Standing Status: Standing Number of Occurrences: 1 Order Specific Question: Portable? Answer: Yes Order Specific Question: Is the patient ? Answer: No Troponin I high sensitivity Standing Status: Standing Number of Occurrences: 2 CBC and differential Standing Status: Standing Number of Occurrences: 1 Comprehensive metabolic panel Standing Status: Standing Number of Occurrences: 1 Lipase Standing Status: Standing Number of Occurrences: 1 Magnesium Standing Status: Standing Number of Occurrences: 1 B-type natriuretic peptide Standing Status: Standing Number of Occurrences: 1 CBC auto differential Standing Status: Standing Number of Occurrences: 1 Basic metabolic panel Standing Status: Standing Number of Occurrences: 1 Troponin I high sensitivity Standing Status: Standing Number of Occurrences: 1 Basic metabolic panel Standing Status: Standing Number of Occurrences: 1 CBC and differential Standing Status: Standing Number of Occurrences: 1 Creatinine, urine, random Standing Status: Standing Number of Occurrences: 1 Protein, urine, random Standing Status: Standing Number of Occurrences: 1 Sodium, urine, random Standing Status: Standing Number of Occurrences: 1 Urinalysis with reflex microscopic Standing Status: Standing Number of Occurrences: 1 HCG qualitative, urine Standing Status: Standing Number of Occurrences: 1 Urinalysis with reflex microscopic Standing Status: Standing Number of Occurrences: 1 CBC auto differential Standing Status: Standing Number of Occurrences: 1 Complete blood count Standing Status: Standing Number of Occurrences: 1 Magnesium Standing Status: Standing Number of Occurrences: 1 Phosphorus Standing Status: Standing Number of Occurrences: 1 Prothrombin time with INR Standing Status: Standing Number of Occurrences: 1 Basic metabolic panel Standing Status: Standing Number of Occurrences: 1 CBC and differential Standing Status: Standing Number of Occurrences: 1 Comprehensive metabolic panel Standing Status: Standing Number of Occurrences: 1 Magnesium Standing Status: Standing Number of Occurrences: 1 Phosphorus Standing Status: Standing Number of Occurrences: 1 Prothrombin time with INR Standing Status: Standing Number of Occurrences: 1 Lipase Standing Status: Standing Number of Occurrences: 1 Lipase Standing Status: Standing Number of Occurrences: 1 Troponin I high sensitivity Standing Status: Standing Number of Occurrences: 1 C-reactive protein Standing Status: Standing Number of Occurrences: 1 Adult diet [facility]; Modified Consistency Options for Liquids and Solids; Clear Liquid; Self-Select Meals Standing Status: Standing Number of Occurrences: 1 Order Specific Question: Location Answer: [facility] [[id number]] Order Specific Question: Diet Type (req) Answer: Modified Consistency Options for Liquids and Solids Order Specific Question: Modified Consistency Options for Liquids and Solids Answer: Clear Liquid Order Specific Question: Is the patient able to participate in meal ordering? Answer: Self-Select Meals ACTIVITY As tolerated Standing Status: Standing Number of Occurrences: 1 Order Specific Question: Type of activity Answer: As tolerated Vital Signs (specify frequency) Includes: Temperature, Pulse, Respirations and Blood Pressure Standing Status: Standing Number of Occurrences: 1 Notify physician - vital signs Standing Status: Standing Number of Occurrences: 1 Order Specific Question: Temperature GREATER than Answer: 38.3 Order Specific Question: Systolic blood pressure GREATER than Answer: 180 Order Specific Question: Systolic blood pressure LESS than Answer: 90 Order Specific Question: Diastolic blood pressure GREATER than Answer: 100 Order Specific Question: Diastolic blood pressure LESS than Answer: 40 Order Specific Question: Heart rate GREATER than Answer: 120 Order Specific Question: Heart rate LESS than Answer: 60 Order Specific Question: Other Answer: Urine output below 0.5mL/kg/hr, symptomatic hypotension or bradycardia Order Specific Question: Provider to notify Answer: Primary Service Intake and output Standing Status: Standing Number of Occurrences: 1 Maintain IV access Standing Status: Standing Number of Occurrences: 1 Strict intake and output Standing Status: Standing Number of Occurrences: 1 Strict intake and output Standing Status: Standing Number of Occurrences: 1 Strict intake and output Standing Status: Standing Number of Occurrences: 1 Full code - Default This is order is used when code status has not been discussed with the patient, or code status is otherwise unknown/unconfirmed To update the patient's code status, place a code status order. Do not modify or discontinue any currently active code status orders. Standing Status: Standing Number of Occurrences: 1 Inpatient consult to Nutrition Services Standing Status: Standing Number of Occurrences: 1 Order Specific Question: Reason for Consultation Answer: Malnutrition Screening Tool Score Order Specific Question: Reason for Consultation Answer: Oral Nutrition Supplements Order Specific Question: Reason for Consultation Answer: Unintentional Weight Loss Inpatient consult to Gastroenterology Hx of gastric bypass, chronic pain Standing Status: Standing Number of Occurrences: 1 Order Specific Question: Reason for Consult? Answer: epigastric pain , vomiting to PUD Order Specific Question: Level of Consultation Answer: Consultation and Management Order Specific Question: Did you contact the independent beauty consultant? Answer: No ECG 12 lead REPEAT ECG WITH SECOND TROPONIN Standing Status: Standing Number of Occurrences: 2 Order Specific Question: Reason for Exam: Answer: Chest Pain ECG 12 lead PRN Standing Status: Standing Number of Occurrences: 85357 Order Specific Question: Reason for Exam: Answer: Chest Pain ECG 12 lead Prior QT prolongation Standing Status: Standing Number of Occurrences: 1 Order Specific Question: Reason for Exam: Answer: Abnormal ECG Insert peripheral IV Standing Status: Standing Number of Occurrences: 1 Saline lock IV Standing Status: Standing Number of Occurrences: 1 Initiate observation status Standing Status: Standing Number of Occurrences: 1 Order Specific Question: Diagnosis Answer: Acute renal failure ([facility]) [813913] Admit to Inpatient As the signing/cosigning attending physician, I certify the inpatient services spanning a projectedtwo midnights are medically necessary for the patient OR the patient has undergone an inpatient-only procedure and will be discharged when medically stable. Please see H&P and physician progress notes for additional information about the patient???s course of treatment. These services are provid ed in accordance with chapter 42. Section 412.3 of the Code of Federal Regulations. Standing Status: Standing Number of Occurrences: 1 Order Specific Question: Diagnosis Answer: Acute kidney injury ([facility]) [913212] ED to floor bed request Standing Status: Standing Number of Occurrences: 1 * Milly Redding RN - 03/17/2024 3:29 PM EST Goals: Identify possible barriers to meeting goals/advancing plan of care: Stability of the patient: Moderately Stable - Low risk of patient condition declining or worsening End of Shift Summary: Patient arrived to floor at 12:45pm from the ER. VSS. No c/o nausea, no vomiting. Tolerating clears with toast and crackers well. OOB ambulating ad marlin in room. Patient c/o abdominal pain, see MAR for pain medication given so far. Patient now resting in bed talking with her roommates family. Call neal within reach. * Arnold Rivera RN - 03/17/2024 12:19 PM EST ED RN HANDOFF (All White Below Must Be Completed) Reason/Diagnosis for Admission: Type of Admission: [x] Medsurg, [] Telemetry Already in a Hospital Bed: [x] Yes / [] No Room Considerations/Precautions (ex: fever, diarrhea, or any infectious concerns): [] Yes / [x] No Retail Loss Prevention Officer: [] Yes / [x] No If YES, Cardiac Rhythm: [] NSR, [] SB, [] ST, [] A-FIB, [] A-Flutter, [] Pacemaker, [] 1st Degree HB, [] 2nd Degree HB, [] 3rd Degree HB Reason for Retail Loss Prevention Officer: VS: Visit Vitals BP (!) 130/95 (BP Location: Left arm, Patient Position: Sitting) Pulse 82 Temp 37 ??C (98.6 ??F) (Oral) Resp 18 Ht 1.664 m (65.5 ) Wt 64.9 kg (143 lb) SpO2 100% BMI 23.43 kg/m?? Smoking Status Never BSA 1.73 m?? Current Mental Status: A/O x [x]4, []3, []2, []1 Current Ambulation Status: IV Access: [x] Yes / [] No Field IV present: [] Yes / [x] No Hx of Violence: [] Yes / [] No / [x] Unknown Fall Risk:[] Yes / [x] No Yellow Bracelet Applied [] Yes / [] No Yellow Socks Applied [] Yes / [] No Patient Belongings inventoried and BL completed: [x] Yes / [] No Patient belongings stored in the security closet: [] Yes (If Yes please supply Security bag #): [] No Patient Medications stored in Pharmacy: [] Yes (If Yes please supply Medication Security bag #): [] No ED Summary of Care: c/o N/V/ABD pain, leg spasms, SOB & CP, tripped when leaving house and hit R cheney c/o pain and swelling to area. Chemistry labs showed sodium 130 & acute renal failure CRE2.82 up from baseline, BNP 134. Patient medicated and hydrated per MAY. Q3hr dilaudid & oxycodone q6hr for pain per MAY. US retroperitoneal showed nonobstructive left nephrolithiasis. Admit for acute renal failure. Submitted by and Phone Extension: [email or web address] [phone] * Ana Maria Ryan RN - 03/17/2024 10:42 AM EST Peripheral IV in right AC infiltrated, no blood return. IV removed and this RN used ultrasound guidance to insert a new IV in left upper arm. Ana Maria Ryan RN 03/17/24 1043 * Tad Luna RN - 03/17/2024 4:38 AM EST Patient is resting at bedside with equal and unlabored respirations. The bed is locked and in the lowest position. The call light is within reach. Will continue to monitor. * Sade Lutz MD - 03/17/2024 2:02 AM EST ED Course as of 03/17/24201Mar 16, 20241931 Patient seen and evaluated by my attending. We discussed plan together. Will proceed with 2 bolus liters of LR fluid for hydration, antiemetics, analgesic with close reevaluation and repeat labsto recheck for improvement of suspected hypovolemic related kidney injury. [AT] 193 Patient has no acute EKG changes and troponins appear to be trending downward and is likely demand related from the kidney injury. She will notify us if she has any return of chest pain. We willrecheck a third troponin. [AT] 193 High Sensitivity Troponin I(!): 61 [AT] 2254 Patient is feeling improved and has received 2 L LR. Repeat labs just drawn and pending. She has received medication for chronic pain that she reports she typically takes outpatient oxycodone for and is stable with no new pain. [AT] 2300 Assumed care from previous provider after a detailed discussion regarding patient's case. [id number] evaluation has taken place with no new change in management. Patient is awaiting repeat blood work and final disposition. [MG] Sat Mar 17, 2024 0030 Repeat blood work shows persistent MELANY. Will admit to hospitalist for further care and evaluation. Patient medicated with an additional dose of Dilaudid for continued abdominal pain. Nausea improving after Zofran. [MG] ED Course User Index [AT] JUAN RAMON Rojas [MG] Sade Lutz MD Clinical Impressions as of 03/17/24 020 Acute kidney injury (CMS/HCC) Cyclic vomiting syndrome History of gastric bypass Cardiac enzymes elevated Disposition Observation Condition Stable * Tad Luna RN - 03/17/2024 12:10 AM EST This RN assumed care of this patient at this time. Patient is alert and oriented to person place and time. Respirations are equal and unlabored. Patient is resting in bed, the bed is locked and in the lowest position and the call light is within reach. The patient does not express any needs at thistime. * Anil Louis MD - 03/16/2024 6:12 PM EST Patient will require further workup in the emergency department. I have spoken with the patient and explained that we strive to provide safe and effective care in the emergency department. During their visit they may experience extended wait times. I have discussed that out of concern for their safety, if the patient needs to leave for any reason to please let staff know immediately. I discussed with triage nurse upfront that patient's troponin is elevated, I checked her last ER visit and she does have history of an NSTEMI likely Takotsubo cardiomyopathy, but her troponins have returned to normal I saw this patient in December, patient states she was having chest pain and started rushing to go to the ER and hit her right tibia so she has a little swelling over her proximal tibia as well, otherwise she is speaking full sentences, and I spoke to triage nurse to see if we can bring the patient to the room earlier as we have significant wait times. * Saritha Coronado RN - 03/16/2024 1:38 PM EST PT STATES THAT LAST NIGHT SHE BEGAN TO HAVE VOMITING AND MUSCLE SPASMS IN LEGS, FEET AND STOMACH AROUND 930P. ALSO REPORTS SOB SINCE YESTERDAY AND CHEST PAIN THAT BEGAN TODAY, MEDIAL. STATES IT STARTED IN THE BACK AND THEN CAME UP TO CHEST, STATES PAIN IS 4/10. 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 DOES HAVE NITRO AT HOME BUT DID NOT TAKE ANY. THIS MORNING SHE ALSO TRIPPED UP THE STAIRS CAUSING SWELLING TO RIGHT [place]. DENIES ANY HEADSTRIKE DURING INCIDENT, WAS ABLE TO CATCH HERSELF. * Anil Louis MD - 03/16/2024 12:49 PM EST Emergency Medicine Note Patient Name: Eboni Tatum Initial Evaluation: 03/16/2024 : 1975 Patient's PCP: Lisseth Nassar NP Emergency Physician: Anil Louis MD History of Present Illness Chief Complaint: Chief Complaint Patient presents with Chest Pain CP starting this AM. HPI: 48-year-old female history of prior gastric bypass 2021, presents with vomiting, muscle aches in legs since 930 yesterday evening and some abdominal discomfort. Also developed shortness of breath, chest pain since today. He took 4 baby aspirin at home prior to arrival. -Denies current chest pain now. -She denies history of chronic kidney disease. ROS: I have performed a ROS with the pertinent positives and negatives documented in the history ofpresent illness. Previous History Past Medical History: Diagnosis Date Anxiety DX:Anxiety Chronic abdominal pain Depression DX:Depression GERD (gastroesophageal reflux disease) HTN (hypertension) DX:HTN (hypertension) Irritable bowel syndrome Non-ischemic cardiomyopathy (CMS/HCC) Opioid type dependence, continuous (CMS/HCC) Past Surgical History: Procedure Laterality Date BREAST REDUCTION PROCEDURE: TX BREAST REDUCTION SECTION, LOW TRANSVERSE GASTRIC BYPASS 01/29/2022 Conversion of sleeve gastrectomy to vazquez-en-Y gastric bypass HIATAL HERNIA REPAIR 06/05/2021 LAPAROSCOPIC GASTRIC BANDING PROCEDURE: LAP ADJUSTABLE GASTRIC BAND SLEEVE GASTROPLASTY 2016 Converted from lap band TOTAL KNEE ARTHROPLASTY Left Social History Tobacco Use Smoking status: Never Smokeless tobacco: Never Substance Use Topics Alcohol use: Yes Alcohol/week: 0.8 standard drinks of alcohol Drug use: Yes Types: Marijuana/Cannabis Comment: CBG/THC drops Family History Problem Relation Name Age of Onset Diabetes Mother Heart disease Mother Lung cancer Father is allergic to sulfamethoxazole-trimethoprim, fentanyl, nsaids (non-steroidal anti-inflammatory drug), sertraline, haloperidol, morphine, and sulfa (sulfonamide antibiotics). No current facility-administered medications on file prior to encounter. Current Outpatient Medications on File Prior to Encounter Medication Sig Dispense Refill estradioL (ESTRACE) 0.01 % (0.1 mg/gram) vaginal cream Insert 1 g into the vagina 3 (three) times aweek. hydrocortisone (CORTEF) 5 mg tablet Take 1-2 tablets (5-10 mg total) by mouth 2 (two) times a day. TAKE 2 TABLETS AT 8 AM AND TAKE 1 TABLET 6PM nortriptyline (PAMELOR) 25 mg capsule Take 2 capsules (50 mg total) by mouth 1 (one) time each day. oxyCODONE (ROXICODONE) 15 mg immediate release tablet Take 1 tablet (15 mg total) by mouth every 8 (eight) hours if needed. Max Daily Amount: 45 mg scopolamine (TRANSDERM-SCOP) 1 mg over 3 days patch 3 day Apply 1 patch topically every 3rd (third)day. spironolactone (ALDACTONE) 25 mg tablet Take 0.5 tablets (12.5 mg total) by mouth 1 (one) time eachday. Xtampza ER 18 mg capsule,sprinkle,ER 12hr tmprr Take 54 mg by mouth 2 (two) times a day. Max Daily Amount: 108 mg zolpidem (AMBIEN) 5 mg tablet Take 1 tablet (5 mg total) by mouth at bedtime as needed for sleep. Max Daily Amount: 5 mg carvediloL (COREG) 12.5 mg tablet Take 1 tablet (12.5 mg total) by mouth 2 (two) times a day. clonazePAM (KlonoPIN) 1 mg tablet Take 1 tablet (1 mg total) by mouth 3 (three) times a day if needed for anxiety. Max Daily Amount: 3 mg fesoterodine 4 mg tablet extended release 24 hr Take 1 tablet by mouth 1 (one) time each day. hydrOXYzine pamoate (VISTARIL) 25 mg capsule Take 1 capsule (25 mg total) by mouth at bedtime. QUEtiapine (SEROquel) 100 mg tablet Take 1 tablet (100 mg total) by mouth at bedtime. tamsulosin (FLOMAX) 0.4 mg 24 hr capsule Take 1 capsule (0.4 mg total) by mouth at bedtime. Physical Exam ED Triage Vitals [03/16/24 1345] Temp Heart Rate Resp BP 37 ??C (98.6 ??F) 90 16 123/73 SpO2 Temp Source Heart Rate Source Patient Position 98 % Oral Monitor Sitting BP Location FiO2 (%) Right arm;Upper -- General: Well-appearing, well nourished, in no acute distress HEENT: PERRL, EOMI, external ears and nose appear unremarkable, airway is patent Neck: Supple, full range of motion Chest: Clear to auscultation; no evidence of respiratory distress Circulatory: RRR, extremities well perfused Abdomen: Non-distended, Non-Tender Extremities: Normal ROM, No edema Skin: Warm and dry Neuro: Alert and oriented, no focal deficits Results Labs Reviewed TROPONIN I HIGH SENSITIVITY - Abnormal Result Value High Sensitivity Troponin I 80 (*) Narrative: High levels of biotin in samples may falsely decrease hsTroponin values. Use caution when interpreting hsTroponin results in patients taking biotin who exhibit renal impairment (eGFR <60) or in patients taking more than 20 mg/day of biotin. TROPONIN I HIGH SENSITIVITY - Abnormal High Sensitivity Troponin I 61 (*) Narrative: High levels of biotin in samples may falsely decrease hsTroponin values. Use caution when interpreting hsTroponin results in patients taking biotin who exhibit renal impairment (eGFR <60) or in patients taking more than 20 mg/day of biotin. COMPREHENSIVE METABOLIC PANEL - Abnormal Sodium 130 (*) Potassium 3.9 Chloride 96 CO2 26 Anion Gap 8 Glucose 119 (*) BUN 28 (*) Creatinine 2.82 (*) eGFR 20 (*) BUN/Creatinine Ratio 9.9 Calcium 9.8 AST (SGOT) 17 ALT (SGPT) 21 Alkaline Phosphatase 98 Total Protein 9.0 (*) Albumin 4.7 Total Bilirubin 0.5 B-TYPE NATRIURETIC PEPTIDE - Abnormal BNP 134 (*) CBC WITH AUTO DIFFERENTIAL - Abnormal WBC 8.8 RBC 5.10 (*) Hemoglobin 14.1 Hematocrit 41.8 MCV 82.6 MCH 27.9 MCHC 33.7 RDW 17.5 (*) Platelets 228 MPV 9.0 NRBC 0.0 NRBC Absolute 0.00 Neutrophils Relative 62.2 Lymphocytes Relative 29.3 Monocytes Relative 7.8 Eosinophils Relative 0.2 Basophils Relative 0.2 Immature Granulocytes Relative 0.3 Neutrophils Absolute 5.48 Lymphocytes Absolute 2.58 Monocytes Absolute 0.69 Eosinophils Absolute 0.02 Basophils Absolute 0.02 Immature Granulocytes Absolute 0.03 BASIC METABOLIC PANEL - Abnormal Sodium 132 (*) Potassium 3.9 Chloride 99 CO2 27 Anion Gap 6 Glucose 101 (*) BUN 33 (*) Creatinine 2.51 (*) eGFR 23 (*) BUN/Creatinine Ratio 13.1 Calcium 9.2 BASIC METABOLIC PANEL - Abnormal Sodium 133 Potassium 4.2 Chloride 101 CO2 28 Anion Gap 4 Glucose 129 (*) BUN 29 (*) Creatinine 1.80 (*) eGFR 35 (*) BUN/Creatinine Ratio 16.1 Calcium 8.7 CBC WITH AUTO DIFFERENTIAL - Abnormal WBC 8.2 RBC 4.30 Hemoglobin 12.0 Hematocrit 35.5 MCV 82.4 MCH 27.8 MCHC 33.8 RDW 17.0 (*) Platelets 179 MPV 9.0 NRBC 0.0 NRBC Absolute 0.00 Neutrophils Relative 78.0 Lymphocytes Relative 18.6 Monocytes Relative 2.7 Eosinophils Relative 0.1 Basophils Relative 0.2 Immature Granulocytes Relative 0.4 Neutrophils Absolute 6.41 Lymphocytes Absolute 1.53 Monocytes Absolute 0.22 Eosinophils Absolute 0.01 Basophils Absolute 0.02 Immature Granulocytes Absolute 0.03 PHOSPHORUS - Abnormal Phosphorus 2.3 (*) COMPREHENSIVE METABOLIC PANEL - Abnormal Sodium 136 Potassium 4.3 Chloride 103 CO2 29 Anion Gap 4 Glucose 106 (*) BUN 15 Creatinine 1.00 eGFR 70 BUN/Creatinine Ratio 15.0 Calcium 9.0 AST (SGOT) 12 ALT (SGPT) 20 Alkaline Phosphatase 75 Total Protein 7.2 Albumin 3.8 Total Bilirubin 0.5 CBC WITH AUTO DIFFERENTIAL - Abnormal WBC 9.2 RBC 3.60 (*) Hemoglobin 10.1 (*) Hematocrit 31.2 (*) MCV 86.0 MCH 27.8 MCHC 32.4 RDW 17.2 (*) Platelets 187 MPV 9.7 NRBC 0.0 NRBC Absolute 0.00 Neutrophils Relative 66.8 Lymphocytes Relative 24.1 Monocytes Relative 8.4 Eosinophils Relative 0.2 Basophils Relative 0.2 Immature Granulocytes Relative 0.3 Neutrophils Absolute 6.16 Lymphocytes Absolute 2.23 Monocytes Absolute 0.78 Eosinophils Absolute 0.02 Basophils Absolute 0.02 Immature Granulocytes Absolute 0.03 LIPASE - Normal Lipase 29 MAGNESIUM - Normal Magnesium 2.2 TROPONIN I HIGH SENSITIVITY - Normal High Sensitivity Troponin I 46 Narrative: High levels of biotin in samples may falsely decrease hsTroponin values. Use caution when interpreting hsTroponin results in patients taking biotin who exhibit renal impairment (eGFR <60) or in patients taking more than 20 mg/day of biotin. HCG QUALITATIVE, URINE - Normal Preg Test, Ur Negative URINALYSIS WITH REFLEX MICROSCOPIC - Normal Specific [place] Urine 1.009 pH, Urine 5.5 Leukocytes, Urine Negative Nitrite, Urine Negative Protein, Urine Trace Glucose, Urine Negative Ketones, Urine Negative Urobilinogen, Urine 0.2 Bilirubin, Urine Negative Blood, Urine Negative LIPASE - Normal Lipase 23 MAGNESIUM - Normal Magnesium 1.9 PROTHROMBIN TIME WITH INR - Normal Protime 10.6 INR 0.9 LIPASE - Normal Lipase 27 TROPONIN I HIGH SENSITIVITY - Normal High Sensitivity Troponin I 15 Narrative: High levels of biotin in samples may falsely decrease hsTroponin values. Use caution when interpreting hsTroponin results in patients taking biotin who exhibit renal impairment (eGFR <60) or in patients taking more than 20 mg/day of biotin. C-REACTIVE PROTEIN - Normal C-Reactive Protein <0.29 CBC AND DIFFERENTIAL Narrative: The following orders were created for panel order CBC and differential. Procedure Abnormality Status --------- ------ CBC auto differential[[id number]] Abnormal Final result Please view results for these tests on the individual orders. URINALYSIS WITH REFLEX MICROSCOPIC Narrative: The following orders were created for panel order Urinalysis with reflex microscopic. Procedure Abnormality Status --------- ------ Urinalysis with reflex ...[[id number]] Normal Final result Please view results for these tests on the individual orders. CREATININE, URINE, RANDOM Creatinine, Urine 77.0 PROTEIN, URINE, RANDOM Protein, Urine 20 SODIUM, URINE, RANDOM Sodium, Ur 19 CBC AND DIFFERENTIAL Narrative: The following orders were created for panel order CBC and differential. Procedure Abnormality Status --------- ------ CBC auto differential[[id number]] Abnormal Final result Please view results for these tests on the individual orders. CBC AND DIFFERENTIAL Narrative: The following orders were created for panel order CBC and differential. Procedure Abnormality Status --------- ------ CBC auto differential[[id number]] Abnormal Final result Please view results for these tests on the individual orders. TISSUE EXAM Final Diagnosis Value: Stomach, biopsy: Gastric antral and oxyntic-type mucosa with minimal chronic inflammation. No active gastritis and no intestinal metaplasia identified. No Helicobacter pylori identified on hematoxylin and eosin stained sections. Gross Description Value: A. Stomach, biopsies, gastric: Labeled stomach biopsies . Received in formalin are three irregular morley mucosal tissue fragments, ranging from 0.3 cm to 0.6 cm in greatest dimension, which are wrapped in paper and submitted in toto in one cassette, three pieces, multiple levels on one slide. ABDOUL Disclaimer Value: Unless otherwise specified, all tissue is 10% NB formalin fixed and paraffin embedded. Abnormal Labs Reviewed TROPONIN I HIGH SENSITIVITY - Abnormal; Notable for the following components: Result Value High Sensitivity Troponin I 80 (*) All other components within normal limits Narrative: High levels of biotin in samples may falsely decrease hsTroponin values. Use caution when interpreting hsTroponin results in patients taking biotin who exhibit renal impairment (eGFR <60) or in patients taking more than 20 mg/day of biotin. TROPONIN I HIGH SENSITIVITY - Abnormal; Notable for the following components: High Sensitivity Troponin I 61 (*) All other components within normal limits Narrative: High levels of biotin in samples may falsely decrease hsTroponin values. Use caution when interpreting hsTroponin results in patients taking biotin who exhibit renal impairment (eGFR <60) or in patients taking more than 20 mg/day of biotin. COMPREHENSIVE METABOLIC PANEL - Abnormal; Notable for the following components: Sodium 130 (*) Glucose 119 (*) BUN 28 (*) Creatinine 2.82 (*) eGFR 20 (*) Total Protein 9.0 (*) All other components within normal limits B-TYPE NATRIURETIC PEPTIDE - Abnormal; Notable for the following components: BNP 134 (*) All other components within normal limits CBC WITH AUTO DIFFERENTIAL - Abnormal; Notable for the following components: RBC 5.10 (*) RDW 17.5 (*) All other components within normal limits BASIC METABOLIC PANEL - Abnormal; Notable for the following components: Sodium 132 (*) Glucose 101 (*) BUN 33 (*) Creatinine 2.51 (*) eGFR 23 (*) All other components within normal limits BASIC METABOLIC PANEL - Abnormal; Notable for the following components: Glucose 129 (*) BUN 29 (*) Creatinine 1.80 (*) eGFR 35 (*) All other components within normal limits CBC WITH AUTO DIFFERENTIAL - Abnormal; Notable for the following components: RDW 17.0 (*) All other components within normal limits PHOSPHORUS - Abnormal; Notable for the following components: Phosphorus 2.3 (*) All other components within normal limits COMPREHENSIVE METABOLIC PANEL - Abnormal; Notable for the following components: Glucose 106 (*) All other components within normal limits CBC WITH AUTO DIFFERENTIAL - Abnormal; Notable for the following components: RBC 3.60 (*) Hemoglobin 10.1 (*) Hematocrit 31.2 (*) RDW 17.2 (*) All other components within normal limits XR Abdomen 1 View Final Result FINDINGS/IMPRESSION: Postsurgical changes in the left upper quadrant. Nonobstructive bowel gas pattern. Lung bases are clear. Mild lower lumbar facet arthritis. -------- FINAL REPORT -------- Dictated By: URBANO MATTHEWS Dictated Date: 03/17/2024 11:55 ET Assigned Physician: URBANO MATTHEWS Reviewed and Electronically Signed By: URBANO MATTHEWS Signed Date: 03/17/2024 11:56 ET Workstation ID: [id number] Transcribed By: Self Edit Transcribed Date: 03/17/2024 11:55 ET US Retroperitoneal Complete Final Result Impression: 1. Nonobstructive left nephrolithiasis. This document has been electronically signed by: Tristin Mcmillan MD on 03/17/2024 02:34:03 XR Chest 2 Views Final Result FINDINGS/IMPRESSION: Lungs are clear. No pleural effusion or pneumothorax. Cardiac silhouette is normal in size. Dextroconvex thoracic and levoconvex lumbar curvature. No acute displaced fracture. -------- FINAL REPORT -------- Dictated By: URBANO MATTHEWS Dictated Date: 03/16/2024 18:48 ET Assigned Physician: URBANO MATTHEWS Reviewed and Electronically Signed By: URBANO MATTHEWS Signed Date: 03/16/2024 18:49 ET Workstation ID: [id number] Transcribed By: Self Edit Transcribed Date: 03/16/2024 18:48 ET XR Knee 4+ Views Right Final Result FINDINGS/IMPRESSION: No acute fracture or dislocation. Mild medial compartment predominant degenerative change. No joint effusion or focal soft tissue swelling. -------- FINAL REPORT -------- Dictated By: URBANO MATTHEWS Dictated Date: 03/16/2024 18:46 ET Assigned Physician: URBANO MATTHEWS Reviewed and Electronically Signed By: URBANO MATTHEWS Signed Date: 03/16/2024 18:47 ET Workstation ID: [id number] Transcribed By: Self Edit Transcribed Date: 03/16/2024 18:46 ET I have discussed the incidental/abnormal imaging and/or lab abnormalities with the patient and haveinstructed them the need for further evaluation and workup with their primary care doctor. I have provided the patient with a paper copy of the abnormality. The laboratory results, imaging results and other diagnostic exam results were reviewed in the EMR. EKG Interpretation Critical Care Time None ? Medical Decision Making Medications lactated Ringer's infusion (125 mL/hr intravenous Rate/Dose Verify 03/17/24 1330) lactated Ringer's infusion (0 mL/hr intravenous Stopped 03/18/24 0650) lactated Ringer's bolus 2,000 mL (0 mL intravenous Stopped 03/17/24 0812) HYDROmorphone (PF) injection 0.5 mg (0.5 mg intravenous Given 03/16/242002) ondansetron (PF) (ZOFRAN) injection 4 mg (4 mg intravenous Given 03/16/242001) HYDROmorphone (PF) injection 0.5 mg (0.5 mg intravenous Given 03/16/24 2230) HYDROmorphone (PF) (DILAUDID) injection 1 mg (1 mg intravenous Given 03/17/24 0114) dexAMETHasone (DECADRON) injection 4 mg (4 mg intravenous Given 03/17/24 0242) ED Course as of 03/20/242326Mar 16, 20241931 Patient seen and evaluated by my attending. We discussed plan together. Will proceed with 2 bolus liters of LR fluid for hydration, antiemetics, analgesic with close reevaluation and repeat labsto recheck for improvement of suspected hypovolemic related kidney injury. [AT] 1931 Patient has no acute EKG changes and troponins appear to be trending downward and is likely demand related from the kidney injury. She will notify us if she has any return of chest pain. We willrecheck a third troponin. [AT] 1932 High Sensitivity Troponin I(!): 61 [AT] 225 Patient is feeling improved and has received 2 L LR. Repeat labs just drawn and pending. She has received medication for chronic pain that she reports she typically takes outpatient oxycodone for and is stable with no new pain. [AT] 230 Assumed care from previous provider after a detailed discussion regarding patient's case. [id number] evaluation has taken place with no new change in management. Patient is awaiting repeat blood work and final disposition. [MG] Sat Mar 17, 2024 0030 Repeat blood work shows persistent MELANY. Will admit to hospitalist for further care and evaluation. Patient medicated with an additional dose of Dilaudid for continued abdominal pain. Nausea improving after Zofran. [MG] ED Course User Index [AT] JUAN RAMON Rojas [MG] Sade Lutz MD Clinical Impressions as of 03/20/24 2327 Acute kidney injury (CMS/HCC) Cyclic vomiting syndrome History of gastric bypass Cardiac enzymes elevated 48-year-old female with longstanding history of bariatric surgery, presents with acute nausea/vomiting with frequent episodes over the past 12 hours or so. She has some chronic abdominal pain that seems somewhat stable. No specific fevers or other infectious symptoms. Labs reviewed, patient examined, vitals reviewed. Concern is for acute kidney injury. Proceed with bolus LR fluids with repeat labs. Procedures Procedures Diagnosis 1. Acute kidney injury (CMS/HCC) Tissue exam Tissue exam 2. Cyclic vomiting syndrome Tissue exam Tissue exam 3. History of gastric bypass Tissue exam Tissue exam 4. Cardiac enzymes elevated Tissue exam Tissue exam Disposition Observation ED Prescriptions Medication Sig Dispense Start Date End Date Auth. Provider pantoprazole (PROTONIX) 40 mg EC tablet (Status: Discontinued) Take 1 tablet (40 mg total) by mouth2 (two) times a day. Do not crush, chew, or split. 60 each 03/18/2024 03/19/2024 Yesika Kerns MD pantoprazole (PROTONIX) 40 mg EC tablet Take 1 tablet (40 mg total) by mouth 2 (two) times a day. Do not crush, chew, or split. 60 each 03/19/2024 04/18/2024 Yesika Kerns MD Physician Attestation This is a split/shared visit with Anil Louis MD. I personally performed the medical decision making (MDM) for the care of this patient on 03/20/24 as documented below Evaluated, noted rise in troponin as discussed in provider in triage note, but also she has acute kidney injury, my plan with ROSSY is to give her fluids, make her comfortable with pain, and trend her troponin and creatinine, if creatinine is improving and troponin is improving which has been trending down likely if the rise due to an MELANY. If she is not getting better we will plan to admit. Anil Louis MD 03/20/24 11:27 PM EST MD Elva Fisher PA 03/16/24 1921 Anil Louis MD 03/16/24 1936 Anil Louis MD 03/16/24 2316 Anil Louis MD 03/20/24 2327 documented in this encounter H&P Notes * Gabe Coronado MD - 03/17/2024 2:22 AM EST Images from the original note were not included. [facility] HISTORY AND PHYSICAL Please contact author [Gabe Coronado MD] via [email or web address] Patient: Eboni Tatum Admission Date/Time: 03/16/2024 6:41 PM : 1975 [48 y.o.] Patient's PCP: Lisseth Nassar NP Attending Provider: Gabe Coronado MD CHIEF COMPLAINT Nausea, vomiting, abdominal pain HISTORY OF PRESENT ILLNESS Ms. Tatum is a 48 year-old female with history chronic nausea and abdominal pain, multiple bariatric procedures, hypertension, non-ischemic cardiomyopathy LVEF 50-55%, GERD, irritable bowel syndrome,adrenal insufficiency on oral hydrocortisone, anxiety, and opioid dependence secondary to chronic pain who presents to the [facility] Emergency Department with nausea, vomiting, and abdominal pain. The patient was in her usual state of health until the day prior to presentation when she began to have nausea, vomiting and muscle spasms in her legs that evening ~2130. This morning she felt short of breath and began having chest pain. She took 4 baby aspirin and proceeded to the Emergency Department for evaluation. While preparing to leave the house, she tripped on the stairs and struck her right cheney where she continues to have some pain and swelling. Vital signs were unremarkable with exception of borderline tachycardia. The patient was afebrile. Laboratories were personally reviewed. CBC was unremarkable. Chemistries revealed mild hyponatremia with a sodium of 130 mmol/L and acute renal failure with a creatinine of 2.82 mg/dL up from her baseline of 0.8-1 milligram per deciliter. BNP was minimally elevated 134 pg/mL serial troponins were initially elevated but declining from 80 pg/mL to 61 pg/L to 46 pg/mL. Chest x-ray was personally reviewed and was without acute cardiopulmonary disease. X-ray of the right knee was without osseous abnormality. ECG was personally reviewed and revealed normal sinus rhythm with a prolonged QT interval. The patient was administered 2 L of crystalloid, ondansetron, and multiple doses of hydromorphone. Repeat chemistries demonstrated minimal improvement in the patient's creatinine to 0.51 mg/dL. The hospitalist service was consulted for admission. On evaluation, the patient is feeling somewhat better with hydration. She is now tolerating small amounts of ice chips. She reports her abdominal pain is currently her usual chronic abdominal pain. She denies any new abdominal symptoms. She is unsure whether she is passing flatus. She reports that she has irritable bowel syndrome and has not moved her bowels in the past 4 days. She denies any current chest pain. She has urinated twice since arrival to the emergency department. She has not notedany change in character to her urine. She is followed by a size cutter, Dr. Serge Murillo in [place]. She avoids NSAIDs due to her gastric bypass. She has has acute injury to her kidneys due to volume depletion from nausea and vomiting and has typically resolved rapidly with volume resuscitation. 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 She lives with her daughter and is independent for ambulation at baseline. Functional status prior to presentation: Independent Review of Systems Constitutional - Denies fevers or chills. Denies unintended weight loss or gain. HEENT - Denies headache, vision changes, tinnitus, hearing loss, vocal hoarseness Respiratory - Denies shortness of breath, cough, wheezing, pleurisy Cardiovascular - Reports chest pain, now resolved. Denies palpitations, orthopnea, paroxysmal nocturnal dyspnea, lower extremity edema Gastrointestinal - Reports nausea, vomiting, chronic abdominal pain. Denies diarrhea, melena, hematochezia - Denies dysuria, hematuria, incontinence Musculoskeletal - Reports pain in right tibia, chronic left knee pain. Skin - Reports wound on right cheney Neurological - Denies focal weakness, numbness, or paresthesias Endocrine - Denies polydipsia, polyuria, heat or cold intolerance Hematological - Denies easy bruising or history of bleeding diathesis MEDICAL HISTORY Past Medical History Past Medical History: Diagnosis Date Anxiety DX:Anxiety Chronic abdominal pain Depression DX:Depression GERD (gastroesophageal reflux disease) HTN (hypertension) DX:HTN (hypertension) Irritable bowel syndrome Non-ischemic cardiomyopathy (CMS/HCC) Opioid type dependence, continuous (CMS/HCC) Past Surgical History Past Surgical History: Procedure Laterality Date BREAST REDUCTION PROCEDURE: TX BREAST REDUCTION SECTION, LOW TRANSVERSE GASTRIC BYPASS 01/29/2022 Conversion of sleeve gastrectomy to vazquez-en-[id number] gastric bypass HIATAL HERNIA REPAIR 06/05/2021 LAPAROSCOPIC GASTRIC BANDING PROCEDURE: LAP ADJUSTABLE GASTRIC BAND SLEEVE GASTROPLASTY 2016 Converted from lap band TOTAL KNEE ARTHROPLASTY Left Social History The patient reports that she has never smoked. She has never used smokeless tobacco. She reports current alcohol use of about 0.8 standard drinks of alcohol per week. She reports current drug use. Drug: Marijuana/Cannabis. Family History The patient's family history includes Diabetes in her mother; Heart disease in her mother; Lung cancer in her father. Allergies The patient is allergic to sulfamethoxazole-trimethoprim, fentanyl, nsaids (non- steroidal anti-inflammatory drug), sertraline, haloperidol, morphine, and sulfa (sulfonamide antibiotics). Home Medications No current facility-administered medications on file prior to encounter. Current Outpatient Medications on File Prior to Encounter Medication Sig Dispense Refill estradioL (ESTRACE) 0.01 % (0.1 mg/gram) vaginal cream Insert 1 g into the vagina 3 (three) times aweek. hydrocortisone (CORTEF) 5 mg tablet Take 1-2 tablets (5-10 mg total) by mouth 2 (two) times a day. TAKE 2 TABLETS AT 8 AM AND TAKE 1 TABLET 6PM nortriptyline (PAMELOR) 25 mg capsule Take 2 capsules (50 mg total) by mouth 1 (one) time each day. oxyCODONE (ROXICODONE) 15 mg immediate release tablet Take 1 tablet (15 mg total) by mouth every 8 (eight) hours if needed. Max Daily Amount: 45 mg scopolamine (TRANSDERM-SCOP) 1 mg over 3 days patch 3 day Apply 1 patch topically every 3rd (third)day. spironolactone (ALDACTONE) 25 mg tablet Take 0.5 tablets (12.5 mg total) by mouth 1 (one) time eachday. Xtampza ER 18 mg capsule,sprinkle,ER 12hr tmprr Take 54 mg by mouth 2 (two) times a day. Max Daily Amount: 108 mg zolpidem (AMBIEN) 5 mg tablet Take 1 tablet (5 mg total) by mouth at bedtime as needed for sleep. Max Daily Amount: 5 mg carvediloL (COREG) 12.5 mg tablet Take 1 tablet (12.5 mg total) by mouth 2 (two) times a day. clonazePAM (KlonoPIN) 1 mg tablet Take 1 tablet (1 mg total) by mouth 3 (three) times a day if needed for anxiety. Max Daily Amount: 3 mg fesoterodine 4 mg tablet extended release 24 hr Take 1 tablet by mouth 1 (one) time each day. hydrOXYzine pamoate (VISTARIL) 25 mg capsule Take 1 capsule (25 mg total) by mouth at bedtime. QUEtiapine (SEROquel) 100 mg tablet Take 1 tablet (100 mg total) by mouth at bedtime. tamsulosin (FLOMAX) 0.4 mg 24 hr capsule Take 1 capsule (0.4 mg total) by mouth at bedtime. OBJECTIVE Vitals Visit Vitals BP 102/78 (BP Location: Left arm, Patient Position: Lying) Pulse 79 Temp 36.8 ??C (98.2 ??F) (Oral) Resp 18 Temp (24hrs), Av.9 ??C (98.5 ??F), Min:36.8 ??C (98.2 ??F), Max:37.1 ??C (98.8 ??F) Body mass index is 23.43 kg/m??. No results found for: PTWT , PTHT Physical Examination General: Non-toxic appearing, talking in complete sentences, in no acute distress HEENT: Normocephalic, atraumatic. Pupils equal, round, reactive to light. Extra- ocular muscles intact. Sclera anicteric without injection. Conjunctivae pink, moist. Oropharyngeal exam deferred. Neck: Supple. No cervical and supraclavicular lymphadenopathy. No thyromegaly. Chest: Lungs clear to auscultation bilaterally. No wheezes, rales, or rhonchi. Normal excursion. Cardiovascular: Regular, rate, and rhythm. No murmurs, rubs, or gallops. JVP is 7 cm. No bruits. 2+distal pulses. Abdomen: Soft, non-distended. Tender to palpation primarily in left upper quadrant and epigastric region without guarding or rebound. Normoactive bowel sounds. No hepatosplenomegaly. No masses. Skin: Contusion on upper right pretibial skin. Extremities: Warm, well perfused. No clubbing, cyanosis, or edema. Neuro: Alert and oriented x3. Cranial nerves II-XII grossly intact. 5/5 strength upper and lower extremities bilaterally. Sensation grossly intact. ECG: Was ECG Performed? Yes . Sinus Rhythm? Yes. Signs of acute ischemia? No Further Interpretation: Normal sinus rhythm, prolonged QT interval. LAB RESULTS (most recent) HEMATOLOGY Lab Results Component Value Date WBC 8.8 03/16/2024 HGB 14.1 03/16/2024 HCT 41.8 03/16/2024 MCV 82.6 03/16/2024 PLT 228 03/16/2024 CHEMISTRY Lab Results Component Value Date GLUCOSE 101 (H) 03/16/2024 NA 132 (L) 03/16/2024 K 3.9 03/16/2024 CO2 27 03/16/2024 CL 99 03/16/2024 BUN 33 (H) 03/16/2024 CREATININE 2.51 (H) 03/16/2024 EGFR 23 (L) 03/16/2024 CALCIUM 9.2 03/16/2024 MG 2.2 03/16/2024 ANIONGAP 6 03/16/2024 Radiology XR Chest 2 Views Final Result FINDINGS/IMPRESSION: Lungs are clear. No pleural effusion or pneumothorax. Cardiac silhouette is normal in size. Dextroconvex thoracic and levoconvex lumbar curvature. No acute displaced fracture. -------- FINAL REPORT -------- Dictated By: URBANO MATTHEWS Dictated Date: 03/16/2024 18:48 ET Assigned Physician: URBANO MATTHEWS Reviewed and Electronically Signed By: URBANO MATTHEWS Signed Date: 03/16/2024 18:49 ET Workstation ID: [id number] Transcribed By: Self Edit Transcribed Date: 03/16/2024 18:48 ET XR Knee 4+ Views Right Final Result FINDINGS/IMPRESSION: No acute fracture or dislocation. Mild medial compartment predominant degenerative change. No joint effusion or focal soft tissue swelling. -------- FINAL REPORT -------- Dictated By: URBANO MATTHEWS Dictated Date: 03/16/2024 18:46 ET Assigned Physician: URBANO MATTHEWS Reviewed and Electronically Signed By: URBANO MATTHEWS Signed Date: 03/16/2024 18:47 ET Workstation ID: [id number] Transcribed By: Self Edit Transcribed Date: 03/16/2024 18:46 ET US Retroperitoneal Complete (Results Pending) ASSESSMENT & PLAN 48 year-old female with history chronic nausea and abdominal pain, multiple bariatric procedures, hypertension, non-ischemic cardiomyopathy LVEF 50-55%, GERD, irritable bowel syndrome, adrenal insufficiency on oral hydrocortisone, anxiety, and opioid dependence secondary to chronic pain presents with acute renal failure, nausea/vomiting, and elevated troponin. Acute renal failure- After discussion with the ER provider, the patient will be placed in observation. The patient has had a significant rise in her creatinine to 2.8 mg/dL from her baseline of 0.8-1 mg/dL, possibly secondary to volume depletion from nausea and vomiting in the setting of diuretic use. The patient does not take NSAIDs. Renal ultrasound does not show evidence of obstruction. She is on the low-dose diuretic, spironolactone 12.5 mg daily, which will be held. We will check urine studies to aid in further elucidating the etiology of her renal failure while we continue to fluid resuscitate her. We will follow her renal function expectantly and replace electrolytes as needed. Nausea and vomiting- The patient has had recurrent nausea and vomiting secondary to her multiple abdominal surgeries. She has last admission to the hospital due to nausea and vomiting was over 3 months ago. We will continue antiemetic therapy. An abdominal x-ray has been ordered to rule out obstruction. She has been given a dose of IV dexamethasone show to her adrenal insufficiency be playing a role in her nausea. She is currently tolerating ice chips and her diet will be advanced as tolerated. Adrenal insufficiency- The patient has been given a dose of dexamethasone as she has not had to take her oral medications.We will resume her hydrocortisone 10 mg in the morning and 5 mg in the evening. She is scheduled tohave an outpatient MRI to evaluate her pituitary for a cause of her adrenal insufficiency. If negative, I suspect her current insufficiency secondary to chronic opioid treatment. Elevated troponin- The patient is a known nonischemic cardiomyopathy, believed likely to be Takotsubo's cardiomyopathy. She most recently underwent cardiac catheterization in 08/2023 which demonstrated clean coronary arteries. Her troponin has normalized and she is currently chest pain-free. We will continue her on car vedilol 12.5 mg twice daily. Opioid dependence secondary to chronic pain- We will continue her on her home dose of oxycodone 15 mg as needed for pain. She will have IV hydromorphone available for severe pain or if she is unable to tolerate oral medications. At this time she does not feel she needs to take her long-acting oxycodone and the medication will be placed on hold. Anxiety- Continue nortriptyline 50 mg daily, quetiapine 100 mg nightly, hydroxyzine 25 mg nightly, and clonazepam 1 mg every 8 hours as needed. Prophylaxis- Enoxaparin for DVT prophylaxis. CODE STATUS- FULL CODE. The patient's daughter, Dina Cooper [phone], and her sister, Karina Koehler [phone], are her medical decision-maker in the event she is unable to decisions for herself. Over 70 minutes were spent in initial evaluation and coordination of care for this patient. documented in this encounter Procedure Notes * Torrie Davison RN - 03/19/2024 12:42 PM EST REPORT GIVEN TO ARMAAN ON FLOOR. PT DORA DAVIS documented in this encounter Consult Notes * Mala Brandy, RD - 03/19/2024 11:15 AM ESTAssociated Order(s): IP CONSULT TO NUTRITION SERVICES 03/19/2024 @ 11:43 AM EST Nutrition Consult Note/Nutrition Assessment Reason for RD Intervention: Assessment Type: RN Consult Reason for Assessment: High MST Score Anthropometrics: Height: 166.4 cm (65.5 ) Weight: 64.9 kg (143 lb) (per EPIC record) Weight Method: Stated BMI (Calculated): 23.4 BMI Class: Normal UBW (lbs): (138-142 recently per pt report. pt states weight was 220 lbs in May after knee surgery. Per EPIC records weigth was 164 lbs 02/2023, 153 lbs 03/2023, 161 lbs 05/2023, possible 11.2% loss over 10 months.) Current Diet and Supplements: Dietary Orders (From admission, onward) Start Ordered 03/19/24 0001 Adult NPO diet Location: [facility]; Diet: NPO- Except for Medications Diet effective now Question Answer Comment Location [facility] Diet NPO- Except for Medications 03/18/24 1506 History of presenting illness: Patient is a 48 y.o. female with a history of Past Medical History: Diagnosis Date Anxiety DX:Anxiety Chronic abdominal pain Depression DX:Depression GERD (gastroesophageal reflux disease) HTN (hypertension) DX:HTN (hypertension) Irritable bowel syndrome Non-ischemic cardiomyopathy (CMS/HCC) Opioid type dependence, continuous (CMS/HCC) Past Surgical History: Procedure Laterality Date BREAST REDUCTION PROCEDURE: TX BREAST REDUCTION SECTION, LOW TRANSVERSE GASTRIC BYPASS 01/29/2022 Conversion of sleeve gastrectomy to vazquez-en-Y gastric bypass HIATAL HERNIA REPAIR 06/05/2021 LAPAROSCOPIC GASTRIC BANDING PROCEDURE: LAP ADJUSTABLE GASTRIC BAND SLEEVE GASTROPLASTY 2016 Converted from lap band TOTAL KNEE ARTHROPLASTY Left admitted 03/16/2024 with Acute renal failure (CMS/HCC). Food/Nutrition History: Previous Diet / Nutrition Education / Counseling: Pt had previous lap band, gastric sleeve, then gastric bypass. 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 Reports that she had been taking a gummy vitamin, now she is aware her thiamine level is low and she plans to order the bariatric vitamin patch. She chooses healthful foods in small amounts, sometimes blederized fruits, uses protein powder. Finds if she has too much of a food, itcauses diarrhea. Prefers oat milk and consumes herbal tea throughout the day. Does better wihth liquids over solids. Oral intake has been 50% of usual since knee surgery in May with significant weight loss. Pt avoids rice and breads. Appetite KNITTED CLOTH EXAMINER: Fair Intake KNITTED CLOTH EXAMINER: Decreased Vitamins/Minerals/Herbs: had not been taking consistently, dislikes large bariatric chewable vitamin, plans to get a vitamin patch Weight History: Wt Readings from Last 10 Encounters: 03/19/24 64.9 kg (143 lb) 06/09/23 73 kg (161 lb 0.3 oz) 04/11/23 69.4 kg (153 lb) 02/14/23 74.4 kg (164 lb) 01/04/23 76.2 kg (168 lb 1.3 oz) 09/30/22 73.5 kg (162 lb 1.3 oz) 02/15/22 88 kg (194 lb) 11/05/21 90.7 kg (200 lb) 09/22/21 90.7 kg (200 lb) 09/08/21 86.2 kg (190 lb) Subjective Assessment: Pt presents with nausea and vomiting. Scope planned. Pt had MELANY on admission, resolved. Per GI, cyclic vomiting syndrome, avoid cannabis. Phosphorus below normal yesterday. Note urine ketones negative. Nutrition-Related Lab Values: Results from last 7 days Lab Units 03/18/24 0624 SODIUM mmol/L 136 POTASSIUM mmol/L 4.3 PHOSPHORUS mg/dL 2.3* MAGNESIUM mg/dL 1.9 CHLORIDE mmol/L 103 CO2 mmol/L 29 BUN mg/dL 15 CREATININE mg/dL 1.00 EGFR mL/min/1.73m2 70 CALCIUM mg/dL 9.0 BILIRUBIN TOTAL mg/dL 0.5 ALK PHOS unit/L 75 ALT unit/L 20 AST unit/L 12 GLUCOSE mg/dL 106* WBC AUTO K/mcL 9.2 Lab Results Component Value Date LIPASE 27 03/18/2024 Medications: carvediloL, 12.5 mg, oral, BID with meals enoxaparin, 30 mg, subcutaneous, q24h SILVINA hydrocortisone, 10 mg, oral, Daily And hydrocortisone, 5 mg, oral, Daily hydrOXYzine pamoate, 25 mg, oral, Nightly nortriptyline, 50 mg, oral, Daily oxyBUTYnin, 2.5 mg, oral, BID [Held by provider] oxyCODONE, 50 mg, oral, q12h SILVINA pantoprazole, 40 mg, intravenous, q12h SILVINA polyethylene glycol, 17 g, oral, Daily QUEtiapine, 100 mg, oral, Nightly scopolamine, 1 patch, Topical, q72h sodium chloride, 10 mL, intravenous, BID sucralfate, 1 g, oral, Before meals & nightly tamsulosin, 0.4 mg, oral, Nightly PRN medications: acetaminophen, clonazePAM, docusate sodium, HYDROmorphone, HYDROmorphone, ondansetron (ZOFRAN-ODT) disintegrating tablet OR ondansetron, oxyCODONE, prochlorperazine OR prochlorperazine OR prochlorperazine, Insert peripheral IV AND Maintain IV access AND Saline lock IV AND sodium chloride AND sodium chloride Food/Nutrition-Current Status: Intake Type: P.O. Current Diet Status: Other (Comment) (currently NPO) Appetite: Other (Comment) (limited data, pt has been on clears, breifly on solids, now NPO) Main IVF: None Nutrition Focused Physical Findings: Overall Appearance: comfortable, moving about the room at times. Pt reports her daughter provides just over 100 hours of care for her at home. She reports that she walks with a cane. Digestive System (Mouth to Rectum): Appetite change, Other (Comment), Diarrhea (reports appetite changed significantly in May.) Nerves and Cognition: Alert, Oriented Skin: Pt has loose skin status post dramatic weight loss from gastric surgery. Skin is intact. Fluid Accumulation/Edema: Other (Comment) (none observed) Loss of Fat Location: Orbital, Buccal, Triceps, Ribs Loss of Fat Amt-Orbital: Mild Loss of Fat Amt-Buccal: Moderate Loss of Fat Amt-Triceps: No Losses Loss of Fat Amt-Ribs: Mild Loss of Muscle Location: Temples, Clavicle, Shoulders, Interosseous, Scapula, Thigh, Calf Loss of Muscle Amt-Temples: No Losses Loss of Muscle Amt-Clavicle: Mild Loss of Muscle Amt-Shoulders: Mild Loss of Muscle Amt-Inter Musc: No Losses Loss of Muscle Amt-Scapula: No Losses Loss of Muscle Amt-Thigh: No Losses Loss of Muscle Amt-Calf: No Losses Nutrition Diagnosis: Code Type: Moderate-Acute (E44.0) Moderate-Acute Criteria: Energy Intake <75%/7days, Mild Body Fat Depletion, Mild Muscle Mass Depletion Diagnosis: Altered GI Function Etiology: Decreased or compromised function of intestine Symptoms: as evidenced by nausea and vomiting, IBS with diarrhea at baseline, history of gastric bypass Additional Nutrition Diagnosis?: Yes Diagnosis: Inadequate Oral Intake Etiology: Changes in taste and appetite or preference Symptoms: as evidenced by pt report of reduced appetite since knee surgery in May at 50% of usual Nutrition Interventions: Diet Order, Vitamin/Mineral Supplement -Chewable oral vitamin not available at [facility], consider banana bag as pt reports her thiamine levels were low. Suggest continue to monitor lytes, phosphorus and magnesium. -discussed ways to improve tolerance of oral diet, monitoring of micronutrient status after gastricbypass Meals/Snacks: Between Meals/Snacks (suggest 6 small meals when diet resumes), 75 gm carbohydrate, low caffeine, consider low lactose as needed. High protein snacks such as Kosovan yogurt. Goals: Patient will initially consume at least 50% of meals. , Electrolytes within normal range., Minimizerisk of refeeding syndrome., Maintain weight., Stooling appropriately., Maintain skin integrity., and Patient/family demonstrates understanding of diet education provided. Monitoring/Evaluation: Energy Intake, Weight, Gastrointestinal Profile Follow Up: Nutrition Priority Level: Moderate Please consult nutrition if needed sooner. Nutritional Discharge Recommendations: Additional Information: Small frequent meals with protein (lean meats, yogurts, eggs, small amountsof nut butters), protein powders or low sugar protein shakes. Consider changing the texture or cooking methods of your foods to increase digestion and absorption (avoid large portions of raw fruits and vegetables, consider blending, try softer cooked meats and vegetables). If you have difficulty maintaining your weight, as tolerated, add small amounts of healthful fats such as olive oil, to boostcalories, or add a small amount of smooth nut butter to a smoothie. Follow up with your provider onvitamin and mineral levels. You are at risk of reduced values for vitamins D, B12, folate, thiamine, B2 and B6 as well as calcium, iron, zinc and copper. Consider seeing a dietitian as an outpatient to see if further diet modifications may be helpful, such as a FODPMAP food choices for IBS. Your doctor can refer you to an outpatient RD.Small frequent meals with protein (lean meats, yogurts, eggs,small amounts of nut butters), protein powders or low sugar protein shakes. Consider changing the texture or cooking methods of your foods to increase digestion and absorption (avoid large portions of raw fruits and vegetables, consider blending, try softer cooked meats and vegetables). If you havedifficulty maintaining your weight, as tolerated, add small amounts of healthful fats such as oliveoil, to boost calories, or add a small amount of smooth nut butter to a smoothie. Follow up with your provider on vitamin and mineral levels. You are at risk of reduced values for vitamins D, B12, folate, thiamine, B2 and B6 as well as calcium, iron, zinc and copper. RD remains available and will continue to follow. Signature: Mala Nava RD * Jesse Saenz DO - 03/18/2024 2:00 PM ESTAssociated Order(s): IP CONSULT TO GASTROENTEROLOGY INITIAL GI CONSULT CONSULTING PROVIDER: Gabe Coronado MD REASON FOR CONSULT: N/V/pain HPI: 48-year-old female who I am asked to see for evaluation of chronic nausea and vomiting. The patient has a background history of gastric bypass surgery in 2021, prior lap band surgery, prior sleeve gastrectomy, laparoscopic hiatal hernia repair, GERD, breast reduction surgery, social EtOH use, former obesity, lysis of adhesions surgery, osteoarthritis, knee replacement, nonischemic HFpEF 50-55% documented IBS, adrenal insufficiency on chronic hydrocortisone, anxiety, depression, asthma, chronic abdominal pain, opioid dependence, cannabis use. The patient presented to [facility] ED for evaluation of chronic nausea, vomiting and abdominal pain. Of note, the patient has a several year history of the exact same symptoms. This time around, the patient reports worsening of her chronic abdominal pain hours prior to presentation. The pain is describedas severe and associated with nausea, nonbloody emesis and muscle spasms with some degree of atypical chest pain and shortness of breath. The patient took 4 low-dose ASA and came into the ED for evaluation. On presentation to the ED she was found to have mild tachycardia but otherwise she was nontoxic-appearing, euvolemic and hemodynamically stable. BMP with an MELANY and mild hyponatremia. Elevated troponin and BNP. Unremarkable CBC. Abdominal x-ray without obstructive gas pattern. The patient was given antiemetic and antireflux therapy. A GI consult was requested. Of note, this patient has a very significant history of recurrent nausea, vomiting and abdominal pain. She has seen a few local GI doctors and she has been hospitalized a few times for the exact samesymptom. After a thorough chart review I see that over the past 24 months she has undergone 6 CT scans of the A/P, 3 CT scans of the chest, 1 HIDA scan, 1 CT of the brain, multiple chest and abdominal x-rays without significant or acute findings to explain her symptoms. ROS: GENERAL: No fever, weight loss, weakness. HEENT: No double vision, blurred vision, sorethroat, nasal discharge, nosebleeds. NECK: No pain, swelling, rashes. RESPIRATORY: No cough, wheezing or shortness of breath CARDIOVASCULAR: No chest pain, leg swelling or palpitations GI:As per HPI section MUSCULOSKELETAL: No joint pain or swelling, back pain. No unexplained myalgias. SKIN: No lesions, rash or itching. The rest of the ROS is negative except as mentioned in the HPI section. PAST MEDICAL HISTORY: Patient Active Problem List Diagnosis Acute renal failure (CMS/HCC) Acute kidney injury (CMS/HCC) PAST SURGICAL HISTORY: Past Surgical History: Procedure Laterality Date BREAST REDUCTION PROCEDURE: TX BREAST REDUCTION SECTION, LOW TRANSVERSE GASTRIC BYPASS 01/29/2022 Conversion of sleeve gastrectomy to vazquez-en-Y gastric bypass HIATAL HERNIA REPAIR 06/05/2021 LAPAROSCOPIC GASTRIC BANDING PROCEDURE: LAP ADJUSTABLE GASTRIC BAND SLEEVE GASTROPLASTY 2016 Converted from lap band TOTAL KNEE ARTHROPLASTY Left SOCIAL HISTORY: Social History Tobacco Use Smoking status: Never Smokeless tobacco: Never Substance Use Topics Alcohol use: Yes Alcohol/week: 0.8 standard drinks of alcohol Drug use: Yes Types: Marijuana/Cannabis Comment: CBG/THC drops FAMILY HISTORY: Family History Problem Relation Name Age of Onset Diabetes Mother Heart disease Mother Lung cancer Father MEDICATIONS: Outpatient Medications Marked as Taking for the 03/16/24 encounter (Hospital Encounter) Medication Sig Dispense Refill estradioL (ESTRACE) 0.01 % (0.1 mg/gram) vaginal cream Insert 1 g into the vagina 3 (three) times aweek. hydrocortisone (CORTEF) 5 mg tablet Take 1-2 tablets (5-10 mg total) by mouth 2 (two) times a day. TAKE 2 TABLETS AT 8 AM AND TAKE 1 TABLET 6PM nortriptyline (PAMELOR) 25 mg capsule Take 2 capsules (50 mg total) by mouth 1 (one) time each day. oxyCODONE (ROXICODONE) 15 mg immediate release tablet Take 1 tablet (15 mg total) by mouth every 8 (eight) hours if needed. Max Daily Amount: 45 mg scopolamine (TRANSDERM-SCOP) 1 mg over 3 days patch 3 day Apply 1 patch topically every 3rd (third)day. spironolactone (ALDACTONE) 25 mg tablet Take 0.5 tablets (12.5 mg total) by mouth 1 (one) time eachday. Xtampza ER 18 mg capsule,sprinkle,ER 12hr tmprr Take 54 mg by mouth 2 (two) times a day. Max Daily Amount: 108 mg zolpidem (AMBIEN) 5 mg tablet Take 1 tablet (5 mg total) by mouth at bedtime as needed for sleep. Max Daily Amount: 5 mg ALLERGIES: Allergies Allergen Reactions Sulfamethoxazole-Trimethoprim Rash Fentanyl Other and Fainting Nsaids (Non-Steroidal Anti-Inflammatory Drug) Other GI bleeding Sertraline Other Other Reaction(s): QT wave change interferes withQT waves of heart changed my QT interval has a drum drier operator changed my QT interval has a drum drier operator Haloperidol Anxiety Other Reaction(s): Feeling Irritable Morphine Redness around the site Sulfa (Sulfonamide Antibiotics) Rash PHYSICAL EXAM: Visit Vitals BP (!) 131/90 (BP Location: Right arm;Upper, Patient Position: Sitting) Pulse 65 Temp 36.6 ??C (97.9 ??F) (Oral) Resp 18 Ht 1.664 m (65.5 ) Wt 64.9 kg (143 lb) SpO2 100% BMI 23.43 kg/m?? Smoking Status Never BSA 1.73 m?? The patient was found at her roommates side of the room chatting. She was asked to come over to herside of the room where she stood by the bed during my evaluation. APPEARANCE: No distress. Non-toxic appearing. HEART: RRR with normal S1 and S2, no murmurs appreciated LUNG: CTA on anterior exam. Not on supplemental O2. ABDOMEN: Soft skin from weight loss, no masses, no palpable hernias, surgical scars. RECTAL: Exam deferred EXTREMITIES: No edema. NEURO: AOx3. No focal weaknesses. SKIN: Excoriations from scratching in the lumbar back. LABS: Lab Results Component Value Date WBC 9.2 03/18/2024 HGB 10.1 (L) 03/18/2024 HCT 31.2 (L) 03/18/2024 MCV 86.0 03/18/2024 PLT 187 03/18/2024 Lab Results Component Value Date ALT 20 03/18/2024 AST 12 03/18/2024 ALKPHOS 75 03/18/2024 BILITOT 0.5 03/18/2024 Lab Results Component Value Date NA 136 03/18/2024 K 4.3 03/18/2024 CL 103 03/18/2024 CO2 29 03/18/2024 GLUCOSE 106 (H) 03/18/2024 BUN 15 03/18/2024 CREATININE 1.00 03/18/2024 CALCIUM 9.0 03/18/2024 PROT 7.2 03/18/2024 ALBUMIN 3.8 03/18/2024 BILITOT 0.5 03/18/2024 AST 12 03/18/2024 ALT 20 03/18/2024 PHOS 2.3 (L) 03/18/2024 MG 1.9 03/18/2024 ALKPHOS 75 03/18/2024 EGFR 70 03/18/2024 Lab Results Component Value Date LIPASE 27 03/18/2024 IMAGING: Abdominal CXR independently reviewed. There is no obstructive gas pattern. IMPRESSION: 1. Acute kidney injury (CMS/HCC) 2. Cyclic vomiting syndrome 3. History of gastric bypass 4. Cardiac enzymes elevated PLAN: The patient is hemodynamically stable without signs of an acute abdomen or evidence of acute intestinal obstruction. Her abdominal x-ray does not show evidence of obstructive pattern in the stomach, small bowel or colon. Her abdominal pain associated with nausea and vomiting is most likely multifactorial in the settingof postsurgical pain, functional pain, active reflux (as seen by Dr. Patino EGD). A component of cannabinoid hyperemesis syndrome must also be considered. Her 08/2021 HIDA scan did not show evidence of remnant gastropathy. Her previous imaging studies didnot show evidence of candy cane syndrome or afferent/efferent loop syndrome. I do recommend proceeding with an upper endoscopy to rule out a marginal ulcer given her known acidreflux disease. If bile reflux in the gastric remnant, empiric treatment for primary gastropathy will be recommended given her ongoing symptoms. Complete cannabis cessation is absolutely recommended. Oral PPI twice daily. High-protein, low-fat, low carbohydrate diet and small portions. Her presentation is not suggestive of acute intermittent porphyria, hereditary angioedema, etc. MELANY and electrolyte disturbances as per primary team. Orders Placed This Encounter Procedures XR Chest 2 Views XR Knee 4+ Views Right US Retroperitoneal Complete XR Abdomen 1 View Troponin I high sensitivity CBC and differential Comprehensive metabolic panel Lipase Magnesium B-type natriuretic peptide CBC auto differential Basic metabolic panel Troponin I high sensitivity Basic metabolic panel CBC and differential Creatinine, urine, random Protein, urine, random Sodium, urine, random Urinalysis with reflex microscopic HCG qualitative, urine Urinalysis with reflex microscopic CBC auto differential Magnesium Phosphorus Prothrombin time with INR CBC and differential Comprehensive metabolic panel Lipase Lipase Troponin I high sensitivity C-reactive protein CBC auto differential Adult diet [facility]; [facility] Consistency Options for Liquids and Solids; Clear Liquid; Self-Select Meals ACTIVITY As tolerated Vital Signs (specify frequency) Notify physician - vital signs Intake and output Maintain IV access Strict intake and output Strict intake and output Strict intake and output Full code - Default Inpatient consult to Nutrition Services Inpatient consult to Gastroenterology ECG 12 lead ECG 12 lead PRN ECG 12 lead ECG 12 lead ECG 12 lead Insert peripheral IV Saline lock IV Initiate observation status Admit to Inpatient ED to floor bed request Discharge patient XR CHEST 2 VIEWS XR KNEE 4+ VIEWS RIGHT US RETROPERITONEAL COMPLETE XR ABDOMEN 1 VIEW ED TO FLOOR BED REQUEST INITIATE OBSERVATION STATUS ADMIT TO INPATIENT FULL CODE DEFAULT ACTIVITY VITAL SIGNS NOTIFY PROVIDER - VITAL SIGNS INTAKE AND OUTPUT MAINTAIN IV ACCESS STRICT INTAKE AND OUTPUT STRICT INTAKE AND OUTPUT STRICT INTAKE AND OUTPUT INSERT PERIPHERAL IV SALINE LOCK IV IP CONSULT TO NUTRITION SERVICES IP CONSULT TO GASTROENTEROLOGY ADULT DIET DISCHARGE PATIENT . Signatures Board Certified, Gastroenterology and Internal Medicine Gastroenterology [facility] Hepatology Practice [facility] [email or web address] [phone] [place] [address] [email or web address] in this encounter Plan of Treatment Not on file documented as of this encounter Procedures Procedure Name Priority Date/Time Associated Diagnosis [...] AUTO DIFFERENTIAL Routine 03/18/2024 6:24 AM EST CBC AND DIFFERENTIAL Routine 03/18/2024 6:24 AM EST C-REACTIVE PROTEIN Routine 03/18/2024 6: 24 AM EST PHOSPHORUS Routine 03/18/2024 6:24 AM EST MAGNESIUM Routine 03/18/2024 6:24 AM EST LIPASE Routine 03/18/2024 6:24 AM EST COMPREHENSIVE METABOLIC PANEL Routine 03/18/2024 6:24 AM EST ECG 12-LEAD Routine 03/18/2024 6:00 AM EST ECG 12-LEAD Routine 03/17/2024 5:12 PM EST XR ABDOMEN 1 VIEW STAT 03/17/2024 11: 44 AM EST CBC WITH AUTO DIFFERENTIAL Routine 03/17/2024 5:34 AM EST CBC AND DIFFERENTIAL Routine 03/17/2024 5:34 AM EST LIPASE Add-On 03/17/2024 5:34 AM EST BASIC METABOLIC PANEL Routine 03/17/2024 5:34 AM EST URINALYSIS WITH REFLEX MICROSCOPIC STAT 03/17/2024 4:06 AM EST URINALYSIS WITH REFLEX MICROSCOPIC STAT 03/17/2024 4:06 AM EST SODIUM, URINE, RANDOM STAT 03/17/2024 4:06 AM EST PROTEIN, URINE, RANDOM STAT 4:06 AM EST HCG QUALITATIVE, URINE STAT 4:06 AM EST CREATININE, URINE, RANDOM STAT 03/17/2024 4:06 AM EST US RETROPERITONEAL [...] HIGH SENSITIVITY STAT 03/16/2024 6:22 PM EST TROPONIN I HIGH SENSITIVITY STAT 03/16/2024 2:59 PM EST CBC WITH AUTO DIFFERENTIAL STAT 03/16/2024 2:59 PM EST CBC AND DIFFERENTIAL STAT 03/16/2024 2:59 PM EST B-TYPE NATRIURETIC PEPTIDE STAT 03/16/2024 2:59 PM EST MAGNESIUM STAT 03/16/2024 2:59 PM EST LIPASE STAT 03/16/2024 2:59 PM EST COMPREHENSIVE METABOLIC PANEL STAT 03/16/2024 2:59 PM EST ECG 12-LEAD STAT 03/16/2024 1:37 PM EST documented in this encounter Results * EGD Anesthesia - MAC; [facility] ENDOSCOPY (03/19/2024 12:19 PM EST) Anatomical Region Laterality Modality Endoscopy 03/19/2024 12:0 4 PM EST Impressions 03/19/2024 12:21 PM EST - Normal esophagus. ? - Normal examined jejunum. ? - Gastric bypass. ? - Erythematous mucosa in the stomach. Biopsied. Clip ? was placed. Clip metal neutralizer: [employer]. Recommendation: ?- Discharge patient to home. ? - Resume previous diet. ? - Continue present medications. ? - Await pathology results. ? - Bleeding from gastric biopsy site treated with an ? endoclip as the bleeding would not stop spontaneously. ? - Coagulation profile ? - Marijuana cessation recommended. ? - F/U with primary GI doctor at [facility]. Narrative 03/19/2024 12:[address] [facility] GI Patient Name: Eboni Tatum Procedure Date: 03/19/2024 12:04 PM Date of : 1975 Age: 48 Gender: Female Note Status: Finalized Attending MD: Jesse Saenz DO, [id number] Procedure Date No Time: 03/19/2024 Procedure: ? [...] physician, the nurse, the ? anesthesiologist, the health center associate and the cardiac catheterization technician ? in the pre-procedure area in [...] hemostatic clip was successfully placed. Clip ? metal neutralizer: [employer]. There was no bleeding ? at the end of the procedure. Estimated blood loss was ? minimal. Procedure Code(s): ? --- Professional --- ? 88954, 59, Esophagogastroduodenoscopy, flexible, ? transoral; with control of bleeding, any method ? 31506, Esophagogastroduodenoscopy, flexible, ? transoral; with biopsy, single or multiple Diagnosis Code(s): ? --- Professional --- ? Z98.84, Bariatric surgery status ? K31.89, Other diseases of stomach and duodenum ? R10.13, Epigastric pain ? R11.2, Nausea with vomiting, unspecified CPT copyright 2020 [employer]. All rights reserved. The codes documented in this report are preliminary and upon nitric acid concentrator operator review may be revised to meet current compliance requirements. JESSE Saenz DO 03/19/2024 12:21:51 PM This report has been signed electronically.Jesse Saenz DO Number of Addenda: 0 Note Initiated On: 03/19/2024 12:04 PM Scope In: Scope Out: ? Endoscopy Department at [facility] - [address] [place] [address], ? [place] [address] Procedure Note Jesse Saenz DO - 03/19/2024 [facility] GI Patient Name: Eboni Tatum Procedure Date: 03/19/2024 12:04 PM Date of : 1975 Age: 48 Gender: Female Note Status: Finalized Attending MD: Jesse Saenz DO, [id number] Procedure Date No Time: 03/19/2024 Procedure: Upper [...] the physician, the nurse, the anesthesiologist, the health center associate and thetechnician in the pre-procedure area in [...] hemostasis,one hemostatic clip was successfully placed. Clip metal neutralizer: [employer]. There was nobleeding at the end of the procedure. Estimated blood losswas minimal. Procedure Code(s): --- Professional --- 68456, 59, Esophagogastroduodenoscopy, flexible, transoral; with control of bleeding, any method 19677, Esophagogastroduodenoscopy, flexible, transoral; with biopsy, single or multiple Diagnosis Code(s): --- Professional --- Z98.84, Bariatric surgery status K31.89, Other diseases of stomach and duodenum R10.13, Epigastric pain R11.2, Nausea with vomiting, unspecified CPT copyright 2020 [employer]. All rights reserved. The codes documented in this report are preliminary and upon nitric acid concentrator operator reviewmay be revised to meet current compliance requirements. JESSE Saenz DO 03/19/2024 12:21:51 PM This report has been signed electronically.Jesse Saenz DO Number of Addenda: 0 Note Initiated On: 03/19/2024 12:04 PM Scope In: Scope Out: Endoscopy Department at [facility] - [address] [place] [id number] IMPRESSION: - Normal esophagus. - Normal examined jejunum. - Gastric bypass. - Erythematous mucosa in the stomach. Biopsied.Clip was placed. Clip metal neutralizer: [employer]. Recommendation: - Discharge patient to home. - Resume previous diet. - Continue present medications. - Await pathology results. - Bleeding from gastric biopsy site treated with an endoclip as the bleeding would not stopspontaneously. - Coagulation profile - Marijuana cessation recommended. - F/U with primary GI doctor at [facility]. Jesse Saenz DO GI~PROCEDURE ORDERAB LES * Tissue exam (03/19/2024 12:13 PM EST) Final Diagnosis Stomach, biopsy: Gastric antral and oxyntic-type mucosa with minimal chronic inflammation. No active gastritis and no intestinal metaplasia identified. No Helicobacter pylori identified on hematoxylin and eosin stained sections. 03/20/2024 11:19 AM EST [facility] Gross Description A. Stomach, biopsies, gastric: Labeled stomach biopsies . Received in formalin are three irregular morley mucosal tissue fragments, ranging from 0.3 cm to 0.6 cm in greatest dimension, which are wrapped in paper and submitted in toto in one cassette, three pieces, multiple levels on one slide. ABDOUL 03/20/2024 11:19 AM EST [facility] Disclaimer Unless otherwise specified, all tissue is 10% NB formalin fixed and paraffin embedded. 03/20/2024 11:19 AM EST [facility] Tissue Stomach structure / Unknown 03/19/2024 12:13 PM EST 03/19/2024 12:58 PM EST Jesse Saenz DO LAB PATHOLOGY ORDERA BLES Performing Organization Address [facility]/ZIP Co de Phone Number [facility] [address] [place] [address], [place] [phone] * ECG-Annotated (03/19/2024) Provider Onbase ECG ORDERABLES * Troponin I high sensitivity (03/18/2024 6:25 AM EST) High Sensitivity Troponin I 15 <=54 ng/L LAB CHEMISTRY METHOD 03/18/2024 8:06 AM EST [facility] Blood Venous blood specimen / Unknown Venipuncture / Unknown 03/18/2024 6:25 AM EST 03/18/2024 7:16 AM EST Narrative [facility] - 03/18/2024 8:06 AM EST High levels of biotin in samples may falsely decrease hsTroponin values. ??Use caution when interpreting hsTroponin results in patients taking biotin who exhibit renal impairment (eGFR <60) or in patients taking more than 20 mg/day of biotin. Derrick Severino MD LAB BLOOD ORDERABLES Performing Organization Address [facility]/ZIP Co de Phone Number [facility] [address] [place] [address], [place] [phone] * Prothrombin time with INR (03/18/2024 6:25 AM EST) [facility] Protime 10.6 10.6 - 13.9 sec LAB COAGULATION METHOD 03/18/2024 8:03 AM [facility] INR 0.9 LAB COAGULATION METHOD 03/18/2024 8:03 AM [facility] Blood Venous blood specimen / Unknown Venipuncture / Unknown 03/18/2024 6:25 AM EST 03/18/2024 7:16 AM EST Derrick Severino MD LAB BLOOD ORDERABLES [facility] [address] [place] [address], * (ABNORMAL) CBC auto differential (03/18/2024 6:24 AM EST) [facility] WBC 9.2 4.8 - 10.8 K/mcL LAB HEMETOLOGY METHOD 03/18/2024 8:03 AM [facility] RBC 3.60(L) 3.80 - 4.80 M/mcL LAB HEMETOLOGY METHOD 03/18/2024 8:03 AM [facility] Hemoglobin 10.1(L) 11.5 - 16.0 g/dL LAB HEMETOLOGY METHOD 03/18/2024 8:03 AM [facility] Hematocrit 31.2(L) 35.0 - 47.0 % LAB HEMETOLOGY METHOD 03/18/2024 8:03 AM [facility] MCV 86.0 79.0 - 98.0 FL LAB HEMETOLOGY METHOD 03/18/2024 8:03 AM [facility] MCH 27.8 27.0 - 32.0 pcg LAB HEMETOLOGY METHOD 03/18/2024 8:03 AM [facility] MCHC 32.4 32.0 - 37.0 g/dL LAB HEMETOLOGY METHOD 03/18/2024 8:03 AM [facility] RDW 17.2(H) 11.0 - 15.0 % LAB HEMETOLOGY METHOD 03/18/2024 8:03 AM [facility] Platelets 187 130 - 400 K/mcL LAB HEMETOLOGY METHOD 03/18/2024 8:03 AM [facility] MPV 9.7 7.0 - 11.0 FL LAB HEMETOLOGY METHOD 03/18/2024 8:03 AM [facility] NRBC 0.0 <1.0 % LAB HEMETOLOGY METHOD 03/18/2024 8:03 AM [facility] NRBC Absolute 0.00 <0.10 K/mcL LAB HEMETOLOGY METHOD 03/18/2024 8:03 AM [facility] Neutrophils Relative 66.8 % LAB HEMETOLOGY METHOD 03/18/2024 8:03 AM [facility] Lymphocytes Relative 24.1 % LAB HEMETOLOGY METHOD 03/18/2024 8:03 AM [facility] Monocytes Relative 8.4 % LAB HEMETOLOGY METHOD 03/18/2024 8:03 AM [facility] Eosinophils Relative 0.2 % LAB HEMETOLOGY METHOD 03/18/2024 8:03 AM [facility] Basophils Relative 0.2 % LAB HEMETOLOGY METHOD 03/18/2024 8:03 AM [facility] Immature Granulocytes Relative 0.3 % LAB HEMETOLOGY METHOD 03/18/2024 8:03 AM [facility] Neutrophils Absolute 6.16 1.50 - 7.00 K/mcL LAB HEMETOLOGY METHOD 03/18/2024 8:03 AM [facility] Lymphocytes Absolute 2.23 1.00 - 5.00 K/mcL LAB HEMETOLOGY METHOD 03/18/2024 8:03 AM EST [facility] Monocytes Absolute 0.78 0.20 - 1.00 K/[facility] LAB HEMETOLOGY METHOD 03/18/2024 8:03 AM [facility] Eosinophils Absolute 0.02 0.00 - 0.50 K/[facility] LAB HEMETOLOGY METHOD 03/18/2024 8:03 AM EST [facility] Basophils Absolute 0.02 0.00 - 0.20 K/[facility] LAB HEMETOLOGY METHOD 03/18/2024 8:03 AM EST [facility] Immature Granulocytes Absolute 0.03 0.00 - 0.03 K/[facility] LAB HEMETOLOGY METHOD 03/18/2024 8:03 AM [facility] Blood Venous blood specimen / Unknown Venipuncture / Unknown 03/18/2024 6:24 AM EST 03/18/2024 7:16 AM EST Derrick Severino MD LAB BLOOD ORDERABLES [facility] [address] [place] [address], * C-reactive protein (03/18/2024 6:24 AM EST) C-Reactive Protein <0.29 <=0.50 mg/dL LAB CHEMISTRY METHOD 03/18/2024 8:14 AM EST [facility] Blood Venous blood specimen / Unknown Venipuncture / Unknown 03/18/2024 6:24 AM EST 03/18/2024 7:15 AM EST Derrick Severino MD LAB BLOOD ORDERABLES [facility] [address] [place] [address], [place] [phone] * Lipase (03/18/2024 6:24 AM EST) Lipase 27 13 - 75 unit/L LAB CHEMISTRY METHOD 03/18/2024 8:14 AM [facility] Blood Venous blood specimen / Unknown Venipuncture / Unknown 03/18/2024 6:24 AM EST 03/18/2024 7:15 AM EST Derrick Severino MD LAB BLOOD ORDERABLES [facility] [address] [place] [address], * (ABNORMAL) Comprehensive metabolic panel (03/18/2024 6:24 AM EST) [facility] Sodium 136 133 - 145 mmol/L LAB CHEMISTRY METHOD 03/18/2024 8:14 AM [facility] Potassium 4.3 3.5 - 5.5 mmol/L LAB CHEMISTRY METHOD 03/18/2024 8:14 AM [facility] Chloride 103 96 - 110 mmol/L LAB CHEMISTRY METHOD 03/18/2024 8:14 AM [facility] CO2 29 21 - 32 mmol/L LAB CHEMISTRY METHOD 03/18/2024 8:14 AM [facility] Anion Gap 4 3 - 11 LAB CHEMISTRY METHOD 03/18/2024 8:14 AM [facility] Glucose 106(H) 70 - 100 mg/dL LAB CHEMISTRY METHOD 03/18/2024 8:14 AM [facility] BUN 15 5 - 25 mg/dL LAB CHEMISTRY METHOD 03/18/2024 8:14 AM [facility] Creatinine 1.00 0.50 - 1.10 mg/dL LAB CHEMISTRY METHOD 03/18/2024 8:14 AM [facility] eGFR 70 >=60 mL/min/1. 73m2 LAB CHEMISTRY METHOD 03/18/2024 8:14 AM [facility] Comment:Calculation based on the??Chronic Kidney Disease Epidemiology Collaboration (CKD-EPI) equation refit??without adjustment for race. BUN/Creatinine Ratio 15.0 LAB CHEMISTRY METHOD 03/18/2024 8:14 AM [facility] Calcium 9.0 8.5 - 10.5 mg/dL LAB CHEMISTRY METHOD 03/18/2024 8:14 AM [facility] AST (SGOT) 12 10 - 42 unit/L LAB CHEMISTRY METHOD 03/18/2024 8:14 AM [facility] ALT (SGPT) 20 10 - 60 unit/L LAB CHEMISTRY METHOD 03/18/2024 8:14 AM [facility] Alkaline Phosphatase 75 42 - 121 unit/L LAB CHEMISTRY METHOD 03/18/2024 8:14 AM [facility] Total Protein 7.2 6.0 - 8.0 g/dL LAB CHEMISTRY METHOD 03/18/2024 8:14 AM [facility] Albumin 3.8 3.2 - 5.0 g/dL LAB CHEMISTRY METHOD 03/18/2024 8:14 AM [facility] Total Bilirubin 0.5 0.0 - 1.4 mg/dL LAB CHEMISTRY METHOD 03/18/2024 8:14 AM [facility] Blood Venous blood specimen / Unknown Venipuncture / Unknown 03/18/2024 6:24 AM EST 03/18/2024 7:15 AM EST Derrick Severino MD LAB BLOOD ORDERABLES [facility] [address] [place] [address], * (ABNORMAL) Phosphorus (03/18/2024 6:24 AM EST) Phosphorus 2.3(L) 2.5 - 4.5 mg/dL LAB CHEMISTRY METHOD 03/18/2024 8:14 AM EST [facility] Blood Venous blood specimen / Unknown Venipuncture / Unknown 03/18/2024 6:24 AM EST 03/18/2024 7:15 AM EST Derrick Severino MD LAB BLOOD ORDERABLES Performing Organization Address [facility]/ZIP Co de Phone Number [facility] [address] [place] [address], * Magnesium (03/18/2024 6:24 AM EST) [facility] Magnesium 1.9 1.9 - 2.6 mg/dL LAB CHEMISTRY METHOD 03/18/2024 8:14 AM EST [facility] Blood Venous blood specimen / Unknown Venipuncture / Unknown 03/18/2024 6:24 AM EST 03/18/2024 7:15 AM EST Derrick Severino MD LAB BLOOD ORDERABLES Performing Organization Address [facility] Co de Phone Number [facility] [address] [place] [address], * ECG 12 lead (03/18/2024 6:00 AM EST) Ventricular Rate ECG 68 BPM GEMUSE Atrial Rate 68 BPM GEMUSE P-R Interval 182 ms GEMUSE QRS Duration 84 ms GEMUSE Q-T Interval 444 ms GEMUSE QTc 472 ms GEMUSE P Wave [place] 68 degrees GEMUSE R [place] 35 degrees GEMUSE T [place] 61 degrees GEMUSE ECG Interpretation Normal sinus rhythm Normal ECG When compared with ECG of 17-MAR-2024 17:12, (unconfirmed) No significant change was found Confirmed by MAGALYS GOODEN ([id number]) on 03/19/2024 3:55:16 PM GEMUSE 03/18/2024 6:00 AM EST 03/19/2024 3:55 PM EST Derrick Severino MD ECG ORDERABLES Performing Organization Address [facility] de Phone Number GEMUSE * ECG 12 lead (03/17/2024 5:12 PM EST) Ventricular Rate ECG 66 BPM GEMUSE Atrial Rate 66 BPM GEMUSE P-R Interval 178 ms GEMUSE QRS Duration 82 ms GEMUSE Q-T Interval 460 ms GEMUSE QTc 482 ms GEMUSE P Wave [place] 46 degrees GEMUSE R [place] 33 degrees GEMUSE T [place] 58 degrees GEMUSE ECG Interpretation Normal sinus rhythm Prolonged QT Abnormal ECG When compared with ECG of 17-MAR-2024 00:59, No significant change was found Confirmed by MAGALYS GOODEN ([id number]) on 03/19/2024 9:02:28 AM GEMUSE 03/17/2024 5:12 PM EST 03/19/2024 9:02 AM EST Pegram Delano Severino MD ECG ORDERABLES Performing Organization Address [facility] Phone Number RENETTA * XR Abdomen 1 View (03/17/2024 11:44 [...] Signed Date: 03/17/2024 11:56 ET Workstation ID: [id number] Transcribed By: Self Edit Transcribed Date: 03/17/2024 11:55 ET Narrative 03/17/2024 11:56 AM EST XR ABDOMEN 1 VIEW INDICATION: ??Nausea and vomiting TECHNIQUE: XR ABDOMEN 1 VIEW COMPARISON: No priors available. Procedure Note Urbano Matthews MD - 01/04/2025 XR ABDOMEN 1 VIEW INDICATION: Nausea and [...] Signed Date: 03/17/2024 11:56 ET Workstation ID: [id number] Transcribed By: Self Edit Transcribed Date: 03/17/2024 11:55 ET Derrick Severino MD IMG XR PROCEDURES * Lipase (03/17/2024 5:34 AM EST) Pathologist [facility] Lipase 23 13 - 75 unit/L LAB CHEMISTRY METHOD 03/17/2024 5:23 PM [facility] Blood Venous blood specimen / Unknown Venipuncture / Unknown 03/17/2024 5:34 AM EST 03/17/2024 5:46 AM EST Derrick Severino MD LAB BLOOD ORDERABLES [facility] [address] [place] [address], * (ABNORMAL) CBC auto differential (03/17/2024 5:34 AM EST) Pathologist [facility] WBC 8.2 4.8 - 10.8 K/mcL LAB HEMETOLOGY METHOD 03/17/2024 6:21 AM [facility] RBC 4.30 3.80 - 4.80 M/mcL LAB HEMETOLOGY METHOD 03/17/2024 6:21 AM [facility] Hemoglobin 12.0 11.5 - 16.0 g/dL LAB HEMETOLOGY METHOD 03/17/2024 6:21 AM [facility] Hematocrit 35.5 35.0 - 47.0 % LAB HEMETOLOGY METHOD 03/17/2024 6:21 AM [facility] MCV 82.4 79.0 - 98.0 FL LAB HEMETOLOGY METHOD 03/17/2024 6:21 AM [facility] MCH 27.8 27.0 - 32.0 pcg LAB HEMETOLOGY METHOD 03/17/2024 6:21 AM [facility] MCHC 33.8 32.0 - 37.0 g/dL LAB HEMETOLOGY METHOD 03/17/2024 6:21 AM [facility] RDW 17.0(H) 11.0 - 15.0 % LAB HEMETOLOGY METHOD 03/17/2024 6:21 AM [facility] Platelets 179 130 - 400 K/mcL LAB HEMETOLOGY METHOD 03/17/2024 6:21 AM [facility] MPV 9.0 7.0 - 11.0 FL LAB HEMETOLOGY METHOD 03/17/2024 6:21 AM [facility] NRBC 0.0 <1.0 % LAB HEMETOLOGY METHOD 03/17/2024 6:21 AM [facility] NRBC Absolute 0.00 <0.10 K/mcL LAB HEMETOLOGY METHOD 03/17/2024 6:21 AM [facility] Neutrophils Relative 78.0 % LAB HEMETOLOGY METHOD 03/17/2024 6:21 AM [facility] Lymphocytes Relative 18.6 % LAB HEMETOLOGY METHOD 03/17/2024 6:21 AM [facility] Monocytes Relative 2.7 % LAB HEMETOLOGY METHOD 03/17/2024 6:21 AM [facility] Eosinophils Relative 0.1 % LAB HEMETOLOGY METHOD 03/17/2024 6:21 AM EST [facility] Basophils Relative 0.2 % LAB HEMETOLOGY METHOD 03/17/2024 6:21 AM [facility] Immature Granulocytes Relative 0.4 % LAB HEMETOLOGY METHOD 03/17/2024 6:21 AM [facility] Neutrophils Absolute 6.41 1.50 - 7.00 K/mcL LAB HEMETOLOGY METHOD 03/17/2024 6:21 AM [facility] Lymphocytes Absolute 1.53 1.00 - 5.00 K/mcL LAB HEMETOLOGY METHOD 03/17/2024 6:21 AM [facility] Monocytes Absolute 0.22 0.20 - 1.00 K/mcL LAB HEMETOLOGY METHOD 03/17/2024 6:21 AM [facility] Eosinophils Absolute 0.01 0.00 - 0.50 K/mcL LAB HEMETOLOGY METHOD 03/17/2024 6:21 AM [facility] Basophils Absolute 0.02 0.00 - 0.20 K/mcL LAB HEMETOLOGY METHOD 03/17/2024 6:21 AM [facility] Immature Granulocytes Absolute 0.03 0.00 - 0.03 K/mcL LAB HEMETOLOGY METHOD 03/17/2024 6:21 AM [facility] Blood Venous blood specimen / Unknown Venipuncture / Unknown 03/17/2024 5:34 AM EST 03/17/2024 5:46 AM EST Gabe Coronado MD LAB BLOOD ORDERABLE S [facility] [address] [place] [address], * (ABNORMAL) Basic metabolic panel (03/17/2024 5:34 AM EST) Sodium 133 133 - 145 mmol/L LAB CHEMISTRY METHOD 03/17/2024 6:27 AM [facility] Potassium 4.2 3.5 - 5.5 mmol/L LAB CHEMISTRY METHOD 03/17/2024 6:27 AM [facility] Comment:Hemolysis present Chloride 101 96 - 110 mmol/L LAB CHEMISTRY METHOD 03/17/2024 6:27 AM [facility] CO2 28 21 - 32 mmol/L LAB CHEMISTRY METHOD 03/17/2024 6:27 AM [facility] Anion Gap 4 3 - 11 LAB CHEMISTRY METHOD 03/17/2024 6:27 AM [facility] Glucose 129(H) 70 - 100 mg/dL LAB CHEMISTRY METHOD 03/17/2024 6:27 AM [facility] BUN 29(H) 5 - 25 mg/dL LAB CHEMISTRY METHOD 03/17/2024 6:27 AM [facility] Creatinine 1.80(H) 0.50 - 1.10 mg/dL LAB CHEMISTRY METHOD 03/17/2024 6:27 AM [facility] eGFR 35(L) >=60 mL/min/1. 73m2 LAB CHEMISTRY METHOD 03/17/2024 6:27 AM [facility] Comment:Calculation based on the??Chronic Kidney Disease Epidemiology Collaboration (CKD-EPI) equation refit??without adjustment for race. BUN/Creatinine Ratio 16.1 LAB CHEMISTRY METHOD 03/17/2024 6:27 AM [facility] Calcium 8.7 8.5 - 10.5 mg/dL LAB CHEMISTRY METHOD 03/17/2024 6:27 AM [facility] Blood Venous blood specimen / Unknown Venipuncture / Unknown 03/17/2024 5:34 AM EST 03/17/2024 5:46 AM EST Gabe Coronado MD LAB BLOOD ORDERABLE S [facility] [address] [place] [address], [place] [phone] * Urinalysis with reflex microscopic (03/17/2024 4:06 AM EST) Specific [place] Urine 1.009 1.003 - 1.030 LAB URINALYSIS - AUTOMATED METHOD 03/17/2024 4:36 AM [facility] pH, Urine 5.5 5.0 - 8.0 pH LAB URINALYSIS - AUTOMATED METHOD 03/17/2024 4:36 AM [facility] Leukocytes, Urine Negative Negative LAB URINALYSIS - AUTOMATED METHOD 03/17/2024 4:36 AM [facility] Nitrite, Urine Negative Negative LAB URINALYSIS - AUTOMATED METHOD 03/17/2024 4:36 AM [facility] Protein, Urine Trace <=Trace mg/dL LAB URINALYSIS - AUTOMATED METHOD 03/17/2024 4:36 AM [facility] Glucose, Urine Negative Negative mg/dL LAB URINALYSIS - AUTOMATED METHOD 03/17/2024 4:36 AM [facility] Ketones, Urine Negative Negative mg/dL LAB URINALYSIS - AUTOMATED METHOD 03/17/2024 4:36 AM [facility] Urobilinogen, Urine 0.2 0.2 - 1.0 mg/dL LAB URINALYSIS - AUTOMATED METHOD 03/17/2024 4:36 AM [facility] Bilirubin, Urine Negative Negative LAB URINALYSIS - AUTOMATED METHOD 03/17/2024 4:36 AM [facility] Blood, Urine Negative Negative LAB URINALYSIS - AUTOMATED METHOD 03/17/2024 4:36 AM [facility] Urine Urine specimen obtained by clean catch procedure / Unknown Non-blood Collection / Unknown 03/17/2024 4:06 AM EST 03/17/2024 4:25 AM EST Gabe Coronado MD LAB URINE ORDERABLE S [facility] [address] [place] [address], [place] [phone] * HCG qualitative, urine (03/17/2024 4:06 AM EST) Preg Test, Ur Negative Negative 03/17/2024 4:56 AM EST [facility] Urine Urine specimen obtained by clean catch procedure / Unknown Non-blood Collection / Unknown 03/17/2024 4:06 AM EST 03/17/2024 4:25 AM EST Gabe Coronado MD LAB URINE ORDERABLE S Performing Organization Address [facility] de Phone Number [facility] [address] [place] [address], [place] [phone] * Sodium, urine, random (03/17/2024 4:06 AM EST) Sodium, Ur 19 mmol/L LAB CHEMISTRY METHOD 03/17/2024 4:54 AM EST [facility] Urine Urine specimen obtained by clean catch procedure / Unknown Non-blood Collection / Unknown 03/17/2024 4:06 AM EST 03/17/2024 4:25 AM EST Gabe Coronado MD LAB URINE ORDERABLE S Performing Organization Address [facility] Co de Phone Number [facility] [address] [place] [address], * Protein, urine, random (03/17/2024 4:06 AM EST) Protein, Urine 20 mg/dL LAB CHEMISTRY METHOD 03/17/2024 4:54 AM EST [facility] Urine Urine specimen obtained by clean catch procedure / Unknown Non-blood Collection / Unknown 03/17/2024 4:06 AM EST 03/17/2024 4:25 AM EST Gabe Coronado MD LAB URINE ORDERABLE S Performing Organization Address City/[facility]/ZIP Co de Phone Number [facility] [address] [place] [address], [place] [phone] * Creatinine, urine, random (03/17/2024 4:06 AM EST) Creatinine, Urine 77.0 mg/dL LAB CHEMISTRY METHOD 03/17/2024 4:54 AM EST [facility] Urine Urine specimen obtained by clean catch procedure / Unknown Non-blood Collection / Unknown 03/17/2024 4:06 AM EST 03/17/2024 4:25 AM EST Gabe Coronado MD LAB URINE ORDERABLE S Performing Organization Address [facility] Co de Phone Number [facility] [address] [place] [address], [place] [phone] * [place] Retroperitoneal Complete (03/17/2024 2:05 AM [...] bladder wall thickening or calculi. Procedure Note Trsitin Mcmillan MD - 03/17/2024 Renal Ultrasound Comparison: [...] Will Sepulveda 03/17/2024 02:34:03 Gabe Coronado MD IM US PROCEDURES * ECG 12 lead (03/17/2024 12:59 AM EST) Ventricular Rate ECG 73 BPM GEMUSE Atrial Rate 73 BPM GEMUSE P-R Interval 170 ms GEMUSE QRS Duration 80 ms GEMUSE Q-T Interval 448 ms GEMUSE QTc 493 ms GEMUSE P Wave [place] 63 degrees GEMUSE R [place] 14 degrees GEMUSE T [place] 55 degrees GEMUSE ECG Interpretation Normal sinus rhythm Prolonged QT Abnormal ECG When compared with ECG of 16-MAR-2024 13:37, (unconfirmed) No significant change was found Confirmed by Nahid BLACKMAN JAMES ([id number]) on 03/17/2024 3:24:00 PM GEMUSE 03/17/2024 12:5 9 AM EST 03/17/2024 3:24 PM EST Kit Nixon MD ECG ORDERABLES GEMUSE * ECG-Outside (03/17/2024) Provider Onjewel SPENCER ECG ORDERABLES * Troponin I high sensitivity (03/16/2024 10:55 PM EST) Pathologist [facility] High Sensitivity Troponin I 46 <=54 ng/L LAB CHEMISTRY METHOD 03/16/2024 11:35 PM EST [facility] Blood Venous blood specimen / Unknown Venipuncture / Unknown 03/16/2024 10:55 PM EST 03/16/2024 11:09 PM EST Narrative [facility] - 03/16/2024 11:35 PM EST High levels of biotin in samples may falsely decrease hsTroponin values. ??Use caution when interpreting hsTroponin results in patients taking biotin who exhibit renal impairment (eGFR <60) or in patients taking more than 20 mg/day of biotin. Elva DELATORRE LAB BLOOD ORDERA BLES [facility] [address] [place] [address], * (ABNORMAL) Basic metabolic panel (03/16/2024 10:55 PM EST) Sodium 132(L) 133 - 145 mmol/L LAB CHEMISTRY METHOD 03/16/2024 11:29 PM [facility] Potassium 3.9 3.5 - 5.5 mmol/L LAB CHEMISTRY METHOD 03/16/2024 11:29 PM [facility] Chloride 99 96 - 110 mmol/L LAB CHEMISTRY METHOD 03/16/2024 11:29 PM [facility] CO2 27 21 - 32 mmol/L LAB CHEMISTRY METHOD 03/16/2024 11:29 PM [facility] Anion Gap 6 3 - 11 LAB CHEMISTRY METHOD 03/16/2024 11:29 PM [facility] Glucose 101(H) 70 - 100 mg/dL LAB CHEMISTRY METHOD 03/16/2024 11:29 PM [facility] BUN 33(H) 5 - 25 mg/dL LAB CHEMISTRY METHOD 03/16/2024 11:29 PM [facility] Creatinine 2.51(H) 0.50 - 1.10 mg/dL LAB CHEMISTRY METHOD 03/16/2024 11:29 PM [facility] eGFR 23(L) >=60 mL/min/1. 73m2 LAB CHEMISTRY METHOD 03/16/2024 11:29 PM EST [facility] Comment:Calculation based on the??Chronic Kidney Disease Epidemiology Collaboration (CKD-EPI) equation refit??without adjustment for race. BUN/Creatinine Ratio 13.1 LAB CHEMISTRY METHOD 03/16/2024 11:29 PM EST [facility] Calcium 9.2 8.5 - 10.5 mg/dL LAB CHEMISTRY METHOD 03/16/2024 11:29 PM EST [facility] Blood Venous blood specimen / Unknown Venipuncture / Unknown 03/16/2024 10:55 PM EST 03/16/2024 11:09 PM EST Elva DELATORRE LAB BLOOD ORDERA BLES [facility] [address] [place] [address], * XR Knee 4+ Views Right (03/16/2024 6:33 PM EST) Anatomical Region Laterality Modality Lower Extremities, Knee Right Radiogra phic Imaging 03/16/2024 6:46 PM EST Impressions 03/16/2024 6:47 PM EST FINDINGS/IMPRESSION: No acute fracture or dislocation. ??Mild medial compartment predominant degenerative change. ??No joint effusion or focal soft tissue swelling. -------- FINAL REPORT -------- Dictated By: URBANO MATTHEWS Dictated Date: 03/16/2024 18:46 ET Assigned Physician: URBANO MATTHEWS Reviewed and Electronically Signed By: URBANO MATTHEWS Signed Date: 03/16/2024 18:47 ET Workstation ID: [id number] Transcribed By: Self Edit Transcribed Date: 03/16/2024 [...] Signed Date: 03/16/2024 18:47 ET Workstation ID: [id number] Transcribed By: Self Edit Transcribed Date: 03/16/2024 [...] Signed Date: 03/16/2024 18:49 ET Workstation ID: [id number] Transcribed By: Self Edit Transcribed Date: 03/16/2024 [...] Signed Date: 03/16/2024 18:49 ET Workstation ID: [id number] Transcribed By: Self Edit Transcribed Date: 03/16/2024 18:48 ET Kit Nixon MD IMG XR PROCEDURES * (ABNORMAL) Troponin I high sensitivity (03/16/2024 6:22 PM EST) [facility] High Sensitivity Troponin I 61(H) <=54 ng/L LAB CHEMISTRY METHOD 03/16/2024 6:50 PM EST [facility] Blood Venous blood specimen / Unknown Venipuncture / Unknown 03/16/2024 6:22 PM EST 03/16/2024 6:28 PM EST Narrative [facility] - 03/16/2024 6:50 PM EST High levels of biotin in samples may falsely decrease hsTroponin values. ??Use caution when interpreting hsTroponin results in patients taking biotin who exhibit renal impairment (eGFR <60) or in patients taking more than 20 mg/day of biotin. Kit Nixon MD LAB BLOOD ORDERABLES [facility] [address] [place] [address], * (ABNORMAL) CBC auto differential (03/16/2024 2:59 PM EST) [facility] WBC 8.8 4.8 - 10.8 K/[facility] LAB HEMETOLOGY METHOD 03/16/2024 3:46 PM EST [facility] RBC 5.10(H) 3.80 - 4.80 M/[facility] LAB HEMETOLOGY METHOD 03/16/2024 3:46 PM [facility] Hemoglobin 14.1 11.5 - 16.0 g/dL LAB HEMETOLOGY METHOD 03/16/2024 3:46 PM [facility] Hematocrit 41.8 35.0 - 47.0 % LAB HEMETOLOGY METHOD 03/16/2024 3:46 PM [facility] MCV 82.6 79.0 - 98.0 FL LAB HEMETOLOGY METHOD 03/16/2024 3:46 PM [facility] MCH 27.9 27.0 - 32.0 pcg LAB HEMETOLOGY METHOD 03/16/2024 3:46 PM [facility] MCHC 33.7 32.0 - 37.0 g/dL LAB HEMETOLOGY METHOD 03/16/2024 3:46 PM [facility] RDW 17.5(H) 11.0 - 15.0 % LAB HEMETOLOGY METHOD 03/16/2024 3:46 PM [facility] Platelets 228 130 - 400 K/mcL LAB HEMETOLOGY METHOD 03/16/2024 3:46 PM [facility] MPV 9.0 7.0 - 11.0 FL LAB HEMETOLOGY METHOD 03/16/2024 3:46 PM [facility] NRBC 0.0 <1.0 % LAB HEMETOLOGY METHOD 03/16/2024 3:46 PM [facility] NRBC Absolute 0.00 <0.10 K/mcL LAB HEMETOLOGY METHOD 03/16/2024 3:46 PM [facility] Neutrophils Relative 62.2 % LAB HEMETOLOGY METHOD 03/16/2024 3:46 PM [facility] Lymphocytes Relative 29.3 % LAB HEMETOLOGY METHOD 03/16/2024 3:46 PM [facility] Monocytes Relative 7.8 % LAB HEMETOLOGY METHOD 03/16/2024 3:46 PM [facility] Eosinophils Relative 0.2 % LAB HEMETOLOGY METHOD 03/16/2024 3:46 PM [facility] Basophils Relative 0.2 % LAB HEMETOLOGY METHOD 03/16/2024 3:46 PM [facility] Immature Granulocytes Relative 0.3 % LAB HEMETOLOGY METHOD 03/16/2024 3:46 PM [facility] Neutrophils Absolute 5.48 1.50 - 7.00 K/mcL LAB HEMETOLOGY METHOD 03/16/2024 3:46 PM [facility] Lymphocytes Absolute 2.58 1.00 - 5.00 K/mcL LAB HEMETOLOGY METHOD 03/16/2024 3:46 PM [facility] Monocytes Absolute 0.69 0.20 - 1.00 K/mcL LAB HEMETOLOGY METHOD 03/16/2024 3:46 PM [facility] Eosinophils Absolute 0.02 0.00 - 0.50 K/mcL LAB HEMETOLOGY METHOD 03/16/2024 3:46 PM [facility] Basophils Absolute 0.02 0.00 - 0.20 K/mcL LAB HEMETOLOGY METHOD 03/16/2024 3:46 PM [facility] Immature Granulocytes Absolute 0.03 0.00 - 0.03 K/mcL LAB HEMETOLOGY METHOD 03/16/2024 3:46 PM [facility] Blood Venous blood specimen / Unknown Venipuncture / Unknown 03/16/2024 2:59 PM EST 03/16/2024 3:37 PM EST Kit Nixon MD LAB BLOOD ORDERABLES [facility] [address] [place] [address], * (ABNORMAL) B-type natriuretic peptide (03/16/2024 2:59 PM EST) [facility] BNP 134(H) <=100 pcg/mL LAB CHEMISTRY METHOD 03/16/2024 4:37 PM EST [facility] Blood Venous blood specimen / Unknown Venipuncture / Unknown 03/16/2024 2:59 PM EST 03/16/2024 3:37 PM EST Kit Nixon MD LAB BLOOD ORDERABLES [facility] [address] [place] [address], [place] [phone] * Magnesium (03/16/2024 2:59 PM EST) [facility] Magnesium 2.2 1.9 - 2.6 mg/dL LAB CHEMISTRY METHOD 03/16/2024 4:12 PM EST [facility] Blood Venous blood specimen / Unknown Venipuncture / Unknown 03/16/2024 2:59 PM EST 03/16/2024 3:37 PM EST Kit Nixon MD LAB BLOOD ORDERABLES Performing Organization Address City/[facility]/ZIP Co de Phone Number [facility] [address] [place] [address], [place] [phone] * Lipase (03/16/2024 2:59 PM EST) [facility] Lipase 29 13 - 75 unit/L LAB CHEMISTRY METHOD 03/16/2024 4:12 PM EST [facility] Blood Venous blood specimen / Unknown Venipuncture / Unknown 03/16/2024 2:59 PM EST 03/16/2024 3:37 PM EST Kit Nixon MD LAB BLOOD ORDERABLES [facility] [address] [place] [address], [place] [phone] * (ABNORMAL) Comprehensive metabolic panel (03/16/2024 2:59 PM EST) Sodium 130(L) 133 - 145 mmol/L LAB CHEMISTRY METHOD 03/16/2024 4:12 PM [facility] Potassium 3.9 3.5 - 5.5 mmol/L LAB CHEMISTRY METHOD 03/16/2024 4:12 PM [facility] Comment:Hemolysis present Chloride 96 96 - 110 mmol/L LAB CHEMISTRY METHOD 03/16/2024 4:12 PM [facility] CO2 26 21 - 32 mmol/L LAB CHEMISTRY METHOD 03/16/2024 4:12 PM [facility] Anion Gap 8 3 - 11 LAB CHEMISTRY METHOD 03/16/2024 4:12 PM [facility] Glucose 119(H) 70 - 100 mg/dL LAB CHEMISTRY METHOD 03/16/2024 4:12 PM [facility] BUN 28(H) 5 - 25 mg/dL LAB CHEMISTRY METHOD 03/16/2024 4:12 PM [facility] Creatinine 2.82(H) 0.50 - 1.10 mg/dL LAB CHEMISTRY METHOD 03/16/2024 4:12 PM [facility] eGFR 20(L) >=60 mL/min/1. 73m2 LAB CHEMISTRY METHOD 03/16/2024 4:12 PM [facility] Comment:Calculation based on the??Chronic Kidney Disease Epidemiology Collaboration (CKD-EPI) equation refit??without adjustment for race. BUN/Creatinine Ratio 9.9 LAB CHEMISTRY METHOD 03/16/2024 4:12 PM [facility] Calcium 9.8 8.5 - 10.5 mg/dL LAB CHEMISTRY METHOD 03/16/2024 4:12 PM [facility] AST (SGOT) 17 10 - 42 unit/L LAB CHEMISTRY METHOD 03/16/2024 4:12 PM EST [facility] ALT (SGPT) 21 10 - 60 unit/L LAB CHEMISTRY METHOD 03/16/2024 4:12 PM EST [facility] Alkaline Phosphatase 98 42 - 121 unit/L LAB CHEMISTRY METHOD 03/16/2024 4:12 PM EST [facility] Total Protein 9.0(H) 6.0 - 8.0 g/dL LAB CHEMISTRY METHOD 03/16/2024 4:12 PM EST [facility] Albumin 4.7 3.2 - 5.0 g/dL LAB CHEMISTRY METHOD 03/16/2024 4:12 PM [facility] Total Bilirubin 0.5 0.0 - 1.4 mg/dL LAB CHEMISTRY METHOD 03/16/2024 4:12 PM EST [facility] Blood Venous blood specimen / Unknown Venipuncture / Unknown 03/16/2024 2:59 PM EST 03/16/2024 3:37 PM EST Kit Nixon MD LAB BLOOD ORDERABLES [facility] [address] [place] [address], * (ABNORMAL) Troponin I high sensitivity (03/16/2024 2:59 PM EST) High Sensitivity Troponin I 80(H) <=54 ng/L LAB CHEMISTRY METHOD 03/16/2024 4:04 PM EST [facility] Blood Venous blood specimen / Unknown Venipuncture / Unknown 03/16/2024 2:59 PM EST 03/16/2024 3:37 PM EST Narrative [facility] - 03/16/2024 4:04 PM EST High levels of biotin in samples may falsely decrease hsTroponin values. ??Use caution when interpreting hsTroponin results in patients taking biotin who exhibit renal impairment (eGFR <60) or in patients taking more than 20 mg/day of biotin. Kit Nixon MD LAB BLOOD ORDERABLES [facility] [address] [place] [address], * ECG 12 lead (03/16/2024 1:37 PM EST) Ventricular Rate ECG 95 BPM GEMUSE Atrial Rate 95 BPM GEMUSE P-R Interval 162 ms GEMUSE QRS Duration 70 ms GEMUSE Q-T Interval 396 ms GEMUSE QTc 497 ms GEMUSE P Wave [place] 75 degrees GEMUSE R [place] 44 degrees GEMUSE T [place] 69 degrees GEMUSE ECG Interpretation Normal sinus rhythm Right atrial enlargement Prolonged QT Abnormal ECG When compared with ECG of 08-JAN-2024 13:56, Premature ventricular complexes are no longer Present Nonspecific T wave abnormality no longer evident in Inferior leads Nonspecific T wave abnormality no longer evident in Lateral leads Confirmed by Nahid BLACKMAN JAMES ([id number]) on 03/17/2024 3:17:40 PM GEMUSE 03/16/2024 1:37 PM EST 03/17/2024 3:17 PM EST Kit Nixon MD ECG ORDERABLES GEMUSE documented in this encounter Visit Diagnoses Diagnosis Acute renal failure (CMS/HCC)- Primary Acute kidney failure, unspecified Acute kidney injury (CMS/HCC) Cyclic vomiting syndrome Persistent vomiting History of gastric bypass Cardiac enzymes elevated Other nonspecific abnormal serum enzyme levels documented in this encounter Admitting Diagnoses Diagnosis Acute renal failure (CMS/HCC) Acute kidney failure, unspecified Acute kidney injury (CMS/HCC) documented in this encounter Administered Medications Inactive Administered Medications - up to 3 most recent administrations Medication Order MAR Action Action Date Dose Rate Site acetaminophen (TYLENOL) tablet 650 mg 650 mg, oral, Every 4 hours PRN, mild pain, headaches, fever - temperature GREATER than 38 C (100.4 F), Starting on 03/17/24 at 0125 Given 03/19/2024 2:06 PM EST 650 mg carvediloL (COREG) tablet 12.5 mg 12.5 mg, oral, 2 times daily with meals, First dose on 03/17/24 at 0800 Given 03/19/2024 8:41 AM EST 12.5 mg Given 03/18/2024 5:01 PM EST 12.5 mg Given 03/18/2024 8:01 AM EST 12.5 mg clonazePAM (KlonoPIN) tablet 1 mg 1 mg, oral, 3 times daily PRN, anxiety, Starting on 03/17/24 at 0200, HAZARDOUS Drug Precautions - Low Risk (Category A/NIOSH Group 3) Reproductive Risk Only: - Single pair of ASTM standard D6978 certified chemotherapy gloves - Eye protection (goggles or face shield) required only with a potential for facial contact (i.e. concern for spitting or vomiting of the dose during or after administration) - Staff at reproductive risk (actively trying to conceive, or may be become , and ): chemo certified gown and an N95 respirator required when crushing meds (crushing of tabs allowed only in closed pouches) or opening of capsules only for allowable dosage forms Given 03/19/2024 8:41 AM EST 1 mg Given 03/19/2024 12:15 AM EST 1 mg Given 03/18/2024 3:35 PM EST 1 mg dexAMETHasone (DECADRON) injection 4 mg 4 mg, intravenous, Once, On 03/17/24 at 0156, For 1 dose Given 03/17/2024 2:42 AM EST 4 mg docusate sodium (COLACE) capsule 100 mg 100 mg, oral, 2 times daily PRN, constipation, Starting on 03/18/24 at 0411 Given 03/18/2024 4:20 AM EST 100 mg enoxaparin (LOVENOX) injection 30 mg 30 mg, subcutaneous, Every 24 hours scheduled, First dose on 03/17/24 at 0900, Renal dosing, Indication: VTE/PE Prophylaxis Given 03/18/2024 8:04 AM EST 30 mg Right Lower Abdomen hydrocortisone (CORTEF) tablet 10 mg 10 mg, oral, Daily, First dose on 03/17/24 at 0800 Given 03/19/2024 8:40 AM EST 10 mg Given 03/18/2024 8:00 AM EST 10 mg Given 03/17/2024 5:43 PM EST 5 mg hydrocortisone (CORTEF) tablet 5 mg 5 mg, oral, Daily, First dose on 03/17/24 at 1800 Given 03/18/2024 5:01 PM EST 5 mg Given 03/17/2024 5:46 PM EST 5 mg HYDROmorphone (PF) (DILAUDID) injection 1 mg 1 mg, intravenous, Once, On 03/17/24 at 0101, For 1 dose Given 03/17/2024 1:14 AM EST 1 mg HYDROmorphone (PF) (DILAUDID) injection 1 mg 1 mg, intravenous, Every 3 hours PRN, severe pain, Starting on 03/17/24 at 0153, FIRST CHOICE MEDICATION FOR SEVERE PAIN (7-10) IF INEFFECTIVE AFTER 30 MIN, PROCEED TO SECOND CHOICE MEDICATION FOR SEVERE PAIN Given 03/18/2024 8:42 PM EST 1 mg Given 03/18/2024 1:09 AM EST 1 mg Given 03/17/2024 9:42 PM EST 1 mg HYDROmorphone (PF) injection 0.5 mg 0.5 mg, intravenous, Once, On Tue03/16/24 at 1932, For 1 dose Given 03/16/2024 8:03 PM EST 0.5 mg HYDROmorphone (PF) injection 0.5 mg 0.5 mg, intravenous, Once, On Tue03/16/24 at 2219, For 1 dose Given 03/16/2024 10:30 PM EST 0.5 mg HYDROmorphone (PF) injection 0.5 mg 0.5 mg, intravenous, Every 3 hours PRN, moderate pain, Starting on 03/17/24 at 0153, SECOND CHOICE MEDICATION FOR MODERATE PAIN (4-6) Given 03/19/2024 8:41 AM EST 0.5 mg Given 03/19/2024 4:40 AM EST 0.5 mg Given 03/19/2024 1:42 AM EST 0.5 mg hydrOXYzine pamoate (VISTARIL) capsule 25 mg 25 mg, oral, Nightly, First dose on 03/17/24 at 2100 Given 03/18/2024 8:35 PM EST 25 mg Given 03/17/2024 9:40 PM EST 25 mg lactated Ringer's bolus 2,000 mL 2,000 mL, intravenous, at 2,000 mL/hr, Administer over 1 Hours, Once, On Tue03/16/24 at 1932, For 1 dose New Bag 03/16/2024 8:02 PM EST 2,000 mL 2000 mL/hr lactated Ringer's infusion 125 mL/hr, intravenous, Continuous, Starting on 03/17/24 at 0126, For 16 hours Rate/Dose Verify 03/17/2024 1:30 PM EST 125 mL/hr 125 mL/hr Rate/Dose Verify 03/17/2024 8:12 AM EST 125 mL/hr 125 mL/ hr New Bag 03/17/2024 2:40 AM EST 125 mL/hr 125 mL/hr lactated Ringer's infusion 125 mL/hr, intravenous, Continuous, Starting on 03/17/24 at 1330, For 16 hours Rate/Dose Verify 03/18/2024 3:52 AM EST 125 mL/hr 125 mL/hr New Bag 03/17/2024 9:49 PM EST 125 mL/hr 125 mL/hr New Bag 03/17/2024 1:51 PM EST 125 mL/hr 125 mL/hr nortriptyline (PAMELOR) capsule 50 mg 50 mg, oral, Daily, First dose on 03/17/24 at 0900 Given 03/19/2024 8:41 AM EST 50 mg Given 03/18/2024 8:01 AM EST 50 mg Given 03/17/2024 8:18 AM EST 50 mg ondansetron (PF) (ZOFRAN) injection 4 mg 4 mg, intravenous, Once, On Tue03/16/24 at 1932, For 1 dose Given 03/16/2024 8:02 PM EST 4 mg ondansetron (PF) (ZOFRAN) injection 4 mg 4 mg, intravenous, Every 8 hours PRN, vomiting, nausea, Starting on 03/17/24 at 0125, -ONLY give IV if patient is unable to take orally. -If inadequate response within 30 minutes, proceed to next-line agent or contact provider if no further options ordered. Given 03/17/2024 8:19 AM EST 4 mg ondansetron ODT (ZOFRAN-ODT) disintegrating tablet 4 mg 4 mg, oral, Every 8 hours PRN, vomiting, nausea, Starting on 03/17/24 at 0125, -Give IV if patient is unable to take orally. -If inadequate response within 30 minutes, proceed to next-line agent or contact provider if no further options ordered. For ODT tablets: -Do not remove from blister pack until just before administering. -Patient should allow tablet to dissolve on tongue. oxyBUTYnin (DITROPAN) tablet 2.5 mg 2.5 mg, oral, 2 times daily, First dose on 03/17/24 at 0900 Given 03/19/2024 8:41 AM EST 2.5 mg Given 03/18/2024 8:39 PM EST 2.5 mg Given 03/18/2024 8:00 AM EST 2 mg oxyCODONE (ROXICODONE) immediate release tablet 15 mg 15 mg, oral, Every 6 hours PRN, moderate pain, Starting on 03/17/24 at 0153, FIRST CHOICE MEDICATION FOR MODERATE PAIN (4-6) IF INEFFECTIVE AFTER 60 MIN, PROCEED TO SECOND CHOICE MEDICATION Given 03/19/2024 2:03 PM EST 15 mg Given 03/19/2024 6:27 AM EST 15 mg Given 03/19/2024 12:15 AM EST 15 mg pantoprazole (PROTONIX) injection 40 mg 40 mg, intravenous, Administer over 2 Minutes, Every 12 hours scheduled, First dose on 03/17/24 at 1330, Pantroprazole - IV push: Reconstitute powder for injection with 10 mL NS; final concentration: 4 mg/mL., Indication for IV Push Pantoprazole? Stress Ulcer Prophylaxis for patients with STRICT NPO status AND contraindication to H2RA Given 03/19/2024 8:40 AM EST 40 mg Given 03/18/2024 8:48 PM EST 40 mg Given 03/18/2024 8:00 AM EST 40 mg polyethylene glycol (MIRALAX) packet 17 g 17 g, oral, Daily, First dose on 03/18/24 at 0900 Given 03/18/2024 8:00 AM EST 17 g prochlorperazine (COMPAZINE) injection 10 mg 10 mg, intravenous, Every 6 hours PRN, nausea, vomiting, Starting on 03/17/24 at 0125, 2nd Line Option: -ONLY give IV if patient is unable to take orally. -Give IM if patient does not have IV Access -If inadequate response within 30 minutes, proceed to next-line agent or contact provider if no further options ordered. prochlorperazine (COMPAZINE) suppository 25 mg 25 mg, rectal, Every 12 hours PRN, nausea, vomiting, Starting on 03/17/24 at 0125, 2nd Line Option: -ONLY give TX if patient is unable to take orally and cannot receive IV/IM. -If inadequate response within 30 minutes, proceed to next-line agent or contact provider if no further options ordered. prochlorperazine (COMPAZINE) tablet 10 mg 10 mg, oral, Every 6 hours PRN, nausea, vomiting, Starting on 03/17/24 at 0125, 2nd Line Option: -Give IV or IM if patient is unable to take orally. -If inadequate response within 30 minutes, proceed to next-line agent or contact provider if no further options ordered. QUEtiapine (SEROquel) tablet 100 mg 100 mg, oral, Nightly, First dose on 03/17/24 at 0201 Given 03/18/2024 8:35 PM EST 100 mg Given 03/17/2024 9:43 PM EST 100 mg Given 03/17/2024 2:51 AM EST 100 mg scopolamine (TRANSDERM-SCOP) patch 1 patch 1 patch, Topical, Administer over 72 Hours, Every 72 hours, First dose on 03/17/24 at 0201, Apply to hairless area of skin behind the ear. Patch Applied 03/17/2024 2:54 AM EST 1 patch Behind Right Ear sodium chloride 0.9 % flush 10 mL 10 mL, intravenous, 2 times daily, First dose on 03/17/24 at 0126 Given 03/19/2024 8:41 AM EST 10 mL Given 03/18/2024 8:44 PM EST 10 mL Given 03/18/2024 8:02 AM EST 10 mL sodium chloride 0.9 % flush 10 mL 10 mL, intravenous, As needed, line care, Starting on 03/17/24 at 0125 sucralfate (CARAFATE) tablet 1 g 1 g, oral, 4 times daily before meals and nightly, First dose on 03/17/24 at 1630 Given 03/17/2024 4:17 PM EST 1 g Given 03/17/2024 4:16 PM EST 1 g tamsulosin (FLOMAX) 24 hr capsule 0.4 mg 0.4 mg, oral, Nightly, First dose on 03/17/24 at 0201, For oral administration: capsules should be swallowed whole (Do not crush, chew, or open). For tube administration: open capsule and administer with water (granules should NOT be crushed). Given 03/18/2024 8:35 PM EST 0.4 mg Given 03/17/2024 9:40 PM EST 0.4 mg Given 03/17/2024 2:54 AM EST 0.4 mg documented in this encounter Discontinued Medications Medication Sig Discontinue Reason Start Date End Da te pantoprazole (PROTONIX) 40 mg EC tablet Take 1 tablet (40 mg total) by mouth 2 (two) times a day. Do not crush, chew, or split. 03/18/2024 03/19/2024 documented as of this encounter Historical Medications * This list may reflect changes made after this encounter. Medication Sig Dispensed Refills Start Date End Date zolpidem (AMBIEN) 5 mg tablet Take 1 tablet (5 mg total) by mouth at bedtime as needed for sleep. Max Daily Amount: 5 mg 07/10/2021 tamsulosin (FLOMAX) 0.4 mg 24 hr capsule Take 1 capsule (0.4 mg total) by mouth at bedtime. spironolactone (ALDACTONE) 25 mg tablet Take 0.5 tablets (12.5 mg total) by mouth 1 (one) time each day. 03/06/2024 scopolamine (TRANSDERM-SCOP) 1 mg over 3 days patch 3 day Apply 1 patch topically every 3rd (third) day. 02/16/2022 QUEtiapine (SEROquel) 100 mg tablet Take 1 tablet (100 mg total) by mouth at bedtime. Xtampza ER 18 mg capsule,sprinkle,ER 12hr tmprr Take 54 mg by mouth 2 (two) times a day. Max Daily Amount: 108 mg 03/15/2024 oxyCODONE (ROXICODONE) 15 mg immediate release tablet Take 1 tablet (15 mg total) by mouth every 8 (eight) hours if needed. Max Daily Amount: 45 mg 03/15/2024 nortriptyline (PAMELOR) 25 mg capsule Take 2 capsules (50 mg total) by mouth 1 (one) time each day. 02/28/2024 hydrOXYzine pamoate (VISTARIL) 25 mg capsule Take 1 capsule (25 mg total) by mouth at bedtime. hydrocortisone (CORTEF) 5 mg tablet Take 1-2 tablets (5-10 mg total) by mouth 2 (two) times a day. TAKE 2 TABLETS AT 8 AM AND TAKE 1 TABLET 6PM 02/27/2024 fesoterodine 4 mg tablet extended release 24 hr Take 1 tablet by mouth 1 (one) time each day. estradioL (ESTRACE) 0.01 % (0.1 mg/gram) vaginal cream Insert 1 g into the vagina 3 (three) times a week. 10/25/2023 clonazePAM (KlonoPIN) 1 mg tablet Take 1 tablet (1 mg total) by mouth 3 (three) times a day if needed for anxiety. Max Daily Amount: 3 mg carvediloL (COREG) 12.5 mg tablet Take 1 tablet (12.5 mg total) by mouth 2 (two) times a day. added in this encounter Active and Recently Administered Medications Times are shown in EST. Scheduled Medication Order 03/17/2024 03/18/2024 03/19/2024 carvediloL (COREG) tablet 12.5 mg 12.5 mg, oral, 2 times daily with meals, First dose on 03/17/24 at 0800 0818 (Given - Provider: Ashlyn Olsen RN)1616 (Given - Provider: Milly Redding RN) 0801 (Given - Provider: Milly Redding RN)1701 (Given - Provider: Milly Redding RN) 0841 (Given - Provider: Carmen Newell RN)1700 (Canceled Entry - Provider: Automatic Discharge Provider - Comment: Automatically canceled at discontinue of medication order) dexAMETHasone (DECADRON) injection 4 mg (COMPLETED) 4 mg, intravenous, Once, On 03/17/24 at 0156, For 1 dose 0242 (Given - Provider: Tad Luna RN) enoxaparin (LOVENOX) injection 30 mg 30 mg, subcutaneous, Every 24 hours scheduled, First dose on 03/17/24 at 0900, Renal dosing, Indication: VTE/PE Prophylaxis 0817 (Not Given - Provider: Ashlyn Olsen RN - Reason: Patient/Resident/Age nt refused - education provided ) 0804 (Given - Provider: Milly Redding, CHRISTINA) 0848 (Not Given - Provider: Carmen Newell, CHRISTINA - Reason: Patient/Resident/Agen t refused - education provided ) hydrocortisone (CORTEF) tablet 10 mg(Linked Group 1) 10 mg, oral, Daily, First dose on 03/17/24 at 0800 0818 (Given - Provider: Ashlyn Olsen RN)1743 (Given - Provider: Milly Redding, CHRISTINA) 0800 (Given - Provider: Milly Redding, CHRISTINA) 0840 (Given - Provider: Carmen Newell, RN) hydrocortisone (CORTEF) tablet 5 mg(Linked Group 1) 5 mg, oral, Daily, First dose on 03/17/24 at 1800 1746 (Given - Provider: Milly Redding RN) 1701 (Given - Provider: Milly Redding RN) HYDROmorphone (PF) (DILAUDID) injection 1 mg (COMPLETED) 1 mg, intravenous, Once, On 03/17/24 at 0101, For 1 dose 0114 (Given - Provider: Tad Luna RN) hydrOXYzine pamoate (VISTARIL) capsule 25 mg 25 mg, oral, Nightly, First dose on 03/17/24 at 2100 2140 (Given - Provider: Ambrose Friedman, CHRISTINA) 203 (Given - Provider: Marcella Luna, RN) nortriptyline (PAMELOR) capsule 50 mg 50 mg, oral, Daily, First dose on 03/17/24 at 0900 0818 (Given - Provider: Ashlyn Olsen RN) 0801 (Given - Provider: Milly Redding, CHRISTINA) 0841 (Given - Provider: Carmen Newell, CHRISTINA) oxyBUTYnin (DITROPAN) tablet 2.5 mg 2.5 mg, oral, 2 times daily, First dose on 03/17/24 at 0900 0919 (Given - Provider: Ana Maria Ryan RN)2140 (Given - Provider: Amborse Friedman RN) 08 (Given - Provider: Milly Redding, CHRISTINA)203 (Given - Provider: Marcella Luna, RN) 0841 (Given - Provider: Carmen Newell RN) oxyCODONE (OxyCONTIN) 12 hr abuse-deterrent tablet 50 mg 50 mg, oral, Every 12 hours scheduled, First dose on 03/17/24 at 0900, Do not crush, chew, or split. 0350 (Held by provider - Provider: Gabe Coronado MD - Reason: Other)0900 (Dose Auto Held - Provider: Gabe Coronado MD)2100 (Dose Auto Held - Provider: Gabe Coronado MD) 0900 (Dose Auto Held - Provider: Gabe Coronado MD)2100 (Not Given - Provider: Marcella Luna RN - Reason: See Provider Order - Comment: Med auto held) 0900 (Hold - Provider: Carmen Newell RN - Reason: See Provider Order)1255 (Unheld by provider - Provider: Yesika Kerns MD) pantoprazole (PROTONIX) injection 40 mg 40 mg, intravenous, Administer over 2 Minutes, Every 12 hours scheduled, First dose on 03/17/24 at 1330, Pantroprazole - IV push: Reconstitute powder for injection with 10 mL NS; final concentration: 4 mg/mL., Indication for IV Push Pantoprazole? Stress Ulcer Prophylaxis for patients with STRICT NPO status AND contraindication to H2RA 1403 (Given - Provider: Milly Redding RN)2141 (Given - Provider: Ambrose Friedman RN) 0800 (Given - Provider: Milly Redding RN)2048 (Given - Provider: Marcella Luna RN) 0840 (Given - Provider: Carmen Newell, CHRISTINA) polyethylene glycol (MIRALAX) packet 17 g 17 g, oral, Daily, First dose on 03/18/24 at 0900 0800 (Given - Provider: Milly Redding RN) 0848 (Not Given - Provider: Carmen Newell, CHRISTINA - Reason: NPO) QUEtiapine (SEROquel) tablet 100 mg 100 mg, oral, Nightly, First dose on 03/17/24 at 0201 0251 (Given - Provider: Tad Luna RN)214 (Given - Provider: Ambrose Friedman RN) 2034 (Given - Provider: Marcelladavid Luna RN) scopolamine (TRANSDERM-SCOP) patch 1 patch 1 patch, Topical, Administer over 72 Hours, Every 72 hours, First dose on 03/17/24 at 0201, Apply to hairless area of skin behind the ear. 0254 (Patch Applied - Provider: Tad Luna, RN) 1540 (Due: Patch Removed - Provider: Automatic Discharge Provider - Comment: Time automatically adjusted from order being discontinued) sodium chloride 0.9 % flush 10 mL(Linked Group 2) 10 mL, intravenous, 2 times daily, First dose on 03/17/24 at 0126 0338 (Not Given - Provider: Domonique Rowley RN - Reason: Other - Comment: iv fluids infusing)0817 (Not Given - Provider: Ashlyn Olsen RN - Reason: Other - Comment: fluids infusing)2141 (Given - Provider: Ambrose Friedman RN) 0802 (Given - Provider: Milly Redding RN)2044 (Given - Provider: Marcella Luna RN) 0841 (Given - Provider: Carmen Newell RN) sucralfate (CARAFATE) tablet 1 g 1 g, oral, 4 times daily before meals and nightly, First dose on 03/17/24 at 1630 1616 (Given - Provider: Milly Redding RN)1617 (Given - Provider: Milly Redding RN)2140 (Not Given - Provider: Ambrose Friedman RN - Reason: Patient/Resident/Age nt refused - education provided - Comment: pt stated she dont want it. prolong her QT wave) 0757 (Not Given - Provider: Milly Redding RN - Reason: Patient/Resident/Ag ent refused - education provided )1130 (Not Given - Provider: Milly Redding RN - Reason: Patient/Resident/Ag ent refused - education provided )1538 (Not Given - Provider: Milly Redding RN - Reason: Patient/Resident/Ag ent refused - education provided )2048 (Not Given - Provider: Marcella Luna RN - Reason: Patient/Resident/Ag ent refused - education provided ) 0814 (Not Given - Provider: Carmen Newell RN - Reason: NPO - Comment: pt refusing and pt NPO)1053 (Not Given - Provider: Carmen Newell RN - Reason: NPO - Comment: pt npo and refusing med)1630 (Canceled Entry - Provider: Automatic Discharge Provider - Comment: Automatically canceled at discontinue of medication order) tamsulosin (FLOMAX) 24 hr capsule 0.4 mg 0.4 mg, oral, Nightly, First dose on 03/17/24 at 0201, For oral administration: capsules should be swallowed whole (Do not crush, chew, or open). For tube administration: open capsule and administer with water (granules should NOT be crushed). 0254 (Given - Provider: Tad Luna RN)2140 (Given - Provider: Ambrose Friedman RN) 203 (Given - Provider: Marcella Luna RN) Continuous Medication Order 03/17/2024 03/18/2024 03/19/2024 lactated Ringer's infusion () 125 mL/hr, intravenous, Continuous, Starting on 03/17/24 at 0126, For 16 hours 0240 (New Bag - Provider: Tad Luna RN)0812 (Rate/Dose Verify - Provider: Ashlyn Olsen RN)1138 (Stopped - Provider: Arnold Rivera RN)1330 (Rate/Dose Verify - Provider: Milly Redding RN) lactated Ringer's infusion () 125 mL/hr, intravenous, Continuous, Starting on 03/17/24 at 1330, For 16 hours 1351 (New Bag - Provider: Milly Redding, CHRISTINA)2149 (New Bag - Provider: Ambrose Friedman RN) 0352 (Rate/Dose Verify - Provider: Ambrose Friedman RN)0650 (Stopped - Provider: Ambrose Friedman RN) PRN Medication Order 03/17/2024 03/18/2024 03/19/2024 acetaminophen (TYLENOL) tablet 650 mg 650 mg, oral, Every 4 hours PRN, mild pain, headaches, fever - temperature GREATER than 38 C (100.4 F), Starting on 03/17/24 at 0125 1406 (Given - Provider: Carmen Newell RN) clonazePAM (KlonoPIN) tablet 1 mg 1 mg, oral, 3 times daily PRN, anxiety, Starting on 03/17/24 at 0200, HAZARDOUS Drug Precautions - Low Risk (Category A/NIOSH Group 3) Reproductive Risk Only: - Single pair of ASTM standard D6978 certified chemotherapy gloves - Eye protection (goggles or face shield) required only with a potential for facial contact (i.e. concern for spitting or vomiting of the dose during or after administration) - Staff at reproductive risk (actively trying to conceive, or may be become , and ): chemo certified gown and an N95 respirator required when crushing meds (crushing of tabs allowed only in closed pouches) or opening of capsules only for allowable dosage forms 0919 (Given - Provider: Ana Maria Ryan, RN)1631 (Given - Provider: Milly Redding RN)2142 (Given - Provider: Ambrose Friedman RN) 0204 (Given - Provider: Ambrose Friedman RN)0956 (Given - Provider: Milly Redidng, CHRISTINA)1535 (Given - Provider: Milly Redding RN) 0015 (Given - Provider: Marcella Luna, CHRISTINA)0841 (Given - Provider: Carmen Newell, CHRISTINA) docusate sodium (COLACE) capsule 100 mg 100 mg, oral, 2 times daily PRN, constipation, Starting on 03/18/24 at 0411 0420 (Given - Provider: Ambrose Friedman RN) HYDROmorphone (PF) (DILAUDID) injection 1 mg 1 mg, intravenous, Every 3 hours PRN, severe pain, Starting on 03/17/24 at 0153, FIRST CHOICE MEDICATION FOR SEVERE PAIN (7-10) IF INEFFECTIVE AFTER 30 MIN, PROCEED TO SECOND CHOICE MEDICATION FOR SEVERE PAIN 0552 (Given - Provider: Tad Luna, CHRISTINA)0819 (Given - Provider: Ashlyn Olsen, RN)1157 (Given - Provider: Arnold Rivera, CHRISTINA)1459 (Given - Provider: Milly Redding RN)1806 (Given - Provider: Milly Redding, CHRISTINA)2142 (Given - Provider: Ambrose Friedman RN) 0109 (Given - Provider: Ambrose Friedman RN)2042 (Given - Provider: Marcella Luna, CHRISTINA) HYDROmorphone (PF) injection 0.5 mg 0.5 mg, intravenous, Every 3 hours PRN, moderate pain, Starting on 03/17/24 at 0153, SECOND CHOICE MEDICATION FOR MODERATE PAIN (4-6) 0420 (Given - Provider: Ambrose Friedman RN)0756 (Given - Provider: Milly Redding, RN)1059 (Given - Provider: Milly Redding, RN)1410 (Given - Provider: Milly Redding, CHRISTINA)1702 (Given - Provider: Milly Redding RN) 0142 (Given - Provider: Sarah Costello, CHRISTINA)0440 (Given - Provider: Marcella Luna, CHRISTINA)0841 (Given - Provider: Carmen Newell RN) ondansetron (PF) (ZOFRAN) injection 4 mg(Linked Group 3) 4 mg, intravenous, Every 8 hours PRN, vomiting, nausea, Starting on 03/17/24 at 0125, -ONLY give IV if patient is unable to take orally. -If inadequate response within 30 minutes, proceed to next-line agent or contact provider if no further options ordered. 0819 (Given - Provider: Ashlyn Olsen RN) ondansetron ODT (ZOFRAN-ODT) disintegrating tablet 4 mg(Linked Group 3) 4 mg, oral, Every 8 hours PRN, vomiting, nausea, Starting on 03/17/24 at 0125, -Give IV if patient is unable to take orally. -If inadequate response within 30 minutes, proceed to next-line agent or contact provider if no further options ordered. For ODT tablets: -Do not remove from blister pack until just before administering. -Patient should allow tablet to dissolve on tongue. 0819 (See Alternative - Provider: Ashlyn Olsen RN) oxyCODONE (ROXICODONE) immediate release tablet 15 mg 15 mg, oral, Every 6 hours PRN, moderate pain, Starting on 03/17/24 at 0153, FIRST CHOICE MEDICATION FOR MODERATE PAIN (4-6) IF INEFFECTIVE AFTER 60 MIN, PROCEED TO SECOND CHOICE MEDICATION 0336 (Given - Provider: Domonique Rowley, CHRISTINA)0943 (Given - Provider: Ana Maria Ryan, CHRISTINA)1616 (Given - Provider: Milly Redding, RN) 0006 (Given - Provider: Ambrose Friedman RN)0611 (Given - Provider: Ambrose Friedman, RN)1208 (Given - Provider: Milly Redding, RN)1812 (Given - Provider: Milly Redding, RN) 0015 (Given - Provider: aMrcella Luna, RN)0627 (Given - Provider: Marcella Luna, RN)1403 (Given - Provider: Carmen Newell RN) prochlorperazine (COMPAZINE) injection 10 mg(Linked Group 4) 10 mg, intravenous, Every 6 hours PRN, nausea, vomiting, Starting on 03/17/24 at 0125, 2nd Line Option: -ONLY give IV if patient is unable to take orally. -Give IM if patient does not have IV Access -If inadequate response within 30 minutes, proceed to next-line agent or contact provider if no further options ordered. prochlorperazine (COMPAZINE) suppository 25 mg(Linked Group 4) 25 mg, rectal, Every 12 hours PRN, nausea, vomiting, Starting on 03/17/24 at 0125, 2nd Line Option: -ONLY give TX if patient is unable to take orally and cannot receive IV/IM. -If inadequate response within 30 minutes, proceed to next-line agent or contact provider if no further options ordered. prochlorperazine (COMPAZINE) tablet 10 mg(Linked Group 4) 10 mg, oral, Every 6 hours PRN, nausea, vomiting, Starting on 03/17/24 at 0125, 2nd Line Option: -Give IV or IM if patient is unable to take orally. -If inadequate response within 30 minutes, proceed to next-line agent or contact provider if no further options ordered. sodium chloride 0.9 % flush 10 mL(Linked Group 2) 10 mL, intravenous, As needed, line care, Starting on 03/17/24 at 0125 Linked Groups Order Group 1: hydrocortisone (CORTEF) tablet 10 mgJump to med 10 mg, oral, Daily, First dose on 03/17/24 at 0800 And hydrocortisone (CORTEF) tablet 5 mgJump to med 5 mg, oral, Daily, First dose on 03/17/24 at 1800 Group 2: Insert peripheral IV (CANCELED) STAT, Once, On 03/17/24 at 0126, For 1 occurrence And Maintain IV access (CANCELED) Until discontinued, Starting on 03/17/24 at 0126, Until Specified And Saline lock IV (CANCELED) Routine, Once, On 03/17/24 at 0126, For 1 occurrence And sodium chloride 0.9 % flush 10 mLJump to med 10 mL, intravenous, 2 times daily, First dose on 03/17/24 at 0126 And sodium chloride 0.9 % flush 10 mLJump to med 10 mL, intravenous, As needed, line care, Starting on 03/17/24 at 0125 Group 3: ondansetron ODT (ZOFRAN-ODT) disintegrating tablet 4 mgJump to med 4 mg, oral, Every 8 hours PRN, vomiting, nausea, Starting on 03/17/24 at 0125, -Give IV if patient is unable to take orally. -If inadequate response within 30 minutes, proceed to next-line agent or contact provider if no further options ordered. For ODT tablets: -Do not remove from blister pack until just before administering. -Patient should allow tablet to dissolve on tongue. Or ondansetron (PF) (ZOFRAN) injection 4 mgJump to med 4 mg, intravenous, Every 8 hours PRN, vomiting, nausea, Starting on 03/17/24 at 0125, -ONLY give IV if patient is unable to take orally. -If inadequate response within 30 minutes, proceed to next-line agent or contact provider if no further options ordered. Group 4: prochlorperazine (COMPAZINE) tablet 10 mgJump to med 10 mg, oral, Every 6 hours PRN, nausea, vomiting, Starting on 03/17/24 at 0125, 2nd Line Option: -Give IV or IM if patient is unable to take orally. -If inadequate response within 30 minutes, proceed to next-line agent or contact provider if no further options ordered. Or prochlorperazine (COMPAZINE) injection 10 mgJump to med 10 mg, intravenous, Every 6 hours PRN, nausea, vomiting, Starting on 03/17/24 at 0125, 2nd Line Option: -ONLY give IV if patient is unable to take orally. -Give IM if patient does not have IV Access -If inadequate response within 30 minutes, proceed to next-line agent or contact provider if no further options ordered. Or prochlorperazine (COMPAZINE) suppository 25 mgJump to med 25 mg, rectal, Every 12 hours PRN, nausea, vomiting, Starting on 03/17/24 at 0125, 2nd Line Option: -ONLY give TX if patient is unable to take orally and cannot receive IV/IM. -If inadequate response within 30 minutes, proceed to next-line agent or contact provider if no further options ordered. documented in this encounter Orders Medications Ordered That Law ht Not Have Been Administered Count Last Ordered Date First Ordered Date HYDROmorphone (PF) (DILAUDID ) injection 1 mg 2 03/17/2024 ondansetron ODT (ZOFRAN-ODT) disintegrating tablet 4 mg 1 03/17/2024 oxyCODONE (OxyCONTIN) 12 hr abuse-deterrent tablet 50 mg 1 03/17/2024 prochlorperazine (COMPAZINE) injection 10 mg 1 03/17/2024 prochlorperazine (COMPAZINE) suppository 25 mg 1 03/17/2024 prochlorperazine (COMPAZINE) tablet 10 mg 1 03/17/2024 sodium chloride 0.9 % flush 10 mL 1 025 EKG Orders Without Results Count Last Ordered D ate First Ordered Date ECG 12-LEAD 1 03/17/2024 Consult Count Last Ordered Date First Orde red Date IP CONSULT TO GASTROENTEROLOGY 1 03/17/2024 IP CONSULT TO NUTRITION SERVICES 1 03/17/19 25 Admission Count Last Ordered Date First Orde red Date ADMIT TO INPATIENT 1 03/17/2024 INITIATE OBSERVATION STATUS 03/17/2024 Transfer Count Last Ordered Date First Orde red Date ED TO FLOOR BED REQUEST 1 03/17/2024 Discharge Count Last Ordered Date First Orde red Date DISCHARGE PATIENT 1 03/19/2024 documented in this encounter Care Teams [employer] Helper Relationship Specialty Start Date End Date Lisseth Nassar NP [address] [place] [id number] PCP - General 07/07/21 documented as of this encounter
--- OUTSIDE RECORDS SUMMARY | 2024-04-18 11:29 | XMS_ITS | Encounter Summary ---
Author Organization [facility] Address [address] [place] [address] Care Team Providers Care Communications Attendant Name Role Phone Lisseth Nassar GUIDANCE SERVICES COORDINATOR Primary Care Provider [phone] Reason for Visit * Auth/Cert (Routine) Specialty Diagnoses / Procedures Referred By Contac t Referred To Contact Diagnoses Acute renal failure (CMS/HCC) Procedures [id number] Gabe Coronado MD [address] [place] [address] [facility] Emergency [address] [place] [address] Referral ID Status Reason Start Date Expiration Date Visits Re quested Visits Authorized [id number] 1 1 Encounter Details Date Type Department Care Team (Late st Contact Info) Description 03/19/2024 12:06 PM EST Anesthesia Event [facility] Endoscopy [address] [place] [address] Benigno Knight DO [address] [place] [address] Anesthesia Record Procedure Summary Procedure Name Responsible Anesthesiologist Anesthesia Start Time Anesthesia Stop Time EGD Benigno Knight DO 03/19/24 1206 03/19/24 1218 Events Date Time Event Comment 03/19/2024 1157 1205 In Room 1206 An Start 1206 An Start Data The patient wa s reevaluated immediately before moderate or deep sedation use and before anesthesia induction. 1206 Anesthesia Ready 1218 an stop data 1218 An Stop 1219 Out of Room 1226 Handoff to RN I completed my handoff to the receiving nurse during which we: 1. Identified the patient 2. Identified the responsible provider 3. Reviewed the pertinent medical history 4. Discussed the surgical course 5. Reviewed intra-op anesthesia management and issues during anesthesia 6. Set expectations for post-procedure period 7. Allowed opportunity for questions and acknowledgement of understanding. Meds Name Total propofol (DIPRIVAN) injection 10 mg/mL 1 50 mg lidocaine PF (XYLOCAINE-MPF) local injec tion 2% 30 mg benzocaine (HURRICAINE) mucosal spray 20 % (spray can) 1 spray lactated Ringer's infusion 300 mL * Agents Name O2 * Blood No blood administrations on file. Lines, Drains, and Airways Type Details Placement Removal Peripheral IV Placement Date: 07/06; Placement Time: 1041; Catheter Size: 18 G; Orientation: Anterior, Left, Upper; Location: Arm; Site Prep: Chlorhexidine; Inserted by: ana maria saldaña; Insertion Attempts: 1; Patient Tolerance: Tolerated well; Removal Date: 03/19/24; Removal Time: 1415 03/17/24 1041 by Ana Maria Ryan RN 03/19/24 1415 by Carmen Newell RN documented in this encounter Social History Tobacco Use Types Packs/Day Years [...] on file documented as of this encounter Progress Notes * Luli Salazar CRNA - 03/19/2024 12:47 PM EST Patient: Eboni Tatum Procedure Summary Date: 03/19/24 Room / Location: [facility] Endoscopy Anesthesia Start: 1206 Anesthesia Stop: 1218 Procedure: EGD Diagnosis: (Epigastric abdominal pain) (Nausea with vomiting) Scheduled Providers: Rex Saenz DO; Benigno Knight DO; Luli Salazar CRNA Responsible Provider: Benigno Knight DO Anesthesia Type: MAC ASA Status: 3 Anesthesia Plan: MAC Last Vitals: Vitals Value Taken Time BP 129/90 03/19/24 1241 Temp 03/19/24 1247 Pulse 66 03/19/24 1241 Resp 18 03/19/24 1241 SpO2 100 % 03/19/24 1241 Pain Score: 7 Anesthesia Post Evaluation Patient location during evaluation: PACU Patient participation: complete - patient participated Level of consciousness: awake Pain score: 0 Pain management: adequate Airway patency: patent Anesthetic complications: no Cardiovascular status: acceptable Respiratory status: acceptable Hydration status: acceptable Nausea: No Vomiting: No There were no known notable events for this encounter. * Benigno Knight DO - 03/19/2024 11:47 AM EST 48F history of gastric bypass surgery in 2021, prior lap band surgery, prior sleeve gastrectomy, laparoscopic hiatal hernia repair, GERD, breast reduction surgery, social EtOH use, former obesity, lysis of adhesions surgery, osteoarthritis, knee replacement, nonischemic HFpEF 50-55% documented IBS, adrenal insufficiency on chronic hydrocortisone, anxiety, depression, asthma, chronic abdominal pain, opioid dependence, cannabis use. Presented with nausea and vomiting Relevant Problems /Renal (+) Acute kidney injury (CMS/HCC) (+) Acute renal failure (CMS/HCC) Clinical information reviewed: Tobacco Allergies Meds Problems Med Hx Surg Hx Fam Hx Soc Hx Anesthesia Plan ASA 3 Anesthesia Plan: MAC Anesthesia Risks Discussed dental injury, allergic reaction, serious complications, nausea, pain, corneal abrasion and sore throat Plan Factors Patient is not a current smoker Induction method: N/A Anesthetic plan and risks discussed with patient. Anesthesia Plan discussed with attending. Anesthesia Evaluation Patient summary reviewed History of anesthetic complications Airway Mallampati: II Thyromental distance: < 3 finger breadths Neck ROM: full Dental (+) upper dentures and lower dentures Pulmonary - normal exam breath sounds clear to auscultation (+) asthma (-) COPD, sleep apnea ROS comment: Marijuana twice a week Cardiovascular - normal exam (+) hypertension well controlled, past OH (09/04 NSTEMI type 2) (-) CAD, dysrhythmias, GORDILLO ECG reviewed Rhythm: regular Rate: normal ROS comment: known nonischemic cardiomyopathy, believed likely to be Takotsubo's cardiomyopathy. recently underwent cardiac catheterization in 08/2023 which demonstrated clean coronary arteries Neuro/Psych (-) seizures, TIA, CVA Comments: Spinal stenosis GI/Hepatic/Renal (+) GERD well controlled, chronic renal disease (MELANY resolved, interstisial cystitis) ARF (-) liver disease Endo/Other (-) diabetes mellitus, hypothyroidism Comments: Chronic adrenal insufficiency on corticef. 10 mg given today She is scheduled to have an outpatient MRI to evaluate her pituitary for a cause of her adrenal insufficiency. Anxiety/depression Chronic pain on oxycodone and oxycontin. Marijuana use Abdominal PONV RISK SCORE: 3 Vitals: 03/18/24 1950 03/19/24 0305 03/19/24 0805 03/19/24 1114 BP: (!) 126/92 (!) 155/91 (!) 149/100 BP Location: Right arm Right arm Right arm Patient Position: Sitting Sitting Lying Pulse: 69 77 71 Resp: 19 19 18 Temp: 36.8 ??C (98.3 ??F) 36.7 ??C (98 ??F) 36.2 ??C (97.2 ??F) TempSrc: Temporal Temporal SpO2: 98% 100% 100% Weight: 64.9 kg (143 lb) Height: SpO2 Readings from Last 1 Encounters: 03/19/24 100% WBC Date Value Ref Range Status 03/18/2024 9.2 4.8 - 10.8 K/mcL Final RBC Date Value Ref Range Status 03/18/2024 3.60 (L) 3.80 - 4.80 M/mcL Final Hemoglobin Date Value Ref Range Status 03/18/2024 10.1 (L) 11.5 - 16.0 g/dL Final Hematocrit Date Value Ref Range Status 03/18/2024 31.2 (L) 35.0 - 47.0 % Final Platelets Date Value Ref Range Status 03/18/2024 187 130 - 400 K/mcL Final MCV Date Value Ref Range Status 03/18/2024 86.0 79.0 - 98.0 FL Final Allergies Allergen Reactions Sulfamethoxazole-Trimethoprim Rash Fentanyl Other and Fainting Nsaids (Non-Steroidal Anti-Inflammatory Drug) Other GI bleeding Sertraline Other Other Reaction(s): QT wave change interferes withQT waves of heart changed my QT interval has a computer forensics investigator changed my QT interval has a computer forensics investigator Haloperidol Anxiety Other Reaction(s): Feeling Irritable Morphine Redness around the site Sulfa (Sulfonamide Antibiotics) Rash STOP BANG: No data recorded NPO Status: No data recorded documented in this encounter Plan of Treatment Not on file documented as of this encounter Visit Diagnoses Not on filedocumented in this encounter Administered Medications Inactive Administered Medications - up to 3 most recent administrations Medication Order MAR Action Action Date Dose Rate Site benzocaine (HURRICAINE) 20 % mucosal spray Mouth/Throat, As needed, Starting on Tue03/19/24 at 1206, Anesthesia Intraprocedure Given 03/19/2024 12:06 PM EST 1 spray lactated Ringer's infusion intravenous, Continuous PRN, Starting on Tue03/19/24 at 1208, Anesthesia Intraprocedure New Bag 03/19/2024 12:08 PM EST lidocaine (PF) (XYLOCAINE-MPF) 2 % injection injection, As needed, Starting on Tue03/19/24 at 1208, Anesthesia Intraprocedure Given 03/19/2024 12:08 PM EST 30 mg propofoL (DIPRIVAN) injection intravenous, As needed, Starting on Tue03/19/24 at 1208, Anesthesia Intraprocedure Given 03/19/2024 12:08 PM EST 150 mg documented in this encounter Care Teams Communications Attendant Relationship Specialty Start Date End Date Lisseth Nassar NP [address] [place] [address] PCP - General 07/07/21 documented as of this encounter
== END 2024-04-18 11:13 | disposition home or self-care (01) ==
PROVIDERS: PCP Nurse Practitioner Family; Visit Provider Internal Medicine Nephrology
DX: I10 Essential (primary) hypertension (principal)
CPT/HCPCS: 99214

== ENCOUNTER → 2024-04-18 10:30 | Outpatient (BNVA) | payer MEDICARE, MEDICAID, SELFPAY | PROVIDERS: PCP Nurse Practitioner Family; Visit Provider Internal Medicine Nephrology | DX: I10 Essential (primary) hypertension (principal) | CPT/HCPCS: 99212 ==

== ENCOUNTER 2024-04-25 14:49 | Outpatient (AMB) | payer MEDICARE, MEDICAID, SELFPAY ==
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
[2024-04-25 14:51] VITALS: BP 160/110; PULSE 92; O2SAT 95; BMI 24.5
--- OUTSIDE RECORDS SUMMARY | 2024-04-25 16:03 | XMS_ITS | Clinical Summary ---
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 or dislocation. Mild medialcompartment predominant degenerative change. No joint effusion or focalsoft tissue swelling. -------- FINAL REPORT -------- Dictated By: URBANO MASSEY Dictated Date: 03/16/2024 18:46 ET Assigned Physician: URBANO MASSEY Reviewed and Electronically Signed By: URBANO MASSEY Signed Date: 03/16/2024 18:47 ET Workstation ID: [id number] Transcribed By: Self Edit Transcribed Date: 03/16/2024 18:46 ET us Anil Louis MD IMG XR PROCEDURES Final R esult * XR Chest 2 Views (03/16/2024 6:33 PM EST) Anatomical Region Laterality Modality Body Radiographic Vicenta ging 03/16/2024 6:48 PM EST Impressions 03/16/2024 6:49 PM EST FINDINGS/IMPRESSION: Lungs are clear. ??No pleural effusion or pneumothorax. ??Cardiac silhouette is normal in size. ??Dextroconvex thoracic and levoconvex lumbar curvature. ??No acute displaced fracture. -------- FINAL REPORT -------- Dictated By: URBANO MASSEY Dictated Date: 03/16/2024 18:48 ET Assigned Physician: URBANO MASSEY Reviewed and Electronically Signed By: URBANO MASSEY Signed Date: 03/16/2024 18:49 ET Workstation ID: [id number] Transcribed By: Self Edit Transcribed Date: 03/16/2024 18:48 ET Narrative 03/16/2024 6:49 PM EST XR CHEST 2 VIEWS INDICATION: ??Chest pain TECHNIQUE: XR CHEST 2 VIEWS COMPARISON: 01/08/2024 Procedure Note Urbano Massey MD - 03/16/2024 XR CHEST 2 VIEWS INDICATION: Chest pain TECHNIQUE: XR CHEST 2 VIEWS COMPARISON: 01/08/2024 IMPRESSION: FINDINGS/IMPRESSION: Lungs are clear. No pleural effusion orpneumothorax. Cardiac silhouette is normal in size. Dextroconvexthoracic and levoconvex lumbar curvature. No acute displaced fracture. -------- FINAL REPORT -------- Dictated By: URBANO MASSEY Dictated Date: 03/16/2024 18:48 ET Assigned Physician: RUBANO MASSEY Reviewed and Electronically Signed By: URBANO MASSEY Signed Date: 03/16/2024 18:49 ET Workstation ID: [id number] Transcribed By: Self Edit Transcribed Date: 03/16/2024 18:48 ET Kit Nixon MD IMG XR PROCEDURES Final Result * (ABNORMAL) B-type natriuretic peptide (03/16/2024 2:59 PM EST) BNP 134(H) <=100 pcg/mL LAB CHEMISTRY METHOD 03/16/2024 4:37 PM EST [facility] Blood Venous blood specimen / Unknown Venipuncture / Unknown 03/16/2024 2:59 PM EST 03/16/2024 3:37 PM EST Kit Nixon MD LAB BLOOD ORDERABLES Final Resu lt [facility] [address] [place] [address], from Last 3 Months Insurance MEDICARE MEDICAID - [place] Advance Directives * Full Code - Default [...] currently active code status orders. 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
--- OUTSIDE RECORDS SUMMARY | 2024-04-25 16:03 | XMS_ITS | Clinical Summary ---
Author Organization [facility] Address [address] [place] [address] Care Team Providers Care Supervisor Nutritional Yeast Name Role Phone Unavailable Primary Care Provider [...]
== END 2024-04-25 16:04 | disposition home or self-care (01) ==
PROVIDERS: PCP Nurse Practitioner Family; Visit Provider Student in an Organized Health Care Education/Training Program
DX: R79.89 Other specified abnormal findings of blood chemistry (principal)
CPT/HCPCS: 99205

== ENCOUNTER → 2024-04-25 14:49 | Outpatient (BNVA) | payer MEDICARE, MEDICAID, SELFPAY | PROVIDERS: PCP Nurse Practitioner Family; Visit Provider Student in an Organized Health Care Education/Training Program | DX: R79.89 Other specified abnormal findings of blood chemistry (principal) | CPT/HCPCS: 99202 ==

== ENCOUNTER 2024-05-02 07:47 | Outpatient (REF) | payer MEDICARE, MEDICAID, SELFPAY ==
--- OUTSIDE RECORDS SUMMARY | 2024-05-02 07:50 | XMS_ITS | Clinical Summary ---
Author Organization [facility] Address [address] [place] [address] Phone Care Team Providers Care Associate Counsel Name Role Phone Lisseth Nassar DIGITAL CONTENT PRODUCER Primary Care Provider [phone] Allergies Active Allergy Reactions Criticality Noted Date Comments Fentanyl Other,Fainting 02/09/2022 Haloperidol Anxiety Low 02/15/2022 Other Reaction(s): Feeling Irritable Morphine Low 08/12/2020 Redness around the site Nsaids (Non-Steroidal Anti-Inflammatory Drug) Other 09/08/2020 GI bleeding Sertraline Other 09/08/2020 Other Reaction(s): QT wave change interferes withQT waves of heart changed my QT interval has a claims associate changed my QT interval has a claims associate Sulfa (Sulfonamide Antibiotics) Rash Low 09/08/2020 Sulfamethoxazole-Trimet [...] Encounters Date Type Department Care Team Description 04/30/2024 7:35 PM EST - 04/30/2024 11:59 PM EST Emergency [facility] Emergency [address] [place] [id number] Anemia, unspecified type (Primary Dx) Discharge Disposition: Home or Self Care 03/19/2024 12:06 PM EST Anesthesia Event [facility] Endoscopy [address] [place] [phone] Benigno Knight DO 03/16/2024 6:41 PM EST - 03/19/2024 3:40 PM EST Hospital Encounter [facility] Medical Surgical Unit [address] [place] [phone] Sade Lutz MD Jones, Christopher, MD Nasser, Nada S, MD Surendran, Anupama, MD Acute kidney injury (CMS/HCC) (Primary Dx); Cyclic vomiting syndrome; History of gastric bypass; Cardiac enzymes elevated Discharge Disposition: Home or Self Care from Last 3 Months Surgical History Surgery Date Site/Laterality Comments BREAST REDUCTION PROCEDURE: [place] BREAST REDUCTION LAPAROSCOPIC GASTRIC BANDING PROCEDURE: LAP [...] Irritable bowel syndrome GERD (gastroesophageal reflux disease) Low serum cortisol level Interstitial cystitis ND (myocardial infarction) (CMS/HCC) GI bleed Family History Medical History Relation Name Comments Lung cancer Father Diabetes Mother Heart disease Mother Relation Name Status Comments Father Mother Social History Tobacco Use Types Packs/Day Years Used Date Smoking Tobacco: Never Smokeless Tobacco: Never Alcohol Use Standard Drinks/Week Comments Not Currently 0.8 (1 standard drink = 0.6 oz p ure alcohol) Interpersonal Safety Answer Date Record ed Physical Abuse 03/19/2024 Verbal Abuse 03/19/2024 Comments No Sex and Gender Information Value Date Recorded Sex Assigned at Female 03/16/2024 7:40 PM EST Legal Sex Female 11:01 PM EST Gender Identity Female 03/16/2024 7:40 PM EST Sexual Orientation Straight 03/16/2024 7: 40 PM EST Obstetrics History Last Filed Vital Signs Vital Sign Reading Time Taken Comments Blood Pressure 171/93 04/30/2024 10:42 PM EST Pulse 85 04/30/2024 10:42 PM EST Temperature 36.8 ??C (98.3 ??F) 04/30/2024 10:[address] Respiratory Rate 18 04/30/2024 10:42 PM EST Oxygen Saturation 100% 04/30/2024 10:42 PM EST Inhaled Oxygen Concentration - - Weight 62.6 kg (138 lb) 04/30/2024 7:20 PM EST Height 165.1 cm (5' 5 ) 04/30/2024 7:20 PM EST Body Mass Index 22.96 04/30/2024 7:20 PM EST Plan of Treatment Health Maintenance Due Date Last Done Comments Breast Cancer Screening 1975 Pneumococcal Vaccine: Pediatrics (0 to 5 Years) and At-Risk Patients (6 to 64 Years) (1 of 2 - PCV) 10/05/1995 Cervical Cancer Screening: Pap Smear 1997 Hepatitis [...] history exists Hypertension/CHF/CAD Annual BMP Blood Test 04/30/2025 04/30/2024, 03/18/2024, 03/17/2024, Additional history exists DTaP,Tdap,and Td Vaccines (3 [...] patient's age to complete this topic Meningococcal B Vacine Aged Out No lo nger eligible based on patient's age to complete this topic RSV Immunization Patients Under 20 months Aged Out No longer eligible based on patient's age to complete this topic Varicella Vaccines Aged Out No longer eligible based on patient's age to complete this topic Medical Devices Implanted Type Area Fisheries Enforcement Officer Device Identifier Shelf Expiration Date Model / Serial / Lot Arthroscopy Implants Sports Med Arthroscopy Implants Sports Med Left: Knee Description:LEFT KNEE REPLAC EMENT Procedures Procedure Name Priority Date/Time Associated Diagnosis Comments MCCOY URINE CULTURE TUBE STAT 04/30/19 25 10:34 PM EST URINALYSIS WITH REFLEX MICROSCOPIC AND CULTURE STAT 04/30/2024 10:34 PM EST URINALYSIS WITH REFLEX MICROSCOPIC AND CULTURE STAT 04/30/2024 10:34 PM EST TROPONIN I HIGH SENSITIVITY STAT 04/30/2024 9:42 PM EST XR CHEST 2 VIEWS STAT 04/30/2024 8:28 PM EST ECG 12-LEAD STAT 04/30/2024 8:17 PM EST CORTISOL Add-On 04/30/2024 8:00 PM EST CBC WITH AUTO DIFFERENTIAL STAT 04/30/2024 8:00 PM EST B-TYPE NATRIURETIC PEPTIDE STAT 04/30/2024 8:00 PM EST MAGNESIUM STAT 04/30/2024 8:00 PM EST LIPASE STAT 04/30/2024 8:00 PM EST COMPREHENSIVE METABOLIC PANEL STAT 04/30/2024 8:00 PM EST CBC AND DIFFERENTIAL STAT 04/30/2024 8:00 PM EST TROPONIN I HIGH SENSITIVITY STAT 04/30/2024 8:00 PM EST EGD Routine 03/19/2024 12:19 PM EST TISSUE [...] EST from Last 3 Months Results * Urinalysis with reflex microscopic and culture (04/30/2024 10:34 PM EST) Specific [place]illa Urine 1.011 1.003 - 1.030 LAB URINALYSIS - AUTOMATED METHOD 04/30/2024 10:46 PM [facility] pH, Urine 7.0 5.0 - 8.0 pH LAB URINALYSIS - AUTOMATED METHOD 04/30/2024 10:46 PM [facility] Leukocytes, Urine Negative Negative LAB URINALYSIS - AUTOMATED METHOD 04/30/2024 10:46 PM [facility] Nitrite, Urine Negative Negative LAB URINALYSIS - AUTOMATED METHOD 04/30/2024 10:46 PM [facility] Protein, Urine Negative <=Trace mg/dL LAB URINALYSIS - AUTOMATED METHOD 04/30/2024 10:46 PM [facility] Glucose, Urine Negative Negative mg/dL LAB URINALYSIS - AUTOMATED METHOD 04/30/2024 10:46 PM [facility] Ketones, Urine Negative Negative mg/dL LAB URINALYSIS - AUTOMATED METHOD 04/30/2024 10:46 PM [facility] Urobilinogen, Urine 0.2 0.2 - 1.0 mg/dL LAB URINALYSIS - AUTOMATED METHOD 04/30/2024 10:46 PM [facility] Bilirubin, Urine Negative Negative LAB URINALYSIS - AUTOMATED METHOD 04/30/2024 10:46 PM [facility] Blood, Urine Negative Negative LAB URINALYSIS - AUTOMATED METHOD 04/30/2024 10:46 PM [facility] Urine Urine specimen obtained by clean catch procedure / Unknown Non-blood Collection / Unknown 04/30/2024 10:34 PM EST 04/30/2024 10:40 PM EST Brenda DELATORRE LAB URINE ORDERABLES Final Result Performing Organization Address City/[facility]/ZIP Co de Phone Number [facility] [address] [place] [address], [place] [phone] * Mccoy urine culture tube (04/30/2024 10:34 PM EST) Extra Tube Hold for add-ons. 05/01/2024 12:[address] [facility] Comment:Auto resulted. Urine Urine specimen obtained by clean catch procedure / Unknown Non-blood Collection / Unknown 04/30/2024 10:34 PM EST 04/30/2024 10:40 PM EST Brenda DELATORRE LAB URINE ORDERABLES Final Result Performing Organization Address City/[facility]/ZIP Co de Phone Number [facility] [address] [place] [address], [place] [phone] * Troponin I high sensitivity (04/30/2024 9:42 PM EST) Only the most recent of6 resultswithin the time period is included. High Sensitivity Troponin I 4 <=54 ng/L LAB CHEMISTRY METHOD 04/30/2024 10:[address] [facility] Blood Venous blood specimen / Unknown Venipuncture / Unknown 04/30/2024 9:42 PM EST 04/30/2024 10:[address] [facility] - 04/30/2024 10:35 PM EST High levels of biotin in samples may falsely decrease hsTroponin values. ??Use caution when interpreting hsTroponin results in patients taking biotin who exhibit renal impairment (eGFR <60) or in patients taking more than 20 mg/day of biotin. us Edgardo Cervantes DO LAB BLOOD ORDERABLES Final Res ult [facility] [address] [place] [address], * XR Chest 2 Views (04/30/2024 8:28 PM EST) Only the most recent of2 resultswithin the time period is included. Anatomical Region Laterality Modality Body Radiographic Vicenta ging 05/01/2024 8:38 AM EST Impressions 05/01/2024 8:41 AM EST No acute pulmonary disease. No change since 03/16/2024. Code 65688 -------- FINAL REPORT -------- Dictated By: Paras Weeks Dictated Date: 05/01/2024 08:38 ET Assigned Physician: Paras Weeks Reviewed and Electronically Signed By: Paras Weeks Signed Date: 05/01/2024 08:41 ET Workstation ID: [id number] Transcribed By: Self Edit Transcribed Date: 05/01/2024 08:38 ET Narrative 05/01/2024 8:41 AM EST HISTORY: The patient is a 48-year-old female with chest pain. FINDINGS: PA and lateral radiographs of the chest demonstrate mild dextroscoliosis of the thoracolumbar spine as also seen on the prior study performed 03/16/2024. The cardiac and mediastinal contours are within normal limits. The lungs and costophrenic angles are clear. Surgical clips and sutures are again seen in the abdominal left upper quadrant. Procedure Note Paras Weeks MD - 05/01/2024 HISTORY: The patient is a 48-year-old female with chest pain. FINDINGS: PA and lateral radiographs of the chest demonstrate milddextroscoliosis of the thoracolumbar spine as also seen on the prior studyperformed 03/16/2024. The cardiac and mediastinal contours are within normallimits. The lungs and costophrenic angles are clear. Surgical clips and sutures are again seen in the abdominal left upperquadrant. IMPRESSION: No acute pulmonary disease. No change since 03/16/2024. Code 17311 -------- FINAL REPORT -------- Dictated By: Paras Weeks Dictated Date: 05/01/2024 08:38 ET Assigned Physician: Paras Weeks Reviewed and Electronically Signed By: Paras Weeks Signed Date: 05/01/2024 08:41 ET Workstation ID: [id number] Transcribed By: Self Edit Transcribed Date: 05/01/2024 08:38 ET Edgardo Cervantes DO IMG XR PROCEDURES Final Result * ECG 12 lead (04/30/2024 8:17 PM EST) Only the most recent of5 resultswithin the time period is included. Ventricular Rate ECG 80 BPM GEMUSE Atrial Rate 80 BPM GEMUSE P-R Interval 198 ms GEMUSE QRS Duration 76 ms GEMUSE Q-T Interval 396 ms GEMUSE QTc 456 ms GEMUSE P Wave [place] 32 degrees GEMUSE R [place] 2 degrees GEMUSE T [place] 24 degrees GEMUSE ECG Interpretation Normal sinus rhythm Normal ECG When compared with ECG of 18-MAR-2024 06:00, T wave amplitude has decreased in Lateral leads Confirmed by Nahid SMITH JOHN ([id number]) on 05/01/2024 7:50:24 AM GEMUSE 04/30/2024 8:17 PM EST 05/01/2024 7:50 AM EST Edgardo Cervantes DO ECG ORDERABLES Final Result GEMUSE * (ABNORMAL) CBC auto differential (04/30/2024 8:00 PM EST) Only the most recent of4 resultswithin the time period is included. WBC 7.6 4.8 - 10.8 K/mcL LAB HEMETOLOGY METHOD 04/30/2024 8:37 PM [facility] RBC 3.50(L) 3.80 - 4.80 M/mcL LAB HEMETOLOGY METHOD 04/30/2024 8:37 PM [facility] Hemoglobin 9.7(L) 11.5 - 16.0 g/dL LAB HEMETOLOGY METHOD 04/30/2024 8:37 PM [facility] Hematocrit 28.7(L) 35.0 - 47.0 % LAB HEMETOLOGY METHOD 04/30/2024 8:37 PM [facility] MCV 82.5 79.0 - 98.0 FL LAB HEMETOLOGY METHOD 04/30/2024 8:37 PM [facility] MCH 27.9 27.0 - 32.0 pcg LAB HEMETOLOGY METHOD 04/30/2024 8:37 PM [facility] MCHC 33.8 32.0 - 37.0 g/dL LAB HEMETOLOGY METHOD 04/30/2024 8:37 PM [facility] RDW 16.4(H) 11.0 - 15.0 % LAB HEMETOLOGY METHOD 04/30/2024 8:37 PM [facility] Platelets 304 130 - 400 K/mcL LAB HEMETOLOGY METHOD 04/30/2024 8:37 PM [facility] MPV 9.1 7.0 - 11.0 FL LAB HEMETOLOGY METHOD 04/30/2024 8:37 PM [facility] NRBC 0.0 <1.0 % LAB HEMETOLOGY METHOD 04/30/2024 8:37 PM [facility] NRBC Absolute 0.00 <0.10 K/mcL LAB HEMETOLOGY METHOD 04/30/2024 8:37 PM [facility] Neutrophils Relative 49.9 % LAB HEMETOLOGY METHOD 04/30/2024 8:37 PM [facility] Lymphocytes Relative 39.1 % LAB HEMETOLOGY METHOD 04/30/2024 8:37 PM [facility] Monocytes Relative 9.9 % LAB HEMETOLOGY METHOD 04/30/2024 8:37 PM [facility] Eosinophils Relative 0.3 % LAB HEMETOLOGY METHOD 04/30/2024 8:37 PM [facility] Basophils Relative 0.5 % LAB HEMETOLOGY METHOD 04/30/2024 8:37 PM [facility] Immature Granulocytes Relative 0.3 % LAB HEMETOLOGY METHOD 04/30/2024 8:37 PM [facility] Neutrophils Absolute 3.81 1.50 - 7.00 K/mcL LAB HEMETOLOGY METHOD 04/30/2024 8:37 PM [facility] Lymphocytes Absolute 2.99 1.00 - 5.00 K/mcL LAB HEMETOLOGY METHOD 04/30/2024 8:37 PM [facility] Monocytes Absolute 0.76 0.20 - 1.00 K/mcL LAB HEMETOLOGY METHOD 04/30/2024 8:37 PM [facility] Eosinophils Absolute 0.02 0.00 - 0.50 K/mcL LAB HEMETOLOGY METHOD 04/30/2024 8:37 PM [facility] Basophils Absolute 0.04 0.00 - 0.20 K/mcL LAB HEMETOLOGY METHOD 04/30/2024 8:[address] [facility] Immature Granulocytes Absolute 0.02 0.00 - 0.03 K/[facility] LAB HEMETOLOGY METHOD 04/30/2024 8:[address] [facility] Blood Venous blood specimen / Unknown Venipuncture / Unknown 04/30/2024 8:00 PM EST 04/30/2024 8:31 PM EST Edgardo Cervantes DO LAB BLOOD ORDERABLES Final Res ult Performing Organization Address City/[facility]/ZIP Co de Phone Number [facility] [address] [place] [address], [place] [phone] * B-type natriuretic peptide (04/30/2024 8:00 PM EST) Only the most recent of2 resultswithin the time period is included. BNP 30 <=100 pcg/mL LAB CHEMISTRY METHOD 04/30/2024 9:[address] [facility] Blood Venous blood specimen / Unknown Venipuncture / Unknown 04/30/2024 8:00 PM EST 04/30/2024 8:30 PM EST us Edgardo Cervantes DO LAB BLOOD ORDERABLES Final Res ult Performing Organization Address City/[facility]/ZIP Co de Phone Number [facility] [address] [place] [address], [place] [phone] * Magnesium (04/30/2024 8:00 PM EST) Only the most recent of3 resultswithin the time period is included. Magnesium 2.0 1.9 - 2.6 mg/dL LAB CHEMISTRY METHOD 04/30/2024 9:[address] [facility] Blood Venous blood specimen / Unknown Venipuncture / Unknown 04/30/2024 8:00 PM EST 04/30/2024 8:30 PM EST Edgardo Cervantes DO LAB BLOOD ORDERABLES Final Res ult Performing Organization Address [facility] Co de Phone Number [facility] [address] [place] [address], [place] [phone] * Lipase (04/30/2024 8:00 PM EST) Only the most recent of4 resultswithin the time period is included. Lipase 34 13 - 75 unit/L LAB CHEMISTRY METHOD 04/30/2024 9:[address] [facility] Blood Venous blood specimen / Unknown Venipuncture / Unknown 04/30/2024 8:00 PM EST 04/30/2024 8:30 PM EST Edgardo Cervantes DO LAB BLOOD ORDERABLES Final Res ult Performing Organization Address [facility] de Phone Number [facility] [address] [place] [address], [place] [phone] * Cortisol (04/30/2024 8:00 PM EST) Cortisol 4.3 mcg/dL LAB CHEMISTRY METHOD 04/30/2024 9:[address] [facility] Blood Venous blood specimen / Unknown Venipuncture / Unknown 04/30/2024 8:00 PM EST 04/30/2024 8:[address] [facility] - 04/30/2024 9:44 PM EST CORTISOL REFERENCE RANGE ?? 8 AM SPEC: ??5.0-23.0 mcg/dL ?? 4 PM SPEC: ??3.0-16.0 mcg/dL ?? 8 PM SPEC: ??<5.0 mcg/dL Brenda DELATORRE LAB BLOOD ORDERABLES Final Result Performing Organization Address City/[facility] Co de Phone Number [facility] [address] [place] [address], [place] [phone] * Comprehensive metabolic panel (04/30/2024 8:00 PM EST) Only the most recent of3 resultswithin the time period is included. Sodium 140 133 - 145 mmol/L LAB CHEMISTRY METHOD 04/30/2024 9:16 PM [facility] Potassium 3.8 3.5 - 5.5 mmol/L LAB CHEMISTRY METHOD 04/30/2024 9:16 PM [facility] Chloride 109 96 - 110 mmol/L LAB CHEMISTRY METHOD 04/30/2024 9:16 PM [facility] CO2 24 21 - 32 mmol/L LAB CHEMISTRY METHOD 04/30/2024 9:16 PM [facility] Anion Gap 7 3 - 11 LAB CHEMISTRY METHOD 04/30/2024 9:16 PM [facility] Glucose 84 70 - 100 mg/dL LAB CHEMISTRY METHOD 04/30/2024 9:16 PM [facility] BUN 9 5 - 25 mg/dL LAB CHEMISTRY METHOD 04/30/2024 9:16 PM [facility] Creatinine 0.67 0.50 - 1.10 mg/dL LAB CHEMISTRY METHOD 04/30/2024 9:16 PM [facility] eGFR 109 >=60 mL/min/1. 73m2 LAB CHEMISTRY METHOD 04/30/2024 9:16 PM [facility] Comment:Calculation based on the??Chronic Kidney Disease Epidemiology Collaboration (CKD-EPI) equation refit??without adjustment for race. BUN/Creatinine Ratio 13.4 LAB CHEMISTRY METHOD 04/30/2024 9:16 PM [facility] Calcium 8.9 8.5 - 10.5 mg/dL LAB CHEMISTRY METHOD 04/30/2024 9:16 PM [facility] AST (SGOT) 13 10 - 42 unit/L LAB CHEMISTRY METHOD 04/30/2024 9:[address] [facility] ALT (SGPT) 20 10 - 60 unit/L LAB CHEMISTRY METHOD 04/30/2024 9:[address] [facility] Alkaline Phosphatase 77 42 - 121 unit/L LAB CHEMISTRY METHOD 04/30/2024 9:16 PM [facility] Total Protein 7.0 6.0 - 8.0 g/dL LAB CHEMISTRY METHOD 04/30/2024 9:[address] [facility] Albumin 3.5 3.2 - 5.0 g/dL LAB CHEMISTRY METHOD 04/30/2024 9:16 PM [facility] Total Bilirubin 0.3 0.0 - 1.4 mg/dL LAB CHEMISTRY METHOD 04/30/2024 9:[address] [facility] Blood Venous blood specimen / Unknown Venipuncture / Unknown 04/30/2024 8:00 PM EST 04/30/2024 8:30 PM EST us Edgardo Cervantes DO LAB BLOOD ORDERABLES Final Res ult [facility] [address] [place] [address], * EGD Anesthesia - MAC; [facility] ENDOSCOPY (03/19/2024 12:19 PM EST) Anatomical Region Laterality Modality Endoscopy 03/19/2024 12:0 4 PM EST Impressions 03/19/2024 12:21 PM EST - Normal esophagus. ? - Normal examined jejunum. ? - Gastric bypass. ? - Erythematous mucosa in the stomach. Biopsied. Clip ? was placed. 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 Recommendation: ?- Discharge patient to home. ? - Resume previous diet. ? - Continue present medications. ? - Await pathology results. ? - Bleeding from gastric biopsy site treated with an ? endoclip as the bleeding would not stop spontaneously. ? - Coagulation profile ? - Marijuana cessation recommended. ? - F/U with primary GI doctor at [facility]. Narrative 03/19/2024 12:21 PM EST [facility] GI Patient Name: Eboni Tatum Procedure Date: 03/19/2024 12:04 PM Date of : 1975 Age: 48 Gender: Female Note Status: Finalized Attending MD: Jesse Saenz DO, [id number] Procedure Date No Time: 03/19/2024 Procedure: ? [...] physician, the nurse, the ? anesthesiologist, the pet trainer and the dialysis technician ? in the pre-procedure area in [...] hemostatic clip was successfully placed. Clip ? data miner: [employer]. There was no bleeding ? at the end of the procedure. Estimated blood loss was ? minimal. Procedure Code(s): ? --- Professional --- ? 65344, 59, Esophagogastroduodenoscopy, flexible, ? transoral; with control of bleeding, any method ? 65624, Esophagogastroduodenoscopy, flexible, ? transoral; with biopsy, single or multiple Diagnosis Code(s): ? --- Professional --- ? Z98.84, Bariatric surgery status ? K31.89, Other diseases of stomach and duodenum ? R10.13, Epigastric pain ? R11.2, Nausea with vomiting, unspecified CPT copyright 2020 [employer]. All rights reserved. The codes documented in this report are preliminary and upon supervisor sewer system review may be revised to meet current compliance requirements. JESSE Saenz DO 03/19/2024 12:21:51 PM This report has been signed electronically.Jesse Saenz DO Number of Addenda: 0 Note Initiated On: 03/19/2024 12:04 PM Scope In: Scope Out: ? Endoscopy Department at [facility] - [address] [place] [address], ? [place] [address] Procedure Note Jesse Saenz DO - 03/19/2024 [facility] GI Patient Name: Eboni Tatum Procedure Date: 03/19/2024 12:04 PM Date of : 1975 Age: 48 Gender: Female Note Status: Finalized Attending MD: Jesse Saenz DO, [id number] Procedure Date No Time: 03/19/2024 Procedure: Upper [...] the physician, the nurse, the anesthesiologist, the pet trainer and thetechnician in the pre-procedure area in [...] hemostasis,one hemostatic clip was successfully placed. Clip data miner: [employer]. There was nobleeding at the end of the procedure. Estimated blood losswas minimal. Procedure Code(s): --- Professional --- 10291, 59, Esophagogastroduodenoscopy, flexible, transoral; with control of bleeding, any method 62632, Esophagogastroduodenoscopy, flexible, transoral; with biopsy, single or multiple Diagnosis Code(s): --- Professional --- Z98.84, Bariatric surgery status K31.89, Other diseases of stomach and duodenum R10.13, Epigastric pain R11.2, Nausea with vomiting, unspecified CPT copyright 2020 [employer]. All rights reserved. The codes documented in this report are preliminary and upon supervisor sewer system reviewmay be revised to meet current compliance requirements. JESSE Saenz DO 03/19/2024 12:21:51 PM This report has been signed electronically.Jesse Saenz DO Number of Addenda: 0 Note Initiated On: 03/19/2024 12:04 PM Scope In: Scope Out: Endoscopy Department at [facility] - [address] [place] [id number] IMPRESSION: - Normal esophagus. - Normal examined jejunum. - Gastric bypass. - Erythematous mucosa in the stomach. Biopsied.Clip was placed. 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 Recommendation: - Discharge patient to home. - Resume previous diet. - Continue present medications. - Await pathology results. - Bleeding from gastric biopsy site treated with an endoclip as the bleeding would not stopspontaneously. - Coagulation profile - Marijuana cessation recommended. - F/U with primary GI doctor at [facility]. Jesse Saenz DO GI~PROCEDURE ORDERABLES Final Re sult * Tissue exam (03/19/2024 12:13 PM EST) Final Diagnosis Stomach, biopsy: Gastric antral and oxyntic-type mucosa with minimal chronic inflammation. No active gastritis and no intestinal metaplasia identified. No Helicobacter pylori identified on hematoxylin and eosin stained sections. 03/20/2024 11:19 AM EST [facility] Gross Description A. Stomach, biopsies, gastric: Labeled stomach biopsies . Received in formalin are three irregular morley mucosal tissue fragments, ranging from 0.3 cm to 0.6 cm in greatest dimension, which are wrapped in paper and submitted in toto in one cassette, three pieces, multiple levels on one slide. ABDOUL 03/20/2024 11:[address] [facility] Disclaimer Unless otherwise specified, all tissue is 10% NB formalin fixed and paraffin embedded. 03/20/2024 11:19 AM [facility] Tissue Stomach structure / Unknown 03/19/2024 12:13 PM EST 03/19/2024 12:58 PM EST Jesse Saenz DO LAB PATHOLOGY ORDERABLES Final R esult Performing Organization Address City/[facility]/ZIP Co de Phone Number [facility] [address] [place] [address], [place] [phone] * ECG-Annotated (03/19/2024) Provider Onbase ECG ORDERABLES Final Result * Prothrombin time with INR (03/18/2024 6:25 AM EST) Pathologist [facility] Protime 10.6 10.6 - 13.9 sec LAB COAGULATION METHOD 03/18/2024 8:03 AM [facility] INR 0.9 LAB COAGULATION METHOD 03/18/2024 8:03 AM [facility] Blood Venous blood specimen / Unknown Venipuncture / Unknown 03/18/2024 6:25 AM EST 03/18/2024 7:16 AM EST Derrick Severino MD LAB BLOOD ORDERABLES Final Resu lt [facility] [address] [place] [address], [place] [phone] * C-reactive protein (03/18/2024 6:24 AM EST) C-Reactive Protein <0.29 <=0.50 mg/dL LAB CHEMISTRY METHOD 03/18/2024 8:[address] [facility] Blood Venous blood specimen / Unknown Venipuncture / Unknown 03/18/2024 6:24 AM EST 03/18/2024 7:15 AM EST us Derrick Severino MD LAB BLOOD ORDERABLES Final Resu lt Performing Organization Address [facility] Co de Phone Number [facility] [address] [place] [address], [place] [phone] * (ABNORMAL) Phosphorus (03/18/2024 6:24 AM EST) Phosphorus 2.3(L) 2.5 - 4.5 mg/dL LAB CHEMISTRY METHOD 03/18/2024 8:[address] [facility] Blood Venous blood specimen / Unknown Venipuncture / Unknown 03/18/2024 6:24 AM EST 03/18/2024 7:15 AM EST us Derrick Severino MD LAB BLOOD ORDERABLES Final Resu lt Performing Organization Address [facility] de Phone Number [facility] [address] [place] [address], [place] [phone] * XR Abdomen 1 View (03/17/2024 11:44 [...] Signed Date: 03/17/2024 11:56 ET Workstation ID: [id number] Transcribed By: Self Edit Transcribed Date: 03/17/2024 [...] Signed Date: 03/17/2024 11:56 ET Workstation ID: [id number] Transcribed By: Self Edit Transcribed Date: 03/17/2024 11:55 ET Derrick Severino MD IMG XR PROCEDURES Final Result * (ABNORMAL) Basic metabolic panel (03/17/2024 5:34 AM EST) Only the most recent of2 resultswithin the time period is included. Sodium 133 133 - 145 mmol/L LAB CHEMISTRY METHOD 03/17/2024 6:27 AM [facility] Potassium 4.2 3.5 - 5.5 mmol/L LAB CHEMISTRY METHOD 03/17/2024 6:27 AM [facility] Comment:Hemolysis present Chloride 101 96 - 110 mmol/L LAB CHEMISTRY METHOD 03/17/2024 6:27 AM [facility] CO2 28 21 - 32 mmol/L LAB CHEMISTRY METHOD 03/17/2024 6:27 AM [facility] Anion Gap 4 3 - 11 LAB CHEMISTRY METHOD 03/17/2024 6:27 AM [facility] Glucose 129(H) 70 - 100 mg/dL LAB CHEMISTRY METHOD 03/17/2024 6:27 AM [facility] BUN 29(H) 5 - 25 mg/dL LAB CHEMISTRY METHOD 03/17/2024 6:27 AM [facility] Creatinine 1.80(H) 0.50 - 1.10 mg/dL LAB CHEMISTRY METHOD 03/17/2024 6:27 AM [facility] eGFR 35(L) >=60 mL/min/1. 73m2 LAB CHEMISTRY METHOD 03/17/2024 6:27 AM [facility] Comment:Calculation based on the??Chronic Kidney Disease Epidemiology Collaboration (CKD-EPI) equation refit??without adjustment for race. BUN/Creatinine Ratio 16.1 LAB CHEMISTRY METHOD 03/17/2024 6:27 AM [facility] Calcium 8.7 8.5 - 10.5 mg/dL LAB CHEMISTRY METHOD 03/17/2024 6:27 AM [facility] Blood Venous blood specimen / Unknown Venipuncture / Unknown 03/17/2024 5:34 AM EST 03/17/2024 5:46 AM EST us Gabe Coronado MD LAB BLOOD ORDERABLES Final Result [facility] [address] [place] [address], * Urinalysis with reflex microscopic (03/17/2024 4:06 AM EST) Specific [place] Urine 1.009 1.003 - 1.030 LAB URINALYSIS - AUTOMATED METHOD 03/17/2024 4:36 AM [facility] pH, Urine 5.5 5.0 - 8.0 pH LAB URINALYSIS - AUTOMATED METHOD 03/17/2024 4:36 AM [facility] Leukocytes, Urine Negative Negative LAB URINALYSIS - AUTOMATED METHOD 03/17/2024 4:36 AM [facility] Nitrite, Urine Negative Negative LAB URINALYSIS - AUTOMATED METHOD 03/17/2024 4:36 AM [facility] Protein, Urine Trace <=Trace mg/dL LAB URINALYSIS - AUTOMATED METHOD 03/17/2024 4:36 AM [facility] Glucose, Urine Negative Negative mg/dL LAB URINALYSIS - AUTOMATED METHOD 03/17/2024 4:36 AM [facility] Ketones, Urine Negative Negative mg/dL LAB URINALYSIS - AUTOMATED METHOD 03/17/2024 4:36 AM [facility] Urobilinogen, Urine 0.2 0.2 - 1.0 mg/dL LAB URINALYSIS - AUTOMATED METHOD 03/17/2024 4:36 AM [facility] Bilirubin, Urine Negative Negative LAB URINALYSIS - AUTOMATED METHOD 03/17/2024 4:36 AM [facility] Blood, Urine Negative Negative LAB URINALYSIS - AUTOMATED METHOD 03/17/2024 4:36 AM [facility] Urine Urine specimen obtained by clean catch procedure / Unknown Non-blood Collection / Unknown 03/17/2024 4:06 AM EST 03/17/2024 4:25 AM EST us Gabe Coronado MD LAB URINE ORDERABLES Final Result [facility] [address] [place] [address], * Sodium, urine, random (03/17/2024 4:06 AM EST) Sodium, Ur 19 mmol/L LAB CHEMISTRY METHOD 03/17/2024 4:54 AM [facility] Urine Urine specimen obtained by clean catch procedure / Unknown Non-blood Collection / Unknown 03/17/2024 4:06 AM EST 03/17/2024 4:25 AM EST us Gabe Coronado MD LAB URINE ORDERABLES Final Result Performing Organization Address [facility]/ZIP Co de Phone Number [facility] [address] [place] [address], [place] [phone] * Protein, urine, random (03/17/2024 4:06 AM EST) Protein, Urine 20 mg/dL LAB CHEMISTRY METHOD 03/17/2024 4:[address] [facility] Urine Urine specimen obtained by clean catch procedure / Unknown Non-blood Collection / Unknown 03/17/2024 4:06 AM EST 03/17/2024 4:25 AM EST us Gabe Coronado MD LAB URINE ORDERABLES Final Result Performing Organization Address [facility] Co de Phone Number [facility] [address] [place] [address], [place] [phone] * HCG qualitative, urine (03/17/2024 4:06 AM EST) Preg Test, Ur Negative Negative 03/17/2024 4:[address] [facility] Urine Urine specimen obtained by clean catch procedure / Unknown Non-blood Collection / Unknown 03/17/2024 4:06 AM EST 03/17/2024 4:25 AM EST us Gabe Coronado MD LAB URINE ORDERABLES Final Result Performing Organization Address City/[facility]/ZIP Co de Phone Number [facility] [address] [place] [address], [place] [phone] * Creatinine, urine, random (03/17/2024 4:06 AM EST) Creatinine, Urine 77.0 mg/dL LAB CHEMISTRY METHOD 03/17/2024 4:54 AM EST [facility] Urine Urine specimen obtained by clean catch procedure / Unknown Non-blood Collection / Unknown 03/17/2024 4:06 AM EST 03/17/2024 4:25 AM EST us Gabe Coronado MD LAB URINE ORDERABLES Final Result [facility] ([facility] [address] [place] [address], [place] [phone] * [place] Retroperitoneal Complete (03/17/2024 2:05 AM [...] has been electronically signed by: Tristin Mcmillan MDon 03/17/2024 02:34:03 us Gabe Coronado MD IMG US PROCEDURES Final Res ult * ECG-Outside (03/17/2024) Provider Onbase ECG ORDERABLES Final Result * [...] Signed Date: 03/16/2024 18:47 ET Workstation ID: [id number] Transcribed By: Self Edit Transcribed Date: 03/16/2024 [...] Signed Date: 03/16/2024 18:47 ET Workstation ID: [id number] Transcribed By: Self Edit Transcribed Date: 03/16/2024 18:46 ET us Anil Louis MD IMG XR PROCEDURES Final R esult from Last 3 Months Insurance MEDICARE MEDICAID [...] currently active code status orders. Care Teams Associate Counsel Relationship Specialty Start Date End Date Lisseth Nassar NP [address] [place] [id number] PCP - General 07/07/21
--- OUTSIDE RECORDS SUMMARY | 2024-05-02 07:50 | XMS_ITS | Clinical Summary ---
Author Organization [facility] Address [address] [place] [address] Care Team Providers Care Tester [employer] Name Role Phone Unavailable Primary Care Provider [...]
--- OUTSIDE RECORDS SUMMARY | 2024-05-02 07:50 | XMS_ITS | Encounter Summary ---
Author Organization [employer] [facility] Address [address] [place] [address] Care Team Providers Care Lehr Operator Name Role Phone Lisseth Nassar CLINICAL MASSAGE THERAPIST Primary Care Provider [phone] Reason for Visit * Reason Comments Shortness of Breath NAUSEA WEAKNESS SOB TODAY STARTED EXPERIENCING CHEST PAIN. H/X RENAL INJURY ADRENAL INSUFF, CYSTITIS, NM, GASTRIC BYPASS Chest Pain Encounter Details Date Type Department Care Team (Late st Contact Info) Description 04/30/2024 7:35 PM EST - 04/30/2024 11:59 PM EST Emergency [facility] Emergency [address] [place] [phone] Anemia, unspecified type (Primary Dx) Discharge Disposition: Home or Self Care Social [...] Orientation Straight 03/16/2024 7: 40 PM EST documented as of this encounter Last Filed [...] Mass Index 22.96 04/30/2024 7:20 PM EST documented in this encounter Discharge Instructions * Discharge Instructions* JUAN RAMON Connors - 04/30/2024 11:18 PM EST Your hemoglobin is 9.7 and hematocrit is 28.7. 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 Continue taking your medications as previously prescribed and stay very well hydrated with water. Follow up with your primary provider. Call tomorrow for appointment. Return to Emergency Department if symptoms worsen, do not improve, or any other concern. Get well soon! Thank you for coming to the [facility] Emergency Department today. Our entire team works together to provide you with the best care possible. Examination and treatment you received in the emergency department has been rendered on an EMERGENCY basis only. It is not intended to be a substitute for or an effort to provide complete medical care. You should follow-up with your primary care provider. Please report to your physician any new or remaining problems, because it is impossible to recognize and treat all elements of injury or illness in a single emergency department visit. In the event that you're unable to obtain a followup appointment in a timely fashion, OR you are not getting any better, OR you are getting worse, OR you develop any symptoms of concern, please return here immediately for further evaluation. The emergency department is open 24 hours a day, 7 days aweek. Your discharge report is based on information that was available when you were in the emergency department. If you do not have a primary care provider, please contact one of the following to make arrangements to follow up. [facility]wia Kami Sylwia Lauro * Attachments The following attachments cannot be sent through Care Everywhere. * Anemia (Dominican) documented in this encounter Medications at Time of Discharge carvediloL (COREG) 12.5 mg tablet Take 1 tablet (12.5 mg total) by mouth 2 (two) times a day. clonazePAM (KlonoPIN) 1 mg tablet Take 1 tablet (1 mg total) by mouth 3 (three) times a day if needed for anxiety. Max Daily Amount: 3 mg estradioL (ESTRACE) 0.01 % (0.1 mg/gram) vaginal cream Insert 1 g into the vagina 3 (three) times a week. 10/25/2023 fesoterodine 4 mg tablet extended release 24 hr Take 1 tablet by mouth 1 (one) time each day. hydrocortisone (CORTEF) 5 mg tablet Take 1-2 tablets (5-10 mg total) by mouth 2 (two) times a day. TAKE 2 TABLETS AT 8 AM AND TAKE 1 TABLET 6PM 02/27/2024 hydrOXYzine pamoate (VISTARIL) 25 mg capsule Take 1 capsule (25 mg total) by mouth at bedtime. nortriptyline (PAMELOR) 25 mg capsule Take 2 capsules (50 mg total) by mouth 1 (one) time each day. 02/28/2024 oxyCODONE (ROXICODONE) 15 mg immediate release tablet Take 1 tablet (15 mg total) by mouth every 8 (eight) hours if needed. Max Daily Amount: 45 mg 03/15/2024 QUEtiapine (SEROquel) 100 mg tablet Take 1 tablet (100 mg total) by mouth at bedtime. scopolamine (TRANSDERM-SCOP) 1 mg over 3 days patch 3 day Apply 1 patch topically every 3rd (third) day. 02/16/2022 spironolactone (ALDACTONE) 25 mg tablet Take 0.5 tablets (12.5 mg total) by mouth 1 (one) time each day. 03/06/2024 tamsulosin (FLOMAX) 0.4 mg 24 hr capsule Take 1 capsule (0.4 mg total) by mouth at bedtime. Xtampza ER 18 mg capsule,sprinkle ,ER 12hr tmprr Take 54 mg by mouth 2 (two) times a day. Max Daily Amount: 108 mg 03/15/2024 zolpidem (AMBIEN) 5 mg tablet Take 1 tablet (5 mg total) by mouth at bedtime as needed for sleep. Max Daily Amount: 5 mg 07/10/2021 documented as of this encounter Discharge Disposition Disposition Code Departure Means Destination Comment s Home or Self Care documented in this encounter Progress Notes * Christiana Bautista RN - 04/30/2024 7:26 PM EST Pt states she feels weak and fatigue x3 days, symptoms worsening. Pt state she has a hx of low cortisol levels and was told to come to the ER right away for possible adrenal crisis. Pt also states she had mid sternal CP earlier and states a NM hx, states she took one baby aspirin at home and EMS gave her another 3 on route. * Juan Alberto Rich RN - 04/30/2024 7:09 PM EST CHEST PAIN FREE UPON ARRIVAL TO ER AFTER EMS GAVE ASA PT REPORTS SOB AND DIZZY Juan Alberto Rich RN 04/30/24 191 * Juan Alberto Rich RN - 04/30/2024 7:06 PM EST NAUSEA WEAKNESS SOB TODAY STARTED EXPERIENCING CHEST PAIN. H/X RENAL INJURY ADRENAL INSUFF, CYSTITIS, NM, GASTRIC BYPASS. 324 ASA GIVEN Juan Alberto Rich RN 04/30/241905 documented in this encounter Plan of Treatment Not on file documented as of this encounter Procedures Procedure Name Priority Date/Time Associated Diagnosis Comments URINALYSIS WITH REFLEX MICROSCOPIC AND CULTURE STAT 04/30/2024 10:34 PM EST MCCOY URINE CULTURE TUBE STAT 04/30/2024 10:34 PM EST URINALYSIS WITH REFLEX MICROSCOPIC AND CULTURE STAT 04/30/2024 10:34 PM EST TROPONIN I HIGH SENSITIVITY STAT 04/30/2024 9:42 PM EST XR CHEST 2 VIEWS STAT 04/30/2024 8:28 PM EST ECG 12-LEAD STAT 04/30/2024 8:17 PM EST TROPONIN I HIGH SENSITIVITY STAT 04/30/2024 8:00 PM EST CBC WITH AUTO DIFFERENTIAL STAT 04/30/2024 8:00 PM EST CBC AND DIFFERENTIAL STAT 04/30/2024 8:00 PM EST B-TYPE NATRIURETIC PEPTIDE STAT 04/30/2024 8:00 PM EST MAGNESIUM STAT 04/30/2024 8:00 PM EST LIPASE STAT 04/30/2024 8:00 PM EST CORTISOL Add-On 04/30/2024 8:00 PM EST COMPREHENSIVE METABOLIC PANEL STAT 04/30/2024 8:00 PM EST documented in this encounter Results * Mccoy urine culture tube (04/30/2024 10:34 PM EST) Extra Tube Hold for add-ons. 05/01/2024 12:01 AM EST [facility] Comment:Auto resulted. Urine Urine specimen obtained by clean catch procedure / Unknown Non-blood Collection / Unknown 04/30/2024 10:34 PM EST 04/30/2024 10:40 PM EST us Brenda DELATORRE LAB URINE ORDERABLES Final Result [facility] [address] [place] [address], [place] [phone] * Urinalysis with reflex microscopic and culture (04/30/2024 10:34 PM EST) Specific [place] Urine 1.011 1.003 - 1.030 LAB URINALYSIS - AUTOMATED METHOD 04/30/2024 10:46 PM [facility] pH, Urine 7.0 5.0 - 8.0 pH LAB URINALYSIS - AUTOMATED METHOD 04/30/2024 10:46 PM [facility] Leukocytes, Urine Negative Negative LAB URINALYSIS - AUTOMATED METHOD 04/30/2024 10:46 PM [facility] Nitrite, Urine Negative Negative LAB URINALYSIS - AUTOMATED METHOD 04/30/2024 10:46 PM [facility] Protein, Urine Negative <=Trace mg/dL LAB URINALYSIS - AUTOMATED METHOD 04/30/2024 10:46 PM [facility] Glucose, Urine Negative Negative mg/dL LAB URINALYSIS - AUTOMATED METHOD 04/30/2024 10:46 PM [facility] Ketones, Urine Negative Negative mg/dL LAB URINALYSIS - AUTOMATED METHOD 04/30/2024 10:46 PM [facility] Urobilinogen, Urine 0.2 0.2 - 1.0 mg/dL LAB URINALYSIS - AUTOMATED METHOD 04/30/2024 10:46 PM [facility] Bilirubin, Urine Negative Negative LAB URINALYSIS - AUTOMATED METHOD 04/30/2024 10:46 PM [facility] Blood, Urine Negative Negative LAB URINALYSIS - AUTOMATED METHOD 04/30/2024 10:46 PM [facility] Urine Urine specimen obtained by clean catch procedure / Unknown Non-blood Collection / Unknown 04/30/2024 10:34 PM EST 04/30/2024 10:40 PM EST Brenda DELATORRE LAB URINE ORDERABLES Final Result Performing Organization Address [facility]/ZIP Co de Phone Number [facility] [address] [place] [address], * Troponin I high sensitivity (04/30/2024 9:42 PM EST) High Sensitivity Troponin I 4 <=54 ng/L LAB CHEMISTRY METHOD 04/30/2024 10:35 PM EST [facility] Blood Venous blood specimen / Unknown Venipuncture / Unknown 04/30/2024 9:42 PM EST 04/30/2024 10:12 PM EST Narrative [facility] - 04/30/2024 10:35 PM EST High levels of biotin in samples may falsely decrease hsTroponin values. ??Use caution when interpreting hsTroponin results in patients taking biotin who exhibit renal impairment (eGFR <60) or in patients taking more than 20 mg/day of biotin. Edgardo Cervantes DO LAB BLOOD ORDERABLES Final Res ult Performing Organization Address [facility] de Phone Number [facility] [address] [place] [address], * XR Chest 2 Views (04/30/2024 8:28 PM EST) Anatomical Region Laterality Modality Body Radiographic Vicenta ging 05/01/2024 8:38 AM EST Impressions 05/01/2024 8:41 AM EST No acute pulmonary disease. No change since 03/16/2024. Code 17721 -------- FINAL REPORT -------- Dictated By: Paras Weeks Dictated Date: 05/01/2024 08:38 ET Assigned Physician: Paras Weeks Reviewed and Electronically Signed By: Paras Weeks Signed Date: 05/01/2024 08:41 ET Workstation ID: [id number] Transcribed By: Self Edit Transcribed Date: 05/01/2024 [...] pulmonary disease. No change since 03/16/2024. Code 78268 -------- FINAL REPORT -------- Dictated By: Paras Weeks Dictated Date: 05/01/2024 08:38 ET Assigned Physician: Paras Weeks Reviewed and Electronically Signed By: Paras Weeks Signed Date: 05/01/2024 08:41 ET Workstation ID: [id number] Transcribed By: Self Edit Transcribed Date: 05/01/2024 08:38 ET us Edgardo Cervantes DO IMG XR PROCEDURES Final Result * ECG 12 lead (04/30/2024 8:17 PM EST) Ventricular Rate ECG 80 BPM GEMUSE Atrial Rate 80 BPM GEMUSE P-R Interval 198 ms GEMUSE QRS Duration 76 ms GEMUSE Q-T Interval 396 ms GEMUSE QTc 456 ms GEMUSE P Wave Esparto 32 degrees GEMUSE R Esparto 2 degrees GEMUSE T Esparto 24 degrees GEMUSE ECG Interpretation Normal sinus rhythm Normal ECG When compared with ECG of 18-MAR-2024 06:00, T wave amplitude has decreased in Lateral leads Confirmed by Nahid SMITH JOHN ([id number]) on 05/01/2024 7:50:24 AM GEMUSE 04/30/2024 8:17 PM EST 05/01/2024 7:50 AM EST us Edgardo Cervantes DO ECG ORDERABLES Final Result Performing Organization Address [facility] de Phone Number GEMUSE * Cortisol (04/30/2024 8:00 PM EST) Pathologist [facility] Cortisol 4.3 mcg/dL LAB CHEMISTRY METHOD 04/30/2024 9:44 PM EST [facility] Blood Venous blood specimen / Unknown Venipuncture / Unknown 04/30/2024 8:00 PM EST 04/30/2024 8:30 PM EST Narrative [facility] - 04/30/2024 9:44 PM EST CORTISOL REFERENCE RANGE ?? 8 AM SPEC: ??5.0-23.0 mcg/dL ?? 4 PM SPEC: ??3.0-16.0 mcg/dL ?? 8 PM SPEC: ??<5.0 mcg/dL Brenda Vale PA LAB BLOOD ORDERABLES Final Result Performing Organization Address [facility] de Phone Number [facility] [address] [place] [address], * (ABNORMAL) CBC auto differential (04/30/2024 8:00 PM EST) WBC 7.6 4.8 - 10.8 K/mcL LAB HEMETOLOGY METHOD 04/30/2024 8:37 PM EST [facility] RBC 3.50(L) 3.80 - 4.80 M/mcL LAB HEMETOLOGY METHOD 04/30/2024 8:37 PM EST [facility] Hemoglobin 9.7(L) 11.5 - 16.0 g/dL LAB HEMETOLOGY METHOD 04/30/2024 8:37 PM [facility] Hematocrit 28.7(L) 35.0 - 47.0 % LAB HEMETOLOGY METHOD 04/30/2024 8:37 PM [facility] MCV 82.5 79.0 - 98.0 FL LAB HEMETOLOGY METHOD 04/30/2024 8:37 PM [facility] MCH 27.9 27.0 - 32.0 pcg LAB HEMETOLOGY METHOD 04/30/2024 8:37 PM [facility] MCHC 33.8 32.0 - 37.0 g/dL LAB HEMETOLOGY METHOD 04/30/2024 8:37 PM [facility] RDW 16.4(H) 11.0 - 15.0 % LAB HEMETOLOGY METHOD 04/30/2024 8:37 PM [facility] Platelets 304 130 - 400 K/mcL LAB HEMETOLOGY METHOD 04/30/2024 8:37 PM [facility] MPV 9.1 7.0 - 11.0 FL LAB HEMETOLOGY METHOD 04/30/2024 8:37 PM [facility] NRBC 0.0 <1.0 % LAB HEMETOLOGY METHOD 04/30/2024 8:37 PM [facility] NRBC Absolute 0.00 <0.10 K/mcL LAB HEMETOLOGY METHOD 04/30/2024 8:37 PM [facility] Neutrophils Relative 49.9 % LAB HEMETOLOGY METHOD 04/30/2024 8:37 PM [facility] Lymphocytes Relative 39.1 % LAB HEMETOLOGY METHOD 04/30/2024 8:37 PM [facility] Monocytes Relative 9.9 % LAB HEMETOLOGY METHOD 04/30/2024 8:37 PM [facility] Eosinophils Relative 0.3 % LAB HEMETOLOGY METHOD 04/30/2024 8:37 PM [facility] Basophils Relative 0.5 % LAB HEMETOLOGY METHOD 04/30/2024 8:37 PM [facility] Immature Granulocytes Relative 0.3 % LAB HEMETOLOGY METHOD 04/30/2024 8:37 PM [facility] Neutrophils Absolute 3.81 1.50 - 7.00 K/mcL LAB HEMETOLOGY METHOD 04/30/2024 8:37 PM [facility] Lymphocytes Absolute 2.99 1.00 - 5.00 K/mcL LAB HEMETOLOGY METHOD 04/30/2024 8:37 PM [facility] Monocytes Absolute 0.76 0.20 - 1.00 K/mcL LAB HEMETOLOGY METHOD 04/30/2024 8:37 PM EST [facility] Eosinophils Absolute 0.02 0.00 - 0.50 K/mcL LAB HEMETOLOGY METHOD 04/30/2024 8:37 PM [facility] Basophils Absolute 0.04 0.00 - 0.20 K/mcL LAB HEMETOLOGY METHOD 04/30/2024 8:37 PM [facility] Immature Granulocytes Absolute 0.02 0.00 - 0.03 K/mcL LAB HEMETOLOGY METHOD 04/30/2024 8:37 PM [facility] Blood Venous blood specimen / Unknown Venipuncture / Unknown 04/30/2024 8:00 PM EST 04/30/2024 8:31 PM EST us Edgardo Cervantes DO LAB BLOOD ORDERABLES Final Res ult [facility] [address] [place] [address], * B-type natriuretic peptide (04/30/2024 8:00 PM EST) BNP 30 <=100 pcg/mL LAB CHEMISTRY METHOD 04/30/2024 9:05 PM EST [facility] Blood Venous blood specimen / Unknown Venipuncture / Unknown 04/30/2024 8:00 PM EST 04/30/2024 8:30 PM EST us Edgardo Cervantes DO LAB BLOOD ORDERABLES Final Res ult [facility] [address] [place] [address], [place] [phone] * Magnesium (04/30/2024 8:00 PM EST) Magnesium 2.0 1.9 - 2.6 mg/dL LAB CHEMISTRY METHOD 04/30/2024 9:07 PM EST [facility] Blood Venous blood specimen / Unknown Venipuncture / Unknown 04/30/2024 8:00 PM EST 04/30/2024 8:30 PM EST us Edgardo Cervantes DO LAB BLOOD ORDERABLES Final Res ult Performing Organization Address City/[facility]/ZIP Co de Phone Number [facility] [address] [place] [address], [place] [phone] * Lipase (04/30/2024 8:00 PM EST) Lipase 34 13 - 75 unit/L LAB CHEMISTRY METHOD 04/30/2024 9:07 PM EST [facility] Blood Venous blood specimen / Unknown Venipuncture / Unknown 04/30/2024 8:00 PM EST 04/30/2024 8:30 PM EST us Edgardo Cervantes DO LAB BLOOD ORDERABLES Final Res ult [facility] [address] [place] [address], * Comprehensive metabolic panel (04/30/2024 8:00 PM EST) Sodium 140 133 - 145 mmol/L LAB CHEMISTRY METHOD 04/30/2024 9:16 PM [facility] Potassium 3.8 3.5 - 5.5 mmol/L LAB CHEMISTRY METHOD 04/30/2024 9:16 PM [facility] Chloride 109 96 - 110 mmol/L LAB CHEMISTRY METHOD 04/30/2024 9:16 PM [facility] CO2 24 21 - 32 mmol/L LAB CHEMISTRY METHOD 04/30/2024 9:16 PM [facility] Anion Gap 7 3 - 11 LAB CHEMISTRY METHOD 04/30/2024 9:16 PM [facility] Glucose 84 70 - 100 mg/dL LAB CHEMISTRY METHOD 04/30/2024 9:16 PM [facility] BUN 9 5 - 25 mg/dL LAB CHEMISTRY METHOD 04/30/2024 9:16 PM [facility] Creatinine 0.67 0.50 - 1.10 mg/dL LAB CHEMISTRY METHOD 04/30/2024 9:16 PM [facility] eGFR 109 >=60 mL/min/1. 73m2 LAB CHEMISTRY METHOD 04/30/2024 9:16 PM [facility] Comment:Calculation based on the??Chronic Kidney Disease Epidemiology Collaboration (CKD-EPI) equation refit??without adjustment for race. BUN/Creatinine Ratio 13.4 LAB CHEMISTRY METHOD 04/30/2024 9:16 PM [facility] Calcium 8.9 8.5 - 10.5 mg/dL LAB CHEMISTRY METHOD 04/30/2024 9:16 PM [facility] AST (SGOT) 13 10 - 42 unit/L LAB CHEMISTRY METHOD 04/30/2024 9:16 PM [facility] ALT (SGPT) 20 10 - 60 unit/L LAB CHEMISTRY METHOD 04/30/2024 9:16 PM EST [facility] Alkaline Phosphatase 77 42 - 121 unit/L LAB CHEMISTRY METHOD 04/30/2024 9:16 PM EST [facility] Total Protein 7.0 6.0 - 8.0 g/dL LAB CHEMISTRY METHOD 04/30/2024 9:16 PM EST [facility] Albumin 3.5 3.2 - 5.0 g/dL LAB CHEMISTRY METHOD 04/30/2024 9:16 PM EST [facility] Total Bilirubin 0.3 0.0 - 1.4 mg/dL LAB CHEMISTRY METHOD 04/30/2024 9:16 PM EST [facility] Blood Venous blood specimen / Unknown Venipuncture / Unknown 04/30/2024 8:00 PM EST 04/30/2024 8:30 PM EST us Edgardo Cervantes DO LAB BLOOD ORDERABLES Final Res ult [facility] [address] [place] [address], * Troponin I high sensitivity (04/30/2024 8:00 PM EST) High Sensitivity Troponin I <3 <=54 ng/L LAB CHEMISTRY METHOD 04/30/2024 8:58 PM EST [facility] Blood Venous blood specimen / Unknown Venipuncture / Unknown 04/30/2024 8:00 PM EST 04/30/2024 8:31 PM EST Narrative [facility] - 04/30/2024 8:58 PM EST High levels of biotin in samples may falsely decrease hsTroponin values. ??Use caution when interpreting hsTroponin results in patients taking biotin who exhibit renal impairment (eGFR <60) or in patients taking more than 20 mg/day of biotin. us Edgardo Cervantes DO LAB BLOOD ORDERABLES Final Res ult [facility] [place] ([facility]) [facility] [address] [place] [address], [place] [phone] documented in this encounter Visit Diagnoses Diagnosis Anemia, unspecified type- Primary documented in this encounter Administered Medications Inactive Administered Medications - up to 3 most recent administrations Medication Order MAR Action Action Date Dose Rate Site carvediloL (COREG) tablet 12.5 mg 12.5 mg, oral, Once, On Tue04/30/24 at 2256, For 1 dose Given 04/30/2024 11:16 PM EST 12.5 mg hydrocortisone sod succ (PF) (SOLU-CORTEF) injection 100 mg 100 mg, intravenous, Once, On Tue04/30/24 at 2113, For 1 dose Given 04/30/2024 9:43 PM EST 100 mg HYDROmorphone (PF) injection 0.5 mg 0.5 mg, intravenous, Once, On Tue04/30/24 at 2109, For 1 dose Given 04/30/2024 9:43 PM EST 0.5 mg ondansetron (PF) (ZOFRAN) injection 4 mg 4 mg, intravenous, Once, On Tue04/30/24 at 2109, For 1 dose Given 04/30/2024 9:43 PM EST 4 mg oxyCODONE (ROXICODONE) immediate release tablet 15 mg 15 mg, oral, Once, On Tue04/30/24 at 2256, For 1 dose Given 04/30/2024 11:16 PM EST 15 mg sodium chloride 0.9 % bolus 1,000 mL 1,000 mL, intravenous, at 4,000 mL/hr, Administer over 0.25 Hours, Once, On Tue04/30/24 at 2109, For 1 dose New Bag 04/30/2024 9:43 PM EST 1,000 mL 4000 mL/hr documented in this encounter Active and Recently Administered Medications Times are shown in EST. Scheduled Medication Order 04/28/2024 04/29/2024 04/30/2024 carvediloL (COREG) tablet 12.5 mg (COMPLETED) 12.5 mg, oral, Once, On Tue04/30/24 at 2256, For 1 dose 2315 (Given - Provid er: Cleveland Soliz RN) hydrocortisone sod succ (PF) (SOLU-CORTEF) injection 100 mg (COMPLETED) 100 mg, intravenous, Once, On Tue04/30/24 at 2113, For 1 dose 2142 (Given - Provid er: Cleveland Soliz RN) HYDROmorphone (PF) injection 0.5 mg (COMPLETED) 0.5 mg, intravenous, Once, On Tue04/30/24 at 2109, For 1 dose 2142 (Given - Provid er: Cleveland Soliz RN) ondansetron (PF) (ZOFRAN) injection 4 mg (COMPLETED) 4 mg, intravenous, Once, On Tue04/30/24 at 2109, For 1 dose 2142 (Given - Provid er: Cleveland Soliz RN) oxyCODONE (ROXICODONE) immediate release tablet 15 mg (COMPLETED) 15 mg, oral, Once, On Tue04/30/24 at 2256, For 1 dose 2315 (Given - Provid er: Cleveland Soliz RN) sodium chloride 0.9 % bolus 1,000 mL (COMPLETED) 1,000 mL, intravenous, at 4,000 mL/hr, Administer over 0.25 Hours, Once, On Tue04/30/24 at 2109, For 1 dose 2142 (New Bag - Prov ider: Cleveland Soliz RN)2314 (Stopped - Provider: Cleveland Soliz RN) documented in this encounter Orders Medications Ordered That Law ht Not Have Been Administered Count Last Ordered Date First Ordered Date dexAMETHasone (DECADRON) injection 4 mg 1 0 04/30/2024 documented in this encounter Care Teams Lehr Operator Relationship Specialty Start Date End Date Lisseth Nassar NP [address] [place] [address] [place] [address] PCP - General 07/07/21 documented as of this encounter
--- OUTSIDE RECORDS SUMMARY | 2024-05-02 07:50 | XMS_ITS | Data Portability ---
Author Organization FALGUNI Davon Tejeda [facility], [facility] Address [address] [place] [address] Care Team Providers Care R Developer Name Role Phone NESHA FENG Referring Provider [phone] Assessment Encounter Date Assessment Date Assessment LastModified by Organization Details LastModified Time 06/08/2023 06/08/2023 A: Pt maintaining 120* of flexion passively. Pt tolerated light ankle weight with PRE's performed. P: Continue POC. Progress strength and ROM as tolerated. [email or web address] Not available 06/08/2023 17:58:16 02/16/2024 02/16/2024 Imaging: Imaging ordered, independently reviewed and interpreted by Kenneth Fall MD reveals the following findings: XR Knee Left Knee: Three views of the knee were obtained including AP, sunrise, and lateral views. Status post total knee arthroplasty. No evidence of complication, well fixed, well aligned. There is no evidence of loosening or migration. There is no evidence of osteolysis. No fractures are present. Alignment: Neutral Impression: Left well-functioning knee replacement Left hip greater trochanteric bursitis Plan: I provided the patient with a steroid injection into the area of maximal tenderness in her left hip or trochanteric bursa today. She did have good anesthetic relief to this injection. Fortunately she has not fractured her knee, and I am glad to hear that her knee pain is improving. We talked about expectations following this injection, she does have recurrence of her pain she may contact our office for a follow-up visit with myself or one of our physician assistants [email or web address] Not available 02/16/2024 12:24:07 Plan of Treatment Reminders Order Date Submit Date Provider Last Modified By Organization Details Last Modified Time Details Appointments None recorded. Lab None recorded. Referral None recorded. Procedures None recorded. Surgeries None recorded. Imaging XR, knee, 3 view - 201 3v LTKR AB protocol 2023 024 [facility], [address], [address], [place], [address], 4 16:10:35 XR, knee, 3 view - Rm#[id number], 3 views of left knee, LTKR, post-fall . 2023 024 [facility], [address], [address], [place], [address], 4 08:49:31 Medication Orders None recorded. Patient TargetsNo targets recorded. Patient InstructionsNo instructions recorded. Reason for Referral None Reported. Results Created Date Observation Date Name Description Value Unit Range Abnormal Flag Note LastModifiedBy Organization Detail LastModifiedTime 09/08/19 24 09/08/2023 CBC WITH DIFFE RENTI AL/PL ATELE T WBC 5.0 K/mm3 4.0-11 .0 Not Available [address], [address], 09/08/2023 13:03:49 09/08/19 24 09/08/2023 CBC WITH DIFFE RENTI AL/PL ATELE T RBC 3.64 M/mm3 4.20-5 .40 below low normal Not Available [address], [address], 09/08/2023 13:03:49 09/08/19 24 09/08/2023 CBC WITH DIFFE RENTI AL/PL ATELE T hemoglobin 10.5 gm/dL 11.7-1 5.5 below low normal Not Available [address], [address], 09/08/2023 13:03:49 09/08/19 24 09/08/2023 CBC WITH DIFFE RENTI AL/PL ATELE T hematocrit 31.6 % 35.7-4 5.8 below low normal Not Available [address], [address], 09/08/2023 13:03:49 09/08/19 24 09/08/2023 CBC WITH DIFFE RENTI AL/PL ATELE T MCV 86.8 fL 80.0-1 00.0 Not Available [address], [address], 09/08/2023 13:03:49 09/08/19 24 09/08/2023 CBC WITH DIFFE RENTI AL/PL ATELE T MCH 28.8 pg 27.0-3 4.0 Not Available [address], [address], 09/08/2023 13:03:49 09/08/19 24 09/08/2023 CBC WITH DIFFE RENTI AL/PL ATELE T MCHC 33.2 g/dL 33.0-3 7.0 Not Available [address], [address], 09/08/2023 13:03:49 09/08/19 24 09/08/2023 CBC WITH DIFFE RENTI AL/PL ATELE T RDW 44.8 fL <47.0 Not Available [address], [address], 09/08/2023 13:03:49 09/08/19 24 09/08/2023 CBC WITH DIFFE RENTI AL/PL ATELE T platelets 212 K/mm3 150-46 0 Not Available [address], [address], 09/08/2023 13:03:49 09/08/19 24 09/08/2023 CBC WITH DIFFE RENTI AL/PL ATELE T neutrophils 50.1 % 44-76 Not Available [address], [address], 09/08/2023 13:03:49 09/08/19 24 09/08/2023 CBC WITH DIFFE RENTI AL/PL ATELE T lymphs 37.5 % 15-43 Not Available [address], [address], 09/08/2023 13:03:49 09/08/19 24 09/08/2023 CBC WITH DIFFE RENTI AL/PL ATELE T monocytes 8.8 % 4.5-10 .5 Not Available [address], [address], 09/08/2023 13:03:49 09/08/19 24 09/08/2023 CBC WITH DIFFE RENTI AL/PL ATELE T eos 2.6 % 0-6 Not Available [address], [address], 09/08/2023 13:03:49 09/08/19 24 09/08/2023 CBC WITH DIFFE RENTI AL/PL ATELE T basos 0.8 % 0-2 Not Available [address], [address], 09/08/2023 13:03:49 09/08/19 24 09/08/2023 CBC WITH DIFFE RENTI AL/PL ATELE T neutrophils (absolute) 2.5 K/mm3 1.3-7. 0 Not Available [address], [address], 09/08/2023 13:03:49 09/08/19 24 09/08/2023 CBC WITH DIFFE RENTI AL/PL ATELE T lymphs (absolute) 1.9 K/mm3 0.8-3. 1 Not Available [address], [address], 09/08/2023 13:03:49 09/08/19 24 09/08/2023 CBC WITH DIFFE RENTI AL/PL ATELE T monocytes(ab solute) 0.4 K/mm3 0.4-0. 9 Not Available [address], [address], 09/08/2023 13:03:49 09/08/19 24 09/08/2023 CBC WITH DIFFE RENTI AL/PL ATELE T eos (absolute) 0.1 K/mm3 0.0-0. 4 Not Available [address], [address], 09/08/2023 13:03:49 09/08/19 24 09/08/2023 CBC WITH DIFFE RENTI AL/PL ATELE T baso (absolute) 0.0 K/mm3 0.0-0. 1 Not Available [address], [address], 09/08/2023 13:03:49 09/08/19 24 09/08/2023 CBC WITH DIFFE RENTI AL/PL ATELE T immature granulocytes 0.2 % Not Available [address], [address], 09/08/2023 13:03:49 09/08/19 24 09/08/2023 CBC WITH DIFFE RENTI AL/PL ATELE T immature grans (abs) 0.0 K/mm3 Not Available [address], [address], 09/08/2023 13:03:49 09/08/19 24 09/08/2023 CBC WITH DIFFE RENTI AL/PL ATELE T NRBC 0.0 #/100 _WBC' s Not Available [address], [address], 09/08/2023 13:03:49 09/08/19 24 09/08/2023 CBC WITH DIFFE RENTI AL/PL ATELE T hematology comments: Commen t AUTOM ATED DIFFE RENTI AL MPV 10.8 FL 9.4-1 2.4 N ABS. NRBC 0.0 K/MM3 N Not Available [address], [address], 09/08/2023 13:03:49 09/08/19 24 09/08/2023 SEDIM ENTAT ION RATE- WESTE RGREN sedimentatio n rate-westerg butch 28 mm/HR 0-20 above high normal Not Available [address], [address], 09/08/2023 13:03:50 09/08/19 24 09/08/2023 C-CHA CTIVE PROTE IN, QUANT C-reactive protein, quant 1.2 mg/dL 0-0.5 above high normal Not Available [address], [address], 09/08/2023 13:03:50 03/22/19 25 03/22/2024 CBC WITH DIFFE RENTI AL/PL ATELE T WBC 7.0 x10e3 /uL 3.4-10 .8 normal Not Available [facility] ([facility]) [address] [place], [address], 03/23/2024 08:08:19 03/22/19 25 03/22/2024 CBC WITH DIFFE RENTI AL/PL ATELE T RBC 3.40 x10e6 /uL 3.77-5 .28 below low normal Not Available [facility] ([facility]) [address] [place], [address], 03/23/2024 08:08:19 03/22/1903/22/2024 CBC WITH DIFFE RENTI AL/PL ATELE T hemoglobin 9.5 g/dL 11.1-1 5.9 below low normal Not Available [facility] ([facility]) [address] [place], [address], 03/23/2024 08:08:19 03/22/19 25 03/22/2024 CBC WITH DIFFE RENTI AL/PL ATELE T hematocrit 30.1 % 34.0-4 6.6 below low normal Not Available [facility] ([facility]) [address] [place], [address], 03/23/2024 08:08:19 03/22/1903/22/2024 CBC WITH DIFFE RENTI AL/PL ATELE T MCV 89 fL 79-97 normal Not Available [facility] ([facility]) [address] [facility], [place], [address], 03/23/2024 08:08:19 03/22/1903/22/2024 CBC WITH DIFFE RENTI AL/PL ATELE T MCH 27.9 pg 26.6-3 3.0 normal Not Available [facility] ([facility]) [address] [facility], [place], [address], 03/23/2024 08:08:19 03/22/1903/22/2024 CBC WITH DIFFE RENTI AL/PL ATELE T MCHC 31.6 g/dL 31.5-3 5.7 normal Not Available [facility] ([facility]) [address] [facility], [place], [address], 03/23/2024 08:08:19 03/22/1903/22/2024 CBC WITH DIFFE RENTI AL/PL ATELE T RDW 17.0 % 11.7-1 5.4 above high normal Not Available [facility] ([facility]) [address] [facility], [place], [address], 03/23/2024 08:08:19 03/22/1903/22/2024 CBC WITH DIFFE RENTI AL/PL ATELE T platelets 248 x10e3 /uL 150-45 0 normal Not Available [facility] ([facility]) [address] [place], [address], 03/23/2024 08:08:19 03/22/1903/22/2024 CBC WITH DIFFE RENTI AL/PL ATELE T neutrophils 66 % not estab. normal Not Available [facility] ([facility]) [address] [place], [address], 03/23/2024 08:08:19 03/22/19 25 03/22/2024 CBC WITH DIFFE RENTI AL/PL ATELE T lymphs 25 % not estab. normal Not Available [facility] ([facility]) [address] [facility], [place], [address], 03/23/2024 08:08:19 03/22/19 25 03/22/2024 CBC WITH DIFFE RENTI AL/PL ATELE T monocytes 8 % not estab. normal Not Available [facility] ([facility]) [address] [facility], [place], [address], 03/23/2024 08:08:19 03/22/1903/22/2024 CBC WITH DIFFE RENTI AL/PL ATELE T eos 1 % not estab. normal Not Available [facility] ([facility]) [address] [facility], [place], [address], 03/23/2024 08:08:19 03/22/1903/22/2024 CBC WITH DIFFE RENTI AL/PL ATELE T basos 0 % not estab. normal Not Available [facility] ([facility]) [address] [facility], [place], [address], 03/23/2024 08:08:19 03/22/19 25 03/22/2024 CBC WITH DIFFE RENTI AL/PL ATELE T immature cells COMMUNICATION SPEC Not Available [facility] ([facility]) [address] [facility], [place], [address], 03/23/2024 08:08:19 03/22/1903/22/2024 CBC WITH DIFFE RENTI AL/PL ATELE T neutrophils (absolute) 4.6 x10e3 /uL 1.4-7. 0 normal Not Available [facility] ([facility]) [address] [facility], [place], [address], 03/23/2024 08:08:19 03/22/19 25 03/22/2024 CBC WITH DIFFE RENTI AL/PL ATELE T lymphs (absolute) 1.7 x10e3 /uL 0.7-3. 1 normal Not Available [facility] ([facility]) [address] [place], [address], 03/23/2024 08:08:19 03/22/19 25 03/22/2024 CBC WITH DIFFE RENTI AL/PL ATELE T monocytes(ab solute) 0.6 x10e3 /uL 0.1-0. 9 normal Not Available [facility] ([facility]) [address] [facility], [place], [address], 03/23/2024 08:08:19 03/22/1903/22/2024 CBC WITH DIFFE RENTI AL/PL ATELE T eos (absolute) 0.1 x10e3 /uL 0.0-0. 4 normal Not Available [facility] ([facility]) [address] [place], [address], 03/23/2024 08:08:19 03/22/1903/22/2024 CBC WITH DIFFE RENTI AL/PL ATELE T baso (absolute) 0.0 x10e3 /uL 0.0-0. 2 normal Not Available [facility] ([facility]) [address] [place], [address], 03/23/2024 08:08:19 03/22/1903/22/2024 CBC WITH DIFFE RENTI AL/PL ATELE T immature granulocytes 0 % not estab. Not Available [facility] ([facility]) [address] [place], [address], 03/23/2024 08:08:19 03/22/1903/22/2024 CBC WITH DIFFE RENTI AL/PL ATELE T immature grans (abs) 0.0 x10e3 /uL 0.0-0. 1 Not Available [facility] ([facility]) [address] [place], [address], 03/23/2024 08:08:19 03/22/19 25 03/22/2024 CBC WITH DIFFE RENTI AL/PL ATELE T NRBC COMMUNICATION SPEC Not Available [facility] ([facility]) [address] [facility], [place], [address], 03/23/2024 08:08:19 03/22/19 25 03/22/2024 CBC WITH DIFFE RENTI AL/PL ATELE T hematology comments: COMMUNICATION SPEC Not Available [facility] ([facility]) [address] [facility], [place], [address], 03/23/2024 08:08:19 03/22/19 25 03/23/2024 SEDIM ENTAT ION RATE- WESTE RGREN sedimentatio n rate-westerg butch 26 mm/HR 0-32 normal Not Available [facility] ([facility]) [address] [facility], [place], [address], 03/23/2024 08:08:19 03/22/19 25 03/23/2024 C-CHA CTIVE PROTE IN, QUANT C-reactive protein, quant 4 mg/L 0-10 normal Not Available [facility] ([facility]) [address] [facility], [place], [address], 03/23/2024 08:08:20 09/09/19 24 09/09/2023 XR, knee, 3 view [email or web address]:/ [email or web address] ?Encry pted=s hAaTro YD8dLq bEUv6g %2BXZw aYqtaq 0bqfl% 2Fg9IQ a4ajBk vP9nXo QUaueC m3YtLR FvZlgJ JJ8mAn HZtai3 8l3584 AC0Kpa nSGWaH eUC8mr 84%3D INTERFACE [facility] [address], [place], [address], 09/09/2023 10:26:57 09/09/19 24 09/09/2023 XR, knee, 3 view [email or web address]:/ [email or web address] ?Encry pted=s hAaTro YD8dLq bEUv6g %2BXZw aYqtaq 0bqfl% 2Fg9IQ a4ajBk vP9nXo QUaueC m3YtLR FvZlgJ JJ8mAn HZtai3 1g5076 AC0Kpa nSGWaH eUC8mr 84%3D INTERFACE [facility] [address], [place], [address], 09/09/2023 10:26:59 11/12/19 24 01/06/2019 imagi ng/di agnos tic resul t No observ ation record ed. [email or web address] Not Available 10/14 04:41:53 11/12/19 24 01/06/2019 imagi ng/di agnos tic resul t No observ ation record ed. [email or web address] Not Available 10/14 04:41:56 11/12/19 24 05/26/2022 imagi ng/di agnos tic resul t No observ ation record ed. [email or web address] Not Available 10/14 04:44:55 02/16/20 24 02/16/2024 XR, knee, 3 view [email or web address]:/ [email or web address] ?Encry pted=s hAaTro YD8dLq bEUv6g %2BXZw aYqtaq 0bqfl% 2Fg9IQ a4ajBk vP9nXo QUaueC m3YtLR FvZlgJ JJ8mAn HZtai3 3i8105 AC0Kqa XWFUaS nKiQtr MwF INTERFACE [facility] [address], [place], [address], 02/16/2024 10:29:25 02/16/20 24 02/16/2024 XR, knee, 3 view [email or web address]:/ [email or web address] ?Encry pted=s hAaTro YD8dLq bEUv6g %2BXZw aYqtaq 0bqfl% 2Fg9IQ a4ajBk vP9nXo QUaueC m3YtLR FvZlgJ JJ8mAn HZtai3 7h1949 AC0Kqa XWFUaS nKiQtr MwF INTERFACE [facility] [address], [place], [address], 02/16/2024 10:29:27 Result Notes None recorded. Problems Name Problem SNOMED Code Status Onset Date Resolution Date Notes Provider Name and Address Organization Details Recorded Time No complaint s 039934386 Active Status: 'I'; Not Available [facility] 4 09:20:08 Trochante shanta bursitis of left hip 476501755681 103 Active 2023 Kenneth Fall MD [address], [place], [address] , [facility] 4 12:24:01 History of left total knee replaceme nt 408317462814 9105 Active 2023 Kenneth Fall MD [address], [place], [address] , [facility] - [facility] 4 12:24:03 Hypertens ion disorder 57868261 Active 2018 Status: 'A'; Not Available [facility] 4 11:27:37 Derangeme nt of left knee 977696038511 [address]1152 Active 2013 Status: 'A'; Not Available [facility] 4 11:27:37 Arthritis 3128753 Active 2018 Status: 'A'; Not Available [facility] 4 11:27:37 Asthma 274307418 Active 2018 Status: 'A'; Not Available [facility] 4 11:27:38 Pain of left knee joint 057360419158 107 Active 2015 Problem Code: M25.562; Problem Code Type: ICD-10; Status: 'A'; [facility] Available [facility] 4 11:27:38 Chondroma lacia of left patella 250826027323 106 Active 2015 Problem Code: M22.42; Problem Code Type: ICD-10; Status: 'A'; Not Available [facility] 11:27:38 Low back pain 625719220 Active 2015 Problem Code: M54.5; Problem Code Type: ICD-10; Status: 'A'; Not Available [facility] 11:27:38 Problem Notes None recorded. Procedures Surgical History Date Name Laterality Status Provider Name and Address Organization Details Recorded Time 02/16/20 Hip Kenalog 1cc Injection, L/R completed Kenneth Fall MD [address], [place], [address], [facility] 02/16/2024 12:23:49 06/10/19 Iovera completed Kenneth Fall MD [address], [place], [address], [facility] 06/10/2023 16:53:34 06/08/19 24 [address] Therapeutic Exercise (1:1) completed Luz Nobles [employer] [address], [place], [address], [facility] 06/08/2023 17:39:21 06/08/19 24 [address]: Manual therapy completed Luz Nobles [employer] [address], [place], [address], [facility] 06/08/2023 17:39:45 Imaging Results Imaging Date Name Status LastModified by Organiz ation Details LastModified Time 09/09/2023 XR, knee, 3 view completed [facility] [address], [place], [address], 09/09/2023 10:26:57 09/09/2023 XR, knee, 3 view completed INTERFACE [facility] [address], [place], [address], 09/09/2023 10:26:59 01/06/2019 imaging/diag nostic result completed Information not available 11/12/2023 04:41:53 01/06/2019 imaging/diag nostic result completed Information not available 11/12/2023 04:41:56 05/26/2022 imaging/diag nostic result completed Information not available 11/12/2023 04:44:55 02/16/2024 XR, knee, 3 view completed INTERFACE [facility] [address], [place], [address], 02/16/2024 10:29:25 02/16/2024 XR, knee, 3 view completed INTER[facility] [address], [place], [address], 02/16/2024 10:29:27 Procedure Notes None recorded. Medical Equipment None Reported. Allergies Allergen ID Allergen Name Allergen Category Reaction Reaction Severity Criticality Documentation Date Start Date Code Code System Note Provider Name and Address Organization Details Recorded Time 350972 fentanyl medicatio n anaphylax is severe high 02/16/2024 4337 RxNorm Marlin sutton [place] - [facility] 4 10:20:21 120237 Depakote medicatio n tachycard ia mild high 02/16/2024 83772 9 RxNorm Marlin sutton [place] [facility] 10:20:43 47591 Zoloft medicatio n Not available Not available Not available 05/16/20232017 66369 RxNorm Not Available [facility] 13:27:15 80585 Non-stero idal anti-infl ammatory agent (product) medicatio n Not available Not available Not available 05/16/20232020 26829 005 SNOMED Not Available [facility] 4 13:27:15 06347 morphine sulfate medicatio n Not available Not available Not available 05/16/20232017 43391 RxNorm Not Available [facility] 4 13:27:15 46823 Bactrim medicatio n Not available Not available Not available 05/16/20232012 60112 9 RxNorm Not Available [facility] 4 13:27:16 30217 Substance with sulfonami de structure and antibacte rial mechanism of action (substanc e) medicatio n Not available Not available Not available 05/16/20232012 12325 8003 SNOMED Not Available [facility] 4 13:27:16 Medications Name Sig Start Date Stop Date Status Note LastModified by Organization Details LastModified Time quetiapine 25 mg tablet TAKE 1 TABLET BY MOUTH DAILY active Not Available Not Available No t Available amoxicillin 500 mg capsule TAKE 4 CAPSULES BY MOUTH BEFORE INJECTION FOR 1 HOUR active Not Available Not Available No t Available carvedilol 6.25 mg tablet TAKE 1 TABLET BY MOUTH TWICE DAILY active Not Available Not Available No t Available nitrofurant oin macrocrysta l 50 mg capsule TAKE 1 CAPSULE BY MOUTH AT BEDTIME active Not Available Not Available No t Available carvedilol 12.5 mg tablet TAKE 1 TABLET BY MOUTH TWICE DAILY active Not Available Not Available No t Available ipratropium 0.5 mg-albutero l 3 mg (2.5 mg base)/3 mL nebulizatio n soln INHLAE 3ML VIA NEBULIZER FOUR TIMES DAILY active Not Available Not Available No t Available albuterol sulfate 2.5 mg/3 mL (0.083 %) solution for nebulizatio n INHALE 3 ML BY MOUTH EVERY 6 HOURS NEEDED FOR WHEEZING/ SHORTNESS OF BREATH active Not Available Not Available No t Available cetirizine 10 mg tablet TAKE 1 TABLET BY MOUTH DAILY active Not Available Not Available No t Available fluconazole 150 mg tablet TAKE 1 TABLET BY MOUTH EVERY 72 HOURS active Not Available Not Available No t Available sucralfate 1 gram tablet TAKE 1 TABLET BY MOUTH FOUR TIMES DAILY BEFORE MEALS AND BEFORE BEDTIME active Not Available Not Available No t Available phenazopyri dine 200 mg tablet active Not Available Not Available Not Available metronidazo le 0.75 % (37.5 mg/5 gram) vaginal gel INSERT 1 APPLICATO RFUL VAGINALLY DAILY AT BEDTIME FOR 5 DAYS active Not Available Not Available No t Available lisinopril 20 mg tablet TAKE 1 TABLET BY MOUTH DAILY active Not Available Not Available No t Available famotidine 40 mg tablet TAKE 1 TABLET BY MOUTH AT BEDTIME active Not Available Not Available No t Available clonazepam 0.5 mg tablet TAKE 1 TABLET BY MOUTH FOUR TIMES DAILY NEEDED FOR ANXIETY active Not Available Not Available No t Available quetiapine 200 mg tablet TAKE 1 TABLET BY MOUTH AT BEDTIME active Not Available Not Available No t Available clonazepam 1 mg tablet TAKE 1 TABLET BY MOUTH THREE TIMES DAILY SPARINGLY active Not Available Not Available No t Available metronidazo le 500 mg tablet TAKE 1 TABLET BY MOUTH EVERY 12 HOURS FOR 7 DAYS active Not Available Not Available No t Available oxcarbazepi ne 300 mg tablet TAKE 1 TABLET BY MOUTH TWICE DAILY active Not Available Not Available No t Available amlodipine 5 mg tablet TAKE 1 TABLET BY MOUTH DAILY TAKE AT BEDTIME active Not Available Not Available No t Available quetiapine 100 mg tablet TAKE 1 TABLET BY MOUTH EVERY EVENING active Not Available Not Available No t Available amitriptyli ne 50 mg tablet TAKE 1 TABLET BY MOUTH AT BEDTIME active Not Available Not Available No t Available spironolact one 25 mg tablet TAKE 1/2 A TABLET BY MOUTH DAILY active Not Available Not Available No t Available amoxicillin 500 mg tablet TAKE 4 TABLETS BY MOUTH 1 HOUR BEFORE DENTAL APPOINTME NT active Not Available Not Available No t Available pentoxifyll ine ER 400 mg tablet,exte nded release TAKE 1 TABLET BY MOUTH THREE TIMES DAILY active Not Available Not Available No t Available oxycodone 15 mg tablet TAKE 1 TABLET BY MOUTH EVERY 4 HOURS NEEDED FOR PAIN. MAY FILL. LESS. MAY FILL ON / AFTER 4 active Not Available Not Available No t Available nortriptyli ne 25 mg capsule TAKE 1 CAPSULE BY MOUTH DAILY active Not Available Not Available No t Available oxycodone-a cetaminophe n 5 mg-325 mg tablet active Not Available Not Available No t Available hydromorpho ne 2 mg tablet TAKE 1 TABLET BY MOUTH EVERY 4 HOURS NEEDED FOR PAIN active Not Available Not Available No t Available amitriptyli ne 25 mg tablet TAKE 1 TABLET BY MOUTH AT BEDTIME active Not Available Not Available No t Available magnesium oxide 400 mg (241.3 mg magnesium) tablet TAKE 1 TABLET BY MOUTH TWICE DAILY active Not Available Not Available No t Available metoclopram rick 5 mg tablet TAKE 1 TABLET BY MOUTH BEFORE MEALS AND AT BEDTIME NEEDED FOR NAUSEA active Not Available Not Available No t Available tamsulosin 0.4 mg capsule TAKE 1 CAPSULE BY MOUTH EVERY NIGHT AT BEDTIME TO HELP WITH URINARY FLOW active Not Available Not Available No t Available amlodipine 5 mg-benazepr il 10 mg capsule TAKE 1 CAPSULE BY MOUTH DAILY TO. REPLACE BEFORE PRESCRIPT ION AMLODIPIN E active Not Available Not Available No t Available phenazopyri dine 100 mg tablet TAKE 1 TABLET BY MOUTH THREE TIMES DAILY NEEDED FOR SPASM active Not Available Not Available No t Available prochlorper azine 25 mg rectal suppository UNWRAP AND INSERT 1 SUPPOSITO RY RECTALLY EVERY 12 HOURS NEEDED FOR NAUSEA OR VOMITING active Not Available Not Available No t Available pantoprazol e 40 mg tablet,jeromy yed release TAKE 1 TABLET BY MOUTH TWICE DAILY TO. REPLACE LANSOPROZ OLE active Not Available Not Available No t Available esomeprazol e magnesium 40 mg capsule,del ayed release TAKE 40MG BY MOUTH DAILY OPEN CAPULE AND MIX WITH APPLE SAUCE active Not Available Not Available No t Available nystatin 100,000 unit/gram topical cream APPLY TOPICALLY TO THE AFFECTED AREA TWICE DAILY active Not Available Not Available No t Available buspirone 10 mg tablet TAKE 1 TABLET BY MOUTH TWICE DAILY active Not Available Not Available No t Available lisinopril 10 mg tablet TAKE 1 TABLET BY MOUTH DAILY active Not Available Not Available No t Available lansoprazol e 30 mg capsule,del ayed release TAKE 1 CAPSULE BY MOUTH DAILY active Not Available Not Available No t Available clonazepam 2 mg tablet TAKE 1/2 TABLET BY MOUTH THREE TIMES DAILY PLEASE active Not Available Not Available No t Available gabapentin 300 mg capsule TAKE 1 CAPSULE BY MOUTH AT BEDTIME active Not Available Not Available No t Available buspirone 7.5 mg tablet TAKE 1 TABLET BY MOUTH EVERY AFTERNOON . TOGETHER WITH 10 MG 2 TIMES DAILY 27.5 DAY active Not Available Not Available No t Available montelukast 10 mg tablet TAKE 1 TABLET BY MOUTH DAILY IN THE EVENING active Not Available Not Available No t Available clindamycin 2 % vaginal cream INSERT 1 APPLICATO RFULL VAGINALLY DAILY AT BEDTIME FOR 7 DAYS active Not Available Not Available No t Available morphine ER 15 mg tablet,exte nded release TAKE 1 TABLET BY MOUTH EVERY 12 HOURS active Not Available Not Available No t Available mupirocin 2 % topical ointment APPLY TOPICALLY TO THE AFFECTED AREA THREE TIMES DAILY active Not Available Not Available No t Available zolpidem 5 mg tablet TAKE 1 TABLET BY MOUTH AT BEDTIME active Not Available Not Available No t Available metoprolol succinate ER 25 mg tablet,exte nded release 24 hr TAKE 1 TABLET BY MOUTH DAILY active Not Available Not Available No t Available lorazepam 1 mg tablet TAKE 1 TABLET BY MOUTH ONE AND ONE-HALF HOURS BEFORE MRI. TAKE ADDITIONA L TABLET 45 MINTUES BEFORE INJECTION IF NEEDED active Not Available Not Available No t Available estradiol 0.01% (0.1 mg/gram) vaginal cream INSERT 1 GRAM VAGINALLY 3 TIMES A WEEK EVERY NIGHT AT BEDTIME active Not Available Not Available No t Available scopolamine 1 mg over 3 days transdermal patch APPLY 1 PATCH TOPICALLY TO THE SKIN EVERY 72 HOURS active Not Available Not Available No t Available hydromorpho ne 4 mg tablet TAKE 1 TABLET BY MOUTH EVERY 12 HOURS FOR 7 DAYS NEEDED FOR PAIN DX POST SURGICAL KNEE PAIN active Not Available Not Available No t Available Vitamin B-1 100 mg tablet TAKE 1 TABELT BY MOUTH EVERY DAY active Not Available Not Available No t Available fluticasone propionate 250 mcg/actuati on blister powder for inhalation INHALE 1 PUFF BY MOUTH TWICE DAILY DISPENSE BRAND REQUIRED BY INSURANCE active Not Available Not Available No t Available fluoxetine 20 mg capsule TAKE 1 CAPSULE BY MOUTH DAILY active Not Available Not Available No t Available Ventolin HFA 90 mcg/actuati on aerosol inhaler INHALE 2 PUFFS BY MOUTH FOUR TIMES DAILY NEEDED FOR WHEEZING DISPENSE BRAND REQUIRED BY INSURANCE active Not Available Not Available No t Available oxycodone 5 mg tablet TAKE 1 TABLET BY MOUTH EVERY 6 TO 8 HOURS NEEDED FOR PAIN. active Not Available Not Available No t Available hydroxyzine pamoate 25 mg capsule TAKE 1 CAPSULE BY MOUTH AT BEDTIME active Not Available Not Available No t Available azithromyci n 500 mg tablet TAKE 1 TABLET BY MOUTH EVERY DAY FOR 7 DAYS active Not Available Not Available No t Available bupropion HCl XL 300 mg 24 hr tablet, extended release TAKE 1 TABLET BY MOUTH EVERY MORNING active Not Available Not Available No t Available duloxetine 20 mg capsule,del ayed release TAKE 1 CAPSULE BY MOUTH DAILY active Not Available Not Available No t Available ursodiol 500 mg tablet TAKE 1 TABLET BY MOUTH TWICE DAILY active Not Available Not Available No t Available cholecalcif tess (vitamin D3) 1,250 mcg (50,000 unit) capsule TAKE 1 CAPSULE BY MOUTH 1 TIME A WEEK active Not Available Not Available No t Available oxycodone 10 mg tablet TAKE 1 TABLET BY MOUTH EVERY 8 HOURS NEEDED FOR PAIN FOR 7 DAYS active Not Available Not Available No t Available oxycodone HCl-oxycodo ne-ASA as directed 1 Q [address] WHILE ON THIS MEDICATIO N 09/11 completed Statu s: 'Disc ontin ued'; Not Available Not Available Not Available quetiapine ER 50 mg tablet,exte nded release 24 hr TAKE 1 TABLET BY MOUTH EVERY MORNING active Not Available Not Available No t Available fesoterodin e ER 4 mg tablet,exte nded release 24 hr TAKE 1 TABLET BY MOUTH DAILY active Not Available Not Available No t Available fesoterodin e ER 8 mg tablet,exte nded release 24 hr TAKE 1 TABLET BY MOUTH DAILY active Not Available Not Available No t Available Creon 12,000-38,0 00-60,000 unit capsule,del ayed release active Not Available Not Available Not Available Xifaxan 550 mg tablet TAKE 1 TABLET BY MOUTH THREE TIMES DAILY FOR 2 WEEKS active Not Available Not Available No t Available Asmanex HFA 200 mcg/actuati on aerosol inhaler active Not Available Not Available Not Available Narcan 4 mg/actuatio n nasal spray CALL 911. SPR CONTENTS OF ONE SPRAYER (0.1ML) INTO ONE NOSTRIL. REPEAT IN 2-3 MIN IF SYMPTOMS OF OPIOID EMERGENCY PERSIST, ALTERNATE NOSTRILS active Not Available Not Available No t Available Xtampza ER 13.5 mg capsule sprinkle TAKE 3 CAPSULES BY MOUTH EVERY 12 HOURS WITH FOOD active Not Available Not Available No t Available Vitals Date Recorded Body height Body mass index (BMI) Body weight Provider Name and Address Organization Details Last Updated DateTime 06/10/2023 166.37 cm 29.2 kg/m2 43100.44 g NE ALAS [facility] 06/10/2023 15:02:06 Date Recorded Body height Body mass index (BMI) Body weight Provider Name and Address Organization Details Last Updated DateTime 09/09/2023 166.37 cm 29.2 kg/m2 78697.44 g Austin Richardson [facility] 09/09/2023 10:15:40 Date Recorded Body height Body mass index (BMI) Body weight Provider Name and Address Organization Details Last Updated DateTime 02/16/2024 166.37 cm 29.2 kg/m2 36046.44 g Marlin [place] [facility] 02/16/2024 10:19:57 Social History None recorded. Functional Status None recorded. Mental Status None recorded. Family History Nothing Reported. Medical History No medical history recorded. Gynecological HistoryNo gynecological history recorded. Obstetrics History GPAL:G 0 P 0 0 0 0 Past Encounters Encounter ID Performer Location Encounter Start Date Encounter Closed Date Diagnosis/Indication Diagnosis SNOMED-CT Code Diagnosis ICD10 Code Diagnosis Note [id number] Juan Alberto Rodriguez [facility] [address] [place] [address] 06/08/2023 16:33:24 06/08/2023 18:00:37 History of left total knee replacement 1694274372 807951 Z96.652 Aftercare 157739784 Z47. 1 [id number] MD [address]autista Medell[address] [place] [address] 06/10/2023 14:42:23 07/01/2023 10:33:28 Pain of left knee joint 3913907922 19147 M25.985 [id number] LUIS Matthews [address] [place] [address] 09/09/2023 09:58:53 10/07/2023 08:14:53 Postoperative care 603793957 Z48.89 History of left total knee replacement 1621290460 076634 Z96.652 Reviewed patient's imaging and exam findings in detail with her. Reviewed that she fortunatel y did not sustain any fracture or dislocatio n to her total knee prosthesis . She appears to just be having an acute synovitic response. She did also sustain a stress-ind uced heart attack. Encouraged a period of rest with frequent icing and elevation as this has been improving. She has history of GI bleed and therefore cannot tolerate NSAIDs. Therefore encouraged topical anti-infla mmatory cream such as Voltaren gel as well as lidocaine patches for symptomati c relief. Do feel that this will continue to improve with time. She may follow-up on an as-needed basis. While she does have slight elevation in her CRP she did also just sustain a heart attack and acute traumatic fall which also causes inflammato ry response. Do not feel that this is indicative of infection at this time. [id number] MD Bautista Medellin [address] [place] [address] 02/16/2024 10:03:36 03/02/2024 16:10:34 History of left total knee replacement 8064350808 030240 Z96.652 Trochanter ic bursitis of left hip 7563332783 03459 M70.62 Health Concerns Section Related Observation LastModified by Organization Detai ls LastModified Time None Recorded Concern Status LastModified by Organization Details LastModified Time None Recorded Advance Directives Directive None Recorded Payers Encounter Date Sequence Insurance Name Policy Number Policy Leo Covered Member ID Leo Member ID Guarantor Name 06/08/2023 2 [place] [id number] E[place] 06/08/2023 1 [place] [employer] E[place] A [place] [id number] Eboni A Rc 06/10/2023 2 [place] [id number] E[place]i A [place] 06/10/2023 1 [place] Eboni A Rc [id number] E[place] A [place] 09/09/2023 2 [place] A [place] [id number] E[place]i A [place] 09/09/2023 1 [place] [employer] Eboni A Cr [id number] Eboni A [place] 02/16/2024 2 [place] Eboni A Rc [id number] Eboni A Rc 02/16/2024 1 [place] [employer] Eboni A Rc [id number] Eboni A Rc Notes Date Note Type Note Provider Name and Address Organization Details Recorded Time 06/08/2023 text/html Pt reports no pa in n L coming in, just stiffness and fatigue. Pt is using a cane. Luz Nobles, WRAPPER AND PRESERVER [address], [place], [address], [facility] 06/08/2023 18:00:29 09/09/2023 text/html I am seeing the patient under the general supervision of {{Dr. Escobar* Dr. Juan David Singletary}} who was available but who did not see the patient. The patient presents today for evaluation of new onset of {{right hip left hip right knee* left knee}} pain. They are {{ 1#}} status post total joint arthroplasty by {{Dr. Fall* Dr. Thang Monreal}} in may of 2022. Patient reports that she was trying to go tot he bathroom and tripped on a shoe. date of injury was 09/06/2023. She has been using a cane for ambulation assistance. She reports the knee was very swollen after the fall. She was already having difficulty with ROM and now its even worse. She has been icing and elevating which has helped reduce swelling and pain. She was recently discharged from the hospital for a stress induced heart attack. States that the heart attack was in the beginning of August. She is under a lot of stress as she has 5 kids and 7 grandkids. Denies any fevers, chills or systemic/constitut ional symptoms. Labs: WBC: 5.0 Sed rate: 28 CRP: 1.2 Diagnostic Imaging: X-rays ordered, obtained and reviewed today at [facility]: reveal maintained alignment of the prosthetic components, No fracture or dislocation . Excellent interface. No interval change compared to previous radiographs. No evidence of asymmetric polyethylene wear. There is small enthesophyte off the superior and inferior patellar poles on lateral view which appears chronic but slightly progressed from her previous radiographs. No new fracture identified. Rima Villa PA-C [address], [place], [address], [facility] - [facility] 09/09/2023 10:59:35 02/16/2024 text/html History of prese nt illness:Lorin follows up today for evaluation of her left knee and her left hip. She sustained a fall 2 weeks ago and has been having some worsening pain in her left knee. She states today that the pain is starting to get better, and is being overshadowed by the pain in the lateral side of her hip.Past family, medical, social history and review of systems has been reviewed and updated, and is located in the patient? s chart. Kenneth Fall MD [address], [place], [address], [facility] 02/16/2024 12:24:24 OBGyn Episode No OBEpisode recorded.
[2024-05-02 08:59] LABS: Albumin Level 3.8 g/dL (3.5-5.0); Anion Gap 11 (12-20); Blood Urea Nitrogen 16 mg/dL (9-16); Calcium 8.3 mg/dL (8.4-10.2); Carbon Dioxide 23 mmol/L (22-29); Chloride 111 mmol/L (96-108); Estimated Glomerular Filt Rate > 60; Glucose Random 73 mg/dL (60-115); Potassium 3.3 mmol/L (3.3-5.1); Sodium 142 mmol/L (135-145)
[2024-05-02 09:15] LABS: Free T4 (Free Thyroxine) 1.06 ng/dL (0.71-1.85)
[2024-05-02 09:17] LABS: Thyroid Stimulating Hormone 1.07 uIU/mL (0.32-4.0)
[2024-05-02 10:24] LABS: Cortisol Random 5.4 ug/dL
[2024-05-03 11:44] LABS: DHEA Sulfate 8 mcg/dL (15-205); Follicle Stimulating Hormone 15.6 mIU/mL; Lutenizing Hormone 13.9 mIU/mL; Prolactin 34.9 ng/mL
[2024-05-03 18:24] LABS: Human Growth Hormone 0.3 ng/mL (< OR = 7.1)
[2024-05-05 19:44] LABS: Adrenocorticotropic Hormone 10 pg/mL (6-50)
[2024-05-08 16:59] LABS: IGF-1 (Somatomedin C) 164 ng/mL (52-328); IGF-1 Z Score (Female) 0.3 SD (-2.0 - +2.0)
[2024-05-09 04:18] LABS: Estradiol Ultra Sensitive 181 pg/mL
== END 2024-05-02 07:48 | disposition home or self-care (01) ==
LOC: HO.LAB 07:47
PROVIDERS: Internal Medicine Nephrology; Absent Provider Internal Medicine Gastroenterology; Visit Provider Student in an Organized Health Care Education/Training Program
DX: R79.89 Other specified abnormal findings of blood chemistry (principal)
CPT/HCPCS: 36415; 80048; 82024; 82040; 82533; 82627; 82670; 83001; 83002; 83003; 83519; 84146; 84305; 84439; 84443

== ENCOUNTER 2024-05-04 11:53 | Outpatient (AMB) | payer MEDICARE, MEDICAID, SELFPAY ==
--- NOTE | 2024-05-04 11:59 | A.OFFVIS_ITS ---
Vital Signs 05/04/24 12:01 Height 5 ft 5 in Weight 150 lb 12.739 oz BMI 25.1 BP 138/87 Blood Pressure Location Lt brachial Position Sitting Pulse 82 Pulse Oximetry (%) 100 Oxygen Delivery Method Room Air Intake Visit Reasons: ED follow up Intake Note: Patient ED follow up Patient cc: Nauseas, IBS symptoms, abdominal pain with acid reflex and she have to take time to swallow. 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: No Accompanied by: Self / Same As Patient Allergies sertraline [From ZOLOFT] Allergy (Intermediate, Verified 05/04/24 11:57) prolonged QT interval Sulfa (Sulfonamide Antibiotics) [SULFA (SULFONAMIDE ANTIBIOTICS)] Allergy (Intermediate, Verified 05/04/24 11:57) RASH haloperidol [From Haldol] Allergy (Mild, Verified 05/04/24 11:57) unknown morphine [MORPHINE] Allergy (Mild, Verified 05/04/24 11:57) Rash NSAIDS (Non-Steroidal Anti-Inflamma [NSAIDS (NON-STEROIDAL ANTI-INFLAMMA] Adverse Reaction (Intermediate, Verified 05/04/24 11:57) STOMACH UPSET fentanyl patch Allergy (Severe, Uncoded 04/25/24 14:55) Unresponsive HPI HPI ED follow up: Details: 48 yr old f being seen for f/u RECAP: she has 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 sleep is poor, 4 hrs off and on she is on tramadol, having issues with constipation. once q4 days EGD 03/2018- gastritis also prior hx of kenalog trigger injection, hard to say if helped. she was given linaclotide to help with constipation GES---normal she was having ongoing issues with pain and was optimized on acid suppression with h2, PPI and carafate, was trying to get her movantik she represented 01/2019 to office with c/o worsening epigastric pain, nausea, and poor appetite with weight loss. using linaclotide helping her constipation, on fentanyl patch--goes every few days I offered her admission but she refused but she was dizzy so sent to ED, labs inc LFT, BMP, CBC were neg and CT was unremarkable without any acute pathology EGD then done 02/2019 with bx revealing chronic reflux damage and gastritis, looked like sandy but the stain was neg U/s 03/2019- liver normal, F0 on elastography, ?left kidney stone, Ba swallow 03/2019- patent GEJ, mild reflux pending urine 24 hr tests and metanephrines At f/u visit 05/2019--she was awaiting w/u for interstitial cystitis she was doing well with donantal and compazine capsule endoscopy was done and was neg was advised to try align, IBGARD, stress reduction She had cystoscopy with Dr Rodriguez for her IC she had surgery with removal of adhesions at [facility] 05/2021 and hiatal hernia repair she had ongoing problems and had EGD with gastritis, and bile reflux in stomach she is on trileptel for bipolar I ordered KUB with moderate stool burden Increased movantik to 25 mg but stopped it due to too much diarrhea she had kenalog injection to area of pain in abdomen, which she feels may have helped a little She had EGD/colon with Dr Allan 04/05 Marginal ulcer noted at [facility] colon was tortuous hyperplastic polyp removed with random colo bx with crypt distortion REPT EGD: 08/24/22 Hx of gastric bypass Findings: Larynx:normal Esophagus: GE junction at 37 cm, diaphragm hiatus at 37 cm, no varices or esophagitis. Stomach pouch: x 4 retained sola noted with mild superficial inflammation and erosions noted around 3 of these. These were removed with cold forceps and bx taken from the anastomotic site and the pouch. Overall appearances appeared improved as compared to before. Jejunum: Normal Intervention: Biopsies as noted above, removal of retained sola Impression/Findings: retained sola mild inflammation around anastomosis PLAN: cont with PPI I again scoped her for reassessment 02/15/23-- improved compared to before with chronic active inflammation at anastomosis i added ursodiol INTERIM: she went to [facility] HGB slightly lower she has occ rectal bleeding due to hemorrhoids, but rare, no melena she is following with endocrinology for her adrenal insuff appetite is poor still taking cortisol EXAM: GENERAL: The patient is tired looking, VITAL SIGNS:see workflow HEENT: Nonicteric sclerae, PERRLA, EOMI. Oropharynx clear. Moist mucous membranes. Conjunctivae appear well perfused. No thyroid mass. CHEST: Chest wall is nontender. HEART: Regular rate and rhythm without murmurs. LUNGS: Clear to auscultation bilaterally. ABDOMEN: Soft, positive bowel sounds, nontender, no organomegaly.no flank tenderness SKIN: No rash, no excessive bruising, petechiae, or purpura. striae noted NEUROLOGIC: Cranial nerves II-XII intact without motor/sensory deficit. Psych: normal affect Assessments 1/ attacks of abdominal pain, diarrhea, nausea, uncertain etiology, possibly from cortisol insuff, now being replaced but feels it is not helping PLAN: 1/ cont to take open capsule esomeprazole and cont carafate 2/ cont levsin 3/ f/u endocrinology 4/ colonoscopy --suprep due to anemia and rectal bleeding 5/ high protein shake and iron infusion [facility] Medical History (Updated 05/07/24 @ 07:00 by Sivan Patino MD) HTN (hypertension) Decreased oral intake Takotsubo cardiomyopathy Burn injury Arthritis Low back pain Elevated cholesterol SOB (shortness of breath) Asthma Numbness Mood disorder IBS (irritable bowel syndrome) OAB (overactive bladder) Sleep apnea Hypersomnia Anxiety Surgical History Hx of gastric bypass Hx of total knee replacement Hx of knee surgery Hx of hernia repair History of cystoscopy Hx of laparoscopic gastric banding Hx of hysterectomy History of H/O gastric bypass Hx of endoscopy History of colonoscopy Family History Father Hx of colon cancer, stage IV Mother Family history of high blood pressure Social History Household Members: Children Household Members Other:: My son Housing: Apartment Are you a primary transitional care nurse to a significant other at home: No Do you presently have visiting nurse or other home services: Yes (youngest dtr is child and adolescent psychiatrist) Alcohol intake: never Comment: previously medicated Patient Tobacco Use Status: Never used Tobacco e-Cigarette/Vaping Use: Never Used Second Hand Smoke Exposure: No Substance Use Type: Marijuana service: No Physical Exam Vital Signs: Last Vital Signs Pulse 82 05/04/24 12:01 BP 138/87 05/04/24 12:01 Pulse Ox 100 05/04/24 12:01 Oxygen Delivery Method Room Air 05/04/24 12:01 BMI result Body Mass Index 25.1 Assessment & Plan Assessment & Plan (1) Low serum cortisol level: Code(s): R79.89 - Other specified abnormal findings of blood chemistry Category: Medical Plan: as above Medications: New food supplemt, lactose-reduced (Boost Plus) 1 ea PO TID 90 ea 3RF hydrocortisone 10 mg (2 x 5 mg) PO DAILY@0800 60 tabs 1RF sodium,potassium,mag sulfates 17.5-3.13-1.6 gram (Suprep Bowel Prep Kit) DILUTE; drink 1/2 at 6-8 pm and half at 11 PM- 1AM 354 mL 0RF Coding Level of Care Code Est Pt Level 4 (18160) Diagnoses Low serum cortisol level R79.89
[2024-05-04 12:01] VITALS: BP 138/87; PULSE 82; O2SAT 100; BMI 25.1
--- OUTSIDE RECORDS SUMMARY | 2024-05-04 12:50 | XMS_ITS | Clinical Summary ---
Author Organization [facility] Address [address] [place] [address] Phone Care Team Providers Care Parts Inspector Name Role Phone Lisseth Nassar [employer]SEKEEPER [employer] Primary Care Provider [phone]- [phone] Allergies Active Allergy Reactions Criticality Noted Date Comments Fentanyl Other,Fainting 02/09/2022 Haloperidol Anxiety Low 02/15/2022 Other Reaction(s): Feeling Irritable Morphine Low 08/12/2020 Redness around the site Nsaids (Non-Steroidal Anti-Inflammatory Drug) Other 09/08/2020 GI bleeding Sertraline Other 09/08/2020 Other Reaction(s): QT wave change interferes withQT waves of heart changed my QT interval has a escrow manager changed my QT interval has a escrow manager Sulfa (Sulfonamide Antibiotics) Rash Low 09/08/2020 Sulfamethoxazole-Trimet [...] EST - 04/30/2024 11:[address] [facility] Emergency [address] [place] [id number] Anemia, unspecified type (Primary Dx) Discharge Disposition: Home or Self Care 03/19/2024 12:06 PM EST Anesthesia Event [facility] Endoscopy [address] [place] [phone] Benigno Knight DO 03/16/2024 6:41 PM EST - 03/19/2024 3:40 PM EST Hospital Encounter 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 [facility] Final Result * ECG-Outside (05/02/2024) Only the most recent of2 resultswithin the time period is included. Provider Onbase [place] ECG ORDERABLES Final Result * Urinalysis with reflex microscopic and culture (04/30/2024 10:34 PM EST) Specific [place] Urine 1.011 1.003 - 1.030 LAB URINALYSIS - AUTOMATED METHOD 04/30/2024 10:46 PM EST [facility] pH, Urine 7.0 5.0 - 8.0 pH LAB URINALYSIS - AUTOMATED METHOD 04/30/2024 10:46 PM EST [facility] Leukocytes, Urine Negative [...] Brenda DELATORRE LAB URINE ORDERABLES Final Result [facility] [address] [place] [address], * Mccoy urine culture tube (04/30/2024 10:34 PM EST) Extra Tube Hold for add-ons. 05/01/2024 12:01 AM EST [facility] Comment:Auto resulted. Urine Urine specimen obtained by clean catch procedure / Unknown Non-blood Collection / Unknown 04/30/2024 10:34 PM EST 04/30/2024 10:40 PM EST Brenda DELATORRE LAB URINE ORDERABLES Final Result Performing Organization Address [facility] Co de Phone Number [facility] [address] [place] [address], [place] [phone] * Troponin I high sensitivity (04/30/2024 9:42 PM EST) Only the most recent of6 resultswithin the time period is included. High Sensitivity Troponin I 4 <=54 ng/L LAB CHEMISTRY METHOD 04/30/2024 10:35 PM EST [facility] Blood Venous blood specimen / Unknown Venipuncture / Unknown 04/30/2024 9:42 PM EST 04/30/2024 10:12 PM EST Narrative [facility] - 04/30/2024 10:35 PM EST High levels of biotin in samples may falsely decrease hsTroponin values. ??Use caution when interpreting hsTroponin results in patients taking biotin who exhibit renal impairment (eGFR <60) or in patients taking more than 20 mg/day of biotin. Edgardo Cervantes DO LAB BLOOD ORDERABLES Final Res ult Performing Organization Address [facility] de Phone Number [facility] [address] [place] [address], * XR Chest 2 Views (04/30/2024 8:28 PM EST) Only the most recent of2 resultswithin the time period is included. Anatomical Region Laterality Modality Body Radiographic Vicenta ging 05/01/2024 8:38 AM EST Impressions 05/01/2024 8:41 AM EST No acute pulmonary disease. No change since 03/16/2024. Code 42442 -------- FINAL REPORT -------- Dictated By: Paras Weeks Dictated Date: 05/01/2024 08:38 ET Assigned Physician: Paras Weeks Reviewed and Electronically Signed By: Paras Weeks Signed Date: 05/01/2024 08:41 ET Workstation ID: [id number] Transcribed By: Self Edit Transcribed Date: 05/01/2024 [...] pulmonary disease. No change since 03/16/2024. Code 87901 -------- FINAL REPORT -------- Dictated By: Paras Weeks Dictated Date: 05/01/2024 08:38 ET Assigned Physician: Paras Weeks Reviewed and Electronically Signed By: Paras Weeks Signed Date: 05/01/2024 08:41 ET Workstation ID: [id number] Transcribed By: Self Edit Transcribed Date: 05/01/2024 [...] GEMUSE QTc 456 ms GEMUSE P Wave [place] 32 degrees GEMUSE R [place] 2 degrees GEMUSE T [place] 24 degrees GEMUSE ECG Interpretation Normal sinus rhythm Normal ECG When compared with ECG of 18-MAR-2024 06:00, T wave amplitude has decreased in Lateral leads Confirmed by Nahid SMITH JOHN ([id number]) on 05/01/2024 7:50:24 AM GEMUSE 04/30/2024 8:17 [...] LAB HEMETOLOGY METHOD 04/30/2024 8:37 PM EST [facility] Monocytes Absolute 0.76 0.20 - 1.00 K/[facility] LAB HEMETOLOGY METHOD 04/30/2024 8:37 PM [facility] Eosinophils Absolute 0.02 0.00 - 0.50 K/[facility] LAB HEMETOLOGY METHOD 04/30/2024 8:37 PM EST [facility] Basophils Absolute 0.04 0.00 - 0.20 K/[facility] HEMETOLOGY METHOD 04/30/2024 8:37 PM EST [facility] Immature Granulocytes Absolute 0.02 0.00 - 0.03 K/[facility] LAB HEMETOLOGY METHOD 04/30/2024 8:37 PM [facility] Blood Venous blood specimen / Unknown Venipuncture / Unknown 04/30/2024 8:00 PM EST 04/30/2024 8:31 PM EST Edgardo Cervantes DO LAB BLOOD ORDERABLES Final Res ult [facility] [address] [place] [address], [place] [phone] * B-type natriuretic peptide (04/30/2024 8:00 PM EST) Only the most recent of2 resultswithin the time period is included. BNP 30 <=100 pcg/mL LAB CHEMISTRY METHOD 04/30/2024 9:05 PM EST [facility] Blood Venous blood specimen / Unknown Venipuncture / Unknown 04/30/2024 8:00 PM EST 04/30/2024 8:30 PM EST Edgardo Cervantes DO LAB BLOOD ORDERABLES Final Res ult [facility] [address] [place] [address], [place] [phone] * Magnesium (04/30/2024 8:00 PM EST) Only the most recent of3 resultswithin the time period is included. Magnesium 2.0 1.9 - 2.6 mg/dL LAB CHEMISTRY METHOD 04/30/2024 9:07 PM EST [facility] Blood Venous blood specimen / Unknown Venipuncture / Unknown 04/30/2024 8:00 PM EST 04/30/2024 8:30 PM EST Edgardo Cervantes DO LAB BLOOD ORDERABLES Final Res ult Performing Organization Address City/[facility]/ZIP Co de Phone Number [facility] [address] [place] [address], [place] [phone] * Lipase (04/30/2024 8:00 PM EST) Only the most recent of4 resultswithin the time period is included. Lipase 34 13 - 75 unit/L LAB CHEMISTRY METHOD 04/30/2024 9:07 PM EST [facility] Blood Venous blood specimen / Unknown Venipuncture / Unknown 04/30/2024 8:00 PM EST 04/30/2024 8:30 PM EST us Edgardo Cervantes DO LAB BLOOD ORDERABLES Final Res ult [facility] [address] [place] [address], [place] [phone] * Cortisol (04/30/2024 8:00 PM EST) Cortisol 4.3 mcg/dL LAB CHEMISTRY METHOD 04/30/2024 9:44 PM EST [facility] Blood Venous blood specimen / Unknown Venipuncture / Unknown 04/30/2024 8:00 PM EST 04/30/2024 8:30 PM EST Narrative [facility] - 04/30/2024 9:44 PM EST CORTISOL REFERENCE RANGE ?? 8 AM SPEC: ??5.0-23.0 mcg/dL ?? 4 PM SPEC: ??3.0-16.0 mcg/dL ?? 8 PM SPEC: ??<5.0 mcg/dL us Brenda DELATORRE LAB BLOOD ORDERABLES Final Result [facility] [address] [place] [address], [place] [phone] * Comprehensive metabolic panel (04/30/2024 8:00 PM [...] METHOD 04/30/2024 9:16 PM [facility] ALT (SGPT) 20 10 - 60 unit/L LAB CHEMISTRY METHOD 04/30/2024 9:16 PM [facility] Alkaline Phosphatase 77 42 - 121 unit/L LAB CHEMISTRY METHOD 04/30/2024 9:16 PM [facility] Total Protein 7.0 6.0 - 8.0 g/dL LAB CHEMISTRY METHOD 04/30/2024 9:16 PM [facility] Albumin 3.5 3.2 - 5.0 g/dL LAB CHEMISTRY METHOD 04/30/2024 9:16 PM [facility] Total Bilirubin 0.3 0.0 - 1.4 mg/dL LAB CHEMISTRY METHOD 04/30/2024 9:16 PM [facility] Blood Venous blood specimen / Unknown Venipuncture / Unknown 04/30/2024 8:00 PM EST 04/30/2024 8:30 PM EST us Edgardo Cervantes DO LAB BLOOD ORDERABLES Final Res ult [facility] [address] [place] [address], * EGD Anesthesia - MAC; [facility] ENDOSCOPY (03/19/2024 12:19 PM EST) Anatomical Region Laterality Modality Endoscopy 03/19/2024 12:0 4 PM EST Impressions 03/19/2024 12:21 PM EST - Normal esophagus. ? - Normal examined jejunum. ? - Gastric bypass. ? - Erythematous mucosa in the stomach. Biopsied. Clip ? was placed. Clip collar separator: ESKY. Recommendation: ?- Discharge patient to home. ? - Resume previous diet. ? - Continue present medications. ? - Await pathology results. ? - Bleeding from gastric biopsy site treated with an ? endoclip as the bleeding would not stop spontaneously. ? - Coagulation profile ? - Marijuana cessation recommended. ? - F/U with primary GI doctor at [facility]. Narrative 03/19/2024 12:[address] [facility] GI Patient Name: Eboni Tatum Procedure Date: 03/19/2024 12:04 PM Date of : 1975 Age: 48 Gender: Female Note Status: Finalized Attending MD: Jesse Saenz DO, [id number] Procedure Date No Time: 03/19/2024 Procedure: ? [...] physician, the nurse, the ? anesthesiologist, the orthopedic brace maker and the survey and mapping technician ? in the pre-procedure area in [...] hemostatic clip was successfully placed. Clip ? collar separator: ESKY. There was no bleeding ? at the end of the procedure. Estimated blood loss was ? minimal. Procedure Code(s): ? --- Professional --- ? 14980, 59, Esophagogastroduodenoscopy, flexible, ? transoral; with control of bleeding, any method ? 56701, Esophagogastroduodenoscopy, flexible, ? transoral; with biopsy, single or multiple Diagnosis Code(s): ? --- Professional --- ? Z98.84, Bariatric surgery status ? K31.89, Other diseases of stomach and duodenum ? R10.13, Epigastric pain ? R11.2, Nausea with vomiting, unspecified CPT copyright 2020 [employer]. All rights reserved. The codes documented in this report are preliminary and upon registration officer review may be revised to meet current compliance requirements. JESSE Saenz DO 03/19/2024 12:21:51 PM This report has been signed electronically.Jesse Saenz DO Number of Addenda: 0 Note Initiated On: 03/19/2024 12:04 PM Scope In: Scope Out: ? Endoscopy Department at [facility] - [address] [place] [address], ? [place] [address] Procedure Note Jesse Saenz DO - 03/19/2024 [facility] GI Patient Name: Eboni Tatum Procedure Date: 03/19/2024 12:04 PM Date of : 1975 Age: 48 Gender: Female Note Status: Finalized Attending MD: Jesse Saenz DO, [id number] Procedure Date No Time: 03/19/2024 Procedure: Upper [...] the physician, the nurse, the anesthesiologist, the orthopedic brace maker and thetechnician in the pre-procedure area in [...] hemostasis,one hemostatic clip was successfully placed. Clip collar separator: ESKY. There was nobleeding at the end of the procedure. Estimated blood losswas minimal. Procedure Code(s): --- Professional --- 51931, 59, Esophagogastroduodenoscopy, flexible, transoral; with control of bleeding, any method 36433, Esophagogastroduodenoscopy, flexible, transoral; with biopsy, single or multiple Diagnosis Code(s): --- Professional --- Z98.84, Bariatric surgery status K31.89, Other diseases of stomach and duodenum R10.13, Epigastric pain R11.2, Nausea with vomiting, unspecified CPT copyright 2020 [employer]. All rights reserved. The codes documented in this report are preliminary and upon registration officer reviewmay be revised to meet current compliance requirements. JESSE Saenz DO 03/19/2024 12:21:51 PM This report has been signed electronically.Jesse Saenz DO Number of Addenda: 0 Note Initiated On: 03/19/2024 12:04 PM Scope In: Scope Out: Endoscopy Department at [facility] - [address] [place] [phone] IMPRESSION: - Normal esophagus. - Normal examined jejunum. - Gastric bypass. - Erythematous mucosa in the stomach. Biopsied.Clip was placed. Clip collar separator: [employer]. Recommendation: - Discharge patient to home. - Resume previous diet. - Continue present medications. - Await pathology results. - Bleeding from gastric biopsy site treated with an endoclip as the bleeding would not stopspontaneously. - Coagulation profile - Marijuana cessation recommended. - F/U with primary GI doctor at [facility]. us Jesse Saenz DO GI~PROCEDURE ORDERABLES Final Re sult * Tissue exam (03/19/2024 12:13 PM EST) Final Diagnosis Stomach, biopsy: Gastric antral and oxyntic-type mucosa with minimal chronic inflammation. No active gastritis and no intestinal metaplasia identified. No Helicobacter pylori identified on hematoxylin and eosin stained sections. 03/20/2024 11:19 AM [facility] Gross Description A. Stomach, biopsies, gastric: Labeled stomach biopsies . Received in formalin are three irregular morley mucosal tissue fragments, ranging from 0.3 cm to 0.6 cm in greatest dimension, which are wrapped in paper and submitted in toto in one cassette, three pieces, multiple levels on one slide. ABDOUL 03/20/2024 11:19 AM [facility] Disclaimer Unless otherwise specified, all tissue is 10% NB formalin fixed and paraffin embedded. 03/20/2024 11:19 AM [facility] Tissue Stomach structure / Unknown 03/19/2024 12:13 PM EST 03/19/2024 12:58 PM EST us Jesse Saenz DO LAB PATHOLOGY ORDERABLES Final R esult [facility] [address] [place] [address], * Prothrombin time with INR (03/18/2024 6:25 [...] ORDERABLES Final Resu lt Performing Organization Address City/[facility]/ZIP Co de Phone Number [facility] [address] [place] [address], [place] [phone] * C-reactive protein (03/18/2024 6:24 AM EST) C-Reactive Protein <0.29 <=0.50 mg/dL LAB CHEMISTRY METHOD 03/18/2024 8:14 AM EST [facility] Blood Venous blood specimen / Unknown Venipuncture / Unknown 03/18/2024 6:24 AM EST 03/18/2024 7:15 AM EST Derrick Severino MD LAB BLOOD ORDERABLES Final Resu lt Performing Organization Address [facility] Co de Phone Number [facility] [address] [place] [address], [place] [phone] * (ABNORMAL) Phosphorus (03/18/2024 6:24 AM EST) Phosphorus 2.3(L) 2.5 - 4.5 mg/dL LAB CHEMISTRY METHOD 03/18/2024 8:14 AM EST [facility] Blood Venous blood specimen / Unknown Venipuncture / Unknown 03/18/2024 6:24 AM EST 03/18/2024 7:15 AM EST Drerick Severino MD LAB BLOOD ORDERABLES Final Resu lt Performing Organization Address City/[facility]/ZIP Co de Phone Number [facility] [address] [place] [address], [place] [phone] * XR Abdomen 1 View (03/17/2024 11:44 [...] Signed Date: 03/17/2024 11:56 ET Workstation ID: [id number] Transcribed By: Self Edit Transcribed Date: 03/17/2024 [...] Signed Date: 03/17/2024 11:56 ET Workstation ID: [id number] Transcribed By: Self Edit Transcribed Date: 03/17/2024 11:55 ET Derrick Severino MD IMG XR PROCEDURES Final Result * (ABNORMAL) Basic metabolic panel (03/17/2024 5:34 AM EST) Only the most recent of2 resultswithin the time period is included. Sodium 133 133 - 145 mmol/L LAB CHEMISTRY METHOD 03/17/2024 6:27 AM EST [facility] Potassium 4.2 3.5 - 5.5 mmol/L LAB CHEMISTRY METHOD 03/17/2024 6:27 AM EST [facility] Comment:Hemolysis present Chloride [...] Coronado MD LAB BLOOD ORDERABLES Final Result [facility] [address] [place] [address], * Urinalysis with reflex microscopic (03/17/2024 4:06 AM EST) Specific [place] Urine 1.009 1.003 - 1.030 LAB URINALYSIS [...] Coronado MD LAB URINE ORDERABLES Final Result [facility] [address] [place] [address], * Sodium, urine, random (03/17/2024 4:06 AM EST) Sodium, Ur 19 mmol/L LAB CHEMISTRY METHOD 03/17/2024 4:54 AM EST [facility] Urine Urine specimen obtained by clean catch procedure / Unknown Non-blood Collection / Unknown 03/17/2024 4:06 AM EST 03/17/2024 4:25 AM EST us Gabe Coronado MD LAB URINE ORDERABLES Final Result Performing Organization Address City/[facility]/ZIP Co de Phone Number [facility] [address] [place] [address], [place] [phone] * Protein, urine, random (03/17/2024 4:06 AM EST) Protein, Urine 20 mg/dL LAB CHEMISTRY METHOD 03/17/2024 4:54 AM EST [facility] Urine Urine specimen obtained by clean catch procedure / Unknown Non-blood Collection / Unknown 03/17/2024 4:06 AM EST 03/17/2024 4:25 AM EST us Gabe Coronado MD LAB URINE ORDERABLES Final Result Performing Organization Address [facility]/ZIP Co de Phone Number [facility] [address] [place] [address], [place] [phone] * HCG qualitative, urine (03/17/2024 4:06 AM EST) Preg Test, Ur Negative Negative 03/17/2024 4:56 AM EST [facility] Urine Urine specimen obtained by clean catch procedure / Unknown Non-blood Collection / Unknown 03/17/2024 4:06 AM EST 03/17/2024 4:25 AM EST us Gabe Coronado MD LAB URINE ORDERABLES Final Result Performing Organization Address City/[facility]/ZIP Co de Phone Number [facility] [address] [place] [address], [place] [phone] * Creatinine, urine, random (03/17/2024 4:06 AM EST) Creatinine, Urine 77.0 mg/dL LAB CHEMISTRY METHOD 03/17/2024 4:54 AM EST [facility] Urine Urine specimen obtained by clean catch procedure / Unknown Non-blood Collection / Unknown 03/17/2024 4:06 AM EST 03/17/2024 4:25 AM EST us Gabe Coronado MD LAB URINE ORDERABLES Final Result [facility] [address] [place] [address], [place] [phone] * US Retroperitoneal Complete (03/17/2024 2:05 AM [...] IMG US PROCEDURES Final Res ult * XR Knee 4+ Views Right (03/16/2024 6:33 PM EST) Anatomical Region Laterality Modality Lower Extremities, Knee Right [facility] 03/16/2024 6:46 PM EST Impressions 03/16/2024 6:47 PM EST FINDINGS/IMPRESSION: No acute fracture or dislocation. ??Mild medial compartment predominant degenerative change. ??No joint effusion or focal soft tissue swelling. -------- FINAL REPORT -------- Dictated By: URBANO MATTHEWS Dictated Date: 03/16/2024 18:46 ET Assigned Physician: URBANO MATTHEWS Reviewed and Electronically Signed By: URBANO MATTHEWS Signed Date: 03/16/2024 18:47 ET Workstation ID: [id number] Transcribed By: Self Edit Transcribed Date: 03/16/2024 [...] Signed Date: 03/16/2024 18:47 ET Workstation ID: [id number] Transcribed By: Self Edit Transcribed Date: 03/16/2024 18:46 ET Anil Louis MD IMG XR PROCEDURES Final [...] currently active code status orders. Care Teams Parts Inspector Relationship Specialty Start Date End Date Lisseth Nassar NP [address] [place] [address] [place] [phone] PCP - General 07/07/21
--- OUTSIDE RECORDS SUMMARY | 2024-05-04 12:50 | XMS_ITS | Clinical Summary ---
Author Organization [facility] Address [address] [place] [address] Care Team Providers Care Canceling Machine Operator Name Role Phone Unavailable Primary Care Provider [...]
--- OUTSIDE RECORDS SUMMARY | 2024-05-04 12:50 | XMS_ITS | Encounter Summary ---
Author Organization [employer] Address [address] [place] [address] Care Team Providers Care Electroplater Name Role Phone Lisseth Nassar BATTERY CONTAINER FINISHING HAND Primary Care Provider [phone] Reason for Visit * Reason Comments Shortness of Breath NAUSEA WEAKNESS SOB TODAY STARTED EXPERIENCING CHEST PAIN. H/X RENAL INJURY ADRENAL INSUFF, CYSTITIS, AL, GASTRIC BYPASS Chest Pain Encounter Details Date Type Department Care Team (Late st Contact Info) Description 04/30/2024 7:35 PM EST - 04/30/2024 11:59 PM EST Emergency [facility] Emergency [address] [place] [phone] Anemia, unspecified type (Primary Dx) Discharge Disposition: [...] and hematocrit is 28.7. Please call your refining machine operator tomorrow for ongoing management of your anemia. Continue taking your medications as previously prescribed and stay very well hydrated with water. Follow up with your primary provider. Call tomorrow for appointment. Return to Emergency Department if symptoms worsen, do not improve, or any other concern. Get well soon! Thank you for coming to the [facility] Emergency Department today. Our entire team [...] to make arrangements to follow up. Syl[facility]ia [place] [facility] Sylwia Kami Sylwia Lauro * Attachments The following attachments cannot be sent through Care Everywhere. * Anemia (Chinese) documented in this encounter Medications at Time [...] mid sternal CP earlier and states a AL hx, states she took one baby aspirin at home and EMS gave her another 3 on route. * Juan Alberto Rich RN - 04/30/2024 7:09 PM EST CHEST PAIN FREE UPON ARRIVAL TO ER AFTER EMS GAVE ASA PT REPORTS SOB AND DIZZY Juan Alberto Rich RN 04/30/241909 * Juan Alberto Rich RN - 04/30/2024 7:06 PM EST NAUSEA WEAKNESS SOB TODAY STARTED EXPERIENCING CHEST PAIN. H/X RENAL INJURY ADRENAL INSUFF, CYSTITIS, AL, GASTRIC BYPASS. 324 ASA GIVEN Juan Alberto Rich RN 04/30/241905 * JUAN RAMON Connors - 04/30/2024 6:50 PM EST Emergency Medicine Note Patient Name: Eboni Tatum Initial Evaluation: 04/30/2024 : 1975 Patient's PCP: Lisseth Nassar NP Emergency Physician: JUAN RAMON Connosr History of Present Illness Chief Complaint: Chief Complaint Patient presents with Shortness of Breath NAUSEA WEAKNESS SOB TODAY STARTED EXPERIENCING CHEST PAIN. H/X RENAL INJURY ADRENAL INSUFF, CYSTITIS, AL, GASTRIC BYPASS Chest Pain This is a 48-year-old female with a past medical history of nonischemic cardiomyopathy, hypertension, adrenal insufficiency currently maintained on steroids, cystitis, malnutrition, multiple bariatric surgeries, spinal stenosis managed with opiates daily presenting for evaluation of weakness, fatigue and shortness of breath that has been ongoing for the past 3 days. She also reports chronic dysuria associated with cystitis as well as nausea without vomiting. Patient was hospitalized last week at [facility] for her adrenal insufficiency. Patient denies having any fevers, chills, chest pain, cough or abdominal pain. ROS: I have performed a ROS with the pertinent positives and negatives documented in the history ofpresent illness. Previous History Past Medical History: Diagnosis Date Anxiety DX:Anxiety Chronic abdominal pain Depression DX:Depression GERD (gastroesophageal reflux disease) GI bleed HTN (hypertension) DX:HTN (hypertension) Interstitial cystitis Irritable bowel syndrome Low serum cortisol level AL (myocardial infarction) (CMS/HCC) Non-ischemic cardiomyopathy (CMS/HCC) Opioid type dependence, continuous (CMS/HCC) Past Surgical History: Procedure Laterality Date BREAST REDUCTION PROCEDURE: AK BREAST REDUCTION SECTION, LOW TRANSVERSE GASTRIC BYPASS 01/29/2022 Conversion of sleeve gastrectomy to vazquez-en-Y gastric bypass HIATAL HERNIA REPAIR 06/05/2021 LAPAROSCOPIC GASTRIC BANDING PROCEDURE: LAP ADJUSTABLE GASTRIC BAND SLEEVE GASTROPLASTY 2016 Converted from lap band TOTAL KNEE ARTHROPLASTY Left Social History Tobacco Use Smoking status: Never Smokeless tobacco: Never Substance Use Topics Alcohol use: Not Currently Alcohol/week: 0.8 standard drinks of alcohol Types: 1 Standard drinks or equivalent per week Drug use: Yes Types: Marijuana/Cannabis Comment: CBG/THC drops Family History Problem Relation Name Age of Onset Diabetes Mother Heart disease Mother Lung cancer Father is allergic to sulfamethoxazole-trimethoprim, fentanyl, nsaids (non-steroidal anti-inflammatory drug), sertraline, haloperidol, morphine, and sulfa (sulfonamide antibiotics). No current facility-administered medications on file prior to encounter. Current Outpatient Medications on File Prior to Encounter Medication Sig Dispense Refill carvediloL (COREG) 12.5 mg tablet Take 1 tablet (12.5 mg total) by mouth 2 (two) times a day. clonazePAM (KlonoPIN) 1 mg tablet Take 1 tablet (1 mg total) by mouth 3 (three) times a day if needed for anxiety. Max Daily Amount: 3 mg estradioL (ESTRACE) 0.01 % (0.1 mg/gram) vaginal cream Insert 1 g into the vagina 3 (three) times aweek. fesoterodine 4 mg tablet extended release 24 hr Take 1 tablet by mouth 1 (one) time each day. hydrocortisone (CORTEF) 5 mg tablet Take 1-2 tablets (5-10 mg total) by mouth 2 (two) times a day. TAKE 2 TABLETS AT 8 AM AND TAKE 1 TABLET 6PM hydrOXYzine pamoate (VISTARIL) 25 mg capsule Take 1 capsule (25 mg total) by mouth at bedtime. nortriptyline (PAMELOR) 25 mg capsule Take 2 capsules (50 mg total) by mouth 1 (one) time each day. oxyCODONE (ROXICODONE) 15 mg immediate release tablet Take 1 tablet (15 mg total) by mouth every 8 (eight) hours if needed. Max Daily Amount: 45 mg QUEtiapine (SEROquel) 100 mg tablet Take 1 tablet (100 mg total) by mouth at bedtime. scopolamine (TRANSDERM-SCOP) 1 mg over 3 days patch 3 day Apply 1 patch topically every 3rd (third)day. spironolactone (ALDACTONE) 25 mg tablet Take 0.5 tablets (12.5 mg total) by mouth 1 (one) time eachday. tamsulosin (FLOMAX) 0.4 mg 24 hr capsule Take 1 capsule (0.4 mg total) by mouth at bedtime. Xtampza ER 18 mg capsule,sprinkle,ER 12hr tmprr Take 54 mg by mouth 2 (two) times a day. Max Daily Amount: 108 mg zolpidem (AMBIEN) 5 mg tablet Take 1 tablet (5 mg total) by mouth at bedtime as needed for sleep. Max Daily Amount: 5 mg Physical Exam ED Triage Vitals [04/30/241928] Temp Heart Rate Resp BP 36.7 ??C (98.1 ??F) 95 18 (!) 154/102 SpO2 Temp Source Heart Rate Source Patient Position 100 % Oral Monitor Sitting BP Location FiO2 (%) Right arm -- Physical Exam General: awake, calm, cooperative, no apparent distress, vital signs reviewed, patient is afebrile Skin: warm, dry, no diaphoresis Eyes: EOMI, no photophobia, no nystagmus ENT: mucosa is moist, throat is clear Respiratory: clear to auscultation bilaterally throughout, no tachypnea Cardiovascular: regular rate and rhythm, no murmur Gastrointestinal: soft, mild suprapubic tenderness, no flank tenderness bilaterally, abdomen is nondistended Musculoskeletal: patient able to move all four extremities, extremities are warm and well perfused Neurological: alert and oriented X3, no focal deficits Psychiatric: stable mood and affect, fluid speech, good eye contact and appropriate demeanor Results Labs Reviewed CBC WITH AUTO DIFFERENTIAL - Abnormal Result Value WBC 7.6 RBC 3.50 (*) Hemoglobin 9.7 (*) Hematocrit 28.7 (*) MCV 82.5 MCH 27.9 MCHC 33.8 RDW 16.4 (*) Platelets 304 MPV 9.1 NRBC 0.0 NRBC Absolute 0.00 Neutrophils Relative 49.9 Lymphocytes Relative 39.1 Monocytes Relative 9.9 Eosinophils Relative 0.3 Basophils Relative 0.5 Immature Granulocytes Relative 0.3 Neutrophils Absolute 3.81 Lymphocytes Absolute 2.99 Monocytes Absolute 0.76 Eosinophils Absolute 0.02 Basophils Absolute 0.04 Immature Granulocytes Absolute 0.02 TROPONIN I HIGH SENSITIVITY - Normal High Sensitivity Troponin I <3 Narrative: High levels of biotin in samples may falsely decrease hsTroponin values. Use caution when interpreting hsTroponin results in patients taking biotin who exhibit renal impairment (eGFR <60) or in patients taking more than 20 mg/day of biotin. TROPONIN I HIGH SENSITIVITY - Normal High Sensitivity Troponin I 4 Narrative: High levels of biotin in samples may falsely decrease hsTroponin values. Use caution when interpreting hsTroponin results in patients taking biotin who exhibit renal impairment (eGFR <60) or in patients taking more than 20 mg/day of biotin. COMPREHENSIVE METABOLIC PANEL - Normal Sodium 140 Potassium 3.8 Chloride 109 CO2 24 Anion Gap 7 Glucose 84 BUN 9 Creatinine 0.67 eGFR 109 BUN/Creatinine Ratio 13.4 Calcium 8.9 AST (SGOT) 13 ALT (SGPT) 20 Alkaline Phosphatase 77 Total Protein 7.0 Albumin 3.5 Total Bilirubin 0.3 LIPASE - Normal Lipase 34 MAGNESIUM - Normal Magnesium 2.0 B-TYPE NATRIURETIC PEPTIDE - Normal BNP 30 URINALYSIS WITH REFLEX MICROSCOPIC AND CULTURE - Normal Specific [place] Urine 1.011 pH, Urine 7.0 Leukocytes, Urine Negative Nitrite, Urine Negative Protein, Urine Negative Glucose, Urine Negative Ketones, Urine Negative Urobilinogen, Urine 0.2 Bilirubin, Urine Negative Blood, Urine Negative CBC AND DIFFERENTIAL Narrative: The following orders were created for panel order CBC and differential. Procedure Abnormality Status --------- ------ CBC auto differential[[id number]] Abnormal Final result Please view results for these tests on the individual orders. CORTISOL Cortisol 4.3 Narrative: CORTISOL REFERENCE RANGE 8 AM SPEC: 5.0-23.0 mcg/dL 4 PM SPEC: 3.0-16.0 mcg/dL 8 PM SPEC: <5.0 mcg/dL URINALYSIS WITH REFLEX MICROSCOPIC AND CULTURE Narrative: The following orders were created for panel order Urinalysis with reflex microscopic and culture. Procedure Abnormality Status --------- ------ Urinalysis with reflex ...[[id number]] Normal Final result Mccoy urine culture tube[[id number]] In process Please view results for these tests on the individual orders. Abnormal Labs Reviewed CBC WITH AUTO DIFFERENTIAL - Abnormal; Notable for the following components: Result Value RBC 3.50 (*) Hemoglobin 9.7 (*) Hematocrit 28.7 (*) RDW 16.4 (*) All other components within normal limits XR Chest 2 Views (Results Pending) I have discussed the incidental/abnormal imaging and/or lab abnormalities with the patient and haveinstructed them the need for further evaluation and workup with their primary care doctor. The laboratory results, imaging results and other diagnostic exam results were reviewed in the EMR. EKG Interpretation NSR 80bpm Critical Care Time None ? Differential Diagnosis Adrenal insufficiency Pneumonia Acute urinary tract infection Electrolyte abnormality Medical Decision Making Medical Decision Making Patient is evaluated. Laboratories are pending at this time. Patient will be given IV fluids, Zofran, Dilaudid and steroids for initial management of her symptoms. Serum cortisol level will be obtained. Medications sodium chloride 0.9 % bolus 1,000 mL (0 mL intravenous Stopped 04/30/242314) ondansetron (PF) (ZOFRAN) injection 4 mg (4 mg intravenous Given 04/30/242142) HYDROmorphone (PF) injection 0.5 mg (0.5 mg intravenous Given 04/30/242142) hydrocortisone sod succ (PF) (SOLU-CORTEF) injection 100 mg (100 mg intravenous Given 04/30/242142) carvediloL (COREG) tablet 12.5 mg (12.5 mg oral Given 04/30/242315) oxyCODONE (ROXICODONE) immediate release tablet 15 mg (15 mg oral Given 04/30/242315) ED Course as of 04/30/242319Apr 30, [id number] Laboratories revealing worsening anemia over the past 1 month. She denies any dark or bloody stools. Urinalysis and serum cortisol pending. [RO] 2305 Patient's urinalysis and serum cortisol are reviewed. Patient is reevaluated. She will be discharged and instructed to follow-up with her outpatient providers for ongoing management of her anemia. [RO] ED Course User Index [RO] JUAN RAMON Connors Clinical Impressions as of 04/30/242319 Anemia, unspecified type Procedures Procedures Diagnosis 1. Anemia, unspecified type Disposition Discharge ED Prescriptions None Physician Attestation JUAN RAMON Connors 04/30/242120 JUAN RAMON Connors 04/30/242319 Cosigned by Edgardo Cervantes DO at 05/02/2024 8:10 AM EST documented in this encounter Plan of Treatment Not on file documented as of this encounter Procedures Procedure Name Priority Date/Time Associated Diagnosis Comments ECG ANNOTATED 05/04/2024 ECG OUTSIDE 05/02/2024 URINALYSIS WITH REFLEX MICROSCOPIC AND CULTURE STAT [...] EST documented in this encounter Results * ECG-Annotated (05/04/2024) us Provider Onbase MD ECG ORDERABLES Final Result * ECG-Outside (05/02/2024) us Provider Onbase MD ECG ORDERABLES Final Result * Mccoy urine culture tube (04/30/2024 10:34 PM EST) Extra Tube Hold for add-ons. 05/01/2024 12:01 AM [facility] Comment:Auto resulted. Urine Urine specimen obtained by clean catch procedure / Unknown Non-blood Collection / Unknown 04/30/2024 10:34 PM EST 04/30/2024 10:40 PM EST Brenda DELATORRE LAB URINE ORDERABLES Final Result [facility] [address] [place] [address], * Urinalysis with reflex microscopic and culture (04/30/2024 10:34 PM EST) Specific [place] Urine 1.011 1.003 - 1.030 LAB URINALYSIS - AUTOMATED METHOD 04/30/2024 10:46 PM [facility] pH, Urine 7.0 5.0 - 8.0 pH LAB URINALYSIS - AUTOMATED METHOD 04/30/2024 10:46 PM [facility] Leukocytes, Urine Negative Negative LAB URINALYSIS - AUTOMATED METHOD 04/30/2024 10:46 PM [facility] Nitrite, Urine Negative Negative LAB URINALYSIS - AUTOMATED METHOD 04/30/2024 10:46 PM [facility] Protein, Urine Negative <=Trace mg/dL LAB URINALYSIS - AUTOMATED METHOD 04/30/2024 10:46 PM [facility] Glucose, Urine Negative Negative mg/dL LAB URINALYSIS - AUTOMATED METHOD 04/30/2024 10:46 PM [facility] Ketones, Urine Negative Negative mg/dL LAB URINALYSIS - AUTOMATED METHOD 04/30/2024 10:46 PM [facility] Urobilinogen, Urine 0.2 0.2 - 1.0 mg/dL LAB URINALYSIS - AUTOMATED METHOD 04/30/2024 10:46 PM [facility] Bilirubin, Urine Negative Negative LAB URINALYSIS - AUTOMATED METHOD 04/30/2024 10:46 PM EST [facility] Blood, Urine Negative Negative LAB URINALYSIS - AUTOMATED METHOD 04/30/2024 10:46 PM EST [facility] Urine Urine specimen obtained by clean catch procedure / Unknown Non-blood Collection / Unknown 04/30/2024 10:34 PM EST 04/30/2024 10:40 PM EST Brenda DELATORRE LAB URINE ORDERABLES Final Result Performing Organization Address [facility]/ZIP Co de Phone Number [facility] [address] [place] [address], * Troponin I high sensitivity (04/30/2024 9:42 PM EST) High Sensitivity Troponin I 4 <=54 ng/L LAB CHEMISTRY METHOD 04/30/2024 10:35 PM EST [facility] Blood Venous blood specimen / Unknown Venipuncture / Unknown 04/30/2024 9:42 PM EST 04/30/2024 10:12 PM EST Narrative [facility] - 04/30/2024 10:35 PM EST High levels of biotin in samples may falsely decrease hsTroponin values. ??Use caution when interpreting hsTroponin results in patients taking biotin who exhibit renal impairment (eGFR <60) or in patients taking more than 20 mg/day of biotin. Edgardo Cervantes DO LAB BLOOD ORDERABLES Final Res ult Performing Organization Address [facility]/ZIP Co de Phone Number [facility] [address] [place] [address], * XR Chest 2 Views (04/30/2024 8:28 PM EST) Anatomical Region Laterality Modality Body Radiographic Vicenta ging 05/01/2024 8:38 AM EST Impressions 05/01/2024 8:41 AM EST No acute pulmonary disease. No change since 03/16/2024. Code 27143 -------- FINAL REPORT -------- Dictated By: Paras Weeks Dictated Date: 05/01/2024 08:38 ET Assigned Physician: Paras Weeks Reviewed and Electronically Signed By: Paras Weeks Signed Date: 05/01/2024 08:41 ET Workstation ID: [id number] Transcribed By: Self Edit Transcribed Date: 05/01/2024 [...] pulmonary disease. No change since 03/16/2024. Code 33337 -------- FINAL REPORT -------- Dictated By: Paras Weeks Dictated Date: 05/01/2024 08:38 ET Assigned Physician: Paras Weeks Reviewed and Electronically Signed By: Paras Weeks Signed Date: 05/01/2024 08:41 ET Workstation ID: [id number] Transcribed By: Self Edit Transcribed Date: 05/01/2024 08:38 ET us Edgadro Cervantes DO IMG XR PROCEDURES Final Result * ECG 12 lead (04/30/2024 8:17 PM EST) [facility] Ventricular Rate ECG 80 BPM GEMUSE Atrial Rate 80 BPM GEMUSE P-R Interval 198 ms GEMUSE QRS Duration 76 ms GEMUSE Q-T Interval 396 ms GEMUSE QTc 456 ms GEMUSE P Wave [place] 32 degrees GEMUSE R [place] 2 degrees GEMUSE T [place] 24 degrees GEMUSE ECG Interpretation Normal sinus rhythm Normal ECG When compared with ECG of 18-MAR-2024 06:00, T wave amplitude has decreased in Lateral leads Confirmed by Nahid SMITH JOHN ([id number]) on 05/01/2024 7:50:24 AM GEMUSE 04/30/2024 8:17 PM EST 05/01/2024 7:50 AM EST us Edgardo Cervantes DO ECG ORDERABLES Final Result Performing Organization Address [facility] de Phone Number GEMUSE * Cortisol (04/30/2024 8:00 PM EST) [facility] Cortisol 4.3 mcg/dL LAB CHEMISTRY METHOD 04/30/2024 9:44 PM EST [facility] Blood Venous blood specimen / Unknown Venipuncture / Unknown 04/30/2024 8:00 PM EST 04/30/2024 8:30 PM EST Narrative [facility] - 04/30/2024 9:44 PM EST CORTISOL REFERENCE RANGE ?? 8 AM SPEC: ??5.0-23.0 mcg/dL ?? 4 PM SPEC: ??3.0-16.0 mcg/dL ?? 8 PM SPEC: ??<5.0 mcg/dL us Brenda DELATORRE LAB BLOOD ORDERABLES Final Result Performing Organization Address [facility]/ZIP Co de Phone Number [facility] [address] [place] [address], [place] [phone] * (ABNORMAL) CBC auto differential (04/30/2024 8:00 PM EST) WBC 7.6 4.8 - 10.8 K/mcL LAB HEMETOLOGY METHOD 04/30/2024 8:37 PM [facility] RBC 3.50(L) 3.80 - 4.80 M[facility] LAB HEMETOLOGY METHOD 04/30/2024 8:37 PM [facility] Hemoglobin 9.7(L) 11.5 - 16.0 g/dL LAB HEMETOLOGY METHOD 04/30/2024 8:37 PM [facility] Hematocrit 28.7(L) 35.0 - 47.0 % LAB HEMETOLOGY METHOD 04/30/2024 8:37 PM [facility] MCV 82.5 79.0 - 98.0 FL LAB HEMETOLOGY METHOD 04/30/2024 8:37 PM [facility] MCH 27.9 27.0 - 32.0 pcg LAB HEMETOLOGY METHOD 04/30/2024 8:37 PM [facility] MCHC 33.8 32.0 - 37.0 g/dL LAB HEMETOLOGY METHOD 04/30/2024 8:37 PM [facility] RDW 16.4(H) 11.0 - 15.0 % LAB HEMETOLOGY METHOD 04/30/2024 8:37 PM [facility] Platelets 304 130 - 400 K/mcL LAB HEMETOLOGY METHOD 04/30/2024 8:37 PM [facility] MPV 9.1 7.0 - 11.0 FL LAB HEMETOLOGY METHOD 04/30/2024 8:37 PM [facility] NRBC 0.0 <1.0 % LAB HEMETOLOGY METHOD 04/30/2024 8:37 PM [facility] NRBC Absolute 0.00 <0.10 K/[facility] HEMETOLOGY METHOD 04/30/2024 8:37 PM [facility] Neutrophils Relative 49.9 % LAB HEMETOLOGY METHOD 04/30/2024 8:37 PM [facility] Lymphocytes Relative 39.1 % LAB HEMETOLOGY METHOD 04/30/2024 8:37 PM [facility] Monocytes Relative 9.9 % LAB HEMETOLOGY METHOD 04/30/2024 8:37 PM [facility] Eosinophils Relative 0.3 % LAB HEMETOLOGY METHOD 04/30/2024 8:37 PM [facility] Basophils Relative 0.5 % LAB HEMETOLOGY METHOD 04/30/2024 8:37 PM [facility] Immature Granulocytes Relative 0.3 % LAB HEMETOLOGY METHOD 04/30/2024 8:37 PM [facility] Neutrophils Absolute 3.81 1.50 - 7.00 K/mcL LAB HEMETOLOGY METHOD 04/30/2024 8:37 PM [facility] Lymphocytes Absolute 2.99 1.00 - 5.00 K/mcL LAB HEMETOLOGY METHOD 04/30/2024 8:37 PM [facility] Monocytes Absolute 0.76 0.20 - 1.00 K/mcL LAB HEMETOLOGY METHOD 04/30/2024 8:37 PM [facility] Eosinophils Absolute 0.02 0.00 - 0.50 K/mcL LAB HEMETOLOGY METHOD 04/30/2024 8:37 PM [facility] Basophils Absolute 0.04 0.00 - 0.20 K/mcL LAB HEMETOLOGY METHOD 04/30/2024 8:37 PM [facility] Immature Granulocytes Absolute 0.02 0.00 - 0.03 K/mcL LAB HEMETOLOGY METHOD 04/30/2024 8:37 PM [facility] Blood Venous blood specimen / Unknown Venipuncture / Unknown 04/30/2024 8:00 PM EST 04/30/2024 8:31 PM EST us Edgardo Cervantes DO LAB BLOOD ORDERABLES Final Res ult Performing Organization Address [facility]/ZIP Co de Phone Number [facility] [address] [place] [address], [place] [phone] * B-type natriuretic peptide (04/30/2024 8:00 PM EST) BNP 30 <=100 pcg/mL LAB CHEMISTRY METHOD 04/30/2024 9:05 PM EST [facility] Blood Venous blood specimen / Unknown Venipuncture / Unknown 04/30/2024 8:00 PM EST 04/30/2024 8:30 PM EST us Edgardo Cervantes DO LAB BLOOD ORDERABLES Final Res ult Performing Organization Address [facility] Co de Phone Number [facility] [address] [place] [address], [place] [phone] * Magnesium (04/30/2024 8:00 PM EST) Magnesium 2.0 1.9 - 2.6 mg/dL LAB CHEMISTRY METHOD 04/30/2024 9:07 PM EST [facility] Blood Venous blood specimen / Unknown Venipuncture / Unknown 04/30/2024 8:00 PM EST 04/30/2024 8:30 PM EST us Edgardo Cervantes DO LAB BLOOD ORDERABLES Final Res ult Performing Organization Address [facility]/ZIP Co de Phone Number [facility] [address] [place] [address], [place] [phone] * Lipase (04/30/2024 8:00 PM EST) Lipase 34 13 - 75 unit/L LAB CHEMISTRY METHOD 04/30/2024 9:07 PM EST [facility] Blood Venous blood specimen / Unknown Venipuncture / Unknown 04/30/2024 8:00 PM EST 04/30/2024 8:30 PM EST us Edgardo Cervantes DO LAB BLOOD ORDERABLES Final Res ult [facility] [address] [place] [address], [place] [phone] * Comprehensive metabolic panel (04/30/2024 8:00 PM EST) Pathologist [facility] Sodium 140 133 - 145 mmol/L LAB CHEMISTRY METHOD 04/30/2024 9:16 PM [facility] Potassium 3.8 3.5 - 5.5 mmol/L LAB CHEMISTRY METHOD 04/30/2024 9:16 PM [facility] Chloride 109 96 - 110 mmol/L LAB CHEMISTRY METHOD 04/30/2024 9:16 PM [facility] CO2 24 21 - 32 mmol/L LAB CHEMISTRY METHOD 04/30/2024 9:16 PM [facility] Anion Gap 7 3 - 11 LAB CHEMISTRY METHOD 04/30/2024 9:16 PM [facility] Glucose 84 70 - 100 mg/dL LAB CHEMISTRY METHOD 04/30/2024 9:16 PM [facility] BUN 9 5 - 25 mg/dL LAB CHEMISTRY METHOD 04/30/2024 9:16 PM [facility] Creatinine 0.67 0.50 - 1.10 mg/dL LAB CHEMISTRY METHOD 04/30/2024 9:16 PM [facility] eGFR 109 >=60 mL/min/1. 73m2 LAB CHEMISTRY METHOD 04/30/2024 9:16 PM [facility] Comment:Calculation based on the??Chronic Kidney Disease Epidemiology Collaboration (CKD-EPI) equation refit??without adjustment for race. BUN/Creatinine Ratio 13.4 LAB CHEMISTRY METHOD 04/30/2024 9:16 PM [facility] Calcium 8.9 8.5 - 10.5 mg/dL LAB CHEMISTRY METHOD 04/30/2024 9:16 PM [facility] AST (SGOT) 13 10 - 42 unit/L LAB CHEMISTRY METHOD 04/30/2024 9:16 PM [facility] ALT (SGPT) 20 10 - 60 unit/L LAB CHEMISTRY METHOD 04/30/2024 9:16 PM [facility] Alkaline Phosphatase 77 42 - 121 unit/L LAB CHEMISTRY METHOD 04/30/2024 9:16 PM [facility] Total Protein 7.0 6.0 - 8.0 g/dL LAB CHEMISTRY METHOD 04/30/2024 9:16 PM [facility] Albumin 3.5 3.2 - 5.0 g/dL LAB CHEMISTRY METHOD 04/30/2024 9:16 PM [facility] Total Bilirubin 0.3 0.0 - 1.4 mg/dL LAB CHEMISTRY METHOD 04/30/2024 9:16 PM [facility] Blood Venous blood specimen / Unknown Venipuncture / Unknown 04/30/2024 8:00 PM EST 04/30/2024 8:30 PM EST us Edgardo Cervantes DO LAB BLOOD ORDERABLES Final Res ult [facility] [address] [place] [address], * Troponin I high sensitivity (04/30/2024 8:00 PM EST) High Sensitivity Troponin I <3 <=54 ng/L LAB CHEMISTRY METHOD 04/30/2024 8:58 PM [facility] Blood Venous blood specimen / Unknown Venipuncture / Unknown 04/30/2024 8:00 PM EST 04/30/2024 8:31 PM EST [facility]ative [facility]) [facility] - 04/30/2024 8:58 PM EST High levels of biotin in samples may falsely decrease hsTroponin values. ??Use caution when interpreting hsTroponin results in patients taking biotin who exhibit renal impairment (eGFR <60) or in patients taking more than 20 mg/day of biotin. us Edgardo Cervantes DO LAB BLOOD ORDERABLES Final Res ult [facility] ([facility] [address] [place] [address], [place] [phone] documented in this encounter Visit Diagnoses Diagnosis [...] 04/30/2024 documented in this encounter Care Teams Electroplater Relationship Specialty Start Date End Date Lisseth Nassar NP [address] [place] [id number] PCP - General 07/07/21 documented as of this encounter
== END 2024-05-04 12:39 | disposition home or self-care (01) ==
PROVIDERS: PCP Nurse Practitioner Family; Visit Provider Internal Medicine Gastroenterology
DX: R79.89 Other specified abnormal findings of blood chemistry (principal)
CPT/HCPCS: 99214

== ENCOUNTER → 2024-05-04 11:53 | Outpatient (BNVA) | payer MEDICARE, MEDICAID, SELFPAY | PROVIDERS: PCP Nurse Practitioner Family; Visit Provider Internal Medicine Gastroenterology | DX: R79.89 Other specified abnormal findings of blood chemistry (principal) | CPT/HCPCS: 99212 ==

== ENCOUNTER 2024-05-16 15:24 | Outpatient (AMB) | payer MEDICARE, MEDICAID, SELFPAY ==
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
[2024-05-16 15:29] VITALS: BP 114/64; PULSE 93; O2SAT 95; BMI 26.8
--- OUTSIDE RECORDS SUMMARY | 2024-05-16 18:39 | XMS_ITS | Encounter Summary ---
Author Organization [email or web address] Address [address] [place] [address] Care Team Providers Care Diamond Driller Helper Name Role Phone Lisseth Nassar ROUNDING MACHINE OPERATOR Primary Care Provider [phone]- [phone] Reason for Visit * Reason Comments Shortness of Breath NAUSEA WEAKNESS SOB TODAY STARTED EXPERIENCING CHEST PAIN. H/X RENAL INJURY ADRENAL INSUFF, CYSTITIS, HI, GASTRIC BYPASS Chest Pain Encounter Details Date Type Department Care Team (Late st Contact Info) Description 04/30/2024 7:35 PM EST - 04/30/2024 11:[address] [facility] Emergency [address] [place] [id number] Anemia, unspecified type (Primary Dx) Discharge Disposition: [...] and hematocrit is 28.7. Please call your pin maker tomorrow for ongoing management of your anemia. Continue taking your medications as previously prescribed and stay very well hydrated with water. Follow up with your primary provider. Call tomorrow for appointment. Return to Emergency Department if symptoms worsen, do not improve, or any other concern. Get well soon! Thank you for coming to the [facility] Emergency Department today. Our entire team works [...] to make arrangements to follow up. [facility] [place] [facility] Kami Sylwia Lauro * Attachments The following attachments cannot be sent through Care Everywhere. * Anemia (Spanish) documented in this encounter Medications at Time [...] mid sternal CP earlier and states a HI hx, states she took one baby aspirin [...] PAIN. H/X RENAL INJURY ADRENAL INSUFF, CYSTITIS, HI, GASTRIC BYPASS. 324 ASA GIVEN Juan Alberto Rich RN 04/30/241905 * JUAN RAMON Connors - 04/30/2024 6:50 PM EST Emergency Medicine Note Patient Name: Eboni Tatum Initial Evaluation: 04/30/2024 : 1975 Patient's PCP: Lisseth Nassar NP Emergency Physician: JUAN RAMON Connors History of Present Illness Chief Complaint: Chief Complaint Patient presents with Shortness of Breath NAUSEA WEAKNESS SOB TODAY STARTED EXPERIENCING CHEST PAIN. H/X RENAL INJURY ADRENAL INSUFF, CYSTITIS, HI, GASTRIC BYPASS Chest Pain This is a [...] vomiting. Patient was hospitalized last week at [facility] for her adrenal insufficiency. Patient denies [...] Irritable bowel syndrome Low serum cortisol level HI (myocardial infarction) (CMS/HCC) Non-ischemic cardiomyopathy (CMS/HCC) Opioid type dependence, continuous (CMS/HCC) Past Surgical History: Procedure Laterality Date BREAST REDUCTION PROCEDURE: GA BREAST REDUCTION SECTION, LOW TRANSVERSE GASTRIC BYPASS [...] REFLEX MICROSCOPIC AND CULTURE - Normal Specific Carson Urine 1.011 pH, Urine 7.0 Leukocytes, Urine Negative Nitrite, Urine Negative Protein, Urine Negative Glucose, Urine Negative Ketones, Urine Negative Urobilinogen, Urine 0.2 Bilirubin, Urine Negative Blood, Urine Negative CBC AND DIFFERENTIAL Narrative: The following orders were created for panel order CBC and differential. Procedure Abnormality Status --------- ------ CBC auto differential[[id number]] Abnormal Final result Please view results for [...] Abnormality Status --------- ------ Urinalysis with reflex ...[[id number]] Normal Final result Mccoy urine culture tube[[id number]] In process Please view results for these [...] Tube Hold for add-ons. 05/01/2024 12:01 AM [facility] Comment:Auto resulted. Urine Urine specimen obtained by clean catch procedure / Unknown Non-blood Collection / Unknown 04/30/2024 10:34 PM EST 04/30/2024 10:40 PM EST Brenda DELATORRE LAB URINE ORDERABLES Final Result [facility] [address] [place] [address], * Urinalysis with reflex microscopic and culture (04/30/2024 10:34 PM EST) Specific Carson Urine 1.011 1.003 - 1.030 LAB URINALYSIS - AUTOMATED METHOD 04/30/2024 10:46 PM [facility] pH, Urine 7.0 5.0 - 8.0 pH LAB URINALYSIS - AUTOMATED METHOD 04/30/2024 10:46 PM [facility] Leukocytes, Urine Negative Negative LAB URINALYSIS - AUTOMATED METHOD 04/30/2024 10:46 PM [facility] Nitrite, Urine Negative Negative LAB URINALYSIS - AUTOMATED METHOD 04/30/2024 10:46 PM [facility] Protein, Urine Negative <=Trace mg/dL LAB URINALYSIS - AUTOMATED METHOD 04/30/2024 10:46 PM [facility] Glucose, Urine Negative Negative mg/dL LAB URINALYSIS - AUTOMATED METHOD 04/30/2024 10:46 PM [facility] Ketones, Urine Negative Negative mg/dL LAB URINALYSIS - AUTOMATED METHOD 04/30/2024 10:46 PM [facility] Urobilinogen, Urine 0.2 0.2 - 1.0 mg/dL LAB URINALYSIS - AUTOMATED METHOD 04/30/2024 10:46 PM [facility] Bilirubin, Urine Negative Negative LAB URINALYSIS - AUTOMATED METHOD 04/30/2024 10:46 PM EST [facility] Blood, Urine Negative Negative LAB URINALYSIS - AUTOMATED METHOD 04/30/2024 10:46 PM EST [facility] Urine Urine specimen obtained by clean catch procedure / Unknown Non-blood Collection / Unknown 04/30/2024 10:34 PM EST 04/30/2024 10:40 PM EST Brenda DELATORRE LAB URINE ORDERABLES Final Result Performing Organization Address [facility]/ZIP Co de Phone Number [facility] [address] [place] [address], * Troponin I high sensitivity (04/30/2024 9:42 PM EST) High Sensitivity Troponin I 4 <=54 ng/L LAB CHEMISTRY METHOD 04/30/2024 10:35 PM EST [facility] Blood Venous blood specimen / Unknown Venipuncture / Unknown 04/30/2024 9:42 PM EST 04/30/2024 10:12 PM EST Narrative [facility] - 04/30/2024 10:35 PM EST High levels of biotin in samples may falsely decrease hsTroponin values. ??Use caution when interpreting hsTroponin results in patients taking biotin who exhibit renal impairment (eGFR <60) or in patients taking more than 20 mg/day of biotin. Edgardo Cervantes DO LAB BLOOD ORDERABLES Final Res ult Performing Organization Address [facility]/ZIP Co de Phone Number [facility] [address] [place] [address], * XR Chest 2 Views (04/30/2024 8:28 PM EST) Anatomical Region Laterality Modality Body Radiographic Vicenta ging 05/01/2024 8:38 AM EST Impressions 05/01/2024 8:41 AM EST No acute pulmonary disease. No change since 03/16/2024. Code 79616 -------- FINAL REPORT -------- Dictated By: Paras Weeks Dictated Date: 05/01/2024 08:38 ET Assigned Physician: Paras Weeks Reviewed and Electronically Signed By: Paras Weeks Signed Date: 05/01/2024 08:41 ET Workstation ID: [id number] Transcribed By: Self Edit Transcribed Date: 05/01/2024 [...] pulmonary disease. No change since 03/16/2024. Code 15622 -------- FINAL REPORT -------- Dictated By: Paras Weeks Dictated Date: 05/01/2024 08:38 ET Assigned Physician: Paras Weeks Reviewed and Electronically Signed By: Paras Weeks Signed Date: 05/01/2024 08:41 ET Workstation ID: [id number] Transcribed By: Self Edit Transcribed Date: 05/01/2024 08:38 ET us Edgardo Cervantes DO IMG XR PROCEDURES Final Result * ECG 12 lead (04/30/2024 8:17 PM EST) [facility] Ventricular Rate ECG 80 BPM GEMUSE Atrial Rate 80 BPM GEMUSE P-R Interval 198 ms GEMUSE QRS Duration 76 ms GEMUSE Q-T Interval 396 ms GEMUSE QTc 456 ms GEMUSE P Wave Bethesda 32 degrees GEMUSE R [place] 2 degrees GEMUSE T [place] 24 degrees GEMUSE ECG Interpretation Normal sinus rhythm Normal ECG When compared with ECG of 18-MAR-2024 06:00, T wave amplitude has decreased in Lateral leads Confirmed by Nahid SMITH JOHN ([id number]) on 05/01/2024 7:50:24 AM GEMUSE 04/30/2024 8:17 PM EST 05/01/2024 7:50 AM EST us Edgardo Cervantes DO ECG ORDERABLES Final Result Performing Organization Address [facility] de Phone Number GEMUSE * Cortisol (04/30/2024 8:00 PM EST) [facility] Cortisol 4.3 mcg/dL LAB CHEMISTRY METHOD 04/30/2024 9:44 PM EST [facility] Blood Venous blood specimen / Unknown Venipuncture / Unknown 04/30/2024 8:00 PM EST 04/30/2024 8:30 PM EST Narrative [facility] - 04/30/2024 9:44 PM EST CORTISOL REFERENCE RANGE ?? 8 AM SPEC: ??5.0-23.0 mcg/dL ?? 4 PM SPEC: ??3.0-16.0 mcg/dL ?? 8 PM SPEC: ??<5.0 mcg/dL us rBenda DELATORRE LAB BLOOD ORDERABLES Final Result Performing Organization Address [facility]/ZIP Co de Phone Number [facility]) [facility] [address] [place] [address], [place] [phone] * (ABNORMAL) CBC auto differential (04/30/2024 8:00 PM EST) WBC 7.6 4.8 - 10.8 K/mcL LAB HEMETOLOGY METHOD 04/30/2024 8:37 PM [facility] RBC 3.50(L) 3.80 - 4.80 M/[facility] LAB HEMETOLOGY METHOD 04/30/2024 8:37 PM [facility] Hemoglobin 9.7(L) 11.5 - 16.0 g/dL LAB HEMETOLOGY METHOD 04/30/2024 8:37 PM [facility] Hematocrit 28.7(L) 35.0 - 47.0 % LAB HEMETOLOGY METHOD 04/30/2024 8:37 PM [facility] MCV 82.5 79.0 - 98.0 FL LAB HEMETOLOGY METHOD 04/30/2024 8:37 PM [facility] MCH 27.9 27.0 - 32.0 pcg LAB HEMETOLOGY METHOD 04/30/2024 8:37 PM [facility] MCHC 33.8 32.0 - 37.0 g/dL LAB HEMETOLOGY METHOD 04/30/2024 8:37 PM [facility] RDW 16.4(H) 11.0 - 15.0 % LAB HEMETOLOGY METHOD 04/30/2024 8:37 PM [facility] Platelets 304 130 - 400 K/mcL LAB HEMETOLOGY METHOD 04/30/2024 8:37 PM [facility] MPV 9.1 7.0 - 11.0 FL LAB HEMETOLOGY METHOD 04/30/2024 8:37 PM [facility] NRBC 0.0 <1.0 % LAB HEMETOLOGY METHOD 04/30/2024 8:37 PM [facility] NRBC Absolute 0.00 <0.10 K/[facility] LAB HEMETOLOGY METHOD 04/30/2024 8:37 PM [facility] Neutrophils Relative 49.9 % LAB HEMETOLOGY METHOD 04/30/2024 8:37 PM [facility] Lymphocytes Relative 39.1 % LAB HEMETOLOGY METHOD 04/30/2024 8:37 PM [facility] Monocytes Relative 9.9 % LAB HEMETOLOGY METHOD 04/30/2024 8:37 PM [facility] Eosinophils Relative 0.3 % LAB HEMETOLOGY METHOD 04/30/2024 8:37 PM [facility] Basophils Relative 0.5 % LAB HEMETOLOGY METHOD 04/30/2024 8:37 PM [facility] Immature Granulocytes Relative 0.3 % LAB HEMETOLOGY METHOD 04/30/2024 8:37 PM [facility] Neutrophils Absolute 3.81 1.50 - 7.00 K/mcL LAB HEMETOLOGY METHOD 04/30/2024 8:37 PM [facility] Lymphocytes Absolute 2.99 1.00 - 5.00 K/mcL LAB HEMETOLOGY METHOD 04/30/2024 8:37 PM [facility] Monocytes Absolute 0.76 0.20 - 1.00 K/mcL LAB HEMETOLOGY METHOD 04/30/2024 8:37 PM [facility] Eosinophils Absolute 0.02 0.00 - 0.50 K/mcL LAB HEMETOLOGY METHOD 04/30/2024 8:37 PM [facility] Basophils Absolute 0.04 0.00 - 0.20 K/mcL LAB HEMETOLOGY METHOD 04/30/2024 8:37 PM [facility] Immature Granulocytes Absolute 0.02 0.00 - 0.03 K/mcL LAB HEMETOLOGY METHOD 04/30/2024 8:37 PM [facility] Blood Venous blood specimen / Unknown Venipuncture / Unknown 04/30/2024 8:00 PM EST 04/30/2024 8:31 PM EST us Edgardo Cervantes DO LAB BLOOD ORDERABLES Final Res ult Performing Organization Address [facility]/ZIP Co de Phone Number [facility] [address] [place] [address], [place] [phone] * B-type natriuretic peptide (04/30/2024 8:00 PM EST) BNP 30 <=100 pcg/mL LAB CHEMISTRY METHOD 04/30/2024 9:05 PM EST [facility] Blood Venous blood specimen / Unknown Venipuncture / Unknown 04/30/2024 8:00 PM EST 04/30/2024 8:30 PM EST us Edgardo Cervantes DO LAB BLOOD ORDERABLES Final Res ult Performing Organization Address [facility] Co de Phone Number [facility] [address] [place] [address], [place] [phone] * Magnesium (04/30/2024 8:00 PM EST) Magnesium 2.0 1.9 - 2.6 mg/dL LAB CHEMISTRY METHOD 04/30/2024 9:07 PM EST [facility] Blood Venous blood specimen / Unknown Venipuncture / Unknown 04/30/2024 8:00 PM EST 04/30/2024 8:30 PM EST us Edgardo Cervantes DO LAB BLOOD ORDERABLES Final Res ult Performing Organization Address [facility]/ZIP Co de Phone Number [facility] [address] [place] [address], [place] [phone] * Lipase (04/30/2024 8:00 PM EST) Lipase 34 13 - 75 unit/L LAB CHEMISTRY METHOD 04/30/2024 9:07 PM EST [facility] Blood Venous blood specimen / Unknown Venipuncture / Unknown 04/30/2024 8:00 PM EST 04/30/2024 8:30 PM EST us Edgardo Cervantes DO LAB BLOOD ORDERABLES Final Res ult [facility] [address] [place] [address], [place] [phone] * Comprehensive metabolic panel (04/30/2024 8:00 PM EST) Pathologist [facility] Sodium 140 133 - 145 mmol/L LAB CHEMISTRY METHOD 04/30/2024 9:16 PM [facility] Potassium 3.8 3.5 - 5.5 mmol/L LAB CHEMISTRY METHOD 04/30/2024 9:16 PM [facility] Chloride 109 96 - 110 mmol/L LAB CHEMISTRY METHOD 04/30/2024 9:16 PM [facility] CO2 24 21 - 32 mmol/L LAB CHEMISTRY METHOD 04/30/2024 9:16 PM [facility] Anion Gap 7 3 - 11 LAB CHEMISTRY METHOD 04/30/2024 9:16 PM [facility] Glucose 84 70 - 100 mg/dL LAB CHEMISTRY METHOD 04/30/2024 9:16 PM [facility] BUN 9 5 - 25 mg/dL LAB CHEMISTRY METHOD 04/30/2024 9:16 PM [facility] Creatinine 0.67 0.50 - 1.10 mg/dL LAB CHEMISTRY METHOD 04/30/2024 9:16 PM [facility] eGFR 109 >=60 mL/min/1. 73m2 LAB CHEMISTRY METHOD 04/30/2024 9:16 PM [facility] Comment:Calculation based on the??Chronic Kidney Disease Epidemiology Collaboration (CKD-EPI) equation refit??without adjustment for race. BUN/Creatinine Ratio 13.4 LAB CHEMISTRY METHOD 04/30/2024 9:16 PM [facility] Calcium 8.9 8.5 - 10.5 mg/dL LAB CHEMISTRY METHOD 04/30/2024 9:16 PM [facility] AST (SGOT) 13 10 - 42 unit/L LAB CHEMISTRY METHOD 04/30/2024 9:16 PM [facility] ALT (SGPT) 20 10 - 60 unit/L LAB CHEMISTRY METHOD 04/30/2024 9:16 PM [facility] Alkaline Phosphatase 77 42 - 121 unit/L LAB CHEMISTRY METHOD 04/30/2024 9:16 PM [facility] Total Protein 7.0 6.0 - 8.0 g/dL LAB CHEMISTRY METHOD 04/30/2024 9:16 PM [facility] Albumin 3.5 3.2 - 5.0 g/dL LAB CHEMISTRY METHOD 04/30/2024 9:16 PM [facility] Total Bilirubin 0.3 0.0 - 1.4 mg/dL LAB CHEMISTRY METHOD 04/30/2024 9:16 PM [facility] Blood Venous blood specimen / Unknown Venipuncture / Unknown 04/30/2024 8:00 PM EST 04/30/2024 8:30 PM EST us Edgardo Cervantes DO LAB BLOOD ORDERABLES Final Res ult [facility] [address] [place] [address], * Troponin I high sensitivity (04/30/2024 8:00 PM EST) High Sensitivity Troponin I <3 <=54 ng/L LAB CHEMISTRY METHOD 04/30/2024 8:58 PM [facility] Blood Venous blood specimen / Unknown Venipuncture / Unknown 04/30/2024 8:00 PM EST 04/30/2024 8:31 PM EST N[facility]ative [facility] - 04/30/2024 8:58 PM EST High levels of biotin in samples may falsely decrease hsTroponin values. ??Use caution when interpreting hsTroponin results in patients taking biotin who exhibit renal impairment (eGFR <60) or in patients taking more than 20 mg/day of biotin. us Edgardo Cervantes DO LAB BLOOD ORDERABLES Final Res ult [facility] ([facility] [address] [place] [address], [place] [phone] documented in this encounter Visit Diagnoses Diagnosis [...] 04/30/2024 documented in this encounter Care Teams Diamond Driller Helper Relationship Specialty Start Date End Date Lisseth Nassar NP [address] [place] [address] PCP - General 07/07/21 documented as of this encounter
--- OUTSIDE RECORDS SUMMARY | 2024-05-16 18:39 | XMS_ITS | Data Portability ---
Author Organization FALGUNI Davon Tejeda [facility] Address [address] [place] [address] Care Team Providers Care Inspector Materials And Processes Name Role Phone NESHA FENG Referring Provider [phone] Assessment Encounter Date Assessment Date Assessment LastModified [...] myself or one of our physician assistants [email or web address] Not available 02/16/2024 12:24:07 Plan of Treatment Reminders Order Date Submit Date Provider Last Modified By Organization Details Last Modified Time Details Appointments None recorded. Lab None recorded. Referral None recorded. Procedures None recorded. Surgeries None recorded. Imaging XR, knee, 3 view - 201 3v LTKR AB protocol 2023 024 [facility], [address], [address], [place], [address], 4 16:10:35 XR, knee, 3 view - Rm#305, 3 views of left knee, LTKR, post-fall . 2023 024 [facility]ro [facility], [address], [address], [place], [address], 4 08:49:31 Medication Orders None recorded. Patient TargetsNo targets recorded. Patient InstructionsNo instructions recorded. Reason for Referral None Reported. Results Created Date Observation Date Name Description Value Unit Range Abnormal Flag Note LastModifiedBy Organization Detail LastModifiedTime 09/08/19 24 09/08/2023 CBC WITH DIFFE RENTI AL/PL ATELE T WBC 5.0 K/mm3 4.0-11 .0 Not Available [address], [address], 09/08/2023 13:03:49 09/08/19 24 09/08/2023 CBC WITH DIFFE RENTI AL/PL ATELE T RBC 3.64 M/mm3 4.20-5 .40 below low normal Not Available [address], [address], 09/08/2023 13:03:49 09/08/19 24 09/08/2023 CBC WITH DIFFE RENTI AL/PL ATELE T hemoglobin 10.5 gm/dL 11.7-1 5.5 below low normal Not Available [address], [address], 09/08/2023 13:03:49 09/08/19 24 09/08/2023 CBC WITH DIFFE RENTI AL/PL ATELE T hematocrit 31.6 % 35.7-4 5.8 below low normal Not Available [address], [address], 09/08/2023 13:03:49 09/08/19 24 09/08/2023 CBC WITH DIFFE RENTI AL/PL ATELE T MCV 86.8 fL 80.0-1 00.0 Not Available [address], [address], 09/08/2023 13:03:49 09/08/19 24 09/08/2023 CBC WITH DIFFE RENTI AL/PL ATELE T MCH 28.8 pg 27.0-3 4.0 Not Available [address], [address], 09/08/2023 13:03:49 09/08/19 24 09/08/2023 CBC WITH DIFFE RENTI AL/PL ATELE T MCHC 33.2 g/dL 33.0-3 7.0 Not Available [address], [address], 09/08/2023 13:03:49 09/08/19 24 09/08/2023 CBC WITH DIFFE RENTI AL/PL ATELE T RDW 44.8 fL <47.0 Not Available [address], [address], 09/08/2023 13:03:49 09/08/19 24 09/08/2023 CBC WITH DIFFE RENTI AL/PL ATELE T platelets 212 K/mm3 150-46 0 Not Available [address], [address], 09/08/2023 13:03:49 09/08/19 24 09/08/2023 CBC WITH DIFFE RENTI AL/PL ATELE T neutrophils 50.1 % 44-76 Not Available [address], [address], 09/08/2023 13:03:49 09/08/19 24 09/08/2023 CBC WITH DIFFE RENTI AL/PL ATELE T lymphs 37.5 % 15-43 Not Available [address], [address], 09/08/2023 13:03:49 09/08/19 24 09/08/2023 CBC WITH DIFFE RENTI AL/PL ATELE T monocytes 8.8 % 4.5-10 .5 Not Available [address], [address], 09/08/2023 13:03:49 09/08/19 24 09/08/2023 CBC WITH DIFFE RENTI AL/PL ATELE T eos 2.6 % 0-6 Not Available [address], [address], 09/08/2023 13:03:49 09/08/19 24 09/08/2023 CBC WITH DIFFE RENTI AL/PL ATELE T basos 0.8 % 0-2 Not Available [address], [address], 09/08/2023 13:03:49 09/08/19 24 09/08/2023 CBC WITH DIFFE RENTI AL/PL ATELE T neutrophils (absolute) 2.5 K/mm3 1.3-7. 0 Not Available [address], [address], 09/08/2023 13:03:49 09/08/19 24 09/08/2023 CBC WITH DIFFE RENTI AL/PL ATELE T lymphs (absolute) 1.9 K/mm3 0.8-3. 1 Not Available [address], [address], 09/08/2023 13:03:49 09/08/19 24 09/08/2023 CBC WITH DIFFE RENTI AL/PL ATELE T monocytes(ab solute) 0.4 K/mm3 0.4-0. 9 Not Available [address], [address], 09/08/2023 13:03:49 09/08/19 24 09/08/2023 CBC WITH DIFFE RENTI AL/PL ATELE T eos (absolute) 0.1 K/mm3 0.0-0. 4 Not Available [address], [address], 09/08/2023 13:03:49 09/08/19 24 09/08/2023 CBC WITH DIFFE RENTI AL/PL ATELE T baso (absolute) 0.0 K/mm3 0.0-0. 1 Not Available [address], [address], 09/08/2023 13:03:49 09/08/19 24 09/08/2023 CBC WITH DIFFE RENTI AL/PL ATELE T immature granulocytes 0.2 % Not Available [address], [address], 09/08/2023 13:03:49 09/08/19 24 09/08/2023 CBC WITH DIFFE RENTI AL/PL ATELE T immature grans (abs) 0.0 K/mm3 Not Available [address], [address], 09/08/2023 13:03:49 09/08/19 24 09/08/2023 CBC WITH DIFFE RENTI AL/PL ATELE T NRBC 0.0 #/100 _WBC' s Not Available [address], [address], 09/08/2023 13:03:49 09/08/19 24 09/08/2023 CBC WITH DIFFE RENTI AL/PL ATELE T hematology comments: Commen t AUTOM ATED DIFFE RENTI AL MPV 10.8 FL 9.4-1 2.4 N ABS. NRBC 0.0 K/MM3 N Not Available [address], [address], 09/08/2023 13:03:49 09/08/19 24 09/08/2023 SEDIM ENTAT ION RATE- WESTE RGREN sedimentatio n rate-westerg butch 28 mm/HR 0-20 above high normal Not Available [address], [address], 09/08/2023 13:03:50 09/08/19 24 09/08/2023 C-CHA CTIVE PROTE IN, QUANT C-reactive protein, quant 1.2 mg/dL 0-0.5 above high normal Not Available [address], [address], 09/08/2023 13:03:50 03/22/19 25 03/22/2024 CBC WITH DIFFE RENTI AL/PL ATELE T WBC 7.0 x10e3 /uL 3.4-10 .8 normal Not Available [facility] ([facility]) [address] [place], [address], 03/23/2024 08:08:19 03/22/19 25 03/22/2024 CBC WITH DIFFE RENTI AL/PL ATELE T RBC 3.40 x10e6 /uL 3.77-5 .28 below low normal Not Available [facility] ([facility]) [address] [place], [address], 03/23/2024 08:08:19 03/22/1903/22/2024 CBC WITH DIFFE RENTI AL/PL ATELE T hemoglobin 9.5 g/dL 11.1-1 5.9 below low normal Not Available [facility] ([facility]) [address] [place], [address], 03/23/2024 08:08:19 03/22/19 25 03/22/2024 CBC WITH DIFFE RENTI AL/PL ATELE T hematocrit 30.1 % 34.0-4 6.6 below low normal Not Available [facility] ([facility]) [address] [place], [address], 03/23/2024 08:08:19 03/22/1903/22/2024 CBC WITH DIFFE RENTI AL/PL ATELE T MCV 89 fL 79-97 normal Not Available [facility] ([facility]) [address] [facility], [place], [address], 03/23/2024 08:08:19 03/22/1903/22/2024 CBC WITH DIFFE RENTI AL/PL ATELE T MCH 27.9 pg 26.6-3 3.0 normal Not Available [facility] ([facility]) [address] [facility], [place], [address], 03/23/2024 08:08:19 03/22/1903/22/2024 CBC WITH DIFFE RENTI AL/PL ATELE T MCHC 31.6 g/dL 31.5-3 5.7 normal Not Available [facility] ([facility]) [address] [facility], [place], [address], 03/23/2024 08:08:19 03/22/1903/22/2024 CBC WITH DIFFE RENTI AL/PL ATELE T RDW 17.0 % 11.7-1 5.4 above high normal Not Available [facility] ([facility]) [address] [facility], [place], [address], 03/23/2024 08:08:19 03/22/1903/22/2024 CBC WITH DIFFE RENTI AL/PL ATELE T platelets 248 x10e3 /uL 150-45 0 normal Not Available [facility] ([facility]) [address] [place], [address], 03/23/2024 08:08:19 03/22/1903/22/2024 CBC WITH DIFFE RENTI AL/PL ATELE T neutrophils 66 % not estab. normal Not Available [facility] ([facility]) [address] [place], [address], 03/23/2024 08:08:19 03/22/19 25 03/22/2024 CBC WITH DIFFE RENTI AL/PL ATELE T lymphs 25 % not estab. normal Not Available [facility] ([facility]) [address] [facility], [place], [address], 03/23/2024 08:08:19 03/22/19 25 03/22/2024 CBC WITH DIFFE RENTI AL/PL ATELE T monocytes 8 % not estab. normal Not Available [facility] ([facility]) [address] [facility], [place], [address], 03/23/2024 08:08:19 03/22/1903/22/2024 CBC WITH DIFFE RENTI AL/PL ATELE T eos 1 % not estab. normal Not Available [facility] ([facility]) [address] [facility], [place], [address], 03/23/2024 08:08:19 03/22/1903/22/2024 CBC WITH DIFFE RENTI AL/PL ATELE T basos 0 % not estab. normal Not Available [facility] ([facility]) [address] [facility], [place], [address], 03/23/2024 08:08:19 03/22/19 25 03/22/2024 CBC WITH DIFFE RENTI AL/PL ATELE T immature cells WASTE [employer]LECTION DRIVER Not Available [facility] ([facility]) [address] [facility], [place], [address], 03/23/2024 08:08:19 03/22/1903/22/2024 CBC WITH DIFFE RENTI AL/PL ATELE T neutrophils (absolute) 4.6 x10e3 /uL 1.4-7. 0 normal Not Available [facility] ([facility]) [address] [facility], [place], [address], 03/23/2024 08:08:19 03/22/19 25 03/22/2024 CBC WITH DIFFE RENTI AL/PL ATELE T lymphs (absolute) 1.7 x10e3 /uL 0.7-3. 1 normal Not Available [facility] ([facility]) [address] [place], [address], 03/23/2024 08:08:19 03/22/19 25 03/22/2024 CBC WITH DIFFE RENTI AL/PL ATELE T monocytes(ab solute) 0.6 x10e3 /uL 0.1-0. 9 normal Not Available [facility] ([facility]) [address] [facility], [place], [address], 03/23/2024 08:08:19 03/22/1903/22/2024 CBC WITH DIFFE RENTI AL/PL ATELE T eos (absolute) 0.1 x10e3 /uL 0.0-0. 4 normal Not Available [facility] ([facility]) [address] [place], [address], 03/23/2024 08:08:19 03/22/1903/22/2024 CBC WITH DIFFE RENTI AL/PL ATELE T baso (absolute) 0.0 x10e3 /uL 0.0-0. 2 normal Not Available [facility] ([facility]) [address] [place], [address], 03/23/2024 08:08:19 03/22/1903/22/2024 CBC WITH DIFFE RENTI AL/PL ATELE T immature granulocytes 0 % not estab. Not Available [facility] ([facility]) [address] [place], [address], 03/23/2024 08:08:19 03/22/1903/22/2024 CBC WITH DIFFE RENTI AL/PL ATELE T immature grans (abs) 0.0 x10e3 /uL 0.0-0. 1 Not Available [facility] ([facility]) [address] [place], [address], 03/23/2024 08:08:19 03/22/19 25 03/22/2024 CBC WITH DIFFE RENTI AL/PL ATELE T NRBC [employer]LE[employer]IVER Not Available [facility] ([facility]) [address] [facility], [place], [address], 03/23/2024 08:08:19 03/22/19 25 03/22/2024 CBC WITH DIFFE RENTI AL/PL ATELE T hematology comments: WASTE [employer]LECTION DRIVER Not Available [facility] ([facility]) [address] [facility], [place], [address], 03/23/2024 08:08:19 03/22/19 25 03/23/2024 SEDIM ENTAT ION RATE- WESTE RGREN sedimentatio n rate-westerg butch 26 mm/HR 0-32 normal Not Available [facility] ([facility]) [address] [facility], [place], [address], 03/23/2024 08:08:19 03/22/19 25 03/23/2024 C-CHA CTIVE PROTE IN, QUANT C-reactive protein, quant 4 mg/L 0-10 normal Not Available [facility] ([facility]) [address] [facility], [place], [address], 03/23/2024 08:08:20 09/09/19 24 09/09/2023 XR, knee, 3 view [email or web address]:/ [email or web address] ?Encry pted=s hAaTro YD8dLq bEUv6g %2BXZw aYqtaq 0bqfl% 2Fg9IQ a4ajBk vP9nXo QUaueC m3YtLR FvZlgJ JJ8mAn HZtai3 1c0690 AC0Kpa nSGWaH eUC8mr 84%3D INTERFACE [facility] [address], [place], [address], 09/09/2023 10:26:57 09/09/19 24 09/09/2023 XR, knee, 3 view [email or web address]:/ [email or web address] ?Encry pted=s hAaTro YD8dLq bEUv6g %2BXZw aYqtaq 0bqfl% 2Fg9IQ a4ajBk vP9nXo QUaueC m3YtLR FvZlgJ JJ8mAn HZtai3 6b4203 AC0Kpa nSGWaH eUC8mr 84%3D INTERFACE [facility] [address], [place], [address], 09/09/2023 10:26:59 11/12/19 24 01/06/2019 imagi ng/di [...] a4ajBk vP9nXo QUaueC m3YtLR FvZlgJ JJ8mAn HZtai3 6h4926 AC0Kqa XWFUaS nKiQtr MwF INTERFACE [facility] [address], [place], [address], 02/16/2024 10:29:25 02/16/20 24 02/16/2024 XR, knee, 3 view [email or web address]:/ [email or web address] ?Encry pted=s hAaTro YD8dLq bEUv6g %2BXZw aYqtaq 0bqfl% 2Fg9IQ a4ajBk vP9nXo QUaueC m3YtLR FvZlgJ JJ8mAn HZtai3 6u2494 AC0Kqa XWFUaS nKiQtr MwF INTERFACE [facility] [address] [facility] [address], [place], [address], 02/16/2024 10:29:27 Result Notes None recorded. Problems Name Problem SNOMED Code Status Onset Date Resolution Date Notes Provider Name and Address Organization Details Recorded Time No complaint s 034122088 Active Status: 'I'; Not Available [facility] 4 09:20:08 Trochante shanta bursitis of left hip 378897791191 103 Active 2023 Kenneth Fall MD [address], [place], [address] , [facility] 4 12:24:01 History of left total knee replaceme nt 535328202336 9105 Active 2023 Kenneth Fall MD [address] [facility], [place], [address] , [facility] 4 12:24:03 Hypertens ion disorder 27785133 Active 2018 Status: 'A'; Not Available [facility] 4 11:27:37 Derangeme nt of left knee 297453274758 85467 Active 2013 Status: 'A'; Not Available [facility] 4 11:27:37 Arthritis 5952400 Active 2018 Status: 'A'; Not Available [facility] 4 11:27:37 Asthma 803795655 Active 2018 Status: 'A'; Not Available [facility] 4 11:27:38 Pain of left knee joint 946296747638 107 Active 2015 Problem Code: M25.562; Problem Code Type: ICD-10; Status: 'A'; Not Available [facility] 4 11:27:38 Chondroma lacia of left patella 082792982328 106 Active 2015 Problem Code: M22.42; Problem Code Type: ICD-10; Status: 'A'; Not Available [facility] 11:27:38 Low back pain 971893259 Active 2015 Problem Code: M54.5; Problem Code Type: ICD-10; Status: 'A'; Not Available [facility] 11:27:38 Problem Notes None recorded. Procedures Surgical History Date Name Laterality Status Provider Name and Address Organization Details Recorded Time 02/16/20 Hip Kenalog 1cc Injection, L/R completed Kenneth Fall MD [address], [place], [address], [facility] 02/16/2024 12:23:49 06/10/19 Iovera completed Kenneth Fall MD [address], [place], [address], [facility] 06/10/2023 16:53:34 06/08/19 24 [address] Therapeutic Exercise (1:1) completed Luz Nobles [employer]ATION SUPERVISOR [address], [place], [address], [facility] 06/08/2023 17:39:21 06/08/19 24 10714: Manual therapy completed Luz Nobles [employer]LECT[employer] INSTALLATION SUPERVISOR [address], [place], [address], [facility] 06/08/2023 17:39:45 Imaging Results Imaging Date Name Status LastModified by Organiz ation Details LastModified Time 09/09/2023 XR, knee, 3 view completed INTERFACE [facility] [address], [place], [address], 09/09/2023 10:26:57 09/09/2023 XR, knee, 3 view completed INTERFACE [facility] [address], [place], [address], 09/09/2023 10:26:59 01/06/2019 imaging/diag nostic result completed Information not available 11/12/2023 04:41:53 01/06/2019 imaging/diag nostic result completed Information not available 11/12/2023 04:41:56 05/26/2022 imaging/diag nostic result completed Information not available 11/12/2023 04:44:55 02/16/2024 XR, knee, 3 view completed INTERFACE [facility] [address], [place], [address], 02/16/2024 10:29:25 02/16/2024 XR, knee, 3 view completed INTERFACE [facility] [address], [place], [address], 02/16/2024 10:29:27 Procedure Notes None recorded. Medical Equipment None Reported. Allergies Allergen ID Allergen Name Allergen Category Reaction Reaction Severity Criticality Documentation Date Start Date Code Code System Note Provider Name and Address Organization Details Recorded Time 479508 fentanyl medicatio n anaphylax is severe high 02/16/2024 4337 RxNorm Marlin sutton [place] - [facility] 4 10:20:21 758292 Depakote medicatio n tachycard ia mild high 02/16/2024 06999 9 RxNorm Marlin sutton [place] [facility] 10:20:43 82122 Zoloft medicatio n Not available Not available Not available 05/16/20232017 73028 RxNorm Not Available [facility] 13:27:15 88282 Non-stero idal anti-infl ammatory agent (product) medicatio n Not available Not available Not available 05/16/20232020 72308 005 SNOMED Not Available [facility] 4 13:27:15 92235 morphine sulfate medicatio n Not available Not available Not available 05/16/20232017 69861 RxNorm Not Available [facility] 4 13:27:15 80462 Bactrim medicatio n Not available Not available Not available 05/16/20232012 31869 9 RxNorm Not Available [facility] 4 13:27:16 17572 Substance with sulfonami de structure and antibacte rial mechanism of action (substanc e) medicatio n Not available Not available Not available 05/16/20232012 86110 8003 SNOMED Not Available [facility] 4 13:27:16 Medications Name Sig Start Date [...] Updated DateTime 06/10/2023 166.37 cm 29.2 kg/m2 85103.44 g NE ALAS [facility] 06/10/2023 15:02:06 Date Recorded Body height Body mass index (BMI) Body weight Provider Name and Address Organization Details Last Updated DateTime 09/09/2023 166.37 cm 29.2 kg/m2 52273.44 g Austin Richardson [facility] 09/09/2023 10:15:40 Date Recorded Body height Body mass index (BMI) Body weight Provider Name and Address Organization Details Last Updated DateTime 02/16/2024 166.37 cm 29.2 kg/m2 83476.44 g Marlin Roland [place] [facility] 02/16/2024 [...] SNOMED-CT Code Diagnosis ICD10 Code Diagnosis Note [id number] Juan Alberto Rodriguez PT [facility] [address] [place] [address] 06/08/2023 16:33:24 06/08/2023 18:00:37 History of left total knee replacement 1699820256 166210 Z96.652 Aftercare 279199302 Z47. 1 [id number] MD Bautista Medellin [address] [place] [address] 06/10/2023 14:42:23 07/01/2023 10:33:28 Pain of left knee joint 8846096578 65844 M25.295 [id number] LUIS Matthews 3rd floor [address] [place] [place] [address] 09/09/2023 09:58:53 10/07/2023 08:14:53 Postoperative care 850898798 Z48.89 History of left total knee replacement 4294935119 550541 Z96.652 Reviewed patient's imaging and exam findings [...] is indicative of infection at this time. [id number] MD Bautista Medellin [address] floor [address] [place] [address] 02/16/2024 10:03:36 03/02/2024 16:10:34 History of left total knee replacement 2969257468 641133 Z96.652 Trochanter ic bursitis of left hip 8972998708 47289 M70.62 Health Concerns Section Related Observation LastModified by Organization Detai ls LastModified Time None Recorded Concern Status LastModified by Organization Details LastModified Time None Recorded Advance Directives Directive None Recorded Payers Encounter Date Sequence Insurance Name Policy Number Policy Leo Covered Member ID Leo Member ID Guarantor Name 06/08/2023 2 [place] Eboni A Wickett [id number] Eboni A Wickett 06/08/2023 1 [place] Eboni A Wickett [id number] Eboni A Wickett 06/10/2023 2 [place] Eboni A Wickett [id number] Eboni A Wickett 06/10/2023 1 [place] Eboni A Rc [id number] Eboni A Wickett 09/09/2023 2 [place] Eboni A Rc [id number] Eboni A Wickett 09/09/2023 1 [place] Eboni A Rc [id number] Eboni A Rc 02/16/2024 2 [place] Eboni A Wickett [id number] Eboni A Wickett 02/16/2024 1 [place] Eboni A Wickett [id number] Eboni A Wickett Notes Date Note Type Note Provider Name and Address Organization Details Recorded Time 06/08/2023 text/html Pt reports no pa in n L coming in, just stiffness and fatigue. Pt is using a cane. Luz Nobles, ELECTRICAL INSTALLATION SUPERVISOR [address], [place], [address], [facility] 06/08/2023 18:00:29 09/09/2023 text/html [...] X-rays ordered, obtained and reviewed today at [facility]: reveal maintained alignment of the prosthetic components, No fracture or dislocation . Excellent interface. No interval change compared to previous radiographs. No evidence of asymmetric polyethylene wear. There is small enthesophyte off the superior and inferior patellar poles on lateral view which appears chronic but slightly progressed from her previous radiographs. No new fracture identified. Rima Villa PA-C [address] [facility] [address], [place], [address], [facility] 09/09/2023 10:59:35 02/16/2024 text/html [...] patient? s chart. Kenneth Fall MD [address] [facility] [address], [place], [address], [facility] 02/16/2024 12:24:24 OBGyn Episode No OBEpisode recorded.
--- OUTSIDE RECORDS SUMMARY | 2024-05-16 18:39 | XMS_ITS | Clinical Summary ---
Author Organization [facility] Address [address] [place] [address] Care Team Providers Care Operations Scheduler Name Role Phone Unavailable Primary Care Provider [...]
--- OUTSIDE RECORDS SUMMARY | 2024-05-16 18:40 | XMS_ITS | Clinical Summary ---
Author Organization [facility] Address [address] [place] [address] Phone Care Team Providers Care Wire Mesh Knitter Name Role Phone Lisseth Nassar ANIMAL BEHAVIOURIST Primary Care Provider [phone] Allergies Active Allergy Reactions Criticality Noted Date Comments Fentanyl Other,Fainting 02/09/2022 Haloperidol Anxiety Low 02/15/2022 Other Reaction(s): Feeling Irritable Morphine Low 08/12/2020 Redness around the site Nsaids (Non-Steroidal Anti-Inflammatory Drug) Other 09/08/2020 GI bleeding Sertraline Other 09/08/2020 Other Reaction(s): QT wave change interferes withQT waves of heart changed my QT interval has a jet worker changed my QT interval has a jet worker Sulfa (Sulfonamide Antibiotics) Rash Low 09/08/2020 Sulfamethoxazole-Trimet [...] EST - 04/30/2024 11:59 PM EST Emergency [facility] Emergency [address] [place] [phone] Anemia, unspecified type (Primary Dx) Discharge Disposition: Home or Self Care 03/19/2024 12:06 PM EST Anesthesia Event [facility] Endoscopy [address] [place] [phone] Benigno Knight DO 03/16/2024 6:41 PM EST - 03/19/2024 3:40 PM EST Hospital Encounter [facility] Medical Surgical Unit [address] [place] [phone] Sade Lutz MD Jones, Christopher, MD Nasser, Nada S, MD Surendran, Anupama, MD Acute kidney injury (CMS/HCC) (Primary Dx); Cyclic vomiting syndrome; History of gastric bypass; Cardiac enzymes elevated Discharge Disposition: Home or Self Care from Last 3 Months Surgical History Surgery Date Site/Laterality Comments BREAST REDUCTION PROCEDURE: CO BREAST REDUCTION LAPAROSCOPIC GASTRIC BANDING PROCEDURE: LAP [...] this topic Medical Devices Implanted Type Area Delivery Driver/Supervisor Device Identifier Shelf Expiration Date Model / [...] resultswithin the time period is included. [facility] Final Result * ECG-Outside (05/02/2024) Only the most recent of2 resultswithin the time period is included. Provider On[facility] [place] ECG ORDERABLES Final Result * Urinalysis with reflex microscopic and culture (04/30/2024 10:34 PM EST) Specific [place] Urine 1.011 1.003 - 1.030 LAB URINALYSIS - AUTOMATED METHOD 04/30/2024 10:46 PM EST [facility] pH, Urine 7.0 5.0 - 8.0 pH LAB URINALYSIS - AUTOMATED METHOD 04/30/2024 10:46 PM EST [facility] Leukocytes, Urine Negative Negative LAB URINALYSIS - AUTOMATED METHOD 04/30/2024 10:46 PM [facility] Nitrite, Urine Negative Negative LAB URINALYSIS - AUTOMATED METHOD 04/30/2024 10:46 PM [facility] Protein, Urine Negative <=Trace mg/dL LAB URINALYSIS - AUTOMATED METHOD 04/30/2024 10:46 PM [facility] Glucose, Urine Negative Negative mg/dL LAB URINALYSIS - AUTOMATED METHOD 04/30/2024 10:46 PM [facility] Ketones, Urine Negative Negative mg/dL LAB URINALYSIS - AUTOMATED METHOD 04/30/2024 10:46 PM [facility] Urobilinogen, Urine 0.2 0.2 - 1.0 mg/dL LAB URINALYSIS - AUTOMATED METHOD 04/30/2024 10:46 PM [facility] Bilirubin, Urine Negative Negative LAB URINALYSIS - AUTOMATED METHOD 04/30/2024 10:46 PM [facility] Blood, Urine Negative Negative LAB URINALYSIS - AUTOMATED METHOD 04/30/2024 10:46 PM [facility] Urine Urine specimen obtained by clean catch procedure / Unknown Non-blood Collection / Unknown 04/30/2024 10:34 PM EST 04/30/2024 10:40 PM EST us Bernda DELATORRE LAB URINE ORDERABLES Final Result [facility] [address] [place] [address], * Mccoy urine culture tube (04/30/2024 10:34 PM EST) Extra Tube Hold for add-ons. 05/01/2024 12:01 AM EST [facility] Comment:Auto resulted. Urine Urine specimen obtained by clean catch procedure / Unknown Non-blood Collection / Unknown 04/30/2024 10:34 PM EST 04/30/2024 10:40 PM EST Brenda DELATORRE LAB URINE ORDERABLES Final Result Performing Organization Address [facility] Co de Phone Number [facility] [address] [place] [address], [place] [phone] * Troponin I high sensitivity (04/30/2024 9:42 PM EST) Only the most recent of6 resultswithin the time period is included. High Sensitivity Troponin I 4 <=54 ng/L LAB CHEMISTRY METHOD 04/30/2024 10:35 PM EST [facility] Blood Venous blood specimen / Unknown Venipuncture / Unknown 04/30/2024 9:42 PM EST 04/30/2024 10:12 PM EST Narrative [facility] - 04/30/2024 10:35 PM EST High levels of biotin in samples may falsely decrease hsTroponin values. ??Use caution when interpreting hsTroponin results in patients taking biotin who exhibit renal impairment (eGFR <60) or in patients taking more than 20 mg/day of biotin. Edgardo Cervantes DO LAB BLOOD ORDERABLES Final Res ult Performing Organization Address [facility] de Phone Number [facility] [address] [place] [address], * XR Chest 2 Views (04/30/2024 8:28 PM EST) Only the most recent of2 resultswithin the time period is included. Anatomical Region Laterality Modality Body Radiographic Vicenta ging 05/01/2024 8:38 AM EST Impressions 05/01/2024 8:41 AM EST No acute pulmonary disease. No change since 03/16/2024. Code 28479 -------- FINAL REPORT -------- Dictated By: Paras Weeks Dictated Date: 05/01/2024 08:38 ET Assigned Physician: Paras Weeks Reviewed and Electronically Signed By: Paras Weeks Signed Date: 05/01/2024 08:41 ET Workstation ID: [id number] Transcribed By: Self Edit Transcribed Date: 05/01/2024 [...] pulmonary disease. No change since 03/16/2024. Code 69096 -------- FINAL REPORT -------- Dictated By: Paras Weeks Dictated Date: 05/01/2024 08:38 ET Assigned Physician: Paras Weeks Reviewed and Electronically Signed By: Paras Weeks Signed Date: 05/01/2024 08:41 ET Workstation ID: [id number] Transcribed By: Self Edit Transcribed Date: 05/01/2024 [...] GEMUSE QTc 456 ms GEMUSE P Wave Cantrall 32 degrees GEMUSE R Cantrall 2 degrees GEMUSE T Cantrall 24 degrees GEMUSE ECG Interpretation Normal sinus rhythm Normal ECG When compared with ECG of 18-MAR-2024 06:00, T wave amplitude has decreased in Lateral leads Confirmed by Nahid SMITH JOHN ([id number]) on 05/01/2024 7:50:24 AM GEMUSE 04/30/2024 8:17 PM EST 05/01/2024 7:50 AM EST Edgardo Cervantes DO ECG ORDERABLES Final Result GEMUSE * (ABNORMAL) CBC auto differential (04/30/2024 8:00 PM EST) Only the most recent of4 resultswithin the time period is included. WBC 7.6 4.8 - 10.8 K/mcL LAB HEMETOLOGY METHOD 04/30/2024 8:37 PM [facility] RBC 3.50(L) 3.80 - 4.80 M/mcL LAB HEMETOLOGY METHOD 04/30/2024 8:37 PM [facility] Hemoglobin 9.7(L) 11.5 - 16.0 g/dL LAB HEMETOLOGY METHOD 04/30/2024 8:37 PM [facility] Hematocrit 28.7(L) 35.0 - 47.0 % LAB HEMETOLOGY METHOD 04/30/2024 8:37 PM [facility] MCV 82.5 79.0 - 98.0 FL LAB HEMETOLOGY METHOD 04/30/2024 8:37 PM [facility] MCH 27.9 27.0 - 32.0 pcg LAB HEMETOLOGY METHOD 04/30/2024 8:37 PM [facility] MCHC 33.8 32.0 - 37.0 g/dL LAB HEMETOLOGY METHOD 04/30/2024 8:37 PM [facility] RDW 16.4(H) 11.0 - 15.0 % LAB HEMETOLOGY METHOD 04/30/2024 8:37 PM [facility] Platelets 304 130 - 400 K/mcL LAB HEMETOLOGY METHOD 04/30/2024 8:37 PM [facility] MPV 9.1 7.0 - 11.0 FL LAB HEMETOLOGY METHOD 04/30/2024 8:37 PM [facility] NRBC 0.0 <1.0 % LAB HEMETOLOGY METHOD 04/30/2024 8:37 PM [facility] NRBC Absolute 0.00 <0.10 K/mcL LAB HEMETOLOGY METHOD 04/30/2024 8:37 PM [facility] Neutrophils Relative 49.9 % LAB HEMETOLOGY METHOD 04/30/2024 8:37 PM [facility] Lymphocytes Relative 39.1 % LAB HEMETOLOGY METHOD 04/30/2024 8:37 PM [facility] Monocytes Relative 9.9 % LAB HEMETOLOGY METHOD 04/30/2024 8:37 PM [facility] Eosinophils Relative 0.3 % LAB HEMETOLOGY METHOD 04/30/2024 8:37 PM [facility] Basophils Relative 0.5 % LAB HEMETOLOGY METHOD 04/30/2024 8:37 PM [facility] Immature Granulocytes Relative 0.3 % LAB HEMETOLOGY METHOD 04/30/2024 8:37 PM [facility] Neutrophils Absolute 3.81 1.50 - 7.00 K/mcL LAB HEMETOLOGY METHOD 04/30/2024 8:37 PM [facility] Lymphocytes Absolute 2.99 1.00 - 5.00 K/mcL LAB HEMETOLOGY METHOD 04/30/2024 8:37 PM EST [facility] Monocytes Absolute 0.76 0.20 - 1.00 K/[facility] LAB HEMETOLOGY METHOD 04/30/2024 8:37 PM [facility] Eosinophils Absolute 0.02 0.00 - 0.50 K/[facility] LAB HEMETOLOGY METHOD 04/30/2024 8:37 PM EST [facility] Basophils Absolute 0.04 0.00 - 0.20 K/[facility] LAB HEMETOLOGY METHOD 04/30/2024 8:37 PM EST [facility] Immature Granulocytes Absolute 0.02 0.00 - 0.03 K/[facility] LAB HEMETOLOGY METHOD 04/30/2024 8:37 PM [facility] Blood Venous blood specimen / Unknown Venipuncture / Unknown 04/30/2024 8:00 PM EST 04/30/2024 8:31 PM EST Edgardo Cervantes DO LAB BLOOD ORDERABLES Final Res ult [facility] [address] [place] [address], [place] [phone] * B-type natriuretic peptide (04/30/2024 8:00 PM EST) Only the most recent of2 resultswithin the time period is included. BNP 30 <=100 pcg/mL LAB CHEMISTRY METHOD 04/30/2024 9:05 PM EST [facility] Blood Venous blood specimen / Unknown Venipuncture / Unknown 04/30/2024 8:00 PM EST 04/30/2024 8:30 PM EST Edgardo Cervantes DO LAB BLOOD ORDERABLES Final Res ult [facility] [address] [place] [address], [place] [phone] * Magnesium (04/30/2024 8:00 PM EST) Only the most recent of3 resultswithin the time period is included. Magnesium 2.0 1.9 - 2.6 mg/dL LAB CHEMISTRY METHOD 04/30/2024 9:07 PM EST [facility] Blood Venous blood specimen / Unknown Venipuncture / Unknown 04/30/2024 8:00 PM EST 04/30/2024 8:30 PM EST Edgardo Cervantes DO LAB BLOOD ORDERABLES Final Res ult Performing Organization Address City/[facility]/ZIP Co de Phone Number [facility] [address] [place] [address], [place] [phone] * Lipase (04/30/2024 8:00 PM EST) Only the most recent of4 resultswithin the time period is included. Lipase 34 13 - 75 unit/L LAB CHEMISTRY METHOD 04/30/2024 9:07 PM EST [facility] Blood Venous blood specimen / Unknown Venipuncture / Unknown 04/30/2024 8:00 PM EST 04/30/2024 8:30 PM EST us Edgardo Cervantes DO LAB BLOOD ORDERABLES Final Res ult [facility] [address] [place] [address], [place] [phone] * Cortisol (04/30/2024 8:00 PM EST) Cortisol 4.3 mcg/dL LAB CHEMISTRY METHOD 04/30/2024 9:44 PM EST [facility] Blood Venous blood specimen / Unknown Venipuncture / Unknown 04/30/2024 8:00 PM EST 04/30/2024 8:30 PM EST Narrative [facility] - 04/30/2024 9:44 PM EST CORTISOL REFERENCE RANGE ?? 8 AM SPEC: ??5.0-23.0 mcg/dL ?? 4 PM SPEC: ??3.0-16.0 mcg/dL ?? 8 PM SPEC: ??<5.0 mcg/dL us Brenda DELATORRE LAB BLOOD ORDERABLES Final Result [facility] [address] [place] [address], [place] [phone] * Comprehensive metabolic panel (04/30/2024 8:00 PM EST) Only the most recent of3 resultswithin the time period is included. Sodium 140 133 - 145 mmol/L LAB CHEMISTRY METHOD 04/30/2024 9:16 PM [facility] Potassium 3.8 3.5 - 5.5 mmol/L LAB CHEMISTRY METHOD 04/30/2024 9:16 PM [facility] Chloride 109 96 - 110 mmol/L LAB CHEMISTRY METHOD 04/30/2024 9:16 PM [facility] CO2 24 21 - 32 mmol/L LAB CHEMISTRY METHOD 04/30/2024 9:16 PM [facility] Anion Gap 7 3 - 11 LAB CHEMISTRY METHOD 04/30/2024 9:16 PM [facility] Glucose 84 70 - 100 mg/dL LAB CHEMISTRY METHOD 04/30/2024 9:16 PM [facility] BUN 9 5 - 25 mg/dL LAB CHEMISTRY METHOD 04/30/2024 9:16 PM [facility] Creatinine 0.67 0.50 - 1.10 mg/dL LAB CHEMISTRY METHOD 04/30/2024 9:16 PM [facility] eGFR 109 >=60 mL/min/1. 73m2 LAB CHEMISTRY METHOD 04/30/2024 9:16 PM [facility] Comment:Calculation based on the??Chronic Kidney Disease Epidemiology Collaboration (CKD-EPI) equation refit??without adjustment for race. BUN/Creatinine Ratio 13.4 LAB CHEMISTRY METHOD 04/30/2024 9:16 PM [facility] Calcium 8.9 8.5 - 10.5 mg/dL LAB CHEMISTRY METHOD 04/30/2024 9:16 PM [facility] AST (SGOT) 13 10 - 42 unit/L LAB CHEMISTRY METHOD 04/30/2024 9:16 PM [facility] ALT (SGPT) 20 10 - 60 unit/L LAB CHEMISTRY METHOD 04/30/2024 9:16 PM [facility] Alkaline Phosphatase 77 42 - 121 unit/L LAB CHEMISTRY METHOD 04/30/2024 9:16 PM [facility] Total Protein 7.0 6.0 - 8.0 g/dL LAB CHEMISTRY METHOD 04/30/2024 9:16 PM [facility] Albumin 3.5 3.2 - 5.0 g/dL LAB CHEMISTRY METHOD 04/30/2024 9:16 PM [facility] Total Bilirubin 0.3 0.0 - 1.4 mg/dL LAB CHEMISTRY METHOD 04/30/2024 9:16 PM [facility] Blood Venous blood specimen / Unknown Venipuncture / Unknown 04/30/2024 8:00 PM EST 04/30/2024 8:30 PM EST us Edgardo Cervantes DO LAB BLOOD ORDERABLES Final Res ult [facility] [address] [place] [address], * EGD Anesthesia - MAC; [facility] ENDOSCOPY (03/19/2024 12:19 PM EST) Anatomical Region Laterality Modality Endoscopy 03/19/2024 12:0 4 PM EST Impressions 03/19/2024 12:21 PM EST - Normal esophagus. ? - Normal examined jejunum. ? - Gastric bypass. ? - Erythematous mucosa in the stomach. Biopsied. Clip ? was placed. Clip electromechanical equipment tester: Press. Recommendation: ?- Discharge patient to home. ? - Resume previous diet. ? - Continue present medications. ? - Await pathology results. ? - Bleeding from gastric biopsy site treated with an ? endoclip as the bleeding would not stop spontaneously. ? - Coagulation profile ? - Marijuana cessation recommended. ? - F/U with primary GI doctor at [facility]. Narrative 03/19/2024 12:21 PM EST [facility] GI Patient Name: Eboni Tatum Procedure Date: 03/19/2024 12:04 PM Date of : 1975 Age: 48 Gender: Female Note Status: Finalized Attending MD: Jesse Saenz DO, [id number] Procedure Date No Time: 03/19/2024 Procedure: ? [...] physician, the nurse, the ? anesthesiologist, the washing and screening plant supervisor and the industrial ecology technician ? in the pre-procedure area in [...] hemostatic clip was successfully placed. Clip ? electromechanical equipment tester: Press. There was no bleeding ? at the end of the procedure. Estimated blood loss was ? minimal. Procedure Code(s): ? --- Professional --- ? 82358, 59, Esophagogastroduodenoscopy, flexible, ? transoral; with control of bleeding, any method ? 32701, Esophagogastroduodenoscopy, flexible, ? transoral; with biopsy, single or multiple Diagnosis Code(s): ? --- Professional --- ? Z98.84, Bariatric surgery status ? K31.89, Other diseases of stomach and duodenum ? R10.13, Epigastric pain ? R11.2, Nausea with vomiting, unspecified CPT copyright 2020 [employer]. All rights reserved. The codes documented in this report are preliminary and upon flower maker review may be revised to meet current compliance requirements. JESSE Saenz DO 03/19/2024 12:21:51 PM This report has been signed electronically.Jesse Saenz DO Number of Addenda: 0 Note Initiated On: 03/19/2024 12:04 PM Scope In: Scope Out: ? Endoscopy Department at [facility] - [address] [place] [address], ? [place] [id number] Procedure Note Jesse Saenz DO - 03/19/2024 [facility] GI Patient Name: Eboni Tatum Procedure Date: 03/19/2024 12:04 PM Date of : 1975 Age: 48 Gender: Female Note Status: Finalized Attending MD: Jesse Saenz DO, [id number] Procedure Date No Time: 03/19/2024 Procedure: Upper [...] the physician, the nurse, the anesthesiologist, the washing and screening plant supervisor and thetechnician in the pre-procedure area in [...] hemostasis,one hemostatic clip was successfully placed. Clip electromechanical equipment tester: Press. There was nobleeding at the end of the procedure. Estimated blood losswas minimal. Procedure Code(s): --- Professional --- 36316, 59, Esophagogastroduodenoscopy, flexible, transoral; with control of bleeding, any method 15321, Esophagogastroduodenoscopy, flexible, transoral; with biopsy, single or multiple Diagnosis Code(s): --- Professional --- Z98.84, Bariatric surgery status K31.89, Other diseases of stomach and duodenum R10.13, Epigastric pain R11.2, Nausea with vomiting, unspecified CPT copyright 2020 [employer]. All rights reserved. The codes documented in this report are preliminary and upon flower maker reviewmay be revised to meet current compliance requirements. JESSE Saenz DO 03/19/2024 12:21:51 PM This report has been signed electronically.Jesse Saenz DO Number of Addenda: 0 Note Initiated On: 03/19/2024 12:04 PM Scope In: Scope Out: Endoscopy Department at [facility] - [address] [place] [id number] IMPRESSION: - Normal esophagus. - Normal examined jejunum. - Gastric bypass. - Erythematous mucosa in the stomach. Biopsied.Clip was placed. Clip electromechanical equipment tester: [employer]. Recommendation: - Discharge patient to home. - Resume previous diet. - Continue present medications. - Await pathology results. - Bleeding from gastric biopsy site treated with an endoclip as the bleeding would not stopspontaneously. - Coagulation profile - Marijuana cessation recommended. - F/U with primary GI doctor at [facility]. us Jesse Saenz DO GI~PROCEDURE ORDERABLES Final Re sult * Tissue exam (03/19/2024 12:13 PM EST) Final Diagnosis Stomach, biopsy: Gastric antral and oxyntic-type mucosa with minimal chronic inflammation. No active gastritis and no intestinal metaplasia identified. No Helicobacter pylori identified on hematoxylin and eosin stained sections. 03/20/2024 11:19 AM [facility] Gross Description A. Stomach, biopsies, gastric: Labeled stomach biopsies . Received in formalin are three irregular morley mucosal tissue fragments, ranging from 0.3 cm to 0.6 cm in greatest dimension, which are wrapped in paper and submitted in toto in one cassette, three pieces, multiple levels on one slide. ABDOUL 03/20/2024 11:19 AM [facility] Disclaimer Unless otherwise specified, all tissue is 10% NB formalin fixed and paraffin embedded. 03/20/2024 11:19 AM [facility] Tissue Stomach structure / Unknown 03/19/2024 12:13 PM EST 03/19/2024 12:58 PM EST us Jesse Sanez DO LAB PATHOLOGY ORDERABLES Final R esult [facility] [address] [place] [address], * Prothrombin time with INR (03/18/2024 6:25 AM EST) Protime 10.6 10.6 - 13.9 sec LAB COAGULATION METHOD 03/18/2024 8:03 AM [facility] INR 0.9 LAB COAGULATION METHOD 03/18/2024 8:03 AM [facility] Blood Venous blood specimen / Unknown Venipuncture / Unknown 03/18/2024 6:25 AM EST 03/18/2024 7:16 AM EST Derrick Severino MD LAB BLOOD ORDERABLES Final Resu lt Performing Organization Address City/[facility]/ZIP Co de Phone Number [facility] [address] [place] [address], [place] [phone] * C-reactive protein (03/18/2024 6:24 AM EST) C-Reactive Protein <0.29 <=0.50 mg/dL LAB CHEMISTRY METHOD 03/18/2024 8:14 AM EST [facility] Blood Venous blood specimen / Unknown Venipuncture / Unknown 03/18/2024 6:24 AM EST 03/18/2024 7:15 AM EST Derrick Severino MD LAB BLOOD ORDERABLES Final Resu lt Performing Organization Address [facility] Co de Phone Number [facility] [address] [place] [address], [place] [phone] * (ABNORMAL) Phosphorus (03/18/2024 6:24 AM EST) Phosphorus 2.3(L) 2.5 - 4.5 mg/dL LAB CHEMISTRY METHOD 03/18/2024 8:14 AM EST [facility] Blood Venous blood specimen / Unknown Venipuncture / Unknown 03/18/2024 6:24 AM EST 03/18/2024 7:15 AM EST Derrick Severino MD LAB BLOOD ORDERABLES Final Resu lt Performing Organization Address City/[facility]/ZIP Co de Phone Number [facility] [address] [place] [address], [place] [phone] * XR Abdomen 1 View (03/17/2024 11:44 [...] Signed Date: 03/17/2024 11:56 ET Workstation ID: [id number] Transcribed By: Self Edit Transcribed Date: 03/17/2024 [...] Signed Date: 03/17/2024 11:56 ET Workstation ID: [id number] Transcribed By: Self Edit Transcribed Date: 03/17/2024 11:55 ET Derrick Severino MD IMG XR PROCEDURES Final Result * (ABNORMAL) Basic metabolic panel (03/17/2024 5:34 AM EST) Only the most recent of2 resultswithin the time period is included. Sodium 133 133 - 145 mmol/L LAB CHEMISTRY METHOD 03/17/2024 6:27 AM EST [facility] Potassium 4.2 3.5 - 5.5 mmol/L LAB CHEMISTRY METHOD 03/17/2024 6:27 AM EST [facility] Comment:Hemolysis present Chloride 101 96 - 110 mmol/L LAB CHEMISTRY METHOD 03/17/2024 6:27 AM [facility] CO2 28 21 - 32 mmol/L LAB CHEMISTRY METHOD 03/17/2024 6:27 AM [facility] Anion Gap 4 3 - 11 LAB CHEMISTRY METHOD 03/17/2024 6:27 AM [facility] Glucose 129(H) 70 - 100 mg/dL LAB CHEMISTRY METHOD 03/17/2024 6:27 AM [facility] BUN 29(H) 5 - 25 mg/dL LAB CHEMISTRY METHOD 03/17/2024 6:27 AM [facility] Creatinine 1.80(H) 0.50 - 1.10 mg/dL LAB CHEMISTRY METHOD 03/17/2024 6:27 AM [facility] eGFR 35(L) >=60 mL/min/1. 73m2 LAB CHEMISTRY METHOD 03/17/2024 6:27 AM [facility] Comment:Calculation based on the??Chronic Kidney Disease Epidemiology Collaboration (CKD-EPI) equation refit??without adjustment for race. BUN/Creatinine Ratio 16.1 LAB CHEMISTRY METHOD 03/17/2024 6:27 AM [facility] Calcium 8.7 8.5 - 10.5 mg/dL LAB CHEMISTRY METHOD 03/17/2024 6:27 AM [facility] Blood Venous blood specimen / Unknown Venipuncture / Unknown 03/17/2024 5:34 AM EST 03/17/2024 5:46 AM EST us Gabe Coronado MD LAB BLOOD ORDERABLES Final Result [facility] [address] [place] [address], * Urinalysis with reflex microscopic (03/17/2024 4:06 AM EST) Specific [place] Urine 1.009 1.003 - 1.030 LAB URINALYSIS - AUTOMATED METHOD 03/17/2024 4:36 AM [facility] pH, Urine 5.5 5.0 - 8.0 pH LAB URINALYSIS - AUTOMATED METHOD 03/17/2024 4:36 AM [facility] Leukocytes, Urine Negative Negative LAB URINALYSIS - AUTOMATED METHOD 03/17/2024 4:36 AM [facility] Nitrite, Urine Negative Negative LAB URINALYSIS - AUTOMATED METHOD 03/17/2024 4:36 AM [facility] Protein, Urine Trace <=Trace mg/dL LAB URINALYSIS - AUTOMATED METHOD 03/17/2024 4:36 AM [facility] Glucose, Urine Negative Negative mg/dL LAB URINALYSIS - AUTOMATED METHOD 03/17/2024 4:36 AM [facility] [facility] Ketones, Urine Negative Negative mg/dL LAB URINALYSIS - AUTOMATED METHOD 03/17/2024 4:36 AM [facility] Urobilinogen, Urine 0.2 0.2 - 1.0 mg/dL LAB URINALYSIS - AUTOMATED METHOD 03/17/2024 4:36 AM [facility] Bilirubin, Urine Negative Negative LAB URINALYSIS - AUTOMATED METHOD 03/17/2024 4:36 AM [facility] Blood, Urine Negative Negative LAB URINALYSIS - AUTOMATED METHOD 03/17/2024 4:36 AM [facility] Urine Urine specimen obtained by clean catch procedure / Unknown Non-blood Collection / Unknown 03/17/2024 4:06 AM EST 03/17/2024 4:25 AM EST us Gabe Coronado MD LAB URINE ORDERABLES Final Result [facility] [address] [place] [address], * Sodium, urine, random (03/17/2024 4:06 AM EST) Sodium, Ur 19 mmol/L LAB CHEMISTRY METHOD 03/17/2024 4:54 AM EST [facility] Urine Urine specimen obtained by clean catch procedure / Unknown Non-blood Collection / Unknown 03/17/2024 4:06 AM EST 03/17/2024 4:25 AM EST us Gabe Coronado MD LAB URINE ORDERABLES Final Result Performing Organization Address City/[facility]/ZIP Co de Phone Number [facility] [address] [place] [address], [place] [phone] * Protein, urine, random (03/17/2024 4:06 AM EST) Protein, Urine 20 mg/dL LAB CHEMISTRY METHOD 03/17/2024 4:54 AM EST [facility] Urine Urine specimen obtained by clean catch procedure / Unknown Non-blood Collection / Unknown 03/17/2024 4:06 AM EST 03/17/2024 4:25 AM EST us Gabe Coronado MD LAB URINE ORDERABLES Final Result Performing Organization Address [facility]/ZIP Co de Phone Number [facility] [address] [place] [address], [place] [phone] * HCG qualitative, urine (03/17/2024 4:06 AM EST) Preg Test, Ur Negative Negative 03/17/2024 4:56 AM EST [facility] Urine Urine specimen obtained by clean catch procedure / Unknown Non-blood Collection / Unknown 03/17/2024 4:06 AM EST 03/17/2024 4:25 AM EST us Gabe Coronado MD LAB URINE ORDERABLES Final Result Performing Organization Address [facility]/ZIP Co de Phone Number [facility] [address] [place] [address], [place] [phone] * Creatinine, urine, random (03/17/2024 4:06 AM EST) Creatinine, Urine 77.0 mg/dL LAB CHEMISTRY METHOD 03/17/2024 4:54 AM EST [facility] Urine Urine specimen obtained by clean catch procedure / Unknown Non-blood Collection / Unknown 03/17/2024 4:06 AM EST 03/17/2024 4:25 AM EST us Gabe Coronado MD LAB URINE ORDERABLES Final Result [facility] [address] [place] [address], [place] [phone] * US Retroperitoneal Complete (03/17/2024 2:05 AM [...] Laterality Modality Lower Extremities, Knee Right [facility] 03/16/2024 6:46 PM EST Impressions 03/16/2024 6:47 PM EST FINDINGS/IMPRESSION: No acute fracture or dislocation. ??Mild medial compartment predominant degenerative change. ??No joint effusion or focal soft tissue swelling. -------- FINAL REPORT -------- Dictated By: URBANO MATTHEWS Dictated Date: 03/16/2024 18:46 ET Assigned Physician: URBANO MATTHEWS Reviewed and Electronically Signed By: URBANO MATTHEWS Signed Date: 03/16/2024 18:47 ET Workstation ID: [id number] Transcribed By: Self Edit Transcribed Date: 03/16/2024 [...] Signed Date: 03/16/2024 18:47 ET Workstation ID: [id number] Transcribed By: Self Edit Transcribed Date: 03/16/2024 [...] currently active code status orders. Care Teams Wire Mesh Knitter Relationship Specialty Start Date End Date Lisseth Nassar NP [address] [place] [address] [place] [phone] PCP - General 07/07/21
== END 2024-05-16 16:05 | disposition home or self-care (01) ==
PROVIDERS: PCP Nurse Practitioner Family; Visit Provider Student in an Organized Health Care Education/Training Program
DX: R79.89 Other specified abnormal findings of blood chemistry (principal); E04.2 Nontoxic multinodular goiter
CPT/HCPCS: 99214

== ENCOUNTER → 2024-05-16 15:24 | Outpatient (BNVA) | payer MEDICARE, MEDICAID, SELFPAY | PROVIDERS: PCP Nurse Practitioner Family; Visit Provider Student in an Organized Health Care Education/Training Program | DX: E04.2 Nontoxic multinodular goiter (principal); R79.89 Other specified abnormal findings of blood chemistry | CPT/HCPCS: 99212 ==

== ENCOUNTER 2024-05-25 13:31 | Outpatient (AMB) | payer MEDICARE, MEDICAID, SELFPAY ==
--- NOTE | 2024-05-25 13:31 | MHC.OFFVIS ---
Intake Visit Reasons: 2m UTI F/u Intake Note: Patient is present for 2m uti f/u Urology Medication:hydroxyzine,tamsulosin,vitamin b1,fesoterodine Antibiotic Allergy:sulfa Blood Thinner:none Operations Systems Specialist Required: No Allergies sertraline [From ZOLOFT] Allergy (Intermediate, Verified 05/25/24 13:33) prolonged QT interval Sulfa (Sulfonamide Antibiotics) [SULFA (SULFONAMIDE ANTIBIOTICS)] Allergy (Intermediate, Verified 05/25/24 13:33) RASH haloperidol [From Haldol] Allergy (Mild, Verified 05/25/24 13:33) unknown morphine [MORPHINE] Allergy (Mild, Verified 05/25/24 13:33) Rash NSAIDS (Non-Steroidal Anti-Inflamma [NSAIDS (NON-STEROIDAL ANTI-INFLAMMA] Adverse Reaction (Intermediate, Verified 05/25/24 13:33) STOMACH UPSET fentanyl patch Allergy (Severe, Uncoded 05/25/24 13:33) Unresponsive Medication List - Last Reconciled 05/25/24 by Jeff Rodriges MD albuterol sulfate 1 vial inhalation Q6H albuterol sulfate 90 mcg/actuation (Ventolin HFA) 1 inh inhalation Q4H PRN carvedilol 6.25 mg PO DIRECTED clonazepam 1 mg PO TID estradiol 0.01%(0.1mg/gram) 1 g vaginal MOWEFR fesoterodine ER (Toviaz) 4 mg PO DAILY 30 days fluocinolone 0.01% 1 appl topical BID PRN fluoride (sodium) 1.1% (Sodium Fluoride 5000 Plus) 1 appl PO DAILY food supplemt, lactose-reduced (Boost Plus) 1 ea PO TID food supplemt, lactose-reduced (Boost High Protein) 1 ea PO BID-TID hydrocortisone 10 mg at 8 AM and 5 mg at 2 pm hydroxyzine pamoate (Vistaril) 25 mg PO BEDTIME montelukast 1 tab PO DAILY nortriptyline 75 mg PO DAILY oxycodone 15 mg PO Q8H PRN oxycodone myristate CR-ER (Xtampza ER) 54 mg PO Q12H pantoprazole 40 mg PO BID@0630,1630 quetiapine 50 mg PO DAILY quetiapine 100 mg PO BEDTIME scopolamine base 1 patch topical Q3D sodium,potassium,mag sulfates 17.5-3.13-1.6 gram (Suprep Bowel Prep Kit) DILUTE; drink 1/2 at 6-8 pm and half at 11 PM- 1AM tamsulosin 0.4 mg PO BEDTIME thiamine HCl (vitamin B1) 100 mg PO DAILY zolpidem 5 mg PO BEDTIME PRN HPI Comments Details: 05/25/24--Eboni is a 48-year-old female presenting with a chronic Interstitial Cystitis. The condition has been characterized by persistent bladder pain and urinary urgency, with current treatment including Vistaril and Toviaz. Re-assessment followed a cystoscopy hydrodistension performed on 02/14/24, which initially alleviated her symptoms. The patient has been instructed to increase water intake to help manage bladder symptoms more effectively and to be vigilant about potential UTIs. Additionally, the patient is receiving treatment for possible adrenal insufficiency and iron deficiency anemia, participating in a weekly regimen of iron infusions and taking Hydrocortisone for adrenal management. Urinary Symptoms Review - Decreased urinary urgency and nocturnal frequency - Resolution of previous burning sensations Results - Diagnostics: Previous cystoscopy hydrodistension performed on 02/14/24 03/05/24---Lorin is followed for interstitial cystitis and urinary symptoms of urgency and urge incontinence. She states after the cystoscopy hydrodistention she has relief of the burning sensation and pain associated with voiding. She states that she has been noticing hesitancy with urination and sometimes has to wait up to 20 minutes before she can empty her bladder. I have discussed decreasing the Toviaz from 8 mg to 4 mg. She is tolerating hydroxyzine at bedtime. Will consider InterStim therapy in the future if urge symptoms persist. Follow-up in 2 months. Eboni states that she feels overwhelmed her medical health due to chronic pain and states she needs surgery knee. 01/23/24--IC patient Lorin has been followed by Dr. Rodriguez in the past and has had cystoscopy hydrodistention by Dr. Rodriguez and also by me. Her last cystoscopy hydrodistention was performed by me in August 2023. She is currently on Toviaz 8 mg daily for bladder spasms. She has been on amitriptyline and gabapentin in the past per review of her urology records. I have discussed trial of hydroxyzine 25 mg at bedtime. The patient states that that procedure she had a cardiac event and had workup to rule out an [place]. Lorin is a 46 year old with multiple medical conditions. 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 Past medical history of chronic gastritis, anxiety, depression, history of lap band removal, hypertension, FLOWER, bipolar disorder. She is on chronic opioid management. She is followed by nephrology. Renal US 04/19/23- kidneys WNL Plan repeat cystoscopy hydrodistention. [facility] Medical History Multinodular goiter HTN (hypertension) Decreased oral intake Takotsubo cardiomyopathy Burn injury Arthritis Low back pain Elevated cholesterol SOB (shortness of breath) Asthma Numbness Mood disorder IBS (irritable bowel syndrome) OAB (overactive bladder) Sleep apnea Hypersomnia Anxiety Surgical History Hx of gastric bypass Hx of total knee replacement Hx of knee surgery Hx of hernia repair History of cystoscopy Hx of laparoscopic gastric banding Hx of hysterectomy History of H/O gastric bypass Hx of endoscopy History of colonoscopy Family History Father Hx of colon cancer, stage IV Mother Family history of high blood pressure Social History Household Members: Children Household Members Other:: My son Housing: Apartment Are you a primary school childcare attendant to a significant other at home: No Do you presently have visiting nurse or other home services: Yes (youngest dtr is mold closer) Alcohol intake: never Comment: previously medicated Patient Tobacco Use Status: Never used Tobacco e-Cigarette/Vaping Use: Never Used Second Hand Smoke Exposure: No Substance Use Type: Marijuana service: No Review of Systems Const All systems reviewed & are unremarkable except as noted in HPI and below Reports no additional complaints Eyes Reports no additional complaints ENT Reports no additional complaints Card Reports no additional complaints Resp Reports no additional complaints GI Reports no additional complaints Reports as per HPI Musc Reports no additional complaints Skin/Breast Reports system reviewed and no additional complaints, except as documented Neuro Reports no additional complaints Psych Reports no additional complaints Endo Reports no additional complaints Doug/Lymph Reports no additional complaints Aller/Immun Reports no additional complaints Telehealth Telehealth Telehealth Platform: Telephone Location of provider rendering services: practice address Location of patient: address on file Patient Identification confirmed using: Name, : Yes Telehealth method: voice only Patient verbally consented to treatment: Yes Patient verbally consented to billing insurance company: Yes Patient informed of any privacy concerns related to visit: Yes Minutes spent on Phone/Video with Pt.: 14 Assessment & Plan Assessment & Plan (1) Interstitial cystitis: Code(s): N30.10 - Interstitial cystitis (chronic) without hematuria Category: Medical (2) Nocturia more than twice per night: Code(s): R35.1 - Nocturia Category: Medical (3) Chronic UTI (urinary tract infection): Code(s): N39.0 - Urinary tract infection, site not specified Category: Medical (4) Urge incontinence of urine: Code(s): N39.41 - Urge incontinence Category: Medical Plan Plan I will continue the patient's Hydroxyzine and work on insurance for Toviaz, exploring anticholinergic alternatives if necessary. Maintaining her chronic interstitial cystitis management, hydration, symptom monitoring, FU in 6months Medications: Refilled hydroxyzine pamoate (Vistaril) 25 mg PO BEDTIME 90 caps 3RF Patient Instructions: Patient Instructions - Continue taking Hydroxyzine 25 mg at bedtime. - Follow the current regimen for Toviaz, utilizing 8 mg tablets as needed until insurance issues are resolved. - Increase water intake to manage bladder health and prevent UTIs. - Follow up in six months or as necessary for any concerns or symptoms. Scribe Plan - Not visible on output: Patient was informed and verbally consented to the use of an ambient scribe for clinic note documentation during this visit. Coding Level of Care Code Tele Est Pt Level 3 (44408) Diagnoses Interstitial cystitis N30.10 Nocturia more than twice per night R35.1 Chronic UTI (urinary tract infection) N39.0 Urge incontinence of urine N39.41
--- OUTSIDE RECORDS SUMMARY | 2024-05-25 15:07 | XMS_ITS | Encounter Summary ---
Author Organization [employer] Address [address] [place] [address] Care Team Providers Care Line Ordering Clinician Name Role Phone Lisseth Nassar [employer] Primary Care Provider [phone] Reason for Visit * Reason Comments Shortness of Breath NAUSEA WEAKNESS SOB TODAY STARTED EXPERIENCING CHEST PAIN. H/X RENAL INJURY ADRENAL INSUFF, CYSTITIS, ND, GASTRIC BYPASS Chest Pain Encounter Details Date Type Department Care Team (Late st Contact Info) Description 04/30/2024 7:35 PM EST - 04/30/2024 11:[address] [facility] Emergency [address] [place] [id number] Anemia, unspecified type (Primary Dx) Discharge Disposition: [...] and hematocrit is 28.7. Please call your physician's aide tomorrow for ongoing management of your anemia. Continue taking your medications as previously prescribed and stay very well hydrated with water. Follow up with your primary provider. Call tomorrow for appointment. Return to Emergency Department if symptoms worsen, do not improve, or any other concern. Get well soon! Thank you for coming to the [facility] Emergency Department today. Our entire team [...] to make arrangements to follow up. [facility] [place] [facility] Syl[facility] Kami Sylwia Lauro * Attachments The following attachments cannot be sent through Care Everywhere. * Anemia ([place] Islander) documented in this encounter Medications at Time [...] mid sternal CP earlier and states a ND hx, states she took one baby aspirin [...] PAIN. H/X RENAL INJURY ADRENAL INSUFF, CYSTITIS, ND, GASTRIC BYPASS. 324 ASA GIVEN Juan Alberto [...] PAIN. H/X RENAL INJURY ADRENAL INSUFF, CYSTITIS, ND, GASTRIC BYPASS Chest Pain This is a [...] vomiting. Patient was hospitalized last week at [facility] for her adrenal insufficiency. Patient denies having [...] Irritable bowel syndrome Low serum cortisol level ND (myocardial infarction) (CMS/HCC) Non-ischemic cardiomyopathy (CMS/HCC) Opioid type dependence, continuous (CMS/HCC) Past Surgical History: Procedure Laterality Date BREAST REDUCTION PROCEDURE: UT BREAST REDUCTION SECTION, LOW TRANSVERSE GASTRIC BYPASS [...] REFLEX MICROSCOPIC AND CULTURE - Normal Specific [place] Urine 1.011 pH, Urine 7.0 Leukocytes, Urine Negative Nitrite, Urine Negative Protein, Urine Negative Glucose, Urine Negative Ketones, Urine Negative Urobilinogen, Urine 0.2 Bilirubin, Urine Negative Blood, Urine Negative CBC AND DIFFERENTIAL Narrative: The following orders were created for panel order CBC and differential. Procedure Abnormality Status --------- ------ CBC auto differential[[id number]] Abnormal Final result Please view results for [...] Abnormality Status --------- ------ Urinalysis with reflex ...[[id number]] Normal Final result Mccoy urine culture tube[[id number]] In process Please view results for these [...] Tube Hold for add-ons. 05/01/2024 12:01 AM [facility] Comment:Auto resulted. Urine Urine specimen obtained by clean catch procedure / Unknown Non-blood Collection / Unknown 04/30/2024 10:34 PM EST 04/30/2024 10:40 PM EST Brenda DELATORRE LAB URINE ORDERABLES Final Result [facility] [address] [place] [address], * Urinalysis with reflex microscopic and culture (04/30/2024 10:34 PM EST) Specific [place] Urine 1.011 1.003 - 1.030 LAB URINALYSIS - AUTOMATED METHOD 04/30/2024 10:46 PM [facility] pH, Urine 7.0 5.0 - 8.0 pH LAB URINALYSIS - AUTOMATED METHOD 04/30/2024 10:46 PM [facility] Leukocytes, Urine Negative Negative LAB URINALYSIS - AUTOMATED METHOD 04/30/2024 10:46 PM [facility] Nitrite, Urine Negative Negative LAB URINALYSIS - AUTOMATED METHOD 04/30/2024 10:46 PM [facility] Protein, Urine Negative <=Trace mg/dL LAB URINALYSIS - AUTOMATED METHOD 04/30/2024 10:46 PM [facility] Glucose, Urine Negative Negative mg/dL LAB URINALYSIS - AUTOMATED METHOD 04/30/2024 10:46 PM [facility] Ketones, Urine Negative Negative mg/dL LAB URINALYSIS - AUTOMATED METHOD 04/30/2024 10:46 PM [facility] Urobilinogen, Urine 0.2 0.2 - 1.0 mg/dL LAB URINALYSIS - AUTOMATED METHOD 04/30/2024 10:46 PM [facility] Bilirubin, Urine Negative Negative [...] Final Result Performing Organization Address [facility]/ZIP Co de Phone Number [facility] [address] [place] [address], * Troponin I high sensitivity (04/30/2024 9:42 [...] Res ult Performing Organization Address [facility]/ZIP Co de Phone Number [facility] [address] [place] [address], * XR Chest 2 Views (04/30/2024 8:28 PM EST) Anatomical Region Laterality Modality Body Radiographic Vicenta ging 05/01/2024 8:38 AM EST Impressions 05/01/2024 8:41 AM EST No acute pulmonary disease. No change since 03/16/2024. Code 57678 -------- FINAL REPORT -------- Dictated By: Paras Weeks Dictated Date: 05/01/2024 08:38 ET Assigned Physician: Paras Weeks Reviewed and Electronically Signed By: Paras Weeks Signed Date: 05/01/2024 08:41 ET Workstation ID: [id number] Transcribed By: Self Edit Transcribed Date: 05/01/2024 [...] pulmonary disease. No change since 03/16/2024. Code 20912 -------- FINAL REPORT -------- Dictated By: Paras Weeks Dictated Date: 05/01/2024 08:38 ET Assigned Physician: Paras Weeks Reviewed and Electronically Signed By: Paras Weeks Signed Date: 05/01/2024 08:41 ET Workstation ID: [id number] Transcribed By: Self Edit Transcribed Date: 05/01/2024 08:38 ET us Edgardo Cervantes DO IMG XR PROCEDURES Final Result * ECG 12 lead (04/30/2024 8:17 PM EST) [facility] Ventricular Rate ECG 80 BPM GEMUSE Atrial Rate 80 BPM GEMUSE P-R Interval 198 ms GEMUSE QRS Duration 76 ms GEMUSE Q-T Interval 396 ms GEMUSE QTc 456 ms GEMUSE P Wave [place] 32 degrees GEMUSE R [place] 2 degrees GEMUSE T [place] 24 degrees GEMUSE ECG Interpretation Normal sinus rhythm Normal ECG When compared with ECG of 18-MAR-2024 06:00, T wave amplitude has decreased in Lateral leads Confirmed by Nahid SMITH JOHN ([id number]) on 05/01/2024 7:50:24 AM GEMUSE 04/30/2024 8:17 PM EST 05/01/2024 7:50 AM EST us Edgardo Cervantes DO ECG ORDERABLES Final Result Performing Organization Address [facility] de Phone Number GEMUSE * Cortisol (04/30/2024 8:00 PM EST) [facility] Cortisol 4.3 mcg/dL LAB CHEMISTRY METHOD 04/30/2024 [...] BLOOD ORDERABLES Final Result Performing Organization Address [facility]/ZIP Co de Phone Number [facility] [address] [place] [address], [place] [phone] * (ABNORMAL) CBC auto differential (04/30/2024 8:00 PM EST) WBC 7.6 4.8 - 10.8 K/mcL LAB HEMETOLOGY METHOD 04/30/2024 8:37 PM [facility] RBC 3.50(L) 3.80 - 4.80 M/[facility] LAB HEMETOLOGY METHOD 04/30/2024 8:37 PM [facility] Hemoglobin 9.7(L) 11.5 - 16.0 g/dL LAB HEMETOLOGY METHOD 04/30/2024 8:37 PM [facility] Hematocrit 28.7(L) 35.0 - 47.0 % LAB HEMETOLOGY METHOD 04/30/2024 8:37 PM [facility] MCV 82.5 79.0 - 98.0 FL LAB HEMETOLOGY METHOD 04/30/2024 8:37 PM [facility] MCH 27.9 27.0 - 32.0 pcg LAB HEMETOLOGY METHOD 04/30/2024 8:37 PM [facility] MCHC 33.8 32.0 - 37.0 g/dL LAB HEMETOLOGY METHOD 04/30/2024 8:37 PM [facility] RDW 16.4(H) 11.0 - 15.0 % LAB HEMETOLOGY METHOD 04/30/2024 8:37 PM [facility] Platelets 304 130 - 400 K/mcL LAB HEMETOLOGY METHOD 04/30/2024 8:37 PM [facility] MPV 9.1 7.0 - 11.0 FL LAB HEMETOLOGY METHOD 04/30/2024 8:37 PM [facility] NRBC 0.0 <1.0 % LAB HEMETOLOGY METHOD 04/30/2024 8:37 PM [facility] NRBC Absolute 0.00 <0.10 K/[facility] LAB HEMETOLOGY METHOD 04/30/2024 8:37 PM [facility] Neutrophils Relative 49.9 % LAB HEMETOLOGY METHOD 04/30/2024 8:37 PM [facility] Lymphocytes Relative 39.1 % LAB HEMETOLOGY METHOD 04/30/2024 8:37 PM [facility] Monocytes Relative 9.9 % LAB HEMETOLOGY METHOD 04/30/2024 8:37 PM [facility] Eosinophils Relative 0.3 % LAB HEMETOLOGY METHOD 04/30/2024 8:37 PM [facility] Basophils Relative 0.5 % LAB HEMETOLOGY METHOD 04/30/2024 8:37 PM [facility] Immature Granulocytes Relative 0.3 % LAB HEMETOLOGY METHOD 04/30/2024 8:37 PM [facility] Neutrophils Absolute 3.81 1.50 - 7.00 K/mcL LAB HEMETOLOGY METHOD 04/30/2024 8:37 PM [facility] Lymphocytes Absolute 2.99 1.00 - 5.00 K/mcL LAB HEMETOLOGY METHOD 04/30/2024 8:37 PM [facility] Monocytes Absolute 0.76 0.20 - 1.00 K/mcL LAB HEMETOLOGY METHOD 04/30/2024 8:37 PM [facility] Eosinophils Absolute 0.02 0.00 - 0.50 K/mcL LAB HEMETOLOGY METHOD 04/30/2024 8:37 PM [facility] Basophils Absolute 0.04 0.00 - 0.20 K/mcL LAB HEMETOLOGY METHOD 04/30/2024 8:37 PM [facility] Immature Granulocytes Absolute 0.02 0.00 - 0.03 K/mcL LAB HEMETOLOGY METHOD 04/30/2024 8:37 PM [facility] Blood Venous blood specimen / Unknown Venipuncture / Unknown 04/30/2024 8:00 PM EST 04/30/2024 8:31 PM EST us Edgardo Cervantes DO LAB BLOOD ORDERABLES Final Res ult Performing Organization Address [facility]/ZIP Co de Phone Number [facility] [address] [place] [address], [place] [phone] * B-type natriuretic peptide (04/30/2024 8:00 PM EST) BNP 30 <=100 pcg/mL LAB CHEMISTRY METHOD 04/30/2024 9:05 PM EST [facility] Blood Venous blood specimen / Unknown Venipuncture / Unknown 04/30/2024 8:00 PM EST 04/30/2024 8:30 PM EST us Edgardo Cervantes DO LAB BLOOD ORDERABLES Final Res ult Performing Organization Address [facility] Co de Phone Number [facility] [address] [place] [address], [place] [phone] * Magnesium (04/30/2024 8:00 PM EST) Magnesium 2.0 1.9 - 2.6 mg/dL LAB CHEMISTRY METHOD 04/30/2024 9:07 PM EST [facility] Blood Venous blood specimen / Unknown Venipuncture / Unknown 04/30/2024 8:00 PM EST 04/30/2024 8:30 PM EST us Edgardo Cervantes DO LAB BLOOD ORDERABLES Final Res ult Performing Organization Address [facility]/ZIP Co de Phone Number [facility] [address] [place] [address], [place] [phone] * Lipase (04/30/2024 8:00 PM EST) Lipase 34 13 - 75 unit/L LAB CHEMISTRY METHOD 04/30/2024 9:07 PM EST [facility] Blood Venous blood specimen / Unknown Venipuncture / Unknown 04/30/2024 8:00 PM EST 04/30/2024 8:30 PM EST us Edgardo Cervantes DO LAB BLOOD ORDERABLES Final Res ult [facility] [address] [place] [address], [place] [phone] * Comprehensive metabolic panel (04/30/2024 8:00 PM EST) Pathologist [facility] Sodium 140 133 - 145 mmol/L LAB CHEMISTRY METHOD 04/30/2024 9:16 PM [facility] Potassium 3.8 3.5 - 5.5 mmol/L LAB CHEMISTRY METHOD 04/30/2024 9:16 PM [facility] Chloride 109 96 - 110 mmol/L LAB CHEMISTRY METHOD 04/30/2024 9:16 PM [facility] CO2 24 21 - 32 mmol/L LAB CHEMISTRY METHOD 04/30/2024 9:16 PM [facility] Anion Gap 7 3 - 11 LAB CHEMISTRY METHOD 04/30/2024 9:16 PM [facility] Glucose 84 70 - 100 mg/dL LAB CHEMISTRY METHOD 04/30/2024 9:16 PM [facility] BUN 9 5 - 25 mg/dL LAB CHEMISTRY METHOD 04/30/2024 9:16 PM [facility] Creatinine 0.67 0.50 - 1.10 mg/dL LAB CHEMISTRY METHOD 04/30/2024 9:16 PM [facility] eGFR 109 >=60 mL/min/1. 73m2 LAB CHEMISTRY METHOD 04/30/2024 9:16 PM [facility] Comment:Calculation based on the??Chronic Kidney Disease Epidemiology Collaboration (CKD-EPI) equation refit??without adjustment for race. BUN/Creatinine Ratio 13.4 LAB CHEMISTRY METHOD 04/30/2024 9:16 PM [facility] Calcium 8.9 8.5 - 10.5 mg/dL LAB CHEMISTRY METHOD 04/30/2024 9:16 PM [facility] AST (SGOT) 13 10 - 42 unit/L LAB CHEMISTRY METHOD 04/30/2024 9:16 PM [facility] ALT (SGPT) 20 10 - 60 unit/L LAB CHEMISTRY METHOD 04/30/2024 9:16 PM [facility] Alkaline Phosphatase 77 42 - 121 unit/L LAB CHEMISTRY METHOD 04/30/2024 9:16 PM [facility] Total Protein 7.0 6.0 - 8.0 g/dL LAB CHEMISTRY METHOD 04/30/2024 9:16 PM [facility] Albumin 3.5 3.2 - 5.0 g/dL LAB CHEMISTRY METHOD 04/30/2024 9:16 PM [facility] Total Bilirubin 0.3 0.0 - 1.4 mg/dL LAB CHEMISTRY METHOD 04/30/2024 9:16 PM [facility] Blood Venous blood specimen / Unknown Venipuncture / Unknown 04/30/2024 8:00 PM EST 04/30/2024 8:30 PM EST us Edgardo Cervantes DO LAB BLOOD ORDERABLES Final Res ult [facility] [address] [place] [address], * Troponin I high sensitivity (04/30/2024 8:00 PM EST) High Sensitivity Troponin I <3 <=54 ng/L LAB CHEMISTRY METHOD 04/30/2024 8:58 PM [facility] Blood Venous blood specimen / Unknown Venipuncture / Unknown 04/30/2024 8:00 PM EST 04/30/2024 8:31 PM EST Narrative [facility] ([facility] - 04/30/2024 8:58 PM EST High levels of biotin in samples may falsely decrease hsTroponin values. ??Use caution when interpreting hsTroponin results in patients taking biotin who exhibit renal impairment (eGFR <60) or in patients taking more than 20 mg/day of biotin. us Edgardo Cervantes DO LAB BLOOD ORDERABLES Final Res ult [facility] [address] [place] [address], [place] [phone] documented in this encounter Visit Diagnoses Diagnosis [...] 2142 (New Bag - Prov ider: Cleveland Sloiz RN)2314 (Stopped - Provider: Cleveland Soliz RN) documented in this encounter Orders Medications Ordered That Law ht Not Have Been Administered Count Last Ordered Date First Ordered Date dexAMETHasone (DECADRON) injection 4 mg 1 0 04/30/2024 documented in this encounter Care Teams Line Ordering Clinician Relationship Specialty Start Date End Date Lisseth Nassar NP [address] [place] [id number] PCP - General 07/07/21 documented as of this encounter
--- OUTSIDE RECORDS SUMMARY | 2024-05-25 15:07 | XMS_ITS | Clinical Summary ---
Author Organization [facility] Address [address] [place] [address] Phone Care Team Providers Care Terra Cotta Mold Maker Name Role Phone Lisseth Nassar INSPECTOR AND SORTER Primary Care Provider [phone] Allergies Active Allergy Reactions Criticality Noted Date Comments Fentanyl Other,Fainting 02/09/2022 Haloperidol Anxiety Low 02/15/2022 Other Reaction(s): Feeling Irritable Morphine Low 08/12/2020 Redness around the site Nsaids (Non-Steroidal Anti-Inflammatory Drug) Other 09/08/2020 GI bleeding Sertraline Other 09/08/2020 Other Reaction(s): QT wave change interferes withQT waves of heart changed my QT interval has a bit bender changed my QT interval has a bit bender Sulfa (Sulfonamide Antibiotics) Rash Low 09/08/2020 Sulfamethoxazole-Trimet [...] Max Daily Amount: 5 mg 2 Active Active Problems Problem Noted Date Diagnosed Date Acute renal failure 03/17/2024 Acute kidney injury 03/17/2024 Encounters Date Type Department Care Team Description 04/30/2024 7:35 PM EST - 04/30/2024 11:59 PM EST [facility] Emergency [address] [place] [address] Anemia, unspecified type (Primary Dx) Discharge Disposition: Home or Self Care 03/19/2024 12:06 PM EST Anesthesia Event [facility] Endoscopy [address] [place] [address] Eugene BenignoDO 03/16/2024 6:41 PM EST - 03/19/2024 3:40 PM EST Hospital Encounter 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 us Provider Onbase MD ECG ORDERABLES Final Result * ECG-Outside (05/02/2024) Only the most recent of2 resultswithin the time period is included. us Provider Onbase MD ECG ORDERABLES Final Result * Urinalysis with reflex microscopic and culture (04/30/2024 10:34 PM EST) Specific [place] Urine 1.011 1.003 - 1.030 LAB URINALYSIS - AUTOMATED METHOD 04/30/2024 10:46 PM EST [facility] pH, Urine 7.0 5.0 - 8.0 pH LAB URINALYSIS - AUTOMATED METHOD 04/30/2024 10:46 PM EST [facility] Leukocytes, Urine Negative Negative LAB URINALYSIS - AUTOMATED METHOD 04/30/2024 10:46 PM [facility] Nitrite, Urine Negative Negative LAB URINALYSIS - AUTOMATED METHOD 04/30/2024 10:46 PM [facility] Protein, Urine Negative <=Trace mg/dL LAB URINALYSIS - AUTOMATED METHOD 04/30/2024 10:46 PM [facility] Glucose, Urine Negative Negative mg/dL LAB URINALYSIS - AUTOMATED METHOD 04/30/2024 10:46 PM [facility] Ketones, Urine Negative Negative mg/dL LAB URINALYSIS - AUTOMATED METHOD 04/30/2024 10:46 PM [facility] Urobilinogen, Urine 0.2 0.2 - 1.0 mg/dL LAB URINALYSIS - AUTOMATED METHOD 04/30/2024 10:46 PM [facility] Bilirubin, Urine Negative Negative LAB URINALYSIS - AUTOMATED METHOD 04/30/2024 10:46 PM [facility] Blood, Urine Negative Negative LAB URINALYSIS - AUTOMATED METHOD 04/30/2024 10:46 PM [facility] Urine Urine specimen obtained by clean catch procedure / Unknown Non-blood Collection / Unknown 04/30/2024 10:34 PM EST 04/30/2024 10:40 PM EST Brenda DELATORRE LAB URINE ORDERABLES Final Result [facility] [address] [place] [address], * Mccoy urine culture tube (04/30/2024 10:34 PM EST) Extra Tube Hold for add-ons. 05/01/2024 12:01 AM [facility] Comment:Auto resulted. Urine Urine specimen obtained by clean catch procedure / Unknown Non-blood Collection / Unknown 04/30/2024 10:34 PM EST 04/30/2024 10:40 PM EST Brenda DELATORRE LAB URINE ORDERABLES Final Result Performing Organization Address [facility] Co de Phone Number [facility] [address] [place] [address], [place] [phone] * Troponin I high sensitivity (04/30/2024 9:42 PM EST) Only the most recent of6 resultswithin the time period is included. High Sensitivity Troponin I 4 <=54 ng/L LAB CHEMISTRY METHOD 04/30/2024 10:35 PM EST [facility] Blood Venous blood specimen / Unknown Venipuncture / Unknown 04/30/2024 9:42 PM EST 04/30/2024 10:12 PM EST Narrative [facility] - 04/30/2024 10:35 PM EST High levels of biotin in samples may falsely decrease hsTroponin values. ??Use caution when interpreting hsTroponin results in patients taking biotin who exhibit renal impairment (eGFR <60) or in patients taking more than 20 mg/day of biotin. us Edgardo Cervantes DO LAB BLOOD ORDERABLES Final Res ult Performing Organization Address [facility] de Phone Number [facility] [address] [place] [address], [place] [phone] * XR Chest 2 Views (04/30/2024 8:28 PM EST) Only the most recent of2 resultswithin the time period is included. Anatomical Region Laterality Modality Body Radiographic Vicenta ging 05/01/2024 8:38 AM EST Impressions 05/01/2024 8:41 AM EST No acute pulmonary disease. No change since 03/16/2024. Code 94755 -------- FINAL REPORT -------- Dictated By: Paras Weeks Dictated Date: 05/01/2024 08:38 ET Assigned Physician: Paras Weeks Reviewed and Electronically Signed By: Paras Weeks Signed Date: 05/01/2024 08:41 ET Workstation ID: [id number] Transcribed By: Self Edit Transcribed Date: 05/01/2024 [...] pulmonary disease. No change since 03/16/2024. Code 78955 -------- FINAL REPORT -------- Dictated By: Paras Weeks Dictated Date: 05/01/2024 08:38 ET Assigned Physician: Paras Weeks Reviewed and Electronically Signed By: Paras Weeks Signed Date: 05/01/2024 08:41 ET Workstation ID: [id number] Transcribed By: Self Edit Transcribed Date: 05/01/2024 [...] GEMUSE QTc 456 ms GEMUSE P Wave [place] 32 degrees GEMUSE R [place] 2 degrees GEMUSE T [place] 24 degrees GEMUSE ECG Interpretation Normal sinus rhythm Normal ECG When compared with ECG of 05-YAHIR-2025 06:00, T wave amplitude has decreased in Lateral leads Confirmed by Nahid SMITH JOHN ([id number]) on 05/01/2024 7:50:24 AM GEMUSE 04/30/2024 8:17 PM EST 05/01/2024 7:50 AM EST Edgardo Cervantes DO ECG ORDERABLES Final Result GEMUSE * (ABNORMAL) CBC auto differential (04/30/2024 8:00 PM EST) Only the most recent of4 resultswithin the time period is included. WBC 7.6 4.8 - 10.8 K/mcL LAB HEMETOLOGY METHOD 04/30/2024 8:37 PM [facility] RBC 3.50(L) 3.80 - 4.80 M/[facility] LAB HEMETOLOGY METHOD 04/30/2024 8:37 PM [facility] Hemoglobin 9.7(L) 11.5 - 16.0 g/dL LAB HEMETOLOGY METHOD 04/30/2024 8:37 PM [facility] Hematocrit 28.7(L) 35.0 - 47.0 % LAB HEMETOLOGY METHOD 04/30/2024 8:37 PM [facility] MCV 82.5 79.0 - 98.0 FL LAB HEMETOLOGY METHOD 04/30/2024 8:37 PM [facility] MCH 27.9 27.0 - 32.0 pcg LAB HEMETOLOGY METHOD 04/30/2024 8:37 PM [facility] MCHC 33.8 32.0 - 37.0 g/dL LAB HEMETOLOGY METHOD 04/30/2024 8:37 PM [facility] RDW 16.4(H) 11.0 - 15.0 % LAB HEMETOLOGY METHOD 04/30/2024 8:37 PM [facility] Platelets 304 130 - 400 K/mcL LAB HEMETOLOGY METHOD 04/30/2024 8:37 PM [facility] MPV 9.1 7.0 - 11.0 FL LAB HEMETOLOGY METHOD 04/30/2024 8:37 PM [facility] NRBC 0.0 <1.0 % LAB HEMETOLOGY METHOD 04/30/2024 8:37 PM [facility] NRBC Absolute 0.00 <0.10 K/mcL LAB HEMETOLOGY METHOD 04/30/2024 8:37 PM [facility] Neutrophils Relative 49.9 % LAB HEMETOLOGY METHOD 04/30/2024 8:37 PM [facility] Lymphocytes Relative 39.1 % LAB HEMETOLOGY METHOD 04/30/2024 8:37 PM [facility] Monocytes Relative 9.9 % LAB HEMETOLOGY METHOD 04/30/2024 8:37 PM [facility] Eosinophils Relative 0.3 % LAB HEMETOLOGY METHOD 04/30/2024 8:37 PM [facility] Basophils Relative 0.5 % LAB HEMETOLOGY METHOD 04/30/2024 8:37 PM [facility] Immature Granulocytes Relative 0.3 % LAB HEMETOLOGY METHOD 04/30/2024 8:37 PM [facility] Neutrophils Absolute 3.81 1.50 - 7.00 K/mcL LAB HEMETOLOGY METHOD 04/30/2024 8:37 PM [facility] Lymphocytes Absolute 2.99 1.00 - 5.00 K/mcL LAB HEMETOLOGY METHOD 04/30/2024 8:37 PM [facility] Monocytes Absolute 0.76 0.20 - 1.00 K/mcL LAB HEMETOLOGY METHOD 04/30/2024 8:37 PM EST [facility] Eosinophils Absolute 0.02 0.00 - 0.50 K/mcL LAB HEMETOLOGY METHOD 04/30/2024 8:37 PM EST [facility] Basophils Absolute 0.04 0.00 - 0.20 K/mcL LAB HEMETOLOGY METHOD 04/30/2024 8:37 PM EST [facility] Immature Granulocytes Absolute 0.02 0.00 - 0.03 K/[facility] LAB HEMETOLOGY METHOD 04/30/2024 8:37 PM EST [facility] Blood Venous blood specimen / Unknown Venipuncture / Unknown 04/30/2024 8:00 PM EST 04/30/2024 8:31 PM EST Edgardo Cervantes DO LAB BLOOD ORDERABLES Final Res ult Performing Organization Address City/[facility]/ZIP Co de Phone Number [facility] [address] [place] [address], [place] [phone] * B-type natriuretic peptide (04/30/2024 8:00 PM EST) Only the most recent of2 resultswithin the time period is included. BNP 30 <=100 pcg/mL LAB CHEMISTRY METHOD 04/30/2024 9:05 PM EST [facility] Blood Venous blood specimen / Unknown Venipuncture / Unknown 04/30/2024 8:00 PM EST 04/30/2024 8:30 PM EST Edgardo Ramon RomeroVidyard DO LAB BLOOD ORDERABLES Final Res ult [facility] [address] [place] [address], [place] [phone] * Magnesium (04/30/2024 8:00 PM EST) Only the most recent of3 resultswithin the time period is included. Magnesium 2.0 1.9 - 2.6 mg/dL LAB CHEMISTRY METHOD 04/30/2024 9:07 PM EST [facility] Blood Venous blood specimen / Unknown Venipuncture / Unknown 04/30/2024 8:00 PM EST 04/30/2024 8:30 PM EST us Edgardo Cervantes DO LAB BLOOD ORDERABLES Final Res ult Performing Organization Address [facility]/ZIP Co de Phone Number [facility] [address] [place] [address], [place] [phone] * Lipase (04/30/2024 8:00 PM EST) Only the most recent of4 resultswithin the time period is included. Lipase 34 13 - 75 unit/L LAB CHEMISTRY METHOD 04/30/2024 9:07 PM EST [facility] Blood Venous blood specimen / Unknown Venipuncture / Unknown 04/30/2024 8:00 PM EST 04/30/2024 8:30 PM EST us Edgardo Cervantes DO LAB BLOOD ORDERABLES Final Res ult Performing Organization Address [facility] de Phone Number [facility] [address] [place] [address], [place] [phone] * Cortisol (04/30/2024 8:00 PM EST) Cortisol 4.3 mcg/dL LAB CHEMISTRY METHOD 04/30/2024 9:44 PM EST [facility] Blood Venous blood specimen / Unknown Venipuncture / Unknown 04/30/2024 8:00 PM EST 04/30/2024 8:30 PM EST Narrative [facility] - 04/30/2024 9:44 PM EST CORTISOL REFERENCE RANGE ?? 8 AM SPEC: ??5.0-23.0 mcg/dL ?? 4 PM SPEC: ??3.0-16.0 mcg/dL ?? 8 PM SPEC: ??<5.0 mcg/dL us Brenda DELATORRE LAB BLOOD ORDERABLES Final Result [facility] [address] [place] [address], [place] [phone] * Comprehensive metabolic panel (04/30/2024 8:00 PM EST) Only the most recent of3 resultswithin the time period is included. [facility] Sodium 140 133 - 145 mmol/L LAB CHEMISTRY METHOD 04/30/2024 9:16 PM [facility] Potassium 3.8 3.5 - 5.5 mmol/L LAB CHEMISTRY METHOD 04/30/2024 9:16 PM [facility] Chloride 109 96 - 110 mmol/L LAB CHEMISTRY METHOD 04/30/2024 9:16 PM [facility] CO2 24 21 - 32 mmol/L LAB CHEMISTRY METHOD 04/30/2024 9:16 PM [facility] Anion Gap 7 3 - 11 LAB CHEMISTRY METHOD 04/30/2024 9:16 PM [facility] Glucose 84 70 - 100 mg/dL LAB CHEMISTRY METHOD 04/30/2024 9:16 PM [facility] BUN 9 5 - 25 mg/dL LAB CHEMISTRY METHOD 04/30/2024 9:16 PM [facility] Creatinine 0.67 0.50 - 1.10 mg/dL LAB CHEMISTRY METHOD 04/30/2024 9:16 PM [facility] eGFR 109 >=60 mL/min/1. 73m2 LAB CHEMISTRY METHOD 04/30/2024 9:16 PM [facility] Comment:Calculation based on the??Chronic Kidney Disease Epidemiology Collaboration (CKD-EPI) equation refit??without adjustment for race. BUN/Creatinine Ratio 13.4 LAB CHEMISTRY METHOD 04/30/2024 9:16 PM EST [facility] Calcium 8.9 8.5 - 10.5 mg/dL LAB CHEMISTRY METHOD 04/30/2024 9:16 PM [facility] AST (SGOT) 13 10 - 42 unit/L LAB CHEMISTRY METHOD 04/30/2024 9:16 PM [facility] ALT (SGPT) 20 10 - 60 unit/L LAB CHEMISTRY METHOD 04/30/2024 9:16 PM [facility] Alkaline Phosphatase 77 42 - 121 unit/L LAB CHEMISTRY METHOD 04/30/2024 9:16 PM [facility] Total Protein 7.0 6.0 - 8.0 g/dL LAB CHEMISTRY METHOD 04/30/2024 9:16 PM [facility] Albumin 3.5 3.2 - 5.0 g/dL LAB CHEMISTRY METHOD 04/30/2024 9:16 PM [facility] Total Bilirubin 0.3 0.0 - 1.4 mg/dL LAB CHEMISTRY METHOD 04/30/2024 9:16 PM [facility] Blood Venous blood specimen / Unknown Venipuncture / Unknown 04/30/2024 8:00 PM EST 04/30/2024 8:30 PM EST us Edgardo Cervantes DO LAB BLOOD ORDERABLES Final Res ult [facility] [address] [place] [address], * EGD Anesthesia - MAC; [facility] ENDOSCOPY (03/19/2024 12:19 PM EST) Anatomical Region Laterality Modality Endoscopy 03/19/2024 12:0 4 PM EST Impressions 03/19/2024 12:21 PM EST - Normal esophagus. ? - Normal examined jejunum. ? - Gastric bypass. ? - Erythematous mucosa in the stomach. Biopsied. Clip ? was placed. Clip employment law specialist: [employer]. Recommendation: ?- Discharge patient to home. ? - Resume previous diet. ? - Continue present medications. ? - Await pathology results. ? - Bleeding from gastric biopsy site treated with an ? endoclip as the bleeding would not stop spontaneously. ? - Coagulation profile ? - Marijuana cessation recommended. ? - F/U with primary GI doctor at [facility]. Narrative 03/19/2024 12:[address] [facility] GI Patient Name: Eboni Tatum Procedure Date: 03/19/2024 12:04 PM Date of : 1975 Age: 48 Gender: Female Note Status: Finalized Attending MD: Jesse Saenz DO, [id number] Procedure Date No Time: 03/19/2024 Procedure: ? [...] physician, the nurse, the ? anesthesiologist, the investigative shopper and the field service poultry technician ? in the pre-procedure area in [...] hemostatic clip was successfully placed. Clip ? employment law specialist: [employer]. There was no bleeding ? at the end of the procedure. Estimated blood loss was ? minimal. Procedure Code(s): ? --- Professional --- ? 87778, 59, Esophagogastroduodenoscopy, flexible, ? transoral; with control of bleeding, any method ? 54846, Esophagogastroduodenoscopy, flexible, ? transoral; with biopsy, single or multiple Diagnosis Code(s): ? --- Professional --- ? Z98.84, Bariatric surgery status ? K31.89, Other diseases of stomach and duodenum ? R10.13, Epigastric pain ? R11.2, Nausea with vomiting, unspecified CPT copyright 2020 [employer]. All rights reserved. The codes documented in this report are preliminary and upon builder's labourer review may be revised to meet current compliance requirements. JESSE Saenz DO 03/19/2024 12:21:51 PM This report has been signed electronically.Jesse Saenz DO Number of Addenda: 0 Note Initiated On: 03/19/2024 12:04 PM Scope In: Scope Out: ? Endoscopy Department at [facility] - [address] [place] [address], ? [place] [address] Procedure Note Jesse Saenz DO - 03/19/2024 [facility] GI Patient Name: Eboni Tatum Procedure Date: 03/19/2024 12:04 PM Date of : 1975 Age: 48 Gender: Female Note Status: Finalized Attending MD: Jesse Saenz DO, [id number] Procedure Date No Time: 03/19/2024 Procedure: Upper [...] the physician, the nurse, the anesthesiologist, the investigative shopper and thetechnician in the pre-procedure area in [...] hemostasis,one hemostatic clip was successfully placed. Clip employment law specialist: [employer]. There was nobleeding at the end of the procedure. Estimated blood losswas minimal. Procedure Code(s): --- Professional --- 95867, 59, Esophagogastroduodenoscopy, flexible, transoral; with control of bleeding, any method 16590, Esophagogastroduodenoscopy, flexible, transoral; with biopsy, single or multiple Diagnosis Code(s): --- Professional --- Z98.84, Bariatric surgery status K31.89, Other diseases of stomach and duodenum R10.13, Epigastric pain R11.2, Nausea with vomiting, unspecified CPT copyright 2020 [employer]. All rights reserved. The codes documented in this report are preliminary and upon builder's labourer reviewmay be revised to meet current compliance requirements. JESSE Saenz DO 03/19/2024 12:21:51 PM This report has been signed electronically.Jesse Saenz DO Number of Addenda: 0 Note Initiated On: 03/19/2024 12:04 PM Scope In: Scope Out: Endoscopy Department at [facility] - [address] [place] [phone] IMPRESSION: - Normal esophagus. - Normal examined jejunum. - Gastric bypass. - Erythematous mucosa in the stomach. Biopsied.Clip was placed. Clip employment law specialist: [employer]. Recommendation: - Discharge patient to home. - Resume previous diet. - Continue present medications. - Await pathology results. - Bleeding from gastric biopsy site treated with an endoclip as the bleeding would not stopspontaneously. - Coagulation profile - Marijuana cessation recommended. - F/U with primary GI doctor at [facility]. us Jesse Saenz DO GI~PROCEDURE ORDERABLES Final Re sult * Tissue exam (03/19/2024 12:13 PM EST) Final Diagnosis Stomach, biopsy: Gastric antral and oxyntic-type mucosa with minimal chronic inflammation. No active gastritis and no intestinal metaplasia identified. No Helicobacter pylori identified on hematoxylin and eosin stained sections. 03/20/2024 11:19 AM [facility] Gross Description A. Stomach, biopsies, gastric: Labeled stomach biopsies . Received in formalin are three irregular morley mucosal tissue fragments, ranging from 0.3 cm to 0.6 cm in greatest dimension, which are wrapped in paper and submitted in toto in one cassette, three pieces, multiple levels on one slide. ABDOUL 03/20/2024 11:19 AM [facility] Disclaimer Unless otherwise specified, all tissue is 10% NB formalin fixed and paraffin embedded. 03/20/2024 11:19 AM [facility] Tissue Stomach structure / Unknown 03/19/2024 12:13 PM EST 03/19/2024 12:58 PM EST us Jesse Saenz DO LAB PATHOLOGY ORDERABLES Final R esult Performing Organization Address City/[facility]/ZIP Co de Phone Number [facility] [address] [place] [address], [place] [phone] * Prothrombin time with INR (03/18/2024 6:25 AM EST) Protime 10.6 10.6 - 13.9 sec LAB COAGULATION METHOD 03/18/2024 8:03 AM [facility] INR 0.9 LAB COAGULATION METHOD 03/18/2024 8:03 AM [facility] Blood Venous blood specimen / Unknown Venipuncture / Unknown 03/18/2024 6:25 AM EST 03/18/2024 7:16 AM EST Derrick Severino MD LAB BLOOD ORDERABLES Final Resu lt Performing Organization Address City/[facility]/ZIP Co de Phone Number [facility] [address] [place] [address], [place] [phone] * C-reactive protein (03/18/2024 6:24 AM EST) C-Reactive Protein <0.29 <=0.50 mg/dL LAB CHEMISTRY METHOD 03/18/2024 8:14 AM EST [facility] Blood Venous blood specimen / Unknown Venipuncture / Unknown 03/18/2024 6:24 AM EST 03/18/2024 7:15 AM EST Derrick Severino MD LAB BLOOD ORDERABLES Final Resu lt Performing Organization Address [facility]/ZIP Co de Phone Number [facility] [address] [place] [address], [place] [phone] * (ABNORMAL) Phosphorus (03/18/2024 6:24 AM EST) Pathologist [facility] Phosphorus 2.3(L) 2.5 - 4.5 mg/dL LAB CHEMISTRY METHOD 03/18/2024 8:14 AM EST [facility] Blood Venous blood specimen / Unknown Venipuncture / Unknown 03/18/2024 6:24 AM EST 03/18/2024 7:15 AM EST us Derrick Severino MD LAB BLOOD ORDERABLES Final Resu lt Performing Organization Address [facility]/ZIP Co de Phone Number [facility] [address] [place] [address], [place] [phone] * XR Abdomen 1 View (03/17/2024 11:44 [...] Signed Date: 03/17/2024 11:56 ET Workstation ID: [id number] Transcribed By: Self Edit Transcribed Date: 03/17/2024 [...] Signed Date: 03/17/2024 11:56 ET Workstation ID: [id number] Transcribed By: Self Edit Transcribed Date: 03/17/2024 11:55 ET Derrick Severino MD IMG XR PROCEDURES Final Result * (ABNORMAL) Basic metabolic panel (03/17/2024 5:34 AM EST) Only the most recent of2 resultswithin the time period is included. Sodium 133 133 - 145 mmol/L LAB CHEMISTRY METHOD 03/17/2024 6:27 AM EST [facility] Potassium 4.2 3.5 - 5.5 mmol/L LAB CHEMISTRY METHOD 03/17/2024 6:27 AM EST [facility] Comment:Hemolysis present Chloride 101 96 - 110 mmol/L LAB CHEMISTRY METHOD 03/17/2024 6:27 AM EST [facility] CO2 28 21 - 32 mmol/L LAB CHEMISTRY METHOD 03/17/2024 6:27 AM [facility] Anion Gap 4 3 - 11 LAB CHEMISTRY METHOD 03/17/2024 6:27 AM [facility] Glucose 129(H) 70 - 100 mg/dL LAB CHEMISTRY METHOD 03/17/2024 6:27 AM [facility] BUN 29(H) 5 - 25 mg/dL LAB CHEMISTRY METHOD 03/17/2024 6:27 AM [facility] Creatinine 1.80(H) 0.50 - 1.10 mg/dL LAB CHEMISTRY METHOD 03/17/2024 6:27 AM [facility] eGFR 35(L) >=60 mL/min/1. 73m2 LAB CHEMISTRY METHOD 03/17/2024 6:27 AM [facility] Comment:Calculation based on the??Chronic Kidney Disease Epidemiology Collaboration (CKD-EPI) equation refit??without adjustment for race. BUN/Creatinine Ratio 16.1 LAB CHEMISTRY METHOD 03/17/2024 6:27 AM [facility] Calcium 8.7 8.5 - 10.5 mg/dL LAB CHEMISTRY METHOD 03/17/2024 6:27 AM [facility] Blood Venous blood specimen / Unknown Venipuncture / Unknown 03/17/2024 5:34 AM EST 03/17/2024 5:46 AM EST us Gabe Coronado MD LAB BLOOD ORDERABLES Final Result [facility] [address] [place] [address], * Urinalysis with reflex microscopic (03/17/2024 4:06 AM EST) Specific [place] Urine 1.009 1.003 - 1.030 LAB URINALYSIS - AUTOMATED METHOD 03/17/2024 4:36 AM [facility] pH, Urine 5.5 5.0 - 8.0 pH LAB URINALYSIS - AUTOMATED METHOD 03/17/2024 4:36 AM [facility] Leukocytes, Urine Negative Negative LAB URINALYSIS - AUTOMATED METHOD 03/17/2024 4:36 AM [facility] Nitrite, Urine Negative Negative LAB URINALYSIS - AUTOMATED METHOD 03/17/2024 4:36 AM [facility] Protein, Urine Trace <=Trace mg/dL LAB URINALYSIS - AUTOMATED METHOD 03/17/2024 4:36 AM [facility] Glucose, Urine Negative Negative mg/dL LAB URINALYSIS - AUTOMATED METHOD 03/17/2024 4:36 AM [facility] Ketones, Urine Negative Negative mg/dL LAB URINALYSIS - AUTOMATED METHOD 03/17/2024 4:36 AM [facility] Urobilinogen, Urine 0.2 0.2 - 1.0 mg/dL LAB URINALYSIS - AUTOMATED METHOD 03/17/2024 4:36 AM [facility] Bilirubin, Urine Negative Negative LAB URINALYSIS - AUTOMATED METHOD 03/17/2024 4:36 AM [facility] Blood, Urine Negative Negative LAB URINALYSIS - AUTOMATED METHOD 03/17/2024 4:36 AM [facility] Urine Urine specimen obtained by clean catch procedure / Unknown Non-blood Collection / Unknown 03/17/2024 4:06 AM EST 03/17/2024 4:25 AM EST us Gabe Coronado MD LAB URINE ORDERABLES Final Result [facility] [address] [place] [address], * Sodium, urine, random (03/17/2024 4:06 AM EST) Sodium, Ur 19 mmol/L LAB CHEMISTRY METHOD 03/17/2024 4:54 AM [facility] Urine Urine specimen obtained by clean catch procedure / Unknown Non-blood Collection / Unknown 03/17/2024 4:06 AM EST 03/17/2024 4:25 AM EST us Gabe Coronado MD LAB URINE ORDERABLES Final Result Performing Organization Address [facility]/ZIP Co de Phone Number [facility] [address] [place] [address], [place] [phone] * Protein, urine, random (03/17/2024 4:06 AM EST) Protein, Urine 20 mg/dL LAB CHEMISTRY METHOD 03/17/2024 4:54 AM EST [facility] Urine Urine specimen obtained by clean catch procedure / Unknown Non-blood Collection / Unknown 03/17/2024 4:06 AM EST 03/17/2024 4:25 AM EST us Gabe Coronado MD LAB URINE ORDERABLES Final Result Performing Organization Address [facility] Co de Phone Number [facility] [address] [place] [address], [place] [phone] * HCG qualitative, urine (03/17/2024 4:06 AM EST) Preg Test, Ur Negative Negative 03/17/2024 4:56 AM EST [facility] Urine Urine specimen obtained by clean catch procedure / Unknown Non-blood Collection / Unknown 03/17/2024 4:06 AM EST 03/17/2024 4:25 AM EST us Gabe Coronado MD LAB URINE ORDERABLES Final Result Performing Organization Address City/[facility]/ZIP Co de Phone Number [facility] [address] [place] [address], [place] [phone] * Creatinine, urine, random (03/17/2024 4:06 AM EST) Creatinine, Urine 77.0 mg/dL LAB CHEMISTRY METHOD 03/17/2024 4:54 AM EST [facility] ([facility] Urine Urine specimen obtained by clean catch procedure / Unknown Non-blood Collection / Unknown 03/17/2024 4:06 AM EST 03/17/2024 4:25 AM EST us Gabe Coronado MD LAB URINE ORDERABLES Final Result [facility] ([facility]) [facility] [address] [place] [address], [place] [phone] * US Retroperitoneal Complete (03/17/2024 2:05 AM [...] Signed Date: 03/16/2024 18:47 ET Workstation ID: [id number] Transcribed By: Self Edit Transcribed Date: 03/16/2024 [...] Signed Date: 03/16/2024 18:47 ET Workstation ID: [id number] Transcribed By: Self Edit Transcribed Date: 03/16/2024 [...] currently active code status orders. Care Teams [employer] Relationship Specialty Start Date End Date Lisseth Nassar NP [address] [facility] [place] [id number] PCP - General 07/07/21
--- OUTSIDE RECORDS SUMMARY | 2024-05-25 15:07 | XMS_ITS | Clinical Summary ---
Author Organization [facility] Address [address] [place] [address] Care Team Providers Care Printing Agent Name Role Phone Unavailable Primary Care Provider [...]
== END 2024-05-25 15:12 | disposition home or self-care (01) ==
LOC: HO.HUSH 13:31
PROVIDERS: PCP Nurse Practitioner Family; Visit Provider Urology
DX: N30.10 Interstitial cystitis (chronic) without hematuria (principal); R35.1 Nocturia; N39.0 Urinary tract infection, site not specified; N39.41 Urge incontinence
CPT/HCPCS: 99213

== ENCOUNTER 2024-06-04 14:21 | Inpatient (IN) | payer MEDICARE, MEDICAID, SELFPAY ==
--- NOTE | ~2024-06-04 | CT_ITS ---
CLINICAL HISTORY: severe ORTIZ uncontrolled HTN CT head without contrast Comparison: MR/TX/SR - MR HEAD/BRAIN WO CON - 03/26/24 08:[address]/SR - CT HEAD/BRAIN WO IV CON - 11/18/23 07:38 EDT Findings: The size and shape of the ventricular system is within normal limits for this patient's age. Attenuation of the brain parenchyma is within normal limits. Mccoy-white differentiation is well preserved. No midline shift or mass effect. No intracranial hemorrhage. Visualized portions of the paranasal sinuses, orbits, and calvarium are unremarkable. IMPRESSION: 1. No acute intracranial findings. This document has been electronically signed by: Atilio Fang MD on 06/07/2024 06:25:32
--- NOTE | ~2024-06-04 | CT_ITS ---
CLINICAL HISTORY: Epigastric and lower abdominal pain CT abdomen and pelvis with contrast Comparison: CT/[place]/SR - CT ABDOMEN WO IV CON - 04/11/24 09:40 EST Findings: Mild atelectasis of the lung base. The liver is enlarged without suspicious focal hepatic lesions. No intrahepatic or extrahepatic ductal dilatation is seen. The hepatic and portal veins are patent. No calcified gallstones in the gallbladder. Pancreas, spleen and adrenals are normal in appearance. No suspicious focal lesion of the kidneys. No hydronephrosis or calculi. The abdominal aorta demonstrates no evidence of aneurysmal dilatation or dissection. Moderate amount of fecal material within the colon. Area of bowel wall thickening of the transverse colon and sigmoid colon. No evidence of bowel obstruction. Appendix is normal. Status post gastric bypass. The pelvic organs are within normal limits. No intraperitoneal free air or fluid is visualized. No pathologic lymphadenopathy is seen. Calcifications of the pelvis are likely to be phleboliths. Degenerative change of the L5-S1. IMPRESSION: Areas of bowel wall thickening of the transverse colon and sigmoid colon could be due to nondistention. Colitis can not be excluded. Additional findings as above. This document has been electronically signed by: Narendra Bañuelos MD on 06/04/2024 18:34:49
[2024-06-04 14:35] VITALS: BP 163/109; PULSE 80; RESP 18; O2SAT 97; BMI 29.9
--- NOTE | 2024-06-04 14:42 | ED.GENADULT ---
HPI - General Adult General Chief complaint: General Medical Stated complaint: Came from Infusion Center Time Seen by Provider: 06/04/24 14:29 Source: patient Mode of arrival: ambulatory Limitations: no limitations History of Present Illness ED Provider: Dr. Yasmany Juan HPI narrative: 48-year-old female with past medical history of extensive bariatric history including slipped lap band, gastric sleeve, gastric bypass, adrenal insufficiency on daily hydrocortisone, hiatal hernia, HTN, nonischemic cardiomyopathy EF 50%, asthma, chronic UTI, MELANY, chronic joint pain, chronic abdominal pain, chronic nausea/vomiting who was brought to emergency department from the [facility] [place] for evaluation of chest pain, abdominal pain, nausea, vomiting and elevated blood pressure. The patient has been ill for approximately 2 days. Her symptoms seem including severe sharp,epigastric pain /10 which she states she gets frequently, persistent nausea and vomiting, not able to hold down any food, fluid or medications. She states that at the infusion clinic she was noted to have a blood pressure of 260/190. She also had a fluttering sensation in her chest. Given these symptoms in his your elevated blood pressure,she was brought to emergency department for evaluation The patient states that her hypertension is managed by our aircraft dispatcher, Dr. Purdy . She takes carvedilol 6.5 mg b.i.d.. your blood pressure is usually normal and is only elevated when she has significant pain. She states luis carlos tDr. Murillo told her that she her high blood pressures related to your her severe and she would be treated with pain medications and not by increasing her antihypertensive medications. In the past, she was received IV fluid, Zofran and Dilaudid IV for her chronic pain and elevated blood pressures. The patient does take a high dose of narcotic medications at home. She was on MS Contin 60 mg b.i.d. and oxycodone 50 mg TID. Related Data Home Medications ?Medication ?Instructions ?Recorded ?Confirmed albuterol sulfate 2.5 mg/3 mL 1 vial inhalation Q6H 10/07/20 05/25/24 (0.083 %) solution for nebulization montelukast 10 mg tablet 1 tab PO DAILY 10/07/20 05/25/24 zolpidem 5 mg tablet 5 mg PO BEDTIME PRN Insomnia 09/25/21 05/25/24 albuterol sulfate 90 mcg/actuation 1 inh inhalation Q4H PRN Shortness 11/26/22 05/25/24 aerosol inhaler (Ventolin HFA) Of Breath pantoprazole 40 mg tablet,delayed 40 mg PO BID@0630,1630 10/14/23 05/25/24 release thiamine HCl (vitamin B1) 100 mg 100 mg PO DAILY 12/12/23 05/25/24 tablet clonazepam 1 mg tablet 1 mg PO TID 04/05/24 05/25/24 nortriptyline 75 mg capsule 75 mg PO DAILY 04/05/24 05/25/24 quetiapine 100 mg tablet 100 mg PO BEDTIME 04/05/24 05/25/24 estradiol 0.01% (0.1 mg/gram) 1 g vaginal MOWEFR 04/09/24 05/25/24 vaginal cream fluocinolone 0.01 % topical cream 1 appl topical BID PRN Rash 04/09/24 05/25/24 fluoride (sodium) 1.1 % dental 1 appl PO DAILY 04/09/24 05/25/24 cream (Sodium Fluoride 5000 Plus) oxycodone 15 mg tablet 15 mg PO Q8H PRN pain 04/09/24 05/25/24 oxycodone myristate 18 mg capsule 54 mg PO Q12H 04/09/24 05/25/24 sprinkle extended release 12hr(DON'T CRUSH) (Xtampza ER) quetiapine 50 mg tablet 50 mg PO DAILY 04/09/24 05/25/24 scopolamine base 1 mg over 3 days 1 patch topical Q3D 04/09/24 05/25/24 transdermal patch carvedilol 6.25 mg tablet 6.25 mg PO DIRECTED 04/18/24 05/25/24 Previous Rx's ?Medication ?Instructions ?Recorded tamsulosin 0.4 mg capsule 0.4 mg PO BEDTIME help with 02/14/24 urinary flow #30 caps fesoterodine 4 mg tablet,extended 4 mg PO DAILY 30 days #30 tabs 03/05/24 release 24 hr (Toviaz) food supplemt, lactose-reduced 1 ea PO TID #90 ea 05/04/24 0.06 gram-1.5 kcal/mL oral liquid (Boost Plus) sodium,potassium,mag sulfates 17.5 See Rx Instructions PO .COMPLEX 05/04/24 gram-3.13 gram-1.6 gram oral soln #354 mL (Suprep Bowel Prep Kit) food supplemt, lactose-reduced 1 ea PO BID-TID #90 ea 05/08/24 0.06 gram-1 kcal/mL oral liquid (Boost High Protein) hydrocortisone 5 mg tablet See Rx Instructions PO .COMPLEX 05/16/24 #90 tabs hydroxyzine pamoate 25 mg capsule 25 mg PO BEDTIME #90 caps 05/25/24 (Vistaril) nitrofurantoin 100 mg PO BID 7 days #14 caps 06/01/24 monohydrate/macrocrystals 100 mg capsule (Macrobid) Allergies Allergy/AdvReac Type Severity Reaction Status Date / Time sertraline [From ZOLOFT] Allergy Intermediate prolonged Verified 06/04/24 14:37 QT interval Sulfa (Sulfonamide Allergy Intermediate RASH Verified 06/04/24 14:37 Antibiotics) [SULFA (SULFONAMIDE ANTIBIOTICS)] haloperidol [From Haldol] Allergy Mild unknown Verified 06/04/24 14:37 morphine [MORPHINE] Allergy Mild Rash Verified 06/04/24 14:37 NSAIDS (Non-Steroidal AdvReac Intermediate STOMACH Verified 06/04/24 14:37 Anti-Inflamma UPSET [NSAIDS (NON-STEROIDAL ANTI-INFLAMMA] fentanyl patch Allergy Severe Unresponsiv Uncoded 06/04/24 14:37 e Review of Systems Review of Systems: Yes all other systems are reviewed and are negative [facility] Past Medical History [facility] Narrative: social history: She does smoke cigarettes. She denies alcohol use. She occasionally smokes marijuana and denies other drug use. Medical History Multinodular goiter HTN (hypertension) Decreased oral intake Takotsubo cardiomyopathy Burn injury Arthritis Low back pain Elevated cholesterol SOB (shortness of breath) Asthma Numbness Mood disorder IBS (irritable bowel syndrome) OAB (overactive bladder) Sleep apnea Hypersomnia Anxiety Surgical History Hx of gastric bypass Hx of total knee replacement Hx of knee surgery Hx of hernia repair History of cystoscopy Hx of laparoscopic gastric banding Hx of hysterectomy History of H/O gastric bypass Hx of endoscopy History of colonoscopy Family History Family History Father Hx of colon cancer, stage IV Mother Family history of high blood pressure Social History Social History Household Members: Children Household Members Other:: My son Housing: Apartment Are you a primary home care nurse to a significant other at home: No Do you presently have visiting nurse or other home services: Yes (youngest dtr is wellness program coordinator) Alcohol intake: never Comment: previously medicated Patient Tobacco Use Status: Never used Tobacco Smoked in Last 30 Days: No e-Cigarette/Vaping Use: Never Used Second Hand Smoke Exposure: No Use of substances other than those prescribed or required for medical reasons: Yes Substance Use Type: Marijuana Advance Directives: Yes Advance Directives Information Provided: Yes Advance Directives on File: No service: No Physical Exam ED Vital Signs: Vital Signs - 24 hr 06/04/24 14:35 06/04/24 16:00 06/04/24 18:09 Pulse Rate 80 71 88 Respiratory Rate 18 18 18 Blood Pressure 163/109 H 170/111 H 158/111 H Pulse Oximetry 97 96 97 Oxygen Delivery Method Room Air Room Air BMI result Body Mass Index 29.9 Vital signs revealed an elevated blood pressure of 163/109 otherwise unremarkable Exam: General: Awake, alert in no distress Head: Normocephalic, atraumatic EENT: PERRL, Lids normal, sclera normal, conjunctiva normal, nose normal , ears normal, throat without erythema or exudates Neck: Supple, no adenopathy Lung: breath sounds symmetric, no wheezing, rales or rhonchi Chest: symmetric movement, nontender Heart: regular rate and rhythm, normal S1, S2 no murmurs or rubs Abdomen: soft, moderate to severe epigastric tenderness nondistended, normal bowel sounds Back: no vertebral tenderness, no CVAT Extremities: no deformities, moves all extremities symmetrically Neuro: Awake, alert, oriented, normal speech, cranial nerves intact, moves all extremities symmetrically Psych: Pleasant, cooperative Medications Administered Discontinued Medications Generic Name Dose Route Start Last Admin Trade Name Freq PRN Reason Stop Dose Admin Hydrocortisone Sodium Succinate 100 mg 06/04/24 14:48 06/04/24 14:52 Hydrocortisone Sod Succ/Pf 100 Mg Vial IVPUSH 06/04/24 14:49 100 mg ONCE ONE Administration Hydromorphone HCl 1 mg 06/04/24 14:43 06/04/24 14:51 Hydromorphone Hcl 1 Mg/Ml Syringe IVPUSH 06/04/24 14:44 1 mg ONCE STA Administration Protocol Hydromorphone HCl 1 mg 06/04/24 15:51 06/04/24 15:56 Hydromorphone Hcl 1 Mg/Ml Syringe IVPUSH 06/04/24 15:52 1 mg ONCE STA Administration Protocol Hydromorphone HCl 2 mg 06/04/24 16:27 06/04/24 16:34 Hydromorphone Hcl 2 Mg/Ml Vial IVPUSH 06/04/24 16:28 2 mg ONCE ONE Administration Protocol Sodium Chloride 1,000 mls @ 999 mls/hr 06/04/24 14:43 06/04/24 16:56 Ns IV 06/04/24 15:43 Infused .Q1H1M STA Infusion Iohexol 100 ml 06/04/24 17:57 06/04/24 17:57 Iohexol 350 Mg/Ml 100 Ml Infus..Btl IV 06/04/24 17:58 85 ml ONCE ONE Administration Ondansetron HCl 4 mg 06/04/24 14:43 06/04/24 14:51 Ondansetron Hcl 4 Mg/2 Ml Vial IVPUSH 06/04/24 14:44 4 mg ONCE ONE Administration Medical Decision Making Medical Decision Making MDM Narrative: 48-year-old female with past medical history of extensive bariatric history including slipped lap band, gastric sleeve, gastric bypass, adrenal insufficiency on daily hydrocortisone, hiatal hernia, HTN, nonischemic cardiomyopathy EF 50%, asthma, chronic UTI, MELANY, chronic joint pain, chronic abdominal pain, chronic nausea/vomiting who was brought to emergency department from the [facility] [place] clinic for evaluation of chest pain, abdominal pain, nausea, vomiting and elevated blood pressure. patient was been sick for 2 days with sharp epigastric pain 9/10, nausea, vomiting, diarrhea, unable to hold down food, fluid or medicines. the patient presents infusion clinic for IV iron but was found to have elevated blood pressure and complained of chest pain therefore she was brought to emergency department for evaluation. Patient states that her blood pressure is normally well controlled in his he was in severe pain. Vital signs did reveal an elevated blood pressure of 163/109. Abdominal exam revealed moderate to severe epigastric tenderness otherwise was unremarkable. Differential diagnosis: Includes but is not limited to Chronic abdominal pain, gastritis, pancreatitis, diverticulitis, electrolyte abnormalities, anemia, Course: 15:03 I ordered Dilaudid 1 mg IV, Zofran 4 mg IV, normal saline x1 L and hydrocortisone 100 mg IV. 16:40 My independent interpretation of the patient's laboratory evaluation is as follows: WBCs normal 5500. Chronic anemia with an H&H of 10.1 and 29.9 with a normal MCV of 84.2. CMP was normal. Troponin was below detectable limits. Quantitative beta-hCG was negative. Lipase was normal. Urinalysis was negative. COVID-19, influenza and RSV were negative. The patient was evaluated by her printed circuit board drafter, Dr. Patino who requested CT scan of the abdomen pelvis with IV contrast to further evaluate her pain. The patient only got minimal relief of her pain with Dilaudid 1 mg IV x2 therefore I ordered a 3rd dose of Dilaudid 2 mg IV. 20:14 the patient continued to have significant pain and she was given a another dose of Dilaudid [address] scan of the abdomen pelvis with IV contrast did not reveal a clear cause for her pain. there was some mild colonic bowel wall thickening but I do not think that this is the cause of her symptoms. I did discuss the patient was presentation and findings with our printed circuit board drafter, Dr. Patino. He recommended that we admit the patient to continue to manage her pain endoscopy to further evaluate her pain. The patient does take a high dose of narcotic medications at home. She was on MS Contin 60 mg b.i.d. and oxycodone 50 mg TID. I did discuss the patient's presentation with the covering hospitalist, Dr. Riley and the patient will be admitted for further management. Admission/Observation Consideration of admission/observation: Escalation of care including admission/observation considered ( yes) Lab Data MDM Lab Attestation statement: I reviewed the patient's lab results. 06/04/24 15:20 06/04/24 15:20 Labs: Lab Results 06/04/24 06/04/24 06/04/24 Range/Units 15:00 15:20 15:21 WBC 5.5 (4.8-10.8) X10*3/uL RBC 3.55 L (4.20-5.50) X10*6/uL Hgb 10.1 L (12.0-16.0) g/dl Hct 29.9 L (37.0-47.0) % MCV 84.2 (80.0-98.0) fL MCH 28.5 (27.0-33.0) pg MCHC 33.8 (31.0-35.0) g/dl RDW 17.0 H (11.0-16.0) % Plt Count 289 D (160-400) X10*3/uL MPV 9.1 L (9.4-12.3) fL Immature Gran % (Auto) 0.2 (0.0-0.4) % Neut % (Auto) 61.2 (45-73) % Lymph % (Auto) 31.1 (20-40) % [place] % (Auto) 4.8 (2-11) % Eos % (Auto) 2.2 (0-4) % Baso % (Auto) 0.5 (0-2) % Lymph # (Auto) 1.7 (1.2-4.9) X10*3/uL [place] # (Auto) 0.3 (0.1-1.2) X10*3/uL Eos # (Auto) 0.1 (0.0-0.4) X10*3/uL Baso # (Auto) 0.0 (0.0-0.2) X10*3/uL Abs Immat Gran (auto) 0.01 (0.00-0.03) X10*3/uL Absolute Neuts (auto) 3.3 (2.0-8.3) x10*3/uL Absolute Nucleated RBC 0.000 (0.0-0.012) X10*3/uL Nucleated RBC % (auto) 0.0 (0.0-0.2) /100WBC Sodium 140 (135-145) mmol/L Potassium 3.8 (3.3-5.1) mmol/L Chloride 111 H (96-108) mmol/L Carbon Dioxide 24 (22-29) mmol/L Anion Gap 9 L (12-20) BUN 8 L (9-16) mg/dL Creatinine 0.70 (0.5-1.4) mg/dL Estim Creat Clear Calc 90.0 Estimated GFR > 60 Random Glucose 108 (60-115) mg/dL Calcium 8.4 (8.4-10.2) mg/dL Magnesium 1.8 (1.6-2.6) mg/dL Total Bilirubin 0.4 (0.0-1.0) mg/dL AST 21 (5-31) U/L ALT 18 (0-31) U/L Alkaline Phosphatase 68 (39-117) U/L Troponin I High Sens < 2.7 (<3.5-17.0) ng/L Total Protein 6.6 (6.5-8.0) g/dL Albumin 3.7 (3.5-5.0) g/dL Lipase 16 (8-78) U/L Beta HCG, Quant < 2 mIU/mL Urine Color Dark Yellow Urine Appearance Clear Urine pH 7.0 (5.0-9.0) Ur Specific [place] 1.015 (1.005-1.025) Urine Protein Negative (Neg-Trace) mg/dL Urine Glucose (UA) Negative (Negative) mg/dL Urine Ketones Negative (Negative) mg/dL Urine Blood Negative (Negative) Urine Nitrite Negative (Negative) Ur Leukocyte Esterase Negative (Negative) Influenza Type A (PCR) NEGATIVE (Negative) Influenza Type B (PCR) NEGATIVE (Negative) RSV RNA Qual (PCR) NEGATIVE (Negative) SARS-CoV-2 RNA (RT-PCR) NEGATIVE (Negative) Independent Interpretation I performed an independent interpretation of an: EKG Interpretation: my independent interpretation patient's 12 EKG done on 06/04/2024 at 14:55 hours is as follows: Normal sinus rhythm with a rate of 74, normal CA interval, QRS duration QTC interval, no ST segment elevation, no ST segment depression, no significant T-wave abnormalities, Q-waves noted in V1 and V2 consistent with old septal infarct Radiology Impression Discussion of test interpretation with radiology: I have reviewed the radiologist's reading. Radiologist Impression: CT abdomen and pelvis with contrast Comparison: CT/CA/SR - CT ABDOMEN WO IV CON - 04/11/24 09:40 EST IMPRESSION: Areas of bowel wall thickening of the transverse colon and sigmoid colon could be due to nondistention. Colitis can not be excluded. Additional findings as above. This document has been electronically signed by: Narendra Bañuelos MD on 06/04/2024 18:34:49 Dictated By: Narendra Bañuelos MD Critical Care Time Critical Care Time Critical Care Time: Yes Total Critical Care Time: 55 Attestation: Critical Care: The patient was critically ill with a high probability of imminent or life threatening deterioration. I spent greater than 30 minutes of discontinuous time evaluating the patient,delivering critical care at the bedside, discussing and evaluating pertinent data with consultants. Critical care time does not include time spent performing separately billable procedures or teaching. Total time spent performing critical care was 55 minutes. Discharge Plan Discharge Clinical Impression: Intractable abdominal pain Prescriptions: No Action Boost High Protein 0.06 gram- 1 kcal/mL liquid 1 ea PO BID-TID Qty: 90 2RF nitrofurantoin monohyd/m-cryst [Macrobid] 100 mg capsule 100 mg PO BID 7 Days Qty: 14 0RF Rx Instructions: must administer with a meal/food albuterol sulfate 2.5 mg /3 mL (0.083 %) solution for nebulization 1 vial inhalation Q6H montelukast 10 mg tablet 1 tab PO DAILY tamsulosin 0.4 mg capsule 0.4 mg PO BEDTIME Qty: 30 3RF fluocinolone 0.01 % cream 1 appl topical BID PRN (Reason: Rash) oxycodone 15 mg tablet 15 mg PO Q8H PRN (Reason: pain) estradiol 0.01 % (0.1 mg/gram) cream 1 g vaginal MOWEFR scopolamine base 1 mg over 3 days patch 3 day 1 patch topical Q3D fluoride (sodium) [Sodium Fluoride 5000 Plus] 1.1 % cream 1 appl PO DAILY quetiapine 50 mg tablet 50 mg PO DAILY Xtampza ER 18 mg cap,sprinkl,ER12hr(DONT CRUSH) 54 mg PO Q12H zolpidem 5 mg tablet 5 mg PO BEDTIME PRN (Reason: Insomnia) pantoprazole 40 mg tablet,delayed release (DR/EC) 40 mg PO BID@0630,1630 thiamine HCl (vitamin B1) 100 mg tablet 100 mg PO DAILY fesoterodine [Toviaz] 4 mg tablet extended release 24 hr 4 mg PO DAILY 30 Days Qty: 30 4RF quetiapine 100 mg tablet 100 mg PO BEDTIME nortriptyline 75 mg capsule 75 mg PO DAILY clonazepam 1 mg tablet 1 mg PO TID albuterol sulfate [Ventolin HFA] 90 mcg/actuation HFA aerosol inhaler 1 inh inhalation Q4H PRN (Reason: Shortness Of Breath) carvedilol 6.25 mg tablet 6.25 mg PO DIRECTED Boost Plus 0.06 gram- 1.5 kcal/mL liquid 1 ea PO TID Qty: 90 3RF sodium,potassium,mag sulfates [Suprep Bowel Prep Kit] 17.5-3.13-1.6 gram recon soln See Rx Instructions PO .COMPLEX Qty: 354 0RF Rx Instructions: DILUTE; drink 1/2 at 6-8 pm and half at 11 PM- 1AM hydrocortisone 5 mg tablet See Rx Instructions PO .COMPLEX Qty: 90 3RF Rx Instructions: 10 mg at 8 AM and 5 mg at 2 pm hydroxyzine pamoate [Vistaril] 25 mg capsule 25 mg PO BEDTIME Qty: 90 3RF Print Language: Yi
--- NOTE | 2024-06-04 14:43 | ECG_ITS ---
Test Reason : CHEST PAIN Blood Pressure : */* mmHG Vent. Rate : 74 BPM Atrial Rate : 74 BPM P-R Int : 198 ms QRS Dur : 70 ms QT Int : 416 ms P-R-T Axes : 68 17 39 degrees QTcB Int : 461 ms Normal sinus rhythm Septal infarct (cited on or before 09-Apr-2024) Abnormal ECG When compared with ECG of 09-Apr-2024 13:06, Questionable change in initial forces of Anteroseptal leads Referred By: Yasmany Juan Electronically Signed By: AMILCAR TAFOYA MD
[2024-06-04] MEDS: ondansetron HCL 4 MG/2 ML VIAL IVPUSH (14:51)
[2024-06-04] MEDS: HYDROmorphone HCl 1 MG/ML SYRINGE IVPUSH ×3 (14:51→22:22)
[2024-06-04] MEDS: 0.9 % Sodium Chloride 1,000 ML 999 ML IV (14:51)
[2024-06-04] MEDS: Hydrocortisone Sod Succ/PF 100 MG VIAL IVPUSH (14:52)
[2024-06-04 15:14] LABS: Appearance Urine Clear; Color Urine Dark Yellow; Glucose Urine UA Negative (Negative); Leukocyte Esterase Urine Negative (Negative); Nitrite Urine Negative (Negative); Specific Gravity - Urine 1.015 (1.005-1.025); Urine Blood Negative (Negative); Urine Ketones Negative (Negative); Urine Protein Negative (Neg-Trace)
[2024-06-04 15:25] LABS: MANUAL DIFF FLAG NO
[2024-06-04 15:27] LABS: Basophils Percent Auto 0.5 % (0-2); Eosinophils Absolute Auto 0.1 X10*3/uL (0.0-0.4); Eosinophils Percent Auto 2.2 % (0-4); Hematocrit 29.9 % (37.0-47.0); Hemoglobin 10.1 g/dl (12.0-16.0); Imm Gran Abs Auto 0.01 X10*3/uL (0.00-0.03); Imm Gran Pct Auto 0.2 % (0.0-0.4); Lymphocytes Absolute Auto 1.7 X10*3/uL (1.2-4.9); Lymphocytes Percent Auto 31.1 % (20-40); Mean Corpuscular HGB Conc 33.8 g/dl (31.0-35.0); Mean Corpuscular Hemoglobin 28.5 pg (27.0-33.0); Mean Corpuscular Volume 84.2 fL (80.0-98.0); Mean Platelet Volume 9.1 fL (9.4-12.3); Monocytes Absolute Auto 0.3 X10*3/uL (0.1-1.2); Monocytes Percent Auto 4.8 % (2-11); Neutrophils Absolute Auto 3.3 x10*3/uL (2.0-8.3); Neutrophils Percent Auto 61.2 % (45-73); Platelet Count 289 X10*3/uL (160-400); Red Blood Count 3.55 X10*6/uL (4.20-5.50); White Blood Count 5.5 X10*3/uL (4.8-10.8)
[2024-06-04 15:49] LABS: Alanine Aminotransferase 18 U/L (0-31); Albumin Level 3.7 g/dL (3.5-5.0); Anion Gap 9 (12-20); Aspartate Amino Transferase 21 U/L (5-31); Bilirubin Total 0.4 mg/dL (0.0-1.0); Blood Urea Nitrogen 8 mg/dL (9-16); Calcium 8.4 mg/dL (8.4-10.2); Carbon Dioxide 24 mmol/L (22-29); Chloride 111 mmol/L (96-108); Estimated Glomerular Filt Rate > 60; Glucose Random 108 mg/dL (60-115); Lipase 16 U/L (8-78); Magnesium 1.8 mg/dL (1.6-2.6); Potassium 3.8 mmol/L (3.3-5.1); Sodium 140 mmol/L (135-145); Total Protein 6.6 g/dL (6.5-8.0)
[2024-06-04 15:54] LABS: HCG Quantitative < 2 mIU/mL; Troponin-I High Sensitivity < 2.7 ng/L (<3.5-17.0)
[2024-06-04 15:57] LABS: Alkaline Phosphatase 68 U/L (39-117)
[2024-06-04 16:00] VITALS: BP 170/111; PULSE 71; RESP 18; O2SAT 96
[2024-06-04 16:07] LABS: Influenza A PCR NEGATIVE (Negative); Influenza B PCR NEGATIVE (Negative); Resp Syncy Virus RNA Qual PCR NEGATIVE (Negative); SARS COV2 PCR INHOUSE NEGATIVE (Negative)
[2024-06-04] MEDS: HYDROmorphone HCl 2 MG/ML VIAL IVPUSH ×2 (16:34→20:37)
--- NOTE | 2024-06-04 17:04 | PC.NURSE ---
22 g placed in left forearm for CT scan, medicated per mar with improvement in pain
[2024-06-04] MEDS: iohexoL 350 MG/ML 100 ML INFUS..BTL IV (17:57)
[2024-06-04 18:09] VITALS: BP 158/111; PULSE 88; RESP 18; O2SAT 97
--- NOTE | 2024-06-04 20:39 | PC.NURSE ---
Pt medicated per anton PA with pt Plan of care ongoing
--- NOTE | 2024-06-04 21:18 | PM.IMHP ---
History of Present Illness Date of Service: 06/04/24 Attending physician on admission: Cely Rojas Chief Complaint: HTN Patient is a 48-year-old female with a complex medical history significant for QT prolongation, multiple bariatric surgeries including a slipped lap band, gastric sleeve and gastric bypass, adrenal insufficiency on hydrocortisone, hiatal hernia, hypertension managed by Dr. Purdy on carvedilol, ?new diagnosis Dany's (per pt but not seen in endocrine note), nonischemic cardiomyopathy with EF of 50%, asthma unspecified, chronic UTIs versus interstitial cystitis, chronic joint pain, chronic abdominal pain, chronic nausea and vomiting, who presented to the ED due to hypertension and chest pain while receiving IV iron at the infusion clinic. It was reported that the patient's blood pressure was up to 260/190, her highest blood pressure here was 170/111. She reported to the ED provider that she has been sick for the past 2 days and has had sharp epigastric pain rating it a 9/10 and has been unable to tolerate much by mouth due to nausea, vomiting and diarrhea. When questioned about this by myself she reported that all of this is chronic and has not been any worse than her baseline. She denies any hematemesis or melena. No recent sick contacts. She is no longer experiencing chest pain however her blood pressure remains elevated which is very concerning for her. She reports that she was told by Dr. Murillo that she should not take any additional blood pressure medication as her blood pressure is elevated related to her pain. Review of Systems Constitutional: Constitutional: Reports body ache(s), Denies chills, Reports fatigue and Denies fever(s) Eyes: Eyes: Denies change in vision and Denies photophobia ENT: Denies nasal congestion, Denies nasal discharge, Denies nasal trauma and Denies sore throat Cardiovascular: Cardiovascular: Reports chest pain, Denies rapid heart rate, Denies leg edema, Denies lightheadedness and Denies dyspnea Respiratory: Respiratory: Denies chest congestion, Denies cough, Denies dyspnea and Denies wheezing Gastrointestinal: Gastrointestinal: Denies melena, Denies hematochezia, Denies coffee ground emesis, Reports diarrhea, Reports nausea, Reports vomiting and Denies hematemesis Genitourinary: Genitourinary: Reports dysuria (chronic) Musculoskeletal: Musculoskeletal: Reports myalgias Integumentary/Breasts: Skin/Breast: Denies rash Neurologic: Denies confusion Psychiatric: Psychiatric: Denies confusion Endocrine: Endocrine: Reports fatigue Hematologic/Lymphatic: Hematologic/Lymphatic: Denies easy bleeding and Denies easy bruising Allergic/Immunologic: Allergic/Immunologic: Denies wheezing [facility] Medical History Multinodular goiter HTN (hypertension) Decreased oral intake Takotsubo cardiomyopathy Burn injury Arthritis Low back pain Elevated cholesterol SOB (shortness of breath) Asthma Numbness Mood disorder IBS (irritable bowel syndrome) OAB (overactive bladder) Sleep apnea Hypersomnia Anxiety Functional capacity: uses cane/walker Family History Father Hx of colon cancer, stage IV Mother Family history of high blood pressure Surgical History Hx of gastric bypass Hx of total knee replacement Hx of knee surgery Hx of hernia repair History of cystoscopy Hx of laparoscopic gastric banding Hx of hysterectomy History of H/O gastric bypass Hx of endoscopy History of colonoscopy Social History Household Members: Children Household Members Other:: My son Housing: Apartment Are you a primary women's health care nurse practitioner to a significant other at home: No Do you presently have visiting nurse or other home services: Yes (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) Alcohol intake: never Comment: previously medicated Patient Tobacco Use Status: Never used Tobacco Smoked in Last 30 Days: No e-Cigarette/Vaping Use: Never Used Second Hand Smoke Exposure: No Use of substances other than those prescribed or required for medical reasons: Yes Substance Use Type: Marijuana Advance Directives: Yes Advance Directives Information Provided: Yes Advance Directives on File: No service: No Narrative: No smoking, alcohol or drug use Meds Allergies Allergy/AdvReac Type Severity Reaction Status Date / Time sertraline [From ZOLOFT] Allergy Intermediate prolonged Verified 06/04/24 14:37 QT interval Sulfa (Sulfonamide Allergy Intermediate RASH Verified 06/04/24 14:37 Antibiotics) [SULFA (SULFONAMIDE ANTIBIOTICS)] haloperidol [From Haldol] Allergy Mild unknown Verified 06/04/24 14:37 morphine [MORPHINE] Allergy Mild Rash Verified 06/04/24 14:37 NSAIDS (Non-Steroidal AdvReac Intermediate STOMACH Verified 06/04/24 14:37 Anti-Inflamma UPSET [NSAIDS (NON-STEROIDAL ANTI-INFLAMMA] fentanyl patch Allergy Severe Unresponsiv Uncoded 06/04/24 14:37 e Active Medications: Current Medications Acetaminophen (Acetaminophen 325 Mg Tablet) 650 mg PO Q6H PRN PRN Reason: Pain, Mild 1-3,fever,headache Calcium Carbonate (Calcium Carbonate 750 Mg Tab.Chew) 750 mg PO Q4H PRN PRN Reason: Heartburn Hydromorphone HCl (Hydromorphone Hcl 1 Mg/Ml Syringe) 1 mg IVPUSH Q4H PRN; Protocol PRN Reason: Pain, Severe (Pain Scale 7-10) Magnesium Hydroxide (Milk Of Magnesia 30 Ml Oral.Susp) 30 ml PO DAILY PRN PRN Reason: Constipation Melatonin (Melatonin 3 Mg Tablet) 6 mg PO BEDTIME PRN PRN Reason: Insomnia Ondansetron HCl (Ondansetron Hcl 4 Mg/2 Ml Vial) 4 mg IVPUSH Q8H PRN PRN Reason: Nausea and Vomiting Sodium Chloride (0.9 % Sodium Chloride Flush 3 Ml Syringe) 3 ml IVFLUSH [facility] Medications ?Medication ?Instructions ?Recorded ?Confirmed ?Last Taken ?Type albuterol sulfate 2.5 mg/3 mL 1 vial inhalation Q6H PRN 10/07/20 06/04/24 04/08/24 History (0.083 %) solution for nebulization Shortness Of Breath Or Wheezing montelukast 10 mg tablet 1 tab PO DAILY 10/07/20 06/04/24 04/08/24 History zolpidem 5 mg tablet 5 mg PO BEDTIME PRN Insomnia 09/25/21 06/04/24 04/08/24 History albuterol sulfate 90 mcg/actuation 1 inh inhalation Q4H PRN Shortness 11/26/22 06/04/24 04/08/24 History aerosol inhaler (Ventolin HFA) Of Breath pantoprazole 40 mg tablet,delayed 40 mg PO BID@0630,1630 10/14/23 06/04/24 04/08/24 History release clonazepam 1 mg tablet 1 mg PO TID@0800,1600,199904/05/24 06/04/24 04/09/24 History nortriptyline 75 mg capsule 75 mg PO BEDTIME 04/05/24 06/04/24 04/08/24 History quetiapine 100 mg tablet 100 mg PO BEDTIME 04/05/24 06/04/24 04/08/24 History estradiol 0.01% (0.1 mg/gram) 1 g vaginal MOWEFR 04/09/24 06/04/24 04/08/24 History vaginal cream fluocinolone 0.01 % topical cream 1 appl topical BID PRN Rash 04/09/24 06/04/24 04/08/24 History fluoride (sodium) 1.1 % dental 1 appl PO DAILY 04/09/24 06/04/24 04/08/24 History cream (Sodium Fluoride 5000 Plus) oxycodone 15 mg tablet 15 mg PO TID@0800,1600,199904/09/24 06/04/24 04/08/24 History oxycodone myristate 18 mg capsule 18 mg PO BID@0800,199904/09/24 05/25/24 04/08/24 History sprinkle extended release 12hr(DON'T CRUSH) (Xtampza ER) scopolamine base 1 mg over 3 days 1 patch topical Q3D 04/09/24 06/04/24 04/09/24 History transdermal patch carvedilol 12.5 mg tablet 6.25 mg PO BID 06/04/24 06/04/24 Unknown History fluticasone furoate 100 1 inh inhalation DAILY 06/04/24 06/04/24 Unknown History mcg/actuation blister powder for inhalation (Arnuity Ellipta) Physical Exam Vital Signs and Narrative: Vital Signs: Last Vital Signs Pulse 88 06/04/24 18:09 Resp 18 06/04/24 18:09 BP 158/111 H 06/04/24 18:09 Pulse Ox 97 06/04/24 18:09 O2 Del Method Room Air 06/04/24 16:00 BMI result Body Mass Index 29.9 General: AOx3, no acute distress Resp: CTA bilaterally CVS: RRR, +murmur GI: +BS, tenderness throughout but mostly epigastric, no distention Skin: Warm, dry Neuro: Cranial nerves II-XII grossly intact bilaterally. Motor grossly intact bilaterally Extremities: No LE edema Psych: Appropriate affect Const: General: No confusion Orientation/consciousness: No confusion Eyes: Direct Ophthalmoscopy: No photophobia Neuro: General: No confusion Results Labs 06/04/24 15:20 06/04/24 15:20 Labs: Laboratory Results - last 24 hr 06/04/24 06/04/24 06/04/24 15:00 15:20 15:21 MCV 84.2 MCH 28.5 MCHC 33.8 RDW 17.0 H Plt Count 289 D MPV 9.1 L Immature Gran % (Auto) 0.2 Neut % (Auto) 61.2 Lymph % (Auto) 31.1 [place] % (Auto) 4.8 Eos % (Auto) 2.2 Baso % (Auto) 0.5 Lymph # (Auto) 1.7 [place] # (Auto) 0.3 Eos # (Auto) 0.1 Baso # (Auto) 0.0 Abs Immat Gran (auto) 0.01 Absolute Neuts (auto) 3.3 Absolute Nucleated RBC 0.000 Nucleated RBC % (auto) 0.0 Anion Gap 9 L Estim Creat Clear Calc 90.0 Estimated GFR > 60 Random Glucose 108 Calcium 8.4 Magnesium 1.8 Total Bilirubin 0.4 AST 21 ALT 18 Alkaline Phosphatase 68 Total Protein 6.6 Albumin 3.7 Lipase 16 Beta HCG, Quant < 2 Urine Color Dark Yellow Urine Appearance Clear Urine pH 7.0 Ur Specific [place] 1.015 Urine Protein Negative Urine Glucose (UA) Negative Urine Ketones Negative Urine Blood Negative Urine Nitrite Negative Ur Leukocyte Esterase Negative Influenza Type A (PCR) NEGATIVE Influenza Type B (PCR) NEGATIVE RSV RNA Qual (PCR) NEGATIVE SARS-CoV-2 RNA (RT-PCR) NEGATIVE Assessment and Plan (1) Intractable abdominal pain: Status: Acute (2) HTN (hypertension): Qualifiers: Hypertension type: primary hypertension Qualified Code(s): I10 - Essential (primary) hypertension Status: Acute Plan Patient is a 48-year-old female with a complex medical history significant for QT prolongation, multiple bariatric surgeries including a slipped lap band, gastric sleeve and gastric bypass, adrenal insufficiency on hydrocortisone, hiatal hernia, hypertension managed by Dr. Purdy on carvedilol, ?new diagnosis [place]'s (per pt but not seen in endocrine note), nonischemic cardiomyopathy with EF of 50%, asthma unspecified, chronic UTIs versus interstitial cystitis, chronic joint pain, chronic abdominal pain, chronic nausea and vomiting, who presented to the ED due to hypertension and chest pain while receiving IV iron at the infusion clinic. Hypertension secondary to intractable abdominal pain - WBC 5.5, no fever, tachycardia or tachypnea, no infectious etiology - abdominopelvic CT with possible mild colitis in the transverse/sigmoid colon versus nondistention - ED provider discussed case with GI who suggested admission and endoscopy tomorrow - clear liquid diet now, NPO after midnight - patient is on high dose pain medication at home, MS Contin 60 mg b.i.d. and oxycodone 50 mg t.i.d., pain management with diludad for now - nausea and vomiting controlled, QT C 461 now, can take Zofran if needed - monitor CBC and BMP Chronic iron-deficiency anemia - patient receives iron infusions - monitor CBC - no sign of acute GI bleed Adrenal insufficiency - given stress dose of hydrocortisone 100 mg in ED, repeat 100 mg in a.m. Chest pain, resolved - troponin - EKG with NSR, septal infarct cited previously Mild persistent asthma - continue home inhalers/medications Bipolar/mood disorder - continue home meds Full code VTE prophylaxis: Compression, anticoagulant deferred due to endoscopy tomorrow Patient with hypertension secondary to intractable abdominal pain, requiring admission for pain management and gastroenterology evaluation for at least 2 midnights stay. Quality Stroke Does the patient have a stroke diagnosis?: No VTE Prior VTE?: No VTE Risk Level:: Medical - moderate - high VTE Device Contraindication: N/A - Device Ordered VTE Drug Contraindication: Treatment Not Indicated
[2024-06-04 21:29] VITALS: BP 156/99; PULSE 67; RESP 18; O2SAT 98
--- NOTE | 2024-06-04 22:20 | PHA.MEDREC ---
Addendum entered by Olu Mehta 06/04/24 22:31: reviewed Original Note: Pharmacy Consult ? Medication Reconciliation Pharmacy has completed the medication reconciliation. Spoke with patient to confirm medications. She confirmed she cuts her carvedilol in half and takes bid. She confirmed fesoterodine is 4 mg daily. The hydrocortisone is 10 mg @8AM and 5 mg @2PM. When she is sick or in adrenal crisis she takes 20 mg @8AM and 10 mg @2PM x48-72 hours. Her oxycodone is as follows: 3 long acting + 1 short acting @8AM, 1 short acting @4PM, and 3 long acting + 1 short acting @8PM. She is no longer taking spironolactone or quetiapine 50 mg during the day. She reports she took off a scopolamine patch today. She confirmed she still takes montelukast. She reports she had no medications today.
[2024-06-04] MEDS: clonazePAM 1 MG TABLET PO (23:40)
--- NOTE | 2024-06-04 23:45 | PC.NURSE ---
This technical publications writer assumed care at 2300. Pt A&Ox3, reports 8/[address] Rojas at bedside speaking to Pt about PO meds.
[2024-06-04] MEDS: 0.9 % Sodium Chloride Flush 3 ML SYRINGE IVFLUSH (23:46)
[2024-06-05] VITALS (19 sets, daily range): BP systolic 145–189; BP diastolic 62–116; PULSE 72–88; RESP 15–20; TEMP 36.1–37.5; O2SAT 79–100
[2024-06-05] MEDS: Tamsulosin HCL 0.4 MG CAPSULE PO ×2 (01:09→23:34)
[2024-06-05] MEDS: carvediloL 6.25 MG TABLET PO ×3 (01:09→20:04)
[2024-06-05] MEDS: QUEtiapine Fumarate 100 MG TABLET PO ×2 (01:09→23:33)
[2024-06-05] MEDS: HYDROmorphone HCl 1 MG/ML SYRINGE IVPUSH ×6 (02:22→23:34)
--- NOTE | 2024-06-05 03:00 | PC.NURSE ---
Pt ambulated to BR independently with steady gait. Pt medicated per MAY.
[2024-06-05 07:26] LABS: MANUAL DIFF FLAG NO
[2024-06-05 07:30] LABS: Basophils Percent Auto 0.4 % (0-2); Eosinophils Percent Auto 0.1 % (0-4); Hematocrit 31.3 % (37.0-47.0); Hemoglobin 10.8 g/dl (12.0-16.0); Imm Gran Abs Auto 0.02 X10*3/uL (0.00-0.03); Imm Gran Pct Auto 0.3 % (0.0-0.4); Lymphocytes Percent Auto 37.2 % (20-40); Mean Corpuscular HGB Conc 34.5 g/dl (31.0-35.0); Mean Corpuscular Hemoglobin 29.1 pg (27.0-33.0); Mean Corpuscular Volume 84.4 fL (80.0-98.0); Mean Platelet Volume 9.6 fL (9.4-12.3); Monocytes Absolute Auto 0.6 X10*3/uL (0.1-1.2); Monocytes Percent Auto 6.9 % (2-11); Neutrophils Absolute Auto 4.4 x10*3/uL (2.0-8.3); Neutrophils Percent Auto 55.1 % (45-73); Platelet Count 293 X10*3/uL (160-400); Red Blood Count 3.71 X10*6/uL (4.20-5.50); Red Cell Distribution Width 17.1 % (11.0-16.0)
--- NOTE | 2024-06-05 07:45 | PM.GICN ---
History of Present Illness Data of Consult Service Date: 06/05/24 Primary Care Provider: Lisseth Nassar NP HPI Reason for consult: abdominal pain 48-year-old female with hx of multiple bariatric surgeries including a slipped lap band, gastric sleeve and gastric bypass, adrenal insufficiency on hydrocortisone, hiatal hernia, hypertension managed by Dr. Purdy on carvedilol, ?new diagnosis [place]'s (per pt but not seen in endocrine note), nonischemic cardiomyopathy with EF of 50%, asthma unspecified, chronic UTIs versus interstitial cystitis, chronic joint pain who I am seeing for assessment for abdominal pain. Patient noted 2 d of sharp severe 9/10 epigastric pain with radiation to fron of abdomen and no relieiving or exacerbating factors with nausea and non bloody emesis. She also noted diarrhea. she has been feeling fatigued and weak with malaise. flu negative. She denies any hematemesis or melena. No recent sick contacts. Her BP was significantly elevated which she attributed to her pain symptoms. she has been undergoing testing for adrenal insufficency possibly central cause. Review of Systems Review of Systems: Constitutional : , No Fever, No Chills ENT/Mouth : No sore throat, No Rhinorrhea Eyes: No Swelling, No Redness Cardiovascular : No Chest Pain, No SOB, No Edema Respiratory : No Cough, No Sputum, No Wheezing Gastrointestinal : see HPI Genitourinary : NO Dysuria, No Urinary Frequency, No Hematuria, No Urgency Musculoskeletal : + joint pain, + Myalgias, No Joint Swelling Skin : No Skin Lesions, No rash Neuro : No Weakness, No Numbness, No Dizziness, No Headache Psych : No Anxiety/Panic, No Depression Heme/Lymph: No Bruising, No Lymphadenopathy Endocrine : No Polyuria, No Polydipsia All other systems reviewed and are negative. [facility] Past Medical History Medical History Multinodular goiter HTN (hypertension) Decreased oral intake Takotsubo cardiomyopathy Burn injury Arthritis Low back pain Elevated cholesterol SOB (shortness of breath) Asthma Numbness Mood disorder IBS (irritable bowel syndrome) OAB (overactive bladder) Sleep apnea Hypersomnia Anxiety Family History Family History Father Hx of colon cancer, stage IV Mother Family history of high blood pressure Surgical History Surgical History Hx of gastric bypass Hx of total knee replacement Hx of knee surgery Hx of hernia repair History of cystoscopy Hx of laparoscopic gastric banding Hx of hysterectomy History of H/O gastric bypass Hx of endoscopy History of colonoscopy Social History Social History Household Members: Children Household Members Other:: My son Housing: Apartment Are you a primary vocational childcare teacher to a significant other at home: No Do you presently have visiting nurse or other home services: Yes (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 If so, by whom?: No Are you DNR?: No Advance Directives: No Advance Directives Information Provided: No Advance Directives on File: No Nutrition Risks: No Nutritional Risk service: No Meds Allergies Allergy/AdvReac Type Severity Reaction Status Date / Time sertraline [From ZOLOFT] Allergy Intermediate prolonged Verified 06/04/24 14:37 QT interval Sulfa (Sulfonamide Allergy Intermediate RASH Verified 06/04/24 14:37 Antibiotics) [SULFA (SULFONAMIDE ANTIBIOTICS)] haloperidol [From Haldol] Allergy Mild unknown Verified 06/04/24 14:37 morphine [MORPHINE] Allergy Mild Rash Verified 06/04/24 14:37 NSAIDS (Non-Steroidal AdvReac Intermediate STOMACH Verified 06/04/24 14:37 Anti-Inflamma UPSET [NSAIDS (NON-STEROIDAL ANTI-INFLAMMA] fentanyl patch Allergy Severe Unresponsiv Uncoded 06/04/24 14:37 e Active Medications: Current Medications Acetaminophen (Acetaminophen 325 Mg Tablet) 650 mg PO Q6H PRN PRN Reason: Pain, Mild 1-3,fever,headache Calcium Carbonate (Calcium Carbonate 750 Mg Tab.Chew) 750 mg PO Q4H PRN PRN Reason: Heartburn Hydromorphone HCl (Hydromorphone Hcl 1 Mg/Ml Syringe) 1 mg IVPUSH Q4H PRN; Protocol PRN Reason: Pain, Severe (Pain Scale 7-10) Last Admin: 06/05/24 06:17 Dose: 1 mg Magnesium Hydroxide (Milk Of Magnesia 30 Ml Oral.Susp) 30 ml PO DAILY PRN PRN Reason: Constipation Melatonin (Melatonin 3 Mg Tablet) 6 mg PO BEDTIME PRN PRN Reason: Insomnia Ondansetron HCl (Ondansetron Hcl 4 Mg/2 Ml Vial) 4 mg IVPUSH Q8H PRN PRN Reason: Nausea and Vomiting Sodium Chloride (0.9 % Sodium Chloride Flush 3 Ml Syringe) 3 ml [facility] Last Admin: 06/04/24 23:46 Dose: 3 ml Home Medications ?Medication ?Instructions ?Recorded ?Confirmed ?Last Taken ?Type albuterol sulfate 2.5 mg/3 mL 1 vial inhalation Q6H PRN 10/07/20 06/04/24 04/08/24 History (0.083 %) solution for nebulization Shortness Of Breath Or Wheezing montelukast 10 mg tablet 1 tab PO DAILY 10/07/20 06/04/24 04/08/24 History zolpidem 5 mg tablet 5 mg PO BEDTIME PRN Insomnia 09/25/21 06/04/24 04/08/24 History albuterol sulfate 90 mcg/actuation 1 inh inhalation Q4H PRN Shortness 11/26/22 06/04/24 04/08/24 History aerosol inhaler (Ventolin HFA) Of Breath pantoprazole 40 mg tablet,delayed 40 mg PO BID@0630,1630 10/14/23 06/04/24 04/08/24 History release clonazepam 1 mg tablet 1 mg PO TID@0800,1600,2000 04/05/24 06/04/24 04/09/24 History nortriptyline 75 mg capsule 75 mg PO BEDTIME 04/05/24 06/04/24 04/08/24 History quetiapine 100 mg tablet 100 mg PO BEDTIME 04/05/24 06/04/24 04/08/24 History estradiol 0.01% (0.1 mg/gram) 1 g vaginal MOWEFR 04/09/24 06/04/24 04/08/24 History vaginal cream fluocinolone 0.01 % topical cream 1 appl topical BID PRN Rash 04/09/24 06/04/24 04/08/24 History fluoride (sodium) 1.1 % dental 1 appl PO DAILY 04/09/24 06/04/24 04/08/24 History cream (Sodium Fluoride 5000 Plus) oxycodone 15 mg tablet 15 mg PO TID@0800,1599,199904/09/24 06/04/24 04/08/24 History oxycodone myristate 18 mg capsule 54 mg PO BID@0800,199904/09/24 06/04/24 04/08/24 History sprinkle extended release 12hr(DON'T CRUSH) (Xtampza ER) scopolamine base 1 mg over 3 days 1 patch topical Q3D 04/09/24 06/04/24 04/09/24 History transdermal patch carvedilol 12.5 mg tablet 6.25 mg PO BID 06/04/24 06/04/24 Unknown History fluticasone furoate 100 1 inh inhalation DAILY 06/04/24 06/04/24 Unknown History mcg/actuation blister powder for inhalation (Arnuity Ellipta) Physical Exam Vital Signs: Vital Signs: Last Vital Signs Temp 97.9 F 06/05/24 02:23 Pulse 72 06/05/24 06:09 Resp 16 06/05/24 06:09 BP 158/105 H 06/05/24 06:09 Pulse Ox 99 06/05/24 06:09 O2 Del Method Room Air 06/05/24 06:09 BMI result Body Mass Index 29.9 EXAM: GENERAL: The patient is well developed and nontoxic. VITAL SIGNS:see workflow HEENT: Nonicteric sclerae, PERRLA, EOMI. Oropharynx clear. Moist mucous membranes. Conjunctivae appear well perfused. No thyroid mass. CHEST: Chest wall is nontender. HEART: Regular rate and rhythm without murmurs. LUNGS: Clear to auscultation bilaterally. ABDOMEN: Soft, positive bowel sounds, tender epigastrium, no organomegaly.no flank tenderness SKIN: No rash, no excessive bruising, petechiae, or purpura. NEUROLOGIC: Cranial nerves II-XII intact without motor/sensory deficit. Psych: normal affect Results Labs 06/05/24 07:14 06/05/24 07:14 Labs: Short CBC 06/04/24 06/05/24 Range/Units 15:20 07:14 WBC 5.5 8.0 (4.8-10.8) X10*3/uL Hgb 10.1 L 10.8 L (12.0-16.0) g/dl Hct 29.9 L 31.3 L (37.0-47.0) % Plt Count 289 D 293 (160-400) X10*3/uL BMP 06/04/24 15:20 Sodium 140 Potassium 3.8 Chloride 111 H Carbon Dioxide 24 BUN 8 L Creatinine 0.70 Calcium 8.4 Liver Function 06/04/24 Range/Units 15:20 Total Bilirubin 0.4 (0.0-1.0) mg/dL AST 21 (5-31) U/L ALT 18 (0-31) U/L Alkaline Phosphatase 68 (39-117) U/L Albumin 3.7 (3.5-5.0) g/dL Urine 06/04/24 Range/Units 15:00 Urine Color Dark Yellow Urine Appearance Clear Urine pH 7.0 (5.0-9.0) Ur Specific [place] 1.015 (1.005-1.025) Urine Protein Negative (Neg-Trace) mg/dL Urine Glucose (UA) Negative (Negative) mg/dL Imaging CT scan - abdomen: Attestation: I personally reviewed and interpreted this imaging study as follows: (thickened stomach pouch and transverse colon loops) Assessment and Plan (1) Colitis: Status: Acute (2) Intractable abdominal pain: Status: Acute Plan 1/ Abdominal pain possible from non specific colitis/gastritis, given longevity of sx need to r/o crohns or other enteropathy PLAN: 1/ stool pcr, c diff 2/ egd and sigmoid today with bx for further assessment Procedures Date of Service Date of Service: 06/05/24
[2024-06-05 07:50] LABS: Anion Gap 11 (12-20); Blood Urea Nitrogen 7 mg/dL (9-16); Calcium 8.6 mg/dL (8.4-10.2); Carbon Dioxide 25 mmol/L (22-29); Chloride 108 mmol/L (96-108); Estimated Glomerular Filt Rate > 60; Glucose Random 90 mg/dL (60-115); Potassium 3.8 mmol/L (3.3-5.1); Sodium 140 mmol/L (135-145)
--- NOTE | 2024-06-05 08:53 | HO.PM.IMPN ---
Subjective Subjective Date of Service: 06/05/24 Interval History: Pt admitted for hypertensive crisis, is being followed by GI for noted mild colitis with extensive surgical and medical hx to include IBS-C per pt. Pt seen this AM in ED and immediately expressed need for clonazepam, oral narcotics both short and long acting and is somewhat irate as previous provider was rude to her and would not order medications because pt is NPO. Per GI, Dr Zuniga, pt can have po meds with just sips of water. Pt is NPO as GI plans to take her for scope today. Pt has chronic issues with IBS-C on chronic narcotic use. Pt is not on Amtiza. Review of Systems Pt denies vomiting, having intermittent nausea, reports abdominal pain 6/10 currently. Pt is chronically constipated. Pt denies ORTIZ, SOB, Chest pain, lower leg pain. Review of Systems: Yes all other systems are reviewed and are negative Physical Exam Vital Signs: Vital Signs: Last Vital Signs Temp 97.9 F 06/05/24 02:23 Pulse 72 06/05/24 06:09 Resp 16 06/05/24 06:09 BP 158/105 H 06/05/24 06:09 Pulse Ox 99 06/05/24 06:09 O2 Del Method Room Air 06/05/24 06:09 BMI result Body Mass Index 29.9 Alert and orientated X3, able to give good history. Pt heightened with emotional response to not having her usual meds. Neuro: CN II-X11 intact, no deficits, visual acuity intact EYES: PERRLA, EOM intact ENT: hearing intact, no issues with swallowing, uvula midline, lips moist, nares patent no epistaxis Cardiac: S1 S2 RRR, no murmur, no JVD, no edema in Lower ext Pulmonary: lungs clear to ausculation B Abdominal: BS active in all 4 quadrants, some guarding and tenderness with exam lower quadrants. , MSK: strength 5/5 upper and lower extremities : no CVA tenderness no bladder distension Extremities: no edema in lower extremities, PT and DP pulses palpable +2 Psych: mood anxious, judgement and insight good Objective Data Active Medications Acetaminophen (Acetaminophen 325 Mg Tablet) 650 mg PO Q6H PRN PRN Reason: Pain, Mild 1-3,fever,headache Calcium Carbonate (Calcium Carbonate 750 Mg Tab.Chew) 750 mg PO Q4H PRN PRN Reason: Heartburn Carvedilol (Carvedilol 6.25 Mg Tablet) 6.25 mg PO BID [facility]; Protocol Clonazepam (Clonazepam 1 Mg Tablet) 1 mg PO TID@0800,1600,1999 [facility] Clonazepam (Clonazepam 1 Mg Tablet) 1 mg PO ONCE ONE Stop: 06/05/24 08:51 Hydralazine HCl (Hydralazine Hcl 20 Mg/Ml Vial) 10 mg IVPUSH Q4H PRN; Protocol PRN Reason: SBP > 160 Hydromorphone HCl (Hydromorphone Hcl 1 Mg/Ml Syringe) 1 mg IVPUSH Q3H PRN; Protocol PRN Reason: Pain, Severe (Pain Scale 7-10) Magnesium Hydroxide (Milk Of Magnesia 30 Ml Oral.Susp) 30 ml PO DAILY PRN PRN Reason: Constipation Melatonin (Melatonin 3 Mg Tablet) 6 mg PO BEDTIME PRN PRN Reason: Insomnia Ondansetron HCl (Ondansetron Hcl 4 Mg/2 Ml Vial) 4 mg IVPUSH Q8H PRN PRN Reason: Nausea and Vomiting Oxycodone HCl (Oxycodone Hcl Immed Release 15 Mg Tablet) 15 mg PO TID@0800,1600,1999 [facility] Sodium Chloride (0.9 % Sodium Chloride Flush 3 Ml Syringe) [facility] Last Admin: 06/04/24 23:46 Dose: 3 ml Documented By: CELIA Labs 06/05/24 07:14 06/05/24 07:14 Labs: Laboratory Results - last 24 hr 06/04/24 06/04/24 06/04/24 15:00 15:20 15:21 MCV 84.2 MCH 28.5 MCHC 33.8 RDW 17.0 H Plt Count 289 D MPV 9.1 L Immature Gran % (Auto) 0.2 Neut % (Auto) 61.2 Lymph % (Auto) 31.1 [place] % (Auto) 4.8 Eos % (Auto) 2.2 Baso % (Auto) 0.5 Lymph # (Auto) 1.7 [place] # (Auto) 0.3 Eos # (Auto) 0.1 Baso # (Auto) 0.0 Abs Immat Gran (auto) 0.01 Absolute Neuts (auto) 3.3 Absolute Nucleated RBC 0.000 Nucleated RBC % (auto) 0.0 Anion Gap 9 L Estim Creat Clear Calc 90.0 Estimated GFR > 60 Random Glucose 108 Calcium 8.4 Magnesium 1.8 Total Bilirubin 0.4 AST 21 ALT 18 Alkaline Phosphatase 68 Total Protein 6.6 Albumin 3.7 Lipase 16 Beta HCG, Quant < 2 Urine Color Dark Yellow Urine Appearance Clear Urine pH 7.0 Ur Specific [place] 1.015 Urine Protein Negative Urine Glucose (UA) Negative Urine Ketones Negative Urine Blood Negative Urine Nitrite Negative Ur Leukocyte Esterase Negative Influenza Type A (PCR) NEGATIVE Influenza Type B (PCR) NEGATIVE RSV RNA Qual (PCR) NEGATIVE SARS-CoV-2 RNA (RT-PCR) NEGATIVE 06/05/24 07:14 MCV 84.4 MCH 29.1 MCHC 34.5 RDW 17.1 H Plt Count 293 MPV 9.6 Immature Gran % (Auto) 0.3 Neut % (Auto) 55.1 Lymph % (Auto) 37.2 [place] % (Auto) 6.9 Eos % (Auto) 0.1 Baso % (Auto) 0.4 Lymph # (Auto) 3.0 [place] # (Auto) 0.6 Eos # (Auto) 0.0 Baso # (Auto) 0.0 Abs Immat Gran (auto) 0.02 Absolute Neuts (auto) 4.4 Absolute Nucleated RBC 0.000 Nucleated RBC % (auto) 0.0 Anion Gap 11 L Estim Creat Clear Calc 90.0 Estimated GFR > 60 Random Glucose 90 Calcium 8.6 Magnesium Total Bilirubin AST ALT Alkaline Phosphatase Total Protein Albumin Lipase Beta HCG, Quant Urine Color Urine Appearance Urine pH Ur Specific [place] Urine Protein Urine Glucose (UA) Urine Ketones Urine Blood Urine Nitrite Ur Leukocyte Esterase Influenza Type A (PCR) Influenza Type B (PCR) RSV RNA Qual (PCR) SARS-CoV-2 RNA (RT-PCR) Imaging CT scan - abdomen: Radiologist's impression: IMPRESSION: Areas of bowel wall thickening of the transverse colon and sigmoid colon could be due to nondistention. Colitis can not be excluded. Additional findings as above. Assessment and Plan (1) Hypertensive urgency: Status: Acute (2) Intractable abdominal pain: Status: Acute (3) Colitis: Status: Acute Plan Pt admitted for colitis, HTN urgency overnight Pt seen in ED, awaiting GI for procedure, currently NPO. Per GI, pt being allowed to take po medications with sips of water prior to procedure. 1. 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 This medication can cause even higher blood pressures. 2. Colitis with IBS-C GI consulted, plan to take pt for procedure today Pt to receive multiple enemas in ED while awaiting procedure Currently NPO, allowed to take medications listed above per GI Reviewed med Amtiza with pt, she has not been on this in the past. Reports IBS, chronic constipation, on chronic naroctic use. Unclear if pt is a candidate for this medication due to extensive GI HX. Await post procedure plan per GI. Total time managing care of this patient today: 35 minutes. Quality Stroke Does the patient have a stroke diagnosis?: No Reason for No Anti-thrombotic by Day Two: Contraindicated (going for procedure with GI ) VTE Prior VTE?: No VTE Risk Level:: Medical - moderate - high VTE Device Contraindication: N/A - Device Ordered VTE Drug Contraindication: Treatment Not Indicated
[2024-06-05] MEDS: oxyCODONE HCl Immed Release 15 MG TABLET PO ×4 (09:40→23:33)
[2024-06-05] MEDS: clonazePAM 1 MG TABLET PO ×3 (09:40→20:05)
[2024-06-05] MEDS: hydrALAZINE HCl 20 MG/ML VIAL 10 MG IVPUSH ×2 (09:40→16:42)
[2024-06-05] MEDS: 0.9 % Sodium Chloride Flush 3 ML SYRINGE IVFLUSH ×2 (09:41→16:41)
--- NOTE | 2024-06-05 10:27 | MHC.CM.PN ---
PT LIVES WITH SON HAS [facility] AND OWN RIDE HOME DC PLAN HOME NO SERVICES
[2024-06-05] MEDS: Sodium Phosphate,Mono-Dibasic 133 ML ENEMA PR (10:45)
--- NOTE | 2024-06-05 12:28 | PC.NURSE ---
Pt just picked up to be brought to here procedure, pt has had multiple BMs since receiving the enemas at this time has been ambulating to the BR steadily
[2024-06-05] MEDS: Lactated Ringers 1,000 ML 80 ML IVCONT ×2 (12:29→17:20)
--- NOTE | 2024-06-05 13:52 | MHC.SHP ---
Pre-Procedural Eval Section A - 24 Hr Update-Section A only Date of Service: 06/05/24 The patient is an INPATIENT: Yes The patient has been examined within 24 hours of the surgical procedure. The History & Physical has been completed within 30 days and I have reviewed it.: Yes Section B - Complete if H&P > 30 days Chief Complaint: Came from Infusion Center Allergies: Allergies Allergy/AdvReac Type Severity Reaction Status Date / Time sertraline [From ZOLOFT] Allergy Intermediate prolonged Verified 06/04/24 14:37 QT interval Sulfa (Sulfonamide Allergy Intermediate RASH Verified 06/04/24 14:37 Antibiotics) [SULFA (SULFONAMIDE ANTIBIOTICS)] haloperidol [From Haldol] Allergy Mild unknown Verified 06/04/24 14:37 morphine [MORPHINE] Allergy Mild Rash Verified 06/04/24 14:37 NSAIDS (Non-Steroidal AdvReac Intermediate STOMACH Verified 06/04/24 14:37 Anti-Inflamma UPSET [NSAIDS (NON-STEROIDAL ANTI-INFLAMMA] fentanyl patch Allergy Severe Unresponsiv Uncoded 06/04/24 14:37 e Plan I have reviewed the history and physical and performed a pertinent physical examination on my patient. No changes have occurred unless specified. Time Spent With Patient Time: Total time managing care of this patient today ____ minutes.
--- NOTE | 2024-06-05 14:03 | HO.ANESPROP2 ---
[facility] Active Problems Active Problems: All Active Problems Colitis (Acute) Hypertensive urgency (Acute) Intractable abdominal pain (Acute) Multinodular goiter (Acute) Anemia (Acute) HTN (hypertension) (Acute) Urge incontinence of urine (Acute) Low serum cortisol level (Acute) MELANY (acute kidney injury) (Acute) Headache (Acute) Diarrhea (Acute) Marginal ulcer (Acute) Malnutrition (Acute) Chronic UTI (urinary tract infection) (Acute) Lumbar spondylosis (Acute) Right knee pain (Acute) Knee pain (Acute) Visceral abdominal pain (Acute) Constipation (Acute) Therapeutic opioid-induced constipation (OIC) (Acute) Pelvic pain in female (Acute) Nocturia more than twice per night (Acute) Interstitial cystitis (Acute) Dysuria (Acute) Epigastric abdominal pain (Acute) Diarrhea associated with pseudomembranous colitis (Acute) Past Medical History Medical History Multinodular goiter HTN (hypertension) Decreased oral intake Takotsubo cardiomyopathy Burn injury Arthritis Low back pain Elevated cholesterol SOB (shortness of breath) Asthma Numbness Mood disorder IBS (irritable bowel syndrome) OAB (overactive bladder) Sleep apnea Hypersomnia Anxiety Functional capacity: uses cane/walker Family History Family History Father Hx of colon cancer, stage IV Mother Family history of high blood pressure Family history of problems with anesthesia: No Surgical History Surgical History Hx of gastric bypass Hx of total knee replacement Hx of knee surgery Hx of hernia repair History of cystoscopy Hx of laparoscopic gastric banding Hx of hysterectomy History of H/O gastric bypass Hx of endoscopy History of colonoscopy History of Problems with Anesthesia: No Social History Social History Household Members: Children Household Members Other:: My son Housing: Apartment Are you a primary manager care management to a significant other at home: No Do you presently have visiting nurse or other home services: Yes (youngest dtr is strategy lead) Alcohol intake: never Comment: previously medicated Patient Tobacco Use Status: Never used Tobacco Smoked in Last 30 Days: No e-Cigarette/Vaping Use: Never Used Second Hand Smoke Exposure: No Use of substances other than those prescribed or required for medical reasons: No Substance Use Type: Marijuana Have you been hit, kicked, punched, or otherwise hurt by someone within the past year? If so, by whom?: No Are you DNR?: No Advance Directives: No Advance Directives Information Provided: No Advance Directives on File: No Nutrition Risks: No Nutritional Risk service: No Meds Allergies Allergy/AdvReac Type Severity Reaction Status Date / Time sertraline [From ZOLOFT] Allergy Intermediate prolonged Verified 06/04/24 14:37 QT interval Sulfa (Sulfonamide Allergy Intermediate RASH Verified 06/04/24 14:37 Antibiotics) [SULFA (SULFONAMIDE ANTIBIOTICS)] haloperidol [From Haldol] Allergy Mild unknown Verified 06/04/24 14:37 morphine [MORPHINE] Allergy Mild Rash Verified 06/04/24 14:37 NSAIDS (Non-Steroidal AdvReac Intermediate STOMACH Verified 06/04/24 14:37 Anti-Inflamma UPSET [NSAIDS (NON-STEROIDAL ANTI-INFLAMMA] fentanyl patch Allergy Severe Unresponsiv Uncoded 06/04/24 14:37 e Active Medications: Current Medications Acetaminophen (Acetaminophen 325 Mg Tablet) 650 mg PO Q6H PRN PRN Reason: Pain, Mild 1-3,fever,headache Calcium Carbonate (Calcium Carbonate 750 Mg Tab.Chew) 750 mg PO Q4H PRN PRN Reason: Heartburn Carvedilol (Carvedilol 6.25 Mg Tablet) 6.25 mg PO BID [facility]; Protocol Last Admin: 06/05/24 09:39 Dose: 6.25 mg Clonazepam (Clonazepam 1 Mg Tablet) 1 mg PO TID@0800,1600,2000 [facility] Hydralazine HCl (Hydralazine Hcl 20 Mg/Ml Vial) 10 mg IVPUSH Q4H PRN; Protocol PRN Reason: SBP > 160 Last Admin: 06/05/24 09:40 Dose: 10 mg Hydromorphone HCl (Hydromorphone Hcl 1 Mg/Ml Syringe) 1 mg IVPUSH Q3H PRN; Protocol PRN Reason: Pain, Severe (Pain Scale 7-10) Last Admin: 06/05/24 09:41 Dose: 1 mg Lactated Ringer's (Lr) 1,000 mls @ 80 mls/hr IVCONT .[id number] [facility] Last Admin: 06/05/24 12:29 Dose: 80 mls/hr Magnesium Hydroxide (Milk Of Magnesia 30 Ml Oral.Susp) 30 ml PO DAILY PRN PRN Reason: Constipation Melatonin (Melatonin 3 Mg Tablet) 6 mg PO BEDTIME PRN PRN Reason: Insomnia Ondansetron HCl (Ondansetron Hcl 4 Mg/2 Ml Vial) 4 mg IVPUSH Q8H PRN PRN Reason: Nausea and Vomiting Oxycodone HCl (Oxycodone Hcl Immed Release 15 Mg Tablet) 15 mg PO TID@0800,1600,1999 [facility] Last Admin: 06/05/24 09:40 Dose: 15 mg Sodium Biphosphate/Sodium Phosphate (Sodium Phosphate,[place]-Dibasic 133 Ml Enema) 133 ml MI ONCE PRN PRN Reason: Consult order Last Admin: 06/05/24 10:45 Dose: 133 ml Sodium Chloride (0.9 % Sodium Chloride Flush 3 Ml Syringe) 3 ml IVFLUSH QSHIFT [facility] Last Admin: 06/05/24 09:41 Dose: 3 ml Home Medications ?Medication ?Instructions ?Recorded ?Confirmed ?Last Taken ?Type albuterol sulfate 2.5 mg/3 mL 1 vial inhalation Q6H PRN 10/07/20 06/04/24 04/08/24 History (0.083 %) solution for nebulization Shortness Of Breath Or Wheezing montelukast 10 mg tablet 1 tab PO DAILY 10/07/20 06/04/24 04/08/24 History zolpidem 5 mg tablet 5 mg PO BEDTIME PRN Insomnia 09/25/21 06/04/24 04/08/24 History albuterol sulfate 90 mcg/actuation 1 inh inhalation Q4H PRN Shortness 11/26/22 06/04/24 04/08/24 History aerosol inhaler (Ventolin HFA) Of Breath pantoprazole 40 mg tablet,delayed 40 mg PO BID@0630,1630 10/14/23 06/04/24 04/08/24 History release clonazepam 1 mg tablet 1 mg PO TID@0800,1600,2000 04/05/24 06/04/24 04/09/24 History nortriptyline 75 mg capsule 75 mg PO BEDTIME 01/06/04/24 04/08/24 History quetiapine 100 mg tablet 100 mg PO BEDTIME 04/05/24 06/04/24 04/08/24 History estradiol 0.01% (0.1 mg/gram) 1 g vaginal MOWEFR 04/09/24 06/04/24 04/08/24 History vaginal cream fluocinolone 0.01 % topical cream 1 appl topical BID PRN Rash 04/09/24 06/04/24 04/08/24 History fluoride (sodium) 1.1 % dental 1 appl PO DAILY 04/09/24 06/04/24 04/08/24 History cream (Sodium Fluoride 5000 Plus) oxycodone 15 mg tablet 15 mg PO TID@0800,1599,199904/09/24 06/04/24 04/08/24 History oxycodone myristate 18 mg capsule 54 mg PO BID@0800,199904/09/24 06/04/24 04/08/24 History sprinkle extended release 12hr(DON'T CRUSH) (Xtampza ER) scopolamine base 1 mg over 3 days 1 patch topical Q3D 04/09/24 06/04/24 04/09/24 History transdermal patch carvedilol 12.5 mg tablet 6.25 mg PO BID 06/04/24 06/04/24 Unknown History fluticasone furoate 100 1 inh inhalation DAILY 06/04/24 06/04/24 Unknown History mcg/actuation blister powder for inhalation (Arnuity Ellipta) Exam Height,Weight and Vital Signs: Height 5 ft 1 in Weight 71.9 kg Last Vital Signs Temp 99.5 F 06/05/24 12:27 Pulse 76 06/05/24 12:28 Resp 18 06/05/24 12:28 BP 189/101 H 06/05/24 12:28 Pulse Ox 99 06/05/24 12:28 O2 Del Method Room Air 06/05/24 12:28 Pertinent Lab Results Pertinent Lab Results: Laboratory Tests 06/04/24 06/04/24 06/04/24 15:00 15:20 15:21 WBC 5.5 RBC 3.55 L Hgb 10.1 L Hct 29.9 L MCV 84.2 MCH 28.5 MCHC 33.8 RDW 17.0 H Plt Count 289 D MPV 9.1 L Immature Gran % (Auto) 0.2 Neut % (Auto) 61.2 Lymph % (Auto) 31.1 [place] % (Auto) 4.8 Eos % (Auto) 2.2 Baso % (Auto) 0.5 Lymph # (Auto) 1.7 [place] # (Auto) 0.3 Eos # (Auto) 0.1 Baso # (Auto) 0.0 Abs Immat Gran (auto) 0.01 Absolute Neuts (auto) 3.3 Absolute Nucleated RBC 0.000 Nucleated RBC % (auto) 0.0 Sodium 140 Potassium 3.8 Chloride 111 H Carbon Dioxide 24 Anion Gap 9 L BUN 8 L Creatinine 0.70 Estim Creat Clear Calc 90.0 Estimated GFR > 60 Random Glucose 108 Calcium 8.4 Magnesium 1.8 Total Bilirubin 0.4 AST 21 ALT 18 Alkaline Phosphatase 68 Troponin I High Sens < 2.7 Total Protein 6.6 Albumin 3.7 Lipase 16 Beta HCG, Quant < 2 Urine Color Dark Yellow Urine Appearance Clear Urine pH 7.0 Ur Specific [place] 1.015 Urine Protein Negative Urine Glucose (UA) Negative Urine Ketones Negative Urine Blood Negative Urine Nitrite Negative Ur Leukocyte Esterase Negative Influenza Type A (PCR) NEGATIVE Influenza Type B (PCR) NEGATIVE RSV RNA Qual (PCR) NEGATIVE SARS-CoV-2 RNA (RT-PCR) NEGATIVE 06/05/24 07:14 WBC 8.0 RBC 3.71 L Hgb 10.8 L Hct 31.3 L MCV 84.4 MCH 29.1 MCHC 34.5 RDW 17.1 H Plt Count 293 MPV 9.6 Immature Gran % (Auto) 0.3 Neut % (Auto) 55.1 Lymph % (Auto) 37.2 [place] % (Auto) 6.9 Eos % (Auto) 0.1 Baso % (Auto) 0.4 Lymph # (Auto) 3.0 [place] # (Auto) 0.6 Eos # (Auto) 0.0 Baso # (Auto) 0.0 Abs Immat Gran (auto) 0.02 Absolute Neuts (auto) 4.4 Absolute Nucleated RBC 0.000 Nucleated RBC % (auto) 0.0 Sodium 140 Potassium 3.8 Chloride 108 Carbon Dioxide 25 Anion Gap 11 L BUN 7 L Creatinine 0.70 Estim Creat Clear Calc 90.0 Estimated GFR > 60 Random Glucose 90 Calcium 8.6 Magnesium Total Bilirubin AST ALT Alkaline Phosphatase Troponin I High Sens Total Protein Albumin Lipase Beta HCG, Quant Urine Color Urine Appearance Urine pH Ur Specific [place] Urine Protein Urine Glucose (UA) Urine Ketones Urine Blood Urine Nitrite Ur Leukocyte Esterase Influenza Type A (PCR) Influenza Type B (PCR) RSV RNA Qual (PCR) SARS-CoV-2 RNA (RT-PCR) Airway Mallampati Class: III TM Dist: >3cm Neck ROM: Full Assessment and Plan Assessment Anesthesia Assessment: Anesthesia Plan Discussed and Chart Reviewed Final Anesthetic Review Family History of Problems with Anesthesia: No History of Problems with Anesthesia: No NPO: Yes ASA Class: III Final Preanesthetic Review: No Changes in Pt Med Stat, Meds/Allgs Chart Reviewed, Consent Obtained/Reviewed, Anes Risks/Benef Reviewed and DNR Form (If Appl.) Patient Risk: Intermediate Procedure Risk: Low Anesthetic Plan Anesthetic Plan: TIVA Disposition: Standard PACU
--- NOTE | 2024-06-05 14:54 | W.PM.OPN ---
Operative Note Operative Note Date of Service: 06/05/24 Narrative: Operative Information Procedure Description: EGD, sigmoidoscopy Indication: abdominal pain- hx of gastric bypass Anesthesia: MAC FLEXIBLE TRANSORAL UPPER GASTROINTESTINAL ENDOSCOPY AND COLONOSCOPY PROCEDURE NOTE UPPER ENDOSCOPY Consent: Indications for the procedure and potential complications of bleeding, perforation, reaction to medications and missed diagnosis were discussed with the patient and informed consent was obtained. Instrument: Olympus variable stiffness pediatric scope 190L Monitoring: Vital signs and clinical assessment, continuous EKG monitoring, Pulse oximetry, Carbon Dioxide monitoring and blood pressure monitoring were done throughout the procedure. Procedure: The patient was placed in the left lateral decubitis position and pre-procedure medications were administered and a bite block was placed. The endoscope was inserted into the mouth and advanced under direct vision to the third part of duodenum. A careful inspection was made as the upper endoscope was withdrawn including a retroflexed examination of the proximal stomach; Findings and interventions are described below. Findings: Larynx:normal Esophagus: GE junction at 40 cm, diaphragm hiatus at 40 cm, normal mucosa Stomach pouch: Normal mucosa. Biopsies were obtained. jejunum: at the gastric jejunal anastomosis the mucosa was inflammed and edematous, bx were taken Jejuno-jejunal anastomosis- swollen fold with denuded epithelium noted and vigorous contractions, bx taken. Bx also take from the duodenum. Intervention: Biopsies as noted above, sigmoidoscopy Instrument: Colonoscopy Monitoring: Vital signs and clinical assessment, continuous EKG monitoring, Pulse oximetry, Carbon Dioxide monitoring and blood pressure monitoring were done throughout the procedure. Findings: Transverse Colon - mucosa slightly swollen and featureless, bx taken Descending Colon:normal, bx taken Sigmoid Colon: normal, bx taken Rectum: Retroflexion with small internal hemorrhoids, grade I, bx taken There appeared to reduced motility. Anorectum - normal Colon preparation: fair Impression and Post Procedure Diagnosis: Endoscopy Findings: inflammation at gastric jejunal anastomosis and jejuno jejunal anastomosis Sigmoidoscopy Findings: possible colopathy dysmotility Plan: Recommend trial of relistor in case of opioid related abdominal pain and due to dysmotility upper Gi series to r/o jejuno jejunal intussusception carafate BID high dose PPI- open capsule and mix w apple sauce BID may consider Cte in due course to r/o subacute IBD pending bx Above findings were reviewed with the patient and relevant handouts were provided if indicated.
[2024-06-05 16:06] LABS: CDiff Gene PCR NEGATIVE (Negative)
[2024-06-05] MEDS: Acetaminophen 325 MG TABLET 650 MG PO (18:32)
[2024-06-05] MEDS: Zolpidem Tartrate 5 MG TABLET PO (23:33)
[2024-06-06] VITALS (8 sets, daily range): BP systolic 104–186; BP diastolic 57–109; PULSE 70–106; RESP 16–19; TEMP 36.2–37.4; O2SAT 98–100
[2024-06-06] MEDS: ondansetron HCL 4 MG/2 ML VIAL IVPUSH (00:16)
[2024-06-06] MEDS: Acetaminophen 325 MG TABLET 650 MG PO ×2 (02:37→08:22)
[2024-06-06] MEDS: HYDROmorphone HCl 1 MG/ML SYRINGE IVPUSH ×4 (02:38→11:36)
[2024-06-06] MEDS: hydrALAZINE HCl 20 MG/ML VIAL 10 MG IVPUSH (05:34)
[2024-06-06] MEDS: Lactated Ringers 1,000 ML 80 ML IVCONT ×2 (05:34→17:53)
[2024-06-06] MEDS: oxyCODONE HCl Immed Release 15 MG TABLET PO ×3 (07:27→20:01)
[2024-06-06] MEDS: carvediloL 6.25 MG TABLET PO ×2 (07:27→20:01)
[2024-06-06] MEDS: clonazePAM 1 MG TABLET PO ×3 (07:28→19:34)
[2024-06-06] MEDS: Butalb/Acetamin/Caff 50/325/40 TABLET 1 TAB PO ×2 (08:59→15:40)
--- NOTE | 2024-06-06 09:58 | P.PNGI_ITS ---
Subjective Subjective Date of Service: 06/06/24 Interval History: c/o severe headache back of head, no photophobia mild nausea still has abdominal pain tingling in extremities Critical Care Time (minutes): 0 Physical Exam 2 Vital Signs: Vital Signs: Last Vital Signs Temp 97.7 F 06/06/24 07:33 Pulse 80 06/06/24 07:33 Resp 19 06/06/24 07:33 BP 170/109 H 06/06/24 07:33 Pulse Ox 100 06/06/24 07:33 O2 Del Method Room Air 06/06/24 07:33 BMI result Body Mass Index 29.9 EXAM: GENERAL: The patient is well developed and nontoxic. VITAL SIGNS:see workflow HEENT: Nonicteric sclerae, PERRLA, EOMI. Oropharynx clear. Moist mucous membranes. Conjunctivae appear well perfused. No thyroid mass. CHEST: Chest wall is nontender. HEART: Regular rate and rhythm without murmurs. LUNGS: Clear to auscultation bilaterally. ABDOMEN: Soft, positive bowel sounds, tender epigastrium, no organomegaly.no flank tenderness SKIN: No rash, no excessive bruising, petechiae, or purpura. NEUROLOGIC: Cranial nerves II-XII intact without motor/sensory deficit. JULIENNE - good strength in arms Psych: normal affect Objective Data Labs 06/05/24 07:14 06/05/24 07:14 Labs: Laboratory Results - last 24 hr 06/05/24 14:45 C. difficile Tox B Gene NEGATIVE Procedures Date of Service Date of Service: 06/06/24 Progress Note: A&P Assessment and plan (1) Headache: Status: Acute Plan 1/ Abdominal pain possibly from dysmotility, anastomotic inflammation, intussuscpetion 2/ Headache with floaters and tingling, High BP PLAN: 1/ Consider CT imaging of brain r/o raised ICP or PRES, HTN encephalopathy 2/ small bowel follow thru 3/ cont with relistor and PPI, carafate Time Spent With Patient Time: Total time managing care of this patient today ____ minutes. Quality Stroke Does the patient have a stroke diagnosis?: No Reason for No Anti-thrombotic by Day Two: Contraindicated (going for procedure with GI ) VTE Prior VTE?: No VTE Risk Level:: Medical - moderate - high VTE Device Contraindication: N/A - Device Ordered VTE Drug Contraindication: Treatment Not Indicated
[2024-06-06] MEDS: amLODIPine Besylate 2.5 MG TABLET PO (10:27)
--- NOTE | 2024-06-06 12:02 | HO.POSTANES ---
Post Anesthesia Evaluation Post Anesthesia Evaluation Date of Service: 06/06/24 Vital Signs: Vital Signs Temp Pulse Resp BP Pulse Ox O2 Del Method 06/06/24 11:36 99.3 F 97 18 124/94 H 98 Room Air 06/06/24 07:33 97.7 F 80 19 170/109 H 100 Room Air 06/06/24 03:13 97.4 F 70 18 186/96 H 100 Room Air Anesthesia: Monitored Mental Status: Awake Pain Control: Satisfactory Nausea/Vomiting: None Hydration: Adequate Anesthesia-Related Issues: No Anes. Related Issues
--- NOTE | 2024-06-06 14:09 | P.PNIM_ITS ---
Subjective Subjective Date of Service: 06/06/24 Interval History: Pt is a 48-year-old female with past medical history IBS-C, multiple GI surgeries including gastric sleeve, [place], NICM with EF 40%, hypertension, anemia, chronic UTI, lumbar spondylosis, chronic right knee pain, constipation likely secondary to slow transit and opioid use patient is not on Amtiza, admitted for hypertensive urgency while receiving a Venofer infusion in the outpatient setting along with intractable abdominal pain. Patient is hospital day 2 status post intervention with Dr. Porter from GI. No acute findings found. Patient was noted to have a mild colitis and is currently not on antibiotics or antifungal. Patient's main complaint is all-over body pain. Patient does not feel ready to return home today as she is not feeling well but is nonspecific with her symptoms. Patient is undergoing a CT of the head noting headaches that developed earlier this morning. Patient has responded well to Fioricet. Patient has no history of migraines. Goal is to reduce her IV narcotic use of Dilaudid, continue oral pain management. For blood pressure patient was seen by Dr. Murillo and we will continue Coreg 6.25 mg b.i.d. and amlodipine now 2.[address] Murillo wants the spironolactone held. Review of Systems Patient denies current chest pain, shortness of breath at rest or with exertion, nausea, vomiting, lower calf pain. Patient is having headaches mostly in the occipital area currently 2/10 and previously before the Fioricet was a 8/10. Patient denies any visual changes, productive cough, UTI symptoms including dysuria or frequency. Patient states she takes short and long-acting oxycodone which has been confirmed by [facility]. Xtampza is nonformulary. Review of Systems: Yes all other systems are reviewed and are negative Physical Exam 2 Vital Signs: Vital Signs: Last Vital Signs Temp 99.3 F 06/06/24 11:36 Pulse 97 06/06/24 11:36 Resp 18 06/06/24 11:36 BP 124/94 H 06/06/24 11:36 Pulse Ox 98 06/06/24 11:36 O2 Del Method Room Air 06/06/24 11:36 BMI result Body Mass Index 29.9 Alert and orientated X3, able to give good history. Neuro: CN II-X11 intact, no deficits, visual acuity intact CT head pending EYES: PERRLA, EOM intact ENT: hearing intact, no issues with swallowing, uvula midline, lips moist, nares patent no epistaxis Cardiac: S1 S2 RRR, no murmur, no JVD, no edema in Lower ext Pulmonary: lungs clear to ausculation B Abdominal: BS active in all 4 quadrants, no guarding, tenderness, rebounding MSK: strength 5/5 upper and lower extremities : no CVA tenderness no bladder distension Extremities: no edema in lower extremities, PT and DP pulses palpable +2 Psych: mood stable, judgement and insight good Skin: intact, no open wounds Objective Data Active Medications Acetaminophen (Acetaminophen 325 Mg Tablet) 650 mg PO Q6H PRN PRN Reason: Pain, Mild 1-3,fever,headache Last Admin: 06/06/24 08:22 Dose: 650 mg Documented By: ROBYN Acetaminophen/Butalbital/Caffeine (Butalb/Acetamin/Caff 50/325/40 Tablet) 1 tab PO Q4H PRN PRN Reason: Headache Last Admin: 06/06/24 08:59 Dose: 1 tab Documented By: ROBYN Amlodipine Besylate (Amlodipine Besylate 2.5 Mg Tablet) 2.5 mg PO DAILY [facility]; Protocol Last Admin: 06/06/24 10:27 Dose: 2.5 mg Documented By: ROBYN Calcium Carbonate (Calcium Carbonate 750 Mg Tab.Chew) 750 mg PO Q4H PRN PRN Reason: Heartburn Carvedilol (Carvedilol 6.25 Mg Tablet) 6.25 mg PO BID [facility]; Protocol Last Admin: 06/06/24 07:27 Dose: 6.25 mg Documented By: ROBYN Clonazepam (Clonazepam 1 Mg Tablet) 1 mg PO TID@0800,1600,2000 [facility] Last Admin: 06/06/24 07:28 Dose: 1 mg Documented By: ROBYN Hydralazine HCl (Hydralazine Hcl 20 Mg/Ml Vial) 10 mg IVPUSH Q4H PRN; Protocol PRN Reason: SBP > 160 Last Admin: 06/06/24 05:34 Dose: 10 mg Documented By: MARIBELL Comments: Hydromorphone HCl (Hydromorphone Hcl 1 Mg/Ml Syringe) 0.5 mg IVPUSH Q3H PRN; Protocol PRN Reason: Pain, Severe (Pain Scale 7-10) Lactated Ringer's (Lr) 1,000 mls @ 80 mls/hr IVCONT .[id number] [facility] Last Admin: 06/06/24 05:34 Dose: 80 mls/hr Documented By: MARIBELL Magnesium Hydroxide (Milk Of Magnesia 30 Ml Oral.Susp) 30 ml PO DAILY PRN PRN Reason: Constipation Melatonin (Melatonin 3 Mg Tablet) 6 mg PO BEDTIME PRN PRN Reason: Insomnia Naloxone HCl (Naloxone Hcl 0.4 Mg/Ml Vial) 0.04 mg IVPUSH Q5M PRN PRN Reason: Excessive sedation or RR < 8 Non-Formulary Medication (Oxycodone Myristate [Xtampza Er]) 54 mg PO BID@0800,2000 [facility] Omeprazole (Omeprazole 20 Mg Capsule.Dr) 20 mg PO BID@0630,1630 [facility] Ondansetron HCl (Ondansetron Hcl 4 Mg/2 Ml Vial) 4 mg IVPUSH Q8H PRN PRN Reason: Nausea and Vomiting Last Admin: 06/06/24 00:16 Dose: 4 mg Documented By: MARIBELL Oxycodone HCl (Oxycodone Hcl Immed Release 15 Mg Tablet) 15 mg PO TID PRN PRN Reason: Pain, Moderate(Pain Scale 4-6) Quetiapine Fumarate (Quetiapine Fumarate 100 Mg Tablet) 100 mg PO BEDTIME [facility] Sodium Biphosphate/Sodium Phosphate (Sodium Phosphate,[place]-Dibasic 133 Ml Enema) 133 ml [place] ONCE PRN PRN Reason: Consult order Last Admin: 06/05/24 10:45 Dose: 133 ml Documented By: LEILANI Comments: Pt received first one at 1045 and second one at 1120, MAR will not document second admin Sodium Chloride (0.9 % Sodium Chloride Flush 3 Ml Syringe) 3 ml IVFLUSH QSHIFT [facility] Last Admin: 06/06/24 07:25 Dose: Not Given Documented By: ROBYN Non-Admin Reason: IV Running Tamsulosin HCl (Tamsulosin Hcl 0.4 Mg Capsule) 0.4 mg PO BEDTIME [facility] Labs 06/05/24 07:14 06/05/24 07:14 Labs: Laboratory Results - last 24 hr 06/05/24 14:45 C. difficile Tox B Gene NEGATIVE Assessment and Plan (1) Hypertensive urgency: Status: Acute (2) Colitis: Status: Acute (3) Headache: Status: Acute (4) Low serum cortisol level: Status: Acute (5) Right knee pain: Status: Acute Plan Pt admitted for colitis, HTN urgency overnight, acute on chronic pain issues Pt seen on the floor, completed GI work up yesterday. 1. HTN urgency Pt will receive her Coreg, clonazepam (states this helps lower BP) Pt seen by Dr Murillo today, adding Amlodipine 2.5 mg daily, holding the spironolactone. BP 124/94. Ordered PRN hydralazine 10 mg IV Q4H prn for systolic > 160 Pt reported ORTIZ overnight, occipital, responded well to Firoicet. CT head ordered per GI, pending. Pt denies hx of CVA Pt does not believe HTN urgency is a reaction to venofer iron infusion, as she has had these infusions in the past without issue. 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 This medication can cause even higher blood pressures. 2. Colitis with IBS-C Pt completed GI work up, no acute findings Pt does not require ABX, Flagyl for level of colitis (mild) Per GI note pt should be on carafate, relistor(for opiate induced constipation, noted marcotic dependence) and PPI. These medications were ordered. Per GI, pt can DC home on these medications. Pt will need oral form of relistor. This was reviewed with Dr Patino from GI and pt could benefit from trial on this. Stool studies pending, CDIFF negative precautions cancelled 3. ORTIZ, occipital CT scan of head pending Pt responded well to Fioricet and is also hydrating well BP is down to 124/90. 4. Low cortisol levels in the remote past Pt is being worked up for possible derek's disease Hydrocortisone on board home meds Follow up with specialist as an outpatient 5. Chronic all over pain, R knee pain also chronic Pt is currently on IR oxy, long acting substitute ordered. Pt is asking for dilaudid routinely and is focused on continung dilaudid noting she is agreeable to DC in the AM, awaiting CT head reading. Pt able to conversate about use of dilaudid and understands the dose will be tapered in anticipation of DC in AM. Pt will remain inpt overnight, plan to DC tomorrow, awaiting head CT read. Pt is eating, working on pain mgmt concerns. Total time managing care of this patient today: 45 minutes. Quality Stroke Does the patient have a stroke diagnosis?: No Reason for No Anti-thrombotic by Day Two: N/A - Med Ordered (going for procedure with GI ) VTE Prior VTE?: No VTE Risk Level:: Medical - moderate - high VTE Device Contraindication: N/A - Device Ordered VTE Drug Contraindication: Treatment Not Indicated
[2024-06-06] MEDS: HYDROmorphone HCl 1 MG/ML SYRINGE 0.5 MG IVPUSH ×4 (14:33→23:01)
[2024-06-06] MEDS: Omeprazole 20 MG CAPSULE.DR PO (15:40)
[2024-06-06] MEDS: Sucralfate 1 GM TABLET PO (15:40)
--- NOTE | 2024-06-06 18:34 | PM.CNNEP ---
History of Present Illness Reason for Consult Consult date: 06/06/24 Chief Complaint Chief complaint: Came from Infusion Center History of Present Illness Narrative: 48-year-old female with H/O QT prolongation, multiple bariatric surgeries including a slipped lap band, gastric sleeve and gastric bypass, adrenal insufficiency on hydrocortisone, hiatal hernia, hypertension, nonischemic cardiomyopathy with EF of 50%, asthma unspecified, chronic UTIs versus interstitial cystitis, chronic joint pain, chronic abdominal pain, chronic nausea and vomiting, who presented to the ED due to hypertension and chest pain while receiving IV iron at the infusion clinic. It was reported that the patient's blood pressure was up to 260/190, her highest blood pressure here was 170/111. She reported to the ED provider that she has been sick for the past 2 days and has had sharp epigastric pain rating it a 9/10 and has been unable to tolerate much by mouth due to nausea, vomiting and diarrhea. She denies any hematemesis or melena. No recent sick contacts. She is no longer experiencing chest pain however her blood pressure remains elevated which is very concerning for her. She was admitted for further management. Her BP continues to be labile and nephrology was consulted to assist in her clinical care during her current hospital stay Review of Systems Review of Systems Yes all other systems are reviewed and are negative PMFSH Past Medical History Medical History Multinodular goiter HTN (hypertension) Decreased oral intake Takotsubo cardiomyopathy Burn injury Arthritis Low back pain Elevated cholesterol SOB (shortness of breath) Asthma Numbness Mood disorder IBS (irritable bowel syndrome) OAB (overactive bladder) Sleep apnea Hypersomnia Anxiety Family History Family History Father Hx of colon cancer, stage IV Mother Family history of high blood pressure Surgical History Surgical History Hx of gastric bypass Hx of total knee replacement Hx of knee surgery Hx of hernia repair History of cystoscopy Hx of laparoscopic gastric banding Hx of hysterectomy History of H/O gastric bypass Hx of endoscopy History of colonoscopy Social History Social History Household Members: Children Household Members Other:: My son Housing: Apartment Are you a primary nurse healthcare manager to a significant other at home: No Do you presently have visiting nurse or other home services: Yes (youngest dtr is information architect) Alcohol intake: never Comment: previously medicated Patient Tobacco Use Status: Never used Tobacco e-Cigarette/Vaping Use: Never Used Second Hand Smoke Exposure: No Substance Use Type: Marijuana service: No Meds Allergies Allergy/AdvReac Type Severity Reaction Status Date / Time sertraline [From ZOLOFT] Allergy Intermediate prolonged Verified 06/04/24 14:37 QT interval Sulfa (Sulfonamide Allergy Intermediate RASH Verified 06/04/24 14:37 Antibiotics) [SULFA (SULFONAMIDE ANTIBIOTICS)] haloperidol [From Haldol] Allergy Mild unknown Verified 06/04/24 14:37 morphine [MORPHINE] Allergy Mild Rash Verified 06/04/24 14:37 NSAIDS (Non-Steroidal AdvReac Intermediate STOMACH Verified 06/04/24 14:37 Anti-Inflamma UPSET [NSAIDS (NON-STEROIDAL ANTI-INFLAMMA] fentanyl patch Allergy Severe Unresponsiv Uncoded 06/04/24 14:37 e Active Medications: Current Medications Acetaminophen (Acetaminophen 325 Mg Tablet) 650 mg PO Q6H PRN PRN Reason: Pain, Mild 1-3,fever,headache Last Admin: 06/06/24 08:22 Dose: 650 mg Acetaminophen/Butalbital/Caffeine (Butalb/Acetamin/Caff 50/325/40 Tablet) 1 tab PO Q4H PRN PRN Reason: Headache Last Admin: 06/06/24 15:40 Dose: 1 tab Amlodipine Besylate (Amlodipine Besylate 2.5 Mg Tablet) 2.5 mg PO DAILY [facility]; Protocol Last Admin: 06/06/24 10:27 Dose: 2.5 mg Calcium Carbonate (Calcium Carbonate 750 Mg Tab.Chew) 750 mg PO Q4H PRN PRN Reason: Heartburn Carvedilol (Carvedilol 6.25 Mg Tablet) 6.25 mg PO BID [facility]; Protocol Last Admin: 06/06/24 07:27 Dose: 6.25 mg Clonazepam (Clonazepam 1 Mg Tablet) 1 mg PO TID@0800,1600,2000 [facility] Last Admin: 06/06/24 15:10 Dose: 1 mg Enoxaparin Sodium (Enoxaparin Sodium 40 Mg/0.4 Ml Syringe) 40 mg SUBCUT Q24H [facility] Hydralazine HCl (Hydralazine Hcl 20 Mg/Ml Vial) 10 mg IVPUSH Q4H PRN; Protocol PRN Reason: SBP > 160 Last Admin: 06/06/24 05:34 Dose: 10 mg Hydromorphone HCl (Hydromorphone Hcl 1 Mg/Ml Syringe) 0.5 mg IVPUSH Q3H PRN; Protocol PRN Reason: Pain, Severe (Pain Scale 7-10) Last Admin: 06/06/24 17:46 Dose: 0.5 mg Lactated Ringer's (Lr) 1,000 mls @ 80 mls/hr IVCONT .[id number] [facility] Last Admin: 06/06/24 17:53 Dose: 80 mls/hr Magnesium Hydroxide (Milk Of Magnesia 30 Ml Oral.Susp) 30 ml PO DAILY PRN PRN Reason: Constipation Melatonin (Melatonin 3 Mg Tablet) 6 mg PO BEDTIME PRN PRN Reason: Insomnia Methylnaltrexone [place] (Methylnaltrexone [place] 12 Mg/0.6 Ml Syringe) 12 mg SUBCUT DAILY [facility] Naloxone HCl (Naloxone Hcl 0.4 Mg/Ml Vial) 0.04 mg IVPUSH Q5M PRN PRN Reason: Excessive sedation or RR < 8 Non-Formulary Medication (Oxycodone Myristate [Xtampza Er]) 54 mg PO BID@0800,2000 [facility] Omeprazole (Omeprazole 20 Mg Capsule.Dr) 20 mg PO BID@0630,1630 [facility] Last Admin: 06/06/24 15:40 Dose: 20 mg Ondansetron HCl (Ondansetron Hcl 4 Mg/2 Ml Vial) 4 mg IVPUSH Q8H PRN PRN Reason: Nausea and Vomiting Last Admin: 06/06/24 00:16 Dose: 4 mg Oxycodone HCl (Oxycodone Hcl Immed Release 15 Mg Tablet) 15 mg PO TID [facility] Last Admin: 06/06/24 14:33 Dose: 15 mg Quetiapine Fumarate (Quetiapine Fumarate 100 Mg Tablet) 100 mg PO BEDTIME [facility] Sodium Biphosphate/Sodium Phosphate (Sodium Phosphate,[place]-Dibasic 133 Ml Enema) 133 ml [place] ONCE PRN PRN Reason: Consult order Last Admin: 06/05/24 10:45 Dose: 133 ml Sodium Chloride (0.9 % Sodium Chloride Flush 3 Ml Syringe) 3 ml IVFLUSH QSHIFT [facility] Last Admin: 06/06/24 14:36 Dose: Not Given Sucralfate (Sucralfate 1 Gm Tablet) 1 gm PO BIDAC [facility] Last Admin: 06/06/24 15:40 Dose: 1 gm Tamsulosin HCl (Tamsulosin Hcl 0.4 Mg Capsule) 0.4 mg PO BEDTIME [facility] Home Medications ?Medication ?Instructions ?Recorded ?Confirmed ?Last Taken ?Type albuterol sulfate 2.5 mg/3 mL 1 vial inhalation Q6H PRN 10/07/20 06/04/24 04/08/24 History (0.083 %) solution for nebulization Shortness Of Breath Or Wheezing montelukast 10 mg tablet 1 tab PO DAILY 10/07/20 06/04/24 04/08/24 History zolpidem 5 mg tablet 5 mg PO BEDTIME PRN Insomnia 09/25/21 06/04/24 04/08/24 History albuterol sulfate 90 mcg/actuation 1 inh inhalation Q4H PRN Shortness 11/26/22 06/04/24 04/08/24 History aerosol inhaler (Ventolin HFA) Of Breath pantoprazole 40 mg tablet,delayed 40 mg PO BID@0630,1630 10/14/23 06/04/24 04/08/24 History release clonazepam 1 mg tablet 1 mg PO TID@0800,1600,2000 04/05/24 06/04/24 04/09/24 History nortriptyline 75 mg capsule 75 mg PO BEDTIME 04/05/24 06/04/24 04/08/24 History quetiapine 100 mg tablet 100 mg PO BEDTIME 04/05/24 06/04/24 04/08/24 History estradiol 0.01% (0.1 mg/gram) 1 g vaginal MOWEFR 04/09/24 06/04/24 04/08/24 History vaginal cream fluocinolone 0.01 % topical cream 1 appl topical BID PRN Rash 04/09/24 06/04/24 04/08/24 History fluoride (sodium) 1.1 % dental 1 appl PO DAILY 04/09/24 06/04/24 04/08/24 History cream (Sodium Fluoride 5000 Plus) oxycodone 15 mg tablet 15 mg PO TID@0800,1600,199904/09/24 06/04/24 04/08/24 History oxycodone myristate 18 mg capsule 54 mg PO BID@0800,199904/09/24 06/04/24 04/08/24 History sprinkle extended release 12hr(DON'T CRUSH) (Xtampza ER) scopolamine base 1 mg over 3 days 1 patch topical Q3D 04/09/24 06/04/24 04/09/24 History transdermal patch carvedilol 12.5 mg tablet 6.25 mg PO BID 06/04/24 06/04/24 Unknown History fluticasone furoate 100 1 inh inhalation DAILY 06/04/24 06/04/24 Unknown History mcg/actuation blister powder for inhalation (Arnuity Ellipta) Physical Exam Vital Signs: Last Vital Signs Temp 99.1 F 06/06/24 15:19 Pulse 94 06/06/24 15:19 Resp 19 06/06/24 15:19 BP 148/90 H 06/06/24 15:35 Pulse Ox 99 06/06/24 15:19 O2 Del Method Room Air 06/06/24 15:19 BMI result Body Mass Index 29.9 Const General: comfortable and no acute distress Orientation/consciousness: patient oriented x3 HEENT Head: Yes normocephalic Mouth: Normal oral and palatal mucosa present Eyes EOM: EOMs intact bilaterally Neck Neck: Yes supple Resp Auscultation: clear to auscultation bilaterally Cardio Jugular venous distension: no JVD Rate: regular rate GI Palpation (GI): Soft to palpation Auscultation: normal bowel sounds Neuro General: patient oriented x3 and moves all extremities Extrem General: Yes no pedal edema Results Lab Results 06/05/24 07:14 06/05/24 07:14 Lab results: Chemistry 06/04/24 06/05/24 15:20 07:14 Sodium 140 140 Potassium 3.8 3.8 Carbon Dioxide 24 25 BUN 8 L 7 L Creatinine 0.70 0.70 Calcium 8.4 8.6 Hematology 06/04/24 06/05/24 15:20 07:14 WBC 5.5 8.0 Hgb 10.1 L 10.8 L Plt Count 289 D 293 Urinalysis 06/04/24 15:00 Urine Color Dark Yellow Urine Appearance Clear Urine pH 7.0 Ur Specific [place] 1.015 Urine Protein Negative Urine Glucose (UA) Negative Urine Ketones Negative Urine Blood Negative Urine Nitrite Negative Ur Leukocyte Esterase Negative Assessment and Plan (1) Hypertensive urgency: Status: Acute Plan Her renal functions are at baseline now. Her last renal ultrasound was normal. She is not known to have blood or protein in the urine. She avoids nonsteroidal anti-inflammatories . I asked her to C/W Carvedilol 6.25 mg bid & started on Amlodipine 2.5 mg daily .Her Spironolactone is currently on hold which can be restarted later, if needed. She had an ECHO/Cardiac MRI in the recent past. Her serum potassium is typically normal. Shall follow up closely Procedures Date of Service Date of Service: 06/06/24
[2024-06-06] MEDS: Tamsulosin HCL 0.4 MG CAPSULE PO (20:01)
[2024-06-06] MEDS: QUEtiapine Fumarate 100 MG TABLET PO (20:02)
[2024-06-06] MEDS: Zolpidem Tartrate 5 MG TABLET PO (23:01)
[2024-06-07] MEDS: Butalb/Acetamin/Caff 50/325/40 TABLET 1 TAB PO ×2 (01:21→08:26)
[2024-06-07] MEDS: HYDROmorphone HCl 1 MG/ML SYRINGE 0.5 MG IVPUSH ×3 (02:10→08:22)
[2024-06-07 02:39] VITALS: BP 121/60; PULSE 83; RESP 18; TEMP 36.8; O2SAT 99
[2024-06-07] MEDS: Calcium Carbonate 750 MG TAB.CHEW PO (02:48)
[2024-06-07] MEDS: HYDROmorphone HCl 0.5 MG/0.5 ML SYRINGE IVPUSH (03:14)
[2024-06-07] MEDS: Omeprazole 20 MG CAPSULE.DR PO (05:17)
[2024-06-07] MEDS: Lactated Ringers 1,000 ML 80 ML IVCONT (05:19)
[2024-06-07 07:53] VITALS: BP 150/94; PULSE 80; RESP 18; TEMP 36.8; O2SAT 99
--- NOTE | 2024-06-07 08:10 | P.DS_ITS ---
DS: Providers Provider Date of Service: 06/07/24 Date of admission: 06/04/24 20:26 Date of discharge: 06/07/24 Primary care physician: Lisseth Nassar NP Consults: 06/04/24 20:26 Consult to Gastroenterology Routine Consulting Provider: Sivan Patino Reason for consultation: abd pain, unable to tolerate po 06/06/24 09:06 Consult to Nephrology Routine Consulting Provider: Serge Murillo Reason for consultation: uncontroled hypertension Has provider been notified: No Attending physician on discharge: [facility] Discharging clinician: Carissa Quesada DS: Diagnosis Discharge Diagnosis (1) Hypertensive urgency: Status: Acute DS: Summary Hospital Course Hospital Course: Patient admitted for hypertensive urgency and intractable abdominal pain. Patient was seen by Dr. Patino and she underwent a sigmoid procedure and no acute findings were noted. There was evidence of possible mild colitis on patient's CT scan but patient did not require oral or IV antibiotics. Patient's main issue was overall body pain and abdominal pain that continued. Patient requesting IV Dilaudid. Patient was started on 1 mg every 4 hours with good effect. Patient did have occipital lobe headaches on hospital day [address] Patino, CT of the head was completed and was negative for any acute findings. Patient's blood pressure was labile and at times still 160 to 170/100. Patient was seen by Dr. Murillo her usual psychiatric np who manages her blood pressure issues in the outpatient setting and added amlodipine 2.5 mg and asked that the spironolactone continue to be held. Patient's blood pressure improved dramatically to 124/80 and headache resolved the addition of Fioricet. Patient was seen by Dr. Patino as follow-up on hospital day 2 and Carafate twice daily along with Movantik 25 mg daily for discharge were added. Patient was educated on the use of Movantik and can cause opioid withdrawal, severe abdominal pain and/or diarrhea. Patient will need to take this medication 1 hour before breakfast or 2 hours after breakfast. Patient instructed to notify provider and/or call 911 for any life-threatening symptoms or concerns. Patient verbalized understanding of the discharge plan and is aware that prescriptions including amlodipine, Carafate and Movantik will be sent to her [facility] pharmacy in [facility]. Patient aware that CT of the head was negative and the CT of the abdomen initially showed mild colitis but after her GI procedure reassurance was provided as there were no acute findings. Patient will continue her usual home medications. Patient did request oral Dilaudid for discharge but this was deferred noting the current narcotics that patient is taking and the fact that khang green is starting Movantik per Dr. Patino. Patient instructed to see her primary within 1 week and her GI provider within 2-3 weeks for follow up. All questions and concerns were addressed prior to discharge. Status at Discharge Cognitive/behavioral status at discharge: Alert and orientated x3 in no apparent distress. Patient calm and cooperative discussing discharge and plan for chronic pain management as well as hypertension. Functional status at discharge: independent ambulation Overall status at discharge: patient is back to baseline Time Attestation Total time managing care of this patient today: 40 mintues. Discharge Coordination Time (in mins): 40 Specific discharge activities: Coordination of care, completion of medical re cord, counseling and ordering medications Quality: Safe Use of Opioids Does Pt have an Active Cancer Diagnosis on the Problem List?: No Quality: Stroke Does the patient have a stroke diagnosis?: No Physical Exam Vital Signs: Vital Signs: Last Vital Signs Temp 98.2 F 06/07/24 07:53 Pulse 80 06/07/24 07:53 Resp 18 06/07/24 07:53 BP 150/94 H 06/07/24 07:53 Pulse Ox 99 06/07/24 07:53 O2 Del Method Room Air 06/07/24 07:53 BMI result Body Mass Index 29.9 Alert and orientated X3, calm, able to discuss discharge plan Neuro: CN II-X11 intact, no deficits, visual acuity intact EYES: PERRLA, EOM intact ENT: hearing intact, no issues with swallowing, uvula midline, lips moist, nares patent no epistaxis Cardiac: S1 S2 RRR, no murmur, no JVD, no edema in Lower ext Pulmonary: lungs clear to auscultation B Abdominal: BS active in all 4 quadrants, no guarding, tenderness, rebounding MSK: strength 5/5 upper and lower extremities : no CVA tenderness no bladder distension Extremities: no edema in lower extremities, PT and DP pulses palpable +2 Psych: mood stable, judgement and insight good Skin: intact, no open wounds DS: Data Data Completed and Pending Completed studies during hospitalization [Text1]: Procedures Excision of Esophagogastric Junction, Via Natural or Artificial Opening Endoscopic, Diagnostic (04/11/24) Excision of Esophagus, Via Natural or Artificial Opening Endoscopic, Diagnostic (04/11/24) Excision of Jejunum, Via Natural or Artificial Opening Endoscopic, Diagnostic (04/11/24) Pending studies at discharge: Pending at discharge 06/05/24 14:20 Surgical [PTH] Routine Imaging CT scan - abdomen: Radiologist's impression: CT HEAD: No acute findings CT Abdomen: IMPRESSION: Areas of bowel wall thickening of the transverse colon and sigmoid colon could be due to nondistention. Colitis can not be excluded. Additional findings as above. Discharge Plan Discharge Anticipated Discharge Date/Time: 06/07/24 08:03 Patient Disposition: Home, Self-Care Discharge Diagnosis: Colitis, Hypertensive urgency Referrals: Lisseth Nassar, [employer]LL[employer]ORATIVE TEACHER [Primary Care Provider] - 1 Week Discharge Medications: New sucralfate 1 gram Tablet 1 g PO BIDAC Qty: 30 0RF amlodipine 2.5 mg Tablet 2.5 mg PO DAILY Qty: 90 0RF Protocol: Hold for SBP< HOLD for SBP < : 90 acetaminophen 325 mg Tablet 650 mg PO Q6H PRN (Reason: Pain, Mild 1-3,Fever,Headache) Qty: 30 0RF Movantik 25 mg tablet 25 mg PO QAM Qty: 30 0RF Rx Instructions: must be taken on empty stomach; no food 1 hr after or 2-3 hrs before dose Continued nitrofurantoin monohyd/m-cryst [Macrobid] 100 mg capsule 100 mg PO BID 7 Days Qty: 14 0RF Rx Instructions: must administer with a meal/food albuterol sulfate 2.5 mg /3 mL (0.083 %) solution for nebulization 1 vial inhalation Q6H PRN (Reason: Shortness Of Breath Or Wheezing) montelukast 10 mg tablet 1 tab PO DAILY carvedilol 12.5 mg tablet 6.25 mg PO BID Arnuity Ellipta 100 mcg/actuation blister with device 1 inh INHALATION DAILY tamsulosin 0.4 mg capsule 0.4 mg PO BEDTIME Qty: 30 3RF fluocinolone 0.01 % cream 1 appl topical BID PRN (Reason: Rash) oxycodone 15 mg tablet 15 mg PO TID@0800,1600,2000 estradiol 0.01 % (0.1 mg/gram) cream 1 g vaginal MOWEFR scopolamine base 1 mg over 3 days patch 3 day 1 patch topical Q3D Patient Comments: 06/04/24: took off today fluoride (sodium) [Sodium Fluoride 5000 Plus] 1.1 % cream 1 appl PO DAILY Xtampza ER 18 mg cap,sprinkl,ER12hr(DONT CRUSH) 54 mg PO BID@0800,1999 zolpidem 5 mg tablet 5 mg PO BEDTIME PRN (Reason: Insomnia) pantoprazole 40 mg tablet,delayed release (DR/EC) 40 mg PO BID@0630,1630 fesoterodine [Toviaz] 4 mg tablet extended release 24 hr 4 mg PO DAILY 30 Days Qty: 30 4RF quetiapine 100 mg tablet 100 mg PO BEDTIME nortriptyline 75 mg capsule 75 mg PO BEDTIME clonazepam 1 mg tablet 1 mg PO TID@0800,1599,1999 albuterol sulfate [Ventolin HFA] 90 mcg/actuation HFA aerosol inhaler 1 inh inhalation Q4H PRN (Reason: Shortness Of Breath) hydrocortisone 5 mg tablet See Rx Instructions PO .COMPLEX Qty: 90 3RF Patient Comments: When sick/adrenal crisis: 20 mg @8AM and 10 mg @2PM x48-72 hours Rx Instructions: 10 mg at 8 AM and 5 mg at 2 pm hydroxyzine pamoate [Vistaril] 25 mg capsule 25 mg PO BEDTIME Qty: 90 3RF Discharge Orders: Discharge Order (Routine); Ordered 06/07/24 Ordered By: Carissa Quesada Diet: Advance to usual diet Activity on Discharge: As tolerated Stand Alone Forms: Patient Portal Discharge page Print Language: Kazakh Activity Restrictions/Additional Instructions: None, continue usual activity Care Plan Goals: Pain controlled Health Concerns: Chronic Pain syndrome Plan of Treatment: CONtinue usual medications in addition to carafate as prescribed F/U GI MD, and PCP in one week Please call to make appts Assessment: See above Patient Instructions: Naloxegol (By mouth)
[2024-06-07] MEDS: Sucralfate 1 GM TABLET PO (08:25)
[2024-06-07] MEDS: clonazePAM 1 MG TABLET PO (08:25)
[2024-06-07] MEDS: carvediloL 6.25 MG TABLET PO (08:26)
[2024-06-07] MEDS: oxyCODONE HCl Immed Release 15 MG TABLET PO (08:26)
[2024-06-07] MEDS: amLODIPine Besylate 2.5 MG TABLET PO (08:27)
--- NOTE | 2024-06-07 09:19 | MHC.CM.PN ---
Patient medically cleared for dc home, will resume [employer] services. Daughter, who is also RECORDAK OPERATOR, will provide transport ~11am. RN aware. Last IMM 06/05.
== END 2024-06-07 11:13 | disposition home or self-care (01) | DRG 392 ==
LOC: HO.ED 15:04 → HO.EDOVER 20:39 → HO.S3 06-05 15:50
PROVIDERS: Internal Medicine Gastroenterology; Admitting Provider Student in an Organized Health Care Education/Training Program; Emergency Provider Emergency Medicine Emergency Medical Services; PCP Nurse Practitioner Family; Visit Provider Nurse Practitioner Family
PROC: 0DJ08ZZ Inspection of Upper Intestinal Tract, Via Natural or Artificial Opening Endoscopic (ICD-10-PCS; CPT 43235; principal; 2024-06-05 14:10)
PROC: 0DJD8ZZ Inspection of Lower Intestinal Tract, Via Natural or Artificial Opening Endoscopic (ICD-10-PCS; CPT 45330; 2024-06-05 14:10)
DX: K52.9 Noninfective gastroenteritis and colitis, unspecified (principal); E27.1 Primary adrenocortical insufficiency; D50.9 Iron deficiency anemia, unspecified; I16.0 Hypertensive urgency; K64.0 First degree hemorrhoids; I10 Essential (primary) hypertension; F31.9 Bipolar disorder, unspecified; J45.30 Mild persistent asthma, uncomplicated; Z20.822 Contact with and (suspected) exposure to COVID-19; Z98.84 Bariatric surgery status; Z79.899 Other long term (current) drug therapy
CPT/HCPCS: 0241U; 36415; 70450; 74177; 80048; 80053; 81003; 83690; 83735; 84484; 84702; 85025; 87493; 87507; 88305; 88342; 93005; 99285; J0360; J1171; J1720; J2003; J2212; J2405; J2704; J7120; Q9967

== ENCOUNTER → 2024-06-04 14:43 | Outpatient (BNV) | payer MEDICARE, MEDICAID, SELFPAY | PROVIDERS: Admitting Provider Student in an Organized Health Care Education/Training Program; Emergency Provider Emergency Medicine Emergency Medical Services; PCP Nurse Practitioner Family; Visit Provider Internal Medicine Cardiovascular Disease | DX: I25.2 Old myocardial infarction (principal) | CPT/HCPCS: 93010 ==

== ENCOUNTER → 2024-06-04 16:27 | Outpatient (BNV) | payer MEDICARE, MEDICAID, SELFPAY | PROVIDERS: Emergency Provider Emergency Medicine Emergency Medical Services; PCP Nurse Practitioner Family; Visit Provider Nuclear Medicine | DX: R10.84 Generalized abdominal pain (principal) | CPT/HCPCS: 74177 ==

== ENCOUNTER 2024-06-04 20:26 | Outpatient (BNV) | payer MEDICARE, MEDICAID, SELFPAY | END 2024-06-06 10:52 | PROVIDERS: Admitting Provider Student in an Organized Health Care Education/Training Program; Emergency Provider Emergency Medicine Emergency Medical Services; PCP Nurse Practitioner Family; Visit Provider Radiology Diagnostic Radiology | DX: I10 Essential (primary) hypertension (principal) | CPT/HCPCS: 70450 ==

== ENCOUNTER → 2024-06-04 20:26 | Outpatient (BNV) | payer MEDICARE, MEDICAID, SELFPAY | PROVIDERS: Admitting Provider Student in an Organized Health Care Education/Training Program; Emergency Provider Emergency Medicine Emergency Medical Services; PCP Nurse Practitioner Family; Visit Provider Internal Medicine Nephrology | DX: I16.0 Hypertensive urgency (principal) | CPT/HCPCS: 99222 ==

== ENCOUNTER → 2024-06-04 20:26 | Outpatient (BNV) | payer MEDICARE, MEDICAID, SELFPAY | PROVIDERS: Admitting Provider Student in an Organized Health Care Education/Training Program; Emergency Provider Emergency Medicine Emergency Medical Services; PCP Nurse Practitioner Family; Visit Provider Internal Medicine Gastroenterology | DX: R51.9 Headache, unspecified (principal) | CPT/HCPCS: 99232 ==

== ENCOUNTER → 2024-06-04 20:26 | Outpatient (BNV) | payer MEDICARE, MEDICAID, SELFPAY | PROVIDERS: Admitting Provider Student in an Organized Health Care Education/Training Program; Emergency Provider Emergency Medicine Emergency Medical Services; PCP Nurse Practitioner Family; Visit Provider Physician Assistant | DX: R10.9 Unspecified abdominal pain (principal); I10 Essential (primary) hypertension | CPT/HCPCS: 99223 ==

== ENCOUNTER 2024-06-18 10:12 | Outpatient (AMB) | payer MEDICARE, MEDICAID, SELFPAY ==
--- NOTE | 2024-06-18 10:13 | MHC.OFFVIS ---
Intake Visit Reasons: ov Intake Note: Eboni presents as a video follow up today. CC: stomach is inflamed and she states that she had a procedure with you and was told she may have a surgery that is needed. Allergies sertraline [From ZOLOFT] Allergy (Intermediate, Verified 06/18/24 10:13) prolonged QT interval Sulfa (Sulfonamide Antibiotics) [SULFA (SULFONAMIDE ANTIBIOTICS)] Allergy (Intermediate, Verified 06/18/24 10:13) RASH haloperidol [From Haldol] Allergy (Mild, Verified 06/18/24 10:13) unknown morphine [MORPHINE] Allergy (Mild, Verified 06/18/24 10:13) Rash NSAIDS (Non-Steroidal Anti-Inflamma [NSAIDS (NON-STEROIDAL ANTI-INFLAMMA] Adverse Reaction (Intermediate, Verified 06/18/24 10:13) STOMACH UPSET fentanyl patch Allergy (Severe, Uncoded 06/18/24 10:13) Unresponsive HPI HPI ov: Details: 48-year-old female with hx of multiple bariatric surgeries including a slipped lap band, gastric sleeve and gastric bypass, adrenal insufficiency on hydrocortisone, hiatal hernia, hypertension managed by Dr. Purdy on carvedilol, ?new diagnosis Mckinley's (per pt but not seen in endocrine note), nonischemic cardiomyopathy with EF of 50%, asthma unspecified, chronic UTIs versus interstitial cystitis, chronic joint pain who I am seeing for f/u RECAP: she has 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 sleep is poor, 4 hrs off and on she is on tramadol, having issues with constipation. once q4 days EGD 03/2018- gastritis also prior hx of kenalog trigger injection, hard to say if helped. she was given linaclotide to help with constipation GES---normal she was having ongoing issues with pain and was optimized on acid suppression with h2, PPI and carafate, was trying to get her movantik she represented 01/2019 to office with c/o worsening epigastric pain, nausea, and poor appetite with weight loss. using linaclotide helping her constipation, on fentanyl patch--goes every few days I offered her admission but she refused but she was dizzy so sent to ED, labs inc LFT, BMP, CBC were neg and CT was unremarkable without any acute pathology EGD then done 02/2019 with bx revealing chronic reflux damage and gastritis, looked like sandy but the stain was neg U/s 03/2019- liver normal, F0 on elastography, ?left kidney stone, Ba swallow 03/2019- patent GEJ, mild reflux pending urine 24 hr tests and metanephrines At f/u visit 05/2019--she was awaiting w/u for interstitial cystitis she was doing well with donantal and compazine capsule endoscopy was done and was neg was advised to try align, IBGARD, stress reduction She had cystoscopy with Dr Rodriguez for her IC she had surgery with removal of adhesions at [facility] 05/2021 and hiatal hernia repair she had ongoing problems and had EGD with gastritis, and bile reflux in stomach she is on trileptel for bipolar I ordered KUB with moderate stool burden Increased movantik to 25 mg but stopped it due to too much diarrhea she had kenalog injection to area of pain in abdomen, which she feels may have helped a little She had EGD/colon with Dr Allan 04/05 Marginal ulcer noted at [facility] colon was tortuous hyperplastic polyp removed with random colo bx with crypt distortion REPT EGD: 08/24/22 Hx of gastric bypass Findings: Larynx:normal Esophagus: GE junction at 37 cm, diaphragm hiatus at 37 cm, no varices or esophagitis. Stomach pouch: x 4 retained sola noted with mild superficial inflammation and erosions noted around 3 of these. These were removed with cold forceps and bx taken from the anastomotic site and the pouch. Overall appearances appeared improved as compared to before. Jejunum: Normal Intervention: Biopsies as noted above, removal of retained sola Impression/Findings: retained sola mild inflammation around anastomosis PLAN: cont with PPI I again scoped her for reassessment 02/15/23-- improved compared to before with chronic active inflammation at anastomosis i added ursodiol She had in patient admission, egd and sigmoid findings: inflammation at gastric jejunal anastomosis and jejuno jejunal anastomosis Sigmoidoscopy Findings: possible colopathy dysmotility INTERIM: she is improving managing PO diet no nausea waiting for MRI brain Assessments 1/ attacks of abdominal pain, diarrhea, nausea, uncertain etiology, possibly from cortisol insuff, now being replaced but feels it is not helping--she may also have jejuno jejunal instussussception, narcotic bowel syndrome PLAN: 1/ cont to take open capsule esomeprazole and cont carafate 2/ cont levsin 3/ f/u endocrinology 4/ small bowel follow thru 5/ trial of mesalamine and see if helps PFSH Medical History Low serum cortisol level Multinodular goiter HTN (hypertension) Decreased oral intake Takotsubo cardiomyopathy Burn injury Arthritis Low back pain Elevated cholesterol SOB (shortness of breath) Asthma Numbness Mood disorder IBS (irritable bowel syndrome) OAB (overactive bladder) Sleep apnea Hypersomnia Anxiety Surgical History Hx of gastric bypass Hx of total knee replacement Hx of knee surgery Hx of hernia repair History of cystoscopy Hx of laparoscopic gastric banding Hx of hysterectomy History of H/O gastric bypass Hx of endoscopy History of colonoscopy Family History Father Hx of colon cancer, stage IV Mother Family history of high blood pressure Social History Household Members: Children Household Members Other:: My son Housing: Apartment Are you a primary care professionals to a significant other at home: No Do you presently have visiting nurse or other home services: Yes (youngest dtr is government affairs specialist) Alcohol intake: never Comment: previously medicated Patient Tobacco Use Status: Never used Tobacco e-Cigarette/Vaping Use: Never Used Second Hand Smoke Exposure: No Substance Use Type: Marijuana service: No Telehealth Telehealth Telehealth Platform: Telephone Location of provider rendering services: practice address Location of patient: address on file Patient Identification confirmed using: Name, : Yes Telehealth method: voice only Patient verbally consented to treatment: Yes Patient verbally consented to billing insurance company: Yes Patient informed of any privacy concerns related to visit: Yes Minutes spent on Phone/Video with Pt.: 7 Assessment & Plan Assessment & Plan (1) Colitis: Code(s): K52.9 - Noninfective gastroenteritis and colitis, unspecified Category: Medical Plan: as above Medications: New mesalamine ER (Apriso) open capsules and mix with apple sauce 1.5 grams (4 x 0.375 gram) PO QAM 120 caps 1RF Coding Level of Care Code Tele Est Pt Level 3 (65543) Diagnoses Colitis K52.9
--- OUTSIDE RECORDS SUMMARY | 2024-06-18 11:54 | XMS_ITS | Clinical Summary ---
Author Organization [facility] Address [address] [place] [address] Care Team Providers Care Pain Management Physician Name Role Phone Unavailable Primary Care Provider [...]
--- OUTSIDE RECORDS SUMMARY | 2024-06-18 11:54 | XMS_ITS | Clinical Summary ---
Author Organization [facility] Address [address] [place] [address] Phone Care Team Providers Care Branch Associate Name Role Phone Lisseth Nassar AQUATIC PERFORMER Primary Care Provider [phone] Allergies Active Allergy Reactions Criticality Noted Date Comments Fentanyl Other,Fainting 02/09/2022 Haloperidol Anxiety Low 02/15/2022 Other Reaction(s): Feeling Irritable Morphine Low 08/12/2020 Redness around the site Nsaids (Non-Steroidal Anti-Inflammatory Drug) Other 09/08/2020 GI bleeding Sertraline Other 09/08/2020 Other Reaction(s): QT wave change interferes withQT waves of heart changed my QT interval has a field service engineer changed my QT interval has a field service engineer Sulfa (Sulfonamide Antibiotics) Rash Low 09/08/2020 Sulfamethoxazole-Trimet [...] Encounters Date Type Department Care Team Description 06/03/2024 2:08 PM EDT - 06/03/2024 8:02 PM EDT Emergency [facility] Emergency [address] [place] [phone] Favio Shaffer MD Precordial pain (Primary Dx) Discharge Disposition: Home or Self Care 04/30/2024 7:35 PM EST - 04/30/2024 11:59 PM EST Emergency [facility] Emergency [address] [place] [address] Anemia, unspecified type (Primary Dx) Discharge Disposition: Home or Self Care from Last 3 Months Surgical History Surgery Date Site/Laterality Comments BREAST REDUCTION PROCEDURE: DC BREAST REDUCTION LAPAROSCOPIC GASTRIC BANDING PROCEDURE: LAP [...] disease) Low serum cortisol level 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) GI bleed Family History [...] Sign Reading Time Taken Comments Blood Pressure 173/108 06/03/2024 6:24 PM EDT Pulse 75 06/03/2024 6:24 PM EDT Temperature 37.1 ??C (98.7 ??F) 06/03/2024 6:24 PM ED T Respiratory Rate 16 06/03/2024 6:24 PM EDT Oxygen Saturation 100% 06/03/2024 6:24 PM EDT Inhaled Oxygen Concentration - - Weight 72.6 kg (160 lb) 06/03/2024 2:49 PM EDT Height 165.1 cm (5' 5 ) 06/03/2024 2:49 PM EDT Body Mass Index 26.63 06/03/2024 2:49 PM EDT Plan of Treatment Health Maintenance Due Date [...] history exists Hypertension/CHF/CAD Annual BMP Blood Test 06/03/2025 06/03/2024, 04/30/2024, 03/18/2024, Additional history exists DTaP,Tdap,and Td Vaccines (3 [...] this topic Medical Devices Implanted Type Area Skin Lifter Bacon Device Identifier Shelf Expiration Date Model / Serial / Lot Arthroscopy Implants Sports Med Arthroscopy Implants Sports Med Left: Knee Description:LEFT KNEE REPLAC EMENT Procedures Procedure Name Priority Date/Time Associated Diagnosis Comments ECG ANNOTATED 06/04/2024 ECG 12-LEAD STAT 06/03/2024 5:27 PM EDT XR CHEST 2 VIEWS STAT 06/03/2024 4:32 PM EDT TROPONIN I HIGH SENSITIVITY STAT 06/03/2024 3:48 PM EDT ECG 12-LEAD STAT 06/03/2024 2:57 PM EDT CBC WITH AUTO DIFFERENTIAL STAT 06/03/2024 2:48 PM EDT B-TYPE NATRIURETIC PEPTIDE STAT 06/03/2024 2:48 PM EDT MAGNESIUM STAT 06/03/2024 2:48 PM EDT LIPASE STAT 06/03/2024 2:48 PM EDT COMPREHENSIVE METABOLIC PANEL STAT 06/03/2024 2:48 PM EDT CBC AND DIFFERENTIAL STAT 06/03/2024 2:48 PM EDT TROPONIN I HIGH SENSITIVITY STAT 06/03/2024 2:48 PM EDT ECG ANNOTATED 05/04/2024 ECG OUTSIDE 05/02/2024 M[facility]OY URINE CULTURE TUBE STAT 04/30/2024 10:34 [...] HIGH SENSITIVITY STAT 04/30/2024 8:00 PM EST from Last 3 Months Results * ECG-Annotated (06/04/2024) Only the most recent of2 resultswithin the time period is included. us Provider Onbase MD ECG ORDERABLES Final Result * ECG 12 lead (06/03/2024 5:27 PM EDT) Only the most recent of3 resultswithin the time period is included. Ventricular Rate ECG 75 BPM GEMUSE Atrial Rate 75 BPM GEMUSE P-R Interval 196 ms GEMUSE QRS Duration 72 ms GEMUSE Q-T Interval 420 ms GEMUSE QTc 469 ms GEMUSE P Wave [place] 57 degrees GEMUSE R [place] 11 degrees GEMUSE T [place] 36 degrees GEMUSE ECG Interpretation Normal sinus rhythm Possible Left atrial enlargement Borderline ECG When compared with ECG of 03-JUN-2024 14:57, No significant change was found Confirmed by MD [facility] ([id number]) on 06/05/2024 1:43:19 AM GEMUSE 06/03/2024 5:27 PM EDT 06/05/2024 1:43 AM EDT us Anil Louis MD ECG ORDERABLES Final Res ult GEMUSE * XR Chest 2 Views (06/03/2024 4:32 PM EDT) Only the most recent of2 resultswithin the time period is included. Anatomical Region Laterality Modality Body Radiographic Vicenta ging 06/04/2024 8:41 AM EDT Impressions 06/04/2024 8:42 AM EDT Impression: No active pulmonary process is identified. Telerad JUAN RAMON ([id number]) -------- FINAL REPORT -------- Dictated By: Patti Mclaughlin Dictated Date: 06/04/2024 08:41 ET Assigned Physician: Patti Mclaughlin Reviewed and Electronically Signed By: Patti Mclaughlin Signed Date: 06/04/2024 08:42 ET Workstation ID: [id number] Transcribed By: Self Edit Transcribed Date: 06/04/2024 08:41 ET Narrative 06/04/2024 8:42 AM EDT History: Chest pain. Comparison: 04/30/24 Findings: PA and lateral views. The cardiomediastinal silhouette, hilar contours and pulmonary vascularity are within normal limits. The lungs are clear. The costophrenic angles are sharp. Artifact from the patient's hair projects over the lung apices. Surgical clips and chain suture noted in the left upper quadrant of the abdomen. Procedure Note Patti Mclaughlin MD - 06/04/2024 History: Chest pain. Comparison: 04/30/24 Findings: PA and lateral views. The cardiomediastinal silhouette, hilar contours andpulmonary vascularity are within normal limits. The lungs are clear. Thecostophrenic angles are sharp. Artifact from the patient's hair projects over the lung apices. Surgical clips and chain suture noted in the left upper quadrant of theabdomen. IMPRESSION: Impression: No active pulmonary process is identified. Telerad JUAN RAMON ([id number]) -------- FINAL REPORT -------- Dictated By: Patti Mclaughlin Dictated Date: 06/04/2024 08:41 ET Assigned Physician: Patti Mclaughlin Reviewed and Electronically Signed By: Patti Mclaughlin Signed Date: 06/04/2024 08:42 ET Workstation ID: [id number] Transcribed By: Self Edit Transcribed Date: 06/04/2024 08:41 ET Anil Louis MD IMG XR PROCEDURES Final R esult * Troponin I high sensitivity (06/03/2024 3:48 PM EDT) Only the most recent of4 resultswithin the time period is included. Pathologist [facility] High Sensitivity Troponin I 3 <=54 ng/L LAB CHEMISTRY METHOD 06/03/2024 4:19 PM EDT [facility] Blood Venous blood specimen / Unknown Venipuncture / Unknown 06/03/2024 3:48 PM EDT 06/03/2024 3:52 PM EDT Narrative [facility] - 06/03/2024 4:19 PM EDT High levels of biotin in samples may falsely decrease hsTroponin values. ??Use caution when interpreting hsTroponin results in patients taking biotin who exhibit renal impairment (eGFR <60) or in patients taking more than 20 mg/day of biotin. us Anil Louis MD LAB BLOOD ORDERABLES Marleny márquez Result [facility] [address] [place] [address], [place] [phone] * (ABNORMAL) CBC auto differential (06/03/2024 2:48 PM EDT) Only the most recent of2 resultswithin the time period is included. [facility] Signature WBC 6.1 4.8 - 10.8 K/mcL LAB HEMETOLOGY METHOD 06/03/2024 3:02 PM [facility] RBC 3.70(L) 3.80 - 4.80 M/mcL LAB HEMETOLOGY [facility] Hemoglobin 10.6(L) 11.5 - 16.0 g/dL LAB HEMETOLOGY METHOD 06/03/2024 3:02 PM [facility] Hematocrit 31.5(L) 35.0 - 47.0 % LAB HEMETOLOGY METHOD 06/03/2024 3:02 PM [facility] MCV 85.8 79.0 - 98.0 FL LAB HEMETOLOGY METHOD 06/03/2024 3[facility] MCH 28.9 27.0 - 32.0 pcg LAB HEMETOLOGY METHOD 06/03/2024 3:02 PM [facility] MCHC 33.7 32.0 - 37.0 g/dL LAB HEMETOLOGY METHOD 06/03/2024 3:02 PM [facility] RDW 17.2(H) 11.0 - 15.0 % LAB HEMETOLOGY METHOD 06/03/2024 3:02 PM [facility] Platelets 302 130 - 400 K/mcL LAB HEMETOLOGY METHOD 06/03/2024 3:02 PM [facility] MPV 9.6 7.0 - 11.0 FL LAB HEMETOLOGY METHOD 06/03/2024 3:02 PM [facility] NRBC 0.0 <1.0 % LAB HEMETOLOGY METHOD 06/03/2024 3:02 PM [facility] NRBC Absolute 0.00 <0.10 K/mcL LAB HEMETOLOGY METHOD 06/03/2024 3:02 PM EDT [facility] Neutrophils Relative 60.9 % LAB HEMETOLOGY METHOD 06/03/2024 3:02 PM [facility] Lymphocytes Relative 31.8 % LAB HEMETOLOGY METHOD 06/03/2024 3:02 PM [facility] Monocytes Relative 6.0 % LAB HEMETOLOGY METHOD 06/03/2024 3:02 PM [facility] Eosinophils Relative 0.3 % LAB HEMETOLOGY METHOD 06/03/2024 3:02 PM [facility] Basophils Relative 0.7 % LAB HEMETOLOGY METHOD 06/03/2024 3:02 PM [facility] Immature Granulocytes Relative 0.3 % LAB HEMETOLOGY METHOD 06/03/2024 3:02 PM [facility] Neutrophils Absolute 3.74 1.50 - 7.00 K/mcL LAB HEMETOLOGY METHOD 06/03/2024 3:02 PM [facility] Lymphocytes Absolute 1.95 1.00 - 5.00 K/mcL LAB HEMETOLOGY METHOD 06/03/2024 3:02 PM [facility] Monocytes Absolute 0.37 0.20 - 1.00 K/mcL LAB HEMETOLOGY METHOD 06/03/2024 3:02 PM [facility] Eosinophils Absolute 0.02 0.00 - 0.50 K/mcL LAB HEMETOLOGY METHOD 06/03/2024 3:02 PM [facility] Basophils Absolute 0.04 0.00 - 0.20 K/mcL LAB HEMETOLOGY METHOD 06/03/2024 3:02 PM [facility] Immature Granulocytes Absolute 0.02 0.00 - 0.03 K/mcL LAB HEMETOLOGY METHOD 06/03/2024 3:02 PM EDT [facility] Blood Venous blood specimen / Unknown Venipuncture / Unknown 06/03/2024 2:48 PM EDT 06/03/2024 2:58 PM EDT Anil Louis MD LAB BLOOD ORDERABLES Marleny l Result Performing Organization Address City/[facility]/ZIP Co de Phone Number [facility] [address] [place] [address], [place] [phone] * B-type natriuretic peptide (06/03/2024 2:48 PM EDT) Only the most recent of2 resultswithin the time period is included. BNP 63 <=100 pcg/mL LAB CHEMISTRY METHOD 06/03/2024 3:34 PM EDT [facility] Blood Venous blood specimen / Unknown Venipuncture / Unknown 06/03/2024 2:48 PM EDT 06/03/2024 2:58 PM EDT Anil Louis MD LAB BLOOD ORDERABLES Marleny l Result Performing Organization Address [facility] Co de Phone Number [facility] [address] [place] [address], [place] [phone] * Magnesium (06/03/2024 2:48 PM EDT) Only the most recent of2 resultswithin the time period is included. Magnesium 1.9 1.9 - 2.6 mg/dL LAB CHEMISTRY METHOD 06/03/2024 3:25 PM EDT [facility] Blood Venous blood specimen / Unknown Venipuncture / Unknown 06/03/2024 2:48 PM EDT 06/03/2024 2:58 PM EDT Anil Louis MD LAB BLOOD ORDERABLES Marleny l Result Performing Organization Address [facility]/ZIP Co de Phone Number [facility] [address] [place] [address], * Lipase (06/03/2024 2:48 PM EDT) Only the most recent of2 resultswithin the time period is included. Lipase 19 13 - 75 unit/L LAB CHEMISTRY METHOD 06/03/2024 3:25 PM EDT [facility] Blood Venous blood specimen / Unknown Venipuncture / Unknown 06/03/2024 2:48 PM EDT 06/03/2024 2:58 PM EDT Anil Louis MD LAB BLOOD ORDERABLES Marleny l Result Performing Organization Address [facility]/ZIP Co de Phone Number [facility] [address] [place] [address], [place] [phone] * (ABNORMAL) Comprehensive metabolic panel (06/03/2024 2:48 PM EDT) Only the most recent of2 resultswithin the time period is included. Pathologist [facility] Sodium 141 133 - 145 mmol/L LAB CHEMISTRY METHOD 06/03/2024 3:25 PM EDT [facility] Potassium 3.9 3.5 - 5.5 mmol/L LAB CHEMISTRY METHOD 06/03/2024 3:25 PM EDT [facility] Chloride 110 96 - 110 mmol/L LAB CHEMISTRY METHOD 06/03/2024 3:25 PM EDT [facility] CO2 26 21 - 32 mmol/L LAB CHEMISTRY METHOD 06/03/2024 3:25 PM EDT [facility] Anion Gap 5 3 - 11 LAB CHEMISTRY METHOD 06/03/2024 3:25 PM EDT [facility] Glucose 107(H) 70 - 100 mg/dL LAB CHEMISTRY METHOD 06/03/2024 3:25 PM EDT [facility] BUN 9 5 - 25 mg/dL LAB CHEMISTRY METHOD 06/03/2024 3:25 PM [facility] Creatinine 0.71 0.50 - 1.10 mg/dL LAB CHEMISTRY METHOD 06/03/2024 3:25 PM [facility] eGFR 106 >=60 mL/min/1. 73m2 LAB CHEMISTRY METHOD 06/03/2024 3:25 PM [facility] Comment:Calculation based on the??Chronic Kidney Disease Epidemiology Collaboration (CKD-EPI) equation refit??without adjustment for race. BUN/Creatinine Ratio 12.7 LAB CHEMISTRY METHOD 06/03/2024 3:25 PM [facility] Calcium 8.6 8.5 - 10.5 mg/dL LAB CHEMISTRY METHOD 06/03/2024 3:25 PM [facility] AST (SGOT) 16 10 - 42 unit/L LAB CHEMISTRY METHOD 06/03/2024 3:25 PM [facility] ALT (SGPT) 24 10 - 60 unit/L LAB CHEMISTRY METHOD 06/03/2024 3:25 PM [facility] Alkaline Phosphatase 79 42 - 121 unit/L LAB CHEMISTRY METHOD 06/03/2024 3:25 PM [facility] Total Protein 6.7 6.0 - 8.0 g/dL LAB CHEMISTRY METHOD 06/03/2024 3:25 PM [facility] Albumin 3.5 3.2 - 5.0 g/dL LAB CHEMISTRY METHOD 06/03/2024 3:25 PM [facility] Total Bilirubin 0.3 0.0 - 1.4 mg/dL LAB CHEMISTRY METHOD 06/03/2024 3:25 PM [facility] Blood Venous blood specimen / Unknown Venipuncture / Unknown 06/03/2024 2:48 PM EDT 06/03/2024 2:58 PM EDT us Anil Louis MD LAB BLOOD ORDERABLES Marleny l Result [facility] [address] [place] [address], [place] [phone] * ECG-Outside (05/02/2024) us Provider Onbase ECG ORDERABLES Final Result * Urinalysis with reflex microscopic and culture (04/30/2024 10:34 PM EST) Specific [place] Urine 1.011 1.003 - 1.030 LAB URINALYSIS [...] 04/30/2024 10:46 PM [facility] Blood, Urine Negative Negative LAB URINALYSIS - AUTOMATED METHOD 04/30/2024 10:46 PM EST [facility] Urine Urine specimen obtained by clean catch procedure / Unknown Non-blood Collection / Unknown 04/30/2024 10:34 PM EST 04/30/2024 10:40 PM EST Brenda DELATORRE LAB URINE ORDERABLES Final Result Performing Organization Address City/[facility]/ZIP Co de Phone Number [facility] [address] [place] [address], [place] [phone] * Mccoy urine culture tube (04/30/2024 10:34 PM EST) Extra Tube Hold for add-ons. 05/01/2024 12:01 AM EST [facility] Comment:Auto resulted. Urine Urine specimen obtained by clean catch procedure / Unknown Non-blood Collection / Unknown 04/30/2024 10:34 PM EST 04/30/2024 10:40 PM EST Brenda DELATORRE LAB URINE ORDERABLES Final Result Performing Organization Address [facility]/ZIP Co de Phone Number [facility] [address] [place] [address], [place] [phone] * Cortisol (04/30/2024 8:00 PM EST) Cortisol 4.3 mcg/dL LAB CHEMISTRY METHOD 04/30/2024 9:44 PM EST [facility] Blood Venous blood specimen / Unknown Venipuncture / Unknown 04/30/2024 8:00 PM EST 04/30/2024 8:30 PM EST Narrative [facility] - 04/30/2024 9:44 PM EST CORTISOL REFERENCE RANGE ?? 8 AM SPEC: ??5.0-23.0 mcg/dL ?? 4 PM SPEC: ??3.0-16.0 mcg/dL ?? 8 PM SPEC: ??<5.0 mcg/dL us Brenda DELATORRE LAB BLOOD ORDERABLES Final Result [facility] [address] [place] [address], [place] [phone] from Last 3 Months Insurance MEDICARE MEDICAID [...] currently active code status orders. Care Teams Branch Associate Relationship Specialty Start Date End Date Lisseth Nassar NP [address] [place] [phone] PCP - General 07/07/21
--- OUTSIDE RECORDS SUMMARY | 2024-06-18 11:54 | XMS_ITS | Data Portability ---
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 Overview/History: 45 yo female with fall from bed to the floor yesterday is seen for concerns of rib fx. The pain is on the left anterior lower rib cage. She denies chest pain or SOB. No prod cough fevers or chills Exam: (+)tenderness over the lower left anterior rib cage. There is no crepitus, no flail chest, subQ emphysema, observed or palpable deformity. Lung sounds heard in all lung pires. No diminished sounds, no wheeze, no rales, no rhonchi. heart exam wnl AVSS no resp distress nontoxic appearing Vital Signs: AVSS DDx considered, but not limited to: rib fx contusion PTX Work up/Results: CXR ordered Plan/Discussion: -pt clinically stable -no evidence of PTX or flail chest -no resp distress -able to fully expand lung pires -order CXR -lidoderm patches ordered -APAP or IBUprofen as needed -if pain worsens, chest pain or SOB start, prod cough or fevers begin she will seek [facility] medical attn [email or web address] Not available 08/22/2021 17:51:56 10/26/2021 10/26/2021 Overview/History : 46 YO F new to provider and known to She is being seen today for ? asthma exacerbation She is c/o of sob and chest pain today mostly pleuritic she thinks however it is progressive and she eventually describes it as crushing and substernal, 10/10 pain. She did go to [facility] last night where she waited for 10 hours and ended up leaving because the wait was so long. 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 She does have some LE bruising that is new and n reported sig taruma (just scratching hersely) and LLE calf pain as well. No hx clotting and no hx of heart attack but she does report she has a ruffling hemmer automatic for heart issues . I did ask a few times and this was not elaborated on much further during visit. Otherwise she denies any sever headache, vision changes, jaw or arm pain (she orellana shave some epigastric pain), no numbness/tingling. She does feel generally weak and she feels she is getting worse not better. She is worse than yesterday. Exam: Vitals: Tachy up to 130! Other VSS for now and afebrile Constitutional: 46 yo F in acute distress, anxious, diaphoretic, sitting upright on couch, not actely toxic. She is awake and alert. Eyes: PERRL at 4mm, EOM's intact, No swelling, no discharge, sclera / conjunctiva clear ENT: no nasal discharge, no erythema/ exudate noted in oropharynx, moist mucous membranes CV: Tachycardia, no rubs/ murmurs/ gallops heard, 2+ radial pulses bilaterally, trace edema BL and calf tenderness to LLE, none to RLE, 2+ DP/ PT pulses bilaterally Pulm: breath sounds clear and equal bilaterally, no wheeze/ rhonchi or rales on auscultation. Speaks in full sentences, no increased work of breathing. Chest: No chest pain to palpation and no s/s of injury to the chest. GI: Soft, non-tender to palpation. No masses, normal bowel sounds. MS: Self ambulatory patient w/ a cane, moves all limbs without deficit, no evidence of trauma Neuro: No focal deficits, A&O x4, gait is not ataxic Skin: Mild bruises that are resolving to LE, no petechia noted, no rashes, no open wounds, no cyanosis or pallor. Psych: Anxious DDx considered, but not limited to: ACS - possible tachycardiac, crushing cp, sob, needs r/o PE - possible, LLE tenderness, tachycardia, sob, pleuritic cp, needs r/o Asthma Exacerbation - no wheezing, O2 sat stable, believe this is not cause of sxs at this time Rebound COVID - she is s/p paxlovid after last week, feeling sick again but rapid test is neg and sxs seem more severe than when she had coivd last week, no congstion etc and more acute severe chest pain Work up/Results: EKG w/o any OBVIOUS s/s of ischemia/infarctio n however she still needs stat [place] to ED for r/o ACS and PE d/t her sxs at this time Plan/Discussion: Chest pain w/ SOB: -Pt has SEVERE, 10/ substernal chest pain during visit -Intially called for visit for ? asthma exacerbation however she has been getting worse throughout the day today -She is also diaphoretic, anxious, noticeably dyspneic albeit mildly (struggles a little bit with long sentences) -Other VSS besides HR up to 130 but she needs stat r/o of ACS and PE _She agrees w/ this assessment -She would like to go to hospital via ambulance -EKG not obviously abnormal as per above, just shows sinus tachy, but given sxs still needs transport -She also has reports of easy bruising nt on blood thinners and she will have cbc done as part of ED workup which may show thrombocytopenia if any -EMS is called and pt handed off -Expect called in to [facility] She cont to look worse and more anxious throughout the visit, hunched over in chair, c/o weakness, and worsening cp throughout. Off to hospital for eval and possible tx. Pt is on agreement and verbalizes understanding with the above plans at this time. Pt has no other questions or concerns at this time. All questiosn are answered to the best of my ability. Pt thanks us for our visit today. In order to obtain further information and compare any laboratory results/values, I have accessed old pt records. This information was pertinent in my medical decision making today. [email or web address] Not available 10/26/2021 18:50:13 Plan of Treatment Reminders Order Date Submit Date Provider Last Modified By Organization Details Last Modified Time Details Appointments None recorded. Lab rapid SARS CoV 2 Ag, QL IA, respiratory specimen 2021 ceci [facility], [address], [place], [address], 18:46:25 Referral None recorded. Procedures None recorded. Surgeries None recorded. Imaging XR, chest, 2 view - call // rule out rib fx [place]. lower left anterior 2021 BOZEMAN [facility] [address], [place], [address], 12:52:30 Medication Orders Lidoderm 5 % topical patch 2021 BOZEMAN [id number], [address] [place], [place], [id number], 15:56:31 Patient TargetsNo targets recorded. Patient Instructions Encounter Date Encounter Id Patient Instructions Last Modified By Organization Details Last Modified Time 08/22/2021 [id number] Back Pain - Discharge Instructions Basic Information: Back pain is a common problem, and has many different causes. Most back pain will improve within 2 weeks of onset. Common causes include lifting, twisting movements, overuse, unusual movements, stress, prolonged sitting, poor posture, being overweight and less commonly structural issues such as disc problems(sciatica) or fractures. X-rays and MRI? s are rarely indicated unless there has been significant trauma, if you are having certain abnormal neurologic abnormalities, or if you have certain underlying medical conditions that can cause spinal problems. Instructions: Avoid heavy lifting, bending ,twisting or prolonged sitting. Be as active as you can comfortably be, walking often makes back pain feel better. Be sure to change position at least every 2 hours to avoid stiffening up. BED REST IS NOT RECOMMENDED FOR BACK PAIN AND WILL MAKE YOU FEEL WORSE! Ice for 15 minutes every 2 hours and after 48 hours you may alternate with moist heat for 15 minutes. DO NOT FALL ASLEEP ON THE HEATING PAD, this will cause the area to swell and hurt more! When getting out of bed, roll to your side, and dangle your legs over the edge of the bed while pushing up with your hand and elbow to a seated position. Place a pillow between your knees while lying on your side, and under your legs when lying on your back to remove stress from the spine. Practice good posture as much as you are able, shoulders back, head up, abdomen pulled in. Gentle stretching, lie on your back and gently hug your knees. When you are feeling better there are many exercises that can help you treat and prevent low back pain, check with your Provider. If you are having pain/numbness going down your legs the Samia exercises are designed to relieve this pain, you can find demonstrations on [employer]Properati Weight loss will help to relieve stress on your back. Smoking can make back pain worse, try to limit or quit smoking, check with your provider about methods to help stop smoking. Medications: Based on your history and examination your provider will design a medication regimen specifically for your condition, this may include some of the following medications. Acetaminophen/Tyle nol: if you do not have any liver issues. Non-steroidal anti inflammatories/NSA IDS: These category includes ibuprofen (Motrin. Advil) and Naproxen (Aleve/Naprsoyn) and other medications. Anti-inflammatorie s are powerful pain relievers and the first line treatment for back pain. NSAID? s should be taken with food. People with kidney disease, hypertension or on blood thinners should not take these medications. Other medications may be prescribed, if they contain muscle relaxants or narcotic pain relievers DO NOT DRINK ALCOHOL, DRIVE OR OPERATE HEAVY MACHINERY WHILE TAKING THESE MEDICATIONS! Follow Up: You will need to follow up with your PCP for reevaluation within a few days If your back pain persists for more than 2 months or your condition deteriorates you may require further evaluation and testing. If you experience worsening and persistent numbness/weakness/ tingling, have numbness of your genitals, inability to urinate or losing urine, severe pain, fever more than 101.5, or are worse go to the ER for further evaluation. If you have additional concerns or develop a change in your condition between 8am-10pm, please call [facility] at [phone] to help navigate your care. [email or web address] Not available 08/22/2021 15:47:10 Reason for Referral None Reported. Results Created Date Observation Date Name Description Value Unit Range Abnormal Flag Note LastModifiedBy Organization Detail LastModifiedTime 10/27/19 22 10/26/2021 rapid SARS CoV 2 Ag, QL IA, respi rator y speci men Covid-19 (ref: neg) negati ve Not Available [facility] [address] [place], [address], 10/26/2021 18:46:03 10/27/19 22 10/26/2021 rapid SARS CoV 2 Ag, QL IA, respi rator y speci men Control Visual ized/V alid Not Available [facility] [address] [place], [address], 10/26/2021 18:46:03 10/27/19 22 10/26/2021 rapid SARS CoV 2 Ag, QL IA, respi rator y speci men Location [facility], [address] [place] [address], [phone] Not Available [facility] [address] [place], [address], 10/26/2021 18:46:03 08/25/19 22 08/24/2021 XR, chest , 2 view XRAY CHEST 2 VIEW FINDIN GS: The lungs are free of active pulmon jerardo diseas e. There is no mass, infilt rate, consol idatio n, or effusi on. There is no adenop athy, the medias tinum is normal . The osseou s struct ures are normal . CONCLU BE: Normal chest ELECTR ONICAL LY SIGNED BY KAMRON PALMA M.D. 022 12:39: 33 PM EDT. XRAY CHEST 2 VIEW Result s: The lungs are free of active pulmon jerardo diseas e. There is no mass, infilt rate, consol idatio n, or effusi on. There is no adenop athy, the medias tinum is normal . The osseou s struct ures are normal . Conclu be: Normal chest Electr onical ly signed by KAMRON PALMA M.D. 12:39: 33 PM EDT. [email or web address] [facility] [address], [place], [address], 08/24/2021 16:45:15 10/27/19 22 elect rocar diogr am No observ ation record ed. [email or web address] Not Available 2021 18:40:36 Result Notes None recorded. Procedures Surgical History Date Name Laterality Status Provider Name and Address Organization Details Recorded Time ECG Interpretation - DH completed JUAN RAMON Najera [address], [place], [address], [place] [facility] 10/26/2021 18:37:54 section completed JUAN RAMON Moran [address], [place], [address], [place] [facility] 10/26/2021 17:22:43 operative procedure on knee completed JUAN RAMON Najera [address], [place], [address], [place] [facility] 10/26/2021 17:22:50 Imaging Results Imaging Date Name Status LastModified by Organization Details LastModified Time 08/24/2021 XR, chest, 2 view completed [email or web address] [facility] [address], [place], [address], 08/24/2021 16:45:15 10/26/2021 electrocardiogram completed Informa tion not available 10/26/2021 18:40:36 Procedure Notes None recorded. Medical Equipment None Reported. Allergies Allergen ID Allergen Name Allergen Category Reaction Reaction Severity Criticality Documentation Date Start Date Code Code System Note Provider Name and Address Organization Details Recorded Time 098675 sulfadiaz ine medicatio n Not available Not available Not available 10/26/2021 82826 RxNorm JUAN RAMON Callaway [address], [place], [address], [place] [facility] 08/15/202 2 16:59:38 [id number] sertralin e medicatio n Not available Not available Not available 10/26/2021 97483 RxNorm Fahad Terrazas, PA [address], [place], [address], [place] [facility] 2 16:59:46 [id number] Substance with sulfonami de structure and antibacte rial mechanism of action (substanc e) medicatio n Not available Not available Not available 10/26/2021 48557 8003 SNOMED Fahad er Nini, PA [address], [place], [address], [place] [facility] 2 16:59:53 [id number] fentanyl medicatio n Not available Not available Not available 10/26/2021 4337 RxNorm Fahad er Nini, [place] [address], [place], [address], [place] [facility] 2 17:00:04 [id number] Non-stero idal anti-infl ammatory agent (product) medicatio n Not available Not available Not available 10/26/2021 [id number] 005 SNOMED Fahad Terrazas, PA [address], [place], [address], [place] [facility] 2 17:00:15 Medications Name Sig Start Date Stop Date Status Note LastModified by Organization Details LastModified Time quetiapine 25 mg tablet TK 1 TO 3 TS PO HS PRF POLISHER 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 active Not Available Not Available No t Available oxcarbazepi ne 150 mg tablet TAKE 1 TABLET BY MOUTH TWICE DAILY active Not Available Not Available No t Available prednisone 10 mg tablet active Not Available Not Available Not Available tizanidine 2 mg tablet TAKE 1 TABLET BY MOUTH EVERY 8 HOURS NEEDED FOR MUSCLE SPASM active Not Available Not Available No t Available albuterol sulfate 2.5 mg/3 mL (0.083 %) solution for nebulizatio n USE 1 VIAL VIA NEBULIZER EVERY 6 HOURS active Not Available Not Available No t Available cetirizine 10 mg tablet TAKE 1 TABLET BY MOUTH DAILY active Not Available Not Available No t Available fluconazole 150 mg tablet TAKE 1 TABLET BY MOUTH FOR 1 DAY active Not Available Not Available No t Available tolterodine ER 4 mg capsule,ext ended release 24 hr TAKE 2 CAPSULES BY MOUTH DAILY active Not Available Not Available No t Available nitroglycer in 0.2 mg/hr transdermal 24 hour patch APPLY 1 PATCH DAILY active Not Available Not Available No t Available prochlorper azine maleate 5 mg tablet TAKE 1 TABLET BY MOUTH EVERY 6 HOURS NEEDED FOR NAUSEA OR VOMITING active Not Available Not Available No t Available sucralfate 1 gram tablet TAKE 1 TABLET BY MOUTH BEFORE MEALS AND AT BEDTIME active Not Available Not Available No t Available metronidazo le 0.75 % (37.5 mg/5 gram) vaginal gel INSERT 1 APPLICATO RFUL BY VAGINAL ROUTE EVERY NIGHT AT BEDTIME 10/26 completed Not Available Not Available Not Available famotidine 40 mg tablet TAKE 1 TABLET BY MOUTH AT BEDTIME active Not Available Not Available No t Available clonazepam 0.5 mg tablet TAKE 1 TABLET BY MOUTH FOUR TIMES DAILY NEEDED active Not Available Not Available No t Available quetiapine 200 mg tablet TAKE 1 TABLET BY MOUTH AT BEDTIME active Not Available Not Available No t Available clonazepam 1 mg tablet TAKE 1 TABLET BY MOUTH THREE TIMES DAILY NEEDED active Not Available Not Available No t Available Elmiron 100 mg capsule TK 2 CS PO BID active Not Available Not Available No t Available bacitracin 500 unit/gram topical ointment APPLY 1 APPLICATI ON TOPICALLY 4 TIMES DAILY FOR 10 DAYS active Not Available Not Available No t Available metronidazo le 500 mg tablet 10/26 completed Not Available Not Available Not Available oxcarbazepi ne 300 mg tablet TAKE 1 TABLET BY MOUTH TWICE DAILY active Not Available Not Available No t Available fluocinonid e 0.05 % topical ointment APPLY TOPICALLY TO THE AFFECTED AREA THREE TIMES DAILY active Not Available Not Available No t Available amlodipine 5 mg tablet TAKE 1 TABLET BY MOUTH EVERY DAY active Not Available Not Available No t Available quetiapine 100 mg tablet TAKE 1 TABLET BY MOUTH AT BEDTIME NEEDED FOR SLEEP active Not Available Not Available No t Available acetaminoph en 500 mg tablet TAKE 2 TABLETS BY MOUTH EVERY 8 HOURS active Not Available Not Available No t Available spironolact one 25 mg tablet active Not Available Not Available Not Available oxycodone 15 mg tablet TAKE 1 TABLET BY MOUTH EVERY 4 HOURS NEEDED FOR PAIN. active Not Available Not Available No t Available amlodipine 5 mg-benazepr il 10 mg capsule TAKE 1 CAPSULE BY MOUTH DAILY TO. REPLACE BEFORE PRESCRIPT ION AMLODIPIN E active Not Available Not Available No t Available phenazopyri dine 100 mg tablet TAKE 1 TABLET BY MOUTH THREE TIMES DAILY FOR 4 DAYS NEEDED FOR SPASM active Not Available Not Available No t Available prochlorper azine 25 mg rectal suppository UNWRAP AND INSERT 1 SUPPOSITO RY RECTALLY EVERY 12 HOURS NEEDED FOR NAUSEA OR VOMITING active Not Available Not Available No t Available baclofen 10 mg tablet TAKE 1 TABLET BY MOUTH THREE TIMES DAILY active Not Available Not Available No t Available amlodipine 10 mg tablet TAKE 1 TABLET BY MOUTH DAILY active Not Available Not Available No t Available buspirone 10 mg tablet TAKE 1 TABLET BY MOUTH TWICE DAILY active Not Available Not Available No t Available lansoprazol e 30 mg capsule,del ayed release TAKE 1 CAPSULE BY MOUTH DAILY active Not Available Not Available No t Available divalproex ER 500 mg tablet,exte nded release 24 hr TAKE 1 TABLET BY MOUTH EVERY MORNING THEN TAKE 2 TABLETS BY MOUTH EVERY NIGHT AT BEDTIME. active Not Available Not Available No t Available lidocaine 5 % topical patch APPLY 1 PATCH BY TOPICAL ROUTE ONCE DAILY (MAY WEAR UP TO 12HOURS.) active Not Available Not Available No t Available promethazin e 25 mg tablet TK 1 T PO Q 4 H PRF NAUSEA OR VOM active Not Available Not Available No t Available ursodiol 300 mg capsule TAKE 1 CAPSULE BY MOUTH TWICE DAILY active Not Available Not Available No t Available oxycodone 5 mg capsule TAKE 1 CAPSULE BY MOUTH EVERY 8 HOURS NEEDED FOR PAIN active Not Available Not Available No t Available fluoxetine 10 mg capsule TAKE 1 CAPSULE BY MOUTH DAILY FOR 2 WEEKS. INCREASE TO 2 CAPSULES DAILY active Not Available Not Available No t Available buspirone 7.5 mg tablet TAKE 1 TABLET BY MOUTH TWICE DAILY active Not Available Not Available No t Available montelukast 10 mg tablet TAKE 1 TABLET BY MOUTH DAILY IN THE EVENING active Not Available Not Available No t Available clindamycin 2 % vaginal cream INSERT ONE APPLICATO RFUL VAGINALLY AT BEDTIME FOR 7 DAYS 10/26 completed Not Available Not Available Not Available zolpidem 5 mg tablet TAKE 1 TABLET BY MOUTH AT BEDTIME NEEDED active Not Available Not Available No t Available gabapentin 100 mg capsule TAKE 2 CAPSULES BY MOUTH EVERY NIGHT AT BEDTIME FOR 3 DAYS THEN TAKE 2 CAPSULES TWICE DAILY X3DAYS THEN TAKE 2 CAPSULES THREE TIMES DAILY active Not Available Not Available No t Available azelastine 137 mcg (0.1 %) nasal spray USE 1 SPRAY IN EACH NOSTRIL TWICE DAILY active Not Available Not Available No t Available scopolamine 1 mg over [address] 1 MG PATCH INTO THE SKIN EVERY 3 DAYS active Not Available Not Available No t Available methylpredn isolone 4 mg tablets in a dose pack FOLLOW PACKAGE DIRECTION S 10/26 completed Not Available Not Available Not Available ferrous sulfate 325 mg (65 mg iron) tablet,jeromy yed release active Not Available Not Available Not Available ondansetron 4 mg disintegrat ing tablet TAKE 1 TABLET BY MOUTH EVERY 8 HOURS NEEDED FOR NAUSEA active Not Available Not Available No t Available fluoxetine 20 mg capsule TAKE 1 CAPSULE BY MOUTH DAILY active Not Available Not Available No t Available fluticasone propionate 50 mcg/actuati on nasal spray,suspe nsion SHAKE LIQUID AND USE 1 SPRAY IN EACH NOSTRIL TWICE DAILY active Not Available Not Available No t Available colestipol 1 gram tablet TAKE 1 TABLET BY MOUTH TWICE DAILY active Not Available Not Available No t Available oxycodone 5 mg tablet TAKE 1 TABLET BY MOUTH EVERY 6 HOURS NEEDED FOR SEVERE BREAKTHRO UGH PAIN active Not Available Not Available No t Available bupropion HCl XL 300 mg 24 hr tablet, extended release TAKE 1 TABLET BY MOUTH EVERY MORNING active Not Available Not Available No t Available bupropion HCl XL 150 mg 24 hr tablet, extended release TAKE 1 TABLET BY MOUTH EVERY MORNING active Not Available Not Available No t Available solifenacin 10 mg tablet TAKE 1 TABLET BY MOUTH DAILY active Not Available Not Available No t Available Flovent HFA 220 mcg/actuati on aerosol inhaler INHALE 2 PUFFS BY MOUTH TWICE DAILY active Not Available Not Available No t Available ProAir HFA 90 mcg/actuati on aerosol inhaler TAKE 2 PUFFS BY MOUTH EVERY 4 HOURS NEEDED FOR SHORTNESS OF BREATH active Not Available Not Available No t Available Movantik 12.5 mg tablet TAKE 1 TABLET BY MOUTH EVERY MORNING active Not Available Not Available No t Available Movantik 25 mg tablet active Not Available Not Available No t Available Phenohytro 16.2 mg-0.1037 mg-0.0194 mg tablet TAKE 1 TABLET BY MOUTH TWICE DAILY - FOUR TIMES DAILY NEEDED FOR INDIGESTI ON. GIVE 30 MINUTES BEFORE MEALS AND AT BEDTIME active Not Available Not Available No t Available Sodium Fluoride 5000 Plus 1.1 % dental cream active Not Available Not Available Not Available BinaxNOW COVID-19 Ag Self Test kit TEST DIRECTED TODAY active Not Available Not Available No t Available Paxlovid 300 mg (150 mg x 2)-100 mg tablets in a dose pack TK 2 NIRMATREL VIR TS AND 1 RITONAVIR T TOGETHER PO BID FOR 5 DAYS TWICE DAILY FOR 5 DAYS WITH OR WITHOUT FOOD 10/26 completed Not Available Not Available Not Available Vitals Date Recorded Respiratory rate Heart rate Body temperature Oxygen saturation Oxygen saturation in Arterial blood by Pulse oximetry Systolic blood pressure Diastolic blood pressure Provider Name and Address Organization Details Last Updated DateTime 2 16 /min 100 /min 97.3 [degF] 97 % 97 % 124 mm[Hg] 84 mm[Hg] Not Available [facility] 2 15:54:01 Date Recorded Body temperature Oxygen saturation Oxygen saturation in Arterial blood by Pulse oximetry Heart rate Respiratory rate Systolic blood pressure Diastolic blood pressure Provider Name and Address Organization Details Last Updated DateTime 2 98.6 [degF] 98 % 98 % 116 /min 16 /min 144 mm[Hg] 96 mm[Hg] Not Available [facility] 2 17:34:30 Social History Question Answer Notes LastModified by Organizat ion Details LastModified Time Tobacco Smoking Status Never Smoker JUAN RAMON Najera [address] [place] [address], [address], [place] [facility] 10/26/2021 17:23:22 What Is Your Level Of Alcohol Consumption? None Information not available 10/26/2021 Do You Use Any Illicit Or Recreational Drugs? Yes Marijuana Occasionally Information not available 10/26/2021 Sex: Unknown Functional Status None recorded. Mental Status None recorded. Family History Nothing Reported. Medical History Condition Response Diabetes N Coronary Artery Disease N CHF N Parkinson's Disease N Cancer N Stroke N Dementia N Hypothyroidism N Asthma Y COPD N Depression N High Cholesterol N Rheumatoid Arthritis N Pulmonary Embolism N Hypertension Y Osteoporosis N A-fib N Kidney Disease N Gynecological HistoryNo gynecological history recorded. Obstetrics History GPAL:G 0 P 0 0 0 0 Past Encounters Encounter ID Performer Location Encounter Start Date Encounter Closed Date Diagnosis/Indication Diagnosis SNOMED-CT Code Diagnosis ICD10 Code Diagnosis Note [id number] [facility] [address] [facility] [place] [address] 08/22/2021 15:45:20 08/26/2021 13:50:16 Rib pain 496417907 R07.81 [id number] JUAN RAMON [facility] [address] [place] [address] 10/26/2021 16:56:17 10/27/2021 09:46:32 Chest pain 68694102 R07.9 Dyspnea 375597881 R06.00 Sinus tachycardia 281385 01 R00.0 Health Concerns Section Related Observation LastModified by Organization Detai ls LastModified Time None Recorded Concern Status LastModified by Organization Details LastModified Time None Recorded Advance Directives Directive None Recorded Payers Encounter Date Sequence Insurance Name Policy Number Policy Leo Covered Member ID Leo Member ID Guarantor Name 08/22/2021 1 [place] [employer] Eboni A [place] [id number] E[place]i [place] 08/22/2021 2 [place] [id number] Eboni Rc 10/26/2021 1 [place] [place] Eboni A [place] [id number] Eboni [place] 10/26/2021 2 [place]bon[place] [id number] Eboni Rc Notes Date Note Type Note Provider Name and Address Organization Details Recorded Time 2 text/html 45 yo female new to providerPT IS SEEN FOR RIB PAIN - THAT WASNT AN OPTION ON THE REVIEW SCREEN-upon entering the house the pt is ambulating with a cane-she then walks up a flight of stairs to get her insurance card-on the way down she no longer has a cane-she then climbs the stairs again b/c she got the wrong card-upon descending the stairs a 2nd time she still has no cane-she reports she had a fall yesterday from her bed to floor-she fell forward onto her front left side-the pain in on the left anterior ribs-no fevers chill cough SOB-no N V-no head trauma// JUAN RAMON Narvaez [address], [place], [address], [place] [facility] 08/22/2021 17:52:04 2 text/html 46 YO F [facility] to provider [facility] ? asthma exacerbationShe is c/o of sob and chest pain today mostly pleuritic she thinks however it is progressive and she eventually describes it as crushing and substernal, 10/10 pain. She did go to [facility] last night where she waited for 10 hours and ended up leaving because the wait was so long. 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 She does have some LE bruising that is new and n reported sig taruma (just scratching hersely) and LLE calf pain as well. No hx clotting and no hx of heart attack but she does report she has a ruffling hemmer automatic for heart issues . I did ask a few times and this was not elaborated on much further during visit. Otherwise she denies any sever headache, vision changes, jaw or arm pain (she orellana shave some epigastric pain), no numbness/tingling. She does feel generally weak and she feels she is getting worse not better. She is worse than yesterday. JUAN RAMON Najera [address], [place], [address], [place] [facility] 10/26/2021 18:50:29 OBGyn Episode No OBEpisode recorded.
== END 2024-06-18 16:45 | disposition home or self-care (01) ==
LOC: HO.HGI 10:12
PROVIDERS: PCP Nurse Practitioner Family; Visit Provider Internal Medicine Gastroenterology
DX: K52.9 Noninfective gastroenteritis and colitis, unspecified (principal)
CPT/HCPCS: 99213

== ENCOUNTER → 2024-06-18 10:12 | Outpatient (BNVA) | payer MEDICARE, MEDICAID, SELFPAY | PROVIDERS: PCP Nurse Practitioner Family; Visit Provider Internal Medicine Gastroenterology ==

== ENCOUNTER 2024-06-19 11:30 | Outpatient (RCR) | payer MEDICARE, MEDICAID, SELFPAY ==
[2024-05-14 12:03] VITALS: BP 109/66; PULSE 77; RESP 18; TEMP 36.6; O2SAT 99
[2024-05-14] MEDS: Iron Sucrose Complex 200 MG/10 ML VIAL IVPUSH (12:14)
--- NOTE | 2024-05-14 12:25 | HO.INF ---
pt reports arm cramping on side of iv push venofer. iv push slowed to over 10 min. cramping subsided once slowed. pharmacy made aware. plan for iv bag infusions for future appts.
[2024-05-21 11:50] VITALS: BP 104/74; PULSE 90; RESP 14; TEMP 37.5; O2SAT 100
[2024-05-21] MEDS: Iron Sucrose Complex 200 MG 440 MG IV (12:03)
[2024-05-29 10:21] VITALS: BP 144/97; PULSE 74; RESP 16; TEMP 36.7; O2SAT 100
[2024-05-29] MEDS: Iron Sucrose Complex 200 MG 440 MG IV (10:33)
[2024-06-04 13:25] VITALS: BP 170/110; PULSE 80; RESP 14; TEMP 37.7; O2SAT 100
--- NOTE | 2024-06-04 13:29 | HO.INF ---
suggestedd luis carlos I take patient to ER r/t to elevated BP. Patient decllines ER going to see her doctor after this appointment
[2024-06-04] MEDS: Iron Sucrose Complex 200 MG 440 MG IV (13:50)
[2024-06-04] MEDS: 0.9 % Sodium Chloride Flush 10 ML SYRINGE 5 ML IVFLUSH (14:06)
--- NOTE | 2024-06-04 14:09 | HO.INF ---
IV left in as patient is going to the ER per MD
--- NOTE | 2024-06-04 14:17 | HO.INF ---
pt describes feeling general malaise, n/v/d with high bps for 4 days. seen recently this past tuesday at [facility] for high bp and uti, precribed macrobid. pt noted to still be htn 170s sys and 110s page. pt spoke with dr menjivar who recommended pt be seen in ed. report given to ed ajit goddard and ricardo. prn angio 24g left in. pt taken via wc to ed bed 21 and handed off to ajit silva.
[2024-06-11 11:20] VITALS: BP 102/66; PULSE 98; RESP 14; TEMP 37.1; O2SAT 99
[2024-06-11] MEDS: Iron Sucrose Complex 200 MG 440 MG IV (11:32)
[2024-06-19 11:16] VITALS: BP 144/101; PULSE 83; RESP 14; TEMP 36.9; O2SAT 99
[2024-06-19] MEDS: Iron Sucrose Complex 200 MG 440 MG IV (11:26)
[2024-06-19] MEDS: 0.9 % Sodium Chloride Flush 10 ML SYRINGE 5 ML IVFLUSH (11:45)
== END 2024-06-19 11:50 | disposition home or self-care (01) ==
LOC: HO.INF 11:30
PROVIDERS: Visit Provider Internal Medicine Gastroenterology
DX: D64.9 Anemia, unspecified (principal)
CPT/HCPCS: 96365; 96374; J1756

== ENCOUNTER 2024-08-07 13:19 | Outpatient (AMB) | payer MEDICARE, MEDICAID, SELFPAY ==
--- NOTE | 2024-08-07 13:40 | HO.NEPHOV ---
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 Required: No Accompanied by: Self / Same As Patient Allergies sertraline [From ZOLOFT] Allergy (Intermediate, Verified 08/07/24 13:42) prolonged QT interval Sulfa (Sulfonamide Antibiotics) [SULFA (SULFONAMIDE ANTIBIOTICS)] Allergy (Intermediate, Verified 08/07/24 13:42) RASH haloperidol [From Haldol] Allergy (Mild, Verified 08/07/24 13:42) unknown morphine [MORPHINE] Allergy (Mild, Verified 08/07/24 13:42) Rash NSAIDS (Non-Steroidal Anti-Inflamma [NSAIDS (NON-STEROIDAL ANTI-INFLAMMA] Adverse Reaction (Intermediate, Verified 08/07/24 13:42) STOMACH UPSET fentanyl patch Allergy (Severe, Uncoded 06/18/24 10:13) Unresponsive HPI Comments Details: 46 year old with history of chronic gastritis, anxiety, depression, history of lap band removal, hypertension, FLOWER, bipolar disorder as well as interstitial cystitis who follows up closely with Urology for her cystitis, was seen in follow up for hypertension. She had normal renal functions but hsa H/O MELANY which has been resolved. She has been having BP spikes when her pain control is not optimal. She is on pain medications. She feels she needs long acting pain medications. She claims to have family history of renal dysfunction ( Mom). There was no family history of any sensorineural deafness, Alport syndrome, thin membrane disease. She is not a diabetic. 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 She denies taking excessive nonsteroidal anti-inflammatories. She recently had intuscusseption and underwent intervention by Dr Allen. She also has been started on mesalamine. [facility] Medical History (Updated 08/07/24 @ 13:51 by Serge Murillo MD) HTN (hypertension) Low serum cortisol level Multinodular goiter Decreased oral intake Takotsubo cardiomyopathy Burn injury Arthritis Low back pain Elevated cholesterol SOB (shortness of breath) Asthma Numbness Mood disorder IBS (irritable bowel syndrome) OAB (overactive bladder) Sleep apnea Hypersomnia Anxiety Surgical History Hx of gastric bypass Hx of total knee replacement Hx of knee surgery Hx of hernia repair History of cystoscopy Hx of laparoscopic gastric banding Hx of hysterectomy History of H/O gastric bypass Hx of endoscopy History of colonoscopy Family History Father Hx of colon cancer, stage IV Mother Family history of high blood pressure Social History Household Members: Children Household Members Other:: My son Housing: Apartment Are you a primary livestock caretaker to a significant other at home: No Do you presently have visiting nurse or other home services: Yes (youngest dtr is certified flex endoscope reprocessor) Alcohol intake: never Comment: previously medicated Patient Tobacco Use Status: Never used Tobacco e-Cigarette/Vaping Use: Never Used Second Hand Smoke Exposure: No Substance Use Type: Marijuana service: No Review of Systems Const All systems reviewed & are unremarkable except as noted in HPI and below Physical Exam Vital Signs: Last Vital Signs Pulse 81 08/07/24 13:42 BP 142/90 H 08/07/24 13:42 Pulse Ox 95 08/07/24 13:42 Oxygen Delivery Method Room Air 08/07/24 13:42 BMI result Body Mass Index 29.7 Const General: comfortable and no acute distress Orientation/consciousness: patient oriented x3 HEENT Head: Yes normocephalic Mouth: Normal oral and palatal mucosa present Eyes EOM: EOMs intact bilaterally Neck Neck: Yes supple Resp Auscultation: clear to auscultation bilaterally Cardio Jugular venous distension: no JVD Rate: regular rate GI Palpation (GI): Soft to palpation Auscultation: normal bowel sounds General: Yes no CVA tenderness Back/Spine/Pelvis Back: no CVA tenderness Skin General skin exam: no rashes or lesions noted Neuro General: patient oriented x3 and moves all extremities Extrem General: Yes no pedal edema Results Reviewed Nephrology Results: Hgb 10.8 g/dl (12.0-16.0) L 06/05/24 WBC 8.0 X10*3/uL (4.8-10.8) 06/05/24 Plt Count 293 X10*3/uL (160-400) 06/05/24 Sodium 140 mmol/L (135-145) 06/05/24 Potassium 3.8 mmol/L (3.3-5.1) 06/05/24 Chloride 108 mmol/L (96-108) 06/05/24 Carbon Dioxide 25 mmol/L (22-29) 06/05/24 BUN 7 mg/dL (9-16) L 06/05/24 Creatinine 0.70 mg/dL (0.5-1.4) 06/05/24 Calcium 8.6 mg/dL (8.4-10.2) 06/05/24 Urine Protein Negative mg/dL (Neg-Trace) 06/04/24 Assessment & Plan Assessment & Plan (1) HTN (hypertension): Code(s): I10 - Essential (primary) hypertension Category: Medical Qualifiers: Hypertension type: primary hypertension Qualified Code(s): I10 - Essential (primary) hypertension Plan Her renal functions is at baseline now. Her last renal ultrasound was normal. She has not known to have blood or protein in the urine. She is known to have interstitial cystitis for which she is closely followed up by her urologist. She avoids nonsteroidal anti-inflammatories . I asked her to C/W Carvedilol 6.25 mg bid & amlodipine 2.5 mg daily in noon time . She had an ECHO/Cardiac MRI. Her serum potassium is normal. I did not make any other medication changes today.I answered all questions Orders: Orders Blood Urea Nitrogen 3 Months I10 - Essential (primary) hypertension Electrolytes 3 Months I10 - Essential (primary) hypertension Creatinine 3 Months I10 - Essential (primary) hypertension Medications: New carvedilol 6.25 mg (1/2 x 12.5 mg) PO BID 60 tabs 11RF Refilled amlodipine 2.5 mg PO DAILY 90 tabs 4RF Coding Level of Care Code Est Pt Level 4 (12308) Diagnoses Primary hypertension I10 Hypertension type: primary hypertension
[2024-08-07 13:42] VITALS: BP 130/90; PULSE 81; O2SAT 95; BMI 29.7
== END 2024-08-07 14:00 | disposition home or self-care (01) ==
LOC: HO.HKAS 13:19
PROVIDERS: PCP Nurse Practitioner Family; Visit Provider Internal Medicine Nephrology
DX: I10 Essential (primary) hypertension (principal)
CPT/HCPCS: 99214

== ENCOUNTER → 2024-08-07 13:19 | Outpatient (BNVA) | payer MEDICARE, MEDICAID, SELFPAY | PROVIDERS: PCP Nurse Practitioner Family; Visit Provider Internal Medicine Nephrology | DX: I10 Essential (primary) hypertension (principal); G47.33 Obstructive sleep apnea (adult) (pediatric) | CPT/HCPCS: 99212 ==

== ENCOUNTER 2024-08-28 14:46 | Outpatient (AMB) | payer MEDICARE, MEDICAID, SELFPAY ==
--- NOTE | 2024-08-28 14:46 | MHC.OFFVIS ---
Intake Visit Reasons: discuss IC vs hydro Intake Note: Patient is present for DISCUSS IC VS HYHDRO Urology Medication:TAMSULOSIN,HYDROXYZINE PAMOATE,FESOTERODINE ER Antibiotic Allergy:SULFA Blood Thinner:NONE Flying I Instructor Required: No Allergies sertraline (From ZOLOFT) Allergy (Intermediate, Verified 08/28/24 14:48) prolonged QT interval Sulfa (Sulfonamide Antibiotics) (SULFA (SULFONAMIDE ANTIBIOTICS)) Allergy (Intermediate, Verified 08/28/24 14:48) RASH haloperidol (From Haldol) Allergy (Mild, Verified 08/28/24 14:48) unknown morphine (MORPHINE) Allergy (Mild, Verified 08/28/24 14:48) Rash NSAIDS (Non-Steroidal Anti-Inflamma (NSAIDS (NON-STEROIDAL ANTI-INFLAMMA) Adverse Reaction (Intermediate, Verified 08/28/24 14:48) STOMACH UPSET fentanyl patch Allergy (Severe, Uncoded 08/28/24 14:48) Unresponsive HPI Comments Details: Eboni is a pleasant female. She is a patient of Dr. Nassar. She is seen for the following urologic conditions - interstitial cystitis - recurring UTI Telemedicine Evaluation 15 min Consultation Pinpoint MD Jeramy Video attempted Symptom recurrence Discussed obtaining UA to ensure not infected Update - UA obtained positive blood, positive leukocytes. Started on nitrofurantoin. Plan hydrodistention. Hydrodistention performed Dr. Davis 05/07 Nocturia 2-4x Nephrology Interstitial cystitis Have used combination amitriptyline, gabapentin for frequent nocturia Post recent hydrodistention - hydrodistention performed in February 2019. persistent urgency frequency. States nocturia times 6-8. Trouble holding urine and accidents. Already on strict diet secondary to gastric sleeve surgery - prior medications include Elmiron, oxybutynin, tolterodine - Last hydrodistention 10/03, 05/07, 03/06 Chronic pelvic pain Overlap syndrome - IBS with CPPS THC use with cyclic nausea PFSH Medical History (Updated 08/07/24 @ 13:51 by Serge Murillo MD) HTN (hypertension) Low serum cortisol level Multinodular goiter Decreased oral intake Takotsubo cardiomyopathy Burn injury Arthritis Low back pain Elevated cholesterol SOB (shortness of breath) Asthma Numbness Mood disorder IBS (irritable bowel syndrome) OAB (overactive bladder) Sleep apnea Hypersomnia Anxiety Surgical History Hx of gastric bypass Hx of total knee replacement Hx of knee surgery Hx of hernia repair History of cystoscopy Hx of laparoscopic gastric banding Hx of hysterectomy History of H/O gastric bypass Hx of endoscopy History of colonoscopy Family History Father Hx of colon cancer, stage IV Mother Family history of high blood pressure Social History Household Members: Children Household Members Other:: My son Housing: Apartment Are you a primary personal care attendant to a significant other at home: No Do you presently have visiting nurse or other home services: Yes (youngest dtr is bullet charging machine operator) Alcohol intake: never Comment: previously medicated Patient Tobacco Use Status: Never used Tobacco e-Cigarette/Vaping Use: Never Used Second Hand Smoke Exposure: No Substance Use Type: Marijuana service: No Review of Systems Const All systems reviewed & are unremarkable except as noted in HPI and below Reports no additional complaints Resp Reports no additional complaints GI Reports no additional complaints Reports as per HPI Musc Reports no additional complaints Physical Exam Telemedicine evaluation Appropriate responses Regular breathing rate and rhythm HEENT Head: Yes normal to inspection Ears: hearing grossly normal bilaterally Eyes General: appearance normal, both eyes and all related structures Neck Neck: Yes normal visual inspection Chest Chest palpation & inspection: normal inspection of the chest Resp Effort & Inspection: normal respiratory effort and able to speak in complete sentences Telehealth Telehealth Location of provider rendering services: practice address Location of patient: address on file Patient Identification confirmed using: Name, : Yes Telehealth method: voice only Patient verbally consented to treatment: Yes Patient verbally consented to billing insurance company: Yes Patient informed of any privacy concerns related to visit: Yes Assessment & Plan Assessment & Plan (1) Interstitial cystitis: Code(s): N30.10 - Interstitial cystitis (chronic) without hematuria Category: Medical (2) Pelvic pain in female: Comment: 12/31 right pelvic side wall, bilateral anterior Code(s): R10.2 - Pelvic and perineal pain Category: Medical Plan Risks, benefits and alternatives to therapy were discussed. These include but are not limited to infection, bleeding, damage to local organs and tissues, need for further interventions. Anesthetic risks regarding cardiac arrhythmia, blood clots, and potential mortality were discussed. The patient understands the typical recovery time and the outpatient nature of the procedure. After consideration of these risks the patient gives full informed consent and they wish to move ahead with the procedure. - cystoscopy, hydrodistention Patient Instructions: This note is constructed using voice recognition software. While every effort has been made to ensure accuracy bed manager errors may have been included. Imaging studies, laboratory and physical exam results were discussed and reviewed in detail. No major barriers to patient understanding were identified. An opportunity to ask questions regarding the treatment plan was provided. All questions were answered. The patient expressed understanding and agreement with the above treatment plan. The patient is aware they should contact our office by phone for worsening of their current condition or the appearance of new urologic symptoms. Compliance is encouraged with any medications and followup testing that is ordered. It is a privilege to participate in the urologic care of your patient. If you have any questions or concerns regarding treatment for the above conditions, or other urologic issues, please do not hesitate to contact me. The office telephone contact is [phone]. Sincerely, Dr Kenneth Rodriguez MD, DEE [facility] - Urology Compassionate Specialist Care for the Genitourinary System Coding Level of Care Code Tele Est Pt Level 4 (58838) Complex EM visit Add On G2211 Diagnoses Interstitial cystitis N30.10 Pelvic pain in female R10.2
--- OUTSIDE RECORDS SUMMARY | 2024-08-28 17:03 | XMS_ITS | Data Portability ---
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 Overview/History: 45 yo female [...] cough or fevers begin she will seek [facility] medical attn [email or web address] Not available 08/22/2021 17:51:56 10/26/2021 10/26/2021 Overview/History : 46 YO F new to provider and known to She is being seen today for ? asthma exacerbation She is c/o of sob and chest pain today mostly pleuritic she thinks however it is progressive and she eventually describes it as crushing and substernal, 10/10 pain. 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 I did ask [...] pt handed off -Expect called in to [facility] She cont to look worse and more [...] ceci Spr - Home, [address], [place], [address], 18:46:25 Referral None recorded. Procedures None recorded. Surgeries None recorded. Imaging XR, chest, 2 view - call [phone] // rule out rib fx [place]. lower left anterior 2021 [place] [facility] [employer]), [address] [facility], [place], [address], 12:52:30 Medication Orders Lidoderm 5 % topical patch 2021 [place] [id number], [address], [place], [id number], 15:56:31 Patient TargetsNo targets recorded. Patient Instructions Encounter Date Encounter Id Patient Instructions Last Modified By Organization Details Last Modified Time 08/22/2021 [id number] Back Pain - Discharge Instructions Basic Information: [...] this pain, you can find demonstrations on [employer] Weight loss will help to relieve stress [...] in your condition between 8am-10pm, please call [facility] at [phone] to help navigate your care. [email or web address] Not available 08/22/2021 15:47:10 Reason for Referral None Reported. Results Created Date Observation Date Name Description Value Unit Range Abnormal Flag Note LastModifiedBy Organization Detail LastModifiedTime 10/27/19 22 10/26/2021 rapid SARS CoV 2 Ag, QL IA, respi rator y speci men Covid-19 (ref: neg) negati ve Not Available [facility] - Home [address] [place], [address], 10/26/2021 18:46:03 10/27/19 22 10/26/2021 rapid SARS CoV 2 Ag, QL IA, respi rator y speci men Control Visual ized/V alid Not Available [facility] - Home [address] [place], [address], 10/26/2021 18:46:03 10/27/19 22 10/26/2021 rapid SARS CoV 2 Ag, QL IA, respi rator y speci men Location [facility] [place] [facility], [address] [place] [address], [id number] Not Available [facility] - Home [address] [place], [address], 10/26/2021 18:46:03 08/25/19 22 08/24/2021 XR, chest [...] KAMRON PALMA M.D. 12:39: 33 PM EDT. [email or web address] [employer] [address] [facility] [address], [place], [address], 08/24/2021 16:45:15 10/27/19 elect rocar diogr am No observ ation record ed. [email or web address] Not Available 2021 18:40:36 Result Notes Documentation Provider Name and Address Organization Details Recorded Time Xr, Chest, 2 View : XRAY CHEST 2 VIEW FINDINGS: The lungs are free of active pulmonary disease. There is no mass, infiltrate, consolidation, or effusion. There is no adenopathy, the mediastinum is normal. The osseous structures are normal. CONCLUSION: Normal chest ELECTRONICALLY SIGNED BY KAMRON PALMA M.D. 08/24/2021 12:39:33 PM EDT. XRAY CHEST 2 VIEW Results: The lungs are free of active pulmonary disease. There is no mass, infiltrate, consolidation, or effusion. There is no adenopathy, the mediastinum is normal. The osseous structures are normal. Conclusion: Normal chest Electronically signed by KAMRON PALMA M.D. 08/24/2021 12:39:33 PM EDT. JUAN RAMON Denney [address], [place], [address], [place] [facility] 08/24/2021 16:45:15 Procedures Surgical History Date Name Laterality Status Provider Name and Address Organization Details Recorded Time ECG Interpretation - DH completed JUAN RAMON Najera [address], [place], [address], [place] [facility] 10/26/2021 18:37:54 section completed JUAN RAMON Moran [address], [place], [address], [place] [facility] 10/26/2021 17:22:43 operative procedure on knee completed JUAN RAMON Najera [address], [place], [address], [place] [facility] 10/26/2021 17:22:50 Imaging Results None recorded. Procedure Notes None recorded. Medical Equipment None Reported. Allergies Allergen ID Allergen Name Allergen Category Reaction Reaction Severity Criticality Documentation Date Start Date Code Code System Note Provider Name and Address Organization Details Recorded Time 856089 sulfadiaz ine medicatio n Not available Not available Not available 10/26/2021 55816 RxNorm Fahad iraida Terrazas, [place] [address], [place], [address], [place] [facility] 2 16:59:38 605762 sertralin e medicatio n Not available Not available Not available 10/26/2021 31335 RxNorm Fahad er Nini, PA [address], [place], [address], [place] [facility] 2 16:59:46 203706 Substance with sulfonami de structure and antibacte rial mechanism of action (substanc e) medicatio n Not available Not available Not available 10/26/2021 98608 8003 SNOMED Fahadweston Terrazas, PA [address], [place], [address], [place] [facility] 2 16:59:53 456545 fentanyl medicatio n Not available Not available Not available 10/26/2021 4337 RxNorm Fahad iraida Terrazas PA [address], [place], [address], [place] [facility] 2 17:00:04 990553 Non-stero idal anti-infl ammatory agent (product) medicatio n Not available Not available Not available 10/26/2021 66118 005 SNOMED Fahadweston Terrazas PA [address], [place], [address], [place] [facility] 2 17:00:15 Medications Name Sig Start Date Stop Date Status Note LastModified by Organization Details LastModified Time quetiapine 25 mg tablet TK 1 TO 3 TS PO HS 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 Functional Status Question Answer Note LastModified by Organizat ion Details LastModified Time Do you use any illicit or recreational drugs? Yes marijuana occasionally Information not available 10/26/2021 What is your level of alcohol consumption? None Information not available 10/26/2021 Mental Status None recorded. Family History Nothing Reported. Medical History Condition Response Diabetes N Coronary Artery Disease N CHF N Parkinson's Disease N Cancer N Stroke N Dementia N Asthma Y Hypothyroidism N Depression N COPD N High Cholesterol N Rheumatoid Arthritis N Pulmonary Embolism N Hypertension Y A-fib N Osteoporosis N Kidney Disease N Gynecological HistoryNo gynecological history recorded. Obstetrics History GPAL:G 0 P 0 0 0 0 Past Encounters Encounter ID Performer Location Encounter Start Date Encounter Closed Date Diagnosis/Indication Diagnosis SNOMED-CT Code Diagnosis ICD10 Code Diagnosis Note [id number] JUAN RAMON Narvaez [facility] - [facility] [address] [place] [address] 08/22/2021 15:45:20 08/26/2021 13:50:16 Rib pain 855168855 R07.81 [id number] JUAN RAMON Blanco [facility] - [facility] [address] [place] [address] 10/26/2021 16:56:17 10/27/2021 09:46:32 Chest pain 77421721 R07.9 Dyspnea 224845033 R06.00 Sinus tachycardia 879653 01 R00.0 Health Concerns Section Related Observation LastModified by Organization Detai ls LastModified Time None Recorded Concern Status LastModified by Organization Details LastModified Time None Recorded Advance Directives Directive None Recorded Payers Insurance Date Sequence Insurance Name Policy Number Policy Leo Covered Member ID Leo Member ID Guarantor Name 08/22/2021 1 [facility] (MEDICAID [facility] Christal Tatum [id number] [employer] [place] 10/21/2020 1 [facility] (MEDICAID [facility]) Christal Tatum [id number] Eboni [place] 10/21/2020 1 *SELF PAY* Christal Cooktle [id number] Eboni [employer] 10/27/2021 1 [place] B-[place]: [employer] Eboni A Rc [id number] Eboni [place] 10/26/2021 2 MEDICAID-[place]: [facility] Eboni Tatum [id number] Eboni Tatum Notes Date Note Type Note Provider Name [...] trauma// JUAN RAMON Narvaez [address], [place], [address], [place] [facility] 08/22/2021 17:52:04 2 text/html 46 YO F new to provider [facility] ? asthma exacerbationShe is c/o of sob and chest pain today mostly pleuritic she thinks however it is progressive and she eventually describes it as crushing and substernal, 10/10 pain. 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 I did ask [...] yesterday. JUAN RAMON Najera [address], [place], [address], [place] [facility] 10/26/2021 18:50:29 OBGyn Episode No OBEpisode recorded.
== END 2024-08-28 16:07 | disposition home or self-care (01) ==
LOC: HO.HUSH 14:46
PROVIDERS: PCP Nurse Practitioner Family; Visit Provider Urology
DX: N30.10 Interstitial cystitis (chronic) without hematuria (principal); R10.2 Pelvic and perineal pain
CPT/HCPCS: 99214; G2211

== ENCOUNTER → 2024-08-28 14:46 | Outpatient (BNVA) | payer MEDICARE, MEDICAID, SELFPAY | PROVIDERS: PCP Nurse Practitioner Family; Visit Provider Urology | DX: Z13.89 Encounter for screening for other disorder (principal) ==

== ENCOUNTER 2024-08-29 12:56 | Outpatient (REF) | payer MEDICARE, MEDICAID, SELFPAY ==
[2024-08-29 13:53] LABS: Appearance Urine Cloudy; Color Urine Yellow; Glucose Urine UA Negative (Negative); Leukocyte Esterase Urine Moderate (2+) (Negative); Nitrite Urine Negative (Negative); PH 5.5 (5.0-9.0); UMIC TRIGGER UA YES; Urine Blood Moderate (2+) (Negative); Urine Ketones Negative (Negative); Urine Protein Trace mg/dL (Neg-Trace)
[2024-08-29 14:00] LABS: Bacteria Urine Trace (None Seen); Hyaline Casts Urine 0-2 /LPF (0-2); WBC Urine >50 /HPF (0-5)
[2024-08-29 14:14] LABS: Anion Gap 10 (12-20); Blood Urea Nitrogen 12 mg/dL (9-16); Carbon Dioxide 27 mmol/L (22-29); Chloride 110 mmol/L (96-108); Estimated Glomerular Filt Rate > 60; Potassium 4.2 mmol/L (3.3-5.1); Sodium 143 mmol/L (135-145)
== END 2024-08-29 12:57 | disposition home or self-care (01) ==
LOC: HO.LAB 12:56
PROVIDERS: Internal Medicine Nephrology; Absent Provider Internal Medicine Gastroenterology; PCP Nurse Practitioner Family; Visit Provider Urology
DX: N39.0 Urinary tract infection, site not specified (principal); I10 Essential (primary) hypertension; N17.9 Acute kidney failure, unspecified; B96.20 Unspecified Escherichia coli [E. coli] as the cause of diseases classified elsewhere
CPT/HCPCS: 36415; 80051; 81001; 82565; 84520; 87086; 87088; 87186

== ENCOUNTER 2024-09-04 12:06 | Day surgery (SDC) | payer MEDICARE, MEDICAID, SELFPAY ==
--- OUTSIDE RECORDS SUMMARY | 2024-08-30 16:53 | XMS_ITS | Data Portability ---
Author Organization [place] - [facility] Address [address] [place] [address] Care Team Providers Care Director Furniture Name Role Phone [facility] Primary Care Provider Assessment Encounter Date Assessment Date Assessment LastModified by Organization Details LastModified Time 08/22/2021 08/22/2021 Proper Personal Protective Equipment (PPE), including gloves, eye protection and masks were donned and doffed appropriately and all equipment cleaned using approved technique with germicidal disposable wipes prior to and after care of this patient according to [facility]'s infection prevention protocols. Overview/History: 45 yo female [...] cough or fevers begin she will seek [facility] medical attn [email or web address] Not available 08/22/2021 17:51:56 10/26/2021 10/26/2021 Overview/History : 46 YO F new to provider and known to She is being seen today for ? asthma exacerbation She is c/o of sob and chest pain today mostly pleuritic she thinks however it is progressive and she eventually describes it as crushing and substernal, 10/10 pain. 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 I did ask [...] pt handed off -Expect called in to [facility] She cont to look worse and more [...] ceci Spr - Home, [address], [place], [address], 18:46:25 Referral None recorded. Procedures None recorded. Surgeries None recorded. Imaging XR, chest, 2 view - call [phone] // rule out rib fx [place]. lower left anterior 2021 [place] [facility] [employer]), [address] [facility], [place], [address], 12:52:30 Medication Orders Lidoderm 5 % topical patch 2021 [place] [facility] [employer] [id number], [address], [place], [id number], 15:56:31 Patient TargetsNo targets recorded. Patient Instructions Encounter Date Encounter Id Patient Instructions Last Modified By Organization Details Last Modified Time 08/22/2021 [id number] Back Pain - Discharge Instructions Basic Information: Back pain is a common problem, and has many different causes. Most back pain will improve within 2 weeks of onset. Common causes include lifting, twisting movements, overuse, unusual movements, stress, prolonged sitting, poor posture, being overweight and less commonly structural issues such as disc problems(sciatica) or fractures. X-rays and MRI s are rarely indicated unless there has [...] this pain, you can find demonstrations on [employer] Weight loss will help to relieve stress [...] the first line treatment for back pain. NSAID s should be taken with food. People [...] in your condition between 8am-10pm, please call [facility] at [phone] to help navigate your care. [email or web address] Not available 08/22/2021 15:47:10 Reason for Referral None Reported. Results Created Date Observation Date Name Description Value Unit Range Abnormal Flag Note LastModifiedBy Organization Detail LastModifiedTime 10/27/19 22 10/26/2021 rapid SARS CoV 2 Ag, QL IA, respi rator y speci men Covid-19 (ref: neg) negati ve Not Available [facility] - Home [address] [facility], [place], [address], 10/26/2021 18:46:03 10/27/19 22 10/26/2021 rapid SARS CoV 2 Ag, QL IA, respi rator y speci men Control Visual ized/V alid Not Available Spr - Home [address] [facility], [place], [address], 10/26/2021 18:46:03 10/27/19 22 10/26/2021 rapid SARS CoV 2 Ag, QL IA, respi rator y speci men [facility], [address] [facility], [place] [address], [id number] Not Available Spr - Home [address] [place], [address], 10/26/2021 18:46:03 08/25/19 22 08/24/2021 XR, chest [...] KAMRON PALMA M.D. 12:39: 33 PM EDT. [email or web address] [facility] [address] [facility] [address], [place], [address], 08/24/2021 16:45:15 10/27/19 22 elect rocar diogr am No observ ation record ed. [email or web address] Not Available 2021 18:40:36 Result Notes Documentation [...] EDT. JUAN RAMON Denney [address], [place], [address], [place] [facility] 08/24/2021 16:45:15 Procedures Surgical History Date Name Laterality Status Provider Name and Address Organization Details Recorded Time ECG Interpretation - DH completed JUAN RAMON Najera [address], [place], [address], [place] [facility] 10/26/2021 18:37:54 section completed JUAN RAMON Moran [address], [place], [address], [place] [facility] 10/26/2021 17:22:43 operative procedure on knee completed JUAN RAMON Najera [address], [place], [address], [place] [facility] 10/26/2021 17:22:50 Imaging Results None recorded. Procedure Notes None recorded. Medical Equipment None Reported. Allergies Allergen ID Allergen Name Allergen Category Reaction Reaction Severity Criticality Documentation Date Start Date Code Code System Note Provider Name and Address Organization Details Recorded Time 385833 sulfadiaz ine medicatio n Not available Not available Not available 10/26/2021 97410 RxNorm Fahad iraida Terrazas, PA [address], [place], [address], [place] [facility] 2 16:59:38 128672 sertralin e medicatio n Not available Not available Not available 10/26/2021 71893 RxNorm Fahad er Nini, PA [address], [place], [address], [place] [facility] 2 16:59:46 332280 Substance with sulfonami de structure and antibacte rial mechanism of action (substanc e) medicatio n Not available Not available Not available 10/26/2021 57486 8003 SNOMED Fahadweston Terrazas PA [address], [place], [address], [place] [facility] 2 16:59:53 300059 fentanyl medicatio n Not available Not available Not available 10/26/2021 4337 RxNorm Fahad er Nini, PA [address], [place], [address], [place] [facility] 2 17:00:04 280081 Non-stero idal anti-infl ammatory agent (product) medicatio n Not available Not available Not available 10/26/2021 19721 005 SNOMED Fahad er Nini, PA [address], [place] [facility] [place], [address], [place] [facility] 2 17:00:15 Medications Name Sig Start Date Stop Date Status Note LastModified by Organization Details LastModified Time quetiapine 25 mg tablet TK 1 TO 3 TS 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 [...] N Stroke N Dementia N Asthma Y COPD N Depression N Hypothyroidism N High Cholesterol N Rheumatoid Arthritis N Pulmonary Embolism N Hypertension Y A-fib N Osteoporosis N Kidney Disease N Gynecological HistoryNo gynecological history recorded. Obstetrics History GPAL:G 0 P 0 0 0 0 Past Encounters Encounter ID Performer Location Encounter Start Date Encounter Closed Date Diagnosis/Indication Diagnosis SNOMED-CT Code Diagnosis ICD10 Code Diagnosis Note [id number] JUAN RAMON Narvaez [facility] [address] [facility] [address] 08/22/2021 15:45:20 08/26/2021 13:50:16 Rib pain 764099801 R07.81 [id number] JUAN RAMON Blanco [facility] - [facility] [address] [employer] [place] [address] 10/26/2021 16:56:17 10/27/2021 09:46:32 Chest pain 41145402 R07.9 Dyspnea 752435180 R06.00 Sinus tachycardia 676306 01 R00.0 Health Concerns Section Related Observation LastModified by Organization Detai ls LastModified Time None Recorded Concern Status LastModified by Organization Details LastModified Time None Recorded Advance Directives Directive None Recorded Payers Insurance Date Sequence Insurance Name Policy Number Policy Leo Covered Member ID Leo Member ID Guarantor Name 08/22/2021 1 [facility] (MEDICAID [place]) Christal Cooktle [id number] [employer] 10/21/2020 1 [facility] (MEDICAID [facility]) Christal Cooktle [id number] E[employer]i [employer] 10/21/2020 1 *SELF PAY* Christal Rc [id number] Eboni [employer] 10/27/2021 1 [place]: [employer] Eboni A Rc [id number] Eboni [employer] 10/26/2021 2 MEDICAID-[place]: [facility] Eboni Rc [id number] Eboni Tatum Notes Date Note Type Note [...] trauma// JUAN RAMON Narvaez [address], [place], [address], [place] [facility] 08/22/2021 17:52:04 2 text/html 46 YO F [facility] to provider [facility] ? asthma exacerbationShe is c/o of sob and chest pain today mostly pleuritic she thinks however it is progressive and she eventually describes it as crushing and substernal, 10/10 pain. 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 I did ask [...] yesterday. JUAN RAMON Najera [address], [place], [address], [place] [facility] 10/26/2021 18:50:29 OBGyn Episode No OBEpisode recorded.
--- NOTE | 2024-09-03 12:12 | HO.ANESPROP2 ---
HPI - Anesthesia Eval Consult details Narrative: 48yo F for Cystoscopy Hydrodistention of Bladder s/p same 02/2024 with GA-LMA 4 per previous chart review: Follows [facility] cardiology. Optimized for surgery per 01/2024 letter. Last office visit 12/2023, reports feeling better since hospitalization in September. On arrival to [facility] ED September 2023 she was found to have an elevated troponin I of 8700, ECG showed TWI in inferolateral leads and ST elevation in lead V2. Given that her chest pain was radiating to her back a CT angio of the chest and abdomen was obtained which showed no evidence of aortic dissection or aneurysm. CXR showed no acute abnormalities. She was started on heparin and nitroglycerin drips and [place] [facility] [place] of [place]. Hospital course complicated by prolonged QTc of 505. Echo shows a reduced EF 25-30% with severe HK to the distal 2/3 LV, sparing of the basal segment c/w stress vs. large LAD territory. Has since underwent a cardiac cath with no coronary disease found, consistent with Takotsubo. Cardiac MRI 12/2023 with LVEF 53% [facility] Active Problems Active Problems: All Active Problems (Updated 08/07/24 @ 13:51 by Serge Murillo MD) HTN (hypertension) (Acute) Colitis (Acute) Multinodular goiter (Acute) Anemia (Acute) Urge incontinence of urine (Acute) MELANY (acute kidney injury) (Acute) Diarrhea (Acute) Marginal ulcer (Acute) Malnutrition (Acute) Chronic UTI (urinary tract infection) (Acute) Lumbar spondylosis (Acute) Right knee pain (Acute) Knee pain (Acute) Visceral abdominal pain (Acute) Constipation (Acute) Therapeutic opioid-induced constipation (OIC) (Acute) Pelvic pain in female (Acute) Nocturia more than twice per night (Acute) Interstitial cystitis (Acute) Dysuria (Acute) Epigastric abdominal pain (Acute) Diarrhea associated with pseudomembranous colitis (Acute) Past Medical History Medical History Low serum cortisol level Spinal stenosis HTN (hypertension) Multinodular goiter Decreased oral intake Takotsubo cardiomyopathy Burn injury Arthritis Low back pain Elevated cholesterol SOB (shortness of breath) Asthma Numbness Mood disorder IBS (irritable bowel syndrome) OAB (overactive bladder) Sleep apnea Hypersomnia Anxiety Family History Family History Father Hx of colon cancer, stage IV Mother Family history of high blood pressure Family history of problems with anesthesia: No Surgical History Surgical History Hx of gastric bypass Hx of total knee replacement Hx of knee surgery Hx of hernia repair History of cystoscopy Hx of laparoscopic gastric banding Hx of hysterectomy History of H/O gastric bypass Hx of endoscopy History of colonoscopy History of Problems with Anesthesia: No Social History Social History Household Members: Children Household Members Other:: My son Housing: Apartment Are you a primary intensive care specialist to a significant other at home: No Do you presently have visiting nurse or other home services: Yes (youngest dtr is director home health) Alcohol intake: never Comment: previously medicated Patient Tobacco Use Status: Never used Tobacco e-Cigarette/Vaping Use: Never Used Second Hand Smoke Exposure: No Substance Use Type: Marijuana service: No Meds Allergies Allergy/AdvReac Type Severity Reaction Status Date / Time sertraline (From ZOLOFT) Allergy Intermediate prolonged Verified 09/04/24 12:35 QT interval Sulfa (Sulfonamide Allergy Intermediate RASH Verified 09/04/24 12:35 Antibiotics) (SULFA (SULFONAMIDE ANTIBIOTICS)) haloperidol (From Haldol) Allergy Mild unknown Verified 09/04/24 12:35 morphine (MORPHINE) Allergy Mild Rash Verified 09/04/24 12:35 NSAIDS (Non-Steroidal AdvReac Intermediate STOMACH Verified 09/04/24 12:35 Anti-Inflamma (NSAIDS UPSET (NON-STEROIDAL ANTI-INFLAMMA) fentanyl patch Allergy Severe Unresponsiv Uncoded 08/28/24 14:48 e Home Medications ?Medication ?Instructions ?Recorded ?Confirmed ?Last Taken ?Type albuterol sulfate 2.5 mg/3 mL 1 vial inhalation Q6H PRN 10/07/20 06/04/24 04/08/24 History (0.083 %) solution for nebulization Shortness Of Breath Or Wheezing montelukast 10 mg tablet 1 tab PO DAILY 10/07/20 06/04/24 04/08/24 History zolpidem 5 mg tablet 5 mg PO BEDTIME PRN Insomnia 09/25/21 06/04/24 04/08/24 History albuterol sulfate 90 mcg/actuation 1 inh inhalation Q4H PRN Shortness 11/26/22 06/04/24 04/08/24 History aerosol inhaler (Ventolin HFA) Of Breath pantoprazole 40 mg tablet,delayed 40 mg PO BID@0630,1630 10/14/23 06/04/24 04/08/24 History release clonazepam 1 mg tablet 1 mg PO TID@0800,1600,199904/05/24 06/04/24 04/09/24 History nortriptyline 75 mg capsule 75 mg PO BEDTIME 04/05/24 06/04/24 04/08/24 History quetiapine 100 mg tablet 100 mg PO BEDTIME 04/05/24 06/04/24 04/08/24 History estradiol 0.01% (0.1 mg/gram) 1 g vaginal MOWEFR 04/09/24 06/04/24 04/08/24 History vaginal cream fluocinolone 0.01 % topical cream 1 appl topical BID PRN Rash 04/09/24 06/04/24 04/08/24 History fluoride (sodium) 1.1 % dental 1 appl PO DAILY 04/09/24 06/04/24 04/08/24 History cream (Sodium Fluoride 5000 Plus) oxycodone 15 mg tablet 15 mg PO TID@0800,1600,199904/09/24 06/04/24 04/08/24 History oxycodone myristate 18 mg capsule 54 mg PO BID@0800,199904/09/24 06/04/24 04/08/24 History sprinkle extended release 12hr(DON'T CRUSH) (Xtampza ER) scopolamine base 1 mg over 3 days 1 patch topical Q3D 04/09/24 06/04/24 04/09/24 History transdermal patch fluticasone furoate 100 1 inh inhalation DAILY 06/04/24 06/04/24 09/04/24 07:00 History mcg/actuation blister powder for inhalation (Arnuity Ellipta) quetiapine 50 mg tablet 50 mg PO QAM 06/18/24 Unknown History amoxicillin 500 mg capsule 2,000 mg PO 09/04/24 09/04/24 09/04/24 07:00 History Exam Pertinent Lab Results Pertinent Lab Results: Laboratory Tests 06/05/24 08/29/24 07:14 13:12 WBC 8.0 Hgb 10.8 L Hct 31.3 L Plt Count 293 Sodium 143 Potassium 4.2 Chloride 110 H Carbon Dioxide 27 BUN 12 Creatinine 0.92 Narrative Narrative: MRIMRI Cardiac W+W/O Contrast ? 16:46:05 IMPRESSION: 1. The left ventricle is at the upper limit of normal in size and myocardial mass. LV wall thickness is normal. LV systolic function is normal/preserved. Quantitative LVEF 53%. No significant LV regional wall motion abnormalities. 2. The right ventricle is normal in size and systolic function. Quantitative RVEF 54%. Normal RV wall motion. 3. The left atrium is mildly dilated. 4. No visual evidence of significant valve dysfunction. 5. No T1 evidence of diffuse myocardial fibrosis. T2 images are technically inadequate for analysis. 6. No MRI evidence of myocardial infarction, myocarditis, infiltrative or hypertrophic cardiomyopathy on delayed contrast imaging. WSN: [id number] Ordering Physician: Christina Mays ? Signed By: Abigail SPENCER, Tomas Wick ECGECG 12-Lead * Preliminary * ? 10:28:57 Please click on pdf link to open report ? ECG 12-Lead * Preliminary * ? 10:28:57 Ventricular Rate: 60 BPM Atrial Rate: 60 BPM P-R Interval: 204 ms QRS Duration: 72 ms Q-T Interval: 438 ms QTC Calculation(Bazett): 438 ms P [place]: 46 degrees R [place]: 36 degrees T [place]: 49 degrees Normal sinus rhythm Nonspecific T wave abnormality Abnormal ECG When compared with ECG of 15-SEP-2023 16:09, T wave inversion no longer evident in Inferior leads T wave inversion no longer evident in Lateral leads [place]: , EchoEchocardiogram - Complete ? 09:02:55 Summary The left ventricular size is normal. The left ventricular wall thickness is upper normal. The LV systolic function is severely reduced . The left ventricular ejection fraction is 25-30 %. Severe hypokinesis to akinesis of the distal 2/3rds of the LV with sparing of the basal segments. Consider stress cardiomyopathy in the differential, but also consider ischemia of a very large LAD. Clinical correlation suggested. The global longitudinal strain (GLS) from 3D analysis is -12.2 %. There is mild apical tethering of the both leaflets of the mitral valve. There is mild mitral regurgitation. The right ventricular size and function appears grossly normal. Impressions Severe hypokinesis to akinesis of the distal 2/3rds of the LV with sparing of the basal segments. Consider stress cardiomyopathy in the differential, but also consider ischemia of a very large LAD. Clinical correlation suggested. Comparison Comparison is made to the study of June 16, 2018. Overall LV systolic function is significantly worse as detailed above. Signature ? Signed By: Lyle Zhang MD Cardiac Cath ProcedureCardiac Cath Procedure ? 08:06:00 Conclusions Diagnostic Summary No obstructive coronary artery disease (greater than 50% stenosis) Elevated LV end-diastolic pressure No significant gradient between the left ventricle and aorta upon pullback Right radial artery hemostatic with compressive device Diagnostic Recommendations No significant coronary disease was identified with presentation most consistent with stress cardiomyopathy. Continue supportive medical therapy. ACC Diagnostic Recommendations: Medical therapy and/or counseling. Complications:None. Signatures ? Signed By: Edgardo Montes MD Assessment and Plan Assessment Anesthesia Assessment: Chart Reviewed Final Anesthetic Review Family History of Problems with Anesthesia: No History of Problems with Anesthesia: No
[2024-09-04 12:23] VITALS: BMI 24.7
[2024-09-04 12:52] VITALS: BP 123/82; PULSE 68; RESP 15; TEMP 36.8; O2SAT 99
[2024-09-04] MEDS: Lactated Ringers 1,000 ML 100 ML IVCONT (12:57)
--- NOTE | 2024-09-04 13:49 | P.CONAN_ITS ---
[facility] Active Problems Active Problems: All Active Problems (Updated 09/04/24 @ 12:51 by Angelina Head MD) Low serum cortisol level (Acute) Colitis (Acute) Anemia (Acute) Urge incontinence of urine (Acute) MELANY (acute kidney injury) (Acute) Diarrhea (Acute) Marginal ulcer (Acute) Malnutrition (Acute) Chronic UTI (urinary tract infection) (Acute) Lumbar spondylosis (Acute) Right knee pain (Acute) Knee pain (Acute) Visceral abdominal pain (Acute) Constipation (Acute) Therapeutic opioid-induced constipation (OIC) (Acute) Pelvic pain in female (Acute) Nocturia more than twice per night (Acute) Interstitial cystitis (Acute) Dysuria (Acute) Epigastric abdominal pain (Acute) Diarrhea associated with pseudomembranous colitis (Acute) HTN (hypertension) (Acute) Multinodular goiter (Acute) Past Medical History Medical History Low serum cortisol level Spinal stenosis HTN (hypertension) Multinodular goiter Decreased oral intake Takotsubo cardiomyopathy Burn injury Arthritis Low back pain Elevated cholesterol SOB (shortness of breath) Asthma Numbness Mood disorder IBS (irritable bowel syndrome) OAB (overactive bladder) Sleep apnea Hypersomnia Anxiety Functional capacity: independent ambulation Patient : No Family History Family History Father Hx of colon cancer, stage IV Mother Family history of high blood pressure Family history of problems with anesthesia: No Surgical History Surgical History Hx of gastric bypass Hx of total knee replacement Hx of knee surgery Hx of hernia repair History of cystoscopy Hx of laparoscopic gastric banding Hx of hysterectomy History of H/O gastric bypass Hx of endoscopy History of colonoscopy History of Problems with Anesthesia: No Social History Social History Household Members: Children Household Members Other:: My son Housing: Apartment Are you a primary progressive care unit registered nurse to a significant other at home: No Do you presently have visiting nurse or other home services: Yes (youngest dtr is warehouse examiner) Alcohol intake: never Comment: previously medicated Patient Tobacco Use Status: Never used Tobacco e-Cigarette/Vaping Use: Never Used Second Hand Smoke Exposure: No Substance Use Type: Marijuana service: No Meds Allergies Allergy/AdvReac Type Severity Reaction Status Date / Time sertraline (From ZOLOFT) Allergy Intermediate prolonged Verified 09/04/24 12:35 QT interval Sulfa (Sulfonamide Allergy Intermediate RASH Verified 09/04/24 12:35 Antibiotics) (SULFA (SULFONAMIDE ANTIBIOTICS)) haloperidol (From Haldol) Allergy Mild unknown Verified 09/04/24 12:35 morphine (MORPHINE) Allergy Mild Rash Verified 09/04/24 12:35 NSAIDS (Non-Steroidal AdvReac Intermediate STOMACH Verified 09/04/24 12:35 Anti-Inflamma (NSAIDS UPSET (NON-STEROIDAL ANTI-INFLAMMA) fentanyl patch Allergy Severe Unresponsiv Uncoded 08/28/24 14:48 e Active Medications: Current Medications Albuterol Sulfate (Albuterol Sulfate (0.083%) 2.5 Mg/3 Ml Vial.Neb) 2.5 mg INHALE ONCE PRN PRN Reason: Shortness of Breath/Wheezing Lactated Ringer's (Lr) 1,000 mls @ 100 mls/hr IVCONT .Q10H SILVINA Last Admin: 09/04/24 12:57 Dose: 100 mls/hr Home Medications ?Medication ?Instructions ?Recorded ?Confirmed ?Last Taken ?Type albuterol sulfate 2.5 mg/3 mL 1 vial inhalation Q6H VA N 10/07/20 06/04/24 04/08/24 History (0.083 %) solution for nebulization Shortness Of Breat h Or Wheezing montelukast 10 mg tablet 1 tab PO DAILY 10/07/20 03/2 07/0604/08/24 History zolpidem 5 mg tablet 5 mg PO BEDTIME PRN Insomnia 09/25/21 06/04/24 04/08/24 History albuterol sulfate 90 mcg/actuation 1 inh inhalation Q4 H PRN Shortness 11/26/22 06/04/24 04/08/24 History aerosol inhaler (Ventolin HFA) Of Breath pantoprazole 40 mg tablet,delayed 40 mg PO BID@0630,16 30 10/14/23 06/04/24 04/08/24 History release clonazepam 1 mg tablet 1 mg PO TID@0800,1600,2000 0 04/05/24 06/04/24 04/09/24 History nortriptyline 75 mg capsule 75 mg PO BEDTIME 04/05/24 06/04/24 04/08/24 History quetiapine 100 mg tablet 100 mg PO BEDTIME 04/05/24 0 06/04/24 04/08/24 History estradiol 0.01% (0.1 mg/gram) 1 g vaginal MOWEFR 04/0906/04/24 04/08/24 History vaginal cream fluocinolone 0.01 % topical cream 1 appl topical BID P RN Rash 04/09/24 06/04/24 04/08/24 History fluoride (sodium) 1.1 % dental 1 appl PO DAILY 5 06/04/24 04/08/24 History cream (Sodium Fluoride 5000 Plus) oxycodone 15 mg tablet 15 mg PO TID@0800,1600,199904/09/24 06/04/24 04/08/24 History oxycodone myristate 18 mg capsule 54 mg PO BID@0800,20 00 04/09/24 06/04/24 04/08/24 History sprinkle extended release 12hr(DON'T CRUSH) (Xtampza ER) scopolamine base 1 mg over 3 days 1 patch topical Q3D 04/09/24 06/04/24 04/09/24 History transdermal patch fluticasone furoate 100 1 inh inhalation DAILY 06/0406/04/24 09/04/24 07:00 History mcg/actuation blister powder for inhalation (Arnuity Ellipta) quetiapine 50 mg tablet 50 mg PO QAM 06/18/24 Unkno wn History amoxicillin 500 mg capsule 2,000 mg PO 09/04/2409/04/24 07:00 History Exam Height,Weight and Vital Signs: Height 5 ft 5.5 in Weight 68.4 kg Last Vital Signs Temp 98.3 F 09/04/24 12:52 Pulse 68 09/04/24 12:52 Resp 15 09/04/24 12:52 BP 123/82 09/04/24 12:52 Pulse Ox 99 09/04/24 12:52 O2 Del Method Room Air 09/04/24 12:52 Airway Mallampati Class: III TM Dist: >3cm Neck ROM: Full Heart: RRR Lungs: CTA Assessment and Plan Assessment Anesthesia Assessment: Anesthesia Plan Discussed and Chart Reviewed Final Anesthetic Review Family History of Problems with Anesthesia: No History of Problems with Anesthesia: No NPO: Yes ASA Class: III Final Preanesthetic Review: Meds/Allgs Chart Reviewed, Consent Obtained/Reviewed and Anes Risks/Benef Reviewed
--- NOTE | 2024-09-04 14:25 | P.OP_ITS ---
Operative Note Operative Note Date of Service: 09/04/24 Narrative: PREOP DIAGNOSIS: Interstitial cystitis, pelvic pain POSTOP DIAGNOSIS: Interstitial cystitis, pelvic pain PROCEDURE: CYSTOSCOPY HYDRODISTENTION Anethesia: General Surgeon: Dr. Jeff Rodriges Details of procedure: The patient was brought into the operating room placed on the OR table in supine position. 2 g of Ancef IV. General anesthesia was administered. The patient was repositioned into lithotomy position, prepped and draped in the usual sterile fashion. Time-out was done per protocol. A 22 fr cystoscope was placed transurethrally into the bladder. Urine was drained from the bladder measuring 300 mL.The right and left ureteral orifices were visualized. The entire bladder was visualized. There were no suspicious bladder lesions seen. There were mild trabeculations noted. The bladder was filled with sterile water at 80 cm of water pressure under gravity. The bladder was distended for 2 minutes. Bladder capacity measured 950 mL. Revisualizatio n of the bladder, no glomerulations or Hunner ulcerations. The bladder was refilled with sterile water again at 80 cm of water pressure under gravity. The bladder was distended for 5 minutes. The fluid was drained from the bladder and measured 1000 mL. The cystoscope was removed. 2% lidocaine urojet was passed transurethrally, Solution of (1% lidocaine plain, 15 mL, 0.5 % Marcaine 15 mL mixed with 30, 000 units of heparin concentration 5000 units per mL total of 6 mL hepaine) instilled transurethrally into the bladder. Belladonna placed per rectum. The patient was brought out of anesthesia and taken to recovery in stable condition. Complications: None EBL: minimal (<5 mL) Drains: none
--- NOTE | 2024-09-04 14:25 | MHC.SHP ---
Pre-Procedural Eval Section A - 24 Hr Update-Section A only Date of Service: 09/04/24 The patient is an INPATIENT: No The patient has been examined within 24 hours of the surgical procedure. The History & Physical has been completed within 30 days and I have reviewed it.: Yes Section B - Complete if H&P > 30 days Chief Complaint: Interstitial cystitis (chronic) without hematuria Allergies: Allergies Allergy/AdvReac Type Severity Reaction Status Date / Time sertraline (From ZOLOFT) Allergy Intermediate prolonged Verified 09/04/24 12:35 QT interval Sulfa (Sulfonamide Allergy Intermediate RASH Verified 09/04/24 12:35 Antibiotics) (SULFA (SULFONAMIDE ANTIBIOTICS)) haloperidol (From Haldol) Allergy Mild unknown Verified 09/04/24 12:35 morphine (MORPHINE) Allergy Mild Rash Verified 09/04/24 12:35 NSAIDS (Non-Steroidal AdvReac Intermediate STOMACH Verified 09/04/24 12:35 Anti-Inflamma (NSAIDS UPSET (NON-STEROIDAL ANTI-INFLAMMA) fentanyl patch Allergy Severe Unresponsiv Uncoded 08/28/24 14:48 e Plan Diagnosis/Plan: Unchanged I have reviewed the history and physical and performed a pertinent physical examination on my patient. No changes have occurred unless specified. Cystoscopy hydrodistention. Discussed risks to include but not limited to, blood in the urine, burning with urination, urgency. Time Spent With Patient Time: Total time managing care of this patient today ____ minutes.
[2024-09-04] MEDS: ceFAZolin Sodium/Dextrose,Iso 2 GM/50 ML PIGGYBACK IV (14:37)
--- NOTE | 2024-09-04 14:51 | HO.ANESPROP2 ---
[facility] Active Problems Active Problems: All Active Problems (Updated 09/04/24 @ 12:51 by Angelina Head MD) Low serum cortisol level (Acute) Colitis (Acute) Anemia (Acute) Urge incontinence of urine (Acute) MELANY (acute kidney injury) (Acute) Diarrhea (Acute) Marginal ulcer (Acute) Malnutrition (Acute) Chronic UTI (urinary tract infection) (Acute) Lumbar spondylosis (Acute) Right knee pain (Acute) Knee pain (Acute) Visceral abdominal pain (Acute) Constipation (Acute) Therapeutic opioid-induced constipation (OIC) (Acute) Pelvic pain in female (Acute) Nocturia more than twice per night (Acute) Interstitial cystitis (Acute) Dysuria (Acute) Epigastric abdominal pain (Acute) Diarrhea associated with pseudomembranous colitis (Acute) HTN (hypertension) (Acute) Multinodular goiter (Acute) Past Medical History Medical History Low serum cortisol level Spinal stenosis HTN (hypertension) Multinodular goiter Decreased oral intake Takotsubo cardiomyopathy Burn injury Arthritis Low back pain Elevated cholesterol SOB (shortness of breath) Asthma Numbness Mood disorder IBS (irritable bowel syndrome) OAB (overactive bladder) Sleep apnea Hypersomnia Anxiety Functional capacity: independent ambulation Family History Family History Father Hx of colon cancer, stage IV Mother Family history of high blood pressure Family history of problems with anesthesia: No Surgical History Surgical History Hx of gastric bypass Hx of total knee replacement Hx of knee surgery Hx of hernia repair History of cystoscopy Hx of laparoscopic gastric banding Hx of hysterectomy History of H/O gastric bypass Hx of endoscopy History of colonoscopy History of Problems with Anesthesia: No Social History Social History Household Members: Children Household Members Other:: My son Housing: Apartment Are you a primary child care center administrator to a significant other at home: No Do you presently have visiting nurse or other home services: Yes (youngest dtr is trolley car mechanic) Alcohol intake: never Comment: previously medicated Patient Tobacco Use Status: Never used Tobacco e-Cigarette/Vaping Use: Never Used Second Hand Smoke Exposure: No Use of substances other than those prescribed or required for medical reasons: Yes Substance Use Type: Marijuana Substance Use Type Other:: last smoked 09/03/24 Are you DNR?: No Advance Directives: No Advance Directives Information Provided: Yes Patient : No service: No Meds Allergies Allergy/AdvReac Type Severity Reaction Status Date / Time sertraline (From ZOLOFT) Allergy Intermediate prolonged Verified 09/04/24 12:35 QT interval Sulfa (Sulfonamide Allergy Intermediate RASH Verified 09/04/24 12:35 Antibiotics) (SULFA (SULFONAMIDE ANTIBIOTICS)) haloperidol (From Haldol) Allergy Mild unknown Verified 09/04/24 12:35 morphine (MORPHINE) Allergy Mild Rash Verified 09/04/24 12:35 NSAIDS (Non-Steroidal AdvReac Intermediate STOMACH Verified 09/04/24 12:35 Anti-Inflamma (NSAIDS UPSET (NON-STEROIDAL ANTI-INFLAMMA) fentanyl patch Allergy Severe Unresponsiv Uncoded 08/28/24 14:48 e Active Medications: Current Medications Albuterol Sulfate (Albuterol Sulfate (0.083%) 2.5 Mg/3 Ml Vial.Neb) 2.5 mg INHALE ONCE PRN PRN Reason: Shortness of Breath/Wheezing Lactated Ringer's (Lr) 1,000 mls @ 100 mls/hr IVCONT .Q10H SILVINA Last Admin: 09/04/24 12:57 Dose: 100 mls/hr Home Medications ?Medication ?Instructions ?Recorded ?Confirmed ?Last Taken ?Type albuterol sulfate 2.5 mg/3 mL 1 vial inhalation Q6H PRN 10/07/20 06/04/24 04/08/24 History (0.083 %) solution for nebulization Shortness Of Breath Or Wheezing montelukast 10 mg tablet 1 tab PO DAILY 10/07/20 06/04/24 04/08/24 History zolpidem 5 mg tablet 5 mg PO BEDTIME PRN Insomnia 09/25/21 06/04/24 04/08/24 History albuterol sulfate 90 mcg/actuation 1 inh inhalation Q4H PRN Shortness 11/26/22 06/04/24 04/08/24 History aerosol inhaler (Ventolin HFA) Of Breath pantoprazole 40 mg tablet,delayed 40 mg PO BID@0630,1630 10/14/23 06/04/24 04/08/24 History release clonazepam 1 mg tablet 1 mg PO TID@0800,1600,199904/05/24 06/04/24 04/09/24 History nortriptyline 75 mg capsule 75 mg PO BEDTIME 04/05/24 06/04/24 04/08/24 History quetiapine 100 mg tablet 100 mg PO BEDTIME 04/05/24 06/04/24 04/08/24 History estradiol 0.01% (0.1 mg/gram) 1 g vaginal MOWEFR 04/09/24 06/04/24 04/08/24 History vaginal cream fluocinolone 0.01 % topical cream 1 appl topical BID PRN Rash 04/09/24 06/04/24 04/08/24 History fluoride (sodium) 1.1 % dental 1 appl PO DAILY 04/09/24 06/04/24 04/08/24 History cream (Sodium Fluoride 5000 Plus) oxycodone 15 mg tablet 15 mg PO TID@0800,1600,199904/09/24 06/04/24 04/08/24 History oxycodone myristate 18 mg capsule 54 mg PO BID@0800,199904/09/24 06/04/24 04/08/24 History sprinkle extended release 12hr(DON'T CRUSH) (Xtampza ER) scopolamine base 1 mg over 3 days 1 patch topical Q3D 04/09/24 06/04/24 04/09/24 History transdermal patch fluticasone furoate 100 1 inh inhalation DAILY 06/04/24 06/04/24 09/04/24 07:00 History mcg/actuation blister powder for inhalation (Arnuity Ellipta) quetiapine 50 mg tablet 50 mg PO QAM 06/18/24 Unknown History amoxicillin 500 mg capsule 2,000 mg PO 09/04/24 09/04/24 09/04/24 07:00 History Exam Height,Weight and Vital Signs: Height 5 ft 5.5 in Weight 68.4 kg Last Vital Signs Temp 98.3 F 09/04/24 12:52 Pulse 68 09/04/24 12:52 Resp 15 09/04/24 12:52 BP 123/82 09/04/24 12:52 Pulse Ox 99 09/04/24 12:52 O2 Del Method Room Air 09/04/24 12:52 Assessment and Plan Assessment Anesthesia Assessment: Anesthesia Plan Discussed, Smoking Cess. Discussed and Chart Reviewed Final Anesthetic Review Family History of Problems with Anesthesia: No History of Problems with Anesthesia: No NPO: Yes ASA Class: III Final Preanesthetic Review: Meds/Allgs Chart Reviewed, Consent Obtained/Reviewed and Anes Risks/Benef Reviewed Patient Risk: Intermediate Procedure Risk: Low Anesthetic Plan Anesthetic Plan: GA Disposition: Standard PACU
[2024-09-04 15:40] VITALS: BP 154/99; PULSE 72; RESP 16; TEMP 36.1; O2SAT 98
[2024-09-04 15:45] VITALS: BP 152/89; PULSE 67; RESP 16; O2SAT 94
[2024-09-04 15:50] VITALS: BP 152/97; PULSE 73; RESP 16; O2SAT 96
[2024-09-04 15:55] VITALS: BP 148/96; PULSE 73; RESP 16; TEMP 36.1; O2SAT 98
--- NOTE | 2024-09-04 16:01 | HO.POSTANES ---
Post Anesthesia Evaluation Post Anesthesia Evaluation Date of Service: 09/04/24 Vital Signs: Vital Signs Temp Pulse Resp BP Pulse Ox O2 Del Method 09/04/24 15:50 73 16 152/97 H 96 Room Air 09/04/24 15:45 67 16 152/89 H 94 Room Air 09/04/24 15:40 97 F 72 16 154/99 H 98 Room Air 09/04/24 12:52 98.3 F 68 15 123/82 99 Room Air Anesthesia: General LMA Mental Status: Awake Pain Control: Satisfactory Nausea/Vomiting: None Hydration: Adequate Anesthesia-Related Issues: No Anes. Related Issues
[2024-09-04] MEDS: Phenazopyridine HCL 200 MG TABLET PO (16:06)
== END 2024-09-04 16:15 | disposition home or self-care (01) ==
PROVIDERS: PCP Nurse Practitioner Family; Visit Provider Urology
PROC: 0T7B7ZZ Dilation of Bladder, Via Natural or Artificial Opening (ICD-10-PCS; CPT 52260; principal; 2024-09-04 14:50)
DX: N30.10 Interstitial cystitis (chronic) without hematuria (principal); R10.2 Pelvic and perineal pain; R35.1 Nocturia; N39.41 Urge incontinence; I10 Essential (primary) hypertension; E78.00 Pure hypercholesterolemia, unspecified; I51.81 Takotsubo syndrome; R63.8 Other symptoms and signs concerning food and fluid intake; G47.33 Obstructive sleep apnea (adult) (pediatric); F32.A Depression, unspecified; F41.9 Anxiety disorder, unspecified; Z79.899 Other long term (current) drug therapy; Z88.2 Allergy status to sulfonamides; Z88.5 Allergy status to narcotic agent; Z88.6 Allergy status to analgesic agent; Z88.8 Allergy status to other drugs, medicaments and biological substances; Z98.84 Bariatric surgery status; Z98.890 Other specified postprocedural states
CPT/HCPCS: 52260; 87086; J0690; J1644; J2003; J2250; J2405; J2704; J2795; J3010

== ENCOUNTER → 2024-09-04 12:06 | Outpatient (BNV) | payer MEDICARE, MEDICAID, SELFPAY | PROVIDERS: PCP Nurse Practitioner Family; Visit Provider Urology | DX: N30.10 Interstitial cystitis (chronic) without hematuria (principal) | CPT/HCPCS: 52260 ==

== ENCOUNTER 2024-09-18 14:10 | Outpatient (AMB) | payer MEDICARE, MEDICAID, SELFPAY ==
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
[2024-09-18 14:14] VITALS: BP 100/70; PULSE 83; O2SAT 98; BMI 23.8
--- OUTSIDE RECORDS SUMMARY | 2024-09-18 15:02 | XMS_ITS | Clinical Summary ---
Author Organization [facility] Address [address] [place] [address] Care Team Providers Care Ethylbenzene Cracking Supervisor Name Role Phone Unavailable Primary Care Provider [...] [phone] 02/18/2022 3:06 PM EST Temperature 36 C (96.8 F) 02/18/2022 3:06 PM EST Respiratory Rate 18 [...] season) 2023 07/13/2020, 06/21/2020 Influenza Vaccine (#1) 2024 , 04/26/2019, 12/27/2017, Additional history exists Pneumococcal Vaccine Aged Out No long er eligible based on patient's age to complete this topic RSV Ped < 20 months Aged Out No longe r eligible based on patient's age to complete this topic
--- OUTSIDE RECORDS SUMMARY | 2024-09-18 15:02 | XMS_ITS | Clinical Summary ---
Author Organization [facility] Address [address] [place] [address] Phone Care Team Providers Care Retail Business Analyst Name Role Phone Lisseth Nassar SURVEY RESEARCH ASSOCIATE Primary Care Provider [phone] Allergies Active Allergy Reactions Criticality Noted Date Comments Divalproex Palpitations High 08/16/2024 Haloperidol Anxiety Low 02/15/2022 Other Reaction(s): Feeling Irritable Morphine Low 08/12/2020 Redness around the site Nsaids (Non-Steroidal Anti-Inflammatory Drug) Other 09/08/2020 GI bleeding Sertraline Other 09/08/2020 Other Reaction(s): QT wave change interferes withQT waves of heart changed my QT 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 Active clonazePAM (KlonoPIN) 1 mg tablet Take 1 tablet (1 mg total) by mouth 3 (three) times a day if needed for anxiety. Active estradioL (ESTRACE) 0.01 % (0.1 mg/gram) vaginal cream Insert 1 g into the vagina 3 (three) times a week. 4 Active hydrOXYzine pamoate (VISTARIL) 25 mg capsule Take 1 capsule (25 mg total) by mouth at bedtime. Active oxyCODONE (ROXICODONE) 15 mg immediate release tablet Take 1 tablet (15 mg total) by mouth every 8 (eight) hours if needed. 5 Active Xtampza ER 18 mg capsule,sprinkl e,ER 12hr tmprr Take 54 mg by mouth 2 (two) times a day. Max Daily Amount: 108 mg 5 Active QUEtiapine (SEROquel) 100 mg tablet Take 1 tablet (100 mg total) by mouth at bedtime. Active spironolactone (ALDACTONE) 25 mg tablet Take 0.5 tablets (12.5 mg total) by mouth 1 (one) time each day. 4 Active tamsulosin (FLOMAX) 0.4 mg 24 hr capsule Take 1 capsule (0.4 mg total) by mouth at bedtime. Active zolpidem (AMBIEN) 5 mg tablet Take 1 tablet (5 mg total) by mouth at bedtime as needed for sleep. 2 Active amLODIPine (NORVASC) 2.5 mg tablet Take 1 tablet (2.5 mg total) by mouth 1 (one) time each day. Active fesoterodine 4 mg tablet extended release 24 hr Take 1 tablet by mouth 1 (one) time each day. Active fluticasone furoate (ARNUITY ELLIPTA) 100 mcg/actuation blister with device inhaler Inhale 1 puff by mouth 1 (one) time each day. Active hydrocortisone (CORTEF) 5 mg tablet Take 2 tablets (10 mg total) by mouth 1 (one) time each day. @8AM Active hydrocortisone (CORTEF) 5 mg tablet Take 1 tablet (5 mg total) by mouth 1 (one) time each day after lunch. @3pm Active naloxegoL (MOVANTIK) 25 mg tablet Take 1 tablet (25 mg total) by mouth 1 (one) time each day. Active pantoprazole (PROTONIX) 40 mg EC tablet Take 1 tablet (40 mg total) by mouth 2 (two) times daily before breakfast and lunch. Active mesalamine (APRISO) 0.375 gram 24 hr capsule Take 4 capsules (1.5 g total) by mouth 3 (three) times a day. 5 Active sucralfate (CARAFATE) 1 gram tablet Take 1 tablet (1 g total) by mouth 2 (two) times a day before meals. 2 Active nortriptyline (PAMELOR) 75 mg capsule Take 1 capsule (75 mg total) by mouth. at bedtime Active esomeprazole (NexIUM) [address] capsule TAKE 40MG BY MOUTH DAILY OPEN CAPULE AND MIX WITH APPLE SAUCE Active famotidine (PEPCID) 40 mg tablet Take 1 tablet (40 mg total) by mouth. 2 Active cholecalciferol (VITAMIN D-3) 1,250 mcg (50,000 unit) capsule TAKE 1 CAPSULE BY MOUTH 1 TIME A WEEK 4 Active QUEtiapine (SEROquel) 50 mg tablet Take 1 tablet (50 mg total) by mouth 1 (one) time each day. Active HYDROmorphone (DILAUDID) 2 mg tabletIndicatio ns:S/P small bowel resection Take 1 tablet (2 mg total) by mouth every 4 (four) hours if needed (severe breakthrough pain). Max Daily Amount: 12 mg 16 tablet 5 Active Active Problems Problem Noted Date Diagnosed Date Hx of gastric bypass 07/13/2024 Stress-induced cardiomyopathy 07/05/2024 Pancreatitis 07/05/2024 Osteoarthritis of knee 07/05/2024 Obstructive sleep apnea 07/05/2024 GERD (gastroesophageal reflux disease) 5 DDD (degenerative disc disease), lumbar 07/06/19 25 Chronic abdominal pain 06/24/2024 Acute renal failure ([facility] V24) 03/17/2024 Acute kidney injury ([facility] V24) 03/17/2024 NSTEMI (non-ST elevated myoc ardial infarction) ([facility] V24, [facility] V28) 11/23/2023 Hypertensive disorder 10/26/2018 Overview (07/05/2024): Status: 'A'; Low back pain 03/05/2016 Overview (07/05/2024): Problem Code: M54.5; Problem Code Type: ICD-10; Status: 'A'; Resolved Problems Problem Noted Date Diagnosed Date Resolved Date Intussusception (CMS/HCC V24, CMS/HCC V28) 07/03/2024 07/16/2024 Generalized abdominal pain 06/25/2024 0 06/28/2024 Encounters Date Type Department Care Team Description 08/16/2024 4:00 PM EDT Office Visit Bariatric Surgery [address] [phone] Fela Allen MD S/P small bowel resection (Primary Dx); Postgastrectomy malabsorption 07/26/2024 9:00 AM EDT Office Visit Bariatric Surgery [address] [phone] Fela Allen MD S/P small bowel resection (Primary Dx) 07/17/2024 Telephone Bariatric Surgery [address] [phone] Fela Allen MD Post-op Problem (Pt is s/p DAVINCI REVISION OF JEJUNOJEJUNOSTOMY was just d/c and can't hold anything down and in a lot of pain) 07/13/2024 7:33 AM EDT Anesthesia Event [facility] Main OR [address] [place] [phone] Abraham Barger MD Vermes, Rachie [facility] 07/13/2024 7:30 AM EDT - 07/13/2024 10:30 AM EDT Surgery [facility] Main OR [address] [place] [phone] Fela Allen MD DAVINCI REVISION OF JEJUNOJEJUNOSTOMY [[id number] (CPT )] 07/13/2024 5:35 AM EDT - 07/16/2024 12:58 PM EDT Hospital Encounter [facility] Surgical Unit [address] [place] [phone] Fela Allen MD Hx of gastric bypass; Intussusception (CMS/HCC V24, CMS/[facility] V28) Discharge Disposition: Home or Self Care 07/03/2024 1:15 PM EDT Office Visit Bariatric Surgery - [place] [address] [facility] [address] [place] [phone] Fela Allen MD Intussusception intestine ([facility] V24, [facility] V28) (Primary Dx) 06/24/2024 4:28 AM EDT - 06/28/2024 1:43 PM EDT Hospital Encounter [facility] [address] [place] [phone] Deric Weaver MD Bukalo, Nermina, MD Kela, Kashyap Devendrabhai, MD Generalized abdominal pain (Primary Dx); Acute vomiting; Chronic generalized abdominal pain Discharge Disposition: Home or Self Care from Last 3 Months Surgical History Surgery Date Site/Laterality Comments BREAST REDUCTION PROCEDURE: LA BREAST REDUCTION LAPAROSCOPIC GASTRIC BANDING PROCEDURE: LAP ADJUSTABLE GASTRIC BAND SLEEVE GASTROPLASTY 03/14/2015 - 03/13/2016 Converted from lap band GASTRIC BYPASS 01/29/2022 Conversion of sleeve gastrectomy to vazquez-en-Y gastric bypass HIATAL HERNIA REPAIR 06/05/2021 SECTION, LOW TRANSVERSE x5 TOTAL KNEE ARTHROPLASTY Left HYSTERECTOMY PARTIAL HYSTERECTOMY Medical History Medical History Date Comments HTN (hypertension) DX:HTN (hyper tension) Anxiety DX:Anxiety Depression DX:Depression Opioid type dependence, cont inuous ([facility] V24, [facility] V28) Chronic abdominal pain Non-ischemic cardiomyopathy ([facility] V24, [facility] V28) Irritable bowel syndrome GERD (gastroesophageal reflux disease) Low serum cortisol level Interstitial cystitis VA (myocardial infarction) ([facility] V24, [facility] V28) GI bleed Family History Medical History Relation Name Comments Lung cancer Father Diabetes Mother Heart disease Mother Relation Name Status Comments Father Mother Social History Tobacco Use Types Packs/Day Years Used Date Smoking Tobacco: Never Smokeless Tobacco: Never Alcohol Use Standard Drinks/Week Comments Not Currently 0 (1 standard drink = 0.6 oz pur e alcohol) Food Risk Answer Date Recorded Within the past 12 months we worried whether our food would run out before we got money to buy more. Never true 07/15/2024 Within the past 12 months th e food we bought just didn't last and we didn't have money to get more. Never true 07/15/2024 Interpersonal Safety Answer Date Record ed Physical Abuse 07/13/2024 Verbal Abuse 07/13/2024 Comments No Sex and Gender Information Value Date Recorded Sex Assigned at Female 03/16/2024 7:40 PM EST Legal Sex Female 11:01 PM EST Gender Identity Female 03/16/2024 7:40 PM EST Sexual Orientation Straight 03/16/2024 7: 40 PM EST Obstetrics History Last Filed Vital Signs Vital Sign Reading Time Taken Comments Blood Pressure 103/69 08/16/2024 3:58 PM EDT Pulse 93 08/16/2024 3:58 PM EDT Temperature 36.6 C (97.8 F) 08/16/2024 3:58 PM EDT Respiratory Rate 17 07/16/2024 7:40 AM EDT Oxygen Saturation 98% 07/16/2024 7:40 AM EDT Inhaled Oxygen Concentration - - Weight 65.8 kg (145 lb) 08/16/2024 3:58 PM EDT Height 165.1 cm (5' 5 ) 08/16/2024 3:58 PM EDT Body Mass Index 24.13 08/16/2024 3:58 PM EDT Plan of Treatment Health Maintenance Due Date Last Done Comments Breast Cancer Screening 1976 Hepatitis A Vaccines (1 of 2 - Risk 2-dose series) 10/05/1995 Pneumococcal Vaccine: Pediatrics (0 to 5 Years) and At-Risk Patients (6 to 49 Years) (1 of 2 - PCV) 10/05/1995 Cervical Cancer Screening: Pap Smear 1997 Hepatitis B Vaccines (3 of 3 - 19+ 3-dose series) 02/18/2010 12/24/2009, 10/19/2004 Cholesterol Screening (Lipid Panel) 02/20/2022 Colorectal Cancer Screening: Colonoscopy 02/20/2022 Depression Screening 02/20/2022 HIV Screening 02/20/2022 Hepatitis C Screening 02/20/2022 Medicare Annual Wellness Visit 02/20/2022 COVID-19 Vaccine ( season) 2023 02/26/2022, 04/09/2021, 07/13/2020, Additional history exists Influenza Vaccine (#1) 2024 , 05/30/2023, 04/14/2022, Additional history exists Social Influencers of Health Screening 07/15/2025 07/15/2024 Hypertension/CHF/CAD Annual BMP Blood Test 07/16/2025 07/16/2024, 07/15/2024, 07/14/2024, Additional history exists DTaP,Tdap,and Td Vaccines (3 - Td or Tdap) 09/03/2030 09/03/2020, 05/29/2013 HIB Vaccines Aged Out No longer eligi [...] age to complete this topic Meningococcal B Vaccine Aged Out No l onger eligible based on patient's age to complete this topic RSV Immunization Patients Under 20 months Aged Out No longer eligible based on patient's age to complete this topic Varicella Vaccines Aged Out No longer eligible based on patient's age to complete this topic Medical Devices Implanted Type Area Bundle Sorter Device Identifier Shelf Expiration Date Model / Serial / Lot Arthroscopy Implants Sports Med Arthroscopy Implants Sports Med Left: Knee Description:LEFT KNEE REPLAC EMENT Procedures Procedure Name Priority Date/Time Associated Diagnosis Comments LAVENDER - EDTA Routine 07/16/2024 6:33 AM EDT EXTRA TUBES Routine 07/16/2024 6:33 AM EDT BASIC METABOLIC PANEL Routine 07/16/2024 6:33 AM EDT MAGNESIUM Routine 07/16/2024 6:33 AM EDT LAVENDER - EDTA Routine 07/15/2024 6:07 AM EDT EXTRA TUBES Routine 07/15/2024 6:07 AM EDT MAGNESIUM Routine 07/15/2024 6:07 AM EDT BASIC METABOLIC PANEL Routine 07/15/2024 6:07 AM EDT CBC WITH AUTO DIFFERENTIAL Routine 07/14/2024 6:09 AM EDT COMPLETE BLOOD COUNT Timed 07/14/2024 6:09 AM EDT BASIC METABOLIC PANEL Routine 07/14/2024 6:09 AM EDT CBC AND DIFFERENTIAL Routine 07/14/2024 6:09 AM EDT PHOSPHORUS Routine 07/14/2024 6:09 AM EDT MAGNESIUM Routine 07/14/2024 6:09 AM EDT POCT GLUCOSE BLOOD Routine 07/13/2024 7: 30 PM EDT TISSUE EXAM Routine 07/13/2024 10:20 AM EDT Intussusception (CMS/HCC V24, CMS/HCC V28) ANESTHESIA PERIPHERAL IV PLACEMENT Routine 07/13/2024 8:11 AM EDT TH AN ENDOTRACHEAL(NO CHARGE) Routine 07/13/2024 8:11 AM EDT LA LAP SURG CLOSURE OF ENTEROSTOMY LG/SM INTEST W RESECTION & ANASTOMOSIS 07/13/2024 7:30 AM EDT Intussusception (CMS/HCC V24, CMS/HCC V28) TYPE AND SCREEN Routine 07/13/2024 6:49 AM EDT Hx of gastric bypass MAGNESIUM Routine 07/13/2024 6:49 AM EDT Hx of gastric bypass BASIC METABOLIC PANEL Routine 07/13/2024 6:49 AM EDT Hx of gastric bypass ECG ANNOTATED 06/29/2024 CBC WITH AUTO DIFFERENTIAL Routine 06/28/2024 5:24 AM EDT MAGNESIUM Timed 06/28/2024 5:24 AM EDT CBC AND DIFFERENTIAL Routine 06/28/2024 5:24 AM EDT BASIC METABOLIC PANEL Routine 06/28/2024 5:24 AM EDT CBC WITH AUTO DIFFERENTIAL Routine 06/27/2024 5:20 AM EDT MAGNESIUM Timed 06/27/2024 5:20 AM EDT CBC AND DIFFERENTIAL Routine 06/27/2024 5:20 AM EDT BASIC METABOLIC PANEL Routine 06/27/2024 5:[address] ABDOMEN PELVIS W CONTRAST STAT 06/26/2024 5:06 PM EDT LACTATE Routine 06/26/2024 4:11 PM EDT CBC WITH AUTO DIFFERENTIAL Routine 06/26/2024 5:54 AM EDT MAGNESIUM Timed 06/26/2024 5:54 AM EDT CBC AND DIFFERENTIAL Routine 06/26/2024 5:54 AM EDT BASIC METABOLIC PANEL Routine 06/26/2024 5:54 AM EDT DRUG ABUSE SCREEN 8A PANEL, URINE Routine 06/25/2024 11:35 AM EDT COMPLETE BLOOD COUNT Routine 06/25/2024 6:37 AM EDT BASIC METABOLIC PANEL Routine 06/25/2024 6:[address] ABDOMEN PELVIS W CONTRAST STAT 06/24/2024 5:38 PM EDT TROPONIN I HIGH SENSITIVITY STAT 06/24/2024 6:24 AM EDT TROPONIN I HIGH SENSITIVITY STAT 06/24/2024 5:01 AM EDT CBC WITH AUTO DIFFERENTIAL STAT 06/24/2024 5:01 AM EDT LIPASE STAT 06/24/2024 5:01 AM EDT TYPE AND SCREEN STAT 06/24/2024 5:01 AM EDT COMPREHENSIVE METABOLIC PANEL STAT 06/24/2024 5:01 AM EDT CBC AND DIFFERENTIAL STAT 06/24/2024 5:01 AM EDT ECG 12-LEAD STAT 06/24/2024 4:40 AM EDT from Last 3 Months Results * Lavender tube (07/16/2024 6:33 AM EDT) Only the most recent of2 resultswithin the time period is included. Pathologist [facility] Extra Tube Hold for add-ons. 07/16/2024 8:01 AM EDT [facility] Comment:Auto resulted. Blood Venous blood specimen / Unknown Venipuncture / Unknown 07/16/2024 6:33 AM EDT 07/16/2024 6:55 AM EDT us Fela Allen MD LAB BLOOD ORDERABLES Final R esult [facility] [address] [place] [address], [place] [phone] * Magnesium (07/16/2024 6:33 AM EDT) Only the most recent of7 resultswithin the time period is included. Pathologist [facility] Magnesium 2.2 1.9 - 2.6 mg/dL LAB CHEMISTRY METHOD 07/16/2024 7:33 AM EDT [facility] Blood Venous blood specimen / Unknown Venipuncture / Unknown 07/16/2024 6:33 AM EDT 07/16/2024 6:54 AM EDT us Saritha DELATORRE LAB BLOOD ORDERABLES Final R esult [facility] [address] [place] [address], [place] [phone] * Basic metabolic panel (07/16/2024 6:33 AM EDT) Only the most recent of8 resultswithin the time period is included. Sodium 136 133 - 145 mmol/L LAB CHEMISTRY METHOD 07/16/2024 7:33 AM [facility] Potassium 3.8 3.5 - 5.5 mmol/L LAB CHEMISTRY METHOD 07/16/2024 7:33 AM [facility] Chloride 101 96 - 110 mmol/L LAB CHEMISTRY METHOD 07/16/2024 7:33 AM [facility] CO2 27 21 - 32 mmol/L LAB CHEMISTRY METHOD 07/16/2024 7:33 AM [facility] Anion Gap 8 3 - 11 LAB CHEMISTRY METHOD 07/16/2024 7:33 AM [facility] Glucose 98 70 - 100 mg/dL LAB CHEMISTRY METHOD 07/16/2024 7:33 AM [facility] BUN 12 5 - 25 mg/dL LAB CHEMISTRY METHOD 07/16/2024 7:33 AM [facility] Creatinine 1.01 0.50 - 1.10 mg/dL LAB CHEMISTRY METHOD 07/16/2024 7:33 AM [facility] eGFR 69 >=60 mL/min/1. 73m2 LAB CHEMISTRY METHOD 07/16/2024 7:33 AM [facility] Comment:Calculation based on the Chronic Kidney Disease Epidemiology Collaboration (CKD-EPI) equation refit without adjustment for race. BUN/Creatinine Ratio 11.9 LAB CHEMISTRY METHOD 07/16/2024 7:33 AM T [facility] Calcium 8.6 8.5 - 10.5 mg/dL LAB CHEMISTRY METHOD 07/16/2024 7:33 AM [facility] Blood Venous blood specimen / Unknown Venipuncture / Unknown 07/16/2024 6:33 AM EDT 07/16/2024 6:54 AM EDT us Saritha DELATORRE LAB BLOOD ORDERABLES Final R esult [facility] [address] [place] [address], [place] [phone] * (ABNORMAL) CBC auto differential (07/14/2024 6:09 AM EDT) Only the most recent of5 resultswithin the time period is included. WBC 8.3 4.8 - 10.8 K/mcL LAB HEMETOLOGY METHOD 07/14/2024 7:33 AM [facility] RBC 4.30 3.80 - 4.80 M/mcL LAB HEMETOLOGY METHOD 07/14/2024 7:33 AM [facility] Hemoglobin 12.2 11.5 - 16.0 g/dL LAB HEMETOLOGY METHOD 07/14/2024 7:33 AM [facility] Hematocrit 36.7 35.0 - 47.0 % LAB HEMETOLOGY METHOD 07/14/2024 7:33 AM [facility] MCV 85.2 79.0 - 98.0 FL LAB HEMETOLOGY METHOD 07/14/2024 7:33 AM [facility] MCH 28.3 27.0 - 32.0 pcg LAB HEMETOLOGY METHOD 07/14/2024 7:33 AM [facility] MCHC 33.2 32.0 - 37.0 g/dL LAB HEMETOLOGY METHOD 07/14/2024 7:33 AM [facility] RDW 15.8(H) 11.0 - 15.0 % LAB HEMETOLOGY METHOD 07/14/2024 7:33 AM [facility] Platelets 166 130 - 400 K/mcL LAB HEMETOLOGY METHOD 07/14/2024 7:33 AM [facility] MPV 10.0 7.0 - 11.0 FL LAB HEMETOLOGY METHOD 07/14/2024 7:33 AM [facility] NRBC 0.0 <1.0 % LAB HEMETOLOGY METHOD 07/14/2024 7:33 AM [facility] NRBC Absolute 0.00 <0.10 K/mcL LAB HEMETOLOGY METHOD 07/14/2024 7:33 AM [facility] Neutrophils Relative 60.5 % LAB HEMETOLOGY METHOD 07/14/2024 7:33 AM [facility] Lymphocytes Relative 25.5 % LAB HEMETOLOGY METHOD 07/14/2024 7:33 AM [facility] Monocytes Relative 13.1 % LAB HEMETOLOGY METHOD 07/14/2024 7:33 AM [facility] Eosinophils Relative 0.1 % LAB HEMETOLOGY METHOD 07/14/2024 7:33 AM [facility] Basophils Relative 0.4 % LAB HEMETOLOGY METHOD 07/14/2024 7:33 AM [facility] Immature Granulocytes Relative 0.4 % LAB HEMETOLOGY METHOD 07/14/2024 7:33 AM [facility] Neutrophils Absolute 5.05 1.50 - 7.00 K/mcL LAB HEMETOLOGY METHOD 07/14/2024 7:33 AM EDT [facility] Lymphocytes Absolute 2.12 1.00 - 5.00 K/[facility] LAB HEMETOLOGY METHOD 07/14/2024 7:33 AM EDT [facility] Monocytes Absolute 1.09(H) 0.20 - 1.00 K/mcL LAB HEMETOLOGY METHOD 07/14/2024 7:33 AM EDT [facility] Eosinophils Absolute 0.01 0.00 - 0.50 K/[facility] LAB HEMETOLOGY METHOD 07/14/2024 7:33 AM EDT [facility] Basophils Absolute 0.03 0.00 - 0.20 K/[facility] LAB HEMETOLOGY METHOD 07/14/2024 7:33 AM EDT [facility] Immature Granulocytes Absolute 0.03 0.00 - 0.03 K/[facility] HEMETOLOGY METHOD 07/14/2024 7:33 AM T [facility] Blood Venous blood specimen / Unknown Venipuncture / Unknown 07/14/2024 6:09 AM EDT 07/14/2024 7:14 AM EDT us JUAN RAMON Morton LAB BLOOD ORDERABLES Final Result [facility] [address] [place] [address], * (ABNORMAL) CBC - Every 3 Days (07/14/2024 6:09 AM EDT) Only the most recent of2 resultswithin the time period is included. WBC 8.3 4.8 - 10.8 K/mcL LAB HEMETOLOGY METHOD 07/14/2024 7:33 AM EDT [facility] RBC 4.30 3.80 - 4.80 M/mcL LAB HEMETOLOGY METHOD 07/14/2024 7:33 AM EDT [facility] Hemoglobin 12.2 11.5 - 16.0 g/dL LAB HEMETOLOGY METHOD 07/14/2024 7:33 AM EDT [facility] Hematocrit 36.7 35.0 - 47.0 % LAB HEMETOLOGY METHOD 07/14/2024 7:33 AM [facility] MCV 85.2 79.0 - 98.0 FL LAB HEMETOLOGY METHOD 07/14/2024 7:33 AM EDT [facility] MCH 28.3 27.0 - 32.0 pcg LAB HEMETOLOGY METHOD 07/14/2024 7:33 AM EDT [facility] MCHC 33.2 32.0 - 37.0 g/dL LAB HEMETOLOGY METHOD 07/14/2024 7:33 AM [facility] RDW 15.8(H) 11.0 - 15.0 % LAB HEMETOLOGY METHOD 07/14/2024 7:33 AM [facility] Platelets 166 130 - 400 K/mcL LAB HEMETOLOGY METHOD 07/14/2024 7:33 AM [facility] MPV 10.0 7.0 - 11.0 FL LAB HEMETOLOGY METHOD 07/14/2024 7:33 AM [facility] NRBC 0.0 <1.0 % LAB HEMETOLOGY METHOD 07/14/2024 7:33 AM T [facility] NRBC Absolute 0.00 <0.10 K/mcL LAB HEMETOLOGY METHOD 07/14/2024 7:33 AM [facility] Blood Venous blood specimen / Unknown Venipuncture / Unknown 07/14/2024 6:09 AM EDT 07/14/2024 7:14 AM EDT us JUAN RAMON Morton LAB BLOOD ORDERABLES Final Result [facility] [address] [place] [address], [place] [phone] * Phosphorus (07/14/2024 6:09 AM EDT) [facility] Phosphorus 3.8 2.5 - 4.5 mg/dL LAB CHEMISTRY METHOD 07/14/2024 7:59 AM EDT [facility] Blood Venous blood specimen / Unknown Venipuncture / Unknown 07/14/2024 6:09 AM EDT 07/14/2024 7:14 AM EDT JUAN RAMON Morton LAB BLOOD ORDERABLES Final Result Performing Organization Address [facility]/ZIP Co de Phone Number [facility] [address] [place] [address], [place] [phone] * (ABNORMAL) POCT Glucose, blood (07/13/2024 7:30 PM EDT) [facility] Glucose POCT 115(H) 70 - 100 mg/dL 07/13/2024 7:30 PM EDT [facility] Blood Capillary blood specimen / Unknown 07/13/2024 7:30 PM EDT 07/13/2024 7:31 PM EDT eFla Allen MD LAB POINT OF CARE TE ST DOCKED DEVICE UNSOLICITED RESULTS Final Result Performing Organization Address City/[facility]/ZIP Co de Phone Number [facility] [address] [place] [address], [place] [phone] * Tissue exam (07/13/2024 10:20 AM EDT) [facility] Final Diagnosis Jejunum, small bowel, segmental resection: Portion of previously anastomosed small bowel with vascular congestion, clinically intussusception. No enteritis or mass lesions are identified. Margins appear viable. 07/16/2024 3:18 PM EDT [facility] Gross Description A. Small Intestine, Jejunum, small bowel: Labeled small bow jejunum . Received in formalin is an unoriented, 8.0 cm in length segment of small bowel which is stapled at both marginal ends (arbitrarily assigned M1 and M2 by the prosector). The serosa is smooth, morley-red and focally hemorrhagic with minimal adhesions and minimal attached mesentery. Centrally there is an additional 3.0 cm in length staple line. On opening M1 has a luminal circumference of 2.5 cm and M2 has a luminal circumference of 3.5 cm. The mucosa is red and hemorrhagic. There is a central 5.5 cm in length intact anastomotic line adjacent to the central external staple line. Polyps, masses and diverticula are absent. An intussusception is not appreciated. M1 is inked black and M2 is inked blue. The additional staple line is removed and inked green. Digital photographs are taken. Water Well Driller sections are submitted in four cassettes. 1-policy services representative sections of M1 and M2, taken perpendicularly, two pieces 2-anastomotic line, one piece 3-additional staple line (inked green), taken perpendicularly, one piece 4-attached mesentery, multiple pieces TS 07/16/2024 3:18 PM EDT [facility] Disclaimer Unless otherwise specified, all tissue is 10% NB formalin fixed and paraffin embedded. 07/16/2024 3:18 PM EDT [facility] Tissue Jejunal structure / Unknown 07/13/2024 10:20 AM EDT 07/13/2024 11:38 AM EDT us Fela Allen MD LAB PATHOLOGY ORDERABLES Fin al Result [facility] [address] [place] [address], * Peripheral IV (07/13/2024 8:11 AM EDT) Narrative Sia Dejesus CRNA - 07/13/2024 8:11 AM EDT Sia Dejesus CRNA 07/13/2024 8:12 AM Peripheral IV Placement Needle size: 20 G Laterality: left Location: hand Local anesthetic: none Site prep: alcohol Technique: anatomical landmarks Attempts: 1 Abraham Barger MD ANESTHESIA ORDERABLES Final Re sult * TH AN ENDOTRACHEAL(NO CHARGE) (07/13/2024 8:11 AM EDT) Narrative Sia Dejesus CRNA - 07/13/2024 8:11 AM EDT Sia Dejesus CRNA 07/13/2024 8:11 AM General Information and Staff Patient location during procedure: OR Performed by: Sia Dejesus CRNA Authorized by: Abraham Barger MD Intubation Airway not difficult Urgency: elective Final Airway Details Successful airway: ETT Cuffed: yes Successful intubation technique: direct laryngoscopy Facilitating devices/methods: intubating stylet Endotracheal tube insertion site: oral Blade: Bettie Blade size: #3 ETT size (mm): 7.0 Cormack-Lehane Classification: grade I - full view of glottis Placement verified by: chest auscultation and capnometry Number of attempts at approach: 1Final airway type: endotracheal airway Indications and Patient Condition Indications for airway management: anesthesia Spontaneous Ventilation: absent Sedation level: Yes Preoxygenated: yes Soft Tissue Damage: No Dentition Unchanged: Yes Patient position: neutral MILS maintained throughout Mask difficulty assessment: 1 - vent by mask Abraham Barger MD ANESTHESIA ORDERABLES Final Re sult * Type and screen (07/13/2024 6:49 AM EDT) Only the most recent of2 resultswithin the time period is included. ABO Group B 07/13/2024 8:30 AM EDT [facility] Rh Type Positive 07/13/2024 8:30 AM EDT [facility] Antibody Screen Negative 07/13/2024 8:30 AM EDT [facility] Blood Venous blood specimen / Unknown Venipuncture / Unknown 07/13/2024 6:49 AM EDT 07/13/2024 7:01 AM EDT [facility] BLOOD BANK TEST ORDERABL ES Final Result [facility] [address] [place] [address], * ECG-Annotated (06/29/2024) Provider Onbase ECG ORDERABLES Final Result * CT Abdomen Pelvis w Contrast (06/26/2024 5:06 PM EDT) Only the most recent of2 resultswithin the time period is included. Anatomical Region Laterality Modality Body Computed Tomogra phy 06/26/2024 5:43 PM EDT Impressions 06/26/2024 5:43 PM EDT Impression: No small bowel intussusception. No obstruction. Mildly increased stool quantity may indicate constipation. This document has been electronically signed by: Marisol Mcdermott MD on 06/26/2024 17:43:56 Narrative 06/26/2024 5:43 PM EDT INDICATION: LUQ abdominal pain CT abdomen and pelvis with contrast Comparison: CT - CT ABD PEL W CONTRAST - 06/24/24 17:36 EDT US - US RETROPERITONEAL COMPLETE - 03/17/24 01:38 EST Findings: No consolidation at the lung bases. Unremarkable gallbladder and bladder. Focal fat at the falciform ligament. Subcentimeter low attenuating lesion in the spleen which is too small to characterize. No hydronephrosis or nephrolithiasis. Status post hysterectomy. The other solid organs are unremarkable. Small amount of contrast in the distal esophagus may indicate gastroesophageal reflux. Status post Vazquez-en-Y gastrojejunostomy. Oral contrast reaches the distal small bowel. No small bowel intussusception. No bowel wall thickening or dilation. The appendix is not visualized. No secondary signs of acute appendicitis. Mildly increased stool quantity. No aneurysm. No calcified atherosclerotic disease. No lymphadenopathy. No ascites. No acute osseous abnormality. Foci of air in the anterior abdominal wall, likely secondary to recent injections. Procedure Note Marisol Max MD - 06/26/2024 INDICATION: LUQ abdominal pain CT abdomen and pelvis with contrast Comparison: CT - CT ABD PEL W CONTRAST - 06/24/24 17:36 EDT US - US RETROPERITONEAL COMPLETE - 03/17/24 01:38 EST Findings: No consolidation at the lung bases. Unremarkable gallbladder and bladder. Focal fat at the falciformligament. Subcentimeter low attenuating lesion in the spleen which is too small to characterize. No hydronephrosis or nephrolithiasis. Status post hysterectomy. The other solid organs are unremarkable. Small amount of contrast in the distal esophagus may indicate gastroesophageal reflux. Status post Vazquez-en-Y gastrojejunostomy. Oral contrast reaches the distal small bowel. No small bowel intussusception. No bowel wall thickening or dilation. The appendix is not visualized. No secondary signs of acute appendicitis. Mildly increased stool quantity. No aneurysm. No calcified atherosclerotic disease. No lymphadenopathy. No ascites. No acute osseous abnormality. Foci of air in the anterior abdominalwall, likely secondary to recent injections. IMPRESSION: Impression: No small bowel intussusception. No obstruction. Mildly increased stool quantity may indicate constipation. This document has been electronically signed by: Marisol Mcdermott MD on 06/26/2024 17:43:56 us [facility] IMG CT PROCEDURES Final Re sult * Lactate (06/26/2024 4:11 PM EDT) [facility] Lactate 1.5 0.4 - 2.0 mmol/L LAB CHEMISTRY METHOD 06/26/2024 4:57 PM EDT [facility] Blood Venous blood specimen / Unknown Venipuncture / Unknown 06/26/2024 4:11 PM EDT 06/26/2024 4:24 PM EDT us Ana [facility] LAB BLOOD ORDERABLES Final Result [facility] [address] [place] [address], [place] [phone] * (ABNORMAL) Drug abuse screen 8a panel, urine (06/25/2024 11:35 AM EDT) [facility] Amphetamine Screen, Ur Negative Negative LAB CHEMISTRY METHOD 5 6:39 PM [facility] Comment:Certain OTC medicati ons containing ephedrine, phenylephrine, pseudoephedrine and phenylpropanolamine can cause false positive results. Barbiturate Screen, Ur Negative Negative LAB CHEMISTRY METHOD 5 6:39 PM [facility] Benzodiazepine Screen, Ur Negative Negative LAB CHEMISTRY METHOD 5 6:39 PM [facility] Cocaine Screen, Ur Negative Negative LAB CHEMISTRY METHOD 5 6:39 PM [facility] Opiate Screen, Ur Positive(A ) Negative LAB CHEMISTRY METHOD 5 6:39 PM [facility] Cannabinoid (THC) Screen, Ur Positive(A ) Negative LAB CHEMISTRY METHOD 5 6:39 PM [facility] Comment:Specimens from patie nts taking pantoprazole sodium (Protonix) have been shown to produce false positive results. Oxycodone Screen, Ur Positive(A ) Negative LAB CHEMISTRY METHOD 5 6:39 PM [facility] Fentanyl, Ur Negative Negative LAB CHEMISTRY METHOD 5 6:39 PM [facility] Urine Urine specimen obtained by clean catch procedure / Unknown Non-blood Collection / Unknown 06/25/2024 11:35 AM EDT 06/25/2024 11:59 AM EDT [facility] - 06/25/2024 6:39 PM EDT Assay cutoffs: Amphetamines 1000 ng/mL Barbiturates 200 ng/mL Benzodiazepines 200 ng/mL Cocaine 300 ng/mL Fentanyl 1 ng/mL Opiates 300 ng/mL Oxycodone 100 ng/mL THC 50 ng/mL Semi-quantitative assay for screening purposes only. Unconfirmed screening result should not be used for non-medical purposes. *ALTERNATE METHOD CONFIRMATION DONE UPON REQUEST ONLY* us Ana [facility] LAB URINE ORDERABLES Final Result Performing Organization Address [facility]/ZIP Co de Phone Number [facility] [address] [place] [address], [place] [phone] * Troponin I high sensitivity (NOW and then in 1 hour) (06/24/2024 6:24 AM EDT) Only the most recent of2 resultswithin the time period is included. [facility] High Sensitivity Troponin I 5 <=54 ng/L LAB CHEMISTRY METHOD 06/24/2024 8:16 AM EDT [facility] Blood Venous blood specimen / Unknown Venipuncture / Unknown 06/24/2024 6:24 AM EDT 06/24/2024 7:26 AM EDT Narrative [facility] - 06/24/2024 8:16 AM EDT High levels of biotin in samples may falsely decrease hsTroponin values. Use caution when interpreting hsTroponin results in patients taking biotin who exhibit renal impairment (eGFR <60) or in patients taking more than 20 mg/day of biotin. us Edgardo Cervantes DO LAB BLOOD ORDERABLES Final Res ult Performing Organization Address [facility] Co de Phone Number [facility] [address] [place] [address], [place] [phone] * Lipase (06/24/2024 5:01 AM EDT) [facility] Lipase 30 13 - 75 unit/L LAB CHEMISTRY METHOD 06/24/2024 6:02 AM EDT [facility] Blood Venous blood specimen / Unknown Venipuncture / Unknown 06/24/2024 5:01 AM EDT 06/24/2024 5:32 AM EDT us Edgardo Cervantes DO LAB BLOOD ORDERABLES Final Res ult Performing Organization Address City/[facility]/ZIP Co de Phone Number [facility] [address] [place] [address], [place] [phone] * (ABNORMAL) Comprehensive metabolic panel (06/24/2024 5:01 AM EDT) Sodium 133 133 - 145 mmol/L LAB CHEMISTRY METHOD 06/24/2024 6:02 AM [facility] Potassium 3.5 3.5 - 5.5 mmol/L LAB CHEMISTRY METHOD 06/24/2024 6:02 AM [facility] Chloride 99 96 - 110 mmol/L LAB CHEMISTRY METHOD 06/24/2024 6:02 AM [facility] CO2 27 21 - 32 mmol/L LAB CHEMISTRY METHOD 06/24/2024 6:02 AM [facility] Anion Gap 7 3 - 11 LAB CHEMISTRY METHOD 06/24/2024 6:02 AM [facility] Glucose 156(H) 70 - 100 mg/dL LAB CHEMISTRY METHOD 06/24/2024 6:02 AM [facility] BUN 10 5 - 25 mg/dL LAB CHEMISTRY METHOD 06/24/2024 6:02 AM [facility] Creatinine 0.79 0.50 - 1.10 mg/dL LAB CHEMISTRY METHOD 06/24/2024 6:02 AM [facility] eGFR 93 >=60 mL/min/1. 73m2 LAB CHEMISTRY METHOD 06/24/2024 6:02 AM [facility] Comment:Calculation based on the Chronic Kidney Disease Epidemiology Collaboration (CKD-EPI) equation refit without adjustment for race. BUN/Creatinine Ratio 12.7 LAB CHEMISTRY METHOD 06/24/2024 6:02 AM [facility] Calcium 9.4 8.5 - 10.5 mg/dL LAB CHEMISTRY METHOD 06/24/2024 6:02 AM [facility] AST (SGOT) 14 10 - 42 unit/L LAB CHEMISTRY METHOD 06/24/2024 6:[facility] ALT (SGPT) 21 10 - 60 unit/L LAB CHEMISTRY METHOD 06/24/2024 6:02 AM [facility] Alkaline Phosphatase 97 42 - 121 unit/L LAB CHEMISTRY METHOD 06/24/2024 6:[facility] Total Protein 8.4(H) 6.0 - 8.0 g/dL LAB CHEMISTRY METHOD 06/24/2024 6:02 AM [facility] Albumin 4.3 3.2 - 5.0 g/dL LAB CHEMISTRY METHOD 06/24/2024 6:02 AM [facility] Total Bilirubin 0.3 0.0 - 1.4 mg/dL LAB CHEMISTRY METHOD 06/24/2024 6:02 AM [facility] Blood Venous blood specimen / Unknown Venipuncture / Unknown 06/24/2024 5:01 AM EDT 06/24/2024 5:32 AM EDT us Edgardo Cervantes DO LAB BLOOD ORDERABLES Final Res ult [facility] [address] [place] [address], * ECG 12 lead (06/24/2024 4:40 AM EDT) Ventricular Rate ECG 82 BPM GEMUSE Atrial Rate 82 BPM GEMUSE P-R Interval 178 ms GEMUSE QRS Duration 72 ms GEMUSE Q-T Interval 390 ms GEMUSE QTc 455 ms GEMUSE P Wave [place] -4 degrees GEMUSE R [place] 12 degrees GEMUSE T [place] 24 degrees GEMUSE ECG Interpretation Normal sinus rhythm Normal ECG When compared with ECG of 03-JUN-2024 17:27, No significant change was found Confirmed by Nahid SMITH JOHN ([id number]) on 06/25/2024 4:04:46 PM GEMUSE 06/24/2024 4:40 AM EDT 06/25/2024 4:04 PM EDT us Edgardo Ramon Romeroyarely DO ECG ORDERABLES Final Result GEMUSE from Last 3 Months Insurance MEDICARE MEDICAID - [place] Advance Directives * Full Code - Default (Latest Code Status on File) Date Activated Date Inactivated Comments 07/13/2024 11:11 AM 07/16/2024 2:59 PM This is order is used when code status has not been discussed with the patient, or code status is otherwise unknown/unconfirmed To update the patient's code status, place a code status order. Do not modify or discontinue any currently active code status orders. * Full Code - Default Date Activated Date Inactivated Comments 07/13/2024 6:27 AM 07/13/2024 11:11 AM This is order is used when code status has not been discussed with the patient, or code status is otherwise unknown/unconfirmed To update the patient's code status, place a code status order. Do not modify or discontinue any currently active code status orders. * Full Code - Default Date Activated Date Inactivated Comments 06/24/2024 12:37 PM 06/28/2024 3:53 PM This is ord er is used when code status has not been discussed with the patient, or code status is otherwise unknown/unconfirmed To update the patient's code status, place a code status order. Do not modify or discontinue any currently active code status orders. * Full Code - Default Date Activated Date Inactivated Comments 03/17/2024 1:26 AM 03/19/2024 5:51 PM This is order is used when code status has not been discussed with the patient, or code status is otherwise unknown/unconfirmed To update the patient's code status, place a code status order. Do not modify or discontinue any currently active code status orders. Care Teams Retail Business Analyst Relationship Specialty Start Date End Date Lisseth Nassar NP [address] [place] [address] PCP - General 07/07/21
--- OUTSIDE RECORDS SUMMARY | 2024-09-18 15:02 | XMS_ITS | Data Portability ---
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 Overview/History: 45 yo female [...] cough or fevers begin she will seek [facility] [email or web address] Not available 08/22/2021 17:51:56 10/26/2021 10/26/2021 Overview/History : 46 YO F new to provider and known to She is being seen today for ? asthma exacerbation She is c/o of sob and chest pain today mostly pleuritic she thinks however it is progressive and she eventually describes it as crushing and substernal, 10/10 pain. She did go to [facility] last night where she waited [...] but she does report she has a torch brazer for heart issues . I did ask [...] Chest pain w/ SOB: -Pt has SEVERE, 10/10 substernal chest pain during visit -Intially called [...] pt handed off -Expect called in to [facility] She cont to look worse and more [...] 2021 ceci [facility] - Home, [address] [place], [address], 18:46:25 Referral None recorded. Procedures None recorded. Surgeries None recorded. Imaging XR, chest, 2 view - call // rule out rib fx [place]. lower left anterior 2021 [facility] [employer] [address] [place], [address], 12:52:30 Medication Orders Lidoderm 5 % topical patch 2021 ORMS[id number], [address] [place], [place], [id number], 15:56:31 Patient TargetsNo targets recorded. Patient Instructions Encounter Date Encounter Id Patient Instructions Last Modified By Organization Details Last Modified Time 08/22/2021 [id number] Back Pain - Discharge Instructions Basic Information: [...] having pain/numbness going down your legs the Samai exercises are designed to relieve this pain, you can find demonstrations on [employer] Weight loss will help to relieve stress [...] in your condition between 8am-10pm, [facility] [phone] to help navigate your care. Not available 08/22/2021 15:47:10 Reason for Referral None Reported. Results Created Date Observation Date Name Description Value Unit Range Abnormal Flag Note LastModifiedBy Organization Detail LastModifiedTime 10/27/19 22 10/26/2021 rapid SARS CoV 2 Ag, QL IA, respi rator y speci men Covid-19 (ref: neg) negati ve Not Available [facility] - [facility] [address] [place], [address], 10/26/2021 18:46:03 10/27/19 22 10/26/2021 rapid SARS CoV 2 Ag, QL IA, respi rator y speci men Control Visual ized/V alid Not Available [facility] - [address] [place], [address], 10/26/2021 18:46:03 10/27/19 22 10/26/2021 rapid SARS CoV 2 Ag, QL IA, respi rator y speci men Location [facility], [facility], [address] [place] [address], [phone] [facility] [address] [place], [address], 10/26/2021 18:46:03 08/25/19 22 08/24/2021 XR, chest [...] KAMRON PALMA M.D. 12:39: 33 PM EDT. [email or web address] [facility]arp [facility] [address] [facility] [address], [place], [address], 08/24/2021 16:45:15 10/27/19 elect rocar diogr am [...] EDT. JUAN RAMON Denney [address], [place], [address], [place] [facility] 08/24/2021 16:45:15 Procedures Surgical History Date Name Laterality Status Provider Name and Address Organization Details Recorded Time ECG Interpretation - DH completed JUAN RAMON Najera [address], [place], [address], [place] [facility] 10/26/2021 18:37:54 section completed JUAN RAMON Moran [address], [place], [address], [place] [facility] 10/26/2021 17:22:43 operative procedure on knee completed JUAN RAMON Najera [address], [place], [address], [place] [facility] 10/26/2021 17:22:50 Imaging Results None recorded. Procedure Notes None recorded. Medical Equipment None Reported. Allergies Allergen ID Allergen Name Allergen Category Reaction Reaction Severity Criticality Documentation Date Start Date Code Code System Note Provider Name and Address Organization Details Recorded Time [id number] sulfadiaz ine medicatio n Not available Not available Not available 10/26/2021 70133 RxNorm Fahad er Nini, PA [address], [place], [address], [place] [facility] 2 16:59:38 935220 sertralin e medicatio n Not available Not available Not available 10/26/2021 32893 RxNorm Fahad er Nini, PA [address], [place], [address], [place] [facility] 2 16:59:46 163464 Substance with sulfonami de structure and antibacte rial mechanism of action (substanc e) medicatio n Not available Not available Not available 10/26/2021 36336 8003 SNOMED Fahadweston Terrazas, PA [address], [place], [address], [place] [facility] 2 16:59:53 234553 fentanyl medicatio n Not available Not available Not available 10/26/2021 4337 RxNorm Fahad iraida Terrazas, PA [address], [place], [address], [place] [facility] 2 17:00:04 826783 Non-stero idal anti-infl ammatory agent (product) medicatio n Not available Not available Not available 10/26/2021 39035 005 SNOMED Fahad er Nini, PA [address], [place], [address], [place] [facility] 2 17:00:15 Medications Name Sig Start Date Stop Date Status Note LastModified by Organization Details LastModified Time quetiapine 25 mg tablet TK 1 TO 3 TS PO HS 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 active Not Available Not Available No t [...] in Arterial blood by Pulse oximetry Systolic And Diastolic Provider Name and Address Organization Details Last Updated DateTime 2 16 /min 100 /min 97.3 [degF] 97 % 97 % 124/84 mm[Hg] Not Available [facility] 15:54:01 Date Recorded Body temperature Oxygen saturation Oxygen saturation in Arterial blood by Pulse oximetry Heart rate Respiratory rate Systolic And Diastolic Provider Name and Address Organization Details Last Updated DateTime 2 98.6 [degF] 98 % 98 % 116 /min 16 /min 144/96 mm[Hg] Not Available [facility] 2 17:34:30 Social History None recorded. Functional Status Question Answer Note LastModified by Organizat ion Details LastModified Time Do you use any illicit or recreational drugs? Yes marijuana occasionally Information not available 10/26/2021 What is your level of alcohol consumption? None Information not available 10/26/2021 Mental Status None recorded. Family History Nothing Reported. Medical History Condition Response Coronary Artery Disease N Depression N COPD N Hypothyroidism N A-fib N Cancer N Stroke N High Cholesterol N Rheumatoid Arthritis N Kidney Disease N Parkinson's Disease N Diabetes N CHF N Dementia N Asthma Y Pulmonary Embolism N Hypertension Y Osteoporosis N Gynecological HistoryNo gynecological history recorded. Obstetrics History GPAL:G 0 P 0 0 0 0 Past Encounters Encounter ID Performer Location Encounter Start Date Encounter Closed Date Diagnosis/Indication Diagnosis SNOMED-CT Code Diagnosis ICD10 Code Diagnosis Note [id number] JUAN RAMON Narvaez [facility] [address] [facility] [place] [address] 08/22/2021 15:45:20 08/26/2021 13:50:16 Rib pain 770847345 R07.81 [id number] JUAN RAMON Blanco [facility] [address] [place] [address] 10/26/2021 16:56:17 10/27/2021 09:46:32 Chest pain 58167218 R07.9 Dyspnea 298596236 R06.00 Sinus tachycardia 221044 01 R00.0 Health Concerns Section Related Observation LastModified by Organization Detai ls LastModified Time None Recorded Concern Status LastModified by Organization Details LastModified Time None Recorded Advance Directives Directive None Recorded Payers Insurance Date Sequence Insurance Name Policy Number Policy Leo Covered Member ID Leo Member ID Guarantor Name 08/22/2021 1 [facility] (MEDICAID O) Christal Tatum [id number] Eboni Tatum 10/21/2020 1 [facility] (MEDICAID O) Christal Tatum [id number] Eboni Rc 10/21/2020 1 *SELF PAY* Christal Tatum [id number] Eboni Rc 10/27/2021 1 MEDICARE B-[place]: [facility] [employer] [facility] Eboni A Rc [id number] Eboni Rc 10/26/2021 2 [place] [facility] Eboni [place] [id number] Eboni Tatum Notes Date Note Type Note [...] trauma// JUAN RAMON Narvaez [address], [place], [address], [place] [facility] 08/22/2021 17:52:04 2 text/html 46 YO F new to provider and [facility] ? asthma exacerbationShe is c/o of sob and chest pain today mostly pleuritic she thinks however it is progressive and she eventually describes it as crushing and substernal, 10/10 pain. She did go to [facility] last night where she waited [...] but she does report she has a torch brazer for heart issues . I did ask [...] yesterday. JUAN RAMON Najera [address], [place], [address], [place] [facility] 10/26/2021 18:50:29 OBGyn Episode No OBEpisode recorded.
== END 2024-09-18 14:47 | disposition home or self-care (01) ==
LOC: HO.ENCR 14:11
PROVIDERS: PCP Nurse Practitioner Family; Visit Provider Student in an Organized Health Care Education/Training Program
DX: R79.89 Other specified abnormal findings of blood chemistry (principal); E04.2 Nontoxic multinodular goiter
CPT/HCPCS: 99213

== ENCOUNTER → 2024-09-18 14:10 | Outpatient (BNVA) | payer MEDICARE, MEDICAID, SELFPAY | PROVIDERS: PCP Nurse Practitioner Family; Visit Provider Student in an Organized Health Care Education/Training Program | DX: R79.89 Other specified abnormal findings of blood chemistry (principal); E04.2 Nontoxic multinodular goiter | CPT/HCPCS: 99212 ==

== ENCOUNTER 2024-11-27 12:19 | Outpatient (AMB) | payer MEDICARE, MEDICAID, SELFPAY ==
--- NOTE | 2024-11-27 12:23 | HO.NEPHOV ---
Vital Signs 11/27/24 12:29 Height 5 ft 5 in Weight 140 lb BMI 23.3 BP 90/60 Blood Pressure Location Lt brachial Position Sitting Pulse 76 Pulse Source Pulse Oximeter Pulse Oximetry (%) 96 Oxygen Delivery Method Room Air Intake Visit Reasons: follow up-[facility] Product Marketing Intern Required: No Accompanied by: Self / Same As Patient Allergies sertraline (From ZOLOFT) Allergy (Intermediate, Verified 11/27/24 12:29) prolonged QT interval Sulfa (Sulfonamide Antibiotics) (SULFA (SULFONAMIDE ANTIBIOTICS)) Allergy (Intermediate, Verified 11/27/24 12:29) RASH haloperidol (From Haldol) Allergy (Mild, Verified 11/27/24 12:29) unknown morphine (MORPHINE) Allergy (Mild, Verified 11/27/24 12:29) Rash NSAIDS (Non-Steroidal Anti-Inflamma (NSAIDS (NON-STEROIDAL ANTI-INFLAMMA) Adverse Reaction (Intermediate, Verified 11/27/24 12:29) STOMACH UPSET fentanyl patch Allergy (Severe, Uncoded 09/18/24 14:16) Unresponsive HPI Comments Details: 49 year old with history of chronic gastritis, anxiety, depression, history of lap band removal, hypertension, FLOWER, bipolar disorder as well as interstitial cystitis who follows up closely with Urology for her cystitis, was seen in follow up for hypertension. She had normal renal functions but hsa H/O MELANY which has been resolved. She has been having BP spikes when her pain control is not optimal. She is on pain medications. She feels she needs long acting pain medications. She claims to have family history of renal dysfunction ( Mom). There was no family history of any sensorineural deafness, Alport syndrome, thin membrane disease. She is not a diabetic. 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 She denies taking excessive nonsteroidal anti-inflammatories. She has H/O intuscusseption and underwent intervention including revision of gastric surgery by Dr Allen. She also had been started on mesalamine. [facility] Medical History Low serum cortisol level Spinal stenosis HTN (hypertension) Multinodular goiter Decreased oral intake Takotsubo cardiomyopathy Burn injury Arthritis Low back pain Elevated cholesterol SOB (shortness of breath) Asthma Numbness Mood disorder IBS (irritable bowel syndrome) OAB (overactive bladder) Sleep apnea Hypersomnia Anxiety Surgical History Hx of gastric bypass Hx of total knee replacement Hx of knee surgery Hx of hernia repair History of cystoscopy Hx of laparoscopic gastric banding Hx of hysterectomy History of H/O gastric bypass Hx of endoscopy History of colonoscopy Family History Father Hx of colon cancer, stage IV Mother Family history of high blood pressure Social History Household Members: Children Household Members Other:: My son Housing: Apartment Are you a primary care aide to a significant other at home: No Do you presently have visiting nurse or other home services: Yes (youngest dtr is home visit field care manager) Alcohol intake: never Comment: previously medicated Patient Tobacco Use Status: Never used Tobacco e-Cigarette/Vaping Use: Never Used Second Hand Smoke Exposure: No Substance Use Type: Marijuana service: No Review of Systems Const All systems reviewed & are unremarkable except as noted in HPI and below Physical Exam Const General: comfortable and no acute distress Orientation/consciousness: patient oriented x3 HEENT Head: Yes normocephalic Mouth: Normal oral and palatal mucosa present Eyes EOM: EOMs intact bilaterally Neck Neck: Yes supple Resp Auscultation: clear to auscultation bilaterally Cardio Jugular venous distension: no JVD Rate: regular rate GI Palpation (GI): Soft to palpation Auscultation: normal bowel sounds General: Yes no CVA tenderness Back/Spine/Pelvis Back: no CVA tenderness Skin General skin exam: no rashes or lesions noted Neuro General: patient oriented x3 and moves all extremities Extrem General: Yes no pedal edema Results Reviewed Nephrology Results: Sodium, (135-145) 143 mmol/L 08/29/24 Potassium, (3.3-5.1) 4.2 mmol/L 08/29/24 Chloride, (96-108) 110 mmol/L H 08/29/24 Carbon Dioxide, (22-29) 27 mmol/L 08/29/24 BUN, (9-16) 12 mg/dL 08/29/24 Creatinine, (0.5-1.4) 0.92 mg/dL 06/18/25 Urine Protein, (Neg-Trace) Trace mg/dL 08/29/24 Renal US 04/19/23 Assessment & Plan Assessment & Plan (1) HTN (hypertension): Code(s): I10 - Essential (primary) hypertension Category: Medical Qualifiers: Hypertension type: primary hypertension Qualified Code(s): I10 - Essential (primary) hypertension (2) Low serum cortisol level: Code(s): R79.89 - Other specified abnormal findings of blood chemistry Category: Medical Plan Her renal functions is at baseline now. Her last renal ultrasound was normal. She has not known to have blood or protein in the urine. She is known to have interstitial cystitis for which she is closely followed up by her urologist. She avoids nonsteroidal anti-inflammatories . I asked her to C/W Carvedilol 6.25 mg bid & amlodipine 2.5 mg daily in noon time . She had an ECHO/Cardiac MRI. Her serum potassium is normal. I did not make any other medication changes today.I answered all questions Orders: Orders Creatinine 3 Months I10 - Essential (primary) hypertension Blood Urea Nitrogen 3 Months I10 - Essential (primary) hypertension Electrolytes 3 Months I10 - Essential (primary) hypertension Coding Level of Care Code Est Pt Level 4 (68459) Diagnoses Primary hypertension I10 Hypertension type: primary hypertension Low serum cortisol level R79.89
[2024-11-27 12:29] VITALS: BP 90/60; PULSE 76; O2SAT 96; BMI 23.3
--- OUTSIDE RECORDS SUMMARY | 2024-11-27 16:22 | XMS_ITS | Clinical Summary ---
Author Organization [facility] Address [address] [place] [address] Phone Care Team Providers Care Quarry Manager Name Role Phone Lisseth Nassar TRANSPLANT REGISTERED NURSE Primary Care Provider [phone] Allergies Active Allergy Reactions Criticality Noted Date Comments Divalproex Palpitations High 08/16/2024 Fentanyl Fainting,Other,Anaph y laxis High 02/09/2022 Haloperidol Anxiety Low 02/15/2022 Other Reaction(s): Feeling Irritable Morphine Low 08/12/2020 Redness around the site Nsaids (Non-Steroidal Anti-Inflammatory Drug) Other 09/08/2020 GI bleeding Sertraline Other 09/08/2020 Other Reaction(s): QT wave change interferes withQT waves of heart changed my QT interval has a pipe out worker changed my QT interval has a pipe out worker Sulfa (Sulfonamide Antibiotics) Rash Low 09/08/2020 Sulfamethoxazole-Tri methoprim Rash High 09/08/2020 Medications carvediloL (COREG) 12.5 [...] Chronic abdominal pain 06/24/2024 Acute renal failure ([facility] V24) 03/17/2024 Acute kidney injury ([facility] V24) 03/17/2024 NSTEMI (non-ST elevated myoc ardial infarction) ([facility] V24, [facility] V28) 11/23/2023 Hypertensive disorder 10/26/2018 Overview (07/05/2024): Status: 'A'; Low back pain 03/05/2016 Overview (07/05/2024): Problem Code: M54.5; Problem Code Type: ICD-10; Status: 'A'; Resolved Problems Problem Noted Date Diagnosed Date Resolved Date Intussusception ([facility] V24, [facility] V28) 07/03/2024 07/16/2024 Generalized abdominal pain 06/25/2024 0 06/28/2024 Encounters Date Type Department Care Team Description 11/12/2024 8:06 AM EDT - 11/12/2024 2:14 PM EDT Emergency [facility] [address] [place] [phone] Indra Beach MD Generalized abdominal pain (Primary Dx) Discharge Disposition: Home or Self Care 11/07/2024 11:30 AM EDT Office Visit [facility] - [place] [address] [place] [phone] Tomas Edmond DO from Last 3 Months Surgical History Surgery Date Site/Laterality Comments BREAST REDUCTION PROCEDURE: [place] BREAST REDUCTION LAPAROSCOPIC GASTRIC BANDING PROCEDURE: LAP [...] Depression DX:Depression Opioid type dependence, cont inuous ([facility] V24, [facility] V28) Chronic abdominal pain Non-ischemic cardiomyopathy ([facility] V24, [facility] V28) Irritable bowel syndrome GERD (gastroesophageal reflux disease) Low serum cortisol level Interstitial cystitis NC (myocardial infarction) ([facility] V24, [facility] V28) GI bleed Family History Medical History [...] Sign Reading Time Taken Comments Blood Pressure 218/121 11/12/2024 12:57 PM EDT Pulse 68 11/12/2024 12:57 PM EDT Temperature 36.9 C (98.4 F) 11/12/2024 8:21 AM EDT Respiratory Rate 18 11/12/2024 12:57 PM EDT Oxygen Saturation 98% 11/12/2024 12:57 PM EDT Inhaled Oxygen Concentration - - Weight 63.5 kg (140 lb) 11/12/2024 8:21 AM EDT Height 165.1 cm (5' 5 ) 11/12/2024 8:21 AM EDT Body Mass Index 23.3 11/12/2024 8:21 AM EDT Plan of Treatment Health Maintenance Due [...] Panel) 02/20/2022 Colorectal Cancer Screening: Colonoscopy 02/20/2022 HIV Screening 02/20/2022 Hepatitis C Screening 02/20/2022 Medicare Annual Wellness Visit 02/20/2022 Depression Screening 03/14/2024 COVID-19 Vaccine ( season) 2024 02/26/2022, 04/09/2021, 07/13/2020, Additional history exists Influenza Vaccine (#1) 2024 , 05/30/2023, 04/14/2022, Additional history exists Social Influencers of Health Screening 07/15/2025 07/15/2024 Hypertension/CHF/CAD Annual BMP Blood Test 11/12/2025 11/12/2024, 07/16/2024, 07/15/2024, Additional history exists DTaP,Tdap,and Td Vaccines (3 [...] this topic Medical Devices Implanted Type Area Game Designer Device Identifier Shelf Expiration Date Model / Serial / Lot Arthroscopy Implants Sports Med Arthroscopy Implants Sports Med Left: Knee Description:LEFT KNEE REPLAC EMENT Procedures Procedure Name Priority Date/Time Associated Diagnosis Comments ECG ANNOTATED 11/13/2024 ECG 12-LEAD STAT 11/12/2024 12:[address] ABDOMEN PELVIS W CONTRAST STAT 11/12/2024 9:58 AM EDT M[facility]OY URINE CULTURE TUBE STAT 11/12/2024 9:31 AM EDT URINALYSIS WITH REFLEX MICROSCOPIC AND CULTURE STAT 11/12/2024 9:31 AM EDT URINALYSIS WITH REFLEX MICROSCOPIC AND CULTURE STAT 11/12/2024 9:31 AM EDT HCG, SERUM, QUALITATIVE STAT Add-on 11/12/2024 8:42 AM EDT TROPONIN I HIGH SENSITIVITY STAT 11/12/2024 8:42 AM EDT LACTATE, WITH REFLEX STAT 11/12/2024 8:42 AM EDT CBC WITH AUTO DIFFERENTIAL STAT 11/12/2024 8:42 AM EDT LIPASE STAT 11/12/2024 8:42 AM EDT COMPREHENSIVE METABOLIC PANEL STAT 11/12/2024 8:42 AM EDT CBC AND DIFFERENTIAL STAT 11/12/2024 8:42 AM EDT from Last 3 Months Results * ECG-Annotated (11/13/2024) us Provider Onbase MD ECG ORDERABLES Final Result * ECG 12 lead (11/12/2024 12:34 PM EDT) Ventricular Rate ECG 67 BPM GEMUSE Atrial Rate 67 BPM GEMUSE P-R Interval 174 ms GEMUSE QRS Duration 88 ms GEMUSE Q-T Interval 450 ms GEMUSE QTc 475 ms GEMUSE P Wave [place] -6 degrees GEMUSE R [place] 45 degrees GEMUSE T [place] 40 degrees GEMUSE ECG Interpretation Normal sinus rhythm Minimal voltage criteria for LVH, may be normal variant T wave abnormality, consider anterior ischemia Abnormal ECG When compared with ECG of 24-JUN-2024 04:40, No significant change was found Confirmed by MAGALYS GOODEN ([id number]) on 11/12/2024 5:04:29 PM GEMUSE 11/12/2024 12:3 4 PM EDT 11/12/2024 5:04 PM EDT us Rosangela DELATORRE ECG ORDERABLES Final Result GEMUSE * CT Abdomen Pelvis w Contrast (11/12/2024 9:58 AM EDT) Anatomical Region Laterality Modality Body Computed Tomogra phy 11/12/2024 10:1 6 AM EDT Impressions 11/12/2024 10:26 AM EDT Previous gastric bypass surgery. No definite abscess or pneumoperitoneum. No evidence of high-grade obstruction. -------- FINAL REPORT -------- Dictated By: Tristin Rowley Dictated Date: 11/12/2024 10:16 ET Assigned Physician: Tristin Rowley Reviewed and Electronically Signed By: Tristin Rowley Signed Date: 11/12/2024 10:26 ET Workstation ID: [id number] Transcribed By: Self Edit Transcribed Date: 11/12/2024 10:16 ET Narrative 11/12/2024 10:26 AM EDT EXAMINATION: CT ABDOMEN/PELVIS WITH IV CONTRAST CLINICAL INFORMATION: Abdomen pain. Nausea, vomiting COMPARISON: Portions of previous 06/26/24 TECHNIQUE: Multidetector CT. Helical examination of the abdomen and pelvis. Imaging performed after the IV administration of contrast. Reformatting in the coronal and sagittal planes. DLP: 508 mGy-cm Dose optimization was performed including the use of low-dose iterative reconstruction technique with automatic exposure control based on patient size. Type of contrast: ISOVUE 370 Volume of IV contrast: 85 mL Volume of contrast discarded: 0 mL FINDINGS: Imaging performed through the early phase of enhancement. LIVER: The liver is normal in size, shape, and attenuation. No focal hepatic lesion or biliary ductal dilatation is present. No additional liver findings. BILIARY TRACT: No opaque gallstone. No biliary dilation. SPLEEN: The spleen is normal size. There is an unchanged small low attenuating area in the posterior upper aspect of the spleen. PANCREAS: There may be drainage of the pancreatic body and tail into the minor ampulla (divisum). ADRENAL GLANDS: No suspicious abnormality. KIDNEYS: No dilation of the intrarenal collecting system. The nephrograms are symmetric. No suspicious renal mass. No opaque renal calculus. URINARY BLADDER: Metallic artifact limits assessment. No definite abnormality. PELVIC VISCERA: The uterus is not well demonstrated and may be surgically absent. No large adnexal mass or collection. GASTROINTESTINAL TRACT: Limited by phase of enhancement and lack of fat. The colon is not well evaluated and is not distended. There has been gastric bypass surgery. No disproportionate small bowel dilation. No evidence of an abscess. The central aspect of the mesenteric vessels enhance. No definite swirling. ABDOMINAL WALL: Limited by metallic artifact. No definite hernia. There is extensive subcutaneous fat stranding. There is unchanged calcified abnormality in the right mid abdominal wall. LYMPHOVASCULAR STRUCTURES AND FLUID: There is no abdominal aortic aneurysm. There are no measurably enlarged lymph nodes. The portal vein enhances. There is a small amount of free pelvic fluid. Was not present 06/26/24. VISUALIZED LOWER CHEST: No suspicious abnormality. Small pleural associated nodule associated with the lateral aspect of the right major fissure has typically benign features. MUSCULOSKELETAL: No acute or suspicious osseous abnormality. Calcified disc and/or osteophyte at L5/S1. Degenerative change of the facets at L4/L5. Procedure Note Tristin Rowley MD - 11/12/2024 EXAMINATION: CT ABDOMEN/PELVIS WITH IV CONTRAST CLINICAL INFORMATION: Abdomen pain. Nausea, vomiting COMPARISON: Portions of previous 06/26/24 TECHNIQUE: Multidetector CT. Helical examination of the abdomen and pelvis. Imaging performed after the IV administration of contrast. Reformatting in the coronal and sagittal planes. DLP: 508 mGy-cm Dose optimization was performed including the use of low-dose iterativereconstruction technique with automatic exposure control based on patientsize. Type of contrast: ISOVUE 370 Volume of IV contrast: 85 mL Volume of contrast discarded: 0 mL FINDINGS: Imaging performed through the early phase of enhancement. LIVER: The liver is normal in size, shape, and attenuation. No focalhepatic lesion or biliary ductal dilatation is present. No additionalliver findings. BILIARY TRACT: No opaque gallstone. No biliary dilation. SPLEEN: The spleen is normal size. There is an unchanged small lowattenuating area in the posterior upper aspect of the spleen. PANCREAS: There may be drainage of the pancreatic body and tail into theminor ampulla (divisum). ADRENAL GLANDS: No suspicious abnormality. KIDNEYS: No dilation of the intrarenal collecting system. The nephrogramsare symmetric. No suspicious renal mass. No opaque renal calculus. URINARY BLADDER: Metallic artifact limits assessment. No definiteabnormality. PELVIC VISCERA: The uterus is not well demonstrated and may be surgicallyabsent. No large adnexal mass or collection. GASTROINTESTINAL TRACT: Limited by phase of enhancement and lack offat. The colon is not well evaluated and is not distended. There has been gastric bypass surgery. No disproportionate small boweldilation. No evidence of an abscess. The central aspect of the mesenteric vessels enhance. No definiteswirling. ABDOMINAL WALL: Limited by metallic artifact. No definite hernia. There isextensive subcutaneous fat stranding. There is unchanged calcifiedabnormality in the right mid abdominal wall. LYMPHOVASCULAR STRUCTURES AND FLUID: There is no abdominal aorticaneurysm. There are no measurably enlarged lymph nodes. The portal veinenhances. There is a small amount of free pelvic fluid. Was not present 06/26/24. VISUALIZED LOWER CHEST: No suspicious abnormality. Small pleuralassociated nodule associated with the lateral aspect of the right majorfissure has typically benign features. MUSCULOSKELETAL: No acute or suspicious osseous abnormality. Calcifieddisc and/or osteophyte at L5/S1. Degenerative change of the facets atL4/L5. IMPRESSION: Previous gastric bypass surgery. No definite abscess or pneumoperitoneum.No evidence of high-grade obstruction. -------- FINAL REPORT -------- Dictated By: Tristin Rowley Dictated Date: 11/12/2024 10:16 ET Assigned Physician: Tristin Rowley Reviewed and Electronically Signed By: Tristin Rowley Signed Date: 11/12/2024 10:26 ET Workstation ID: [id number] Transcribed By: Self Edit Transcribed Date: 11/12/2024 10:16 ET us Rosangela DELATORRE IMG CT PROCEDURES Final Resu lt * Urinalysis with reflex microscopic and culture (11/12/2024 9:31 AM EDT) Specific [place] Urine 1.012 1.003 - 1.030 LAB URINALYSIS - AUTOMATED METHOD 11/12/2024 9:56 AM EDT [facility] pH, Urine 8.0 5.0 - 8.0 pH LAB URINALYSIS - AUTOMATED METHOD 11/12/2024 9:56 AM [facility] Leukocytes, Urine Negative Negative LAB URINALYSIS - AUTOMATED METHOD 11/12/2024 9:56 AM [facility] Nitrite, Urine Negative Negative LAB URINALYSIS - AUTOMATED METHOD 11/12/2024 9:56 AM [facility] Protein, Urine Trace <=Trace mg/dL LAB URINALYSIS - AUTOMATED METHOD 11/12/2024 9:56 AM [facility] Glucose, Urine Negative Negative mg/dL LAB URINALYSIS - AUTOMATED METHOD 11/12/2024 9:56 AM [facility] Ketones, Urine Negative Negative mg/dL LAB URINALYSIS - AUTOMATED METHOD 11/12/2024 9:56 AM [facility] Urobilinogen, Urine 0.2 0.2 - 1.0 mg/dL LAB URINALYSIS - AUTOMATED METHOD 11/12/2024 9:56 AM [facility] Bilirubin, Urine Negative Negative LAB URINALYSIS - AUTOMATED METHOD 11/12/2024 9:56 AM [facility] Blood, Urine Negative Negative LAB URINALYSIS - AUTOMATED METHOD 11/12/2024 9:56 AM [facility] Urine Urine specimen obtained by clean catch procedure / Unknown Non-blood Collection / Unknown 11/12/2024 9:31 AM EDT 11/12/2024 9:51 AM EDT us Rosangela DELATORRE LAB URINE ORDERABLES Final R esult [facility] [address] [place] [address], * Mccoy urine culture tube (11/12/2024 9:31 AM EDT) Extra Tube Hold for add-ons. 11/12/2024 11:01 AM EDT [facility] Comment:Auto resulted. Urine Urine specimen obtained by clean catch procedure / Unknown Non-blood Collection / Unknown 11/12/2024 9:31 AM EDT 11/12/2024 9:51 AM EDT Rosangela DELATORRE LAB URINE ORDERABLES Final R esult Performing Organization Address City/[facility]/ZIP Co de Phone Number [facility] [address] [place] [address], [place] [phone] * Lactate, with reflex (11/12/2024 8:42 AM EDT) [facility] LACTIC ACID 1.7 0.4 - 2.0 mmol/L LAB CHEMISTRY METHOD 11/12/2024 9:21 AM EDT [facility] Blood Venous blood specimen / Unknown Venipuncture / Unknown 11/12/2024 8:42 AM EDT 11/12/2024 8:57 AM EDT Rosangela DELATORRE LAB BLOOD ORDERABLES Final R esult Performing Organization Address City/[facility]/ZIP Co de Phone Number [facility] [address] [place] [address], [place] [phone] * Troponin I high sensitivity (11/12/2024 8:42 AM EDT) [facility] High Sensitivity Troponin I <3 <=54 ng/L LAB CHEMISTRY METHOD 11/12/2024 9:21 AM EDT [facility] Blood Venous blood specimen / Unknown Venipuncture / Unknown 11/12/2024 8:42 AM EDT 11/12/2024 8:57 AM EDT Narrative [facility] - 11/12/2024 9:21 AM EDT High levels of biotin in samples may falsely decrease hsTroponin values. Use caution when interpreting hsTroponin results in patients taking biotin who exhibit renal impairment (eGFR <60) or in patients taking more than 20 mg/day of biotin. Rosangela DELATORRE LAB BLOOD ORDERABLES Final R esult [facility] [address] [place] [address], * (ABNORMAL) CBC auto differential (11/12/2024 8:42 AM EDT) [facility] WBC 7.9 4.8 - 10.8 K/mcL LAB HEMETOLOGY METHOD 11/12/2024 9:19 AM EDT [facility] RBC 5.00(H) 3.80 - 4.80 M/mcL LAB HEMETOLOGY METHOD 11/12/2024 9:19 AM EDT [facility] Hemoglobin 14.5 11.5 - 16.0 g/dL LAB [facility]ETOLOGY [facility] Hematocrit 42.2 35.0 - 47.0 % LAB HEMETOLOGY METHOD 11/12/2024 9:19 AM EDT [facility] MCV 85.3 79.0 - 98.0 FL LAB HEMETOLOGY METHOD 11/12/2024 9:19 AM EDT [facility] MCH 29.3 27.0 - 32.0 pcg LAB HEMETOLOGY METHOD [facility] MCHC 34.4 32.0 - 37.0 g/dL LAB HEMETOLOGY METHOD 11/12/2024 9:19 AM [facility] RDW 15.4(H) 11.0 - 15.0 % LAB HEMETOLOGY METHOD 11/12/2024 9:19 AM [facility] Platelets 218 130 - 400 K/mcL LAB HEMETOLOGY METHOD 11/12/2024 9:19 AM [facility] MPV 10.5 7.0 - 11.0 FL LAB HEMETOLOGY METHOD 11/12/2024 9:19 AM [facility] NRBC 0.0 <1.0 % LAB HEMETOLOGY METHOD 11/12/2024 9:19 AM [facility] NRBC Absolute 0.00 <0.10 K/mcL LAB HEMETOLOGY METHOD 11/12/2024 9:19 AM [facility] Neutrophils Relative 71.7 % LAB HEMETOLOGY METHOD 11/12/2024 9:19 AM [facility] Lymphocytes Relative 23.8 % LAB HEMETOLOGY METHOD 11/12/2024 9:19 AM [facility] Monocytes Relative 3.7 % LAB HEMETOLOGY METHOD 11/12/2024 9:19 AM [facility] Eosinophils Relative 0.4 % LAB HEMETOLOGY METHOD 11/12/2024 9:19 AM [facility] Basophils Relative 0.3 % LAB HEMETOLOGY METHOD 11/12/2024 9:19 AM [facility] Immature Granulocytes Relative 0.1 % LAB HEMETOLOGY METHOD 11/12/2024 9:19 AM [facility] Neutrophils Absolute 5.63 1.50 - 7.00 K/mcL LAB HEMETOLOGY METHOD 11/12/2024 9:19 AM [facility] Lymphocytes Absolute 1.87 1.00 - 5.00 K/mcL LAB HEMETOLOGY METHOD 11/12/2024 9:19 AM [facility] Monocytes Absolute 0.29 0.20 - 1.00 K/mcL LAB HEMETOLOGY METHOD 11/12/2024 9:19 AM [facility] Eosinophils Absolute 0.03 0.00 - 0.50 K/mcL LAB HEMETOLOGY METHOD 11/12/2024 9:19 AM EDT [facility] Basophils Absolute 0.02 0.00 - 0.20 K/[facility] LAB HEMETOLOGY METHOD 11/12/2024 9:19 AM EDT [facility] Immature Granulocytes Absolute 0.01 0.00 - 0.03 K/[facility] LAB HEMETOLOGY METHOD 11/12/2024 9:19 AM EDT [facility] Blood Venous blood specimen / Unknown Venipuncture / Unknown 11/12/2024 8:42 AM EDT 11/12/2024 8:57 AM EDT us Indra Beach MD LAB BLOOD ORDERABLES Final Resul t Performing Organization Address [facility]/[place] Co de Phone Number [facility] [address] [place] [address], [place] [phone] * hCG, serum, qualitative (11/12/2024 8:42 AM EDT) hCG Qual Negative Negative 11/12/2024 10:38 AM EDT [facility] Blood Venous blood specimen / Unknown Venipuncture / Unknown 11/12/2024 8:42 AM EDT 11/12/2024 8:57 AM EDT us Indra Beach MD LAB BLOOD ORDERABLES Final Resul t Performing Organization Address City/[facility]/ZIP Co de Phone Number [facility] [address] [place] [address], [place] [phone] * Lipase (11/12/2024 8:42 AM EDT) Lipase 31 13 - 75 unit/L LAB CHEMISTRY METHOD 11/12/2024 9:25 AM EDT [facility] Blood Venous blood specimen / Unknown Venipuncture / Unknown 11/12/2024 8:42 AM EDT 11/12/2024 8:57 AM EDT us Indra Beach MD LAB BLOOD ORDERABLES Final Resul t [facility] [address] [place] [address], [place] [phone] * (ABNORMAL) Comprehensive metabolic panel (11/12/2024 8:42 AM EDT) Sodium 136 133 - 145 mmol/L LAB CHEMISTRY METHOD 11/12/2024 9:25 AM [facility] Potassium 3.6 3.5 - 5.5 mmol/L LAB CHEMISTRY METHOD 11/12/2024 9:25 AM [facility] Comment:Hemolysis present Chloride 104 96 - 110 mmol/L LAB CHEMISTRY METHOD 11/12/2024 9:25 AM [facility] CO2 25 21 - 32 mmol/L LAB CHEMISTRY METHOD 11/12/2024 9:25 AM [facility] Anion Gap 7 3 - 11 LAB CHEMISTRY METHOD 11/12/2024 9:25 AM [facility] Glucose 128(H) 70 - 100 mg/dL LAB CHEMISTRY METHOD 11/12/2024 9:25 AM [facility] BUN 7 5 - 25 mg/dL LAB CHEMISTRY METHOD 11/12/2024 9:25 AM [facility] Creatinine 0.76 0.50 - 1.10 mg/dL LAB CHEMISTRY METHOD 11/12/2024 9:25 AM [facility] eGFR 97 >=60 mL/min/1. 73m2 LAB CHEMISTRY METHOD 11/12/2024 9:25 AM [facility] Comment:Calculation based on the Chronic Kidney Disease Epidemiology Collaboration (CKD-EPI) equation refit without adjustment for race. BUN/Creatinine Ratio 9.2 LAB CHEMISTRY METHOD 11/12/2024 9:25 AM [facility] Calcium 9.5 8.5 - 10.5 mg/dL LAB CHEMISTRY METHOD 11/12/2024 9:25 AM EDT [facility] AST (SGOT) 27 10 - 42 unit/L LAB CHEMISTRY METHOD 11/12/2024 9:25 AM T [facility] Comment:Hemolysis present ALT (SGPT) 27 10 - 60 unit/L LAB CHEMISTRY METHOD 11/12/2024 9:25 AM EDT [facility] Alkaline Phosphatase 108 42 - 121 unit/L LAB CHEMISTRY METHOD 11/12/2024 9:25 AM T [facility] Total Protein 9.1(H) 6.0 - 8.0 g/dL LAB CHEMISTRY METHOD 11/12/2024 9:25 AM [facility] Albumin 4.8 3.2 - 5.0 g/dL LAB CHEMISTRY METHOD 11/12/2024 9:25 AM [facility] Total Bilirubin 0.5 0.0 - 1.4 mg/dL LAB CHEMISTRY METHOD 11/12/2024 9:25 AM T [facility] Blood Venous blood specimen / Unknown Venipuncture / Unknown 11/12/2024 8:42 AM EDT 11/12/2024 8:57 AM EDT us Indra Beach MD LAB BLOOD ORDERABLES Final Resul t [facility] [address] [place] [address], from Last 3 Months Insurance MEDICARE MEDICAID [...] currently active code status orders. Care Teams Quarry Manager Relationship Specialty Start Date End Date Lisseth Nassar NP [address] [place] [id number] PCP - General 07/07/21
--- OUTSIDE RECORDS SUMMARY | 2024-11-27 16:22 | XMS_ITS | Encounter Summary ---
Author Organization [facility] Address [address] [place] [id number] Phone Care Team Providers Care Rotary Shear Operator Name Role Phone Romeo Jacobson MD Primary Care Provid er Lisseth Nassar LAW[employer]ER [employer] Unavailable [phone] Encounter Details Date Type Department Care Team (Late st Contact Info) Description 12/08/2023 Procedure Pass OR Admitting Dept - Virtual Department [address] [place] [address] Social History Tobacco Use Types Packs/Day Years Used Date Smoking Tobacco: Never Smokeless Tobacco: Never Alcohol Use Standard Drinks/Week Comments Never 0 (1 standard drink = 0.6 oz pur e alcohol) Education Answer Date Recorded Are you interested in more education? Not on keyla e 07/10/2022 Are you concerned about learning? Not on file 07/10/2022 No 07/10/2022 No 07/10/2022 Digital Access Answer Date Recorded No 08/10/2022 No 08/10/2022 Reliable internet access at home? Not on file 08/10/2022 Device with a working camera? Not on file Comments Unknown Sex and Gender Information Value Date Recorded Sex Assigned at Female 09/04/2020 8:24 AM EDT Legal Sex Female 8:06 AM EDT Gender Identity Female 09/04/2020 8:24 AM EDT Sexual Orientation Straight 09/04/2020 8: 24 AM EDT documented as of this encounter Plan of Treatment Not on file documented as of this encounter Visit Diagnoses Not on filedocumented in this encounter Care Teams Rotary Shear Operator Relationship Specialty Start Date End Date Romeo Jacobson MD [address] [place] [id number] PCP - General Internal Medicine 09/04/20 Lisseth Nassar NP [address] [place] [phone] Nurse Practitioner Family Medicine 09/04/20 documented as of this encounter Additional Source Comments The information contained in this document represents components of the legal health record. It is not the complete legal health record.[facility]
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
--- OUTSIDE RECORDS SUMMARY | 2024-11-27 16:22 | XMS_ITS | Encounter Summary ---
Author Organization [facility] Address [address] [place] [address] Phone Care Team Providers Care Chemical Instrumentation Officer Name Role Phone Romeo Jacobson MD Primary Care Provid er Lisseth Nassar DIRECTOR OF LOSS PREVENTION Unavailable [phone] Encounter Details Date Type Department Care Team (Late st Contact Info) Description 10/15/2020 [facility] [address], [address] [place] [address] Angelika Byrne, CONSULTANT TECHNOLOGY [address] [facility] [address] [place] [address] [email or web address] Social History Tobacco Use Types Packs/Day Years Used Date Smoking Tobacco: Every Day Alcohol Use Standard Drinks/Week Comments Never 0 (1 standard drink = 0.6 oz pur e alcohol) Comments Unknown Sex and Gender Information Value [...] on filedocumented in this encounter Care Teams Chemical Instrumentation Officer Relationship Specialty Start Date End Date Romeo Jacobson MD [address] [place] [address] PCP - General Internal Medicine 09/04/20 Lisseth Nassar NP [address] [place] [address] Nurse Practitioner Family Medicine 09/04/20 documented as of this encounter Additional Source Comments The information contained in this document represents components of the legal health record. It is not the complete legal health record.[facility]
== END 2024-11-27 12:50 | disposition home or self-care (01) ==
LOC: HO.HKAS 12:20
PROVIDERS: PCP Nurse Practitioner Family; Visit Provider Internal Medicine Nephrology
DX: I10 Essential (primary) hypertension (principal); R79.89 Other specified abnormal findings of blood chemistry
CPT/HCPCS: 99214

== ENCOUNTER → 2024-11-27 12:19 | Outpatient (BNVA) | payer MEDICARE, MEDICAID, SELFPAY | PROVIDERS: PCP Nurse Practitioner Family; Visit Provider Internal Medicine Nephrology | DX: I10 Essential (primary) hypertension (principal); R79.89 Other specified abnormal findings of blood chemistry | CPT/HCPCS: 99212 ==

== ENCOUNTER 2025-01-07 10:44 | Outpatient (AMB) | payer MEDICARE, MEDICAID, SELFPAY ==
--- NOTE | 2025-01-07 10:48 | MHC.OFFVIS ---
Vital Signs 01/07/25 10:50 Height 5 ft 5 in Weight 130 lb 1.164 oz BMI 21.6 BP 141/95 H Blood Pressure Location Lt brachial Position Sitting Pulse 98 Intake Visit Reasons: 4 mo f/u Colitis Intake Note: Eboni presents in the office as a 4 month follow up. CC: She states that she had her revision and states that she is battling with her weight. States that she does not feel good - states her stomach does not feel good. She states that she just had a heart attack and issues with her hearts. [place] Required: No Allergies sertraline (From ZOLOFT) Allergy (Intermediate, Verified 01/07/25 11:06) prolonged QT interval Sulfa (Sulfonamide Antibiotics) (SULFA (SULFONAMIDE ANTIBIOTICS)) Allergy (Intermediate, Verified 01/07/25 11:06) RASH haloperidol (From Haldol) Allergy (Mild, Verified 01/07/25 11:06) unknown morphine (MORPHINE) Allergy (Mild, Verified 01/07/25 11:06) Rash NSAIDS (Non-Steroidal Anti-Inflamma (NSAIDS (NON-STEROIDAL ANTI-INFLAMMA) Adverse Reaction (Intermediate, Verified 01/07/25 11:06) STOMACH UPSET fentanyl patch Allergy (Severe, Uncoded 01/07/25 11:06) Unresponsive HPI HPI 4 mo f/u Colitis: Details: 49-year-old female with hx of multiple bariatric surgeries including a slipped lap band, gastric sleeve and gastric bypass, adrenal insufficiency on hydrocortisone, hiatal hernia, hypertension managed by Dr. Purdy on carvedilol, ?new diagnosis Dany's (per pt but not seen in endocrine note), nonischemic cardiomyopathy with EF of 50%, asthma unspecified, chronic UTIs versus interstitial cystitis, chronic joint pain who I am seeing for f/u RECAP: she has 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 sleep is poor, 4 hrs off and on she is on tramadol, having issues with constipation. once q4 days EGD 03/2018- gastritis also prior hx of kenalog trigger injection, hard to say if helped. she was given linaclotide to help with constipation GES---normal she was having ongoing issues with pain and was optimized on acid suppression with h2, PPI and carafate, was trying to get her movantik she represented 01/2019 to office with c/o worsening epigastric pain, nausea, and poor appetite with weight loss. using linaclotide helping her constipation, on fentanyl patch--goes every few days I offered her admission but she refused but she was dizzy so sent to ED, labs inc LFT, BMP, CBC were neg and CT was unremarkable without any acute pathology EGD then done 02/2019 with bx revealing chronic reflux damage and gastritis, looked like sandy but the stain was neg U/s 03/2019- liver normal, F0 on elastography, ?left kidney stone, Ba swallow 03/2019- patent GEJ, mild reflux pending urine 24 hr tests and metanephrines At f/u visit 05/2019--she was awaiting w/u for interstitial cystitis she was doing well with donantal and compazine capsule endoscopy was done and was neg was advised to try align, IBGARD, stress reduction She had cystoscopy with Dr Rodriguez for her IC she had surgery with removal of adhesions at [facility] 05/2021 and hiatal hernia repair she had ongoing problems and had EGD with gastritis, and bile reflux in stomach she is on trileptel for bipolar I ordered KUB with moderate stool burden Increased movantik to 25 mg but stopped it due to too much diarrhea she had kenalog injection to area of pain in abdomen, which she feels may have helped a little She had EGD/colon with Dr Allan 04/05 Marginal ulcer noted at [facility] colon was tortuous hyperplastic polyp removed with random colo bx with crypt distortion REPT EGD: 08/24/22 Hx of gastric bypass Findings: Larynx:normal Esophagus: GE junction at 37 cm, diaphragm hiatus at 37 cm, no varices or esophagitis. Stomach pouch: x 4 retained sola noted with mild superficial inflammation and erosions noted around 3 of these. These were removed with cold forceps and bx taken from the anastomotic site and the pouch. Overall appearances appeared improved as compared to before. Jejunum: Normal Intervention: Biopsies as noted above, removal of retained sola Impression/Findings: retained sola mild inflammation around anastomosis PLAN: cont with PPI I again scoped her for reassessment 02/15/23-- improved compared to before with chronic active inflammation at anastomosis i added ursodiol She had in patient admission, egd and sigmoid findings: inflammation at gastric jejunal anastomosis and jejuno jejunal anastomosis Sigmoidoscopy Findings: possible colopathy dysmotility INTERIM: she is stressed mum is sick, EF is 15% son had divorce she has nausea, she has stool leakage she is losing weight she is following endocrine for low cortisol levels she has headaches and malaise, weakness, feels awful,, failure to thrive BP high in office today on few occasions EXAM: GENERAL: The patient is weak, frail VITAL SIGNS:see workflow HEENT: Nonicteric sclerae, PERRLA, EOMI. Oropharynx clear. Moist mucous membranes. Conjunctivae appear well perfused. No thyroid mass. CHEST: Chest wall is nontender. HEART: Regular rate and rhythm without murmurs. LUNGS: Clear to auscultation bilaterally. ABDOMEN: Soft, positive bowel sounds, nontender, no organomegaly.no flank tenderness SKIN: No rash, no excessive bruising, petechiae, or purpura. NEUROLOGIC: Cranial nerves II-XII intact without motor/sensory deficit. Psych: normal affect Assessments 1/ attacks of abdominal pain, diarrhea, nausea, uncertain etiology, possibly from cortisol insuff, being evaluated by endo and maybe due to cortisol shots--worse with stress--uncertain etiology, need to r.o MALS, SMA syndrome, may have UTI as well given loin tenderness PLAN: 1/ cont to take open capsule esomeprazole and cont carafate, open mesalamine and take 2/ refer ED due to BP issues and symptoms, might need to go up on BP meds, only on low meds--also hx of tako tsubo 3/ check US and doppler, UA, [facility] Low serum cortisol level Spinal stenosis HTN (hypertension) Multinodular goiter Decreased oral intake Takotsubo cardiomyopathy Burn injury Arthritis Low back pain Elevated cholesterol SOB (shortness of breath) Asthma Numbness Mood disorder IBS (irritable bowel syndrome) OAB (overactive bladder) Sleep apnea Hypersomnia Anxiety Surgical History Hx of gastric bypass Hx of total knee replacement Hx of knee surgery Hx of hernia repair History of cystoscopy Hx of laparoscopic gastric banding Hx of hysterectomy History of H/O gastric bypass Hx of endoscopy History of colonoscopy Family History Father Hx of colon cancer, stage IV Mother Family history of high blood pressure Social History Household Members: Children Household Members Other:: My son Housing: Apartment Are you a primary lawn care professional to a significant other at home: No Do you presently have visiting nurse or other home services: Yes (youngest dtr is box stacker) Alcohol intake: never Comment: previously medicated Patient Tobacco Use Status: Never used Tobacco e-Cigarette/Vaping Use: Never Used Second Hand Smoke Exposure: No Substance Use Type: Marijuana service: No Physical Exam Vital Signs: Last Vital Signs Pulse 98 01/07/25 10:50 BP 141/95 H 01/07/25 10:50 BMI result Body Mass Index 21.6 Assessment & Plan Assessment & Plan (1) Epigastric abdominal pain: Code(s): R10.13 - Epigastric pain Category: Medical Plan: as above (2) Colitis: Code(s): K52.9 - Noninfective gastroenteritis and colitis, unspecified Category: Medical Plan: as above (3) Epigastric abdominal pain: Code(s): R10.13 - Epigastric pain Category: Medical Plan: as above Orders: Orders US SMA Today R10.13 - Epigastric pain UA CC w/rflx Micro + Cult Today K52.9 - Noninfective gastroenteritis and colitis, unspecified, R10.13 - Epigastric pain, R30.0 - Dysuria Ferritin Today K52.9 - Noninfective gastroenteritis and colitis, unspecified, R10.13 - Epigastric pain Creatine Kinase Total Today K52.9 - Noninfective gastroenteritis and colitis, unspecified, R10.13 - Epigastric pain Complete Blood Count Auto Diff Today K52.9 - Noninfective gastroenteritis and colitis, unspecified, R10.13 - Epigastric pain Comprehensive Met. Panel Today K52.9 - Noninfective gastroenteritis and colitis, unspecified, K75.81 - Nonalcoholic steatohepatitis (CELIS), R10.13 - Epigastric pain C Reactive Protein Today K52.9 - Noninfective gastroenteritis and colitis, unspecified, R10.13 - Epigastric pain CDiff Gene PCR Today K52.9 - Noninfective gastroenteritis and colitis, unspecified, R10.13 - Epigastric pain, R19.7 - Diarrhea, unspecified Lactoferrin, Fecal, Quant. Today K51.50 - Left sided colitis without complications, K52.9 - Noninfective gastroenteritis and colitis, unspecified, R10.13 - Epigastric pain GI Panel Today K52.9 - Noninfective gastroenteritis and colitis, unspecified, R10.13 - Epigastric pain, R19.7 - Diarrhea, unspecified US abdomen complete Today R10.13 - Epigastric pain Medications: New dicyclomine 10 mg PO TID 60 caps 2RF esomeprazole magnesium 40 mg PO DAILY 90 caps 1RF Coding Level of Care Code Est Pt Level 4 (67919) Diagnoses Epigastric abdominal pain R10.13 Colitis K52.9
[2025-01-07 10:50] VITALS: BP 141/95; PULSE 98; BMI 21.6
--- OUTSIDE RECORDS SUMMARY | 2025-01-07 13:10 | XMS_ITS | Clinical Summary ---
Author Organization [facility] Address [address] [place] [address] Phone Care Team Providers Care Vp Patient Name Role Phone Lisseth Nassar TECHNICAL SPECIALIST CYTOLOGY Primary Care Provider [phone] Allergies Active Allergy Reactions Criticality Noted Date Comments Divalproex Palpitations High 08/16/2024 Fentanyl Fainting,Other,Anaph y laxis High 02/09/2022 Haloperidol Anxiety Low 02/15/2022 Other Reaction(s): Feeling Irritable Morphine Low 08/12/2020 Redness around the site Nsaids (Non-Steroidal Anti-Inflammatory Drug) Other 09/08/2020 GI bleeding Sertraline Other 09/08/2020 Other Reaction(s): QT wave change interferes withQT waves of heart changed my QT interval has a general pediatrician changed my QT interval has a general pediatrician Sulfa (Sulfonamide Antibiotics) Rash Low 09/08/2020 Sulfamethoxazole-Tri [...] Active Problems Problem Noted Date Diagnosed Date Abdominal pannus 11/07/2024 Intertrigo 11/07/2024 Skin laxity 11/07/2024 Excessive and redundant skin and subcutaneous ti ssue 11/07/2024 Hx of gastric bypass 07/13/2024 Stress-induced cardiomyopathy 07/05/2024 Pancreatitis 07/05/2024 Osteoarthritis of knee 07/05/2024 Obstructive sleep apnea 07/05/2024 GERD (gastroesophageal reflux disease) DDD (degenerative disc disease), lumbar 07/06/19 25 Chronic abdominal pain 06/24/2024 Acute renal failure ([facility] V24) 03/17/2024 Acute kidney injury ([facility] V24) 03/17/2024 NSTEMI (non-ST elevated myoc ardial infarction) ([facility] V24, [facility] V28) 11/23/2023 Hypertensive disorder 10/26/2018 Overview (07/05/2024): Status: 'A'; Low back pain 03/05/2016 Overview (07/05/2024): Problem Code: M54.5; Problem Code Type: ICD-10; Status: 'A'; Resolved Problems Problem Noted Date Diagnosed Date Resolved Date Intussusception ([facility] V24, [facility] V28) 07/03/2024 07/16/2024 Generalized abdominal pain 06/25/2024 0 06/28/2024 Encounters Date Type Department Care Team Description 11/12/2024 8:06 AM EDT - 11/12/2024 2:14 PM EDT Emergency [facility] Emergency [address] [place] [id number] Indra Beach MD Generalized abdominal pain (Primary Dx) Discharge Disposition: Home or Self Care 11/07/2024 11:30 AM EDT Office Visit Plastic & Re[facility] [address] [place] [id number] Tomas Edmond DO Abdominal pannus (Primary Dx); Intertrigo; Chronic abdominal pain; Skin laxity; Excessive and redundant skin and subcutaneous tissue from Last 3 Months Surgical History Surgery Date Site/Laterality Comments BREAST REDUCTION PROCEDURE: TX BREAST REDUCTION LAPAROSCOPIC GASTRIC BANDING PROCEDURE: LAP [...] Depression DX:Depression Opioid type dependence, cont inuous (CMS/HCC V24, [facility] V28) Chronic abdominal pain Non-ischemic cardiomyopathy ([facility] V24, [facility] V28) Irritable bowel syndrome GERD (gastroesophageal reflux disease) Low serum cortisol level Interstitial cystitis MS (myocardial infarction) ([facility] V24, [facility] V28) GI bleed Family History Medical History [...] Safety Answer Date Record ed Physical Abuse Unrecognized value 07/13/2024 Verbal Abuse Unrecognized value 07/13/2024 Comments No Sex and Gender Information [...] 11/12/2024 8:21 AM EDT Plan of Treatment Scheduled Procedures Name Priority Associated Diagnoses Date/Ti me PANNICULECTOMY Abdominal pannus Intertrigo Chronic abdominal pain Skin laxity Excessive and redundant skin and subcutaneous tissue Health Maintenance Due Date Last Done Comments Breast Cancer Screening 1976 Colorectal Cancer Screening: Colonoscopy 1976 Hepatitis A Vaccines (1 of 2 - Risk 2-dose series) 10/05/1995 Pneumococcal Vaccine: Pediatrics (0 to 5 Years) and At-Risk Patients (6 to 49 Years) (1 of 2 - PCV) 10/05/1995 Cervical Cancer Screening: Pap Smear 1997 Hepatitis B Vaccines (3 of 3 - 19+ 3-dose series) 02/18/2010 12/24/2009, 10/19/2004 Cholesterol Screening (Lipid Panel) 02/20/2022 HIV Screening 02/20/2022 Hepatitis C Screening [...] - Td or Tdap) 09/03/2030 09/03/2020, 05/29/2013 RSV Immunization Adult Patients (1 - 1-dose 75+ series) 10/05/2051 HIB Vaccines Aged Out No longer eligi [...] this topic Medical Devices Implanted Type Area Commissioner Of Officials Device Identifier Shelf Expiration Date Model / [...] GEMUSE QTc 475 ms GEMUSE P Wave Weston -6 degrees GEMUSE R Weston 45 degrees GEMUSE T Weston 40 degrees GEMUSE ECG Interpretation Normal sinus rhythm Minimal voltage criteria for LVH, may be normal variant T wave abnormality, consider anterior ischemia Abnormal ECG When compared with ECG of 24-JUN-2024 04:40, No significant change was found Confirmed by MAGALYS GOODEN ([id number]) on 11/12/2024 5:04:29 PM GEMUSE 11/12/2024 12:3 4 PM EDT 11/12/2024 5:04 PM EDT Rosangela DELATORRE ECG ORDERABLES Final Result GEMUSE [...] Signed Date: 11/12/2024 10:26 ET Workstation ID: [id number] Transcribed By: Self Edit Transcribed Date: 11/12/2024 [...] Signed Date: 11/12/2024 10:26 ET Workstation ID: [id number] Transcribed By: Self Edit Transcribed Date: 11/12/2024 10:16 ET Rosangela DELATORRE IMG CT PROCEDURES Final Resu lt * Urinalysis with reflex microscopic and culture (11/12/2024 9:31 AM EDT) Specific [place] Urine 1.012 1.003 - 1.030 LAB URINALYSIS - AUTOMATED METHOD 11/12/2024 9:56 AM [facility] pH, Urine 8.0 5.0 - 8.0 pH LAB URINALYSIS - AUTOMATED METHOD 11/12/2024 9:56 AM [facility] Leukocytes, Urine Negative Negative LAB URINALYSIS - AUTOMATED METHOD 11/12/2024 9:56 AM [facility] Nitrite, Urine Negative Negative LAB URINALYSIS - AUTOMATED METHOD 11/12/2024 9:56 AM [facility] Protein, Urine Trace <=Trace mg/dL LAB URINALYSIS - AUTOMATED METHOD 11/12/2024 9:56 AM [facility] Glucose, Urine Negative Negative mg/dL LAB URINALYSIS - AUTOMATED METHOD 11/12/2024 9:56 AM [facility] Ketones, Urine Negative Negative mg/dL LAB URINALYSIS - AUTOMATED METHOD 11/12/2024 9:56 AM [facility] Urobilinogen, Urine 0.2 0.2 - 1.0 mg/dL LAB URINALYSIS - AUTOMATED METHOD 11/12/2024 9:56 AM [facility] Bilirubin, Urine Negative Negative LAB URINALYSIS - AUTOMATED METHOD 11/12/2024 9:56 AM [facility] Blood, Urine Negative Negative LAB URINALYSIS - AUTOMATED METHOD 11/12/2024 9:56 AM [facility] Urine Urine specimen obtained by clean catch procedure / Unknown Non-blood Collection / Unknown 11/12/2024 9:31 AM EDT 11/12/2024 9:51 AM EDT Rosangela DELATORRE LAB URINE ORDERABLES Final R esult Performing Organization Address [facility]/ZIP Co de Phone Number [facility] [address] [place] [address], [place] [phone] * Mccoy urine culture tube (11/12/2024 9:31 AM EDT) [facility] Extra Tube Hold for add-ons. 11/12/2024 11:01 AM EDT [facility] Comment:Auto resulted. Urine Urine specimen obtained by clean catch procedure / Unknown Non-blood Collection / Unknown 11/12/2024 9:31 AM EDT 11/12/2024 9:51 AM EDT us Rosangela DELATORRE LAB URINE ORDERABLES Final R esult Performing Organization Address [facility] Co de Phone Number [facility] [address] [place] [address], [place] [phone] * Lactate, with reflex (11/12/2024 8:42 AM EDT) [facility] LACTIC ACID 1.7 0.4 - 2.0 mmol/L LAB CHEMISTRY METHOD 11/12/2024 9:21 AM EDT [facility] Blood Venous blood specimen / Unknown Venipuncture / Unknown 11/12/2024 8:42 AM EDT 11/12/2024 8:57 AM EDT Rosangela DELATORRE LAB BLOOD ORDERABLES Final R esult Performing Organization Address [facility] Co de Phone Number [facility] [address] [place] [address], [place] [phone] * Troponin I high sensitivity (11/12/2024 8:42 AM EDT) High Sensitivity Troponin I <3 <=54 ng/L LAB CHEMISTRY METHOD 11/12/2024 9:21 AM EDT [facility] Blood Venous blood specimen / Unknown Venipuncture / Unknown 11/12/2024 8:42 AM EDT 11/12/2024 8:57 AM EDT Narrative [facility] - 11/12/2024 9:21 AM EDT High levels of biotin in samples may falsely decrease hsTroponin values. Use caution when interpreting hsTroponin results in patients taking biotin who exhibit renal impairment (eGFR <60) or in patients taking more than 20 mg/day of biotin. Rosangela DELATORRE LAB BLOOD ORDERABLES Final R esult [facility] [address] [place] [address], * (ABNORMAL) CBC auto differential (11/12/2024 8:42 AM EDT) Pathologist [facility] WBC 7.9 4.8 - 10.8 K/mcL LAB HEMETOLOGY METHOD 11/12[facility]2024 9:[facility] RBC 5.00(H) 3.80 - 4.80 M/mcL LAB HEMETOLOGY METHOD 11/12/2024 9:19 [facility] Hemoglobin 14.5 11.5 - 16.0 g/dL LAB HEMETOLOGY METHOD 11/12/2024 9:19 [facility] Hematocrit 42.2 35.0 - 47.0 % LAB HEMETOLOGY METHOD 11/12/2024 9:19 [facility] MCV 85.3 79.0 - 98.0 FL LAB HEMETOLOGY METHOD 11/12/2024 9:19 AM [facility] MCH 29.3 27.0 - 32.0 pcg LAB HEMETOLOGY METHOD 11/12/2024 9:19 AM [facility] MCHC 34.4 32.0 - 37.0 g/dL LAB HEMETOLOGY METHOD 11/12/2024 9:19 AM [facility] RDW 15.4(H) 11.0 - 15.0 % LAB HEMETOLOGY METHOD 11/12/2024 9:19 AM [facility] Platelets 218 130 - 400 K/mcL LAB HEMETOLOGY METHOD 11/12/2024 9:19 AM [facility] MPV 10.5 7.0 - 11.0 FL LAB HEMETOLOGY METHOD 11/12/2024 9:19 AM [facility] NRBC 0.0 <1.0 % LAB HEMETOLOGY METHOD 11/12/2024 9:19 AM [facility] NRBC Absolute 0.00 <0.10 K/mcL LAB HEMETOLOGY METHOD 11/12/2024 9:19 AM [facility] Neutrophils Relative 71.7 % LAB HEMETOLOGY METHOD 11/12/2024 9:19 AM [facility] Lymphocytes Relative 23.8 % LAB HEMETOLOGY METHOD 11/12/2024 9:19 AM [facility] Monocytes Relative 3.7 % LAB HEMETOLOGY METHOD 11/12/2024 9:19 AM [facility] Eosinophils Relative 0.4 % LAB HEMETOLOGY METHOD 11/12/2024 9:19 AM [facility] Basophils Relative 0.3 % LAB HEMETOLOGY METHOD 11/12/2024 9:19 AM [facility] Immature Granulocytes Relative 0.1 % LAB HEMETOLOGY METHOD 11/12/2024 9:19 AM [facility] Neutrophils Absolute 5.63 1.50 - 7.00 K/mcL LAB HEMETOLOGY METHOD 11/12/2024 9:19 AM EDT [facility] Lymphocytes Absolute 1.87 1.00 - 5.00 K/mcL LAB HEMETOLOGY METHOD 11/12/2024 9:19 AM EDT [facility] Monocytes Absolute 0.29 0.20 - 1.00 K/mcL LAB HEMETOLOGY METHOD 11/12/2024 9:19 AM EDT [facility] Eosinophils Absolute 0.03 0.00 - 0.50 K/[facility] LAB HEMETOLOGY METHOD 11/12/2024 9:19 AM EDT [facility] Basophils Absolute 0.02 0.00 - 0.20 K/[facility] LAB HEMETOLOGY METHOD 11/12/2024 9:19 AM EDT [facility] Immature Granulocytes Absolute 0.01 0.00 - 0.03 K/mcL LAB HEMETOLOGY METHOD 11/12/2024 9:19 AM EDT [facility] Blood Venous blood specimen / Unknown Venipuncture / Unknown 11/12/2024 8:42 AM EDT 11/12/2024 8:57 AM EDT us Indra Beach MD LAB BLOOD ORDERABLES Final Resul t [facility] [address] [place] [address], * hCG, serum, qualitative (11/12/2024 8:42 AM EDT) hCG Qual Negative Negative 11/12/2024 10:38 AM EDT [facility] Blood Venous blood specimen / Unknown Venipuncture / Unknown 11/12/2024 8:42 AM EDT 11/12/2024 8:57 AM EDT us Indra Beach MD LAB BLOOD ORDERABLES Final Resul t [facility] [address] [place] [address], [place] [phone] * Lipase (11/12/2024 8:42 AM EDT) [facility] Lipase 31 13 - 75 unit/L LAB CHEMISTRY METHOD 11/12/2024 9:25 AM T [facility] Blood Venous blood specimen / Unknown Venipuncture / Unknown 11/12/2024 8:42 AM EDT 11/12/2024 8:57 AM EDT us Indra Beach MD LAB BLOOD ORDERABLES Final Resul t [facility] [address] [place] [address], [place] [phone] * (ABNORMAL) Comprehensive metabolic panel (11/12/2024 8:42 AM EDT) [facility] Sodium 136 133 - 145 mmol/L LAB CHEMISTRY METHOD 11/12/2024 9:25 AM [facility] Potassium 3.6 3.5 - 5.5 mmol/L LAB CHEMISTRY METHOD 11/12/2024 9:25 AM [facility] Comment:Hemolysis present Chloride 104 96 - 110 mmol/L LAB CHEMISTRY METHOD 11/12/2024 9:25 AM [facility] CO2 25 21 - 32 mmol/L LAB CHEMISTRY METHOD 11/12/2024 9:25 AM [facility] Anion Gap 7 3 - 11 LAB CHEMISTRY METHOD 11/12/2024 9:25 AM [facility] Glucose 128(H) 70 - 100 mg/dL LAB CHEMISTRY METHOD 11/12/2024 9:25 AM [facility] BUN 7 5 - 25 mg/dL LAB CHEMISTRY METHOD 11/12/2024 9:25 AM [facility] Creatinine 0.76 0.50 - 1.10 mg/dL LAB CHEMISTRY METHOD 11/12/2024 9:25 AM [facility] eGFR 97 >=60 mL/min/1. 73m2 LAB CHEMISTRY METHOD 11/12/2024 9:25 AM [facility] Comment:Calculation based on the Chronic Kidney Disease Epidemiology Collaboration (CKD-EPI) equation refit without adjustment for race. BUN/Creatinine Ratio 9.2 LAB CHEMISTRY METHOD 11/12/2024 9:25 AM [facility] Calcium 9.5 8.5 - 10.5 mg/dL LAB CHEMISTRY METHOD 11/12/2024 9:25 AM [facility] AST (SGOT) 27 10 - 42 unit/L LAB CHEMISTRY METHOD 11/12/2024 9:25 AM [facility] Comment:Hemolysis present ALT (SGPT) 27 10 - 60 unit/L LAB CHEMISTRY METHOD 11/12/2024 9:25 AM [facility] Alkaline Phosphatase 108 42 - 121 unit/L LAB CHEMISTRY METHOD 11/12/2024 9:25 AM [facility] Total Protein 9.1(H) 6.0 - 8.0 g/dL LAB CHEMISTRY METHOD 11/12/2024 9:25 AM [facility] Albumin 4.8 3.2 - 5.0 g/dL LAB CHEMISTRY METHOD 11/12/2024 9:25 AM [facility] Total Bilirubin 0.5 0.0 - 1.4 mg/dL LAB CHEMISTRY METHOD 11/12/2024 9:25 AM [facility] Blood Venous blood specimen / Unknown Venipuncture / Unknown 11/12/2024 8:42 AM EDT 11/12/2024 8:57 AM EDT us Indra Beach MD LAB BLOOD ORDERABLES Final Resul t [facility] [address] [place] [address], [place] [phone] from Last 3 Months Insurance MEDICARE [place]ICA[place] - [place] Advance Directives * Full Code - Default [...] currently active code status orders. Care Teams Vp Patient Relationship Specialty Start Date End Date Lisseth Nassar NP [address] [place] [address] PCP - General 07/07/21
--- OUTSIDE RECORDS SUMMARY | 2025-01-07 13:10 | XMS_ITS | Clinical Summary ---
Author Organization [facility] Address [address] [place] [address] Care Team Providers Care Manager Warehouse Name Role Phone Unavailable Primary Care Provider [...] Screening (Colonoscopy) 2021 COVID-19 Vaccine ( season) 2024 07/13/2020, 06/21/2020 Influenza Vaccine (#1) 2024 , 04/26/2019, 12/27/2017, Additional history exists Pneumococcal Vaccine Aged Out No long er eligible based on patient's age to complete this topic RSV Ped < 20 months Aged Out No longe r eligible based on patient's age to complete this topic
--- OUTSIDE RECORDS SUMMARY | 2025-01-07 13:10 | XMS_ITS | Encounter Summary ---
Author Organization [facility] Address [address] [place] [phone] Phone Care Team Providers Care Tower Equipment Repairer Name Role Phone Romeo Jacobson MD Primary Care Provid er Lisseth Nassar JUSTICE COURT DEPUTY CLERK Unavailable [phone] Encounter Details Date Type Department Care Team (Late st Contact Info) Description 12/08/2023 Procedure Pass OR Admitting Dept - Virtual Department [address] [place] [address] Social History Tobacco Use Types Packs/Day Years [...] on filedocumented in this encounter Care Teams Tower Equipment Repairer Relationship Specialty Start Date End Date Romeo Jacobson MD [address] [place] [id number] PCP - General Internal Medicine 09/04/20 Lisseth Nassar NP [address] [place] [id number] [email or web address] Nurse Practitioner Family Medicine 09/04/20 documented as of this encounter Additional Source Comments The information contained in this document represents components of the legal health record. It is not the complete legal health record.[facility]
--- OUTSIDE RECORDS SUMMARY | 2025-01-07 13:10 | XMS_ITS | Clinical Summary ---
Author Organization [facility] Address [address] [address] Phone Care Team Providers Care Electronic Imaging System Operator Name Role Phone Romeo Jacobson MD Primary Care Provid er Lisseth Nassar CHAIN FORMING MACHINE OPERATOR Unavailable [phone] Allergies Active Allergy Reactions Criticality Noted Date Comments Fentanyl Other (See Comments) 02/09/2022 Haloperidol Feeling Irritable Low 02/18/2022 Morphine Low 09/08/2020 Redness around the site Nsaids (Non-Steroidal Anti-Inflammatory Drug) Other (See Comments) 09/08/2020 GI bleeding Sertraline Other (See Comments) 09/08/2020 interferes withQT waves of heart changed my QT interval has a tent finisher Sulfa (Sulfonamide Antibiotics) Rash Low 02/09/2022 Sulfamethoxazole-Trimet [...] 1 TO 3 TS PO HS PRF SOFTWARE PACKAGER Active scopolamine (TRANSDERM-SCOP) 1 mg over 3 [...] topic Medical Devices Not on file [place] [address] [place] [address] MEDICARE PART A & [address] [place] [address]HE[place] MEDICARE PART A & [place] [address] [place] [address] MEDICARE PART A & [address] [place] [address] MEDICARE PART A & [facility] & [facility] & B [facility] MED[facility] PART A & B Care Teams Electronic Imaging System Operator Relationship Specialty Start Date End Date Romeo Jacobson MD [address] [place] [address] PCP - General Internal Medicine 09/04/20 Lisseth Nassar NP [address] [place] [address] [email or web address] Practitioner Family Medicine 09/04/20 Additional Source Comments The information contained in this document represents components of the legal health record. It is not the complete legal health record.[facility]
--- OUTSIDE RECORDS SUMMARY | 2025-01-07 13:10 | XMS_ITS | Encounter Summary ---
Author Organization [facility] Address [address] [facility] [address] [place] [address] Phone Care Team Providers Care Brain Wave Technician Name Role Phone Romeo Jacobson MD Primary Care Provid er Lisseth Nassar HAND HARDENER Unavailable [phone] Encounter Details Date Type Department Care Team (Late st Contact Info) Description 10/15/2020 [facility] [address] [facility], [address] [place] [address] Angelika Byrne, CALL CENTER TRAINER [address] [facility] [address] [place] [address] [email or web address] Social History Tobacco Use Types Packs/Day Years [...] on filedocumented in this encounter Care Teams Brain Wave Technician Relationship Specialty Start Date End Date Romeo Jacobson MD [address] [place] [address] PCP - General Internal Medicine 09/04/20 Lisseth Nassar NP [address] [place] [address] [email or web address] Nurse Practitioner Family Medicine 09/04/20 documented as of this encounter Additional Source Comments The information contained in this document represents components of the legal health record. It is not the complete legal health record.[facility]
== END 2025-01-07 12:10 | disposition home or self-care (01) ==
LOC: HO.HGI 10:45
PROVIDERS: PCP Nurse Practitioner Family; Visit Provider Internal Medicine Gastroenterology
DX: R10.13 Epigastric pain (principal); K52.9 Noninfective gastroenteritis and colitis, unspecified
CPT/HCPCS: 99214

== ENCOUNTER 2025-01-07 12:21 | Emergency (ER) | payer MEDICARE, MEDICAID, SELFPAY ==
--- OUTSIDE RECORDS SUMMARY | 2025-01-04 23:59 | XMS_ITS | Continuity of Care Document ---
Author Organization 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 Encounter Type: Triage Allergies, Adverse Reactions, Alerts Substance Criticality Severity Reaction Reaction Severity Status sulfADIAZINE rash Active sertraline 1 QT wave change Ac tive sulfa drugs rash Active NSAIDs She can't take NSAIDs secondary to gastric bypass Active fentanyl topical passed out Ac tive Haldol Agitation Active Bactrim rash Active 1 changed my QT interval has a welt edge rounder Immunizations Given and Recorded Vaccine Date Status Refusal Reason influenza virus vaccine, inactivated 12/30/23 Give n influenza virus vaccine, inactivated 05/30/23 Give n influenza virus vaccine, inactivated 04/14/22 Give n influenza virus vaccine, inactivated 03/16/20 Anthony rded influenza virus vaccine, inactivated 04/26/19 Anthony rded influenza virus vaccine, inactivated 12/27/17 Give n influenza virus vaccine, inactivated 01/06/16 Give n influenza virus vaccine, inactivated 03/13/15 Give n influenza virus vaccine, inactivated 10/21/13 Anthony rded influenza virus vaccine, inactivated 1 12/24/09 Gi cecilia tetanus-diphtheria toxoids (Td) 09/03/20 Given SARS-CoV-2 (COVID-19) mRNA BNT-162b2 vac 07/13/20 Recorded SARS-CoV-2 (COVID-19) mRNA BNT-162b2 vac 06/21/20 Recorded tetanus/diphtheria/pertussis, acel(Tdap) 05/29/13 Given Hepatitis B Vaccine (old term) 2 12/24/09 Given Hepatitis B Vaccine (old term) 10/19/04 Given 1Admin Note: VIS 10/21/09 2Admin Note: vis 09/28/2006 Medications Aerochamber See Instructions, # 1 each, Maintenance, always use with inhaler, 08/03/24 12:30:00 PM EDT, Supply, 166, cm, 08/03/24 11:50:00 EDT, Height, 70.8, kg, 10/13/23 13:03:00 EDT, Dry Weight Start Date: 08/03/24 Status: Ordered Medication Dispense Status: Completed Quantity: 1.0 Unit: each Total Allowed Fills: 1 Fills Dispensed: 0 Albuterol (Eqv-Ventolin HFA) 90 mcg/inh inhalation aerosol 2 puffs, Inhalation, Every 4 hours, PRN cough, SOB, wheeze, # 18 Gm, 0 Refills, Maintenance, 08/03/24 12:30:00 PM EDT, [facility] #[id number], with dose counter. any albuterol inhaler covered by insurance is fine., 2 puffs Inhalation Every 4 hours,PRN:cough, SOB, wheeze, 166, cm, 08/03/24 11:50:00 EDT, Height, 70.8, kg, 10/13/23 13:03:00 EDT, Dry Weight Start Date: 08/03/24 Status: Ordered Medication Dispense Status: Completed Quantity: 18.0 Unit: g Total Allowed Fills: 1 Fills Dispensed: 0 Ambien 5 mg oral tablet 1 tablet = 5 mg, By Mouth, Daily at bedtime, PRN Insomnia, 0 Refills, Maintenance, 07/10/21 11:47:00AM EDT, Partial fill upon patient request if the prescription is for a schedule II opioid drug. Start Date: 07/10/21 Status: Ordered Medication Dispense Status: Completed Total Allowed Fills: 1 Fills Dispensed: 0 amLODIPine 2.5 mg oral tablet 0 Refills, Maintenance, 07/09/24 12:21:00 PM EDT, Partial fill upon patient request if the prescription is for a schedule II opioid drug. Start Date: 07/09/24 Status: Ordered Medication Dispense Status: Completed Total Allowed Fills: 1 Fills Dispensed: 0 Arnuity Ellipta 100 mcg inhalation powder 1 inhalation = 100 mcg, Inhalation, Every 24 hours, to replace flovent, # 1 each, 11 Refills, Maintenance, 05/04/24 12:32:00 PM EST, Powder, [facility] #[id number], Partial fill upon patient request if the prescription is for a schedule II opioid drug., 166, cm, 04/23/24 15:09:00 EST, Height, 70.8, kg, 10/13/23 13:03:00 EDT, Dry Weight Start Date: 05/04/24 Status: Ordered Medication Dispense Status: Completed Quantity: 1.0 Unit: each Total Allowed Fills: 12 Fills Dispensed: 0 azelastine 137 mcg/inh (0.1%) nasal spray 2 sprays = 274 mcg, Nares, Both, 2 times a day, PRN Nasal Congestion, # 30 mL, 0 Refills, Maintenance, 08/03/24 12:31:00 PM EDT, [place], [facility] #[id number], Partial fill upon patient request if the prescription is for a schedule II opioid drug., 2 sprays Nares, Both 2 times a day,PRN:Nasal Congestion, 166, cm, 08/03/24 11:50:00 EDT, Height, 70.8, kg, 10/13/23 13:03:00 EDT, Dry Weight Start Date: 08/03/24 Status: Ordered Medication Dispense Status: Completed Quantity: 30.0 Unit: mL Total Allowed Fills: 1 Fills Dispensed: 0 Bedside Commode See Instructions, # 1 each, Maintenance, please dispense bedside commode Dx M48.00, M54.5, R10.9, M17.10; length of need 99, 04/16/19 11:58:00 AM EST, Compound Start Date: 04/16/19 Status: Ordered Medication Dispense Status: Completed Quantity: 1.0 Unit: each Total Allowed Fills: 1 Fills Dispensed: 0 Carvedilol 6.25 mg, By Mouth, Refills 0, Maintenance, 08/03/24 11:51:00 AM EDT, Partial fill upon patient request if the prescription is for a schedule II opioid drug. Start Date: 08/03/24 Status: Ordered Medication Dispense Status: Completed Total Allowed Fills: 1 Fills Dispensed: 0 cetirizine 10 mg oral tablet 1 tablet = 10 mg, By Mouth, Daily, PRN allergies, # 90 tablet, 0 Refills, Maintenance, 08/03/24 12:31:00 PM EDT, Tablet, [facility] #[id number], Partial fill upon patient request if the prescription is for a schedule II opioid drug., 166, cm, 08/03/24 11:50:00 EDT, Height, 70.8, kg, 10/13/23 13: 03:00 EDT, Dry Weight Start Date: 08/03/24 Status: Ordered Medication Dispense Status: Completed Quantity: 90.0 Unit: tablet Total Allowed Fills: 1 Fills Dispensed: 0 clonazePAM 1 mg oral tablet 1 tablet = 1 mg, By Mouth, 3 times a day, FALGUNI luo, # 90 tablet, 0 Refills, Maintenance, 12/20/24 11:59:00 AM EDT, Tablet, [facility] #[id number], Partial fill upon patient request if the prescription is for a schedule II opioid drug. OK to fill now (early) - pt spilled tea into her bottle and pills were ruined, 166, cm, 11/14/24 10:19:00 EDT, Height, 70.8, kg, 11/13/24 19:12:00 EDT, Dry Weight Start Date: 12/20/24 Status: Ordered Medication Dispense Status: Completed Quantity: 90.0 Unit: tablet Total Allowed Fills: 1 Fills Dispensed: 0 Comfort shield barrier cream cloths Comfort shield barrier cream cloths, See Instructions, # 10 each, Refills 11, Tot. Refills 11, Maintenance, Dx R32, 11/25/23 11:08:00 AM EDT, Supply Start Date: 11/25/23 Status: Ordered Medication Dispense Status: Completed Quantity: 10.0 Unit: each Total Allowed Fills: 12 Fills Dispensed: 0 Compression Stockings See Instructions, # 2 each, Refills 2, Tot. Refills 2, Maintenance, surgical, calf length 20-30 mm Hg, Dx lower leg edema R60.0, 05/11/19 4:43:00 PM EST, Compound Start Date: 05/11/19 Status: Ordered Medication Dispense Status: Completed Quantity: 2.0 Unit: each Total Allowed Fills: 3 Fills Dispensed: 0 Diapers See Instructions, # 90 each, Refills 11, Tot. Refills 11, Maintenance, medium pull ups; Dx R32, N30.10, 12/30/23 11:54:00 AM EDT, Supply Start Date: 12/30/23 Status: Ordered Medication Dispense Status: Completed Quantity: 90.0 Unit: each Total Allowed Fills: 12 Fills Dispensed: 0 disposable andrea pads disposable andrea pads, See Instructions, # 90 each, Refills 11, Tot. Refills 11, Maintenance, Dx R32, N30.10, 03/23/24 4:22:00 PM EST, Supply Start Date: 03/23/24 Status: Ordered Medication Dispense Status: Completed Quantity: 90.0 Unit: each Total Allowed Fills: 12 Fills Dispensed: 0 Fesoterodine 8 mg oral tablet, extended release TAKE 1 TABLET BY MOUTH DAILY Start Date: 08/19/23 Status: Ordered Medication Dispense Status: Completed Total Allowed Fills: 1 Fills Dispensed: 0 fluconazole 150 mg oral tablet 1 tablet = 150 mg, By Mouth, Once, # 1 tablet, 0 Refills, Soft Stop, 09/13/24 1:44:00 PM EDT, Tablet,[facility] #[id number], Partial fill upon patient request if the prescription is for a schedule II opioid drug., 166, cm, 08/03/24 11:50:00 EDT, Height, 70.8, kg, 10/13/23 13:03:00 EDT, Dry Weight Start Date: 09/13/24 Status: Ordered Medication Dispense Status: Completed Quantity: 1.0 Unit: tablet Total Allowed Fills: 1 Fills Dispensed: 0 Home Blood Pressure Monitor See Instructions, # 1 each, Refills 0, Tot. Refills 0, Maintenance, Use to measure blood pressure at rest daily. Dx HTN on Rx I10, 11/01/19 5:06:00 PM EDT, Supply Start Date: 11/01/19 Status: Ordered Medication Dispense Status: Completed Quantity: 1.0 Unit: each Total Allowed Fills: 1 Fills Dispensed: 0 Indications: Essential (primary) hypertension; HydroCORTisone 5 mg oral tablet 0 Refills, Maintenance, 07/09/24 12:20:00 PM EDT, Partial fill upon patient request if the prescription is for a schedule II opioid drug. Start Date: 07/09/24 Status: Ordered Medication Dispense Status: Completed Total Allowed Fills: 1 Fills Dispensed: 0 hydrOXYzine pamoate 25 mg oral capsule 0 Refills, Maintenance, 07/09/24 12:21:00 PM EDT, Partial fill upon patient request if the prescription is for a schedule II opioid drug. Start Date: 07/09/24 Status: Ordered Medication Dispense Status: Completed Total Allowed Fills: 1 Fills Dispensed: 0 medical alert bracelet medical alert bracelet, See Instructions, # 1 each, Refills 0, Tot. Refills 0, Maintenance, Dx M48,M51.36, G89.29, 02/29/24 8:44:00 AM EST, Supply Start Date: 02/29/24 Status: Ordered Medication Dispense Status: Completed Quantity: 1.0 Unit: each Total Allowed Fills: 1 Fills Dispensed: 0 mesalamine 0.375 g oral capsule, extended release 0 Refills, Maintenance, 07/09/24 12:21:00 PM EDT, Partial fill upon patient request if the prescription is for a schedule II opioid drug. Start Date: 07/09/24 Status: Ordered Medication Dispense Status: Completed Total Allowed Fills: 1 Fills Dispensed: 0 Movantik 25 mg oral tablet 0 Refills, Maintenance, 07/09/24 12:22:00 PM EDT, Partial fill upon patient request if the prescription is for a schedule II opioid drug. Start Date: 07/09/24 Status: Ordered Medication Dispense Status: Completed Total Allowed Fills: 1 Fills Dispensed: 0 Nebulizer/Compressor See Instructions, # 1 each, Refills 11, Tot. Refills 11, Maintenance, please dispense nebulizer supplies to be used with albuterol Dx J45.909, 10/22/20 9:02:00 AM EDT, Compound Start Date: 10/22/20 Status: Ordered Medication Dispense Status: Completed Quantity: 1.0 Unit: each Total Allowed Fills: 12 Fills Dispensed: 0 Indications: Unspecified asthma with (acute) exacerbation; Nebulizer/Compressor See Instructions, # 1 each, Maintenance, please dispense one nebulizer to be used with albuterol DxJ45.909, 05/07/19 10:44:00 AM EST, Compound Start Date: 05/07/19 Status: Ordered Medication Dispense Status: Completed Quantity: 1.0 Unit: each Total Allowed Fills: 1 Fills Dispensed: 0 nortriptyline 75 mg oral capsule 75 mg, 1, capsule, By Mouth, Daily at bedtime, # 30 capsule, Refills 6, Tot. Refills 6, Maintenance, 03/22/24 10:34:00 AM EST, Route to Pharmacy Electronically, [facility] #[id number], Partial fill upon patient request if the prescription is for a schedule II opioid drug., 166, cm, 03/22/24 9:51:00 EST, Height, 70.8, kg, 10/13/23 13:03:00 EDT, Dry Weight Start Date: 03/22/24 Status: Ordered Medication Dispense Status: Completed Quantity: 30.0 Unit: capsule Total Allowed Fills: 7 Fills Dispensed: 0 oxyCODONE 15 mg oral tablet See Instructions, IR 1 tablet By Mouth three times a day, every hours as needed for moderate to severe pain. FALGUNI PAt checked. Last visit: 11-15. Nexf fill: 12-12-2024., # 84 tablet, 0 Refills, Maintenance, 01/04/25 2:49:00 PM EDT, Tablet, [facility] #[id number], Partial fill upon patient request if the prescription is for a schedule II opioid drug., 166, cm, 11/14/24 10:19:00 EDT, Height, 70.8, kg, 11/13/24 19:12:00 EDT, Dry Weight Start Date: 01/04/25 Status: Ordered Medication Dispense Status: Completed Quantity: 84.0 Unit: tablet Total Allowed Fills: 1 Fills Dispensed: 0 pantoprazole 40 mg oral delayed release tablet 1 tablet = 40 mg, By Mouth, 2 times a day, to replace lansoprozole, # 60 tablet, 6 Refills, Maintenance, 09/20/23 11:07:00 AM EDT, CR Tablet, 166, cm, 09/20/23 7:36:00 EDT, Height, 69.3, kg, 09/16/23 16:46:00 EDT, Dry Weight Start Date: 09/20/23 Stop Date: 04/17/24 Status: Ordered Medication Dispense Status: Completed Quantity: 60.0 Unit: tablet Total Allowed Fills: 7 Fills Dispensed: 0 predniSONE 10 mg oral tablet See Instructions, 2 tablet By Mouth Daily for 4 days, then 1 tablet daily for 4 days, then half tablet daily for 4 days, # 14 tablet, 0 Refills, Maintenance, 08/03/24 12:29:00 PM EDT, Tablet, [facility] #[id number], Partial fill upon patient request if the prescription is for a schedule II opioid drug., 166, cm, 08/03/24 11:50:00 EDT, Height, 70.8, kg, 10/13/23 13:03:00 EDT, Dry Weight Start Date: 08/03/24 Status: Ordered Medication Dispense Status: Completed Quantity: 14.0 Unit: tablet Total Allowed Fills: 1 Fills Dispensed: 0 QUEtiapine 50 mg oral tablet 0 Refills, Maintenance, 07/09/24 12:20:00 PM EDT, Partial fill upon patient request if the prescription is for a schedule II opioid drug. Start Date: 07/09/24 Status: Ordered Medication Dispense Status: Completed Total Allowed Fills: 1 Fills Dispensed: 0 raised toilet seat raised toilet seat, See Instructions, # 1 each, Refills 0, Tot. Refills 0, Maintenance, please dispense one raised toilet seat Dx M48, M54.16, M54.5, 03/20/18 1:26:38 PM EST, Compound Start Date: 03/20/18 Status: Ordered Medication Dispense Status: Completed Quantity: 1.0 Unit: each Total Allowed Fills: 1 Fills Dispensed: 0 Indications: Radiculopathy, lumbar region; Spinal stenosis, site unspecified; Low back pain; ready fresh bathing wipes ready fresh bathing wipes, See Instructions, # 30 each, Refills 11, Tot. Refills 11, Maintenance, M48, M51.36, G89.29, R32, 02/29/24 8:44:00 AM EST, Supply Start Date: 02/29/24 Status: Ordered Medication Dispense Status: Completed Quantity: 30.0 Unit: each Total Allowed Fills: 12 Fills Dispensed: 0 Shower Bar See Instructions, # 1 each, Maintenance, please dispense shower bar Dx M48.00, M54.5, R10.9, M17.10; length of need 99, 04/16/19 11:58:00 AM EST, Compound Start Date: 04/16/19 Status: Ordered Medication Dispense Status: Completed Quantity: 1.0 Unit: each Total Allowed Fills: 1 Fills Dispensed: 0 Side bed rails Side bed rails, See Instructions, # 2 each, Refills 0, Tot. Refills 0, Maintenance, DC M17.1, M54.16, M54.5, R60.0, 02/20/21 9:38:00 AM EST, Supply Start Date: 02/20/21 Status: Ordered Medication Dispense Status: Completed Quantity: 2.0 Unit: each Total Allowed Fills: 1 Fills Dispensed: 0 Singulair 10 mg oral tablet 10 mg, 1, tablet, By Mouth, Daily in PM, # 90 tablet, Refills 3, Tot. Refills 3, Maintenance, 09/25/24 10:33:00 AM EDT, [id number], 166, cm, 09/25/2509:14:00 EDT, Height, 70.8, kg, 10/13/23 13:03:00 EDT, Dry Weight Start Date: 09/25/24 Stop Date: 09/20/25 Status: Ordered Medication Dispense Status: Completed Quantity: 90.0 Unit: tablet Total Allowed Fills: 4 Fills Dispensed: 0 sucralfate 1 gm oral tablet Refills 0, Maintenance, 07/09/24 12:21:00 PM EDT, Partial fill upon patient request if the prescription is for a schedule II opioid drug. Start Date: 07/09/24 Status: Ordered Medication Dispense Status: Completed Total Allowed Fills: 1 Fills Dispensed: 0 Transfer Bench See Instructions, # 1 each, Maintenance, Dx M48, M54.16, M54.5, 03/20/18 1:26:26 PM EST, Compound Start Date: 03/20/18 Status: Ordered Medication Dispense Status: Completed Quantity: 1.0 Unit: each Total Allowed Fills: 1 Fills Dispensed: 0 Indications: Radiculopathy, lumbar region; Spinal stenosis, site unspecified; Low back pain; Walker See Instructions, # 1 each, Maintenance, Please dispense one front wheeled walker Dx M48, M54.16, M54.5, 03/20/18 1:25:58 PM EST, Compound Start Date: 03/20/18 Status: Ordered Medication Dispense Status: Completed Quantity: 1.0 Unit: each Total Allowed Fills: 1 Fills Dispensed: 0 Wheelchair See Instructions, # 1 each, Maintenance, Please dispense 1 large wheelchair with elevated leg rest;Ht 167cm, wt 100kg length of need 99mo Dx M17.1, M54.16, 06/29/19 2:53:00 PM EDT, Compound Start Date: 06/29/19 Status: Ordered Medication Dispense Status: Completed Quantity: 1.0 Unit: each Total Allowed Fills: 1 Fills Dispensed: 0 Xtampza ER 18 mg oral capsule, extended release 3 capsule = 54 mg, By Mouth, Every 12 hours, with food; pt on CSA; May fill on/after 10/29/24; may fill less; MassPat checked, # 180 capsule, 0 Refills, Maintenance, 12/15/24 9:30:00 AM EDT, ER Capsule, [facility] #[id number], Partial fill upon patient request if the prescription is for a schedule II opioid drug., 166, cm, 11/14/24 10:19:00 EDT, Height, 70.8, kg, 11/13/24 19:12:00 EDT, Dry Weight Start Date: 12/15/24 Status: Ordered Medication Dispense Status: Completed Quantity: 180.0 Unit: capsule Total Allowed Fills: 1 Fills Dispensed: 0 Problem List Condition Confirmation Course Effective Dates Status H ealth Status Informant Anxiety Confirmed Active Asthma Confirmed Active Bipolar disorder - is on depakote Confirmed Active History of LSIL 01/02/14 and ASCUS HPV+ 02/23/11, otherwise all paps normal. Last pap smear 04/29/16 negative. Confirmed Active Chronic abdominal pain Confirmed Active Interstitial cystitis Confirmed Active Chronic sinusitis Confirmed Active DDD (degenerative disc disease), lumbar Confirmed Active Discoloration of skin Confirmed Active Plantar fascia rupture Confirmed Active Dysmenorrhea Confirmed Active Pedal edema Confirmed Active Lower leg edema Confirmed Active Known history of pelvic adhesions [...] Confirmed Active Hypertension 1 Confirmed 1998 Active Adrenal insufficiency Confirmed Active Hypokalemia Confirmed Active Low back pain Confirmed Active Multiple environmental allergies Confirmed Active Nonallergic rhinitis Confirmed Active Obesity Confirmed Active Obstructive sleep apnea Confirmed Active Osteoarthritis of knee Confirmed Active Controlled substance agreement signed 10/10/24 2 Confirmed Active Palpitation Confirmed Active Pancreatitis Confirmed Active Allergic sinusitis 3 Confirmed Active Spinal stenosis Confirmed Active Takotsubo syndrome Confirmed Active Stress-induced cardiomyopathy Confirmed Active UI (urinary incontinence) Confirmed Active 1began in 3rd 2Spilled tea on benzodiazepine and requested early refill 3allergy testing showed dust mites, mold, cats, dogs, maple, oak; starting immunotherapy 07/2015 Social History Social History Type Response Smoking Status Never (less than 100 in lifetime) entered on: 07/09/24 Sexual Orientation Self described orien tation: ; Straight or heterosexual Sex Sex Representation Female (finding) Patient Care team information Care Team Personnel Name: Artemio Contreras RN Position: [facility] RN Member Role: Primary Care Nurse Name: Romeo Jacobson MD Position: S Physician - Primary Care Member Role: PCP Address: [address] [place] [id number]- Telecom: Name: Moses VASQUEZ, July Pwa Position: S RN Member Role: Primary Care Nurse Name: Tristin Hunt RN Position: [facility] RN Member Role: Primary Care Nurse Name: Edenilson Puckett MD Position: [facility] MARKETING SUPPORT ASSISTANT MD Member Role: Lifetime MARKETING SUPPORT ASSISTANT Physician Name: Jovana Park RN Position: [facility] SN RN Member Role: Primary Care Nurse Name: Ana Maria Grady RN Position: [facility] RN Supv Member Role: Primary Care Nurse Name: Fabiana Williamson RN Position: [facility] RN Member Role: Primary Care Nurse Name: María Silverman RN Position: [facility] RN Member Role: Primary Care Nurse Name: Lina Delgado RN Position: [facility] RN Member Role: Primary Care Nurse Name: Chidi Clark DO Position: [facility] Renal MD Member Role: Lifetime Consulting Physician Address: [address] [place], [place] [address] [address] Telecom: Name: Mireya Torres RN Position: [facility] RN Member Role: Primary Care Nurse Name: Starr aHrper RN Position: [facility] AMB Nurse Member Role: Primary Care Nurse Name: Tiana Vicente RN Position: [facility] RN Member Role: Primary Care Nurse Name: Tristin Hill RN Position: [facility] RN Member Role: Primary Care Nurse Name: Nisreen Tristan RN Position: [facility] RN Member Role: Primary Care Nurse Name: Kelly Maddox RN Position: [facility] RN Member Role: Primary Care Nurse Care Team Related Persons Name: MARYAN STYLES Name: MARYA ADRIAN Name: MORALES HOWELL Insurance Providers Guarantor name: DIANNE HOWELL Health Plan Information #: 1 Payer: MEDICARE B Payer Identifier: Member Number: [id number] Group Number: Subscriber Identifier: Relationship to Subscriber: self Coverage Type: NA Coverage Verification Date: NA Telecom: NA Address: NA Health Plan Information #: 2 Payer: [employer] Payer Identifier: Member Number: [id number] Group Number: Subscriber Identifier: Relationship to Subscriber: self Coverage Type: MEDICAID Coverage Verification Date: NA Telecom: NA Address:
--- OUTSIDE RECORDS SUMMARY | 2025-01-05 23:59 | XMS_ITS | Continuity of Care Document ---
Author Organization [facility] Address [address] [place] [address]- Care Team Providers Care Pier Hand Helper Name Role Phone Romeo Jacobson MD Primary Care Physician Encounter [facility] Date(s): 12/06/24 - 01/05/[address] [address] Encounter Type: Triage Allergies, Adverse Reactions, Alerts Substance Criticality Severity Reaction Reaction Severity Status sulfADIAZINE rash Active sertraline 1 QT wave change Ac tive sulfa drugs rash Active NSAIDs She can't take NSAIDs secondary to gastric bypass Active fentanyl topical passed out Ac tive Haldol Agitation Active Bactrim rash Active 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 any albuterol inhaler covered [...] Refills, Maintenance, 05/04/24 12:32:00 PM EST, [place], [email or web address] #[id number], Partial fill upon patient request if the [...] 0 Refills, Maintenance, 08/03/24 12:31:00 PM EDT, [place], [email or web address] #[id number], Partial fill upon patient request if the [...] Refills, Maintenance, 08/03/24 12:31:00 PM EDT, [place], [email or web address] #[id number], Partial fill upon patient request if the [...] Refills, Maintenance, 12/20/24 11:59:00 AM EDT, [place], [email or web address] #[id number], Partial fill upon patient request if the [...] Refills, Soft Stop, 09/13/24 1:44:00 PM EDT, [place],[email or web address] #[id number], Partial fill upon patient request if the [...] 10:34:00 AM EST, Route to Pharmacy Electronically, [facility][id number], Partial fill upon patient request if the [...] Refills, Maintenance, 01/04/25 2:49:00 PM EDT, [place], [facility] #[id number], Partial fill upon patient request if the [...] Refills, Maintenance, 08/03/24 12:29:00 PM EDT, [place], [email or web address] #[id number], Partial fill upon patient request if the [...] 10:33:00 AM EDT, [id number], 166, cm, 09/25/2509:14:00 EDT, Height, 70.8, kg, [...] Maintenance, 12/15/24 9:30:00 AM EDT, ER Capsule, [email or web address] #[id number], Partial fill upon patient request if the [...] Team Personnel Name: Artemio Contreras RN Position: [facility] RN Member Role: Primary Care Nurse Name: Romeo Jacobson MD Position: S Physician - Primary Care Member Role: PCP Address: [address] [place] [address]- Telecom: Name: Moses VASQUEZ, July Pwa Position: S RN Member Role: Primary Care Nurse Name: Tristin Hunt RN Position: [facility] RN Member Role: Primary Care Nurse Name: Edenilson Puckett MD Position: [facility] ANTIQUE AUTOMOBILES REPAIRER MD Member Role: Lifetime ANTIQUE AUTOMOBILES REPAIRER Physician Name: Jovana Park RN Position: [facility] SN RN Member Role: Primary Care Nurse Name: Ana Maria Grady RN Position: [facility] RN Supv Member Role: Primary Care Nurse Name: Fabiana Williamson RN Position: [facility] RN Member Role: Primary Care Nurse Name: María Silverman RN Position: [facility] RN Member Role: Primary Care Nurse Name: Lina Delgado RN Position: [facility] RN Member Role: Primary Care Nurse Name: Chidi Clark DO Position: [facility] Renal MD Member Role: Lifetime Consulting Physician Address: [address] [place], [place] [address] [address] Telecom: Name: Mireya Torres RN Position: [facility] RN Member Role: Primary Care Nurse Name: Starr Harper RN Position: [facility] AMB Nurse Member Role: Primary Care Nurse Name: Tiana Vicente RN Position: [facility] RN Member Role: Primary Care Nurse Name: Tristin Hill RN Position: [facility] RN Member Role: Primary Care Nurse Name: Nisreen Tristan RN Position: [facility] RN Member Role: Primary Care Nurse Name: Kelly Maddox RN Position: [facility] RN Member Role: Primary Care Nurse Care Team Related Persons Name: MARYAN STYLES Name: MARYA ADRIAN Name: MORALES HOWELL Insurance Providers Guarantor name: DIANNE HOWELL Health Plan Information #: 1 Payer: MEDICARE B Payer Identifier: Member Number: [id number] Group Number: Subscriber Identifier: Relationship to Subscriber: self Coverage Type: NA Coverage Verification Date: NA Telecom: NA Address: NA Health Plan Information #: 2 Payer: [employer]ER [employer] Payer Identifier: Member Number: [id number] Group Number: Subscriber Identifier: Relationship to Subscriber: self Coverage Type: MEDICAID Coverage Verification Date: NA Telecom: NA Address:
--- OUTSIDE RECORDS SUMMARY | 2025-01-06 23:59 | XMS_ITS | Continuity of Care Document ---
Author Organization [facility] Address [address] [place] [address]- Care Team Providers Care Educational Coordinator Name Role Phone Romeo Jacobson MD Primary Care Physician Encounter [facility] Date(s): 12/07/24 - 01/06/[address] [address] Encounter Type: Triage Allergies, Adverse Reactions, Alerts Substance Criticality Severity Reaction Reaction Severity Status sulfADIAZINE rash Active sertraline 1 QT wave change Ac tive sulfa drugs rash Active NSAIDs She can't take NSAIDs secondary to gastric bypass Active fentanyl topical passed out Ac tive Haldol Agitation Active Bactrim rash Active 1 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 any albuterol inhaler covered [...] Refills, Maintenance, 05/04/24 12:32:00 PM EST, [place], [facility] #[id number], Partial fill upon patient request if the [...] 0 Refills, Maintenance, 08/03/24 12:31:00 PM EDT, [place], [facility] #[id number], Partial fill upon patient request if the [...] Refills, Maintenance, 08/03/24 12:31:00 PM EDT, [place], [facility] #[id number], Partial fill upon patient request if the [...] Refills, Maintenance, 12/20/24 11:59:00 AM EDT, [place], [facility] #[id number], Partial fill upon patient request if the [...] Refills, Soft Stop, 09/13/24 1:44:00 PM EDT, [place],[facility][id number], Partial fill upon patient request if the [...] 10:34:00 AM EST, Route to Pharmacy Electronically, [facility] #[id number], Partial fill upon patient request if the [...] Refills, Maintenance, 01/04/25 2:49:00 PM EDT, [place], [facility] #[id number], Partial fill upon patient request if the [...] Refills, Maintenance, 08/03/24 12:29:00 PM EDT, [place], [facility] #[id number], Partial fill upon patient request if the [...] 10:33:00 AM EDT, [id number], 166, cm, 09/25/2509:14:00 EDT, Height, 70.8, kg, [...] Maintenance, 12/15/24 9:30:00 AM EDT, ER Capsule, [facility] #[id number], Partial fill upon patient request if the [...] Team Personnel Name: Artemio Contreras RN Position: [facility] RN Member Role: Primary Care Nurse Name: Romeo Jacobson MD Position: S Physician - Primary Care Member Role: PCP Address: [address] [place] [address]- Telecom: Name: Moses VASQUEZ, July Pwa Position: S RN Member Role: Primary Care Nurse Name: Tristin Hunt RN Position: [facility] RN Member Role: Primary Care Nurse Name: Edenilson Puckett MD Position: [facility] VEGETABLE FARM MANAGER MD Member Role: Lifetime VEGETABLE FARM MANAGER Physician Name: Jovana Park RN Position: [facility] SN RN Member Role: Primary Care Nurse Name: Ana Maria Grady RN Position: [facility] RN Supv Member Role: Primary Care Nurse Name: Fabiana Williamson RN Position: [facility] RN Member Role: Primary Care Nurse Name: María Silverman RN Position: [facility] RN Member Role: Primary Care Nurse Name: Lina Delgado RN Position: [facility] RN Member Role: Primary Care Nurse Name: Chidi Clark DO Position: [facility] Renal MD Member Role: Lifetime Consulting Physician Address: [address] [place], [place] [address] [address] Telecom: Name: Mireya Torres RN Position: [facility] RN Member Role: Primary Care Nurse Name: Starr Harper RN Position: [facility] AMB Nurse Member Role: Primary Care Nurse Name: Tiana Vicente RN Position: [facility] RN Member Role: Primary Care Nurse Name: Tristin Hill RN Position: [facility] RN Member Role: Primary Care Nurse Name: Nisreen Tristan RN Position: [facility] RN Member Role: Primary Care Nurse Name: Kelly Maddox RN Position: [facility] RN Member Role: Primary Care Nurse Care Team Related Persons Name: MARYAN STYLES Name: MARYA ADRIAN Name: MORALES HOWELL Insurance Providers Guarantor name: DIANNE HOWELL Health Plan Information #: 1 Payer: MEDICARE B Payer Identifier: Member Number: [id number] Group Number: Subscriber Identifier: Relationship to Subscriber: self Coverage Type: NA Coverage Verification Date: NA Telecom: NA Address: NA Health Plan Information #: 2 Payer: [employer]USTOMER SERV[employer] Payer Identifier: Member Number: [id number] Group Number: Subscriber Identifier: Relationship to Subscriber: self Coverage Type: MEDICAID Coverage Verification Date: NA Telecom: NA Address:
[2025-01-07 12:39] VITALS: BP 154/110; PULSE 88; RESP 16; TEMP 36.3; O2SAT 97; BMI 21.6
--- NOTE | 2025-01-07 12:40 | ECG_ITS ---
Test Reason : chest pain Blood Pressure : */* mmHG Vent. Rate : 80 BPM Atrial Rate : 80 BPM P-R Int : 198 ms QRS Dur : 72 ms QT Int : 382 ms P-R-T Axes : * -11 150 degrees QTcB Int : 440 ms Normal sinus rhythm Anterolateral infarct (cited on or before 09-Apr-2024) Abnormal ECG When compared with ECG of 04-Jun-2024 14:55, Questionable change in initial forces of Lateral leads Referred By: Shavon Tenorio Electronically Signed By: CONSUELO ANGULO
--- NOTE | 2025-01-07 12:40 | ED.GENADULT ---
HPI - General Adult General Chief complaint: Recheck/Abnormal Lab/Rx Stated complaint: High Blood Pressure Time Seen by Provider: 01/07/25 13:44 Source: patient Mode of arrival: ambulatory Limitations: no limitations History of Present Illness ED Provider: HPI narrative: 49-year-old woman, presenting with dysuria, reports chronic UTIs, history of chronic hypotension, chronic abdominal pain, cyclic vomiting syndrome, history of gastric bypass with revision, history of takotsubo cardiomyopathy presenting with chronic abdominal pain, dysuria nausea, states she is using less narcotic medications now at home, last admission was in November at [facility]. Took her blood pressure medications today, has seen her GI provider was sent to the ER due to elevated blood pressure. Related Data Home Medications ?Medication ?Instructions ?Recorded ?Confirmed albuterol sulfate 2.5 mg/3 mL 1 vial inhalation Q6H PRN 10/07/20 09/18/24 (0.083 %) solution for nebulization Shortness Of Breath Or Wheezing montelukast 10 mg tablet 1 tab PO DAILY 10/07/20 09/18/24 zolpidem 5 mg tablet 5 mg PO BEDTIME PRN Insomnia 09/25/21 09/18/24 albuterol sulfate 90 mcg/actuation 1 inh inhalation Q4H PRN Shortness 11/26/22 09/18/24 aerosol inhaler (Ventolin HFA) Of Breath clonazepam 1 mg tablet 1 mg PO TID@0800,1600,199904/05/24 09/18/24 nortriptyline 75 mg capsule 75 mg PO BEDTIME 04/05/24 09/18/24 quetiapine 100 mg tablet 100 mg PO BEDTIME 04/05/24 09/18/24 estradiol 0.01% (0.1 mg/gram) 1 g vaginal MOWEFR 04/09/24 09/18/24 vaginal cream fluocinolone 0.01 % topical cream 1 appl topical BID PRN Rash 04/09/24 09/18/24 fluoride (sodium) 1.1 % dental 1 appl PO DAILY 04/09/24 09/18/24 cream (Sodium Fluoride 5000 Plus) oxycodone 15 mg tablet 15 mg PO TID@0800,1599,199904/09/24 09/18/24 oxycodone myristate 18 mg capsule 54 mg PO BID@0800,199904/09/24 09/18/24 sprinkle extended release 12hr(DON'T CRUSH) (Xtampza ER) scopolamine base 1 mg over 3 days 1 patch topical Q3D 04/09/24 09/18/24 transdermal patch fluticasone furoate 100 1 inh inhalation DAILY 06/04/24 09/18/24 mcg/actuation blister powder for inhalation (Arnuity Ellipta) quetiapine 50 mg tablet 100 mg PO QAM 01/07/25 Previous Rx's ?Medication ?Instructions ?Recorded fesoterodine 4 mg tablet,extended 4 mg PO DAILY 30 days #30 tabs 03/05/24 release 24 hr (Toviaz) acetaminophen 325 mg tablet 650 mg (2 x 325 mg) PO Q6H PRN 06/07/24 Pain, Mild 1-3,Fever,Headache #30 tabs naloxegol 25 mg tablet (Movantik) 25 mg PO QAM #30 tabs 06/07/24 sucralfate 1 gram tablet 1 g PO BIDAC #30 tabs 06/07/24 amlodipine 2.5 mg tablet 2.5 mg PO DAILY #90 tabs 08/07/24 carvedilol 12.5 mg tablet 6.25 mg (1/2 x 12.5 mg) PO BID #60 08/07/24 tabs tamsulosin 0.4 mg capsule 0.4 mg PO BEDTIME help with 08/20/24 urinary flow #30 caps phenazopyridine 99.5 mg tablet 199 mg (2 x 99.5 mg) PO BID PRN 09/04/24 (Azo Urinary Pain Relief) pain with urination #20 tabs mesalamine 0.375 gram 1.5 g (4 x 0.375 gram) PO DAILY 12/18/24 capsule,extended release 24 hr #360 caps dicyclomine 10 mg capsule 10 mg PO TID #60 caps 01/07/25 nitrofurantoin macrocrystal 100 mg 100 mg PO BID 7 days #14 caps 01/07/25 capsule omeprazole 40 mg capsule,delayed 40 mg PO DAILY #90 caps 01/09/25 release Allergies Allergy/AdvReac Type Severity Reaction Status Date / Time sertraline (From ZOLOFT) Allergy Intermediate prolonged Verified 01/07/25 12:40 QT interval Sulfa (Sulfonamide Allergy Intermediate RASH Verified 01/07/25 12:40 Antibiotics) (SULFA (SULFONAMIDE ANTIBIOTICS)) haloperidol (From Haldol) Allergy Mild unknown Verified 01/07/25 12:40 morphine (MORPHINE) Allergy Mild Rash Verified 01/07/25 12:40 NSAIDS (Non-Steroidal AdvReac Intermediate STOMACH Verified 01/07/25 12:40 Anti-Inflamma (NSAIDS UPSET (NON-STEROIDAL ANTI-INFLAMMA) fentanyl patch Allergy Severe Unresponsiv Uncoded 01/07/25 12:40 e Review of Systems Constitutional: Constitutional: Reports as per HPI [facility] Past Medical History Medical History Low serum cortisol level Spinal stenosis HTN (hypertension) Multinodular goiter Decreased oral intake Takotsubo cardiomyopathy Burn injury Arthritis Low back pain Elevated cholesterol SOB (shortness of breath) Asthma Numbness Mood disorder IBS (irritable bowel syndrome) OAB (overactive bladder) Sleep apnea Hypersomnia Anxiety Surgical History Hx of gastric bypass Hx of total knee replacement Hx of knee surgery Hx of hernia repair History of cystoscopy Hx of laparoscopic gastric banding Hx of hysterectomy History of H/O gastric bypass Hx of endoscopy History of colonoscopy Family History Family History Father Hx of colon cancer, stage IV Mother Family history of high blood pressure Social History Social History Household Members: Children Household Members Other:: My son Housing: Apartment Are you a primary transitions rn care coordinator to a significant other at home: No Do you presently have visiting nurse or other home services: Yes (youngest dtr is accounts receivable analyst) Alcohol intake: never Comment: previously medicated Patient Tobacco Use Status: Never used Tobacco e-Cigarette/Vaping Use: Never Used Second Hand Smoke Exposure: No Substance Use Type: Marijuana service: No Physical Exam ED Exam Exam: General: ?Appears of stated age ? ?PERRLA, EOMI, MMM, ? Neck: Supple, no LAD ? ?CV: RRR, no obvious murmurs appreciated ? ?Resp: ?No wheezing rales rhonchi no stridor moving air well ? Abd: ?Bowel sounds are present, generalized tenderness ? ?MSK: FROM, strength 5/5 all extremities ? Skin: Warm, dry, intact, ? ?Neuro: ?Alert and oriented x3, moving upper and lower extremities symmetrically, no obvious facial asymmetry noted, cranial nerves 2-12 intact Vital Signs: Vital Signs - 24 hr 01/07/25 12:39 01/07/25 13:43 Temperature 97.4 F 98.0 F Pulse Rate 88 84 Respiratory Rate 16 16 Blood Pressure 154/110 H 204/129 H Pulse Oximetry 97 100 Oxygen Delivery Method Room Air Room Air BMI result Body Mass Index 21.6 Course Course Course Narrative: Rapid medical examination performed in triage by Shavon Tenorio PA-C. Patient is a 49 year old assigned female at presenting to the emergency department with elevated blood pressure. Detailed physical exam and review of systems are deferred to the substance abuse clinician. EKG, labs ordered. Patient placed back in the waiting room pending room availability and results. Medications Administered Discontinued Medications Generic Name Dose Route Start Last Admin Trade Name Monica PRN Reason Stop Dose Admin Hydromorphone HCl 1 mg 01/07/25 14:10 01/07/25 14:34 Hydromorphone Hcl 1 Mg/Ml Syringe IVPUSH 01/07/25 14:11 1 mg ONCE ONE Administration Protocol Sodium Chloride 1,000 mls @ 999 mls/hr 01/07/25 14:15 01/07/25 15:47 Ns IV 01/07/25 15:15 Infused .Q1H1M SILVINA Infusion Ceftriaxone Sodium 1 gm/ 50 mls @ 100 mls/hr 01/07/25 14:14 01/07/25 15:10 Sodium Chloride IV 01/07/25 14:43 Infused ONCE ONE Infusion Ondansetron HCl 4 mg 01/07/25 14:10 01/07/25 14:34 Ondansetron Hcl 4 Mg/2 Ml Vial IVPUSH 01/07/25 14:11 4 mg ONCE ONE Administration Ondansetron HCl 4 mg 01/07/25 16:07 01/07/25 16:11 Ondansetron Hcl 4 Mg/2 Ml Vial IVPUSH 01/07/25 16:08 4 mg ONCE ONE Administration Medical Decision Making Medical Decision Making MDM Narrative: 2:24 PM 01/07/2025 (Dr. Anil Louis): Complicated history, I have treated this patient at [facility] where she has to get most of her care, her general surgeon Dr. Arndt is there, she has had frequent ER visits much less frequent now for hypotensive urgencies, raj pain, frequent admissions, IV Dilaudid, overall she is actually doing better and unless narcotics, has had no interest in being on methadone, has frequent UTIs, multiple CTs in the past did not feel imaging today is indicated. We will give her fluids, we will provide pain control though I did discuss with her that with frequent ER visits I will be extremely cautious about IV narcotic administration in the ER in the future. Patient understands. One of these reasons his because she is actually improving and how much narcotic should take it home and if her ER visits increase and we continue dosing her with narcotics in the emergency department specifically becomes Dilaudid we are going to significantly impact her MME Reassuringly troponin unremarkable I have admitted the patient and transferred to [facility] in the past for takotsubo cardiomyopathy and no ECG changes to suspect underlying dysrhythmia or ACS 3:40 PM 01/07/2025 (Dr. Anil Louis): Re-evaluated, blood pressure is better, there was no specific goal for blood pressure management in the ER, this is fluctuating intensity, patient is under lot of stress, urine culture in the past has been susceptible to Macrobid, she is comfortable with discharge Differential Diagnosis Differential Diagnoses: The differential diagnosis associated with the presentation includes (Hypotensive urgency, takotsubo, ACS, dehydration, colitis, SBO) Admission/Observation Consideration of admission/observation: Escalation of care including admission/observation considered Lab Data [facility] Lab Attestation statement: I reviewed the patient's lab results. 01/07/25 13:17 01/07/25 13:17 Labs: Lab Results 01/07/25 Range/Units 13:17 WBC 5.4 (4.8-10.8) X10*3/uL RBC 3.88 L (4.20-5.50) X10*6/uL Hgb 11.2 L (12.0-16.0) g/dl Hct 33.3 L (37.0-47.0) % MCV 85.8 (80.0-98.0) fL MCH 28.9 (27.0-33.0) pg MCHC 33.6 (31.0-35.0) g/dl RDW 14.4 (11.0-16.0) % Plt Count 194 D (160-400) X10*3/uL MPV 10.0 (9.4-12.3) fL Immature Gran % (Auto) 0.2 (0.0-0.4) % Neut % (Auto) 56.8 (45-73) % Lymph % (Auto) 35.3 (20-40) % Wake % (Auto) 6.4 (2-11) % Eos % (Auto) 0.6 (0-4) % Baso % (Auto) 0.7 (0-2) % Lymph # (Auto) 1.9 (1.2-4.9) X10*3/uL Wake # (Auto) 0.4 (0.1-1.2) X10*3/uL Eos # (Auto) 0.0 (0.0-0.4) X10*3/uL Baso # (Auto) 0.0 (0.0-0.2) X10*3/uL Abs Immat Gran (auto) 0.01 (0.00-0.03) X10*3/uL Absolute Neuts (auto) 3.1 (2.0-8.3) x10*3/uL Absolute Nucleated RBC 0.000 (0.0-0.012) X10*3/uL Nucleated RBC % (auto) 0.0 (0.0-0.2) /100WBC Sodium 144 (135-145) mmol/L Potassium 3.5 (3.3-5.1) mmol/L Chloride 111 H (96-108) mmol/L Carbon Dioxide 26 (22-29) mmol/L Anion Gap 11 L (12-20) BUN 7 L (9-16) mg/dL Creatinine 0.77 (0.5-1.4) mg/dL Estim Creat Clear Calc 80.3 Estimated GFR > 60 Random Glucose 90 (60-115) mg/dL Calcium 8.6 (8.4-10.2) mg/dL Total Bilirubin 0.4 (0.0-1.0) mg/dL AST 24 (5-31) U/L ALT 15 (0-31) U/L Alkaline Phosphatase 73 (39-117) U/L Troponin I High Sens < 2.7 (<3.5-17.0) ng/L Total Protein 7.0 (6.5-8.0) g/dL Albumin 4.2 (3.5-5.0) g/dL Urine Color Yellow Urine Appearance Clear Urine pH 7.0 (5.0-9.0) Ur Specific [place] 1.010 (1.005-1.025) Urine Protein Negative (Neg-Trace) mg/dL Urine Glucose (UA) Negative (Negative) mg/dL Urine Ketones Negative (Negative) mg/dL Urine Blood Negative (Negative) Urine Nitrite Positive H (Negative) Ur Leukocyte Esterase Moderate (2+) H (Negative) Urine RBC 0-2 (0-2) /HPF Urine WBC 21-50 H (0-5) /HPF Ur Squamous Epith Cells 0-2 (0-2) /HPF Urine Bacteria 4+ (None Seen) Hyaline Casts 0-2 (0-2) /LPF Independent Interpretation I performed an independent interpretation of an: EKG (80 bpm, otherwise normal ECG without dysrhythmia, AV skinny blocks or ST-T changes to suspect underlying ACS, my independent interpretation) External Record Review External record reviewed: Outpatient record and Outside ED record Tests considered The following testing was considered but not selected: CT abdomen and pelvis Chronic Conditions Patient?s care impacted by: Hypertension Critical Care Time Critical Care Time Critical Care Time: Yes Total Critical Care Time: 32 Attestation: Time is exclusive of separately billable procedures. Time includes: direct patient care, patient reassessment, coordination of patient care, interpretation of data (laboratory data, pulse oximetry, arterial blood gases and chest xrays), review of patient's medical records, medical consultation and documentation of patient care. Procedures excluded from critical care time: central intravenous line placement and electrocardiography. Discharge Plan Discharge Clinical Impression: Chronic UTI (urinary tract infection), Chronic abdominal pain HTN (hypertension) Qualifiers: Hypertension type: primary hypertension Qualified Code(s): I10 - Essential (primary) hypertension Patient Disposition: Home, Self-Care Additional Instructions: Continue antibiotics starting tomorrow, workup today is reassuring, no dehydration no stress to the heart either by blood work or EKG Fluctuating blood pressure something needs to be monitored and addressed over time, and managed by your cupola charger insulation You did receive fluids, pain medications, antiemetics and antibiotics I am glad you are doing better with pain medications, overall I am reassured that you have made significant progress since last time I saw you Prescriptions: New nitrofurantoin macrocrystal 100 mg capsule 100 mg PO BID 7 Days Qty: 14 0RF Rx Instructions: must administer with a meal/food No Action tamsulosin 0.4 mg capsule 0.4 mg PO BEDTIME Qty: 30 3RF mesalamine 0.375 gram capsule,extended release 24hr 1.5 g PO DAILY Qty: 360 0RF omeprazole 40 mg capsule,delayed release(DR/EC) 40 mg PO DAILY Qty: 90 1RF albuterol sulfate 2.5 mg /3 mL (0.083 %) solution for nebulization 1 vial inhalation Q6H PRN (Reason: Shortness Of Breath Or Wheezing) montelukast 10 mg tablet 1 tab PO DAILY Arnuity Ellipta 100 mcg/actuation blister with device 1 inh INHALATION DAILY sucralfate 1 gram Tablet 1 g PO BIDAC Qty: 30 0RF acetaminophen 325 mg Tablet 650 mg PO Q6H PRN (Reason: Pain, Mild 1-3,Fever,Headache) Qty: 30 0RF Movantik 25 mg tablet 25 mg PO QAM Qty: 30 0RF Rx Instructions: must be taken on empty stomach; no food 1 hr after or 2-3 hrs before dose Azo Urinary Pain Relief 99.5 mg tablet 199 mg PO BID PRN (Reason: pain with urination) Qty: 20 1RF Rx Instructions: Must administer with a meal and drink 6-8 oz of water with each dose fluocinolone 0.01 % cream 1 appl topical BID PRN (Reason: Rash) oxycodone 15 mg tablet 15 mg PO TID@0800,1600,2000 estradiol 0.01 % (0.1 mg/gram) cream 1 g vaginal MOWEFR scopolamine base 1 mg over 3 days patch 3 day 1 patch topical Q3D Patient Comments: 06/04/24: took off today fluoride (sodium) [Sodium Fluoride 5000 Plus] 1.1 % cream 1 appl PO DAILY Xtampza ER 18 mg cap,sprinkl,ER12hr(DONT CRUSH) 54 mg PO BID@0800,2000 zolpidem 5 mg tablet 5 mg PO BEDTIME PRN (Reason: Insomnia) fesoterodine [Toviaz] 4 mg tablet extended release 24 hr 4 mg PO DAILY 30 Days Qty: 30 4RF quetiapine 100 mg tablet 100 mg PO BEDTIME nortriptyline 75 mg capsule 75 mg PO BEDTIME clonazepam 1 mg tablet 1 mg PO TID@0800,1600,1999 quetiapine 50 mg tablet 100 mg PO QAM albuterol sulfate [Ventolin HFA] 90 mcg/actuation HFA aerosol inhaler 1 inh inhalation Q4H PRN (Reason: Shortness Of Breath) dicyclomine 10 mg capsule 10 mg PO TID Qty: 60 2RF carvedilol 12.5 mg tablet 6.25 mg PO BID Qty: 60 11RF amlodipine 2.5 mg tablet 2.5 mg PO DAILY Qty: 90 4RF Referrals: Romeo Jacobson MD [Primary Care Provider, Medical] - 1 week Clinical Impression: HTN (hypertension) Interventions: ED Discharge Assessment Last Done: 01/07/25 16:19 Discharge Date/Time: 01/07/25 16:19 Print Language: [place]
[2025-01-07 13:27] LABS: MANUAL DIFF FLAG NO
[2025-01-07 13:29] LABS: Hematocrit 33.3 % (37.0-47.0); Hemoglobin 11.2 g/dl (12.0-16.0); Imm Gran Abs Auto 0.01 X10*3/uL (0.00-0.03); Imm Gran Pct Auto 0.2 % (0.0-0.4); Lymphocytes Absolute Auto 1.9 X10*3/uL (1.2-4.9); Mean Corpuscular HGB Conc 33.6 g/dl (31.0-35.0); Mean Corpuscular Hemoglobin 28.9 pg (27.0-33.0); Mean Corpuscular Volume 85.8 fL (80.0-98.0); NRBC Abs Auto 0.000 X10*3/uL (0.0-0.012); NRBC Pct Auto 0.0 /100WBC (0.0-0.2); Platelet Count 194 X10*3/uL (160-400); Red Blood Count 3.88 X10*6/uL (4.20-5.50); White Blood Count 5.4 X10*3/uL (4.8-10.8)
[2025-01-07 13:30] LABS: Appearance Urine Clear; Glucose Urine UA Negative (Negative); PH 7.0 (5.0-9.0); Specific Gravity - Urine 1.010 (1.005-1.025); UMIC TRIGGER UACC YES
[2025-01-07 13:33] LABS: UACC Culture Trigger YES
[2025-01-07 13:43] VITALS: BP 204/129; PULSE 84; RESP 16; TEMP 36.7; O2SAT 100
[2025-01-07 13:44] LABS: Alanine Aminotransferase 15 U/L (0-31); Albumin Level 4.2 g/dL (3.5-5.0); Alkaline Phosphatase 73 U/L (39-117); Anion Gap 11 (12-20); Aspartate Amino Transferase 24 U/L (5-31); Blood Urea Nitrogen 7 mg/dL (9-16); Calcium 8.6 mg/dL (8.4-10.2); Carbon Dioxide 26 mmol/L (22-29); Chloride 111 mmol/L (96-108); Creatinine Clr Calc Pharmacy 80.3; Estimated Glomerular Filt Rate > 60; Potassium 3.5 mmol/L (3.3-5.1); Sodium 144 mmol/L (135-145); Total Protein 7.0 g/dL (6.5-8.0)
[2025-01-07 13:52] LABS: Troponin-I High Sensitivity < 2.7 ng/L (<3.5-17.0)
--- NOTE | 2025-01-07 15:06 | MHC.EDTECH ---
pt assisted on bed amaya for urine output
--- NOTE | 2025-01-07 15:06 | PC.NURSE ---
pt is alert and oriented, skin appropriate for ethnicity, respirations even and unlabored, ls clear, pt reports lower abd pain/lower back and urinary frequency and not emptying the bladder completely and foul odor to the urine, bowel sounds in all 4 quadrents and abd soft but tender, bp really high pt reports that she took her bp meds today, ns on the monitor
[2025-01-07 15:47] VITALS: BP 159/104; PULSE 75; RESP 16; TEMP 36.6; O2SAT 100
[2025-01-07 16:19] VITALS: BP 159/104; PULSE 75; RESP 16; TEMP 36.6; O2SAT 100
--- OUTSIDE RECORDS SUMMARY | 2025-01-07 17:27 | XMS_ITS | Data Portability ---
Author Organization [place] - [facility] Address [address] [place] [address] Care Team Providers Care Funeral Home Makeup Artist Name Role Phone [facility] Primary Care Provider Assessment Encounter Date Assessment Date Assessment LastModified by Organization Details LastModified Time 08/22/2021 08/22/2021 Proper Personal Protective Equipment (PPE), including gloves, eye protection and masks were donned and doffed appropriately and all equipment cleaned using approved technique with germicidal disposable wipes prior to and after care of this patient according to [facility]'s infection prevention protocols. Overview/History: 45 yo female [...] cough or fevers begin she will seek [facility] medical attn Not available 08/22/2021 17:51:56 10/26/2021 10/26/2021 Overview/History : 46 YO F new to provider and known to She is being seen today for ? asthma exacerbation She is c/o of sob and chest pain today mostly pleuritic she thinks however it is progressive and she eventually describes it as crushing and substernal, 10/10 pain. 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 I did ask [...] pt handed off -Expect called in to [facility] She cont to look worse and more [...] 2021 ceci Spr - Home, [address] [place], [address], 18:46:25 Referral None recorded. Procedures None recorded. Surgeries None recorded. Imaging XR, chest, 2 view - call [phone] // rule out rib fx [place]. lower left anterior 2021 [place] [employer] [address] [place], [address], 12:52:30 Medication Orders Lidoderm 5 % topical patch 2021 [place] [id number], [address], [place], [id number], 15:56:31 Patient TargetsNo targets recorded. Patient Instructions Encounter Date Encounter Id Patient Instructions Last Modified By Organization Details Last Modified Time 08/22/2021 [id number] Back Pain - Discharge Instructions Basic Information: [...] this pain, you can find demonstrations on [employer] Weight loss will help to relieve stress [...] in your condition between 8am-10pm, [facility] at [phone] to help navigate your care. [email or web address] Not available 08/22/2021 15:47:10 Reason for Referral None Reported. Results Created Date Observation Date Name Description Value Unit Range Abnormal Flag Note LastModifiedBy Organization Detail LastModifiedTime 10/27/19 22 10/26/2021 rapid SARS CoV 2 Ag, QL IA, respi rator y speci men Covid-19 (ref: neg) negati ve Not Available Spr - Home [address] [place], [address], 10/26/2021 18:46:03 10/27/19 22 10/26/2021 rapid SARS CoV 2 Ag, QL IA, respi rator y speci men Control Visual ized/V alid Not Available Spr - Home [address] [place], [address], 10/26/2021 18:46:03 10/27/19 22 10/26/2021 rapid SARS CoV 2 Ag, QL IA, respi rator y speci men Location [facility], [facility], [address] [place] [address], [id number] Not Available [facility] - Home [address] [place], [address], 10/26/2021 18:46:03 08/25/19 22 08/24/2021 XR, chest [...] KAMRON PALMA M.D. 12:39: 33 PM EDT. [email or web address] RE2 [facility] [place] [address] [facility] [address], [place], [address], 08/24/2021 16:45:15 10/27/19 elect rocar diogr am [...] EDT. JUAN RAMON Denney [address], [place], [address], [place] [facility] 08/24/2021 16:45:15 Procedures Surgical History Date Name Laterality Status Provider Name and Address Organization Details Recorded Time ECG Interpretation - DH completed JUAN RAMON Najera [address], [place], [address], [place] [facility] 10/26/2021 18:37:54 section completed JUAN RAMON Moran [address], [place], [address], [place] [facility] 10/26/2021 17:22:43 operative procedure on knee completed JUAN RAMON Najera [address], [place], [address], [place] [facility] 10/26/2021 17:22:50 Imaging Results None recorded. Procedure Notes None recorded. Medical Equipment None Reported. Allergies Allergen ID Allergen Name Allergen Category Reaction Reaction Severity Criticality Documentation Date Start Date Code Code System Note Provider Name and Address Organization Details Recorded Time 555265 sulfadiaz ine medicatio n Not available Not available Not available 10/26/2021 13909 RxNorm Fahad iraida Terrazas, [place] [address], [place], [address], [place] [facility] 2 16:59:38 617809 sertralin e medicatio n Not available Not available Not available 10/26/2021 43261 RxNorm Fahadweston Terrazas, PA [address], [place], [address], [place] [facility] 2 16:59:46 451819 Substance with sulfonami de structure and antibacte rial mechanism of action (substanc e) medicatio n Not available Not available Not available 10/26/2021 38945 8003 SNOMED Fahadweston Terrazas, PA [address], [place], [address], [place] [facility] 2 16:59:53 086004 fentanyl medicatio n Not available Not available Not available 10/26/2021 4337 RxNorm Fahad iraida Terrazas, PA [address], [place], [address], [place] [facility] 2 17:00:04 455392 Non-stero idal anti-infl ammatory agent (substanc e) medicatio n Not available Not available Not available 10/26/2021 00746 5008 SNOMED Fahadweston Terrazas PA [address], [place], [address], [place] [facility] 2 17:00:15 Medications Name Sig Start Date Stop Date Status Note LastModified by Organization Details LastModified Time quetiapine 25 mg tablet TK 1 TO 3 TS PO 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 Functional [...] Diagnosis SNOMED-CT Code Diagnosis ICD10 Code Diagnosis IMO Codes Diagnosis Note [id number] JUAN RAMON Narvaez [facility] - HOME [address] [facility] [place] [address] 08/22/2021 15:45:20 08/26/2021 13:50:16 Rib pain 927128149 R07.81 [id number] JUAN RAMON Blanco [facility] - HOME [address] [facility] [place] [address] 10/26/2021 16:56:17 10/27/2021 09:46:32 Chest pain 32301358 R07.9 Dyspnea 024364419 R06.00 Sinus tachycardia 108021 01 R00.0 Health Concerns Section Related Observation LastModified by Organization Detai ls LastModified Time None Recorded Concern Status LastModified by Organization Details LastModified Time None Recorded Advance Directives Directive None Recorded Payers Insurance Date Sequence Insurance Name Policy Number Policy Leo Covered Member ID Leo Member ID Guarantor Name 08/22/2021 1 [facility]MEDICA[facility] O) Alainainea Rc [id number] Eboni [place] 10/21/2020 1 [facility]MEDICAID HMO) Selender [place] [id number] Eboni Rc 10/21/2020 1 *SELF PAY* Selinea [place] [id number] Eboni [place] 10/27/2021 1 MEDIC[place] B-[place]: [employer] Eboni A [place] [id number] Eboni Rc 10/26/2021 2 MED[place]: [facility] Eboni [place] [id number] Eboni [place] Notes Date Note Type Note Provider Name and Address Organization Details Recorded Time 2 text/html General HPI Template - DHReported by Patient 45 yo female new to providerPT IS [...] trauma// JUAN RAMON Narvaez [address], [place], [address], [place] [facility] 08/22/2021 17:52:04 2 text/html 46 YO F [facility] to provider [facility] ? asthma exacerbationShe is c/o of sob and chest pain today mostly pleuritic she thinks however it is progressive and she eventually describes it as crushing and substernal, 10/10 pain. 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 I did ask [...] yesterday. JUAN RAMON Najera [address], [place], [address], [place] [facility] 10/26/2021 18:50:29 OBGyn Episode No OBEpisode recorded.
== END 2025-01-07 16:19 | disposition home or self-care (01) ==
PROVIDERS: Physician Assistant Medical; Emergency Provider Emergency Medicine; PCP Pediatrics
DX: N39.0 Urinary tract infection, site not specified (principal); R10.9 Unspecified abdominal pain; G89.29 Other chronic pain; I10 Essential (primary) hypertension; R10.13 Epigastric pain; K52.9 Noninfective gastroenteritis and colitis, unspecified
CPT/HCPCS: 36415; 80053; 81001; 84484; 85025; 87086; 87088; 87186; 93005; 96365; 96375; 96376; 99212; 99285; J0696; J1171; J2405

== ENCOUNTER → 2025-01-07 12:40 | Outpatient (BNV) | payer MEDICARE, MEDICAID, SELFPAY | PROVIDERS: Emergency Provider Emergency Medicine; PCP Pediatrics; Visit Provider Internal Medicine | DX: I25.2 Old myocardial infarction (principal) | CPT/HCPCS: 93010 ==

== ENCOUNTER 2025-01-21 12:04 | Outpatient (AMB) | payer MEDICARE, MEDICAID, SELFPAY ==
--- OUTSIDE RECORDS SUMMARY | 2025-01-18 23:59 | XMS_ITS | Continuity of Care Document ---
Author Organization [facility] Address [address] [place] [address]- Care Team Providers Care Business Support Associate Name Role Phone Indira SPENCER, Romeo Sumner Primary Care Physician [facility] Date(s): 12/19/24 - 01/18/[address] [address] Encounter Type: Triage Allergies, Adverse Reactions, Alerts Substance Criticality Severity Reaction Reaction Severity Status sulfADIAZINE rash Active sertraline 1 QT wave change Ac tive sulfa drugs rash Active NSAIDs She can't take NSAIDs secondary to gastric bypass Active fentanyl topical passed out Ac tive Haldol Agitation Active Bactrim rash Active 1 changed my QT interval 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 any albuterol inhaler covered [...] a schedule II opioid drug. Start Date: 4/29/22 Status: Ordered Medication Dispense Status: Completed Total [...] Refills, Maintenance, 05/04/24 12:32:00 PM EST, [place], [facility] #[id number], Partial fill upon patient request if the [...] 0 Refills, Maintenance, 08/03/24 12:31:00 PM EDT, [place], [facility] #[id number], Partial fill upon patient request if the [...] Total Allowed Fills: 1 Fills Dispensed: 0 carvedilol 6.25 mg oral tablet 6.25 mg, 1, tablet, By Mouth, 2 times a day, # 180 tablet, Refills 0, Tot. Refills 0, Maintenance, 01/15/25 4:23:00 PM EST, Route to Pharmacy Electronically, [facility][id number], Partial fill upon patient request if the prescription is for a schedule II opioid drug., 165, cm, 01/15/25 15:46:0 0 EST, Height, 70.8, kg, 11/13/24 19:12:00 EDT, Dry Weight Start Date: 01/15/25 Status: Ordered Medication Dispense Status: Completed Quantity: 180.0 Unit: tablet Total Allowed Fills: 1 Fills Dispensed: 0 cetirizine 10 mg oral tablet 1 tablet = 10 mg, By Mouth, Daily, PRN allergies, # 90 tablet, 0 Refills, Maintenance, 08/03/24 12:31:00 PM EDT, Tablet, [facility] #[id number], Partial fill upon patient request if the [...] mg, By Mouth, 3 times a day, [place] Kelli checked., # 90 tablet, 0 Refills, Maintenance, 01/16/25 12:21:00 PM EST, Tablet, [facility] #[id number], Partial fill upon patient request if the prescription is for a schedule II opioid drug. OK to fill now (early) - pt spilled tea into her bottle and pills were ruined, 165, cm, 01/15/25 15:46:00 EST, Height, 70.8, kg, 11/13/24 19:12:00 EDT, Dry Weight Start Date: 01/16/25 Status: Ordered Medication Dispense Status: Completed Quantity: [...] Refills, Soft Stop, 09/13/24 1:44:00 PM EDT, Tablet,[facility][id number], Partial fill upon patient request if the [...] 10:34:00 AM EST, Route to Pharmacy Electronically, [facility] #[id number], Partial fill upon patient request if the [...] needed for moderate to severe pain. FALGUNI kirby. Last visit: 11-15. Nexf fill: 12-12-2024., # 84 tablet, 0 Refills, Maintenance, 01/04/25 2:49:00 PM EDT, Tablet, [facility] #75694, Partial fill upon patient request if the [...] Refills, Maintenance, 08/03/24 12:29:00 PM EDT, Tablet, [facility][id number], Partial fill upon patient request if the [...] 10:33:00 AM EDT, Route to Pharmacy Electronically, [facility] #[id number], 166, cm, 09/25/2509:14:00 EDT, Height, 70.8, kg, [...] food; pt on CSA; May fill on/after 01/23/2025 mayfill less; MassPat checked, # 180 capsule, 0 Refills, Maintenance, 01/16/25 5:12:00 PM EST, ER Capsule, [facility] #75137, Partial fill upon patient request if the prescription is for a schedule II opioid drug., 165, cm, 01/15/25 15:46:00 EST, Height, 70.8, kg, 11/13/24 19:12:00 EDT, Dry Weight Start Date: 01/16/25 Status: Ordered Medication Dispense Status: Completed Quantity: [...] Confirmed Active Hypertension 1 Confirmed 1997 Active Adrenal insufficiency Confirmed Active Hypokalemia Confirmed [...] Team Personnel Name: Artemio Contreras RN Position: [facility] RN Member Role: Primary Care Nurse Name: Romeo Jacobson MD Position: [facility] Physician - Primary Care Member Role: PCP Address: [address] [place] [address]- Telecom: Name: Moses RNSiria Position: S RN Member Role: Primary Care Nurse Name: Tristin Hunt RN Position: S RN Member Role: Primary Care Nurse Name: Edenilson Puckett MD Position: [facility] LIEN SEARCHER MD Member Role: [employer] LIEN SEARCHER Physician Name: Jovana Park RN Position: [facility] SN RN Member Role: Primary Care Nurse Name: Ana Maria Grady RN Position: [facility] RN Supv Member Role: Primary Care Nurse Name: Fabiana Williamson RN Position: [facility] RN Member Role: Primary Care Nurse Name: Maraí Silverman RN Position: [facility] RN Member Role: Primary Care Nurse Name: Lina Delgado RN Position: [facility] RN Member Role: Primary Care Nurse Name: Chidi Clark DO Position: [facility] Renal MD Member Role: Lifetime Consulting Physician Address: [address] [place], [place] [address] [place] [address]- Telecom: Name: Mireya Torres RN Position: [facility] RN Member Role: Primary Care Nurse Name: Starr Harper RN Position: [facility] AMB Nurse Member Role: Primary Care Nurse Name: Tiana Vicenet RN Position: [facility] RN Member Role: Primary Care Nurse Name: Tristin Hill RN Position: [facility] RN Member Role: Primary Care Nurse Name: Nisreen Tristan RN Position: [facility] RN Member Role: Primary Care Nurse Name: Kelly Maddox RN Position: [facility] RN Member Role: Primary Care Nurse Care Team Related Persons Name: MARYAN STYLES Name: MARYA ADRIAN Name: MORALES HOWELL Insurance Providers Guarantor name: DIANNE HOWELL Health Plan Information #: 1 Payer: MEDICARE B Payer Identifier: NA Member Number: [id number] Group Number: [id number] Subscriber Identifier: KRAIG Relationship to Subscriber: self Coverage Type: NA Coverage Verification Date: KRAIG Telecom: Address: [facility] Plan Information #: 2 Payer: [facility] [employer] Payer Identifier: KARIG Member Number: [id number] Group Number: [id number] Subscriber Identifier: KRAIG Relationship to Subscriber: self Coverage Type: MEDICAID Coverage Verification Date: KRAIG Telecom: KRAIG Address:
--- OUTSIDE RECORDS SUMMARY | 2025-01-18 23:59 | XMS_ITS | Continuity of Care Document ---
Author Organization [facility] Address [address] [place] [address]- Care Team Providers Care Egg Candler Name Role Phone Romeo Jacobson MD Primary Care Physician [facility]counter [facility] Date(s): 12/19/24 - 01/18/[address] [address] Encounter Type: Triage Allergies, Adverse Reactions, Alerts Substance Criticality Severity Reaction Reaction Severity Status sulfADIAZINE rash Active sertraline 1 QT wave change Ac tive fentanyl topical passed out Ac tive sulfa drugs rash Active Haldol Agitation Active Bactrim rash Active NSAIDs She can't take NSAIDs secondary to gastric bypass Active 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 any albuterol inhaler covered [...] Refills, Maintenance, 05/04/24 12:32:00 PM EST, [place], [facility][id number], Partial fill upon patient request if the [...] 0 Refills, Maintenance, 08/03/24 12:31:00 PM EDT, [place], [facility][id number], Partial fill upon patient request if the [...] 4:23:00 PM EST, Route to Pharmacy Electronically, [facility] #[id number], Partial fill upon patient request if the [...] Refills, Maintenance, 08/03/24 12:31:00 PM EDT, Tablet, [facility] #14121, Partial fill upon patient request if the [...] Refills, Maintenance, 01/16/25 12:21:00 PM EST, Tablet, [facility]08712, Partial fill upon patient request if the [...] Refills, Soft Stop, 09/13/24 1:44:00 PM EDT, Tablet,[facility][id number], Partial fill upon patient request if the [...] 10:34:00 AM EST, Route to Pharmacy Electronically, [facility] #[id number], Partial fill upon patient request if the [...] Refills, Maintenance, 01/04/25 2:49:00 PM EDT, Tablet, [facility] #78754, Partial fill upon patient request if the [...] Refills, Maintenance, 08/03/24 12:29:00 PM EDT, Tablet, [facility] #[id number], Partial fill upon patient request if the [...] 10:33:00 AM EDT, Route to Pharmacy Electronically, [facility] #[id number], 166, cm, 09/25/2509:14:00 EDT, Height, 70.8, kg, [...] Maintenance, 01/16/25 5:12:00 PM EST, ER Capsule, [facility] #29051, Partial fill upon patient request if the [...] Team Personnel Name: Artemio Contreras RN Position: [facility] RN Member Role: Primary Care Nurse Name: Romeo Jacobson MD Position: [facility] Physician - Primary Care Member Role: PCP Address: [address] [place] [address] Telecom: Name: Moses RNSiria Position: S RN Member Role: Primary Care Nurse Name: Tristin Hunt RN Position: S RN Member Role: Primary Care Nurse Name: Edenilson Puckett MD Position: [facility] PUMP SERVICER HELPER MD Member Role: Lifetime PUMP SERVICER HELPER Physician Name: Jovana Park RN Position: [facility] SN RN Member Role: Primary Care Nurse Name: Ana Maria Grady RN Position: [facility] RN Supv Member Role: Primary Care Nurse Name: Fabiana Williamson RN Position: [facility] RN Member Role: Primary Care Nurse Name: María Silverman RN Position: [facility] RN Member Role: Primary Care Nurse Name: Lina Delgado RN Position: [facility] RN Member Role: Primary Care Nurse Name: Chidi Clark DO Position: [facility] Renal MD Member Role: Lifetime Consulting Physician Address: [address] [place], [place] [address] [place] [address]- Telecom: Name: Mireya Torres RN Position: [facility] RN Member Role: Primary Care Nurse Name: Starr Harper RN Position: [facility] AMB Nurse Member Role: Primary Care Nurse Name: Tiana Vicente RN Position: [facility] RN Member Role: Primary Care Nurse Name: Tristin Hill RN Position: [facility] RN Member Role: Primary Care Nurse Name: Nisreen Tristan RN Position: [facility] RN Member Role: Primary Care Nurse Name: Kelly Maddox RN Position: [facility] RN Member Role: Primary Care Nurse Care Team Related Persons Name: MARYAN STYLES Name: MARYA ADRIAN Name: MORALES HOWELL Insurance Providers Guarantor name: DIANNE HOWELL Health Plan Information #: 1 Payer: MEDICARE B Payer Identifier: NA Member Number: [id number] Group Number: [id number] Subscriber Identifier: KRAIG Relationship to Subscriber: self Coverage Type: NA Coverage Verification Date: KRAIG Telecom: Address: [facility] Plan Information #: 2 Payer: [facility] [employer]OMER [employer] Payer Identifier: KRAIG Member Number: [id number] Group Number: [id number] Subscriber Identifier: KRAIG Relationship to Subscriber: self Coverage Type: MEDICAID Coverage Verification Date: KRAIG Telecom: KRAIG Address:
--- OUTSIDE RECORDS SUMMARY | 2025-01-19 23:59 | XMS_ITS | Continuity of Care Document ---
Author Organization [facility] Address [address] [place] [address]- Care Team Providers Care Chief Deputy Clerk/Bailiff Name Role Phone nIdira SPENCER, Romeo Sumner Primary Care Physician Encounter [facility] Date(s): 12/20/24 - 01/19/[address] [address] Encounter Type: Triage Allergies, Adverse Reactions, Alerts Substance Criticality Severity Reaction Reaction Severity Status sulfADIAZINE rash Active sertraline 1 QT wave change Ac tive sulfa drugs rash Active NSAIDs She can't take NSAIDs secondary to gastric bypass Active fentanyl topical passed out Ac tive Haldol Agitation Active Bactrim rash Active 1 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 any albuterol inhaler covered [...] Refills, Maintenance, 05/04/24 12:32:00 PM EST, [place], [facility] #[id number], Partial fill upon patient request if the [...] 0 Refills, Maintenance, 08/03/24 12:31:00 PM EDT, [place], [facility] #[id number], Partial fill upon patient request if the [...] 4:23:00 PM EST, Route to Pharmacy Electronically, [facility] #[id number], Partial fill upon patient request if the [...] Refills, Maintenance, 08/03/24 12:31:00 PM EDT, Tablet, [facility] #[id number], Partial fill upon patient request if the [...] By Mouth, 3 times a day, [place] Pat checked., # 90 tablet, 0 Refills, Maintenance, 01/16/25 12:21:00 PM EST, Tablet, [facility] #[id number], Partial fill upon patient request if the [...] Refills, Soft Stop, 09/13/24 1:44:00 PM EDT, Tablet,[facility] #[id number], Partial fill upon patient request if the [...] 10:34:00 AM EST, Route to Pharmacy Electronically, [facility] #[id number], Partial fill upon patient request if the [...] Refills, Maintenance, 01/04/25 2:49:00 PM EDT, Tablet, [facility] #[id number], Partial fill upon patient request if the [...] Refills, Maintenance, 08/03/24 12:29:00 PM EDT, Tablet, [facility] #[id number], Partial fill upon patient request if the [...] 10:33:00 AM EDT, Route to Pharmacy Electronically, [facility] #[id number], 166, cm, 09/25/2509:14:00 EDT, Height, 70.8, kg, [...] Maintenance, 01/16/25 5:12:00 PM EST, ER Capsule, [facility] #[id number], Partial fill upon patient request if the [...] Team Personnel Name: Artemio Contreras RN Position: [facility] RN Member Role: Primary Care Nurse Name: Romeo Jacobson MD Position: [facility] Physician - Primary Care Member Role: PCP Address: [address] [place] [address]- Telecom: Name: Moses RN, Siria Robleroa Position: S RN Member Role: Primary Care Nurse Name: Tristin Hunt RN Position: S RN Member Role: Primary Care Nurse Name: Edenilson Puckett MD Position: [facility] CLIENT TECHNICAL PROFESSIONAL MD Member Role: [employer] CLIENT TECHNICAL PROFESSIONAL Physician Name: Jovana Park RN Position: [facility] SN RN Member Role: Primary Care Nurse Name: Ana Maria Grady RN Position: [facility] RN Supv Member Role: Primary Care Nurse Name: Fabiana Williamson RN Position: [facility] RN Member Role: Primary Care Nurse Name: María Silverman RN Position: [facility] RN Member Role: Primary Care Nurse Name: Lina Delgado RN Position: [facility] RN Member Role: Primary Care Nurse Name: Chidi Clark DO Position: [facility] Renal MD Member Role: [employer] Consulting Physician Address: [address] [place], [place] [address] [place] [address]- Telecom: Name: Mireya Torres RN Position: [facility] RN Member Role: Primary Care Nurse Name: Starr Harper RN Position: [facility] AMB Nurse Member Role: Primary Care Nurse Name: Tiana Vicente RN Position: [facility] RN Member Role: Primary Care Nurse Name: Tristin Hill RN Position: [facility] RN Member Role: Primary Care Nurse Name: Nisreen Tristan RN Position: [facility] RN Member Role: Primary Care Nurse Name: Kelly Maddox RN Position: S RN Member Role: Primary Care Nurse Care Team Related Persons Name: MARYAN STYLES Name: MARYA ADRIAN Name: MORALES HOWELL Insurance Providers Guarantor name: DIANNE HOWELL Health Plan Information #: 1 Payer: MEDICARE B Payer Identifier: NA Member Number: [id number] Group Number: [id number] Subscriber Identifier: KRAIG Relationship to Subscriber: self Coverage Type: NA Coverage Verification Date: KRAIG Telecom: Address: M[facility] Plan Information #: 2 Payer: [employer] Payer Identifier: KRAIG Member Number: [id number] Group Number: [id number] Subscriber Identifier: KRAIG Relationship to Subscriber: self Coverage Type: MEDICAID Coverage Verification Date: KRAIG Telecom: Address:
--- OUTSIDE RECORDS SUMMARY | 2025-01-19 23:59 | XMS_ITS | Continuity of Care Document ---
Author Organization [facility] Address [address] [place] [address]- Care Team Providers Care Ground Systems Engineer Name Role Phone Indira SPENCER, Romeo Sumner Primary Care Physician Encounter [facility] Date(s): 12/20/24 - 01/19/[address] [address] Encounter Type: Triage Allergies, Adverse Reactions, Alerts Substance Criticality Severity Reaction Reaction Severity Status sulfADIAZINE rash Active sertraline 1 QT wave change Ac tive fentanyl topical passed out Ac tive sulfa drugs rash Active Haldol Agitation Active Bactrim rash Active NSAIDs She can't take NSAIDs secondary to gastric bypass Active 1 changed 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 any albuterol inhaler covered [...] Refills, Maintenance, 05/04/24 12:32:00 PM EST, [place], [facility] #[id number], Partial fill upon patient request if the [...] 0 Refills, Maintenance, 08/03/24 12:31:00 PM EDT, [place], [facility] #[id number], Partial fill upon patient request if the [...] 4:23:00 PM EST, Route to Pharmacy Electronically, [facility] #[id number], Partial fill upon patient request if the [...] Refills, Maintenance, 08/03/24 12:31:00 PM EDT, Tablet, [facility] #[id number], Partial fill upon patient request if the [...] Refills, Maintenance, 01/16/25 12:21:00 PM EST, Tablet, [facility] #[id number], Partial fill upon patient request if the [...] Refills, Soft Stop, 09/13/24 1:44:00 PM EDT, Tablet,[facility] #[id number], Partial fill upon patient request if the [...] 10:34:00 AM EST, Route to Pharmacy Electronically, [facility] #[id number], Partial fill upon patient request if the [...] Refills, Maintenance, 01/04/25 2:49:00 PM EDT, Tablet, [facility] #[id number], Partial fill upon patient request if the [...] Refills, Maintenance, 08/03/24 12:29:00 PM EDT, Tablet, [facility] #[id number], Partial fill upon patient request if the [...] 10:33:00 AM EDT, Route to Pharmacy Electronically, [facility] #[id number], 166, cm, 09/25/2509:14:00 EDT, Height, 70.8, kg, [...] Maintenance, 01/16/25 5:12:00 PM EST, ER Capsule, [facility] #[id number], Partial fill upon patient request if the [...] Team Personnel Name: Artemio Contreras RN Position: [facility] RN Member Role: Primary Care Nurse Name: Romeo Jacobson MD Position: [facility] Physician - Primary Care Member Role: PCP Address: [address] [place] [address]- Telecom: Name: Moses RN, Siria Robleroa Position: S RN Member Role: Primary Care Nurse Name: Tristin Hunt RN Position: S RN Member Role: Primary Care Nurse Name: Edenilson Puckett MD Position: [facility] INTERNET MEDIA PLANNER MD Member Role: [employer] INTERNET MEDIA PLANNER Physician Name: Jovana Park RN Position: [facility] SN RN Member Role: Primary Care Nurse Name: Ana Maria Grady RN Position: [facility] RN Supv Member Role: Primary Care Nurse Name: Fabiana Williamson RN Position: [facility] RN Member Role: Primary Care Nurse Name: María Silverman RN Position: [facility] RN Member Role: Primary Care Nurse Name: Lina Delgado RN Position: [facility] RN Member Role: Primary Care Nurse Name: Chidi Clark DO Position: [facility] Renal MD Member Role: Lif[employer] Consulting Physician Address: [address] [place], [place] [address] [place] [address]- Telecom: Name: Mireya Torres RN Position: [facility] RN Member Role: Primary Care Nurse Name: Starr Harper RN Position: [facility] AMB Nurse Member Role: Primary Care Nurse Name: Tiana Vicente RN Position: [facility] RN Member Role: Primary Care Nurse Name: Tristin Hill RN Position: [facility] RN Member Role: Primary Care Nurse Name: Nisreen Tristan RN Position: [facility] RN Member Role: Primary Care Nurse Name: Kelly Maddox RN Position: S RN Member Role: Primary Care Nurse Care Team Related Persons Name: MARYAN STYLES Name: MARYA ADRIAN Name: MORALES HOWELL Insurance Providers Guarantor name: DIANNE HOWELL Health Plan Information #: 1 Payer: MEDICARE B Payer Identifier: NA Member Number: [id number] Group Number: [id number] Subscriber Identifier: KRAIG Relationship to Subscriber: self Coverage Type: NA Coverage Verification Date: KRAIG Telecom: Address: [facility] Plan Information #: 2 Payer: [employer] SERV[employer] Payer Identifier: KRAIG Member Number: [id number] Group Number: KRAIG Subscriber Identifier: KRAIG Relationship to Subscriber: self Coverage Type: MEDICAID Coverage Verification Date: KRAIG Telecom: Address:
--- NOTE | 2025-01-21 12:20 | MHC.OFFVIS ---
Vital Signs 01/21/25 12:30 Height 5 ft 5 in Weight 128 lb BMI 21.3 BP 145/90 H Blood Pressure Location Lt brachial Position Sitting Pulse 82 Intake Visit Reasons: 2 week follow up Intake Note: Patient follow up for Colitis and lab/US results. Patient cc: N/V, dysphagia, between diarrhea and constipation, acid reflux, and abdominal pain. Sexologist Required: No Accompanied by: Self / Same As Patient Allergies sertraline (From ZOLOFT) Allergy (Intermediate, Verified 01/21/25 12:20) prolonged QT interval Sulfa (Sulfonamide Antibiotics) (SULFA (SULFONAMIDE ANTIBIOTICS)) Allergy (Intermediate, Verified 01/21/25 12:20) RASH haloperidol (From Haldol) Allergy (Mild, Verified 01/21/25 12:20) unknown morphine (MORPHINE) Allergy (Mild, Verified 01/21/25 12:20) Rash NSAIDS (Non-Steroidal Anti-Inflamma (NSAIDS (NON-STEROIDAL ANTI-INFLAMMA) Adverse Reaction (Intermediate, Verified 01/21/25 12:20) STOMACH UPSET fentanyl patch Allergy (Severe, Uncoded 01/07/25 12:40) Unresponsive HPI HPI 2 week follow up: Details: 49-year-old female with hx of multiple bariatric surgeries including a slipped lap band, gastric sleeve and gastric bypass, adrenal insufficiency on hydrocortisone, hiatal hernia, hypertension managed by Dr. Purdy on carvedilol, ?new diagnosis Essex's (per pt but not seen in endocrine note), nonischemic cardiomyopathy with EF of 50%, asthma unspecified, chronic UTIs versus interstitial cystitis, chronic joint pain who I am seeing for f/u RECAP: she has 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 sleep is poor, 4 hrs off and on she is on tramadol, having issues with constipation. once q4 days EGD 03/2018- gastritis also prior hx of kenalog trigger injection, hard to say if helped. she was given linaclotide to help with constipation GES---normal she was having ongoing issues with pain and was optimized on acid suppression with h2, PPI and carafate, was trying to get her movantik she represented 01/2019 to office with c/o worsening epigastric pain, nausea, and poor appetite with weight loss. using linaclotide helping her constipation, on fentanyl patch--goes every few days I offered her admission but she refused but she was dizzy so sent to ED, labs inc LFT, BMP, CBC were neg and CT was unremarkable without any acute pathology EGD then done 02/2019 with bx revealing chronic reflux damage and gastritis, looked like sandy but the stain was neg U/s 03/2019- liver normal, F0 on elastography, ?left kidney stone, Ba swallow 03/2019- patent GEJ, mild reflux pending urine 24 hr tests and metanephrines At f/u visit 05/2019--she was awaiting w/u for interstitial cystitis she was doing well with donantal and compazine capsule endoscopy was done and was neg was advised to try align, IBGARD, stress reduction She had cystoscopy with Dr Rodriguez for her IC she had surgery with removal of adhesions at [facility] 05/2021 and hiatal hernia repair she had ongoing problems and had EGD with gastritis, and bile reflux in stomach she is on trileptel for bipolar I ordered KUB with moderate stool burden Increased movantik to 25 mg but stopped it due to too much diarrhea she had kenalog injection to area of pain in abdomen, which she feels may have helped a little She had EGD/colon with Dr Allan 04/05 Marginal ulcer noted at [facility] colon was tortuous hyperplastic polyp removed with random colo bx with crypt distortion REPT EGD: 08/24/22 Hx of gastric bypass Findings: Larynx:normal Esophagus: GE junction at 37 cm, diaphragm hiatus at 37 cm, no varices or esophagitis. Stomach pouch: x 4 retained sola noted with mild superficial inflammation and erosions noted around 3 of these. These were removed with cold forceps and bx taken from the anastomotic site and the pouch. Overall appearances appeared improved as compared to before. Jejunum: Normal Intervention: Biopsies as noted above, removal of retained sola Impression/Findings: retained sola mild inflammation around anastomosis PLAN: cont with PPI I again scoped her for reassessment 02/15/23-- improved compared to before with chronic active inflammation at anastomosis i added ursodiol She had in patient admission, egd and sigmoid findings: inflammation at gastric jejunal anastomosis and jejuno jejunal anastomosis Sigmoidoscopy Findings: possible colopathy dysmotility INTERIM: she is still stressed --mother is ill, son in divorce weight is not going up she has pain with eating she feels she is not getting good help with counseling, sees psychiatrist, she is trying meditation, she has liquid stools, she thinks due to ensure EXAM: GENERAL: The patient is weak, frail VITAL SIGNS:see workflow HEENT: Nonicteric sclerae, PERRLA, EOMI. Oropharynx clear. Moist mucous membranes. Conjunctivae appear well perfused. No thyroid mass. CHEST: Chest wall is nontender. HEART: Regular rate and rhythm without murmurs. LUNGS: Clear to auscultation bilaterally. ABDOMEN: Soft, positive bowel sounds, nontender, no organomegaly.no flank tenderness SKIN: No rash, no excessive bruising, petechiae, or purpura. NEUROLOGIC: Cranial nerves II-XII intact without motor/sensory deficit. Psych: normal affect Assessments 1/ attacks of abdominal pain, diarrhea, nausea, uncertain etiology, possibly from cortisol insuff, being evaluated by endo and maybe due to cortisol shots--worse with stress--uncertain etiology, need to r.o MALS, SMA syndrome, also has chronic cystitis, also signifcant stress and anxiety PLAN: 1/ cont to take open capsule esomeprazole and cont carafate, open mesalamine and take--add crean and again open capsule and take with apple sauce 2/ given 3 dilaudid until she sees her PCP tomorrow, 3/ check US and doppler, stool studies 4/ f/u with her psych and counseling --might need to change mirtazepine [facility] Medical History Low serum cortisol level Spinal stenosis HTN (hypertension) Multinodular goiter Decreased oral intake Takotsubo cardiomyopathy Burn injury Arthritis Low back pain Elevated cholesterol SOB (shortness of breath) Asthma Numbness Mood disorder IBS (irritable bowel syndrome) OAB (overactive bladder) Sleep apnea Hypersomnia Anxiety Surgical History Hx of gastric bypass Hx of total knee replacement Hx of knee surgery Hx of hernia repair History of cystoscopy Hx of laparoscopic gastric banding Hx of hysterectomy History of H/O gastric bypass Hx of endoscopy History of colonoscopy Family History Father Hx of colon cancer, stage IV Mother Family history of high blood pressure Social History Household Members: Children Household Members Other:: My son Housing: Apartment Are you a primary manager respiratory care to a significant other at home: No Do you presently have visiting nurse or other home services: Yes (youngest dtr is boat diesel motor mechanic) Alcohol intake: never Comment: previously medicated Patient Tobacco Use Status: Never used Tobacco e-Cigarette/Vaping Use: Never Used Second Hand Smoke Exposure: No Substance Use Type: Marijuana service: No Physical Exam Vital Signs: Last Vital Signs Pulse 82 01/21/25 12:30 BP 145/90 H 01/21/25 12:30 BMI result Body Mass Index 21.3 Assessment & Plan Assessment & Plan (1) Diarrhea: Code(s): R19.7 - Diarrhea, unspecified Category: Medical Plan: as above Orders: Orders Lactoferrin, Fecal, Quant. Today K51.50 - Left sided colitis without complications, R19.7 - Diarrhea, unspecified, R19.8 - Other specified symptoms and signs involving the digestive system and abdomen Pancreatic Elastase-1 Today R19.7 - Diarrhea, unspecified, R19.8 - Other specified symptoms and signs involving the digestive system and abdomen CDiff Gene PCR Today R19.7 - Diarrhea, unspecified, R19.8 - Other specified symptoms and signs involving the digestive system and abdomen Fecal Fat Qualitative Today R19.7 - Diarrhea, unspecified, R19.8 - Other specified symptoms and signs involving the digestive system and abdomen Medications: New kozupx-tcnwjlpf-iefusea (pork) 12,000-38,000 -60,000 unit (Creon) administer with meals and/or snacks 2 caps PO TID 240 caps 2RF food supplemt, lactose-reduced (Ensure oral liquid) 2 ea PO TID 180 ea 2RF hydromorphone (Dilaudid) Partial Fill upon patient request. 2 mg PO Q6H 3 tabs 0RF Coding Level of Care Code Est Pt Level 3 (16136) Diagnoses Diarrhea R19.7
[2025-01-21 12:30] VITALS: BP 145/90; PULSE 82; BMI 21.3
--- OUTSIDE RECORDS SUMMARY | 2025-01-21 14:28 | XMS_ITS | Encounter Summary ---
Author Organization [facility] Address [address] [place] [phone] Phone Care Team Providers Care Cutter Operator Helper Name Role Phone Romeo Jacobson MD Primary Care Provid er Lisseth Nassar REFERENCE AND INSTRUCTION LIBRARIAN Unavailable [phone] Encounter Details Date Type Department Care Team (Late st Contact Info) Description 12/08/2023 Procedure Pass OR Admitting Dept - Virtual Department [address] [place] [address] Social History Tobacco Use Types Packs/Day Years [...] on filedocumented in this encounter Care Teams Cutter Operator Helper Relationship Specialty Start Date End Date Romeo Jacobson MD [address] [place] [address] PCP - General Internal Medicine 09/04/20 Lisseth Nassar NP [address] [place] [phone] [email or web address] Nurse Practitioner Family Medicine 09/04/20 documented as of this encounter Additional Source Comments The information contained in this document represents components of the legal health record. It is not the complete legal health record.[facility]
--- OUTSIDE RECORDS SUMMARY | 2025-01-21 14:28 | XMS_ITS | Encounter Summary ---
Author Organization [facility] Address [address] [place] [address] Phone Care Team Providers Care Bioinformatics Team Member Name Role Phone Romeo Jacobson MD Primary Care Provid er Lisseth Nassar DANCE COACH Unavailable [phone] Encounter Details Date Type Department Care Team (Late st Contact Info) Description 10/15/2020 [facility] [address], [address] [place] [address] Angelika Byrne, ENGINEERING EXECUTIVE [address] [place] [address] [email or web address] Social History Tobacco Use Types Packs/Day [...] on filedocumented in this encounter Care Teams Bioinformatics Team Member Relationship Specialty Start Date End Date Romeo Jacobson MD [address] [place] [address] PCP - General Internal Medicine 09/04/20 Lisseth Nassar NP [address] [place] [address] [email or web address] Nurse Practitioner Family Medicine 09/04/20 documented as of this encounter Additional Source Comments The information contained in this document represents components of the legal health record. It is not the complete legal health record.[facility]
--- OUTSIDE RECORDS SUMMARY | 2025-01-21 14:28 | XMS_ITS | Clinical Summary ---
Author Organization [facility] Address [address] [place] [address] Phone Care Team Providers Care Cook Starch Name Role Phone Lisseth Nassar ROBOTIC MACHINE OPERATOR Primary Care Provider [phone] Allergies Active Allergy Reactions Criticality Noted Date Comments Divalproex Palpitations High 08/16/2024 Fentanyl Fainting,Other,Anaph y laxis High 02/09/2022 Haloperidol Anxiety Low 02/15/2022 Other Reaction(s): Feeling Irritable Morphine Low 08/12/2020 Redness around the site Nsaids (Non-Steroidal Anti-Inflammatory Drug) Other 09/08/2020 GI bleeding Sertraline Other 09/08/2020 Other Reaction(s): QT wave change interferes withQT waves of heart changed my QT interval has a load tester changed my QT interval has a load tester Sulfa (Sulfonamide Antibiotics) Rash Low 09/08/2020 Sulfamethoxazole-Tri [...] Chronic abdominal pain 06/24/2024 Acute renal failure ([facility] V24) 03/17/2024 Acute kidney injury ([facility] V24) 03/17/2024 NSTEMI (non-ST elevated myoc ardial infarction) ([facility] V24, [facility] V28) 11/23/2023 Hypertensive disorder 10/26/2018 Overview (07/05/2024): Status: 'A'; Low back pain 03/05/2016 Overview (07/05/2024): Problem Code: M54.5; Problem Code Type: ICD-10; Status: 'A'; Resolved Problems Problem Noted Date Diagnosed Date Resolved Date Intussusception ([facility] V24, [facility] V28) 07/03/2024 07/16/2024 Generalized abdominal pain 06/25/2024 0 06/28/2024 Encounters Date Type Department Care Team Description 11/12/2024 8:06 AM EDT - 11/12/2024 2:14 PM EDT Emergency [facility] Emergency [address] [place] [address] Indra Beach MD Generalized abdominal pain (Primary Dx) Discharge Disposition: Home or Self Care 11/07/2024 11:30 AM EDT Office Visit Plastic & Reconstructive Surgery [facility] [address] [place] [phone] Tomas Edmond DO Abdominal pannus (Primary Dx); [...] Opioid type dependence, cont inuous (CMS/HCC V24, [facility] V28) Chronic abdominal pain Non-ischemic cardiomyopathy ([facility] V24, [facility]/ C V28) Irritable bowel syndrome GERD (gastroesophageal reflux disease) Low serum cortisol level Interstitial cystitis IL (myocardial infarction) ([facility] V24, [facility] V28) GI bleed Family History Medical History [...] this topic Medical Devices Implanted Type Area Airline Counter Agent Device Identifier Shelf Expiration Date Model / [...] GEMUSE QTc 475 ms GEMUSE P Wave [place] -6 degrees GEMUSE R [place] 45 degrees GEMUSE T [place] 40 degrees GEMUSE ECG Interpretation Normal sinus [...] Signed Date: 11/12/2024 10:26 ET Workstation ID: [id number] Transcribed By: Self Edit Transcribed Date: 11/12/2024 [...] Signed Date: 11/12/2024 10:26 ET Workstation ID: [id number] Transcribed By: Self Edit Transcribed Date: 11/12/2024 10:16 ET Rosangela DELATORRE IMG CT PROCEDURES Final Resu lt * Urinalysis with reflex microscopic and culture (11/12/2024 9:31 AM EDT) Specific [place] Urine 1.012 1.003 - 1.030 LAB URINALYSIS - AUTOMATED METHOD 11/12/2024 9:[address] [facility] pH, Urine 8.0 5.0 - 8.0 pH LAB URINALYSIS - AUTOMATED METHOD 11/12/2024 9:[address] [facility] Leukocytes, Urine Negative Negative LAB URINALYSIS - AUTOMATED METHOD 11/12/2024 9:[address] [facility] Nitrite, Urine Negative Negative LAB URINALYSIS - AUTOMATED METHOD 11/12/2024 9:[address] [facility] Protein, Urine Trace <=Trace mg/dL LAB URINALYSIS - AUTOMATED METHOD 11/12/2024 9:[address] [facility] Glucose, Urine Negative Negative mg/dL LAB URINALYSIS - AUTOMATED METHOD 11/12/2024 9:[address] [facility] Ketones, Urine Negative Negative mg/dL LAB URINALYSIS - AUTOMATED METHOD 11/12/2024 9:[address] [facility] Urobilinogen, Urine 0.2 0.2 - 1.0 mg/dL LAB URINALYSIS - AUTOMATED METHOD 11/12/2024 9:[address] [facility] Bilirubin, Urine Negative Negative LAB URINALYSIS - AUTOMATED METHOD 11/12/2024 9:[address] [facility] Blood, Urine Negative Negative LAB URINALYSIS - AUTOMATED METHOD 11/12/2024 9:[address] [facility] Urine Urine specimen obtained by clean catch procedure / Unknown Non-blood Collection / Unknown 11/12/2024 9:31 AM EDT 11/12/2024 9:51 AM EDT Rosangela DELATORRE LAB URINE ORDERABLES Final R esult Performing Organization Address [facility]/ZIP Co de Phone Number [facility] [address] [place] [address], [place] [phone] * Mccoy urine culture tube (11/12/2024 9:31 AM EDT) [facility] Extra Tube Hold for add-ons. 11/12/2024 11:01 AM EDT [facility] Comment:Auto resulted. Urine Urine specimen obtained by clean catch procedure / Unknown Non-blood Collection / Unknown 11/12/2024 9:31 AM EDT 11/12/2024 9:51 AM EDT us Rosangela DELATORRE LAB URINE ORDERABLES Final R esult Performing Organization Address [facility] Co de Phone Number [facility] [address] [place] [address], [place] [phone] * Lactate, with reflex (11/12/2024 8:42 AM EDT) [facility] LACTIC ACID 1.7 0.4 - 2.0 mmol/L LAB CHEMISTRY METHOD 11/12/2024 9:21 AM EDT [facility] Blood Venous blood specimen / Unknown Venipuncture / Unknown 11/12/2024 8:42 AM EDT 11/12/2024 8:57 AM EDT Rosangela DELATORRE LAB BLOOD ORDERABLES Final R esult Performing Organization Address [facility] Co de Phone Number [facility] [address] [place] [address], [place] [phone] * Troponin I high sensitivity (11/12/2024 8:42 AM EDT) High Sensitivity Troponin I <3 <=54 ng/L LAB CHEMISTRY METHOD 11/12/2024 9:21 AM EDT [facility] Blood Venous blood specimen / Unknown Venipuncture / Unknown 11/12/2024 8:42 AM EDT 11/12/2024 8:57 AM EDT Narrative [facility] - 11/12/2024 9:21 AM EDT High levels of biotin in samples may falsely decrease hsTroponin values. Use caution when interpreting hsTroponin results in patients taking biotin who exhibit renal impairment (eGFR <60) or in patients taking more than 20 mg/day of biotin. Rosangela DELATORRE LAB BLOOD ORDERABLES Final R esult [facility] [address] [place] [address], * (ABNORMAL) CBC auto differential (11/12/2024 8:42 AM EDT) Pathologist [facility] WBC 7.9 4.8 - 10.8 K/mcL LAB HEMETOLOGY METHOD [facility] RBC 5.00(H) 3.80 - 4.80 M/mcL LAB HEMETOLOGY METHOD 11/12[facility]2024 [facility] Hemoglobin 14.5 11.5 - 16.0 g/dL LAB HEMETOLOGY METHOD 11/12/2024 9[facility] Hematocrit 42.2 35.0 - 47.0 % LAB HEMETOLOGY METHOD 11/12/2024 9:[facility] MCV 85.3 79.0 - 98.0 FL LAB HEMETOLOGY METHOD 11/12/2024 9:[address] [facility] MCH 29.3 27.0 - 32.0 pcg LAB HEMETOLOGY METHOD 11/12/2024 9:[address] [facility] MCHC 34.4 32.0 - 37.0 g/dL LAB HEMETOLOGY METHOD 11/12/2024 9:[address] [facility] RDW 15.4(H) 11.0 - 15.0 % LAB HEMETOLOGY METHOD 11/12/2024 9:[address] [facility] Platelets 218 130 - 400 K/mcL LAB HEMETOLOGY METHOD 11/12/2024 9:[address] [facility] MPV 10.5 7.0 - 11.0 FL LAB HEMETOLOGY METHOD 11/12/2024 9:[address] [facility] NRBC 0.0 <1.0 % LAB HEMETOLOGY METHOD 11/12/2024 9:[address] [facility] NRBC Absolute 0.00 <0.10 K/mcL LAB HEMETOLOGY METHOD 11/12/2024 9:[address] [facility] Neutrophils Relative 71.7 % LAB HEMETOLOGY METHOD 11/12/2024 9:[address] [facility] Lymphocytes Relative 23.8 % LAB HEMETOLOGY METHOD 11/12/2024 9:[address] [facility] Monocytes Relative 3.7 % LAB HEMETOLOGY METHOD 11/12/2024 9:[address] [facility] Eosinophils Relative 0.4 % LAB HEMETOLOGY METHOD 11/12/2024 9:[address] [facility] Basophils Relative 0.3 % LAB HEMETOLOGY METHOD 11/12/2024 9:[address] [facility] Immature Granulocytes Relative 0.1 % LAB HEMETOLOGY METHOD 11/12/2024 9:[address] [facility] Neutrophils Absolute 5.63 1.50 - 7.00 K/mcL LAB HEMETOLOGY METHOD 11/12/2024 9:19 AM EDT [facility] Lymphocytes Absolute 1.87 1.00 - 5.00 K/mcL LAB HEMETOLOGY METHOD 11/12/2024 9:19 AM EDT [facility] Monocytes Absolute 0.29 0.20 - 1.00 K/mcL LAB HEMETOLOGY METHOD 11/12/2024 9:19 AM EDT [facility] Eosinophils Absolute 0.03 0.00 - 0.50 K/[facility] LAB HEMETOLOGY METHOD 11/12/2024 9:19 AM EDT [facility] Basophils Absolute 0.02 0.00 - 0.20 K/[facility] LAB HEMETOLOGY METHOD 11/12/2024 9:19 AM EDT [facility] Immature Granulocytes Absolute 0.01 0.00 - 0.03 K/mcL LAB HEMETOLOGY METHOD 11/12/2024 9:19 AM EDT [facility] Blood Venous blood specimen / Unknown Venipuncture / Unknown 11/12/2024 8:42 AM EDT 11/12/2024 8:57 AM EDT us Indra Beach MD LAB BLOOD ORDERABLES Final Resul t [facility] [address] [place] [address], * hCG, serum, qualitative (11/12/2024 8:42 AM EDT) hCG Qual Negative Negative 11/12/2024 10:38 AM EDT [facility] Blood Venous blood specimen / Unknown Venipuncture / Unknown 11/12/2024 8:42 AM EDT 11/12/2024 8:57 AM EDT us Indra Beach MD LAB BLOOD ORDERABLES Final Resul t [facility] [address] [place] [address], [place] [phone] * Lipase (11/12/2024 8:42 AM EDT) [facility] Lipase 31 13 - 75 unit/L LAB CHEMISTRY METHOD 11/12/2024 9:25 AM T [facility] Blood Venous blood specimen / Unknown Venipuncture / Unknown 11/12/2024 8:42 AM EDT 11/12/2024 8:57 AM EDT us Indra Beach MD LAB BLOOD ORDERABLES Final Resul t [facility] [address] [place] [address], [place] [phone] * (ABNORMAL) Comprehensive metabolic panel (11/12/2024 8:42 AM EDT) [facility] Sodium 136 133 - 145 mmol/L LAB CHEMISTRY METHOD 11/12/2024 9:[address] [facility] Potassium 3.6 3.5 - 5.5 mmol/L LAB CHEMISTRY METHOD 11/12/2024 9:[address] [facility] Comment:Hemolysis present Chloride 104 96 - 110 mmol/L LAB CHEMISTRY METHOD 11/12/2024 9:[address] [facility] CO2 25 21 - 32 mmol/L LAB CHEMISTRY METHOD 11/12/2024 9:[address] [facility] Anion Gap 7 3 - 11 LAB CHEMISTRY METHOD 11/12/2024 9:[address] [facility] Glucose 128(H) 70 - 100 mg/dL LAB CHEMISTRY METHOD 11/12/2024 9:[address] [facility] BUN 7 5 - 25 mg/dL LAB CHEMISTRY METHOD 11/12/2024 9:[address] [facility] Creatinine 0.76 0.50 - 1.10 mg/dL LAB CHEMISTRY METHOD 11/12/2024 9:[address] [facility] eGFR 97 >=60 mL/min/1. 73m2 LAB CHEMISTRY METHOD 11/12/2024 9:[address] [facility] Comment:Calculation based on the Chronic Kidney Disease Epidemiology Collaboration (CKD-EPI) equation refit without adjustment for race. BUN/Creatinine Ratio 9.2 LAB CHEMISTRY METHOD 11/12/2024 9:[address] [facility] Calcium 9.5 8.5 - 10.5 mg/dL LAB CHEMISTRY METHOD 11/12/2024 9:[address] [facility] AST (SGOT) 27 10 - 42 unit/L LAB CHEMISTRY METHOD 11/12/2024 9:[address] [facility] Comment:Hemolysis present ALT (SGPT) 27 10 - 60 unit/L LAB CHEMISTRY METHOD 11/12/2024 9:[address] [facility] Alkaline Phosphatase 108 42 - 121 unit/L LAB CHEMISTRY METHOD 11/12/2024 9:[address] [facility] Total Protein 9.1(H) 6.0 - 8.0 g/dL LAB CHEMISTRY METHOD 11/12/2024 9:[address] [facility] Albumin 4.8 3.2 - 5.0 g/dL LAB CHEMISTRY METHOD 11/12/2024 9:[address] [facility] Total Bilirubin 0.5 0.0 - 1.4 mg/dL LAB CHEMISTRY METHOD 11/12/2024 9:[address] [facility] Blood Venous blood specimen / Unknown Venipuncture / Unknown 11/12/2024 8:42 AM EDT 11/12/2024 8:57 AM EDT us Indra Beach MD LAB BLOOD ORDERABLES Final Resul t [facility] [address] [place] [address], [place] [phone] from Last 3 Months Insurance MEDICARE MEDICA[place] - [place] Advance Directives * Full Code - Default [...] currently active code status orders. Care Teams Cook Starch Relationship Specialty Start Date End Date Lisseth Nassar NP [address] [place] [address] PCP - General 07/07/21
--- OUTSIDE RECORDS SUMMARY | 2025-01-21 14:28 | XMS_ITS | Clinical Summary ---
Author Organization [facility] Address [address] [address] Phone Care Team Providers Care Fiber Optics Supervisor Name Role Phone Romeo Jacobson MD Primary Care Provid er Lisseth Nassar COMPRESSED YEAST SUPERVISOR Unavailable [phone] Allergies Active Allergy Reactions Criticality Noted Date Comments Fentanyl Other (See Comments) 02/09/2022 Haloperidol Feeling Irritable Low 02/18/2022 Morphine Low 09/08/2020 Redness around the site Nsaids (Non-Steroidal Anti-Inflammatory Drug) Other (See Comments) 09/08/2020 GI bleeding Sertraline Other (See Comments) 09/08/2020 interferes withQT waves of heart 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 Sulfa (Sulfonamide Antibiotics) Rash Low 02/09/2022 Sulfamethoxazole-Trimet [...] 1 TO 3 TS PO HS PRF 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 PROFESSOR OF MEDICINE Active scopolamine (TRANSDERM-SCOP) 1 mg over 3 [...] patient's age to complete this topic IPV VACCINES Aged Out No longer eligi ble [...] topic Medical Devices Not on file Insurance [address] [place], [place] [address]HEALTH MEDICARE PART A & B [facility] [address] [place], [place] [address]HEALTH MEDICARE PART A & B [facility] MEDIC[facility] PART A & B [facility] & B [facility] MEDIC[facility] PART A & B MEDICARE PART A & B [facility] MEDICARE PART A & B [facility] MEDICARE PART A & B Care Teams Fiber Optics Supervisor Relationship Specialty Start Date End Date Romeo Jacboson MD [address] [place] [address] PCP - General Internal Medicine 09/04/20 Lisseth Nassar NP [address] [place] [address] [email or web address] Nurse Practitioner Family Medicine 09/04/20 Additional Source Comments The information contained in this document represents components of the legal health record. It is not the complete legal health record.[facility]
--- OUTSIDE RECORDS SUMMARY | 2025-01-21 14:29 | XMS_ITS | Data Portability ---
Author Organization [place] [facility] Address [address] [place] [address] Care Team Providers Care Manager Sales Training Name Role Phone [facility] Primary Care Provider Assessment Encounter Date Assessment Date Assessment LastModified by Organization Details LastModified Time 08/22/2021 08/22/2021 Proper Personal Protective Equipment (PPE), including gloves, eye protection and masks were donned and doffed appropriately and all equipment cleaned using approved technique with germicidal disposable wipes prior to and after care of this patient according to [facility]'s infection prevention protocols. Overview/History: 45 yo [...] or fevers begin she will seek [facility] medical attn [email or web address] Not available 08/22/2021 17:51:56 10/26/2021 10/26/2021 Overview/History : 46 YO F new to provider and known to She is being seen today for ? asthma exacerbation She is c/o of sob and chest pain today mostly pleuritic she thinks however it is progressive and she eventually describes it as crushing and substernal, 10/10 pain. She did go to [facility] last night where she waited for [...] but she does report she has a slot key person for heart issues . I did ask [...] pt handed off -Expect called in to [facility] She cont to look worse and more [...] 2021 ceci [facility] - [facility], [address] [place], [address], 18:46:25 Referral None recorded. Procedures None recorded. Surgeries None recorded. Imaging XR, chest, 2 view - call [phone] // rule out rib fx [place]. lower left anterior 2021 [place] [email or web address] [address] [place], [address], 12:52:30 Medication Orders Lidoderm 5 % topical patch 2021 [place] [id number], [address] [place], [place], [id number], 15:56:31 Patient TargetsNo targets recorded. Patient Instructions Encounter Date Encounter Id Patient Instructions Last Modified By Organization Details Last Modified Time 08/22/2021 [id number] Back Pain - Discharge Instructions Basic Information: [...] this pain, you can find demonstrations on [employer] Weight loss will help to relieve stress [...] in your condition between 8am-10pm, please call [facility] at [phone] to help navigate your care. [email or web address] Not available 08/22/2021 15:47:10 Reason for Referral None Reported. Results Created Date Observation Date Name Description Value Unit Range Abnormal Flag Note LastModifiedBy Organization Detail LastModifiedTime 10/27/19 22 10/26/2021 rapid SARS CoV 2 Ag, QL IA, respi rator y speci men Covid-19 (ref: neg) negati ve Not Available Spr - Home [address] [place], [address], 10/26/2021 18:46:03 10/27/19 22 10/26/2021 rapid SARS CoV 2 Ag, QL IA, respi rator y speci men Control Visual ized/V alid Not Available [facility] - Home [address] [place], [address], 10/26/2021 18:46:03 10/27/19 22 10/26/2021 rapid SARS CoV 2 Ag, QL IA, respi rator y speci men Location SPR, [facility], [address] [place] [address], [phone] Not Available [facility] Home [address] [place], [address], 10/26/2021 18:46:03 08/25/19 22 08/24/2021 XR, chest [...] KAMRON PALMA M.D. 12:39: 33 PM EDT. [email or web address] [facility] [address] [facility] [address], [place], [address], 08/24/2021 16:45:15 10/27/19 elect rocar diogr am [...] EDT. JUAN RAMON Denney [address], [place], [address], [place] [facility] 08/24/2021 16:45:15 Procedures Surgical History Date Name Laterality Status Provider Name and Address Organization Details Recorded Time ECG Interpretation - DH completed JUAN RAMON Najera [address], [place], [address], [place] [facility] 10/26/2021 18:37:54 section completed JUAN RAMON Moran [address], [place], [address], [place] [facility] 10/26/2021 17:22:43 operative procedure on knee completed JUAN RAMON Najera [address], [place], [address], [place] [facility] 10/26/2021 17:22:50 Imaging Results None recorded. Procedure Notes None recorded. Medical Equipment None Reported. Allergies Allergen ID Allergen Name Allergen Category Reaction Reaction Severity Criticality Documentation Date Start Date Code Code System Note Provider Name and Address Organization Details Recorded Time [id number] sulfadiaz ine medicatio n Not available Not available Not available 10/26/2021 16703 RxNorm Fahad iraida Terrazas, [place] [address], [place], [address], [place] [facility] 2 16:59:38 898824 sertralin e medicatio n Not available Not available Not available 10/26/2021 21216 RxNorm Fahadweston [place]razas, [place] [address], [place], [address], [place] [facility] 2 16:59:46 407151 Substance with sulfonami de structure and antibacte rial mechanism of action (substanc e) medicatio n Not available Not available Not available 10/26/2021 45808 8003 SNOMED Fahadweston Terrazas, PA [address], [place], [address], [place] [facility] 2 16:59:53 134209 fentanyl medicatio n Not available Not available Not available 10/26/2021 4337 RxNorm Fahad iraida [place]razas, PA [address], [place], [address], [place] [facility] 2 17:00:04 896300 Non-stero idal anti-infl ammatory agent (substanc e) medicatio n Not available Not available Not available 10/26/2021 67275 5008 SNOMED Fahadweston Terrazas PA [address], [place], [address], [place] [facility] 2 17:00:15 Medications Name Sig Start Date Stop Date Status Note LastModified by Organization Details LastModified Time quetiapine 25 mg tablet TK 1 TO 3 TS PO HS 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 15:54:01 Date Recorded Body temperature Oxygen saturation Oxygen saturation in Arterial blood by Pulse oximetry Heart rate Respiratory rate Systolic And Diastolic Provider Name and Address Organization Details Last Updated DateTime 2 98.6 [degF] 98 % 98 % 116 /min 16 /min 144/96 mm[Hg] Not Available [facility] 2 17:34:30 Social History None recorded. [...] CHF N Parkinson's Disease N Cancer N Dementia N Stroke N Depression N Asthma Y COPD N Hypothyroidism N High Cholesterol N Rheumatoid Arthritis N Pulmonary Embolism N Hypertension Y A-fib N Osteoporosis N Kidney Disease N Gynecological HistoryNo gynecological history recorded. Obstetrics History GPAL:G 0 P 0 0 0 0 Past Encounters Encounter ID Performer Location Encounter Start Date Encounter Closed Date Diagnosis/Indication Diagnosis SNOMED-CT Code Diagnosis ICD10 Code Diagnosis IMO Codes Diagnosis Note [id number] JUAN RAMON Narvaez [facility] [address] [employer] [place] [address] 08/22/2021 15:45:20 08/26/2021 13:50:16 Rib pain 113224773 R07.81 [id number] JUAN RAMON Blanco [facility] [address] [employer] [place] [address] 10/26/2021 16:56:17 10/27/2021 09:46:32 Chest pain 11647389 R07.9 Dyspnea 964571808 R06.00 Sinus tachycardia 873967 01 R00.0 Health Concerns Section Related Observation LastModified by Organization Detai ls LastModified Time None Recorded Concern Status LastModified by Organization Details LastModified Time None Recorded Advance Directives Directive None Recorded Payers Insurance Date Sequence Insurance Name Policy Number Policy Leo Covered Member ID Leo Member ID Guarantor Name 08/22/2021 1 [facility] Selinea Rc [id number] Eboni Rc 10/21/2020 1 [facility] H[facility] Selinea Cragford [id number] Eboni Rc 10/21/2020 1 *SELF PAY* Selinea Cragford [id number] Eboni Cragford 10/27/2021 1 [place] [employer] Eboni A Rc [id number] Eboni Cragford 10/26/2021 2 [place] [facility] Eboni Cragford [id number] Eboni Cragford Notes Date Note Type Note Provider Name [...] trauma// JUAN RAMON Narvaez [address], [place], [address], [place] [facility] 08/22/2021 17:52:04 2 text/html 46 YO F [facility] to provider [facility] asthma exacerbationShe is c/o of sob and chest pain today mostly pleuritic she thinks however it is progressive and she eventually describes it as crushing and substernal, 10/10 pain. She did go to [facility] last night where she waited for [...] but she does report she has a slot key person for heart issues . I did ask [...] yesterday. JUAN RAMON Najera [address], [place], [address], [place] [facility] 10/26/2021 18:50:29 OBGyn Episode No OBEpisode recorded.
--- OUTSIDE RECORDS SUMMARY | 2025-01-21 14:29 | XMS_ITS | Clinical Summary ---
Author Organization [facility] Address [address] [place] [address] Care Team Providers Care Pot Liner Name Role Phone Unavailable Primary Care Provider [...]
== END 2025-01-21 13:06 | disposition home or self-care (01) ==
LOC: HO.HGI 12:05
PROVIDERS: PCP Nurse Practitioner Family; Visit Provider Internal Medicine Gastroenterology
DX: R19.7 Diarrhea, unspecified (principal)
CPT/HCPCS: 99213

== ENCOUNTER → 2025-01-21 12:04 | Outpatient (BNVA) | payer MEDICARE, MEDICAID, SELFPAY | PROVIDERS: PCP Nurse Practitioner Family; Visit Provider Internal Medicine Gastroenterology | DX: K51.50 Left sided colitis without complications (principal); R19.7 Diarrhea, unspecified | CPT/HCPCS: 99212 ==

== ENCOUNTER 2025-01-25 13:27 | Outpatient (AMB) | payer MEDICARE, MEDICAID, SELFPAY ==
--- NOTE | 2025-01-25 13:33 | HO.NEPHOV_ITS ---
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: No Accompanied by: Self / Same As Patient Allergies sertraline (From ZOLOFT) Allergy (Intermediate, Verified 01/25/25 13:40) prolonged QT interval Sulfa (Sulfonamide Antibiotics) (SULFA (SULFONAMIDE ANTIBIOTICS)) Allergy (Intermediate, Verified 01/25/25 13:40) RASH haloperidol (From Haldol) Allergy (Mild, Verified 01/25/25 13:40) unknown morphine (MORPHINE) Allergy (Mild, Verified 01/25/25 13:40) Rash NSAIDS (Non-Steroidal Anti-Inflamma (NSAIDS (NON-STEROIDAL ANTI-INFLAMMA) Adverse Reaction (Intermediate, Verified 01/25/25 13:40) STOMACH UPSET fentanyl patch Allergy (Severe, Uncoded 01/07/25 12:40) Unresponsive HPI Comments Details: 49 year old with history of chronic gastritis, anxiety, depression, history of lap band removal, hypertension, FLOWER, bipolar disorder as well as interstitial cystitis who follows up closely with Urology for her cystitis, was seen in follow up for hypertension. She had normal renal functions but hsa H/O MELANY which has been resolved. She has been having BP spikes when her pain control is not optimal. She is on pain medications. She feels she needs long acting pain medications. She claims to have family history of renal dysfunction ( Mom). There was no family history of any sensorineural deafness, Alport syndrome, thin membrane disease. She is not a diabetic. 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 She denies taking excessive nonsteroidal anti-inflammatories. She has H/O intuscusseption and underwent intervention including revision of gastric surgery by Dr Allen. She also had been started on mesalamine. Her carvedilol had been increased to 12.5 mg bid and remains on Amlodipine 2.5 mg daily [facility] Medical History Low serum cortisol level Spinal stenosis HTN (hypertension) Multinodular goiter Decreased oral intake Takotsubo cardiomyopathy Burn injury Arthritis Low back pain Elevated cholesterol SOB (shortness of breath) Asthma Numbness Mood disorder IBS (irritable bowel syndrome) OAB (overactive bladder) Sleep apnea Hypersomnia Anxiety Surgical History Hx of gastric bypass Hx of total knee replacement Hx of knee surgery Hx of hernia repair History of cystoscopy Hx of laparoscopic gastric banding Hx of hysterectomy History of H/O gastric bypass Hx of endoscopy History of colonoscopy Family History Father Hx of colon cancer, stage IV Mother Family history of high blood pressure Social History Household Members: Children Household Members Other:: My son Housing: Apartment Are you a primary post anesthesia care unit nurse to a significant other at home: No Do you presently have visiting nurse or other home services: Yes (youngest dtr is chemical production machine operator) Alcohol intake: never Comment: previously medicated Patient Tobacco Use Status: Never used Tobacco e-Cigarette/Vaping Use: Never Used Second Hand Smoke Exposure: No Substance Use Type: Marijuana service: No Review of Systems Const All systems reviewed & are unremarkable except as noted in HPI and below Physical Exam Const General: comfortable and no acute distress Orientation/consciousness: patient oriented x3 HEENT Head: Yes normocephalic Mouth: Normal oral and palatal mucosa present Eyes EOM: EOMs intact bilaterally Neck Neck: Yes supple Resp Auscultation: clear to auscultation bilaterally Cardio Jugular venous distension: no JVD Rate: regular rate GI Palpation (GI): Soft to palpation Auscultation: normal bowel sounds General: Yes no CVA tenderness Back/Spine/Pelvis Back: no CVA tenderness Skin General skin exam: no rashes or lesions noted Neuro General: patient oriented x3 and moves all extremities Extrem General: Yes no pedal edema Results Reviewed Nephrology Results: Hgb, (12.0-16.0) 11.2 g/dl L 01/07/25 WBC, (4.8-10.8) 5.4 X10*3/uL 01/07/25 Plt Count, (160-400) 194 X10*3/uL Δ 01/07/25 Sodium, (135-145) 144 mmol/L 01/07/25 Potassium, (3.3-5.1) 3.5 mmol/L 01/07/25 Chloride, (96-108) 111 mmol/L H 01/07/25 Carbon Dioxide, (22-29) 26 mmol/L 01/07/25 BUN, (9-16) 7 mg/dL L 01/07/25 Creatinine, (0.5-1.4) 0.77 mg/dL 01/07/25 Calcium, (8.4-10.2) 8.6 mg/dL 01/07/25 Urine Protein, (Neg-Trace) Negative mg/dL 01/07/25 Renal US 04/19/23 Assessment & Plan Assessment & Plan (1) HTN (hypertension): Code(s): I10 - Essential (primary) hypertension Category: Medical Qualifiers: Hypertension type: primary hypertension Qualified Code(s): I10 - Es sential (primary) hypertension Plan Her renal functions is at baseline now. Her last renal ultrasound was normal. She has not known to have blood or protein in the urine. She is known to have interstitial cystitis for which she is closely followed up by her urologist. She avoids nonsteroidal anti-inflammatories . I asked her to C/W Carvedilol 12.5 mg bid & amlodipine 2.5 mg daily in noon time . She had an ECHO/Cardiac MRI. Her serum potassium is normal. I did not make any other medication changes today.I answered all questions Coding Level of Care Code Est Pt Level 4 (66445) Diagnoses Primary hypertension I10 Hypertension type: primary hypertension
[2025-01-25 13:40] VITALS: BP 106/60; PULSE 95; O2SAT 97; BMI 22.4
--- OUTSIDE RECORDS SUMMARY | 2025-01-25 19:48 | XMS_ITS | Data Portability ---
Author Organization [place] [facility] Address [address] [place] [address] Care Team Providers Care Spinner Box Name Role Phone [facility] Primary Care Provider Assessment Encounter Date Assessment Date Assessment LastModified by Organization Details LastModified Time 08/22/2021 08/22/2021 Proper Personal Protective Equipment (PPE), including gloves, eye protection and masks were donned and doffed appropriately and all equipment cleaned using approved technique with germicidal disposable wipes prior to and after care of this patient according to [facility] infection prevention protocols. Overview/History: 45 yo female [...] cough or fevers begin she will seek [facility] medical attn Not available 08/22/2021 17:51:56 10/26/2021 10/26/2021 Overview/History : 46 YO F new to provider and known to She is being seen today for ? asthma exacerbation She is c/o of sob and chest pain today mostly pleuritic she thinks however it is progressive and she eventually describes it as crushing and substernal, 10/10 pain. 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 I did ask [...] pt handed off -Expect [place] [facility] She cont to look worse and more [...] 2021 ceci [facility] - [facility], [address] [place], [address], 18:46:25 Referral None recorded. Procedures None recorded. Surgeries None recorded. Imaging XR, chest, 2 view - call [phone] // rule out rib fx [place]. lower left anterior 2021 CAPE MAY [facility] [address] [place], [address], 12:52:30 Medication Orders Lidoderm 5 % topical patch 2021 CAPE MAY [id number], [address], [place], [id number], 15:56:31 Patient TargetsNo targets recorded. Patient Instructions Encounter Date Encounter Id Patient Instructions Last Modified By Organization Details Last Modified Time 08/22/2021 [id number] Back Pain - Discharge Instructions Basic Information: [...] this pain, you can find demonstrations on [employer] Weight loss will help to relieve stress [...] in your condition between 8am-10pm, please call [facility] at [phone] to help navigate your care. [email or web address] Not available 08/22/2021 15:47:10 Reason for Referral None Reported. Results Created Date Observation Date Name Description Value Unit Range Abnormal Flag Note LastModifiedBy Organization Detail LastModifiedTime 10/27/19 22 10/26/2021 rapid SARS CoV 2 Ag, QL IA, respi rator y speci men Covid-19 (ref: neg) negati ve Not Available Spr - Home [address] [place], [address], 10/26/2021 18:46:03 10/27/19 22 10/26/2021 rapid SARS CoV 2 Ag, QL IA, respi rator y speci men Control Visual ized/V alid Not Available Spr - Home [address] [place], [address], 10/26/2021 18:46:03 10/27/19 22 10/26/2021 rapid SARS CoV 2 Ag, QL IA, respi rator y speci men Location SPR, [facility], [address] [place] [address], [phone] Not Available [facility] - Home [address] [place], [address], 10/26/2021 18:46:03 08/25/19 22 08/24/2021 XR, chest [...] KAMRON PALMA M.D. 12:39: 33 PM EDT. [email or web address] [employer] [facility] [id number], [place], [address], 08/24/2021 16:45:15 10/27/19 elect rocar diogr am [...] EDT. JUAN RAMON Denney [address], [place], [address], [place] [facility] 08/24/2021 16:45:15 Procedures Surgical History Date Name Laterality Status Provider Name and Address Organization Details Recorded Time ECG Interpretation - DH completed JUAN RAMON Najera [address], [place], [address], [place] [facility] 10/26/2021 18:37:54 section completed JUAN RAMON Moran [address], [place], [address], [place] [facility] 10/26/2021 17:22:43 operative procedure on knee completed JUAN RAMON Najera [address], [place], [address], [place] [facility] 10/26/2021 17:22:50 Imaging Results None recorded. Procedure Notes None recorded. Medical Equipment None Reported. Allergies Allergen ID Allergen Name Allergen Category Reaction Reaction Severity Criticality Documentation Date Start Date Code Code System Note Provider Name and Address Organization Details Recorded Time 245485 sulfadiaz ine medicatio n Not available Not available Not available 10/26/2021 75070 RxNorm Fahad iraida [place], [place] [address], [place], [address], [place] [facility] 2 16:59:38 015967 sertralin e medicatio n Not available Not available Not available 10/26/2021 71912 RxNorm Fahadweston [place], [place] [address], [place], [address], [place] [facility] 2 16:59:46 174952 Substance with sulfonami de structure and antibacte rial mechanism of action (substanc e) medicatio n Not available Not available Not available 10/26/2021 58915 8003 SNOMED Fahadweston [place], [place] [address], [place], [address], [place] [facility] 2 16:59:53 537156 fentanyl medicatio n Not available Not available Not available 10/26/2021 4337 RxNorm Fahad iraida [place], [place] [address], [place], [address], [place] [facility] 2 17:00:04 859830 Non-stero idal anti-infl ammatory agent (substanc e) medicatio n Not available Not available Not available 10/26/2021 86962 5008 SNOMED Fahadweston Terrazas PA [address], [place], [address], [place] [facility] 2 17:00:15 Medications Name Sig Start Date Stop Date Status Note LastModified by Organization Details LastModified Time quetiapine 25 mg tablet TK 1 TO 3 TS PO HS PRF [employer]ACH[employer] active Not Available Not Available No t [...] Not Available [facility] 15:54:01 Date Recorded Body temperature Oxygen saturation Oxygen saturation in Arterial blood by Pulse oximetry Heart rate Respiratory rate Systolic And Diastolic Provider Name and Address Organization Details Last Updated DateTime 2 98.6 [degF] 98 % 98 % 116 /min 16 /min 144/96 mm[Hg] Not Available [facility] 17:34:30 Social History None recorded. Functional Status Question Answer Note LastModified by Organizat ion Details LastModified Time Do you use any illicit or recreational drugs? Yes marijuana occasionally Information not available 10/26/2021 What is your level of alcohol consumption? None Information not available 10/26/2021 Mental Status None recorded. Family History Nothing Reported. Medical History Condition Response Coronary Artery Disease N COPD N Depression N Hypothyroidism N A-fib N Cancer N [...] ICD10 Code Diagnosis IMO Codes Diagnosis Note [id number] JUAN RAMON Narvaez [facility] [address] [place] [address] 08/22/2021 15:45:20 08/26/2021 13:50:16 Rib pain 635173417 R07.81 [id number] JUAN RAMON Blanco [facility] [address] [place] [address] 10/26/2021 16:56:17 10/27/2021 09:46:32 Chest pain 75449502 R07.9 Dyspnea 542249347 R06.00 Sinus tachycardia 161318 01 R00.0 Health Concerns Section Related Observation LastModified by Organization Detai ls LastModified Time None Recorded Concern Status LastModified by Organization Details LastModified Time None Recorded Advance Directives Directive None Recorded Payers Insurance Date Sequence Insurance Name Policy Number Policy Leo Covered Member ID Leo Member ID Guarantor Name 08/22/2021 1 [facility] Alainainea Rc [id number] Eboni Rc 10/21/2020 1 [facility] H[facility] Selender Lowell [id number] Eboni Rc 10/21/2020 1 *SELF PAY* Selinea Lowell [id number] Eboni Lowell 10/27/2021 1 [place]: [employer] Eboni A Rc [id number] Eboni Lowell 10/26/2021 2 [place]: [facility] Eboni Lowell [id number] Eboni Lowell Notes Date Note Type Note Provider Name [...] trauma// JUAN RAMON Narvaez [address], [place], [address], [place] [facility] 08/22/2021 17:52:04 2 text/html 46 YO F [facility] to provider [facility] asthma exacerbationShe is c/o of sob and chest pain today mostly pleuritic she thinks however it is progressive and she eventually describes it as crushing and substernal, 10/10 pain. 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 I did ask [...] yesterday. JUAN RAMON Najera [address], [place], [address], [place] [facility] 10/26/2021 18:50:29 OBGyn Episode No OBEpisode recorded.
== END 2025-01-25 14:09 | disposition home or self-care (01) ==
LOC: HO.HKA 13:28
PROVIDERS: PCP Nurse Practitioner Family; Visit Provider Internal Medicine Nephrology
DX: I10 Essential (primary) hypertension (principal)
CPT/HCPCS: 99214

== ENCOUNTER → 2025-01-25 13:27 | Outpatient (BNVA) | payer MEDICARE, MEDICAID, SELFPAY | PROVIDERS: PCP Nurse Practitioner Family; Visit Provider Internal Medicine Nephrology | DX: I10 Essential (primary) hypertension (principal) | CPT/HCPCS: 99212 ==

== ENCOUNTER 2025-01-29 10:23 | Outpatient (REF) | payer MEDICARE, MEDICAID, SELFPAY ==
--- NOTE | ~2025-01-29 | US_ITS ---
EXAMINATION: US MESENTERIC WITH DOPPLER CLINICAL INFORMATION: Epigastric pain COMPARISON: Previous CT of the abdomen and pelvis May 2024 and small bowel follow-through most recent January 2024 TECHNIQUE: Ultrasound along with color Doppler imaging and spectral analysis was performed of the mesenteric vessels and aorta. FINDINGS: Visualized aorta is normal in caliber. Aortic peak systolic velocity proximal to the SMA is 103 cm/s and distal to the SMA 83 cm/s. Celiac artery: Inspiration supine and erect 110 and 94 cm/s Expiration supine and erect 194 and 106 cm/s SMA: Peak systolic velocity proximally and midportion 308 and 152 cm/s. There is increased end-diastolic velocity in the proximal SMA measuring 80 cm/s. No visible narrowing seen. Distal SMA not visualized. TERESA peak systolic velocity 48 cm/s Splenic artery peak systolic velocity 100 cm/s Hepatic artery peak systolic velocity 146 cm/s US/US SMA IMPRESSION: Elevated proximal SMA peak systolic and end diastolic velocities. No visible narrowing. Consider further evaluation with CTA. Electronically signed by: Karie Jaimes MD 01/29/2025 02:49 PM EST
== END 2025-01-29 10:24 | disposition home or self-care (01) ==
LOC: HO.US 10:23
PROVIDERS: Visit Provider Internal Medicine Gastroenterology
DX: R10.13 Epigastric pain (principal)
CPT/HCPCS: 93976

== ENCOUNTER → 2025-01-29 10:25 | Outpatient (BNV) | payer MEDICARE, MEDICAID, SELFPAY | PROVIDERS: Visit Provider Radiology Diagnostic Radiology | DX: R10.13 Epigastric pain (principal) | CPT/HCPCS: 93976 ==

== ENCOUNTER 2025-01-31 13:56 | Outpatient (REF) | payer MEDICARE, MEDICAID, SELFPAY ==
[2025-01-31 17:07] LABS: Appearance Urine Clear; Glucose Urine UA Negative (Negative); PH 5.5 (5.0-9.0); Specific Gravity - Urine 1.010 (1.005-1.025); UMIC TRIGGER UA YES
--- OUTSIDE RECORDS SUMMARY | 2025-01-31 21:00 | XMS_ITS | Clinical Summary ---
Author Organization [facility] Address [address] [place] [address] Phone Care Team Providers Care Cottrell Blower Name Role Phone Lisseth Nassar MAGAZINE PUBLISHER Primary Care Provider [phone] Allergies Active Allergy Reactions Criticality Noted Date Comments Divalproex Palpitations High 08/16/2024 Fentanyl Fainting,Other,Anaph y laxis High 02/09/2022 Haloperidol Anxiety Low 02/15/2022 Other Reaction(s): Feeling Irritable Morphine Low 08/12/2020 Redness around the site Nsaids (Non-Steroidal Anti-Inflammatory Drug) Other 09/08/2020 GI bleeding Sertraline Other 09/08/2020 Other Reaction(s): QT wave change interferes withQT waves of heart changed my 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 warfare Sulfa (Sulfonamide Antibiotics) Rash Low 09/08/2020 Sulfamethoxazole-Tri [...] Chronic abdominal pain 06/24/2024 Acute renal failure ([facility] V24) 03/17/2024 Acute kidney injury ([facility] V24) 03/17/2024 NSTEMI (non-ST elevated myoc ardial infarction) ([facility] V24, [facility] V28) 11/23/2023 Hypertensive disorder 10/26/2018 Overview (07/05/2024): Status: 'A'; Low back pain 03/05/2016 Overview (07/05/2024): Problem Code: M54.5; Problem Code Type: ICD-10; Status: 'A'; Resolved Problems Problem Noted Date Diagnosed Date Resolved Date Intussusception ([facility] V24, [facility] V28) 07/03/2024 07/16/2024 Generalized abdominal pain 06/25/2024 0 06/28/2024 Encounters Date Type Department Care Team Description 11/12/2024 8:06 AM EDT - 11/12/2024 2:14 PM EDT Emergency [facility] [address] [place] [id number] Indra Beach MD Generalized abdominal pain (Primary Dx) Discharge Disposition: Home or Self Care 11/07/2024 11:30 AM EDT Office Visit Plastic & Reconstructive Surgery [facility] [address] [place] [phone] Tomas Edmond DO Abdominal pannus (Primary Dx); Intertrigo; Chronic abdominal pain; Skin laxity; Excessive and redundant skin and subcutaneous tissue from Last 3 Months Surgical History Surgery Date Site/Laterality Comments BREAST REDUCTION PROCEDURE: [place] BREAST REDUCTION LAPAROSCOPIC GASTRIC BANDING PROCEDURE: LAP [...] Opioid type dependence, cont inuous (CMS/HCC V24, [facility] V28) Chronic abdominal pain Non-ischemic cardiomyopathy ([facility] V24, [facility] V28) Irritable bowel syndrome GERD (gastroesophageal reflux disease) Low serum cortisol level Interstitial cystitis [place] (myocardial infarction) ([facility] V24, [facility] V28) GI bleed Family History Medical [...] this topic Medical Devices Implanted Type Area Pump Erector Device Identifier Shelf Expiration Date Model / [...] GEMUSE QTc 475 ms GEMUSE P Wave Pinon -6 degrees GEMUSE R Pinon 45 degrees GEMUSE T Pinon 40 degrees GEMUSE ECG Interpretation Normal sinus [...] Signed Date: 11/12/2024 10:26 ET Workstation ID: [id number] Transcribed By: Self Edit Transcribed Date: 11/12/2024 [...] Signed Date: 11/12/2024 10:26 ET Workstation ID: [id number] Transcribed By: Self Edit Transcribed Date: 11/12/2024 10:16 ET Rosangela DELATORRE IMG CT PROCEDURES Final Resu lt * Urinalysis with reflex microscopic and culture (11/12/2024 9:31 AM EDT) Specific [place] Urine 1.012 1.003 - 1.030 LAB URINALYSIS - AUTOMATED METHOD 11/12/2024 9:56 AM [facility] pH, Urine 8.0 5.0 - 8.0 pH LAB URINALYSIS - AUTOMATED METHOD 11/12/2024 9:56 AM [facility] Leukocytes, Urine Negative Negative LAB URINALYSIS - AUTOMATED METHOD 11/12/2024 9:56 AM [facility] Nitrite, Urine Negative Negative LAB URINALYSIS - AUTOMATED METHOD 11/12/2024 9:56 AM [facility] Protein, Urine Trace <=Trace mg/dL LAB URINALYSIS - AUTOMATED METHOD 11/12/2024 9:56 AM [facility] Glucose, Urine Negative Negative mg/dL LAB URINALYSIS - AUTOMATED METHOD 11/12/2024 9:56 AM [facility] Ketones, Urine Negative Negative mg/dL LAB URINALYSIS - AUTOMATED METHOD 11/12/2024 9:56 AM [facility] Urobilinogen, Urine 0.2 0.2 - 1.0 mg/dL LAB URINALYSIS - AUTOMATED METHOD 11/12/2024 9:56 AM [facility] Bilirubin, Urine Negative Negative LAB URINALYSIS - AUTOMATED METHOD 11/12/2024 9:56 AM [facility] Blood, Urine Negative Negative LAB URINALYSIS - AUTOMATED METHOD 11/12/2024 9:56 AM [facility] Urine Urine specimen obtained by clean catch procedure / Unknown Non-blood Collection / Unknown 11/12/2024 9:31 AM EDT 11/12/2024 9:51 AM EDT Rosangela DELATORRE LAB URINE ORDERABLES Final R esult Performing Organization Address [facility]/ZIP Co de Phone Number [facility] [address] [place] [address], [place] [phone] * Mccoy urine culture tube (11/12/2024 9:31 AM EDT) [facility] Extra Tube Hold for add-ons. 11/12/2024 11:01 AM EDT [facility] Comment:Auto resulted. Urine Urine specimen obtained by clean catch procedure / Unknown Non-blood Collection / Unknown 11/12/2024 9:31 AM EDT 11/12/2024 9:51 AM EDT us Rosangela DELATORRE LAB URINE ORDERABLES Final R esult Performing Organization Address [facility] Co de Phone Number [facility] [address] [place] [address], [place] [phone] * Lactate, with reflex (11/12/2024 8:42 AM EDT) [facility] LACTIC ACID 1.7 0.4 - 2.0 mmol/L LAB CHEMISTRY METHOD 11/12/2024 9:21 AM EDT [facility] Blood Venous blood specimen / Unknown Venipuncture / Unknown 11/12/2024 8:42 AM EDT 11/12/2024 8:57 AM EDT Rosangela DELATORRE LAB BLOOD ORDERABLES Final R esult Performing Organization Address [facility] Co de Phone Number [facility] [address] [place] [address], [place] [phone] * Troponin I high sensitivity (11/12/2024 8:42 AM EDT) High Sensitivity Troponin I <3 <=54 ng/L LAB CHEMISTRY METHOD 11/12/2024 9:21 AM EDT [facility] Blood Venous blood specimen / Unknown Venipuncture / Unknown 11/12/2024 8:42 AM EDT 11/12/2024 8:57 AM EDT Narrative [facility] - 11/12/2024 9:21 AM EDT High levels of biotin in samples may falsely decrease hsTroponin values. Use caution when interpreting hsTroponin results in patients taking biotin who exhibit renal impairment (eGFR <60) or in patients taking more than 20 mg/day of biotin. Rosangela DELATORRE LAB BLOOD ORDERABLES Final R esult [facility] [address] [place] [address], * (ABNORMAL) CBC auto differential (11/12/2024 8:42 AM EDT) Pathologist [facility] WBC 7.9 4.8 - 10.8 K/mcL LAB HEMETOLOGY METHOD [facility]24 [facility] RBC 5.00(H) 3.80 - 4.80 M/mcL LAB HEMETOLOGY METHOD 11/12/2024 9:[facility] Hemoglobin 14.5 11.5 - 16.0 g/dL LAB HEMETOLOGY METHOD 11/12/2024 9:[facility] Hematocrit 42.2 35.0 - 47.0 % LAB HEMETOLOGY METHOD 11/12/2024 9:19 [facility] MCV 85.3 79.0 - 98.0 FL LAB HEMETOLOGY METHOD 11/12/2024 9:19 AM [facility] MCH 29.3 27.0 - 32.0 pcg LAB HEMETOLOGY METHOD 11/12/2024 9:19 AM [facility] MCHC 34.4 32.0 - 37.0 g/dL LAB HEMETOLOGY METHOD 11/12/2024 9:19 AM [facility] RDW 15.4(H) 11.0 - 15.0 % LAB HEMETOLOGY METHOD 11/12/2024 9:19 AM [facility] Platelets 218 130 - 400 K/mcL LAB HEMETOLOGY METHOD 11/12/2024 9:19 AM [facility] MPV 10.5 7.0 - 11.0 FL LAB HEMETOLOGY METHOD 11/12/2024 9:19 AM [facility] NRBC 0.0 <1.0 % LAB HEMETOLOGY METHOD 11/12/2024 9:19 AM [facility] NRBC Absolute 0.00 <0.10 K/mcL LAB HEMETOLOGY METHOD 11/12/2024 9:19 AM [facility] Neutrophils Relative 71.7 % LAB HEMETOLOGY METHOD 11/12/2024 9:19 AM [facility] Lymphocytes Relative 23.8 % LAB HEMETOLOGY METHOD 11/12/2024 9:19 AM [facility] Monocytes Relative 3.7 % LAB HEMETOLOGY METHOD 11/12/2024 9:19 AM [facility] Eosinophils Relative 0.4 % LAB HEMETOLOGY METHOD 11/12/2024 9:19 AM [facility] Basophils Relative 0.3 % LAB HEMETOLOGY METHOD 11/12/2024 9:19 AM [facility] Immature Granulocytes Relative 0.1 % LAB HEMETOLOGY METHOD 11/12/2024 9:19 AM [facility] Neutrophils Absolute 5.63 1.50 - 7.00 K/mcL LAB HEMETOLOGY METHOD 11/12/2024 9:19 AM EDT [facility] Lymphocytes Absolute 1.87 1.00 - 5.00 K/mcL LAB HEMETOLOGY METHOD 11/12/2024 9:19 AM EDT [facility] Monocytes Absolute 0.29 0.20 - 1.00 K/mcL LAB HEMETOLOGY METHOD 11/12/2024 9:19 AM EDT [facility] Eosinophils Absolute 0.03 0.00 - 0.50 K/[facility] LAB HEMETOLOGY METHOD 11/12/2024 9:19 AM EDT [facility] Basophils Absolute 0.02 0.00 - 0.20 K/[facility] LAB HEMETOLOGY METHOD 11/12/2024 9:19 AM EDT [facility] Immature Granulocytes Absolute 0.01 0.00 - 0.03 K/mcL LAB HEMETOLOGY METHOD 11/12/2024 9:19 AM EDT [facility] Blood Venous blood specimen / Unknown Venipuncture / Unknown 11/12/2024 8:42 AM EDT 11/12/2024 8:57 AM EDT us Indra Beach MD LAB BLOOD ORDERABLES Final Resul t [facility] [address] [place] [address], * hCG, serum, qualitative (11/12/2024 8:42 AM EDT) hCG Qual Negative Negative 11/12/2024 10:38 AM EDT [facility] Blood Venous blood specimen / Unknown Venipuncture / Unknown 11/12/2024 8:42 AM EDT 11/12/2024 8:57 AM EDT us Indra Beach MD LAB BLOOD ORDERABLES Final Resul t [facility] [address] [place] [address], [place] [phone] * Lipase (11/12/2024 8:42 AM EDT) [facility] Lipase 31 13 - 75 unit/L LAB CHEMISTRY METHOD 11/12/2024 9:25 AM T [facility] Blood Venous blood specimen / Unknown Venipuncture / Unknown 11/12/2024 8:42 AM EDT 11/12/2024 8:57 AM EDT us Indra Beach MD LAB BLOOD ORDERABLES Final Resul t [facility] [address] [place] [address], [place] [phone] * (ABNORMAL) Comprehensive metabolic panel (11/12/2024 8:42 AM EDT) [facility] Sodium 136 133 - 145 mmol/L LAB CHEMISTRY METHOD 11/12/2024 9:25 AM [facility] Potassium 3.6 3.5 - 5.5 mmol/L LAB CHEMISTRY METHOD 11/12/2024 9:25 AM [facility] Comment:Hemolysis present Chloride 104 96 - 110 mmol/L LAB CHEMISTRY METHOD 11/12/2024 9:25 AM [facility] CO2 25 21 - 32 mmol/L LAB CHEMISTRY METHOD 11/12/2024 9:25 AM [facility] Anion Gap 7 3 - 11 LAB CHEMISTRY METHOD 11/12/2024 9:25 AM [facility] Glucose 128(H) 70 - 100 mg/dL LAB CHEMISTRY METHOD 11/12/2024 9:25 AM [facility] BUN 7 5 - 25 mg/dL LAB CHEMISTRY METHOD 11/12/2024 9:25 AM [facility] Creatinine 0.76 0.50 - 1.10 mg/dL LAB CHEMISTRY METHOD 11/12/2024 9:25 AM [facility] eGFR 97 >=60 mL/min/1. 73m2 LAB CHEMISTRY METHOD 11/12/2024 9:25 AM [facility] Comment:Calculation based on the Chronic Kidney Disease Epidemiology Collaboration (CKD-EPI) equation refit without adjustment for race. BUN/Creatinine Ratio 9.2 LAB CHEMISTRY METHOD 11/12/2024 9:25 AM [facility] Calcium 9.5 8.5 - 10.5 mg/dL LAB CHEMISTRY METHOD 11/12/2024 9:25 AM [facility] AST (SGOT) 27 10 - 42 unit/L LAB CHEMISTRY METHOD 11/12/2024 9:25 AM [facility] Comment:Hemolysis present ALT (SGPT) 27 10 - 60 unit/L LAB CHEMISTRY METHOD 11/12/2024 9:25 AM [facility] Alkaline Phosphatase 108 42 - 121 unit/L LAB CHEMISTRY METHOD 11/12/2024 9:25 AM [facility] Total Protein 9.1(H) 6.0 - 8.0 g/dL LAB CHEMISTRY METHOD 11/12/2024 9:25 AM [facility] Albumin 4.8 3.2 - 5.0 g/dL LAB CHEMISTRY METHOD 11/12/2024 9:25 AM [facility] Total Bilirubin 0.5 0.0 - 1.4 mg/dL LAB CHEMISTRY METHOD 11/12/2024 9:25 AM [facility] Blood Venous blood specimen / Unknown Venipuncture / Unknown 11/12/2024 8:42 AM EDT 11/12/2024 8:57 AM EDT us Indra Beach MD LAB BLOOD ORDERABLES Final Resul t [facility] [address] [place] [address], [place] [phone] from Last 3 Months Insurance MEDICARE [place] - [place] Advance Directives * Full Code - Default [...] currently active code status orders. Care Teams Cottrell Blower Relationship Specialty Start Date End Date Lisseth Nassar NP [address] [facility] [place] [address] PCP - General 07/07/21
== END 2025-01-31 13:57 | disposition home or self-care (01) ==
LOC: HO.LNP 13:56
PROVIDERS: PCP Pediatrics; Visit Provider Urology
DX: N30.10 Interstitial cystitis (chronic) without hematuria (principal)
CPT/HCPCS: 81001; 87086

== ENCOUNTER 2025-02-01 20:29 | Emergency (ER) | payer MEDICARE, MEDICAID, SELFPAY ==
--- NOTE | 2025-02-01 | ECG_ITS ---
Test Reason : FALL Blood Pressure : */* mmHG Vent. Rate : 72 BPM Atrial Rate : 72 BPM P-R Int : 196 ms QRS Dur : 78 ms QT Int : 412 ms P-R-T Axes : 67 35 53 degrees QTcB Int : 451 ms Normal sinus rhythm Normal ECG When compared with ECG of 07-Jan-2025 13:14, Nonspecific T wave abnormality no longer evident in Lateral leads Referred By: Generic ED Physician Electronically Signed By: CONSUELO ANGULO
--- NOTE | ~2025-02-01 | XR_ITS ---
CLINICAL HISTORY: L hip pain and tender 3 view, pelvis and left hip Comparison: None provided Findings: No acute fracture. No dislocation. Mild degenerative changes of bilateral hips. The soft tissues are unremarkable. IMPRESSION: No acute findings. This document has been electronically signed by: Vaishali Torres MD on 02/02/2025 00:02:54
--- NOTE | ~2025-02-01 | XR_ITS ---
CLINICAL HISTORY: fall, pain L knee prior TKA 4 view left knee Comparison: None provided Findings: No acute fracture. No dislocation. Previous knee arthroplasty. Prosthesis is intact. No radiographic evidence of prosthesis loosening. No significant joint effusion. IMPRESSION: 1. No acute findings. This document has been electronically signed by: Vaishali Torres MD on 02/02/2025 00:07:50
[2025-02-01 20:38] VITALS: BP 138/96; PULSE 80; RESP 18; TEMP 36.8; O2SAT 99; BMI 20.9
--- NOTE | 2025-02-01 20:48 | PC.NURSE ---
pt noted to have IV on arrival, IV removed by this rn and Jig Borer Ana mayen
--- OUTSIDE RECORDS SUMMARY | 2025-02-01 20:59 | XMS_ITS | Encounter Summary ---
Author Organization [facility] Address [address] [place] [address] Phone Care Team Providers Care Mold Laminator Name Role Phone Romeo Jacobson MD Primary Care Provid er Lisseth Nassar SCIENCE JOB TITLES Unavailable [phone] Encounter Details Date Type Department Care Team (Late st Contact Info) Description 10/15/2020 [facility] [address], [address] [place] [address] Angelika Byrne, PORCELAIN ENAMELING SUPERVISOR [address] [facility] [address] [place] [address] [email or web address] Social History Tobacco Use Types Packs/Day Years [...] on filedocumented in this encounter Care Teams Mold Laminator Relationship Specialty Start Date End Date Romeo Jacobson MD [address] [place] [address] PCP - General Internal Medicine 09/04/20 Lisseth Nassar NP [address] [place] [address] [email or web address] Nurse Practitioner Family Medicine 09/04/20 documented as of this encounter Additional Source Comments The information contained in this document represents components of the legal health record. It is not the complete legal health record.[facility]
--- OUTSIDE RECORDS SUMMARY | 2025-02-01 20:59 | XMS_ITS | Clinical Summary ---
Author Organization [facility] Address [address] [place] [address] Care Team Providers Care Administrative Intern Name Role Phone Unavailable Primary Care Provider [...]
--- OUTSIDE RECORDS SUMMARY | 2025-02-01 20:59 | XMS_ITS | Clinical Summary ---
Author Organization [facility] Address [address] [address] Phone Care Team Providers Care Gas Pump Attendant Name Role Phone Romeo Jacobson MD Primary Care Provid er Lisseth Nassar NEURODIAGNOSTIC TECHNICIAN Unavailable [phone] Allergies Active Allergy Reactions Criticality Noted Date Comments Fentanyl Other (See Comments) 02/09/2022 Haloperidol Feeling Irritable Low 02/18/2022 Morphine Low 09/08/2020 Redness around the site Nsaids (Non-Steroidal Anti-Inflammatory Drug) Other (See Comments) 09/08/2020 GI bleeding Sertraline Other (See Comments) 09/08/2020 interferes withQT waves of heart changed my QT interval has a laster hand Sulfa (Sulfonamide Antibiotics) Rash Low 02/09/2022 Sulfamethoxazole-Trimet [...] 1 TO 3 TS PO HS PRF RECYCLABLE MATERIALS SORTER Active scopolamine (TRANSDERM-SCOP) 1 mg over 3 [...] topic Medical Devices Not on file [place] [address] [address] MEDICARE PART A & [address] [place], [place] [address]HEALTH MEDICARE PART A & B [address] [place] [address]ALTH MEDICARE PART A & [address] [place] [address]HEALTH MEDICARE PART A & [facility]IC[facility] PART [facility] & B [facility] MEDIC[facility] PART A & B [facility] MEDICARE PART A & B Care Teams Gas Pump Attendant Relationship Specialty Start Date End Date Romeo Jacobson MD [address] [place] [address] PCP - General Internal Medicine 09/04/20 Lisseth Nassar NP [address] [place] [address] [email or web address] Nurse Practitioner Family Medicine 09/04/20 Additional Source Comments The information contained in this document represents components of the legal health record. It is not the complete legal health record.[facility]
--- OUTSIDE RECORDS SUMMARY | 2025-02-01 20:59 | XMS_ITS | Clinical Summary ---
Author Organization [facility] Address [address] [place] [address] Phone Care Team Providers Care Drafter Apprentice Name Role Phone Lisseth Nassar GRAIN MANAGER Primary Care Provider [phone] Allergies Active Allergy Reactions Criticality Noted Date Comments Divalproex Palpitations High 08/16/2024 Fentanyl Fainting,Other,Anaph y laxis High 02/09/2022 Haloperidol Anxiety Low 02/15/2022 Other Reaction(s): Feeling Irritable Morphine Low 08/12/2020 Redness around the site Nsaids (Non-Steroidal Anti-Inflammatory Drug) Other 09/08/2020 GI bleeding Sertraline Other 09/08/2020 Other Reaction(s): QT wave change interferes withQT waves of heart changed my QT interval has a occupational medicine specialist changed my QT interval has a occupational medicine specialist Sulfa (Sulfonamide Antibiotics) Rash Low 09/08/2020 Sulfamethoxazole-Tri [...] Chronic abdominal pain 06/24/2024 Acute renal failure ([facility] V24) 03/17/2024 Acute kidney injury ([facility] V24) 03/17/2024 NSTEMI (non-ST elevated myoc ardial infarction) ([facility] V24, [facility] V28) 11/23/2023 Hypertensive disorder 10/26/2018 Overview (07/05/2024): Status: 'A'; Low back pain 03/05/2016 Overview (07/05/2024): Problem Code: M54.5; Problem Code Type: ICD-10; Status: 'A'; Resolved Problems Problem Noted Date Diagnosed Date Resolved Date Intussusception ([facility] V24, [facility] V28) 07/03/2024 07/16/2024 Generalized abdominal pain 06/25/2024 0 06/28/2024 Encounters Date Type Department Care Team Description 11/12/2024 8:06 AM EDT - 11/12/2024 2:14 PM EDT Emergency [facility] Emergency [address] [place] [id number] Indra Beach MD Generalized abdominal pain (Primary Dx) Discharge Disposition: Home or Self Care 11/07/2024 11:30 AM EDT Office Visit Plastic & Reconstructive Surgery [facility] [address] [place] [id number] Tomas Edmond DO Abdominal pannus (Primary Dx); Intertrigo; Chronic abdominal pain; Skin laxity; Excessive and redundant skin and subcutaneous tissue from Last 3 Months Surgical History Surgery Date Site/Laterality Comments BREAST REDUCTION PROCEDURE: IA BREAST REDUCTION LAPAROSCOPIC GASTRIC BANDING PROCEDURE: LAP ADJUSTABLE GASTRIC BAND SLEEVE GASTROPLASTY 03/14/2015 - 03/13/2016 Converted from lap band GASTRIC BYPASS 01/29/2022 Conversion of sleeve gastrectomy to [id number] gastric bypass HIATAL HERNIA REPAIR 06/05/2021 SECTION, LOW TRANSVERSE x5 TOTAL KNEE ARTHROPLASTY Left HYSTERECTOMY PARTIAL HYSTERECTOMY Medical History Medical History Date Comments HTN (hypertension) DX:HTN (hyper tension) Anxiety DX:Anxiety Depression DX:Depression Opioid type dependence, cont inuous (CMS/HCC V24, [facility] V28) Chronic abdominal pain Non-ischemic cardiomyopathy ([facility] V24, [facility] V28) Irritable bowel syndrome GERD (gastroesophageal reflux disease) Low serum cortisol level Interstitial cystitis [place] (myocardial infarction) ([facility] V24, [facility] V28) GI bleed Family History Medical History [...] this topic Medical Devices Implanted Type Area Equine Dentist Device Identifier Shelf Expiration Date Model / [...] GEMUSE QTc 475 ms GEMUSE P Wave Buena -6 degrees GEMUSE R Buena 45 degrees GEMUSE T Buena 40 degrees GEMUSE ECG Interpretation Normal sinus [...] Signed Date: 11/12/2024 10:26 ET Workstation ID: [id number] Transcribed By: Self Edit Transcribed Date: 11/12/2024 [...] Signed Date: 11/12/2024 10:26 ET Workstation ID: [id number] Transcribed By: Self Edit Transcribed Date: 11/12/2024 10:16 ET Rosangela DELATORRE IMG CT PROCEDURES Final Resu lt * Urinalysis with reflex microscopic and culture (11/12/2024 9:31 AM EDT) Specific [place] Urine 1.012 1.003 - 1.030 LAB URINALYSIS - AUTOMATED METHOD 11/12/2024 9:56 AM [facility] pH, Urine 8.0 5.0 - 8.0 pH LAB URINALYSIS - AUTOMATED METHOD 11/12/2024 9:56 AM [facility] Leukocytes, Urine Negative Negative LAB URINALYSIS - AUTOMATED METHOD 11/12/2024 9:56 AM [facility] Nitrite, Urine Negative Negative LAB URINALYSIS - AUTOMATED METHOD 11/12/2024 9:56 AM [facility] Protein, Urine Trace <=Trace mg/dL LAB URINALYSIS - AUTOMATED METHOD 11/12/2024 9:56 AM [facility] Glucose, Urine Negative Negative mg/dL LAB URINALYSIS - AUTOMATED METHOD 11/12/2024 9:56 AM [facility] Ketones, Urine Negative Negative mg/dL LAB URINALYSIS - AUTOMATED METHOD 11/12/2024 9:56 AM [facility] Urobilinogen, Urine 0.2 0.2 - 1.0 mg/dL LAB URINALYSIS - AUTOMATED METHOD 11/12/2024 9:56 AM [facility] Bilirubin, Urine Negative Negative LAB URINALYSIS - AUTOMATED METHOD 11/12/2024 9:56 AM [facility] Blood, Urine Negative Negative LAB URINALYSIS - AUTOMATED METHOD 11/12/2024 9:56 AM [facility] Urine Urine specimen obtained by clean catch procedure / Unknown Non-blood Collection / Unknown 11/12/2024 9:31 AM EDT 11/12/2024 9:51 AM EDT Rosangela DELATORRE LAB URINE ORDERABLES Final R esult Performing Organization Address [facility]/ZIP Co de Phone Number [facility] [address] [place] [address], [place] [phone] * Mccoy urine culture tube (11/12/2024 9:31 AM EDT) [facility] Extra Tube Hold for add-ons. 11/12/2024 11:01 AM EDT [facility] Comment:Auto resulted. Urine Urine specimen obtained by clean catch procedure / Unknown Non-blood Collection / Unknown 11/12/2024 9:31 AM EDT 11/12/2024 9:51 AM EDT us Rosangela DELATORRE LAB URINE ORDERABLES Final R esult Performing Organization Address [facility] [[email or web address]] Co de Phone Number [facility] [address] [place] [address], [place] [phone] * Lactate, with reflex (11/12/2024 8:42 AM EDT) [facility] LACTIC ACID 1.7 0.4 - 2.0 mmol/L LAB CHEMISTRY METHOD 11/12/2024 9:21 AM EDT [facility] Blood Venous blood specimen / Unknown Venipuncture / Unknown 11/12/2024 8:42 AM EDT 11/12/2024 8:57 AM EDT Rosangela DELATORRE LAB BLOOD ORDERABLES Final R esult Performing Organization Address [facility] [[email or web address]] Co de Phone Number [facility] [address] [place] [address], [place] [phone] * Troponin I high sensitivity (11/12/2024 8:42 [...] R esult [facility] [address] [place] [address], * (ABNORMAL) CBC auto differential (11/12/2024 8:42 AM EDT) Pathologist [facility] WBC 7.9 4.8 - 10.8 K/mcL LAB HEMETOLOGY METHOD [facility] RBC 5.00(H) 3.80 - 4.80 M/mcL LAB HEMETOLOGY METHOD 11/12[facility]2024 [facility] Hemoglobin 14.5 11.5 - 16.0 g/dL LAB HEMETOLOGY METHOD 11/12/2024 9[facility] Hematocrit 42.2 35.0 - 47.0 % LAB HEMETOLOGY METHOD 11/12/2024 9:[facility] MCV 85.3 79.0 - 98.0 FL LAB HEMETOLOGY METHOD 11/12/2024 9:19 AM [facility] MCH 29.3 27.0 - 32.0 pcg LAB HEMETOLOGY METHOD 11/12/2024 9:19 AM [facility] MCHC 34.4 32.0 - 37.0 g/dL LAB HEMETOLOGY METHOD 11/12/2024 9:19 AM [facility] RDW 15.4(H) 11.0 - 15.0 % LAB HEMETOLOGY METHOD 11/12/2024 9:19 AM [facility] Platelets 218 130 - 400 K/mcL LAB HEMETOLOGY METHOD 11/12/2024 9:19 AM [facility] MPV 10.5 7.0 - 11.0 FL LAB HEMETOLOGY METHOD 11/12/2024 9:19 AM [facility] NRBC 0.0 <1.0 % LAB HEMETOLOGY METHOD 11/12/2024 9:19 AM [facility] NRBC Absolute 0.00 <0.10 K/mcL LAB HEMETOLOGY METHOD 11/12/2024 9:19 AM [facility] Neutrophils Relative 71.7 % LAB HEMETOLOGY METHOD 11/12/2024 9:19 AM [facility] Lymphocytes Relative 23.8 % LAB HEMETOLOGY METHOD 11/12/2024 9:19 AM [facility] Monocytes Relative 3.7 % LAB HEMETOLOGY METHOD 11/12/2024 9:19 AM [facility] Eosinophils Relative 0.4 % LAB HEMETOLOGY METHOD 11/12/2024 9:19 AM [facility] Basophils Relative 0.3 % LAB HEMETOLOGY METHOD 11/12/2024 9:19 AM [facility] Immature Granulocytes Relative 0.1 % LAB HEMETOLOGY METHOD 11/12/2024 9:19 AM [facility] Neutrophils Absolute 5.63 1.50 - 7.00 K/mcL LAB HEMETOLOGY METHOD 11/12/2024 9:19 AM EDT [facility] Lymphocytes Absolute 1.87 1.00 - 5.00 K/mcL LAB HEMETOLOGY METHOD 11/12/2024 9:19 AM EDT [facility] Monocytes Absolute 0.29 0.20 - 1.00 K/mcL LAB HEMETOLOGY METHOD 11/12/2024 9:19 AM EDT [facility] Eosinophils Absolute 0.03 0.00 - 0.50 K/[facility] LAB HEMETOLOGY METHOD 11/12/2024 9:19 AM EDT [facility] Basophils Absolute 0.02 0.00 - 0.20 K/[facility] LAB HEMETOLOGY METHOD 11/12/2024 9:19 AM EDT [facility] Immature Granulocytes Absolute 0.01 0.00 - 0.03 K/mcL LAB HEMETOLOGY METHOD 11/12/2024 9:19 AM EDT [facility] Blood Venous blood specimen / Unknown Venipuncture / Unknown 11/12/2024 8:42 AM EDT 11/12/2024 8:57 AM EDT us Indra Beach MD LAB BLOOD ORDERABLES Final Resul t [facility] [address] [place] [address], * hCG, serum, qualitative (11/12/2024 8:42 AM EDT) hCG Qual Negative Negative 11/12/2024 10:38 AM EDT [facility] Blood Venous blood specimen / Unknown Venipuncture / Unknown 11/12/2024 8:42 AM EDT 11/12/2024 8:57 AM EDT us Indra Beach MD LAB BLOOD ORDERABLES Final Resul t [facility] [address] [place] [address], [place] [phone] * Lipase (11/12/2024 8:42 AM EDT) [facility] Lipase 31 13 - 75 unit/L LAB CHEMISTRY METHOD 11/12/2024 9:25 AM T [facility] Blood Venous blood specimen / Unknown Venipuncture / Unknown 11/12/2024 8:42 AM EDT 11/12/2024 8:57 AM EDT us Indra Beach MD LAB BLOOD ORDERABLES Final Resul t [facility] [address] [place] [address], [place] [phone] * (ABNORMAL) Comprehensive metabolic panel (11/12/2024 8:42 AM EDT) [facility] Sodium 136 133 - 145 mmol/L LAB CHEMISTRY METHOD 11/12/2024 9:25 AM [facility] Potassium 3.6 3.5 - 5.5 mmol/L LAB CHEMISTRY METHOD 11/12/2024 9:25 AM [facility] Comment:Hemolysis present Chloride 104 96 - 110 mmol/L LAB CHEMISTRY METHOD 11/12/2024 9:25 AM [facility] CO2 25 21 - 32 mmol/L LAB CHEMISTRY METHOD 11/12/2024 9:25 AM [facility] Anion Gap 7 3 - 11 LAB CHEMISTRY METHOD 11/12/2024 9:25 AM [facility] Glucose 128(H) 70 - 100 mg/dL LAB CHEMISTRY METHOD 11/12/2024 9:25 AM [facility] BUN 7 5 - 25 mg/dL LAB CHEMISTRY METHOD 11/12/2024 9:25 AM [facility] Creatinine 0.76 0.50 - 1.10 mg/dL LAB CHEMISTRY METHOD 11/12/2024 9:25 AM [facility] eGFR 97 >=60 mL/min/1. 73m2 LAB CHEMISTRY METHOD 11/12/2024 9:25 AM [facility] Comment:Calculation based on the Chronic Kidney Disease Epidemiology Collaboration (CKD-EPI) equation refit without adjustment for race. BUN/Creatinine Ratio 9.2 LAB CHEMISTRY METHOD 11/12/2024 9:25 AM [facility] Calcium 9.5 8.5 - 10.5 mg/dL LAB CHEMISTRY METHOD 11/12/2024 9:25 AM [facility] AST (SGOT) 27 10 - 42 unit/L LAB CHEMISTRY METHOD 11/12/2024 9:25 AM [facility] Comment:Hemolysis present ALT (SGPT) 27 10 - 60 unit/L LAB CHEMISTRY METHOD 11/12/2024 9:25 AM [facility] Alkaline Phosphatase 108 42 - 121 unit/L LAB CHEMISTRY METHOD 11/12/2024 9:25 AM [facility] Total Protein 9.1(H) 6.0 - 8.0 g/dL LAB CHEMISTRY METHOD 11/12/2024 9:25 AM [facility] Albumin 4.8 3.2 - 5.0 g/dL LAB CHEMISTRY METHOD 11/12/2024 9:25 AM [facility] Total Bilirubin 0.5 0.0 - 1.4 mg/dL LAB CHEMISTRY METHOD 11/12/2024 9:25 AM [facility] Blood Venous blood specimen / Unknown Venipuncture / Unknown 11/12/2024 8:42 AM EDT 11/12/2024 8:57 AM EDT us Indra Beach MD LAB BLOOD ORDERABLES Final Resul t [facility] [address] [place] [address], [place] [phone] from Last 3 Months Insurance MEDICARE MEDICAID - [place] Advance Directives * Full Code - Default [...] currently active code status orders. Care Teams Drafter Apprentice Relationship Specialty Start Date End Date Lisseth Nassar NP [address] [facility] [place] [address] PCP - General 07/07/21
--- OUTSIDE RECORDS SUMMARY | 2025-02-01 20:59 | XMS_ITS | Encounter Summary ---
Author Organization [facility] Address [address] [place] [address] Phone Care Team Providers Care Pan Tank Worker Name Role Phone Romeo Jacobson MD Primary Care Provid er Lisseth Nassar DIRECTOR UNDERWRITER SALES Unavailable Encounter Details Date Type Department Care Team (Late st Contact Info) Description 12/08/2023 Procedure Pass OR Admitting Dept - Virtual Department [address] [place] [address] Social History Tobacco Use Types Packs/Day Years [...] on filedocumented in this encounter Care Teams Pan Tank Worker Relationship Specialty Start Date End Date Romeo Jacobson MD [address] [place] [id number] PCP - General Internal Medicine 09/04/20 Lisseth Nassar NP [address] [place] [phone] [email or web address] Nurse Practitioner Family Medicine 09/04/20 documented as of this encounter Additional Source Comments The information contained in this document represents components of the legal health record. It is not the complete legal health record.[facility]
[2025-02-01 21:23] LABS: MANUAL DIFF FLAG NO
[2025-02-01 21:25] LABS: Hematocrit 31.7 % (37.0-47.0); Hemoglobin 10.9 g/dl (12.0-16.0); Imm Gran Abs Auto 0.01 X10*3/uL (0.00-0.03); Imm Gran Pct Auto 0.2 % (0.0-0.4); Lymphocytes Absolute Auto 2.3 X10*3/uL (1.2-4.9); Mean Corpuscular HGB Conc 34.4 g/dl (31.0-35.0); Mean Corpuscular Hemoglobin 29.5 pg (27.0-33.0); Mean Corpuscular Volume 85.7 fL (80.0-98.0); NRBC Abs Auto 0.000 X10*3/uL (0.0-0.012); NRBC Pct Auto 0.0 /100WBC (0.0-0.2); Platelet Count 169 X10*3/uL (160-400); Red Blood Count 3.70 X10*6/uL (4.20-5.50); White Blood Count 6.0 X10*3/uL (4.8-10.8)
[2025-02-01 21:27] LABS: Appearance Urine Clear; Glucose Urine UA Negative (Negative); PH 6.5 (5.0-9.0); Specific Gravity - Urine 1.025 (1.005-1.025); UMIC TRIGGER UACC YES
[2025-02-01 21:41] LABS: Alanine Aminotransferase 14 U/L (0-31); Albumin Level 4.3 g/dL (3.5-5.0); Alkaline Phosphatase 73 U/L (39-117); Anion Gap 10 (12-20); Aspartate Amino Transferase 17 U/L (5-31); Blood Urea Nitrogen 10 mg/dL (9-16); Calcium 8.9 mg/dL (8.4-10.2); Carbon Dioxide 28 mmol/L (22-29); Chloride 109 mmol/L (96-108); Creatinine Clr Calc Pharmacy 75.5; Estimated Glomerular Filt Rate > 60; Lipase 16 U/L (8-78); Potassium 3.5 mmol/L (3.3-5.1); Sodium 143 mmol/L (135-145); Total Protein 7.3 g/dL (6.5-8.0)
[2025-02-01 21:48] LABS: Troponin-I High Sensitivity < 2.7 ng/L (<3.5-17.0)
--- NOTE | 2025-02-01 22:00 | ED_ITS ---
HPI - Fall General Chief Complaint: Fall Stated Complaint: Knee Leg Pain/has IV in arm from [facility] Time Seen by Provider: 02/01/25 21:57 Source: old records reviewed History of Present Illness ED Provider: shari HPI Narrative: Came here from [facility] after LWBS there. Triage note from [facility] ED earlier tonight is pasted below: [age] female with multiple comorbid medical conditions including chronic abdominal pain in the setting of multiple bariatric surgical revisions at [facility]. She has a GI doctor here Dr. Patino who she follows with for weight loss poor nutrition given the gastrointestinal Surgical history. She reports few different falls over the past few days but mainly here for left knee pain she has some left hip pain. She is unable to characterize well exactly how she fell but she said she was urgently getting out of bed and fell onto the left knee and left lateral hip. She has been ambulatory. She also has chronic abdominal pain nausea and feels she is dehydrated. Requesting intravenous hydro morphine only. Tells me she vomited home oxycodone Related Data Home Medications ?Medication ?Instructions ?Recorded ?Confirmed albuterol sulfate 2.5 mg/3 mL 1 vial inhalation Q6H UT N 10/07/20 09/18/24 (0.083 %) solution for nebulization Shortness Of Breat h Or Wheezing montelukast 10 mg tablet 1 tab PO DAILY 10/07/2011/05 zolpidem 5 mg tablet 5 mg PO BEDTIME PRN Insomnia 09/25/21 09/18/24 albuterol sulfate 90 mcg/actuation 1 inh inhalation Q4 H PRN Shortness 11/26/22 09/18/24 aerosol inhaler (Ventolin HFA) Of Breath clonazepam 1 mg tablet 1 mg PO TID@0800,1600,2000 0 04/05/24 09/18/24 nortriptyline 75 mg capsule 75 mg PO BEDTIME 04/05/24 09/18/24 quetiapine 100 mg tablet 100 mg PO BEDTIME 04/05/24 0 09/18/24 estradiol 0.01% (0.1 mg/gram) 1 g vaginal MOWEFR 04/0909/18/24 vaginal cream fluocinolone 0.01 % topical cream 1 appl topical BID P RN Rash 04/09/24 09/18/24 fluoride (sodium) 1.1 % dental 1 appl PO DAILY 5 09/18/24 cream (Sodium Fluoride 5000 Plus) oxycodone 15 mg tablet 15 mg PO TID@0800,1600,2000 04/09/24 09/18/24 oxycodone myristate 18 mg capsule 54 mg PO BID@0800,20 00 04/09/24 09/18/24 sprinkle extended release 12hr(DON'T CRUSH) (Xtampza ER) scopolamine base 1 mg over 3 days 1 patch topical Q3D 04/09/24 09/18/24 transdermal patch fluticasone furoate 100 1 inh inhalation DAILY 06/0409/18/24 mcg/actuation blister powder for inhalation (Arnuity Ellipta) quetiapine 50 mg tablet 100 mg PO QAM 01/07/25 carvedilol 12.5 mg tablet 12.5 mg PO BID 01/25/25 Previous Rx's ?Medication ?Instructions ?Recorded fesoterodine 4 mg tablet,extended 4 mg PO DAILY 30 day s #30 tabs 03/05/24 release 24 hr (Toviaz) acetaminophen 325 mg tablet 650 mg (2 x 325 mg) PO Q6H PRN 06/07/24 Pain, Mild 1-3,Fever,Headache #30 tabs naloxegol 25 mg tablet (Movantik) 25 mg PO QAM #30 tab s 06/07/24 sucralfate 1 gram tablet 1 g PO BIDAC #30 tabs tamsulosin 0.4 mg capsule 0.4 mg PO BEDTIME help with 08/20/24 urinary flow #30 caps phenazopyridine 99.5 mg tablet 199 mg (2 x 99.5 mg) PO BID PRN 09/04/24 (Azo Urinary Pain Relief) pain with urination #20 tabs mesalamine 0.375 gram 1.5 g (4 x 0.375 gram) PO DA LENY 12/18/24 capsule,extended release 24 hr #360 caps dicyclomine 10 mg capsule 10 mg PO TID #60 caps omeprazole 40 mg capsule,delayed 40 mg PO DAILY #90 ca ps 01/09/25 release amlodipine 2.5 mg tablet 2.5 mg PO DAILY #90 tabs 08/05 hydromorphone 2 mg tablet 2 mg PO Q6H #3 tabs 01/21/25 (Dilaudid) vayqwf-nrqbdjzc-whwysgm(pork)12,000-38,000-60,000 2 ca p PO TID #240 caps 01/21/25 unit capsule,del rel (Creon) food supplemt, lactose-reduced 2 ea PO TID #180 ea (Ensure oral liquid) Allergies Allergy/AdvReac Type Severity Reaction Status Date / Time sertraline (From ZOLOFT) Allergy Intermediate prolonged Verified 02/01/25 20:43 QT interval Sulfa (Sulfonamide Allergy Intermediate RASH Verified 02/01/25 20:43 Antibiotics) (SULFA (SULFONAMIDE ANTIBIOTICS)) haloperidol (From Haldol) Allergy Mild unknown Verified 02/01/25 20:43 morphine (MORPHINE) Allergy Mild Rash Verified 02/01/25 20:43 NSAIDS (Non-Steroidal AdvReac Intermediate STOMACH Verified 02/01/25 20:43 Anti-Inflamma (NSAIDS UPSET (NON-STEROIDAL ANTI-INFLAMMA) fentanyl patch Allergy Severe Unresponsiv Uncoded 02/01/25 20:43 e PMFSH Past Medical History Medical History Low serum cortisol level Spinal stenosis HTN (hypertension) Multinodular goiter Decreased oral intake Takotsubo cardiomyopathy Burn injury Arthritis Low back pain Elevated cholesterol SOB (shortness of breath) Asthma Numbness Mood disorder IBS (irritable bowel syndrome) OAB (overactive bladder) Sleep apnea Hypersomnia Anxiety Surgical History Hx of gastric bypass Hx of total knee replacement Hx of knee surgery Hx of hernia repair History of cystoscopy Hx of laparoscopic gastric banding Hx of hysterectomy History of H/O gastric bypass Hx of endoscopy History of colonoscopy Family History Family History Father Hx of colon cancer, stage IV Mother Family history of high blood pressure Social History Social History Household Members: Children Household Members Other:: My son Housing: Apartment Are you a primary adult care manager to a significant other at home: No Do you presently have visiting nurse or other home services: Yes (youngest dtr is maintenance director) Alcohol intake: never Comment: previously medicated Patient Tobacco Use Status: Never used Tobacco e-Cigarette/Vaping Use: Never Used Second Hand Smoke Exposure: No Substance Use Type: Marijuana service: No Physical Exam 2 Exam: Exam: EXAM: Gen: Alert, awake, well appearing, well hydrated. Calm but intermittently yelling. Does not appear distressed. Grossly appears euvolemic and well hydrated with moist mucosal membranes Head: Atraumatic Eyes: Anicteric, Normal conjunctiva. ENT: Moist mucosa, no pallor. ? Neck: Supple. Skin: ?No observable rash or bruising on exposed or examined skin Respiratory: Breathing comfortably, No distress.Clear to auscultation bilaterally, symmetric chest expansion, No wheeze, rales, ronchi. Cardiovascular: Regular rate and rhythm. No murmurs or rub. Well perfused periphery, warm extremities. No edema. ? Abdominal: Mild diffuse tenderness Soft, no objective distension. No palpable masses or obvious organomegaly. ?No guarding, no rebound tenderness or other peritoneal findings. : No flank tenderness. Neuro: Alert. Gross movement of all extremities intact. ? Psych: Calm. Cooperative. MSK: No grossly visible deformity. Left knee mildly tender. Anterior surgical scar indicative of TKA. Limited range of motion secondary to pain no erythema bruising skin breaks. No popliteal tenderness. No objective edema and the compartments are soft of the lower extremity. Neurovascularly intact. Mild tenderness over the left lateral hip. Grossly stable pelvis to rocking. Vital signs: See flowsheet Vital Signs: Vital Signs: Last Vital Signs Temp 98.9 F 02/02/25 01:10 Pulse 73 02/02/25 01:10 Resp 16 02/02/25 01:10 BP 136/93 H 02/02/25 01:10 Pulse Ox 100 02/02/25 01:10 O2 Del Method Room Air 02/02/25 01:10 BMI result Body Mass Index 20.9 Medications Administered Discontinued Medications Generic Name Dose Route Start Last Admin Trade Name Freq PRN Reason Stop Dose Admin Hydromorphone HCl 2 mg 02/01/25 22:31 02/01/25 22:42 Hydromorphone Hcl 2 Mg/Ml Vial IM 02/01/25 22:32 2 mg ONCE ONE Administration Protocol Ondansetron HCl 4 mg 02/02/25 00:09 02/02/25 00:27 Ondansetron Odt 4 Mg Tab.Prema AN 02/02/25 00:10 4 mg ONCE ONE Administration Medical Decision Making Medical Decision Making MDM Narrative: Medical Decision Making: Acute on chronic abdominal pain in the setting of multiple previous bariatric surgeries. Falls sound like mostly happening in urgent situation she is trying to get out of bed quickly she is not grossly ataxic she has no motor deficits she has no significant headache or suggestion of intracranial injury. She is on a lot of medications and this could be polypharmacy causing some of these. Regardless I think she mainly needs an evaluation for trauma to the extremities including x- ray of the pelvis hip and left knee. The patient has been since arrival demanding intravenous hydromorphone she arrived from [facility] waiting room where she left without being seen with an IV in place this was removed by the staff here. Lab work done here which is grossly reassuring. The patient and I had a shared decision-making discussion I do not think she benefits from heavy or repeated parenteral Dilaudid dosing. I asked her if she had a pain contract with her pain management physician who recently wrote 128 tablets of long-acting oxycodone I do not feel comfortable administering repeat sequential high dose hydromorphone in this patient with high opiate analgesic demands and under the care of pain management physician. Preliminary Favored Differential Diagnosis: Knee injury, hardware disruption or mouth physician, hip fracture, bruise, mechanical falls, dehydration, chronic abdominal pain among additional considered etiologies Testing Interpreted Independently: ?See below for details Radiology or Lab testing Results Reviewed: ?See below for details Consults: ?See below for details Independent Historians/External Chart Reviews: ?See below for details Social Determinants of Health Impacting MDM/Planning: ?See below for details Lab Data 02/01/25 21:18 02/01/25 21:18 Labs: Lab Results 02/01/25 02/01/25 Range/Units 21:17 21:18 WBC 6.0 (4.8-10.8) X10*3/uL RBC 3.70 L (4.20-5.50) X10*6/uL Hgb 10.9 L (12.0-16.0) g/dl Hct 31.7 L (37.0-47.0) % MCV 85.7 (80.0-98.0) fL MCH 29.5 (27.0-33.0) pg MCHC 34.4 (31.0-35.0) g/dl RDW 13.9 (11.0-16.0) % Plt Count 169 (160-400) X10*3/uL MPV 10.0 (9.4-12.3) fL Immature Gran % (Auto) 0.2 (0.0-0.4) % Neut % (Auto) 53.8 (45-73) % Lymph % (Auto) 37.6 (20-40) % [place] % (Auto) 7.7 (2-11) % Eos % (Auto) 0.2 (0-4) % Baso % (Auto) 0.5 (0-2) % Lymph # (Auto) 2.3 (1.2-4.9) X10*3/uL [place] # (Auto) 0.5 (0.1-1.2) X10*3/uL Eos # (Auto) 0.0 (0.0-0.4) X10*3/uL Baso # (Auto) 0.0 (0.0-0.2) X10*3/uL Abs Immat Gran (auto) 0.01 (0.00-0.03) X10*3/uL Absolute Neuts (auto) 3.2 (2.0-8.3) x10*3/uL Absolute Nucleated RBC 0.000 (0.0-0.012) X10*3/uL Nucleated RBC % (auto) 0.0 (0.0-0.2) /100WBC Sodium 143 (135-145) mmol/L Potassium 3.5 (3.3-5.1) mmol/L Chloride 109 H (96-108) mmol/L Carbon Dioxide 28 (22-29) mmol/L Anion Gap 10 L (12-20) BUN 10 (9-16) mg/dL Creatinine 0.82 (0.5-1.4) mg/dL Estim Creat Clear Calc 75.5 Estimated GFR > 60 Random Glucose 96 (60-115) mg/dL Calcium 8.9 (8.4-10.2) mg/dL Total Bilirubin 0.2 (0.0-1.0) mg/dL AST 17 (5-31) U/L ALT 14 (0-31) U/L Alkaline Phosphatase 73 (39-117) U/L Troponin I High Sens < 2.7 (<3.5-17.0) ng/L Total Protein 7.3 (6.5-8.0) g/dL Albumin 4.3 (3.5-5.0) g/dL Lipase 16 (8-78) U/L Urine Color Yellow Urine Appearance Clear Urine pH 6.5 (5.0-9.0) Ur Specific [place] 1.025 (1.005-1.025) Urine Protein Trace (Neg-Trace) mg/dL Urine Glucose (UA) Negative (Negative) mg/dL Urine Ketones Trace (Negative) mg/dL Urine Blood Negative (Negative) Urine Nitrite Negative (Negative) Ur Leukocyte Esterase Trace H (Negative) Urine RBC 0-2 (0-2) /HPF Urine WBC 0-5 (0-5) /HPF Ur Squamous Epith Cells 0-2 (0-2) /HPF Urine Bacteria None Seen (None Seen) Hyaline Casts 0-2 (0-2) /LPF Discharge Plan Discharge Clinical Impression: Concussion, Acute whiplash injury Patient Disposition: Home, Self-Care Instructions: Concussion (ED), Abdominal Pain (ED), Knee Pain (ED), Acute Neck Pain (ED) Additional Instructions: In the emergency department you were evaluated for a fall . You had an x-ray of your hip and knee without actionable findings or fractures. Your lab work was reassuring Please call your GI doctor pain management doctor and other physicians to coordinate direct admission or other disposition given your chronic pain weight loss and other symptoms Prescriptions: No Action tamsulosin 0.4 mg capsule 0.4 mg PO BEDTIME Qty: 30 3RF mesalamine 0.375 gram capsule,extended release 24hr 1.5 g PO DAILY Qty: 360 0RF omeprazole 40 mg capsule,delayed release(DR/EC) 40 mg PO DAILY Qty: 90 1RF amlodipine 2.5 mg tablet 2.5 mg PO DAILY Qty: 90 4RF Ensure Liquid 2 ea PO TID Qty: 180 2RF albuterol sulfate 2.5 mg /3 mL (0.083 %) solution for nebulization 1 vial inhalation Q6H PRN (Reason: Shortness Of Breath Or Wheezing) montelukast 10 mg tablet 1 tab PO DAILY Arnuity Ellipta 100 mcg/actuation blister with device 1 inh INHALATION DAILY sucralfate 1 gram Tablet 1 g PO BIDAC Qty: 30 0RF acetaminophen 325 mg Tablet 650 mg PO Q6H PRN (Reason: Pain, Mild 1-3,Fever,Headache) Qty: 30 0RF Movantik 25 mg tablet 25 mg PO QAM Qty: 30 0RF Rx Instructions: must be taken on empty stomach; no food 1 hr after or 2-3 hrs before dose Azo Urinary Pain Relief 99.5 mg tablet 199 mg PO BID PRN (Reason: pain with urination) Qty: 20 1RF Rx Instructions: Must administer with a meal and drink 6-8 oz of water with each dose fluocinolone 0.01 % cream 1 appl topical BID PRN (Reason: Rash) oxycodone 15 mg tablet 15 mg PO TID@0800,1599,1999 estradiol 0.01 % (0.1 mg/gram) cream 1 g vaginal MOWEFR scopolamine base 1 mg over 3 days patch 3 day 1 patch topical Q3D Patient Comments: 06/04/24: took off today fluoride (sodium) [Sodium Fluoride 5000 Plus] 1.1 % cream 1 appl PO DAILY Xtampza ER 18 mg cap,sprinkl,ER12hr(DONT CRUSH) 54 mg PO BID@799,1999 zolpidem 5 mg tablet 5 mg PO BEDTIME PRN (Reason: Insomnia) fesoterodine [Toviaz] 4 mg tablet extended release 24 hr 4 mg PO DAILY 30 Days Qty: 30 4RF quetiapine 100 mg tablet 100 mg PO BEDTIME nortriptyline 75 mg capsule 75 mg PO BEDTIME clonazepam 1 mg tablet 1 mg PO TID@0800,1599,1999 quetiapine 50 mg tablet 100 mg PO QAM albuterol sulfate [Ventolin HFA] 90 mcg/actuation HFA aerosol inhaler 1 inh inhalation Q4H PRN (Reason: Shortness Of Breath) dicyclomine 10 mg capsule 10 mg PO TID Qty: 60 2RF Creon 12,000-38,000 -60,000 unit capsule,delayed release(DR/EC) 2 cap PO TID Qty: 240 2RF Rx Instructions: administer with meals and/or snacks hydromorphone [Dilaudid] 2 mg tablet 2 mg PO Q6H Qty: 3 0RF Rx Instructions: Partial Fill upon patient request. carvedilol 12.5 mg tablet 12.5 mg PO BID Interventions: ED Discharge Assessment Last Done: 02/02/25 01:10 Discharge Date/Time: 02/02/25 01:13 Print Language: Irish
--- NOTE | 2025-02-01 22:12 | PC.NURSE ---
While attempting to assess this pt, pt became agitated and verbally aggressive. Pt was stating that she was not being cared for and that she would not have to wait long because she called ahead to check. Education provided to pt on wait times and order of how pts are seen. Pt continues to be argumentative and is demanding that we give her IV pain meds and [place] her GI and renal doctors immediately. aware.
--- NOTE | 2025-02-01 23:05 | PC.NURSE ---
Pt continuing to perseverate on needing IV pain meds and IV fluids. Pt educated by this RN and provider that those are not indicated for her care at this time.
--- NOTE | 2025-02-01 23:20 | PC.NURSE ---
Reassessed pt's pain level after receiving IM dilaudid, pt reports that the medication did nothing to help her pain. Pt stated, this medication did not do anything, I told you I needed IV pain medicine. MD made aware. No new orders received at this time.
[2025-02-02 00:51] VITALS: BP 136/93; PULSE 73; RESP 16; TEMP 37.2; O2SAT 100
[2025-02-02 01:10] VITALS: BP 136/93; PULSE 73; RESP 16; TEMP 37.2; O2SAT 100
--- NOTE | 2025-02-02 01:19 | PC.NURSE ---
This RN assisted pt out to [facility] via wheelchair. Pt left department with all belongings and was provided heat packs to take home. This RN assisted pt in [facility] to get a ride home. Ryann pierce confirmed and en route on final interaction with this RN.
--- NOTE | 2025-02-22 11:28 | PTCAREPLN_ITS ---
Patient Care Plan Patient Care Plan Details: [facility] EMERGENCY DEPARTMENT CARE PLAN Eboni Tatum 77 Patient presentation: Eboni has a very complicated medical history please see below. She generally presents with abdominal pain and requests IV dilaudid for her pain. She has hx of intussusception as well. She has real medical pathology and hx of UTIs. She will need labs and UA. Depending on her exam and presentation she may need advanced imaging. Patient has hx of demands and being rude to staff depending on her complaint and need for IV narcotics. PMH: Colitis, anemia, UTI, asthma, bipolar, chronic gastritis, takotsubo cardiomy opathy EF 50%, opiate induced constipation, HTN, interstitial cystitis, multiple bariatric surgeries ? slipped lap band, gastric sleeve, gastric bypass revision 2023(Alejandro Tsai) ? hx of marginal ulcer, possible secondary adrenal insufficiency though is still undergoing confirmatory testing with Dr. Head from endocrinology. Started taper off steroids in September of 2024 to undergo confirma tory testing. Chronic pain regimen: On oxycodone 15 mg every 8 hours and 54 mg every 12 hours for chronic back pain Prior admissions: Last admission here May 2024 for colitis/HTN urgency though her sigmoidoscopy was negative. Started on amlodipine and Carafate. Has visits to [facility] as well with admission for abdominal pain most recently in November of 2024. ED interventions: Appropriate work up including labs and UA, advanced imaging when indicated. Limit IV narcotic dosing. Patient?s chronic pain should not be dosed with IV dilaudid while in ED. If she has acute pain it should be managed appropriately. Given hx of marginal ulcer and bariatric surgery do not administer IV toradol. Follow up: Eboni has chronic narcotic prescriptions there is no need to send home with a prescription. She has GI ([facility]), cardiology, endocrinology, primary care, and bariatric surgery outpatient care. She can be referred to any of her outside providers if she is discharged.
== END 2025-02-02 01:13 | disposition home or self-care (01) ==
PROVIDERS: Emergency Provider Emergency Medicine; PCP Pediatrics
DX: S06.0X0A Concussion without loss of consciousness, initial encounter (principal); S13.4XXA Sprain of ligaments of cervical spine, initial encounter; M54.2 Cervicalgia; R10.22 Pelvic and perineal pain left side; M25.562 Pain in left knee; I10 Essential (primary) hypertension; R11.0 Nausea; X58.XXXA Exposure to other specified factors, initial encounter; Y93.9 Activity, unspecified; Y92.9 Unspecified place or not applicable; Y99.8 Other external cause status; Z98.84 Bariatric surgery status; Z79.899 Other long term (current) drug therapy
CPT/HCPCS: 36415; 73502; 73562; 80053; 81001; 83690; 84484; 85025; 93005; 96372; 99285; J1171

== ENCOUNTER → 2025-02-01 21:23 | Outpatient (BNV) | payer MEDICARE, MEDICAID, SELFPAY | PROVIDERS: Emergency Provider Emergency Medicine; PCP Pediatrics; Visit Provider Internal Medicine | DX: Z04.3 Encounter for examination and observation following other accident (principal) | CPT/HCPCS: 93010 ==

== ENCOUNTER → 2025-02-01 22:40 | Outpatient (BNV) | payer MEDICARE, MEDICAID, SELFPAY | PROVIDERS: Emergency Provider Emergency Medicine; PCP Pediatrics; Visit Provider Specialist | DX: M25.552 Pain in left hip (principal); M25.562 Pain in left knee; Z04.3 Encounter for examination and observation following other accident; Z96.652 Presence of left artificial knee joint | CPT/HCPCS: 73502; 73562 ==

== ENCOUNTER 2025-03-06 10:48 | Outpatient (AMB) | payer MEDICARE, MEDICAID, SELFPAY ==
--- OUTSIDE RECORDS SUMMARY | 2025-03-06 10:52 | XMS_ITS | Clinical Summary ---
Author Organization [facility] Address [address] [address] Phone Care Team Providers Care Lye Treater Name Role Phone Romeo Jacobson MD Primary Care Provid er Lisseth Nassar CUTTER OPERATOR HELPER Unavailable Allergies Active Allergy Reactions Criticality Noted Date Comments Fentanyl Other (See Comments) 02/09/2022 Haloperidol Feeling Irritable Low 02/18/2022 Morphine Low 09/08/2020 Redness around the site Nsaids (Non-Steroidal Anti-Inflammatory Drug) Other (See Comments) 09/08/2020 GI bleeding Sertraline Other (See Comments) 09/08/2020 interferes withQT waves of heart changed my QT interval 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 Sulfa (Sulfonamide Antibiotics) Rash Low 02/09/2022 Sulfamethoxazole-Trimet [...] 1 TO 3 TS PO HS PRF MICROFILM 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 Active scopolamine (TRANSDERM-SCOP) 1 mg over 3 [...] topic Medical Devices Not on file [place] [address] [place] [address] MEDICARE PART A & [address] [place], [place] [address]HEALTH MEDICARE PART A & B [address] [place] [address]HEALTH MEDICARE PART A & [address] [place] [address] MEDICARE PART A & [facility] MEDIC[facility] PART A & B [facility] MEDIC[facility] PART A & B [facility] MEDICARE PART A & B Care Teams Lye Treater Relationship Specialty Start Date End Date Romeo Jacobson MD [address] [place] [address] PCP - General Internal Medicine 09/04/20 Lisseth Nassar NP [address] [place] [address] [email or web address] Nurse Practitioner Family Medicine 09/04/20 Additional Source Comments The information contained in this document represents components of the legal health record. It is not the complete legal health record.[facility]
--- OUTSIDE RECORDS SUMMARY | 2025-03-06 10:52 | XMS_ITS | Clinical Summary ---
Author Organization [facility] Address [address] [place] [address] Phone Care Team Providers Care Cytogenetics Laboratory Manager Name Role Phone Lisseth Nassar POTATO SPOTTER Primary Care Provider [phone] Allergies Active Allergy Reactions Criticality Noted Date Comments Divalproex Palpitations High 08/16/2024 Fentanyl Fainting,Other,Anaph y laxis High 02/09/2022 Haloperidol Anxiety Low 02/15/2022 Other Reaction(s): Feeling Irritable Morphine Low 08/12/2020 Redness around the site Nsaids (Non-Steroidal Anti-Inflammatory Drug) Other 09/08/2020 GI bleeding Sertraline Other 09/08/2020 Other Reaction(s): QT wave change interferes withQT waves of heart changed my QT interval has a manager credit risk changed my QT interval has a manager credit risk Sulfa (Sulfonamide Antibiotics) Rash Low 09/08/2020 Sulfamethoxazole-Tri [...] disease) DDD (degenerative disc disease), lumbar 07/06/19 Chronic abdominal pain 06/24/2024 Acute renal failure 03/17/2024 Acute kidney injury 03/17/2024 NSTEMI (non-ST elevated myocardial infarction) 0 11/23/2023 Hypertensive disorder 10/26/2018 Overview (07/05/2024): Status: 'A'; Low back pain 03/05/2016 Overview (07/05/2024): Problem Code: M54.5; Problem Code Type: ICD-10; Status: 'A'; Resolved Problems Problem Noted Date Diagnosed Date Resolved Date Intussusception 07/03/2024 07/16/2024 Generalized abdominal pain 06/25/2024 0 06/28/2024 Surgical History Surgery Date Site/Laterality Comments BREAST [...] Depression DX:Depression Opioid type dependence, cont inuous ([facility] V24, [facility] V28) Chronic abdominal pain Non-ischemic cardiomyopathy ([facility] V24, [facility] V28) Irritable bowel syndrome GERD (gastroesophageal reflux disease) Low serum cortisol level Interstitial cystitis TN (myocardial infarction) ([facility] V24, [facility] V28) GI bleed Family History [...] Orientation Straight 03/16/2024 7: 40 PM EST Last Filed Vital Signs Vital Sign Reading [...] Screening 1975 Colorectal Cancer Screening: Colonoscopy 1976 Non-Opioid Controlled Substance Agreement 1976 Hepatitis A Vaccines (1 of 2 [...] 2024 , 05/30/2023, 04/14/2022, Additional history exists Drug Screen 06/25/2025 06/25/2024 Social Influencers of Health Screening 07/15/2025 07/15/2024 [...] this topic Medical Devices Implanted Type Area Manager Multimedia Device Identifier Shelf Expiration Date Model / Serial / Lot Arthroscopy Implants Sports Med Arthroscopy Implants Sports Med Left: Knee Description:LEFT KNEE REPLAC EMENT Procedures Procedure Name Priority Date/Time Associated Diagnosis Comments COMPREHENSIVE METABOLIC PANEL STAT 11/12/2024 8:42 AM EDT DRUG ABUSE SCREEN 8A PANEL, URINE Routine 06/25/2024 11:35 AM EDT from Last 3 Months or Most Recently Relevant to Health Maintenance Results * (ABNORMAL) Comprehensive metabolic panel (11/12/2024 8:42 AM EDT) Sodium 136 133 - 145 mmol/L LAB CHEMISTRY METHOD 11/12/2024 9:25 AM EDT [facility] Potassium 3.6 3.5 - 5.5 mmol/L LAB CHEMISTRY METHOD 11/12/2024 9:25 AM EDT [facility] Comment:Hemolysis present Chloride 104 96 - 110 mmol/L LAB CHEMISTRY METHOD 11/12/2024 9:25 AM EDT [facility] CO2 25 21 - 32 mmol/L LAB CHEMISTRY METHOD 11/12/2024 9:25 AM [facility] Anion Gap 7 3 - 11 LAB CHEMISTRY METHOD 11/12/2024 9:25 AM [facility] Glucose 128(H) 70 - 100 mg/dL LAB CHEMISTRY METHOD 11/12/2024 9:25 AM [facility] BUN 7 5 - 25 mg/dL LAB CHEMISTRY METHOD 11/12/2024 9:25 AM [facility] Creatinine 0.76 0.50 - 1.10 mg/dL LAB CHEMISTRY METHOD 11/12/2024 9:25 AM [facility] eGFR 97 >=60 mL/min/1. 73m2 LAB CHEMISTRY METHOD 11/12/2024 9:25 AM [facility] Comment:Calculation based on the Chronic Kidney Disease Epidemiology Collaboration (CKD-EPI) equation refit without adjustment for race. BUN/Creatinine Ratio 9.2 LAB CHEMISTRY METHOD 11/12/2024 9:25 AM [facility] Calcium 9.5 8.5 - 10.5 mg/dL LAB CHEMISTRY METHOD 11/12/2024 9:25 AM [facility] AST (SGOT) 27 10 - 42 unit/L LAB CHEMISTRY METHOD 11/12/2024 9:25 AM [facility] Comment:Hemolysis present ALT (SGPT) 27 10 - 60 unit/L LAB CHEMISTRY METHOD 11/12/2024 9:25 AM [facility] Alkaline Phosphatase 108 42 - 121 unit/L LAB CHEMISTRY METHOD 11/12/2024 9:25 AM [facility] Total Protein 9.1(H) 6.0 - 8.0 g/dL LAB CHEMISTRY METHOD 11/12/2024 9:25 AM [facility] Albumin 4.8 3.2 - 5.0 g/dL LAB CHEMISTRY METHOD 11/12/2024 9:25 AM EDT [facility] Total Bilirubin 0.5 0.0 - 1.4 mg/dL LAB CHEMISTRY METHOD 11/12/2024 9:25 AM EDT [facility] Blood Venous blood specimen / Unknown Venipuncture / Unknown 11/12/2024 8:42 AM EDT 11/12/2024 8:57 AM EDT us Indra eBach MD LAB BLOOD ORDERABLES Final Resul t [facility] [address] [place] [address], * (ABNORMAL) Drug abuse screen 8a panel, urine (06/25/2024 11:35 AM EDT) Amphetamine Screen, Ur Negative Negative LAB CHEMISTRY METHOD 5 6:39 PM [facility] Comment:Certain OTC medicati ons containing ephedrine, phenylephrine, pseudoephedrine and phenylpropanolamine can cause false positive results. Barbiturate Screen, Ur Negative Negative LAB CHEMISTRY METHOD 5 6:39 PM [facility] Benzodiazepine Screen, Ur Negative Negative LAB CHEMISTRY METHOD 5 6:39 PM [facility] Cocaine Screen, Ur Negative Negative LAB CHEMISTRY METHOD 5 6:39 PM [facility] Opiate Screen, Ur Positive(A ) Negative LAB CHEMISTRY METHOD 5 6:39 PM [facility] Cannabinoid (THC) Screen, Ur Positive(A ) Negative LAB CHEMISTRY METHOD 5 6:39 PM [facility] Comment:Specimens from patie nts taking pantoprazole sodium (Protonix) have been shown to produce false positive results. Oxycodone Screen, Ur Positive(A ) Negative LAB CHEMISTRY METHOD 5 6:39 PM [facility] Fentanyl, Ur Negative Negative LAB CHEMISTRY METHOD 6:39 PM EDT [facility] Urine Urine specimen obtained by clean catch procedure / Unknown Non-blood Collection / Unknown 06/25/2024 11:35 AM EDT 06/25/2024 11:59 AM EDT Narrative [facility] - 06/25/2024 6:39 PM EDT Assay cutoffs: Amphetamines 1000 ng/mL Barbiturates 200 ng/mL Benzodiazepines 200 ng/mL Cocaine 300 ng/mL Fentanyl 1 ng/mL Opiates 300 ng/mL Oxycodone 100 ng/mL THC 50 ng/mL Semi-quantitative assay for screening purposes only. Unconfirmed screening result should not be used for non-medical purposes. *ALTERNATE METHOD CONFIRMATION DONE UPON REQUEST ONLY* Ana DELATORRE LAB URINE ORDERABLES Final Result [facility] [address] [place] [address], from Last 3 Months or Most Recently Relevant to Health Maintenance Insurance MEDICARE MEDICAID - [place] Advance Directives [...] currently active code status orders. Care Teams Cytogenetics Laboratory Manager Relationship Specialty Start Date End Date Lisseth Nassar NP [address] [place] [address] PCP - General 07/07/21
--- OUTSIDE RECORDS SUMMARY | 2025-03-06 10:52 | XMS_ITS | Encounter Summary ---
Author Organization [facility] Address [address] [place] [address] Phone Care Team Providers Care Beveling Machine Operator Name Role Phone Romeo Jacobson MD Primary Care Provid er Lisseth Nassar THERAPY SITE COORDINATOR Unavailable [phone] Encounter Details Date Type Department Care Team (Late st Contact Info) Description 10/15/2020 Telephone [facility] [address], [address] [place] [address] Angelika Byrne, SENIOR TRAINING SPECIALIST [address] [place] [address] [email or web address] Social History Tobacco Use Types Packs/Day Years [...] on filedocumented in this encounter Care Teams Beveling Machine Operator Relationship Specialty Start Date End Date Romeo Jacobson MD [address] [place] [address] PCP - General Internal Medicine 09/04/20 Lisseth Nassar NP [address] [place] [id number] [email or web address] Nurse Practitioner Family Medicine 09/04/20 documented as of this encounter Additional Source Comments The information contained in this document represents components of the legal health record. It is not the complete legal health record.[facility]
--- OUTSIDE RECORDS SUMMARY | 2025-03-06 10:52 | XMS_ITS | Clinical Summary ---
Author Organization [facility] Prior to 08/11/24 Address [address] [place] [address] Care Team Providers Care Scrap Metal Collector Name Role Phone Unavailable Primary Care Provider [...]
--- OUTSIDE RECORDS SUMMARY | 2025-03-06 10:52 | XMS_ITS | Data Portability ---
Author Organization [place] [facility] Address [address] [place] [address] Care Team Providers Care Core Cutter Name Role Phone [facility] Primary Care Provider Assessment Encounter Date Assessment Date Assessment LastModified by Organization Details LastModified Time 08/22/2021 08/22/2021 Proper Personal Protective Equipment (PPE), including gloves, eye protection and masks were donned and doffed appropriately and all equipment cleaned using approved technique with germicidal disposable wipes prior to and after care of this patient according to [facility] hospital's infection prevention protocols. Overview/History: 45 yo female [...] or fevers begin she will seek [facility] Not available 08/22/2021 17:51:56 10/26/2021 10/26/2021 Overview/History : 46 YO F new to provider and known to She is being seen today for ? asthma exacerbation She is c/o of sob and chest pain today mostly pleuritic she thinks however it is progressive and she eventually describes it as crushing and substernal, 10/10 pain. 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 I did [...] pt handed off -Expect called in to [facility] She cont to look worse [...] 2021 [facility], [address] [place], [address], 18:46:25 Referral None recorded. Procedures None recorded. Surgeries None recorded. Imaging XR, chest, 2 view - call // rule out rib fx [place]. lower left anterior [address] [place] [facility] [address] [place], [address], 12:52:30 Medication Orders Lidoderm 5 % topical patch 2021 [place] [id number], [address] [place], [place], [id number], 15:56:31 Patient TargetsNo targets recorded. Patient Instructions Encounter Date Encounter Id Patient Instructions Last Modified By Organization Details Last Modified Time 08/22/2021 [id number] Back Pain - Discharge Instructions Basic Information: [...] this pain, you can find demonstrations on [employer] Weight loss will help to relieve stress [...] in your condition between 8am-10pm, please [facility] at [phone] to help navigate your care. Not available 08/22/2021 15:47:10 Reason for Referral None Reported. Results Created Date Observation Date Name Description Value Unit Range Abnormal Flag Note LastModifiedBy Organization Detail LastModifiedTime 10/27/19 22 10/26/2021 rapid SARS CoV 2 Ag, QL IA, respi rator y speci men Covid-19 (ref: neg) negati ve Not Available [facility] [address] [place], [address], 10/26/2021 18:46:03 10/27/19 22 10/26/2021 rapid SARS CoV 2 Ag, QL IA, respi rator y speci men Control Visual ized/V alid Not Available [facility] [address] [place], [address], 10/26/2021 18:46:03 10/27/19 22 10/26/2021 rapid SARS CoV 2 Ag, QL IA, respi rator y speci men Location [facility], [facility], [address] [place] [address], [phone] Not Available [facility] [address] [place], [address], 10/26/2021 18:46:03 08/25/19 22 08/24/2021 XR, chest [...] KAMRON PALMA M.D. 12:39: 33 PM EDT. FAB BAG [facility] [address] [facility] [address], [place], [address], 08/24/2021 16:45:15 10/27/19 elect rocar diogr am [...] EDT. JUAN RAMON Denney [address], [place], [address], [place] [facility] 08/24/2021 16:45:15 Procedures Surgical History Date Name Laterality Status Provider Name and Address Organization Details Recorded Time ECG Interpretation - DH completed JUAN RAMON Najera [address], [place], [address], [place] [facility] 10/26/2021 18:37:54 section completed JUAN RAMON Moran [address], [place], [address], [place] [facility] 10/26/2021 17:22:43 operative procedure on knee completed JUAN RAMON Najera [address], [place], [address], [place] [facility] 10/26/2021 17:22:50 Imaging Results None recorded. Procedure Notes None recorded. Medical Equipment None Reported. Allergies Allergen ID Allergen Name Allergen Category Reaction Reaction Severity Criticality Documentation Date Start Date Code Code System Note Provider Name and Address Organization Details Recorded Time 669160 sulfadiaz ine medicatio n Not available Not available Not available 10/26/2021 47996 RxNorm Fahad iraida [place], [place] [address], [place], [address], [place] [facility] 2 16:59:38 474809 sertralin e medicatio n Not available Not available Not available 10/26/2021 65344 RxNorm Fahadweston [place], [place] [address], [place], [address], [place] [facility] 2 16:59:46 776003 Substance with sulfonami de structure and antibacte rial mechanism of action (substanc e) medicatio n Not available Not available Not available 10/26/2021 17307 8003 SNOMED Fahadweston [place], [place] [address], [place], [address], [place] [facility] 2 16:59:53 645982 fentanyl medicatio n Not available Not available Not available 10/26/2021 4337 RxNorm Fahad iraida [place], [place] [address], [place], [address], [place] [facility] 2 17:00:04 308186 Non-stero idal anti-infl ammatory agent (substanc e) medicatio n Not available Not available Not available 10/26/2021 57677 5008 SNOMED Fahadweston Terrazas PA [address], [place], [address], [place] [facility] 2 17:00:15 Medications Name Sig Start Date Stop Date Status Note LastModified by Organization Details LastModified Time quetiapine 25 mg tablet TK 1 TO 3 TS PO HS PRF [employer] TECH active Not Available Not Available No t [...] rate Heart rate Body temperature Oxygen saturation Systolic And Diastolic Provider Name and Address Organization Details Last Updated DateTime 2 16 /min 100 /min 97.3 [degF] 97 % 124/84 mm[Hg] Not [facility] 15:54:01 Date Recorded Body temperature Oxygen saturation Heart rate Respiratory rate Systolic And Diastolic Provider Name and Address Organization Details Last Updated DateTime 2 98.6 [degF] 98 % 116 /min 16 /min 144/96 mm[Hg] Not Available [facility] 2 17:34:30 Social History None recorded. Functional Status Question Answer Note LastModified by [employer] ion Details LastModified Time Do you use any illicit or recreational drugs? Yes marijuana occasionally Information not available 10/26/2021 What is your level of alcohol consumption? None Information not available 10/26/2021 Mental Status None recorded. Family History Nothing Reported. Medical History Condition Response Diabetes N Coronary Artery Disease N CHF N Parkinson's Disease N Cancer N Dementia N Stroke N Hypothyroidism N Depression N COPD N Asthma Y High Cholesterol N Rheumatoid Arthritis N Pulmonary Embolism N Hypertension Y A-fib N Osteoporosis N Kidney Disease N Gynecological HistoryNo gynecological history recorded. Obstetrics History GPAL:G 0 P 0 0 0 0 Past Encounters Encounter ID Performer Location Encounter Start Date Encounter Closed Date Diagnosis/Indication Diagnosis SNOMED-CT Code Diagnosis ICD10 Code Diagnosis IMO Codes Diagnosis Note [id number] JUAN RAMON [facility] [address] [facility] [address] 08/22/2021 15:45:20 08/26/2021 13:50:16 Rib pain 976458097 R07.81 [id number] JUAN RAMON [facility] [address] [facility] [address] 10/26/2021 16:56:17 10/27/2021 09:46:32 Chest pain 02807817 R07.9 Dyspnea 039533287 R06.00 Sinus tachycardia 995781 01 R00.0 Health Concerns Section Related Observation LastModified by Organization Detai ls LastModified Time None Recorded Concern Status LastModified by Organization Details LastModified Time None Recorded Advance Directives Directive None Recorded Payers Insurance Date Sequence Insurance Name Policy Number Policy Leo Covered Member ID Leo Member ID Guarantor Name 08/22/2021 1 [facility] (MEDICAID O) Selinea Lyme [id number] Eboni Lyme 10/21/2020 1 [facility] (MEDICAID O) Selinea Rc [id number] Eboni Rc 10/21/2020 1 *SELF PAY* Selinea Lyme [id number] Eboni Rc 10/27/2021 1 [place] [employer] Eboni A Rc [id number] Eboni Lyme 10/26/2021 2 [place] [facility] Eboni Lyme [id number] Eboni Lyme Notes Date Note Type Note Provider Name [...] trauma// JUAN RAMON Narvaez [address], [place], [address], [place] [facility] 08/22/2021 17:52:04 2 text/html 46 YO F [facility] to provider [facility] ? asthma exacerbationShe is c/o of sob and chest pain today mostly pleuritic she thinks however it is progressive and she eventually describes it as crushing and substernal, 10/10 pain. 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 I did [...] yesterday. JUAN RAMON Najera [address], [place], [address], [place] [facility] 10/26/2021 18:50:29 OBGyn Episode No OBEpisode recorded.
--- OUTSIDE RECORDS SUMMARY | 2025-03-06 10:52 | XMS_ITS | Encounter Summary ---
Author Organization [facility] Address [address] [place] [address] Phone Care Team Providers Care Meter Calibrator Name Role Phone Romeo Jacobson MD Primary Care Provid er Lisseth Nassar ENGINEERING MANAGER Unavailable [phone] Encounter Details Date Type Department Care Team (Late st Contact Info) Description 12/08/2023 Procedure Pass [place] Admitting Dept - Virtual Department [address] [place] [address] Social History Tobacco Use Types Packs/Day Years [...] on filedocumented in this encounter Care Teams Meter Calibrator Relationship Specialty Start Date End Date Romeo Jacobson MD [address] [place] [address] PCP - General Internal Medicine 09/04/20 Lisseth Nassar NP [address] [place] [address] [email or web address] Nurse Practitioner Family Medicine 09/04/20 documented as of this encounter Additional Source Comments The information contained in this document represents components of the legal health record. It is not the complete legal health record.[facility]
[2025-03-06 10:53] VITALS: BP 118/78; PULSE 77; O2SAT 98; BMI 21.6
--- NOTE | 2025-03-06 10:53 | HO.NEPHOV ---
Vital Signs 03/06/25 10:53 Height 5 ft 5 in Weight 130 lb BMI 21.6 BP 118/78 Blood Pressure Location Rt brachial Position Sitting Pulse 77 Pulse Source Pulse Oximeter Pulse Oximetry (%) 98 Oxygen Delivery Method Room Air Intake Visit Reasons: 3 mo follow up Television Parts Tester Required: No Accompanied by: Self / Same As Patient Allergies sertraline (From ZOLOFT) Allergy (Intermediate, Verified 03/06/25 10:57) prolonged QT interval Sulfa (Sulfonamide Antibiotics) (SULFA (SULFONAMIDE ANTIBIOTICS)) Allergy (Intermediate, Verified 03/06/25 10:57) RASH haloperidol (From Haldol) Allergy (Mild, Verified 03/06/25 10:57) unknown morphine (MORPHINE) Allergy (Mild, Verified 03/06/25 10:57) Rash NSAIDS (Non-Steroidal Anti-Inflamma (NSAIDS (NON-STEROIDAL ANTI-INFLAMMA) Adverse Reaction (Intermediate, Verified 03/06/25 10:57) STOMACH UPSET fentanyl patch Allergy (Severe, Uncoded 02/01/25 20:43) Unresponsive HPI Comments Details: 49 year old with history of chronic gastritis, anxiety, depression, history of lap band removal, hypertension, FLOWER, as well as interstitial cystitis who follows up closely with Urology for her cystitis, was seen in follow up for hypertension. She had normal renal functions but hsa H/O MELANY which has been resolved. She has been having BP spikes when her pain control is not optimal. She is on pain medications. She feels she needs long acting pain medications. She claims to have family history of renal dysfunction ( Mom). There was no family history of any sensorineural deafness, Alport syndrome, thin membrane disease. She is not a diabetic. 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 She denies taking excessive nonsteroidal anti-inflammatories. She has H/O intuscusseption and underwent intervention including revision of gastric surgery by Dr Allen. She also had been started on mesalamine. Her carvedilol had been increased to 12.5 mg bid and remains on Amlodipine 2.5 mg daily. She recently had GIB and was in [facility] Medical History Low serum cortisol level Spinal stenosis HTN (hypertension) Multinodular goiter Decreased oral intake Takotsubo cardiomyopathy Burn injury Arthritis Low back pain Elevated cholesterol SOB (shortness of breath) Asthma Numbness Mood disorder IBS (irritable bowel syndrome) OAB (overactive bladder) Sleep apnea Hypersomnia Anxiety Surgical History Hx of gastric bypass Hx of total knee replacement Hx of knee surgery Hx of hernia repair History of cystoscopy Hx of laparoscopic gastric banding Hx of hysterectomy History of H/O gastric bypass Hx of endoscopy History of colonoscopy Family History Father Hx of colon cancer, stage IV Mother Family history of high blood pressure Social History Household Members: Children Household Members Other:: My son Housing: Apartment Are you a primary healthcare insurance sales agent to a significant other at home: No Do you presently have visiting nurse or other home services: Yes (youngest dtr is manager labor delivery) Alcohol intake: never Comment: previously medicated Patient Tobacco Use Status: Never used Tobacco e-Cigarette/Vaping Use: Never Used Second Hand Smoke Exposure: No Substance Use Type: Marijuana service: No Review of Systems Const All systems reviewed & are unremarkable except as noted in HPI and below Physical Exam Vital Signs: Last Vital Signs Pulse 77 03/06/25 10:53 Pulse Ox 98 03/06/25 10:53 Oxygen Delivery Method Room Air 03/06/25 10:53 BMI result Body Mass Index 21.6 Const General: comfortable and no acute distress Orientation/consciousness: patient oriented x3 HEENT Head: Yes normocephalic Mouth: Normal oral and palatal mucosa present Eyes EOM: EOMs intact bilaterally Neck Neck: Yes supple Resp Auscultation: clear to auscultation bilaterally Cardio Jugular venous distension: no JVD Rate: regular rate GI Palpation (GI): Soft to palpation Auscultation: normal bowel sounds General: Yes no CVA tenderness Back/Spine/Pelvis Back: no CVA tenderness Skin General skin exam: no rashes or lesions noted Neuro General: patient oriented x3 and moves all extremities Extrem General: Yes no pedal edema Results Reviewed Nephrology Results: Hgb, (12.0-16.0) 10.9 g/dl L 02/01/25 WBC, (4.8-10.8) 6.0 X10*3/uL 02/01/25 Plt Count, (160-400) 169 X10*3/uL 02/01/25 Sodium, (135-145) 143 mmol/L 02/01/25 Potassium, (3.3-5.1) 3.5 mmol/L 02/01/25 Chloride, (96-108) 109 mmol/L H 02/01/25 Carbon Dioxide, (22-29) 28 mmol/L 02/01/25 BUN, (9-16) 10 mg/dL 02/01/25 Creatinine, (0.5-1.4) 0.82 mg/dL 02/01/25 Calcium, (8.4-10.2) 8.9 mg/dL 02/01/25 Urine Protein, (Neg-Trace) Trace mg/dL 02/01/25 Renal US 04/19/23 Assessment & Plan Assessment & Plan (1) HTN (hypertension): Code(s): I10 - Essential (primary) hypertension Category: Medical Qualifiers: Hypertension type: primary hypertension Qualified Code(s): I10 - Essential (primary) hypertension Plan Her renal functions is at baseline now. Her last renal ultrasound was normal. She has not known to have blood or protein in the urine. She is known to have interstitial cystitis for which she is closely followed up by her urologist. She avoids nonsteroidal anti-inflammatories . I asked her to C/W Carvedilol 12.5 mg bid & amlodipine 2.5 mg daily in noon time . She had an ECHO/Cardiac MRI( dxsed with stress induced cardiomyopathy). Her serum potassium is normal. I did not make any other medication changes today.I answered all questions Orders: Orders Electrolytes 3 Months I10 - Essential (primary) hypertension Blood Urea Nitrogen 3 Months I10 - Essential (primary) hypertension Creatinine 3 Months I10 - Essential (primary) hypertension Coding Level of Care Code Est Pt Level 4 (79799) Diagnoses Primary hypertension I10 Hypertension type: primary hypertension
== END 2025-03-06 11:27 | disposition home or self-care (01) ==
LOC: HO.HKAS 10:49
PROVIDERS: PCP Nurse Practitioner Family; Visit Provider Internal Medicine Nephrology
DX: I10 Essential (primary) hypertension (principal)
CPT/HCPCS: 99214

== ENCOUNTER 2025-03-06 11:28 | Emergency (ER) | payer MEDICARE, MEDICAID, SELFPAY ==
--- OUTSIDE RECORDS SUMMARY | 2025-02-28 23:59 | XMS_ITS | Continuity of Care Document ---
Author Organization [facility] Address [address] [place] [address]- Care Team Providers Care Shaper Machine Hand Name Role Phone Heather Dowell MD Primary Care Physician Encounter [facility] ACCT R [id number] Date(s): 12/26/24 - 02/28/[address] [address] Attending Physician: Mookie Amado PharmD Admitting Physician: Mookie Amado PharmD Encounter Type: Pre-OutPatient One Time Allergies, Adverse Reactions, Alerts Substance Criticality Severity Reaction Reaction Severity Status sulfADIAZINE rash Active sertraline 1 QT wave change Ac tive sulfa drugs rash Active NSAIDs She can't take NSAIDs secondary to gastric bypass Active fentanyl topical passed out Ac tive Haldol Agitation Active Bactrim rash Active 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 any albuterol inhaler covered [...] Refills, Maintenance, 05/04/24 12:32:00 PM EST, Powder, [facility] #[id number], Partial fill upon patient request if the [...] 0 Refills, Maintenance, 08/03/24 12:31:00 PM EDT, [place], [id number], Partial fill upon patient request if the [...] Dispensed: 0 Carvedilol 6.25 mg, By Mouth, 2 times a day, Refills 0, Maintenance, 08/03/24 11:51:00 AM EDT, Partial fill upon patient request if the prescription is for a schedule II opioid drug. Start Date: 08/03/24 Status: Ordered Medication Dispense Status: Completed Total Allowed Fills: 1 Fills Dispensed: 0 CBC, Basic metabolic panel CBC, Basic metabolic panel, See Instructions, # 1 each, Refills 0, Tot. Refills 0, Maintenance, Anemia D64.9 Electrolyte imbalance E87, 02/06/25 3:43:00 PM EST, Supply Start Date: 02/06/25 Status: Ordered Medication Dispense Status: Completed Quantity: 1.0 Unit: each Total Allowed Fills: 1 Fills Dispensed: 0 cetirizine 10 mg oral tablet 1 tablet = 10 mg, By Mouth, Daily, PRN allergies, # 90 tablet, 0 Refills, Maintenance, 08/03/24 12:31:00 PM EDT, Tablet, [facility] #[id number], Partial fill upon patient request if the [...] checked., # 90 tablet, 0 Refills, Maintenance, 02/13/25 8:49:00 AM EST, Tablet, [facility] #[id number], Partial fill upon patient request if the prescription is for a schedule II opioid drug. OK to fill now (early) - pt spilled tea into her bottle and pills were ruined, 166, cm, 02/10/25 3:14:00 EST, Height, 62.1, kg, 02/09/25 4:24:00 EST, Dry Weight Start Date: 02/13/25 Status: Ordered Medication Dispense Status: Completed Quantity: [...] Refills, Soft Stop, 09/13/24 1:44:00 PM EDT, Tablet,[facility] #[id number], Partial fill upon patient request if the [...] Fills Dispensed: 0 Indications: Essential (primary) hypertension; hydrOXYzine pamoate 25 mg oral capsule 0 [...] 10/22/20 9:02:00 AM EDT, Compound Start Date: 8/11/21 Status: Ordered Medication Dispense Status: Completed Quantity: [...] capsule, By Mouth, Daily at bedtime, # 90 capsule, Refills 1, Tot. Refills 1, Maintenance, 02/22/25 10:26:00 AM EST, Route to Pharmacy Electronically, [id number], Partial fill upon patient request if the prescription is for a schedule II opioid drug., 166, cm, 02/22/25 9:48:00 EST, Height, 62.1, kg, 02/09/25 4:24:00 EST, Dry Weight Start Date: 02/22/25 Stop Date: 08/21/25 Status: Ordered Medication Dispense Status: Completed Quantity: 90.0 Unit: capsule Total Allowed Fills: 2 Fills Dispensed: 0 oxyCODONE 15 mg oral tablet 1 tablet = 15 mg, By Mouth, Every 6 hours, PRN Pain , Severe, # 112 tablet, 0 Refills, Maintenance,02/12/25 10:07:00 AM EST, Tablet, [id number], Partial fill upon patient request if the prescription is for a schedule II opioid drug., 166, cm, 02/10/25 3:14:00 EST, Height, 62.1, kg,02/09/25 4:24:00 EST, Dry Weight Start Date: 02/12/25 Stop Date: 03/12/25 Status: Ordered Medication Dispense Status: Completed Quantity: 112.0 Unit: tablet Total Allowed Fills: 1 Fills Dispensed: 0 pantoprazole 40 mg oral delayed release tablet = 40 mg, By Mouth, 2 times a day, # 28 tablet, 0 Refills, Maintenance, 02/06/25 3:34:00 PM EST, [facility] Tablet, 165.1, cm, 02/06/25 10:44:00 EST, Height, 63.7, kg, 02/03/25 4:41:00 EST, Dry Weight Start Date: 02/06/25 Stop Date: 02/20/25 Status: Ordered Medication Dispense Status: Completed Quantity: 28.0 Unit: tablet Total Allowed Fills: 1 Fills [...] Total Allowed Fills: 7 Fills Dispensed: 0 QUEtiapine 100 mg oral tablet TAKE 1 TABLET BY MOUTH TWICE DAILY Start Date: 02/02/25 Status: Ordered Medication Dispense Status: Completed Total [...] 10:33:00 AM EDT, Route to Pharmacy Electronically, [facility] #[id number], 166, cm, 09/25/2509:14:00 EDT, Height, 70.8, kg, 10/13/23 13:03:00 EDT, Dry Weight Start Date: 09/25/24 Stop Date: 09/20/25 Status: Ordered Medication Dispense Status: Completed Quantity: 90.0 Unit: tablet Total Allowed Fills: 4 Fills Dispensed: 0 sucralfate 1 gm oral tablet 1 Gm, 1, tablet, By Mouth, 2 times a day, # 180 tablet, Refills 0, Maintenance, 02/02/25 11:27:00 PM EST, Partial fill upon patient request if the prescription is for a schedule II opioid drug. Start Date: 02/02/25 Status: Ordered Medication Dispense Status: Completed Quantity: [...] Spinal stenosis, site unspecified; Low back pain; Vitamin D3 50,000 intl units oral capsule 1 capsule = 1,250 mcg, By Mouth, Every week, # 12 capsule, 0 Refills, Maintenance, 02/06/25 3:35:00PM EST, Capsule, [facility], Partial fill upon patient request if the prescription isfor a schedule II opioid drug., 165.1, cm, 02/06/25 10:44:00 EST, Height, 63.7, kg, 02/03/25 4:41:00 EST, Dry Weight Start Date: 02/06/25 Status: Ordered Medication Dispense Status: Completed Quantity: 12.0 Unit: capsule Total Allowed Fills: 1 Fills Dispensed: 0 Walker See Instructions, # 1 each, Maintenance, [...] 54 mg, By Mouth, Every 12 hours, take with food; pt on CSA; may fill less; MassPat checked, # 168 capsule, 0 Refills, Maintenance, 02/12/25 10:08:00 AM EST, ER Capsule, [facility] #[id number], Partial fill upon patient request if the prescription is for a schedule II opioid drug. updated CSA on file, 166, cm, 02/10/25 3:14:00 EST, Height, 62.1, kg, 02/09/25 4:24:00 EST, Dry Weight Start Date: 02/12/25 Stop Date: 03/12/25 Status: Ordered Medication Dispense Status: Completed Quantity: 168.0 Unit: capsule Total Allowed Fills: 1 Fills [...] Adrenal insufficiency Confirmed Active Hypokalemia Confirmed Active Lactic acidosis Confirmed Active Low back pain Confirmed Active [...] orien tation: ; Straight or heterosexual Sex Female Sex Representation Female (finding) Patient Care team information Care Team Personnel Name: Artemio Contreras RN Position: [facility] RN Member Role: Primary Care Nurse Name: Siria Lopes RN Position: [facility] RN Member Role: Primary Care Nurse Name: Tristin Hunt RN Position: [facility] RN Member Role: Primary Care Nurse Name: Tad Escobar RN Position: [facility] RN Member Role: Primary Care Nurse Name: Edenilson Pcukett MD Position: [facility] HOTEL MAINTENANCE TECHNICIAN MD Member Role: Lifetime HOTEL MAINTENANCE TECHNICIAN Physician Name: Jovana Park RN Position: [facility] SN RN Member Role: Primary Care Nurse Name: Ana Maria Grady RN Position: [facility] RN Supv Member Role: Primary Care Nurse Name: Fabiana Williamson RN Position: [facility] RN Member Role: Primary Care Nurse Name: María Silverman RN Position: [facility] RN Member Role: Primary Care Nurse Name: Lina Delgado RN Position: [facility] RN Member Role: Primary Care Nurse Name: Opal Avendano RN Position: [facility] RN Member Role: Primary Care Nurse Name: Shola Chang RN Position: [facility] RN Member Role: Primary Care Nurse Name: Chidi Clark DO Position: [facility] Renal MD Member Role: Lifetime Consulting Physician Address: [address] [place], [place] [address] [place] [address]- Telecom: Name: Mireya Torres RN Position: [facility] RN Member Role: Primary Care Nurse Name: Meagan Ball RN Position: [facility] RN Member Role: Primary Care Nurse Name: Starr Harper RN Position: [facility] AMB Nurse Member Role: Primary Care Nurse Name: Tiana Vicente RN Position: [facility] RN Member Role: Primary Care Nurse Name: Tristin Hill RN Position: [facility] RN Member Role: Primary Care Nurse Name: Nisreen Tristan RN Position: [facility] RN Member Role: Primary Care Nurse Name: Kelly Maddox RN Position: [facility] RN Member Role: Primary Care Nurse Name: Mauro Salomon RN Position: [facility] RN Member Role: Primary Care Nurse Name: Heather Dowell MD Position: [facility] Physician - Primary Care Member Role: PCP Address: [address] [place] [address]- Telecom: Care Team Related Persons Name: MARYAN STYLES Name: MARYA ADRIAN Name: MORALES HOWELL Insurance Providers Guarantor name: DIANNE HOWELL Health Plan Information #: 1 Payer: MEDICARE B Payer Identifier: KRAIG Member Number: [id number] Group Number: KRAIG Subscriber Identifier: [id number] Relationship to Subscriber: self Coverage Type: NA Coverage Verification Date: NA Telecom: NA Address: KRAIG Health Plan Information #: 2 Payer: [facility] C[employer]ER [employer]ICE Payer Identifier: KRAIG Member Number: [id number] Group Number: [id number] Subscriber Identifier: [id number] Relationship to Subscriber: self Coverage Type: MEDICAID Coverage Verification Date: NA Telecom: NA Address: NA
--- OUTSIDE RECORDS SUMMARY | 2025-03-01 23:59 | XMS_ITS | Continuity of Care Document ---
Author Organization [facility] Address [address] [place] [address]- Care Team Providers Care Catalogue Librarian Name Role Phone Heather Dowell MD Primary Care Physician [phone] Encounter [facility] Date(s): 01/30/25 - 03/01/[address] [address] Encounter Type: Triage Allergies, Adverse Reactions, Alerts Substance Criticality Severity Reaction Reaction Severity Status sulfADIAZINE rash Active sertraline 1 QT wave change Ac tive sulfa drugs rash Active NSAIDs She can't take NSAIDs secondary to gastric bypass Active fentanyl topical passed out Ac tive Haldol Agitation Active Bactrim rash Active 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 any albuterol inhaler covered [...] Refills, Maintenance, 05/04/24 12:32:00 PM EST, Powder, [facility] #[id number], Partial fill upon patient request if the [...] 0 Refills, Maintenance, 08/03/24 12:31:00 PM EDT, [place], [facility] #[id number], Partial fill upon patient request if the [...] Refills, Maintenance, 08/03/24 12:31:00 PM EDT, Tablet, [facility] #[id number], Partial fill upon patient request if the [...] luo, # 90 tablet, 0 Refills, Maintenance, 02/13/25 8:49:00 AM EST, Tablet, [facility] #[id number], Partial fill upon patient request if the [...] Refills, Soft Stop, 09/13/24 1:44:00 PM EDT, Tablet,[facility] #[id number], Partial fill upon patient request if the [...] 10:26:00 AM EST, Route to Pharmacy Electronically, [facility] #[id number], Partial fill upon patient request if the [...] 0 Refills, Maintenance,02/12/25 10:07:00 AM EST, Tablet, [facility] #[id number], Partial fill upon patient request if the [...] 10:33:00 AM EDT, Route to Pharmacy Electronically, [facility] #[id number], 166, cm, 09/25/2509:14:00 EDT, Height, 70.8, kg, [...] 0 Refills, Maintenance, 02/06/25 3:35:00PM EST, Capsule, [facility], Partial fill upon patient request [...] food; pt on CSA; may fill less; Prem checked, # 168 capsule, 0 Refills, Maintenance, 02/12/25 10:08:00 AM EST, ER Capsule, [facility] #[id number], Partial fill upon patient request if the [...] Team Personnel Name: Artemio Contreras RN Position: S RN Member Role: Primary Care Nurse Name: Siria Lopes RN Position: S RN Member Role: Primary Care Nurse Name: Tristin Hunt RN Position: S RN Member Role: Primary Care Nurse Name: Tad Escobar RN Position: S RN Member Role: Primary Care Nurse Name: Edenilson Puckett MD Position: [facility] TECHNICAL MANAGER CHEMICAL PLANT MD Member Role: Lifetime TECHNICAL MANAGER CHEMICAL PLANT Physician Name: Jovana Park RN Position: [facility] SN RN Member Role: Primary Care Nurse Name: Ana Maria Grady RN Position: [facility] RN Supv Member Role: Primary Care Nurse Name: Fabiana Williamson RN Position: [facility] RN Member Role: Primary Care Nurse Name: María Silverman RN Position: [facility] RN Member Role: Primary Care Nurse Name: Lina Delgado RN Position: [facility] RN Member Role: Primary Care Nurse Name: Opal Avendano RN Position: [facility] RN Member Role: Primary Care Nurse Name: Shola Chang RN Position: [facility] RN Member Role: Primary Care Nurse Name: Chidi Clark DO Position: [facility] Renal MD Member Role: Lifetime Consulting Physician Address: [address] [place], [place] [address]E [facility] [place], [place] [address] Telecom: Name: Mireya Torres RN Position: [facility] RN Member Role: Primary Care Nurse Name: Meagan Ball RN Position: [facility] RN Member Role: Primary Care Nurse Name: Starr Harper RN Position: [facility] AMB Nurse Member Role: Primary Care Nurse Name: Tiana Vicente RN Position: [facility] RN Member Role: Primary Care Nurse Name: Tristin Hill RN Position: [facility] RN Member Role: Primary Care Nurse Name: Nisreen Tristan RN Position: [facility] RN Member Role: Primary Care Nurse Name: Kelly Maddox RN Position: [facility] RN Member Role: Primary Care Nurse Name: Mauro Salomon RN Position: [facility] RN Member Role: Primary Care Nurse Name: Heather Dowell MD Position: [facility] Physician - Primary Care Member Role: PCP Address: [address] [place] [address]- Telecom: Care Team Related Persons Name: MARYAN STYLES Name: MARYA ADRIAN Name: MORALES HOWELL Insurance Providers Guarantor name: DIANNE HOWELL [employer] Plan Information #: 1 Payer: MEDICARE B Payer Identifier: NA Member Number: [id number] Group Number: NA Subscriber Identifier: NA Relationship to Subscriber: self Coverage Type: NA Coverage Verification Date: KRAIG Telecom: NA Address: [facility] Plan Information #: 2 [facility] [employer] Payer Identifier: KRAIG Member Number: [id number] Group Number: [id number] Subscriber Identifier: KRAIG Relationship to Subscriber: self Coverage Type: MEDICAID Coverage Verification Date: KRAIG Telecom: NA Address: NA
--- OUTSIDE RECORDS SUMMARY | 2025-03-05 12:51 | XMS_ITS | Continuity of Care Document ---
Author Organization [facility] ter Address [address] [place] [id number] Care Team Providers Care Utility Tender Carding Name Role Phone Heather Dowell MD Primary Care Phys[facility] [id number] Date(s): 03/03/25 - 03/05/[address] [address] Encounter Diagnosis Dark stools(Final) - 03/02/25 Discharge Disposition: A-D/C Home Attending Physician: Rafal Rhoades DO Admitting Physician: Nicole Chavis MD Referring Physician: Not on Staff, Referring MD Encounter Type: Disch IP Allergies, Adverse Reactions, Alerts Substance Criticality Severity Reaction Reaction Severity Status sulfADIAZINE rash Active sertraline 1 QT wave change Ac tive sulfa drugs rash Active Pork Active NSAIDs She can't take NSAIDs secondary to gastric bypass Active fentanyl topical passed out Ac tive Haldol Agitation Active Bactrim rash Active 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 Functional Status Functional Status Assessment Assessment Assessment Component Result Effecti ve Date Total Falls Risk Score 1 03/03 Functional Status Assessment Assessment Assessment Component Result Effecti ve Date Geovani scale total score 21 Functional Status Assessment Assessment Assessment Component Result Effecti ve Date Total Falls Risk Score 3 03/04 Functional Status Assessment Assessment Assessment Component Result Effecti ve Date Geovani scale total score 21 Functional Status Assessment Assessment Assessment Component Result Effecti Total Falls Risk Score 4 03/04 Functional Status Assessment Assessment Assessment Component Result Effecti Geovani scale total score 22 Functional Status Assessment Assessment Assessment Component Result Effecti Total score [AUDIT] 0 03/02/25 Functional Status Assessment Assessment Assessment Component Result Effect Disability status [CUBS] I'm Vulnerable - I sometimes or periodically have acute or chronic symptoms affecting housing, employment, social interactions, etc. 03/03/25 Difficulty communica ting in usual language No 03/03/25 Because of a physica l, mental, or emotional condition, do you have difficulty doing errands alone such as visiting a physician's office or shopping No 03/03/25 Do you have difficul ty dressing or bathing No 03/03/25 Do you have serious difficulty walking or climbing stairs Yes 03/03/25 Difficulty Reading O r Writing No 03/03/25 Do you need any additional assistance or accommodations during your visit Yes 03/03/25 Are you deaf, or do you have serious difficulty hearing No 03/03/25 Because of a physica l, mental, or emotional condition, do you have serious difficulty concentrating, remembering, or making decisions No 03/03/25 Are you blind, or do you have serious difficulty seeing, even when wearing glasses No 03/03/25 Immunizations Given and Recorded Vaccine Date Status [...] 0 Refills, Maintenance, 08/03/24 12:30:00 PM EDT, [facility] #[id number], with dose counter. any albuterol inhaler covered [...] Total Allowed Fills: 1 Fills Dispensed: 0 AMLODIPINE TAB 2.5MG AMLODIPINE TAB 2.5MG, 0 Refills, Maintenance, 03/02/25 7:48:00 PM EST Start Date: 03/02/25 Status: Ordered Medication Dispense Status: Completed Total Allowed Fills: 1 Fills Dispensed: 0 Arnuity Ellipta 100 mcg inhalation powder 1 inhalation = 100 mcg, Inhalation, Every 24 hours, to replace flovent, # 1 each, 11 Refills, Maintenance, 05/04/24 12:32:00 PM EST, Powder, [id number], Partial fill upon patient request if the prescription is for a schedule II opioid drug., 166, cm, 04/23/24 15:09:00 EST, Height, 70.8, kg, 10/13/23 13:03:00 EDT, Dry Weight Start Date: 05/04/24 Status: Ordered Medication Dispense Status: Completed Quantity: 1.0 Unit: each Total Allowed Fills: 12 Fills Dispensed: 0 Bedside Commode See Instructions, # 1 each, Maintenance, please dispense bedside commode Dx M48.00, M54.5, R10.9, M17.10; length of need 99, 04/16/19 11:58:00 AM EST, Compound Start Date: 04/16/19 Status: Ordered Medication Dispense Status: Completed Quantity: 1.0 Unit: each Total Allowed Fills: 1 Fills Dispensed: 0 Carvedilol 12.5 mg, By Mouth, 2 times a day, Refills 0, Maintenance, 08/03/24 11:51:00 AM EDT, Partial fill upon patient request if the prescription is for a schedule II opioid drug. Start Date: 08/03/24 Status: Ordered Medication Dispense Status: Completed Total Allowed Fills: 1 Fills Dispensed: 0 carvedilol 12.5 mg oral tablet 12.5 mg, Tablet, By Mouth, 03/05/25 9:00:00 AM EST Start Date: 03/05/25 Stop Date: 03/05/25 Status: Completed Medication Dispense Status: Completed Total Allowed Fills: [...] Refills, Maintenance, 02/13/25 8:49:00 AM EST, Tablet, [facility] #[id number], Partial fill upon patient request if the [...] Total Allowed Fills: 3 Fills Dispensed: 0 Creon 12,000 units oral delayed release capsule 0 Refills, Maintenance, 03/02/25 7:49:00 PM EST, Partial fill upon patient request if the prescription is for a schedule II opioid drug. Start Date: 03/02/25 Status: Ordered Medication Dispense Status: Completed Total Allowed Fills: 1 Fills Dispensed: 0 Diapers See Instructions, # [...] Total Allowed Fills: 12 Fills Dispensed: 0 esomeprazole 40 mg oral enteric coated capsule 1 capsule = 40 mg, By Mouth, Daily, # 90 capsule, 0 Refills, Maintenance, 03/02/25 10:57:00 PM EST,[facility] Capsule, Partial fill upon patient request if the prescription is for a schedule II opioid drug. Start Date: 03/02/25 Status: Ordered Medication Dispense Status: Completed Quantity: 90.0 Unit: capsule Total Allowed Fills: 1 Fills Dispensed: 0 famotidine 40 mg oral tablet 1 tablet = 40 mg, By Mouth, 2 times a day, # 60 tablet, 0 Refills, Maintenance, 03/02/25 10:59:00 PM EST, Tablet, Partial fill upon patient request if the prescription is for a schedule II opioid drug. Start Date: 03/02/25 Status: Ordered Medication Dispense Status: Completed Quantity: 60.0 Unit: tablet Total Allowed Fills: 1 Fills Dispensed: 0 Fesoterodine 8 mg oral tablet, extended release TAKE 1 TABLET BY MOUTH DAILY Start Date: 08/19/23 Status: Ordered Medication Dispense Status: Completed Total Allowed Fills: 1 Fills Dispensed: 0 fluconazole 150 mg oral tablet 1 tablet = 150 mg, By Mouth, Once, # 1 tablet, 0 Refills, Soft Stop, 09/13/24 1:44:00 PM EDT, Tablet,[facility] #[id number], Partial fill upon patient request if the [...] Fills Dispensed: 0 Indications: Essential (primary) hypertension; HYDROmorphone 2 mg oral tablet 1 tablet = 2 mg, By Mouth, Every 4 hours, PRN as needed for pain, 0 Refills, Maintenance, 03/02/25 10:59:00 PM EST, Tablet, Partial fill upon patient request if the prescription is for a schedule II opioid drug. Start Date: 03/02/25 Status: Ordered Medication Dispense Status: Completed Total Allowed Fills: 1 Fills Dispensed: 0 HYDROmorphone 2 mg oral tablet TAKE 1 TABLET BY MOUTH EVERY 6 HOURS Start Date: 03/03/25 Status: Ordered Medication Dispense Status: Completed Total Allowed Fills: 1 Fills Dispensed: 0 hydrOXYzine pamoate 25 mg oral capsule 1 capsule = 25 mg, By Mouth, Daily at bedtime, 0 Refills, Maintenance, 07/09/24 12:21:00 PM EDT, [...] mesalamine 0.375 g oral capsule, extended release 4 capsule = 1.5 Gm, By Mouth, 3 times a day, 0 Refills, Maintenance, 07/09/24 12:21:00 PM EDT, [...] 10:26:00 AM EST, Route to Pharmacy Electronically, [facility] #[id number], Partial fill upon patient request if the [...] 0 Refills, Maintenance,02/12/25 10:07:00 AM EST, Tablet, [facility] #[id number], Partial fill upon patient request if the prescription is for a schedule II opioid drug., 166, cm, 02/10/25 3:14:00 EST, Height, 62.1, kg,02/09/25 4:24:00 EST, Dry Weight Start Date: 02/12/25 Stop Date: 03/12/25 Status: Ordered Medication Dispense Status: Completed Quantity: 112.0 Unit: tablet Total Allowed Fills: 1 Fills Dispensed: 0 oxyCODONE 20 mg oral tablet, extended release 40 mg, ER Tablet, By Mouth, 03/05/25 12:00:00 PM EST Start Date: 03/05/25 Stop Date: 03/05/25 Status: Completed Medication Dispense Status: Completed Total Allowed Fills: [...] 10:33:00 AM EDT, Route to Pharmacy Electronically, [facility] #[id number], 166, cm, 09/25/2509:14:00 EDT, Height, 70.8, kg, [...] Total Allowed Fills: 1 Fills Dispensed: 0 tamsulosin 0.4 mg oral capsule 0.4 mg, 1, capsule, By Mouth, Daily, # 30 capsule, Refills 0, Maintenance, 03/02/25 7:49:00 PM EST,Partial fill upon patient request if the prescription is for a schedule II opioid drug. Start Date: 03/02/25 Status: Ordered Medication Dispense Status: Completed Quantity: 30.0 Unit: capsule Total Allowed Fills: 1 Fills Dispensed: 0 Transfer Bench See Instructions, # 1 each, Maintenance, Dx M48, M54.16, M54.5, 03/20/18 1:26:26 PM EST, Compound Start Date: 03/20/18 Status: Ordered Medication Dispense Status: Completed Quantity: 1.0 Unit: each Total Allowed Fills: 1 Fills Dispensed: 0 Indications: Radiculopathy, lumbar region; Spinal stenosis, site unspecified; Low back pain; Tylenol Extra Strength 500 mg oral tablet 2 tablet = 1,000 mg, By Mouth, Every 8 hours, PRN Pain , Mild, 0 Refills, Maintenance, 03/02/25 10:56:00 PM EST, Tablet, Partial fill upon patient request if the prescription is for a schedule II opioid drug. Start Date: 03/02/25 Status: Ordered Medication Dispense Status: Completed Total Allowed Fills: 1 Fills Dispensed: 0 Vitamin D3 50,000 intl units oral capsule 1 capsule = 1,250 mcg, By Mouth, Every week, # 12 capsule, 0 Refills, Maintenance, 02/06/25 3:35:00PM EST, Capsule, [facility], Partial fill upon patient [...] Maintenance, 02/12/25 10:08:00 AM EST, ER Capsule, [facility] #[id number], Partial fill upon patient request if the prescription is for a schedule II opioid drug. updated CSA on file, 166, cm, 02/10/25 3:14:00 EST, Height, 62.1, kg, 02/09/25 4:24:00 EST, Dry Weight Start Date: 02/12/25 Stop Date: 03/12/25 Status: Ordered Medication Dispense Status: Completed Quantity: 168.0 Unit: capsule Total Allowed Fills: 1 Fills Dispensed: 0 Mental Status Mental Status Assessment Assessment Assessment Component Result Effecti ve Date [place] coma score total 15 Problem List Condition Confirmation Course Effective Dates [...] oldest [Reference Range]: 1 2 3 Height 166 cm (03/05/25 10:14 AM) 166 cm (03/05/25 7:13 AM) 166 cm (03/05/25 6:31 AM) Weight 58.4 kg (03/05/25 7:13 AM) 58.4 kg (03/02/25 5:58 PM) 58 kg (03/02/25 12:25 PM) Oxygen Saturation [94-100 %] 100 % (03/05/25 10:14 AM) 100 % (03/05/25 9:00 AM) 100 % (03/05/25 8:55 AM) Pulse Rate [55-90 bpm] 71 bpm (03/05/25 10:14 AM) 72 bpm (03/05/25 10:02 AM) 68 bpm (03/05/25 7:13 AM) Body Mass Index [18.5-24.99 kg/m2] 21.19 kg/m2 (03/05/25 7:13 AM) 21.19 kg/m2 (03/02/25 5:58 PM) 21.05 kg/m2 (03/02/25 12:25 PM) Blood Pressure [90-138/55-84 mm Hg] 121/89mm Hg (03/05/25 10:14 AM) 118/80mm Hg (03/05/25 10:02 AM) 120/80mm Hg (03/05/25 9:00 AM) Respiratory Rate [16-30 br/min] 16 br/min (03/05/25 11:04 AM) 18 br/min (03/05/25 10:14 AM) 13 br/min *L* (03/05/25 9:00 AM) Temperature [96.8-100.4 DegF] 98.6 DegF (03/05/25 10:14 AM) 97.2 DegF (03/05/25 8:50 AM) 97.8 DegF (03/05/25 7:13 AM) Mode of Delivery (Oxygen) Room air (03/05/25 10:14 AM) Room air (03/05/25 9:00 AM) Room air (03/05/25 8:55 AM) Blood pressure sites Arm, left (03/05/25 10:14 AM) Arm, left (03/05/25 9:00 AM) Arm, left (03/05/25 8:55 AM) Temperature Route Oral (03/05/25 10:14 AM) Temporal (03/05/25 8:50 AM) Temporal (03/05/25 7:13 AM) Dry Weight 58.4 kg (03/02/25 5:58 PM) 58 kg (03/02/25 12:25 PM) Weight Obtained Via Standing scale (03/02/25 5:58 PM) Dry Weight Obtained Via Standing scale (03/02/25 5:58 PM) Social History Social History Type Response Smoking Status Never (less than 100 in lifetime) entered on: 07/09/24 Sexual Orientation Self described orien tation: ; Straight or heterosexual Sex Female Sex Representation Female (finding) Status Not Social Determinants of Health Assessment Assessment Assessment Component Result Effecti ve Date Unspecifed Social Determinants of Health Assessment How often do you see or talk to people that you care about and feel close to [PRAPARE] Less than once a week 03/03/25 Has lack of transpor tation kept you from medical appointments, meetings, work, or from getting things needed for daily living No 03/03/25 Have you or any fami ly members you live with been unable to get any of the following when it was really needed in past 1 year [PRAPARE] None 03/03/25 Are you worried abou t losing your housing [PRAPARE] No 03/03/25 Housing status I have housing 03/03/25 Within the last year , have you been afraid of your partner or ex-partner No 03/03/25 Do you feel physical ly and emotionally safe where you currently live [PRAPARE] Yes 03/03/25 EGD Study * Event Display: GG EGD Please click on pdf link to open report Admission evaluation note * Delfino Lombardo MD: PERFORM, MODIFY Event Display: Admission Note Authored Date: [id number] Patient: ??EBONI HOWELL ? Age:??49 Years?Sex:??Female?:??1975?LOC:??[facility]?? History of Present Illness 49 yo F with history of chronic abdominal pain in the setting of sleeve gastrectomy and recurrent abdominal surgeries-on chronic opioids, Takotsubo CM,??Anxiety, Bipolar disorder, asthma and GERD whopresents from home due to dark stool.? Patient states she called her GI doctor who told her to come straight to the emergency department for admission.?? She reports she had 3 episodes of dark stool for which she has pictures on her phone??which??she shows to manage looks like??dark brown??to greenish??soft??bowel movements and no bright red??blood seen..?? She reports associated nausea without any vomiting, and no bleeding through mouth, nose or urine..?? Patient endorses frustration that she has been having this ongoing chronic pain as well as expressing fear because she reports of anyone in her family from massive GI bleed.?? Besides little distress denied any chest pain, palpitations, fever, chills, vomiting,??constipation, diarrhea. ?? Arrival emergency department patient has been afebrile blood pressure 165/113 saturating appropriately room air.?? Lab work with CBC completed initially unremarkable and repeat showing a hemoglobin of 11.1.?? Otherwise unremarkable.?? CMP is grossly unremarkable. Review of Systems ROS is negative except for what has been written in the subjective.?? Objective Vital Signs?? Temperature: 97.9 DegF (03/02/25 19:32:00) Temperature Route: Oral (03/02/25 19:32:00) Pulse Rate: 76 bpm (03/02/25 23:54:00) Respiratory Rate: 17 br/min (03/03/25 02:24:00) Systolic Blood Pressure: 136 mm Hg (03/02/25 23:54:00) Diastolic Blood Pressure:??104 mm Hg??High (03/02/25 23:54:00) Blood pressure sites: Arm, right (03/02/25 22:56:00) Mean Arterial Pressure: 116 mm Hg (03/02/25 22:56:00) Pulse Pressure: 27 mm Hg (03/02/25 22:56:00) Oxygen Saturation: 100 % (03/02/25 22:56:00) Mode of Delivery (Oxygen): Room air (03/02/25 22:56:00) Early Warning Score: 2 (03/03/25 03:10:06) ? Physical Exam Constitutional: In moderate distress from pain.?? Mental Status: Oriented to person, place and time. Respiratory: Clear to auscultation. No wheezing, rales or rhonchi. Cardiovascular: S1 S2 regular. No murmurs, rubs or gallops. Extremities: No peripheral edema. Gastrointestinal: Diffuse tenderness with palpation. Abdomen soft, non-distended. Neurologic: Cranial nerves II-XII grossly intact. No focal neurological deficits.?? Musculoskeletal: No cyanosis or clubbing. No gross deformities. Normal range of motion. Psychiatric: Normal mood and affect Assessment/Plan 49 yo F with history of chronic abdominal pain in the setting of sleeve gastrectomy and recurrent abdominal surgeries-on chronic opioids, Takotsubo CM,??Anxiety, Bipolar disorder, asthma and GERD whopresents from home due to dark stool.? Dark stools (R19.5): Patient presents with reported dark stools at home. She is hemodynamically stable without hypotension or tachycardia. Hemoglobin has remained stable without evidence of acute drop. Review of stool photos shows dark brown to greenish stools without clear features of melena. She denies iron supplement ation. Overall concern for active gastrointestinal bleeding is low at this time, though given presentation will continue close monitoring. Plan: -Start IV PPI -Monitor stools for melena or hematochezia -Trend daily hemoglobin and hematocrit -Defer GI consult unless hemoglobin decreases or bleeding concerns arise ?? Hypertensive urgency (I16.0): Patient had an episode of severe hypertension in the emergency department that improved after pain and anxiety control. No evidence of end organ damage. Hypertension is most consistent with stress response related to pain and anxiety. She is on carvedilol at home for blood pressure control. Plan: -Resume home carvedilol 12.5 mg twice daily -Monitor blood pressure trends -Optimize pain and anxiety control ?? 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 History of IBS also likely contributing. Currently pain is worse from baseline, abdominal exam is benign, and patient is tolerating oral intake. Concerns for opiod-induce bowel dysf unction. No current signs of obstruction, perforation, or acute surgical abdomen. Patient is not constipated and takes naloxegol at home. Plan: -Continue home pain regiment -Scheduled Tylenol,??oxycodone 50 mg??by mouth??every 4 hours as needed for moderate pain .?? -Takes Oxycodone ER??54 mg??2 times a day??will continue??during hospitalization at??40 mg 2 times a day -Dilaudid 0.5mg for severe pain for 3 times only. Per med rec takes Dilaudid 2mg oral tablet??Q4 for breakthrough pain, can switch back if pain well controlled. -Continue home mesalamine as reported -Perform serial abdominal examinations -Consider imaging if pain worsens or exam changes ?? Chronic GERD (K21.9): History of GERD with current concern for possible upper GI irritation contributing to dark stools. will continue IV PPI as above Mood disorder (F39): History of anxiety and bipolar disorder. Patient reports increased anxiety related to current symptoms but no acute psychiatric decompensation. Continue home clonazepam, hydroxyzine, nortriptyline, and zolpidem ? Adrenal insufficiency (E27.40): Questionable history of adrenal insufficiency with prior steroid exposure. No documentation confirming diagnosis. Patient currently off steroids and without signs ofadrenal crisis. ?? Quality Measures Diet:??Regular Access: Peripheral IV Anticoagulation:??Hold as??concern for??GI bleed?? Code status:??FULL CODE ?? This patient was seen and discussed with ??Sy Lombardo MD Internal Medicine PGY-2? Histories Allergies Allergies ?(Active and Proposed Allergies Only) Haldol? (Severity: Unknown severity, Onset: Unknown) ?Reactions: Agitation fentanyl topical? (Severity: Unknown severity, Onset: Unknown) ?Reactions: passed out sulfADIAZINE? (Severity: Unknown severity, Onset: Unknown) ?Reactions: rash sulfa drugs? (Severity: Unknown severity, Onset: Unknown) ?Reactions: rash sertraline? 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 (Severity: Unknown severity, Onset: Unknown) ?Reactions: She can't take NSAIDs secondary to gastric bypass Bactrim? (Severity: Unknown severity, Onset: Unknown) ?Reactions: rash ? Past Medical History/Problem List Active Problems(38) Adrenal insufficiency Allergic sinusitis Anxiety Asthma Bipolar disorder - is on depakote Chronic abdominal pain Chronic sinusitis Controlled substance agreement signed 10/10/24 DDD (degenerative disc disease), lumbar Discoloration of skin Dysmenorrhea Gallbladder problem - not currently planned for [...] of pelvic adhesions from 5 prior c-sections Lactic acidosis Low back pain Lower leg edema Lumbar radiculitis Multiple environmental allergies Nonallergic rhinitis Obesity Obstructive sleep apnea Osteoarthritis of knee Palpitation Pancreatitis Pedal edema Plantar fascia rupture Spinal stenosis Stress-induced cardiomyopathy Takotsubo syndrome UI (urinary incontinence) ? Past Surgical History Laparoscopic assisted total vaginal hysterectomy: 2017 Hysteroscopy: 06/13/17 Sigmoidoscopy: 06/13/17 Hysteroscopy with tubal sterilization ([facility]) - [...] laparoscopic adjustable gastric band - done at [facility]: 07/13/11 Adjustment of laparoscopic adjustable gastric band - done at [facility]: 11/23/10 Laparoscopic adjustable gastric bandin section - [...] 03/01/91 Echocardiogram ? Social History Alcohol Details:??Use: Past. Details:??Use: Past. Details:??Use: Never. Employment/School Details:??Status: Disabled. Details:??Status: Disabled. Exercise Details:??Self assessment: Fair condition. Details:??Regular exercise: No. Details:??Regular exercise: No. Home/Environment Details:??Living situation: Home/Independent. ??Lives with: Children. ??DCF involvement: Past. Details:??Living situation: Home/Independent. ??Lives with: Children. Nutrition/Health Details:??Diet: Regular. Details:??Diet: Regular. ??Caffeine intake amount: none. ??Feels highly stressed: No. Sexual Details:??Sexually involved in last 6 months: No. ??Gender identity: Female. ??Self described orientation: Straight or heterosexual. ??Preferred pronoun: She/Her/Hers. Details:??Sexually involved in last 6 months: No. ??Gender identity: Female. ??Self described orientation: Straight or heterosexual. ??Preferred pronoun: She/Her/Hers. ??Gender of partner(s): Male. Substance Abuse Details:??Substance abuse in household: No. Details:??Use: Current. ??Type: Marijuana. Details:??Use: Current. ??Type: Marijuana. Tobacco Details:??Use: Never (less than 100 in lifetime). Details:??Use: Never (less than 100 in lifetime). Details:??Other: WEED. Details:??Use: MARIJUANA. Details:??Use: MARIJUANA. Details:??Never smoker Electronic Cigarette/Vaping Details:??Electronic Cigarette Use: Never. Details:??Electronic Cigarette Use: Never. ? Family History Mother: Diabetes mellitus type 2; Heart disease; Hypertension; Osteoporosis Sibling: Hypertension ? Medications Home Medications Acetaminophen (Tylenol Extra Strength 500 mg oral tablet)??2 tab(s) 1,000 Milligram By Mouth Every 8 hours as needed Pain , Mild Albuterol (Albuterol (Eqv-Ventolin HFA) 90 mcg/inh inhalation aerosol)??2 puff(s) Inhalation Every 4 hours as needed cough, SOB, wheeze Carvedilol??12.5 Milligram By Mouth 2 times a day Cholecalciferol (Vitamin D3 50,000 intl units oral capsule)??1 capsule 1,250 Microgram By Mouth Every week Clonazepam (clonazePAM 1 mg oral tablet)??1 tab(s) 1 Milligram By Mouth 3 times a day MA Pat checked. Durable Medical Equipment (Aerochamber)??See Instructions always use with inhaler Durable Medical Equipment (Bedside Commode)??See Instructions please dispense bedside commode Dx M48.00, M54.5, R10.9, M17.10; length of need 99 Durable Medical Equipment (CBC, Basic metabolic panel)??See Instructions Anemia D64.9Electrolyte imbalance E87 Durable Medical Equipment (Comfort shield barrier cream cloths)??See Instructions Dx R32 Durable Medical Equipment (Compression Stockings)??See Instructions surgical, calf length 20-30 mm Hg, Dx lower leg edema R60.0 Durable Medical Equipment (Diapers)??See Instructions medium pull ups; ??Dx R32, N30.10 Durable Medical Equipment (disposable andrea pads)??See Instructions Dx R32, N30.10 Durable Medical Equipment (Home Blood Pressure Monitor)??See Instructions Use to measure blood pressure at rest daily. Dx HTN on Rx I10 Durable Medical Equipment (medical alert bracelet)??See Instructions Dx M48, M51.36, G89.29 Durable Medical Equipment (Nebulizer/Compressor)??See Instructions please dispense one nebulizer jeanette used with albuterol Dx J45.909 Durable Medical Equipment (Nebulizer/Compressor)??See Instructions please dispense nebulizer supplies to be used with albuterol Dx J45.909 Durable Medical Equipment (raised toilet seat)??See Instructions please dispense one raised toilet seat Dx M48, M54.16, M54.5 Durable Medical Equipment (ready fresh bathing wipes)??See Instructions M48, M51.36, G89.29, R32 Durable Medical Equipment (Shower Bar)??See Instructions please dispense shower bar Dx M48.00, M54.5, R10.9, M17.10; length of need 99 Durable Medical Equipment (Side bed rails)??See Instructions DC M17.1, M54.16, M54.5, R60.0 Durable Medical Equipment (Transfer Bench)??See Instructions Dx M48, M54.16, M54.5 Durable Medical Equipment (Walker)??See Instructions Please dispense one front wheeled walker Dx M48, M54.16, M54.5 Durable Medical Equipment (Wheelchair)??See Instructions Please dispense 1 large wheelchair with elevated leg rest; Ht 167cm, wt 100kg length of need 99mo Dx M17.1, M54.16 Esomeprazole (esomeprazole 40 mg oral enteric coated capsule)??1 capsule 40 Milligram By Mouth Daily Famotidine (famotidine 40 mg oral tablet)??1 tab(s) 40 Milligram By Mouth 2 times a day fesoterodine (Fesoterodine 8 mg oral tablet, extended release)??TAKE 1 TABLET BY MOUTH DAILY Fluconazole (fluconazole 150 mg oral tablet)??1 tab(s) 150 Milligram By Mouth Once Fluticasone (Arnuity Ellipta 100 mcg inhalation powder)??1 inhalation 100 Microgram Inhalation Every 24 hours to replace flovent Hydromorphone (HYDROmorphone 2 mg oral tablet)??1 tab(s) 2 Milligram By Mouth Every 4 hours as needed as needed for pain HydrOXYzine (hydrOXYzine pamoate 25 mg oral capsule)??1 capsule 25 Milligram By Mouth Daily at bedtime Mesalamine (mesalamine 0.375 g oral capsule, extended release)??4 capsule 1.5 gram By Mouth 3 timesa day Montelukast (Singulair 10 mg oral tablet)??10 Milligram 1 tablet By Mouth Daily in PM for 90 Days Nortriptyline (nortriptyline 75 mg oral capsule)??75 Milligram 1 capsule By Mouth Daily at bedtime for 90 Days Oxycodone (oxyCODONE 15 mg oral tablet)??1 tab(s) 15 Milligram By Mouth Every 6 hours as needed Pain , Severe for 28 Days Oxycodone (Xtampza ER 18 mg oral capsule, extended release)??3 capsule 54 Milligram By Mouth Every 12 hours for 28 Days take with food; pt on CSA; may fill less; MassPat checked Pantoprazole (pantoprazole 40 mg oral delayed release tablet)??1 tab(s) 40 Milligram By Mouth 2 times a day for 30 Days to replace lansoprozole Pantoprazole (pantoprazole 40 mg oral delayed release tablet)??40 Milligram By Mouth 2 times a day for 14 Days Quetiapine (QUEtiapine 100 mg oral tablet)??TAKE 1 TABLET BY MOUTH TWICE DAILY Sucralfate (sucralfate 1 gm oral tablet)??1 gram 1 tablet By Mouth 2 times a day Tamsulosin (tamsulosin 0.4 mg oral capsule)??0.4 Milligram 1 capsule By Mouth Daily Zolpidem (Ambien 5 mg oral tablet)??1 tab(s) 5 Milligram By Mouth Daily at bedtime as needed Insomnia ? Results Recent Labs BLOOD COUNT & DIFF WBC 5.5 k/mm3 ()?? 03/02/2025 12:20 RBC 4.14 m/mm3 (Low)?? 03/02/2025 12:20 Hgb 10.2 Gm/dL (Low)?? 03/02/2025 23:31 Hct 30.1 % (Low)?? 03/02/2025 23:31 MCV 86.7 femtoliters ()?? 03/02/2025 12:20 MCH 29.2 pg ()?? 03/02/2025 12:20 MCHC 33.7 Gm/dL ()?? 03/02/2025 12:20 Platelet Count 211 k/mm3 ()?? 03/02/2025 12:20 RDW-SD 45.1 femtoliters ()?? 03/02/2025 12:20 MPV 10.0 femtoliters ()?? 03/02/2025 12:20 Nucleated RBC (Automated) 0.0 #/100 WBC'S ()?? 03/02/2025 12:20 Abs. NRBC 0.0 k/mm3 ()?? 03/02/2025 12:20 Abs. Neut 3.3 k/mm3 ()?? 03/02/2025 12:20 Abs. Lymph 1.7 k/mm3 ()?? 03/02/2025 12:20 Abs. Bracken 0.5 k/mm3 ()?? 03/02/2025 12:20 Abs. Eo 0.0 k/mm3 ()?? 03/02/2025 12:20 Abs. Baso 0.0 k/mm3 ()?? 03/02/2025 12:20 Neut % 59.4 % ()?? 03/02/2025 12:20 Lymph % 30.7 % ()?? 03/02/2025 12:20 Bracken % 8.8 % ()?? 03/02/2025 12:20 Eos % 0.2 % ()?? 03/02/2025 12:20 Baso % 0.7 % ()?? 03/02/2025 12:20 Imm Gran 0.2 % ()?? 03/02/2025 12:20 Abs. Imm Gran 0.0 k/mm3 ()?? 03/02/2025 12:20 ?? CARDIAC High Sensitivity Troponin (HSTnT) <6 ng/L () 03/02/2025 23:31 ?? CHEM GENERAL Sodium 142 mmol/L ()?? 03/02/2025 12:20 Potassium 3.9 mmol/L ()?? 03/02/2025 12:20 Chloride 106 mmol/L ()?? 03/02/2025 12:20 Bicarbonate Level 24 mmol/L ()?? 03/02/2025 12:20 Anion Gap 12 mmol/L ()?? 03/02/2025 12:20 Glucose Level 103 mg/dL (High)?? 03/02/2025 12:20 BUN 10 mg/dL ()?? 03/02/2025 12:20 Creatinine-Blood 0.85 mg/dL ()?? 03/02/2025 12:20 Estimated GFR Creatinine 84 ML/MIN/1.73 M2 ()?? 03/02/2025 12:20 Calcium 9.5 mg/dL ()?? 03/02/2025 12:20 Protein, Total 7.7 Gm/dL ()?? 03/02/2025 12:20 Albumin 4.3 Gm/dL ()?? 03/02/2025 12:20 AG Ratio 1.3 ()?? 03/02/2025 12:20 Alkaline Phosphatase 73 units/L ()?? 03/02/2025 12:20 Lipase, Serum/Plasma 32 units/L ()?? 03/02/2025 12:20 AST (SGOT) 24 units/L ()?? 03/02/2025 12:20 ALT (SGPT) 18 units/L ()?? 03/02/2025 12:20 Bilirubin, Total 0.3 mg/dL ()?? 03/02/2025 12:20 Lactate 1.2 mmol/L ()?? 03/02/2025 12:20 ?? HEME OTHER Hold Blue Top SPECIMEN DISCARDED AFTER 4 HOURS. ()?? 03/02/2025 12:20 ?? URINE OTHER Est Creatinine Clearance 73.87 mL/min ()?? 03/02/2025 13:01 ? Electronically Signed on 03/03/25 03:35 AM Grupo SPENCER, Delfino Dan MD, Xavier: PERFORM Event Display: Admission Note Authored Date: Attending Attestation: I have seen and evaluated this patient. ?? I have discussed the case and its management with the resident and agree with the findings and dilshad documented in the resident's note. ??I ??will continue to provide care to this patient till 7 AMof the admitting date. ?? 49-year-old female with a past medical history of multiple abdominal bariatric surgeries, slipped Lap-Band, gastric sleeve/gastric bypass surgery, adrenal insufficiency, hiatal hernia, nonischemic cardiomyopathy , GI bleeding, intra-abdominal scarring, chronic interstitial cystitis, IBS failure to thrive, bipolar disorder came with a complaint of dark black color tarry stool. ??He was advised by GI team to go to the ED. ??Complaint of nausea without any vomiting. ??Hemoglobin is stable. ??She was hypotensive in the ED. ??She is followed by GI in the past for ongoing epigastric burning pain in spite of taking PPI, Zantac. ??Patient have EGD on 04/01 that showed gastritis., ??Capsuleendoscopy in the past that was negative patient have repeat EGD/colonoscopy in 04/05 that showed marginal ulcer at RYGB, hyperplastic polyps, subsequently repeat EGD on 09/03 showed mild inflammationaround the anastomosis, and another repeat endoscopy on 12/5/23 that showed inflammation at gastricjejunal anastomosis and jejunal jejunal anastomosis. ??She was discharged last month for abdominal pain/failure to thrive currently no signs or symptoms of active bleeding. Will follow H&H and will consult with GI as needed if there will be any significant drop in hemoglobin.?? Abdominal examination is benign.?? No indication to get a CT of the abdomen unless change in clinical condition.??Will continue with the serial abdominal examination.?? Will optimize the blood pressure medication. Electronically Signed on 03/03/25 05:04 AM Mathieu Dan MDjinder EKG study * Event Display: ECG 12-Lead Authored Date: [id number] Please click on pdf link to open report * Event Display: ECG 12-Lead Authored Date: Ventricular Rate: 84 BPM Atrial Rate: 84 BPM P-R Interval: 210 ms QRS Duration: 84 ms Q-T Interval: 402 ms QTC Calculation(Bazett): 475 ms P Garrett: 71 degrees R Garrett: 12 degrees T Garrett: 47 degrees Sinus rhythm with 1st degree A-V block with frequent Premature ventricular complexes Possible Left atrial enlargement Borderline ECG When compared with ECG of 02-Mar-2025 19:29, No significant change was found Confirmed by DONTAE BARRIOS MD ([id number]) on 03/04/2025 2:04:22 PM [place]: DONTAE BARRIOS MD * Event Display: ECG 12-Lead Authored Date: [id number] Please click on pdf link to open report * Event Display: ECG 12-Lead Authored Date: [id number] Ventricular Rate: 83 BPM Atrial Rate: 83 BPM P-R Interval: 208 ms QRS Duration: 70 ms Q-T Interval: 400 ms QTC Calculation(Bazett): 470 ms P Garrett: 66 degrees R Garrett: 17 degrees T Garrett: 57 degrees Sinus rhythm with occasional Premature ventricular complexes Otherwise normal ECG When compared with ECG of 02-Mar-2025 12:08, No significant change was found Confirmed by Tristin Loya ([id number]) on 03/03/2025 6:48:35 AM [place]: Tristin Loya * Event Display: ECG 12-Lead Authored Date: [id number] Please click on pdf link to open report * Event Display: ECG 12-Lead Authored Date: Ventricular Rate: 83 BPM Atrial Rate: 83 BPM P-R Interval: 184 ms QRS Duration: 68 ms Q-T Interval: 400 ms QTC Calculation(Bazett): 470 ms P Garrett: 78 degrees R Garrett: 32 degrees T Garrett: 56 degrees Sinus rhythm with frequent Premature ventricular complexes Otherwise normal ECG When compared with ECG of 08-Feb-2025 14:04, Premature ventricular complexes are now Present Nonspecific T wave abnormality no longer evident in Anterior leads Confirmed by Tristin Loya ([id number]) on 03/02/2025 6:12:54 PM [place]: Tristin Loya [facility] Progress note * Ana Carter LPN: PERFORM, SIGN, VERIFY Event Display: [facility] Authored Date: Patient: EBONI HOWELL Age: 49 years Sex: Female : 1975 Associated Diagnoses: None Author: Ana Carter LPN Findings Evaluation Patient returned from endoscopy Awake, alert and responsive. C/O toothache and abdominal pain. Medicated with oragel and prn dilaudid. Paged provider for diet order. No n/v. Tolerated oral medications. EGD non acute. Provider discussed results with Patient and she is ready for discharge. Patient agrees with plan. . Electronically Signed on 03/05/25 10:11 AM Ana Carter LPN * Sayra Rivers RN: PERFORM, SIGN, VERIFY Event Display: [facility] Authored Date: Patient: EBONI HOWELL Age: 49 years Sex: Female : 1975 Associated Diagnoses: None Author: Sayra Rivers RN Findings Problem Related to Alteration in Comfort : Alteration in Comfort/new 03/05/2025 1:00 EST Alteration in Comfort Related to Disease process Goals & Outcomes: Comfort Pt will report acceptable level of comfort & pain control, Pt will state importance of adhering to pain strategy regime, Pt will demonstrate necessary skills to manage pain, Non-verbal indicators will indicate comfort/pain control Interventions Implemented: Comfort Assess pain using appropriate pain scale/tools, Assess aggravating factors & prevent them accordingly, Assess alleviating factors & promote them accordingly Goals/Interventions, Comfort Yes Comfort, Problem Start 03/05/2025 1:47 Reviewed plan with, Comfort Patient Patient Progression, Comfort Plan Initiation Comfort, Problem Ongoing Yes . Alteration in Gastrointestinal : Alteration in Gastrointestinal Func/new 03/05/2025 1:00 EST Alteration in GI status Related to Other: R/O GI bleed, abd. pain Goals & Outcomes, Gastrointestinal Establish a regular pattern of elimination for pt, Pt will achieve normal/improved fluid balance, Pt will have a bowel movement prior to discharge, Pt will maintain adequate GI function appropriate for pt, Pt will maintain normal elimination patterns, Pt will resume/maintain adequate hemodynamic status, Pt will tolerate age appropriate diet prior to discharge, Tissue perfusion will return to baseline Interventions, Gastrointestinal Assess/monitor abdomen for distention, tenderness, Assess/monitor abdominal girth & bowel function, Assess/monitor bowel pattern, bowel sounds, flatus, Assess/monitor number of bowel movements, Assess/monitor color, quantity, quality, consistency of stoo, Assess/monitor pt for nausea, vomiting, Assess/monitor effects of re-hydration, Assess/monitor intake &output, Assess if pt tolerating diet, Elevate HOB to facilitate lung expansion, prevent aspiration,Assess/monitor blood loss, Assess/monitor for s/s of hypovolemia, Assess origin of gastritis Goals/Interventions, Gastrointestinal Yes Gastrointestinal, Problem Start 03/03/2025 12:51 Reviewed plan with, Gastrointestinal Patient Patient Progression, Gastrointestinal Pt progressing according to plan . Nursing Data Vital Signs : VITAL SIGNS SECTION 03/04/2025 23:45 EST Temperature 97.9 DegF Temperature Route Oral Pulse Rate 73 bpm Respiratory Rate 16 br/min Systolic Blood Pressure 102 mm Hg Diastolic Blood Pressure 62 mm Hg Blood pressure sites Arm, left Mean Arterial Pressure 75 mm Hg Pulse Pressure 40 mm Hg Oxygen Saturation 100 % Mode of Delivery (Oxygen) Room air . Narrative/Incidental Alert and oriented x 4, ambulates steadily. Still complained of pain all over, being managed by Oxycodone and Dilaudid. Instructed NPO after midnight for EGD. Will continue care plan. Evaluation Progressing with plan of care. Electronically Signed on 03/05/25 02:02 AM Silvestre VASQUEZ, Sayra Cazares RN, Ruma: SIGN, PERFORM, VERIFY Event Display: Progress Note Hospital Authored Date: [id number] Patient: EBONI HOWELL Age: 49 years Sex: Female : 1975 Associated Diagnoses: None Author: Ruma Cazares RN Findings Problem Related to Alteration in Gastrointestinal : Alteration in Gastrointestinal Func/new 03/03/2025 21:00 EST Alteration in GI status Related to Other: R/O GI bleed, abd. pain Goals & Outcomes, Gastrointestinal Establish a regular pattern of elimination for pt, Pt will achieve normal/improved fluid balance, Pt will have a bowel movement prior to discharge, Pt will maintain adequate GI function appropriate for pt, Pt will maintain normal elimination patterns, Pt will resume/maintain adequate hemodynamic status, Pt will tolerate age appropriate diet prior to discharge, Tissue perfusion will return to baseline Interventions, Gastrointestinal Assess/monitor abdomen for distention, tenderness, Assess/monitor bowel pattern, bowel sounds, flatus, Assess/monitor number of bowel movements, Assess/monitor color, quantity, quality, consistency of stoo, Assess/monitor pt for nausea, vomiting, Assess if pt tolerating diet, DVT prophylaxis as ordered, Elevate HOB to facilitate lung expansion, prevent aspiration, Taking PO: Encourage/monitor intake & swallowing ability, Teach Pt/caregiver on bowel elimination interventions, Teach Pt/caregiver re: importance of bowel regime, Teach/encourage deep breath & cough exercises Goals/Interventions, Gastrointestinal No Gastrointestinal, Problem Start 03/03/2025 12:51 Reviewed plan with, Gastrointestinal Patient Patient Progression, Gastrointestinal Pt progressing according to plan . Evaluation Patient AxOx4; denies any dizziness, headache, nausea, SOB, cough, dysuria, constipation, or paresthesia in extremities. Patient endorses severe epigastric pain and tenderness to palpation at 7/10; severe bladder pain and tenderness to palpation in suprapubic area at 7/10; and chronic L knee tenderness. Pain managed with scheduled Tylenol 650 mg, scheduled Oxycontin 20 mg, and PRN Oxycodone 15 mg admin at 2043, with + effect. PRN Zolpidem 5 mg admin for sleep at 2358, effects pending. Skin intact; extremities warm and dry; no edema noted. Palpable radial and pedal pulses, bilaterally. Patient afebrile; initially moderately hypertensive at 158/100 mm Hg, at HS. BP improved to 116/72 mm Hg a fter admin of scheduled Carvedilol 12.5 mg. Lung sounds clear; oxygen sat -100% on RA. Abdomen soft; + BS. LBM - 02/2025. Patient ambulating independently; steady gait noted; voiding in the bathroom.Call neal and personal items in reach. Plan: monitor BPs and H&H; pain control; monitor for melena and hematochezia; serial abdominal examinations. Discharge home tomorrow, if H&H stable. Forfull assessment details, see [facility]IS. Will continue monitoring the patient. . Electronically Signed on 03/04/25 12:25 AM Ruma Cazares RN Consult note * Cheri Davila DO: PERFORM, MODIFY, MODIFY, MODIFY Event Display: Consultation Note Authored Date: [id number] Patient: ??EBONI HOWELL ? Age:??49 Years?Sex:??Female?:??1975?LOC:??[facility]?? Referrring Provider Rafal Rhoades DO Chief Complaint llq pain w/ tarry stools, hx of gi surgeries, bypass noted gastric, many allergies. labs ekg orderd, gcs 15 ambulatoiry Reason for Consultation h/o gi bleed, >anastomotic ulcer/bleed History of Present Illness 49-year-old female patient with a very complicated past medical history including multiple abdominal surgeries due to multiple weight loss surgeries with complications (prior slipped Lap-band, gastric sleeve and conversion to Owen-en-Y, followed by revisions for Owen-en-Y most recently in 07/2024), c shiva section, history of GI bleeding with anastomosis ulcer, who presented to the emergency roomwith dark stools on 03/02. GI is being consulted for concern for GI bleed. ?? Of note, the patient has had multiple prior endoscopies and receives her GI care at [facility] and prior surgical care at [facility]. ?? Eboni has had multiple recent admissions for abdominal pain and concern for GI bleed. Her most recent mission was 02/08 - 02/09 for abdominal pain but was admitted prior from 02/02/25 - 02/06/25 forabdominal pain associated nausea and vomiting with bloody emesis. She was seen by GI during that admission on 02/04 for her chronic abdominal pain. ?? Prior EGD history on file: 12/01/17: EGD + colonoscopy- gastritis; internal hemorrhoids with otherwise normal colon but recommended repeat colonoscopy in a few months due to poor prep-biopsies consistent with gastritis, negative H. pylori 03/24/18: EGD for epigastric pain-gastritis along with food debris in the cardia recess status post sleeve gastrectomy in the stomach- biopsies consistent with gastritis, negative for H. pylori 08/26/20: EGD- normal 04/06/22: EGD + colon- gastrojejunal anastomosis at 45 cm with 2 sola visible with focal area of friable mucosa and 2 cm long superficial ulceration sending to the jejunum- do not have pathology onfile for biopsies. Colon with two 6-8 mm appearing polyps and small internal hemorrhoids 09/03/22: EGD- 4 sola noted with mild superficial inflammation and erosions noted around 3 of these that were removed with biopsies taken from the antrum and anastomotic site and pouch with overallappearance improved compared to prior 02/15/23: Mild inflammation around anastomosis, esophagitis ?? We do not have biopsies from these procedures to be on 2019 as they were not performed at [facility]. ?? Patient reports she developed acute on chronic epigastric pain??followed by the urge to defecate. When she looked in the toilet, she saw black tarry stool??which she never seen before. ??No nausea orvomiting at this time. 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 Patient's tired and very upset about having this ongoing pain, as well as expressing significant fear because she reports that many women in her family of massive GI bleeding.??She is very concerned about her failure to thrive??and reports she does not eat great because??eating often worsens her pain.??She has not had any further episodes of melena since arrival to the??ED??but has not yet had a bowel movement. She denies any NSAID use, does not drink any alcohol. No fever, chills, night sweats. ?? Upon arrival to the ED, the patient was afebrile and hemodynamically stable although hypertensive with a blood pressure of 165/113.?? At the time of ED arrival, he hemoglobin was 12.1. There were no significant lab abnormalities. No imaging was obtained. The patient was admitted for observation and further monitoring. Her hemoglobin has dropped to a level of 9.8 in the past 2 days.??She remains hemodynamically stable ?? Review of Systems Pertinent negative and positives included in subjective above.?? Physical Exam Vitals & Measurements T:??97.9?F?? TMIN:??97.9?F?? TMAX:??98.8?F?? HR:??69??(Peripheral)?? RR:??16?? BP:??97/63?? SpO2:??100%?? Constitutional: Pleasant and cooperative, not in acute distress??but appears fatigued. Head: Normocephalic. Eyes: Extraocular muscles intact. Ear, Nose and Throat: Oropharynx clear, mucous membranes slightly dry. Ears and nose without masses, lesions or deformities. Trachea midline. Neck: Full range of motion. Respiratory: Non-labored breathing, breathing comfortably on room air. Cardiovascular:??Appears well perfused. Gastrointestinal: Abdomen soft, nondistended with tenderness to palpation??in the epigastrium and right upper quadrant. Genitourinary: Mild suprapubic tenderness. Neurologic: Alert and oriented x3. Speech clear, comprehension intact. No gross focal neurological deficits. Skin: No acute or concerning rashes or lesions. No petechiae or purpura.?? Musculoskeletal: No gross deformities. Normal range of motion, moving all 4 extremities spontaneously. Psychiatric: Normal mood and affect without obvious signs of anxiety or depression. Assessment/Plan 49-year-old female patient with a very complicated past medical history including multiple abdominal surgeries due to multiple weight loss surgeries with complications (prior slipped Lap-band, gastric sleeve and conversion to Owen-en-Y, followed by revisions for Owen-en-Y most recently in 07/2024), c shiva mcnamara, history of GI bleeding with anastomosis ulcer, who presented to the emergency roomwith dark stools on 03/02. GI is being consulted for concern for GI bleed. ?? #Melena with drop in Hgb Patient developed acute on chronic onset??of epigastric pain followed by??3 episodes of melena. Hemoglobin slowly downtrending??with most recent hemoglobin 9.8 this morning.??No further episodes of melena since admitted. Remains hemodynamically stable. ?? RECOMMENDATIONS: -Plan to EGD tomorrow, 03/05, for further evaluation- NPO after midnight -Trend H+H closely, transfuse for Hgb <7 -Continue IV PPI BID -2 large bore IVs ?? Thank you for consulting Gastroenterology. Will will continue to follow along. ? Patient reviewed with supervising??attending Dr. Larry. ?? Cheri Davila, DO Gastroenterology Fellow, PGY-4 Pager# [phone] Problem List/Past Medical History Ongoing Adrenal insufficiency Allergic sinusitis Anxiety Asthma Bipolar disorder - is on depakote Chronic abdominal pain Chronic sinusitis Controlled substance agreement signed 10/10/24 DDD (degenerative disc disease), lumbar Discoloration of skin Dysmenorrhea Gallbladder problem - not currently planned for [...] of pelvic adhesions from 5 prior c-sections Lactic acidosis Low back pain Lower leg edema Lumbar radiculitis Multiple environmental allergies Nonallergic rhinitis Obesity Obstructive sleep apnea Osteoarthritis of knee Palpitation Pancreatitis Pedal edema Plantar fascia rupture Spinal stenosis Stress-induced cardiomyopathy Takotsubo syndrome UI (urinary incontinence) Procedure/Surgical History Laparoscopic assisted total vaginal hysterectomy: 2018 Sigmoidoscopy: 06/13/17 Hysteroscopy: 06/13/17 Hysteroscopy with tubal [...] laparoscopic adjustable gastric band - done at [facility]: 07/13/11 Adjustment of laparoscopic adjustable gastric band - done at [facility]: 11/23/10 Laparoscopic adjustable gastric bandin section - [...] pfannenstiel: 11/18/92 section ??- pfannenstiel: 03/01/91 Echocardiogram Medications Inpatient Acetaminophen(Acetaminophen Tablet), 650 mg, By Mouth, 4 times a day Carvedilol(carvedilol 12.5 mg oral tablet), 12.5 mg, By Mouth, 2 times a day Clonazepam(clonazePAM 1 mg oral tablet), 1 mg, By Mouth, 3 times a day Ergocalciferol(ergocalciferol 90481 iu oral capsule), 44235 units, By Mouth, Every week Guaifenesin/Dextromethorphan(Robitussin DM Liquid), 10 mL, By Mouth, Every 4 hours, PRN hydrALAZINE(hydrALAZINE 10 mg oral tablet), 10 mg, By Mouth, 2 times a day, PRN Hydromorphone(HYDROmorphone Inj), 1 mg= 1 mL, IV Push Slowly, Every 4 hours, PRN HydrOXYzine(hydrOXYzine pamoate 25 mg oral capsule), 25 mg, By Mouth, Daily at bedtime Melatonin(Melatonin Tablet), 3 mg, By Mouth, Daily at bedtime, PRN Mesalamine(Mesalamine Capsule), 800 mg= 2 capsule, By Mouth, 3 times a day Nortriptyline(nortriptyline 25 mg oral capsule), 75 mg, By Mouth, Daily at bedtime Oxycodone(oxyCODONE 5 mg oral tablet), 15 mg, By Mouth, Every 6 hours, PRN Oxycodone(oxyCODONE 20 mg oral tablet, extended release), 40 mg, By Mouth, Every 12 hours Pantoprazole(Pantoprazole Inj), 40 mg, IV Push Slowly, Every 12 hours Polyethylene Glycol 3350(MiraLax Powder), 17 Gm= 1 pack/packet, By Mouth, Daily, PRN Quetiapine(QUEtiapine 100 mg oral tablet), 100 mg, By Mouth, Daily at bedtime Senna(Senna Tablet), 8.6 mg= 1 tablet, By Mouth, 2 times a day, PRN Simethicone(Simethicone Tablet), 80 mg, Chew, 3 times a day, PRN Sodium Chloride(NaCL 0.9% Flush), 3 mL, IV Push, Every 8 hours Sodium Chloride(NaCL 0.9% Flush), 3 mL, IV Push, Every 8 hours, PRN Sucralfate(sucralfate 1 gm oral tablet), 1 Gm, By Mouth, 2 times a day Tamsulosin(tamsulosin 0.4 mg oral capsule), 0.4 mg, By Mouth, Daily Zolpidem(Ambien 5 mg oral tablet), 5 mg, By Mouth, Daily at bedtime, PRN Home Acetaminophen(Tylenol Extra Strength 500 mg oral tablet), 1000 mg= 2 tablet, By Mouth, Every 8 hours, PRN Albuterol(Albuterol (Eqv-Ventolin HFA) 90 mcg/inh inhalation aerosol), 2 puffs, Inhalation, Every 4hours, PRN Carvedilol, 12.5 mg, By Mouth, 2 times a day Cholecalciferol(Vitamin D3 50,000 intl units oral capsule), 1250 mcg= 1 capsule, By Mouth, Every week Clonazepam(clonazePAM 1 mg oral tablet), 1 mg= 1 tablet, By Mouth, 3 times a day Durable Medical Equipment(Diapers), See Instructions, 11 refills Durable Medical Equipment(Bedside Commode), See Instructions Durable Medical Equipment(Shower Bar), See Instructions Durable Medical Equipment(ready fresh bathing wipes), See Instructions, 11 refills Durable Medical Equipment(medical alert bracelet), See Instructions Durable Medical Equipment(Aerochamber), See Instructions Durable Medical Equipment(Side bed rails), See Instructions Durable Medical Equipment(disposable andrea pads), See Instructions, 11 refills Durable Medical Equipment(Wheelchair), See Instructions Durable Medical Equipment(Home Blood Pressure Monitor), See Instructions Durable Medical Equipment(CBC, Basic metabolic panel), See Instructions Durable Medical Equipment(Compression Stockings), See Instructions, 2 refills Durable Medical Equipment(Walker), See Instructions Durable Medical Equipment(Transfer Bench), See Instructions Durable Medical Equipment(raised toilet seat), See Instructions Durable Medical Equipment(Nebulizer/Compressor), See Instructions, 11 refills Durable Medical Equipment(Comfort shield barrier cream cloths), See Instructions, 11 refills Durable Medical Equipment(Nebulizer/Compressor), See Instructions Esomeprazole(esomeprazole 40 mg oral enteric coated capsule), 40 mg= 1 capsule, By Mouth, Daily Famotidine(famotidine 40 mg oral tablet), 40 mg= 1 tablet, By Mouth, 2 times a day fesoterodine(Fesoterodine 8 mg oral tablet, extended release) Fluconazole(fluconazole 150 mg oral tablet), 150 mg= 1 tablet, By Mouth, Once Fluticasone(Arnuity Ellipta 100 mcg inhalation powder), 100 mcg= 1 inhalation, Inhalation, Every 24hours, 11 refills Hydromorphone(HYDROmorphone 2 mg oral tablet), 2 mg= 1 tablet, By Mouth, Every 4 hours, PRN Hydromorphone(HYDROmorphone 2 mg oral tablet) HydrOXYzine(hydrOXYzine pamoate 25 mg oral capsule), 25 mg= 1 capsule, By Mouth, Daily at bedtime Mesalamine(mesalamine 0.375 g oral capsule, extended release), 1.5 Gm= 4 capsule, By Mouth, 3 timesa day Miscellaneous Rx(AMLODIPINE TAB 2.5MG) Montelukast(Singulair 10 mg oral tablet), 10 mg= 1 tablet, By Mouth, Daily in PM, 3 refills naloxegol(Movantik 25 mg oral tablet) Nortriptyline(nortriptyline 75 mg oral capsule), 75 mg= 1 capsule, By Mouth, Daily at bedtime, 1 refills Oxycodone(oxyCODONE 15 mg oral tablet), 15 mg= 1 tablet, By Mouth, Every 6 hours, PRN Oxycodone(Xtampza ER 18 mg oral capsule, extended release), 54 mg= 3 capsule, By Mouth, Every 12 hours Pancrelipase(Creon 12,000 units oral delayed release capsule) Pantoprazole(pantoprazole 40 mg oral delayed release tablet), 40 mg, By Mouth, 2 times a day Pantoprazole(pantoprazole 40 mg oral delayed release tablet), 40 mg= 1 tablet, By Mouth, 2 times a day, 6 refills Quetiapine(QUEtiapine 100 mg oral tablet) Sucralfate(sucralfate 1 gm oral tablet), 1 Gm= 1 tablet, By Mouth, 2 times a day Tamsulosin(tamsulosin 0.4 mg oral capsule), 0.4 mg= 1 capsule, By Mouth, Daily Zolpidem(Ambien 5 mg oral tablet), 5 mg= 1 tablet, By Mouth, Daily at bedtime, PRN Allergies Bactrim??rash Haldol??Agitation NSAIDs??She can't take NSAIDs secondary to gastric bypass Pork fentanyl topical??passed out sertraline??QT wave change sulfADIAZINE??rash sulfa drugs??rash Social History Alcohol Use:Past Electronic Cigarette/Vaping E-Cigarette Use:Never Employment/School Status:Disabled Exercise Self assessment:Fair condition Home/Environment Living situation:Home/Independent Lives with:Children DCF involvement:Past Nutrition/Health Diet: (Don't list allergies here)Regular Sexual Sexually involved in last 6 months:No Gender identity:Female Self described orientation:Straight or heterosexual Preferred pronoun:She/Her/Hers Gender of partner(s):Male Substance Abuse Substance abuse in household:No Tobacco Use:Never (less than 100 in lifetime) Family History Cancer of breast: Negative: Mother and Sibling. Cancer of cervix: Negative: Mother and Sibling. Cancer of colon: Negative: Mother, Father and Sibling. Diabetes mellitus type 2: Mother. Diabetes mellitus type II: Negative: Mother, Father and Sibling. Endometrial Ca: Negative: Mother and Sibling. Heart disease: Mother. Hyperlipidemia: Negative: Mother, Father and Sibling. Hypertension: Mother and Sibling.Negative: Father. Osteoporosis: Mother. Electronically Signed on 03/04/25 05:10 PM Cheri Davila DO, MD, Charline Gutierrez: PERFORM Event Display: Consultation Note Authored Date: Attending Attestation:??I have seen and evaluated this patient. I have discussed the case and its management with the fellow and agree with the findings and plan as documented in the fellow's note. ?? Charline Larry MD [facility] Electronically Signed on 03/05/25 01:35 PM Charline Larry MD Note * Rafal Rhoades DO: PERFORM Event Display: Discharge/Transfer Note Hospital Authored Date: Patient: ??EBONI HOWELL ? Age:??49 Years?Sex:??Female?:??1975?LOC:??[facility]?? Patient Information Discharge Location: [facility] Primary Care Physician: Heather Dowell MD Admit Date/Time: 03/03/2025 14:21 Discharge date: 05 March 2025 Discharge Disposition Discharge Disposition: Home: No Services Discharge Diagnosis Abdominal pain ([id number]) Chronic GERD (K21.9) Dark stools (R19.5) Hypertensive urgency (I16.0) _ Discharge Medications Acetaminophen (Tylenol Extra Strength 500 mg oral tablet)??2 tab(s) 1,000 Milligram By Mouth Every 8 hours as needed Pain , Mild Albuterol (Albuterol (Eqv-Ventolin HFA) 90 mcg/inh inhalation aerosol)??2 puff(s) Inhalation Every 4 hours as needed cough, SOB, wheeze Carvedilol??12.5 Milligram By Mouth 2 times a day Cholecalciferol (Vitamin D3 50,000 intl units oral capsule)??1 capsule 1,250 Microgram By Mouth Every week Clonazepam (clonazePAM 1 mg oral tablet)??1 tab(s) 1 Milligram By Mouth 3 times a day MA Pat checked. Durable Medical Equipment (Aerochamber)??See Instructions always use with inhaler Durable Medical Equipment (Bedside Commode)??See Instructions please dispense bedside commode Dx M48.00, M54.5, R10.9, M17.10; length of need 99 Durable Medical Equipment (CBC, Basic metabolic panel)??See Instructions Anemia D64.9Electrolyte imbalance E87 Durable Medical Equipment (Comfort shield barrier cream cloths)??See Instructions Dx R32 Durable Medical Equipment (Compression Stockings)??See Instructions surgical, calf length 20-30 mm Hg, Dx lower leg edema R60.0 Durable Medical Equipment (Diapers)??See Instructions medium pull ups; ??Dx R32, N30.10 Durable Medical Equipment (disposable andrea pads)??See Instructions Dx R32, N30.10 Durable Medical Equipment (Home Blood Pressure Monitor)??See Instructions Use to measure blood pressure at rest daily. Dx HTN on Rx I10 Durable Medical Equipment (medical alert bracelet)??See Instructions Dx M48, M51.36, G89.29 Durable Medical Equipment (Nebulizer/Compressor)??See Instructions please dispense one nebulizer jeanette used with albuterol Dx J45.909 Durable Medical Equipment (Nebulizer/Compressor)??See Instructions please dispense nebulizer supplies to be used with albuterol Dx J45.909 Durable Medical Equipment (raised toilet seat)??See Instructions please dispense one raised toilet seat Dx M48, M54.16, M54.5 Durable Medical Equipment (ready fresh bathing wipes)??See Instructions M48, M51.36, G89.29, R32 Durable Medical Equipment (Shower Bar)??See Instructions please dispense shower bar Dx M48.00, M54.5, R10.9, M17.10; length of need 99 Durable Medical Equipment (Side bed rails)??See Instructions DC M17.1, M54.16, M54.5, R60.0 Durable Medical Equipment (Transfer Bench)??See Instructions Dx M48, M54.16, M54.5 Durable Medical Equipment (Walker)??See Instructions Please dispense one front wheeled walker Dx M48, M54.16, M54.5 Durable Medical Equipment (Wheelchair)??See Instructions Please dispense 1 large wheelchair with elevated leg rest; Ht 167cm, wt 100kg length of need 99mo Dx M17.1, M54.16 Esomeprazole (esomeprazole 40 mg oral enteric coated capsule)??1 capsule 40 Milligram By Mouth Daily Famotidine (famotidine 40 mg oral tablet)??1 tab(s) 40 Milligram By Mouth 2 times a day fesoterodine (Fesoterodine 8 mg oral tablet, extended release)??TAKE 1 TABLET BY MOUTH DAILY Fluconazole (fluconazole 150 mg oral tablet)??1 tab(s) 150 Milligram By Mouth Once Fluticasone (Arnuity Ellipta 100 mcg inhalation powder)??1 inhalation 100 Microgram Inhalation Every 24 hours to replace flovent Hydromorphone (HYDROmorphone 2 mg oral tablet)??1 tab(s) 2 Milligram By Mouth Every 4 hours as needed as needed for pain Hydromorphone (HYDROmorphone 2 mg oral tablet)??TAKE 1 TABLET BY MOUTH EVERY 6 HOURS HydrOXYzine (hydrOXYzine pamoate 25 mg oral capsule)??1 capsule 25 Milligram By Mouth Daily at bedtime Mesalamine (mesalamine 0.375 g oral capsule, extended release)??4 capsule 1.5 gram By Mouth 3 timesa day Montelukast (Singulair 10 mg oral tablet)??10 Milligram 1 tablet By Mouth Daily in PM for 90 Days Nortriptyline (nortriptyline 75 mg oral capsule)??75 Milligram 1 capsule By Mouth Daily at bedtime for 90 Days Oxycodone (oxyCODONE 15 mg oral tablet)??1 tab(s) 15 Milligram By Mouth Every 6 hours as needed Pain , Severe for 28 Days Oxycodone (Xtampza ER 18 mg oral capsule, extended release)??3 capsule 54 Milligram By Mouth Every 12 hours for 28 Days take with food; pt on CSA; may fill less; MassPat checked Pantoprazole (pantoprazole 40 mg oral delayed release tablet)??1 tab(s) 40 Milligram By Mouth 2 times a day for 30 Days to replace lansoprozole Pantoprazole (pantoprazole 40 mg oral delayed release tablet)??40 Milligram By Mouth 2 times a day for 14 Days Quetiapine (QUEtiapine 100 mg oral tablet)??TAKE 1 TABLET BY MOUTH TWICE DAILY Sucralfate (sucralfate 1 gm oral tablet)??1 gram 1 tablet By Mouth 2 times a day Tamsulosin (tamsulosin 0.4 mg oral capsule)??0.4 Milligram 1 capsule By Mouth Daily Zolpidem (Ambien 5 mg oral tablet)??1 tab(s) 5 Milligram By Mouth Daily at bedtime as needed Insomnia ? Discharge Medications Unchanged Acetaminophen (Tylenol Extra Strength 500 mg oral tablet)2 tab(s) Oral every 8 hours as needed Pain, Mild. Albuterol (Albuterol (Eqv-Ventolin HFA) 90 mcg/inh inhalation aerosol)2 puff(s) Inhalation every 4 hours as needed cough, SOB, wheeze. Refills: 0. Dhwhhhnuqz69.5 Milligram Oral twice a day. Cholecalciferol (Vitamin D3 50,000 intl units oral capsule)1 capsule Oral every week. Refills: 0. Clonazepam (clonazePAM 1 mg oral tablet)1 tab(s) Oral 3 times a day. FALGUNI Pereira checked.. Refills: 0. Durable Medical Equipment (Aerochamber)always use with inhaler. Refills: 0. Durable Medical Equipment (Bedside Commode)please dispense bedside commode Dx M48.00, M54.5, R10.9,M17.10; length of need 99. Refills: 0. Durable Medical Equipment (CBC, Basic metabolic panel)Anemia D64.9 Electrolyte imbalance E87. Refills: 0. Durable Medical Equipment (Comfort shield barrier cream cloths)Dx R32. Refills: 11. Durable Medical Equipment (Compression Stockings)surgical, calf length 20-30 mm Hg, Dx lower leg edema R60.0. Refills: 2. Durable Medical Equipment (Diapers)medium pull ups; Dx R32, N30.10. Refills: 11. Durable Medical Equipment (disposable andrea pads)Dx R32, N30.10. Refills: 11. Durable Medical Equipment (Home Blood Pressure Monitor)Use to measure blood pressure at rest daily.Dx HTN on Rx I10. Refills: 0. Durable Medical Equipment (medical alert bracelet)Dx M48, M51.36, G89.29. Refills: 0. Durable Medical Equipment (Nebulizer/Compressor)please dispense nebulizer supplies to be used with albuterol Dx J45.909. Refills: 11. Durable Medical Equipment (Nebulizer/Compressor)please dispense one nebulizer to be used with albuterol Dx J45.909. Refills: 0. Durable Medical Equipment (raised toilet seat)please dispense one raised toilet seat Dx M48, M54.16, M54.5. Refills: 0. Durable Medical Equipment (ready fresh bathing wipes)M48, M51.36, G89.29, R32. Refills: 11. Durable Medical Equipment (Shower Bar)please dispense shower bar Dx M48.00, M54.5, R10.9, M17.10; length of need 99. Refills: 0. Durable Medical Equipment (Side bed rails)DC M17.1, M54.16, M54.5, R60.0. Refills: 0. Durable Medical Equipment (Transfer Bench)Dx M48, M54.16, M54.5. Refills: 0. Durable Medical Equipment (Walker)Please dispense one front wheeled walker Dx M48, M54.16, M54.5. Refills: 0. Durable Medical Equipment (Wheelchair)Please dispense 1 large wheelchair with elevated leg rest; [id number], wt 100kg length of need 99mo Dx M17.1, M54.16. Refills: 0. Esomeprazole (esomeprazole 40 mg oral enteric coated capsule)1 capsule Oral Daily. Famotidine (famotidine 40 mg oral tablet)1 tab(s) Oral twice a day. fesoterodine (Fesoterodine 8 mg oral tablet, extended release)TAKE 1 TABLET BY MOUTH DAILY. Fluconazole (fluconazole 150 mg oral tablet)1 tab(s) Oral once. Refills: 0. Fluticasone (Arnuity Ellipta 100 mcg inhalation powder)1 inhalation Inhalation every 24 hours. to replace flovent. Refills: 11. Hydromorphone (HYDROmorphone 2 mg oral tablet)1 tab(s) Oral every 4 hours as needed as needed for pain. Hydromorphone (HYDROmorphone 2 mg oral tablet)TAKE 1 TABLET BY MOUTH EVERY 6 HOURS. HydrOXYzine (hydrOXYzine pamoate 25 mg oral capsule)1 capsule Oral Daily at Bedtime. Mesalamine (mesalamine 0.375 g oral capsule, extended release)4 capsule Oral 3 times a day. Miscellaneous Rx (AMLODIPINE TAB 2.5MG) Montelukast (Singulair 10 mg oral tablet)1 tab(s) Oral Daily in PM for 90 Days. Refills: 3. naloxegol (Movantik 25 mg oral tablet) Nortriptyline (nortriptyline 75 mg oral capsule)1 capsule Oral Daily at Bedtime for 90 Days. Refills: 1. Oxycodone (oxyCODONE 15 mg oral tablet)1 tab(s) Oral every 6 hours as needed Pain , Severe for 28 Days. Refills: 0. Oxycodone (Xtampza ER 18 mg oral capsule, extended release)3 capsule Oral every 12 hours for 28 Days. take with food; pt on CSA; may fill less; MassPat checked. Refills: 0. Pancrelipase (Creon 12,000 units oral delayed release capsule) Pantoprazole (pantoprazole 40 mg oral delayed release tablet)40 Milligram Oral twice a day for 14 Days. Refills: 0. Pantoprazole (pantoprazole 40 mg oral delayed release tablet)1 tab(s) Oral twice a day for 30 Days.to replace lansoprozole. Refills: 6. Quetiapine (QUEtiapine 100 mg oral tablet)TAKE 1 TABLET BY MOUTH TWICE DAILY. Sucralfate (sucralfate 1 gm oral tablet)1 tab(s) Oral twice a day. Tamsulosin (tamsulosin 0.4 mg oral capsule)1 capsule Oral Daily. Zolpidem (Ambien 5 mg oral tablet)1 tab(s) Oral Daily at Bedtime as needed Insomnia. Allergies Allergies ?(Active and Proposed Allergies Only) Pork? (Severity: Unknown severity, Onset: Unknown) Haldol? (Severity: Unknown severity, Onset: Unknown) ?Reactions: Agitation fentanyl topical? (Severity: Unknown severity, Onset: Unknown) ?Reactions: passed out sulfADIAZINE? (Severity: Unknown severity, Onset: Unknown) ?Reactions: rash sulfa drugs? (Severity: Unknown severity, Onset: Unknown) ?Reactions: rash sertraline? 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 (Severity: Unknown severity, Onset: Unknown) ?Reactions: She can't take NSAIDs secondary to gastric bypass Bactrim? (Severity: Unknown severity, Onset: Unknown) ?Reactions: rash ? 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 Future Appointments Tuesday 12:10 PM EST ?? Type: Return With: Tabatha SPENCER, Christina Zavaleta Where: [facility] [address] [place] [address]- Status: Pending Hospital Course ?History of Present Illness 49 yo F with history of chronic abdominal pain in the setting of sleeve gastrectomy and recurrent abdominal surgeries-on chronic opioids, Takotsubo CM,??Anxiety, Bipolar disorder, asthma and GERD whopresents from home due to dark stool.? Patient states she called her GI doctor who told her to come straight to the emergency department for admission.?? She reports she had 3 episodes of dark stool for which she has pictures on her phone??which??she shows to manage looks like??dark brown??to greenish??soft??bowel movements and no bright red??blood seen..?? She reports associated nausea without any vomiting, and no bleeding through mouth, nose or urine..?? Patient endorses frustration that she has been having this ongoing chronic pain as well as expressing fear because she reports of anyone in her family from massive GI bleed.?? Besides little distress denied any chest pain, palpitations, fever, chills, vomiting,??constipation, diarrhea. ?? Arrival emergency department patient has been afebrile blood pressure 165/113 saturating appropriately room air.?? Lab work with CBC completed initially unremarkable and repeat showing a hemoglobin of 11.1.?? Otherwise unremarkable.?? CMP is grossly unremarkable. Review of Systems ROS is negative except for what has been written in the subjective.?? [1] ?? Saw examined this patient today on the . ??Briefly she is a 49-year-old female with a long history of multiple GI surgeries including multiple C- sections, bariatric surgeries,??she has a history of chronic abdominal pain is prescribed oxycodone and Dilaudid??by her??primary care doctor and alsoby one of her??GI doctors??at [facility]. ??In addition, she has a care plan that she identified and showed me that was written for her by [facility], where her??processor grain GI doctor bariatric surgeon and urologist are located. 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 ??For some reason she decided come to [facility] when she had abdominal pain. ?? She reported that she had acute abdominal pain the day of admission, with some dark stools, she wasconcern for GI bleeding and came to [facility]. ??Apparently she called her GI doctor told her to come to [facility]. ?? She has had some recent endoscopies,??she has a history of anastomotic surgeries for ?? Surgery, she takes chronic GI medicines including Protonix and??other medicines for antacids, hypertensive medicines, and she has history of Takotsubo's induced cardiomyopathy. ?? She has lost weight and has a left knee replacement. ??She says this limits her ability to ambulate. 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 ?? She came with abdominal pain she has had no additional bleeding,??her hemoglobin is slightly??lower,??from approximately??12 down to 10, unsure if this was related to dehydration or vomiting, howeverit was stable and there is generally??close to the same level of 9.8 versus 10 on admission. ?? There is no additional bleeding and she is??eating.?? She has abdominal pain in the epigastric and suprapubic area, she has no fevers or chills no shortness of breath or chest pain, her JVP is normal, her lungs are clear to auscultation, heart rate is regular rate and rhythm, there is no arrhythmias on the monitor and she has no evidence of any??fluid overload or heart failure. ?? There is no lower extremity??edema or swelling of the left lower extremity where she has her knee replacement. ?? No additional imaging was available, she is on multiple CAT scans, the most recent CAT scan was 02 February and there is no signs of bleeding or abnormality. ??She had some inflammation in the esophagus. ? Differential diagnosis for GI bleeding and dark stools could be anastomotic bleeding that one of her surgical sites. ??For this reason I placed a GI consult, if they see the patient is determined that she does not require an endoscopy, we can talk about pain management and discharge.?? If she is not going to get an endoscopy at [facility], the alternative for her??would be to go back to her GI doctor at [place] who has apparently been treating the patient for many years and knows her anatomy. ?? She is awake and alert and agrees to this plan. ??I gave her some pain medicines today,??the rest of her labs reviewed there is no signs of renal failure and there is no other metabolic abnormality that I can locate on her laboratory studies her abdominal exam??or physical exam. ?? I spoke to the patient she agreed to this plan, we will await the GI consultation and place discharge order if they are not planning an endoscopy. ?? In addition we will give her some pain medicines and a diet. ?? Will monitor for any additional GI bleeding while she is at [facility]. ?? 35 minutes were spent. ?? Thank you for allowing us to follow your patient. [1] ?? The patient was seen by GI on the recommend an EGD to be done on the , which was completedtoday the . ??There was no bleeding, there is some food retained in the distal esophagus,??there were no??anastomotic??bleeding sites there is a small erosion at one of the anastomotic sites the Owen-en-Y was noted there is no explanation of her??nominal pain and there is no bleeding. ?? She is appropriate for discharge in the hospital she is awake and alert her vital signs are stable she continue chronic pain medicines, see above for the differential. ?? I encouraged the patient to go to [facility], all of her physicians are there and her most ofher issues are related to chronic abdominal pain. ?? She??showed me documentation??that??she had a care plan that was already created for [facility] which she should continue to follow. Objective Vital Signs?? Temperature: 97.2 DegF (03/05/25 08:50:00) Temperature Route: Temporal (03/05/25 08:50:00) Pulse Rate: 72 bpm (03/05/25 10:02:00) Heart Rate Monitored: 73 bpm (03/05/25 09:00:00) Respiratory Rate:??13 br/min??Low (03/05/25 09:00:00) Systolic Blood Pressure: 118 mm Hg (03/05/25 10:02:00) Diastolic Blood Pressure: 80 mm Hg (03/05/25 10:02:00) Blood pressure sites: Arm, left (03/05/25 09:00:00) Mean Arterial Pressure: 104 mm Hg (03/05/25 07:13:00) Pulse Pressure: 43 mm Hg (03/05/25 06:31:00) Oxygen Saturation: 100 % (03/05/25 09:00:00) Mode of Delivery (Oxygen): Room air (03/05/25 09:00:00) Early Warning Score: 2 (03/05/25 10:08:01) ? Surgical Procedures Gastroscopy (EGD) with Biopsy 03/05/2025 08:30 [facility] Pending Results No Pending Results Follow-Up Appointments Added Follow Up ?Time Frame ?Comments Heather Dowell MD Patient Instructions Follow-up with your GI doctor. Post Discharge Care Diet: ??Regular Diet ?? Activity: ??Ambulate with assistance 3 times a day unless otherwise specified ?? Code Status: ??Full code ?? Discharge ?03/05/25 10:09:00 EST ?Order Comment:?? Discharge Prescriptions ?ePrescribed, 03/04/25 7:54:00 EST ?Order Comment:?? Home Health Face to Face ^HomeHealthFTF Results Discharge Labs BLOOD COUNT & DIFF WBC 4.9 k/mm3 ()?? 03/04/2025 00:47 RBC 3.38 m/mm3 (Low)?? 03/04/2025 00:47 Hgb 9.8 Gm/dL (Low)?? 03/04/2025 00:47 Hct 29.4 % (Low)?? 03/04/2025 00:47 MCV 87.0 femtoliters ()?? 03/04/2025 00:47 MCH 29.0 pg ()?? 03/04/2025 00:47 MCHC 33.3 Gm/dL ()?? 03/04/2025 00:47 Platelet Count 176 k/mm3 ()?? 03/04/2025 00:47 RDW-SD 43.7 femtoliters ()?? 03/04/2025 00:47 MPV 10.7 femtoliters ()?? 03/04/2025 00:47 Nucleated RBC (Automated) 0.0 #/100 WBC'S ()?? 03/04/2025 00:47 Abs. NRBC 0.0 k/mm3 ()?? 03/04/2025 00:47 Abs. Neut 3.3 k/mm3 ()?? 03/02/2025 12:20 Abs. Lymph 1.7 k/mm3 ()?? 03/02/2025 12:20 Abs. Bracken 0.5 k/mm3 ()?? 03/02/2025 12:20 Abs. Eo 0.0 k/mm3 ()?? 03/02/2025 12:20 Abs. Baso 0.0 k/mm3 ()?? 03/02/2025 12:20 Neut % 59.4 % ()?? 03/02/2025 12:20 Lymph % 30.7 % ()?? 03/02/2025 12:20 Bracken % 8.8 % ()?? 03/02/2025 12:20 Eos % 0.2 % ()?? 03/02/2025 12:20 Baso % 0.7 % ()?? 03/02/2025 12:20 Imm Gran 0.2 % ()?? 03/02/2025 12:20 Abs. Imm Gran 0.0 k/mm3 ()?? 03/02/2025 12:20 ?? CARDIAC High Sensitivity Troponin (HSTnT) <6 ng/L () 03/03/2025 04:48 ? CHEM GENERAL Sodium 140 mmol/L ()?? 03/04/2025 00:47 Potassium 3.5 mmol/L (Low)?? 03/04/2025 00:47 Chloride 106 mmol/L ()?? 03/04/2025 00:47 Bicarbonate Level 23 mmol/L ()?? 03/04/2025 00:47 Anion Gap 11 mmol/L ()?? 03/04/2025 00:47 Glucose Level 76 mg/dL ()?? 03/04/2025 00:47 BUN 11 mg/dL ()?? 03/04/2025 00:47 Creatinine-Blood 1.06 mg/dL (High)?? 03/04/2025 00:47 Estimated GFR Creatinine 65 ML/MIN/1.73 M2 ()?? 03/04/2025 00:47 Calcium 8.5 mg/dL (Low)?? 03/04/2025 00:47 Phosphorus 4.7 mg/dL (High)?? 03/03/2025 04:48 Magnesium 1.7 mg/dL ()?? 03/03/2025 04:48 Protein, Total 7.7 Gm/dL ()?? 03/02/2025 12:20 Albumin 4.3 Gm/dL ()?? 03/02/2025 12:20 AG Ratio 1.3 ()?? 03/02/2025 12:20 Alkaline Phosphatase 73 units/L ()?? 03/02/2025 12:20 Lipase, Serum/Plasma 32 units/L ()?? 03/02/2025 12:20 AST (SGOT) 24 units/L ()?? 03/02/2025 12:20 ALT (SGPT) 18 units/L ()?? 03/02/2025 12:20 Bilirubin, Total 0.3 mg/dL ()?? 03/02/2025 12:20 Lactate 1.2 mmol/L ()?? 03/02/2025 12:20 ? HEME OTHER Hold Blue Top SPECIMEN DISCARDED AFTER 4 HOURS. ()?? 03/02/2025 12:20 ? URINE OTHER Est Creatinine Clearance 59.24 mL/min ()?? 03/04/2025 02:09 ? 35??minutes spent on discharge [1]??Discharge Summary; Rafal Rhoades DO 03/04/2025 07:54 EST Electronically Signed on 03/05/25 10:12 AM Rafal Rhoades DO * Rafal Rhoades DO: PERFORM Event Display: Discharge/Transfer Note Hospital Authored Date: [id number] After I prepared the patient for discharge she asked me for Dilaudid prescriptions. ??I checked thepatient's??[employer] database as required by [place] law.?? Patient has received more than 160??long-acting oxycodone pills, along with more than 120 short acting oxycodone pills and both these pr escriptions were filled on 16 February. ??In addition she is on benzodiazepines.?? Her risk of additional opiates combined with benzodiazepines is high, she would be high risk for accidental overdose and therefore I would not prescribe her any additional??opiates. ??If she has any additional issues s he can see her primary care physicians or the physicians that are managing her chronic pain which [place] diagnosed her with.?? Electronically Signed on 03/05/25 11:15 AM Rafal Rhoades DO * Ana Carter LPN: PERFORM Event Display: Patient Education/Instruction Authored Date: [id number] Inpatient Adult Discharge Instructions. [address] [address] Name: EBONI HOWELL : 1975?? Visit: 03/03/2025 14:21?? Current Date: 03/05/2025 10:16 ?? Account: [id number]?? Inpatient Adult Discharge Instructions We would like [...] and their families. Surveys are administered by [employer] ?? If further treatment with your primary care physician or another doctor is recommended, it is important for you to keep the appointment. Call your primary care physician or return to the Emergency Department immediately if your condition worsens, fails to improve, or new symptoms develop. If you need to find a doctor, you can call [facility] for a referral at [phone] or toll free at [phone] ([phone]) or log in to [email or web address].. ?? [facility], in keeping with [facility] guidance, no longer requires face masks [...] a health care shraddha of your choosing. [employer] is a website that allows you to securely view your medical information including your hospital discharge summary, office visit summaries, medications and follow-up visits. You can also request appointments, renew medications, and request access to your medical information using a health care shraddha of your choosing, or just ask a question. You are entitled to know the individuals who participated in your treatment. This information is available within your medical record and will be provided upon your request. You can enroll at [email or web address] or register d uring your next office visit. You have been discharged from [facility], Patient Care Unit: D3B??. If you have any questions regarding these instructions, including results of studies pending, afteryou leave, please call us and we will be happy to assist you 04/10. [facility] Your Care Team Attending Physician Jf DO, Rafal Wick?? Consulting Providers Jf BLACKWOOD, Rafal Wick?? Discharging Providers Rafal Rhoades DO Reason for Your Visit llq pain w/ tarry stools, hx of gi surgeries, bypass noted gastric, many allergies. labs ekg orderd, gcs 15 ambulatoiry?? Your Diagnosis Abdominal pain Chronic GERD Hypertensive urgency Tests Performed Below is a partial list of the tests performed during your hospitalization. You may have had other tests and procedures not included in this list. Please discuss all test results with your provider. Basic Metabolic Panel CBC CBC w/ Differential Comprehensive Metabolic Panel H + H High Sensitivity Troponin T Hold Blue Top Tube Lactic Acid Level Lipase Magnesium Level Phosphorus Level Troponin T, High Sensitivity Basic Metabolic Panel?? CBC?? CBC w/ Differential?? Comprehensive Metabolic Panel?? Hgb + Hct (H + H)?? High??Sensitivity??Troponin T (High Sensitivity Troponin T)?? Hold Blue Top Tube?? Lactic Acid Level?? Lipase?? Magnesium Level?? Phosphorus Level?? Primary Care Provider Heather Dowell MD? Advance Directive Health Care Proxy on File Yes - Health Care Proxy Discharge Vitals Temperature: 97.2 DegF Height: 166 cm Pulse Rate: 72 bpm Weight: 58.4 kg Respiratory Rate:??13 br/min??Low Body Mass Index: 21.19 kg/m2 Systolic Blood Pressure: 118 mm Hg Body surface area: 1.64 Diastolic Blood Pressure: 80 mm Hg ?? Oxygen Saturation: 100 % ?? Studies Pending All studies ordered during this hospital stay have been completed unless listed below. Please discuss all pending results with your provider listed above in these instructions. ?? No incomplete studies found?? What to do next Instructions From Your Doctor Follow-up with your GI doctor. ?? Orders??:Regular Diet :Ambulate with assistance ??3 times a day ??unless otherwise specified Status:Full code? 03/05/25 10:09:00 EST?? Prescriptions??, ??03/04/25 7:54:00 EST?? Scheduled Follow-Up Appointments Tuesday 12:10 PM EST ?? Type: Return With: Christina Mays MD Where: [facility] [address] [place] [address]- Status: Pending You Need to Schedule the Following Appointments Follow Up with??Heather Dowell MD ?? Where: Discharge Medications EBONI HOWELL :1975 Visit Date:03/03/2025 Medications: Please continue your medications until treatment is completed or stopped by your provider. Medications not listed below should be discontinued. Discuss any questions related to medications with your provider. What How Much When Why Instructions Next Dose Unchanged Acetaminophen (Tylenol Extra Strength 500 mg oral tablet) 2 tab(s) Oral Every 8 hours as needed for Pain , Mild resume home schedule Unchanged Albuterol (Albuterol (Eqv-Ventolin HFA) 90 mcg/ inh inhalation aerosol) 2 puff(s) Inhalation Every 4 hours as needed for cough, SOB, wheeze Ordering Physician: Marion Ellison MD resume home schedule Unchanged Carvedilol 12.5 Milligram Oral Twice a day resume home schedule Unchanged Cholecalciferol (Vitamin D3 50,000 intl units oral capsule) 1 capsule Oral Every week Ordering Physician: Marcelo Villarreal MD resume home schedule Unchanged Clonazepam (clonazePAM 1 mg oral tablet) 1 tab(s) Oral 3 times a day Special Instructions: MA Kelli checked. Ordering Physician: Heather Dowell MD ?? resume home schedule Unchanged Durable Medical Equipment (Aerochamber) See instructions Special Instructions: always use with inhaler Ordering Physician: Marion Ellison MD ?? resume home schedule Unchanged Durable Medical Equipment (Bedside Commode) See instructions Special Instructions: please dispense bedside commode Dx M48.00, M54.5, R10.9, M17.10; length of need 99 Ordering Physician: Lisseth Nassar NP ?? resume home schedule Unchanged Durable Medical Equipment (CBC, Basic metabolic panel) See instructions Special Instructions: Anemia D64.9 Electrolyte imbalance E87 Ordering Physician: Marcelo Villarreal MD ?? resume home schedule Unchanged Durable Medical Equipment (Comfort shield barrier cream cloths) See instructions Special Instructions: Dx R32 Ordering Physician: Lisseth Nassar NP ?? resume home schedule Unchanged Durable Medical Equipment (Compression Stockings) See instructions Special Instructions: surgical, calf length 20-30 mm Hg, Dx lower leg edema R60.0 Ordering Physician: Lisseth Nassar NP ?? resume home schedule Unchanged Durable Medical Equipment (Diapers) See instructions Special Instructions: medium pull ups; ??Dx R32, N30.10 Ordering Physician: Lisseth Nassar NP ?? resume home schedule Unchanged Durable Medical Equipment (disposable andrea pads) See instructions Special Instructions: Dx R32, N30.10 Ordering Physician: Lisseth Nassar NP ?? resume home schedule Unchanged Durable Medical Equipment (Home Blood Pressure Monitor) See instructions HTN (hypertension) Special Instructions: Use to measure blood pressure at rest daily. Dx HTN on Rx I10 Ordering Physician: Sosa Herrera NP ?? resume home schedule Unchanged Durable Medical Equipment (medical alert bracelet) See instructions Special Instructions: Dx M48, M51.36, G89.29 Ordering Physician: Lisseth Nassar NP ?? resume home schedule Unchanged Durable Medical Equipment (Nebulizer/ Compressor) See instructions Asthma exacerbation Special Instructions: please dispense nebulizer supplies to be used with albuterol Dx J45.909 Ordering Physician: Stephanie Hunt NP ?? resume home schedule Unchanged Durable Medical Equipment (Nebulizer/ Compressor) See instructions Special Instructions: please dispense one nebulizer to be used with albuterol Dx J45.909 Ordering Physician: Lisseth Nassar NP ?? resume home schedule Unchanged Durable Medical Equipment (raised toilet seat) See instructions Low back pain Lumbar radiculitis Spinal stenosis Special Instructions: please dispense one raised toilet seat Dx M48, M54.16, M54.5 Ordering Physician: Lisseth Nassar NP ?? resume home schedule Unchanged Durable Medical Equipment (ready fresh bathing wipes) See instructions Special Instructions: M48, M51.36, G89.29, R32 Ordering Physician: Lisseth Nassar NP ?? resume home schedule Unchanged Durable Medical Equipment (Shower Bar) See instructions Special Instructions: please dispense shower bar Dx M48.00, M54.5, R10.9, M17.10; length of need 99 Ordering Physician: Lisseth Nassar NP ?? resume home schedule Unchanged Durable Medical Equipment (Side bed rails) See instructions Special Instructions: DC M17.1, M54.16, M54.5, R60.0 Ordering Physician: Lisseth Nassar NP ?? resume home schedule Unchanged Durable Medical Equipment (Transfer Bench) See instructions Low back pain Lumbar radiculitis Spinal stenosis Special Instructions: Dx M48, M54.16, M54.5 Ordering Physician: Lisseth Nassar NP ?? resume home schedule Unchanged Durable Medical Equipment (Walker) See instructions Special Instructions: Please dispense one front wheeled walker Dx M48, M54.16, M54.5 Ordering Physician: Lisseth Nassar NP ?? resume home schedule Unchanged Durable Medical Equipment (Wheelchair) See instructions Special Instructions: Please dispense 1 large wheelchair with elevated leg rest; Ht 167cm, wt 100kglength of need 99mo Dx M17.1, M54.16 Ordering Physician: Lisseth Nassar NP ?? resume home schedule Unchanged Esomeprazole (esomeprazole 40 mg oral enteric coated capsule) 1 capsule Oral Daily resume home schedule Unchanged Famotidine (famotidine 40 mg oral tablet) 1 tab(s) Oral Twice a day resume home schedule Unchanged fesoterodine (Fesoterodine 8 mg oral tablet, extended release) Special Instructions: TAKE 1 TABLET BY MOUTH DAILY ?? resume home schedule Unchanged Fluconazole (fluconazole 150 mg oral tablet) 1 tab(s) Oral Once Ordering Physician: Efe Pena NP Unchanged Fluticasone (Arnuity Ellipta 100 mcg inhalation powder) 1 inhalation Inhalation Every 24 hours Special Instructions: to replace flovent Ordering Physician: Lisseth Nassar NP ?? resume home schedule Unchanged Hydromorphone (HYDROmorphone 2 mg oral tablet) 1 tab(s) Oral Every 4 hours as needed for as needed for pain resume home schedule Unchanged Hydromorphone (HYDROmorphone 2 mg oral tablet) Special Instructions: TAKE 1 TABLET BY MOUTH EVERY 6 HOURS ?? last dose 10am 03/05/25 Unchanged HydrOXYzine (hydrOXYzine pamoate 25 mg oral capsule) 1 capsule Oral Daily at Bedtime resume home schedule Unchanged Mesalamine (mesalamine 0.375 g oral capsule, extended release) 4 capsule Oral 3 times a day resume home schedule Unchanged Miscellaneous Rx (AMLODIPINE TAB 2.5MG) resume home schedule Unchanged Montelukast (Singulair 10 mg oral tablet) 1 tab(s) Oral Daily in PM Duration: 90 Days Ordering Physician: Lisseth Nassar NP resume home schedule Unchanged naloxegol (Movantik 25 mg oral tablet) resume home schedule Unchanged Nortriptyline (nortriptyline 75 mg oral capsule) 1 capsule Oral Daily at Bedtime Duration: 90 Days Ordering Physician: Heather Dowell MD resume home schedule Unchanged Oxycodone (oxyCODONE 15 mg oral tablet) 1 tab(s) Oral Every 6 hours as needed for Pain , Severe Duration: 28 Days Ordering Physician: Heather Dowell MD resume home schedule Unchanged Oxycodone (Xtampza ER 18 mg oral capsule, extended release) 3 capsule Oral Every 12 hours Duration: 28 Days Special Instructions: take with food; pt on CSA; ?? may fill less; MassPat checked Ordering Physician: Heather Dowell MD ?? resume home schedule 12pm 03/05/25 Unchanged Pancrelipase (Creon 12,000 units oral delayed release capsule) resume home schedule Unchanged Pantoprazole (pantoprazole 40 mg oral delayed release tablet) 40 Milligram Oral Twice a day Duration: 14 Days Ordering Physician: Marcelo Villarreal MD resume home schedule Unchanged Pantoprazole (pantoprazole 40 mg oral delayed release tablet) 1 tab(s) Oral Twice a day Duration: 30 Days Special Instructions: to replace lansoprozole Ordering Physician: Nida Johnson MD ?? resume home schedule Unchanged Quetiapine (QUEtiapine 100 mg oral tablet) Special Instructions: TAKE 1 TABLET BY MOUTH TWICE DAILY ?? resume home schedule Unchanged Sucralfate (sucralfate 1 gm oral tablet) 1 tab(s) Oral Twice a day resume home schedule Unchanged Tamsulosin (tamsulosin 0.4 mg oral capsule) 1 capsule Oral Daily resume home schedule 03/06/25 Unchanged Zolpidem (Ambien 5 mg oral tablet) 1 tab(s) Oral Daily at Bedtime as needed for Insomnia resume home schedule Prescription Given During Visit No new medications prescribed at time of discharge.?? Laboratory Results Below is a partial list of the most recent Laboratory test results done prior to this discharge. You may have had other tests and procedures not included in this list. Please discuss all test resultswith your provider. Est Creatinine Clearance - 59.24 mL/min (03/04/2025) Basic Metabolic Panel (03/04/2025) ???Sodium - 140 mmol/L???Potassium - 3.5 mmol/L???Chloride - 106 mmol/L???Bicarbonate Level - 23 mmol/L???Anion Gap - 11 mmol/L???Glucose Level - 76 mg/dL???BUN - 11 mg/dL???Creatinine-Blood - 1.06 mg/dL???Estimated GFR Creatinine - 65 ML/MIN/1.73 M2???Calcium - 8.5 mg/dL CBC (03/04/2025) ???WBC - 4.9 k/mm3???RBC - 3.38 m/mm3???Hgb - 9.8 Gm/dL???Hct - 29.4 %???MCV - 87.0 femtoliters???MCH - 29.0 pg???MCHC - 33.3 Gm/dL???Platelet Count - 176 k/mm3???RDW-SD - 43.7 femtoliters???MPV - 10.7 femtoliters???Nucleated RBC (Automated) - 0.0 #/100 WBC'S???Abs. NRBC - 0.0 k/mm3 CBC w/ Differential (03/02/2025) ???WBC - 5.5 k/mm3???RBC - 4.14 m/mm3???Hgb - 12.1 Gm/dL???Hct - 35.9 %???MCV - 86.7 femtoliters???MCH - 29.2 pg???MCHC - 33.7 Gm/dL???Platelet Count - 211 k/mm3???RDW-SD - 45.1 femtoliters???MPV - 10.0 femtoliters???Nucleated RBC (Automated) - 0.0 #/100 WBC'S???Abs. NRBC - 0.0 k/mm3???Abs. Neut - 3.3 k/mm3???Abs. Lymph - 1.7 k/mm3???Abs. Bracken - 0.5 k/mm3???Abs. Eo - 0.0 k/mm3???Abs. Baso - 0.0 k/mm3???Neut % - 59.4 %???Lymph % - 30.7 %???Bracken % - 8.8 %???Eos % - 0.2 %???Baso % - 0.7 %???Imm Gran - 0.2 %???Abs. Imm Gran - 0.0 k/mm3 Comprehensive Metabolic Panel (03/02/2025) ???Sodium - 142 mmol/L???Potassium - 3.9 mmol/L???Chloride - 106 mmol/L???Bicarbonate Level - 24 mmol/L???Anion Gap - 12 mmol/L???Glucose Level - 103 mg/dL???BUN - 10 mg/dL???Creatinine-Blood - 0.85 mg/dL???Estimated GFR Creatinine - 84 ML/MIN/1.73 M2???Calcium - 9.5 mg/dL???Protein, Total - 7.7 Gm/ dL???Albumin - 4.3 Gm/dL???AG Ratio - 1.3???Alkaline Phosphatase - 73 units/L???AST (SGOT) - 24 units/L???ALT (SGPT) - 18 units/L???Bilirubin, Total - 0.3 mg/dL H + H (03/03/2025) ???Hgb - 10.2 Gm/dL???Hct - 30.8 % High Sensitivity Troponin T (03/03/2025) High Sensitivity Troponin (HSTnT) - <6 ng/L Hold Blue Top Tube (03/02/2025) ???Hold Blue Top - SPECIMEN DISCARDED AFTER 4 HOURS. Lactic Acid Level (03/02/2025) ???Lactate - 1.2 mmol/L Lipase (03/02/2025) ???Lipase, Serum/Plasma - 32 units/L Magnesium Level (03/03/2025) ???Magnesium - 1.7 mg/dL Phosphorus Level (03/03/2025) ???Phosphorus - 4.7 mg/dL Troponin T, High Sensitivity (03/02/2025) High Sensitivity Troponin (HSTnT) - <6 ng/L Allergies (NKA means No Known Allergies) Bactrim??rash Haldol??Agitation NSAIDs??She can't take NSAIDs secondary to gastric bypass Pork fentanyl topical??passed out sertraline??QT wave change sulfADIAZINE??rash sulfa drugs??rash Problems Active Problems??(38) Adrenal insufficiency?? Allergic sinusitis?? Anxiety?? Asthma?? Bipolar disorder - is on depakote?? Chronic abdominal pain?? Chronic sinusitis?? Controlled substance agreement signed 10/10/24?? DDD (degenerative disc disease), lumbar?? Discoloration of skin?? Dysmenorrhea?? Gallbladder problem - not currently planned for [...] of pelvic adhesions from 5 prior c-sections?? Lactic acidosis?? Low back pain?? Lower leg edema?? Lumbar radiculitis?? Multiple environmental allergies?? Nonallergic rhinitis?? Obesity?? Obstructive sleep apnea?? Osteoarthritis of knee?? Palpitation?? Pancreatitis?? Pedal edema?? Plantar fascia rupture?? Spinal stenosis?? Stress-induced cardiomyopathy?? Takotsubo syndrome?? UI (urinary incontinence)?? Education Materials Below is the list of Educational Leaflet Providered with your Discharge Instructions. Valuables and Belongings I fully understand and agree that [facility] accepts no responsibility for all my [...] ?? Date for Pt to Sign Valuables/Belongings: 03/02/25 17:57:00 ?? Other Discharge Information ? Pulmonary Rehab Status?? Pulmonary Rehab Discharge Status?? Respiratory Rate:??13 br/min??Low ? Common Emergency Awareness Tips IS IT [...] are strongly encouraged to quit. Please call [facility] [employer] Link at [phone] or [phone] ([phone]) or log in to [email or web address] for referrals to smoking cessation programs. ?? 783 Suicide & Crisis Lifeline is available 04/10 if you or someone you know needs to find a reason to keep living. By calling 712 you'll be connected to a skilled, trained counselor at a crisis center in your area. INPATIENT DISCHARGE INSTRUCTIONS SIGNATURE EBONI ALVARADO Location:[facility] Registration Date and Time:03/03/2025 14:21 EST Primary Care Physician: Heather Dowell MD, Attending Physician: Rafal Rhoades DO, Nigel JAVIER HOWELLINA, have received the above patient education materials/instructions and have verbalized understanding. If ambulance or transport services are being used I further acknowledge being given a choice of service. ?? If you need to contact me, please call me at this number: . Patient/Conductor Freight Name: Patient/Conductor Freight Signature: Relationship to Patient: Witness Name/Signature: Date: * Rafal Rhoades DO S: PERFORM Event Display: Discharge/Transfer Note Hospital Authored Date: Patient: ??EBONI HOWELL ? Age:??49 Years?Sex:??Female?:??1975?LOC:??[facility]?? Patient Information Discharge Location: [facility] Primary Care Physician: Heather Dowell MD Admit Date/Time: 03/03/2025 14:21 Discharge date: 04 March 2025 Discharge Disposition Discharge Disposition: Home with Home Health Discharge Diagnosis Abdominal pain ([id number]) Chronic GERD (K21.9) Dark stools (R19.5) Hypertensive urgency (I16.0) _ Discharge Medications Acetaminophen (Tylenol Extra Strength 500 mg oral tablet)??2 tab(s) 1,000 Milligram By Mouth Every 8 hours as needed Pain , Mild Albuterol (Albuterol (Eqv-Ventolin HFA) 90 mcg/inh inhalation aerosol)??2 puff(s) Inhalation Every 4 hours as needed cough, SOB, wheeze Carvedilol??12.5 Milligram By Mouth 2 times a day Cholecalciferol (Vitamin D3 50,000 intl units oral capsule)??1 capsule 1,250 Microgram By Mouth Every week Clonazepam (clonazePAM 1 mg oral tablet)??1 tab(s) 1 Milligram By Mouth 3 times a day MA Pat checked. Durable Medical Equipment (Aerochamber)??See Instructions always use with inhaler Durable Medical Equipment (Bedside Commode)??See Instructions please dispense bedside commode Dx M48.00, M54.5, R10.9, M17.10; length of need 99 Durable Medical Equipment (CBC, Basic metabolic panel)??See Instructions Anemia D64.9Electrolyte imbalance E87 Durable Medical Equipment (Comfort shield barrier cream cloths)??See Instructions Dx R32 Durable Medical Equipment (Compression Stockings)??See Instructions surgical, calf length 20-30 mm Hg, Dx lower leg edema R60.0 Durable Medical Equipment (Diapers)??See Instructions medium pull ups; ??Dx R32, N30.10 Durable Medical Equipment (disposable andrea pads)??See Instructions Dx R32, N30.10 Durable Medical Equipment (Home Blood Pressure Monitor)??See Instructions Use to measure blood pressure at rest daily. Dx HTN on Rx I10 Durable Medical Equipment (medical alert bracelet)??See Instructions Dx M48, M51.36, G89.29 Durable Medical Equipment (Nebulizer/Compressor)??See Instructions please dispense one nebulizer jeanette used with albuterol Dx J45.909 Durable Medical Equipment (Nebulizer/Compressor)??See Instructions please dispense nebulizer supplies to be used with albuterol Dx J45.909 Durable Medical Equipment (raised toilet seat)??See Instructions please dispense one raised toilet seat Dx M48, M54.16, M54.5 Durable Medical Equipment (ready fresh bathing wipes)??See Instructions M48, M51.36, G89.29, R32 Durable Medical Equipment (Shower Bar)??See Instructions please dispense shower bar Dx M48.00, M54.5, R10.9, M17.10; length of need 99 Durable Medical Equipment (Side bed rails)??See Instructions DC M17.1, M54.16, M54.5, R60.0 Durable Medical Equipment (Transfer Bench)??See Instructions Dx M48, M54.16, M54.5 Durable Medical Equipment (Walker)??See Instructions Please dispense one front wheeled walker Dx M48, M54.16, M54.5 Durable Medical Equipment (Wheelchair)??See Instructions Please dispense 1 large wheelchair with elevated leg rest; Ht 167cm, wt 100kg length of need 99mo Dx M17.1, M54.16 Esomeprazole (esomeprazole 40 mg oral enteric coated capsule)??1 capsule 40 Milligram By Mouth Daily Famotidine (famotidine 40 mg oral tablet)??1 tab(s) 40 Milligram By Mouth 2 times a day fesoterodine (Fesoterodine 8 mg oral tablet, extended release)??TAKE 1 TABLET BY MOUTH DAILY Fluconazole (fluconazole 150 mg oral tablet)??1 tab(s) 150 Milligram By Mouth Once Fluticasone (Arnuity Ellipta 100 mcg inhalation powder)??1 inhalation 100 Microgram Inhalation Every 24 hours to replace flovent Hydromorphone (HYDROmorphone 2 mg oral tablet)??1 tab(s) 2 Milligram By Mouth Every 4 hours as needed as needed for pain Hydromorphone (HYDROmorphone 2 mg oral tablet)??TAKE 1 TABLET BY MOUTH EVERY 6 HOURS HydrOXYzine (hydrOXYzine pamoate 25 mg oral capsule)??1 capsule 25 Milligram By Mouth Daily at bedtime Mesalamine (mesalamine 0.375 g oral capsule, extended release)??4 capsule 1.5 gram By Mouth 3 timesa day Montelukast (Singulair 10 mg oral tablet)??10 Milligram 1 tablet By Mouth Daily in PM for 90 Days Nortriptyline (nortriptyline 75 mg oral capsule)??75 Milligram 1 capsule By Mouth Daily at bedtime for 90 Days Oxycodone (oxyCODONE 15 mg oral tablet)??1 tab(s) 15 Milligram By Mouth Every 6 hours as needed Pain , Severe for 28 Days Oxycodone (Xtampza ER 18 mg oral capsule, extended release)??3 capsule 54 Milligram By Mouth Every 12 hours for 28 Days take with food; pt on CSA; may fill less; Mass[employer] checked Pantoprazole (pantoprazole 40 mg oral delayed release tablet)??1 tab(s) 40 Milligram By Mouth 2 times a day for 30 Days to replace lansoprozole Pantoprazole (pantoprazole 40 mg oral delayed release tablet)??40 Milligram By Mouth 2 times a day for 14 Days Quetiapine (QUEtiapine 100 mg oral tablet)??TAKE 1 TABLET BY MOUTH TWICE DAILY Sucralfate (sucralfate 1 gm oral tablet)??1 gram 1 tablet By Mouth 2 times a day Tamsulosin (tamsulosin 0.4 mg oral capsule)??0.4 Milligram 1 capsule By Mouth Daily Zolpidem (Ambien 5 mg oral tablet)??1 tab(s) 5 Milligram By Mouth Daily at bedtime as needed Insomnia ? Discharge Medications Unchanged Acetaminophen (Tylenol Extra Strength 500 mg oral tablet)2 tab(s) Oral every 8 hours as needed Pain, Mild. Albuterol (Albuterol (Eqv-Ventolin HFA) 90 mcg/inh inhalation aerosol)2 puff(s) Inhalation every 4 hours as needed cough, SOB, wheeze. Refills: 0. Pjxrohpftc43.5 Milligram Oral twice a day. Cholecalciferol (Vitamin D3 50,000 intl units oral capsule)1 capsule Oral every week. Refills: 0. Clonazepam (clonazePAM 1 mg oral tablet)1 tab(s) Oral 3 times a day. MA Pat checked.. Refills: 0. Durable Medical Equipment (Aerochamber)always use with inhaler. Refills: 0. Durable Medical Equipment (Bedside Commode)please dispense bedside commode Dx M48.00, M54.5, R10.9,M17.10; length of need 99. Refills: 0. Durable Medical Equipment (CBC, Basic metabolic panel)Anemia D64.9 Electrolyte imbalance E87. Refills: 0. Durable Medical Equipment (Comfort shield barrier cream cloths)Dx R32. Refills: 11. Durable Medical Equipment (Compression Stockings)surgical, calf length 20-30 mm Hg, Dx lower leg edema R60.0. Refills: 2. Durable Medical Equipment (Diapers)medium pull ups; Dx R32, N30.10. Refills: 11. Durable Medical Equipment (disposable andrea pads)Dx R32, N30.10. Refills: 11. Durable Medical Equipment (Home Blood Pressure Monitor)Use to measure blood pressure at rest daily.Dx HTN on Rx I10. Refills: 0. Durable Medical Equipment (medical alert bracelet)Dx M48, M51.36, G89.29. Refills: 0. Durable Medical Equipment (Nebulizer/Compressor)please dispense nebulizer supplies to be used with albuterol Dx J45.909. Refills: 11. Durable Medical Equipment (Nebulizer/Compressor)please dispense one nebulizer to be used with albuterol Dx J45.909. Refills: 0. Durable Medical Equipment (raised toilet seat)please dispense one raised toilet seat Dx M48, M54.16, M54.5. Refills: 0. Durable Medical Equipment (ready fresh bathing wipes)M48, M51.36, G89.29, R32. Refills: 11. Durable Medical Equipment (Shower Bar)please dispense shower bar Dx M48.00, M54.5, R10.9, M17.10; length of need 99. Refills: 0. Durable Medical Equipment (Side bed rails)DC M17.1, M54.16, M54.5, R60.0. Refills: 0. Durable Medical Equipment (Transfer Bench)Dx M48, M54.16, M54.5. Refills: 0. Durable Medical Equipment (Walker)Please dispense one front wheeled walker Dx M48, M54.16, M54.5. Refills: 0. Durable Medical Equipment (Wheelchair)Please dispense 1 large wheelchair with elevated leg rest; [id number], wt 100kg length of need 99mo Dx M17.1, M54.16. Refills: 0. Esomeprazole (esomeprazole 40 mg oral enteric coated capsule)1 capsule Oral Daily. Famotidine (famotidine 40 mg oral tablet)1 tab(s) Oral twice a day. fesoterodine (Fesoterodine 8 mg oral tablet, extended release)TAKE 1 TABLET BY MOUTH DAILY. Fluconazole (fluconazole 150 mg oral tablet)1 tab(s) Oral once. Refills: 0. Fluticasone (Arnuity Ellipta 100 mcg inhalation powder)1 inhalation Inhalation every 24 hours. to replace flovent. Refills: 11. Hydromorphone (HYDROmorphone 2 mg oral tablet)1 tab(s) Oral every 4 hours as needed as needed for pain. Hydromorphone (HYDROmorphone 2 mg oral tablet)TAKE 1 TABLET BY MOUTH EVERY 6 HOURS. HydrOXYzine (hydrOXYzine pamoate 25 mg oral capsule)1 capsule Oral Daily at Bedtime. Mesalamine (mesalamine 0.375 g oral capsule, extended release)4 capsule Oral 3 times a day. Miscellaneous Rx (AMLODIPINE TAB 2.5MG) Montelukast (Singulair 10 mg oral tablet)1 tab(s) Oral Daily in PM for 90 Days. Refills: 3. naloxegol (Movantik 25 mg oral tablet) Nortriptyline (nortriptyline 75 mg oral capsule)1 capsule Oral Daily at Bedtime for 90 Days. Refills: 1. Oxycodone (oxyCODONE 15 mg oral tablet)1 tab(s) Oral every 6 hours as needed Pain , Severe for 28 Days. Refills: 0. Oxycodone (Xtampza ER 18 mg oral capsule, extended release)3 capsule Oral every 12 hours for 28 Days. take with food; pt on CSA; may fill less; MassPat checked. Refills: 0. Pancrelipase (Creon 12,000 units oral delayed release capsule) Pantoprazole (pantoprazole 40 mg oral delayed release tablet)40 Milligram Oral twice a day for 14 Days. Refills: 0. Pantoprazole (pantoprazole 40 mg oral delayed release tablet)1 tab(s) Oral twice a day for 30 Days.to replace lansoprozole. Refills: 6. Quetiapine (QUEtiapine 100 mg oral tablet)TAKE 1 TABLET BY MOUTH TWICE DAILY. Sucralfate (sucralfate 1 gm oral tablet)1 tab(s) Oral twice a day. Tamsulosin (tamsulosin 0.4 mg oral capsule)1 capsule Oral Daily. Zolpidem (Ambien 5 mg oral tablet)1 tab(s) Oral Daily at Bedtime as needed Insomnia. Allergies Allergies ?(Active and Proposed Allergies Only) Pork? (Severity: Unknown severity, Onset: Unknown) Haldol? (Severity: Unknown severity, Onset: Unknown) ?Reactions: Agitation fentanyl topical? (Severity: Unknown severity, Onset: Unknown) ?Reactions: passed out sulfADIAZINE? (Severity: Unknown severity, Onset: Unknown) ?Reactions: rash sulfa drugs? (Severity: Unknown severity, Onset: Unknown) ?Reactions: rash sertraline? 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 (Severity: Unknown severity, Onset: Unknown) ?Reactions: She can't take NSAIDs secondary to gastric bypass Bactrim? (Severity: Unknown severity, Onset: Unknown) ?Reactions: rash ? PCP Follow-Up/Heads-Up Follow-up with your primary care doctor??and your GI doctor at [facility]. Future Appointments Tuesday 12:10 PM EST ?? Type: Return With: Tabatha SPENCER, Christina Zavaleta Where: [facility] [address] [place] [address] [address] [place] [address]- Status: Pending Hospital Course ??History of Present Illness 49 yo F with history of chronic abdominal pain in the setting of sleeve gastrectomy and recurrent abdominal surgeries-on chronic opioids, Takotsubo CM,??Anxiety, Bipolar disorder, asthma and GERD whopresents from home due to dark stool.? Patient states she called her GI doctor who told her to come straight to the emergency department for admission.?? She reports she had 3 episodes of dark stool for which she has pictures on her phone??which??she shows to manage looks like??dark brown??to greenish??soft??bowel movements and no bright red??blood seen..?? She reports associated nausea without any vomiting, and no bleeding through mouth, nose or urine..?? Patient endorses frustration that she has been having this ongoing chronic pain as well as expressing fear because she reports of anyone in her family from massive GI bleed.?? Besides little distress denied any chest pain, palpitations, fever, chills, vomiting,??constipation, diarrhea. ?? Arrival emergency department patient has been afebrile blood pressure 165/113 saturating appropriately room air.?? Lab work with CBC completed initially unremarkable and repeat showing a hemoglobin of 11.1.?? Otherwise unremarkable.?? CMP is grossly unremarkable. Review of Systems ROS is negative except for what has been written in the subjective.?? [1] ?? Saw examined this patient today on the . ??Briefly she is a 49-year-old female with a long history of multiple GI surgeries including multiple C- sections, bariatric surgeries,??she has a history of chronic abdominal pain is prescribed oxycodone and Dilaudid??by her??primary care doctor and alsoby one of her??GI doctors??at [facility]. ??In addition, she has a care plan that she identified and showed me that was written for her by [facility], where her??processor grain GI doctor bariatric surgeon and urologist are located. 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 ??For some reason she decided come to [facility] when she had abdominal pain. ?? She reported that she had acute abdominal pain the day of admission, with some dark stools, she wasconcern for GI bleeding and came to [facility]. ??Apparently she called her GI doctor told her to come to [facility]. ?? She has had some recent endoscopies,??she has a history of anastomotic surgeries for ?? Surgery, she takes chronic GI medicines including Protonix and??other medicines for antacids, hypertensive medicines, and she has history of Takotsubo's induced cardiomyopathy. ?? She has lost weight and has a left knee replacement. ??She says this limits her ability to ambulate. 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 ?? She came with abdominal pain she has had no additional bleeding,??her hemoglobin is slightly??lower,??from approximately??12 down to 10, unsure if this was related to dehydration or vomiting, howeverit was stable and there is generally??close to the same level of 9.8 versus 10 on admission. ?? There is no additional bleeding and she is??eating.?? She has abdominal pain in the epigastric and suprapubic area, she has no fevers or chills no shortness of breath or chest pain, her JVP is normal, her lungs are clear to auscultation, heart rate is regular rate and rhythm, there is no arrhythmias on the monitor and she has no evidence of any??fluid overload or heart failure. ?? There is no lower extremity??edema or swelling of the left lower extremity where she has her knee replacement. ?? No additional imaging was available, she is on multiple CAT scans, the most recent CAT scan was 02 February and there is no signs of bleeding or abnormality. ??She had some inflammation in the esophagus. ? Differential diagnosis for GI bleeding and dark stools could be anastomotic bleeding that one of her surgical sites. ??For this reason I placed a GI consult, if they see the patient is determined that she does not require an endoscopy, we can talk about pain management and discharge.?? If she is not going to get an endoscopy at [facility], the alternative for her??would be to go back to her GI doctor at [place] who has apparently been treating the patient for many years and knows her anatomy. ?? She is awake and alert and agrees to this plan. ??I gave her some pain medicines today,??the rest of her labs reviewed there is no signs of renal failure and there is no other metabolic abnormality that I can locate on her laboratory studies her abdominal exam??or physical exam. ?? I spoke to the patient she agreed to this plan, we will await the GI consultation and place discharge order if they are not planning an endoscopy. ?? In addition we will give her some pain medicines and a diet. ?? Will monitor for any additional GI bleeding while she is at [facility]. ?? 35 minutes were spent. ?? Thank you for allowing us to follow your patient. Objective Vital Signs?? Temperature: 97.9 DegF (03/04/25 06:35:00) Temperature Route: Oral (03/04/25 06:35:00) Pulse Rate: 69 bpm (03/04/25 06:35:00) Respiratory Rate: 16 br/min (03/04/25 06:35:00) Systolic Blood Pressure: 97 mm Hg (03/04/25 06:35:00) Diastolic Blood Pressure: 63 mm Hg (03/04/25 06:35:00) Blood pressure sites: Arm, right (03/04/25 06:35:00) Mean Arterial Pressure: 74 mm Hg (03/04/25 06:35:00) Pulse Pressure: 34 mm Hg (03/04/25 06:35:00) Oxygen Saturation: 100 % (03/04/25 06:35:00) Mode of Delivery (Oxygen): Room air (03/04/25 06:35:00) Early Warning Score: 3 (03/04/25 06:36:09) ? . Physical Exam See above for exam [facility] Pending Results No Pending Results Follow-Up Appointments Added Follow Up ?Time Frame ?Comments Heather Dowell MD Patient Instructions Follow-up with your GI doctor. Post Discharge Care Code Status: ??Full code ?? Discharge Prescriptions ?ePrescribed, 03/04/25 7:54:00 EST ?Order Comment:?? Home Health Face to Face ^HomeHealthFTF Results Discharge Labs BLOOD COUNT & DIFF WBC 4.9 k/mm3 ()?? 03/04/2025 00:47 RBC 3.38 m/mm3 (Low)?? 03/04/2025 00:47 Hgb 9.8 Gm/dL (Low)?? 03/04/2025 00:47 Hct 29.4 % (Low)?? 03/04/2025 00:47 MCV 87.0 femtoliters ()?? 03/04/2025 00:47 MCH 29.0 pg ()?? 03/04/2025 00:47 MCHC 33.3 Gm/dL ()?? 03/04/2025 00:47 Platelet Count 176 k/mm3 ()?? 03/04/2025 00:47 RDW-SD 43.7 femtoliters ()?? 03/04/2025 00:47 MPV 10.7 femtoliters ()?? 03/04/2025 00:47 Nucleated RBC (Automated) 0.0 #/100 WBC'S ()?? 03/04/2025 00:47 Abs. NRBC 0.0 k/mm3 ()?? 03/04/2025 00:47 Abs. Neut 3.3 k/mm3 ()?? 03/02/2025 12:20 Abs. Lymph 1.7 k/mm3 ()?? 03/02/2025 12:20 Abs. Bracken 0.5 k/mm3 ()?? 03/02/2025 12:20 Abs. Eo 0.0 k/mm3 ()?? 03/02/2025 12:20 Abs. Baso 0.0 k/mm3 ()?? 03/02/2025 12:20 Neut % 59.4 % ()?? 03/02/2025 12:20 Lymph % 30.7 % ()?? 03/02/2025 12:20 Bracken % 8.8 % ()?? 03/02/2025 12:20 Eos % 0.2 % ()?? 03/02/2025 12:20 Baso % 0.7 % ()?? 03/02/2025 12:20 Imm Gran 0.2 % ()?? 03/02/2025 12:20 Abs. Imm Gran 0.0 k/mm3 ()?? 03/02/2025 12:20 ?? CARDIAC High Sensitivity Troponin (HSTnT) <6 ng/L () 03/03/2025 04:48 ? CHEM GENERAL Sodium 140 mmol/L ()?? 03/04/2025 00:47 Potassium 3.5 mmol/L (Low)?? 03/04/2025 00:47 Chloride 106 mmol/L ()?? 03/04/2025 00:47 Bicarbonate Level 23 mmol/L ()?? 03/04/2025 00:47 Anion Gap 11 mmol/L ()?? 03/04/2025 00:47 Glucose Level 76 mg/dL ()?? 03/04/2025 00:47 BUN 11 mg/dL ()?? 03/04/2025 00:47 Creatinine-Blood 1.06 mg/dL (High)?? 03/04/2025 00:47 Estimated GFR Creatinine 65 ML/MIN/1.73 M2 ()?? 03/04/2025 00:47 Calcium 8.5 mg/dL (Low)?? 03/04/2025 00:47 Phosphorus 4.7 mg/dL (High)?? 03/03/2025 04:48 Magnesium 1.7 mg/dL ()?? 03/03/2025 04:48 Protein, Total 7.7 Gm/dL ()?? 03/02/2025 12:20 Albumin 4.3 Gm/dL ()?? 03/02/2025 12:20 AG Ratio 1.3 ()?? 03/02/2025 12:20 Alkaline Phosphatase 73 units/L ()?? 03/02/2025 12:20 Lipase, Serum/Plasma 32 units/L ()?? 03/02/2025 12:20 AST (SGOT) 24 units/L ()?? 03/02/2025 12:20 ALT (SGPT) 18 units/L ()?? 03/02/2025 12:20 Bilirubin, Total 0.3 mg/dL ()?? 03/02/2025 12:20 Lactate 1.2 mmol/L ()?? 03/02/2025 12:20 ? HEME OTHER Hold Blue Top SPECIMEN DISCARDED AFTER 4 HOURS. ()?? 03/02/2025 12:20 ? URINE OTHER Est Creatinine Clearance 59.24 mL/min ()?? 03/04/2025 02:09 ? 35??minutes spent on discharge [1]??Initial Evaluation Note; Delfino Lombardo MD 03/03/2025 03:20 EST Electronically Signed on 03/04/25 07:59 AM Rafal Rhoades DO Patient Care team information Care Team Personnel Name: Artemio Contreras RN Position: [facility] RN Member Role: Primary Care Nurse Name: Mauricio Hope RN Position: [facility] RN Member Role: Primary Care Nurse Name: Siria Lopes RN Position: [facility] RN Member Role: Primary Care Nurse Name: Tristin Hunt RN Position: [facility] RN Member Role: Primary Care Nurse Name: Tad Escobar RN Position: [facility] RN Member Role: Primary Care Nurse Name: Edenilson Puckett MD Position: [facility] TALENT RECRUITER MD Member Role: Lifetime TALENT RECRUITER Physician Name: Jovana Park RN Position: [facility] SN RN Member Role: Primary Care Nurse Name: Ana Maria Grady RN Position: [facility] RN Supv Member Role: Primary Care Nurse Name: Fabiana Williamson RN Position: [facility] RN Member Role: Primary Care Nurse Name: María Silverman RN Position: [facility] RN Member Role: Primary Care Nurse Name: Lina Delgado RN Position: [facility] RN Member Role: Primary Care Nurse Name: Opal Avendano RN Position: [facility] RN Member Role: Primary Care Nurse Name: Shola Chang RN Position: [facility] RN Member Role: Primary Care Nurse Name: Chidi Clark DO Position: [facility] Renal MD Member Role: Lifetime Consulting Physician Address: [address] [place] [address] [facility] [address] Telecom: Name: Mireya Torres RN Position: [facility] RN Member Role: Primary Care Nurse Name: Meagan Ball RN Position: [facility] RN Member Role: Primary Care Nurse Name: Starr Harper RN Position: [facility] AMB Nurse Member Role: Primary Care Nurse Name: Tiana Vicente RN Position: [facility] RN Member Role: Primary Care Nurse Name: Tristin Hill RN Position: [facility] RN Member Role: Primary Care Nurse Name: Nisreen Tristan RN Position: [facility] RN Member Role: Primary Care Nurse Name: Kelly Maddox RN Position: [facility] RN Member Role: Primary Care Nurse Name: Becki Mendoza LPN Position: [facility] RN Member Role: Primary Care Nurse Name: Mauro Salomon RN Position: [facility] RN Member Role: Primary Care Nurse Name: Heather Dowell MD Position: [facility] Physician - Primary Care Member Role: PCP Address: [address] [place], [place] [address] Telecom: Care Team Related Persons Name: MARYAN STYLES Name: MARYA ADRIAN Name: MORALES HOWELL Insurance Providers Guarantor name: EBONI HOWELL Health Plan Information #: 1 Payer: MEDICARE A INPT 26 Payer Identifier: NA Member Number: [id number] Group Number: NA Subscriber Identifier: [id number] Relationship to Subscriber: self Coverage Type: MEDICARE Coverage Verification Date: NA Telecom: NA Address: Health Plan Information #: 2 [facility] Payer Identifier: NA Member Number: [id number] Group Number: NA Subscriber Identifier: [id number] Relationship to Subscriber: self Coverage Type: MEDICAID Coverage Verification Date: NA Telecom: NA Address:
--- NOTE | 2025-03-06 11:57 | ED.GENADULT ---
HPI - General Adult General Chief complaint: Abdominal Pain Stated complaint: abd issues, recent GI bleed Related Data Home Medications ?Medication ?Instructions ?Recorded ?Confirmed albuterol sulfate 2.5 mg/3 mL 1 vial inhalation Q6H PRN 10/07/20 09/18/24 (0.083 %) solution for nebulization Shortness Of Breath Or Wheezing montelukast 10 mg tablet 1 tab PO DAILY 10/07/20 09/18/24 zolpidem 5 mg tablet 5 mg PO BEDTIME PRN Insomnia 09/25/21 09/18/24 albuterol sulfate 90 mcg/actuation 1 inh inhalation Q4H PRN Shortness 11/26/22 09/18/24 aerosol inhaler (Ventolin HFA) Of Breath clonazepam 1 mg tablet 1 mg PO TID@0800,1599,199904/05/24 09/18/24 nortriptyline 75 mg capsule 75 mg PO BEDTIME 04/05/24 09/18/24 quetiapine 100 mg tablet 100 mg PO BEDTIME 04/05/24 09/18/24 estradiol 0.01% (0.1 mg/gram) 1 g vaginal MOWEFR 04/09/24 09/18/24 vaginal cream fluocinolone 0.01 % topical cream 1 appl topical BID PRN Rash 04/09/24 09/18/24 fluoride (sodium) 1.1 % dental 1 appl PO DAILY 04/09/24 09/18/24 cream (Sodium Fluoride 5000 Plus) oxycodone 15 mg tablet 15 mg PO TID@0800,1599,199904/09/24 09/18/24 oxycodone myristate 18 mg capsule 54 mg PO BID@08,199904/09/24 09/18/24 sprinkle extended release 12hr(DON'T CRUSH) (Xtampza ER) scopolamine base 1 mg over 3 days 1 patch topical Q3D 04/09/24 09/18/24 transdermal patch fluticasone furoate 100 1 inh inhalation DAILY 06/04/24 09/18/24 mcg/actuation blister powder for inhalation (Arnuity Ellipta) quetiapine 50 mg tablet 100 mg PO QAM 01/07/25 carvedilol 12.5 mg tablet 12.5 mg PO BID 01/25/25 pantoprazole 40 mg tablet,delayed 40 mg PO BID 03/06/25 release Previous Rx's ?Medication ?Instructions ?Recorded fesoterodine 4 mg tablet,extended 4 mg PO DAILY 30 days #30 tabs 03/05/24 release 24 hr (Toviaz) acetaminophen 325 mg tablet 650 mg (2 x 325 mg) PO Q6H PRN 06/07/24 Pain, Mild 1-3,Fever,Headache #30 tabs naloxegol 25 mg tablet (Movantik) 25 mg PO QAM #30 tabs 06/07/24 sucralfate 1 gram tablet 1 g PO BIDAC #30 tabs 06/07/24 tamsulosin 0.4 mg capsule 0.4 mg PO BEDTIME help with 08/20/24 urinary flow #30 caps phenazopyridine 99.5 mg tablet 199 mg (2 x 99.5 mg) PO BID PRN 09/04/24 (Azo Urinary Pain Relief) pain with urination #20 tabs mesalamine 0.375 gram 1.5 g (4 x 0.375 gram) PO DAILY 12/18/24 capsule,extended release 24 hr #360 caps dicyclomine 10 mg capsule 10 mg PO TID #60 caps 01/07/25 omeprazole 40 mg capsule,delayed 40 mg PO DAILY #90 caps 01/09/25 release amlodipine 2.5 mg tablet 2.5 mg PO DAILY #90 tabs 01/16/25 hydromorphone 2 mg tablet 2 mg PO Q6H #3 tabs 01/21/25 (Dilaudid) sgsksu-eyeasevu-coapzmc(pork)12,000-38,000-60,000 2 cap PO TID #240 caps 01/21/25 unit capsule,del rel (Creon) food supplemt, lactose-reduced 2 ea PO TID #180 ea 01/25/25 (Ensure oral liquid) Allergies Allergy/AdvReac Type Severity Reaction Status Date / Time sertraline (From ZOLOFT) Allergy Intermediate prolonged Verified 03/06/25 12:02 QT interval Sulfa (Sulfonamide Allergy Intermediate RASH Verified 03/06/25 12:02 Antibiotics) (SULFA (SULFONAMIDE ANTIBIOTICS)) haloperidol (From Haldol) Allergy Mild unknown Verified 03/06/25 12:02 morphine (MORPHINE) Allergy Mild Rash Verified 03/06/25 12:02 NSAIDS (Non-Steroidal AdvReac Intermediate STOMACH Verified 03/06/25 12:02 Anti-Inflamma (NSAIDS UPSET (NON-STEROIDAL ANTI-INFLAMMA) fentanyl patch Allergy Severe Unresponsiv Uncoded 03/06/25 12:02 e PMFSH Past Medical History Medical History Low serum cortisol level Spinal stenosis HTN (hypertension) Multinodular goiter Decreased oral intake Takotsubo cardiomyopathy Burn injury Arthritis Low back pain Elevated cholesterol SOB (shortness of breath) Asthma Numbness Mood disorder IBS (irritable bowel syndrome) OAB (overactive bladder) Sleep apnea Hypersomnia Anxiety Surgical History Hx of gastric bypass Hx of total knee replacement Hx of knee surgery Hx of hernia repair History of cystoscopy Hx of laparoscopic gastric banding Hx of hysterectomy History of H/O gastric bypass Hx of endoscopy History of colonoscopy Family History Family History Father Hx of colon cancer, stage IV Mother Family history of high blood pressure Social History Social History Household Members: Children Household Members Other:: My son Housing: Apartment Are you a primary senior resident care director to a significant other at home: No Do you presently have visiting nurse or other home services: Yes (youngest dtr is head cashier) Alcohol intake: never Comment: previously medicated Patient Tobacco Use Status: Never used Tobacco e-Cigarette/Vaping Use: Never Used Second Hand Smoke Exposure: No Substance Use Type: Marijuana Advance Directives: No Advance Directives Information Provided: No service: No Physical Exam ED Vital Signs: BMI result Body Mass Index 21.3 Course Course Course Narrative: This is a rapid medical exam performed by Melo Lawton NP: Additional HPI, ROS, PE not included below will be deferred to primary provider. Patient is a 49-year-old female presenting to the ED stating that she was referred to the ED by Dr. Murillo. States that she was just at [facility] for a GI bleed. Complains of lower abdominal pain for the past 3 days. States was told by [facility] to come here for Dilaudid. Plan: labs, UA Patient left the emergency department before myself or any of the other clinicians could review or explain physical exam findings, test results, need or lack there of for additional testing, treatment options, or a treatment plan. Discharge Plan Discharge Clinical Impression: Diagnosis unknown Patient Disposition: Left W/O Completing Treatment Prescriptions: No Action tamsulosin 0.4 mg capsule 0.4 mg PO BEDTIME Qty: 30 3RF mesalamine 0.375 gram capsule,extended release 24hr 1.5 g PO DAILY Qty: 360 0RF omeprazole 40 mg capsule,delayed release(DR/EC) 40 mg PO DAILY Qty: 90 1RF amlodipine 2.5 mg tablet 2.5 mg PO DAILY Qty: 90 4RF Ensure Liquid 2 ea PO TID Qty: 180 2RF albuterol sulfate 2.5 mg /3 mL (0.083 %) solution for nebulization 1 vial inhalation Q6H PRN (Reason: Shortness Of Breath Or Wheezing) montelukast 10 mg tablet 1 tab PO DAILY Arnuity Ellipta 100 mcg/actuation blister with device 1 inh INHALATION DAILY sucralfate 1 gram Tablet 1 g PO BIDAC Qty: 30 0RF acetaminophen 325 mg Tablet 650 mg PO Q6H PRN (Reason: Pain, Mild 1-3,Fever,Headache) Qty: 30 0RF Movantik 25 mg tablet 25 mg PO QAM Qty: 30 0RF Rx Instructions: must be taken on empty stomach; no food 1 hr after or 2-3 hrs before dose Azo Urinary Pain Relief 99.5 mg tablet 199 mg PO BID PRN (Reason: pain with urination) Qty: 20 1RF Rx Instructions: Must administer with a meal and drink 6-8 oz of water with each dose fluocinolone 0.01 % cream 1 appl topical BID PRN (Reason: Rash) oxycodone 15 mg tablet 15 mg PO TID@0800,1600,2000 estradiol 0.01 % (0.1 mg/gram) cream 1 g vaginal MOWEFR scopolamine base 1 mg over 3 days patch 3 day 1 patch topical Q3D Patient Comments: 06/04/24: took off today fluoride (sodium) [Sodium Fluoride 5000 Plus] 1.1 % cream 1 appl PO DAILY Xtampza ER 18 mg cap,sprinkl,ER12hr(DONT CRUSH) 54 mg PO BID@0800,1999 zolpidem 5 mg tablet 5 mg PO BEDTIME PRN (Reason: Insomnia) fesoterodine [Toviaz] 4 mg tablet extended release 24 hr 4 mg PO DAILY 30 Days Qty: 30 4RF quetiapine 100 mg tablet 100 mg PO BEDTIME nortriptyline 75 mg capsule 75 mg PO BEDTIME clonazepam 1 mg tablet 1 mg PO TID@0800,1600,1999 quetiapine 50 mg tablet 100 mg PO QAM albuterol sulfate [Ventolin HFA] 90 mcg/actuation HFA aerosol inhaler 1 inh inhalation Q4H PRN (Reason: Shortness Of Breath) dicyclomine 10 mg capsule 10 mg PO TID Qty: 60 2RF pantoprazole 40 mg tablet,delayed release (DR/EC) 40 mg PO BID Creon 12,000-38,000 -60,000 unit capsule,delayed release(DR/EC) 2 cap PO TID Qty: 240 2RF Rx Instructions: administer with meals and/or snacks hydromorphone [Dilaudid] 2 mg tablet 2 mg PO Q6H Qty: 3 0RF Rx Instructions: Partial Fill upon patient request. carvedilol 12.5 mg tablet 12.5 mg PO BID Discharge Date/Time: 03/06/25 13:51
[2025-03-06 11:59] VITALS: BP 133/58; PULSE 85; RESP 16; TEMP 36.6; O2SAT 98; BMI 21.3
== END 2025-03-06 13:51 | disposition left against medical advice (07) ==
PROVIDERS: Emergency Provider Emergency Medicine; PCP Nurse Practitioner Family
DX: R10.30 Lower abdominal pain, unspecified (principal); I10 Essential (primary) hypertension; J45.909 Unspecified asthma, uncomplicated; R06.02 Shortness of breath
CPT/HCPCS: 99212; 99281